=== PATIENT | female | born 1950 | race Caucasian/White ===

== ENCOUNTER → 2017-10-17 07:08 | Outpatient (CLI) | payer MEDICARE, BC, SELFPAY ==
[2017-10-17 07:27] LABS: Abs Immature Grans 0.03 k/cumm (0.0-0.09); HCT 41.2 % (36.0-46.0); HGB 13.4 g/dL (12.0-15.5); Mean Corp. HGB Concentration 32.5 g/dL (32.0-36.0); Mean Corpuscular Hemoglobin 29.5 pg (27.0-33.0); Mean Corpuscular Volume 90.5 fL (80-95); Mean Platelet Volume 9.9 fL (8.0-11.0); Platelet Count 195 x1000/uL (130-400); RBC 4.55 m/cumm (4.00-5.20)
[2017-10-17 07:38] LABS: ALT 24 U/L (12-78); AST 19 U/L (15-37); Albumin 3.5 g/dL (3.4-5.0); Alkaline Phosphatase 86 U/L (46-116); Anion Gap 9.2 mmol/L (3-11); BUN 14 mg/dL (7-18); Bilirubin, Total 0.4 mg/dL (0.2-1.0); CO2 28.8 mmol/L (21.0-32.0); CREATININE 0.83 mg/dL (0.55-1.02); Calcium 8.6 mg/dL (8.5-10.1); Chloride 101 mmol/L (98-107); Glucose 91 mg/dL (70-100); Potassium 4.1 mmol/L (3.5-5.1); Sodium 139 mmol/L (136-145); Total Protein 7.8 g/dL (6.4-8.2)
[2017-10-17 07:58] LABS: White Blood Cell Count 1.92 k/cumm (4.4-10.8)
[2017-10-17 07:59] LABS: Absolute Basophil Count 0.02 k/cumm (0.0-0.2); Absolute Lymphocyte Count 1.27 k/cumm (1.2-3.4); Absolute Monocyte Count 0.33 k/cumm (0.11-0.7); Absolute Neutrophil Count 0.25 k/cumm (1.2-6.7); Atypical Lymphocytes % 18
[2017-10-17 08:00] LABS: Diff Comment Manual Differential; RBC Morphology Normal
== END ==
PROVIDERS: PCP Family Medicine; Visit Provider Internal Medicine Hematology & Oncology
DX: D72.819 Decreased white blood cell count, unspecified (principal); D70.9 Neutropenia, unspecified; C91.Z0 Other lymphoid leukemia not having achieved remission
CPT/HCPCS: 36415; 80053; 85025

== ENCOUNTER 2018-08-07 08:15 | Outpatient (CLI) | payer MEDICARE, BC, SELFPAY ==
[2018-08-07 09:05] LABS: Absolute Eosinophil Count 0.01 k/cumm (0.0-0.7); Absolute Lymphocyte Count 1.14 k/cumm (1.2-3.4); Absolute Monocyte Count 0.49 k/cumm (0.11-0.7); Eosinophils % 0.5; HCT 42.3 % (36.0-46.0); HGB 13.5 g/dL (12.0-15.5); Lymphocytes % 59.7; Mean Corp. HGB Concentration 31.9 g/dL (32.0-36.0); Mean Corpuscular Hemoglobin 29.2 pg (27.0-33.0); Mean Corpuscular Volume 91.4 fL (80-95); Monocytes % 25.7; Neutrophils % 14.1; Platelet Count 196 x1000/uL (130-400); RBC 4.63 m/cumm (4.00-5.20); RBC Distribution Width 13.2 % (11.7-14.6)
[2018-08-07 09:21] LABS: Absolute Neutrophil Count 0.27 k/cumm (1.2-6.7); White Blood Cell Count 1.91 k/cumm (4.4-10.8)
[2018-08-07 09:22] LABS: Diff Comment Agrees w/ Instrument; RBC Morphology Normal
== END 2018-08-07 08:35 ==
PROVIDERS: PCP Family Medicine; Visit Provider Internal Medicine Hematology & Oncology
DX: D70.9 Neutropenia, unspecified (principal); C91.Z0 Other lymphoid leukemia not having achieved remission
CPT/HCPCS: 85025

== ENCOUNTER 2019-08-11 11:11 | Emergency (ER) | payer MEDICARE, BC, SELFPAY ==
[2019-08-11 11:23] VITALS: BP 145/72; PULSE 88; RESP 24; TEMP 36.7; O2SAT 96
--- NOTE | 2019-08-11 11:45 | DI.RAD_ITS ---
EXAM: XR PORTABLE CHEST AP CLINICAL HISTORY: fever. TECHNIQUE: 2D digital imaging was performed. COMPARISON: CR CHEST 2 VIEWS PA,LAT from 09/14/2013 FINDINGS: LUNGS: Clear. No pleural abnormality seen. HEART: Normal. MEDIASTINUM: Normal. OTHER FINDINGS: None. IMPRESSION: No acute pulmonary findings. DATA REPOSITORY: RADIATION DOSE DELIVERED:
--- NOTE | 2019-08-11 11:51 | W.ED.GENAD ---
Discharge Plan Disposition Patient Disposition: HOME Condition: Stable Discharge Details Chief Complaint: Abd Prob Clinical Impression: Colitis Primary Care Provider: Julia Chatterjee ED Provider: Caridad Ayoub Home Meds and New Rx's Prescriptions: No Action acetaminophen 500 mg Capsule 500 mg PO Q6H PRNRF: 0 Discharge Instructions Additional Instructions: Drink salty broths, pedialyte, gatorade or electrolyte containing fluids. advance diet as tolerated. Stay well-hydrated. Return for any concerns of dehydration. Avoid gluten. Your CT scan reveals colitis. You will need a colonoscopy for further evaluation of your bowel. Please follow-up with surgery to arrange for colonoscopy as discussed. Have recheck with your primary care doctor in the next 3 to 5 days for any persistence of your symptoms. Return to the emergency room for any worsening, alarming symptoms or increase in pain, persistent fevers or for worsening if needed sooner as discussed Referrals: Jocelynn Greene MD [ [facility] STAFF PHYSICIAN] - Discharge Data Discharge Date/Time-TO BE ENTERED AT DEPARTURE: 08/11/19 15:41 Medical Decision Making <ELBA Rodríguez - Last Filed: 08/15/19 21:25> This is a 68-year-old patient presenting to the emergency room for 2 days of malaise, fatigue, nausea and vomiting. Patient has described 4 episodes of vomiting. She did report some abdominal pain yesterday which has since resolved today. Patient does report several episodes of watery diarrhea. Patient reports feeling quite dehydrated and significantly fatigued. Does report abdominal pain which was diffuse yesterday which has since resolved. Patient does report blood tinged with diarrhea. Reports she felt she likely had a hemorrhoid. Denies any rectal pain. Of note patient is reporting significant fatigue. Patient does report concern of dehydration. Fevers reported for the last 2 days. Patient does report some sweats and tremulous sensation. Denies any obvious pain at this time. Patient's previous medical chart noted neutropenia. Patient reports she does [place] [facility] and is due for labs questioning a underlying leukemia. Denies history of treatment for leukemia. Denies daily meds. Patient denies any obvious covert exposures. Denies any rash. Denies dysuria, urgency or frequency of urination. Denies hematuria. No other concerns or complaints at this time. On initial evaluation of the patient patient is uncomfortable, patient does have notable abdominal pain with palpation. We will plan to obtain labs as well as CT imaging of patient's abdomen. Vital signs reviewed. Patient provided IV fluid. Patient's labs revealed leukopenia which patient is aware of, she has plan to follow [place] [facility] known leukopenia. Patient's electrolytes reveal no significant abnormality. Renal function normal. consistent with dehydration. Patient feeling significantly improved after IV fluid. Patient originally complaining of significant fatigue. Patient reports she is feeling much closer to her baseline. CT results revealed colitis of the rectum to sigmoid colon. Nothing to indicate complication based on CT results. Discussed CT results as well as labs with patient. Made patient aware of recommendation for colonoscopy to rule out possible ulcerative colitis or Crohn's on an outpatient basis. Will provide referral to surgeon and place patient on follow-up list. Patient prefers discharge home at this time as she does feel significantly improved. We will plan to promptly follow-up with PCP. We will continue rehydration orally and plan for bowel rest. Patient agrees with this plan of care. Patient stable and feels appropriate for discharge home. The patient was stable and requested discharge. Prior to discharge, my usual and customary return precautions were reviewed with the patient - this included follow-up instructions and reasons to return to the Emergency Department if conditions worsens, does not improve as expected, or other new concerns arise. <Jhon Bennett MD - Last Filed: 08/11/19 17:47> Patient seen, examined, discussed with Ms Ayoub. Agree with her assessment and plan of care. Reviewed CT with Dr. Man. There is evidence of colitis at the rectosigmoid. Note of small hepatic cyst that will require repeat CT scan in follow-up. Please see formal report. HPI <ELBA Rodríguez - Last Filed: 08/15/19 21:25> General Date/Time Provider Initiated Documentation: 08/11/19 11:14. HPI Narrative: This is a 68-year-old patient presenting to the emergency room for 2 days of malaise, fatigue, nausea and vomiting. Patient has described 4 episodes of vomiting. She did report some abdominal pain yesterday which has since resolved today. Patient does report several episodes of watery diarrhea. Patient reports feeling quite dehydrated and significantly fatigued. Denies obvious headache does report some dizziness when ambulating. Patient denies obvious vision change, blurred vision. Denies sore throat, chest pain with difficulty breathing shortness of breath or wheezing. No increase in respiratory effort. Denies any cough. Denies back pain. Does report abdominal pain which was diffuse yesterday which has since resolved. Patient does report blood with diarrhea. Reports she felt she likely had a hemorrhoid. Denies any rectal pain. Patient denies any lower extremity swelling. Of note patient is reporting significant fatigue. Fevers reported for the last 2 days. Patient does report some sweats and tremulous sensation. Denies any obvious pain at this time. Patient's previous medical chart noted neutropenia. Patient reports she does [place] [facility] and is due for labs questioning a underlying leukemia. Denies history of treatment for leukemia. Denies daily meds. Patient denies any obvious covert exposures. Denies any rash. Denies dysuria, urgency or frequency of urination. Denies hematuria. No other concerns or complaints at this time. Related Data Home Medications Medication Instructions Recorded Confirmed acetaminophen 500 mg PO Q6H PRN 08/12/19 08/12/19 Allergies Allergy/AdvReac Type Severity Reaction Status Date / Time gluten Allergy Unverified 08/12/19 13:36 methialate Allergy Severe blood Uncoded 08/12/19 13:36 poisoning General Stated Complaint: Abd Prob SNEHAL: 3 Review of Systems <ELBA Rodríguez - Last Filed: 08/15/19 21:25> All systems reviewed & are unremarkable except as noted in HPI and below PFSH <ELBA Rodríguez - Last Filed: 08/15/19 21:25> Medical History (Updated 08/15/19 @ 14:04 by Devora Esteban MD) Chronic leukopenia (Acute) Diarrhea (Acute) Fever and chills (Acute) Hx of chronic ulcerative colitis (Acute) Not on medications Large granular lymphocyte disorder (Acute) Surgical History (Updated 08/12/19 @ 20:04 by Alicia Hayes DO) History of bone marrow biopsy (Acute) 2016 [facility] [place] Hx of colonoscopy (Chronic) 2011 @ [facility] [place] Social History Smoking/Tobacco Use Status: Never Alcohol Intake: current Alcohol Intake frequency: a few times a week Alcohol type: hard liquor Drug use: Never Do you feel safe at home: Yes Do you feel safe in your relationship?: Yes Exam <ELBA Rodríguez - Last Filed: 08/15/19 21:25> Narrative Exam Narrative: CONST: Somnolent, in no acute distress. Alert and oriented x3. HENMT: Head nomocephalic, normal to inspection. Atraumatic. Hearing grossly normal. External ear canal no erythema or swelling. TM normal bilaterally. Nose normal to inspection. No rhinnorhea. Normal facial exam. Oral mucosa and tongue somewhat dry appearing mucous membranes. Dentition normal. Normal posterior oropharynx. Uvula midline. EYES: General normal appearance. Alignment normal. Eyelids normal. Conjunctiva normal. Sclera normal. PERRL. NECK: Normal visual inspection. FROM. No lymphadenopathy. Trachea midline. No Midline tenderness. CHEST: Normal insepection of the chest. RESP: Normal respiratory effort. Speaking full sentences. No cough. No wheezing. No retractions. Clear to auscaltation. Breath sound equal and present bilaterally. CARDIO: No JVD. Normal PMI. Regular Rate. Regular Rhythm. Normal peripheral pulses. GI: Normal inspection of abdomen. No distension. Soft. Nontender. Bowel sounds present in all 4 quadrants. No rebound. No gaurding. Guaiac positive MUSCULOSKELETAL: Normal Gait. FROM of all extremities. Distal neurovascularly intact. Sensation intact distally. SKIN: Normal. Dry. No rashes. NEURO: Alert and awake. Speech clear. Alert and oriented x 3. Speech is clear. Cranial nerves intact as tested III - XI. No visual field cuts. Normal heel-almeida test. No Nystagmus. Strength intact in all extremities. Sensation intact in all extremities. PSYCH: Normal affect. Cooperative. Course <ELBA Rodríguez - Last Filed: 08/15/19 21:25> Vital Signs Vital signs: Vital Signs Temperature 36.7 C 08/11/19 11:23 Pulse 88 08/11/19 11:23 Respiratory Rate 24 08/11/19 11:23 Blood Pressure 145/72 H 08/11/19 11:23 Pulse Oximetry 96 08/11/19 11:23 Temperature 36.7 C 08/11/19 11:23 Temperature Source Skin 08/11/19 11:23 Pulse 88 08/11/19 11:23 Respiratory Rate 24 08/11/19 11:23 Respiratory Effort Non-Labored 08/11/19 11:30 Blood Pressure 145/72 H 08/11/19 11:23 Blood Pressure Position Sitting 08/11/19 11:23 Pulse Oximetry 96 08/11/19 11:23 Oxygen Delivery Method Room Air 08/11/19 11:23 Oxygen Flow Rate 0 08/11/19 11:23 Pain Level 0 08/11/19 11:23
[2019-08-11] MEDS: Normal Saline 1,000 ML 1000 ML IV ×2 (11:57→13:57)
[2019-08-11 12:01] LABS: Lactate 0.9 mmol/L (0.6-1.4)
[2019-08-11 12:09] LABS: Bilirubin Negative (Negative); Blood Small (Negative); Clarity Clear (Clear); Glucose Negative (Negative); Ketones 40 mg/dL (Negative); Leukocyte Esterase Negative (Negative); Nitrite Negative (Negative); Specific Gravity 1.025 (1.005-1.025); Urobilinogen 0.2 EU/dL (Up TO 0.2); pH 5.5 (5-8)
[2019-08-11 12:20] LABS: ALT 23 U/L (14-59); AST 21 U/L (15-37); Albumin 3.6 g/dL (3.4-5.0); Alkaline Phosphatase 85 U/L (46-116); Anion Gap 8.2 mmol/L (3-11); BUN 10 mg/dL (7-18); Bilirubin, Total 0.7 mg/dL (0.2-1.0); CO2 27.8 mmol/L (21.0-32.0); CREATININE 0.92 mg/dL (0.55-1.02); Chloride 96 mmol/L (98-107); Glucose 129 mg/dL (74-106); Lipase 86 U/L (73-393); Potassium 3.7 mmol/L (3.5-5.1); Sodium 132 mmol/L (136-145); Total Protein 8.3 g/dL (6.4-8.2)
[2019-08-11 12:25] LABS: Epithelial Cells Rare HPF (Negative); Other Cells Few Transitional (Negative); WBC 0-2 HPF (0-5)
[2019-08-11 12:27] LABS: C & S Indicated? C&S Done As Ordered; Casts Negative LPF (Negative); Mucus Negative (Negative)
[2019-08-11 13:35] LABS: Abs Immature Grans 0.19 k/cumm (0.0-0.09); HCT 38.9 % (36.0-46.0); HGB 12.8 g/dL (12.0-15.5); Mean Corp. HGB Concentration 32.9 g/dL (32.0-36.0); Mean Corpuscular Hemoglobin 28.6 pg (27.0-33.0); Mean Corpuscular Volume 86.8 fL (80-95); Mean Platelet Volume 10.5 fL (8.0-11.0); RBC 4.48 m/cumm (4.00-5.20); RBC Distribution Width 12.9 % (11.7-14.6); White Blood Cell Count 2.82 k/cumm (4.4-10.8)
[2019-08-11 13:40] LABS: Absolute Lymphocyte Count 0.48 k/cumm (1.2-3.4); Absolute Monocyte Count 1.33 k/cumm (0.11-0.7); Absolute Neutrophil Count 0.93 k/cumm (1.2-6.7); Atypical Lymphocytes % 6
[2019-08-11 13:41] LABS: Diff Comment Manual Differential; Polychromasia Present
[2019-08-11] MEDS: Acetaminophen 500 MG TAB PO (13:57)
--- NOTE | 2019-08-11 14:10 | DI.CT_ITS ---
EXAM: CT ABDOMEN AND PELVIS W CLINICAL HISTORY: FEVER, DIARRHEA, ABD PAIN TECHNIQUE: CT examination of the abdomen and pelvis was performed with bolus infusion of 87 cc of Om nipaque 350. COMPARISON: No exams were available for comparison FINDINGS: Images obtained through the lung bases are unremarkable. There is a 16 millimeter in diameter low-attenuation right hepatic lobe lesion, this is indeterminate , possible hemangioma; follow-up multiphasic hepatic CT suggested to exclude neoplastic disease. Gallbladder and bile ducts are CT normal. Pancreas appears normal. Spleen appears normal. Adrenals and kidneys are unremarkable, no renal mass, hydronephrosis, nephrolithiasis, or ureterolithiasis. Urinary bladder appears normal. No abdominal or pelvic adenopathy seen. No abdominal wall hernia seen. Appendix is normal. There is marked wall edema of the rectosigmoid with some question of straightened featureless appeara nce of the colonic wall of the rectosigmoid region; this appearance could be seen in ulcerative colit is. The remainder of the colon has an unremarkable mucosal appearance. Note is made of apparent mil d edema of the wall of the terminal ileum; Crohn's disease would also have to be considered No evidence of obstruction. Remaining small and large bowel is unremarkable. FLIGHT ATTENDANT/INFLIGHT SUPERVISOR structures unremar kable for age. IMPRESSION: Colonic wall edema involving the rectosigmoid, somewhat featureless appearance of the distal colon is noted; this appearance may be seen in ulcerative colitis. Note is also made of mild edema of the wall of the terminal ileum; this could be seen in Crohn's ente ritis. Colonoscopy suggested for further evaluation.
[2019-08-11] MEDS: Omnipaque 350 MG/ML 100 ML BTL IJ (14:16)
[2019-08-11] MEDS: Normal Saline Flush 10 ML SYR IVP (14:18)
[2019-08-11 15:38] VITALS: TEMP 36.1
--- NOTE | 2019-08-11 15:46 | NUR.NOTE ---
Nursing Note: Referral sent to surgery
[2019-08-11 22:10] LABS: COVID-19 RT-PCR UVMMC Result Negative (Negative)
--- NOTE | 2019-08-12 13:07 | NUR.NOTE ---
Nursing Note: Patient's just called stating that after resting she woke up with uncontrolled shivering and a fever. Told to call if any problems or questions. Spoke with Neo Dowd RN and told him that the patient needed to be seen again due to the new symptoms. He stated he would bring her right up. Rhiannon Phillips.
== END 2019-08-11 15:41 | disposition home or self-care (01) ==
PROVIDERS: Emergency Provider Physician Assistant; PCP Family Medicine
DX: K52.89 Other specified noninfective gastroenteritis and colitis (principal); D70.9 Neutropenia, unspecified; R19.5 Other fecal abnormalities; R50.9 Fever, unspecified
CPT/HCPCS: 36415; 80053; 83690; 86850; 86900; 86901; 87040; 96360; 96361; 99285; U0003; 71045; 74177; 81003; 81015; 83605; 85025; 87086; 99284; J3490

== ENCOUNTER 2019-08-12 13:24 | Inpatient (IN) | payer MEDICARE, BC, SELFPAY ==
[2019-08-12] VITALS (31 sets, daily range): BP systolic 79–115; BP diastolic 40–70; PULSE 58–98; RESP 14–20; TEMP 36.4–39; O2SAT 93–98
--- NOTE | 2019-08-12 13:48 | W.ED.GENAD ---
Discharge Plan Disposition Patient Disposition: [facility] INPATIENT Condition: Stable Discharge Details Chief Complaint: Fever Clinical Impression: Ulcerative colitis Primary Care Provider: Julia Chatterjee ED Provider: John Bennett Home Meds and New Rx's Prescriptions: No Action acetaminophen 500 mg Capsule 500 mg PO Q6H PRNRF: 0 Medical Decision Making 68-year-old female who was seen in the emergency department yesterday with a history of 2 days of nausea, vomiting, malaise and watery diarrhea. She had laboratories and CT imaging, was diagnosed with colitis, felt improved and was discharged home. Through the night she developed a shaking chill and rigor with temperature to 102.2 degrees this morning. She is dehydrated in appearance, febrile, but vital signs are stable. She does not have subjective nor objective evidence of abdominal discomfort. IV placed, fluids initiated, patient given antipyretic. Laboratories including blood cultures and lactate obtained. 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 Records also note diagnosis of ulcerative colitis around 2011. Patient has a mildly elevated lactic acidosis. The remainder of her laboratories reveal a white count is risen to 3.2, hematocrit 35.9, platelets 141. Sodium 131, potassium 3.5, chloride 97, bicarb 24. Renal function is unremarkable. Note of CRP greater than 25. Finally, note is made of negative COVID screen performed yesterday. Given the concern for bacteremia in the setting of an exacerbation of ulcerative colitis, antibiotics were initiated with ciprofloxacin and Flagyl. The patient will benefit from medical admission and may need flexible sigmoidoscopy with possible biopsy. I did discuss the case with Dr. Multani as well as Dr. Hayes who is in agreement with admission and management. Lab Data Lab results reviewed: Yes I reviewed the patient's lab results. HPI General Mode of arrival: ambulatory. Date/Time Provider Initiated Documentation: 08/12/19 13:32. Limitations to Documentation: no limitations. Information obtained by: patient and family. History of Present Illness 68 year old F presents to the emergency department with the chief complaint of Diagnosed with colitis yesterday, shaking chills and fever today., described as moderate, Patient started experiencing this hour(s) and it has been intermittent. No relieving factors improve symptom(s), No exacerbating factors reported . Patient notes fever/chills and weakness; denies cough and syncope. Patient did receive the following treatments prior to arrival, other (Tylenol at 3 in the morning) Related Data Home Medications Medication Instructions Recorded Confirmed acetaminophen 500 mg PO Q6H PRN 08/12/19 08/12/19 Allergies Allergy/AdvReac Type Severity Reaction Status Date / Time gluten Allergy Unverified 08/12/19 13:36 methialate Allergy Severe blood Uncoded 08/12/19 13:36 poisoning General Stated Complaint: Fever SNEHAL: 2 Review of Systems Narrative: 7 systems reviewed and otherwise negative. COVID-19 PCR negative yesterday [facility] Social History Smoking/Tobacco Use Status: Never Alcohol Intake: current Alcohol Intake frequency: a few times a week Alcohol type: hard liquor Drug use: Never Do you feel safe at home: Yes Do you feel safe in your relationship?: Yes Exam Narrative Exam Narrative: GEN: awake, alert, oriented 3. Pleasant, well groomed, interactive. HEAD: Normocephalic, atraumatic ENT: oropharynx with dry mucous membranes, External ear exam unremarkable EYES: PERRL, EOMI NECK: Full ROM, no ELIZA, no menigismus CHEST/RESP: Nontender, clear to auscultation bilateral, no wheeze/rhonchi/rales CARDIOVASCULAR: Borderline tachycardia RRR, no murmur, rub marietta. 2+ Rad pulse bilateral ABDOMEN: Soft, nontender, no mass. +Bowel sounds EXT: Full ROM, no edema, no rash Neuro: Grossly normal neurologic exam, conversant, interactive. Psych: Speech fluent, thoughts congruent, affect normal Course Vital Signs Vital signs: Vital Signs Temperature 39.0 C H 08/12/19 13:31 Pulse 98 H 08/12/19 13:31 Respiratory Rate 08/12/19 13:31 Blood Pressure 115/60 08/12/19 13:31 Pulse Oximetry 94 L 08/12/19 13:31 Temperature 39.0 C H 08/12/19 13:31 Temperature Source Oral 08/12/19 13:31 Pulse 98 H 08/12/19 13:31 Respiratory Rate 20 08/12/19 13:31 Respiratory Effort Non-Labored 08/12/19 13:34 Blood Pressure 115/60 08/12/19 13:31 Blood Pressure Position Supine 08/12/19 13:31 Pulse Oximetry 94 L 08/12/19 13:31 Oxygen Delivery Method Room Air 08/12/19 13:31 Oxygen Flow Rate 0 08/12/19 13:31 Pain Level 0 08/12/19 13:31
[2019-08-12 14:16] LABS: HCT 35.9 % (36.0-46.0); HGB 11.7 g/dL (12.0-15.5); Mean Corp. HGB Concentration 32.6 g/dL (32.0-36.0); Mean Corpuscular Hemoglobin 28.5 pg (27.0-33.0); Mean Corpuscular Volume 87.6 fL (80-95); Platelet Count 141 x1000/uL (130-400); RBC Distribution Width 13.1 % (11.7-14.6); White Blood Cell Count 3.29 k/cumm (4.4-10.8)
[2019-08-12 14:20] LABS: Lactate 2.7 mmol/L (0.6-1.4)
[2019-08-12] MEDS: Normal Saline 1,000 ML 1000 ML IV (14:25)
[2019-08-12] MEDS: Acetaminophen 500 MG TAB 1000 MG PO (14:30)
[2019-08-12] MEDS: Normal Saline Flush 10 ML SYR IVP (14:32)
[2019-08-12] MEDS: CIPROFLOXACIN 400 MG/200 ML BAG 200 MG IVPB (14:32)
[2019-08-12 14:36] LABS: ALT 32 U/L (14-59); AST 33 U/L (15-37); Alkaline Phosphatase 78 U/L (46-116); Anion Gap 9.3 mmol/L (3-11); BUN 10 mg/dL (7-18); Bilirubin, Total 1.1 mg/dL (0.2-1.0); CO2 24.7 mmol/L (21.0-32.0); CREATININE 0.93 mg/dL (0.55-1.02); Calcium 8.7 mg/dL (8.5-10.1); Chloride 97 mmol/L (98-107); Glucose 112 mg/dL (74-106); Magnesium 1.5 mg/dL (1.8-2.4); Potassium 3.5 mmol/L (3.5-5.1); Sodium 131 mmol/L (136-145); Total Protein 7.2 g/dL (6.4-8.2)
[2019-08-12 14:44] LABS: Absolute Lymphocyte Count 0.16 k/cumm (1.2-3.4); Absolute Neutrophil Count 3.13 k/cumm (1.2-6.7); Diff Comment Manual Differential; RBC Morphology Normal
[2019-08-12 14:52] LABS: C-Reactive Protein > 25.00 mg/dL (0.0-0.3)
[2019-08-12] MEDS: metroNIDAZOLE 500 MG/100 ML BAG 100 MG IVPB ×2 (15:45→21:46)
[2019-08-12] MEDS: Normal Saline 1,000 ML 150 ML IV (15:50)
--- NOTE | 2019-08-12 15:57 | NUR.NOTE ---
pt given dry toast - gluten free Nursing Note:
[2019-08-12] MEDS: methylPREDNISolone SUCC 40 MG VIAL 20 MG IVP ×2 (16:11→23:59)
--- NOTE | 2019-08-12 16:13 | W.SURGCON ---
Date of service: 08/12/19 Time of Service: 16:13 Assessment and Plan Assessment and plan (1) Large granular lymphocyte disorder: Status: Acute Assessment and plan: need to d/w w/H-O and see if need to give Neulasta prior to procedure. (2) Colitis: Status: Acute Assessment and plan: seen on CT CRP>25 pt hx pt s/s are diff than last time- no bleeding. (3) Ulcerative colitis: Status: Chronic Assessment and plan: pt has not had any s/s since 2011 abx steriods plan was to do flex and bx in am. Will need to contact H-O to see if need to give Neulasta prior to procedure. Unclear if this truly represents colitis, or infection from leukopenia simply to due the fact she has low leuk #. steriods will help bone marrow produce cells as well. (4) Chronic leukopenia: Status: Acute (5) Fever and chills: Status: Acute (6) Diarrhea: Status: Acute History of Present Illness Narrative: This is pt second visit to ED in 2 days. history of 2 days of nausea, vomiting, malaise and watery diarrhea. She was seen adn evaluated in the ED and sent back home. Through the night she developed a shaking chill and rigor with temperature to 102.2 degrees this morning. She has no n/v. She is tolerating toast in the ED. She has no rectal bleeding. She has no abdominal pain. She has not done any traveling lately. No one else at home is ill. She has not been on recent abx. No wt loss. She does have a Hx of UC. Her s/s when she had UC was abdominal pain, and bloody diarrhea. She treated this w/ Markel enemas. SHe does have a hx of LGL- [facility] [place] is calling it leukemia. She has remained asymp.- no infections or fevers. Now she has been having a fever and possible infection on CT. Hem-Onc recommended that you she have a dose of neulasta 24 hrs prior to the CE, to boost her leukocyte count, to boost her count & avoid sepsis. It is unsure if she was unable to mount a wbc/leukocyte count and isn't more sick than she is. CRP is >25. We do have her on abx and steroids. We will contact in hem-onc to see if she requires the neulasta prior to flex sig/Bx. Consults Consult date: 08/12/19 Requesting physician: Donnie Multani Review of Systems All systems reviewed & are unremarkable except as noted in HPI and below [facility] Medical History (Updated 08/12/19 @ 20:12 by Alicia Hayes DO) Chronic leukopenia (Acute) Diarrhea (Acute) Fever and chills (Acute) Hx of chronic ulcerative colitis (Acute) Not on medications Large granular lymphocyte disorder (Acute) Surgical History (Updated 08/12/19 @ 20:04 by Alicia Hayes DO) History of bone marrow biopsy (Acute) 2017 [facility] [place] Hx of colonoscopy (Chronic) 2011 @ [facility] [place] Social History Smoking/Tobacco Use Status: Never Alcohol Intake: current Alcohol Intake frequency: a few times a week Alcohol type: hard liquor Drug use: Never Do you feel safe at home: Yes Do you feel safe in your relationship?: Yes Exam Const General: cooperative, healthy appearing, comfortable, no acute distress, well developed and well groomed Nutritional Appearance: average body habitus and well nourished Orientation: alert, awake and oriented x3 HENMT Head: normal to inspection, normocephalic and atraumatic Ears: hearing grossly normal bilaterally and external ears normal General nose exam: external nose normal Face and sinus: normal facial exam and sinuses nontender Mouth: oral mucosae normal, lip normal, tongue normal and moist mucous membranes Teeth and gingiva: dentition normal Eyes General: appearance normal, both eyes and all related structures Conjunctivae: conjunctivae normal Sclera: sclerae normal Pupils: PERRL Neck Neck: normal visual inspection and full ROM Chest Chest: normal inspection of the chest Resp Effort & Inspection: normal respiratory effort, able to speak in complete sentences, no cough, no nasal flaring, not tachypneic and no use of accessory muscles Auscultation: clear to auscultation bilaterally, no rales, no rhonchi and no wheezes Cardio Jugular venous pressure: no JVD Rate: regular rate Rhythm: regular rhythm GI Inspection: normal to inspection, no edema and non-distended Palpation: soft, no masses, nontender and No ascites Auscultation: normal bowel sounds Other: no peritonis. Skin General skin exam: no rashes or lesions noted Trauma: no lacerations or abrasions Neuro General: patient alert, patient oriented x3, oriented, gait normal, moves all extremities, no focal motor deficits and CN's II-XI intact bilaterally Cognition: normal cognition Speech: speech normal Gait: normal gait Motor: muscle tone normal throughout Extrem General: normal to inspection, full ROM and no clubbing, cyanosis or edema Psych Appearance: grossly normal and well kempt Mental Status: mental status grossly normal Speech and Movement: speech and movement normal Affect: normal affect Results Last Vital Signs Temp 36.9 C 08/12/19 16:01 Pulse 86 08/12/19 16:01 Resp 14 08/12/19 16:01 BP 93/55 L 08/12/19 16:01 Pulse Ox 97 08/12/19 16:10 Labs Result diagrams: 08/12/19 13:50 08/12/19 13:50 Labs: Laboratory Results - last 24 hr 08/12/19 08/12/19 08/12/19 13:50 13:50 13:50 WBC 3.29 L RBC 4.10 Hgb 11.7 L Hct 35.9 L MCV 87.6 MCH 28.5 MCHC 32.6 RDW 13.1 Plt Count 141 MPV 10.0 Immature Gran % 0.0 Neutrophils % 86.0 Band Neutrophils % 9.0 Lymphocytes % 5.0 Monocytes % 0.0 Eosinophils % 0.0 Basophils % 0.0 Absolute Neutrophils 3.13 Absolute Lymphocytes 0.16 L Absolute Monocytes 0.00 L Absolute Eosinophils 0.00 Absolute Basophils 0.00 Differential Comment Manual differential RBC Morphology Normal Sodium 131 L Potassium 3.5 Chloride 97 L Carbon Dioxide 24.7 Anion Gap 9.3 BUN 10 Creatinine 0.93 Estimated GFR/1.73 m2 >= 60.00 Glucose 112 H Lactate 2.7 H* Calcium 8.7 Magnesium 1.5 L Total Bilirubin 1.1 H AST 33 ALT 32 Alkaline Phosphatase 78 C-Reactive Protein Total Protein 7.2 Albumin 3.0 L 08/12/19 13:50 WBC RBC Hgb Hct MCV MCH MCHC RDW Plt Count MPV Immature Gran % Neutrophils % Band Neutrophils % Lymphocytes % Monocytes % Eosinophils % Basophils % Absolute Neutrophils Absolute Lymphocytes Absolute Monocytes Absolute Eosinophils Absolute Basophils Differential Comment RBC Morphology Sodium Potassium Chloride Carbon Dioxide Anion Gap BUN Creatinine Estimated GFR/1.73 m2 Glucose Lactate Calcium Magnesium Total Bilirubin AST ALT Alkaline Phosphatase C-Reactive Protein > 25.00 H Total Protein Albumin
--- NOTE | 2019-08-12 16:16 | HPE_ITS ---
Date of service: 08/12/19 Time of Service: 16:16 Assessment and Plan Assessment and plan (1) Colitis: Status: Acute Assessment and plan: With past history of ulcerative colitis this is probably most likely related to inflammatory bowel disease. Unclear if this is all related to autoimmune or if there is an infectious component as well. No exposure history to suggest a purely infectious colitis. Worry about possible mucosal disruption from chronic inflammation from ulcerative colitis leading to bacteremia. From a diagnostic standpoint await outcome of blood culture. To have sigmoidoscopy tomorrow for gross and histologic evaluation. Therapeutically continue with parenteral antibiotics and I am starting parenteral steroids. For future reference, if ulcerative colitis confirmed, she reports that when first diagnosed with ulcerative colitis she did not do well with enema based therapy. (2) Chronic leukopenia: Status: Acute Assessment and plan: Not neutropenic but does have lymphopenia. I do not think this alters management decisions for the above problem. (3) Hyponatremia: Status: Acute Assessment and plan: Mild hyponatremia. I am not initiating work-up at this point, monitor sodium level with IV hydration. (4) Hypomagnesemia: Status: Acute Assessment and plan: Probably from GI loss. Supplement intravenously and recheck magnesium tomorrow. History of Present Illness History of Present Illness Chief Complaint: Chills and fever, nausea, vomiting and loose stools Narrative: 68-year-old woman with a remote history of ulc erative colitis, apparently in remission for over a decade, presented to the emergency room yesterday complaining of 2 days of subjective fever, nausea, loose stools malaise and vomiting. Had not been able to eat much for 2 days. Not much in the way of abdominal pain nor any major change in her bowel pattern?occasional blood that she attributes to hemorrhoid, occasional loose stool. Evaluation yesterday notable for CT scan of the abdomen showing changes of distal colitis and possible inflammatory changes in the distal ileum. She received IV hydration and was discharged home with instructions to return for worsening symptoms and to arrange for outpatient colonoscopy. At home she continued to have poor appetite nausea somewhat loose stools and then developed temperature of 102.2 with chills and rigors. In the ER again did not have an acute abdomen. Her chronically low white blood cell count was a little higher. She was indeed febrile, had an elevated lactate, low magnesium and mildly depressed sodium. She did not have repeat imagings. Blood cultures were drawn. She is being admitted with concerns for exacerbation of ulcerative colitis with possible bacteremia. She was COVID-19 negative on testing done yesterday. No recent travel. Nothing unusual in her diet although did eat out for the first time in months a week before onset of symptoms. Her with whom she lives has had no GI symptoms. She has had no abdominal surgeries. Her last colonoscopy was at [facility] June 2011 at which time diagnosis was made. Treated with Rowasa enemas which she did not find helpful and has been more or less asymptomatic since. Has been on and off a gluten-free diet although per [facility] records celiac testing negative. Recently evaluated by bone char operator with stool and saliva test. She has not yet had the appointment to go over the results. Review of Systems Narrative: Rarely has fever. No problems with dry eyes but does have frequent dry mouth but no recurrent mouth sores. No recurrent rashes. Occasional arthralgias depending upon recent activities but no swollen red or painful joints. No cough or wheeze. No pleuritic chest pain. No hematemesis. No dysuria or hematuria. No vaginal discharge or bleeding. No ankle swelling. No large bruises or bleeding. No night sweats. Weight has been stable. [facility] Medical History (Updated 08/12/19 @ 16:19 by Donnie Multani MD) Chronic leukopenia (Acute) Social History Smoking/Tobacco Use Status: Never Alcohol Intake: current Alcohol Intake frequency: a few times a week Alcohol type: hard liquor Drug use: Never Do you feel safe at home: Yes Do you feel safe in your relationship?: Yes Meds Home Medications and Allergies Home Medications Medication Instructions Recorded Confirmed Type acetaminophen 500 mg PO Q6H PRN 08/12/19 08/12/19 History Allergies Allergy/AdvReac Type Severity Reaction Status Date / Time gluten Allergy Unverified 08/12/19 13:36 methialate Allergy Severe blood Uncoded 08/12/19 13:36 poisoning Exam Narrative Exam Narrative: Woman appearing younger than her chronologic age in no acute di stress. Skin without bruising or petechiae. Sclera clear. No oral lesions visible. No cervical adenopathy or thyromegaly. Lungs clear. No heart murmur S3 or S4. Bowel sounds present but somewhat diminished. No tenderness to palpation in any quadrant. Pelvic and rectal exams were not performed. Extremities warm with good pulses distally. Symmetric movement of all extremities. Normal DTRs. Sits up unassisted with no ataxia. Oriented x4. Results CT scan abdomen and pelvis performed 08/11/2019: IMPRESSION: Colonic wall edema involving the rectosigmoid, somewhat featureless appearance of the distal colon is noted; this appearance may be seen in ulcerative colitis. Note is also made of mild edema of the wall of the terminal ileum; this could be seen in Crohn's enteritis. Colonoscopy suggested for further evaluation. Labs Result diagrams: 08/12/19 13:50 08/12/19 13:50 Labs: Laboratory Results - last 24 hr 08/12/19 08/12/19 08/12/19 13:50 13:50 13:50 WBC 3.29 L RBC 4.10 Hgb 11.7 L Hct 35.9 L MCV 87.6 MCH 28.5 MCHC 32.6 RDW 13.1 Plt Count 141 MPV 10.0 Immature Gran % 0.0 Neutrophils % 86.0 Band Neutrophils % 9.0 Lymphocytes % 5.0 Monocytes % 0.0 Eosinophils % 0.0 Basophils % 0.0 Absolute Neutrophils 3.13 Absolute Lymphocytes 0.16 L Absolute Monocytes 0.00 L Absolute Eosinophils 0.00 Absolute Basophils 0.00 Differential Comment Manual differential RBC Morphology Normal Sodium 131 L Potassium 3.5 Chloride 97 L Carbon Dioxide 24.7 Anion Gap 9.3 BUN 10 Creatinine 0.93 Estimated GFR/1.73 m2 >= 60.00 Glucose 112 H Lactate 2.7 H* Calcium 8.7 Magnesium 1.5 L Total Bilirubin 1.1 H AST 33 ALT 32 Alkaline Phosphatase 78 C-Reactive Protein Total Protein 7.2 Albumin 3.0 L 08/12/19 13:50 WBC RBC Hgb Hct MCV MCH MCHC RDW Plt Count MPV Immature Gran % Neutrophils % Band Neutrophils % Lymphocytes % Monocytes % Eosinophils % Basophils % Absolute Neutrophils Absolute Lymphocytes Absolute Monocytes Absolute Eosinophils Absolute Basophils Differential Comment RBC Morphology Sodium Potassium Chloride Carbon Dioxide Anion Gap BUN Creatinine Estimated GFR/1.73 m2 Glucose Lactate Calcium Magnesium Total Bilirubin AST ALT Alkaline Phosphatase C-Reactive Protein > 25.00 H Total Protein Albumin Last Vital Signs Temp 36.9 C 08/12/19 16:01 Pulse 86 08/12/19 16:01 Resp 14 08/12/19 16:01 BP 93/55 L 08/12/19 16:01 Pulse Ox 97 08/12/19 16:10 COVID-19 Screening In the past 14 days, have you traveled outside of [place] or [place]?: NO Had IN PERSON contact w/suspected or confirmed C-19 person: No
[2019-08-12] MEDS: POTASSIUM CHLORIDE/0.9% NACL 1,000 ML 150 MEQ IV (17:18)
[2019-08-12] MEDS: MAGNESIUM SULFATE 2 GM/50 ML BAG IVPB (17:22)
[2019-08-12] MEDS: Enoxaparin 40 MG/0.4 ML SYR SC (17:22)
[2019-08-13] VITALS (8 sets, daily range): BP systolic 97–119; BP diastolic 55–75; PULSE 49–64; RESP 16–20; TEMP 36–37.4; O2SAT 96–98
[2019-08-13] MEDS: POTASSIUM CHLORIDE/0.9% NACL 1,000 ML 150 MEQ IV ×3 (00:55→21:04)
[2019-08-13] MEDS: CIPROFLOXACIN 400 MG/200 ML BAG 200 MG IVPB ×2 (02:13→14:17)
[2019-08-13] MEDS: metroNIDAZOLE 500 MG/100 ML BAG 100 MG IVPB ×4 (03:46→21:04)
[2019-08-13 06:53] LABS: HCT 34.5 % (36.0-46.0); HGB 11.1 g/dL (12.0-15.5); Mean Corp. HGB Concentration 32.2 g/dL (32.0-36.0); Mean Corpuscular Hemoglobin 28.2 pg (27.0-33.0); Mean Corpuscular Volume 87.8 fL (80-95); Mean Platelet Volume 10.1 fL (8.0-11.0); Platelet Count 124 x1000/uL (130-400); RBC 3.93 m/cumm (4.00-5.20); RBC Distribution Width 13.3 % (11.7-14.6); White Blood Cell Count 12.21 k/cumm (4.4-10.8)
[2019-08-13 06:59] LABS: Magnesium 2.3 mg/dL (1.8-2.4)
[2019-08-13 07:05] LABS: Anion Gap 8.6 mmol/L (3-11); BUN 9 mg/dL (7-18); CO2 23.4 mmol/L (21.0-32.0); CREATININE 0.76 mg/dL (0.55-1.02); Calcium 8.4 mg/dL (8.5-10.1); Chloride 104 mmol/L (98-107); Glucose 121 mg/dL (74-106); Potassium 4.2 mmol/L (3.5-5.1); Sodium 136 mmol/L (136-145)
[2019-08-13 07:15] LABS: C-Reactive Protein > 25.00 mg/dL (0.0-0.3)
[2019-08-13] MEDS: methylPREDNISolone SUCC 40 MG VIAL 20 MG IVP ×3 (08:04→23:25)
[2019-08-13] MEDS: Normal Saline Flush 10 ML SYR IVP ×2 (08:04→16:59)
--- NOTE | 2019-08-13 09:45 | PHA.REVIEW ---
Pharmacy Admission Review - Admission Clinical Review (Last Updated 08/12/19 @ 20:12 by Alicia Hayes DO) Diarrhea (Acute) Fever and chills (Acute) Large granular lymphocyte disorder (Acute) Hypomagnesemia (Acute) Hyponatremia (Acute) Chronic leukopenia (Acute) Colitis (Acute) gluten Allergy (Unverified 08/12/19 13:36) methialate Allergy (Severe, Uncoded 08/12/19 13:36) blood poisoning Height 5 ft 3 in Weight 62.142 kg - Comments Comments/Follow Ups: Gram Negative bacteremia -- Cipro 400mg IV q12 plus flagyl q6h - Renal Dosing Renal Dosing: BUN 9 mg/dL (7-18) 08/13/19 06:30 Creatinine 0.76 mg/dL (0.55-1.02) 08/13/19 06:30 Medications needing adjustments: Reviewed - Anticoagulation Anticoagulation: Hgb 11.1 g/dL (12.0-15.5) L 08/13/19 06:30 Hct 34.5 % (36.0-46.0) L 08/13/19 06:30 Plt Count 124 x1000/uL (130-400) L 08/13/19 06:30 Creatinine 0.76 mg/dL (0.55-1.02) 08/13/19 06:30 DVT Prohphylaxis: Reviewed Medications: Enoxaparin Therapeutic Anticoagulation: N/A - Opiate Usage Evaluate Pain Scale/Pains Meds: N/A Scheduled Bowel Reg ordered if on Opiates?: No - Relevant Labs Sodium 136 mmol/L (136-145) 08/13/19 06:30 Potassium 4.2 mmol/L (3.5-5.1) 08/13/19 06:30 Chloride 104 mmol/L (98-107) 08/13/19 06:30 Magnesium 2.3 mg/dL (1.8-2.4) 08/13/19 06:30 C-Reactive Protein > 25.00 mg/dL (0.0-0.3) H 08/13/19 06:30 Electrolytes, C-Reactive P, ESR: Reviewed (CRP level consistent with chronic inflammation due to UC) - DM Control DM Control: Glucose 121 mg/dL (74-106) H 08/13/19 06:30 Insulin Dosing: N/A - Heart Failure/HI EF%, ANGY's, B-Blockers, Diuretics: N/A - BP Control BP Control: Blood Pressure 107/69 Blood Pressure 111/72 Blood Pressure 107/68 Blood Pressure 109/70 If elevated: Reviewed - Qtc Review If Elevated: N/A - IV to PO Switch IV Medications: Reviewed (currently NPO awaiting colonoscopy) - Home Meds Home Med List reviewed: Reviewed - Current meds Current Medication Order Review: Reviewed
[2019-08-13 10:36] LABS: Abs Immature Grans 0.27 k/cumm (0.0-0.09)
[2019-08-13 11:12] LABS: Absolute Lymphocyte Count 0.73 k/cumm (1.2-3.4); Absolute Neutrophil Count 10.38 k/cumm (1.2-6.7)
[2019-08-13 11:13] LABS: Absolute Monocyte Count 0.85 k/cumm (0.11-0.7); Diff Comment Manual Differential; Polychromasia Present
--- NOTE | 2019-08-13 11:16 | PDOC.CMIN ---
- If Service Date Differs Date of service: 08/13/19 Time of Service: 11:16 Care Management Initial Assess REASON FOR HOSPITALIZATION:: Fever, Colitis PAST MEDICAL HISTORY/PAST SURGICAL HISTORY:: Medical History (Updated 08/12/19 @ 16:19 by Donnie Multani MD). Chronic leukopenia (Acute) PREVIOUS FUNCTIONAL STATUS/SOCIAL/FAMILY SUPPORTS:: Leti lives in [facility] with her , Montez. 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 She is indpendent at baseline. CURRENT FUNCTIONAL STATUS:: Leti was sitting up in the chair when CM met with her. She reported that she was feeling much better than when she arrived. She stated that her diet is being advanced today at dinner time, which she is happy about, as she has not been eating much for the past few days. She stated that, per MD, she may be ready for discharge tomorrow. CM will continue to follow. ADVANCE DIRECTIVES:: None on file. Has patient been provided with information about the portal?: No Did the patient sign up for the portal?: No CODE STATUS:: Full Code INSURANCE COVERAGE / FINANCIAL ISSUES:: FIELD [facility]/ [employer] CURRENT HOME/COMMUNITY SERVICES/EQUIPMENT:: No current services or equipment. PRIMARY CARE PHYSICIAN:: Julia Chatterjee POTENTIAL DISCHARGE NEEDS:: Evaluations for further needs, follow up appointments PATIENT/FAMILY EDUCATION NEEDS:: Review discharge instructions regarding activity levels and medications, discussion of self care needs including ask me three ANTICIPATED BARRIERS TO DISCHARGE:: None identified at this time. TRANSPORTATION:: Via private vehicle by family. PLAN:: Anticipate Leti will return home with no additional services once she is medically cleared. She will follow up with her PCP, as recommended. Her will drive her home when ready via private vehicle. CM will continue to follow.
--- NOTE | 2019-08-13 11:56 | BOWEL_PTH ---
PATIENT: Leti Parry LOC: U#:[id number] AGE/SX: 68/F ROOM: 205 RE08/12/[address]: Devora Esteban : 1950 BED: A DIS: 08/17/2019 SPEC #: [id number] RECD: 08/13/19 13:10 STATUS: KARISHMA REQ #: [id number] YAMILE: 08/13/19 11:[address]: Donnie Multani DEPT: Surgical Specimen RECD BY: Radha Vickers ENTERED: 08/13/19 13:11 SP TYPE: Bowel OTHR DR: Julia Chatterjee Tissues: 1 - BIOPSY BOWEL Procedures: GROSS AND MICRO LEVEL 4 Comments: [id number]
--- NOTE | 2019-08-13 12:07 | W.COLOREPORT ---
Date of service: 08/13/19 Time of Service: 12:07 Colonoscopy Report Date of procedure: 08/13/19 Pre-op diagnosis general: hx of UC. rectal pain and diarrhea. abnl CT Post-op diagnosis procedure note: other (uc proctitis ) Procedure: flex sig and bx of rectum and small rectal polyp Surgeon: Alicia Hayes Anesthesia proc note operative: MAC Estimated blood loss (mL): 2 Pathology: other Complications: None Disposition: floor Prep: Other Procedure Description: After informed consent was obtained the patient was taken to the procedure room and placed in a left decubitous position. Monitors were applied and a time out was done. The patients name, date of , procedure, allergies to medications and metal in their body was reviewed. The patient was then sedated. Once sedated and comfortable a rectal exam was done. External exam shows mild excoriation. Internal exam revealed a normal sphincter tone and no palpable masses. The scope was then introduced and retrofelexed. no internal hemorrhoids were identified. Mucosa is erythematous and edematous. There are multiple linear erosions/ulcerations. The scope was then advanced to 30cm. The mucosa is still red/swollen. The ulcerations are less, but still present. The prep was good. Bx were taken in the rectum. The tissue is very friable and bleeds readily. There was a small polyp that was removed as well w/ cold forceps. The scope was removed and the patient was woken up and taken back to Same day surgery in stable condition. The patient tolerated the procedure well and there were no immediate complications. Follow up: The patient will need to have a full repeat CE once this acute episode is resolved.
--- NOTE | 2019-08-13 12:19 | W.PM.PROGNOT ---
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 baker about doing pre_op Neulast- she is on steriods and WBC and neut count are elevated today. She is on abx as well- cipro/flagyl. He did not think that she required Neulasta pre-procedure. We are only doing a flx-sig and limted exam and bx today, so the risk of translocation is not as high as w/ a full CE. pt stable for procedure. (3) Chronic leukopenia: Status: Acute Subjective Subjective Interval history since last seen: pt looks more comfortable than last pm. Objective Objective Clinical Data: Abnormal lab results 08/12/19 08/12/19 08/12/19 Range/Units 13:50 13:50 13:50 WBC 3.29 L (4.4-10.8) k/cumm RBC (4.00-5.20) m/cumm Hgb 11.7 L (12.0-15.5) g/dL Hct 35.9 L (36.0-46.0) % Plt Count (130-400) x1000/uL Absolute Neutrophils (1.2-6.7) k/cumm Absolute Lymphocytes 0.16 L (1.2-3.4) k/cumm Absolute Monocytes 0.00 L (0.11-0.7) k/cumm Sodium 131 L (136-145) mmol/L Chloride 97 L (98-107) mmol/L Glucose 112 H (74-106) mg/dL Lactate 2.7 H* (0.6-1.4) mmol/L Calcium (8.5-10.1) mg/dL Magnesium 1.5 L (1.8-2.4) mg/dL Total Bilirubin 1.1 H (0.2-1.0) mg/dL C-Reactive Protein (0.0-0.3) mg/dL Albumin 3.0 L (3.4-5.0) g/dL 08/12/19 08/13/19 08/13/19 Range/Units 13:50 06:30 06:30 WBC (4.4-10.8) k/cumm RBC (4.00-5.20) m/cumm Hgb (12.0-15.5) g/dL Hct (36.0-46.0) % Plt Count (130-400) x1000/uL Absolute Neutrophils (1.2-6.7) k/cumm Absolute Lymphocytes (1.2-3.4) k/cumm Absolute Monocytes (0.11-0.7) k/cumm Sodium (136-145) mmol/L Chloride (98-107) mmol/L Glucose 121 H (74-106) mg/dL Lactate (0.6-1.4) mmol/L Calcium 8.4 L (8.5-10.1) mg/dL Magnesium (1.8-2.4) mg/dL Total Bilirubin (0.2-1.0) mg/dL C-Reactive Protein > 25.00 H > 25.00 H (0.0-0.3) mg/dL Albumin (3.4-5.0) g/dL 08/13/19 Range/Units 06:30 WBC 12.21 H D (4.4-10.8) k/cumm RBC 3.93 L (4.00-5.20) m/cumm Hgb 11.1 L (12.0-15.5) g/dL Hct 34.5 L (36.0-46.0) % Plt Count 124 L (130-400) x1000/uL Absolute Neutrophils 10.38 H (1.2-6.7) k/cumm Absolute Lymphocytes 0.73 L (1.2-3.4) k/cumm Absolute Monocytes 0.85 H (0.11-0.7) k/cumm Sodium (136-145) mmol/L Chloride (98-107) mmol/L Glucose (74-106) mg/dL Lactate (0.6-1.4) mmol/L Calcium (8.5-10.1) mg/dL Magnesium (1.8-2.4) mg/dL Total Bilirubin (0.2-1.0) mg/dL C-Reactive Protein (0.0-0.3) mg/dL Albumin (3.4-5.0) g/dL Vital Signs Temperature 37.2 C 08/13/19 11:10 Temperature Source Tympanic 08/13/19 11:10 Pulse 64 08/13/19 11:10 Pulse Rhythm Regular 08/13/19 07:45 Respiratory Rate 20 08/13/19 11:10 Respiratory Effort 08/13/19 07:45 Respiratory Depth Normal 08/13/19 07:45 Respiratory Pattern Normal 08/13/19 07:45 Blood Pressure 116/70 08/13/19 11:10 Blood Pressure Mean 64 08/12/19 16:00 Blood Pressure Position Supine 08/12/19 13:31 Pulse Oximetry 96 08/13/19 11:10 Oxygen Delivery Method Room Air 08/13/19 11:10 Oxygen Flow Rate 0 08/13/19 11:10 Pain Level 7 08/13/19 11:10 Comment 08/12/19 17:05 Intake & Output 08/12/19 08/13/19 08/13/19 23:59 11:59 23:59 Intake Total 3290 / 3890 1160 / 1160 Output Total 1800 / 2050 250 / 250 Balance 1490 / 1840 910 / 910 Weight 62.142 kg Intake: IV 2620 / 2620 560 / 560 Oral 670 / 1270 600 / 600 Output: Urine 1800 / 2050 250 / 250 Other: Urine Color Straw Yellow Light Maeve Urine Appearance Cloudy Clear Sediment Urine Odor Strong Normal Voiding Methods Toilet Laboratory Results WBC 12.21 k/cumm (4.4-10.8) H D 08/13/19 06:30 RBC 3.93 m/cumm (4.00-5.20) L 08/13/19 06:30 Hgb 11.1 g/dL (12.0-15.5) L 08/13/19 06:30 Hct 34.5 % (36.0-46.0) L 08/13/19 06:30 MCV 87.8 fL (80-95) 08/13/19 06:30 MCH 28.2 pg (27.0-33.0) 08/13/19 06:30 MCHC 32.2 g/dL (32.0-36.0) 08/13/19 06:30 RDW 13.3 % (11.7-14.6) 08/13/19 06:30 Plt Count 124 x1000/uL (130-400) L 08/13/19 06:30 MPV 10.1 fL (8.0-11.0) 08/13/19 06:30 Immature Gran % See Differential 08/13/19 06:30 Neutrophils % 69.0 08/13/19 06:30 Band Neutrophils % 16.0 % 08/13/19 06:30 Lymphocytes % 6.0 08/13/19 06:30 Monocytes % 7.0 08/13/19 06:30 Eosinophils % 0.0 08/13/19 06:30 Basophils % 0.0 08/13/19 06:30 Metamyelocytes % 2.0 % 08/13/19 06:30 Absolute Neutrophils 10.38 k/cumm (1.2-6.7) H 08/13/19 06:30 Absolute Lymphocytes 0.73 k/cumm (1.2-3.4) L 08/13/19 06:30 Absolute Monocytes 0.85 k/cumm (0.11-0.7) H 08/13/19 06:30 Absolute Eosinophils 0.00 k/cumm (0.0-0.7) 08/13/19 06:30 Absolute Basophils 0.00 k/cumm (0.0-0.2) 08/13/19 06:30 Differential Comment Manual differential 08/13/19 06:30 RBC Morphology See below 08/13/19 06:30 Polychromasia Present 08/13/19 06:30 Sodium 136 mmol/L (136-145) 08/13/19 06:30 Potassium 4.2 mmol/L (3.5-5.1) 08/13/19 06:30 Chloride 104 mmol/L (98-107) 08/13/19 06:30 Carbon Dioxide 23.4 mmol/L (21.0-32.0) 08/13/19 06:30 Anion Gap 8.6 mmol/L (3-11) 08/13/19 06:30 BUN 9 mg/dL (7-18) 08/13/19 06:30 Creatinine 0.76 mg/dL (0.55-1.02) 08/13/19 06:30 Estimated GFR/1.73 m2 >= 60.00 (mL/min/1.73m2) 08/13/19 06:30 Glucose 121 mg/dL (74-106) H 08/13/19 06:30 Lactate 2.7 mmol/L (0.6-1.4) H* 08/12/19 13:50 Calcium 8.4 mg/dL (8.5-10.1) L 08/13/19 06:30 Magnesium 2.3 mg/dL (1.8-2.4) 08/13/19 06:30 Total Bilirubin 1.1 mg/dL (0.2-1.0) H 08/12/19 13:50 AST 33 U/L (15-37) 08/12/19 13:50 ALT 32 U/L (14-59) 08/12/19 13:50 Alkaline Phosphatase 78 U/L (46-116) 08/12/19 13:50 C-Reactive Protein > 25.00 mg/dL (0.0-0.3) H 08/13/19 06:30 Total Protein 7.2 g/dL (6.4-8.2) 08/12/19 13:50 Albumin 3.0 g/dL (3.4-5.0) L 08/12/19 13:50
--- NOTE | 2019-08-13 12:36 | W.PM.PROGNOT ---
Date of Service Date of service: 08/13/19 Time of Service: 08:00 Assessment and Plan Assessment and plan (1) Ulcerative colitis: Status: Chronic Assessment and plan: This seems to be most probable diagnosis based on presenting history, past history and visual inspection of the colon on sigmoidoscopy as reported by Dr. Hayes. Continue parenteral steroids. Continue parenteral antibiotics. Advance diet. Given her hematologic problems, biological treatment for inducing or maintaining remission may be problematic. Did not tolerate Rowasa enemas with her initial diagnosis, 8 years ago. Call placed to [facility] to discuss case. (2) Gram-negative bacteremia: Status: Acute Assessment and plan: Suspect this is due to mucosal barrier breakdown with inflammation of the colon. Presumably we are getting source under control with systemic steroids. Awaiting final ID and sensitivities, continue Cipro and Flagyl. (3) Chronic leukopenia: Status: Acute Assessment and plan: Steroids of probably induced a bump in her white count. Dr. Santos left message that she should receive Neupogen 480 mcg subcutaneously daily as needed for ANC less than 1000. Will monitor her ANC daily. (4) Hyponatremia: Status: Resolved Assessment and plan: Normalized. Monitor episodically. (5) Hypomagnesemia: Status: Resolved Assessment and plan: Normalized with supplementation. Subjective Subjective Interval history since last seen: Feels substantially better. No nausea or vomiting. Has developed loose stools, mucousy but not bloody. No abdominal pain or cramping. No recurrence of fever. Blood culture from this admission, but not from her initial ER presentation, anaerobic bottle positive for gram-negative mitesh at less than 24 hours growth. C. difficile toxin negative. Sigmoidoscopy reported as classic for ulcerative colitis. Biopsies were sent. White blood cell count quite a bit higher this morning, likely in response to steroids. Message received from hematology that if her ANC is less than 1000 she should receive subcu Neupogen 480 mcg daily. Sodium and magnesium levels have normalized with supplements. Exam Narrative Exam Narrative: She is in good spirits and in no acute distress. Temperature 36.4 blood pressure in the 100 teens over 70 range pulse in the 60s SaO2 96% on room air. Sclera clear. No JVD. Clear lungs. No heart murmur S3 or S4. Bowel sounds present with soft abdomen and no tenderness, no guarding or rebound. Good pulses distally. Transfers in bed unassisted. Objective Objective Clinical Data: Abnormal lab results 08/12/19 08/12/19 08/12/19 Range/Units 13:50 13:50 13:50 WBC 3.29 L (4.4-10.8) k/cumm RBC (4.00-5.20) m/cumm Hgb 11.7 L (12.0-15.5) g/dL Hct 35.9 L (36.0-46.0) % Plt Count (130-400) x1000/uL Absolute Neutrophils (1.2-6.7) k/cumm Absolute Lymphocytes 0.16 L (1.2-3.4) k/cumm Absolute Monocytes 0.00 L (0.11-0.7) k/cumm Sodium 131 L (136-145) mmol/L Chloride 97 L (98-107) mmol/L Glucose 112 H (74-106) mg/dL Lactate 2.7 H* (0.6-1.4) mmol/L Calcium (8.5-10.1) mg/dL Magnesium 1.5 L (1.8-2.4) mg/dL Total Bilirubin 1.1 H (0.2-1.0) mg/dL C-Reactive Protein (0.0-0.3) mg/dL Albumin 3.0 L (3.4-5.0) g/dL 08/12/19 08/13/19 08/13/19 Range/Units 13:50 06:30 06:30 WBC (4.4-10.8) k/cumm RBC (4.00-5.20) m/cumm Hgb (12.0-15.5) g/dL Hct (36.0-46.0) % Plt Count (130-400) x1000/uL Absolute Neutrophils (1.2-6.7) k/cumm Absolute Lymphocytes (1.2-3.4) k/cumm Absolute Monocytes (0.11-0.7) k/cumm Sodium (136-145) mmol/L Chloride (98-107) mmol/L Glucose 121 H (74-106) mg/dL Lactate (0.6-1.4) mmol/L Calcium 8.4 L (8.5-10.1) mg/dL Magnesium (1.8-2.4) mg/dL Total Bilirubin (0.2-1.0) mg/dL C-Reactive Protein > 25.00 H > 25.00 H (0.0-0.3) mg/dL Albumin (3.4-5.0) g/dL 08/13/19 Range/Units 06:30 WBC 12.21 H D (4.4-10.8) k/cumm RBC 3.93 L (4.00-5.20) m/cumm Hgb 11.1 L (12.0-15.5) g/dL Hct 34.5 L (36.0-46.0) % Plt Count 124 L (130-400) x1000/uL Absolute Neutrophils 10.38 H (1.2-6.7) k/cumm Absolute Lymphocytes 0.73 L (1.2-3.4) k/cumm Absolute Monocytes 0.85 H (0.11-0.7) k/cumm Sodium (136-145) mmol/L Chloride (98-107) mmol/L Glucose (74-106) mg/dL Lactate (0.6-1.4) mmol/L Calcium (8.5-10.1) mg/dL Magnesium (1.8-2.4) mg/dL Total Bilirubin (0.2-1.0) mg/dL C-Reactive Protein (0.0-0.3) mg/dL Albumin (3.4-5.0) g/dL Vital Signs Temperature 37.2 C 08/13/19 11:10 Temperature Source Tympanic 08/13/19 11:10 Pulse 64 08/13/19 11:10 Pulse Rhythm Regular 08/13/19 07:45 Respiratory Rate 08/13/19 11:10 Respiratory Effort 08/13/19 07:45 Respiratory Depth Normal 08/13/19 07:45 Respiratory Pattern Normal 08/13/19 07:45 Blood Pressure 116/70 08/13/19 11:10 Blood Pressure Mean 64 08/12/19 16:00 Blood Pressure Position Supine 08/12/19 13:31 Pulse Oximetry 96 08/13/19 11:10 Oxygen Delivery Method Room Air 08/13/19 11:10 Oxygen Flow Rate 0 08/13/19 11:10 Pain Level 7 08/13/19 11:10 Comment 08/12/19 17:05 Intake & Output 08/12/19 08/13/19 08/13/19 23:59 11:59 23:59 Intake Total 3290 / 3890 1160 / 1160 0 / 1160 Output Total 1799 250 / 250 Balance 1490 / 1840 910 / 910 0 / 910 Weight 62.142 kg Intake: IV 2620 / 2620 560 / 560 0 / 560 Oral 670 / 1270 600 / 600 Output: Urine 1799 250 / 250 Other: Urine Color Straw Yellow Light Maeve Urine Appearance Cloudy Clear Sediment Urine Odor Strong Normal Voiding Methods Toilet Laboratory Results WBC 12.21 k/cumm (4.4-10.8) H D 08/13/19 06:30 RBC 3.93 m/cumm (4.00-5.20) L 08/13/19 06:30 Hgb 11.1 g/dL (12.0-15.5) L 08/13/19 06:30 Hct 34.5 % (36.0-46.0) L 08/13/19 06:30 MCV 87.8 fL (80-95) 08/13/19 06:30 MCH 28.2 pg (27.0-33.0) 08/13/19 06:30 MCHC 32.2 g/dL (32.0-36.0) 08/13/19 06:30 RDW 13.3 % (11.7-14.6) 08/13/19 06:30 Plt Count 124 x1000/uL (130-400) L 08/13/19 06:30 MPV 10.1 fL (8.0-11.0) 08/13/19 06:30 Immature Gran % See Differential 08/13/19 06:30 Neutrophils % 69.0 08/13/19 06:30 Band Neutrophils % 16.0 % 08/13/19 06:30 Lymphocytes % 6.0 08/13/19 06:30 Monocytes % 7.0 08/13/19 06:30 Eosinophils % 0.0 08/13/19 06:30 Basophils % 0.0 08/13/19 06:30 Metamyelocytes % 2.0 % 08/13/19 06:30 Absolute Neutrophils 10.38 k/cumm (1.2-6.7) H 08/13/19 06:30 Absolute Lymphocytes 0.73 k/cumm (1.2-3.4) L 08/13/19 06:30 Absolute Monocytes 0.85 k/cumm (0.11-0.7) H 08/13/19 06:30 Absolute Eosinophils 0.00 k/cumm (0.0-0.7) 08/13/19 06:30 Absolute Basophils 0.00 k/cumm (0.0-0.2) 08/13/19 06:30 Differential Comment Manual differential 08/13/19 06:30 RBC Morphology See below 08/13/19 06:30 Polychromasia Present 08/13/19 06:30 Sodium 136 mmol/L (136-145) 08/13/19 06:30 Potassium 4.2 mmol/L (3.5-5.1) 08/13/19 06:30 Chloride 104 mmol/L (98-107) 08/13/19 06:30 Carbon Dioxide 23.4 mmol/L (21.0-32.0) 08/13/19 06:30 Anion Gap 8.6 mmol/L (3-11) 08/13/19 06:30 BUN 9 mg/dL (7-18) 08/13/19 06:30 Creatinine 0.76 mg/dL (0.55-1.02) 08/13/19 06:30 Estimated GFR/1.73 m2 >= 60.00 (mL/min/1.73m2) 08/13/19 06:30 Glucose 121 mg/dL (74-106) H 08/13/19 06:30 Lactate 2.7 mmol/L (0.6-1.4) H* 08/12/19 13:50 Calcium 8.4 mg/dL (8.5-10.1) L 08/13/19 06:30 Magnesium 2.3 mg/dL (1.8-2.4) 08/13/19 06:30 Total Bilirubin 1.1 mg/dL (0.2-1.0) H 08/12/19 13:50 AST 33 U/L (15-37) 08/12/19 13:50 ALT 32 U/L (14-59) 08/12/19 13:50 Alkaline Phosphatase 78 U/L (46-116) 08/12/19 13:50 C-Reactive Protein > 25.00 mg/dL (0.0-0.3) H 08/13/19 06:30 Total Protein 7.2 g/dL (6.4-8.2) 08/12/19 13:50 Albumin 3.0 g/dL (3.4-5.0) L 08/12/19 13:50 Stool study for bacterial pathogen PCR pending
--- NOTE | 2019-08-13 14:58 | CHAPLAIN ---
Leti was pleasant. I introduced myself and explained my role. She wasn't interested in further conversation.
[2019-08-14] VITALS (7 sets, daily range): BP systolic 108–120; BP diastolic 65–79; PULSE 50–64; RESP 16–18; TEMP 35.8–37.7; O2SAT 96–98
[2019-08-14] MEDS: VANCOMYCIN 1,000 MG in Normal Saline 250 ML 166.667 MG IVPB (01:18)
[2019-08-14] MEDS: CIPROFLOXACIN 400 MG/200 ML BAG 200 MG IVPB ×2 (03:05→14:35)
[2019-08-14] MEDS: metroNIDAZOLE 500 MG/100 ML BAG 100 MG IVPB ×3 (04:43→17:53)
[2019-08-14 06:25] LABS: Abs Immature Grans 0.09 k/cumm (0.0-0.09); Absolute Lymphocyte Count 0.65 k/cumm (1.2-3.4); Absolute Monocyte Count 0.56 k/cumm (0.11-0.7); Absolute Neutrophil Count 3.81 k/cumm (1.2-6.7); HCT 33.2 % (36.0-46.0); HGB 10.7 g/dL (12.0-15.5); Immature Grans % 1.8 %; Lymphocytes % 12.7; Mean Corp. HGB Concentration 32.2 g/dL (32.0-36.0); Mean Corpuscular Hemoglobin 28.1 pg (27.0-33.0); Mean Corpuscular Volume 87.1 fL (80-95); Mean Platelet Volume 10.4 fL (8.0-11.0); Neutrophils % 74.5; Platelet Count 137 x1000/uL (130-400); RBC 3.81 m/cumm (4.00-5.20); RBC Distribution Width 13.7 % (11.7-14.6); White Blood Cell Count 5.11 k/cumm (4.4-10.8)
[2019-08-14 06:40] LABS: C-Reactive Protein 17.17 mg/dL (0.0-0.3)
[2019-08-14] MEDS: methylPREDNISolone SUCC 40 MG VIAL 20 MG IVP ×2 (08:35→16:00)
[2019-08-14] MEDS: VANCOMYCIN 750 MG in Normal Saline 250 ML 166.6666 MG IVPB ×3 (08:35→18:50)
--- NOTE | 2019-08-14 11:35 | W.PM.PROGNOT ---
Date of Service Date of service: 08/14/19 Time of Service: 07:30 Assessment and Plan Assessment and plan (1) Ulcerative colitis: Status: Chronic Assessment and plan: This remains top on the working diagnosis list. I spoke with GI fellow yesterday who agrees with biotic coverage but has some apprehension about the use of systemic steroids. I do not agree with his opinion and plan on continuing systemic steroids. Once we have ruled out bacterial colitis (PCR for bacterial pathogen still pending) I think it would be appropriate to trial hydrocortisone enema and switch parenteral steroid to oral. Slow taper of oral prednisone can then be initiated as an outpatient. Awaiting results of cultures to determine if antibiotics can be tailored. Continue IV route for now. [facility] will be contacting her to schedule outpatient follow-up appointment after hospital discharge. (2) Gram-negative bacteremia: Status: Acute Assessment and plan: Hope to have speciation and sensitivities by this afternoon. Continue IV Cipro and metronidazole pending results. (3) Gram-positive bacteremia: Status: Acute Assessment and plan: Later growth of gram-positive cocci in chains, potential skin contaminant but also might to be enteric pathogen such as enterococcus. On vancomycin pending speciation and sensitivities. (4) Chronic leukopenia: Status: Acute Assessment and plan: White count is down somewhat today but absolute neutrophil count remains above the 1000 threshold for initiating Neupogen. Continue to monitor WBC count daily. Subjective Subjective Interval history since last seen: Happy that she can eat. Having loose bowel movement but does not think it is bloody. No abdominal cramping. Has not been febrile. Blood culture from August 11 turn positive late evening yesterday for gram-positive cocci in chains. Gram-negative mitesh hopefully will have ID and sensitivities later today. Unlikely to have ID and sensitivity of the gram-positive cocci until at the earliest tomorrow afternoon, might be Saturday. I spoke with Dr. Dobson, [facility], yesterday who feels antibiotics are appropriate, questions the use of systemic steroids without a definitive diagnosis of ulcerative colitis. He felt that case more compatible with acute infectious colitis. I do not agree with his opinion, and think that this is most likely a recurrence of ulcerative colitis with secondary bacteremia due to mucosal disruption. Biopsies from her sigmoidoscopy done yesterday will be back next week. Her potassium and magnesium have normalized. Her white blood cell count is down from yesterday which was atypically high and likely represents the effects of her initial doses of steroids. Her absolute neutrophil count remains above the 1000, the threshold recommended by her inspector filters for initiating Neupogen (480 mcg subcutaneous daily). She is usually very active and fit and her main complaint today is the need to walk more. She is asking to resume a digestive supplement she uses at home which contains low levels of multiple enzymes. She is COVID negative. Exam Narrative Exam Narrative: Just returned from the shower, in good spirits and in no distress. Afebrile, blood pressure 118/79 pulse in the 60s SaO2 on room air 96%. Lungs are clear throughout. Regular heart rhythm with no murmur S3 or S4. Nontender abdomen with active bowel sounds. Good pulses distally, no rash. Objective Objective Clinical Data: Abnormal lab results 08/14/19 08/14/19 Range/Units 06:05 06:05 RBC 3.81 L (4.00-5.20) m/cumm Hgb 10.7 L (12.0-15.5) g/dL Hct 33.2 L (36.0-46.0) % Absolute Lymphocytes 0.65 L (1.2-3.4) k/cumm C-Reactive Protein 17.17 H (0.0-0.3) mg/dL Vital Signs Temperature 36.2 C L 08/14/19 11:20 Temperature Source Tympanic 08/14/19 11:20 Pulse 64 08/14/19 11:20 Pulse Rhythm Regular 08/14/19 08:30 Respiratory Rate 18 08/14/19 11:20 Respiratory Effort 08/14/19 08:30 Respiratory Depth Normal 08/14/19 08:30 Respiratory Pattern Normal 08/14/19 08:30 Blood Pressure 118/79 08/14/19 11:20 Blood Pressure Mean 64 08/12/19 16:00 Blood Pressure Position Supine 08/12/19 13:31 Pulse Oximetry 96 08/14/19 11:20 Oxygen Delivery Method Room Air 08/14/19 11:20 Oxygen Flow Rate 0 08/14/19 11:20 Pain Level 0 08/14/19 11:20 Comment 08/12/19 17:05 Intake & Output 08/13/19 08/13/19 08/14/19 11:59 23:59 11:59 Intake Total 1260 / 4160 2900 / 4160 913 / 913 Output Total 250 / 1250 1000 / 1250 1999 Balance 1010 / 2910 1900 / 2910 -1087 / -1087 Intake: IV 660 / 2210 1550 / 2210 913 / 913 Oral 600 / 1950 1350 / 1950 Output: Urine 250 / 1250 1000 / 1250 1999 Other: Urine Color Yellow Yellow Yellow Urine Appearance Clear Clear Clear Urine Odor None Normal Normal Stool Size Small Moderate Moderate Stool Characteristics Soft Soft Liquid Brown Voiding Methods Toilet Toilet Toilet Laboratory Results WBC 5.11 k/cumm (4.4-10.8) D 08/14/19 06:05 RBC 3.81 m/cumm (4.00-5.20) L 08/14/19 06:05 Hgb 10.7 g/dL (12.0-15.5) L 08/14/19 06:05 Hct 33.2 % (36.0-46.0) L 08/14/19 06:05 MCV 87.1 fL (80-95) 08/14/19 06:05 MCH 28.1 pg (27.0-33.0) 08/14/19 06:05 MCHC 32.2 g/dL (32.0-36.0) 08/14/19 06:05 RDW 13.7 % (11.7-14.6) 08/14/19 06:05 Plt Count 137 x1000/uL (130-400) 08/14/19 06:05 MPV 10.4 fL (8.0-11.0) 08/14/19 06:05 Immature Gran % 1.8 % 08/14/19 06:05 Neutrophils % 74.5 08/14/19 06:05 Band Neutrophils % 16.0 % 08/13/19 06:30 Lymphocytes % 12.7 08/14/19 06:05 Monocytes % 11.0 08/14/19 06:05 Eosinophils % 0.0 08/14/19 06:05 Basophils % 0.0 08/14/19 06:05 Metamyelocytes % 2.0 % 08/13/19 06:30 Absolute Neutrophils 3.81 k/cumm (1.2-6.7) 08/14/19 06:05 Absolute Lymphocytes 0.65 k/cumm (1.2-3.4) L 08/14/19 06:05 Absolute Monocytes 0.56 k/cumm (0.11-0.7) 08/14/19 06:05 Absolute Eosinophils 0.00 k/cumm (0.0-0.7) 08/14/19 06:05 Absolute Basophils 0.00 k/cumm (0.0-0.2) 08/14/19 06:05 Differential Comment Manual differential 08/13/19 06:30 RBC Morphology See below 08/13/19 06:30 Polychromasia Present 08/13/19 06:30 Sodium 136 mmol/L (136-145) 08/13/19 06:30 Potassium 4.2 mmol/L (3.5-5.1) 08/13/19 06:30 Chloride 104 mmol/L (98-107) 08/13/19 06:30 Carbon Dioxide 23.4 mmol/L (21.0-32.0) 08/13/19 06:30 Anion Gap 8.6 mmol/L (3-11) 08/13/19 06:30 BUN 9 mg/dL (7-18) 08/13/19 06:30 Creatinine 0.76 mg/dL (0.55-1.02) 08/13/19 06:30 Estimated GFR/1.73 m2 >= 60.00 (mL/min/1.73m2) 08/13/19 06:30 Glucose 121 mg/dL (74-106) H 08/13/19 06:30 Lactate 2.7 mmol/L (0.6-1.4) H* 08/12/19 13:50 Calcium 8.4 mg/dL (8.5-10.1) L 08/13/19 06:30 Magnesium 2.3 mg/dL (1.8-2.4) 08/13/19 06:30 Total Bilirubin 1.1 mg/dL (0.2-1.0) H 08/12/19 13:50 AST 33 U/L (15-37) 08/12/19 13:50 ALT 32 U/L (14-59) 08/12/19 13:50 Alkaline Phosphatase 78 U/L (46-116) 08/12/19 13:50 C-Reactive Protein 17.17 mg/dL (0.0-0.3) H 08/14/19 06:05 Total Protein 7.2 g/dL (6.4-8.2) 08/12/19 13:50 Albumin 3.0 g/dL (3.4-5.0) L 08/12/19 13:50 Path Cons Comment 08/13/19 06:30 P and C ANCA pending. Stool PCR for bacterial pathogens pending. Identification and sensitivity of the gram-negative mitesh in her blood and gram-positive cocci in blood pending.
--- NOTE | 2019-08-14 13:58 | CMPROGNOTE_ITS ---
- If Service Date Differs Date of service: 08/14/19 Time of Service: 13:58 Care Management Progress Note S/O: Leti was sitting up on the side of her bed when CM met with her. She was pleasant and engaged in conversation. She reported that she was not going to be discharged today. Per MD, Leti had positive blood cultures, awaiting sensitivities. Leti is agreeable to remaining at [facility]. She was given permission to walk in the halls today, as long as she wears a mask. CM will continue to follow. A: Leti is a 68 year old female admitted to [facility] on 08/12/19 for colitis. P: Anticipate Leti will return home with no additional services once medically cleared. Her will drive her home via private vehicle. She will follow up with her PCP and discharge plan of care. CM will continue to follow.
[2019-08-14] MEDS: Normal Saline Flush 10 ML SYR IVP (21:00)
--- NOTE | 2019-08-14 22:52 | W.PM.PROGNOT ---
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 Subjective Subjective Interval history since last seen: Pt is doing better. no headaches. No CP or SOB. no productive cough. no dysuria. no leg pain or swelling. Pt had some diarrhea and bleeding this am. No Pain. Her appetite is back and she is able to tolerate food. No fevers and feels good. Exam HENMT Other: no eye pain. no thrush no mouth pain. Resp Effort & Inspection: normal respiratory effort and able to speak in complete sentences Auscultation: clear to auscultation bilaterally Cardio Rate: regular rate Rhythm: regular rhythm GI Palpation: soft and nontender Objective Objective Clinical Data: Abnormal lab results 08/14/19 08/14/19 Range/Units 06:05 06:05 RBC 3.81 L (4.00-5.20) m/cumm Hgb 10.7 L (12.0-15.5) g/dL Hct 33.2 L (36.0-46.0) % Absolute Lymphocytes 0.65 L (1.2-3.4) k/cumm C-Reactive Protein 17.17 H (0.0-0.3) mg/dL Vital Signs Temperature 37.7 C H 08/14/19 19:20 Temperature Source Tympanic 08/14/19 19:20 Pulse 54 L 08/14/19 19:20 Pulse Rhythm Regular 08/14/19 21:00 Respiratory Rate 17 08/14/19 19:20 Respiratory Effort 08/14/19 21:00 Respiratory Depth Normal 08/14/19 21:00 Respiratory Pattern Normal 08/14/19 21:00 Blood Pressure 120/75 08/14/19 19:20 Blood Pressure Mean 64 08/12/19 16:00 Blood Pressure Position Supine 08/12/19 13:31 Pulse Oximetry 96 08/14/19 19:20 Oxygen Delivery Method Room Air 08/14/19 19:20 Oxygen Flow Rate 0 08/14/19 19:20 Pain Level 0 08/14/19 19:20 Comment 08/12/19 17:05 Intake & Output 08/13/19 08/14/19 08/14/19 23:59 11:59 23:59 Intake Total 2900 / 4160 913 / 2333 1420 / 2333 Output Total 1000 / 1250 2000 / 4600 2600 / 4600 Balance 1900 / 2910 -1087 / -2267 -1180 / -2267 Intake: IV 1550 / 2210 913 / 1613 700 / 1613 Oral 1350 / 1950 720 / 720 Output: Urine 1000 / 1250 2000 / 4600 2600 / 4600 Other: Urine Color Yellow Yellow Yellow Urine Appearance Clear Clear Clear Urine Odor Normal Normal None Stool Size Moderate Moderate Stool Characteristics Soft Liquid Brown Voiding Methods Toilet Toilet Toilet Laboratory Results WBC 5.11 k/cumm (4.4-10.8) D 08/14/19 06:05 RBC 3.81 m/cumm (4.00-5.20) L 08/14/19 06:05 Hgb 10.7 g/dL (12.0-15.5) L 08/14/19 06:05 Hct 33.2 % (36.0-46.0) L 08/14/19 06:05 MCV 87.1 fL (80-95) 08/14/19 06:05 MCH 28.1 pg (27.0-33.0) 08/14/19 06:05 MCHC 32.2 g/dL (32.0-36.0) 08/14/19 06:05 RDW 13.7 % (11.7-14.6) 08/14/19 06:05 Plt Count 137 x1000/uL (130-400) 08/14/19 06:05 MPV 10.4 fL (8.0-11.0) 08/14/19 06:05 Immature Gran % 1.8 % 08/14/19 06:05 Neutrophils % 74.5 08/14/19 06:05 Band Neutrophils % 16.0 % 08/13/19 06:30 Lymphocytes % 12.7 08/14/19 06:05 Monocytes % 11.0 08/14/19 06:05 Eosinophils % 0.0 08/14/19 06:05 Basophils % 0.0 08/14/19 06:05 Metamyelocytes % 2.0 % 08/13/19 06:30 Absolute Neutrophils 3.81 k/cumm (1.2-6.7) 08/14/19 06:05 Absolute Lymphocytes 0.65 k/cumm (1.2-3.4) L 08/14/19 06:05 Absolute Monocytes 0.56 k/cumm (0.11-0.7) 08/14/19 06:05 Absolute Eosinophils 0.00 k/cumm (0.0-0.7) 08/14/19 06:05 Absolute Basophils 0.00 k/cumm (0.0-0.2) 08/14/19 06:05 Differential Comment Manual differential 08/13/19 06:30 RBC Morphology See below 08/13/19 06:30 Polychromasia Present 08/13/19 06:30 Sodium 136 mmol/L (136-145) 08/13/19 06:30 Potassium 4.2 mmol/L (3.5-5.1) 08/13/19 06:30 Chloride 104 mmol/L (98-107) 08/13/19 06:30 Carbon Dioxide 23.4 mmol/L (21.0-32.0) 08/13/19 06:30 Anion Gap 8.6 mmol/L (3-11) 08/13/19 06:30 BUN 9 mg/dL (7-18) 08/13/19 06:30 Creatinine 0.76 mg/dL (0.55-1.02) 08/13/19 06:30 Estimated GFR/1.73 m2 >= 60.00 (mL/min/1.73m2) 08/13/19 06:30 Glucose 121 mg/dL (74-106) H 08/13/19 06:30 Lactate 2.7 mmol/L (0.6-1.4) H* 08/12/19 13:50 Calcium 8.4 mg/dL (8.5-10.1) L 08/13/19 06:30 Magnesium 2.3 mg/dL (1.8-2.4) 08/13/19 06:30 Total Bilirubin 1.1 mg/dL (0.2-1.0) H 08/12/19 13:50 AST 33 U/L (15-37) 08/12/19 13:50 ALT 32 U/L (14-59) 08/12/19 13:50 Alkaline Phosphatase 78 U/L (46-116) 08/12/19 13:50 C-Reactive Protein 17.17 mg/dL (0.0-0.3) H 08/14/19 06:05 Total Protein 7.2 g/dL (6.4-8.2) 08/12/19 13:50 Albumin 3.0 g/dL (3.4-5.0) L 08/12/19 13:50 Path Cons Comment 08/13/19 06:30
[2019-08-15] MEDS: methylPREDNISolone SUCC 40 MG VIAL 20 MG IVP ×4 (00:22→23:48)
[2019-08-15] MEDS: Normal Saline Flush 10 ML SYR IVP ×4 (00:22→17:45)
[2019-08-15] MEDS: metroNIDAZOLE 500 MG/100 ML BAG 100 MG IVPB ×5 (00:22→23:48)
[2019-08-15] MEDS: CIPROFLOXACIN 400 MG/200 ML BAG 200 MG IVPB ×2 (02:01→14:24)
[2019-08-15 03:05] VITALS: BP 110/68; PULSE 48; RESP 16; TEMP 36.4; O2SAT 96
[2019-08-15] MEDS: VANCOMYCIN 750 MG in Normal Saline 250 ML 166.66 MG IVPB (03:15)
[2019-08-15 07:20] VITALS: BP 114/66; PULSE 46; RESP 17; TEMP 36.6; O2SAT 96
[2019-08-15 07:27] LABS: Anion Gap 8.5 mmol/L (3-11); BUN 12 mg/dL (7-18); CO2 24.5 mmol/L (21.0-32.0); CREATININE 0.67 mg/dL (0.55-1.02); Calcium 7.9 mg/dL (8.5-10.1); Chloride 107 mmol/L (98-107); Glucose 146 mg/dL (74-106); Sodium 140 mmol/L (136-145)
[2019-08-15 07:51] LABS: HCT 32.7 % (36.0-46.0); HGB 10.3 g/dL (12.0-15.5); Mean Corp. HGB Concentration 31.5 g/dL (32.0-36.0); Mean Corpuscular Hemoglobin 27.5 pg (27.0-33.0); Mean Corpuscular Volume 87.4 fL (80-95); Platelet Count 156 x1000/uL (130-400); RBC 3.74 m/cumm (4.00-5.20); White Blood Cell Count 1.84 k/cumm (4.4-10.8)
[2019-08-15 07:52] LABS: Absolute Lymphocyte Count 0.61 k/cumm (1.2-3.4); Absolute Monocyte Count 0.09 k/cumm (0.11-0.7); Absolute Neutrophil Count 1.05 k/cumm (1.2-6.7); Diff Comment Manual Differential
[2019-08-15 07:53] LABS: RBC Morphology Normal
--- NOTE | 2019-08-15 09:31 | PDOC.CMPRO ---
- If Service Date Differs Date of service: 08/15/19 Time of Service: 09:31 Care Management Progress Note S/O: Leti was sitting up in a chair when CM met with her. She was pleasant and readily engaged in conversation. She reported that she was not going to be discharged today. Leti had 2 blood cultures positive for E. Coli. One of the bottles is also growing gram positive cocci in chains, yet to be speciated. Provider has ordered additional testing to rule out E. Coli 0157 as a cause for the colitis. Additionally, an Echocardiogram may be necessary to rule out endocarditis if the gram positive cocci are found to be pathogenic. Leti shared that she has been walking in the halls, has showered and had a lot of energy yesterday. She admitted to being a bit tired today, although remains in good spirits. A: Leti is a 68 year old female admitted to [facility] on 08/12/19 for colitis. P: Anticipate Leti will return home with no additional services once medically cleared. Her will drive her home via private vehicle. She will follow up with her PCP and discharge plan of care. CM will continue to follow.
[2019-08-15 09:50] LABS: Vancomycin, Trough 11.6 ug/mL (10.0-20.0)
[2019-08-15] MEDS: VANCOMYCIN 1,000 MG in Normal Saline 250 ML 166.6666 MG IV ×2 (10:35→18:56)
[2019-08-15 11:30] VITALS: BP 119/69; PULSE 54; RESP 17; TEMP 36.7; O2SAT 97
[2019-08-15 12:22] LABS: Campylobacter PCR Negative (Negative); Salmonella PCR Negative (Negative); Shiga Toxin PCR Negative (Negative); Shigella/Enteroinvasive Ecoli Negative (Negative)
--- NOTE | 2019-08-15 12:58 | PGE_ITS ---
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 Parry is doing well. The rectal pain she was having has resolved. She had an explosive BM yesterday, no blood that she can remember. No BM today. no fevers and no abdominal pain. She is tolerating a low fiber diet. Long discussion with patient regarding whether her colitis is bacterial only or a UC flair with bacteremia due to the UC. [place] [facility] [place] She was diagnosed a long time with UC but has not been on any treatment. She has managed her UC with nutrition and supplements. When she was first diagnosed with UC involving the rectum and sigmoid she was prescribed Rowasa which she didn't tolerate due to pain and burning. She doesn't really want to use enemas on discharge. Exam Const General: cooperative, comfortable and no acute distress Orientation: alert and oriented x3 HENMT Head: normocephalic and atraumatic Resp Effort & Inspection: normal respiratory effort Auscultation: clear to auscultation bilaterally Cardio Rate: regular rate Rhythm: regular rhythm Heart Sounds: gallop and murmur GI Palpation: soft, no hepatosplenomegaly and nontender Auscultation: normal bowel sounds Objective Objective Clinical Data: Abnormal lab results 08/15/19 08/15/19 Range/Units 06:35 06:35 WBC 1.84 L* D (4.4-10.8) k/cumm RBC 3.74 L (4.00-5.20) m/cumm Hgb 10.3 L (12.0-15.5) g/dL Hct 32.7 L (36.0-46.0) % MCHC 31.5 L (32.0-36.0) g/dL Absolute Neutrophils 1.05 L (1.2-6.7) k/cumm Absolute Lymphocytes 0.61 L (1.2-3.4) k/cumm Absolute Monocytes 0.09 L (0.11-0.7) k/cumm Glucose 146 H (74-106) mg/dL Calcium 7.9 L (8.5-10.1) mg/dL Vital Signs Temperature 98.1 F 08/15/19 11:30 Temperature Source Tympanic 08/15/19 11:30 Pulse 54 L 08/15/19 11:30 Pulse Rhythm Regular 08/15/19 04:14 Respiratory Rate 17 08/15/19 11:30 Respiratory Effort 08/15/19 04:14 Respiratory Depth Normal 08/15/19 04:14 Respiratory Pattern Normal 08/15/19 04:14 Blood Pressure 119/69 08/15/19 11:30 Blood Pressure Mean 64 08/12/19 16:00 Blood Pressure Position Supine 08/12/19 13:31 Pulse Oximetry 97 08/15/19 11:30 Oxygen Delivery Method Room Air 08/15/19 11:30 Oxygen Flow Rate 0 08/15/19 11:30 Pain Level 0 08/15/19 11:30 Comment 08/12/19 17:05 Intake & Output 08/14/19 08/15/19 08/15/19 23:59 11:59 23:59 Intake Total 2120 / 3033 1410 / 1410 Output Total 3200 / 5200 1850 / 1850 Balance -1080 / -2167 -440 / -440 Intake: IV 900 / 1813 850 / 850 Oral 1220 / 1220 560 / 560 Output: Urine 3200 / 5200 1850 / 1850 Other: Urine Color Yellow Yellow Urine Appearance Clear Clear Urine Odor None Comment total from multiple voids Voiding Methods Toilet Toilet Laboratory Results WBC 1.84 k/cumm (4.4-10.8) L* D 08/15/19 06:35 RBC 3.74 m/cumm (4.00-5.20) L 08/15/19 06:35 Hgb 10.3 g/dL (12.0-15.5) L 08/15/19 06:35 Hct 32.7 % (36.0-46.0) L 08/15/19 06:35 MCV 87.4 fL (80-95) 08/15/19 06:35 MCH 27.5 pg (27.0-33.0) 08/15/19 06:35 MCHC 31.5 g/dL (32.0-36.0) L 08/15/19 06:35 RDW 14.0 % (11.7-14.6) 08/15/19 06:35 Plt Count 156 x1000/uL (130-400) 08/15/19 06:35 MPV 11.0 fL (8.0-11.0) 08/15/19 06:35 Immature Gran % See Differential 08/15/19 06:35 Neutrophils % 57.0 08/15/19 06:35 Band Neutrophils % 16.0 % 08/13/19 06:30 Lymphocytes % 33.0 08/15/19 06:35 Monocytes % 5.0 08/15/19 06:35 Eosinophils % 0.0 08/15/19 06:35 Basophils % 0.0 08/15/19 06:35 Metamyelocytes % 3.0 % 08/15/19 06:35 Myelocytes % 2.0 % 08/15/19 06:35 Absolute Neutrophils 1.05 k/cumm (1.2-6.7) L 08/15/19 06:35 Absolute Lymphocytes 0.61 k/cumm (1.2-3.4) L 08/15/19 06:35 Absolute Monocytes 0.09 k/cumm (0.11-0.7) L 08/15/19 06:35 Absolute Eosinophils 0.00 k/cumm (0.0-0.7) 08/15/19 06:35 Absolute Basophils 0.00 k/cumm (0.0-0.2) 08/15/19 06:35 Differential Comment Manual differential 08/15/19 06:35 RBC Morphology Normal 08/15/19 06:35 Polychromasia Present 08/13/19 06:30 Sodium 140 mmol/L (136-145) 08/15/19 06:35 Potassium 4.0 mmol/L (3.5-5.1) 08/15/19 06:35 Chloride 107 mmol/L (98-107) 08/15/19 06:35 Carbon Dioxide 24.5 mmol/L (21.0-32.0) 08/15/19 06:35 Anion Gap 8.5 mmol/L (3-11) 08/15/19 06:35 BUN 12 mg/dL (7-18) 08/15/19 06:35 Creatinine 0.67 mg/dL (0.55-1.02) 08/15/19 06:35 Estimated GFR/1.73 m2 >= 60.00 (mL/min/1.73m2) 08/15/19 06:35 Glucose 146 mg/dL (74-106) H 08/15/19 06:35 Lactate 2.7 mmol/L (0.6-1.4) H* 08/12/19 13:50 Calcium 7.9 mg/dL (8.5-10.1) L 08/15/19 06:35 Magnesium 2.3 mg/dL (1.8-2.4) 08/13/19 06:30 Total Bilirubin 1.1 mg/dL (0.2-1.0) H 08/12/19 13:50 AST 33 U/L (15-37) 08/12/19 13:50 ALT 32 U/L (14-59) 08/12/19 13:50 Alkaline Phosphatase 78 U/L (46-116) 08/12/19 13:50 C-Reactive Protein 17.17 mg/dL (0.0-0.3) H 08/14/19 06:05 Total Protein 7.2 g/dL (6.4-8.2) 08/12/19 13:50 Albumin 3.0 g/dL (3.4-5.0) L 08/12/19 13:50 Vancomycin Trough 11.6 ug/mL (10.0-20.0) 08/15/19 09:15 Path Cons Comment 08/13/19 06:30
--- NOTE | 2019-08-15 13:58 | W.PM.PROGNOT ---
Date of Service Date of service: 08/15/19 Time of Service: 13:59 Assessment and Plan Assessment and plan (1) Ulcerative colitis: Status: Chronic Assessment and plan: Question of flare vs alternative etiology for acute colitis at this time. Seems to be improving on methylprednisolone IV. Bx pending. Continue to trend CRP. Await ANCA/ASCA. Discussed with Dr Woody - plan is to transition the patient to PO prednisone tomorrow. 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 Coli bacteremia. Question of primary enteroinvasive E. Coli causing colitis and bacteremia vs colitis causing transmigration of normal enteric chantale and E. Coli bacteremia. I added on O157:H7 PCR. Will also discuss with lab if this testing can be done on E. Coli from blood. Continue ciprofloxacin. (3) Gram-positive bacteremia: Status: Acute Assessment and plan: Still not speciated. Repeat blood cultures negative. Await speciation/sensitivities - may require an echo. Continue empiric cipro/IV vanco. (4) Chronic leukopenia: Status: Acute Assessment and plan: If ANC<1,000, will give neupogen. (5) Discharge planning issues: Status: Acute Assessment and plan: Full code. Continues to require hospitalization (6) DVT prophylaxis: Status: Acute Assessment and plan: Lovenox SC, add TEDs/SCDs Subjective Subjective Interval history since last seen: Ms Parry states she is feeling better today. No diarrhea. No BM of any kind, in fact. Denies dizziness, chest pain, shortness of breath, nausea. Tolerating PO. States she has been ambulating and elevating her legs when seating down. States there was no blood in her BM yesterday. Exam Narrative Exam Narrative: General: Very pleasant middle-aged female, A&Ox3, sitting comfortably in a chair HEENT: EOMI, MMM Heart: RRR, no m/r/g Lungs: CTAB Abdomen: soft, nontender, nondistended Extremities: +1 BLE edema, pitting, no c/c. Objective Objective Clinical Data: Abnormal lab results 08/15/19 08/15/19 Range/Units 06:35 06:35 WBC 1.84 L* D (4.4-10.8) k/cumm RBC 3.74 L (4.00-5.20) m/cumm Hgb 10.3 L (12.0-15.5) g/dL Hct 32.7 L (36.0-46.0) % MCHC 31.5 L (32.0-36.0) g/dL Absolute Neutrophils 1.05 L (1.2-6.7) k/cumm Absolute Lymphocytes 0.61 L (1.2-3.4) k/cumm Absolute Monocytes 0.09 L (0.11-0.7) k/cumm Glucose 146 H (74-106) mg/dL Calcium 7.9 L (8.5-10.1) mg/dL Vital Signs Temperature 36.7 C 08/15/19 11:30 Temperature Source Tympanic 08/15/19 11:30 Pulse 54 L 08/15/19 11:30 Pulse Rhythm Regular 08/15/19 04:14 Respiratory Rate 17 08/15/19 11:30 Respiratory Effort 08/15/19 04:14 Respiratory Depth Normal 08/15/19 04:14 Respiratory Pattern Normal 08/15/19 04:14 Blood Pressure 119/69 08/15/19 11:30 Blood Pressure Mean 64 08/12/19 16:00 Blood Pressure Position Supine 08/12/19 13:31 Pulse Oximetry 97 08/15/19 11:30 Oxygen Delivery Method Room Air 08/15/19 11:30 Oxygen Flow Rate 0 08/15/19 11:30 Pain Level 0 08/15/19 11:30 Comment 08/12/19 17:05 Intake & Output 08/14/19 08/15/19 08/15/19 23:59 11:59 23:59 Intake Total 2120 / 3033 1410 / 1410 Output Total 3200 / 5200 1850 / 1850 Balance -1080 / -2167 -440 / -440 Intake: IV 900 / 1813 850 / 850 Oral 1220 / 1220 560 / 560 Output: Urine 3200 / 5200 1850 / 1850 Other: Urine Color Yellow Yellow Urine Appearance Clear Clear Urine Odor None Comment total from multiple voids Voiding Methods Toilet Toilet Laboratory Results WBC 1.84 k/cumm (4.4-10.8) L* D 08/15/19 06:35 RBC 3.74 m/cumm (4.00-5.20) L 08/15/19 06:35 Hgb 10.3 g/dL (12.0-15.5) L 08/15/19 06:35 Hct 32.7 % (36.0-46.0) L 08/15/19 06:35 MCV 87.4 fL (80-95) 08/15/19 06:35 MCH 27.5 pg (27.0-33.0) 08/15/19 06:35 MCHC 31.5 g/dL (32.0-36.0) L 08/15/19 06:35 RDW 14.0 % (11.7-14.6) 08/15/19 06:35 Plt Count 156 x1000/uL (130-400) 08/15/19 06:35 MPV 11.0 fL (8.0-11.0) 08/15/19 06:35 Immature Gran % See Differential 08/15/19 06:35 Neutrophils % 57.0 08/15/19 06:35 Band Neutrophils % 16.0 % 08/13/19 06:30 Lymphocytes % 33.0 08/15/19 06:35 Monocytes % 5.0 08/15/19 06:35 Eosinophils % 0.0 08/15/19 06:35 Basophils % 0.0 08/15/19 06:35 Metamyelocytes % 3.0 % 08/15/19 06:35 Myelocytes % 2.0 % 08/15/19 06:35 Absolute Neutrophils 1.05 k/cumm (1.2-6.7) L 08/15/19 06:35 Absolute Lymphocytes 0.61 k/cumm (1.2-3.4) L 08/15/19 06:35 Absolute Monocytes 0.09 k/cumm (0.11-0.7) L 08/15/19 06:35 Absolute Eosinophils 0.00 k/cumm (0.0-0.7) 08/15/19 06:35 Absolute Basophils 0.00 k/cumm (0.0-0.2) 08/15/19 06:35 Differential Comment Manual differential 08/15/19 06:35 RBC Morphology Normal 08/15/19 06:35 Polychromasia Present 08/13/19 06:30 Sodium 140 mmol/L (136-145) 08/15/19 06:35 Potassium 4.0 mmol/L (3.5-5.1) 08/15/19 06:35 Chloride 107 mmol/L (98-107) 08/15/19 06:35 Carbon Dioxide 24.5 mmol/L (21.0-32.0) 08/15/19 06:35 Anion Gap 8.5 mmol/L (3-11) 08/15/19 06:35 BUN 12 mg/dL (7-18) 08/15/19 06:35 Creatinine 0.67 mg/dL (0.55-1.02) 08/15/19 06:35 Estimated GFR/1.73 m2 >= 60.00 (mL/min/1.73m2) 08/15/19 06:35 Glucose 146 mg/dL (74-106) H 08/15/19 06:35 Lactate 2.7 mmol/L (0.6-1.4) H* 08/12/19 13:50 Calcium 7.9 mg/dL (8.5-10.1) L 08/15/19 06:35 Magnesium 2.3 mg/dL (1.8-2.4) 08/13/19 06:30 Total Bilirubin 1.1 mg/dL (0.2-1.0) H 08/12/19 13:50 AST 33 U/L (15-37) 08/12/19 13:50 ALT 32 U/L (14-59) 08/12/19 13:50 Alkaline Phosphatase 78 U/L (46-116) 08/12/19 13:50 C-Reactive Protein 17.17 mg/dL (0.0-0.3) H 08/14/19 06:05 Total Protein 7.2 g/dL (6.4-8.2) 08/12/19 13:50 Albumin 3.0 g/dL (3.4-5.0) L 08/12/19 13:50 Vancomycin Trough 11.6 ug/mL (10.0-20.0) 08/15/19 09:15 Path Cons Comment 08/13/19 06:30
[2019-08-15 15:25] VITALS: BP 128/78; PULSE 56; RESP 18; TEMP 36.6; O2SAT 99
[2019-08-15 18:45] VITALS: BP 124/74; PULSE 57; RESP 18; TEMP 36.3; O2SAT 96
[2019-08-15 23:00] VITALS: BP 124/73; PULSE 44; RESP 17; TEMP 36.6; O2SAT 97
[2019-08-16 00:11] VITALS: PULSE 49
[2019-08-16] MEDS: CIPROFLOXACIN 400 MG/200 ML BAG 200 MG IVPB (01:43)
[2019-08-16] MEDS: Normal Saline Flush 10 ML SYR IVP (01:44)
[2019-08-16] MEDS: VANCOMYCIN 1,000 MG in Normal Saline 250 ML 166.6666 MG IV (03:03)
[2019-08-16 03:23] VITALS: BP 120/70; PULSE 41; RESP 16; TEMP 36.9; O2SAT 94
[2019-08-16] MEDS: metroNIDAZOLE 500 MG/100 ML BAG 100 MG IVPB ×2 (05:00→11:53)
[2019-08-16 07:41] LABS: Abs Immature Grans 0.31 k/cumm (0.0-0.09); HCT 33.7 % (36.0-46.0); HGB 10.6 g/dL (12.0-15.5); Mean Corp. HGB Concentration 31.5 g/dL (32.0-36.0); Mean Corpuscular Hemoglobin 27.8 pg (27.0-33.0); Mean Corpuscular Volume 88.5 fL (80-95); Mean Platelet Volume 11.7 fL (8.0-11.0); Platelet Count 174 x1000/uL (130-400); RBC 3.81 m/cumm (4.00-5.20); RBC Distribution Width 14.2 % (11.7-14.6)
[2019-08-16 07:50] LABS: Anion Gap 8.1 mmol/L (3-11); BUN 12 mg/dL (7-18); C-Reactive Protein 6.11 mg/dL (0.0-0.3); CO2 25.9 mmol/L (21.0-32.0); CREATININE 0.85 mg/dL (0.55-1.02); Calcium 8.2 mg/dL (8.5-10.1); Chloride 106 mmol/L (98-107); Glucose 136 mg/dL (74-106); Magnesium 1.8 mg/dL (1.8-2.4); Potassium 4.1 mmol/L (3.5-5.1); Sodium 140 mmol/L (136-145)
[2019-08-16 08:10] VITALS: BP 111/63; PULSE 48; RESP 15; TEMP 37.1; O2SAT 95
[2019-08-16 08:21] LABS: White Blood Cell Count 1.88 k/cumm (4.4-10.8)
[2019-08-16 08:22] LABS: Absolute Neutrophil Count 0.79 k/cumm (1.2-6.7)
[2019-08-16 08:23] LABS: Absolute Lymphocyte Count 0.71 k/cumm (1.2-3.4); Absolute Monocyte Count 0.19 k/cumm (0.11-0.7); Atypical Lymphocytes % 2; Nucleated RBC 2 /100WBC
[2019-08-16 08:24] LABS: Diff Comment Manual Differential; RBC Morphology Normal
[2019-08-16] MEDS: predniSONE 20 MG TAB 60 MG PO (08:40)
--- NOTE | 2019-08-16 09:13 | PDOC.CMPRO ---
- If Service Date Differs Date of service: 08/16/19 Time of Service: 09:13 Care Management Progress Note S/O: HARVINDER met with Leti while walking in the hallways. She showered early this morning and has taken many laps around the unit. She smiles often and appears to be in good spirits. Once again, discharge will be delayed. Leti had 2 blood cultures positive for E. Coli. One of the bottles is also growing gram positive cocci in chains, yet to be speciated, although it is now known to be an anaerobic organism. An Echocardiogram may be necessary to rule out endocarditis if the gram positive cocci are found to be pathogenic. HARVINDER visited with Leti again this afternoon and she shared stories of her adventures with long distance biking over the [place] as well as in many countries in [place]. She and her remain very active and enjoy outdoor activities. A: Leti is a 68 year old female admitted to [facility] on 08/12/19 for colitis. P: Anticipate Leti will return home with no additional services once medically cleared. Her will drive her home via private vehicle. She will follow up with her PCP and discharge plan of care. CM will continue to follow.
[2019-08-16 09:55] LABS: Vancomycin, Trough 15.8 ug/mL (10.0-20.0)
[2019-08-16 11:23] VITALS: BP 114/70; PULSE 51; RESP 15; TEMP 37.3; O2SAT 95
--- NOTE | 2019-08-16 13:11 | W.PM.PROGNOT ---
Date of Service Date of service: 08/16/19 Time of Service: 13:11 Assessment and Plan Assessment and plan (1) Ulcerative colitis: Status: Chronic Assessment and plan: Question of flare vs alternative etiology for acute colitis at this time. Seems to be improving on steroids (switched to prednisone today) but is also on cipro/flagyl. Bx results still pending. Continue to trend CRP (improving). Await ANCA/ASCA. The patient can likely be discharged home tomorrow with a steroid taper. 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 Coli bacteremia with negative repeat blood cultures. Per our microbiology lab, stool pathogens PCR was negative and it includes enterohemorrhagic E. Coli. Continue ciprofloxacin. Plan for a 10 day course. (3) Gram-positive bacteremia: Status: Acute Assessment and plan: Still not speciated - evidently, this was in 1 bottle/4 (anaerobic) and has to be sent out to [facility] to speciate. Repeat blood cultures negative. Will obtain echo just in case this comes back as a true pathogen. Continue empiric cipro, but d/c vancomycin and continue to monitor CRP. (4) Chronic leukopenia: Status: Acute Assessment and plan: S/p neupogen today. Recheck WBC in am (5) Discharge planning issues: Status: Acute Assessment and plan: Full code. Plan to discharge home tomorrow afternoon (6) DVT prophylaxis: Status: Acute Assessment and plan: Lovenox SC, TEDs/SCDs Subjective Subjective Interval history since last seen: Mr Parry states that she is feeling better. She had a BM which was brown and, while it wasn't formed, it was not diarrhea. She stated it was not uncomfortable to have it. Her leg swelling has improved. Denies dizziness, chest pain, shortness of breath, nausea. Received 480 mg of neupogen today. Exam Narrative Exam Narrative: General: Very pleasant middle-aged female, A&Ox3, sitting comfortably in a chair HEENT: EOMI, MMM Heart: RRR, no m/r/g Lungs: CTAB Abdomen: soft, nontender, nondistended Extremities: trace BLE edema in TEDs, no c/c. Objective Objective Clinical Data: Abnormal lab results 08/16/19 08/16/19 Range/Units 06:50 06:50 WBC 1.88 L* (4.4-10.8) k/cumm RBC 3.81 L (4.00-5.20) m/cumm Hgb 10.6 L (12.0-15.5) g/dL Hct 33.7 L (36.0-46.0) % MCHC 31.5 L (32.0-36.0) g/dL MPV 11.7 H (8.0-11.0) fL Absolute Neutrophils 0.79 L (1.2-6.7) k/cumm Absolute Lymphocytes 0.71 L (1.2-3.4) k/cumm Glucose 136 H (74-106) mg/dL Calcium 8.2 L (8.5-10.1) mg/dL C-Reactive Protein 6.11 H (0.0-0.3) mg/dL Vital Signs Temperature 37.3 C 08/16/19 11:23 Temperature Source Tympanic 08/16/19 11:23 Pulse 51 L 08/16/19 11:23 Pulse Rhythm Regular 08/16/19 08:35 Respiratory Rate 15 08/16/19 11:23 Respiratory Effort Non-Labored 08/16/19 08:35 Respiratory Depth Normal 08/16/19 08:35 Respiratory Pattern Normal 08/16/19 08:35 Blood Pressure 114/70 08/16/19 11:23 Blood Pressure Mean 64 08/12/19 16:00 Blood Pressure Position Supine 08/12/19 13:31 Pulse Oximetry 95 08/16/19 11:23 Oxygen Delivery Method Room Air 08/16/19 11:23 Oxygen Flow Rate 0 08/16/19 11:23 Pain Level 0 08/16/19 11:23 Comment 08/12/19 17:05 Intake & Output 08/15/19 08/16/19 08/16/19 23:59 11:59 23:59 Intake Total 1390 / 2800 650 / 650 Output Total 1450 / 3300 1500 / 1500 Balance -60 / -500 -850 / -850 Intake: IV 910 / 1760 650 / 650 Oral 480 / 1040 Output: Urine 1450 / 3300 900 / 900 Stool 600 / 600 Other: Urine Color Yellow Straw Urine Appearance Clear Clear Urine Odor Normal Comment Multiple voids Stool Size Moderate Stool Characteristics Soft Voiding Methods Toilet Toilet Laboratory Results WBC 1.88 k/cumm (4.4-10.8) L* 08/16/19 06:50 RBC 3.81 m/cumm (4.00-5.20) L 08/16/19 06:50 Hgb 10.6 g/dL (12.0-15.5) L 08/16/19 06:50 Hct 33.7 % (36.0-46.0) L 08/16/19 06:50 MCV 88.5 fL (80-95) 08/16/19 06:50 MCH 27.8 pg (27.0-33.0) 08/16/19 06:50 MCHC 31.5 g/dL (32.0-36.0) L 08/16/19 06:50 RDW 14.2 % (11.7-14.6) 08/16/19 06:50 Plt Count 174 x1000/uL (130-400) 08/16/19 06:50 MPV 11.7 fL (8.0-11.0) H 08/16/19 06:50 Immature Gran % See Differential 08/16/19 06:50 Neutrophils % 42.0 08/16/19 06:50 Band Neutrophils % 16.0 % 08/13/19 06:30 Lymphocytes % 36.0 08/16/19 06:50 Atypical Lymphs % 2 08/16/19 06:50 Monocytes % 10.0 08/16/19 06:50 Eosinophils % 0.0 08/16/19 06:50 Basophils % 0.0 08/16/19 06:50 Metamyelocytes % 2.0 % 08/16/19 06:50 Myelocytes % 8.0 % 08/16/19 06:50 Absolute Neutrophils 0.79 k/cumm (1.2-6.7) L 08/16/19 06:50 Absolute Lymphocytes 0.71 k/cumm (1.2-3.4) L 08/16/19 06:50 Absolute Monocytes 0.19 k/cumm (0.11-0.7) 08/16/19 06:50 Absolute Eosinophils 0.00 k/cumm (0.0-0.7) 08/16/19 06:50 Absolute Basophils 0.00 k/cumm (0.0-0.2) 08/16/19 06:50 Nucleated RBCs 2 /100WBC 08/16/19 06:50 Differential Comment Manual differential 08/16/19 06:50 RBC Morphology Normal 08/16/19 06:50 Polychromasia Present 08/13/19 06:30 Sodium 140 mmol/L (136-145) 08/16/19 06:50 Potassium 4.1 mmol/L (3.5-5.1) 08/16/19 06:50 Chloride 106 mmol/L (98-107) 08/16/19 06:50 Carbon Dioxide 25.9 mmol/L (21.0-32.0) 08/16/19 06:50 Anion Gap 8.1 mmol/L (3-11) 08/16/19 06:50 BUN 12 mg/dL (7-18) 08/16/19 06:50 Creatinine 0.85 mg/dL (0.55-1.02) 08/16/19 06:50 Estimated GFR/1.73 m2 >= 60.00 (mL/min/1.73m2) 08/16/19 06:50 Glucose 136 mg/dL (74-106) H 08/16/19 06:50 Lactate 2.7 mmol/L (0.6-1.4) H* 08/12/19 13:50 Calcium 8.2 mg/dL (8.5-10.1) L 08/16/19 06:50 Magnesium 1.8 mg/dL (1.8-2.4) 08/16/19 06:50 Total Bilirubin 1.1 mg/dL (0.2-1.0) H 08/12/19 13:50 AST 33 U/L (15-37) 08/12/19 13:50 ALT 32 U/L (14-59) 08/12/19 13:50 Alkaline Phosphatase 78 U/L (46-116) 08/12/19 13:50 C-Reactive Protein 6.11 mg/dL (0.0-0.3) H 08/16/19 06:50 Total Protein 7.2 g/dL (6.4-8.2) 08/12/19 13:50 Albumin 3.0 g/dL (3.4-5.0) L 08/12/19 13:50 Stool Campylobacter PCR Negative (Negative) 08/13/19 09:00 Stool Salmonella PCR Negative (Negative) 08/13/19 09:00 Stool Shigella PCR Negative (Negative) 08/13/19 09:00 Vancomycin Trough 15.8 ug/mL (10.0-20.0) 08/16/19 09:30 Shiga Toxin (PCR) Negative (Negative) 08/13/19 09:00 Path Cons Comment 08/13/19 06:30
[2019-08-16 15:40] VITALS: BP 122/75; PULSE 51; RESP 18; TEMP 36.4; O2SAT 96
[2019-08-16 20:00] VITALS: BP 133/73; PULSE 44; RESP 18; TEMP 36.7; O2SAT 97
[2019-08-16] MEDS: Ciprofloxacin 500 MG TAB PO (20:08)
[2019-08-16] MEDS: metroNIDAZOLE 500 MG TAB PO (21:44)
[2019-08-17 01:50] VITALS: BP 105/63; PULSE 49; RESP 16; TEMP 36.8; O2SAT 96
[2019-08-17] MEDS: metroNIDAZOLE 500 MG TAB PO (05:54)
[2019-08-17 06:47] LABS: Abs Immature Grans 1.07 k/cumm (0.0-0.09); HGB 10.4 g/dL (12.0-15.5); Mean Corp. HGB Concentration 31.5 g/dL (32.0-36.0); Mean Corpuscular Volume 88.9 fL (80-95); Mean Platelet Volume 11.2 fL (8.0-11.0); Platelet Count 180 x1000/uL (130-400); RBC 3.71 m/cumm (4.00-5.20); RBC Distribution Width 14.3 % (11.7-14.6); White Blood Cell Count 19.65 k/cumm (4.4-10.8)
[2019-08-17 06:51] LABS: Anion Gap 8.8 mmol/L (3-11); BUN 13 mg/dL (7-18); C-Reactive Protein 3.65 mg/dL (0.0-0.3); CO2 26.2 mmol/L (21.0-32.0); CREATININE 0.82 mg/dL (0.55-1.02); Calcium 8.2 mg/dL (8.5-10.1); Chloride 105 mmol/L (98-107); Glucose 82 mg/dL (74-106); Magnesium 1.7 mg/dL (1.8-2.4); Potassium 3.6 mmol/L (3.5-5.1); Sodium 140 mmol/L (136-145)
[2019-08-17 07:00] VITALS: BP 123/79; PULSE 46; RESP 17; TEMP 36.6; O2SAT 96
[2019-08-17 07:27] LABS: Absolute Lymphocyte Count 1.97 k/cumm (1.2-3.4); Absolute Neutrophil Count 14.93 k/cumm (1.2-6.7); Atypical Lymphocytes % 1
[2019-08-17 07:28] LABS: Absolute Monocyte Count 2.36 k/cumm (0.11-0.7); Diff Comment Manual Differential
[2019-08-17 07:29] LABS: RBC Morphology Normal
--- NOTE | 2019-08-17 08:00 | DI.US_ITS ---
APPROVED REPORT EXAM: Comprehensive 2D, Doppler, and color-flow Echocardiogram Patient Location: In-Patient Room/Bed: [facility] Machine Etcher: Antonette Zarco RDCS (AE) Indications: Bacteremia Other Information Study Quality: Good Conclusion Left Ventricle : The left ventricle is normal size. The left ventricular systolic function is normal. The left ventricular ejection fraction is within the normal range. There is normal left ventricular wall thickness. There is normal LV segmental wall motion. The left ventricular diastolic function is normal. LVEF is 58%. Right Ventricle : The right ventricle is normal size. The right ventricular systolic function is norm al. The RVSP is 35.6mmHg. Atria : The left atrium size is normal. The right atrium size is normal. Aortic Valve : The aortic valve is normal in structure. There is no aortic valvular stenosis. Trivial aortic regurgitation. There is no evidence of aortic valve vegetation. Mitral Valve : The mitral valve is normal in structure. No evidence of mitral valve stenosis. Mild to moderate mitral regurgitation. There is no evidence of mitral valve vegetation. Tricuspid Valve : The tricuspid valve is normal in structure. There is no tricuspid valve stenosis. M ild to moderate tricuspid regurgitation. There is no evidence of tricuspid valve vegetation. Great Vessels : IVC is normal in size and collapses >50% with inspiration. There is no prior echocardiogram available for comparison. Wall motion Left Ventricle The left ventricle is normal size. The left ventricular systolic function is normal. The left ventric ular ejection fraction is within the normal range. There is normal left ventricular wall thickness. T here is normal LV segmental wall motion. The left ventricular diastolic function is normal. There is no ventricular septal defect visualized. LVEF is 58%. Right Ventricle The right ventricle is normal size. The right ventricular systolic function is normal. The RVSP is 35 .6mmHg. Atria The left atrium size is normal. The right atrium size is normal. The interatrial septum is intact wit h no evidence for an atrial septal defect. Aortic Valve The aortic valve is normal in structure. There is no aortic valvular stenosis. Trivial aortic regurgi tation. There is no aortic valvular vegetation. Mitral Valve The mitral valve is normal in structure. No evidence of mitral valve stenosis. Mild to moderate angeles l regurgitation. There is no evidence of mitral valve vegetations. Bioprosthetic mitral valve appears normal. Tricuspid Valve The tricuspid valve is normal in structure. There is no tricuspid valve stenosis. Mild to moderate tr icuspid regurgitation. There is no tricuspid valve vegetations. Pulmonic Valve The pulmonary valve is normal in structure. There is no pulmonic valvular stenosis. Trace pulmonic re gurgitation. There is no pulmonic valve vegetation. Great Vessels The aortic root is normal in size. The ascending aorta is normal in size. Aortic arch is normal in ca liber. IVC is normal in size and collapses >50% with inspiration. Pericardium There is no pericardial effusion. There is no pleural effusion. 2D Dimensions IVSD d PLAX 0.80 cm F: 0.6-1.0 LV Vol A2C d MOD 110.9 mL LVPW d PLAX 0.80 cm F: 0.6 - 1.0 LV Vol A4C d MOD 102.5 mL LVID d PLAX 5.04 cm F: 3.8 - 5.2 LA vol/ BSA A2C s A-L 44.9 mL/m2 LVDs 3.40 cm F: 2.2 - 3.5 LA vol/ BSA A4C s A-L 40.1 mL/m2 Ao Root d 2.99 cm F: 2.7 - 3.3 LA Vol/ BSA Biplane s A-L 43.1 mL/m2 RA Area A4C 13.70 cm2 LA Area A4C s MOD 21.16 cm2 RA Vol/ BSA A4C s A-L 19.5 mL/m2 LA Area A2C s MOD 22.08 cm2 Ao Asc Diam d 2.66 cm F: 2.3 - 3.1 LV EF A4C MOD 58.0 % LV EF Teichholz 60.0 % LV EF A2C MOD 58.4 % LVEF (Mc's) 58.94 % F: 54 - 74 LV EF Biplane MOD 58.9 % LV Volume 87.80 mL F: 46 - 106 SV 64.32 mL LV Volume Index 53.53 mL/m2 F: 29 - 61 SV Index 39.19 mL/m2 LV Vol Biplane MOD 109.1 mL FS 32.10 % M-Mode TAPSE 2.32 cm (M/F) >1.7 LV Diastology MV E' medial 0.095 (>0.07 m/s) E/A Ratio 1.6 LV E/e MED 10.35 (<14) MV E Vmax 0.98 (0.4-1.3 m/s) MV E' lateral 0.130 (>0.1 m/s) MV A Vmax 0.60 (0.4-1.3 m/s) LV E/e LAT 7.55 (<14) MV E/A Ratio 1.57 MV E/E' medial 10.38 MV E/E' lateral 7.57 Aortic Valve LVOT Area 2.92 cm2 AoV Area Vmax 2.27 cm2 LVOT Vmax 1.12 m/s AoV Area/ BSA (Vmax) 1.38 cm2/m2 LVOT Mean Jan. 0.74 m/s PAN Mean Jan. 1.93 cm2 LVOT Peak Grad 5.0 mmHg PAN Mean Jan. Index 1.18 cm2/m2 LVOT Mean Grad 2.6 mmHg LVOT VTI 0.261 m LVOT Diam s 1.90 cm AoV Vmax 1.44 m/s Velocity Ratio 0.77 AoV Mean Jan. 1.12 m/s AoV Peak Grad 8.3 mmHg LVOT SV 76.20 mL AoV Mean Grad 5.4 mmHg AoV VTI 0.375 m AoV Area VTI 2.03 cm2 AoV Area/ BSA (VTI) 1.24 cm/m2 Mitral Valve MV DT 250 (160-240 msec) MR PISA Radius 0.54 cm MV PHT 73 msec MR Aliasing Velocity 0.35 m/s MV Area PHT 3.03 cm2 MR PISA 1.86 cm2 MV VTI 1.677 m MV Area VTI 0.45 (4.0-6.0 cm2) Pulmonary Valve PV Vmax 0.88 (0.5-1.5 m/s) RVOT Peak Gr. 1.95 mmHg PV Peak Grad 3.1 mmHg RVOT Mean Gr. 0.90 mmHg PV Mean Grad 1.6 mmHg RVOT VTI 0.151 m PV VTI 0.177 m RVOT Vmax 0.70 m/s Tricuspid Valve TR Peak Grad 32.6 mmHg TR Vmax 2.86 m/s RA Pressure 3.00 mmHg RVSP (TR) 35.6 mmHg
[2019-08-17] MEDS: predniSONE 20 MG TAB 60 MG PO (08:27)
[2019-08-17] MEDS: Ciprofloxacin 500 MG TAB PO (08:27)
[2019-08-17] MEDS: Pantoprazole 20 MG TABCR PO (08:27)
[2019-08-17 11:35] VITALS: BP 120/78; PULSE 58; RESP 18; TEMP 36.6; O2SAT 96
[2019-08-17] MEDS: Magnesium Oxide 400 MG TAB PO (12:08)
--- NOTE | 2019-08-17 12:43 | W.NUTRFU ---
Date of service: 08/17/19 Time of Service: 12:43 Nutritional Follow up NOTE: 68 year old female admitted with colitis, IBD. BMI wnl. Following soft post op diet with excellent intake. Currently meeting nutrient needs by mouth. Not at risk for nutritional decline at this time. Will follow prn. Time Spent in Nutritional Counseling and Treatment: 0
[2019-08-17 13:32] LABS: c-ANCA Negative (Negative); p-ANCA Positive (Negative)
--- NOTE | 2019-08-17 14:08 | DSE_ITS ---
Date of service: 08/17/19 Time of Service: 14:09 DS: Diagnosis Discharge Diagnosis (1) Sepsis: Status: Acute (2) E coli bacteremia: Status: Acute (3) Ulcerative colitis: Status: Chronic (4) Gram-positive bacteremia: Status: Ruled-out Asessment and Plan: GPC in 1 anaerobic bottle only; repeat blood cultures negative; blood culture felt to be a contaminant (5) Chronic leukopenia: Status: Acute Asessment and Plan: s/p neupogen 08/17/2019 (6) COVID-19 ruled out by laboratory testing: Status: Acute (7) Hypomagnesemia: Status: Resolved (8) Hyponatremia: Status: Resolved (9) Pulmonary hypertension: Status: Chronic Asessment and Plan: Asymptomatic, mild-moderate, RVSP 35.6 mm Hg Discharge Plan Disposition Patient Disposition: HOME Condition: Stable Discharge Details Chief Complaint: Fever Clinical Impression: Ulcerative colitis Reason For Visit: FEVER, COLITIS Admit Date/Time: 08/12/19 15:28 Admit Provider: Donnie Multani Attending Provider: Donnie Multani Primary Care Provider: Julia Chatterjee ED Provider: John Bennett Hospital Course Hospital Course: Ms Parry is a 68 year old female with PMHx of UC, which had been quiescent since the original diagnosis, who was admitted to [facility] hospialist service on 08/12/2019 with what is now believed to have been an ulcerative colitis (more specifically, proctitis) flare complicated by sepsis due to E. Coli bacteremia. She was treated with empiric ciprofloxacin/flagyl as well as IVF. Blood cultures came back positive for E. Coli (sensitive to cipro), but 1 anaerobic bottle also grew GPC. While speciation is not available at the time of this discharge summary being written, it is felt to be a contaminant. Repeat blood cultures on 08/14/2019 were negative. While the patient did receive 3 days of IV vancomycin to empirically cover the GPC in the blood, her CRP continues to decline even with vancomycin being discontinued. Out of abundance of caution, we also obtained a transthoracic echocardiogram which revealed no valvular pathology. It is felt that the patient would benefit from completion of a 2 week course of ciprofloxacin, end date being 08/25/2019. Empiric systemic steroids were also initiated at that time of her admission because of strong clinical suspicion for recurrence of UC. She underwent a flexible sigmoidoscopy with biopsies on 08/13/2019 with biopsies. Visually, her mucosa was erythematous and edematous with multiple linear erosions/ulcerations. Pathology report indicates that histological features of the biopsied tissue are consistent with active idiopathic inflammatory bowel disease. Consultation was pursued with GI at [facility] [place], who at the time of the pathology report not being back recommended continuation of antibiotics, but did not recommend steroids. However, the patient did have dramatic clinical improvement on original combined therapy, and we feel comfortable prescribing a steroid taper given the results of her pathology report. Her p-ANCA/c-ANCA are not yet back and will need to be followed up by her [facility] GI team and her PCP. At this point, the patient is medically stable for discharge home today on cipro and lengthy steroid taper. 1 month of the taper is being written by me on discharge, but the remainder should be written by her outpatient provider (Dr Hayes or PCP). Taper as follows: 60 mg PO daily x 1 week, then 50 mg PO daily x 1 week, then 40 mg PO daily x 1 week, then 30 mg PO daily x 1 week, then 20 mg Po daily x 1 week, then 15 mg PO daily x 1 week, then 10 mg PO daily x 1 week, then 5 mg PO daily x 1 week, then stop. PCP to consider starting the patient on PJP prophylaxis and to check/follow vitamin D level. She ruled out for COVID-19 with a negative nasopharyngeal swab. Care for patient as well as completion of her discharge summary on day of discharge took 45 minutes. Home Meds and New Rx's Prescriptions: New ciprofloxacin HCl 500 mg Tablet 500 mg PO BID Qty: 17 RF: 0 pantoprazole [Protonix] 20 mg Tablet,Delayed Release (Dr/Ec) 20 mg PO DAILY@0730 Qty: 30 RF: 0 magnesium oxide 400 mg (241.3 mg magnesium) Tablet 400 mg PO BID@1000,2200 Qty: 30 RF: 0 prednisone 10 mg tablet See Rx Instructions .ROUTE .COMPLEX Qty: 126 RF: 0 Continued acetaminophen 500 mg Capsule 500 mg PO Q6H PRNRF: 0 Discharge Instructions Instructions: Ciprofloxacin (By mouth), Prednisone (By mouth), Pantoprazole (By mouth), Ulcerative Colitis (DC), Bacteremia (DC) Additional Instructions: You should not suddenly stop taking steroids. Taper prednisone as prescribed. Return to the hospital with any fever, bleeding, chest pain, or shortness of breath. Follow up with your PCP in 1-2 weeks, [facility] GI tomorrow as scheduled, and with Dr Hayes locally. Referrals: GASTROENTEROLOGY,[facility] [place] [OTHER] - Julia Chatterjee MD [Primary Care Provider] - Alicia Hayes DO [OSTEOPATHIC DOCTOR] - Activity:: Activity as Tolerated Equipment/Supplies:: No Equipment Needed Diet:: As Tolerated Discharge Orders Discharge Orders: Discharge Order (Routine); Ordered 08/17/19 Ordered By: Devora Esteban DS: Summary Status at Discharge Functional status at discharge: independent ambulation Overall status at discharge: patient is progressing back to baseline Mental Status: mental status grossly normal Speech and Movement: speech and movement normal Mood: congruent mood Affect: normal affect Exam Narrative Exam Narrative: General: Very pleasant middle-aged female, A&Ox3, sitting comfortably in a chair HEENT: EOMI, MMM Heart: RRR, no m/r/g Lungs: CTAB Abdomen: soft, nontender, nondistended Extremities: trace BLE edema in TEDs, no c/c. Psych Mental Status: mental status grossly normal Speech and Movement: speech and movement normal Mood: congruent mood Affect: normal affect DS: Data Vitals/I&O Vitals and I&O: Vital Signs Temperature 36.6 C 08/17/19 11:35 Temperature Source Tympanic 08/17/19 11:35 Pulse 58 L 08/17/19 11:35 Pulse Rhythm Regular 08/17/19 09:30 Respiratory Rate 18 08/17/19 11:35 Respiratory Effort Non-Labored 08/17/19 09:30 Respiratory Depth Normal 08/17/19 09:30 Respiratory Pattern Normal 08/17/19 09:30 Blood Pressure 120/78 08/17/19 11:35 Blood Pressure Mean 64 08/12/19 16:00 Blood Pressure Position Supine 08/12/19 13:31 Pulse Oximetry 96 08/17/19 11:35 Oxygen Delivery Method Room Air 08/17/19 11:35 Oxygen Flow Rate 0 08/17/19 11:35 Pain Level 0 08/17/19 11:35 Comment 08/12/19 17:05 Intake & Output 08/16/19 08/17/19 08/17/19 23:59 11:59 23:59 Intake Total 1380 / 2100 720 / 2100 Output Total 1550 / 3050 950 / 1250 300 / 1250 Balance -1550 / -2400 430 / 850 420 / 850 Intake: Oral 1380 / 2100 720 / 2100 Output: Urine 1550 / 2450 950 / 1250 300 / 1250 Other: Urine Color Straw Yellow Yellow Urine Appearance Clear Clear Clear Urine Odor None Stool Size Moderate Stool Characteristics Soft Brown Voiding Methods Toilet Toilet Toilet Data Completed and Pending Completed studies during hospitalization [Text1]: CT abdomen/pelvis 08/11/2019: Colonic wall edema involving the rectosigmoid, somewhat featureless appearance of the distal colon is noted; this appearance may be seen in ulcerative colitis. Note is also made of mild edema of the wall of the terminal ileum; this could be seen in Crohn's enteritis. Colonoscopy suggested for further evaluation. Echo 08/17/2019: Left Ventricle : The left ventricle is normal size. The left ventricular systolic function is normal. The left ventricular ejection fraction is within the normal range. There is normal left ventricular wall thickness. There is normal LV segmental wall motion. The left ventricular diastolic function is normal. LVEF is 58%. Right Ventricle : The right ventricle is normal size. The right ventricular systolic function is normal. The RVSP is 35.6mmHg. Atria : The left atrium size is normal. The right atrium size is normal. Aortic Valve : The aortic valve is normal in structure. There is no aortic valvular stenosis. Trivial aortic regurgitation. There is no evidence of aortic valve vegetation. Mitral Valve : The mitral valve is normal in structure. No evidence of mitral valve stenosis. Mild to moderate mitral regurgitation. There is no evidence of mitral valve vegetation. Tricuspid Valve : The tricuspid valve is normal in structure. There is no tricuspid valve stenosis. Mild to moderate tricuspid regurgitation. There is no evidence of tricuspid valve vegetation. Great Vessels : IVC is normal in size and collapses >50% with inspiration. There is no prior echocardiogram available for comparison. Pending studies at discharge: p-/C-ANCA Speciation on GPC in 1 anaerobic bottle blood cx 08/12/2019 (sent out to [facility]) Labs on day of discharge: Labs from last 24 hours 08/17/19 08/17/19 06:05 06:05 WBC 19.65 H D RBC 3.71 L Hgb 10.4 L Hct 33.0 L MCV 88.9 MCH 28.0 MCHC 31.5 L RDW 14.3 Plt Count 180 MPV 11.2 H Immature Gran % See Differential Neutrophils % 75.0 Band Neutrophils % 1.0 Lymphocytes % 9.0 Atypical Lymphs % 1 Monocytes % 12.0 Eosinophils % 0.0 Basophils % 0.0 Metamyelocytes % 2.0 Absolute Neutrophils 14.93 H Absolute Lymphocytes 1.97 Absolute Monocytes 2.36 H Absolute Eosinophils 0.00 Absolute Basophils 0.00 Differential Comment Manual differential RBC Morphology Normal Sodium 140 Potassium 3.6 Chloride 105 Carbon Dioxide 26.2 Anion Gap 8.8 BUN 13 Creatinine 0.82 Estimated GFR/1.73 m2 >= 60.00 Glucose 82 D Calcium 8.2 L Magnesium 1.7 L C-Reactive Protein 3.65 H Preliminary micro results at discharge 08/14/19 08:00 Blood Culture - Preliminary Blood NO GROWTH 72 HOURS 08/14/19 07:50 Blood Culture - Preliminary Blood NO GROWTH 72 HOURS 08/12/19 14:20 Blood Culture - Preliminary Blood Escherichia coli Anaerobic Gram Positive Cocci 08/12/19 13:50 Blood Culture - Preliminary Blood Escherichia coli [facility] Medical History (Updated 08/17/19 @ 14:25 by Devora Esteban MD) Chronic leukopenia (Acute) Diarrhea (Acute) Fever and chills (Acute) Hx of chronic ulcerative colitis (Acute) Not on medications Large granular lymphocyte disorder (Acute) Surgical History (Updated 08/12/19 @ 20:04 by Alicia Hayes DO) History of bone marrow biopsy (Acute) 2016 [facility] [place] Hx of colonoscopy (Chronic) 2011 @ [facility] [place] Social History Smoking/Tobacco Use Status: Never Alcohol Intake: current Alcohol Intake frequency: a few times a week Alcohol type: hard liquor Drug use: Never Do you feel safe at home: Yes Do you feel safe in your relationship?: Yes
--- NOTE | 2019-08-17 16:28 | PDOC.CMDIS ---
- If Service Date Differs Date of service: 08/17/19 Time of Service: 16:28 LACE Index Scoring Tool - Questions: Length of Stay (in days): 4 - 6 Acuity (Admit via E.D.?): Yes E.D. Visits: 2 - Answers: Total Score: 9 Risk of Readmission: Low Risk Care Management Discharge Reason for Hospitalization: Fever, Colitis Discharge Plan: Leti will return home with no additional services at this time. Her will drive her home via private vehicle. She will follow up with her PCP and discharge plan of care. She is happy to be returning home. Patient/Family Education Needs: Review discharge instructions regarding activity levels and medications, discussion of self care needs including ask me three.
== END 2019-08-17 16:18 | disposition home or self-care (01) | DRG 385 ==
LOC: ER 15:59 → MS 16:19
PROVIDERS: Surgery; Admitting Provider Internal Medicine; Emergency Provider Emergency Medicine; PCP Family Medicine; Visit Provider Internal Medicine
PROC: 0DJD8ZZ Inspection of Lower Intestinal Tract, Via Natural or Artificial Opening Endoscopic (ICD-10-PCS; CPT 45330; principal; 2019-08-13 10:00)
DX: K51.20 Ulcerative (chronic) proctitis without complications (principal); A41.51 Sepsis due to Escherichia coli [E. coli]; Z16.11 Resistance to penicillins; E87.1 Hypo-osmolality and hyponatremia; C91.Z0 Other lymphoid leukemia not having achieved remission; K52.3 Indeterminate colitis; Z03.818 Encounter for observation for suspected exposure to other biological agents ruled out; E83.42 Hypomagnesemia; I27.20 Pulmonary hypertension, unspecified
CPT/HCPCS: 45331; 36410; 36415; 80048; 80053; 85027; 87040; 87077; 87505; 88305; 93306; 96361; 96365; 96368; 99222; 99231; 99232; 99239; 99253; 99285; J1650; NC; 80202; 83605; 83735; 85007; 85025; 86140; 86255; 87186; 87324; 99284; J0744; J2704; J7512

== ENCOUNTER 2019-08-25 09:33 | Emergency (ER) | payer MEDICARE, BC, SELFPAY ==
[2019-08-25 09:40] VITALS: BP 113/74; PULSE 89; RESP 18; TEMP 37.1; O2SAT 96
[2019-08-25 10:02] LABS: Bilirubin Negative (Negative); Blood Negative (Negative); Clarity Clear (Clear); Glucose Negative (Negative); Ketones Negative (Negative); Leukocyte Esterase Negative (Negative); Nitrite Negative (Negative); Specific Gravity 1.015 (1.005-1.025); Urobilinogen 0.2 EU/dL (Up TO 0.2)
--- NOTE | 2019-08-25 10:32 | W.ED.GENAD ---
Discharge Plan Disposition Patient Disposition: HOME Condition: Stable Discharge Details Chief Complaint: Fever Clinical Impression: Fever, Hyponatremia Primary Care Provider: Julia Chatterjee ED Provider: Roman Freeman Home Meds and New Rx's Prescriptions: New amoxicillin-pot clavulanate 875-125 mg tablet 1 tab PO BID Qty: 14 RF: 0 Continued acetaminophen 500 mg Capsule 500 mg PO Q6H PRNRF: 0 pantoprazole [Protonix] 20 mg Tablet,Delayed Release (Dr/Ec) 20 mg PO DAILY@0730 Qty: 30 RF: 0 prednisone 10 mg tablet See Rx Instructions .ROUTE .COMPLEX Qty: 126 RF: 0 ciprofloxacin HCl 500 mg Tablet 500 mg PO BID Qty: 10 RF: 0 No Action cholecalciferol (vitamin D3) 50 mcg (2,000 unit) capsule 50 mcg PO DAILY RF: 0 Adult Probiotic 3 billion cell capsule 3,000 mmu cells PO DAILY RF: 0 prednisone 5 mg tablet 5 mg PO DAILY Qty: 7 RF: 0 prednisone 1 mg tablet 1 mg PO DAILY Qty: 7 RF: 0 Discharge Instructions Instructions: Hyponatremia (ED) Additional Instructions: Please continue ciprofloxacin. I prescribed an additional 5-day course. Please start taking Augmentin. You received your first dose in the emergency department. Your next dose should be late tonight. Your sodium level was slightly depressed at 131. Be sure to maintain a balanced diet. Please stay well-hydrated. Rest over the next 2 days with no exertional activities. Please follow-up with oncology as scheduled tomorrow. Please follow-up with Dr. Padilla. Call tomorrow. Return to the ER immediately for any worsening or new concerning symptoms. Referrals: Julia Chatterjee MD [Primary Care Provider] - Discharge Data Discharge Date/Time-TO BE ENTERED AT DEPARTURE: 08/25/19 13:30 Medical Decision Making 10:40 -- 68yo f with history of granular lymphocyte disorder, recent gram-negative bacteremia and sepsis secondary to colitis, taking ciprofloxacin as prescribed, here with fever and chills last night. No signs of focal bacterial infection on exam. Patient is nonseptic appearing. Hemodynamically stable. Consider neutropenia. Will check screening labs. Lungs are clear to auscultation but consider pulmonary infectious process. Will obtain chest x-ray. Considered asymptomatic UTI. Urinalysis reviewed and is negative. There is potential for ongoing bacteremia. I will recheck blood cultures today. --Chest x-ray reviewed and interpreted by radiology: No acute pulmonary findings. Labs reviewed: Sodium mildly low at 131. Patient receiving normal saline 500 mL bolus. Absolute lymphocyte count 0.64, I reviewed prior and it has been depressed in the past. On review of discharge summary from prior hospitalization, patient currently did have 1 blood culture that grew gram-positive cocci that was thought to be contaminated specimen-culture reviewed and grew E. coli and strep constellatus. Patient reassessed remained hemodynamically stable. Plan will be to discharge with close outpatient follow-up. She has scheduled follow-up tomorrow with heme-onc. I will continue Cipro for additional 5 days and also add Augmentin. I called and spoke with cover primary Celia Sullivan NP, she agree with continuing cipro, addind g+ coverage and follow-up tomorrow with onc. She will discuss with Dr. Chatterjee tomorrow. Medical Records Medical records reviewed: Yes I reviewed the patient's medical records. Lab Data Lab results reviewed: Yes I reviewed the patient's lab results. Labs: 08/25/19 10:48 Blood Blood Culture - Pending 08/25/19 10:48 Blood Blood Culture - Pending Laboratory Tests Range/Units 08/25/19 08/25/19 08/25/19 09:50 10:48 10:48 WBC (4.4-10.8) k/cumm 4.96 RBC (4.00-5.20) m/cumm 4.39 Hgb (12.0-15.5) g/dL 12.4 Hct (36.0-46.0) % 39.0 MCV (80-95) fL 88.8 MCH (27.0-33.0) pg 28.2 MCHC (32.0-36.0) g/dL 31.8 L RDW (11.7-14.6) % 15.0 H Plt Count (130-400) x1000/uL 238 MPV (8.0-11.0) fL 10.7 Immature Gran % See Differential Neutrophils % 65.0 Band Neutrophils % % 2.0 Lymphocytes % 13.0 Monocytes % 20.0 Eosinophils % 0.0 Basophils % 0.0 Metamyelocytes % % 1.0 Absolute Neutrophils (1.2-6.7) k/cumm 3.32 Absolute Lymphocytes (1.2-3.4) k/cumm 0.64 L Absolute Monocytes (0.11-0.7) k/cumm 0.99 H Absolute Eosinophils (0.0-0.7) k/cumm 0.00 Absolute Basophils (0.0-0.2) k/cumm 0.00 Differential Comment Manual differential RBC Morphology Normal Sodium (136-145) mmol/L 131 L Potassium (3.5-5.1) mmol/L 3.6 Chloride (98-107) mmol/L 94 L Carbon Dioxide (21.0-32.0) mmol/L 28.6 Anion Gap (3-11) mmol/L 8.4 BUN (7-18) mg/dL 14 Creatinine (0.55-1.02) mg/dL 0.87 Estimated GFR/1.73 m2 (mL/min/1.73m2) >= 60.00 Glucose (74-106) mg/dL 95 Calcium (8.5-10.1) mg/dL 8.5 Total Bilirubin (0.2-1.0) mg/dL 1.0 AST (15-37) U/L 27 ALT (14-59) U/L 42 Alkaline Phosphatase (46-116) U/L 92 Total Protein (6.4-8.2) g/dL 7.8 Albumin (3.4-5.0) g/dL 3.1 L Urine Color (Yellow) Yellow Urine Clarity (Clear) Clear Urine pH (5-8) 7.0 Ur Specific [place] (1.005-1.025) 1.015 Urine Protein (Negative) mg/dL Negative Urine Ketones (Negative) mg/dL Negative Urine Blood (Negative) Negative Urine Nitrite (Negative) Negative Urine Bilirubin (Negative) Negative Urine Urobilinogen (Up TO 0.2) EU/dL 0.2 Ur Leukocyte Esterase (Negative) Negative Urine Glucose (Negative) mg/dL Negative HPI General Mode of arrival: ambulatory. Date/Time Provider Initiated Documentation: 08/25/19 10:02. Limitations to Documentation: no limitations. Information obtained by: patient. HPI Narrative: 68-year-old female with history of granular lymphocytic disorder, recently hospitalized for sepsis, E. coli bacteremia, colitis, discharged has been doing well at home on ciprofloxacin until last night. Patient notes yesterday she developed low-grade fever of 99 Fahrenheit. Last night she had some chills and fever worse at 101 Fahrenheit. She states that she has been somewhat fatigued over the past couple days. She denies cough. No urinary symptoms. Patient notes continued loose stool although improved. No abdominal pain. No rash. No headache. Currently she is asymptomatic. No modifiers of symptoms. Related Data Home Medications Medication Instructions Recorded Confirmed acetaminophen 500 mg PO Q6H PRN 08/12/19 08/26/19 pantoprazole [Protonix] 20 mg PO DAILY@0730 #30 tab 08/17/19 08/26/19 prednisone See Rx Instructions .ROUTE 08/17/19 08/26/19 .COMPLEX #126 tab amoxicillin-pot clavulanate 1 tab PO BID #14 tab 08/25/19 08/26/19 ciprofloxacin HCl 500 mg PO BID #10 tab 08/25/19 08/26/19 cholecalciferol (vitamin D3) 50 50 mcg PO DAILY 08/26/19 08/26/19 mcg (2,000 unit) capsule lactobacillus combination no.8 3 3,000 mmu cells PO DAILY 08/26/19 08/26/19 billion cell capsule prednisone 1 mg tablet 1 mg PO DAILY #7 tab 08/26/19 08/26/19 prednisone 5 mg tablet 5 mg PO DAILY #7 tab 08/26/19 08/26/19 Previous Rx's Medication Instructions Recorded pantoprazole [Protonix] 20 mg PO DAILY@0730 #30 tab 08/17/19 prednisone See Rx Instructions .ROUTE 08/17/19 .COMPLEX #126 tab amoxicillin-pot clavulanate 1 tab PO BID #14 tab 08/25/19 ciprofloxacin HCl 500 mg PO BID #10 tab 08/25/19 prednisone 1 mg tablet 1 mg PO DAILY #7 tab 08/26/19 prednisone 5 mg tablet 5 mg PO DAILY #7 tab 08/26/19 Allergies Allergy/AdvReac Type Severity Reaction Status Date / Time gluten Allergy Unverified 08/26/19 11:34 methialate Allergy Severe blood Uncoded 08/26/19 11:34 poisoning General Stated Complaint: Fever SNEHAL: 3 Review of Systems All systems reviewed & are unremarkable except as noted in HPI and below Constitutional Constitutional: Reports chills and Reports fever(s) Respiratory Respiratory: Denies cough Gastrointestinal Gastrointestinal: Reports as per HPI, Denies abdominal pain and Denies vomiting [facility] Medical History (Updated 08/26/19 @ 11:56 by Alicia Hayes DO) Chronic leukopenia (Acute) Diarrhea (Acute) Fever and chills (Acute) Hx of chronic ulcerative colitis (Acute) Not on medications Large granular lymphocyte disorder (Acute) Ulcerative colitis (Chronic) Surgical History History of bone marrow biopsy (Acute) [place] [facility] [place] (Chronic) [place] [facility] [place] Social History Smoking/Tobacco Use Status: Never Alcohol Intake: current Alcohol Intake frequency: a few times a week Alcohol type: hard liquor Drug use: Never Substance use type: does not use Do you feel safe at home: Yes Do you feel safe in your relationship?: Yes Exam Const General: cooperative and no acute distress HENMT Mouth: moist mucous membranes Eyes Conjunctivae: normal conjunctivae Sclera: normal sclerae Neck Neck: trachea midline Resp Auscultation: clear to auscultation bilaterally, no rales, no rhonchi and no wheezes Cardio Jugular venous pressure: no JVD Rate: regular rate and not tachycardic Rhythm: regular rhythm GI Palpation: soft, not firm, no guarding, no masses, not rigid and nontender Skin General skin exam: no rashes or lesions noted Neuro General: patient alert, patient awake, patient oriented x3 and tone normal Extrem General: no edema Psych Appearance: grossly normal Mental Status: mental status grossly normal Speech and Movement: speech and movement normal Course Vital Signs Vital signs: Vital Signs Temperature 37.1 C 08/25/19 09:40 Pulse 89 08/25/19 09:40 Respiratory Rate 18 08/25/19 09:40 Blood Pressure 113/74 08/25/19 09:40 Pulse Oximetry 96 08/25/19 09:40 Temperature 37.1 C 08/25/19 09:40 Temperature Source Oral 08/25/19 09:40 Pulse 89 08/25/19 09:40 Respiratory Rate 18 08/25/19 09:40 Respiratory Effort Non-Labored 08/25/19 09:45 Blood Pressure 113/74 08/25/19 09:40 Blood Pressure Position Sitting 08/25/19 09:40 Pulse Oximetry 96 08/25/19 09:40 Oxygen Delivery Method Room Air 08/25/19 09:40 Oxygen Flow Rate 0 08/25/19 09:40 Lab/Test Results Lab/Test Results: 08/25/19 10:05 Blood Blood Culture - Pending 08/25/19 10:05 Blood Blood Culture - Pending Laboratory Tests Range/Units 08/25/19 09:50 Urine Color (Yellow) Yellow Urine Clarity (Clear) Clear Urine pH (5-8) 7.0 Ur Specific [place] (1.005-1.025) 1.015 Urine Protein (Negative) mg/dL Negative Urine Ketones (Negative) mg/dL Negative Urine Blood (Negative) Negative Urine Nitrite (Negative) Negative Urine Bilirubin (Negative) Negative Urine Urobilinogen (Up TO 0.2) EU/dL 0.2 Ur Leukocyte Esterase (Negative) Negative Urine Glucose (Negative) mg/dL Negative
[2019-08-25 11:03] LABS: HGB 12.4 g/dL (12.0-15.5); Mean Corp. HGB Concentration 31.8 g/dL (32.0-36.0); Mean Corpuscular Hemoglobin 28.2 pg (27.0-33.0); Mean Corpuscular Volume 88.8 fL (80-95); Mean Platelet Volume 10.7 fL (8.0-11.0); RBC 4.39 m/cumm (4.00-5.20); White Blood Cell Count 4.96 k/cumm (4.4-10.8)
--- NOTE | 2019-08-25 11:12 | DI.RAD_ITS ---
EXAM: XR CHEST 2V PA LATERAL CLINICAL HISTORY: fever TECHNIQUE: 2D digital imaging was performed. COMPARISON: CR XR PORTABLE CHEST AP from 08/11/2019 FINDINGS: MEDIASTINUM: Normal. HEART: Normal. PULMONARY VASCULATURE: Normal. LUNGS: Clear. PLEURAL SPACE: No pleural effusion or pneumothorax. BONE:Normal. OTHER FINDINGS:Orthopedic hardware in the left clavicle. IMPRESSION: No acute pulmonary findings. DATA REPOSITORY: RADIATION DOSE DELIVERED:
[2019-08-25 11:19] LABS: ALT 42 U/L (14-59); AST 27 U/L (15-37); Albumin 3.1 g/dL (3.4-5.0); Alkaline Phosphatase 92 U/L (46-116); Anion Gap 8.4 mmol/L (3-11); BUN 14 mg/dL (7-18); CO2 28.6 mmol/L (21.0-32.0); CREATININE 0.87 mg/dL (0.55-1.02); Calcium 8.5 mg/dL (8.5-10.1); Chloride 94 mmol/L (98-107); Glucose 95 mg/dL (74-106); Potassium 3.6 mmol/L (3.5-5.1); Sodium 131 mmol/L (136-145); Total Protein 7.8 g/dL (6.4-8.2)
[2019-08-25 11:56] LABS: Absolute Neutrophil Count 3.32 k/cumm (1.2-6.7)
[2019-08-25 11:57] LABS: Absolute Lymphocyte Count 0.64 k/cumm (1.2-3.4); Absolute Monocyte Count 0.99 k/cumm (0.11-0.7); Diff Comment Manual Differential
[2019-08-25 11:58] LABS: Platelet Count 238 x1000/uL (130-400); RBC Morphology Normal
[2019-08-25 11:59] LABS: Abs Immature Grans 0.05 k/cumm (0.0-0.09)
[2019-08-25] MEDS: Normal Saline 500 ML IV (12:48)
[2019-08-25 13:18] VITALS: BP 99/55; PULSE 68; RESP 17; TEMP 36.3; O2SAT 98
[2019-08-25] MEDS: Amoxicillin 875/Clav. 125 TAB PO (13:19)
== END 2019-08-25 13:30 | disposition home or self-care (01) ==
PROVIDERS: Emergency Provider Student in an Organized Health Care Education/Training Program; PCP Family Medicine
DX: E87.1 Hypo-osmolality and hyponatremia (principal); R50.9 Fever, unspecified
CPT/HCPCS: 36415; 80053; 87040; 99284; 71046; 81003; 85025

== ENCOUNTER → 2019-08-26 11:30 | Outpatient (BNVA) | payer MEDICARE, BC, SELFPAY | PROVIDERS: PCP Family Medicine; Referring Provider Family Medicine; Visit Provider Surgery | DX: K51.90 Ulcerative colitis, unspecified, without complications (principal) | CPT/HCPCS: 99213 ==

== ENCOUNTER 2019-08-31 15:36 | Outpatient (REF) | payer MEDICARE, BC, SELFPAY ==
[2019-08-31 19:02] LABS: Bilirubin Negative (Negative); Blood Trace-intact (Negative); Clarity Clear (Clear); Glucose Negative (Negative); Ketones Negative (Negative); Leukocyte Esterase Negative (Negative); Nitrite Negative (Negative); Specific Gravity 1.015 (1.005-1.025); Urobilinogen 0.2 EU/dL (Up TO 0.2)
[2019-08-31 19:05] LABS: Abs Immature Grans 0.23 k/cumm (0.0-0.09); Absolute Lymphocyte Count 0.54 k/cumm (1.2-3.4); Absolute Monocyte Count 0.75 k/cumm (0.11-0.7); Absolute Neutrophil Count 3.58 k/cumm (1.2-6.7); HCT 37.3 % (36.0-46.0); HGB 11.6 g/dL (12.0-15.5); Immature Grans % 4.5 %; Lymphocytes % 10.6; Mean Corp. HGB Concentration 31.1 g/dL (32.0-36.0); Mean Corpuscular Hemoglobin 27.8 pg (27.0-33.0); Mean Corpuscular Volume 89.4 fL (80-95); Mean Platelet Volume 10.4 fL (8.0-11.0); Monocytes % 14.7; Neutrophils % 70.2; Platelet Count 348 x1000/uL (130-400); RBC 4.17 m/cumm (4.00-5.20); RBC Distribution Width 14.5 % (11.7-14.6)
[2019-08-31 19:09] LABS: Bacteria Negative HPF (Negative); C & S Indicated? No; Casts Negative LPF (Negative); Crystals Negative HPF (Negative); Epithelial Cells Negative HPF (Negative); Mucus Negative (Negative); Other Cells Negative (Negative); RBC 0-2 HPF (0-2); WBC Negative HPF (0-5)
[2019-08-31 19:24] LABS: C-Reactive Protein 14.45 mg/dL (0.0-0.3)
== END 2019-08-31 15:56 ==
LOC: NCHCN 15:36
PROVIDERS: PCP Family Medicine; Visit Provider Family Medicine
DX: D72.819 Decreased white blood cell count, unspecified (principal); K51.90 Ulcerative colitis, unspecified, without complications; R35.0 Frequency of micturition
CPT/HCPCS: 81003; 81015; 85025; 86140

== ENCOUNTER 2019-09-01 12:37 | Outpatient (CLI) | payer MEDICARE, BC, SELFPAY ==
--- NOTE | 2019-09-01 13:00 | DI.CT_ITS ---
EXAM: CT ABDOMEN PELVIS W CLINICAL HISTORY: FEVER R50.9, RECENT E. COLI TREATED, CRP INCREASING TECHNIQUE: CT examination of the abdomen and pelvis was performed with a bolus infusion of 100 cc of Omnipaque 350. COMPARISON: CT CT ABDOMEN PELVIS W from 08/11/2019 FINDINGS: Images obtained through the lung bases are unremarkable. Note is again made of previously described thickening of the colonic wall involving the rectosigmoid, this is grossly unchanged or slightly less extensive than on prior CT of August 11, 2019. Wall thicken ing of the terminal ileum noted on the prior examination is less prominent on the current study. The re is no evidence of obstruction. No free intraperitoneal air or fluid. A small indeterminate low-attenuation lesion was previously noted in posterior segment of right hepat ic lobe on prior CT. On today's examination, there is a fluid attenuation mass at this site measurin g up to about 35 millimeters in diameter, which appears to be contiguous with dilated posterior segme nt right hepatic lobe biliary tree. Multiple new areas of subtle decreased attenuation are seen alig ortega along the biliary radicals; the findings are of a pattern consistent with hepatic bacterial infec tion/hepatic abscess given the rapid onset since the prior examination of August 11, 2019. The remainder of the hepatic parenchyma is normal in appearance. No dilatation of the common bile du ct or left hepatic ducts. Unremarkable appearance of the spleen and pancreas. No pancreatic ductal dilatation. Gallbladder is collapsed. Adrenals and kidneys are unremarkable in appearance. Abdominal aorta is of normal diameter and no ma meredith vascular abnormality is seen. No abdominal or pelvic adenopathy noted. IMPRESSION: Very rapid progression of fluid attenuation mass associated with dilated biliary radicals in the post erior segment of the right hepatic lobe with multiple new areas of associated markedly decreased hepa tic attenuation; the findings are highly suggestive of hepatic abscess and localized infection with n ew biliary obstruction presumably secondary to the infectious process. Findings of rectosigmoid colitis again noted, unchanged from August 11, 2019 CT.
[2019-09-01] MEDS: Omnipaque 350 MG/ML 100 ML BTL IJ (15:07)
[2019-09-01] MEDS: Omnipaque 350 MG/ML 50 ML BTL IJ (15:08)
== END 2019-09-01 12:57 ==
PROVIDERS: PCP Family Medicine; Visit Provider Family Medicine
DX: R50.9 Fever, unspecified (principal); K51.30 Ulcerative (chronic) rectosigmoiditis without complications; K76.89 Other specified diseases of liver
CPT/HCPCS: 74177; J3490; Q9967

== ENCOUNTER 2019-09-14 14:46 | Outpatient (REF) | payer MEDICARE, BC, SELFPAY ==
[2019-09-14 15:41] LABS: Abs Immature Grans 0.31 k/cumm (0.0-0.09); HCT 38.9 % (36.0-46.0); Mean Corp. HGB Concentration 30.8 g/dL (32.0-36.0); Mean Corpuscular Hemoglobin 27.7 pg (27.0-33.0); Mean Corpuscular Volume 89.8 fL (80-95); Mean Platelet Volume 10.7 fL (8.0-11.0); Platelet Count 282 x1000/uL (130-400); RBC 4.33 m/cumm (4.00-5.20); RBC Distribution Width 15.7 % (11.7-14.6); White Blood Cell Count 3.23 k/cumm (4.4-10.8)
[2019-09-14 15:42] LABS: ALT 72 U/L (14-59); AST 36 U/L (15-37); Albumin 3.1 g/dL (3.4-5.0); Alkaline Phosphatase 83 U/L (46-116); Anion Gap 6.3 mmol/L (3-11); BUN 13 mg/dL (7-18); Bilirubin, Total 0.2 mg/dL (0.2-1.0); CO2 29.7 mmol/L (21.0-32.0); CREATININE 0.77 mg/dL (0.55-1.02); Calcium 8.7 mg/dL (8.5-10.1); Chloride 101 mmol/L (98-107); Glucose 106 mg/dL (74-106); Potassium 4.2 mmol/L (3.5-5.1); Sodium 137 mmol/L (136-145); Total Protein 6.8 g/dL (6.4-8.2)
[2019-09-14 17:46] LABS: Absolute Lymphocyte Count 0.74 k/cumm (1.2-3.4); Absolute Monocyte Count 0.19 k/cumm (0.11-0.7); Absolute Neutrophil Count 2.16 k/cumm (1.2-6.7)
[2019-09-14 17:47] LABS: Diff Comment Manual Differential; RBC Morphology Normal
== END 2019-09-14 15:06 ==
LOC: LBN 14:46
PROVIDERS: PCP Family Medicine; Visit Provider Internal Medicine
DX: K51.30 Ulcerative (chronic) rectosigmoiditis without complications (principal); Z51.81 Encounter for therapeutic drug level monitoring
CPT/HCPCS: 80053; 85025

== ENCOUNTER 2019-09-21 14:00 | Outpatient (REF) | payer MEDICARE, BC, SELFPAY ==
[2019-09-21 14:12] LABS: Abs Immature Grans 0.07 k/cumm (0.0-0.09); HCT 37.6 % (36.0-46.0); HGB 11.8 g/dL (12.0-15.5); Mean Corp. HGB Concentration 31.4 g/dL (32.0-36.0); Mean Corpuscular Volume 89.1 fL (80-95); Mean Platelet Volume 10.1 fL (8.0-11.0); Platelet Count 261 x1000/uL (130-400); RBC 4.22 m/cumm (4.00-5.20); RBC Distribution Width 15.1 % (11.7-14.6)
[2019-09-21 14:39] LABS: ALT 38 U/L (14-59); AST 22 U/L (15-37); Albumin 3.1 g/dL (3.4-5.0); Alkaline Phosphatase 73 U/L (46-116); Anion Gap 7.9 mmol/L (3-11); BUN 10 mg/dL (7-18); Bilirubin, Total 0.3 mg/dL (0.2-1.0); CO2 29.1 mmol/L (21.0-32.0); Calcium 8.6 mg/dL (8.5-10.1); Chloride 100 mmol/L (98-107); Glucose 104 mg/dL (74-106); Potassium 4.2 mmol/L (3.5-5.1); Sodium 137 mmol/L (136-145); Total Protein 6.8 g/dL (6.4-8.2)
[2019-09-21 14:52] LABS: White Blood Cell Count 1.78 k/cumm (4.4-10.8)
[2019-09-21 14:53] LABS: Atypical Lymphocytes % 2
[2019-09-21 14:57] LABS: Absolute Neutrophil Count 0.29 k/cumm (1.2-6.7); Diff Comment Manual Differential; RBC Morphology Normal
[2019-09-21 14:58] LABS: Absolute Lymphocyte Count 1.02 k/cumm (1.2-3.4); Absolute Monocyte Count 0.39 k/cumm (0.11-0.7)
== END 2019-09-21 14:20 ==
LOC: LBN 14:00
PROVIDERS: PCP Family Medicine; Visit Provider Internal Medicine
DX: K51.30 Ulcerative (chronic) rectosigmoiditis without complications (principal); Z79.899 Other long term (current) drug therapy
CPT/HCPCS: 80053; 85025

== ENCOUNTER 2019-09-25 10:18 | Outpatient (REF) | payer MEDICARE, BC, SELFPAY ==
[2019-09-25 10:29] LABS: Abs Immature Grans 0.22 k/cumm (0.0-0.09); HCT 39.5 % (36.0-46.0); HGB 12.5 g/dL (12.0-15.5); Mean Corp. HGB Concentration 31.6 g/dL (32.0-36.0); Mean Corpuscular Hemoglobin 28.2 pg (27.0-33.0); Mean Corpuscular Volume 89.2 fL (80-95); Platelet Count 226 x1000/uL (130-400); RBC 4.43 m/cumm (4.00-5.20); RBC Distribution Width 15.1 % (11.7-14.6); White Blood Cell Count 2.63 k/cumm (4.4-10.8)
[2019-09-25 10:41] LABS: ALT 28 U/L (14-59); AST 23 U/L (15-37); Albumin 3.2 g/dL (3.4-5.0); Alkaline Phosphatase 72 U/L (46-116); Anion Gap 8.2 mmol/L (3-11); BUN 10 mg/dL (7-18); Bilirubin, Total 0.2 mg/dL (0.2-1.0); CO2 29.8 mmol/L (21.0-32.0); CREATININE 0.63 mg/dL (0.55-1.02); Calcium 8.7 mg/dL (8.5-10.1); Chloride 100 mmol/L (98-107); Glucose 87 mg/dL (74-106); Potassium 4.4 mmol/L (3.5-5.1); Sodium 138 mmol/L (136-145); Total Protein 6.8 g/dL (6.4-8.2)
[2019-09-25 11:01] LABS: Absolute Lymphocyte Count 1.55 k/cumm (1.2-3.4); Absolute Monocyte Count 0.53 k/cumm (0.11-0.7); Atypical Lymphocytes % 4
[2019-09-25 11:05] LABS: Absolute Neutrophil Count 0.39 k/cumm (1.2-6.7); Diff Comment Manual Differential; RBC Morphology Normal
== END 2019-09-25 10:38 ==
LOC: LBN 10:18
PROVIDERS: PCP Family Medicine; Visit Provider Internal Medicine Hematology & Oncology
DX: B96.89 Other specified bacterial agents as the cause of diseases classified elsewhere (principal); K75.0 Abscess of liver; C91.Z0 Other lymphoid leukemia not having achieved remission
CPT/HCPCS: 80053; 85025

== ENCOUNTER 2019-09-29 01:59 | Outpatient (RCR) | payer MEDICARE, BC, SELFPAY ==
[2019-09-29 12:33] LABS: Abs Immature Grans 1.02 k/cumm (0.0-0.09); HCT 42.6 % (36.0-46.0); HGB 13.3 g/dL (12.0-15.5); Mean Corp. HGB Concentration 31.2 g/dL (32.0-36.0); Mean Corpuscular Hemoglobin 27.5 pg (27.0-33.0); Mean Corpuscular Volume 88.2 fL (80-95); Mean Platelet Volume 10.1 fL (8.0-11.0); Platelet Count 250 x1000/uL (130-400); RBC 4.83 m/cumm (4.00-5.20); RBC Distribution Width 15.4 % (11.7-14.6); White Blood Cell Count 4.45 k/cumm (4.4-10.8)
[2019-09-29 13:22] LABS: Absolute Lymphocyte Count 2.45 k/cumm (1.2-3.4); Absolute Monocyte Count 0.36 k/cumm (0.11-0.7); Atypical Lymphocytes % 11; Promyelocytes % 1 %
[2019-09-29 13:23] LABS: Diff Comment Manual Differential; RBC Morphology Normal
[2019-09-30 15:12] LABS: Ferritin 147 ng/mL (8-252)
[2019-09-30 15:43] LABS: Iron 86 ug/dL (50-170); Total Iron Binding Capacity 232 ug/dL (250-450); Transferrin Sat 37 % (15-50)
[2019-10-01 08:49] LABS: Folate 16.7 ng/mL (See Note)
[2019-10-01 09:23] LABS: Vitamin B12 >2000 pg/mL (211-911)
== END 2019-10-09 23:59 | disposition home or self-care (01) ==
LOC: INF 01:59
PROVIDERS: Internal Medicine Hematology & Oncology; PCP Family Medicine; Visit Provider Internal Medicine Hematology & Oncology
DX: D72.819 Decreased white blood cell count, unspecified (principal)
CPT/HCPCS: 36415; 82607; 82728; 82746; 83540; 83550; 85025

== ENCOUNTER 2019-10-09 01:58 | Outpatient (CLI) | payer MEDICARE, BC, SELFPAY ==
[2019-10-09 09:22] LABS: Abs Immature Grans 0.04 10^3/uL (0.0-0.06); Absolute Eosinophil Count 0.01 10^3/uL (0.0-0.7); Absolute Lymphocyte Count 1.38 10^3/uL (1.2-3.4); Absolute Monocyte Count 0.34 10^3/uL (0.1-0.8); Eosinophils % 0.5; HCT 38.6 % (36.0-46.0); HGB 12.3 g/dL (11.2-15.7); Immature Grans % 1.9; Lymphocytes % 65.7; MCH 27.8 pg (27.0-33.0); MCHC 31.9 % (32.0-36.0); MCV 87.3 fL (80-95); MPV 9.6 fL (8.0-11.0); Monocytes % 16.2; Neutrophils % 15.7; Platelet Count 240 10^3/uL (130-400); RBC 4.42 10^6/uL (3.93-5.22); RDW 14.1 % (11.7-14.6); RDW-SD 45.2 fL
[2019-10-09 10:00] LABS: Absolute Neutrophil Count 0.33 10^3/uL (1.2-6.7); Diff Comment Diff Reviewed; RBC Morphology Normal
[2019-10-09 10:34] LABS: C-Reactive Protein 0.56 mg/dL (0.0-0.3)
== END 2019-10-09 02:18 ==
PROVIDERS: Surgery; PCP Family Medicine; Visit Provider Internal Medicine Hematology & Oncology
DX: D70.9 Neutropenia, unspecified (principal); K51.90 Ulcerative colitis, unspecified, without complications
CPT/HCPCS: 36415; 85025; 86140

== ENCOUNTER 2019-11-06 03:49 | Outpatient (CLI) | payer MEDICARE, BC, SELFPAY ==
[2019-11-06 09:41] LABS: HCT 42.2 % (36.0-46.0); MCH 27.5 pg (27.0-33.0); MCHC 30.8 % (32.0-36.0); MCV 89.4 fL (80-95); MPV 10.3 fL (8.0-11.0); Nucleated RBC 0 %; Platelet Count 222 10^3/uL (130-400); RBC 4.72 10^6/uL (3.93-5.22); RDW 13.6 % (11.7-14.6); RDW-SD 44.7 fL
[2019-11-06 10:15] LABS: ALT 45 U/L (14-59); AST 36 U/L (15-37); Albumin 3.5 g/dL (3.4-5.0); Alkaline Phosphatase 90 U/L (46-116); Bilirubin, Direct 0.09 mg/dL (0.00-0.20); Bilirubin, Total 0.4 mg/dL (0.2-1.0); C-Reactive Protein 1.24 mg/dL (0.0-0.3); Total Protein 7.3 g/dL (6.4-8.2)
[2019-11-06 12:05] LABS: Absolute Lymphocyte Count 0.98 10^3/uL (1.2-3.4); Absolute Monocyte Count 0.27 10^3/uL (0.1-0.8); Absolute Neutrophil Count 0.42 10^3/uL (1.2-6.7); WBC 1.69 10^3/uL (4.4-10.8)
[2019-11-06 12:06] LABS: Absolute Eosinophil Count 0.02 10^3/uL (0.0-0.7); Diff Comment Manual Differential; RBC Morphology Normal
== END 2019-11-06 04:09 ==
PROVIDERS: PCP Family Medicine; Visit Provider Internal Medicine Gastroenterology
DX: K51.819 Other ulcerative colitis with unspecified complications (principal)
CPT/HCPCS: 36415; 80076; 85025; 86140

== ENCOUNTER 2019-11-18 16:14 | Outpatient (REF) | payer MEDICARE, BC, SELFPAY ==
[2019-11-20 18:14] LABS: Calprotectin 109.6 mcg/g
== END 2019-11-18 16:34 ==
LOC: LBN 16:14
PROVIDERS: PCP Family Medicine; Visit Provider Internal Medicine Gastroenterology
DX: K51.819 Other ulcerative colitis with unspecified complications (principal)
CPT/HCPCS: 83993

== ENCOUNTER 2019-12-03 04:47 | Outpatient (CLI) | payer MEDICARE, BC, SELFPAY ==
[2019-12-03 10:10] LABS: Absolute Monocyte Count 0.32 10^3/uL (0.1-0.8); HCT 41.9 % (36.0-46.0); MCH 27.3 pg (27.0-33.0); MCV 87.8 fL (80-95); MPV 9.9 fL (8.0-11.0); Nucleated RBC 0 %; Platelet Count 209 10^3/uL (130-400); RBC 4.77 10^6/uL (3.93-5.22); RDW 12.9 % (11.7-14.6); RDW-SD 41.2 fL
[2019-12-03 10:35] LABS: WBC 1.86 10^3/uL (4.4-10.8)
[2019-12-03 10:36] LABS: Absolute Eosinophil Count 0.02 10^3/uL (0.0-0.7); Absolute Lymphocyte Count 1.32 10^3/uL (1.2-3.4); Atypical Lymphocytes % 4
[2019-12-03 10:37] LABS: Diff Comment Manual Differential; RBC Morphology Normal
[2019-12-04 08:49] LABS: Homocysteine 13.2 umol/L (5.0-13.9)
== END 2019-12-03 05:07 ==
PROVIDERS: PCP Family Medicine; Visit Provider Family Medicine
DX: K51.90 Ulcerative colitis, unspecified, without complications; D72.819 Decreased white blood cell count, unspecified; D70.9 Neutropenia, unspecified
CPT/HCPCS: 36415; 83090; 83735; 85025

== ENCOUNTER 2020-01-18 00:50 | Outpatient (CLI) | payer MEDICARE, BC, SELFPAY ==
--- NOTE | 2020-01-18 15:20 | DI.MAMMO_ITS ---
EXAM: MAMMO SCREENING CLINICAL HISTORY: SCREENING, Z12.31 TECHNIQUE: Mammograms were interpreted according to the usual protocol including computer analysis w [employer] CAD system, tomosynthesis and C-view imaging. COMPARISON: FINDINGS: The breasts are heterogeneously dense. No dominant mass or clumped microcalcification is identified in either breast. The current examination is compared with previous examinations including July 2016 and there has been no gross interval change in appearance in comparison with the prior studies. IMPRESSION: No specific evidence of malignancy at this time. Routine screening examinations are suggested at yea rly intervals in this age group according to the ACS ACR guidelines. BI-RADS Category 1 - Negative Breast Density - Category C - Heterogeneously dense
== END 2020-01-18 01:10 ==
PROVIDERS: PCP Family Medicine; Visit Provider Family Medicine
DX: Z12.31 Encounter for screening mammogram for malignant neoplasm of breast (principal)
CPT/HCPCS: 77063; 77067

== ENCOUNTER 2020-01-21 02:19 | Outpatient (CLI) | payer MEDICARE, BC, SELFPAY ==
[2020-01-21 09:19] LABS: Absolute Lymphocyte Count 1.17 10^3/uL (1.2-3.4); Absolute Monocyte Count 0.32 10^3/uL (0.1-0.8); HCT 40.3 % (36.0-46.0); HGB 13.1 g/dL (11.2-15.7); Lymphocytes % 72.2; MCH 27.8 pg (27.0-33.0); MCHC 32.5 % (32.0-36.0); MCV 85.4 fL (80-95); MPV 10.8 fL (8.0-11.0); Monocytes % 19.8; Nucleated RBC 0 %; RBC 4.72 10^6/uL (3.93-5.22); RDW 12.8 % (11.7-14.6); RDW-SD 39.7 fL
[2020-01-21 10:35] LABS: Absolute Neutrophil Count 0.13 10^3/uL (1.2-6.7); WBC 1.62 10^3/uL (4.4-10.8)
[2020-01-21 10:36] LABS: Diff Comment Diff Reviewed; RBC Morphology Normal
[2020-01-21 10:37] LABS: Platelet Count 150 10^3/uL (130-400)
[2020-01-21 10:51] LABS: Vitamin D 25 Total 50.2 ng/ml (30-100)
== END 2020-01-21 02:39 ==
PROVIDERS: PCP Family Medicine; Visit Provider Internal Medicine Gastroenterology
DX: K51.819 Other ulcerative colitis with unspecified complications (principal); Z79.899 Other long term (current) drug therapy
CPT/HCPCS: 36415; 82306; 85025

== ENCOUNTER 2020-01-25 15:07 | Outpatient (REF) | payer MEDICARE, BC, SELFPAY ==
[2020-01-27 21:16] LABS: Calprotectin <15.6 mcg/g
== END 2020-01-25 15:27 ==
LOC: LBN 15:07
PROVIDERS: PCP Family Medicine; Visit Provider Internal Medicine Gastroenterology
DX: K51.819 Other ulcerative colitis with unspecified complications (principal)
CPT/HCPCS: 83993

== ENCOUNTER 2020-04-21 02:59 | Outpatient (CLI) | payer MEDICARE, BC, SELFPAY ==
[2020-04-21 09:16] LABS: Abs Immature Grans 0.03 10^3/uL (0.0-0.06); Absolute Monocyte Count 0.33 10^3/uL (0.1-0.8); HCT 43.5 % (36.0-46.0); Immature Grans % 1.4; MCH 28.3 pg (27.0-33.0); MCHC 32.2 % (32.0-36.0); MCV 88.1 fL (80-95); MPV 10.3 fL (8.0-11.0); Monocytes % 14.9; Neutrophils % 6.8; Nucleated RBC 0 %; RBC 4.94 10^6/uL (3.93-5.22); RDW 12.9 % (11.7-14.6); RDW-SD 41.7 fL; WBC 2.21 10^3/uL (4.4-10.8)
[2020-04-21 09:40] LABS: ALT 32 U/L (14-59); AST 27 U/L (15-37); Albumin 3.7 g/dL (3.4-5.0); Alkaline Phosphatase 77 U/L (46-116); Anion Gap 8.5 mmol/L (3-11); BUN 18 mg/dL (7-18); Bilirubin, Total 0.5 mg/dL (0.2-1.0); CO2 27.5 mmol/L (21.0-32.0); CREATININE 0.7 mg/dL (0.55-1.02); Calcium 8.9 mg/dL (8.5-10.1); Chloride 100 mmol/L (98-107); Glucose 93 mg/dL (74-106); Potassium 4.3 mmol/L (3.5-5.1); Sodium 136 mmol/L (136-145); Total Protein 7.8 g/dL (6.4-8.2)
[2020-04-21 10:04] LABS: Platelet Count 171 10^3/uL (130-400)
[2020-04-21 10:05] LABS: Diff Comment Agrees w/ Instrument; Lymphocytes % 76.9; RBC Morphology Normal
[2020-04-21 10:18] LABS: Absolute Neutrophil Count 0.15 10^3/uL (1.2-6.7)
== END 2020-04-21 03:00 | disposition home or self-care (01) ==
LOC: LBO 02:59
PROVIDERS: PCP Family Medicine; Visit Provider Internal Medicine Hematology & Oncology
DX: C91.Z0 Other lymphoid leukemia not having achieved remission (principal)
CPT/HCPCS: 36415; 80053; 85025

== ENCOUNTER 2020-05-24 02:46 | Outpatient (CLI) | payer MEDICARE, BC, SELFPAY ==
[2020-05-24 10:37] LABS: Folate 16.8 ng/mL (8.6-20.0); Vitamin B12 724 pg/mL (193-986)
[2020-05-27 11:30] LABS: Methylmalonic Acid 0.11 nmol/mL (<=0.40)
[2020-05-30 15:08] LABS: Misc Referral (MAYO) See Comments
== END 2020-05-24 02:47 | disposition home or self-care (01) ==
PROVIDERS: PCP Family Medicine; Visit Provider Internal Medicine Gastroenterology
DX: D72.819 Decreased white blood cell count, unspecified (principal)
CPT/HCPCS: 36415; 80186; 83090; 82607; 82746

== ENCOUNTER 2020-06-02 12:26 | Outpatient (REF) | payer MEDICARE, BC, SELFPAY ==
[2020-06-03 22:10] LABS: Calprotectin <15.6 mcg/g
== END 2020-06-02 12:27 | disposition home or self-care (01) ==
LOC: LBN 12:26
PROVIDERS: PCP Family Medicine; Visit Provider Internal Medicine Gastroenterology
DX: K51.819 Other ulcerative colitis with unspecified complications (principal)
CPT/HCPCS: 83993

== ENCOUNTER 2020-09-09 11:59 | Outpatient (REF) | payer MEDICARE, BC, SELFPAY ==
[2020-09-13 14:55] LABS: Calprotectin 32.5 mcg/g
== END 2020-09-09 12:00 | disposition home or self-care (01) ==
LOC: LBN 11:59
PROVIDERS: PCP Family Medicine; Visit Provider Internal Medicine Gastroenterology
DX: K51.819 Other ulcerative colitis with unspecified complications (principal)
CPT/HCPCS: 83993

== ENCOUNTER 2020-09-23 03:06 | Outpatient (CLI) | payer MEDICARE, BC, SELFPAY ==
--- NOTE | 2020-09-23 | DI.RAD_ITS ---
Exam(s) XR KNEE LT 4V AP,LAT,TANI,PAT EXAM: XR KNEE LT 4V AP,LAT,TANI,PAT CLINICAL HISTORY: LT KNEE PAIN, M25.562. TECHNIQUE: 2D digital imaging was performed. COMPARISON: No exams were available for comparison FINDINGS: BONES: No acute fracture is present. No bony destructive lesion is seen. Mild periarticular spurrin g, greater at the patellofemoral joint.. JOINTS: The knee is normally aligned. No joint effusion is seen. SOFT TISSUE: Normal. IMPRESSION: Mild degenerative changes.. DATA REPOSITORY: RADIATION DOSE DELIVERED:
== END 2020-09-23 03:26 ==
PROVIDERS: PCP Family Medicine; Visit Provider Family Medicine
DX: M17.12 Unilateral primary osteoarthritis, left knee (principal)
CPT/HCPCS: 73564

== ENCOUNTER 2020-12-05 15:06 | Outpatient (REF) | payer MEDICARE, BC, SELFPAY ==
[2020-12-05 20:27] LABS: Abs Immature Grans 0.07 10^3/uL (0.0-0.06); Absolute Eosinophil Count 0.01 10^3/uL (0.0-0.7); Absolute Lymphocyte Count 1.25 10^3/uL (1.2-3.4); Absolute Monocyte Count 0.32 10^3/uL (0.1-0.8); Eosinophils % 0.6; HCT 42.2 % (36.0-46.0); HGB 13.3 g/dL (11.2-15.7); Immature Grans % 3.9; Lymphocytes % 70.2; MCH 28.7 pg (27.0-33.0); MCHC 31.5 % (32.0-36.0); MCV 90.9 fL (80-95); MPV 10.9 fL (8.0-11.0); Neutrophils % 7.3; Nucleated RBC 0 %; Platelet Count 179 10^3/uL (130-400); RBC 4.64 10^6/uL (3.93-5.22); RDW-SD 43.7 fL
[2020-12-05 20:29] LABS: ALT 28 U/L (14-59); AST 27 U/L (15-37); Alkaline Phosphatase 73 U/L (46-116); Anion Gap 10.2 mmol/L (3-11); BUN 13 mg/dL (7-18); Bilirubin, Total 0.5 mg/dL (0.2-1.0); CO2 26.8 mmol/L (21.0-32.0); CREATININE 0.6 mg/dL (0.55-1.02); Calcium 9.4 mg/dL (8.5-10.1); Chloride 104 mmol/L (98-107); Glucose 95 mg/dL (74-106); Potassium 4.4 mmol/L (3.5-5.1); Sodium 141 mmol/L (136-145); Total Protein 7.8 g/dL (6.4-8.2)
[2020-12-05 21:03] LABS: Absolute Neutrophil Count 0.13 10^3/uL (1.2-6.7); WBC 1.78 10^3/uL (4.4-10.8)
[2020-12-05 21:04] LABS: Diff Comment Agrees w/ Instrument; RBC Morphology Normal
[2020-12-05 21:57] LABS: Vitamin D 25 Total 62.5 ng/mL (30-100)
== END 2020-12-05 15:07 | disposition home or self-care (01) ==
LOC: NCHCN 15:06
PROVIDERS: PCP Family Medicine; Visit Provider Family Medicine
DX: E55.9 Vitamin D deficiency, unspecified (principal); D72.819 Decreased white blood cell count, unspecified; K51.90 Ulcerative colitis, unspecified, without complications; Z00.00 Encounter for general adult medical examination without abnormal findings
CPT/HCPCS: 80053; 82306; 85025

== ENCOUNTER 2021-04-11 02:19 | Outpatient (CLI) | payer MEDICARE, BC, SELFPAY ==
[2021-04-11 12:57] LABS: Abs Immature Grans 0.14 10^3/uL (0.0-0.06); Absolute Lymphocyte Count 1.17 10^3/uL (1.2-3.4); Absolute Monocyte Count 0.31 10^3/uL (0.1-0.8); HCT 41.6 % (36.0-46.0); HGB 13.1 g/dL (11.2-15.7); Immature Grans % 6.9; Lymphocytes % 57.9; MCH 29.2 pg (27.0-33.0); MCHC 31.5 % (32.0-36.0); MCV 92.7 fL (80-95); Monocytes % 15.3; Neutrophils % 19.9; Nucleated RBC 0 %; RBC 4.49 10^6/uL (3.93-5.22); RDW 12.2 % (11.7-14.6); RDW-SD 41.9 fL; WBC 2.02 10^3/uL (4.4-10.8)
[2021-04-11 13:13] LABS: ALT 21 U/L (14-59); AST 26 U/L (15-37); Albumin 3.8 g/dL (3.4-5.0); Alkaline Phosphatase 84 U/L (46-116); BUN 15 mg/dL (7-18); Bilirubin, Total 0.3 mg/dL (0.2-1.0); CREATININE 0.8 mg/dL (0.55-1.02); Calcium 8.9 mg/dL (8.5-10.1); Chloride 98 mmol/L (98-107); Glucose 93 mg/dL (74-106); Sodium 136 mmol/L (136-145)
[2021-04-11 13:22] LABS: Platelet Count 185 10^3/uL (130-400)
[2021-04-11 13:24] LABS: Diff Comment Agrees w/ Instrument; RBC Morphology Normal
== END 2021-04-11 02:20 | disposition home or self-care (01) ==
LOC: LBO 02:20
PROVIDERS: PCP Family Medicine; Visit Provider Internal Medicine Hematology & Oncology
DX: C91.Z0 Other lymphoid leukemia not having achieved remission (principal)
CPT/HCPCS: 36415; 80053; 85025

== ENCOUNTER 2021-07-31 09:31 | Outpatient (REF) | payer MEDICARE, BC, SELFPAY ==
[2021-07-31 16:53] LABS: Abs Immature Grans 0.05 10^3/uL (0.0-0.06); HCT 39.4 % (36.0-46.0); HGB 12.4 g/dL (11.2-15.7); MCH 28.5 pg (27.0-33.0); MCHC 31.5 % (32.0-36.0); MCV 91 fL (80-95); MPV 10.9 fL (8.0-11.0); Platelet Count 187 10^3/uL (130-400); RBC 4.35 10^6/uL (3.93-5.22); RDW 12.2 % (11.7-14.6)
[2021-07-31 16:59] LABS: WBC 1.21 10^3/uL (4.4-10.8)
[2021-07-31 17:48] LABS: Ferritin 242 ng/mL (8-252); TSH 0.49 uIU/mL (0.36-3.74); Vitamin B12 1074 pg/mL (193-986)
[2021-07-31 18:29] LABS: Absolute Lymphocyte Count 0.57 10^3/uL (1.2-3.4); Absolute Monocyte Count 0.47 10^3/uL (0.1-0.8); Atypical Lymphocytes % 6
[2021-07-31 18:31] LABS: Absolute Neutrophil Count 0.16 10^3/uL (1.2-6.7)
[2021-07-31 18:32] LABS: Diff Comment Manual Differential
[2021-07-31 18:33] LABS: RBC Morphology Normal
[2021-08-01 17:52] LABS: T3,Free 2.9 pg/mL (2.8-5.3)
[2021-08-01 18:41] LABS: Thyroglobulin Antibody <15 U/mL (<=60); Thyroperoxidase Antibody <28 U/mL (<=60)
== END 2021-07-31 09:32 | disposition home or self-care (01) ==
LOC: NCHCN 09:31
PROVIDERS: PCP Family Medicine; Visit Provider Nurse Practitioner Family
DX: R63.5 Abnormal weight gain (principal); R53.83 Other fatigue; N64.4 Mastodynia; D72.819 Decreased white blood cell count, unspecified
CPT/HCPCS: 86376; 82607; 82728; 84439; 84443; 84481; 85025

== ENCOUNTER 2021-08-08 15:57 | Outpatient (REF) | payer MEDICARE, BC, SELFPAY ==
[2021-08-08 14:04] LABS: Abs Immature Grans 0.61 10^3/uL (0.0-0.06); HCT 40.8 % (36.0-46.0); HGB 12.9 g/dL (11.2-15.7); MCH 28.4 pg (27.0-33.0); MCHC 31.6 % (32.0-36.0); MCV 90 fL (80-95); MPV 10.6 fL (8.0-11.0); RBC 4.54 10^6/uL (3.93-5.22); RDW 12.7 % (11.7-14.6); RDW-SD 41.9 fL; WBC 2.85 10^3/uL (4.4-10.8)
[2021-08-08 14:36] LABS: Absolute Lymphocyte Count 1.51 10^3/uL (1.2-3.4); Absolute Neutrophil Count 0.86 10^3/uL (1.2-6.7); Atypical Lymphocytes % 8; Platelet Count 244 10^3/uL (130-400)
[2021-08-08 14:37] LABS: Absolute Basophil Count 0.09 10^3/uL (0.0-0.2); Absolute Eosinophil Count 0.03 10^3/uL (0.0-0.7); Absolute Monocyte Count 0.37 10^3/uL (0.1-0.8); Anion Gap 6.5 mmol/L (3-11); BUN 14 mg/dL (7-18); CO2 28.5 mmol/L (21.0-32.0); CREATININE 0.7 mg/dL (0.55-1.02); Calcium 9.1 mg/dL (8.5-10.1); Chloride 103 mmol/L (98-107); Diff Comment Manual Differential; Glucose 102 mg/dL (74-106); Potassium 4.4 mmol/L (3.5-5.1); RBC Morphology Normal; Sodium 138 mmol/L (136-145)
== END 2021-08-08 15:58 | disposition home or self-care (01) ==
LOC: LBN 15:57
PROVIDERS: PCP Family Medicine; Visit Provider Nurse Practitioner Family
DX: D72.819 Decreased white blood cell count, unspecified (principal)
CPT/HCPCS: 80048; 85025

== ENCOUNTER → 2022-01-05 00:45 | Outpatient (CLI) | payer MEDICARE, BC, SELFPAY ==
--- NOTE | 2022-01-05 14:08 | DI.DEXA_ITS ---
Exam(s) XR DEXA BONE DENSITY W/WO MIGUEL EXAM: XR DEXA BONE DENSITY W/WO MIGUEL CLINICAL HISTORY: SCREENING FOR OSTEOPOROSIS IN POSTMENOPAUSAL WOMAN,Z78.0 TECHNIQUE: COMPARISON: No exams were available for comparison FINDINGS: Lateral Spine Image: Unremarkable. No compression deformities identified. Left hip: Total T-Score: -0.2 Total Z-Score: 1.3 T- and Z-scores: Within normal limits. Lumbar Spine: Total T-Score: -0.5 Total Z-Score: 1.6 T- and Z-scores: Within normal limits. IMPRESSION: No evidence of osteoporosis.
== END ==
PROVIDERS: PCP Family Medicine; Visit Provider Family Medicine
DX: Z78.0 Asymptomatic menopausal state (principal); Z13.820 Encounter for screening for osteoporosis
CPT/HCPCS: 77080

== ENCOUNTER → 2022-01-08 02:04 | Outpatient (CLI) | payer MEDICARE, BC, SELFPAY ==
--- NOTE | 2022-01-08 11:45 | DI.MAMMO_ITS ---
Exam(s) MAMMO SCREENING EXAM: MAMMO SCREENING CLINICAL HISTORY: SCREENING, Z12.31 TECHNIQUE: Mammograms were interpreted according to the usual protocol including computer analysis w [employer] CAD system, tomosynthesis and C-view imaging. COMPARISON: 2016 and 2019 FINDINGS: The breasts are composed of heterogeneously dense fibroglandular densities, Breast Density category C . No suspicious masses or suspicious microcalcifications are seen. No skin thickening or abnormal axillary lymph nodes are seen. There has been no significant change from prior exams. IMPRESSION: BI-RADS Category 1, Negative mammogram. Yearly screening mammography is recommended. Breast Density Category C, heterogeneously Dense. The mammogram demonstrates the patient's breast tissue is dense. Dense breast tissue is very common a nd is not abnormal but dense breast tissue can make it harder to find cancer on a mammogram. Also, de nse breast tissue may increase breast cancer risk. This information about the result of the mammogram report was provided to the patient to raise their awareness. Use this report when you speak with the patient about their risks for breast cancer, which includes their family history. At that time, you may recommend additional screening tests (Ultrasound or MRI) as they might be useful based on their r isk. A negative radiographic report should not delay biopsy if a dominant or clinically suspicious mass is present. Up to ten percent of cancers are not identified on mammography. A negative report may reinforce clinical impression. Adenosis and dense breasts may obscure an underlying neoplasm. False positive reports average 6 to 10%.
== END ==
PROVIDERS: PCP Family Medicine; Visit Provider Family Medicine
DX: Z12.31 Encounter for screening mammogram for malignant neoplasm of breast (principal)
CPT/HCPCS: 77063; 77067

== ENCOUNTER 2022-01-08 23:57 | Outpatient (REF) | payer MEDICARE, BC, SELFPAY ==
[2022-01-09 02:18] LABS: HCT 43.3 % (36.0-46.0); HGB 13.5 g/dL (11.2-15.7); MCH 28.5 pg (27.0-33.0); MCHC 31.2 % (32.0-36.0); MCV 91 fL (80-95); MPV 11.8 fL (8.0-11.0); Platelet Count 195 10^3/uL (130-400); RBC 4.74 10^6/uL (3.93-5.22); RDW 12.9 % (11.7-14.6); RDW-SD 43.6 fL; WBC 2.05 10^3/uL (4.4-10.8)
[2022-01-09 02:34] LABS: ALT 19 U/L (14-59); AST 26 U/L (15-37); Alkaline Phosphatase 102 U/L (46-116); Anion Gap 8.2 mmol/L (3-11); BUN 16 mg/dL (7-18); Bilirubin, Total 0.5 mg/dL (0.2-1.0); CO2 30.8 mmol/L (21.0-32.0); CREATININE 0.7 mg/dL (0.55-1.02); Calcium 9.5 mg/dL (8.5-10.1); Calculated LDL 200 mg/dL (<100); Chloride 101 mmol/L (98-107); Cholesterol 280 mg/dL (<200); Estimated GFR 92.98 (mL/min/1.73m2); Glucose 93 mg/dL (74-106); HDL Cholesterol 67 mg/dL (40-60); Potassium 4.5 mmol/L (3.5-5.1); Sodium 140 mmol/L (136-145); Total Protein 8.2 g/dL (6.4-8.2); Triglyceride 69 mg/dL (<150)
[2022-01-09 02:45] LABS: Vitamin D 25 Total 44.6 ng/mL (30-100)
[2022-01-09 20:46] LABS: Hepatitis C Ab w Rflx HCV PCR Negative (Negative)
== END 2022-01-08 23:58 | disposition home or self-care (01) ==
LOC: NCHCN 23:57
PROVIDERS: PCP Family Medicine; Visit Provider Family Medicine
DX: E55.9 Vitamin D deficiency, unspecified (principal); K51.90 Ulcerative colitis, unspecified, without complications; Z11.59 Encounter for screening for other viral diseases; Z00.00 Encounter for general adult medical examination without abnormal findings
CPT/HCPCS: 80053; 80061; 82306; 85027; 86803

== ENCOUNTER 2022-01-09 18:47 | Outpatient (REF) | payer MEDICARE, BC, SELFPAY ==
[2022-01-09 20:37] LABS: Abs Immature Grans 0.09 10^3/uL (0.0-0.06); Absolute Monocyte Count 0.37 10^3/uL (0.1-0.8); HCT 40.8 % (36.0-46.0); Immature Grans % 5.2; Lymphocytes % 52.3; MCH 28.7 pg (27.0-33.0); MCHC 31.9 % (32.0-36.0); MCV 90 fL (80-95); MPV 11.2 fL (8.0-11.0); Monocytes % 21.5; RBC 4.53 10^6/uL (3.93-5.22); RDW 12.4 % (11.7-14.6); RDW-SD 41.3 fL
[2022-01-09 21:47] LABS: Diff Comment Agrees w/ Instrument; RBC Morphology Normal
[2022-01-09 21:48] LABS: Platelet Count 203 10^3/uL (130-400)
[2022-01-09 21:55] LABS: Absolute Neutrophil Count 0.36 10^3/uL (1.2-6.7); WBC 1.72 10^3/uL (4.4-10.8)
== END 2022-01-09 18:48 | disposition home or self-care (01) ==
LOC: NCHCN 18:47
PROVIDERS: PCP Family Medicine; Visit Provider Family Medicine
DX: D72.819 Decreased white blood cell count, unspecified (principal)
CPT/HCPCS: 85025

== ENCOUNTER 2022-04-05 02:24 | Outpatient (CLI) | payer MEDICARE, BC, SELFPAY ==
[2022-04-05 08:57] LABS: Abs Immature Grans 0.04 10^3/uL (0.0-0.06); Absolute Lymphocyte Count 1.34 10^3/uL (1.2-3.4); Absolute Monocyte Count 0.47 10^3/uL (0.1-0.8); HCT 40.9 % (36.0-46.0); Immature Grans % 1.9; Lymphocytes % 64.4; MCH 28.8 pg (27.0-33.0); MCHC 31.8 % (32.0-36.0); MCV 91 fL (80-95); MPV 10.1 fL (8.0-11.0); Monocytes % 22.6; Neutrophils % 11.1; Platelet Count 181 10^3/uL (130-400); RBC 4.51 10^6/uL (3.93-5.22); RDW 12.6 % (11.7-14.6); RDW-SD 42.1 fL; WBC 2.08 10^3/uL (4.4-10.8)
[2022-04-05 09:12] LABS: ALT 23 U/L (14-59); AST 24 U/L (15-37); Albumin 3.7 g/dL (3.4-5.0); Alkaline Phosphatase 94 U/L (46-116); BUN 12 mg/dL (7-18); Bilirubin, Total 0.4 mg/dL (0.2-1.0); CREATININE 0.8 mg/dL (0.55-1.02); Calcium 8.8 mg/dL (8.5-10.1); Chloride 100 mmol/L (98-107); Estimated GFR 79.22 (mL/min/1.73m2); Glucose 114 mg/dL (74-106); LDH 205 U/L (81-234); Sodium 135 mmol/L (136-145)
[2022-04-05 09:24] LABS: Diff Comment Diff Reviewed; RBC Morphology Normal
[2022-04-05 09:30] LABS: Absolute Neutrophil Count 0.23 10^3/uL (1.2-6.7)
== END 2022-04-05 02:25 | disposition home or self-care (01) ==
LOC: LBO 02:24
PROVIDERS: PCP Family Medicine; Visit Provider Internal Medicine Hematology & Oncology
DX: C91.Z0 Other lymphoid leukemia not having achieved remission (principal)
CPT/HCPCS: 36415; 80053; 83615; 85025

== ENCOUNTER 2023-04-09 02:14 | Outpatient (CLI) | payer MEDICARE, BC, SELFPAY ==
[2023-04-09 08:24] LABS: Abs Immature Grans 0.06 10^3/uL (0.0-0.06); HCT 41.7 % (36.0-46.0); HGB 13.4 g/dL (11.2-15.7); MCH 28.6 pg (27.0-33.0); MCHC 32.1 % (32.0-36.0); MCV 89 fL (80-95); MPV 9.9 fL (8.0-11.0); Platelet Count 205 10^3/uL (130-400); RBC 4.69 10^6/uL (3.93-5.22); RDW 12.5 % (11.7-14.6); RDW-SD 40.8 fL
[2023-04-09 08:44] LABS: Absolute Lymphocyte Count 1.27 10^3/uL (1.2-3.4); Atypical Lymphocytes % 8
[2023-04-09 08:45] LABS: Absolute Basophil Count 0.06 10^3/uL (0.0-0.2); Absolute Eosinophil Count 0.06 10^3/uL (0.0-0.7); Absolute Monocyte Count 0.43 10^3/uL (0.1-0.8); Metamyelocytes % 1
[2023-04-09 08:46] LABS: Diff Comment Manual Differential; RBC Morphology Normal
[2023-04-09 08:47] LABS: Hemoglobin A1C 5.4 % (<5.7)
[2023-04-09 08:50] LABS: ALT 21 U/L (14-59); AST 21 U/L (15-37); Albumin 3.6 g/dL (3.4-5.0); Alkaline Phosphatase 78 U/L (46-116); Anion Gap 8.9 mmol/L (3-11); BUN 12 mg/dL (7-18); Bilirubin, Total 0.6 mg/dL (0.2-1.0); CO2 29.1 mmol/L (21.0-32.0); CREATININE 0.8 mg/dL (0.55-1.02); Calcium 9.1 mg/dL (8.5-10.1); Chloride 100 mmol/L (98-107); Estimated GFR 78.72 (mL/min/1.73m2); Glucose 101 mg/dL (74-106); Potassium 4.2 mmol/L (3.5-5.1); Sodium 138 mmol/L (136-145); Total Protein 8.2 g/dL (6.4-8.2)
[2023-04-09 08:52] LABS: Absolute Neutrophil Count 0.12 10^3/uL (1.2-6.7); WBC 1.95 10^3/uL (4.4-10.8)
[2023-04-09 10:06] LABS: Vitamin D 25 Total 52.2 ng/mL (30-100)
== END 2023-04-09 02:15 | disposition home or self-care (01) ==
LOC: LBO 02:14
PROVIDERS: PCP Family Medicine; Visit Provider Internal Medicine Hematology & Oncology
DX: Z00.00 Encounter for general adult medical examination without abnormal findings (principal); C91.Z0 Other lymphoid leukemia not having achieved remission
CPT/HCPCS: 36415; 80053; 82306; 83036; 83735; 85025

== ENCOUNTER 2023-10-22 02:44 | Outpatient (CLI) | payer MEDICARE, BC, SELFPAY ==
--- OUTSIDE RECORDS SUMMARY | 2023-10-22 02:48 | XMS_ITS | Encounter Summary ---
Author Organization [facility] [place] [address] Care Team Providers Care Retail Sales Professional Name Role Phone Julia Chatterjee MD Primary Care Provider [phone] Reason for Visit * Reason Onset Date Comments Abnormal Lab 04/11/2021 critical ANC Encounter Details Date Type Department Care Team (Late Contact Info) Description 04/11/2021 Telephone Hematology/Oncology at [address] [phone] Vicky Madrigal RN Abnormal Lab (critical ANC) Social History Tobacco Use Types Packs/Day Years Used Date Smoking Tobacco: Never Smokeless Tobacco: Never Comments:never vape Alcohol Use Standard Drinks/Week Comments Yes 0 (1 standard drink = 0.6 oz pur e alcohol) rare alcohol Sex and Gender Information Value Date Recorded Sex Assigned at Not on file Gender Identity Not on file Sexual Orientation Not on file documented as of this encounter Miscellaneous Notes * Telephone Encounter - iVcky Madrigal RN - 04/11/2021 1:27 PM EST [facility] lab called reporting critical ANC of 0.4 on Leti Parry today. 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 Providers made aware. documented in this encounter Plan of Treatment Upcoming Encounters Date Type Department Care Team (Late Contact Info) Description 04/15/2024 1:00 PM EST Office Visit Hematology/Oncology at [address] [phone] Lee Ann Jay MD [facility] [address] HEMATOLOGY [place] [address] Leti Anderson APRN [facility] HEMATOLOGY [place] [address] documented as of this encounter Visit Diagnoses Not on filedocumented in this encounter Care Teams Retail Sales Professional Relationship Specialty Start Date End Date Julia Chatterjee MD [facility] [address] [place] [address] PCP - General 01/31/10 documented as of this encounter
--- OUTSIDE RECORDS SUMMARY | 2023-10-22 02:48 | XMS_ITS | Encounter Summary ---
Author Organization [facility] Address [facility] [place] [address] Care Team Providers Care Rip Tailer Name Role Phone Julia Chatterjee MD Primary Care Provider [phone] Encounter Details Date Type Department Care Team (Latest Contact Info) Description 02/02/2020 10:30 AM EST TH Visit (TeleHealth) [place] [address] Yola Oliveros MD [facility] [place] [address] Other ulcerative colitis with complication Social History Tobacco Use Types Packs/Day Years Used Date Smoking Tobacco: Never Smokeless Tobacco: Never Comments:never vape Alcohol Use Standard Drinks/Week Comments Yes 0 (1 standard drink = 0.6 oz pur e alcohol) rare alcohol Sex and Gender Information Value Date Recorded Sex Assigned at Not on file Gender Identity Not on file Sexual Orientation Not on file documented as of this encounter Progress Notes * Yola Oliveros MD - 02/02/2020 10:30 AM EST GASTROENTEROLOGY TELEMEDICINE PROGRAM - ESTABLISHED PATIENT VISIT Chief Complaint: Leti Parry is a 69 y.o. F with history of indeterminate L sided chronic colitis Detailed IBD history: - L sided colitis diagnosed in 2011 on screening colonoscopy - Took Rowasa for a brief period, did not help much - Followed with a local go go dancer and used dietary supplements to maintain remission - Did well until August 2019 when she developed abdominal pain, fevers, loose stool. [facility] andhad CT showing inflamed colon. Flex sig showed inflammation that showed erythema and ulcerations upto 30 cm. Had E.Coli bacteremia which was complicated by liver abscess, requiring drainage and prolo nged IV antibiotics, completed in September 2019. - Colonoscopy 10/22/19: normal TI, granularity at 45 cm in sigmoid, granular/erythematous/ulcerated rectal mucosa, normal intervening mucosa between rectum and involved area of sigmoid. Path: normal Rcolon and descending colon, sigmoid with mildly active chronic colitis, rectum with severely activechronic colitis, no dysplasia. - Start Canasa 1g qhs after colonoscopy in October 2019 - [place] worse on Canasa - fecal calpro 109 - Went on low inflammatorydiet - symptoms better. Fecal calpro <15 01/2020 Interval history: Ms. Parry is doing very well. Since our last visit, she tried the Canasa suppositories for about 1week. She felt that they were giving her more cramps, mucus, and low energy. She stopped and saw her local dietitian. Between the 2 of them, they came up with a low inflammatory diet that she has been on ever since. She also has avoided triggers for her including beans and sugar. She has been on a gluten-free diet for many years. Since then, she has felt quite well. Stools have been completely formed. She is moving her bowels every 1 to 2 days. There is not been any more mucus discharge, tenesmus, urgency. There is been no bleeding. She has no abdominal pain. Review of systems: 14-point review of systems reviewed and negative except as above. Medications: Outpatient Medications Prior to Visit Medication Sig Dispense Refill ??? Mesalamine (Canasa) 1,[address] 1 suppository rectally nightly. 30 suppository 3 ??? hydrocortisone (Anusol-HC) [address] suppository rectally 2 times daily. 14 suppository 1 ??? L.acidophil/L.plantar/Bifido 7 ([employer] ADULT ORAL) Take by mouth 3 times daily. No facility-administered medications prior to visit. Allergies: is allergic to benzalkonium chloride and gluten. Past Medical History: has no past medical history on file. Past Surgical History: has a past surgical history that includes Colonoscopy, Biopsy ([id number]) (07/05/2011); Colonoscopy, Remv Lesn, Snare ([id number]) (07/05/2011); Bone Marrow Aspiration W/Bx Through Same Incision/Site ([id number]) (Right, 01/08/2017); Bone Marrow Bx, Needle/Trocar ([id number]) (Right, 01/08/2017);CT Guided Aspiration Liver (09/02/2019); Sigmoidoscopy, Diagnostic ([id number]) (N/A, 09/02/2019); IR Drain Check/Change/Remove (09/28/2019); and Colonoscopy, Biopsy ([id number]) (N/A, 10/22/2019). Family History: family history is not on file. Social History: reports that she has never smoked. She has never used smokeless tobacco. She reports current alcohol use. She reports that she does not use drugs. No Physical Examination performed during this telemedicine visit Laboratory studies, imaging, and procedures (my review of prior records): Reviewed recent labs in scanned documents including CBC drawn on January 20. Her white blood cell count was 1.62 with an ANC of 130. The rest of her blood work was unremarkable. She tells me that the fecal calprotectin drawn within the last week at [facility] was less than 15.6. Assessment/Plan: Ms. Parry is a 69 y.o. patient with a history indeterminate L sided chronic colitis since 2011, E.coli bacteremia with liver abscess in August-September 2019. She has done really well despite going off of all mesalamine therapy. She has been on diet alone and recent inflammatory stool markers have been completely normal. This is not what I would have expected. However, we agreed to continue to carefully follow her, especially given this summer's hepatic abscess thought related to active colitis. Therefore, we will plan on a repeat calprotectin in 3 to 4 months and a follow-up at that time. If she continues to feel well, we will plan on repeat colonoscopy 1 year from the last (October 2020). Otherwise, would revisit potentially using Rowasa enemas and/or doing a repeat colonoscopy sooner. Her white blood cell count is markedly low, but it has been this low in the past. Will notify Dr. Jay's office. Given that she was only on suppositories for short amount of time and never took oral mesalamine, this is clearly not playing a role. Recommendations: #Continue current diet #Plan on repeat calprotectin in 3 to 4 months with follow-up in the office soon thereafter #She will call for worsening symptoms in the meantime #Repeat colonoscopy no later than October 2020 25 min of this 30 min televisit was spent counseling the patient in the issues outlined above. Marija Oliveros MD Manager [employer]iation[employer] program manager Co-Director, [facility] Section of Gastroenterology [place] [address] documented in this encounter Plan of Treatment Upcoming Encounters Date Type Department Care Team (Late st Contact Info) Description 04/15/2024 1:00 PM EST Office Visit Hematology/Oncology at [address] [id number] Lee Ann Jay MD [facility] [place] [address] Leti Anderson APRN [facility] [place] [address] documented as of this encounter Visit Diagnoses Diagnosis Other ulcerative colitis with complication documented in this encounter Care Teams Rip Tailer Relationship Specialty Start Date End Date Julia Chatterjee MD [facility] [address] [place] [address] PCP - General 01/31/10 documented as of this encounter
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
--- OUTSIDE RECORDS SUMMARY | 2023-10-22 02:48 | XMS_ITS | Encounter Summary ---
Author Organization [facility] [place] [address] Care Team Providers Care Pockets And Pieces Necktie Operator Name Role Phone Julia Chatterjee MD Primary Care Provider [phone] Encounter Details Date Type Department Care Team (Late Contact Info) Description 01/19/2020 [place] [address] Jihan Girard PRESS ASSISTANT AND FEEDER [facility] [place] [address] Other ulcerative colitis with complication Social History [...] on file documented as of this encounter Plan of Treatment Upcoming Encounters Date Type Department Care Team (Late Contact Info) Description 04/15/2024 1:00 PM EST Office Visit Hematology/Oncology at [address] [phone] Lee Ann Jay MD [facility] [address] [place] [address] Leti Anderson, JAYLEN [facility] [place] [address] documented as of this encounter Visit Diagnoses Diagnosis Other ulcerative colitis with complication documented in this encounter Care Teams Pockets And Pieces Necktie Operator Relationship Specialty Start Date End Date Julia Chatterjee MD [facility] [address] [facility] [address] [place] [address] PCP - General 01/31/10 documented as of this encounter
--- OUTSIDE RECORDS SUMMARY | 2023-10-22 02:48 | XMS_ITS | Encounter Summary ---
[place] [address] Care Team Providers Care Hand Pattern Marker Name Role Phone Julia Chatterjee MD Primary Care Provider [phone] Reason for Visit * Reason Comments Reminder Appointment Encounter Details Date Type Department Care Team (Late Contact Info) Description 11/02/2019 Telephone [place] [phone] Adia Angel CMA GASTROENTEROLOGY DEPT Reminder Appointment Social History Tobacco Use Types Packs/Day Years [...] encounter Miscellaneous Notes * Telephone Encounter - Adia Angel CMA - 11/02/2019 8:44 AM EDT Called patient to review medications and allergies for their upcoming gastroenterology Type of Appointment: Telehealth appointment. Reach Patient during MA Check: Yes Notes for the provider: Notes for the nurse: documented in this encounter Plan of Treatment Upcoming Encounters Date Type Department Care Team (Late Contact Info) Description 04/15/2024 1:00 PM EST Office Visit Hematology/Oncology at [address] [phone] Lee Ann Jay MD [facility] DR HEMATOLOGY [place] [address] Leti Anderson APRN [facility] [place] [address] documented as of this encounter Visit Diagnoses Not on filedocumented in this encounter Care Teams Hand Pattern Marker Relationship Specialty Start Date End Date Julia Chatterjee MD [facility] [address] [place] [address] PCP - General 01/31/10 documented as of this encounter
--- OUTSIDE RECORDS SUMMARY | 2023-10-22 02:48 | XMS_ITS | Encounter Summary ---
Author Organization [facility] [place] [address] Care Team Providers Care Metal Moulder'S Assistant Name Role Phone Julia Chatterjee MD Primary Care Provider [phone] Encounter Details Date Type Department Care Team (Late Contact Info) Description 10/12/2020 Tele[place] [phone] Tahmina Chacko Social History Tobacco Use Types Packs/Day Years [...] encounter Miscellaneous Notes * Telephone Encounter - Tahmina Chacko - 10/12/2020 5:51 PM EDT Patient away. Ask to be called middle of October to schedule follow-up with Dr. Oliveros in Jun or July documented in this encounter Plan of Treatment Upcoming Encounters Date Type Department Care Team (Late Contact Info) Description 04/15/2024 1:00 PM EST Office Visit Hematology/Oncology at [address] [phone] Lee Ann Jay MD [facility] [place] [address] Leti Anderson APRN [facility] [place] [address] documented as of this encounter Visit Diagnoses Not on filedocumented in this encounter Care Teams Metal Moulder'S Assistant Relationship Specialty Start Date End Date Julia Chatterjee MD [facility] [address] [facility] [address] [place] [address] PCP - General 01/31/10 documented as of this encounter
--- OUTSIDE RECORDS SUMMARY | 2023-10-22 02:48 | XMS_ITS | Encounter Summary ---
Author Organization [facility] Address [facility] [place] [address] Care Team Providers Care Buzzle Buffer Name Role Phone Julia Chatterjee MD Primary Care Provider [phone] Reason for Visit * Reason Comments Other neupogen Encounter Details Date Type Department Care Team (Late st Contact Info) Description 08/01/2021 4:00 PM EDT Infusion Hematology Oncology at [address] [phone] Large granular lymphocytic leukemia Social History Tobacco [...] Sign Reading Time Taken Comments Blood Pressure - - Pulse - - Temperature 36.6 ??C (97.8 ??F) 08/01/2021 3:56 PM ED T Respiratory Rate - - Oxygen Saturation - - Inhaled Oxygen Concentration - - Weight - - Height - - Body Mass Index - - documented in this encounter Progress Notes * Mera Cintron RN - 08/01/2021 4:00 PM EDT INFUSION THERAPY ADMINISTRATION NOTES TIME TREATMENT STARTED: 1555 TIME TREATMENT ENDED: 1610 DIAGNOSIS: leukopenia PROTOCOL:na CYCLE #: na REASON FOR VISIT: neupogen SUBJECTIVE Leti Parry offers no complaints. OBJECTIVE neupogen 480 mcg in left upper arm REACTIONS (DESCRIPTION, TIME, INTERVENTION AND EFFECTIVENESS) none ASSESSMENT Leti Parry was awake, alert and he tolerated treatment well. PLAN Return to clinic per routine. 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, without mention of having achieved remission documented in this encounter Administered Medications Inactive Administered Medications - up to 3 most recent administrations Medication Order MAR Action Action Date Dose Rate Site filgrastim-sndz (Zarxio) (480 mcg/0.8 mL) injection 480 mcg 480 mcg, Subcutaneous, ONCE, 1 dose, On Sat08/01/21 at 1615, Bring to room temperature 30 minutes before administration, Routine Given 08/01/2021 4:03 PM EDT 480 mcg Left Arm documented in this encounter Care Teams Buzzle Buffer Relationship Specialty Start Date End Date Julia Chatterjee MD [address] [place] [address] PCP - General 01/31/10 documented as of this encounter
--- OUTSIDE RECORDS SUMMARY | 2023-10-22 02:48 | XMS_ITS | Encounter Summary ---
Author Organization [facility] [address] Care Team Providers Care Erosion Control Specialist Name Role Phone Julia Chatterjee MD Primary Care Provider Encounter Details Date Type Department Care Team (Late Contact Info) Description 01/11/2020 Orders [place] [address] Yola Oliveros MD [facility] [place] [address] Other ulcerative colitis with complication; Abscess, hepatic Social History Tobacco Use Types Packs/Day Years [...] 1:00 PM EST Office Visit Hematology/Oncology at [address] [phone] Lee Ann Jay MD [facility] [address] [place] [address] Leti Anderson, PSYCHOLOGIST PRIVATE [employer]ICE [facility] [place] [address] documented as of this encounter Visit Diagnoses Diagnosis Other ulcerative colitis with complication Abscess, hepatic Abscess of liver documented in this encounter Care Teams Erosion Control Specialist Relationship Specialty Start Date End Date Julia Chatterjee MD [facility] [address] [place] [address] PCP - General 01/31/10 documented as of this encounter
--- OUTSIDE RECORDS SUMMARY | 2023-10-22 02:48 | XMS_ITS | Encounter Summary ---
Author Organization [facility] [place] [address] Care Team Providers Care Bessemer Converter Blower Name Role Phone Julia Chatterjee MD Primary Care Provider [phone] Reason for Visit * Reason Onset Date Comments Labs Only 06/26/2021 Encounter Details Date Type Department Care Team (Late st Contact Info) Description 06/26/2021 Telephone Hematology Oncology at [address] [phone] Billie Diaz RN Labs Only Social History Tobacco Use Types Packs/Day Years [...] encounter Miscellaneous Notes * Telephone Encounter - Billie Diaz RN - 06/26/2021 2:38 PM EDT I called Leti with the results below. ----- Message from Vicky Madrigal RN sent at 06/26/2021 2:35 PM EDT ----- Regarding: FW: lab work ----- Message ----- From: Lee Ann Jay MD Sent: 06/26/2021 2:06 PM EDT To: Mera Cintron RN, Franchesca Jang, # Subject: RE: lab work Looks like she has ab against the infection but not to vaccination - if I recall, she was never vaccinated. Mera or Radha kaura can you let her know - or forward to triage person ----- Message ----- From: Franchesca Jang Sent: 06/23/2021 2:59 PM EDT To: Lee Ann Jay MD, # Subject: lab work Leti called this afternoon to let us know she got her lab work done today at [facility]. Thank you, [email or web address] documented in this encounter Plan of Treatment Upcoming Encounters Date Type Department Care Team (Late st Contact Info) Description 04/15/2024 1:00 PM EST Office Visit Hematology/Oncology at [address] [phone] Lee Ann Jay MD [facility] [address] HEMATOLOGY [place] [address] Leti Anderson, TURF FARMER [facility] HEMATOLOGY [place] [address] documented as of this encounter Visit Diagnoses Not on filedocumented in this encounter Care Teams Bessemer Converter Blower Relationship Specialty Start Date End Date Julia Chatterjee MD [facility] KINA DORADO [address] [place] [id number] PCP - General 01/31/10 documented as of this encounter
--- OUTSIDE RECORDS SUMMARY | 2023-10-22 02:48 | XMS_ITS | Encounter Summary ---
[place] [address] Care Team Providers Care Loop Cutter Name Role Phone Julia Chatterjee MD Primary Care Provider [phone] Reason for Visit * Reason Onset Date Comments Reminder Appointment 06/07/2020 Encounter Details Date Type Department Care Team (Late Contact Info) Description 06/07/2020 Telephone [place] [phone] Christy Lopez CCMA Reminder Appointment Social History Tobacco Use Types [...] encounter Miscellaneous Notes * Telephone Encounter - Christy Lopez CCMA - 06/07/2020 8:25 AM EDT Called patient to review medications and allergies for their upcoming gastroenterology Type of Appointment: Telehealth appointment. Reach Patient during MA Check: Yes Notes for the provider: Notes for the nurse: documented in this encounter Plan of Treatment Upcoming Encounters Date Type Department Care Team (Late Contact Info) Description 04/15/2024 1:00 PM EST Office Visit Hematology/Oncology at [address] [phone] Lee Ann Jay MD [facility] DR [place] [address] Leti Anderson APRN [facility] [place] [address] documented as of this encounter Visit Diagnoses Not on filedocumented in this encounter Care Teams Loop Cutter Relationship Specialty Start Date End Date Julia Chatterjee MD [facility] KINA FELIZ [facility] [address] [place] [address] PCP - General 01/31/10 documented as of this encounter
--- OUTSIDE RECORDS SUMMARY | 2023-10-22 02:48 | XMS_ITS | Encounter Summary ---
Author Organization [facility] [place] [address] Care Team Providers Care Daycare Teacher Name Role Phone Julia Chatterjee MD Primary Care Provider [phone] Encounter Details Date Type Department Care Team (Late Contact Info) Description 01/21/2020 Telephone [place] [phone] Ailyn Momin RN Social History Tobacco Use Types Packs/Day Years [...] encounter Miscellaneous Notes * Telephone Encounter - Ailyn Momin RN - 01/21/2020 10:35 AM EST Call from [facility] lab with critical lab values for Leti. WBC: 1.62 ANC: 0.[address] Oliveros and Dr. Jay aware documented in this encounter Plan of Treatment Upcoming Encounters Date Type Department Care Team (Late Contact Info) Description 04/15/2024 1:00 PM EST Office Visit Hematology/Oncology at [address] [phone] Lee Ann Jay MD [facility] [address] [place] [address] Leti Anderson APRN [facility] [address] [place] [address] documented as of this encounter Visit Diagnoses Not on filedocumented in this encounter Care Teams Daycare Teacher Relationship Specialty Start Date End Date Julia Chatterjee MD [facility] KINA FELIZ [address] [address] PCP - General 01/31/10 documented as of this encounter
--- OUTSIDE RECORDS SUMMARY | 2023-10-22 02:48 | XMS_ITS | Encounter Summary ---
Author Organization [facility] Address [facility] [place] [address] Care Team Providers Care Station Engineer Main Line Name Role Phone Julia Chatterjee MD Primary Care Provider [phone] Encounter Details Date Type Department Care Team (Latest Contact Info) Description 04/11/2022 Travel Social History Tobacco Use Types Packs/Day Years [...] 1:00 PM EST Office Visit Hematology/Oncology at [address] [phone] Lee Ann Jay MD [facility] [address] [place] [address] Leti Anderson, COPRA PROCESSOR [facility] [place] [address] documented as of this encounter Visit Diagnoses Not on filedocumented in this encounter Care Teams Station Engineer Main Line Relationship Specialty Start Date End Date Julia Chatterjee MD [address] [place] [address] [id number] PCP - General 01/31/10 documented as of this encounter
--- OUTSIDE RECORDS SUMMARY | 2023-10-22 02:48 | XMS_ITS | Encounter Summary ---
Author Organization [facility] [place] [address] Care Team Providers Care Equipment Scheduler Name Role Phone Julia Chatterjee MD Primary Care Provider [phone] Encounter Details Date Type Department Care Team (Late Contact Info) Description 05/09/2020 Orders [place] [address] Yola Oliveros MD [facility] [place] [place] [address] Other ulcerative colitis with complication; Leukopenia, unspecified type Social History Tobacco Use Types Packs/Day Years [...] 1:00 PM EST Office Visit Hematology/Oncology at [address] [phone] Lee Ann Jay MD [facility] [address] [place] [address] Leti Anderson, SHAKE MAKER [facility] [address] [place] [address] documented as of this encounter Visit Diagnoses Diagnosis Other ulcerative colitis with complication Leukopenia, unspecified type documented in this encounter Care Teams Equipment Scheduler Relationship Specialty Start Date End Date Julia Chatterjee MD [address] [place] [address] PCP - General 01/31/10 documented as of this encounter
--- OUTSIDE RECORDS SUMMARY | 2023-10-22 02:48 | XMS_ITS | Encounter Summary ---
Author Organization [facility] [place] [address] Care Team Providers Care Travertine Installer Name Role Phone Julia Chatterjee MD Primary Care Provider [phone] Encounter Details Date Type Department Care Team (Late Contact Info) Description 08/01/2021 Orders Only [place]ology [place] [address] Lee Ann Jay MD [facility] [place] [address] Social History Tobacco Use Types Packs/Day Years [...] 1:00 PM EST Office Visit Hematology/Oncology at [address] [phone] Lee Ann Jay MD [facility] [place] [address] Leti Anderson, PROJECT/PRODUCTION MANAGER IMAGING [facility] [place] [address] documented as of this encounter Visit Diagnoses Not on filedocumented in this encounter Care Teams Travertine Installer Relationship Specialty Start Date End Date Julia Chatterjee MD [address] [facility] [address] [place] [address] PCP - General 01/31/10 documented as of this encounter
--- OUTSIDE RECORDS SUMMARY | 2023-10-22 02:48 | XMS_ITS | Clinical Summary ---
Author Organization [facility] Address [facility] [place] [address] Care Team Providers Care Skin Carver Name Role Phone Julia Chatterjee MD Primary Care Provider [phone] Allergies Active Allergy Reactions Criticality Noted Date Comments Benzalkonium Chloride Gluten 08/12/2019 Medications Medication Sig Dispensed Refills Start Date End Date Status cholecalciferol, vitamin D3, (VITAMIN D3 ORAL) Take 4,000 Units by mouth daily. Active ascorbic acid, Vitamin C, (Vitamin C) 500 mg Tablet Take 500 mg by mouth 2 times daily. Active magnesium 250 mg Tablet Take by mouth. Active selenium 50 mcg Tablet Take 50 mcg by mouth. Active zinc sulfate (ZINC-220 ORAL) Take by mouth. 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 T cell rearrangement detected. STAT3 negative. Watchful waiting to date. Hepatic abcess w/ IV ATB August 2019. Good response to GCSF. Hepatic abscess 09/02/2019 Ulcerative colitis 11/07/2016 Overview (02/02/2020): - L sided colitis diagnosed in 2011 on screening colonoscopy - Took Rowasa for a brief period, did not help much - Followed with a local automotive quality manager and used dietary supplements to maintain remission - Did well until August 2019 when she developed abdominal pain, fevers, loose stool. Went to [facility] and had CT showing inflamed colon. Flex sig showed inflammation that showed erythema and ulcerations up to 30 cm. Had E.Coli bacteremia which was complicated by liver abscess, requiring drainage and prolonged IV antibiotics, completed in September 2019. - Colonoscopy 10/22/19: normal TI, granularity at 45 cm in sigmoid, granular/erythematous/ulcerated rectal mucosa, normal intervening mucosa between rectum and involved area of sigmoid. Path: normal R colon and descending colon, sigmoid with mildly active chronic colitis, rectum with severely active chronic colitis, no dysplasia. - Start Canasa 1g qhs after colonoscopy in October 2019 - [place] worse on Canasa - fecal calpro 109 - Went on low inflammatorydiet - symptoms better. Fecal calpro <15 01/2020 Leukopenia 07/09/2016 Overview (10/23/2017): WBC in 2-3 range with ANC in 500-1000 range No infections asymptomatic LGL suspected but not confirmed to date Flow cytometry DIAGNOSIS PERIPHERAL BLOOD, FLOW CYTOMETRY: ?1. ??The T-cells show a reversed CD4:CD8 ratio, but no specific abnormal ? immunophenotypic findings are seen (see comment) ?2. ??No monotypic B-cell population is identified DINO + H/o UC but presently asymptomatic. Anti-granulocyte ab cancelled by lab, not re-drawn Nov 2016 - US Splenic imaging 8cm 01/08/17 BMBx: DIAGNOSIS 1. Normocellular marrow with normal trilineage hematopoesis, with minor CD8+ T- cell ??interstitial infiltrate (5% of marrow) 2. Neutropenia, increased large granular lymphocytes, peripheral blood 3. NK clonality studies pending. DISCUSSION The findings are suspicious ??but not diagnostic for ?Large Granular lymphocytic ??Leukemia . The T lymphocytes are CD8 dominant, but do not show aberrancy by flow ??analysis. NK cells are not interrogated for clonality by our studies and clonality ??studies ( KIR assessment by flow ) are being pursued at the [place]. Should ??cytopenias persist , it may be prudent to send out peripheral blood for ??STAT3 ??mutation analysis (please contact the lab for further information) ??TCR gene ??rearrangement studies are ongoing. Separate report to follow. RESULTS: ??The appropriate signals were obtained with positive and negative (reactive) ??control DNAs. ?? Clonal T-cell receptor gene rearrangement was detected by PCR ??analysis ( TBC, TGA, TGB primer sets) . INTERPRETATION: ?? Clonal T-cell receptor gene rearrangement detected. Normal [...] LGL but we cannot say with certainty Social History Tobacco Use Types Packs/Day Years Used Date Smoking Tobacco: Never Smokeless Tobacco: Never Tobacco Cessation:Counseling Given: Not Answered Comments:never vape Alcohol Use Standard Drinks/Week Comments Yes 4 (1 standard drink = 0.6 oz pur e alcohol) Sex and Gender Information Value Date Recorded Sex Assigned at Not on file Gender Identity Not on file Sexual Orientation Not on file Last Filed Vital Signs Vital Sign Reading [...] Mass Index 27.04 04/17/2023 10:35 AM EST Plan of Treatment Upcoming Encounters Date Type Department Care Team (Late st Contact Info) Description 04/15/2024 1:00 PM EST Office Visit Hematology/Oncology at [address] [address] Lee Ann Jay MD [facility] [place] [address] Leti Anderson APRN [facility] [place] [address] Health Maintenance Due Date Last Done Comments CT Colonography 1950 FIT DNA 1950 FIT 1950 Pneumoccocal Vaccine: 65+ (1 of 2 - PCV) 11/28/1957 Tdap adult 11/28/1970 Tetanus vaccine 11/28/1970 Zoster vaccine (1 of 2) 11/28/1970 Breast Cancer Share Decision Needed 1991 Breast Cancer screening 1991 Advance Directive 11/28/2006 Bone Density Scan 11/28/2016 Covid-19 Vaccine (1 - 2022-2 4 season) 2022 Influenza (Flu) vaccine (1 o f 1 - Influenza standard series) 11/10/2023 Colonoscopy 04/12/2024 04/12/2022, 020 04/2022, 04/12/2022, Additional history exists Colorectal Cancer Screening 04/12/2024 Sigmoidoscopy 09/01/2024 09/02/2019 Sigmoidoscopy (10 year) with FIT yearly 04/12/2032 04/12/2022, 04/12/2022, 04/12/2022, Additional history exists Hepatitis C Screening Completed 07/09/2016 Diabetes Screening (HgbA1C o r Glucose) Discontinued 04/09/2023, 04/09/2023, 09/04/2019, Additional history exists Procedures Procedure Name Priority Date/Time Associated Diagnosis Comments COMPREHENSIVE METABOLIC PANEL Routine 04/09/2023 COLONOSCOPY Routine 04/12/2022 7:40 AM EST HEPATITIS C ANTIBODY Routine 07/09/2016 12:00 PM EDT Leukopenia, unspecified type from Last 3 Months or Most Recently Relevant to Health Maintenance Results * Comprehensive metabolic panel (non-fasting) (04/09/2023) Glucose 101 Blood Urea Nitrogen 12 Creatinine 0.8 Sodium 138 Potassium 4.2 Calcium 9.1 Protein, Total 8.2 Albumin 3.6 Bilirubin, Total 0.6 Alkaline Phosphatase 78 Aspartate Aminotransferase 21 Alanine Aminotransferase 21 Blood 04/09/2023 Historical Provider CHEMISTRY ORDERAB LES * COLONOSCOPY (04/12/2022 7:40 AM EST) COLONOSCOPY [facility] Endoscopy ___ Procedure Date: 04/12/2022 7:40 AM ? Patient Name: Leti Parry ? Date of : 1950 ? Age: 71 ? Order #: [id number] ? Instrument Name: [id number] ? ___ Procedure: ? Colonoscopy Indications: ? Disease activity assessment of ? left-sided chronic ulcerative ? colitis Patient Profile: ? This is a 71 year old female. This ? patient has left-sided ulcerative ? colitis, is taking no medication ? therapy for this disease and is ? asymptomatic. Providers: ? Yola. Inder Oliveros MD, Sherin Lawrence, ? Roman Spence, Network And Threat Support Specialist Referring MD: ?Julia Chatterjee MD Medicines: ? Midazolam 4 mg IV, Fentanyl 125 ? micrograms IV Complications: ? No immediate complications. ___ Procedure: ? Pre-Anesthesia Assessment: ? - Prior to the procedure, a History ? and Physical was performed, and ? patient medications and allergies ? were reviewed. The patient is ? competent. The risks and benefits ? of the procedure and the sedation ? options and risks were discussed ? with the patient. All questions ? were answered and informed consent ? was obtained. Patient ? identification and proposed ? procedure were verified by the ? physician in the pre-procedure area ? in the endoscopy suite. Mental ? Status Examination: alert and ? oriented. Airway Examination: ? normal oropharyngeal airway and ? neck mobility. Respiratory ? Examination: clear to auscultation. ? CV Examination: normal. ASA Grade ? Assessment: II - A patient with ? mild systemic disease. After ? reviewing the risks and benefits, ? the patient was deemed in ? satisfactory condition to undergo ? the procedure. The anesthesia plan ? was to use moderate sedation / ? analgesia (conscious sedation). ? Immediately prior to administration ? of medications, the patient was ? re-assessed for adequacy to receive ? sedatives. The heart rate, ? respiratory rate, oxygen ? saturations, blood pressure, ? adequacy of pulmonary ventilation, ? and response to care were monitored ? throughout the procedure. The ? physical status of the patient was ? re-assessed after the procedure. ? The procedure, indications, ? benefits, risks and alternatives ? were explained to the patient. ? Specifically discussed were ? potential complications including, ? but not limited to, bleeding, ? perforation, infection, missing a ? cancer, and adverse medication ? reactions. The patient was placed ? in the left lateral decubitus ? position, and a digital rectal exam ? was performed. The Colonoscope was ? inserted in the anus and under ? direct visualization, advanced to ? the terminal ileum, with ? identification of the appendiceal ? orifice and IC valve. Careful ? inspection was made as the ? colonoscope was withdrawn. The ? colonoscopy was performed without ? difficulty. The patient tolerated ? the procedure well. The quality of ? the bowel preparation was evaluated ? using the BBPS ([place] Bowel ? Preparation Scale) with scores of: ? Right Colon = 3 (entire mucosa seen ? well with no residual staining, ? small fragments of stool or opaque ? liquid), Transverse Colon = 3 ? (entire mucosa seen well with no ? residual staining, small fragments ? of stool or opaque liquid) and Left ? Colon = 3 (entire mucosa seen well ? with no residual staining, small ? fragments of stool or opaque ? liquid). The total BBPS score ? equals 9. The quality of the bowel ? preparation was excellent. Scope ? withdrawal time was 21 minutes. ? Findings: ? The perianal and digital rectal examinations were ? normal. ? In the most distal ~15 cm within the rectum there was ? continuous and circumferential inflammation ? characterized by granularity and altered vascularity ? with scattered discrete shallow round erosions. There ? was also a focal 5 mm nodule with surface superficial ? erosion that seemed most consistent with an ? inflammatory polyp. Several biopsies were obtained ? with cold forceps for histology in a non-targeted ? manner from the rectum (including the nodule). ? Additionally, non-targeted biopsies were taken from ? the right colon and left colon with a cold biopsy ? forceps. ? A 3 mm polyp was found in the cecum. The polyp was ? sessile. The polyp was removed with a cold biopsy ? forceps. Resection and retrieval were complete. ? Scattered small-mouthed diverticula were found in the ? sigmoid colon. ? The terminal ileum appeared normal' IC valve was ? mildly patulous. ? Moderate Sedation: ? I was present during the intraservice time as ? documented by the sedation RN. Impression: ?- Ulcerative colitis. Moderate ? inflammation limited to the rectum. ? Biopsied. Biopsies taken from R and ? L colon for was found in the ? rectum. This was moderate in ? severity. ? - One 3 mm polyp in the cecum, ? removed with a cold biopsy forceps. ? Resected and retrieved. ? - The examined portion of the ileum ? was normal. ? - Biopsies performed in the right ? colon and in the left colon. ? - Mild sigmoid diverticulosis. Recommendation: ?- Follow-up in IBD Clinic. Consider ? addition of mesalamine ? suppositories. ? - Await pathology results. ? Attending Participation: ? I personally performed the entire procedure. ? _ L. Inder Oliveros MD 04/12/2022 9:09:26 AM Number of Addenda: 0 Note Initiated On: 04/12/2022 7:40 AM PROVATION 04/12/2022 7:40 AM EST Julia Chatterjee MD GENERAL SURGICAL ORD ERABLES Performing Organization Address [facility] Co de Phone Number PROVATION * Hepatitis C Antibody (07/09/2016 12:00 PM EDT) Hepatitis C Antibody Negative Negative [facility] Comment: An updated Hepatitis C Ab assay reagent was implemented on 05/23/16. Please contact Dr. Alfaro at [phone] with any questions or concerns. Blood specimen (specimen) 07/09/2016 12:00 PM EDT 07/09/2016 12:09 PM EDT Narrative Resulting Agency Comment Spec In Lab Lee Ann Jay MD CHEMISTRY LILA ROBERTS Performing Organization Address [facility] Co de Phone Number [facility] [place] [address] from Last 3 Months or Most Recently Relevant to Health Maintenance Advance Directives * Full Code (Latest Code Status on File) Date Activated Date Inactivated Comments 09/28/2019 9:16 AM 09/29/2019 4:37 AM Question Answer Comments Does patient have capacity to make decision: Yes * Full Code Date Activated Date Inactivated Comments 09/02/2019 1:04 AM 09/07/2019 7:28 PM Question Answer Comments Does patient have capacity to make decision: Yes Care Teams Skin Carver Relationship Specialty Start Date End Date Julia Chatterjee MD [address] [place] [address] [address] [place] [address] PCP - General 01/31/10
--- OUTSIDE RECORDS SUMMARY | 2023-10-22 02:48 | XMS_ITS | Encounter Summary ---
Author Organization [facility] [place] [address] Care Team Providers Care Policy Officer Name Role Phone Julia Chatterjee MD Primary Care Provider Reason for Visit * Reason Onset Date Comments Labs Only 04/21/2020 critical ANC Encounter Details Date Type Department Care Team (Late st Contact Info) Description 04/21/2020 Telephone Hematology/Oncology at [address] [phone] Mera Cintron RN Labs Only (critical ANC) Social History Tobacco Use Types [...] encounter Miscellaneous Notes * Telephone Encounter - Mera Cintron RN - 04/21/2020 10:56 AM EST Critical ANC reviewed with , pt being seen next wed. In clinic, nothing to do at this time. Results for AN PARRY ( ) as of 04/21/2020 10:27 Ref. Range 12/03/2019 00:00 04/21/2020 00:00 WBC Unknown 1.86 2.21 Hemoglobin Unknown 13.0 14.0 Hematocrit Unknown 41.9 43.5 Platelets Unknown 209 171 Neutr Abs (ANC) Unknown 0.2 0.15 documented in this encounter Plan of Treatment Upcoming Encounters Date Type Department Care Team (Late st Contact Info) Description 04/15/2024 1:00 PM EST Office Visit Hematology/Oncology at [address] [address] Lee Ann Jay MD [facility] DR HEMATOLOGY [place] [address] An Anderson APRN [facility] HEMATOLOGY [place] [address] documented as of this encounter Procedures Procedure Name Priority Date/Time Associated Diagnosis Comments CBC (WITH DIFF) Routine 04/21/2020 documented in this encounter Results * CBC (with Diff) (04/21/2020) White Blood Cell 2.21 Hemoglobin 14.0 Hematocrit 43.5 Platelet 171 ANC 0.15 Blood 04/21/2020 Historical Provider HEMATOLOGY ORDERA BLES documented in this encounter Visit Diagnoses Not on filedocumented in this encounter Care Teams Policy Officer Relationship Specialty Start Date End Date Julia Chatterjee MD [facility] [address] [place] [address] PCP - General 01/31/10 documented as of this encounter
--- OUTSIDE RECORDS SUMMARY | 2023-10-22 02:48 | XMS_ITS | Encounter Summary ---
Author Organization [facility] [place] [address] Care Team Providers Care Senior Financial Accountant Name Role Phone Julia Chatterjee MD Primary Care Provider [phone] Encounter Details Date Type Department Care Team (Late st Contact Info) Description 08/03/2021 Telephone Hematology/Oncology at [address] [phone] Blaire Alarcon RN Social History Tobacco Use Types Packs/Day [...] encounter Miscellaneous Notes * Telephone Encounter - Blaire Kyle RN - 08/03/2021 12:42 PM EDT Called patient. She is feeling better. Dr Jay aware patient will not be coming in today. ----- Message from Caridad Addison sent at 08/03/2021 11:50 AM EDT ----- Regarding: Does Not want Neupogen shot today. Can we call Leti back she is not feeling like she wants the shot today is what she said and didn't want to go into detail with me. I asked if nursing could call her and she said yes and then she will discuss why. Can we call her back at [phone]. Thanks Valentina~ documented in this encounter Plan of Treatment Upcoming Encounters Date Type Department Care Team (Late st Contact Info) Description 04/15/2024 1:00 PM EST Office Visit Hematology/Oncology at [address] [address] Lee Ann Jay MD [facility] DR HEMATOLOGY AND [place] [address] Leti Anderson APRN [facility] HEMATOLOGY AND [place] [address] documented as of this encounter Visit Diagnoses Not on filedocumented in this encounter Care Teams Senior Financial Accountant Relationship Specialty Start Date End Date Julia Chatterjee MD [facility] [address] [place] [address] PCP - General 01/31/10 documented as of this encounter
--- OUTSIDE RECORDS SUMMARY | 2023-10-22 02:48 | XMS_ITS | Encounter Summary ---
Author Organization [facility] [place] [address] Care Team Providers Care Jailor Name Role Phone Julia Chatterjee MD Primary Care Provider [phone] Reason for Visit * Reason Onset Date Comments Other 12/03/2022 Letting us know about shingles Encounter Details Date Type Department Care Team (Late st Contact Info) Description 12/03/2022 Telephone Hematology/Oncology at [address] [phone] Michelle Layne, RN Other (Letting us know about shingles ) Social History Tobacco Use Types Packs/Day Years [...] encounter Miscellaneous Notes * Telephone Encounter - Michelle Layne RN - 12/03/2022 1:09 PM EDT Leti Keenan Sohan [id number] Leti called to let us know that she has shingles and to see if 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 She noticed the a spot under her R arm last 11/28and then it started to have pain. She went to the walk in clinic and was started on valacyclovir 3xa day for 7 days. She now has two spots one about a quarter size. They are in the same dermatone region. They are weepy and not crusted over yet. I let her know that the valacyclovir is the standard treatment and to call if it does not get better or spreads further than that dermatone. documented in this encounter Plan of Treatment Upcoming Encounters Date Type Department Care Team (Late st Contact Info) Description 04/15/2024 1:00 PM EST Office Visit Hematology/Oncology at [address] [phone] Lee Ann Jay MD [facility] DR HEMATOLOGY [place] [address] Leti Anderson APRN [facility] DR [place]EMATOLOGY [place] [address] documented as of this encounter Visit Diagnoses Not on filedocumented in this encounter Care Teams Jailor Relationship Specialty Start Date End Date Julia Chatterjee MD [facility] [address] [place] [address] PCP - General 01/31/10 documented as of this encounter
--- OUTSIDE RECORDS SUMMARY | 2023-10-22 02:48 | XMS_ITS | Encounter Summary ---
Author Organization [facility] [place] [address] Care Team Providers Care Garment Sewer Hand Name Role Phone Julia Chatterjee MD Primary Care Provider [phone] Encounter Details Date Type Department Care Team (Latest Contact Info) Description 03/19/2023 8:12 AM EST - 03/19/2023 11:59 PM EST Hospital [place] [phone] Discharge Disposition: Home Social History Tobacco Use Types Packs/Day Years Used Date Smoking Tobacco: Never Smokeless Tobacco: Never Comments:never vape Alcohol Use Standard Drinks/Week Comments Yes 4 (1 standard drink = 0.6 oz pur e alcohol) Sex and Gender Information Value Date Recorded Sex Assigned at Not on file Gender Identity Not on file Sexual Orientation Not on file documented as of this encounter Medications at Time of Discharge Medication Sig Dispensed Refills Start Date End Date magnesium 250 mg Tablet Take by mouth. selenium 50 mcg Tablet Take 50 mcg by mouth. zinc sulfate (ZINC-220 ORAL) Take by mouth. cholecalciferol, vitamin D3, (VITAMIN D3 ORAL) Take 4,000 Units by mouth daily. ascorbic acid, Vitamin C, (Vitamin C) 500 mg Tablet Take 500 mg by mouth 2 times daily. filgrastim-sndz (Zarxio) 480 mcg/0.8 mL SyringeIndications:La rge granular lymphocytic leukemia Inject 0.8 mLs subcutaneously once for 1 dose. 0.8 mL 04/11/2022 04/17/2023 documented as of this encounter Plan of Treatment Upcoming Encounters Date Type Department Care Team (Late Contact Info) Description 04/15/2024 1:00 PM EST Office Visit Hematology/Oncology at [address] [phone] Lee Ann Jay MD [facility] DR HEMATOLOGY [place] [address] Leti Anderson, CLERICAL TRANSCRIBER [facility] HEMATOLOGY [place] [address] documented as of this encounter Procedures Procedure Name Priority Date/Time Associated Diagnosis Comments SURGICAL PATHOLOGY REPORT Routine 03/19/2023 12:43 PM EST documented in this encounter Results * (ABNORMAL) Surgical Pathology Report (03/19/2023 12:43 PM EST) Final Diagnosis [id number] ? Location: [facility] The signing pathologist has (i) examined the relevant preparation(s) for the specimen(s) and (ii) rendered or confirmed the diagnosis(es). . ?Surgical Pathology DIAGNOSIS Right buddhism, skin shave biopsy: - ??Invasive squamous cell carcinoma, well differentiated, transected Electronically signed by: ?Berna PONCE, PhD, Nolan Keenan Verified: ??03/28/2023 11:42 ??Dermatopathol ogist, Bone & Soft Tissue Pathologist Performed at: ??-[facility] Dept. [place]ology, [place] [address] Cultural Anthropology Professor: Dyllan Vazquez MD, AP, ??CLIA Certificate: [id number] DISCUSSION THIS RESULT REQUIRES PHYSICIAN/A.P.P . FOLLOW UP SPECIMEN(S) SUBMITTED A - RIGHT TENRIISM, SHAVE (1) Referring Identifier: ?(not provided) CLINICAL INFORMATION 4 mm keratotic nodule; SCC SPECIMEN PROCESSING A - Labeled/Fixativ e: Right buddhism, formalin. Quantity/Size: ??Single, 0.7 x 0.6 x 0.2 cm. Tissue Description: Shave of a ford-pink skin papule. Sections/Proces sing: Inked, trisected and entirely submitted in 1 cassette labeled A1. ??sns(A) 03/28/2023 11:42 AM EST [facility] SPECIMEN FROM SKIN / Unknown 03/19/2023 12:43 PM EST 03/19/2023 12:43 PM EST Stefania Gill MD PATHOLOGY/CYTOLOGY O RDERABLES [facility] [address] [place] [address] documented in this encounter Visit Diagnoses Not on filedocumented in this encounter Care Teams Garment Sewer Hand Relationship Specialty Start Date End Date Julia Chatterjee MD [address] [place] [address] PCP - General 01/31/10 documented as of this encounter
--- OUTSIDE RECORDS SUMMARY | 2023-10-22 02:48 | XMS_ITS | Encounter Summary ---
Author Organization Formerly [facility] Address [facility] [place] [address] Care Team Providers Care Community Development Planner Name Role Phone Julia Chatterjee MD Primary Care Provider [phone] Encounter Details Date Type Department Care Team (Late st Contact Info) Description 04/12/2022 8:00 AM EST - 04/12/2022 9:00 AM EST [place] [address] Yola Oliveros MD [facility] [place] [address] COLONOSCOPY FLEXIBLE, WITH BX (WRVU 3.56) Social History Tobacco Use Types Packs/Day Years [...] Sign Reading Time Taken Comments Blood Pressure 120/77 04/12/2022 8:45 AM EST Pulse 70 04/12/2022 8:45 AM EST Temperature 36.8 ??C (98.3 ??F) 04/12/2022 7:24 AM ES T Respiratory Rate 18 04/12/2022 9:00 AM EST Oxygen Saturation 99% 04/12/2022 8:45 AM EST Inhaled Oxygen Concentration - - Weight 68 kg (150 lb) 04/12/2022 7:26 AM EST Height 160 cm (5' 3) 04/12/2022 7:26 AM EST Body Mass Index 26.57 04/12/2022 7:26 AM EST documented in this encounter Discharge Instructions * Discharge Instructions* Carey Magallanes RN - 04/12/2022 8:56 AM EST Colonoscopy: What to Expect at Home Your Recovery Your doctor will talk to you about when you will need your next colonoscopy. Your doctor can help you decide how often you need to be checked. This will depend on the results of your test and your risk for colorectal cancer. After the test, you may be bloated or have gas pains. You may need to pass gas. If a biopsy was done or a polyp was removed, you may have streaks of blood in your stool (feces) for a few days. Problems such as heavy rectal bleeding may not occur until several weeks after the test. This isn't common. But it can happen after polyps are removed. This care sheet gives you a general idea about how long it will take for you to recover. But each person recovers at a different pace. Follow the steps below to get better as quickly as possible. How can you care for yourself at home? Activity Rest when you feel tired. You can do your normal activities when it feels okay to do so. Diet Follow your doctor's directions for eating. Unless your doctor has told you not to, drink plenty of fluids. This helps to replace the fluids that were lost during the colon prep. Do not drink alcohol. Medicines Your doctor will tell you if and when you can restart your medicines. He or she will also give you instructions about taking any new medicines. If you take blood thinners, such as warfarin (Coumadin), clopidogrel (Plavix), or aspirin, be sure to talk to your doctor. He or she will tell you if and when to start taking those medicines again. Make sure that you understand exactly what your doctor wants you to do. If polyps were removed or a biopsy was done during the test, your doctor may tell you not to take aspirin or other anti-inflammatory medicines for a few days. These include ibuprofen (Advil, Motrin) and naproxen (Aleve). Other instructions For your safety, do not drive or operate machinery until the medicine wears off and you can think clearly. Your doctor may tell you not to drive or operate machinery until the day after your test. Do not sign legal documents or make major decisions until the medicine wears off and you can think clearly. The anesthesia can make it hard for you to fully understand what you are agreeing to. Additional Information for Sedation Patients For patients who received sedation: You may have received medications before and/or during your procedure which effects your judgement and reaction time. Do not drive, operate machinery, drink alcoholic beverages or make important decisions for 24 hours. Be careful on stairs as you may be unsteady on your feet. You may eat a regular diet as tolerated. Do not smoke if you are alone. IV site: Slight redness or tenderness is normal, you can use a warm compress if you would like. If tenderness and/or redness increase or if foul drainage occurs, please contact your Doctor. Please call [phone] before 8pm Mon-Fri with problems, questions or concerns. If you call after 8pm or on weekends, call the Hospital at [phone] and ask to speak to the Plumbing Service Technician origination specialist and the noodle press operator will contact that person for you. When should you call for help? Call 101 anytime you think you may need emergency care. For example, call if: You passed out (lost consciousness). You pass maroon or bloody stools. You have trouble breathing. Call your doctor now or seek immediate medical care if: You have pain that does not get better after you take pain medicine. You are sick to your stomach or cannot drink fluids. You have new or worse belly pain. You have blood in your stools. You have a fever. You cannot pass stools or gas. Watch closely for changes in your health, and be sure to contact your doctor if you have any problems. Where can you learn more? [facility] View your After Visit Summary and more online at [email or web address] If you would like to provide feedback about your hospital experience, please call the Office of Patient and Family Relations at . If you have received this After Visit Summary in error, please immediately return it in person to the department, or notify the [facility] Privacy Office by calling toll free at between the hours of 8AM and 5PM to arrange for our retrieval of the documents at no cost to you. Content Version: 12.2 ?? [id number] [employer]. Care instructions adapted under license by [facility]. If you have questions about a medical condition or this instruction, always ask your healthcare professional. [employer] disclaims any warranty or liability for your use of this information. documented in this encounter Medications at Time of Discharge [...] 500 mg by mouth 2 times daily. levoFLOXacin (Levaquin) 750 mg Tablet Take 1 tablet by mouth daily for 5 days. 5 tablet 04/11/2022 04/16/2022 filgrastim-sndz (Zarxio) 480 mcg/0.8 mL SyringeIndications:La rge granular lymphocytic leukemia Inject 0.8 mLs subcutaneously once for 1 dose. 0.8 mL 04/11/2022 04/17/2023 documented as of this encounter Progress Notes * Yola Oliveros MD - 04/12/2022 9:41 AM EST Dear Ms Parry: As you may recall from our discussion after your recent colonoscopy, there was significant inflammation persisting in the distal colon and rectum. Thankfully, there were no signs of cancer or precancer. I have taken the liberty of asking my office to make a follow-up to be seen in our IBD clinic by meor my nurse practitioner, Ansley Girard APRN. We can discuss potentially trying a steroid foam, steroid enema, or potentially retrying mesalamineenemas. As I recall, Canasa suppositories made your symptoms worse. In the meantime, please call with any concerns or questions. Sincerely, Marija Oliveros MD Fire Safety Managerfirst officer and flight instructor Co-Director, [facility] Section of Gastroenterology [place] [address] CC: Julia Chatterjee MD [facility] Kina [address] [place] [address] documented in this encounter H&P Notes * Yola Oliveros MD - 04/12/2022 8:01 AM EST Gastroenterology and Hepatology Pre-Procedure History and Physical Exam Procedure: Colonoscopy: Indication:Colitis restaging Patient Active Problem List Diagnosis Code ??? Leukopenia D72.819 ??? Ulcerative colitis K51.90 ??? 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 Large granular lymphocytic leukemia C91.Z0 EXAM: HEENT: Airway examined, oropharynx clear Mallampati Score: II (soft palate, uvula, fauces visible) LUNGS: Clear to auscultation HEART: Regular rate and rhythm, normal S1, S2 ABDOMEN: Normal bowel sounds, soft, non tender, non distended, A/P Proceed with the planned endoscopic procedure. ASA 2 - Patient with mild systemic disease with no functional limitations Sedation Plan: moderate (conscious sedation) Risks and benefits of the procedure explained to the patient. Consent signed. documented in this encounter Plan of Treatment Upcoming Encounters Date Type Department Care Team (Late st Contact Info) Description 04/15/2024 1:00 PM EST Office Visit Hematology/Oncology at [address] [phone] Lee Ann Jay MD [facility] DR HEMATOLOGY [place] [address] Leti Anderson APRN [facility] DR HEMATOLOGY [place] [address] documented as of this encounter Procedures Procedure Name Priority Date/Time Associated Diagnosis Comments SURGICAL PATHOLOGY REPORT Routine 04/12/2022 8:50 AM EST SPECIMEN TO PATHOLOGY Routine 04/12/2022 8:50 AM EST SPECIMEN TO PATHOLOGY Routine 04/12/2022 8:50 AM EST SPECIMEN TO PATHOLOGY Routine 04/12/2022 8:50 AM EST SPECIMEN TO PATHOLOGY Routine 04/12/2022 8:50 AM EST Colonoscopy, Remv Lesn, Snare ([id number]) 04/12/2022 7:55 AM EST screening Colonoscopy, Biopsy ([id number]) 04/12/2022 7:55 AM EST screening COLONOSCOPY Routine 04/12/2022 7:40 AM EST documented in this encounter Results * Surgical Pathology Report (04/12/2022 8:50 AM EST) Final Diagnosis [id number] ? Location: 4T; EA07; A The signing pathologist has (i) examined the relevant preparation(s) for the specimen(s) and (ii) rendered or confirmed the diagnosis(es). . ?Surgical Pathology DIAGNOSIS A - Cecal polyp, re-excision: Polypoid colonic mucosa within normal limits. Additional levels examined. B - Right colon biopsies, biopsy: Colonic mucosa within normal limits. C - Left colon biopsies, biopsy: Focal, mildly active chronic colitis. No dysplasia is seen. D - Targeted rectal biopsies, biopsy (Multiple): Severely active chronic proctitis. No dysplasia is seen. Electronically signed by: ?Luis Alberto PONCE, Tuyet Verified: ??04/20/2022 22:35 ??Pathologist Performed at: ??-[facility] [place] Dept[place]ology, [place] [address] Heavy Equipment Operator Apprentice: Dyllan Vazquez MD, FCAP, ??CLIA Certificate: [id number] SPECIMEN(S) SUBMITTED A - Cecal polyp, re-excision (1) B - Right colon biopsies, biopsy (4) C - Left colon biopsies, biopsy (4) D - Targeted rectal biopsies, biopsy (Multiple) CLINICAL INFORMATION History of ulcerative colitis SPECIMEN PROCESSING A - Labeled/Fixativ e: Cecal polyp, formalin. Quantity/Size: Single, 0.4 cm. Tissue Description: Soft, pink tissue. Sections/Proces sing: Submitted en toto ??in 1 cassette labeled A1. B - Labeled/Fixativ e: Right colon biopsies, formalin. Quantity/Size: Six, averaging 0.3 cm. Tissue Description: Soft, pink-red tissues. Sections/Proces sing: Submitted en toto ??in 2 cassettes labeled B1-B2. C - Labeled/Fixativ e: Left colon biopsies, formalin. Quantity/Size: Four, ranging from 0.2-0.4 cm. Tissue Description: Soft, ford-pink tissues. Sections/Proces sing: Submitted en toto ??in 1 cassette labeled C1. D - Labeled/Fixativ e: Targeted rectal biopsies, formalin. Quantity/Size: Five, ranging from 0.1-0.4 cm. . SPECIMEN PROCESSING Tissue Description: Soft, pink tissues. Sections/Proces sing: Submitted en toto ??in 1 cassette labeled D1. ??sns 04/20/2022 10:35 PM EST [facility] GI Biopsy 04/12/2022 8:50 AM EST 04/12/2022 8:50 AM EST GI Biopsy 04/12/2022 8:50 AM EST 04/12/2022 8:50 AM EST GI Biopsy 04/12/2022 8:50 AM EST 04/12/2022 8:50 AM EST GI Biopsy 04/12/2022 8:50 AM EST 04/12/2022 8:50 AM EST L Inder Oliveros MD PATHOLOGY/CYTOLOGY O RDERAARMANDO [facility] [place] [address] [facility] [place] [address] * Specimen to Pathology (04/12/2022 8:50 AM EST) AP Specimen 04/12/2022 8:50 AM EST 04/12/2022 8:50 AM EST Narrative [facility] - 04/12/2022 8:50 AM EST Specimen requisition ordered. ??Separate Pathology report to follow L Inder Oliveros MD PATHOLOGY/CYTOLOGY O OMI Performing Organization Address [facility] [place] [address] * Specimen to Pathology (04/12/2022 8:50 AM EST) AP Specimen 04/12/2022 8:50 AM EST 04/12/2022 8:50 AM EST Narrative [facility] - 04/12/2022 8:50 AM EST Specimen requisition ordered. ??Separate Pathology report to follow L Inder Oliveros MD PATHOLOGY/CYTOLOGY O OMI Performing Organization Address [facility] [place] [place] [address] * Specimen to Pathology (04/12/2022 8:50 AM EST) AP Specimen 04/12/2022 8:50 AM EST 04/12/2022 8:50 AM EST Narrative [facility] - 04/12/2022 8:50 AM EST Specimen requisition ordered. ??Separate Pathology report to follow L Inder Oliveros MD PATHOLOGY/CYTOLOGY O OMI Performing Organization Address [facility] Co de Phone Number [facility] [address] * Specimen to Pathology (04/12/2022 8:50 AM EST) AP Specimen 04/12/2022 8:50 AM EST 04/12/2022 8:50 AM EST Narrative [facility] - 04/12/2022 8:50 AM EST Specimen requisition ordered. ??Separate Pathology report to follow L Inder Oliveros MD PATHOLOGY/CYTOLOGY O OMI Performing Organization Address [facility] [place] [place] [address] * COLONOSCOPY (04/12/2022 7:40 AM EST) COLONOSCOPY [facility] Endoscopy ___ Procedure Date: 04/12/2022 7:40 AM ? Patient Name: Leti Parry ? Date of : 1950 ? Age: 71 ? Order #: [id number] ? Instrument Name: [id number]- [id number] ? ___ Procedure: ? Colonoscopy Indications: ? Disease activity assessment of ? left-sided chronic ulcerative ? colitis Patient Profile: ? This is a 71 year old female. This ? patient has left-sided ulcerative ? colitis, is taking no medication ? therapy for this disease and is ? asymptomatic. Providers: ? L. Inder Oliveros MD, Sherin Lawrence, ? Roman Spence, Straw Hat Brim Cutter Operator Referring MD: ?Julia Chatterjee MD Medicines: ? [...] preparation was evaluated ? using the BBPS ([place] Bowel ? Preparation Scale) with scores of: [...] Julia Chatterjee MD GENERAL SURGICAL ORD ERABLES PROVATION documented in this encounter Visit Diagnoses Not on filedocumented in this encounter Administered Medications Inactive Administered Medications - up to 3 most recent administrations Medication Order MAR Action Action Date Dose Rate Site fentaNYL (pf) (50 mcg/mL) multi-dose injection ONCE PRN, Starting on Lulu 04/12/22 at 0758, Until Lulu 04/12/22 at 1141, Intra-Operative (Intra-Procedure), Routine Given 04/12/2022 8:10 AM EST 25 mcg Given 04/12/2022 8:05 AM EST 25 mcg Given 04/12/2022 8:02 AM EST 25 mcg lactated ringers infusion 100 mL/hr, Intravenous, CONTINUOUS, Starting on Lulu 04/12/22 at 0745, Until Lulu 04/12/22 at 0909, Endoscopy (Day of Procedure) New Bag 04/12/2022 7:38 AM EST 100 mL/hr 100 mL/hr midazolam (pf) (Versed) (1 mg/mL) multi-dose injection ONCE PRN, Starting on Lulu 04/12/22 at 0758, Until Lulu 04/12/22 at 1141, Intra-Operative (Intra-Procedure), Routine Given 04/12/2022 8:10 AM EST 1 mg Given 04/12/2022 8:05 AM EST 1 mg Given 04/12/2022 8:02 AM EST 1 mg documented in this encounter Active and Recently Administered Medications Times are shown in EST. Continuous Medication Order 04/10/2022 04/11/2022 04/12/2022 lactated ringers infusion (CANCELED) 100 mL/hr, Intravenous, CONTINUOUS, Starting on Lulu 04/12/22 at 0745, Until Lulu 04/12/22 at 0909, Endoscopy (Day of Procedure) 0738 (New Bag - Prov ider: Lesly Jones, DAYANA) PRN Medication Order 04/10/2022 04/11/2022 04/12/2022 fentaNYL (pf) (50 mcg/mL) multi-dose injection (CANCELED) ONCE PRN, Starting on Lulu 04/12/22 at 0758, Until Lulu 04/12/22 at 1141, Intra-Operative (Intra-Procedure), Routine 0758 (Given - Provid er: Sherin Lawrence RN)0802 (Given - Provider: Sherin Lawrence RN)0805 (Given - Provider: Sherin Lawrence RN)0810 (Given - Provider: Sherin Lawrence RN) midazolam (pf) (Versed) (1 mg/mL) multi-dose injection (CANCELED) ONCE PRN, Starting on Lulu 04/12/22 at 0758, Until Lulu 04/12/22 at 1141, Intra-Operative (Intra-Procedure), Routine 0758 (Given - Provid er: Sherin Lawrence RN)0802 (Given - Provider: Sherin Lawrence RN)0805 (Given - Provider: Sherin Lawrence RN)0810 (Given - Provider: Sherin Lawrence RN) documented in this encounter Care Teams Community Development Planner Relationship Specialty Start Date End Date Julia Chatterjee MD [facility] [address] [place] [address] PCP - General 01/31/10 documented as of this encounter
--- OUTSIDE RECORDS SUMMARY | 2023-10-22 02:48 | XMS_ITS | Encounter Summary ---
Author Organization [facility] [place] [address] Care Team Providers Care Senior Quality Analyst Name Role Phone Julia Chatterjee MD Primary Care Provider [phone] Reason for Visit * Reason Onset Date Comments Letter Request From Patient 01/30/2023 Encounter Details Date Type Department Care Team (Late st Contact Info) Description 01/30/2023 Telephone Hematology/Oncology at [address] [phone] Vicky Madrigal RN Letter Request From Patient Social History Tobacco Use Types Packs/Day Years [...] encounter Miscellaneous Notes * Telephone Encounter - Vicky Madrigal RN - 01/30/2023 9:52 AM EST Letter signed and mailed today per pt request. Called and made pt aware. She was thankful for the follow up. ----- Message ----- From: Leti Anderson, JAYLEN Sent: 01/26/2023 10:40 PM EST To: Billie Diaz RN Subject: RE: Jury duty We could write a letter to get her excused based on decreased blood counts due to chronic leukemia ----- Message ----- From: Sue Lloyd Sent: 01/24/2023 12:50 PM EST To: Mera Cintron, RN; [facility] Hem Onc Nurse Leti called in to say that she has jury duty on 02/13/2023, she is not comfortable being in group of people that large and wondered if Dr. Jay would write her a note to get her out of it? Best call back number [phone] documented in this encounter Plan of Treatment Upcoming Encounters Date Type Department Care Team (Late st Contact Info) Description 04/15/2024 1:00 PM EST Office Visit Hematology/Oncology at [address] [phone] Lee Ann Jay MD [facility] DR [place] [address] Leti Anderson APRN [facility] DR [place] [address] documented as of this encounter Visit Diagnoses Not on filedocumented in this encounter Care Teams Senior Quality Analyst Relationship Specialty Start Date End Date Julia Chatterjee MD Sushant DORADO [address] [place] [address] PCP - General 01/31/10 documented as of this encounter
--- OUTSIDE RECORDS SUMMARY | 2023-10-22 02:48 | XMS_ITS | Encounter Summary ---
Author Organization [facility]ly [facility] [place] [address] Care Team Providers Care Hoister Name Role Phone Julia Chatterjee MD Primary Care Provider [phone] Encounter Details Date Type Department Care Team (Late Contact Info) Description 03/12/2023 Orders Only Hematology [place] [address] Lee Ann Jay MD [facility] [place]AT[place] [address] Social History Tobacco Use Types Packs/Day Years [...] 1:00 PM EST Office Visit Hematology/Oncology at [address] [phone] Lee Ann Jay MD [facility] H[place]ATOLOGY [place] [address] Leti Anderson, BEADER TENDER [facility] [place] [address] documented as of this encounter Visit Diagnoses Not on filedocumented in this encounter Care Teams Hoister Relationship Specialty Start Date End Date Julia Chatterjee MD [facility] KINA FELIZ [facility] [address] [place] [address] PCP - General 01/31/10 documented as of this encounter
--- OUTSIDE RECORDS SUMMARY | 2023-10-22 02:48 | XMS_ITS ---
Author Organization [facility] Address [facility] [place] [address] Care Team Providers Care Risk And Compliance Analytics Director Name Role Phone Julia Chatterjee MD Primary Care Provider [phone] Active Problems Problem Noted Date Diagnosed Date [...] help much - Followed with a local intervention nurse and used dietary supplements to maintain remission - Did well until August 2019 when she developed abdominal pain, fevers, loose stool. Went to [facility] and had CT showing inflamed colon. Flex [...] qhs after colonoscopy in October 2019 - [place] worse on Canasa - fecal calpro 109 [...] flow ) are being pursued at the [facility]. Should ??cytopenias persist , it may [...] LGL but we cannot say with certainty Current Oncology Plans GCSF 480 mcg THERAPY PLAN* Plan Start Date:04/11/2022 Plan Provider:Lee Ann Jay MD Linked Problems Large granular lymphocytic l eukemia Treatment Medications No medications scheduled. Past Plans Therapy Plan 2 Plan Name Start Date Discontinue Date Treatment Medications Discontinue Reason Plan Provider [facility] THERAPY PLAN 04/11/2022 04/17/2023 No medications scheduled. Therapy Complete Lee Ann Jay MD Radiation Treatments * No radiation treatments are documented for this patient in [facility]. Treatments may have been administered in another system.
--- OUTSIDE RECORDS SUMMARY | 2023-10-22 02:48 | XMS_ITS | Encounter Summary ---
Author Organization [facility] Address [facility] [place] [address] Care Team Providers Care Hematologist Name Role Phone Julia Chatterjee MD Primary Care Provider [phone] Encounter Details Date Type Department Care Team (Late st Contact Info) Description 04/12/2021 11:30 AM EST Office Visit Hematology/Oncology at [address] [phone] Lee Ann Jay MD [facility] [place] [address] Radha Cooper, JAYLEN [facility] [place] [address] Large granular lymphocytic leukemia Social History Tobacco [...] Sign Reading Time Taken Comments Blood Pressure 114/75 04/12/2021 11:33 AM EST Pulse 66 04/12/2021 11:33 AM EST Temperature 36.4 ??C (97.5 ??F) 04/12/2021 11:[address] Respiratory Rate 16 04/12/2021 11:33 AM EST Oxygen Saturation 98% 04/12/2021 11:33 AM EST Inhaled Oxygen Concentration - - Weight 65.8 kg (145 lb) 04/12/2021 11:33 AM EST Height 158.8 cm (5' 2.52) 04/12/2021 11:[address] Body Mass Index 26.08 04/12/2021 11:33 AM EST documented in this encounter Progress Notes * Lee Ann Jay MD - 04/12/2021 11:30 AM EST Hematology/Oncology New Patient Note Patient ID: Leti Parry Requesting Provider: No att. providers found Primary Care Provider: Julia Chatterjee MD Patient Active Problem List Diagnosis ??? 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 Watchful waiting to date. Hepatic abcess w/ IV ATB August 2019. Good response to GCSF. ??? Hepatic abscess ??? Ulcerative colitis - L sided colitis diagnosed in 2011 on screening colonoscopy - Took Rowasa for a brief period, did not help much - Followed with a local washer cutter and used dietary supplements to maintain remission - Did well until August 2019 when she developed abdominal pain, fevers, loose stool. Went to [facility] andd CT showing inflamed colon. Flex sig [...] qhs after colonoscopy in October 2019 - [place] worse on Canasa - fecal calpro 109 - Went on low inflammatorydiet - symptoms better. Fecal calpro <15 01/2020 ??? Leukopenia WBC in 2-3 range with ANC [...] by lab, not re-drawn Nov 2016 - Splenic imaging 8cm 01/08/17 BMBx: DIAGNOSIS 1. Normocellular marrow with normal trilineage hematopoesis, with minor CD8+ T-cell ??interstitial infiltrate (5% of marrow) 2. Neutropenia, [...] flow ) are being pursued at the [facility]. Should ??cytopenias persist , it may [...] of Present Illness: Ms. Parry is a 70 y.o. with pmhx of ? Ulcerative colitis- [...] better now with the help of her washer cutter. Her sx are GREAT on the naturopathic meds with minimal GI symptoms Feels well, good energy . No infections. She got a Peloton bike a few months ago. Loves the exercise and classes. Also does pilates and private classes. She is caring for her parents (92 and 88yo) Patrick Lazo Plans [place] cam[place]. VW [address] [facility]. Her DINO was positive in Oct 2016. At some point, t she talked to her sisters and their counts are on the low end of normal as well. She returns for regularly scheduled follow-up Review of Systems:a Constitutional: No fevers/chills. Denies fatigue, wt loss or gain Endocrine: No heat/cold intolerance Heme: No easy bruising/Bleeding Skin: No rashes or other lesions HEENT: Denies sore throat,difficulty swallowing. Cardiovascular: No chest pain, palpitations, or orthopnea Respiratory: Denies SOB, cough, wheezing Gastrointestinal: Denies n/v, abd pain, diarrhea/melena Genitourinary: Denies dysuria, hematuria Musculoskeletal: No muscle or joint aches/pain Neuro: Denies numbness, tingling or new weakness. No headaches Past Surgical History: Procedure Laterality Date ??? CT ASPIRATION LIVER 09/02/2019 CT Guided Aspiration Liver 09/02/2019 [facility] RAD CAT SCAN ??? IR DRAIN CHECK/CHANGE/REMOVE 09/28/2019 IR Drain Check/Change/Remove 09/28/2019 Cliff Langston MD [facility] INTERVENTIONL RAD ??? PRO BONE MARROW ASPIRATION W/BX THROUGH SAME INCISION/SITE Right 01/08/2017 ([facility]) BONE MARROW ASP PERFORMED W/BX THRU BX INCISION (WRVU 0.16) performed by Lee Ann Jay MD at [facility] OSC ??? PRO BONE MARROW BX, NEEDLE/TROCAR Right 01/08/2017 ([facility]) BONE MARROW,BIOPSY (WRVU 1.37) performed by Lee Ann Jay MD at [facility] OSC ??? PRO COLONOSCOPY, BIOPSY 07/05/2011 COLONOSCOPY FLEXIBLE, WITH BX performed by AYAZ NELSON at [facility] ENDOSCOPY ??? PRO COLONOSCOPY, BIOPSY N/A 10/22/2019 COLONOSCOPY FLEXIBLE, WITH BX (WRVU 3.66) performed by Yola Oliveros MD at [facility] ENDOSCOPY ??? PRO COLONOSCOPY, REMV LESN, SNARE 07/05/2011 COLONOSCOPY, POLYPECTOMY, REMOVAL LESION BY SNARE performed by AYAZ NELSON at [facility] ENDOSCOPY ??? PRO SIGMOIDOSCOPY, DIAGNOSTIC N/A 09/02/2019 FLEXIBLE SIGMOIDOSCOPY performed by Ayaz Nelson MD at [facility] ENDOSCOPY Medications; Current Outpatient Medications on File Prior to Visit Medication Sig Dispense Refill ??? glucosamine sulfate 500 mg Tablet Take by mouth. ??? cholecalciferol, vitamin D3, (VITAMIN D3 ORAL) Take 4,000 Units by mouth daily. ??? ascorbic acid, Vitamin C, (vitamin C) 500 mg Tablet Take 500 mg by mouth 2 times daily. ??? glutamine (GLUTAMENT ORAL) Take by mouth. ??? chlorel/chloroph/D3/B2/FA/iron (CHLORELLA CAPS ORAL) Take by mouth daily. No current facility-administered medications on file prior to visit. Allergies: Allergies Allergen Reactions ??? Benzalkonium Chloride ??? Gluten Family History: Father- 87, healthy Mother- 83, healthy 4 brothers and 2 sisters all healthy; she is told that her sisters also have low white counts. Social History: Lives in [facility]. . 1 son 38 years old- healthy. 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 Likes to bike in [place] w/ her . 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 Social History Substance Use Topics ??? Smoking status: Never Smoker ??? Smokeless tobacco: None ??? Alcohol use 1 shot of tequila few times a week PHYSICAL EXAM BP 114/75 (Patient Position: Sitting) Pulse 66 Temp 36.4 ??C (97.5 ??F) (Temporal) Resp 16 Ht 158.8 cm (5' 2.52) Wt 65.8 kg (145 lb) SpO2 98% BMI 26.08 kg/m?? Body surface area is 1.7 meters squared. GENERAL: Leti Parry appears well and is in no acute distress. ENT: Oral pharynx clear. EYES: DAYAN NECK: Supple without adenopathy. AXILLARY: no adenopathy OTHER LYMPH: no adenopathy CARDIAC: Regular rate and rhythm without S3,S4 or murmurs. LUNGS: Clear to auscultation./percussion ABDOMEN: Soft and non-tender without hepatosplenomegaly or masses. EXTREMITIES: No cyanosis, clubbing, edema or calf tenderness. SKIN: No bruises or petechiae. NEUROLOGICAL: Alert and oriented to person, place and time. MUSCULOSKELETAL: No spinal or chest wall tenderness. Labs: Recent Results (from the past 72 hour(s)) CBC (with Diff) Result Value Ref Range WBC 2.02 Hemoglobin 13.1 Hematocrit 41.6 Platelets 185 Neutr Abs (ANC) 0.4 Creatinine 0.8 date wbc anc hgb plt 07/09/16 2.1 0.64 13.8 211 08/03/16 2.65 0.71 13.7 199 10/25/16 2.53 0.510 13.6 181 DINO positive 01/08/17 2..0 0.21 13.3 183 BMBx done 03/19/17 2.2 0.29 13.7 209 STAT3 negative 10/17/17 1.92 0.25 13.4 195 Off all meds & supplements HEMEPATH: DIAGNOSIS 1. Normocellular marrow with normal trilineage hematopoesis, with minor CD8+ T-cell ??interstitial infiltrate (5% of marrow) 2. Neutropenia, [...] flow ) are being pursued at the [facility]. Should ??cytopenias persist , it may [...] ?? Clonal T-cell receptor gene rearrangement detected. Radiology: US at [facility] 11/2016. Liver 14.5 cm. Spleen 8cm. Assessment and Recommendations: 70 y.o. Healthy female who has been referred to us for leukopenia. She has had leukopenia since 2006 with normal hemoglobin and platelet. She has no symptoms- no increased frequency of infections. 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 She has been working with a washer cutter who started her on selenium and zinc and about a dozen other supplements. Counts are a bit higher so we will see. Brain Picker has been helping her with bowel issues. These are better w/ diet adjustments. Diet changes have helped her UC and GI symptoms. Of note, she is on multiple naturopathic medications through her beading machine operator - mostly to help w/ herGI tract. I doubt that these could be implicated in the onset of her LGL but she does understand that these are not regulated by the FDA, therefore the ingredients can be quite variable and unreliable, unfortunately. She understands this, and understands that the supplements are not regulated, she states that she does not intend to stay on them for long-term. Antigranulocyte ab -I do not see that this test was ever sent out. Given recent diagnosis of probable LGL, no longer necessary. 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 Stat-3 testing was subsequentlynegative. 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 LGL is often associated with autoimmune disorders. She does not have any known autoimmune disorder although she is DNIO positive. At one time, she was also [...] plan. We will support her with G-CSF as needed October [address] Han Castillo at [facility], an LGL specialist, he did a lot of testing and recommended MTX given that her ANC is less than 500. His note is in Care Everywhere. He otherwise had agreedwith our recommendations in general. He also recommended COVID vaccination. Leti remains well informed and involved in LGL symposiums on line. She responds beautifully to GCSF. Needs GCSF before procedures or surgeries. Today we discussed dental cleanings. In the past Leti has not gotten G-CSF before routine dental cleanings. But she also reports that she has a titanium mitesh as her left clavicle. Based on that alonehunter should take amoxicillin 2 g 1 hour [...] - she has declined vaccination. She prefers a holistic approach and does not want more things in my body. Plan: ?? GCSF 480mcg prn procedures/surgeries ?? Pt declined treatment for LGL at this time. ?? Pt declines COVID vaccination ?? Amoxicillin 2 gm one hour before dental cleanings. Script today. ?? RTC in 1 year with cbc, cmp I discussed all of the above with the patient and all of her questions were answered. Support and counseling given as appropriate. This note was written or modified using [employer] voice recognition software. The final note was screened for mistakes. Please excuse any remaining errors. documented in this encounter Plan of Treatment Upcoming Encounters Date Type Department Care Team (Late st Contact Info) Description 04/15/2024 1:00 PM EST Office Visit Hematology/Oncology at [address] [phone] Lee Ann Jay MD [facility] [place] [address] Leti Anderson APRN [facility] [place] [address] documented as of this encounter Procedures Procedure Name Priority Date/Time Associated Diagnosis Comments CBC (WITH DIFF) Routine 04/11/2021 documented in this encounter Results * CBC (with Diff) (04/11/2021) White Blood Cell 2.02 Hemoglobin 13.1 Hematocrit 41.6 Platelet 185 ANC 0.4 Creatinine 0.8 Blood 04/11/2021 Historical Provider HEMATOLOGY ORDERA BLES documented in this encounter Visit Diagnoses Diagnosis 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, without mention of having achieved remission documented in this encounter Care Teams Hematologist Relationship Specialty Start Date End Date Julia Chatterjee MD [address] [place] [address] PCP - General 01/31/10 documented as of this encounter
--- OUTSIDE RECORDS SUMMARY | 2023-10-22 02:48 | XMS_ITS | Encounter Summary ---
Author Organization [facility] Address [facility] [place] [address] Care Team Providers Care Cathode Builder Name Role Phone Julia Chatterjee MD Primary Care Provider [phone] Reason for Visit * Reason Onset Date Comments Other 12/10/2019 Encounter Details Date Type Department Care Team (Late st Contact Info) Description 12/10/2019 Telephone Hematology/Oncology at [address] [phone] Mera Cintron RN Other Social History Tobacco Use Types Packs/Day Years [...] Telephone Encounter - Mera Cintron RN - 12/10/2019 9:21 AM EDT Leti calls and stats she had blood work with her PCP last week and her ANC was 0.2. She is going to [place] for a week with children and grandchildren staying at [facility] and then to [place] for a week at son's home. She is planning to isolate at those places. She is wondering if she should get a neupogen shot with low counts. Reviewed with Dr. Jay, she states she is to monitor temp twice a day and call with a fever. If pt does call with fever she will be instructed to go to local ER for evaluation. She was reminded to wash hands frequently, wear a mask and physically distant. She agrees with plan. documented in this encounter Plan of Treatment Upcoming Encounters Date Type Department Care Team (Late st Contact Info) Description 04/15/2024 1:00 PM EST Office Visit Hematology/Oncology at [address] [phone] Lee Ann Jay MD [facility] [address] [place] [address] Leti Anderson APRN [facility] [place] [address] documented as of this encounter Visit Diagnoses Not on filedocumented in this encounter Care Teams Cathode Builder Relationship Specialty Start Date End Date Julia Chatterjee MD [facility] [address] [place] [address] PCP - General 01/31/10 documented as of this encounter
--- OUTSIDE RECORDS SUMMARY | 2023-10-22 02:48 | XMS_ITS | Encounter Summary ---
Author Organization [facility] Address [facility] [place] [address] Care Team Providers Care Fence Post Driver Name Role Phone Julia Chatterjee MD Primary Care Provider [phone] Encounter Details Date Type Department Care Team (Latest Contact Info) Description 06/07/2020 9:30 AM EDT TH Visit (TeleHealth) [place] [address] Yola Jenkins MD [facility] [place] [address] Other ulcerative colitis with complication Social History [...] on file documented as of this encounter Patient Instructions * Patient Instructions* Yola Jenkins MD - 06/07/2020 9:30 AM EDT #Continue current diet #Plan on repeat calprotectin in ~5 mos prior to our next follow-up visit #She will call for worsening symptoms in the meantime #Will discuss repeat colonoscopy at next visit for restaging and also for surveillance. #Follow-up in 6 mos via telehealth documented in this encounter Progress Notes * Yola Jenkins MD - 06/07/2020 9:30 AM EDT GASTROENTEROLOGY TELEMEDICINE PROGRAM - ESTABLISHED PATIENT VISIT Chief Complaint: Leti Parry is a 69 y.o. F with history of indeterminate L sided chronic colitis Detailed IBD history: - L sided colitis diagnosed in 2011 on screening colonoscopy - Took Rowasa for a brief period, did not help much - Followed with a local sand blaster and used dietary supplements to maintain remission - Did well until August 2019 when she developed abdominal pain, fevers, loose stool. [facility] to [facility] andd CT showing inflamed colon. Flex sig [...] qhs after colonoscopy in October 2019 - [place] worse on Canasa - fecal calpro 109 - Went on low inflammatorydiet - symptoms better. Fecal calpro <15 01/2020 Interval history: Ms. Parry is doing very well. She continues on a low inflammatory diet with her local dietitian.She is not taking any oral or topical mesalamine and months. Prior to our last visit she had tried Canasa suppositories for about 1 week, but they caused more cramps, mucus, and low energy. Symptoms remain virtually nonexistent. She reports stools have been completely formed. She is moving her bowels every 1 to 2 days. There is not been any more mucus discharge, tenesmus, urgency. Thereis been no bleeding. She has no abdominal pain. Her local provider had requested that we check methylmalonic acid, vitamin B12, folate, and homocystine. I reviewed those labs. All are within normal. Ms. Parry received a message from her local provider recommending that we check an intrinsic factor antibody to rule out pernicious anemia. Review of systems: 14-point review of systems [...] CAPS ORAL) Take by mouth daily. No facility-administered medications prior to visit. Allergies: is allergic to benzalkonium chloride and gluten. Past Medical History: has no past medical history on file. Past Surgical History: has a past surgical history that includes Colonoscopy, Biopsy (04071) (07/05/2011); Colonoscopy, Remv Leroy, Snare ([id number]) (07/05/2011); Bone Marrow Aspiration W/Bx Through Same Incision/Site (G0364) (Right, 01/08/2017); Bone Marrow Bx, Needle/Trocar ([id number]) (Right, 01/08/2017);CT Guided Aspiration Liver (09/02/2019); Sigmoidoscopy, Diagnostic ([id number]) (N/A, 09/02/2019); IR Drain Check/Change/Remove (09/28/2019); and Colonoscopy, Biopsy (80252) (N/A, 10/22/2019). Family History: family history is not on file. Social History: reports that she has never smoked. She has never used smokeless tobacco. She reports current alcohol use. She reports that she does not use drugs. No Physical Examination performed during this telemedicine visit Laboratory studies, imaging, and procedures (my review of prior records): Fecal calprotectin was done on June 02. She read the report to me. It was less than 15.6. I reviewed her complete blood count from April 21. Hemoglobin 14. Last MCV was normal at 89.8 onSeptember 07, 2019. Vitamin B12 was 724, folate 16.8, methylmalonic acid 0.11, and homocystine 14.2 on May 24. Assessment/Plan: Ms. Parry is a 69 y.o. patient with a history indeterminate L sided chronic colitis since 2011, E.coli bacteremia with liver abscess in August-September 2019. She has done really well despite going off of all mesalamine therapy. She has had no recurrent symptoms of colitis, and serial fecal calprotectin has been completely normal. As we discussed at last visit, this is not the typical course that I expect for left-sided chronic colitis. We discussed thatthe vast majority of patients flare within 1 to 3 years without maintenance therapy. Given that shehas no symptoms and inflammatory markers in the stool come to need to be normal, we discussed continuing monitoring. We will plan on repeat fecal calprotectin prior to our next visit in 6 months. In the meantime, she will call me if she has any worsening in her bowel frequency, consistency, mucus, a bdominal pain. As for her blood work, I found it very reassuring. She has no signs or symptoms of pernicious anemia, and I am not sure how I would treat a positive intrinsic factor antibody test at this point. It sounds to me from messages read from Ms. Parry that the concern was about her leukopenia. I would defer to Dr. Jay, but I suspect that she will say the leukopenia is expected with LGL and that int rinsic factor would have no bearing in this case. Recommendations: #Continue current diet #Plan on repeat calprotectin in ~5 mos prior to our next follow-up visit #She will call for worsening symptoms in the meantime #Will discuss repeat colonoscopy at next visit for restaging and also for surveillance. #Follow-up in 6 mos via telehealth I spent 30 min today reviewing the chart preparing for this visit, counseling the patient [id number] on the issues outlined above, and documenting an implementing the plan. Ms. Parry was located in [place] at the time of this visit. Marija Jenkins MD Landscape Photographerseat joiner chainstitch Co-Director, [facility] Section of Gastroenterology [place] [address] documented in this encounter Miscellaneous Notes * Addendum Note - Yola Jenkins MD - 06/07/2020 9:30 AM EDTAddended by: Yola JENKINS on: 06/07/2020 10:25 AM Modules accepted: Orders documented in this encounter Plan of Treatment Upcoming Encounters Date Type Department Care Team (Late st Contact Info) Description 04/15/2024 1:00 PM EST Office Visit Hematology/Oncology at [address] [phone] Lee Ann Jay MD [facility] DR HEMATOLOGY [place] [address] Leti Anderson APRN [facility] HEMATOLOGY [place] [address] documented as of this encounter Visit Diagnoses Diagnosis Other ulcerative colitis with complication documented in this encounter Care Teams Fence Post Driver Relationship Specialty Start Date End Date Julia Chatterjee MD [facility] [address] [place] [address] PCP - General 01/31/10 documented as of this encounter
--- OUTSIDE RECORDS SUMMARY | 2023-10-22 02:48 | XMS_ITS | Encounter Summary ---
Author Organization [facility] Address [facility] [place] [address] Care Team Providers Care Male Model Name Role Phone Julia Chatterjee MD Primary Care Provider [phone] Encounter Details Date Type Department Care Team (Latest Contact Info) Description 04/12/2022 7:08 AM EST - 04/12/2022 9:41 AM EST Hospital En[place] [address] Yola Oilveros MD [facility] [place] [address] Discharge Disposition: Home Social History Tobacco Use [...] AM ES T Respiratory Rate 18 04/12/2022 9:10 AM EST Oxygen Saturation 99% 04/12/2022 8:45 [...] occurs, please contact your Doctor. Please call [phone] before 8pm Mon-Fri with problems, questions or concerns. If you call after 8pm or on weekends, call the Hospital at [phone] and ask to speak to the Sports Marketer special education assistant and the dieing out machine operator will contact that person for you. When should you call for help? Call 911 anytime you think you may need emergency [...] any problems. Where can you learn more? [facility] View your After Visit Summary and more online at [email or web address] If you would like to provide feedback about your hospital experience, please call the Office of Patient and Family Relations at . If you have received this After Visit Summary in error, please immediately return it in person to the department, or notify the [facility] Privacy Office by calling toll free at between the hours of 8AM and 5PM to arrange for our retrieval of the documents at no cost to you. Content Version: 12.2 ?? [id number] [employer]. Care instructions adapted under license by [facility]. If you have questions about a medical condition or this instruction, always ask your healthcare professional. [employer] disclaims any warranty or liability for your [...] concerns or questions. Sincerely, Marija Oliveros MD Cyber Forensic Specialistpatient services manager Co-Director, [facility] Section of Gastroenterology [place] [address] CC: Julia Chatterjee MD [facility] Kina Perez [facility] [address] [place] [address] documented in this encounter H&P Notes * [...] Office Visit Hematology/Oncology at [address] [phone] Lee Ann Jay MD [facility] HEMATOLOGY [place] [address] Leti Anderson APRN [facility] DR HEMATOLOGY [place] [address] documented as of this encounter Procedures Procedure Name Priority Date/Time Associated Diagnosis Comments SURGICAL PATHOLOGY REPORT Routine 04/12/2022 8:50 AM EST SPECIMEN TO PATHOLOGY Routine 04/12/2022 8:50 AM EST SPECIMEN TO PATHOLOGY Routine 04/12/2022 8:50 AM EST SPECIMEN TO PATHOLOGY Routine 04/12/2022 8:50 AM EST SPECIMEN TO PATHOLOGY Routine 04/12/2022 8:50 AM EST Colonoscopy, Remv Lesn, Snare ([id number]) 04/12/2022 7:55 AM EST screening Colonoscopy, Biopsy ([id number]) 04/12/2022 7:55 AM EST screening COLONOSCOPY Routine 04/12/2022 7:40 AM EST documented in this encounter Results * Surgical Pathology Report (04/12/2022 8:50 AM EST) Final Diagnosis [id number] ? Location: 4T; EA07; A The signing [...] No dysplasia is seen. Electronically signed by: ?Tuyet Sahu MD Verified: ??04/20/2022 22:35 ??Pathologist Performed at: ??-[facility] Dept. of [place]ology, [place] [address] Compensation Business Partner: Dyllan Vazquez MD, FCAP, ??CLIA Certificate: [id number] SPECIMEN(S) SUBMITTED A - Cecal polyp, re-excision [...] labeled D1. ??sns 04/20/2022 10:35 PM EST [facility] GI Biopsy 04/12/2022 8:50 AM EST 04/12/2022 8:50 AM EST GI Biopsy 04/12/2022 8:50 AM EST 04/12/2022 8:50 AM EST GI Biopsy 04/12/2022 8:50 AM EST 04/12/2022 8:50 AM EST GI Biopsy 04/12/2022 8:50 AM EST 04/12/2022 8:50 AM EST L Inder Oliveros MD PATHOLOGY/CYTOLOGY O RDERAARMANDO [facility] [place] [address] [facility] [place] [address] * Specimen to Pathology (04/12/2022 8:50 AM EST) AP Specimen 04/12/2022 8:50 AM EST 04/12/2022 8:50 AM EST Narrative [facility] - 04/12/2022 8:50 AM EST Specimen requisition ordered. ??Separate Pathology report to follow L Inder Oliveros MD PATHOLOGY/CYTOLOGY O RDKEITH Performing Organization Address [facility] [place] [address] * Specimen to Pathology (04/12/2022 8:50 AM EST) AP Specimen 04/12/2022 8:50 AM EST 04/12/2022 8:50 AM EST Narrative [facility] - 04/12/2022 8:50 AM EST Specimen requisition ordered. ??Separate Pathology report to follow L Inder Oliveros MD PATHOLOGY/CYTOLOGY O RDKEITH Performing Organization Address [facility] [place] [address] * Specimen to Pathology (04/12/2022 8:50 AM EST) AP Specimen 04/12/2022 8:50 AM EST 04/12/2022 8:50 AM EST Narrative [facility] - 04/12/2022 8:50 AM EST Specimen requisition ordered. ??Separate Pathology report to follow L Inder Oliveros MD PATHOLOGY/CYTOLOGY O OMI Performing Organization Address [facility] [place] [address] * Specimen to Pathology (04/12/2022 8:50 AM EST) AP Specimen 04/12/2022 8:50 AM EST 04/12/2022 8:50 AM EST Narrative [facility] - 04/12/2022 8:50 AM EST Specimen requisition ordered. ??Separate Pathology report to follow L Inder Oliveros MD PATHOLOGY/CYTOLOGY O RDKEITH Performing Organization Address [facility] [place] [address] * COLONOSCOPY (04/12/2022 7:40 AM EST) COLONOSCOPY [facility] Endoscopy ___ Procedure Date: 04/12/2022 7:40 AM ? Patient Name: Leti Parry ? Date of : 1950 ? Age: 71 ? Order #: [id number] ? Instrument Name: [id number] ? ___ Procedure: ? Colonoscopy Indications: ? Disease activity assessment of ? left-sided chronic ulcerative ? colitis Patient Profile: ? This is a 71 year old female. This ? patient has left-sided ulcerative ? colitis, is taking no medication ? therapy for this disease and is ? asymptomatic. Providers: ? L. Inder Oliveros MD, Sherin Lawrence, ? Roman Spence, Biochemistry Specialist Referring MD: ?Julia Chatterjee MD Medicines: [...] preparation was evaluated ? using the BBPS ([place] Bowel ? Preparation Scale) with scores of: [...] MAR Action Action Date Dose Rate Site lactated ringers infusion 100 mL/hr, Intravenous, CONTINUOUS, Starting on Lulu 04/12/22 at 0745, Until Lulu 04/12/22 at 0909, Endoscopy (Day of Procedure) New Bag 04/12/2022 7:38 AM EST 100 mL/hr 100 mL/hr documented in this encounter Active and Recently Administered Medications Times are shown in EST. Continuous Medication Order 04/10/2022 04/11/2022 04/12/2022 lactated ringers infusion (CANCELED) 100 mL/hr, Intravenous, CONTINUOUS, Starting on Lulu 04/12/22 at 0745, Until Lulu 23 at 0909, Endoscopy (Day of Procedure) 0738 (New Bag - Prov ider: Lesly Jones RN) PRN Medication Order 04/10/2022 04/11/2022 04/12/2022 [id number] [...] RN) documented in this encounter Care Teams Male Model Relationship Specialty Start Date End Date Juila Chatterjee MD [facility] [address] [place] [address] PCP - General 01/31/10 documented as of this encounter
--- OUTSIDE RECORDS SUMMARY | 2023-10-22 02:48 | XMS_ITS | Encounter Summary ---
Author Organization [facility] [place] [address] Care Team Providers Care Shopping Centre Manager Name Role Phone Julia Chatterjee MD Primary Care Provider [phone] Reason for Visit * Reason Onset Date Comments Other 06/19/2021 Antibody testing Encounter Details Date Type Department Care Team (Late st Contact Info) Description 06/19/2021 Telephone Hematology/Oncology at [address] [phone] Mera Cintron RN Other (Antibody testing) Social History Tobacco Use Types Packs/Day Years [...] Telephone Encounter - Mera Cintron RN - 06/20/2021 9:09 AM EDT Pt calls and states she was sick a few weeks ago and it lasted awhile. She took home covid test that was negative. Her had same thing. He is vaccinated for covid, pt is not. Pt is wondering if they had covid and wants to be tested to see if she has any antibodies against covid. She spoke with PCP who said they do not order that. She is wondering if Dr. Jay will order this. Message sen t to Dr. Jay, awaiting response. Dr. north agrees and ordered the labs, pt will call us after these are done so we can look for results. documented in this encounter Plan of Treatment Upcoming Encounters Date Type Department Care Team (Late st Contact Info) Description 04/15/2024 1:00 PM EST Office Visit Hematology/Oncology at [address] [address] Lee Ann Jay MD [facility] [address] [place] [address] Leti Anderson APRN [facility] [place] [address] documented as of this encounter Visit Diagnoses Not on filedocumented in this encounter Care Teams Shopping Centre Manager Relationship Specialty Start Date End Date Julia Chatterjee MD [facility] [address] [place] [address] PCP - General 01/31/10 documented as of this encounter
--- OUTSIDE RECORDS SUMMARY | 2023-10-22 02:48 | XMS_ITS | Encounter Summary ---
[place] [address] Care Team Providers Care Founder Ceo & President Name Role Phone Julia Chatterjee MD Primary Care Provider [phone] Reason for Visit * Reason Onset Date Comments Reminder Appointment 09/19/2020 Encounter Details Date Type Department Care Team (Late Contact Info) Description 09/19/2020 Telephone [place] [phone] Christy Lopez CCMA Reminder Appointment Social History [...] Telephone Encounter - Christy Lopez CCMA - 09/19/2020 10:22 AM EDT Called patient to review medications and allergies for their upcoming gastroenterology Type of Appointment: Telehealth appointment. Reach Patient during MA Check: Yes Notes for the provider: Notes for the nurse: documented in this encounter Plan of Treatment Upcoming Encounters Date Type Department Care Team (Late Contact Info) Description 04/15/2024 1:00 PM EST Office Visit Hematology/Oncology at [address] [phone] Lee Ann Jay MD [facility] DR HEMATOLOGY [place] [address] Leti Anderson APRN [facility] HEMATOLOGY [place] [address] documented as of this encounter Visit Diagnoses Not on filedocumented in this encounter Care Teams Founder Ceo & President Relationship Specialty Start Date End Date Julia Chatterjee MD [facility] [address] [facility] [address] [place] [address] PCP - General 01/31/10 documented as of this encounter
--- OUTSIDE RECORDS SUMMARY | 2023-10-22 02:48 | XMS_ITS | Encounter Summary ---
[place] [address] Care Team Providers Care Waterproofing Supervisor Name Role Phone Julia Chatterjee MD Primary Care Provider [phone] Reason for Visit * Reason Onset Date Comments Prior Authorization 11/11/2019 Encounter Details Date Type Department Care Team (Late st Contact Info) Description 11/11/2019 Telephone [place] [phone] Adia Angel CMA GASTROENTEROLOGY DEPT Prior Authorization Social History Tobacco Use Types Packs/Day Years [...] Telephone Encounter - Adia Angel CMA - 11/11/2019 3:42 PM EDT Medication Prior Authorization 4L Gastroenterology / [place] [address] Subscriber Insurance: [employer] Phone: Fax: Physician: Hesham Dobson Return Pharmacy: Phone: Fax: Medication Requested: Mesalamine suppository Strength: Frequency: Disp.: Refills: Currently taking: no Diagnosis for this medication: Ulcerative colitis w/ complications ICD-10 code: Prior medications trialed in this patient: emir Medication: Outcome/Adverse Reactions: treatment failure Decision: prior authorization is not required. Tracking number/Case number/Reference number: Effective date: Start: End: documented in this encounter Plan of Treatment Upcoming Encounters Date Type Department Care Team (Late st Contact Info) Description 04/15/2024 1:00 PM EST Office Visit Hematology/Oncology at [address] [phone] Lee Ann Jay MD [facility] DR [place] [address] Leti Anderson APRN [facility] DR [place] [address] documented as of this encounter Visit Diagnoses Not on filedocumented in this encounter Care Teams Waterproofing Supervisor Relationship Specialty Start Date End Date Julia Chatterjee MD [facility] [address] [place] [address] PCP - General 01/31/10 documented as of this encounter
--- OUTSIDE RECORDS SUMMARY | 2023-10-22 02:48 | XMS_ITS | Encounter Summary ---
Author Organization [facility] Address [facility] [place] [address] Care Team Providers Care Wound/Ostomy Clinical Nurse Specialist Name Role Phone Julia Chatterjee MD Primary Care Provider [phone] Encounter Details Date Type Department Care Team (Late st Contact Info) Description 02/27/2022 Telephone [place] [phone] Jenise Bridges Social History Tobacco Use Types Packs/Day Years [...] encounter Miscellaneous Notes * Telephone Encounter - Jenise Bridges - 02/27/2022 11:31 AM EST Leti Parry [id number] Diagnosis/Indication: screening Please review patient chart to confirm if previous Endoscopy procedure was performed within system. If yes, take note of Anesthesia type used. If previous procedure found, and with MAC/propofol Anesthesia support was used, schedule this procedure with Anesthesia and skip the Anesthesia portion of questions. If not performed within system, not performed at all, or performed with IVCS, ask Anesthesia questions. SCHEDULING QUESTIONS (ask all patient these questions) 1. Have you ever had a/an Colonoscopy before? Yes: Date 10/22/2019 If yes, did you have any problems with the procedure (such as waking up during the procedure, pain or difficulties afterwards, etc.)? No What type of sedation was used: IV Conscious Sedation 2. Do you take any blood thinners or have you been diagnosed with a bleeding disorder that increases your risk of bleeding with procedures? No 3. Do you have a Pacemaker or Defibrillator device? If yes, send pool message to Cardiology with patient information and date or procedure. No 4. Are you a diabetic? If yes, call PCP/managing provider to discuss use of prep and any questions or concerns related to. No 5. Do you take any iron supplements or vitamins that contain iron? No 6. Do you have a preference regarding the gender of your provider? Yes-requested Dr Oliveros ANESTHESIA QUESTIONS (YES to any question, please book with Anesthesia support) 7. Have you ever been diagnosed with Pulmonary Hypertension and/or Congential Heart Disease? No 8. Have you been diagnosed with A-Fib (atrial fibrillation) that is NOT being well controled with medications? No 9. Have you ever had an allergic or adverse reaction to Fentanyl or Versed? No 10. Have you had a problem with sedation or anesthesia? (Waking up during procedure, extreme confusion after, etc.) No 11. Do you have a diagnosis of Obstructive Sleep Apnea that requires the use of a c-pap machine? No 12. Do you use an oxygen tank at home? No 13. Do you use a rescue inhaler more than twice per day? (COPD, severe asthma) No 14. Do you experience breathing problems when you lay flat for a period of time? No 15. Do you take prescription narcotic pain medications, including suboxone or methodone? No SCHEDULING CONFIRMATIONS: Please note any and all parts of your conversation with the patient here. 16. We offer all new patients an opportunity to have an appointment with one of our associate care providers to learn more about your upcoming procedure, ask questions and get answers. These appointments are offered via telehealth. Would you be interested in scheduling this appointment? (Only ask if NEW referral patient; skip this question if [facility] provider ordered the procedure.) No-return procedure 17. Is there any other information or concerns you would like to us to share with your care team inrelation to your upcoming scheduled procedure? Yes: Patient has LGL-will need neupogen prior to procedure-pt to contact Dr aRy 18. You must have a responsible libertarian who will drive you to your procedure, stay on campus for the entire duration of your procedure, and drive you home from your procedure. Who will likely be your special education bus driver for the procedure? *Please Verify the height and weight, and adjust if height and/or weight have changed* Estimated body mass index is 26.08 kg/m?? as calculated from the following: Height as of 04/12/21: 158.8 cm (5' 2.52). Weight as of 04/12/21: 65.8 kg (145 lb). *Delete if not needed* Height: 5'3 Weight: 145 BMI: 25.7 Age:71 y.o. documented in this encounter Plan of Treatment Upcoming Encounters Date Type Department Care Team (Late st Contact Info) Description 04/15/2024 1:00 PM EST Office Visit Hematology/Oncology at [address] [phone] Lee Ann Jay MD [facility] DR [place] [address] Leti Anderson APRN [facility] [address] [place] [address] documented as of this encounter Visit Diagnoses Not on filedocumented in this encounter Care Teams Wound/Ostomy Clinical Nurse Specialist Relationship Specialty Start Date End Date Julia Chatterjee MD [address] [place] [address] PCP - General 01/31/10 documented as of this encounter
--- OUTSIDE RECORDS SUMMARY | 2023-10-22 02:48 | XMS_ITS | Encounter Summary ---
Author Organization [facility] [place] [address] Care Team Providers Care Lithostripper Name Role Phone Julia Chatterjee MD Primary Care Provider [phone] Encounter Details Date Type Department Care Team (Late Contact Info) Description 10/22/2019 Orders Only [place] [address] Hesham Dobson MD [facility] DR [place] [address] Social History Tobacco Use Types Packs/Day Years [...] 1:00 PM EST Office Visit Hematology/Oncology at [address] [phone] Lee Ann Jay MD [facility] DR HEMATOLOGY [place] [address] Leti Anderson, ACCESS COORDINATOR [facility] HEMATOLOGY [place] [address] documented as of this encounter Visit Diagnoses Not on filedocumented in this encounter Care Teams Lithostripper Relationship Specialty Start Date End Date Julia Chatterjee MD [address] [place] [address] PCP - General 01/31/10 documented as of this encounter
--- OUTSIDE RECORDS SUMMARY | 2023-10-22 02:48 | XMS_ITS | Encounter Summary ---
Author Organization [facility] [place] [address] Care Team Providers Care Manager Acute Name Role Phone Julia Chatterjee MD Primary Care Provider [phone] Encounter Details Date Type Department Care Team (Late Contact Info) Description 06/20/2021 Orders Only [place] [address] Lee Ann Jay MD [facility] [place] [address] H/O upper respiratory infection; Leukopenia, unspecified type Social History Tobacco Use [...] 1:00 PM EST Office Visit Hematology/Oncology at [address] [phone] Lee Ann Jay MD [facility] [place] [address] Leti Anderson, HELICOPTER MECHANIC [facility] [place] [address] documented as of this encounter Results * (ABNORMAL) COVID-19 Nucleocapsid Antibody (06/23/2021 10:42 AM EDT) Pathologist [facility] SARS-CoV-2 Nucleocap Ab Detected (A) Not Detected [facility] Comment: This test only detects antibodies to the nucleocapsid protein made from natural infection, and will not detect antibodies made against the spike protein due to vaccination. This is a qualitative total antibody assay. It does not distinguish between IgG and IgM antibodies to SARS-CoV-2. Results cannot be used to diagnose acute SARS-CoV-2 (Severe acute respiratory syndrome coronavirus 2, also known as 2019 novel coronavirus or 2019-nCoV) infection. A ? Not Detected? result does not rule out SARS-CoV-2 infection, particularly in those who have been in contact with the virus. Follow-up testing with a molecular diagnostic test to SARS-CoV-2 should be considered for individuals with symptoms of active SARS-CoV-2 infection. A ? Detected? result cannot be interpreted as conclusive evidence of protective immunity to the SARS-CoV-2 virus. Detection may be due to past or present infection with hey-IDSV-JjV-2 coronavirus strains, such as coronavirus HKU1, NL63, OC43, or 229E. This test was performed using the ElecMantis Digital Artss Axut-EFCW-BzV-2 total antibody test on the [employer]án e801 analyzer. This serology test is available following FDA Emergency Use Authorization, however it has not been reviewed by the FDA, nor is it FDA cleared or approved. The performance characteristics of this test were determined by the Department of Pathology and Laboratory Medicine at [facility]. The laboratory is certified under the Clinical Laboratory Improvement Amendments of 1988 (CLIA), 42 U.S.C. section 263a, to perform high complexity tests. Results should not be used as the sole basis to diagnose or exclude SARS-CoV-2 infection, to inform infection status, or to screen donated blood. CDC COVID-19 criteria for testing on human specimens and clinical management guidance information are available at the CDC Coronavirus Disease 2019 (COVID-19) webpage under Information for Healthcare Professionals (https://www.cdc.gov/coronavirus/2019-ncov/hcp/index.html) Additional information about this and other EUA tests can be found in provider and patient fact sheets at the following FDA website: https://www.fda.gov/medical-devices/pddhtnobmci-vznyasa-9751-vvdyv-84-kfmphxdoa- use-a nndjnbjumkbiz-dxokkrj-attqsct/pgoeo-twkqxlmlofw-ipbq Blood 06/23/2021 10:4 2 AM EDT 06/23/2021 10:49 AM EDT Lee Ann Jay MD CHEMISTRY ORDER[address] BLES [facility] [place] [address] * COVID-19 Sigifredo Antibody (06/23/2021 10:42 AM EDT) SARS-CoV-2 Sigifredo Ab Not Detected [facility] Comment: This is a total antibody assay to the spike protein of SARS-CoV-2. It does not distinguish between IgG and IgM antibodies to SARS-CoV-2. This test will detect antibodies made against the spike protein due to vaccination or from a previous infection. Results cannot be used to diagnose acute SARS-CoV-2 (Severe acute respiratory syndrome coronavirus 2, also known as 2019 novel coronavirus or 2019-nCoV) infection. A 'Not Detected' result does not rule out SARS-CoV-2 infection, particularly in those who have been in contact with the virus. Follow-up testing with a molecular diagnostic test to SARS-CoV-2 should be considered for individuals with symptoms of active SARS-CoV-2 infection. A 'Detected' result cannot be interpreted as conclusive evidence of protective immunity to the SARS-CoV-2 virus. Detection may be due to a past infection with ehn-KWDW-HjR-2 coronavirus strains, such as coronavirus HKU1, NL63, OC43, or 229E. This test was performed using the Elecsys Pvur-FPAT-IhX-2 S total antibody assay on the Che[employer]án e801 analyzer. This serology test is available following FDA Emergency Use Authorization, however it has not been reviewed by the FDA, nor is it FDA cleared or approved. The performance characteristics of this test were determined by the Department of Pathology and Laboratory Medicine at [facility]. The laboratory is certified under the Clinical Laboratory Improvement Amendments of 1988 (CLIA), 42 U.S.C. section 263a, to perform high complexity tests. Results should not be used as the sole basis to diagnose or exclude SARS-CoV-2 infection, to inform infection status, or to screen donated blood. CDC COVID-19 criteria for testing on human specimens and clinical management guidance information are available at the CDC Coronavirus Disease 2019 (COVID-19) webpage under Information for Healthcare Professionals (https://www.cdc.gov/coronavirus/2019-ncov/hcp/index.html) Additional information about this and other EUA tests can be found in provider and patient fact sheets at the following FDA website: https://www.fda.gov/medical-devices/zfjriitekzq-nyrbiaa-0397-qirar-95-drxlzxymi- use-a fudmlcubepkic-gyqqhrg-fxspufd/aazls-otqpmotzghr-ngcr Blood 06/23/2021 10:4 2 AM EDT 06/23/2021 10:49 AM EDT Lee Ann Jay [place] [address] documented in this encounter Visit Diagnoses Diagnosis H/O upper respiratory infection Personal history of unspecified disease of respiratory system Leukopenia, unspecified type documented in this encounter Care Teams Manager Acute Relationship Specialty Start Date End Date Julia Chatterjee MD [address] [place] [address] PCP - General 01/31/10 documented as of this encounter
--- OUTSIDE RECORDS SUMMARY | 2023-10-22 02:48 | XMS_ITS | Encounter Summary ---
Author Organization [facility] [place] [address] Care Team Providers Care Continuous Drier Operator Name Role Phone Julia Chatterjee MD Primary Care Provider [phone] Reason for Visit * Reason Onset Date Comments Abnormal Labs 04/05/2022 Critical ANC- 0. 23 Encounter Details Date Type Department Care Team (Late Contact Info) Description 04/05/2022 Telephone Hematology/Oncology at [address] [phone] Michelle Layne RN Abnormal Labs (Critical ANC- 0.23) Social History Tobacco Use Types Packs/Day Years [...] Telephone Encounter - Michelle Layne RN - 04/05/2022 9:40 AM EST Critical ANC of 0.23 called by [facility] lab. CBC entered into eDH. Has a FUV 04/11. Sent to providers forreview. documented in this encounter Plan of Treatment Upcoming Encounters Date Type Department Care Team (Late Contact Info) Description 04/15/2024 1:00 PM EST Office Visit Hematology/Oncology at [address] [phone] Lee Ann Jay MD [facility] [place] [address] Leti Anderson APRN [facility] [place] [address] documented as of this encounter Procedures Procedure Name Priority Date/Time Associated Diagnosis Comments CBC (WITH DIFF) Routine 04/05/2022 8:30 AM EST documented in this encounter Results * (ABNORMAL) CBC (with Diff) (04/05/2022 8:30 AM EST) White Blood Cell 2.08 [facility] Hemoglobin 13.0 [facility] Hematocrit 40.9 [facility] Platelet 181 [facility] ANC 0.23(A) 1.2 - 6.7 [facility] Blood 04/05/2022 8:30 AM EST Lee Ann Jay MD HEMATOLOGY ORDER ASHLEY [facility] [address] [facility] [place], [place] [address] [phone] documented in this encounter Visit Diagnoses Not on filedocumented in this encounter Care Teams Continuous Drier Operator Relationship Specialty Start Date End Date Julia Chatterjee MD [address] [place] [address] PCP - General 01/31/10 documented as of this encounter
--- OUTSIDE RECORDS SUMMARY | 2023-10-22 02:48 | XMS_ITS | Encounter Summary ---
Author Organization [facility] Address [facility] [place] [address] Care Team Providers Care Armored Car Driver Name Role Phone Julia Chatterjee MD Primary Care Provider [phone] Encounter Details Date Type Department Care Team (Late Contact Info) Description 11/06/2019 [place] [phone] Ailyn Momin RN Social History Tobacco Use [...] Telephone Encounter - Ailyn Momin RN - 11/06/2019 12:04 PM EDT Call received from lab at [facility] with critical lab value on pt. WBC: 1.69 ANC 0.42 They will fax paper copy to us Will send to Dr. Oliveros/Olya and Dr. Jay documented in this encounter Plan of Treatment Upcoming Encounters Date Type Department Care Team (Late Contact Info) Description 04/15/2024 1:00 PM EST Office Visit Hematology/Oncology at [address] [phone] Lee Ann Jay MD [facility] [place] [address] Leti Anderson APRN [facility] [place] [address] documented as of this encounter Visit Diagnoses Not on filedocumented in this encounter Care Teams Armored Car Driver Relationship Specialty Start Date End Date Julia Chatterjee MD [facility] [address] [place] [address] PCP - General 01/31/10 documented as of this encounter
--- OUTSIDE RECORDS SUMMARY | 2023-10-22 02:48 | XMS_ITS | Encounter Summary ---
Author Organization [facility] [place] [address] Care Team Providers Care Job Estimator Name Role Phone Julia Chatterjee MD Primary Care Provider [phone] Reason for Visit * Reason Onset Date Comments Abnormal Lab 04/09/2023 Encounter Details Date Type Department Care Team (Late Contact Info) Description 04/09/2023 Telephone Hematology/Oncology at [address] [phone] Vicky Madrigal RN Abnormal Lab Social History Tobacco Use Types Packs/Day Years [...] Telephone Encounter - Vicky Madrigal RN - 04/09/2023 9:00 AM EST [facility] lab called to report critical WBC 1.95 and ANC 0.12, pt has hx of leukopenia and has FUV scheduled with us 04/17/23. Providers made aware. documented in this encounter Plan of Treatment Upcoming Encounters Date Type Department Care Team (Late Contact Info) Description 04/15/2024 1:00 PM EST Office Visit Hematology/Oncology at [address] [phone] Lee Ann Jay MD [facility] [address] [place] [address] Leti Anderson APRN [facility] [place] [address] documented as of this encounter Visit Diagnoses Not on filedocumented in this encounter Care Teams Job Estimator Relationship Specialty Start Date End Date Julia Chatterjee MD [facility] [address] [facility] [address] [place] [address] PCP - General 01/31/10 documented as of this encounter
--- OUTSIDE RECORDS SUMMARY | 2023-10-22 02:48 | XMS_ITS | Encounter Summary ---
Author Organization [facility] Address [facility] [place] [address] Care Team Providers Care Energy Control Officer Name Role Phone Julia Chatterjee MD Primary Care Provider [phone] Encounter Details Date Type Department Care Team (Latest Contact Info) Description 11/02/2019 9:00 AM EDT TH Visit (TeleHealth) [place] [address] Yola Oliveros MD [facility] [place] [address] Other ulcerative colitis with complication Social History [...] this encounter Patient Instructions * Patient Instructions* Hesham Dobson MD - 11/02/2019 9:00 AM EDT - Continue canasa 1g every 2-3 nights - Check labs including CBC, LFTs, and CRP - Check fecal calprotectin this week. Will plan to check again in 3 months as well to monitor inflammatory activity and response to rectal 5-ASA therapy - Return to IBD clinic in 3 months documented in this encounter Progress Notes * Yola Oliveros MD - 11/02/2019 9:00 AM EDT GASTROENTEROLOGY TELEMEDICINE PROGRAM - ESTABLISHED PATIENT VISIT Chief Complaint: Leti Parry is a 68 y.o. F with history of indeterminate L sided chronic colitis, currently on Canasa 1 qhs Detailed IBD history: - L sided colitis diagnosed in 2011 on screening colonoscopy - Took Rowasa for a brief period, did not help much - Followed with a local couples therapist and used dietary supplements to maintain remission - Did well until August 2019 when she developed abdominal pain, fevers, loose stool. Went to [facility] andd CT showing inflamed colon. Flex [...] 1g qhs after colonoscopy in October 2019 Interval history: - Leti is feeling generally well - Rectal pain went away after her colonoscopy - Went for a 15-mile bike ride yesterday - Formed BM's, no blood - Has been using canasa 1g qhs for the last week - No fevers, chills, abdominal pain, n/v Review of systems: 14-point review of systems [...] past surgical history that includes Colonoscopy, Biopsy (73495) (07/05/2011); Colonoscopy, Remv Lesn, Snare ([id number]) (07/05/2011); Bone Marrow Aspiration W/Bx Through Same Incision/Site ([id number]) (Right, 01/08/2017); Bone Marrow Bx, Needle/Trocar ([id number]) (Right, 01/08/2017);CT Guided Aspiration Liver (09/02/2019); Sigmoidoscopy, Diagnostic ([id number]) (N/A, 09/02/2019); IR Drain Check/Change/Remove (09/28/2019); and Colonoscopy, Biopsy ([id number]) (N/A, 10/22/2019). Family History: family history is not on file. Social History: reports that she has never smoked. She has never used smokeless tobacco. She reports current alcohol use. She reports that she does not use drugs. No Physical Examination performed during this telemedicine visit Laboratory studies, imaging, and procedures (my review of prior records): Lab Results Component Value Date WBC 2.10 10/09/2019 RBC 4.23 09/07/2019 HGB 12.3 10/09/2019 HCT 38.6 10/09/2019 MCV 89.8 09/07/2019 MCH 27.7 09/07/2019 MCHC 30.8 (L) 09/07/2019 PLATELET 240 10/09/2019 RDWCV 14.3 (H) 09/07/2019 Assessment/Plan: Ms. Parry is a 68 y.o. patient with a history indeterminate L sided chronic colitis since 2011, E.coli bacteremia with liver abscess in August-September 2019, currently on Canasa 1 qhs. Overall she is is symptomatically doing quite well. Her recent colonoscopy in October 2019 did show active mild sigmoid colitis and severe proctitis with ulceration, with an intervening area of normalappearing mucosa between rectal and sigmoid inflammation. While she had been previously labeled as having ulcerative colitis, some features of her colitis could be more consistent with Crohn's, whichwe discussed during our encounter today. Nevertheless, we advised a trial of topical mesalamine therapy. I discussed with Leti the need forlong-term medical therapy to help induce/maintain remission of her IBD, to which she had some concerns about being on long-term medications and their side effects. We talked about the good safety profile of mesalamine and that studies have shown that oral + rectal therapy has been ferry terminal agent outcomes than either alone. We discussed that the goal of therapy is to prevent alf complications of uncontrolled inflammation such as colon cancer, and her in her case recurrent infection, since we think the colitis was the inciting event that led to her E.Coli bacteremia and liver abscess. For now Leti wishes to continue with the Canasa alone rather than start combination oral therapy as well. We discussed tracking her inflammation using stool calprotectin as a surrogate and seeing how she does. If non-invasive inflammatory markers remain elevated or become more elevated over time, we can readdress the medication regimen she is on. Recommendations: - Continue canasa 1g every 2-3 nights - Check labs including CBC, LFTs, and CRP - Check fecal calprotectin this week. Will plan to check again in 3 months as well to monitor inflammatory activity and response to rectal 5-ASA therapy - Return to IBD clinic in 3 months Patient seen and discussed with Dr. Domo Dobson MD [facility] [place] [phone] ATTENDING ADDENDUM I interviewed Leti Parry with Dr. Dobson during our telephone visit today. I have discussed thecase with him and confirm the history outlined in this note. The assessment and plan were formulated in discussion with me at the time of this encounter, and I agree with them as documented. In short, we explained that she has IBD, probably best described as IBDU, and that it requires chronic treatment to decrease chance of flares and to minimize complications. Specifically, we are concerned that the best explanation for hepatic abscess is translocation from an inflamed colorectal mucosa. After long discussion, agreed to monitor while on suppositories, though we had recommended adding oral mesalamine as well. If fecal calprotectin does not decreased and stay low, would revisit adding oral meslalamine. 20 min of this 25 min televisit was spent counseling the patient in the issues outlined above. Marija Oliveros MD [facility] [employer] of data Co-Director, [facility] Section of Gastroenterology and Hepatology [place] [place] [address] documented in this encounter Plan of Treatment Upcoming Encounters Date Type Department Care Team (Late st Contact Info) Description 04/15/2024 1:00 PM EST Office Visit Hematology/Oncology at [address] [phone] Lee Ann Jay MD [facility] DR [place] [address] Leti Anderson APRN [facility] DR [place] [address] documented as of this encounter Visit Diagnoses Diagnosis Other ulcerative colitis with complication documented in this encounter Care Teams Energy Control Officer Relationship Specialty Start Date End Date Julia Chatterjee MD [facility] [address] [place] [address] PCP - General 01/31/10 documented as of this encounter
--- OUTSIDE RECORDS SUMMARY | 2023-10-22 02:48 | XMS_ITS | Encounter Summary ---
Author Organization Formerly [facility] Address [facility] [place] [address] Care Team Providers Care Meter Tester Primary Name Role Phone Julia Chatterjee MD Primary Care Provider [phone] Encounter Details Date Type Department Care Team (Late st Contact Info) Description 04/11/2022 12:00 PM EST TH Visit (TeleHealth) Hematology/Oncology at [address] [phone] Lee Ann Rodriguez MD [facility] DR HEMATOLOGY [place] [address] Large granular lymphocytic leukemia Social History Tobacco [...] Sign Reading Time Taken Comments Blood Pressure 131/81 04/11/2022 12:03 PM EST Pulse 72 04/11/2022 12:03 PM EST Temperature 36.3 ??C (97.3 ??F) 04/11/2022 12:[address] Respiratory Rate - - Oxygen Saturation 100% 04/11/2022 12:03 PM EST Inhaled Oxygen Concentration - - Weight 68.5 kg (151 lb) 04/11/2022 12:03 PM EST Height - - Body Mass Index 27.16 04/12/2021 11:33 AM EST documented in this encounter Progress Notes * Lee Ann Rodriguez MD - 04/11/2022 12:00 PM EST Images from the original note were not included. Hematology/Oncology New Patient Note Patient ID: Leti [...] help much - Followed with a local car retarder operator and used dietary supplements to maintain remission - Did well until August 2019 when she developed abdominal pain, fevers, loose stool. Went to [facility] andd CT showing inflamed colon. Flex sig [...] qhs after colonoscopy in October 2019 - [place] worse on Canasa - fecal calpro 109 [...] flow ) are being pursued at the [facility]. Should ??cytopenias persist , it may be [...] LGL but we cannot say with certainty I confirmed with the patient that this was a video or telephone encounter in lieu of an office visit. Charges may be incurred. Patient agreed and gave me permission to proceed. History of Present Illness: Ms. Parry is a 71 y.o. with pmhx of ? Ulcerative colitis- [...] better now with the help of her car retarder operator. Her sx are GREAT on the naturopathic meds with minimal GI symptoms Feels well, good energy . No infections. She enjoys her Peloton bike a few months ago. Loves the exercise and classes. Also does pilates and private classes. She is caring for her parents (92 and 88yo) in [facility]. Plans to travel with her camper to [facility] in Apr - . VW [address] [facility]. No infections. Has been followed by a car retarder operator. They are following her for inflammation markers- calprotectin test was good. COLO tomorrow. COVID infection X 2. Did well with it both times. Continues to decline COVID vaccination. Her DINO was positive in Oct 2016. At some point, she talked to her sisters and their counts are on the low end of normal as well. She returns for annual follow-up Review of Systems:a Constitutional: No fevers/chills. [...] LIVER 09/02/2019 CT Guided Aspiration Liver 09/02/2019 [facility] RAD CAT SCAN ??? IR DRAIN CHECK/CHANGE/REMOVE 09/28/2019 IR Drain Check/Change/Remove 09/28/2019 Cliff Langston MD [facility] INTERVENTIONL RAD ??? PRO BONE MARROW ASPIRATION W/BX THROUGH SAME INCISION/SITE Right 01/08/2017 ([facility] MSURG) BONE MARROW ASP PERFORMED W/BX THRU BX INCISION (WRVU 0.16) performed by Lee Ann Rodriguez MD at [facility] OSC ??? PRO COLONOSCOPY, BIOPSY 07/05/2011 COLONOSCOPY FLEXIBLE, WITH BX performed by AYAZ NELSON at [facility] ENDOSCOPY ??? PRO COLONOSCOPY, BIOPSY N/A 10/22/2019 COLONOSCOPY FLEXIBLE, WITH BX (WRVU 3.66) performed by Yola Oliveros MD at [facility] ENDOSCOPY ??? PRO COLONOSCOPY, REMV LESN, SNARE 07/05/2011 COLONOSCOPY, POLYPECTOMY, REMOVAL LESION BY SNARE performed by AYAZ NELSON at [facility] ENDOSCOPY ??? PRO DIAGNOSTIC BONE MARROW BIOPSIES Right 01/08/2017 ([facility] MSURG) BONE MARROW,BIOPSY (WRVU 1.37) performed by Lee Ann Rodriguez MD at [facility] OSC ??? PRO SIGMOIDOSCOPY, DIAGNOSTIC N/A 09/02/2019 FLEXIBLE SIGMOIDOSCOPY performed by Ayaz Nelson MD at [facility] ENDOSCOPY Medications; Current Outpatient Medications on File Prior to Visit Medication Sig Dispense Refill ??? magnesium 250 mg Tablet Take by mouth. ??? zinc sulfate (ZINC-220 ORAL) Take by mouth. ??? cholecalciferol, vitamin D3, (VITAMIN D3 ORAL) Take 4,000 Units by mouth daily. ??? ascorbic acid, Vitamin C, (Vitamin C) 500 mg Tablet Take 500 mg by mouth 2 times daily. ??? selenium 50 mcg Tablet Take 50 mcg by mouth. ??? [DISCONTINUED] glucosamine sulfate 500 mg Tablet Take by mouth. ??? [DISCONTINUED] glutamine (GLUTAMENT ORAL) Take by mouth. ??? [DISCONTINUED] chlorel/chloroph/D3/B2/FA/iron (CHLORELLA CAPS ORAL) Take by mouth daily. No current facility-administered medications on file prior to visit. Allergies: Allergies Allergen Reactions ??? Benzalkonium Chloride ??? Gluten Family History: Father- 87, healthy Mother- 83, healthy 4 brothers and 2 sisters all healthy; she is told that her sisters also have low white counts. Social History: Lives in [facility]. . 1 son 38 years old- healthy. 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 Likes to bike in [place] w/ her . 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 Social History Substance Use Topics ??? Smoking status: Never Smoker ??? Smokeless tobacco: None ??? Alcohol use 1 shot of tequila few times a week PHYSICAL EXAM BP 131/81 (BP Location (NBP): Right arm) Pulse 72 Temp 36.3 ??C (97.3 ??F) (Temporal) Wt 68.5kg (151 lb) SpO2 100% BMI 27.16 kg/m?? Body surface area is 1.74 meters squared. GENERAL: Leti Parry appears well and is in no acute distress. Video appointment Labs: No results found for this or any previous visit (from the past 72 hour(s)). Latest Reference Range & Units 04/05/22 08:30 WBC 2.08 (E) Hemoglobin 13.0 (E) Hematocrit 40.9 (E) Platelets 181 (E) Neutr Abs (ANC) 1.2 - 6.7 0.23 ! (E) HEMEPATH: DIAGNOSIS 1. Normocellular marrow with normal [...] flow ) are being pursued at the [place] [facility]. Should ??cytopenias persist , it may [...] receptor gene rearrangement detected. Radiology: US at [facility] 11/2016. Liver 14.5 cm. Spleen 8cm. Assessment and Recommendations: 71 y.o. Healthy female who has been referred to us for leukopenia. She has had leukopenia since 2006 with normal hemoglobin and platelet. She has no symptoms- no increased frequency of infections. 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 She has been working with a car retarder operator who started her on selenium and zinc and about a dozen other supplements. Counts are a bit higher so we will see. Jewel Hole Rough Opener has been helping her with bowel issues. These are better w/ diet adjustments. Diet changes have helped her UC and GI symptoms. Of note, she is on multiple naturopathic medications through her signal constructor - mostly to help w/ herGI tract. [...] [address] Han Castillo at [facility], an LGL specialist, he did a lot of testing and recommended MTX given that her ANC is less than 500. His note is in Care Everywhere. He otherwise had agreedwith our recommendations in general. He also recommended COVID vaccination. Leti remains well informed and involved in LGL symposiums on line. She responds beautifully to GCSF. Needs GCSF before procedures or surgeries. Dental cleanings - In the past Leti [...] body. Plan: ?? GCSF 480mcg prn procedures/surgeries and infections. Reminded to Call with any infections as we will give GCSF and possible ATB's. ?? Pt declined treatment for LGL at this time. ?? Amoxicillin 2 gm one hour before dental cleanings. ?? RTC in 1 year with cbc, cmp ?? Levofloxin 750 mg daily X 5 days - she will take w her when she travels out of country. I explained that she would also need to seek medical attention but she can start this to help avoid severe inffection. She will also take my office note for medical reference. I discussed all of the above with the patient and all of her questions were answered. Support and counseling given as appropriate. This note was written or modified using [employer] voice recognition software. The final note was screened for mistakes. Please excuse any remaining errors. I spent 30 min on this video/ telehealth encounter including chart review, time with the patient and documentation. documented in this encounter Miscellaneous Notes * Addendum Note - Lee Ann Rodriguez MD - 04/11/2022 12:00 PM ESTAddended by: LEE ANN RODRIGUEZ on: 04/11/2022 01:17 PM Modules accepted: Orders documented in this encounter Plan of Treatment Upcoming Encounters Date Type Department Care Team (Late st Contact Info) Description 04/15/2024 1:00 PM EST Office Visit Hematology/Oncology at [address] [phone] Lee Ann Rodriguez MD [facility] HEMATOLOGY [place] [address] Leti Anderson APRN [facility] HEMATOLOGY [place] [address] documented as of this encounter Procedures Procedure Name Priority Date/Time Associated Diagnosis Comments COMPREHENSIVE METABOLIC PANEL Routine 04/05/2022 documented in this encounter Results * Comprehensive metabolic panel (non-fasting) (04/05/2022) Creatinine 0.8 Potassium 4.0 Bilirubin, Total 0.4 Aspartate Aminotransferase 24 Alanine Aminotransferase 23 Lactate Dehydrogenase 205 Blood 04/05/2022 Historical Provider CHEMISTRY ORDERAB LES documented in this encounter Visit Diagnoses Diagnosis 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
--- OUTSIDE RECORDS SUMMARY | 2023-10-22 02:48 | XMS_ITS | Encounter Summary ---
Author Organization [facility] [place] [address] Care Team Providers Care Parts Finisher Name Role Phone Julia Chatterjee MD Primary Care Provider [phone] Encounter Details Date Type Department Care Team (Latest Contact Info) Description 06/23/2021 10:35 AM EDT Laboratory Appointment Lab [address] [place] [phone] H/O upper respiratory infection; Leukopenia, unspecified type [...] 1:00 PM EST Office Visit Hematology/Oncology at [address] [phone] Lee Ann Jay MD [facility] [address] [place] [address] Leti Anderson, HOMEOWNER [employer]ATION MANAGER [facility] [place] [address] documented as of this encounter Procedures Procedure Name Priority Date/Time Associated Diagnosis Comments HC SARS-COV-2 SPIKE ANTIBODY Routine 06/23/2021 10:42 AM EDT H/O upper respiratory infection Leukopenia, unspecified type HC VENIPUNCTURE Routine 06/23/2021 10:42 AM EDT H/O upper respiratory infection Leukopenia, unspecified type documented in this encounter Results * COVID-19 Sigifredo Antibody (06/23/2021 10:42 AM EDT) SARS-CoV-2 Sigifredo Ab Not Detected [facility] Comment: This is a total [...] be due to a past infection with ykr-QYMC-VnO-2 coronavirus strains, such as coronavirus HKU1, NL63, OC43, or 229E. This test was performed using the Elecsys Rgne-XCFN-ZdN-2 S total antibody assay on the Cheo Román e801 analyzer. This serology test is available following FDA Emergency Use Authorization, however it has not been reviewed by the FDA, nor is it FDA cleared or approved. The performance characteristics of this test were determined by the Department of Pathology and Laboratory Medicine at [facility]. The laboratory is certified under the Clinical [...] fact sheets at the following FDA website: https://www.fda.gov/medical-devices/nfsvmmsoznu-sarffqp-1514-utakp-14-ynofhdekz- use-a kxfezkldpzvwj-lmjojam-oclxary/bvzez-boulfczmoei-bvus Blood 06/23/2021 10:4 2 AM EDT 06/23/2021 10:49 AM EDT Lee Ann Jay MD CHEMISTRY ORDERA BLES [facility] [place] [address] * (ABNORMAL) COVID-19 Nucleocapsid Antibody (06/23/2021 10:42 AM EDT) SARS-CoV-2 Nucleocap Ab Detected (A) Not Detected [facility] Comment: This test only detects [...] due to past or present infection with tmw-CFBR-VvG-2 coronavirus strains, such as coronavirus HKU1, NL63, OC43, or 229E. This test was performed using the Elecsys Fpku-ILXC-ZpJ-2 total antibody test on the Cheo Román e801 analyzer. This serology test is available following FDA Emergency Use Authorization, however it has not been reviewed by the FDA, nor is it FDA cleared or approved. The performance characteristics of this test were determined by the Department of Pathology and Laboratory Medicine at [facility]. The laboratory is certified under the Clinical [...] fact sheets at the following FDA website: https://www.fda.gov/medical-devices/rrydruxaral-eprwqio-5836-ldvsg-98-vvjsqeqlg- use-a izrhplhckfael-uzlvmnb-ovcxvjl/qincx-qnutreregsn-ssnn Blood 06/23/2021 10:4 2 AM EDT 06/23/2021 10:49 AM EDT Lee Ann Jay MD [place] [address] documented in this encounter Visit Diagnoses Diagnosis H/O upper respiratory infection Personal history of unspecified disease of respiratory system Leukopenia, unspecified type documented in this encounter Care Teams Parts Finisher Relationship Specialty Start Date End Date Julia Chatterjee MD [address] [place] [address] PCP - General 01/31/10 documented as of this encounter
--- OUTSIDE RECORDS SUMMARY | 2023-10-22 02:48 | XMS_ITS | Encounter Summary ---
Author Organization Formerly [facility] [place] [address] Care Team Providers Care Lead Informatica Developer Name Role Phone Julia Chatterjee MD Primary Care Provider [phone] Encounter Details Date Type Department Care Team (Late Contact Info) Description 06/04/2022 [place] [phone] Jasmin Hills Social History Tobacco Use Types Packs/Day Years [...] encounter Miscellaneous Notes * Telephone Encounter - Jasmin Hills - 06/04/2022 1:18 PM EDT Call made to patient per in basket request from: Dr. Oliveros Patient needs: follow up scheduled with Ansley RETANA for patient to call GI clinic to schedule documented in this encounter Plan of Treatment Upcoming Encounters Date Type Department Care Team (Late Contact Info) Description 04/15/2024 1:00 PM EST Office Visit Hematology/Oncology at [address] [phone] Lee Ann Jay MD [facility] DR [place] [address] Leti Anderson APRN [facility] [place] [address] documented as of this encounter Visit Diagnoses Not on filedocumented in this encounter Care Teams Lead Informatica Developer Relationship Specialty Start Date End Date Julia Chatterjee MD [facility] KINA FELIZ [address] [address] PCP - General 01/31/10 documented as of this encounter
--- OUTSIDE RECORDS SUMMARY | 2023-10-22 02:48 | XMS_ITS | Encounter Summary ---
Author Organization [facility] Address [facility] [place] [address] Care Team Providers Care Caseworker Protective Services Name Role Phone Julia Chatterjee MD Primary Care Provider [phone] Encounter Details Date Type Department Care Team (Latest Contact Info) Description 09/19/2020 4:30 PM EDT TH Visit (TeleHealth) [place] [address] Yola Oliveros MD [facility] [place] [address] Other ulcerative colitis with complication Social History [...] encounter Patient Instructions * Patient Instructions* Yola Oliveros MD - 09/19/2020 4:30 PM EDT #Continue current diet #Colonoscopy for restaging and also for surveillance late this fall 2020 #Follow-up at the time of colonoscopy and via telehealth in approximately 9 to 10 months. documented in this encounter Progress Notes * Yola Oliveros MD - 09/19/2020 4:30 PM EDT GASTROENTEROLOGY TELEMEDICINE PROGRAM - ESTABLISHED PATIENT VISIT Chief Complaint: Leti Parry is a 69 y.o. F with history of indeterminate L sided chronic colitis Detailed IBD history: - L sided colitis diagnosed in 2011 on screening colonoscopy - Took Rowasa for a brief period, did not help much - Followed with a local offal roller and used dietary supplements to maintain remission - Did well until August 2019 when she developed abdominal pain, fevers, loose stool. Went to [facility] andd CT showing inflamed colon. [...] qhs after colonoscopy in October 2019 - [place] worse on Canasa - fecal calpro 109 - more cramps, mucus, and low energy. - Went on low inflammatorydiet - symptoms better. Fecal calpro <15 01/2020 Interval history: Ms. Parry is doing very well. We had planned on a 6-month follow-up, but for reasons not entirely clear she was scheduled sooner than that. In any case, she continues to feel very well. Stools are completely formed. She is moving her bowels every 1 to 2 days and usually daily. There is no more mucus discharge, tenesmus, urgency. There has been no bleeding. She has been no abdominal pain. She is very active, riding her bike. She is scheduled on October 13 to go to [place] for a second opinion regarding her LGL. Review of systems: 14-point review of systems [...] past surgical history that includes Colonoscopy, Biopsy (19244) (07/05/2011); Colonoscopy, Remv Noeln, Snare (21035) (07/05/2011); Bone Marrow Aspiration W/Bx Through Same Incision/Site (G0364) (Right, 01/08/2017); Bone Marrow Bx, Needle/Trocar (17748) (Right, 01/08/2017);CT Guided Aspiration Liver (09/02/2019); Sigmoidoscopy, Diagnostic (05451) (N/A, 09/02/2019); IR Drain Check/Change/Remove (09/28/2019); and Colonoscopy, Biopsy (31390) (N/A, 10/22/2019). Family History: family history is [...] 0.11, and homocystine 14.2 on May 24. Calprotectin 32.5 - September 09 Assessment/Plan: Ms. Parry is a 69 y.o. patient with a history indeterminate L sided chronic colitis since 2011, E.coli bacteremia with liver abscess August-September 2019. She has done really well despite going off of all mesalamine therapy. She has had no recurrent symptoms of colitis, and serial fecal calprotectin has been normal. We discussed continuing monitoring. However, as mentioned at last visit, we should proceed with colonoscopy to reevaluate for mucosal healing. She understands that fecal calprotectin is a surrogate marker. Given the serious complicationof a liver abscess last year, reevaluating endoscopically poor healing is prudent. Recommendations: #Continue current diet #Colonoscopy for restaging and also for surveillance late this fall 2020 #Follow-up at the time of colonoscopy and via telehealth in approximately 9 to 10 months. I spent 20 min today reviewing the chart preparing for this visit, counseling the patient [id number]-gapa on the issues outlined above, and documenting an implementing the plan. Ms. Parry was located in [place] at the time of this visit. Marija Oliveros MD Scrap Pilergaming table operator Co-Director, [facility] Section of G[place]enter[place] [address] documented in this encounter Plan of Treatment Upcoming Encounters Date Type Department Care Team (Late st Contact Info) Description 04/15/2024 1:00 PM EST Office Visit Hematology/Oncology at [address] [phone] Lee Ann Jay MD [facility] DR HEMATOLOGY [place] [address] Leti Anderson APRN [facility] DR HEMATOLOGY [place] [address] documented as of this encounter Visit Diagnoses Diagnosis Other ulcerative colitis with complication documented in this encounter Care Teams Caseworker Protective Services Relationship Specialty Start Date End Date Julia Chatterjee MD Sush[address] [place] [address] PCP - General 01/31/10 documented as of this encounter
--- OUTSIDE RECORDS SUMMARY | 2023-10-22 02:48 | XMS_ITS | Encounter Summary ---
Author Organization [facility] Address [facility] [place] [address] Care Team Providers Care Family Resource Management Specialist Name Role Phone Julia Chatterjee MD Primary Care Provider [phone] Reason for Visit * Reason Onset Date Comments Labs Only 12/10/2019 Encounter Details Date Type Department Care Team (Late Contact Info) Description 12/10/2019 Telephone Hematology/Oncology at [address] [phone] Mera Cintron RN Labs Only Social History Tobacco Use [...] Encounter - Mera Cintron RN - 12/10/2019 4:03 PM EDT Opened by mistake documented in this encounter Plan of Treatment Upcoming Encounters Date Type Department Care Team (Late Contact Info) Description 04/15/2024 1:00 PM EST Office Visit Hematology/Oncology at [address] [phone] Lee Ann Jay MD [facility] DR HEMATOLOGY AND ONCOLOG[place] [address] Leti Anderson APRN [facility] DR HEMATOLOGY [place] [address] documented as of this encounter Procedures Procedure Name Priority Date/Time Associated Diagnosis Comments CBC (WITH DIFF) Routine 12/03/2019 documented in this encounter Results * CBC (with Diff) (12/03/2019) White Blood Cell 1.86 Hemoglobin 13.0 Hematocrit 41.9 Platelet 209 ANC 0.2 Blood specimen (specimen) 12/03/2019 Historical Provider HEMATOLOGY ORDERA BLES documented in this encounter Visit Diagnoses Not on filedocumented in this encounter Care Teams Family Resource Management Specialist Relationship Specialty Start Date End Date Julia Chatterjee MD [facility] KINA [address] [place] [address] PCP - General 01/31/10 documented as of this encounter
--- OUTSIDE RECORDS SUMMARY | 2023-10-22 02:48 | XMS_ITS | Encounter Summary ---
Author Organization [facility] [place] [address] Care Team Providers Care Supervisor Tunnel Heading Name Role Phone Julia Chatterjee MD Primary Care Provider [phone] Reason for Referral * Consultation (Routine) - Closed Specialty Diagnoses / Procedures Referred By Kimani t Referred To Contact Gastroenterology Diagnoses Encounter for screening colonoscopy Julia Chatterjee MD [address] [place] [address] [facility] Endoscopy [address] [place] [address] Referral ID Status Reason Start Date Expiration Date V isits Requested Visits Authorized [id number] Closed Consult, Test & Treat PCP Updated and/or Approved 01/12/2022 01/12/2023 1 1 Encounter Details Date Type Department Care Team (Latest Contact Info) Description 01/12/2022 Transcribe Orders eDH Incoming Referrals [phone] Julia Chatterjee MD [address] [place] [address] Encounter for screening colonoscopy Social History Tobacco Use Types Packs/Day Years [...] PM EST Office Visit Hematology/Oncology at [address] [phone] Lee Ann Jay MD [facility] DR [place] [address] Leti Anderson APRN [facility] [place] [address] Scheduled Referrals Name Type Priority Associated Diagnoses Order Schedule Referral to Gastroenterology Outpatient Referral Routine Encounter for screening colonoscopy Ordered: 01/12/2022 documented as of this encounter Visit Diagnoses Diagnosis Encounter for screening colonoscopy Special screening for malignant neoplasms, colon documented in this encounter Care Teams Supervisor Tunnel Heading Relationship Specialty Start Date End Date Julia Chatterjee MD [facility] K[address] [place] [address] PCP - General 01/31/10 documented as of this encounter
--- OUTSIDE RECORDS SUMMARY | 2023-10-22 02:48 | XMS_ITS | Encounter Summary ---
Author Organization Formerly [facility] [place] [address] Care Team Providers Care Cloth Bleaching Range Tender Name Role Phone Julia Chatterjee MD Primary Care Provider [phone] Reason for Visit * Reason Comments Injections zarxio Encounter Details Date Type Department Care Team (Late st Contact Info) Description 04/11/2022 12:30 PM EST Infusion Hematology Oncology at [address] [phone] Large granular lymphocytic leukemia Social [...] as of this encounter Progress Notes * Melany Alvarado RN - 04/11/2022 12:30 PM EST INFUSION THERAPY ADMINISTRATION NOTES DIAGNOSIS: leukopenia PROTOCOL:na CYCLE #: na REASON FOR VISIT: zarxio SUBJECTIVE Leti Parry offers no complaints, she had a telehealth visit with Dr. Jay prior to infusionvisit. OBJECTIVE Zarxio 480 mcg in left lower quadrant of abdomen per patient's request REACTIONS (DESCRIPTION, TIME, INTERVENTION AND EFFECTIVENESS) none ASSESSMENT Leti Parry was awake, alert and he tolerated treatment well. PLAN Return to clinic per routine. 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, without mention of having achieved remission documented in this encounter Administered Medications Inactive Administered Medications - up to 3 most recent administrations Medication Order MAR Action Action Date Dose Rate Site filgrastim-sndz (Zarxio) (480 mcg/0.8 mL) injection 480 mcg 480 mcg, Subcutaneous, ONCE, 1 dose, On Sat04/11/22 at 1315, Bring to room temperature 30 minutes before administration, Routine Given 04/11/2022 1:26 PM EST 480 mcg Left Lower Quadrant documented in this encounter Care Teams Cloth Bleaching Range Tender Relationship Specialty Start Date End Date Julia Chatterjee MD [address] [place] [address] PCP - General 01/31/10 documented as of this encounter
--- OUTSIDE RECORDS SUMMARY | 2023-10-22 02:48 | XMS_ITS | Encounter Summary ---
Author Organization [facility] Address [facility] [place] [address] Care Team Providers Care Compugraph Operator Name Role Phone Julia Chatterjee MD Primary Care Provider [phone] Encounter Details Date Type Department Care Team (Latest Contact Info) Description 04/17/2023 Travel Social History Tobacco Use Types Packs/Day [...] PM EST Office Visit Hematology/Oncology at [address] [phone] Lee Ann Jay MD [facility] DR HEMATOLOGY [place] [address] Leti Anderson, PRODUCTION SUPPORT ENGINEER [facility] [place] [address] documented as of this encounter Visit Diagnoses Not on filedocumented in this encounter Care Teams Compugraph Operator Relationship Specialty Start Date End Date Julia Chatterjee MD [address] [place] [address] [id number] PCP - General 01/31/10 documented as of this encounter
--- OUTSIDE RECORDS SUMMARY | 2023-10-22 02:48 | XMS_ITS | Encounter Summary ---
Author Organization [facility] Address [facility] [place] [address] Care Team Providers Care Bag Checker Name Role Phone Julia Chatterjee MD Primary Care Provider [phone] Encounter Details Date Type Department Care Team (Late st Contact Info) Description 04/27/2020 1:00 PM EST Office Visit Hematology/Oncology at [address] [phone] Lee Ann Jay MD [facility] DR HEMATOLOGY [place] [address] Large granular lymphocytic leukemia Social History Tobacco [...] Sign Reading Time Taken Comments Blood Pressure 120/74 04/27/2020 1:01 PM EST Pulse 61 04/27/2020 1:01 PM EST Temperature 36.2 ??C (97.2 ??F) 04/27/2020 1:01 PM ES T Respiratory Rate 16 04/27/2020 1:01 PM EST Oxygen Saturation 99% 04/27/2020 1:01 PM EST Inhaled Oxygen Concentration - - Weight 61.2 kg (135 lb) 04/27/2020 1:01 PM EST Height 158.8 cm (5' 2.5) 04/27/2020 1:01 PM EST Body Mass Index 24.3 04/27/2020 1:01 PM EST documented in this encounter Progress Notes * Lee Ann Jay MD - 04/27/2020 1:00 PM EST Images from the original note [...] help much - Followed with a local neurology hospitalist and used dietary supplements to maintain remission - Did well until August 2019 when she developed abdominal pain, fevers, loose stool. Went to [facility] andd CT showing inflamed colon. Flex sig [...] qhs after colonoscopy in October 2019 - Logan worse on Canasa - fecal calpro 109 [...] flow ) are being pursued at the [facility]. Should ??cytopenias persist , it may [...] of Present Illness: Ms. Parry is a 69 y.o. with pmhx of ? Ulcerative colitis- [...] better now with the help of her neurology hospitalist. Feels well, good energy . No infections. Her DINO was positive in Oct 2016. She states that she has talked to her sisters and their counts are on the low end of normal as well. She returns for regularly scheduled follow-up Review of Systems: Constitutional: No fevers/chills. Denies fatigue, wt loss [...] LIVER 09/02/2019 CT Guided Aspiration Liver 09/02/2019 [facility] RAD CAT SCAN ??? IR DRAIN CHECK/CHANGE/REMOVE 09/28/2019 IR Drain Check/Change/Remove 09/28/2019 Cliff Langston MD [facility] INTERVENTIONL RAD ??? PRO BONE MARROW ASPIRATION W/BX THROUGH SAME INCISION/SITE Right 01/08/2017 [facility] BONE MARROW ASP PERFORMED W/BX THRU BX INCISION (WRVU 0.16) performed by Lee Ann Jay MD at [facility] OSC ??? PRO BONE MARROW BX, NEEDLE/TROCAR Right 01/08/2017 ([facility]) BONE MARROW,BIOPSY (WRVU 1.37) performed by Lee Ann Jay MD at [facility] OSC ??? PRO COLONOSCOPY, BIOPSY 07/05/2011 COLONOSCOPY FLEXIBLE, WITH BX performed by AYAZ NELSON at [facility] ENDOSCOPY ??? PRO COLONOSCOPY, BIOPSY N/A 10/22/2019 COLONOSCOPY FLEXIBLE, WITH BX (WRVU 3.66) performed by Yola Oliveros MD at [facility] ENDOSCOPY ??? PRO COLONOSCOPY, REMV LESN, SNARE 07/05/2011 COLONOSCOPY, POLYPECTOMY, REMOVAL LESION BY SNARE performed by AYAZ NELSON at [facility] ENDOSCOPY ??? PRO SIGMOIDOSCOPY, DIAGNOSTIC N/A 09/02/2019 FLEXIBLE SIGMOIDOSCOPY performed by Ayaz Nelson MD at [facility] ENDOSCOPY Medications; Current Outpatient Medications [...] (CHLORELLA CAPS ORAL) Take by mouth daily. ??? [DISCONTINUED] Mesalamine (Canasa) 1,[address] 1 suppository rectally nightly. 30 suppository 3 ??? [DISCONTINUED] hydrocortisone (Anusol-HC) [address] 1 suppository rectally 2 times daily. 14 suppository 1 ??? [DISCONTINUED] L.acidophil/L.plantar/Bifido 7 (UP4 PROBIOTICS ADULT ORAL) Take by mouth 3 timesdaily. No current facility-administered medications on file prior to visit. Allergies: Allergies Allergen Reactions ??? Benzalkonium Chloride ??? Gluten Family History: Father- 87, healthy Mother- 83, healthy 4 brothers and 2 sisters all healthy; she is told that her sisters also have low white counts. Social History: [facility]. . 1 son 38 years old- healthy. 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 Likes to bike in [place] w/ her . Social History Substance Use Topics ??? Smoking status: Never Smoker ??? Smokeless tobacco: None ??? Alcohol use 1 shot of tequila few times a week PHYSICAL EXAM BP 120/74 (Patient Position: Sitting) Pulse 61 Temp 36.2 ??C (97.2 ??F) (Temporal) Resp 16 Ht 158.8 cm (5' 2.5) Wt 61.2 kg (135 lb) SpO2 99% BMI 24.30 kg/m?? Body surface area is 1.64 meters squared. GENERAL: Leti Parry appears well [...] No spinal or chest wall tenderness. Labs: No results found for this or any previous visit (from the past 72 hour(s)). date wbc anc hgb plt 07/09/16 2.1 [...] flow ) are being pursued at the [place] [facility]. Should ??cytopenias persist , it may [...] receptor gene rearrangement detected. Radiology: US at [facility] 11/2016. Liver 14.5 cm. Spleen 8cm. Assessment and Recommendations: 69 y.o. Healthy female who has been referred to us for leukopenia. She has had leukopenia since 2006 with normal hemoglobin and platelet. She has no symptoms- no increased frequency of infections. 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 She has been working with a neurology hospitalist who started her on selenium and zinc and about a dozen other supplements. Counts are a bit higher so we will see. Waiter/Waitress Cabin Class has been helping her with bowel issues. These are better w/ diet adjustments. Diet changes have helped her UC and GI symptoms. Of note, she is on multiple naturopathic medications through her cnc technician - mostly to help w/ herGI tract. [...] ever sent out. Given recent diagnosis of LGL, no longer necessary. She recently had [...] will support her with G-CSF as needed She responds beautifully to GCSF. Needs GCSF [...] G-CSF the day before the dental work. Plan: ?? GCSF 480mcg prn procedures/surgeries ?? Amoxicillin 2 gm one hour before dental cleanings. Script today. ?? rtc in 1 year with cbc, cmp Addendum: Leti asked about the safety of the Covid vaccination with LGL. This is very rare blood disorder. Icould not think of a reason why it would not be safe for her, although it is possible that she willnot be able to mount as robust an immune response as patients without underlying lymphoproliferative disorders. Following her appointment I did a literature search and could find no contraindicationsto the Covid vaccination in patients with LGL. However, I understand her concern given how rare herdisease is. She prefers to wait until there might be more data available. This will mean that she will need to continue to quarantine and be extremely careful for a longer Period of time. She is comfortable with that and I understand her concerns. I told her I would call her if I find any more information to share with her. I discussed all of the above with the patient and all of her questions were answered. Support and counseling given as appropriate. This note was written or modified using [employer] voice recognition software. The final note was screened for mistakes. Please excuse any remaining errors. documented in this encounter Plan of Treatment Upcoming Encounters Date Type Department Care Team (Late st Contact Info) Description 04/15/2024 1:00 PM EST Office Visit Hematology/Oncology at [address] [phone] Lee Ann Jay MD [facility] HEMATOLOGY [place] [address] Leti Anderson APRN [facility] HEMATOLOG[place] [address] documented as of this encounter Procedures Procedure Name Priority Date/Time Associated Diagnosis Comments CREATININE Routine 04/21/2020 CBC (WITH DIFF) Routine 01/21/2020 documented in this encounter Results * Creatinine (04/21/2020) Creatinine 0.7 Blood 04/21/2020 Historical Provider CHEMISTRY ORDERAB LES * CBC (with Diff) (01/21/2020) White Blood Cell 1.62 Hemoglobin 13.1 Hematocrit 40.3 Platelet 150 ANC 0.13 Blood 01/21/2020 Historical Provider HEMATOLOGY ORDERA BLES documented in this encounter Visit Diagnoses Diagnosis 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, without mention of having achieved remission documented in this encounter Care Teams Bag Checker Relationship Specialty Start Date End Date Julia Chatterjee MD [facility] [address] [place] [address] PCP - General 01/31/10 documented as of this encounter
--- OUTSIDE RECORDS SUMMARY | 2023-10-22 02:48 | XMS_ITS | Encounter Summary ---
Author Organization [facility] [place] [address] Care Team Providers Care Director Embalmer Name Role Phone Julia Chatterjee MD Primary Care Provider [phone] Encounter Details Date Type Department Care Team (Late Contact Info) Description 02/14/2022 Telephone [place] [phone] Joann Barajas Social History Tobacco Use Types Packs/Day Years [...] 1:00 PM EST Office Visit Hematology/Oncology at [address] [phone] Lee Ann Jay MD [facility] DR HEMATOLOGY [place] [address] Leti Anderson, POLICE LIEUTENANT [facility] HEMATOLOGY [place] [address] documented as of this encounter Visit Diagnoses Not on filedocumented in this encounter Care Teams Director Embalmer Relationship Specialty Start Date End Date Julia Chatterjee MD [address] [place] [address] PCP - General 01/31/10 documented as of this encounter
--- OUTSIDE RECORDS SUMMARY | 2023-10-22 02:48 | XMS_ITS | Encounter Summary ---
Author Organization Formerly [facility] [place] [address] Care Team Providers Care Quality Control Lead Name Role Phone Julia Chatterjee MD Primary Care Provider [phone] Encounter Details Date Type Department Care Team (Late Contact Info) Description 04/05/2021 Telephone Hematology/Oncology at [address] [phone] Leonardo Fatima Social History Tobacco Use Types Packs/Day Years [...] 1:00 PM EST Office Visit Hematology/Oncology at [address] [phone] Lee Ann Jay MD [facility] [place] [address] eLti Anderson, NURSERY HELPER [facility] [place] [address] documented as of this encounter Visit Diagnoses Not on filedocumented in this encounter Care Teams Quality Control Lead Relationship Specialty Start Date End Date Julia Chatterjee MD [address] [place] [address] PCP - General 01/31/10 documented as of this encounter
--- OUTSIDE RECORDS SUMMARY | 2023-10-22 02:48 | XMS_ITS | Encounter Summary ---
[place] [address] Care Team Providers Care Rum Processing Operator Name Role Phone Julia Chatterjee MD Primary Care Provider [phone] Reason for Visit * Reason Onset Date Comments Reminder Appointment 02/02/2020 Encounter Details Date Type Department Care Team (Late Contact Info) Description 02/02/2020 [place] [phone] Christy Lopez CCMA Reminder Appointment Social History [...] Telephone Encounter - Christy Lopez CCMA - 02/02/2020 9:13 AM EST Called patient to review medications and allergies for their upcoming gastroenterology Type of Appointment: Telehealth appointment. Reach Patient during MA Check: No, Left Message Was unable to reach patient before appointment time Notes for the provider: Notes for the nurse: documented in this encounter Plan of Treatment Upcoming Encounters Date Type Department Care Team (Late Contact Info) Description 04/15/2024 1:00 PM EST Office Visit Hematology/Oncology at [address] [phone] Lee Ann Jay MD [facility] DR HEMATOLOGY [place] [address] Leti Anderson APRN [facility] HEMATOLOGY [place] [address] documented as of this encounter Visit Diagnoses Not on filedocumented in this encounter Care Teams Rum Processing Operator Relationship Specialty Start Date End Date Julia Chatterjee MD [facility] [address] [place] [address] PCP - General 01/31/10 documented as of this encounter
--- OUTSIDE RECORDS SUMMARY | 2023-10-22 02:49 | XMS_ITS | Encounter Summary ---
Author Organization [facility] [place] [address] Care Team Providers Care Assistant Infant Teacher Name Role Phone Julia Chatterjee MD Primary Care Provider [phone] Encounter Details Date Type Department Care Team (Late st Contact Info) Description 09/15/2019 Telephone [place] [phone] Rosanne Recinos RN Social History Tobacco Use Types Packs/Day Years Used Date Smoking Tobacco: Never Smokeless Tobacco: Never Alcohol Use Standard Drinks/Week Comments Yes 1 (1 standard drink = 0.6 oz pur e alcohol) Sex and Gender Information Value Date Recorded Sex Assigned at Not on file Gender Identity Not on file Sexual Orientation Not on file documented as of this encounter Miscellaneous Notes * Telephone Encounter - Rosanne Recinos RN - 09/15/2019 4:32 PM EDT Infectious Disease/OPAT Program Progress Note OPAT: Order / Recommendation for Post Discharge IV Antibiotic Management ID Diagnosis: Liver Abscess s/p drain placement 09/02/19 Microorganisms being treated: Suspected E. coli, Strep constellatus. Confirmed Clostridium sp., Bacteroides fragilis, Peptostreptococcus sp., Actinomyces sp. Antibiotic Allergies: No known antibiotic allergies Antibiotic: Ceftriaxone 2 g IV q 24 hr Antibiotic: Metronidazole 500 mg PO q 8 hr Start date: 09/02/2019 Anticipated stop date: 09/30/2019 Labs: Q Saturday: CBC/Diff, CMP Last documented weight (kg): 62.6 kg Last documented height (cm): 154.9 cm Infectious Disease Attending: Briana King DO Received telephone call from patient who reports that there is less drainage, she is feeling goodand denies any fevers at this time. States that she finished her prednisone yesterday and is quite happy about that. Patient reports that she is doing well on the IV ABX; everything is going fine with the VNA nurseand the infusion vendor. F/u: Labs 09/27: Dr. Brandon STERLING, RN, ACM-RN documented in this encounter Plan of Treatment Upcoming Encounters Date Type Department Care Team (Late st Contact Info) Description 04/15/2024 1:00 PM EST Office Visit Hematology/Oncology at [address] [phone] Lee Ann Jay MD [facility] DR [place] [address] Leti Anderson APRN [facility] [place] [address] documented as of this encounter Visit Diagnoses Not on filedocumented in this encounter Care Teams Assistant Infant Teacher Relationship Specialty Start Date End Date Julia Chatterjee MD [facility] [address] [place] [address] PCP - General 01/31/10 documented as of this encounter
--- OUTSIDE RECORDS SUMMARY | 2023-10-22 02:49 | XMS_ITS | Encounter Summary ---
Author Organization [facility] Address [facility] [place] [address] Care Team Providers Care Jig Grinder Set Up Operator Name Role Phone Julia Chatterjee MD Primary Care Provider [phone] Reason for Visit * Reason Onset Date Comments Labs Only 09/25/2019 lab results and zarxio inj Encounter Details Date Type Department Care Team (Late st Contact Info) Description 09/25/2019 Telephone Hematology Oncology at [address] [phone] Billie Diaz, RN Labs Only (lab results and zarxio inj) Social History Tobacco Use Types Packs/Day Years [...] Telephone Encounter - Billie Diaz RN - 09/25/2019 11:12 AM EDT An had labs drawn this am and her ANC is 390. She will need her zarxio injection today. We have her scheduled for 1300 and An agrees. I will speak to her when she is here about an inj for earlynext week. Results for AN PARRY ( ) as of 09/25/2019 11:47 09/25/2019 00:00 WBC 2.63 Hemoglobin 12.5 Hematocrit 39.5 Platelets 226 Neutr Abs (ANC) 0.39 BUN 10 Creatinine 0.63 documented in this encounter Plan of Treatment Upcoming Encounters Date Type Department Care Team (Late st Contact Info) Description 04/15/2024 1:00 PM EST Office Visit Hematology/Oncology at [address] [phone] Lee Ann Jay MD [facility] [place] [address] An Anderson APRN [facility] [place] [address] documented as of this encounter Procedures Procedure Name Priority Date/Time Associated Diagnosis Comments CBC (WITH DIFF) Routine 09/25/2019 COMPREHENSIVE METABOLIC PANEL Routine 09/25/2019 documented in this encounter Results * Comprehensive metabolic panel (non-fasting) (09/25/2019) Blood Urea Nitrogen 10 Creatinine 0.63 Blood specimen (specimen) 09/25/2019 Lee Ann Jay MD CHEMISTRY ORDERA BLES * CBC (with Diff) (09/25/2019) White Blood Cell 2.63 Hemoglobin 12.5 Hematocrit 39.5 Platelet 226 ANC 0.39 Blood specimen (specimen) 09/25/2019 Lee Ann Jay MD HEMATOLOGY ORDER ASHLEY documented in this encounter Visit Diagnoses Not on filedocumented in this encounter Care Teams Jig Grinder Set Up Operator Relationship Specialty Start Date End Date Julia Chatterjee MD [address] [place] [address] PCP - General 01/31/10 documented as of this encounter
--- OUTSIDE RECORDS SUMMARY | 2023-10-22 02:49 | XMS_ITS | Encounter Summary ---
Author Organization [facility] Address [facility] [place] [address] Care Team Providers Care Physician General Internal Medicine Name Role Phone Julia Chatterjee MD Primary Care Provider [phone] Encounter Details Date Type Department Care Team (Late st Contact Info) Description 10/22/2019 11:15 AM EDT - 10/22/2019 12:15 PM EDT [place] [address] Yola Oliveros MD [facility] [place] [address] COLONOSCOPY FLEXIBLE, WITH BX (WRVU 3.56) Social [...] Sign Reading Time Taken Comments Blood Pressure 110/63 10/22/2019 12:10 PM EDT Pulse 72 10/22/2019 11:50 AM EDT Temperature 36.5 ??C (97.7 ??F) 10/22/2019 10:41 AM E DT Respiratory Rate 15 10/22/2019 12:10 PM EDT Oxygen Saturation 99% 10/22/2019 12:10 PM EDT Inhaled Oxygen Concentration - - Weight 62.6 kg (138 lb) 10/22/2019 10:41 AM EDT Height 160 cm (5' 3) 10/22/2019 10:41 AM EDT Body Mass Index 24.45 10/22/2019 10:41 AM EDT documented in this encounter Discharge Instructions * Attachments The following attachments cannot be sent through Care Everywhere. * Colonoscopy: Post-op (Yi) documented in this encounter Medications at Time of Discharge Medication Sig Dispensed Refills Start Date End Date Mesalamine (Canasa) 1,[address] 1 suppository rectally nightly. 30 suppository 3 10/22/2019 04/27/2020 hydrocortisone (Anusol-HC) [address] 1 suppository rectally 2 times daily. 14 suppository 1 10/20/2019 04/27/2020 L.acidophil/L.plant ar/Bifido 7 (UP4 PROBIOTICS ADULT ORAL) Take by mouth 3 times daily. 04/27/2020 documented as of this encounter H&P Notes * Yola Oliveros MD - 10/22/2019 10:59 AM EDT Gastroenterology and Hepatology Pre-Procedure History and Physical Exam Procedure: Colonoscopy: Indication: UC Patient Active Problem List Diagnosis Code ??? Leukopenia D72.819 ??? Ulcerative colitis K51.90 ??? 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 Large granular lymphocytic leukemia C91.Z0 EXAM: HEENT: Airway examined, oropharynx clear Mallampati Score: I (soft palate, uvula, fauces, tonsillar pillars visible) LUNGS: Clear to auscultation HEART: Regular [...] 1:00 PM EST Office Visit Hematology/Oncology at [address] [address] Lee Ann Jay MD [facility] [address] [place] [address] Leti Anderson APRN [facility] [address] [place] [address] documented as of this encounter Procedures Procedure Name Priority Date/Time Associated Diagnosis Comments SPECIMEN TO PATHOLOGY Routine 10/22/2019 11:52 AM EDT SPECIMEN TO PATHOLOGY Routine 10/22/2019 11:52 AM EDT SPECIMEN TO PATHOLOGY Routine 10/22/2019 11:52 AM EDT SPECIMEN TO PATHOLOGY Routine 10/22/2019 11:52 AM EDT SPECIMEN TO PATHOLOGY Routine 10/22/2019 11:52 AM EDT SURGICAL PATHOLOGY REPORT Routine 10/22/2019 11:15 AM EDT Colonoscopy, Biopsy ([id number]) 10/22/2019 11:01 AM EDT Ulcerative rectosigmoiditis with abscess Colonoscopy, IVCS, in 1-2 weeks for L sided colitis c/b hepatic abscess. Evaluate response to antibiotics and extent of colonic involvement COLONOSCOPY Routine 10/22/2019 9:49 AM EDT documented in this encounter Results * Specimen to Pathology (10/22/2019 11:52 AM EDT) AP Specimen 10/22/2019 11:5 2 AM EDT 10/22/2019 11:52 AM EDT Narrative [facility] - 10/22/2019 11:52 AM EDT Specimen requisition ordered. ??Separate Pathology report to follow L Inder Oliveros MD PATHOLOGY/CYTOLOGY O RDERABLES [facility] [place] [address] * Specimen to Pathology (10/22/2019 11:52 AM EDT) AP Specimen 10/22/2019 11:5 2 AM EDT 10/22/2019 11:52 AM EDT Narrative [facility] - 10/22/2019 11:52 AM EDT Specimen requisition ordered. ??Separate Pathology report to follow L Inder lOiveros MD PATHOLOGY/CYTOLOGY O OMI Performing Organization Address [facility] [place] [address] * Specimen to Pathology (10/22/2019 11:52 AM EDT) AP Specimen 10/22/2019 11:5 2 AM EDT 10/22/2019 11:52 AM EDT Narrative [facility] - 10/22/2019 11:52 AM EDT Specimen requisition ordered. ??Separate Pathology report to follow L Inder Oliveros MD PATHOLOGY/CYTOLOGY O OMI Performing Organization Address [facility] Co de Phone Number [facility] [place] [address] * Specimen to Pathology (10/22/2019 11:52 AM EDT) AP Specimen 10/22/2019 11:5 2 AM EDT 10/22/2019 11:52 AM EDT Narrative [facility] - 10/22/2019 11:52 AM EDT Specimen requisition ordered. ??Separate Pathology report to follow L Inder Oliveros MD PATHOLOGY/CYTOLOGY O OMI Performing Organization Address [facility] Co de Phone Number [facility] [place] [address] * Specimen to Pathology (10/22/2019 11:52 AM EDT) AP Specimen 10/22/2019 11:5 2 AM EDT 10/22/2019 11:52 AM EDT Narrative [facility] - 10/22/2019 11:52 AM EDT Specimen requisition ordered. ??Separate Pathology report to follow L Inder Oliveros MD PATHOLOGY/CYTOLOGY O OMI [facility] [place] [address] * Surgical Pathology Report (10/22/2019 11:15 AM EDT) Final Diagnosis [id number] ? Location: 4T; EA10; A The signing pathologist has (i) examined the relevant preparation(s) for the specimen(s) and (ii) rendered or confirmed the diagnosis(es). . ?Surgical Pathology DIAGNOSIS A - Right colon, biopsy: Colonic mucosa within normal limits. There is no evidence of dysplasia. B - Descending colon, biopsy: Colonic mucosa within normal limits. There is no evidence of dysplasia. C - Sigmoid colon, biopsy: Focal mildly active colitis with single crypt rupture reaction. There is no evidence of dysplasia. D - Sigmoid colon at 45cm, biopsy: Moderately active chronic colitis. There is no evidence of dysplasia. E - Rectum, biopsy: Severely active chronic colitis with ulceration. There is no evidence of dysplasia. Multiple levels examined. CR-PX Electronically signed by: ??Roney PONCE PhD, Christal Verified: ??10/30/2019 ?Pathologist Performed at: ??-[facility] Dept. of Pathology, [place], [place] ADDITIONAL STUDIES E - ??multiple levels examined. SPECIMEN(S) SUBMITTED A - non-targeted right colon bx, biopsy (1) B - descending colon non-targeted bx, biopsy (1) C - sigmoid colon non-targeted bx, biopsy (1) D - sigmoid @ 45cm directed bx, biopsy (1) E - directed rectal bx, biopsy (1) CLINICAL INFORMATION History of UC SPECIMEN PROCESSING A - Labeled/Fixativ e: Non-targeted right colon biopsy, formalin. Quantity/Size: Multiple, averaging 0.3 cm. Tissue Description: Soft, ford-pink tissues. Sections/Proces sing: Submitted en toto ??in 2 cassettes labeled A1-A2. B - Labeled/Fixativ e: Descending colon nontargeted, formalin. Quantity/Size: Four, averaging 0.4 cm. Tissue Description: Soft, ford-pink tissues. Sections/Proces sing: Submitted en toto ??in 1 cassette labeled B1. . SPECIMEN PROCESSING C - Labeled/Fixativ e: Sigmoid colon nontargeted biopsies, formalin. Quantity/Size: Six, averaging 0.3 cm. Tissue Description: Soft, ford-pink tissues. Sections/Proces sing: Submitted en toto ??in 1 cassette labeled C1. D - Labeled/Fixativ e: Sigmoid at 45 cm directed biopsy, formalin. Quantity/Size: Two, 0.3 and 0.5 cm. Tissue Description: Soft, ford-pink tissues. Sections/Proces sing: Submitted en toto ??in 1 cassette labeled D1. E - Labeled/Fixativ e: Directed rectal biopsy, formalin. Quantity/Size: Six, averaging 0.3 cm. Tissue Description: Soft, ford-pink tissues. Sections/Proces sing: Submitted en toto ??in 1 cassette labeled E1. ??ajw 10/30/2019 1:35 PM EDT [facility] GI Biopsy 10/22/2019 11:1 5 AM EDT 10/22/2019 11:15 AM EDT GI Biopsy 10/22/2019 11:1 5 AM EDT 10/22/2019 11:15 AM EDT GI Biopsy 10/22/2019 11:1 5 AM EDT 10/22/2019 11:15 AM EDT GI Biopsy 10/22/2019 11:1 5 AM EDT 10/22/2019 11:15 AM EDT GI Biopsy 10/22/2019 11:1 5 AM EDT 10/22/2019 11:15 AM EDT L Inder Oliveros MD PATHOLOGY/CYTOLOGY O RDERABLES [facility] [place] [address] * COLONOSCOPY (10/22/2019 9:49 AM EDT) COLONOSCOPY [facility] Endoscopy Procedure Date: 10/22/2019 9:49 AM ? Patient Name: Leti Parry ? Date of : 1950 ? Age: 68 ? Order #: [id number] ? Instrument Name: [id number] ? Procedure: ? Colonoscopy Indications: ? Follow-up of left-sided chronic ? ulcerative colitis Providers: ? Marija Oliveros MD, Hesham Larson ? Skyla Dobson, DAYANA, ? Power Vega Referring : ?Julia Chatterjee MD Medicines: ? Fentanyl 250 micrograms IV, Midazolam ? 4 mg IV Complications: ? No immediate complications. Procedure: ? Pre-Anesthesia Assessment: ? - See the other procedure note for ? documentation of the pre-procedure ? assessment. ? The procedure, indications, benefits, ? risks and alternatives were explained ? to the patient. Specifically ? discussed were potential ? complications including, but not ? limited to, bleeding, perforation, ? infection, missing a cancer, and ? adverse medication reactions. The ? patient was placed in the left ? lateral decubitus position, and a ? digital rectal exam was performed. ? The Colonoscope was inserted in the ? anus and under direct visualization, ? advanced to the terminal ileum. ? Careful inspection was made as the ? colonoscope was withdrawn. The ? colonoscopy was performed without ? difficulty. The patient tolerated the ? procedure well. The quality of the ? bowel preparation was evaluated using ? the BBPS ([place] Bowel Preparation ? Scale) with scores of: Right Colon = ? 3, Transverse Colon = 3 and Left ? Colon = 3 (entire mucosa seen well ? with no residual staining, small ? fragments of stool or opaque liquid). ? The total BBPS score equals 9. Scope ? withdrawal time was 30 minutes. ? Findings: ? The terminal ileum appeared normal, patulous ? appearing ileocecal valve. ? A localized area of circumferentially granular mucosa ? was found in the sigmoid colon at 45 cm from the ? anus. Sigmoid colon from 45 - 20 cm appeared normal. ? This was biopsied with a cold forceps for histology. ? A continuous circumferential area of granular, ? erythematous mucosa with superficial discrete ? ulcerations, some as large as 1.5 cm was present in ? the rectum. Extent of inflammation was from 20 cm to ? the anal verge and ulcerations were from 15 cm to the ? anal verge. Ulceration noted at the dentate line ? extending to the anal canal. There was a 3 mm nodule ? in the rectum that appeared inflammatory. Biopsies ? were taken with a cold forceps for histology. ? The exam was otherwise normal throughout the examined ? colon. Non targeted biopsies were taken from the ? right colon, decending colon, and normal appearing ? mucosa in the sigmoid colon. ? The perianal exam was normal on visual inspection, ? however JOSUE caused a significant degree of discomfort. ? Moderate Sedation: ? I was present during the intraservice time as ? documented by the sedation RN. Impression: ?- The examined portion of the ileum ? was normal. ? - Granularity in the sigmoid colon at ? 45 cm. Biopsied. ? - Nontargeted biopsies obtain from ? normal appeared right colon, ? descending colon, and area of sigmoid ? colon. ? - Granular, erythematous, ulcerated ? rectal mucosa. Biopsied. Recommendation: ?- Await pathology results. ? - Use Canasa 1000 mg suppository 1 ? per rectum QHS. ? - Return to GI clinic as previously ? scheduled. ? - Discharge patient to home. ? Procedure Code(s): ?? --- Professional --- ? 82706, Colonoscopy, flexible; with ? biopsy, single or multiple CPT copyright 2019 [employer]. All rights reserved. The codes documented in this report are preliminary and upon prescription eyeglass maker review may be revised to meet current compliance requirements. Attending Participation: ? I was present and participated during the entire ? procedure, including non-chaparro portions. ? L. Inder Oliveros MD 10/22/2019 12:16:16 PM Number of Addenda: 0 Note Initiated On: 10/22/2019 9:49 AM PROVATION 10/22/2019 9:49 AM EDT Julia Chatterjee MD GENERAL SURGICAL ORD ERABLES PROVATION documented in this encounter Visit Diagnoses Not on filedocumented in this encounter Administered Medications Inactive Administered Medications - up to 3 most recent administrations Medication Order MAR Action Action Date Dose Rate Site fentaNYL 50 mcg/mL multi-dose injection ONCE PRN, Starting on Lulu 10/22/19 at 1105, Until Lulu 10/22/19 at 1524, Intra-Operative (Intra-Procedure), Routine Given 10/22/2019 11:22 AM EDT 50 mcg Given 10/22/2019 11:17 AM EDT 50 mcg Given 10/22/2019 11:11 AM EDT 50 mcg lactated ringers infusion 100 mL/hr, Intravenous, CONTINUOUS, Starting on Lulu 10/22/19 at 1100, Until Lulu 10/22/19 at 1247, Endoscopy (Day of Procedure) New Bag 10/22/2019 10:56 AM EDT 100 mL/hr 100 mL/hr lidocaine (XYLOCAINE) 2 % jelly ONCE PRN, Starting on Lulu 10/22/19 at 1123, Until Lulu 10/22/19 at 1524, Intra-Operative (Intra-Procedure) Given 10/22/2019 11:23 AM EDT 1 Bottle midazolam (PF) (VERSED) multi-dose injection ONCE PRN, Starting on Lulu 10/22/19 at 1104, Until Lulu 10/22/19 at 1524, Intra-Operative (Intra-Procedure), Routine Given 10/22/2019 11:16 AM EDT 1 mg Given 10/22/2019 11:11 AM EDT 1 mg Given 10/22/2019 11:08 AM EDT 1 mg documented in this encounter Active and Recently Administered Medications Times are shown in EDT. Continuous Medication Order 10/20/2019 10/21/2019 10/22/2019 lactated ringers infusion (CANCELED) 100 mL/hr, Intravenous, CONTINUOUS, Starting on Lulu 10/22/19 at 1100, Until Lulu 10/22/19 at 1247, Endoscopy (Day of Procedure) 1056 (New Bag - Prov ider: Renetta Ventura RN) PRN Medication Order 10/20/2019 10/21/2019 10/22/2019 fentaNYL 50 mcg/mL multi-dose injection (CANCELED) ONCE PRN, Starting on Lulu 10/22/19 at 1105, Until Lulu 10/22/19 at 1524, Intra-Operative (Intra-Procedure), Routine 1105 (Given - Provid er: Skyla Lutz RN)1108 (Given - Provider: Skyla Lutz RN)1111 (Given - Provider: Skyla Lutz RN)1117 (Given - Provider: Skyla Lutz RN)1122 (Given - Provider: Skyla Lutz RN) lidocaine (XYLOCAINE) 2 % jelly (CANCELED) ONCE PRN, Starting on Lulu 10/22/19 at 1123, Until Lulu 10/22/19 at 1524, Intra-Operative (Intra-Procedure) 1123 (Given - Provid er: oYla Oliveros MD) midazolam (PF) (VERSED) multi-dose injection (CANCELED) ONCE PRN, Starting on Lulu 10/22/19 at 1104, Until Lulu 10/22/19 at 1524, Intra-Operative (Intra-Procedure), Routine 1104 (Given - Provid er: Skyla Lutz RN)1108 (Given - Provider: Skyla Lutz RN)1111 (Given - Provider: Skyla A [place], RN)1116 (Given - Provider: Skyla Lutz RN) documented in this encounter Care Teams Physician General Internal Medicine Relationship Specialty Start Date End Date Julia Chatterjee MD [facility] KINA FELIZ [facility] [address] [place] [address] PCP - General 01/31/10 documented as of this encounter
--- OUTSIDE RECORDS SUMMARY | 2023-10-22 02:49 | XMS_ITS | Encounter Summary ---
Author Organization [facility] Address [facility] [place] [address] Care Team Providers Care Asw/Asuw Tactical Air Controller Name Role Phone Julia Chatterjee MD Primary Care Provider [phone] Reason for Visit * Reason Comments Injections GCSF Encounter Details Date Type Department Care Team (Late st Contact Info) Description 10/21/2019 10:00 AM EDT Infusion Hematology Oncology at [address] [phone] Large granular lymphocytic leukemia Social [...] Sign Reading Time Taken Comments Blood Pressure 105/66 10/21/2019 10:05 AM EDT Pulse 63 10/21/2019 10:05 AM EDT Temperature 36.7 ??C (98.1 ??F) 10/21/2019 10:05 AM E DT Respiratory Rate 18 10/21/2019 10:05 AM EDT Oxygen Saturation 98% 10/21/2019 10:05 AM EDT Inhaled Oxygen Concentration - - Weight 63 kg (138 lb 14.4 oz) 10/21/2019 10:05 A M EDT Height 160 cm (5' 3) 10/21/2019 10:05 AM EDT Body Mass Index 24.61 10/21/2019 10:05 AM EDT documented in this encounter Progress Notes * Kadie Kaye RN - 10/21/2019 10:00 AM EDT Infusion Note Diagnosis: Leukopenia Treatment: Zarxio Injection Zarxio 480 mcg injected in abdominal tissue SQ. Patient aware to call clinic with any questions or concerns. Plan: Return to clinic as scheduled. 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, without mention of having achieved remission documented in this encounter Administered Medications Inactive Administered Medications - up to 3 most recent administrations Medication Order MAR Action Action Date Dose Rate Site filgrastim-sndz (ZARXIO) injection 480 mcg 480 mcg, Subcutaneous, ONCE, 1 dose, On Sat10/21/19 at 1045, Bring to room temperature 30 minutes before administration, Routine Given 10/21/2019 10:24 AM EDT 480 mcg Left Lower Quadrant documented in this encounter Care Teams Asw/Asuw Tactical Air Controller Relationship Specialty Start Date End Date Julia Chatterjee MD [facility] [address] [place] [address] PCP - General 01/31/10 documented as of this encounter
--- OUTSIDE RECORDS SUMMARY | 2023-10-22 02:49 | XMS_ITS | Encounter Summary ---
Author Organization [facility] Address [facility] [place] [address] Care Team Providers Care Tobacco Packing Machine Operator Name Role Phone Julia Chatterjee MD Primary Care Provider [phone] Encounter Details Date Type Department Care Team (Late Contact Info) Description 09/21/2019 Telephone Hematology [place] [phone] Lee Ann Jay MD [facility] DR HEMATOLOGY [place] [address] Social History Tobacco Use Types Packs/Day Years [...] encounter Miscellaneous Notes * Telephone Encounter - Lee Ann Jay MD - 09/21/2019 4:15 PM EDT Called by ID and they request neupogen to help w/ neutropenia during treatment of hepatic absess. I will give her GCSF 480 mcg SQ on 09/21, 09/24 and Wednesday 09/27. MYCHAL Gusman fellow will let pt know that we will arrange in [facility] documented in this encounter Plan of Treatment Upcoming Encounters Date Type Department Care Team (Late st Contact Info) Description 04/15/2024 1:00 PM EST Office Visit Hematology/Oncology at [address] [phone] Lee Ann Jay MD [facility] DR HEMATOLOGY [place] [address] Leti Anderson APRN [facility] HEMATOLOGY [place] [address] documented as of this encounter Visit Diagnoses Not on filedocumented in this encounter Care Teams Tobacco Packing Machine Operator Relationship Specialty Start Date End Date Julia Chatterjee MD [facility] [address] [place] [address] PCP - General 01/31/10 documented as of this encounter
--- OUTSIDE RECORDS SUMMARY | 2023-10-22 02:49 | XMS_ITS | Encounter Summary ---
Author Organization [facility] Address [facility] [place] [address] Care Team Providers Care Marketing Services Vice President Name Role Phone Julia Chatterjee MD Primary Care Provider [phone] Encounter Details Date Type Department Care Team (Late st Contact Info) Description 10/14/2019 9:30 AM EDT Office Visit Hematology/Oncology at [address] [phone] Lee Ann Jay MD [facility] DR HEMATOLOGY [place] [address] Large granular lymphocytic leukemia Social History Tobacco [...] Sign Reading Time Taken Comments Blood Pressure 106/64 10/14/2019 9:42 AM EDT Pulse 63 10/14/2019 9:42 AM EDT Temperature 36.7 ??C (98.1 ??F) 10/14/2019 9:42 AM ED T Respiratory Rate 16 10/14/2019 9:42 AM EDT Oxygen Saturation 100% 10/14/2019 9:42 AM EDT Inhaled Oxygen Concentration - - Weight 64.4 kg (142 lb) 10/14/2019 9:42 AM EDT Height 160 cm (5' 2.99) 10/14/2019 9:42 AM EDT Body Mass Index 25.16 10/14/2019 9:42 AM EDT documented in this encounter Progress Notes * Lee Ann Jay MD - 10/14/2019 9:30 AM EDT Images from the original note were not [...] GCSF. ??? Hepatic abscess ??? Ulcerative colitis Diagnosed around 2011. Worked with special needs librarian with resolution of symptoms food based supplements ??? Leukopenia WBC in 2-3 range with [...] flow ) are being pursued at the [facility]. Should ??cytopenias persist , it may [...] of Present Illness: Ms. Parry is a 68 y.o. with pmhx of ? Ulcerative colitis- diet controlled. She states she was given this diagnosis during a colonoscopy 5 years ago. She states she is to get repeat colonoscopy this year. She states she has no UC symptoms. She states she has high gut bacteria burden- proteus mirabilis and diet changes have helped this. Feels well, good energy Her DINO was positive in Oct 2016. Seen in f/u to intestinal infection with presumed associated hepatic abcess with drain and for which she took IV ATB per ID at [facility]. We supported her with GCSF as well. She states that she has talked to her sisters and their counts are on the low end of normal as well. Review of Systems: Constitutional: No fevers/chills. Denies [...] to Visit Medication Sig Dispense Refill ??? L.acidophil/L.plantar/Bifido 7 (UP4 PROBIOTICS ADULT ORAL) Take by mouth 3 times daily. ??? [DISCONTINUED] pantoprazole EC (Protonix) 20 mg Tablet, Delayed Release (E.C.) Take 20 mg by mouth daily. ??? [DISCONTINUED] predniSONE (Deltasone) 10 mg Tablet Take 30 mg by mouth daily. Prednisone taper every week decreased 10 mg ??? [DISCONTINUED] ERGOCALCIFEROL, VITAMIN D2, (VITAMIN D ORAL) (Patient not taking: No sig reported) No current facility-administered medications on file prior to visit. Allergies: Allergies Allergen Reactions ??? Benzalkonium Chloride Family History: Father- 87, healthy Mother- 83, healthy 4 brothers and 2 sisters all healthy; she is told that her sisters also have low white counts. Social History: Lives in [facility]. . 1 son 38 years old- healthy. 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 Likes to bike in [place] w/ her . Social History Substance Use Topics ??? Smoking status: Never Smoker ??? Smokeless tobacco: None ??? Alcohol use 1 shot of tequila few times a week PHYSICAL EXAM BP 106/64 (Patient Position: Sitting) Pulse 63 Temp 36.7 ??C (98.1 ??F) (Temporal) Resp 16 Ht 160 cm (5' 2.99) Wt 64.4 kg (142 lb) SpO2 100% BMI 25.16 kg/m?? Body surface area is 1.69 meters squared. GENERAL: Leti Parry appears well [...] flow ) are being pursued at the [facility]. Should ??cytopenias persist , it may [...] receptor gene rearrangement detected. Radiology: US at [facility] 11/2016. Liver 14.5 cm. Spleen 8cm. Assessment and Recommendations: 68 y.o. Healthy female who has been referred to us for leukopenia. She has had leukopenia since 2006 with normal hemoglobin and platelet. She has no symptoms- no increased frequency of infections. 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 She has been working with a special needs librarian who started her on selenium and zinc and about a dozen other supplements. Counts are a bit higher so we will see. Customer Contact Representative has been helping her with bowel issues. These are better w/ diet adjustments. Diet changes have helped her UC and GI symptoms. Of note, she is on multiple naturopathic medications through her doctor of pharmacy - mostly to help w/ herGI tract. [...] variant of LGL. Stat 3 testing was subsequentlynegative. 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 LGL is often associated with autoimmune disorders. She does not have any known autoimmune disorder although she is DINO positive. In her case she is asymptomatic and has not required any antibiotics for infections, so despite the low ANC, treatment is not iindicated at this time. If she were to develop serious infections or require several courses of antibiotics then we would start weekly oral methotrexate which controls the disease nicely. In August 2019, Leti was admitted with abdominal infection. It was thought to initially be some typeof colitis, but ultimately she developed a hepatic abscess requiring drain and prolonged IV antibiotics. She has now recovered. G-CSF was used during that time intermittently for support of her whitecount, very effectively. This is been her first major infection. If she continues to have frequent infections we would need to consider treating LGL with weekly methotrexate. However in general she has lived for what we believe is years, with a low white count without major infections. At this timeI do not plan on changing her treatment plan. We will support her with G-CSF as needed She responds beautifully to GCSF. Needs GCSF before procedures or surgeries. Plan: ?? GCSF 480mcg the day before 11/05/19 colonoscopy at [facility] ?? rtc in 6 mos with cbc, cmp I discussed all of the above with the patient and all of her questions were answered. Support and counseling given as appropriate. This note was written or modified using [employer] voice recognition software. The final note was screened for mistakes. Please excuse any remaining errors. 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
--- OUTSIDE RECORDS SUMMARY | 2023-10-22 02:49 | XMS_ITS | Encounter Summary ---
Author Organization [facility] Address [facility] [place] [address] Care Team Providers Care Telegraphic Typewriter Repairer Name Role Phone Julia Chatterjee MD Primary Care Provider [phone] Reason for Visit * Reason Onset Date Comments Questions 09/23/2019 Encounter Details Date Type Department Care Team (Late st Contact Info) Description 09/23/2019 Telephone Hematology/Oncology at [address] [phone] Vicky Madrigal, RN Questions Social History Tobacco Use Types Packs/Day Years [...] Telephone Encounter - Vicky Madrigal RN - 09/23/2019 10:53 AM EDT Called and spoke with Leti Parry regarding her Neupogen injections. She requests we check CBC first rather than getting Neupogen if she does not require it. She can have CBC checked and if ANC >1000 will hold off on Neupogen per Dr Jay. She reports she can have Home Health draw CBC 09/24 morning (which goes to [facility]) and will review results and schedule Neupogen appt if needed. documented in this encounter Plan of Treatment Upcoming Encounters Date Type Department Care Team (Late st Contact Info) Description 04/15/2024 1:00 PM EST Office Visit Hematology/Oncology at [address] [phone] Lee Ann Jay MD [facility] DR [place] [address] Leti Anderson APRN [facility] [place] [address] documented as of this encounter Visit Diagnoses Not on filedocumented in this encounter Care Teams Telegraphic Typewriter Repairer Relationship Specialty Start Date End Date Julia Chatterjee MD [address] [place] [address] PCP - General 01/31/10 documented as of this encounter
--- OUTSIDE RECORDS SUMMARY | 2023-10-22 02:49 | XMS_ITS | Encounter Summary ---
Author Organization [facility] Address [facility] [place] [address] Care Team Providers Care Apple Solutions Consultant Name Role Phone Julia Chatterjee MD Primary Care Provider [phone] Encounter Details Date Type Department Care Team (Late st Contact Info) Description 09/09/2019 Telephone [place] [address] Jessica Johnson Social History Tobacco Use Types Packs/Day Years [...] encounter Miscellaneous Notes * Telephone Encounter - Jessica Johnson - 09/09/2019 8:02 AM EDT Leti Parry [id number] Diagnosis/Indication: [place] 1. Have you ever had a/an Colonoscopy before? Yes: Date 08/13/19 If yes, did you have any problems with the procedure? No What type of sedation was used: Other: Unknown 2. Do you take any Blood Thinners? No 3. Do you have a Pacemaker or Defibrillator device? No 4. Are you a diabetic? No 5. Do you have any Allergies to Eggs, Latex or Medications? Yes- See EDH 6. Do you take any Oral Iron Supplements (Including multi-vitamins)? No 7. Do you have a history of three or more abdominal surgeries? No 8. Have you had a problem with sedation or anesthesia? No 9. Do you have a c-pap machine or oxygen tank? Neither 10. Do you take prescription narcotic pain medications, including suboxone or methodone? No 11. Do you have a preference regarding the gender of your provider? No Preference 12. Is there any other information you would like to give us to aid in scheduling? No 13. Say to patient: You must have a responsible constitution party who will drive you to your procedure, stay [place] for the entire duration of your procedure, and drive you home from your procedure? *Please Verify the height and weight, and adjust if height and/or weight have changed* Estimated body mass index is 26.07 kg/m?? as calculated from the following: Height as of 10/23/17: 154.9 cm (5' 1). Weight as of 09/01/19: 62.6 kg (138 lb). Age:68 y.o. documented in this encounter Plan of Treatment Upcoming Encounters Date Type Department Care Team (Late st Contact Info) Description 04/15/2024 1:00 PM EST Office Visit Hematology/Oncology at [address] [phone] Lee Ann Jay MD [facility] DR HEMATOLOGY [place] [address] Leti Anderson APRN [facility] HEMATOLOGY [place] [address] documented as of this encounter Visit Diagnoses Not on filedocumented in this encounter Care Teams Apple Solutions Consultant Relationship Specialty Start Date End Date Julia Chatterjee MD [address] [place], [place] [address] PCP - General 01/31/10 documented as of this encounter
--- OUTSIDE RECORDS SUMMARY | 2023-10-22 02:49 | XMS_ITS | Encounter Summary ---
Author Organization [facility] Address [facility] [place] [address] Care Team Providers Care Data Quality Consultant Name Role Phone Julia Chatterjee MD Primary Care Provider [phone] Encounter Details Date Type Department Care Team (Late Contact Info) Description 10/19/2019 Telephone [place] [phone] Juancarlos Marin Social History Tobacco Use Types Packs/Day Years [...] 1:00 PM EST Office Visit Hematology/Oncology at [address] [phone] Lee Ann Jay MD [facility] HEMATOLOGY [place] [address] Leti Anderson, SOFTWARE SOLUTIONS ARCHITECT [facility] HEMATOLOGY [place] [address] documented as of this encounter Visit Diagnoses Not on filedocumented in this encounter Care Teams Data Quality Consultant Relationship Specialty Start Date End Date Julia Chatterjee MD [address] [place] [address] PCP - General 01/31/10 documented as of this encounter
--- OUTSIDE RECORDS SUMMARY | 2023-10-22 02:49 | XMS_ITS | Encounter Summary ---
Author Organization [facility] [place] [address] Care Team Providers Care Clinical Marketing Manager Name Role Phone Julia Chatterjee MD Primary Care Provider [phone] Reason for Visit * Reason Comments Injections Zarxio Encounter Details Date Type Department Care Team (Late Contact Info) Description 09/25/2019 1:00 PM EDT Infusion Hematology Oncology at [address] [phone] Neutropenia, unspecified type Social History Tobacco Use Types [...] as of this encounter Progress Notes * Radha German RN - 09/25/2019 1:00 PM EDT Infusion Note Diagnosis: Leukopenia Treatment: Zarxio Injection Zarxio 480 mcg injected in abdominal tissue SQ. Patient aware to call clinic with any questions or concerns. Plan: Return to clinic as scheduled. documented in this encounter Plan of Treatment Upcoming Encounters Date Type Department Care Team (Late Contact Info) Description 04/15/2024 1:00 PM EST Office Visit Hematology/Oncology at [address] [phone] Lee Ann Jay MD [facility] [address] [place] [address] Leti Anderson APRN [facility] [place] [address] documented as of this encounter Visit Diagnoses Diagnosis Neutropenia, unspecified type documented in this encounter Administered Medications Inactive Administered Medications - up to 3 most recent administrations Medication Order MAR Action Action Date Dose Rate Site filgrastim-sndz (ZARXIO) injection 480 mcg 480 mcg, Subcutaneous, ONCE, 1 dose, On Sat09/25/19 at 1230, Bring to room temperature 30 minutes before administration, Routine Given 09/25/2019 1:13 PM EDT 480 mcg Abdominal Tissue documented in this encounter Care Teams Clinical Marketing Manager Relationship Specialty Start Date End Date Julia Chatterjee MD [facility] [address] [place] [address] PCP - General 01/31/10 documented as of this encounter
--- OUTSIDE RECORDS SUMMARY | 2023-10-22 02:49 | XMS_ITS | Encounter Summary ---
Author Organization [facility] [place] [address] Care Team Providers Care Bilingual [employer] Teacher Name Role Phone Julia Chatterjee MD Primary Care Provider [phone] Encounter Details Date Type Department Care Team (Late Contact Info) Description 09/21/2019 Orders Only [place]ology [place] [phone] Lee Ann Jay MD [facility] [place] [address] Social History Tobacco Use Types Packs/Day Years [...] 1:00 PM EST Office Visit Hematology/Oncology at [address] [phone] Lee Ann Jay MD [facility] [place] [address] Leti Anderson, JOURNEYMAN WELDER [facility] [place] [address] documented as of this encounter Visit Diagnoses Not on filedocumented in this encounter Care Teams [employer]ilingual [employer] Teacher Relationship Specialty Start Date End Date Julia Chatterjee MD [facility] [address] [facility] [address] [place] [address] PCP - General 01/31/10 documented as of this encounter
--- OUTSIDE RECORDS SUMMARY | 2023-10-22 02:49 | XMS_ITS | Encounter Summary ---
Author Organization [facility] Address [facility] [place] [address] Care Team Providers Care Smt Operator Name Role Phone Julia Chatterjee MD Primary Care Provider [phone] Encounter Details Date Type Department Care Team (Late st Contact Info) Description 10/16/2019 Tele[place] [phone] Bertha Nuñez RN Social History Tobacco Use Types Packs/Day [...] encounter Miscellaneous Notes * Telephone Encounter - Bryant Walker RN - 10/20/2019 9:29 AM EDT Spoke to Leti. Per Dr. Oliveros: warm sitz baths till then. ??If she could tolerate it, could try hydrocortisone suppository, but maybe won't tolerate based on your msg She will try both of these suggestions. Also note colonoscopy has been moved up to . * Telephone Encounter - Bryant Walker RN - 10/19/2019 11:[address] Oliveros: Okay to follow symptoms for now. ??Call back for continued diarrhea, blood, fevers. ??Otherwise, colo 11/04 fine. Leti is still having a lot of rectal pain. Pain is so bad all she can do is lie down. Tylenol was not helpful. Denies diarrhea. Some rectal bleeding, but scant and only on the paper when she wipes. Afebrile Scared to eat because bowel movements are so painful. Wonder is procedure can be moved up. * Telephone Encounter - Bertha Nuñez RN - 10/16/2019 3:25 PM EDT TC from pt. Spoke with pt. Pt's temp has resolved since this morning. Pt had 4-5 bowel movements yesterday that were formed and soft, brown in color. Pt said that she feels better this afternoon now. Pt has had 2 bowel movements today. Soft and formed with a little bit of blood on the outside of the stool. Pt is unsure if she has hemorrhoids, 1/4 tsp very little amount of blood, one time. Pt started Pilates this week and believes this is more rejuvenating her rather than exhausting her. Pt said she also had an excessive amount of coffee yesterday; 1 1/2 cups in the morning and 2 cups mid-afternoon. Pt usually has 1 1/2 cups coffee only in the morning. Pt currently DENIES: fever, black, bloody, tarry stool, severe abdominal pain, n/v, cough, SOB. Pt has Colonoscopy the end of October but is wondering if she could have her Colonoscopy scheduled sooner. I told pt that I would forward our conversation to Dr. Oliveros to review and advise. If pt's symptoms worsen, she needs to call the GI on doctor image consultant to discuss. If any symptoms which pt denied, begin, pt is to go to the ER. Pt agrees with plan and verbalizes understanding. * Telephone Encounter - Bertha Nuñez RN - 10/16/2019 2:28 PM EDT TC from pt who leaves on IBD Nurse Triage phone line. Pt explains that since yesterday she has had an increase in bowel movements and fatigue. Pt also experienced an elevated temperature of 99.3. Called pt and left message requesting that pt return call to office. Msg left on pt identified voice mail. documented in this encounter Plan of Treatment Upcoming Encounters Date Type Department Care Team (Late st Contact Info) Description 04/15/2024 1:00 PM EST Office Visit Hematology/Oncology at [address] [phone] Lee Ann Jay MD [facility] DR HEMATOLOGY [place] [address] Leti Anderson APRN [facility] DR HEMATOLOGY [place] [address] documented as of this encounter Visit Diagnoses Not on filedocumented in this encounter Care Teams Smt Operator Relationship Specialty Start Date End Date Julia Chatterjee MD [facility] [address] [place] [address] PCP - General 01/31/10 documented as of this encounter
--- OUTSIDE RECORDS SUMMARY | 2023-10-22 02:49 | XMS_ITS | Encounter Summary ---
Author Organization [facility] Xavi joanayah [place] [id number] Care Team Providers Care Industrial Analyst Name Role Phone Julia Chatterjee MD Primary Care Provider [phone] Reason for Visit * Consultation (Routine) - Closed Specialty Diagnoses / Procedures Referred By Contact Referred To Contact Infectious Diseases Diagnoses Hepatic abscess Bacteroides fragilis Infection due to Peptostreptococcus species Actinomyces infection Briana King [facility] [place] [address] HeyburnBriana wilburn [facility] [place] [address] Referral ID Status Reason Start Date Expiration Date V isits Requested Visits Authorized [id number] Closed Assume Subset of Care 09/08/2019 09/07/2020 1 1 Encounter Details Date Type Department Care Team (Late st Contact Info) Description 09/28/2019 11:00 AM EDT Office [place] [address] Brandon Eddy MD [facility] INFECTIOUS DISEASE [place] [id number] long term care phlebotomist current use of antibiotics; Medication management; Liver abscess; Bacteremia; Polymicrobial bacterial infection Social History Tobacco Use Types Packs/Day Years [...] Sign Reading Time Taken Comments Blood Pressure 109/67 09/28/2019 10:55 AM EDT Pulse 62 09/28/2019 10:55 AM EDT Temperature 36.6 ??C (97.8 ??F) 09/28/2019 10:55 AM E DT Respiratory Rate - - Oxygen Saturation 99% 09/28/2019 10:55 AM EDT Inhaled Oxygen Concentration - - Weight 62.6 kg (138 lb) 09/28/2019 10:55 AM EDT Height 160 cm (5' 3) 09/28/2019 10:55 AM EDT Body Mass Index 24.45 09/28/2019 10:55 AM EDT documented in this encounter Progress Notes * Brandon Eddy MD - 09/28/2019 11:00 AM EDT Infectious Diseases Follow-Up Note HPI: Ms. Parry is a 68y/o F with a history of large granular lymphocytic leukemia, chronic neutropenia, and ulcerative colitis who was admitted to [facility] from 08/12/19-08/17/19 with E. coli and Streptococcus constellatus bacteremia in the setting of colitis (rectosigmoid thickening on CT). A TTE was negative, the E. coli was FQ susceptible, and the Streptococcus constellatus was thought to be a contaminant. She was transitioned to ciprofloxacin monotherapy (with no anaerobic spectrum). She was also treated with a steroid taper for her ulcerative colitis flare. She was then readmitted to [facility] from 09/01/19 to 09/07/19 with a 3.5cm liver abscess in the right hepatic lobe that was drained by IR on 09/02/19 with purulence encountered. The cultures grew Clostridium species, Bacteroides fragilis group, Peptostreptococcus, and Actinomyces species. She was started on ceftriaxone 2gm IV Daily plus metronidazole 500mg PO TID with a plan for a 4 week course (08/31/19-09/30/19). No CRP was obtained at the start of therapy. She had an IR drain check today, and the drainage catheter was removed after the drain injection showed minimal residual hepatic abscess cavity. When she was asked about drain output, she reported that it was next to nothing for weeks. In clinic today, she denies any fever, chills, or drenching sweats. She reports that she has never had any abdominal pain. Her appetite is okay, except for a metallic taste (likely from the metronidazole). She has had intermittent fatigue as well, but she attributes this to her Neupogen shots. She got a Neupogen shot a few days ago for neutropenia. She is scheduled for a follow-up CBC tomorrow. She otherwise denies any nausea, vomiting, abdominal pain, or diarrhea on the ceftriaxone. She reports some pruritis on her abdomen but no rash. ROS: Otherwise negative, except as noted in the HPI. I have reviewed the PMHx, Medications, Allergies, and SHx/FHx in the EMR. Her steroid taper has ended with resolved colitis. She is scheduled for a colonoscopy at the end of October 2019. Physical Exam: Most Recent Vitals: 09/28/19 1055 BP: 109/67 Pulse: 62 Temp: 36.6 ??C (97.8 ??F) SpO2: 99% Gen - A&Ox3, NAD, non-septic appearing. Abd - No RUQ TTP or HSM. Back - Drain site without erythema, TTP, or warmth. Labs (09/25/19): WBC 2.63 (ANC 390), Hgb 12.5, Plts 226 No CRP Na 138, K 4.4, Cl 100, CO2 29.8, BUN 10, Cr 0.63, Glu 87 Albumin 3.2 AST 23, ALT 28, Alk Phos 72, TBili 0.2 Assessment: 68y/o F with a history of large granular lymphocytic leukemia, chronic neutropenia, andulcerative colitis who developed E. coli and Streptococcus constellatus bacteremia in the setting of colitis that was then further complicated by a 3.5cm liver abscess in the right hepatic lobe that was drained by IR on 09/02/19 with purulence encountered. The cultures grew Clostridium species, Bacteroides fragilis group, Peptostreptococcus, and Actinomyces species. She is now near completion of a4 week course of ceftriaxone 2gm IV Daily plus metronidazole 500mg PO TID, with no evidence of persistent infection on history or exam. In addition, her drainage catheter was removed after the drain injection showed minimal residual hepatic abscess cavity. Plan: 1. I have instructed her to STOP ceftriaxone and metronidazole today, and her PICC line was pulled in clinic. 2. Ms. Parry does not need to schedule follow-up in ID clinic at this time, but I am always happy to see her back with any concerns about a recurrent infection. Brandon Eddy MD documented in this encounter Plan of Treatment Upcoming Encounters Date Type Department Care Team (Late st Contact Info) Description 04/15/2024 1:00 PM EST Office Visit Hematology/Oncology at [address] [phone] Lee Ann Jay MD [facility] DR HEMATOLOGY [place] [address] Leti Anderson APRN [facility] HEMATOLOGY [place] [address] documented as of this encounter Visit Diagnoses Diagnosis senior care current use of antibiotics Encounter for long-term (current) use of antibiotics Medication management Encounter for long-term (current) use of other medications Liver abscess Abscess of liver Bacteremia Polymicrobial bacterial infection Infection due to other specified bacteria in conditions classified elsewhere and of unspecified site documented in this encounter Care Teams Industrial Analyst Relationship Specialty Start Date End Date Julia Chatterjee MD [facility] [address] [place] [address] PCP - General 01/31/10 documented as of this encounter
--- OUTSIDE RECORDS SUMMARY | 2023-10-22 02:49 | XMS_ITS | Encounter Summary ---
Author Organization [facility] [place] [address] Care Team Providers Care Metal Template Maker Name Role Phone Julia Chatterjee MD Primary Care Provider [phone] Encounter Details Date Type Department Care Team (Late st Contact Info) Description 09/08/2019 Notes Only Infectious Disease at [facility] [place] [phone] Rosanne Recinos RN Social History Tobacco Use [...] as of this encounter Progress Notes * Rosanne Recinos RN - 09/08/2019 3:04 PM EDT Infectious Disease OPAT Program Faxed to [facility] ([facility] on 09/08/19 at 1354 Fax confirmation on 09/08/19 at 1409 Spoke with Mavis at [facility]. Documents faxed: Information on care & maintenance and removal of Secur A Cath securement device including company contact and on-line tutorial information. ASHER Abad, RN, ACM-RN OPAT Program documented in this encounter Plan of Treatment Upcoming Encounters Date Type Department Care Team (Late st Contact Info) Description 04/15/2024 1:00 PM EST Office Visit Hematology/Oncology at [address] [phone] Lee Ann Jay MD [facility] DR HEMATOLOGY [place] [address] Leti Anderson APRN [facility] HEMATOLOGY [place] [address] documented as of this encounter Visit Diagnoses Not on filedocumented in this encounter Care Teams Metal Template Maker Relationship Specialty Start Date End Date Julia Chatterjee MD [facility] [address] [place] [address] PCP - General 01/31/10 documented as of this encounter
--- OUTSIDE RECORDS SUMMARY | 2023-10-22 02:49 | XMS_ITS | Encounter Summary ---
Author Organization [facility] Address [facility] [place] [address] Care Team Providers Care Senior Assistant Manager Name Role Phone Julia Chatterjee MD Primary Care Provider [phone] Encounter Details Date Type Department Care Team (Late Contact Info) Description 10/05/2019 Orders Only Hematology/Oncology at [address] [phone] Lee Ann Jay MD [facility] [place] [address] Neutropenia, unspecified type Social History Tobacco Use [...] 1:00 PM EST Office Visit Hematology/Oncology at [address] [phone] Lee Ann [place] MD [facility] HEMATOLOGY [place] [address] Leti Anderson, CLINICAL GENETICIST [facility] [place] [address] documented as of this encounter Visit Diagnoses Diagnosis Neutropenia, unspecified type documented in this encounter Care Teams Senior Assistant Manager Relationship Specialty Start Date End Date Julia Chatterjee MD [address] [facility] 1 [place] [address] PCP - General 01/31/10 documented as of this encounter
--- OUTSIDE RECORDS SUMMARY | 2023-10-22 02:49 | XMS_ITS | Encounter Summary ---
Author Organization [facility] [place] [address] Care Team Providers Care Party Planner Name Role Phone Julia Chatterjee MD Primary Care Provider Encounter Details Date Type Department Care Team (Late Contact Info) Description 09/21/2019 Orders Only Hematology [place] [address] Lee Ann [place] MD [facility] [place] [address] Social History Tobacco Use Types Packs/Day Years [...] PM EST Office Visit Hematology/Oncology at [address] [phone] Lee Ann [place] MD [facility] [place] [address] Leti Anderson, EDUCATION PROGRAM COORDINATOR [facility] [place] [address] documented as of this encounter Visit Diagnoses Not on filedocumented in this encounter Care Teams Party Planner Relationship Specialty Start Date End Date Julia Chatterjee MD [facility] [address] [facility] 1 [place] [address] PCP - General 01/31/10 documented as of this encounter
--- OUTSIDE RECORDS SUMMARY | 2023-10-22 02:49 | XMS_ITS | Encounter Summary ---
Author Organization [facility] Address [facility] [place] [address] Care Team Providers Care Rags Laborer Name Role Phone Julia Chatterjee MD Primary Care Provider [phone] Reason for Visit * Reason Onset Date Comments Medication Refill 10/20/2019 Encounter Details Date Type Department Care Team ([facility] Contact Info) Description 10/20/2019 Refill [place] [address] Yola Oliveros MD [facility] [place] [place] [address] Social History Tobacco Use Types Packs/Day Years [...] 1:00 PM EST Office Visit Hematology/Oncology at [address] [phone] Lee Ann [place] MD [facility] [address] [place] [address] Leti Anderson, MOLD SHOP SUPERVISOR [facility] [place] [address] documented as of this encounter Visit Diagnoses Not on filedocumented in this encounter Care Teams Rags Laborer Relationship Specialty Start Date End Date Julia Chatterjee MD [address] [facility] 1 [place] [address] PCP - General 01/31/10 documented as of this encounter
--- OUTSIDE RECORDS SUMMARY | 2023-10-22 02:49 | XMS_ITS | Encounter Summary ---
Author Organization [facility] Address [facility] [place] [address] Care Team Providers Care Herb Doctor Name Role Phone Julia Chatterjee MD Primary Care Provider [phone] Encounter Details Date Type Department Care Team (Latest Contact Info) Description 10/22/2019 10:27 AM EDT - 10/22/2019 1:24 PM EDT Hospital Encounter [place] [address] Yola Oliveros MD [facility] [place] [address] Discharge Disposition: Home Social History Tobacco Use [...] Sign Reading Time Taken Comments Blood Pressure 100/60 10/22/2019 12:20 PM EDT Pulse 72 10/22/2019 11:50 AM EDT Temperature 36.5 ??C (97.7 ??F) 10/22/2019 10:41 AM E DT Respiratory Rate 17 10/22/2019 12:20 PM EDT Oxygen Saturation 96% 10/22/2019 12:20 PM EDT Inhaled Oxygen Concentration - - Weight 62.6 kg (138 lb) 10/22/2019 10:41 AM EDT Height 160 cm (5' 3) 10/22/2019 10:41 AM EDT Body Mass Index 24.45 10/22/2019 10:41 AM EDT documented in this encounter Discharge Instructions * Attachments The following attachments cannot be sent through Care Everywhere. * Colonoscopy: Post-op (Vietnamese) documented in this encounter Medications at Time [...] 1:00 PM EST Office Visit Hematology/Oncology at [address] [phone] Lee Ann [place] MD [facility] HEMATOLOGY [place] [address] Leti Anderson APRN [facility] HEMATOLOGY [place] [address] documented as of this encounter Procedures Procedure Name Priority Date/Time Associated Diagnosis Comments SPECIMEN TO PATHOLOGY Routine 10/22/2019 11:52 AM EDT SPECIMEN TO PATHOLOGY Routine 10/22/2019 11:52 AM EDT SPECIMEN TO PATHOLOGY Routine 10/22/2019 11:52 AM EDT SPECIMEN TO PATHOLOGY Routine 10/22/2019 11:52 AM EDT SPECIMEN TO PATHOLOGY Routine 10/22/2019 11:52 AM EDT SURGICAL PATHOLOGY REPORT Routine 10/22/2019 11:15 AM EDT Colonoscopy, Biopsy ([id number]) 10/22/2019 11:01 AM EDT Ulcerative rectosigmoiditis with abscess Colonoscopy, IVCS, in 1-2 weeks for L sided colitis c/b hepatic abscess. Evaluate response to antibiotics and extent of colonic involvement COLONOSCOPY Routine 10/22/2019 9:49 AM EDT documented in this encounter Results * Specimen to Pathology (10/22/2019 11:52 AM EDT) AP Specimen 10/22/2019 11:5 2 AM EDT 10/22/2019 11:52 AM EDT Narrative [facility] - 10/22/2019 11:52 AM EDT Specimen requisition ordered. ??Separate Pathology report to follow L Inder Oliveros MD PATHOLOGY/CYTOLOGY O RDERABLES [facility] [place] [address] * Specimen to Pathology (10/22/2019 11:52 AM EDT) AP Specimen 10/22/2019 11:5 2 AM EDT 10/22/2019 11:52 AM EDT Narrative [facility] - 10/22/2019 11:52 AM EDT Specimen requisition ordered. ??Separate Pathology report to follow L Inder Oliveros MD PATHOLOGY/CYTOLOGY O OMI Performing Organization Address [facility]/[place] [address] * Specimen to Pathology (10/22/2019 11:52 AM EDT) AP Specimen 10/22/2019 11:5 2 AM EDT 10/22/2019 11:52 AM EDT Narrative [facility] - 10/22/2019 11:52 AM EDT Specimen requisition ordered. ??Separate Pathology report to follow L Inder Oliveros MD PATHOLOGY/CYTOLOGY O OMI Performing Organization Address [facility] [place] [address] * Specimen to Pathology (10/22/2019 11:52 AM EDT) AP Specimen 10/22/2019 11:5 2 AM EDT 10/22/2019 11:52 AM EDT Narrative [facility] - 10/22/2019 11:52 AM EDT Specimen requisition ordered. ??Separate Pathology report to follow L Inder Oliveros MD PATHOLOGY/CYTOLOGY O OMI Performing Organization Address [facility] [address] * Specimen to Pathology (10/22/2019 11:52 AM EDT) AP Specimen 10/22/2019 11:5 2 AM EDT 10/22/2019 11:52 AM EDT Narrative [facility] - 10/22/2019 11:52 AM EDT Specimen requisition ordered. ??Separate Pathology report to follow L Inder Oliveros MD PATHOLOGY/CYTOLOGY O RDERAARMANDO [facility] [place] [address] * Surgical Pathology Report (10/22/2019 11:15 AM EDT) Final Diagnosis [id number] ? Location: 4T; EA10; A The signing [...] PhD, Christal Verified: ??10/30/2019 ?Pathologist Performed at: ??-[facility] Dept. of Pathology, [place], [place] ADDITIONAL STUDIES E - ??multiple levels [...] labeled E1. ??ajw 10/30/2019 1:35 PM EDT [facility] GI Biopsy 10/22/2019 11:1 5 AM EDT 10/22/2019 11:15 AM EDT GI Biopsy 10/22/2019 11:1 5 AM EDT 10/22/2019 11:15 AM EDT GI Biopsy 10/22/2019 11:1 5 AM EDT 10/22/2019 11:15 AM EDT GI Biopsy 10/22/2019 11:1 5 AM EDT 10/22/2019 11:15 AM EDT GI Biopsy 10/22/2019 11:1 5 AM EDT 10/22/2019 11:15 AM EDT L Inder Oliveros MD PATHOLOGY/CYTOLOGY Eneida BRAGA [facility] [place] [address] * COLONOSCOPY (10/22/2019 9:49 AM EDT) COLONOSCOPY [facility] Endoscopy Procedure Date: 10/22/2019 9:49 AM ? Patient Name: Leti Parry ? Date of : 1950 ? Age: 68 ? Order #: [id number] ? Instrument Name: [id number] ? Procedure: ? Colonoscopy Indications: ? Follow-up of left-sided chronic ? ulcerative colitis Providers: ? Marija Oliveros MD, Hesham Larson ? Skyla Dobson RN, ? Power Vega Referring : ?Julia Chatterjee [...] preparation was evaluated using ? the BBPS ([place] Bowel Preparation ? Scale) with scores of: [...] Procedure Code(s): ?? --- Professional --- ? 99413, Colonoscopy, flexible; with ? biopsy, single or multiple CPT copyright 2019 [employer]. All rights reserved. The codes documented in this report are preliminary and upon camera control operator review may be revised to meet current [...] 10:56 AM EDT 100 mL/hr 100 mL/hr documented in this [...] Intra-Operative (Intra-Procedure) 1123 (Given - Provid er: Yola Oliveros MD) midazolam (PF) (VERSED) multi-dose injection (CANCELED) ONCE PRN, Starting on Lulu 10/22/19 at 1104, Until Lulu 10/22/19 at 1524, Intra-Operative (Intra-Procedure), Routine 1104 (Given - Provid er: Skyla Lutz RN)1108 (Given - Provider: Skyla Lutz RN)1111 (Given - Provider: Skyla Lutz RN)1116 (Given - Provider: Skyla Lutz RN) documented in this encounter Care Teams Herb Doctor Relationship Specialty Start Date End Date Julia Chatterjee MD [facility] [address] [place] [address] PCP - General 01/31/10 documented as of this encounter
--- OUTSIDE RECORDS SUMMARY | 2023-10-22 02:49 | XMS_ITS | Encounter Summary ---
Author Organization [facility] [place] [address] Care Team Providers Care Technician Automatic Name Role Phone Julia Chatterjee MD Primary Care Provider [phone] Reason for Visit * Reason Onset Date Comments Labs Only 09/29/2019 Encounter Details Date Type Department Care Team (Late st Contact Info) Description 09/29/2019 Telephone Hematology/Oncology at [address] [phone] Vicky Madrigal, RN Labs Only Social History Tobacco Use [...] Telephone Encounter - Vicky Madrigal RN - 09/29/2019 1:46 PM EDT Leti Parry had CBC today to see if she needed 3rd dose of zarxio 480 mcg. Her ANC was 1200 so she declined injection. She has FUV set up 10/20. She does not want labs again until appointment unless the provider advises otherwise. Will review with Dr Jay and call Pt with plan. Recent Results (from the past 72 hour(s)) CBC (with Diff) Result Value Ref Range WBC 4.45 Hemoglobin 13.3 Hematocrit 42.6 Platelets 250 Neutr Abs (ANC) 1.20 documented in this encounter Plan of Treatment Upcoming Encounters Date Type Department Care Team (Late st Contact Info) Description 04/15/2024 1:00 PM EST Office Visit Hematology/Oncology at [address] [phone] Lee Ann Jay MD [facility] [place] [address] Leti Anderson APRN [facility] [place] [address] documented as of this encounter Procedures Procedure Name Priority Date/Time Associated Diagnosis Comments CBC (WITH DIFF) Routine 09/29/2019 documented in this encounter Results * CBC (with Diff) (09/29/2019) White Blood Cell 4.45 Hemoglobin 13.3 Hematocrit 42.6 Platelet 250 ANC 1.20 Blood specimen (specimen) 09/29/2019 Lee Ann Jay MD HEMATOLOGY ORDER ASHLEY documented in this encounter Visit Diagnoses Not on filedocumented in this encounter Care Teams Technician Automatic Relationship Specialty Start Date End Date Julia Chatterjee MD [facility] [address] [place] [address] PCP - General 01/31/10 documented as of this encounter
--- OUTSIDE RECORDS SUMMARY | 2023-10-22 02:49 | XMS_ITS | Encounter Summary ---
Author Organization [facility] [place] [address] Care Team Providers Care Information Systems Supervisor Name Role Phone Julia Chatterjee MD Primary Care Provider [phone] Encounter Details Date Type Department Care Team (Late st Contact Info) Description 09/07/2019 [place] [address] Jessica Johnson Social History Tobacco Use Types [...] * Telephone Encounter - Jessica Johnson - 09/07/2019 9:22 AM EDT Called pt to schedule a colo from her ref. No answer so left a vm documented in this encounter Plan of Treatment Upcoming Encounters Date Type Department Care Team (Late st Contact Info) Description 04/15/2024 1:00 PM EST Office Visit Hematology/Oncology at [address] [phone] Lee Ann [place] MD [facility] DR [place] [address] Leti Anderson APRN [facility] [address] [place] [address] documented as of this encounter Visit Diagnoses Not on filedocumented in this encounter Care Teams Information Systems Supervisor Relationship Specialty Start Date End Date Julia Chatterjee MD [facility] [address] [facility] 1 [place] [address] PCP - General 01/31/10 documented as of this encounter
--- OUTSIDE RECORDS SUMMARY | 2023-10-22 02:49 | XMS_ITS | Encounter Summary ---
Author Organization [facility] [place] [address] Care Team Providers Care Maintenance Planner Name Role Phone Julia Chatterjee MD Primary Care Provider [phone] Encounter Details Date Type Department Care Team (Late st Contact Info) Description 09/21/2019 Notes Only [place] [address] Mylene Bailey, RN Social History Tobacco Use Types Packs/Day Years Used Date Smoking Tobacco: Never Smokeless Tobacco: Never Alcohol Use Standard Drinks/Week Comments Yes 1 (1 standard drink = 0.6 oz pur e alcohol) Sex and Gender Information Value Date Recorded Sex Assigned at Not on file Gender Identity Not on file Sexual Orientation Not on file documented as of this encounter Progress Notes * Mylene Bailey, RN - 09/21/2019 2:59 PM EDT OPAT: Order / Recommendation for Post Discharge IV Antibiotic Management To: Briana King [phone] Specialty: ID Diagnosis: Liver Abscess s/p drain placement [...] cm Infectious Disease Attending: Briana King DO 14:50: Business Proposal Rep received a call from Magalis riddle at [facility] with critical lab results from today: WBC: 1.78, ANC: 0.29. In Basket message with high priority sent to Dr. Briana King (away), Dr. Lee Ann Jay. B Attending Dr. Ioana Yung also notified via page. Mylene Bailey, RN, OPAT Program Pager: [phone] documented in this encounter Plan of Treatment Upcoming Encounters Date Type Department Care Team (Late st Contact Info) Description 04/15/2024 1:00 PM EST Office Visit Hematology/Oncology at [address] [phone] Lee Ann Jay MD [facility] DR HEMATOLOGY [place] [address] Leti Anderson APRN [facility] HEMATOLOGY [place] [address] documented as of this encounter Visit Diagnoses Not on filedocumented in this encounter Care Teams Maintenance Planner Relationship Specialty Start Date End Date Julia Chatterjee MD [facility] [address] [place] [address] PCP - General 01/31/10 documented as of this encounter
--- OUTSIDE RECORDS SUMMARY | 2023-10-22 02:49 | XMS_ITS | Encounter Summary ---
Author Organization [facility] [place] [address] Care Team Providers Care Android Framework Developer Name Role Phone Julia Chatterjee MD Primary Care Provider [phone] Reason for Referral * Consultation (Routine) - Closed Specialty Diagnoses / Procedures Referred By Contact Referred To Contact Infectious Diseases Diagnoses Hepatic abscess Bacteroides fragilis Infection due to Peptostreptococcus species Actinomyces infection Briana King [facility] [place] [address] Briana King [facility] [place] [address] Referral ID Status Reason Start Date Expiration Date V isits Requested Visits Authorized [id number] Closed Assume Subset of Care 09/08/2019 09/07/2020 1 1 Encounter Details Date Type Department Care Team (Latest Contact Info) Description 09/08/2019 Orders Only [place] [address] Briana King [facility] [place] [address] Hepatic abscess; Bacteroides fragilis; Infection due to Peptostreptococcus species; Actinomyces infection Social History Tobacco Use Types Packs/Day [...] 1:00 PM EST Office Visit Hematology/Oncology at [address] [phone] Lee Ann Jay MD [facility] DR HEMATOLOGY [place] [address] Leti Anderson APRN [facility] HEMATOLOG[place] [address] Scheduled Referrals Name Type Priority Associated Diagnoses Orde r Schedule OPAT: Order / Recommendation for Post Discharge IV Antibiotic Management Outpatient Referral Routine Hepatic abscess Bacteroides fragilis Infection due to Peptostreptococcus species Actinomyces infection Ordered: 09/08/2019 documented as of this encounter Visit Diagnoses Diagnosis Hepatic abscess Abscess of liver Bacteroides fragilis Bacteroides fragilis infection in conditions classified elsewhere and of unspecified site Infection due to Peptostreptococcus species Actinomyces infection Actinomycotic infection of unspecified site documented in this encounter Care Teams Android Framework Developer Relationship Specialty Start Date End Date Julia Chatterjee MD [address] [place] [address] PCP - General 01/31/10 documented as of this encounter
--- OUTSIDE RECORDS SUMMARY | 2023-10-22 02:49 | XMS_ITS | Encounter Summary ---
Author Organization [facility] [place] [address] Care Team Providers Care Enterer Name Role Phone Julia Chatterjee MD Primary Care Provider [phone] Encounter Details Date Type Department Care Team (Late Contact Info) Description 09/14/2019 Orders [place] [address] Power Manriquez MD [facility] [place] [address] Social History Tobacco Use Types Packs/Day Years [...] 1:00 PM EST Office Visit Hematology/Oncology at [address] [phone] Lee Ann Jay MD [facility] DR HEMATOLOGY [place] [address] Leti Anderson, ADJUNCT WRITING INSTRUCTOR [facility] DR HEMATOLOGY [place] [address] documented as of this encounter Visit Diagnoses Not on filedocumented in this encounter Care Teams Enterer Relationship Specialty Start Date End Date Julia Chatterjee MD [address] [place] [address] PCP - General 01/31/10 documented as of this encounter
--- OUTSIDE RECORDS SUMMARY | 2023-10-22 02:49 | XMS_ITS | Encounter Summary ---
Author Organization [facility] [place] [address] Care Team Providers Care Supervisor Coating Name Role Phone Julia Chatterjee MD Primary Care Provider [phone] Reason for Visit * Reason Comments Injections Zarxio Encounter Details Date Type Department Care Team (Late Contact Info) Description 09/22/2019 12:00 PM EDT Infusion Hematology Oncology at [address] [phone] Neutropenia, unspecified type Social History [...] Progress Notes * Radha German RN - 09/22/2019 12:00 PM EDT Infusion Note Diagnosis: Leukopenia Treatment: Zarxio Injection Zarxio 480 mcg injected in abdominal tissue SQ. Patient aware to call clinic with any questions or concerns. Plan: Return to clinic as scheduled. documented in this encounter Plan of Treatment Upcoming Encounters Date Type Department Care Team (Late Contact Info) Description 04/15/2024 1:00 PM EST Office Visit Hematology/Oncology at [address] [phone] Lee Ann Jay MD [facility] DR HEMATOLOGY [place] [address] Leti Anderson APRN [facility] HEMATOLOGY [place] [address] documented as of this encounter Visit Diagnoses Diagnosis Neutropenia, unspecified type documented in this encounter Administered Medications Inactive Administered Medications - up to 3 most recent administrations Medication Order MAR Action Action Date Dose Rate Site filgrastim-sndz (ZARXIO) injection 480 mcg 480 mcg, Subcutaneous, ONCE, 1 dose, On Sat09/22/19 at 1315, Bring to room temperature 30 minutes before administration, Routine Given 09/22/2019 1:00 PM EDT 480 mcg Abdominal Tissue documented in this encounter Care Teams Supervisor Coating Relationship Specialty Start Date End Date Julia Chatterjee MD [facility] [address] [place] [address] PCP - General 01/31/10 documented as of this encounter
--- OUTSIDE RECORDS SUMMARY | 2023-10-22 02:49 | XMS_ITS | Encounter Summary ---
Author Organization [facility] [place] [address] Care Team Providers Care Survey Superintendent Name Role Phone Julia Chatterjee MD Primary Care Provider [phone] Reason for Visit * Reason Onset Date Comments Abnormal Lab 10/09/2019 ANC Encounter Details Date Type Department Care Team (Late st Contact Info) Description 10/09/2019 Telephone Hematology Oncology at [address] [phone] Billie Diaz RN Abnormal Lab (ANC) Social History Tobacco Use Types Packs/Day Years [...] Telephone Encounter - Billie Diaz RN - 10/09/2019 1:05 PM EDT An called back and agrees with the plan below. She will make an appt to have labs at [facility] the day before her appt with dr jay on 10/20. * Telephone Encounter - Billie Diaz RN - 10/09/2019 11:08 AM EDT I called and LM for an to call me back re labs today. Per Dr. Jay: her ANC is low again butthat is OK as long as she is not symptomatic. An needs to call us if she develops signs of a infection such as fever. She will FU with Dr. Jay on 10/20 with labs. Awaiting her call back at this time. * Telephone Encounter - Billie Diza RN - 10/09/2019 10:06 AM EDT CBC today after refusal of zarxio on 09/28 for ANC of 1.20. ANC critical today. Will send to Dr. Cannon for advise via email. Results for AN PARRY ( ) as of 10/09/2019 10:08 09/25/2019 00:00 09/29/2019 00:00 10/09/2019 00:00 WBC 2.63 4.45 2.10 Hemoglobin 12.5 13.3 12.3 Hematocrit 39.5 42.6 38.6 Platelets 226 250 240 Neutr Abs (ANC) 0.39 1.20 0.33 BUN 10 Creatinine 0.63 IR DRAIN CHECK/CHANGE/REMOVE documented in this encounter Plan of Treatment Upcoming Encounters Date Type Department Care Team (Late st Contact Info) Description 04/15/2024 1:00 PM EST Office Visit Hematology/Oncology at [address] [phone] Lee Ann Jay MD [facility] DR HEMATOLOGY [place] [address] An Anderson, JAYLEN [facility] HEMATOLOGY [place] [address] documented as of this encounter Procedures Procedure Name Priority Date/Time Associated Diagnosis Comments CBC (WITH DIFF) Routine 10/09/2019 documented in this encounter Results * CBC (with Diff) (10/09/2019) White Blood Cell 2.10 Hemoglobin 12.3 Hematocrit 38.6 Platelet 240 ANC 0.33 Blood specimen (specimen) 10/09/2019 Lee Ann Jay MD HEMATOLOGY ORDER ASHLEY documented in this encounter Visit Diagnoses Not on filedocumented in this encounter Care Teams Survey Superintendent Relationship Specialty Start Date End Date Julia Chatterjee MD [facility] [address] [place] [address] PCP - General 01/31/10 documented as of this encounter
--- OUTSIDE RECORDS SUMMARY | 2023-10-22 02:49 | XMS_ITS | Encounter Summary ---
[place] [address] Care Team Providers Care Christmas Tree Contractor Name Role Phone Julia Chatterjee MD Primary Care Provider [phone] Reason for Referral * Diagnostic Test (Routine) - Closed Specialty Diagnoses / Procedures Referred By Contac t Referred To Contact Radiology Diagnoses Hepatic abscess Procedures IR Drain Check/Change/Remove Barrett Malagon [facility] [place] [address] [facility] [place] [address] Referral ID Status Reason Start Date Expiration Date V isits Requested Visits Authorized [id number] Closed Specialty Service Requested 09/03/2019 03/04/2021 1 1 Reason for Visit * Diagnostic Test (Routine) - Closed Specialty Diagnoses / Procedures Referred By Contac t Referred To Contact Radiology Diagnoses Hepatic abscess Procedures IR Drain Check/Change/Remove Barrett Malagon [facility] [place] [address] [place] [address] Referral ID Status Reason Start Date Expiration Date V isits Requested Visits Authorized [id number] Closed Specialty Service Requested 09/03/2019 03/04/2021 1 1 Encounter Details Date Type Department Care Team (Latest Contact Info) Description 09/28/2019 8:00 AM EDT - 09/28/2019 11:59 PM EDT Hospital [place] [address] [place] [address] Hepatic abscess Discharge Disposition: Home Social History Tobacco Use [...] Sign Reading Time Taken Comments Blood Pressure 122/78 09/28/2019 9:48 AM EDT Pulse 60 09/28/2019 8:33 AM EDT Temperature 36.4 ??C (97.5 ??F) 09/28/2019 9:48 AM ED T Respiratory Rate 16 09/28/2019 9:48 AM EDT Oxygen Saturation 96% 09/28/2019 9:48 AM EDT Inhaled Oxygen Concentration - - Weight - - Height - - Body Mass Index - - documented in this encounter Discharge Instructions * Discharge Instructions* Jenae Bennett RN - 09/28/2019 9:46 AM EDT [facility] Vascular and Interventional Radiology Discharge Instructions For Your Puncture Site Activity and Diet: ??? Go Home and rest quietly for the remainder of the day. You may resume your normal activities tomorrow. ??? Resume your usual diet after the procedure. Bandage: There is a sterile dressing over the puncture site consisting of small gauze with a clear dressing (Tegaderm). This dressing should be left in place for 24 hours. If the clear dressing becomes loose you should place tape over the edges to secure it in place. Bathing: Do not take a shower until 24 hours after your procedure; after this time you may shower with the dressing in place, then remove it and pat your skin dry. You may use a bandaid to cover the site if there is any drainage. When to call your healthcare provider: ??? If you notice bleeding or a bulge from the puncture site, you should apply firm pressure over the site for 10-15 minutes, keeping the site covered and call your doctor. If you are still bleeding after 10-15 minutes, reapply pressure, and have someone drive you to the nearest Emergency Department, or call 911. ??? If you develop pain, redness, drainage or swelling at or around the puncture site. ??? If you develop fever equal to or greater than 101F and/or shaking chills. When to call the Interventional Radiology Department: Please call with any questions or concerns. If it is during regular office hours, please call [phone]. If it is after regular office hours, or on weekends or holidays, please call [phone] and ask to speak to the Wire Transfer Clerk motion study engineer for Interventional Radiology. You have received medication during your procedure to help lessen anxiety and keep you comfortable.These medications affect judgement and reaction time. We recommend that you do not drive, operate equipment, sign any important documents, or smoke unattended for 24 hours following your procedure. Because of the sedation, be careful on stairs, as you may be unsteady on your feet. You may resume your regular diet as tolerated. IV site -- slight redness, or tenderness is normal, you can use a warm compress. If tenderness and redness increases or foul drainage occurs, please contact your M. D. Revised 03/25/15 documented in this encounter Medications at Time of Discharge Medication Sig Dispensed Refills Start Date End Date pantoprazole EC (Protonix) 20 mg Tablet, Delayed Release (E.C.) Take 20 mg by mouth daily. 10/14/2019 predniSONE (Deltasone) 10 mg Tablet Take 30 mg by mouth daily. Prednisone taper every week decreased 10 mg 10/14/2019 L.acidophil/L.plantar/B ifido 7 (UP4 PROBIOTICS ADULT ORAL) Take by mouth 3 times daily. 04/27/2020 ERGOCALCIFEROL, VITAMIN D2, (VITAMIN D ORAL) 06/28/2008 08/05/2 020 documented as of this encounter Progress Notes * Jenae Bennett RN - 09/28/2019 9:27 AM EDT To procedure room 1 via stretcher. Onto table Prone. All monitors, O2, safety strap in place. Med'sper protocol. * Jenae Bennett RN - 09/23/2019 11:34 AM EDT [facility] Name: AN PARRY Date of : 1950 AGE: 68 y.o. Address: [address] [address] (home) Mobile: Telephone Information: Referring Provider: Barrett Malagon REASON FOR VISIT: Order Questions Answers Where will study be performed? [facility] Radiology [120] Reason for exam and clinical history: CT-guided drain placed in liver abscess on 09/01 Is the patient on anticoagulant / anitplatelet therapy ? No Allergies Allergen Reactions ??? Benzalkonium Chloride Pertinent PSH: Past Surgical History: Procedure Laterality Date ??? CT ASPIRATION LIVER 09/02/2019 CT Guided Aspiration Liver 09/02/2019 [facility] RAD CAT SCAN ??? PRO BONE MARROW ASPIRATION W/BX THROUGH SAME INCISION/SITE Right 01/08/2017 ([facility]) BONE MARROW ASP PERFORMED W/BX THRU BX INCISION (WRVU 0.16) performed by Lee Ann Jay MD at [facility] OSC ??? PRO BONE MARROW BX, NEEDLE/TROCAR Right 01/08/2017 ([facility]) BONE MARROW,BIOPSY (WRVU 1.37) performed by Lee Ann Jay MD at [facility] OSC ??? PRO COLONOSCOPY, BIOPSY 07/05/2011 COLONOSCOPY FLEXIBLE, WITH BX performed by MARY CASTRO at [facility] ENDOSCOPY ??? PRO COLONOSCOPY, REMV LESN, SNARE 07/05/2011 COLONOSCOPY, POLYPECTOMY, REMOVAL LESION BY SNARE performed by MARY CASTRO at [facility] ENDOSCOPY ??? PRO SIGMOIDOSCOPY, DIAGNOSTIC N/A 09/02/2019 FLEXIBLE SIGMOIDOSCOPY performed by Mary Castro MD at [facility] ENDOSCOPY Date/Procedure Meds given/comments 09/02/19 CT Liver Drain Fentanyl 200 mcg IV, Versed 4 mg IV 09/28/19 Drain check Local Only ? Laboratory Results: Lab Results Component Value Date INR 1.2 09/01/2019 Lab Results Component Value Date CREATININE 0.49 (L) 09/04/2019 Lab Results Component Value Date K 4.1 09/04/2019 Lab Results Component Value Date PLATELET 306 09/07/2019 documented in this encounter H&P Notes * Power Manriquez MD - 09/28/2019 9:15 AM EDT INTERVENTIONAL RADIOLOGY FOCUSED H&P: Procedure: Planned procedure: Liver abcess drain check The patient's history and physical exam have been reviewed and completed. There has been no interval change from that of the pre-operative history and physical exam done within the last 30 days. Physical Exam: Cardiovascular: Regular, Normal Pulmonary: Breath sounds clear to auscultation Abdomen: Soft NTND The planned procedure (and sedation plan if appropriate) , its benefits and risks, and alternativeswere discussed with the patient. The patient consented to the procedure. PRE-SEDATION ASSESSMENT: Sedation Plan: no sedation ASA: 3: Patient with severe systemic disease Current medications reviewed: Yes Allergies reviewed: Yes Source Note - Nolan Keene MD - 09/24/2019 3:09 PM EDT Images from the original note were not included. INTERVENTIONAL RADIOLOGY FOCUSED H&P and PRE-PROCEDURE NOTE: PCP: Julia Chatterjee MD Referring Provider: Barrett Malagon Planned Procedure: Planned procedure: Liver abcess drain check Procedure Indication: Liver abscess drain placed 09/01 Order Questions Answers Where will study be performed? [facility] Radiology [120] Reason for exam and clinical history: CT-guided drain placed in liver abscess on 09/01 Is the patient on anticoagulant / anitplatelet therapy ? No Presenting Diagnosis/ Complaint: An Parry is a 68 y.o. 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 CT-guided drain placed on 624. IR consulted for drain check. Past Medical/Surgical History: Patient Active Problem List Diagnosis Code ??? Leukopenia D72.819 ??? Ulcerative colitis K51.90 ??? Hepatic abscess K75.0 No past medical history on file. Past Surgical History: Procedure Laterality Date ??? CT ASPIRATION LIVER 09/02/2019 CT Guided Aspiration Liver 09/02/2019 [facility] RAD CAT SCAN ??? PRO BONE MARROW ASPIRATION W/BX THROUGH SAME INCISION/SITE Right 01/08/2017 ([facility]) BONE MARROW ASP PERFORMED W/BX THRU BX INCISION (WRVU 0.16) performed by Lee Ann Jay MD at [facility] OSC ??? PRO BONE MARROW BX, NEEDLE/TROCAR Right 01/08/2017 ([facility]) BONE MARROW,BIOPSY (WRVU 1.37) performed by Lee Ann Jay MD at [facility] OSC ??? PRO COLONOSCOPY, BIOPSY 07/05/2011 COLONOSCOPY FLEXIBLE, WITH BX performed by MARY CASTRO at [facility] ENDOSCOPY ??? PRO COLONOSCOPY, REMV LESN, SNARE 07/05/2011 COLONOSCOPY, POLYPECTOMY, REMOVAL LESION BY SNARE performed by MARY CASTRO at [facility] ENDOSCOPY ??? PRO SIGMOIDOSCOPY, DIAGNOSTIC N/A 09/02/2019 FLEXIBLE SIGMOIDOSCOPY performed by Mary Castro MD at [facility] ENDOSCOPY Medications: Current Outpatient Medications on File Prior to Encounter Medication Sig Dispense Refill ??? cefTRIAXone (ROCEPHIN) 2 gram Recon Soln Inject 20 mLs into the vein daily. ??? metroNIDAZOLE (Flagyl) 500 mg Tablet Take 1 tablet by mouth 3 times daily for 22 days. 66 tablet 0 ??? pantoprazole EC (Protonix) 20 mg Tablet, Delayed Release (E.C.) Take 20 mg by mouth daily. ??? predniSONE (Deltasone) 10 mg Tablet Take 30 mg by mouth daily. Prednisone taper every week decreased 10 mg ??? L.acidophil/L.plantar/Bifido 7 (UP4 PROBIOTICS ADULT ORAL) Take by mouth 3 times daily. ??? ERGOCALCIFEROL, VITAMIN D2, (VITAMIN D ORAL) No current facility-administered medications on file prior to encounter. Allergies: Benzalkonium chloride Social History and Habits: Social History Socioeconomic History ??? Marital status: Spouse name: Not on file ??? Number of children: Not on file ??? Years of education: Not on file ??? Highest education level: Not on file Occupational History ??? Not on file Social Needs ??? Financial resource strain: Not on file ??? Food insecurity Worry: Not on file Inability: Not on file ??? Transportation needs Medical: Not on file Non-medical: Not on file Tobacco Use ??? Smoking status: Never Smoker ??? Smokeless tobacco: Never Used Substance and Sexual Activity ??? Alcohol use: Yes Alcohol/week: 1.0 standard drinks Types: 1 Glasses of wine per week ??? Drug use: No ??? Sexual activity: Not on file Lifestyle ??? Physical activity Days per week: Not on file Minutes per session: Not on file ??? Stress: Not on file Relationships ??? Social connections Talks on phone: Not on file Gets together: Not on file Attends sikh service: Not on file Active member of club or organization: Not on file Attends meetings of clubs or organizations: Not on file Relationship status: Not on file ??? Intimate partner violence Fear of current or ex partner: Not on file Emotionally abused: Not on file Physically abused: Not on file Forced sexual activity: Not on file Other Topics Concern ??? Not on file Social History Narrative ??? Not on file Significant Family History: No family history on file. Pertinent ROS: as per HPI Labs: Lab Results Component Value Date WBC 7.4 09/07/2019 ANC 3.32 08/25/2019 HCT 38.0 09/07/2019 PLATELET 306 09/07/2019 INR 1.2 09/01/2019 BUN 9 09/04/2019 CREATININE 0.49 (L) 09/04/2019 ALKPHOS 105 09/03/2019 AST 15 09/03/2019 ALBUMIN 3.2 09/03/2019 BILIDIR 0.1 09/03/2019 BILITOT 0.4 09/03/2019 ALT 32 (H) 09/03/2019 PROT 7.3 09/03/2019 K 4.1 09/04/2019 Imaging: Physical Exam: Pending (to be performed in angio the day of procedure) ASA: Pending (to be assessed in angio the day of procedure) Mallampati Class: Pending (to be assessed in angio the day of procedure) Assessment: 68 y.o. 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 CT-guided drain placed on 624. IR consulted for draincheck. Plan: Plan Planned procedure: Liver abcess drain check Labs to be performed day of procedure: No labs Sedation: No Sedation Prophylactic antibiotic : None Contrast: Omnipaque Additional medications for procedure: Lidocaine Medications to discontinue (and days held): None Planned access site: right sided drain Position: Prone Cytopathology presence needed: No 09/24/2019 Royer Keene PGY-5 * Nolan Keene MD - 09/24/2019 3:09 PM EDT Images from the original note were not included. INTERVENTIONAL RADIOLOGY FOCUSED H&P and PRE-PROCEDURE NOTE: PCP: Julia Chatterjee MD Referring Provider: Barrett Malagon Planned Procedure: Planned procedure: Liver abcess drain check Procedure Indication: Liver abscess drain placed 09/01 Order Questions Answers Where will study be performed? [facility] Radiology [120] Reason for exam and clinical history: CT-guided drain placed in liver abscess on 09/01 Is the patient on anticoagulant / anitplatelet therapy ? No Presenting Diagnosis/ Complaint: An Parry is a 68 y.o. 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 CT-guided drain placed on 624. IR consulted for drain check. Past Medical/Surgical History: Patient Active Problem List Diagnosis Code ??? Leukopenia D72.819 ??? Ulcerative colitis K51.90 ??? Hepatic abscess K75.0 No past medical history on file. Past Surgical History: Procedure Laterality Date ??? CT ASPIRATION LIVER 09/02/2019 CT Guided Aspiration Liver 09/02/2019 [facility] RAD CAT SCAN ??? PRO BONE MARROW ASPIRATION W/BX THROUGH SAME INCISION/SITE Right 01/08/2017 ([facility]) BONE MARROW ASP PERFORMED W/BX THRU BX INCISION (WRVU 0.16) performed by Lee Ann Jay MD at [facility] OSC ??? PRO BONE MARROW BX, NEEDLE/TROCAR Right 01/08/2017 ([facility]) BONE MARROW,BIOPSY (WRVU 1.37) performed by Lee Ann Jay MD at [facility] OSC ??? PRO COLONOSCOPY, BIOPSY 07/05/2011 COLONOSCOPY FLEXIBLE, WITH BX performed by MARY CASTRO at [facility] ENDOSCOPY ??? PRO COLONOSCOPY, REMV LESN, SNARE 07/05/2011 COLONOSCOPY, POLYPECTOMY, REMOVAL LESION BY SNARE performed by MARY CASTRO at [facility] ENDOSCOPY ??? PRO SIGMOIDOSCOPY, DIAGNOSTIC N/A 09/02/2019 FLEXIBLE SIGMOIDOSCOPY performed by Mary Castro MD at [facility] ENDOSCOPY Medications: Current Outpatient Medications on File Prior to Encounter Medication Sig Dispense Refill ??? cefTRIAXone (ROCEPHIN) 2 gram Recon Soln Inject 20 mLs into the vein daily. ??? metroNIDAZOLE (Flagyl) 500 mg Tablet Take 1 tablet by mouth 3 times daily for 22 days. 66 tablet 0 ??? pantoprazole EC (Protonix) 20 mg Tablet, Delayed Release (E.C.) Take 20 mg by mouth daily. ??? predniSONE (Deltasone) 10 mg Tablet Take 30 mg by mouth daily. Prednisone taper every week decreased 10 mg ??? L.acidophil/L.plantar/Bifido 7 (UP4 PROBIOTICS ADULT ORAL) Take by mouth 3 times daily. ??? ERGOCALCIFEROL, VITAMIN D2, (VITAMIN D ORAL) No current facility-administered medications on file prior to encounter. Allergies: Benzalkonium chloride Social History and Habits: Social History Socioeconomic History ??? Marital status: Spouse name: Not on file ??? Number of children: Not on file ??? Years of education: Not on file ??? Highest education level: Not on file Occupational History ??? Not on file Social Needs ??? Financial resource strain: Not on file ??? Food insecurity Worry: Not on file Inability: Not on file ??? Transportation needs Medical: Not on file Non-medical: Not on file Tobacco Use ??? Smoking status: Never Smoker ??? Smokeless tobacco: Never Used Substance and Sexual Activity ??? Alcohol use: Yes Alcohol/week: 1.0 standard drinks Types: 1 Glasses of wine per week ??? Drug use: No ??? Sexual activity: Not on file Lifestyle ??? Physical activity Days per week: Not on file Minutes per session: Not on file ??? Stress: Not on file Relationships ??? Social connections Talks on phone: Not on file Gets together: Not on file Attends sikh service: Not on file Active member of club or organization: Not on file Attends meetings of clubs or organizations: Not on file Relationship status: Not on file ??? Intimate partner violence Fear of current or ex partner: Not on file Emotionally abused: Not on file Physically abused: Not on file Forced sexual activity: Not on file Other Topics Concern ??? Not on file Social History Narrative ??? Not on file Significant Family History: No family history on file. Pertinent ROS: as per HPI Labs: Lab Results Component Value Date WBC 7.4 09/07/2019 ANC 3.32 08/25/2019 HCT 38.0 09/07/2019 PLATELET 306 09/07/2019 INR 1.2 09/01/2019 BUN 9 09/04/2019 CREATININE 0.49 (L) 09/04/2019 ALKPHOS 105 09/03/2019 AST 15 09/03/2019 ALBUMIN 3.2 09/03/2019 BILIDIR 0.1 09/03/2019 BILITOT 0.4 09/03/2019 ALT 32 (H) 09/03/2019 PROT 7.3 09/03/2019 K 4.1 09/04/2019 Imaging: Physical Exam: Pending (to be performed in angio the day of procedure) ASA: Pending (to be assessed in angio the day of procedure) Mallampati Class: Pending (to be assessed in angio the day of procedure) Assessment: 68 y.o. 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 CT-guided drain placed on . IR consulted for draincheck. Plan: Plan Planned procedure: Liver abcess drain check Labs to be performed day of procedure: No labs Sedation: No Sedation Prophylactic antibiotic : None Contrast: Omnipaque Additional medications for procedure: Lidocaine Medications to discontinue (and days held): None Planned access site: right sided drain Position: Prone Cytopathology presence needed: No 09/24/2019 Royer Keene PGY-5 documented in this encounter Plan of Treatment Upcoming Encounters Date Type Department Care Team (Late st Contact Info) Description 04/15/2024 1:00 PM EST Office Visit Hematology/Oncology at [address] [address] Lee Ann Jay MD [facility] [place] [address] An Anderson APRN [facility] [place] [address] documented as of this encounter Procedures Procedure Name Priority Date/Time Associated Diagnosis Comments IR DRAIN CHECK/CHANGE/REMOVE Routine 09/28/2019 9:46 AM EDT Hepatic abscess documented in this encounter Results * IR Drain Check/Change/Remove (09/28/2019 9:46 AM EDT) Anatomical Region Laterality Modality Head X-Ray Angiograph y Narrative 09/28/2019 12:32 PM EDT IR PROCEDURE NOTE Procedure: Liver abscess drain injection and removal Indication for Procedure: Per the eDH note by Dr. Keene dated 09/24/19: An Keenan Sohan is a 68 y.o. 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 CT-guided drain placed on 09/01. IR consulted for drain check. Procedure events and findings: After obtaining verbal consent, in addition to confirming the active written serial consent, the patient was positioned prone on the procedure table. Sterile prep and drape performed. Maximum sterile barrier technique was used throughout. Contrast injection via the hepatic drainage catheter showed minimal residual abscess cavity. There was flow of contrast back along the catheter and out at the skin entry site. The catheter was cut and removed over a guide wire. The access site was dressed. Medications: 2% lidocaine gel topical. ??Antibiotic Prophylaxis: None ? Contrast: 4 mL Omnipaque 350 per drainage catheter Fluoro: 1.6 minutes Est Blood Loss: <5ccs. Complications: None immediate Impression: 1. ??Minimal residual hepatic abscess cavity. 2. ??Drainage catheter removed without incident. Resident: Power Manriquez MD Attending: Cliff Langston MD. ??I, Dr. Langston was present throughout this procedure. ?? Alexis Caro MD IMG IR ORDERABLES documented in this encounter Visit Diagnoses Diagnosis Hepatic abscess Abscess of liver documented in this encounter Administered Medications Inactive Administered Medications - up to 3 most recent administrations Medication Order MAR Action Action Date Dose Rate Site iohexoL (OMNIPAQUE) 350 mg/mL solution 50 mL 50 mL, Other, ONCE, 1 dose, On 09/28/19 at 1000, Warning Vesicant/Irritant Medication , Angio/IR (Intra-Procedure), Routine Given 09/28/2019 10:00 AM EDT 10 mLs documented in this encounter Care Teams Christmas Tree Contractor Relationship Specialty Start Date End Date Julia Chatterjee MD [address] [place] [address] PCP - General 01/31/10 documented as of this encounter
--- OUTSIDE RECORDS SUMMARY | 2023-10-22 02:49 | XMS_ITS | Encounter Summary ---
Author Organization [facility] Address [facility] [place] [address] Care Team Providers Care Skin Grader Name Role Phone Julia Chatterjee MD Primary Care Provider [phone] Reason for Visit * Reason Onset Date Comments Abnormal Lab 09/21/2019 Encounter Details Date Type Department Care Team (Late st Contact Info) Description 09/21/2019 Telephone [place] [id number] [facility] [place] [address] Abnormal Lab Social History Tobacco Use Types [...] encounter Miscellaneous Notes * Telephone Encounter - Kelby Kaye MD - 09/21/2019 3:57 PM EDT TELEPHONE ENCOUNTER Notified by bottle label inspector at [facility] that patient's lab draw significant for WBC 1.78 and ANC 0.29. Called patient at home - denied any fever, chills, or other systemic symptoms. Was visited by IV nurse today and PICC site c/d/i. 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 Santos, to discuss possible neupogen shot - patient will receive Saturday, Saturday of this week, then Saturday of next week. Called patient, who agrees and has no further questions. This case was dicussed with my attending, Dr. Yung. Kelby Kaye MD 09/21/2019 4:10 PM documented in this encounter Plan of Treatment Upcoming Encounters Date Type Department Care Team (Late st Contact Info) Description 04/15/2024 1:00 PM EST Office Visit Hematology/Oncology at [address] [phone] [address] [facility] [address] [place] [address] [facility] [address] [place] [address] documented as of this encounter Visit Diagnoses Not on filedocumented in this encounter Care Teams Skin Grader Relationship Specialty Start Date End Date Julia Chatterjee MD [address] [place] [address] PCP - General 01/31/10 documented as of this encounter
--- OUTSIDE RECORDS SUMMARY | 2023-10-22 02:49 | XMS_ITS | Encounter Summary ---
Author Organization [facility] [place] [address] Care Team Providers Care Back Grinder Name Role Phone Julia Chatterjee MD Primary Care Provider [phone] Encounter Details Date Type Department Care Team (Late Contact Info) Description 10/09/2019 Telephone Hematology Oncology at [address] [phone] Billie Diaz RN Social History Tobacco Use Types Packs/Day [...] PM EST Office Visit Hematology/Oncology at [address] [phone] Lee Ann Jay MD [facility] [place] [address] Leti Anderson, [employer]F [facility] [place] [address] documented as of this encounter Visit Diagnoses Not on filedocumented in this encounter Care Teams Back Grinder Relationship Specialty Start Date End Date Julia Chatterjee MD [address] [place] [address] PCP - General 01/31/10 documented as of this encounter
--- OUTSIDE RECORDS SUMMARY | 2023-10-22 02:49 | XMS_ITS | Encounter Summary ---
Author Organization Formerly [facility] [place] [address] Care Team Providers Care Pmo Consultant Name Role Phone Julia Chatterjee MD Primary Care Provider [phone] Reason for Referral * Consultation (Routine) - Duplicate Referral Specialty Diagnoses / Procedures Referred By Contact Referred To Contact Infectious Diseases Diagnoses Hepatic abscess Bacteroides fragilis Infection due to Peptostreptococcus species Actinomyces infection Briana King [facility] [place] [address] Briana King [facility] [place] [address] Referral ID Status Reason Start Date Expiration Date Visits Requested Visits Authorized [id number] Duplicate Referral Assume Subset of Care 09/07/2019 09/06/2020 1 1 * Diagnostic Test (Routine) - Closed Specialty Diagnoses / Procedures Referred By Contac t Referred To Contact Radiology Diagnoses Hepatic abscess Procedures IR Drain Check/Change/Remove Barrett Malagon [facility] [place] [address] [facility] [place] [address] Referral ID Status Reason Start Date Expiration Date V isits Requested Visits Authorized [id number] Closed Specialty Service Requested 09/03/2019 03/04/2021 1 1 Reason for Visit * Reason Comments Fever hepatic abscess * Auth/Cert Specialty Diagnoses / Procedures Referred By Contac t Referred To Contact Diagnoses Hepatic abscess Referral ID Status Reason Start Date Expiration Date Visits Re quested Visits Authorized [id number] 1 1 Encounter Details Date Type Department Care Team (Latest Contact Info) Description 09/01/2019 9:42 PM EDT - 09/07/2019 5:18 PM EDT Hospital Encounter [facility] [address] [place] [address] Amrik Zapata MD [facility] [place] [address] [place] [address] [place] [address] [place] [address] Hepatic abscess (Primary Dx); Bacteroides fragilis; Infection due to Peptostreptococcus species; Actinomyces infection Discharge Disposition: Home with VNA Social History Tobacco Use Types Packs/Day Years [...] Sign Reading Time Taken Comments Blood Pressure 106/68 09/07/2019 3:40 PM EDT Pulse 60 09/07/2019 3:40 PM EDT Temperature 36.7 ??C (98.1 ??F) 09/07/2019 3:40 PM ED T Respiratory Rate 16 09/07/2019 3:40 PM EDT Oxygen Saturation 95% 09/07/2019 3:40 PM EDT Inhaled Oxygen Concentration - - Weight 62.6 kg (138 lb) 09/01/2019 7:53 PM EDT Height - - Body Mass Index 26.07 10/23/2017 1:03 PM EDT documented in this encounter Discharge Summaries * Terrance Santana MD - 09/07/2019 4:31 PM EDT Images from the original note were not included. Discharge Summary Patient Name: Leti Parry Patient Age: 68 y.o. Language: Tanzanian Race: White Ethnicity: Not nor Admit date: 09/01/2019 Discharge date and time: 09/07/2019 at 2PM Attending Physician: Terrance Santana MD Discharge Physician: Terrance Santana MD Follow-up Recommendations for Providers: Patient has hepatic abscess drain with suction-bulb in place. She is scheduled for drain-check F/U with [facility] radiology on October 02. Please monitor for signs of drain compromise, infection, or worsening pain. Patient discharged with orders for 4 weeks outpatient IV antibiotics in addition to oral metronidazole. She will need to follow-up with infectious diseases in the next 2 to 4 weeks and will require weekly CBC and CMP monitoring which has been ordered Patient has follow-up appointment with Hematology service on October 21, 2019. Weekly CBC and BMP to monitor infection and leukocytes following neupogen injection (09/05/19) in the interim is advised. Patient will need to follow-up with GI for consideration of repeat colonoscopy to reassess status of her ulcerative colitis. In the meantime she will continue her steroid taper Inpatient Provider Contact Information: For questions regarding this document or issues relating to this hospitalization on the Medical Service, please contact your inpatient physician through the [facility] Eligibility Specialist . Issues afterhours and on weekends will be handled by the Hospitalist staff on-call. Discharge Diagnoses (Hospital Problems) and Secondary Diagnoses (Chronic Problems): Active Hospital Problems Diagnosis ??? Hepatic abscess Resolved Hospital Problems No resolved problems to display. Active Non-Hospital Problems Diagnosis ??? Ulcerative colitis ??? Leukopenia Operations/Major Procedures: CT-guided liver aspiration (09/02/19): removed 5cc of purulent fluid Flexible Sigmoidoscopy (09/02/19) canceled. History of Presentation: Ms. Parry was initially doing well after her discharge from the hospital. However, over the past week, has been developing intermittent fevers, measured Tm 102.2 today, and typically occurring in the morning. Fevers tend to resolve with spontaneously or with a dose of tylenol. She denies abd pain.No nausea or vomiting. She notes her BMs are formed, non-bloody but slightly burning, and has been having about 3-4 BMs a day (improved from her hospitalization but more than typical). Her appetite has been robust and has tolerated oral intake well. ?? She has been tapering her prednisone. Recently decreased to 20mg daily and will decrease to 10mg on09/07 ?? She denies cough, dyspnea, chest pain. No rash, myalgias, or arthralgias. No sick exposures. ?? She saw her PCP 08/23 for this. Then hem on 08/25. Returned to ED 08/27 - Her course of ciprofloxacin was extended and Augmentin was added. Hospital Course: #Hepatic abscess On admission, Ms. Parry was made NPO and received LR fluids. CT-guided percutaneous hepatic abscess aspiration on 09/01 drained 5ccs of purulent fluid. Patient's pain was well-managed on IV hydromorphone and acetaminophen initially, then acetaminophen and heating pads alone. Patient had fever to T-max 39.0 on day of admission which improved after drainage and she remained otherwise afebrile throughout her course and hemodynamically stable. Initial abscess fluid cultures showed many GPCs and fewGNRs. Patient was started on empiric IV piperacillin-tazobactam. Further culture results showed polymicrobial infection (results below) and patient was placed on IV ceftriaxone and PO metronidazole. Following a discussion with ID service, patient opted to continue oral metronidazole and parenteral ceftriaxone on an outpatient basis and received a PICC line on day of discharge. Blood cultures remained without growth during her stay. #Chronic neutropenia #Large granular lymphocytic leukemia Patient's white count downtrended over her stay until she became severely neutropenic on 09/04 with an (ANC 420). She received 480mcg GCSF with good response. WBC on day of discharge of 7.4 (ANC 4,830). #Ulcerative colitis GI followed the patient during the admission. Initially they were considering flexible sigmoidoscopy to reevaluate her ulcerative colitis. However due to hepatic abscess and infection, they deferred this procedure. She was continued on her steroid taper while in house. She will decrease to 10 mg ofprednisone starting tomorrow, 09/07. She should follow-up with GI as an outpatient for considerationof repeat colonoscopy. Vital Signs at Discharge: BP: 106/68, Heart Rate: 60, Temp: 36.7 ??C (98.1 ??F), Resp: 16, Weight: 62.6 kg (138 lb) (09/01/191952) Functional and Cognitive Status: Unchanged from baseline, mentally lucid, independent Important Studies and Lab Data: Labs: Recent Labs 09/07/19 0623 09/06/19 0950 09/05/19 0452 WBC 7.4 11.2* 1.5* HGB 11.7 12.3 11.0* PLATELET 306 300 266 Recent Labs 09/04/19 0443 09/03/19 0636 09/01/19 2208 NA 138 133* 134* K 4.1 3.8 4.0 CL 101 97* 94* CO2 27 26 27 BUN 9 10 10 CREATININE 0.49* 0.54* 0.67* Recent Labs 09/04/19 0443 09/03/19 0636 09/01/19 2208 CALCIUM 9.4 9.2 8.8 Recent Labs 09/03/19 0636 09/01/19 2208 AST 15 25 ALT 32* 44* ALKPHOS 105 112* BILITOT 0.4 0.3 BILIDIR 0.1 0.1 Micro: - Aerobic fluid cx: Few actinomyces species - Aerobic gram stain: Many Neutrophils seen Many Gram Positive Cocci seen Few Gram Negative Rods seen Rare Gram Positive Rods seen - Anaerobic fluid cx: Moderate Clostridium species, not C perfringens Moderate Bacteroides fragilis Group Moderate Peptostreptococcus species Blood Culture No growth at 5 days. Studies: Results for orders placed or performed during the hospital encounter of 09/01/19 CT Guided Aspiration Liver (Exam End: 09/02/2019 1:33 PM) Impression Impression: Successful CT-guided drain placement in a hepatic fluid collection. Plan/disposition: 1) To Angio recovery room, may discharge to floor when meets criteria. 2) Forward flush every 12 hours with 3-5 mL of normal saline. Record outputs daily. 3) Patient to return in 4 weeks for fluoroscopic drain check. Eligibility Specialist(s): Resident/Fellow: Johan Hernandez M.D. Attending: Terrance Gunter M.D. Procedure/Teaching Attestation: I was present for the procedure. Moderate Sedation Attestation: I was present during the intra-service time as documented by IR nurse. Preliminary report signed by: Johan Hernandez at 09/02/2019 2:11 PM I have personally reviewed the image(s) and the resident's interpretation and agree with the findings, Terrance Gunter at 09/02/2019 4:02 PM Thank you for letting us participate in the care of this patient. For questions regarding this report, please contact the number below. Electronically signed by: Terrance Gunter [facility] ([phone]), at 09/02/2019 4:02 PM XR PICC Placement Over 5 Years with Imaging Guidance (IV Team) (Exam End: 09/07/2019 9:43 AM) Impression Appropriate RIGHT PICC placement Thank you for letting us participate in the care of this patient. For questions regarding this report, please contact the number below. Electronically signed by: Jodee Ortega [facility] ([phone]), at 09/07/2019 9:45 AM Pending Studies and Lab Data: no studies pending Discharge Conditions Hepatic abscess Ulcerative Colitis Large granular lymphocytic leukemia Neutropenia Prognosis: good Discharge to: home Updated Allergies/ADRs: Allergies Allergen Reactions ??? Benzalkonium Chloride Immunizations Given this Hospitalization: There is no immunization history on file for this patient. Discharge Medications: Your Medications New Medications Dose Details cefTRIAXone 2 gram Solr Commonly known as: ROCEPHIN Inject 20 mLs into the vein daily. 2 g Refills: 0 metroNIDAZOLE 500 mg Tab Commonly known as: Flagyl Take 1 tablet by mouth 3 times daily for 22 days. 500 mg Quantity: 66 tablet Refills: 0 Continued medications, unchanged Dose Details pantoprazole EC 20 mg Tbec Commonly known as: Protonix Take 20 mg by mouth daily. 20 mg Refills: 0 predniSONE 10 mg Tab Commonly known as: Deltasone Take 30 mg by mouth daily. Prednisone taper every week decreased 10 mg 30 mg Refills: 0 UP4 PROBIOTICS ADULT ORAL Take by mouth 3 times daily. Refills: 0 VITAMIN D ORAL Refills: 0 STOPPED Medications amoxicillin-clavulanate 875-125 mg Tab Commonly known as: Augmentin ciprofloxacin 500 mg Tab Commonly known as: Cipro Smoking Status at Discharge: Social History Tobacco Use Smoking Status Never Smoker Smokeless Tobacco Never Used Instructions Given to Patient at Discharge: Patient Instructions You were hospitalized for treatment of a hepatic abscess. You had a procedure called a CT-guided drainage performed. Cultures from this fluid grew a variety of bacteria. You are treated with antibiotics to kill this bacteria. We have arranged for continuation of outpatient antibiotics, including intravenous antibiotics to continue to treat this infection. Currently, we are anticipating 4 weeks ofantibiotic therapy from the time of drain placement which was on 09/01. You will need to follow-up with the infectious disease clinic within 2 to [address] scan of your liver done to reassess the abscess. The infectious disease clinic should reach out to you for scheduling. Please see walter daly for additional follow-up instructions - Please decrease your prednisone taper to 10mg on SaturdaySeptember 07. You have a follow-up appointment scheduled for the following day, September 08, with your PCP, Dr. Chatterjee. - You have a follow-up appointment with [facility] radiology for a drain check on October 02. Please make sure to do flushes as outlined on discharge instructions and keep the area around the suction bulb clean. If you develop fevers, discharge around the drain site, or worsening pain please see your PCP. - You have a follow-up appointment on October 20 with your [facility] hematology team. - Please follow-up with [facility] GI service scheduling to schedule your next colonoscopy. - ID service scheduling will call you to set up a follow-up appointment. Please reach out if you are not contacted over the next two weeks. General Instructions INTERVENTIONAL RADIOLOGY DRAIN CARE INSTRUCTIONS Drains help to keep fluid from collecting by removing the extra blood and fluid from under the skinor from an abscess within the body. A drain is temporary. It stays in place until the drainage has slowed down or stopped. Your Provider will decide when each drain should be removed. This is usuallyafter each drain has 30cc or less in 24 hours for 2-3 days in a row. You will then be scheduled for what is called a Sinogram to check and see if the fluid collection has gotten smaller. How do I care for the drains at home? Pin your drain/s to your clothing by using a safety pin through the plastic loop on the top of the bulb. If the drain is not attached to your clothing, it may pull out from under your skin. Also, a drain usually feels more comfortable when it???s attached. To care for the drain at home, you will have to empty the drain, ???strip?? the drain tubing, and change the dressing if applicable. * See the following information on instructions on how to do this. You will go home with a dressing over the insertion site. Usually, Visiting Nurses are set up to show you how to change the dressing and care for the drain. They may teach a family member if they arewilling. The dressing needs to only be change once a week provided there is no leakage around the tube. What problems may I have with my drain? The bulb is not compressed- The bulb may not be squeezed tightly enough, the plug may not be closed securely, or the tube has slipped out a bit and is leaking. Follow the instructions on how to empty the drain. If the bulb remains expanded, then notify your doctor or nurse during business hours. ??? No drainage or sudden decrease in amount of drainage- This may be due to a plug in the drain. Please notify your doctor or nurse during business hours. ??? The tube accidentally falls out- If this happens, place a dry gauze dressing over the drain site and notify your doctor or nurse during business hours. ??? Increased redness, swelling, or heat around the tube insertion site- This may be a sign of infection. Take your temperature: if it is higher than 101F or 38.8C, call your doctor or nurse immediately. Otherwise, notify your doctor or nurse during business hours and keep the dressing clean and dry. How to Empty Your Drain and flush drain Note: Wash your hands thoroughly before emptying your drain(s). Unpin the drain from your clothing. 1. Turn the white stopcock so it is not parallel (in line) with the tubing. 2. Unscrew the tubing with the bulb attached from stopcock. Make sure you keep everything clean. 3. Attach the syringe with sterile saline to the stopcock. 4. Inject saline per MD order, 3-5 cc's. Forward flush only, do not aspirate back. 5. Re-attach the tubing with the bulb to the stopcock. 6. Invert the bulb and pull open the plug. 7. Have the plastic measuring cup from the hospital ready to collect and measure the drainage. Please measure the output at the same time every 24 hours and record the amount. 8. Turn the drain upside down and squeeze the contents of the bulb into the measuring cup. Be sure to empty the bulb as completely as possible. Flush the contents in the toilet. 9. Use the drain output log chart to record the amount of drainage twice a day or any time the bulbis full. Record the total for 24 hours for each drain you have. 10. If you have more than one drain, remember to record the drainage from each drain separately. 11. To prevent infection, do not let the stopper or top of the bottle touch the measuring cup or any other surface. 1. 2. Use one hand to squeeze all of the air from the drain. With the drain still squeezed, use your other hand to replace the top. This creates the suction necessary to remove the fluids from your body. 3. Pin the drain back on your clothing to avoid pulling it out accidently. 4. Wash your hands again. Remember to wash your hands before and after the procedure to reduce the risk of infection. Flushing the Drain: Your doctor may want the drain to be flushed once or twice daily to keep the fluid from plugging the drain. Flush the drain with 3-5 cc daily with the syringes supplied to you. FORWARD FLUSH ONLY, DO NOT ASPIRATE BACK. When to call the Interventional Radiology Department: Please call with any questions or concerns. If it is during regular office hours, please call [phone]. If it is after regular office hours, or on weekends or holidays, please call [phone] and ask to speak to the Lead Android Developer insulation worker apprentice for Interventional Radiology. XX You have received medication during your procedure to help lessen anxiety and keep you comfortable. These medications affect judgement and reaction time. We [...] occurs, please contact your M. D. Revised 12/25/18 Drainage Record NAME: Date of Surgery: Date: Time: If more than one drain, which one: Drainage Amount (per drain) Total Amount (per drain; in 24 hours) APPOINTMENTS: YOU HAVE A HOSPITAL FOLLOW UP WITH YOUR PRIMARY CARE PROVIDER, DR. CHATTERJEE, 09/09/19 11:00 Future Appointments and Orders Future Appointments and Orders Future Appointments Provider Department Dept Phone 10/21/2019 10:00 AM Radha Cooper, STAFF OCCUPATIONAL THERAPIST; Lee Ann Jay MD Hematology/Oncology at [facility] Arrive at: [facility] [[email or web address]] door at end of hallway [phone] Future Orders Complete By Expires IR Drain Check/Change/Remove [[id number] Custom] 10/03/2019 (Approximate) 04/03/2020 Process Instructions: Scheduling Instructions: Questions: Where will study be performed?: [facility] Radiology Reason for exam and clinical history: CT-guided drain placed in liver abscess on 09/01 Clinical information / chaparro questions: Exam/Procedure requested: What labs need to be collected during imaging study?: Does patient require sedation?: GA rationale: Requested Time: Date of injury if applicable: Is the patient on anticoagulant / anitplatelet therapy ?: No OPAT: Order / Recommendation for Post Discharge IV Antibiotic Management [[id number] CPT(R)] As directed Process Instructions: If no progress note charted, please enter Clinical details in comments. Scheduling Instructions: Comments: Please Fax all results to: OPAT Program Infectious Disease Section [facility], [place] [address] FAX: After hours, please contact the Infectious Disease Physician insulation worker apprentice at . If this order was signed greater than 72 hours prior to [facility] discharge, please call to confirm the accuracy of this order. Line care instructions Adult & Pedi CVC/PICC (Pedi>10kg) Flush protocol with medication infusion (SASH): Before Med: 10ml Normal Saline After Med: 10ml Normal Saline then 3 ml Heparin (10 units/ml) Additional Lumens: Flush 2x's daily & PRN 10ml Normal Saline then 3ml Heparin (10 units/ml) Flush protocol after blood withdrawal: Before: 10 ml Normal Saline Draw blood After: 20 ml Normal Saline then 3 ml Heparin (10 units/ml) Flush without med (each lumen): Flush 2x's daily & prn: 10 ml Normal Saline then 3 ml heparin (10 units/ml) Labs may be drawn off PICC line weekly and prn PICC Dressing Change weekly and PRN Please use CHG or Bio Patch Catheter Occlusion Management Instill reconstituted Cathflo 2mg per instillation (based on the volume of the catheter lumen). Mayrepeat x1 per occlusion incident. Questions: ID Diagnosis: Liver abscess s/p drain placement 09/02/19 Microorganisms being treated: Clostridium sp., B. fragilis, Peptostreptococcus sp., actinomyces sp. Antibiotic Allergies: No known antibiotic allergies Antibiotic: Ceftriaxone 2 g IV q 24 hr Metronidazole 500 mg PO q 8 hr Special Instructions: Start date: 09/02/2019 Anticipated stop date: 09/30/2019 Labs: Q Saturday: CBC/Diff, CMP Last documented weight (kg): 62.6 kg (138 lb) Last documented height (cm): 154.9 cm Infectious Disease Attending: Briana King DO Referral for Outpatient Antibiotics [[id number] CPT(R)] As directed Process Instructions: Scheduling Instructions: Comments: Flush per OPAT Protocol Questions: Vendor / contact information: [facility] Patient location post discharge: Home Service requested: IV ABX Therapy Start date: Responsible MD post discharge contact info: PCP Referral to Home Health - at DISCHARGE [[id number] CPT(R)] As directed Process Instructions: Scheduling Instructions: Comments: DOCUMENTATION FOR VNA SERVICES (INCLUDING THOSE PATIENTS WITH MEDICARE COVERAGE REQUIRING HOME VNA SERVICES AND/OR HOSPICE SERVICES) PATIENT'S LOCATION: Leti Parry [address] [place] [phone] (home) Cell: Telephone Information: Direct Customer Service Representative's Name: Patient In discussion with the attending physician, it is certified that this patient is under their care and that they, or a Nurse Practitioner,Clinical Nurse specialist or Physician Fire Information Officer who is working directly with them, had a face to face encounter that meets the physician face to face encounter requirements with this patient on 09/07/2019 The encounter with the patient was in whole, or in part, for the following medical condition, whichis the primary reason for home health care services: VNA In discussion with the provider, it is certified that, based on their findings, the following services are medically necessary for home health services. To provide the following care/treatments with the clinical findings supporting the need for services as follows: HOME CARE ORDERS: RN ORDERS:Assess wound or incision, vital signs, cardiopulmonary status, nutrition, hydration, elimination, meds effectiveness and management; reinforce education re health issues IV ABX therapy ceftriaxone, provide teaching and education, PICC Line dressing care and assessment. PT ORDERS: Continue rehab for endurance, gait stability and strength with mobility and transfers. Home safety evaluation. Home exercise program if appropriate. OT: assess and continue rehab for managing ADL's. DOWELER: Assist with ADLS HOME HEALTH CARE AGENCY: [facility]. PHONE: [phone] FAX: [phone] Start of care: Day of Discharge FOR MEDICARE ONLY: (please delete this section if not Medicare) In discussion with the attending physician, it is certified that the clinical findings support thatthis patient is homebound because absences from home require considerable and taxing effort due to:surgical drain, on-going infection requiring IV abx Please note that any additional orders needs or changes will need to be obtained from this patient's PCP: MD Sushant Garg [address] / [facility] [id number] All A agencies which cover the area of patient's residence have been reviewed, either verbally nadine writing, and patient/family have chosen the home health care agency noted Questions: Agency name and contact information: [facility] Patient location post discharge: Home What services are requested: Registered Nurse Start date: Responsible MD post discharge contact info: PCP Discharge References/Attachments Surgical Drain Care (Tanzanian) PICC (Peripherally Inserted Central Catheter) (Tanzanian) * Rizwan Lama - 09/07/2019 11:50 AM EDT Images from the original note were not included. Discharge Summary Patient Name: Leti Parry Patient Age: 68 y.o. Language: Tanzanian Race: White Ethnicity: Not nor Admit date: 09/01/2019 Discharge date and time: 09/07/2019 at 2PM Attending Physician: Terrance Santana MD Discharge Physician: Terrance Santana MD Follow-up Recommendations for Providers: Patient has hepatic abscess drain with suction-bulb in place. She is scheduled for drain-check F/U with [facility] radiology on October 02. Please monitor for signs of drain compromise, infection, or worsening pain. Patient has follow-up appointment with Hematology service on October 21, 2019. Weekly CBC and BMP to monitor infection and leukocytes following neupogen injection (09/05/19) in the interim is advised. Inpatient Provider Contact Information: For questions regarding this document or issues relating to this hospitalization on the Medical Service, please contact your inpatient physician through the [facility] Eligibility Specialist . Issues afterhours and on weekends will be handled by the Hospitalist staff on-call. Discharge Diagnoses (Hospital Problems) and Secondary Diagnoses (Chronic Problems): Active Hospital Problems Diagnosis ??? Hepatic abscess Resolved Hospital Problems No resolved problems to display. Active Non-Hospital Problems Diagnosis ??? Ulcerative colitis ??? Leukopenia Operations/Major Procedures: CT-guided liver aspiration (09/02/19): removed 5cc of purulent fluid Flexible Sigmoidoscopy (09/02/19) canceled. History of Presentation: Ms. Parry was initially doing well after her discharge from the hospital. However, over the past week, has been developing intermittent fevers, measured Tm 102.2 today, and typically occurring in the morning. Fevers tend to resolve with spontaneously or with a dose of tylenol. She denies abd pain.No nausea or vomiting. She notes her BMs are formed, non-bloody but slightly burning, and has been having about 3-4 BMs a day (improved from her hospitalization but more than typical). Her appetite has been robust and has tolerated oral intake well. ?? She has been tapering her prednisone. Recently decreased to 20mg daily and will decrease to 10mg on09/07 ?? She denies cough, dyspnea, chest pain. No rash, myalgias, or arthralgias. No sick exposures. ?? She saw her PCP 08/23 for this. Then hem on 08/25. Returned to ED 08/27 - Her course of ciprofloxacin was extended and Augmentin was added. Hospital Course: #Hepatic abscess On admission, Ms. Parry was made NPO and received LR fluids. CT-guided percutaneous hepatic abscess aspiration on 09/01 drained 5ccs of purulent fluid. Patient's pain was well-managed on IV hydromorphone and acetaminophen initially, then acetaminophen and heating pads alone. Initial abscess fluid cultures showed many GPCs and few GNRs. Patient was started on empiric IV piperacillin-tazobactam. Further culture results showed polymicrobial infection (results below) and patient was placed on IV ceftriaxone and PO metronidazole. Following a discussion with ID service, patient opted to continue oral metronidazole and parenteral ceftriaxone on an outpatient basis and received a PICC line on day of discharge. #Chronic neutropenia #Large granular lymphocytic leukemia Patient's white count downtrended over her stay until she became severely neutropenic on 09/04 with an (ANC 420). She received 480mcg GCSF with good response. WBC on day of discharge of 7.4 (ANC 4,830). Micro: - Aerobic fluid cx: Few actinomyces species - Aerobic gram stain: Many Neutrophils seen Many Gram Positive Cocci seen Few Gram Negative Rods seen Rare Gram Positive Rods seen - Anaerobic fluid cx: Moderate Clostridium species, not C perfringens Moderate Bacteroides fragilis Group Moderate Peptostreptococcus species Vital Signs at Discharge: BP: 139/81, Heart Rate: 61, Temp: 36.8 ??C (98.2 ??F), Resp: 16, Weight: 62.6 kg (138 lb) (09/01/191952) Functional and Cognitive Status: Unchanged from baseline, mentally lucid Important Studies and Lab Data: Labs: Recent Results (from the past 72 hour(s)) Hemogram Result Value Ref Range WBC 1.5 (CRIT) 4.0 - 9.5 x10(3)/mcL RBC 3.95 (L) 4.00 - 5.21 x10(6)/mcL Hemoglobin 11.0 (L) 11.7 - 15.5 gm/dL Hematocrit 35.8 35.7 - 45.8 % MCV 90.6 82.6 - 94.4 fL MCH 27.8 27.1 - 32.0 pg MCHC 30.7 (L) 31.7 - 35.0 gm/dL Platelets 266 145 - 357 x10(3)/mcL RDWSD 45.3 37.0 - 46.0 fL RDWCV 13.7 11.5 - 14.1 % MPV 9.7 7.6 - 12.9 fL nRBC % Auto 0.0 % nRBC Abs Auto 0.000 0.000 - 0.000 x10(3)/mcL Differential, Automated Result Value Ref Range Neutrophils % 27.5 % Neutr Abs (ANC) 0.42 (CRIT) 1.70 - 6.10 x10(3)/mcL Lymphocytes % 46.4 % Lymphocytes Abs 0.7 (L) 0.9 - 3.2 x10(3)/mcL Monocytes % 17.6 % Monocyte Abs 0.3 0.3 - 0.9 x10(3)/mcL Eosinophils % 0.0 % Eosinophils Abs 0.0 0.0 - 0.4 x10(3)/mcL Basophils % 0.0 % Basophils Abs 0.0 0.0 - 0.1 x10(3)/mcL Immature Gran % 8.50 % Elizabeth Gran Abs 0.13 (H) 0.00 - 0.04 x10(3)/mcL Scan, Peripheral Blood Result Value Ref Range Plat Estimate Normal RBC Morphology Abnormal Ovalocytes 1-5 /HPF Hemogram Result Value Ref Range WBC 11.2 (H) 4.0 - 9.5 x10(3)/mcL RBC 4.38 4.00 - 5.21 x10(6)/mcL Hemoglobin 12.3 11.7 - 15.5 gm/dL Hematocrit 39.6 35.7 - 45.8 % MCV 90.4 82.6 - 94.4 fL MCH 28.1 27.1 - 32.0 pg MCHC 31.1 (L) 31.7 - 35.0 gm/dL Platelets 300 145 - 357 x10(3)/mcL RDWSD 46.3 (H) 37.0 - 46.0 fL RDWCV 14.0 11.5 - 14.1 % MPV 10.0 7.6 - 12.9 fL nRBC % Auto 0.0 % nRBC Abs Auto 0.000 0.000 - 0.000 x10(3)/mcL Differential, Automated Result Value Ref Range Neutrophils % 75.8 % Neutr Abs (ANC) 8.52 (H) 1.70 - 6.10 x10(3)/mcL Lymphocytes % 10.1 % Lymphocytes Abs 1.1 0.9 - 3.2 x10(3)/mcL Monocytes % 7.5 % Monocyte Abs 0.8 0.3 - 0.9 x10(3)/mcL Eosinophils % 0.1 % Eosinophils Abs 0.0 0.0 - 0.4 x10(3)/mcL Basophils % 0.4 % Basophils Abs 0.0 0.0 - 0.1 x10(3)/mcL Immature Gran % 6.10 % Elizabeth Gran Abs 0.69 (H) 0.00 - 0.04 x10(3)/mcL Hemogram Result Value Ref Range WBC 7.4 4.0 - 9.5 x10(3)/mcL RBC 4.23 4.00 - 5.21 x10(6)/mcL Hemoglobin 11.7 11.7 - 15.5 gm/dL Hematocrit 38.0 35.7 - 45.8 % MCV 89.8 82.6 - 94.4 fL MCH 27.7 27.1 - 32.0 pg MCHC 30.8 (L) 31.7 - 35.0 gm/dL Platelets 306 145 - 357 x10(3)/mcL RDWSD 46.4 (H) 37.0 - 46.0 fL RDWCV 14.3 (H) 11.5 - 14.1 % MPV 9.9 7.6 - 12.9 fL nRBC % Auto 0.0 % nRBC Abs Auto 0.000 0.000 - 0.000 x10(3)/mcL Differential, Automated Result Value Ref Range Neutrophils % 65.2 % Neutr Abs (ANC) 4.83 1.70 - 6.10 x10(3)/mcL Lymphocytes % 20.6 % Lymphocytes Abs 1.5 0.9 - 3.2 x10(3)/mcL Monocytes % 6.7 % Monocyte Abs 0.5 0.3 - 0.9 x10(3)/mcL Eosinophils % 0.1 % Eosinophils Abs 0.0 0.0 - 0.4 x10(3)/mcL Basophils % 0.1 % Basophils Abs 0.0 0.0 - 0.1 x10(3)/mcL Immature Gran % 7.30 % Elizabeth Gran Abs 0.54 (H) 0.00 - 0.04 x10(3)/mcL Studies: Results for orders placed or performed during the hospital encounter of 09/01/19 CT Guided Aspiration Liver (Exam End: 09/02/2019 1:33 PM) Impression Impression: Successful CT-guided drain placement in a hepatic fluid collection. Plan/disposition: 1) To Angio recovery room, may discharge to floor when meets criteria. 2) Forward flush every 12 hours with 3-5 mL of normal saline. Record outputs daily. 3) Patient to return in 4 weeks for fluoroscopic drain check. Eligibility Specialist(s): Resident/Fellow: Johan Hernandez M.D. Attending: Terrance Gunter M.D. Procedure/Teaching Attestation: I was present for the procedure. Moderate Sedation Attestation: I was present during the intra-service time as documented by IR nurse. Preliminary report signed by: Johan Hernandez at 09/02/2019 2:11 PM I have personally reviewed the image(s) and the resident's interpretation and agree with the findings, Terrance Gunter at 09/02/2019 4:02 PM Thank you for letting us participate in the care of this patient. For questions regarding this report, please contact the number below. Electronically signed by: Terrance Gunter, [facility] ([phone]), at 09/02/2019 4:02 PM XR PICC Placement Over 5 Years with Imaging Guidance (IV Team) (Exam End: 09/07/2019 9:43 AM) Impression Appropriate RIGHT PICC placement Thank you for letting us participate in the care of this patient. For questions regarding this report, please contact the number below. Electronically signed by: Jodee Ortega [facility] ([phone]), at 09/07/2019 9:45 AM Pending Studies and Lab Data: no studies pending Discharge Conditions/Prognosis: Resolving hepatic abscess (collitis-associated) discharged on OPAT/PO antibiotics Discharge to: home Updated Allergies/ADRs: Allergies Allergen Reactions ??? Benzalkonium Chloride Immunizations Given this Hospitalization: There is no immunization history on file for this patient. Discharge Medications: Your Medications UNREVIEWED medications - Discuss With Your Provider Dose Details amoxicillin-clavulanate 875-125 mg Tab Commonly known as: Augmentin Take 1 tablet by mouth 2 times daily. 1 tablet Refills: 0 ciprofloxacin 500 mg Tab Commonly known as: Cipro Take 500 mg by mouth 2 times daily. 500 mg Refills: 0 pantoprazole EC 20 mg Tbec Commonly known as: Protonix Take 20 mg by mouth daily. 20 mg Refills: 0 predniSONE 10 mg Tab Commonly known as: Deltasone Take 30 mg by mouth daily. Prednisone taper every week decreased 10 mg 30 mg Refills: 0 UP4 PROBIOTICS ADULT ORAL Take by mouth 3 times daily. Refills: 0 VITAMIN D ORAL Refills: 0 Smoking Status at Discharge: Social History Tobacco Use Smoking Status Never Smoker Smokeless Tobacco Never Used Instructions Given to Patient at Discharge: Patient Instructions Please make sure to keep area around suction bulb clean. You will follow up General Instructions INTERVENTIONAL RADIOLOGY DRAIN CARE INSTRUCTIONS Drains help to keep fluid from collecting by removing the extra blood and fluid from under the skinor from an abscess within the body. A drain is temporary. It stays in place until the drainage has slowed down or stopped. Your Provider will decide when each drain should be removed. This is usuallyafter each drain has 30cc or less in 24 hours for 2-3 days in a row. You will then be scheduled for what is called a Sinogram to check and see if the fluid collection has gotten smaller. How do I care for the drains at home? Pin your drain/s to your clothing by using a safety pin through the plastic loop on the top of the bulb. If the drain is not attached to your clothing, it may pull out from under your skin. Also, a drain usually feels more comfortable when it???s attached. To care for the drain at home, you will have to empty the drain, ???strip?? the drain tubing, and change the dressing if applicable. * See the following information on instructions on how to do this. You will go home with a dressing over the insertion site. Usually, Visiting Nurses are set up to show you how to change the dressing and care for the drain. They may teach a family member if they arewilling. The dressing needs to only be change once a week provided there is no leakage around the tube. What problems may I have with my drain? The bulb is not compressed- The bulb may not be squeezed tightly enough, the plug may not be closed securely, or the tube has slipped out a bit and is leaking. Follow the instructions on how to empty the drain. If the bulb remains expanded, then notify your doctor or nurse during business hours. ??? No drainage or sudden decrease in amount of drainage- This may be due to a plug in the drain. Please notify your doctor or nurse during business hours. ??? The tube accidentally falls out- If this happens, place a dry gauze dressing over the drain site and notify your doctor or nurse during business hours. ??? Increased redness, swelling, or heat around the tube insertion site- This may be a sign of infection. Take your temperature: if it is higher than 101F or 38.8C, call your doctor or nurse immediately. Otherwise, notify your doctor or nurse during business hours and keep the dressing clean and dry. How to Empty Your Drain and flush drain Note: Wash your hands thoroughly before emptying your drain(s). Unpin the drain from your clothing. 1. Turn the white stopcock so it is not parallel (in line) with the tubing. 2. Unscrew the tubing with the bulb attached from stopcock. Make sure you keep everything clean. 3. Attach the syringe with sterile saline to the stopcock. 4. Inject saline per MD order, 3-5 cc's. Forward flush only, do not aspirate back. 5. Re-attach the tubing with the bulb to the stopcock. 6. Invert the bulb and pull open the plug. 7. Have the plastic measuring cup from the hospital ready to collect and measure the drainage. Please measure the output at the same time every 24 hours and record the amount. 8. Turn the drain upside down and squeeze the contents of the bulb into the measuring cup. Be sure to empty the bulb as completely as possible. Flush the contents in the toilet. 9. Use the drain output log chart to record the amount of drainage twice a day or any time the bulbis full. Record the total for 24 hours for each drain you have. 10. If you have more than one drain, remember to record the drainage from each drain separately. 11. To prevent infection, do not let the stopper or top of the bottle touch the measuring cup or any other surface. 1. 2. Use one hand to squeeze all of the air from the drain. With the drain still squeezed, use your other hand to replace the top. This creates the suction necessary to remove the fluids from your body. 3. Pin the drain back on your clothing to avoid pulling it out accidently. 4. Wash your hands again. Remember to wash your hands before and after the procedure to reduce the risk of infection. Flushing the Drain: Your doctor may want the drain to be flushed once or twice daily to keep the fluid from plugging the drain. Flush the drain with 3-5 cc daily with the syringes supplied to you. FORWARD FLUSH ONLY, DO NOT ASPIRATE BACK. When to call the Interventional Radiology Department: Please call with any questions or concerns. If it is during regular office hours, please call [phone]. If it is after regular office hours, or on weekends or holidays, please call [phone] and ask to speak to the Lead Android Developer insulation worker apprentice for Interventional Radiology. XX You have received medication during your procedure to help lessen anxiety and keep you comfortable. These medications affect judgement and reaction time. We [...] occurs, please contact your M. D. Revised 12/25/18 Drainage Record NAME: Date of Surgery: Date: Time: If more than one drain, which one: Drainage Amount (per drain) Total Amount (per drain; in 24 hours) APPOINTMENTS: YOU HAVE A HOSPITAL FOLLOW UP WITH YOUR PRIMARY CARE PROVIDER, DR. CHATTERJEE, 09/09/19 11:00 Future Appointments and Orders Future Appointments and Orders Future Appointments Provider Department Dept Phone 10/21/2019 10:00 AM Radha oCoper, JAYLEN; Lee Ann Jay MD Hematology/Oncology at [facility] Arrive at: [facility] [[email or web address]] door at end of hallway [phone] Future Orders Complete By Expires IR Drain Check/Change/Remove [[id number] Custom] 10/03/2019 (Approximate) 04/03/2020 Process Instructions: Scheduling Instructions: Questions: Where will study be performed?: [facility] Radiology Reason for exam and clinical history: CT-guided drain placed in liver abscess on 09/01 Clinical information / chaparro questions: Exam/Procedure requested: What labs need to be collected during imaging study?: Does patient require sedation?: GA rationale: Requested Time: Date of injury if applicable: Is the patient on anticoagulant / anitplatelet therapy ?: No OPAT: Order / Recommendation for Post Discharge IV Antibiotic Management [OAL975 CPT(R)] As directed Process Instructions: If no progress note charted, please enter Clinical details in comments. Scheduling Instructions: Comments: Please Fax all results to: OPAT Program Infectious Disease Section [facility], [place] [address] FAX: After hours, please contact the Infectious Disease Physician insulation worker apprentice at . If this order was signed greater than 72 hours prior to [facility] discharge, please call to confirm the accuracy of this order. Line care instructions Adult & Pedi CVC/PICC (Pedi>10kg) Flush protocol with medication infusion (SASH): Before Med: 10ml Normal Saline After Med: 10ml Normal Saline then 3 ml Heparin (10 units/ml) Additional Lumens: Flush 2x's daily & PRN 10ml Normal Saline then 3ml Heparin (10 units/ml) Flush protocol after blood withdrawal: Before: 10 ml Normal Saline Draw blood After: 20 ml Normal Saline then 3 ml Heparin (10 units/ml) Flush without med (each lumen): Flush 2x's daily & prn: 10 ml Normal Saline then 3 ml heparin (10 units/ml) Labs may be drawn off PICC line weekly and prn PICC Dressing Change weekly and PRN Please use CHG or Bio Patch Catheter Occlusion Management Instill reconstituted Cathflo 2mg per instillation (based on the volume of the catheter lumen). Mayrepeat x1 per occlusion incident. Questions: ID Diagnosis: Liver abscess s/p drain placement 09/02/19 Microorganisms being treated: Clostridium sp., B. fragilis, Peptostreptococcus sp., actinomyces sp. Antibiotic Allergies: No known antibiotic allergies Antibiotic: Ceftriaxone 2 g IV q 24 hr Metronidazole 500 mg PO q 8 hr Special Instructions: Start date: 09/02/2019 Anticipated stop date: 09/30/2019 Labs: Q Saturday: CBC/Diff, CMP Last documented weight (kg): 62.6 kg (138 lb) Last documented height (cm): 154.9 cm Infectious Disease Attending: Briana King DO Discharge References/Attachments Surgical Drain Care (Tanzanian) PICC (Peripherally Inserted Central Catheter) (Tanzanian) Associated attestation - Terrance Santana MD - 09/08/2019 4:54 PM EDT I agree with the dc summary written by Rizwan Lama, MS4. Please see my separate dc summary for any additions or amendments. Terrance Santana MD documented in this encounter Discharge Instructions * Discharge Instructions* [place] MA - 09/03/2019 11:43 AM EDT Images from the original note were not included. INTERVENTIONAL RADIOLOGY DRAIN CARE INSTRUCTIONS Drains help to keep fluid from collecting by removing the extra blood and fluid from under the skinor from an abscess within the body. A drain is temporary. It stays in place until the drainage has slowed down or stopped. Your Provider will decide when each drain should be removed. This is usuallyafter each drain has 30cc or less in 24 hours for 2-3 days in a row. You will then be scheduled for what is called a Sinogram to check and see if the fluid collection has gotten smaller. How do I care for the drains at home? Pin your drain/s to your clothing by using a safety pin through the plastic loop on the top of the bulb. If the drain is not attached to your clothing, it may pull out from under your skin. Also, a drain usually feels more comfortable when it???s attached. To care for the drain at home, you will have to empty the drain, ???strip?? the drain tubing, and change the dressing if applicable. * See the following information on instructions on how to do this. You will go home with a dressing over the insertion site. Usually, Visiting Nurses are set up to show you how to change the dressing and care for the drain. They may teach a family member if they arewilling. The dressing needs to only be change once a week provided there is no leakage around the tube. What problems may I have with my drain? The bulb is not compressed- The bulb may not be squeezed tightly enough, the plug may not be closed securely, or the tube has slipped out a bit and is leaking. Follow the instructions on how to empty the drain. If the bulb remains expanded, then notify your doctor or nurse during business hours. ??? No drainage or sudden decrease in amount of drainage- This may be due to a plug in the drain. Please notify your doctor or nurse during business hours. ??? The tube accidentally falls out- If this happens, place a dry gauze dressing over the drain site and notify your doctor or nurse during business hours. ??? Increased redness, swelling, or heat around the tube insertion site- This may be a sign of infection. Take your temperature: if it is higher than 101F or 38.8C, call your doctor or nurse immediately. Otherwise, notify your doctor or nurse during business hours and keep the dressing clean and dry. How to Empty Your Drain and flush drain Note: Wash your hands thoroughly before emptying your drain(s). Unpin the drain from your clothing. 1. Turn the white stopcock so it is not parallel (in line) with the tubing. 2. Unscrew the tubing with the bulb attached from stopcock. Make sure you keep everything clean. 3. Attach the syringe with sterile saline to the stopcock. 4. Inject saline per MD order, 3-5 cc's. Forward flush only, do not aspirate back. 5. Re-attach the tubing with the bulb to the stopcock. 6. Invert the bulb and pull open the plug. 7. Have the plastic measuring cup from the hospital ready to collect and measure the drainage. Please measure the output at the same time every 24 hours and record the amount. 8. Turn the drain upside down and squeeze the contents of the bulb into the measuring cup. Be sure to empty the bulb as completely as possible. Flush the contents in the toilet. 9. Use the drain output log chart to record the amount of drainage twice a day or any time the bulbis full. Record the total for 24 hours for each drain you have. 10. If you have more than one drain, remember to record the drainage from each drain separately. 11. To prevent infection, do not let the stopper or top of the bottle touch the measuring cup or any other surface. 1. 2. Use one hand to squeeze all of the air from the drain. With the drain still squeezed, use your other hand to replace the top. This creates the suction necessary to remove the fluids from your body. 3. Pin the drain back on your clothing to avoid pulling it out accidently. 4. Wash your hands again. Remember to wash your hands before and after the procedure to reduce the risk of infection. Flushing the Drain: Your doctor may want the drain to be flushed once or twice daily to keep the fluid from plugging the drain. Flush the drain with 3-5 cc daily with the syringes supplied to you. FORWARD FLUSH ONLY, DO NOT ASPIRATE BACK. When to call the Interventional Radiology Department: Please call with any questions or concerns. If it is during regular office hours, please call [phone]. If it is after regular office hours, or on weekends or holidays, please call [phone] and ask to speak to the Lead Android Developer insulation worker apprentice for Interventional Radiology. XX You have received medication during your procedure to help lessen anxiety and keep you comfortable. These medications affect judgement and reaction time. We [...] occurs, please contact your M. D. Revised 12/25/18 Drainage Record NAME: Date of Surgery: Date: Time: If more than one drain, which one: Drainage Amount (per drain) Total Amount (per drain; in 24 hours) APPOINTMENTS: YOU HAVE A HOSPITAL FOLLOW UP WITH YOUR PRIMARY CARE PROVIDER, DR. CHATTERJEE, 09/09/19 11:00 * Patient Instructions* Terrance Santana MD - 09/03/2019 10:32 AM EDT You were hospitalized for treatment of a hepatic abscess. You had a procedure called a CT-guided drainage performed. Cultures from this fluid grew a variety of bacteria. You are treated with antibiotics to kill this bacteria. We have arranged for continuation of outpatient antibiotics, including intravenous antibiotics to continue to treat this infection. Currently, we are anticipating 4 weeks ofantibiotic therapy from the time of drain placement which was on 09/01. You will need to follow-up with the infectious disease clinic within 2 to [address] scan of your liver done to reassess the abscess. The infectious disease clinic should reach out to you for scheduling. Please see walter daly for additional follow-up instructions - Please decrease your prednisone taper to 10mg on SaturdaySeptember 07. You have a follow-up appointment scheduled for the following day, September 08, with your PCP, Dr. Chatterjee. - You have a follow-up appointment with [facility] radiology for a drain check on October 02. Please make sure to do flushes as outlined on discharge instructions and keep the area around the suction bulb clean. If you develop fevers, discharge around the drain site, or worsening pain please see your PCP. - You have a follow-up appointment on October 20 with your [facility] hematology team. - Please follow-up with [facility] GI service scheduling to schedule your next colonoscopy. - ID service scheduling will call you to set up a follow-up appointment. Please reach out if you are not contacted over the next two weeks. * Attachments The following attachments cannot be sent through Care Everywhere. * Surgical Drain Care (Tanzanian) * PICC (Peripherally Inserted Central Catheter) (Tanzanian) documented in this encounter Medications at Time of Discharge Medication Sig Dispensed Refills Start Date End Date cefTRIAXone (ROCEPHIN) 2 gram Recon Soln Inject 20 mLs into the vein daily. 09/07/2019 09/28/2019 metroNIDAZOLE (Flagyl) 500 mg Tablet Take 1 tablet by mouth 3 times daily for 22 days. 66 tablet 09/07/2019 09/28/2019 pantoprazole EC (Protonix) 20 mg Tablet, Delayed Release (E.C.) Take 20 mg by mouth daily. 10/14/2019 predniSONE (Deltasone) 10 mg Tablet Take 30 mg by mouth daily. Prednisone taper every week decreased 10 mg 10/14/2019 L.acidophil/L.plantar/ Bifido 7 (UP4 PROBIOTICS ADULT ORAL) Take by mouth 3 times daily. 04/27/2020 ERGOCALCIFEROL, VITAMIN D2, (VITAMIN D ORAL) 06/28/2008 10/14/2019 documented as of this encounter Progress Notes * Germaine Rivera RN - 09/07/2019 4:25 PM EDT Pt d/c this afternoon to home. Education on drain care. PICC care, done. Pt and verbalized understanding od discharge instructions. Medication reviewed. Belongings sent home with pt. Pt and left by foot outside the main entrance. * Maritza Jalloh RN - 09/07/2019 3:27 PM EDT Infusion Resource [facility] Follow up Note: DONNA Confirmed with Ye From [facility] that patient will be seen 09/08/2019. Hospital teaching was completed with donna cadd drafter of IV supplies will occur to meet patient's need for SOC on Saturday09/08/2019 Infusion [facility] [phone] * Liyah Rodriguez RN - 09/07/2019 11:06 AM EDT Chart reviewed, care reviewed with primary team and at interdisciplinary rounds. Patient may be medically ready for discharge to home today pending IV ABX teaching. Both patient and will be taught. Patient made aware there may be an out of pocket cost for the IV ABX therapy. Will be transported via family. An Important Message From Medicare about Your Rights letter verbally reviewed with patient and acknowledged understanding. Patient declined copy. RNCM received communication from Brandon in OPAT, she reports she has done the teach and per ID patient is ready to go. RNCM made Alejandra at [facility] aware. This plan was formulated with input from patient, family and team. All are in agreement with plan. * Liyah Rodriguez RN - 09/07/2019 9:08 AM EDT Office of Care Management/Glass Finisher(CM) Home IV Antibiotic Therapy Referral Note. Report received from Dr. Santana that patient will require continued home IV antibiotic therapy afterdischarge from the hospital. Met with patient/family to discuss vendor and home health RN agency choices for home IV antibiotic therapy. Reviewed Home Infusion Vendors and Home Health Agencies that serve patient???s address and accept patient???s insurance. Home Health Agency: Patient requested referral to [facility] PHONE: [phone] FAX: [phone] Referrals sent via [employer]. Home Infusion Vendor: Patient requested referral to: [place], [place] or Referrals sent via [employer]. Diabetic Status: Patient is not a diabetic IV access: Single Lumen cephalic vein (lateral side of arm) left 22 gauge Date placed: 09/06/2019 * Briana King DO - 09/06/2019 4:40 PM EDT Follow-up Inpatient ID Consult Note ID: [id number] with UC presenting with liver abscess and bacteremia Antibiotics: - Zosyn 24hr events: afebrile, got neupogen Subjective: feeling well, denies fever/chills, nausea/vomiting/diarrhea or abdominal pain Physical Exam: Last value Range last 48 hrs Temperature Temp: 36.8 ??C (98.2 ??F) Temp: [36.5 ??C (97.7 ??F)-37 ??C (98.6 ??F)] Heart Rate Heart Rate: 61 Heart Rate: [58-61] Blood Pressure BP: 91/48 BP: (91-113)/(48-72) Respiratory Rate Resp: 16 Resp: [14-16] SpO2 SpO2: 96 % SpO2: [95 %-97 %] General Well appearing Neuro A&O x 3. Abdomen Soft, nontender, nondistended, + bowel sounds. Liver drain with yellow serous fluid Labs: Recent Labs 09/06/19 0950 WBC 11.2* RBC 4.38 HGB 12.3 HCT 39.6 MCV 90.4 MCH 28.1 MCHC 31.1* PLATELET 300 RDWCV 14.0 Micro: Culture Date Results Blood cx 08/11 Ecoli (R amp, amp/sulb) and Strep constellatus Blood cx 08/13 No growth Blood cx 07/31 No growth Liver abscess 09/01 Actinomyces, Clostridium, Bacteroides, Peptostrep Impressions: 68F with UC not previously on any therapy, Recommendations: 68F with UC who has not been on any therapy who presented to [facility] at the beginning of August with evidence of colitis and polymicrobial bacteremia (Ecoli and Strep constellatus). She was discharged on Ciprofloxacin and presents now with liver abscess. Also on high dose steroid for UC flare. IR drain was placed on 09/01 and cultures growing predominate anaerobes likely because she was suppressing allother gram negative organisms. Augmentin would have been a good oral option, however given Ecoli sensitivities would like to treat her with Ceftriaxone and Flagyl. Alternatively, could consider Augmentin plus Cipro but after discussion with patient she would rather go with IV given how long she has been dealing with this. Please place single lumen PICC. Will arrange for OPAT tomorrow. Will need follow up imaging to assess liver abscess in 2-4 weeks. - Stop Zosyn - Start Ceftriaxone 2g IV q24 - Start Flagyl 500mg PO TID - Duration of therapy 4 weeks from time of drain placement on 09/01 - Weekly CBC, CMP - Follow up in 2-4 weeks to reassess Discussed with team. Consult service will continue to follow patient. x Recommendations are above, please page if further consultation required. Briana King DO, MPH Infectious Disease * Terrance Santana MD - 09/06/2019 9:50 AM EDT Hospital Medicine Attending Daily Progress Note Admit Date: 09/01/2019 ( Hospital Day 4 days ) Active Hospital Problems Diagnosis ??? Hepatic abscess Resolved Hospital Problems No resolved problems to display. ID/CC: 68 y.o. 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 Pain under good control. No fevers or chills. Tolerating diet well, no nausea or vomiting. No chest pain, no dyspnea, no dysuria Physical Exam Vitals Range last 24 hrs Temperature Temp: [36.5 ??C (97.7 ??F)-36.8 ??C (98.2 ??F)] Heart Rate Heart Rate: -- Blood Pressure BP: (95-107)/(49-65) Respiratory Rate Resp: [14-16] SpO2 SpO2: [95 %-97 %] Intake/Output Summary (Last 24 hours) at 09/06/2019 0950 Last data filed at 09/05/2019 2141 Gross per 24 hour Intake 410 ml Output 13 ml Net 397 ml Patient Vitals for the past 168 hrs: Weight 09/01/191952 62.6 kg (138 lb) Weight: Last Weight: 62.6 kg (138 lb) Admit Weight: 62.6 kg Body mass index is 26.07 kg/m??. Gen: well-appearing, no acute distress, interactive HEENT: normocephalic, anicteric, EOMI, nares patent, OP clear without exudates or ulcers Neck: supple CV: JVP at the clavicle, regular rate and rhythm with normal s1/2, no murmurs, rubs, or gallops; radial and dorsalis pedis pulses are 2+ bilaterally Pulm: normal work of breathing, lungs are clear to auscultation bilaterally without focal wheezes, rales, or rhonchi Abd: soft, non-distended, non-tender to palpation with normoactive bowel sounds. Drain noted to right flank, site is clean/dry/intact and nontender to palpation Ext: no cyanosis or clubbing, no lower extremity edema bilaterally Skin: warm, well-perfused without rashes Neuro: alert and oriented to person, place, time; moving all extremities grossly with symmetric facies, fluent language Psych: euthymic, logical thinking Studies reviewed in eDH. Remarkable for the following: Labs: Pending Micro: No results found for: URINECULTURE Lab Results Component Value Date/Time GRAMSTAIN (A) 09/02/2019 1300 Many Neutrophils seen Many Gram Positive Cocci seen Few Gram Negative Rods seen Rare Gram Positive Rods seen BFCX Few Actinomyces species (A) 09/02/2019 1300 Lab Results Component Value Date/Time BLOODCX No growth at 4 days. 09/01/2019 2208 BLOODCX No growth at 4 days. 09/01/2019 2208 Inpatient Medications: Scheduled ??? sodium chloride 0.9 % (flush) 3-5 mL Intercatheter 2 times per day ??? piperacillin-tazobactam 3.375 g Intravenous Q8H ??? pantoprazole EC 20 mg Oral Daily ??? predniSONE 20 mg Oral Daily ??? sodium chloride 0.9 % (flush) 5 mL Intravenous BID ??? enoxaparin 40 mg Subcutaneous Nightly Continuous infusions: PRN: polyethylene glycoL (MIRALAX) oral powder, sodium chloride 0.9 % (flush), lidocaine, acetaminophen, ondansetron OR [DISCONTINUED] ondansetron, melatonin Assessment: 68 y.o. 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 Awaiting CBC results to guide Neupogen dosing today. If ANC remains below 1000, will re-dose Neupogen. Some initial results from fluid cultures with polymicrobial growth. All species should be covered by Zosyn. Awaiting final results and sensitivities for antibiotic planning. Still hopeful for oral antibiotic option Plan: #Hepatic abscess -s/p CT guided drainage -gram stain and cultures are polymicrobial -Cultures now growing Clostridium, Bacteroides, Peptostreptococcus, and actinomyces -Continue piperacillin tazobactam -narrow abx pending micro data, final antibiotic plan to be determined ?? #Ulcerative colitis -continue steroid taper pred (decrease to 10mg 09/07) -PPI for steroid taper -GI aware of admission, no further interventions this admission for her UC ?? #Large granular lymphocytic leukemia #Severe neutropenia -followed by Dr. Jay -s/p neupogen 08/15/19 -ANC 420 yesterday and received Neupogen x1 -awaiting CBC results today and will repeat Neupogen if ANC less than 1000 #Routine: -DVT Prophylaxis: Enoxaparin -Diet: Regular -Bowel meds as needed -Lines/Drain/Dumont: PIV -Code Status: Full IPI Certification I certify that I am a D-H credentialed attending provider with admitting privileges and that the patient meets or has met medical necessity to require an inpatient IPI level of care meeting a minimumof two midnights or is on the [facility] inpatient only procedure list (status C) due to: Ongoing need forIV antibiotics for hepatic abscess Terrance Santana MD Attending, Hospital Medicine Service Pager #[phone] 09/06/2019 * Terrance Enciso RN - 09/05/2019 11:14 PM EDT Patient Name: Leti Parry Patient Age: 68 y.o. Birthdate: 1950 Admit date: 09/01/2019 Attending Physician: Terrance Santana MD Patient refusing to receive enoxaparin, wear masimo. The reason pt gave for this refusal was I do not need the shot--I don't want to wear it. Nursing actions taken during this shift to address patient???s refusal included Education about importance of care Plan to address patient???s refusal include Nursing leadership notified * Terrance Santana MD - 09/05/2019 6:08 PM EDT [facility] Medicine Attending Daily Progress Note Admit Date: 09/01/2019 ( Hospital Day 3 days ) Active Hospital Problems Diagnosis ??? Hepatic abscess Resolved Hospital Problems No resolved problems to display. ID/CC: 68 y.o. 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 Pain under good control. No fevers or chills. Tolerating diet well, no nausea or vomiting. No chest pain, no dyspnea, no dysuria Physical Exam Vitals Range last 24 hrs Temperature Temp: [37 ??C (98.6 ??F)] Heart Rate Heart Rate: [58] Blood Pressure BP: (94)/(53) Respiratory Rate Resp: [16] SpO2 SpO2: [95 %-96 %] Intake/Output Summary (Last 24 hours) at 09/05/2019 1808 Last data filed at 09/05/2019 1100 Gross per 24 hour Intake 410 ml Output 15 ml Net 395 ml Patient Vitals for the past 168 hrs: Weight 09/01/191952 62.6 kg (138 lb) Weight: Last Weight: 62.6 kg (138 lb) Admit Weight: 62.6 kg Body mass index is 26.07 kg/m??. Gen: well-appearing, no acute distress, interactive HEENT: normocephalic, anicteric, EOMI, nares patent, OP clear without exudates or ulcers Neck: supple CV: JVP at the clavicle, regular rate and rhythm with normal s1/2, no murmurs, rubs, or gallops; radial and dorsalis pedis pulses are 2+ bilaterally Pulm: normal work of breathing, lungs are clear to auscultation bilaterally without focal wheezes, rales, or rhonchi Abd: soft, non-distended, non-tender to palpation with normoactive bowel sounds Ext: no cyanosis or clubbing, no lower extremity edema bilaterally Skin: warm, well-perfused without rashes Neuro: alert and oriented to person, place, time; moving all extremities grossly with symmetric facies, fluent language Psych: euthymic, logical thinking Studies reviewed in eDH. Remarkable for the following: Labs: White count 1.5 with ANC 420 Hemoglobin 11 from 12 Platelets normal Micro: No results found for: URINECULTURE Lab Results Component Value Date/Time GRAMSTAIN (A) 09/02/2019 1300 Many Neutrophils seen Many Gram Positive Cocci seen Few Gram Negative Rods seen Rare Gram Positive Rods seen BFCX Few Actinomyces species (A) 09/02/2019 1300 Lab Results Component Value Date/Time BLOODCX No growth at 3 days. 09/01/2019 2208 BLOODCX No growth at 3 days. 09/01/2019 2208 ECG: No results found for: DIAGLINE, QTCCALC Imaging: Results for orders placed or performed during the hospital encounter of 09/01/19 CT Guided Aspiration Liver (Exam End: 09/02/2019 1:33 PM) Impression Impression: Successful CT-guided drain placement in a hepatic fluid collection. Plan/disposition: 1) To Angio recovery room, may discharge to floor when meets criteria. 2) Forward flush every 12 hours with 3-5 mL of normal saline. Record outputs daily. 3) Patient to return in 4 weeks for fluoroscopic drain check. Eligibility Specialist(s): Resident/Fellow: Johan Hernandez M.D. Attending: Terrance Gunter M.D. Procedure/Teaching Attestation: I was present for the procedure. Moderate Sedation Attestation: I was present during the intra-service time as documented by IR nurse. Preliminary report signed by: Johan Hernandez at 09/02/2019 2:11 PM I have personally reviewed the image(s) and the resident's interpretation and agree with the findings, Terrance Gunter at 09/02/2019 4:02 PM Thank you for letting us participate in the care of this patient. For questions regarding this report, please contact the number below. Electronically signed by: Terrance Gunter [facility] ([phone]), at 09/02/2019 4:02 PM Inpatient Medications: Scheduled ??? [id number]-sndz 480 mcg Subcutaneous Daily ??? sodium chloride 0.9 % (flush) 3-5 mL Intercatheter 2 times per day ??? piperacillin-tazobactam 3.375 g Intravenous Q8H ??? pantoprazole EC 20 mg Oral Daily ??? predniSONE 20 mg Oral Daily ??? sodium chloride 0.9 % (flush) 5 mL Intravenous BID ??? enoxaparin 40 mg Subcutaneous Nightly Continuous infusions: PRN: sodium chloride 0.9 % (flush), lidocaine, acetaminophen, ondansetron OR [DISCONTINUED] ondansetron, melatonin Assessment: 68 y.o. 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 White count and ANC have fallen and now with severe neutropenia. Reviewed with hematology/oncology and recommending dose of Neupogen today which was administered. At this point, main barrier to discharge is antibiotic planning. Awaiting culture results to determine this. It is possible that she could be discharged on oral antibiotics. Plan: #Hepatic abscess -s/p CT guided drainage -gram stain is polymicrobial -Cultures now growing Clostridium, Bacteroides, Peptostreptococcus -Continue piperacillin tazobactam -narrow abx pending micro data, final antibiotic plan to be determined ?? #Ulcerative colitis -continue steroid taper pred (decrease to 10mg 09/07) -PPI for steroid taper -GI aware of admission, no further interventions this admission for her UC ?? #Large granular lymphocytic leukemia #Severe neutropenia -followed by Dr. Jay -s/p neupogen 08/15/19 -ANC 420 today and will administer Neupogen #Routine: -DVT Prophylaxis: Enoxaparin -Diet: Regular -Bowel meds as needed -Lines/Drain/Dumont: PIV -Code Status: Full IPI Certification I certify that I am a D-H credentialed attending provider with admitting privileges and that the patient meets or has met medical necessity to require an inpatient IPI level of care meeting a minimumof two midnights or is on the [facility] inpatient only procedure list (status C) due to: Ongoing need forIV antibiotics for hepatic abscess Terrance Santana MD Attending, Hospital Medicine Service Pager #[phone] 09/05/2019 * Alexis Caro MD - 09/04/2019 6:14 PM EDT Hospital Medicine Attending Daily Progress Note Admit Date: 09/01/2019 Hospital Day 2 days Active Hospital Problems Diagnosis ??? Hepatic abscess Resolved Hospital Problems No resolved problems to display. PMH Active Non-Hospital Problems Diagnosis ??? Ulcerative colitis ??? Leukopenia Inpatient Medications: Scheduled ??? sodium chloride 0.9 % (flush) 3-5 mL Intercatheter 2 times per day ??? piperacillin-tazobactam 3.375 g Intravenous Q8H ??? pantoprazole EC 20 mg Oral Daily ??? predniSONE 20 mg Oral Daily ??? sodium chloride 0.9 % (flush) 5 mL Intravenous BID ??? enoxaparin 40 mg Subcutaneous Nightly Continuous infusions: PRN: sodium chloride 0.9 % (flush), lidocaine, acetaminophen, ondansetron OR [DISCONTINUED] ondansetron, melatonin Interval History: Cultures cooking. Patient feeling well. Small output through drains, confirmed she needs them for 4 weeks. ID says patient may be OK with just PO abx. ROS: improving pain Physical Exam Vitals Range last 24 hrs Temperature Temp: [36 ??C (96.8 ??F)-36.9 ??C (98.4 ??F)] Heart Rate Heart Rate: -- Blood Pressure BP: (104-136)/(63-83) Respiratory Rate Resp: [16-18] SpO2 SpO2: [94 %-96 %] Intake/Output Summary (Last 24 hours) at 09/04/2019 8802 Last data filed at 09/04/2019 0612 Gross per 24 hour Intake 705 ml Output 20 ml Net 685 ml Patient Vitals for the past 168 hrs: Weight 09/01/19 1953 62.6 kg (138 lb) Body mass index is 26.07 kg/m??. Studies reviewed in eDH. Remarkable for the following: LABS: Last 3 wbc, hgb, hct plt Recent Labs 09/04/19 0443 09/03/1936 09/01/192207 WBC 1.9* 4.1 5.5 HGB 12.0 12.0 11.2* HCT 38.4 39.6 35.4* PLATELET 296 315 308 Last 3 Lytes Recent Labs 09/04/193 09/03/1936 09/01/192207 NA 138 133* 134* K 4.1 3.8 4.0 CL 101 97* 94* CO2 27 26 27 BUN 9 10 10 CREATININE 0.49* 0.54* 0.67* FSBG Trend No results for input(s): POCGLU in the last 72 hours. MICRO: No results for input(s): URINECULTURE in the last 720 hours. Recent Labs 09/02/19 1300 GRAMSTAIN Many Neutrophils seen Many Gram Positive Cocci seen Few Gram Negative Rods seen Rare Gram Positive Rods seen * BFCX No growth to date.* Recent Labs 09/01/192207 BLOODCX No growth at 2 days. No growth at 2 days. ECG: No results for input(s): DIAGLINE, QTCCALC in the last 720 hours. VASCULAR: No results for input(s): VBTEXTRPT in the last 720 hours. ?? Gen: well-appearing, no acute distress, interactive HEENT: normocephalic, anicteric, EOMI, nares patent, OP clear without exudates or ulcers Neck: supple CV: JVP at the clavicle, regular rate and rhythm with normal s1/2, no murmurs, rubs, or gallops; radial and dorsalis pedis pulses are 2+ bilaterally Pulm: normal work of breathing, lungs are clear to auscultation bilaterally without focal wheezes, rales, or rhonchi Abd: soft, non-distended, non-tender to palpation with normoactive bowel sounds Ext: no cyanosis or clubbing, no lower extremity edema bilaterally Skin: warm, well-perfused without rashes Neuro: alert and oriented to person, place, time; moving all extremities grossly with symmetric facies, fluent language Psych: euthymic, logical thinking ? Laboratory: reviewed as above ?? Microbiology: Blood Cultures: pending ? Assessment: 68 y.o. 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 Currently clinically stable and afebrile. ? Plan: ?? #Hepatic abscess -s/p CT guided drainage -cultures pending, but gram stain is polymicrobial -high risk that this was another incidence of gut translocation during IBD flair while immunocompromised with chronic neutropenia, leukemia, and chronic steroids. - pip-tazo until cultures -narrow abx pending micro data - ID says may be a candidate for PO -may need to cover strep species found in one blood culture from last hospital. Not sure if still need to cover the cipro-sensitive e coli she has taken a few weeks of antibiotics for. #Ulcerative colitis -continue steroid taper pred (decrease to 10mg 09/07). - not sure if she really needs PPI for UC flair -GI aware of admission ?? #Large granular lymphocytic leukemia -followed by Dr. Jay -s/p neupogen 08/15/19 -consider reaching to heme consult team in case she would benefit from adjustment of neupeogen schedule given active infections -outpt consideration of treatment options ?? #Routine: -DVT Prophylaxis: LMWH to begin after procedure -Diet: NPO -Bowel meds held -If currently a smoker - advised about smoking cessation and will provide smoking cessation material and support. -Pneumovax and Influenza Immunizations given as needed. -Code Status: Discussed Advanced Directives and Code Status. The patient wishes to be Full Code. ?? Anticipated Disposition: weekend if can leave with PO abx Team Pager( Coverage 01/10): #[phone] PCP: Julia Chatterjee MD [phone] Attestation: IPI Certification I certify that I am a D-H credentialed attending provider with admitting privileges and that the patient meets or has met medical necessity to require an inpatient IPI level of care meeting a minimumof two midnights or is on the [facility] inpatient only procedure list (status C) due to: acute kidney injury necessitating close monitoring of fluid balance such as intravenous fluids and/or titration of medication to achieve optimal effect and minimize the chance of immediate or severe side effects. She is awaiting hepatic abscess drainage, culture speciation. Alexis Caro MD 09/04/2019 * Liyah Rodriguez RN - 09/04/2019 4:43 PM EDT OFFICE OF CARE MANAGEMENT Glass Finisher Follow-up Note Discussed plan of care with Primary team and Nursing to assess continuing care and discharge needs. LOS: 2d Primary Insurance: MEDICARE Secondary Insurance: [employer] [facility] [place] Pt continues to require hospitalization for hepatic abscess Ongoing Issues: ID Following - awaiting recommendation IVABX 09/03 PICC placement held -possible transition to oral ABX Awaiting cultures/sensitivities Functional Status Prior to Admission: Independent Discharge plan: home when medically ready Transportation: [employer] to follow with team and family to assist with discharge needs when patient ready for discharge. Liyah Rodriguez VOCATIONAL TRAINING DIRECTOR, [employer] Pgr. [phone] * Johan Hernandez MD - 09/04/2019 9:41 AM EDT Images from the original note were not included. INTERVENTIONAL RADIOLOGY Inpatient Progress Note Admitted 09/01/2019 Procedure(s): CT guided hepatic abscess drain placement Post-procedure day: #2 Time of patient encounter: 0900 24 Hour Events: Patient continues to have some brown/creamy output from drain. Pain is improving, now minimal at the drain site. No other complaints. Last Value 24 Hour Range Temperature 36 ??C (96.8 ??F) Temp: [36 ??C (96.8 ??F)-37 ??C (98.6 ??F)] Heart Rate 55 Heart Rate: -- Blood Pressure 136/83 BP: (102-136)/(62-83) Respiratory Rate 18 Resp: [16-18] SpO2 95 % SpO2: [94 %-95 %] Physical Exam GEN No distress, A&O CARDS RRR LUNGS CTA B/L ABD/Back Minimally tender at the drain site in the left mid back Drains/Tubes: Hepatic abscess drain - dressing c/d/i; output 25cc in last 24hr Labs: Reviewed Micro: Aspirated hepatic abscess fluid: Gram stain - Many neutrophils, many gram(+) cocci, few gram(-), rare gram(+) rods Culture- NGTD Imaging: Assessment: 68 y.o. 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 Continues to drain, no issues. Plan: -Continue to forward flush with 3-5ml normal saline every 12 hours -Plan to have IR drain check in 4 weeks (already ordered) -Will sign off, please contact with any questions Johan Hernandez MD Lead Android Developer * Jeimy Nicholas RN - 09/03/2019 11:30 PM EDT Phlebitis Location of Phlebitis: Phlebitis Scale: [ ] +0 No symptoms [ ] +1 Erythema at access site with or without pain. [ X ] +2 Pain at access site with [ X ] erythema and/or [ ] edema. [ ] +3 Pain at access site with [ ] erythema and/or [ ] edema [ ] Streak formation [ ] Palpable venous cord. [ ] +4 Pain at access site with [ ] erythema and/or [ ] edema [ ] Streak formation [ ] Palpable venous cord > 1 inch in length [ ] Purulent drainage. Site measurement: Length [ 7 ] cm X Width [ 5 ] cm Circumference of affected extremity [ ] cm [ X ] N/A Circumference of unaffected extremity [ ] cm [ X ] N/A Treatment initiated or recommended [ X ] Heat [ X ] Rest [ X ] Elevation [ ] Other Reassessment: [ ] Q4 hrs [ ] Q8 hrs [ X ] Daily * Alexis Caro MD - 09/03/2019 5:04 PM EDT Hospital Medicine Attending Daily Progress Note Admit Date: 09/01/2019 Hospital Day 1 day Active Hospital Problems Diagnosis ??? Hepatic abscess Resolved Hospital Problems No resolved problems to display. PMH Active Non-Hospital Problems Diagnosis ??? Ulcerative colitis ??? Leukopenia Inpatient Medications: Scheduled ??? sodium chloride 0.9 % (flush) 3-5 mL Intercatheter 2 times per day ??? piperacillin-tazobactam 3.375 g Intravenous Q8H ??? pantoprazole EC 20 mg Oral Daily ??? predniSONE 20 mg Oral Daily ??? sodium chloride 0.9 % (flush) 5 mL Intravenous BID ??? enoxaparin 40 mg Subcutaneous Nightly Continuous infusions: PRN: oxyCODONE, sodium chloride 0.9 % (flush), lidocaine, acetaminophen, ondansetron OR [DISCONTINUED] ondansetron, melatonin Interval History: Cultures cooking. Patient feeling well. Small output through drains. Confirmed need for prolonged IV abx, ID consult placed, awaiting PICC and OPAT, and sensitivities of E Coli grown from outside ROS: positive pain post procedure, requiring dilaudid Physical Exam Vitals Range last 24 hrs Temperature Temp: [36.5 ??C (97.7 ??F)-37.1 ??C (98.8 ??F)] Heart Rate Heart Rate: [55] Blood Pressure BP: (92-105)/(52-74) Respiratory Rate Resp: [16-22] SpO2 SpO2: [91 %-97 %] Intake/Output Summary (Last 24 hours) at 09/03/2019 1704 Last data filed at 09/03/2019 1516 Gross per 24 hour Intake 844 ml Output 2920 ml Net -2076 ml Patient Vitals for the past 168 hrs: Weight 09/01/191952 62.6 kg (138 lb) Body mass index is 26.07 kg/m??. Studies reviewed in eDH. Remarkable for the following: LABS: Last 3 wbc, hgb, hct plt Recent Labs 09/03/19 0636 09/01/19 2208 08/25/19 WBC 4.1 5.5 4.96 HGB 12.0 11.2* 12.4 HCT 39.6 35.4* 39.0 PLATELET 315 308 238 Last 3 Lytes Recent Labs 09/03/19 0636 09/01/19220708/25/19 NA 133* 134* 131 K 3.8 4.0 3.6 CL 97* 94* -- CO2 26 27 -- BUN 10 10 14 CREATININE 0.54* 0.67* 0.87 FSBG Trend No results for input(s): POCGLU in the last 72 hours. MICRO: No results for input(s): URINECULTURE in the last 720 hours. Recent Labs 09/02/19 1300 GRAMSTAIN Many Neutrophils seen Many Gram Positive Cocci seen Few Gram Negative Rods seen Rare Gram Positive Rods seen * BFCX No growth to date.* Recent Labs 09/01/192207 BLOODCX No growth at 1 day. No growth at 1 day. ECG: No results for input(s): DIAGLINE, QTCCALC in the last 720 hours. VASCULAR: No results for input(s): VBTEXTRPT in the last 720 hours. ?? Gen: well-appearing, no acute distress, interactive HEENT: normocephalic, anicteric, EOMI, nares patent, OP clear without exudates or ulcers Neck: supple CV: JVP at the clavicle, regular rate and rhythm with normal s1/2, no murmurs, rubs, or gallops; radial and dorsalis pedis pulses are 2+ bilaterally Pulm: normal work of breathing, lungs are clear to auscultation bilaterally without focal wheezes, rales, or rhonchi Abd: soft, non-distended, non-tender to palpation with normoactive bowel sounds Ext: no cyanosis or clubbing, no lower extremity edema bilaterally Skin: warm, well-perfused without rashes Neuro: alert and oriented to person, place, time; moving all extremities grossly with symmetric facies, fluent language Psych: euthymic, logical thinking ? Laboratory: reviewed as above ?? Microbiology: Blood Cultures: pending ? Assessment: 68 y.o. 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 Currently clinically stable and afebrile. Discussed with GI who recommend CT- guided drainage. In the meantime, will start Zosyn. Details of plan as below. ? Plan: ?? #Hepatic abscess -CT guided drainage (order in, did not discuss with IR) -start pip-tazo -NPO -mIVF -narrow abx pending micro data 09/02: Cultures cooking. Patient feeling well. Small output through drains. May need for prolonged IV abx as patient is immunocompromised with leukemia, and steroids for UC. However, E Coli Bactermia may have been treated completely since 08/16, as it was reportedly susceptible to cipro out [facility]. Justneed to confirm how long she took this and make sure its not related to current presentation. ID consult placed, awaiting PICC and OPAT, and sensitivities of E Coli grown from outside ?? #Ulcerative colitis -continue steroid taper pred 20 (decrease to 10mg 09/07) + PPI -GI aware of admission ?? #Large granular lymphocytic leukemia -followed by Dr. Jay -s/p thor 08/15/19 -outpt consideration of treatment options ?? #Routine: -Admit to: hospital medicine -DVT Prophylaxis: LMWH to begin after procedure -Diet: NPO -Bowel meds held -If currently a smoker - advised about smoking cessation and will provide smoking cessation material and support. -Pneumovax and Influenza Immunizations given as needed. -Code Status: Discussed Advanced Directives and Code Status. The patient wishes to be Full Code. ? Anticipated Disposition: 09/03/2019 Team Pager( Coverage 01/10): #[phone] PCP: Julia Chatterjee MD [phone] Attestation: IPI Certification I certify that I am a D-H credentialed attending provider with admitting privileges and that the patient meets or has met medical necessity to require an inpatient IPI level of care meeting a minimumof two midnights or is on the [facility] inpatient only procedure list (status C) due to: acute kidney injury necessitating close monitoring of fluid balance such as intravenous fluids and/or titration of medication to achieve optimal effect and minimize the chance of immediate or severe side effects. She is awaiting hepatic abscess drainage, culture speciation. Alexis Caro MD 09/03/2019 * Mary Castro MD - 09/03/2019 6:32 AM EDT GASTROENTEROLOGY & HEPATOLOGY INPATIENT PROGRESS NOTE ID: 68 y.o. F with hx of L sided UC that was diagnosed in 2011 - not currently on any therapy for UC - says it had been mostly controlled by dietary measures, large granular lymphocytic leukemia, who washospitalized in the beginning of August at [facility] with worsening diarrhea/painful defecation/fevers, found to have E.coli bacteremia and L sided colitis on CT - discharged on PO antibiotics and Prednisone, now with worsening fevers again with imaging showing an new R hepatic abscess with ongoing evidence of colitis. Interval History: - IR placed drain into hepatic abscess, cultures so far growing many GPCs, few GNRs, rare GPRs - Afebrile - Soreness at site of drain in her back - Ate breakfast Active Hospital Problem List Patient Active Problem List Diagnosis Code ??? Leukopenia D72.819 ??? Ulcerative colitis K51.90 ??? Hepatic abscess K75.0 Scheduled Meds: ??? piperacillin-tazobactam 3.375 g Intravenous Q8H ??? pantoprazole EC 20 mg Oral Daily ??? predniSONE 20 mg Oral Daily ??? sodium chloride 0.9 % (flush) 5 mL Intravenous BID ??? enoxaparin 40 mg Subcutaneous Nightly Continuous Infusions: ??? lactated Ringers 75 mL/hr (09/02/192024) PRN Meds:.sodium chloride 0.9 % (flush), lidocaine, acetaminophen, ondansetron OR ondansetron, melatonin, oxyCODONE Physical Examination Vitals: 09/02/19 1954 09/03/19 0001 09/03/19 0318 09/03/19 0554 BP: 92/55 93/58 94/58 105/74 BP Location (NBP): Right arm Right arm Right arm Right arm Patient Position: Lying Lying Sitting Pulse: Resp: 16 16 Temp: 36.6 ??C (97.9 ??F) 36.6 ??C (97.9 ??F) TempSrc: Oral Oral SpO2: 93% 91% 97% 94% Weight: PHYSICAL EXAM GENERAL: No acute distress, alert and oriented HEENT: AT/NC, sclerae anicteric, moist mucous membranes ABDOMEN: Soft, normoactive bowel sounds, non-tender, non-distended Back: Drain in R lower back with some purulent material coming out EXT: Warm, no edema SKIN: No jaundice Pertinent Recent labs CBC No results found for: WBC, HGB, HCT, PLATELET No results found for: NA, K, CL, CO2, BUN, CREATININE, GLUCOSE LFT's No results found for: ALKPHOS, AST, ALBUMIN, BILIDIR, BILITOT, ALT, PROT Pertinent Endoscopic Procedures/Reports: Reviewed in eDH Pertinent Recent Imaging: CT-Guided Aspiration of Liver 09/02/19: Technique: Prior to beginning the procedure, a standard time out Moment of Truth was performed. The patient was positioned prone on the CT table. An initial non-contrast localizing CT scan was obtained. A site for drain placement was identified on the skin with the assistance of the CT laser lights. The skin was marked, prepped, and local anesthesia provided with 1% lidocaine. Maximum sterile barrier technique was used throughout the procedure. An 18ga needle was directed into the collection with intermittent CT fluoroscopy. Purulent fluid was aspirated. A 0.035 inch guidewire was placed through the needle and position within the collection was confirmed with CT. The needle was removed over the wire, the access tract was dilated and a 10 Bangladeshi locking pigtail drainage catheter was placed. Post placement CT showed the catheter tip located within the collection. ?? 5 mL of purulent fluid was aspirated and the catheter connected to bulb suction drainage. A sample sent for microbiology. The drainage catheter was secured to the skin with 2-0 Prolene suture and StatLock. A sterile dressing was applied. Impression: 68 y.o. F with hx of L sided UC that was diagnosed in 2011 - not currently on any therapy for UC - says it had been mostly controlled by dietary measures, large granular lymphocytic leukemia, who washospitalized in the beginning of August at [facility] with worsening diarrhea/painful defecation/fevers to 102.5 found to have E.coli bacteremia and L sided colitis on CT - discharged on PO antibiotics and Prednisone, had been recovering well but developed worsening fevers again with imaging showing an newR hepatic abscess with ongoing evidence of colitis. ?? Now s/p IR drainage of hepatic abscess, culture with polymicrobial growth, continued on IV zosyn. The etiology of her colitis is still a bit of a mystery, sounded like infectious colitis but cannot be sure that this is not her underlying UC flaring. Currently not having diarrhea, blood in stool, or abdominal pain. Would be worthwhile to treat the abscess with IV antibiotics for now and when she is feeling better to do a full bowel prep for a full colonoscopy, which she has not had since 2011. Plan: - Appreciate IR assistance with hepatic abscess drainage, record drain output daily - Please order 5 cc saline flushes every 12 hours for drain, per IR recommendations - Follow up culture data - Consult ID for antibiotic duration for hepatic abscess. Will need prolonged course of IV antibiotics, on Zosyn for now - Would try to obtain culture sensitivity data on E. Coli from [facility] - Continue prednisone at 20 mg daily for now - Once she is feeling better we will plan for a bowel prep with a full colonoscopy to re-evaluate response of colitis to antibiotics and extent of involvement. She is not interested in having it donethis admission. We will arrange for her to have this done in short order as an outpatient. This case was discussed with Dr. Castro. Hesham Dobson MD Gastroenterology Fellow #[id number] I have seen and evaluated the patient with Dr Dobson . I have reviewed the resident/fellow's history during the encounter and I agree with the details as written above. My physical examination confirms the above findings. The assessment and plan were formulated in discussion with me at the time of the encounter and I agree with them as documented. * Alexis Caro MD - 09/02/2019 5:10 PM EDT Hospital Medicine Attending Daily Progress Note Admit Date: 09/01/2019 Hospital Day 0 days Active Hospital Problems Diagnosis ??? Hepatic abscess Resolved Hospital Problems No resolved problems to display. PMH Active Non-Hospital Problems Diagnosis ??? Ulcerative colitis ??? Leukopenia Inpatient Medications: Scheduled ??? piperacillin-tazobactam 3.375 g Intravenous Q8H ??? pantoprazole EC 20 mg Oral Daily ??? predniSONE 20 mg Oral Daily ??? sodium chloride 0.9 % (flush) 5 mL Intravenous BID ??? enoxaparin 40 mg Subcutaneous Nightly Continuous infusions: ??? lactated Ringers 75 mL/hr (09/02/19 0155) PRN: sodium chloride 0.9 % (flush), lidocaine, acetaminophen, ondansetron OR ondansetron, melatonin, oxyCODONE, HYDROmorphone Interval History: underwent hepatic abscess drainage ROS: positive pain post procedure, requiring dilaudid Physical Exam Vitals Range last 24 hrs Temperature Temp: [36.8 ??C (98.2 ??F)-39 ??C (102.2 ??F)] Heart Rate Heart Rate: [59-93] Blood Pressure BP: (100-135)/(51-81) Respiratory Rate Resp: [13-26] SpO2 SpO2: [91 %-98 %] Intake/Output Summary (Last 24 hours) at 09/02/2019 1710 Last data filed at 09/02/2019 1300 Gross per 24 hour Intake 5 ml Output 955 ml Net -950 ml Patient Vitals for the past 168 hrs: Weight 09/01/191952 62.6 kg (138 lb) Body mass index is 26.07 kg/m??. Studies reviewed in eDH. Remarkable for the following: LABS: Last 3 wbc, hgb, hct plt Recent Labs 09/01/19220708/25/19 WBC 5.5 4.96 HGB 11.2* 12.4 HCT 35.4* 39.0 PLATELET 308 238 Last 3 Lytes Recent Labs 09/01/19220708/25/19 NA 134* 131 K 4.0 3.6 CL 94* -- CO2 27 -- BUN 10 14 CREATININE 0.67* 0.87 FSBG Trend No results for input(s): POCGLU in the last 72 hours. MICRO: No results for input(s): URINECULTURE in the last 720 hours. Recent Labs 09/02/19 1300 GRAMSTAIN Many Neutrophils seen Many Gram Positive Cocci seen Few Gram Negative Rods seen Rare Gram Positive Rods seen * No results for input(s): BLOODCX in the last 720 hours. ECG: No results for input(s): DIAGLINE, QTCCALC in the last 720 hours. VASCULAR: No results for input(s): VBTEXTRPT in the last 720 hours. ?? Gen: well-appearing, no acute distress, interactive HEENT: normocephalic, anicteric, EOMI, nares patent, OP clear without exudates or ulcers Neck: supple CV: JVP at the clavicle, regular rate and rhythm with normal s1/2, no murmurs, rubs, or gallops; radial and dorsalis pedis pulses are 2+ bilaterally Pulm: normal work of breathing, lungs are clear to auscultation bilaterally without focal wheezes, rales, or rhonchi Abd: soft, non-distended, non-tender to palpation with normoactive bowel sounds Ext: no cyanosis or clubbing, no lower extremity edema bilaterally Skin: warm, well-perfused without rashes Neuro: alert and oriented to person, place, time; moving all extremities grossly with symmetric facies, fluent language Psych: euthymic, logical thinking ? Laboratory: reviewed as above ?? Microbiology: Blood Cultures: pending ? Assessment: 68 y.o. 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 Currently clinically stable and afebrile. Discussed with GI who recommend CT- guided drainage. In the meantime, will start Zosyn. Details of plan as below. ? Plan: ?? #Hepatic abscess -CT guided drainage (order in, did not discuss with IR) -start pip-tazo -NPO -mIVF -narrow abx pending micro data ?? #Ulcerative colitis -continue steroid taper pred 20 (decrease to 10mg 09/07) + PPI -GI aware of admission ?? #Recent E coli bacteremia -abx as above -bcx pending ?? #Large granular lymphocytic leukemia -followed by Dr. Jay -s/p thor 08/15/19 -outpt consideration of treatment options ? #Routine: -Admit to: hospital medicine -DVT Prophylaxis: LMWH to begin after procedure -Diet: NPO -Bowel meds held -If currently a smoker - advised about smoking cessation and will provide smoking cessation material and support. -Pneumovax and Influenza Immunizations given as needed. -Code Status: Discussed Advanced Directives and Code Status. The patient wishes to be Full Code. ? Anticipated Disposition: 09/03/2019 Team Pager( Coverage 01/10): #[phone] PCP: Julia Chatterjee MD [phone] Attestation: IPI Certification I certify that I am a D-H credentialed attending provider with admitting privileges and that the patient meets or has met medical necessity to require an inpatient IPI level of care meeting a minimumof two midnights or is on the [facility] inpatient only procedure list (status C) due to: acute kidney injury necessitating close monitoring of fluid balance such as intravenous fluids and/or titration of medication to achieve optimal effect and minimize the chance of immediate or severe side effects. She is awaiting hepatic abscess drainage, culture speciation. Alexis Caro MD 09/02/2019 * Liyah Rodriguez RN - 09/02/2019 4:43 PM EDT Chart reviewed, care reviewed with primary team and at interdisciplinary rounds. Patient continues to require acute hospital care for Hepatic Abscess. No RNCM needs identified at this time. Plan for discharge is home when medically ready. CM will continue to follow and assist with discharge planning and coordination of care as indicated. * Froilan Guillen RN - 09/02/2019 12:30 PM EDT [facility] NUR[facility] DATABASE Name: LETI PARRY Date of : 1950 AGE: 68 y.o. Address: [address] [address] (home) Mobile: Telephone Information: Referring Provider: Self REASON FOR VISIT: CT guided drain placement Order Questions Answers Laterality Right Is the patient on anticoagulant / anitplatelet therapy ? No Reason for exam and clinical history: h/o UC, recent E coli bacteremia - persistent fevers and found to have hepatic abscess Allergies Allergen Reactions ??? Benzalkonium Chloride Pertinent PSH: Past Surgical History: Procedure Laterality Date ??? PRO BONE MARROW ASPIRATION W/BX THROUGH SAME INCISION/SITE Right 01/08/2017 ([facility]) BONE MARROW ASP PERFORMED W/BX THRU BX INCISION (WRVU 0.16) performed by Lee Ann Jay MD at [facility] ??? PRO BONE MARROW BX, NEEDLE/TROCAR Right 01/08/2017 ([facility]) BONE MARROW,BIOPSY (WRVU 1.37) performed by Lee Ann Jay MD at [facility] ??? PRO COLONOSCOPY, BIOPSY 07/05/2011 COLONOSCOPY FLEXIBLE, WITH BX performed by MARY CASTRO at [facility] ??? PRO COLONOSCOPY, REMV LESN, SNARE 07/05/2011 COLONOSCOPY, POLYPECTOMY, REMOVAL LESION BY SNARE performed by MARY CASTRO at [facility] Date/Procedure Meds given/comments 09/02/19 CT Liver Drain Fentanyl 200 mcg IV, Versed 4 mg IV Laboratory Results: Lab Results Component Value Date INR 1.2 09/01/2019 Lab Results Component Value Date CREATININE 0.67 (L) 09/01/2019 Lab Results Component Value Date K 4.0 09/01/2019 Lab Results Component Value Date PLATELET 308 09/01/2019 * Froilan Guillen RN - 09/02/2019 12:24 PM EDT To procedure room CT1 via stretcher. Onto table prone All monitors, O2, safety strap in place. Med's per protocol. documented in this encounter H&P Notes * Johan Hernandez MD - 09/02/2019 11:16 AM EDT INTERVENTIONAL RADIOLOGY FOCUSED H&P: Procedure: CT guided hepatic drain The patient's history and physical exam have been reviewed and completed. There has been no interval change from that of the pre-operative history and physical exam done within the last 30 days. Physical Exam: Cardiovascular: Regular, Normal Pulmonary: Breath sounds clear to auscultation The planned procedure (and sedation plan if appropriate) , its benefits and risks, and alternativeswere discussed with the patient. The patient consented to the procedure. PRE-SEDATION ASSESSMENT: Sedation Plan: moderate (conscious sedation) ASA: 2: Patient with mild systemic disease Mallampati: III: only the base of the uvula can be seen Confirm NPO status: Yes History of anesthetic complications: No Current medications reviewed: Yes Allergies reviewed: Yes Source Note - Izzy Fabian MD - 09/02/2019 7:59 AM EDT Images from the original note were not included. RADIOLOGY FOCUSED H&P and PRE-PROCEDURE NOTE: Referring Physician:GI consult service PCP: Julia Chatterjee MD Procedure Indication: Hepatic drain Presenting Diagnosis/ Complaint: Leti Parry is a 68 y.o. female with ulcerative colitis and large granular lymphocytic leukemia who was admitted from the Emergency Department with complaints of fever and hepatic abscess. The patient presented to the emergency department hemodynamically stable, afebrile and in no signs of any acute distress. The patient's history of a month-long course of fevers that have been unsuccessfully treated for antibiotics. She is an inpatient. Past Medical/Surgical History Patient Active Problem List Diagnosis Code ??? Leukopenia D72.819 ??? Ulcerative colitis K51.90 ??? Hepatic abscess K75.0 No past medical history on file. Past Surgical History: Procedure Laterality Date ??? PRO BONE MARROW ASPIRATION W/BX THROUGH SAME INCISION/SITE Right 01/08/2017 ([facility]) BONE MARROW ASP PERFORMED W/BX THRU BX INCISION (WRVU 0.16) performed by Lee Ann Jay MD at [facility] ??? PRO BONE MARROW BX, NEEDLE/TROCAR Right 01/08/2017 ([facility]) BONE MARROW,BIOPSY (WRVU 1.37) performed by Lee Ann Jay MD at [facility] ??? PRO COLONOSCOPY, BIOPSY 07/05/2011 COLONOSCOPY FLEXIBLE, WITH BX performed by MARY CASTRO at [facility] ??? PRO COLONOSCOPY, REMV LESN, SNARE 07/05/2011 COLONOSCOPY, POLYPECTOMY, REMOVAL LESION BY SNARE performed by MARY CASTRO at [facility] Medications: No current facility-administered medications for this visit. No current outpatient medications on file. Facility-Administered Medications Ordered in Other Visits: ??? piperacillin-tazobactam (ZOSYN) 3.375 g vial attach to sodium chloride 0.9% 50 mL Mini-Bag Plus, 3.375 g, Intravenous, Q8H, Terrance Santana MD, Stopped at 09/02/19 0455 ??? lactated ringers infusion, 75 mL/hr, Intravenous, Continuous, Terrance Santana MD, Last Rate: 75 mL/hr at 09/02/19 0155, 75 mL/hr at 09/02/19 0155 ??? pantoprazole EC (Protonix) tablet 20 mg, 20 mg, Oral, Daily, Terrance Santana MD ??? predniSONE (Deltasone) tablet 20 mg, 20 mg, Oral, Daily, Terrance Santana MD ??? sodium chloride 0.9 % (flush) flush 5 mL, 5 mL, Intravenous, BID, Terrance Santana MD ??? sodium chloride 0.9 % (flush) flush 5-20 mL, 5-20 mL, Intravenous, Q1 Min PRN, Terrance Santana MD ??? lidocaine (XYLOCAINE) 10 mg/mL (1 %) injection 3 mg, 0.3 mL, Subcutaneous, Once PRN, Terrance Santana MD ??? enoxaparin (LOVENOX) injection 40 mg, 40 mg, Subcutaneous, Nightly, Terrance Santana MD ??? acetaminophen (Tylenol) tablet 650 mg, 650 mg, Oral, Q6H PRN, Terrance Santana MD, 650 mg at 09/02/19 0259 ??? ondansetron (Zofran) tablet 4-8 mg, 4-8 mg, Oral, Q8H PRN OR ondansetron (ZOFRAN) injection4-8 mg, 4-8 mg, Intravenous, Q8H PRN, Terrance Santana MD ??? melatonin tablet 3 mg, 3 mg, Oral, Nightly PRN, Terrance Santana MD Allergies: Benzalkonium chloride Social History and Habits: Social History Tobacco Use ??? Smoking status: Never Smoker ??? Smokeless tobacco: Never Used Substance Use Topics ??? Alcohol use: Yes Alcohol/week: 1.0 standard drinks Types: 1 Glasses of wine per week ??? Drug use: No Significant Family History: No family history on file. Physical Exam: Pending Labs: Lab Results Component Value Date WBC 5.5 09/01/2019 ANC 3.32 08/25/2019 HCT 35.4 (L) 09/01/2019 PLATELET 308 09/01/2019 INR 1.2 09/01/2019 BUN 10 09/01/2019 CREATININE 0.67 (L) 09/01/2019 ALKPHOS 112 (H) 09/01/2019 AST 25 09/01/2019 ALBUMIN 3.5 09/01/2019 BILIDIR 0.1 09/01/2019 BILITOT 0.3 09/01/2019 ALT 44 (H) 09/01/2019 PROT 7.3 09/01/2019 Prior relevant imaging: Assessment: Complex multilocular liver abscess and thrombosed posterior segmental right portal vein. Drainage required. Discussed case with GI team during conference this morning and they feel strongly that it should be performed today. Will require Room1, 3D. Plan Planned procedure: Hepatic Abscess drain Labs to be performed day of procedure: No labs Sedation: Moderate (Conscious sedation) Prophylactic antibiotic : None Contrast: No contrast Additional medications for procedure: Lidocaine Medications to discontinue (and days held): None Planned access site: Needs 3D Position: Prone Cytopathology presence needed: No Consent: Pending 09/02/2019 * Terrance Santana MD - 09/01/2019 11:30 PM EDT [facility] Medicine Serivce Inpatient Admission Note Problem List: There are no hospital problems to display for this patient. Active Non-Hospital Problems Diagnosis ??? Ulcerative colitis ??? Leukopenia ID: 68 y.o. 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 Parry was initially doing well after her discharge from the hospital. However, over the past week, has been developing intermittent fevers, measured Tm 102.2 today, and typically occurring in the morning. Fevers tend to resolve with spontaneously or with a dose of tylenol. She denies abd pain.No nausea or vomiting. She notes her BMs are formed, non-bloody but slightly burning, and has been having about 3-4 BMs a day (improved from her hospitalization but more than typical). Her appetite has been robust and has tolerated oral intake well. She has been tapering her prednisone. Recently decreased to 20mg daily and will decrease to 10mg on09/07 She denies cough, dyspnea, chest pain. No rash, myalgias, or arthralgias. No sick exposures. She saw her PCP 08/23 for this. Then hem on 08/25. Returned to ED 08/27 - Her course of ciprofloxacin was extended and Augmentin was added. Review of records. Discharge summary from [facility]. Patient admitted 08/14 to 08/[address] on [address]. Course complicated by E. coli bacteremia. Treated with ciprofloxacin plus Flagyl. Narrowed to Cipro only on discharge. E. coli reportedly sensitive to Cipro. Did have 1 blood culture positivewith GPC's which was considered a contaminant. Repeat blood cultures were negative. She had an echocardiogram with normal EF and systolic function and no vegetations. She was discharged on ciprofloxacin and a steroid taper. Review of Systems: as above Review of Systems Emergency Department Course: Vitals: afebrile, P60-70's BP 104-118/60-70's S95% RA Labs: White count 5.5, baseline is around 2.0 ANC 3200 Hemoglobin 11.2 from baseline 12-13 Platelets 300 Sodium 134 Creatinine 0.67 which is consistent with baseline LFTs with mildly elevated alk phos and ALT, otherwise normal INR 1.2 Blood cultures pending Imaging: CT from outside hospital 08/31 reviewed with notable abscess Interventions: none Past Medical and Surgical History: History reviewed. No pertinent past medical history. Past Surgical History: Procedure Laterality Date ??? PRO BONE MARROW ASPIRATION W/BX THROUGH SAME INCISION/SITE Right 01/08/2017 ([facility]) BONE MARROW ASP PERFORMED W/BX THRU BX INCISION (WRVU 0.16) performed by Lee Ann Jay MD at [facility] ??? PRO BONE MARROW BX, NEEDLE/TROCAR Right 01/08/2017 ([facility]) BONE MARROW,BIOPSY (WRVU 1.37) performed by Lee Ann Jay MD at [facility] ??? PRO COLONOSCOPY, BIOPSY 07/05/2011 COLONOSCOPY FLEXIBLE, WITH BX performed by MARY CASTRO at [facility] ??? PRO COLONOSCOPY, REMV LESN, SNARE 07/05/2011 COLONOSCOPY, POLYPECTOMY, REMOVAL LESION BY SNARE performed by MARY CASTRO at [facility] Prior To Admission Medications: (Not in a hospital admission) Allergies: Allergies Allergen Reactions ??? Benzalkonium Chloride Family History: No family history on file. Social History and Habits: Social History Socioeconomic [...] file Gets together: Not on file Attends confucianist service: Not on file Active member of [...] Social History Narrative ??? Not on file Immunizations: There is no immunization history on file for this patient. Physical Exam: Last Set of Vitals and range of vitals over past 24 hours: Last value Range last 24 hrs Temperature Temp: 36.8 ??C (98.2 ??F) Temp: [36.8 ??C (98.2 ??F)] Heart Rate Heart Rate: 61 Heart Rate: [59-77] Blood Pressure BP: 112/70 BP: (104-118)/(63-74) Respiratory Rate Resp: 16 Resp: [16-18] SpO2 SpO2: 96 % SpO2: [95 %-97 %] Gen: well-appearing, no acute distress, interactive HEENT: normocephalic, anicteric, EOMI, nares patent, OP clear without exudates or ulcers Neck: supple CV: JVP at the clavicle, regular rate and rhythm with normal s1/2, no murmurs, rubs, or gallops; radial and dorsalis pedis pulses are 2+ bilaterally Pulm: normal work of breathing, lungs are clear to auscultation bilaterally without focal wheezes, rales, or rhonchi Abd: soft, non-distended, non-tender to palpation with normoactive bowel sounds Ext: no cyanosis or clubbing, no lower extremity edema bilaterally Skin: warm, well-perfused without rashes Neuro: alert and oriented to person, place, time; moving all extremities grossly with symmetric facies, fluent language Psych: euthymic, logical thinking Laboratory: reviewed as above Microbiology: Blood Cultures: pending Assessment: 68 y.o. 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 Discussed with GI who recommend CT- guided drainage. In the meantime, will start Zosyn. Details of plan as below. Plan: #Hepatic abscess -CT guided drainage (order in, did not discuss with IR) -start pip-tazo -NPO -mIVF -narrow abx pending micro data #Ulcerative colitis -continue steroid taper pred 20 (decrease to 10mg 09/07) + PPI -GI aware of admission #Recent E coli bacteremia -abx as above -bcx pending #Large granular lymphocytic leukemia -followed by Dr. Jay -s/p thor 08/15/19 -outpt consideration of treatment options #Routine: -Admit to: hospital medicine -DVT Prophylaxis: LMWH to begin after procedure -Diet: NPO -Bowel meds held -If currently a smoker - advised about smoking cessation and will provide smoking cessation material and support. -Pneumovax and Influenza Immunizations given as needed. -Code Status: Discussed Advanced Directives and Code Status. The patient wishes to be Full Code. A copy of this document will be sent to the patient's Primary Care Physician and/or Referring Physician. Terrance Santana MD Attending, Hospital Medicine Service Pager #[phone] until 0800 09/0109/01/2019 IPI Certification I certify that I am a [facility] credentialed attending provider with admitting privileges and that the patient meets or has met medical necessity to require an inpatient IPI level of care meeting a minimumof two midnights or is on the [facility] inpatient only procedure list (status C) due to: need for IV antibiotic therapy after failed outpatient oral antibiotics and need for additional procedures to control infection source documented in this encounter Procedure Notes * Taniya Nevarez RN - 09/07/2019 9:53 AM EDTAssociated Order(s): PLACE PICC LINE: CONTACT VASCULAR ACCESS PICC/Midline Insertion Procedure Note Indications: Anti-infective This insertion was not to replace a malfunctioning catheter. This insertion was not due to a suspected line-associated infection. Location of Procedure: X-Ray Room 11 Risks and Benefits: The risks and benefits of this procedure were reviewed and informed consent was obtained obtained. Time Out: Prior to the start of the procedure, the patient's identity, intended procedure, site/side, correctpatient positioning and presence of the site dimitrios was confirmed as applicable. The medical history and chart were reviewed to rule out potential contraindications to the planned procedure. Hand Hygiene: The case mgr did perform hand hygiene prior to line insertion. Catheter type: PICC Lot number: [id number] Procedure Technique: Skin was prepped with chlorhexidine. Skin preparation agent was completely dry at the time of first skin puncture. The following barrier precaution methods were used:large sterile drape, maske/eye shield, large sterile gown, sterile gloves and cap. 3 ml of 1% Lidocaine was used for skin wheal. Ultrasound was used for guidance. Radiographic contrast agent was not injected for vein identification. Procedure Details: Order received for catheter placement. A 4 Fr. single lumen Bard Power catheter was placed into theright basilic vein over a 0.018 inch guidewire using modified seldinger technique and fluoroscopy. Arm circumference was 28 cm at 2 cm above the insertion site. Final catheter length (with trimming): 38 cm Internal: 36 cm External: 2 cm Tip in SVC per Jordan The line was not placed over a guidewire. Post Procedure: Diagnosis: Liver Abscess Blood return noted on aspiration of line after placement confirmed. 5 mls of normal saline infused free flowing to gravity via PICC after insertion. Sterile dressing applied: CHG Impregnated Tegaderm. Findings: The patient did tolerate the procedure well. No Complications. Procedure Comments: TANIYA NEVAREZ RN 09/07/2019 * Taniya Nevarez RN - 09/04/2019 11:06 AM EDT Hold PICC for Derrick per MD Lama.Floor RN Ailyn nava. documented in this encounter ED Notes * Zen Lopez MD - 09/01/2019 10:01 PM EDT Leti Parry is an 68 y.o. female who presents to the ED with: Chief Complaint Patient presents with ??? Fever hepatic abscess I saw this patient 09/01/2019 at ~ 11:32 PM HPI Leti Parry is a 68 y.o. female with a PMH significant for ulcerative colitis and large granularlymphocytic leukemia who presents to the Emergency Department with complaints of fever and hepatic abscess. According to the patient she was admitted outside hospital roughly a month ago for fevers subsequently diagnosis of E. coli bacteremia. She spent roughly less than a week in the hospital and w as extremely discharged. According patient since that time she has been taking antibiotics for persistent fevers. She states that she has taken multiple courses of several of jerome and she is unclear which antibiotic she was taking. She states that she is also had some issues with neutropenia in thepast. She states that recently she seems to have fevers in the morning which then resolved later inthe day. The patient is still taking antibiotics including ciprofloxacin and antibiotic which she is unsure. Patient states that she additionally takes prednisone daily which she has been tapering down. Patient states that she obtained a CT scan today which showed evidence of a hepatic abscess. Patient states that she was told by her physician to present to [place] to be admitted to the GI service. Social History Socioeconomic History ??? Marital status: Spouse name: None ??? Number of children: None ??? Years of education: None ??? Highest education level: None Occupational History ??? None Social Needs ??? Financial resource strain: None ??? Food insecurity Worry: None Inability: None ??? Transportation needs Medical: None Non-medical: None Tobacco Use ??? Smoking status: Never Smoker ??? Smokeless tobacco: Never Used Substance and Sexual Activity ??? Alcohol use: Yes Alcohol/week: 1.0 standard drinks Types: 1 Glasses of wine per week ??? Drug use: No ??? Sexual activity: None Lifestyle ??? Physical activity Days per week: None Minutes per session: None ??? Stress: None Relationships ??? Social connections Talks on phone: None Gets together: None Attends confucianist service: None Active member of club or organization: None Attends meetings of clubs or organizations: None Relationship status: None ??? Intimate partner violence Fear of current or ex partner: None Emotionally abused: None Physically abused: None Forced sexual activity: None Other Topics Concern ??? None Social History Narrative ??? None Review of Systems: Review of Systems Constitutional: Positive for fever. Negative for chills and fatigue. HENT: Negative for trouble swallowing and voice change. Eyes: Negative for photophobia and visual disturbance. Respiratory: Negative for cough, chest tightness and shortness of breath. Cardiovascular: Negative for chest pain and palpitations. Gastrointestinal: Negative for abdominal pain, diarrhea, nausea and vomiting. Genitourinary: Negative for dysuria and flank pain. Musculoskeletal: Negative for neck pain and neck stiffness. Skin: Negative for rash and wound. Neurological: Negative for dizziness, seizures, syncope, facial asymmetry, numbness and headaches. Psychiatric/Behavioral: Negative for confusion and decreased concentration. Vital Signs: Patient Vitals for the past 24 hrs: BP Temp Temp src Pulse Resp SpO2 Weight 09/01/19 2300 112/70 -- -- 61 16 96 % -- 09/01/19 2230 108/63 -- -- 59 18 97 % -- 09/01/19 2200 118/74 -- -- 65 16 95 % -- 09/01/19 1953 104/69 36.8 ??C (98.2 ??F) Oral 77 18 97 % 62.6 kg (138 lb) I have reviewed the vital signs, which demonstrates Physical Exam: Physical Exam Constitutional: General: She is not in acute distress. Appearance: Normal appearance. She is not ill-appearing. HENT: Head: Normocephalic and atraumatic. Eyes: Conjunctiva/sclera: Conjunctivae normal. Pupils: Pupils are equal, round, and reactive to light. Neck: Musculoskeletal: Normal range of motion and neck supple. Cardiovascular: Rate and Rhythm: Normal rate and regular rhythm. Pulmonary: Effort: Pulmonary effort is normal. No respiratory distress. Breath sounds: Normal breath sounds. Abdominal: General: Abdomen is flat. Tenderness: There is no abdominal tenderness. Musculoskeletal: General: No swelling or tenderness. Skin: General: Skin is warm and dry. Capillary Refill: Capillary refill takes less than 2 seconds. Neurological: General: No focal deficit present. Mental Status: She is alert and oriented to person, place, and time. Psychiatric: Mood and Affect: Mood normal. Behavior: Behavior normal. ED Course: - Patient was evaluated and discussed with Dr. Zapata - Medications, allergies and past medical history reviewed - Nursing notes and vital signs reviewed - Medications and fluid administered: Medications - No data to display - I have reviewed the labs, which are significant for: Recent Results (from the past 24 hour(s)) Basic Metabolic Panel (non-fasting) Result Value Ref Range Glucose Lvl 117 65 - 199 mg/dL BUN 10 8 - 18 mg/dL Creatinine 0.67 (L) 0.70 - 1.20 mg/dL Sodium 134 (L) 135 - 145 mmol/L Potassium 4.0 3.5 - 5.0 mmol/L Chloride 94 (L) 98 - 107 mmol/L CO2 27 22 - 31 mmol/L Anion Gap 13 5 - 15 mmol/L Calcium 8.8 8.5 - 10.5 mg/dL eGFR 91 >=60 mL/min/1.73 m?? eGFR 105 >=60 mL/min/1.73 m?? Hepatic Function Panel Result Value Ref Range Total Protein 7.3 6.1 - 8.0 gm/dL Albumin 3.5 3.2 - 5.2 gm/dL AST 25 0 - 30 unit/L ALT 44 (H) 0 - 30 unit/L Alk Phos 112 (H) 35 - 105 unit/L Total Bilirubin 0.3 0.2 - 1.3 mg/dL Bili, Direct 0.1 0.0 - 0.3 mg/dL Lipase Result Value Ref Range Lipase 30 0 - 60 unit/L Prothrombin Time Result Value Ref Range PT 13.6 (H) 9.4 - 12.5 sec INR 1.2 APTT Result Value Ref Range PTT 31 25 - 37 sec Hemogram Result Value Ref Range WBC 5.5 4.0 - 9.5 x10(3)/mcL RBC 4.02 4.00 - 5.21 x10(6)/mcL Hemoglobin 11.2 (L) 11.7 - 15.5 gm/dL Hematocrit 35.4 (L) 35.7 - 45.8 % MCV 88.1 82.6 - 94.4 fL MCH 27.9 27.1 - 32.0 pg MCHC 31.6 (L) 31.7 - 35.0 gm/dL Platelets 308 145 - 357 x10(3)/mcL RDWSD 45.1 37.0 - 46.0 fL RDWCV 13.9 11.5 - 14.1 % MPV 9.8 7.6 - 12.9 fL nRBC % Auto 0.0 % nRBC Abs Auto 0.000 0.000 - 0.000 x10(3)/mcL Differential, Automated Result Value Ref Range Neutrophils % 59.8 % Neutr Abs (ANC) 3.26 1.70 - 6.10 x10(3)/mcL Lymphocytes % 17.9 % Lymphocytes Abs 1.0 0.9 - 3.2 x10(3)/mcL Monocytes % 14.8 % Monocyte Abs 0.8 0.3 - 0.9 x10(3)/mcL Eosinophils % 0.0 % Eosinophils Abs 0.0 0.0 - 0.4 x10(3)/mcL Basophils % 0.4 % Basophils Abs 0.0 0.0 - 0.1 x10(3)/mcL Immature Gran % 7.10 % Elizabeth Gran Abs 0.39 (H) 0.00 - 0.04 x10(3)/mcL Gold Tube HOLD Result Value Ref Range Gold Hold Sample in lab. Scan, Peripheral Blood Result Value Ref Range Plat Estimate Normal RBC Morphology Normal - I have reviewed the imaging, which is significant for: Film Library- Storage Only CT Abdomen & Pelvis Final Result Assessment and Plan: MDM: Leti Parry is a 68 y.o. female with a PMH significant for ulcerative colitis and large granularlymphocytic leukemia who presents to the Emergency Department with complaints of fever and hepatic abscess. The patient presented to the emergency department hemodynamically stable, afebrile and in no signs of any acute distress. The patient's history of a month-long course of fevers that have beenunsuccessfully treated for antibiotics are concerning for a walled off abscess for which the antibiotics are not appropriately penetrating. Patient's recent CT scan which showed evidence of a hepaticabscess would be in line with this. The patient will need to be admitted to the hospital inpatient in order to obtain the likely IR drainage of this abscess. Hospital medicine was consulted who agreed except the patient to their services. Plan: -Admit to hospital medicine - Likely IR drainage of hepatic abscess with subsequent culture and appropriate antibiotic coveragebased off sensitivities Zen Lopez MD EM Resident, PGY-2 09/01/19 11:32 PM Zen Lopez MD Resident 09/02/19 0727 Associated attestation - Amrik Zapata MD - 09/02/2019 12:40 PM EDT ED ATTENDING ATTESTATION The patient was seen in conjunction with the resident physician. I have independently performed thekey portions of the history and physical exam. I have personally reviewed nursing notes, vital signs, and diagnostic studies including labs, imaging studies and EKGs. I have discussed the details of the case with the resident and agree with the assessment and plan as described in the resident's note, unless stated otherwise in my separate note. Did this case involve critical care? No * Jasmin Lara MD - 09/01/2019 6:16 PM EDT Pt being sent in from home by his GI doctor Dr Oliveros (see notes in chart). Pt driving down from [facility]. 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 Now has hepatic abscess. In [facility] with ecoli bacteremia last week. finished abx and had persistent fevers. Worked with PCP as outpatient and got CT - shows hepatic abscess.Spiking fevers at home to 102 this am. Not currently on abx - finished course of cipro. Will need admission. Jasmin Lara MD 09/01/19 1814 documented in this encounter Miscellaneous Notes * Plan of Care - Taniya Nevarez RN - 09/07/2019 9:56 AM EDT Problem: Health Knowledge, Opportunity to Enhance (Adult,NICU,[place],Obstetrics,Pediatric) Goal: Knowledgeable about Health Subject/Topic Patient will demonstrate the desired outcomes by discharge/transition of care. Outcome: Outcome (s) achieved Date Met: 09/07/19 09/07/19 0998 Health Knowledge, Opportunity to Enhance (Adult,NICU,[place],Obstetrics,Pediatric) Knowledgeable about Health Subject/Topic achieves outcome Peripherally Inserted Central Catheter (PICC) Teaching Sheet Peripherally inserted central catheters ([id number]) (PICC) are used when you need IV (intravenous) medicines and fluids. A catheter is a small flexible plastic tube. The catheter is put in througha vein under your skin. A vein is a tube inside your body that carries blood from the body to the heart. The catheter is usually put into a vein on the inside of your upper arm. Then it is threaded up this vein and ends in the blood vessel near your heart. The PICC catheter may be used for taking blood for laboratory tests. You may also get IV fluids andmedicines quickly and easily. Having the catheter may keep your arm from being stuck many times with a needle. The catheter will have 1-3 small tails (tubes) coming from your arm where the catheter was put in. Why do I need a PICC line or midline catheter? PICC lines are used for assisted treatments. PICC lines may be used for up to a year. They areoften put in to give you IV medicines at home. You may need a PICC catheter because caregivers cannot use smaller veins in your body. Smaller veins may be damaged, or they may have poor blood flow. ??? Catheters are also used in case of emergency when you would need medicines or fluids very quickly. ??? The following are medicines and treatments you may get when you have a PICC line. ? Antibiotics. These are medicines to prevent infection. ? Frequent blood sample collection. ? IV medicines that would make your smaller veins sore or damaged. ? Receiving IV fluids for a long period of time. ? Pain medicine. ? Total Parenteral Nutrition: This is also called TPN. TPN is a special liquid food that goes directly into your veins. ? Blood ? Chemotherapy (Medicine for cancer) What are the benefits of having a PICC line put in? Having a PICC line may keep your arm from being stuck many times with a needle to draw blood orstart an IV (intravenous catheter) . ??? Through a PICC catheter, you may have blood taken for tests. You may also get IV fluids and medicines quickly and easily. ??? Small veins can be damaged or irritated by certain drugs or nutritional solutions. A PICC line helps to decrease vein irritation from antibiotics, IV pain drugs, or IV cancer drugs. ??? A PICC line can be left in place when you go home. If you go home with a PICC line in place, home care can be set up via the nurse [employer] to help you. What are possible complications of having a PICC line put in? Some possible complications are: ??? bruising, swelling, or infection in the arm with the PICC line ??? mal-positioned catheter (catheter tip in wrong place) ??? occlusion (blocked catheter) ??? mechanical phlebitis (vein irritation) and thrombosis (clot) Your doctor is the person you should talk to if you have questions about what would happen if you do not choose to have a PICC line put in. Your doctor can talk to you about other choices you may have. What should I expect when it is put in? A written consent that gives your ok to have it put in needs to be signed after you understand thatyou are going to have a PICC put in, and all your questions about the procedure have been answered to your satisfaction. This is a safety feature that the hospital practices before doing procedures. An experienced nurse who has been through special training and education will be putting this catheter in. The procedure is done in a specially equipped room in Interventional Radiology on the third floor. The PICC nurse will first talk to you about any questions that you may have. The PICC nurse will explain to you what is going to be done before starting. Once you arrive in the procedure room in Interventional Radiology, the PICC nurse will then set up for the procedure. She will unwrap the sterile kit and open the needed supplies. A gown and mask andgloves will be worn while putting it in. An ultrasound machine will be used to help guide the catheter in the right place. This machine uses a handle with sound waves to find the vein. The area on your arm where the catheter will be put in is then numbed with a medicine put under your skin with a tiny needle. The nurse will then put in the catheter using fluoroscopy (a type of x-ray) as a guide. Once the catheter is in your vein, it will be threaded up your arm to the area beforeyour heart. While it is being threaded, you may be asked to turn your head. When the catheter is in, the nurse will place a small dressing on the site along with a little morris which will help keep the catheter in place. After the procedure is done, a radiologist (doctor in x-ray department) will look at your x-ray to make sure that the end of the catheter is in proper position to give your fluids and/or medications. What should I expect in the care of my PICC? A dressing that is specially made to prevent infections will be put on. After this, the dressing will only be changed once a week unless it needs it sooner. If you go home with the catheter in, you may take a shower as long as you keep the site dry. You can do this by wearing a specially fitted PICC protector that will be provided to you before dischargefrom the hospital. The dressing at the site must be kept clean and dry. It is important that you watch for signs of infection at the site. Your healthcare provider should be notified if these occur: ??? Redness ??? Swelling ??? Pus ??? Pain at the site Other reasons to notify your healthcare provider are: ??? Catheter becomes partially or totally removed ??? Unable to infuse medication/fluid ??? Unable to draw back blood from the catheter. This may be an early sign that a clot is forming on the end of the catheter. If this occurs, a medicine called Cathflo may be used to dissolve this clot. Ask the PICC nurse or your doctor, any questions you may have so you feel secure in consenting to having a PICC line. References: Vascular Access Device Selection, Insertion, and Management, [employer] 12/13. A Review of the Efficacy, Safety, Use, and Administration of Cathflo, [employer] 2005 * Plan of Care - Kyrie Camilo RN - 09/06/2019 11:50 PM EDT Problem: Patient Care Overview Goal: Plan of Care Review Outcome: Ongoing (Interventions Implemented as Appropriate) 09/04/19223409/06/192050 Plan of Care Review Progress progress towards functional goals is fair -- Coping/Psychosocial Plan Of Care Reviewed With -- patient;spouse OUTCOME EVALUATION NOTE: OUTCOME SUMMARY: V/S as charted. Oriented X4. Independent in room. BEVERLY drain flushed without issue. Denies pain, SOB,numbness, tingling. No acute events. Will CTM and notify team of any changes. PLAN MOVING FORWARD: I+O ABX PICC placement D/C planning INDIVIDUALIZED FALL PREVENTION INTERVENTIONS: Patient-specific fall risk factors per assessment: [current deficits]: IV sites Assistance [level of assistance required for transfers and ambulation]: Indep Supervision [direct monitoring required during toileting and ADLs]: Indep Surveillance [continuous indirect monitoring]: Purposeful rounding Patient-specific fall prevention interventions for sensory deficits provided, if applicable: N/A CPG GOAL OUTCOME EVALUATION: * Plan of Care - Germaine Rivera RN - 09/06/2019 4:34 PM EDT Problem: Patient Care Overview Goal: Plan of Care Review Outcome: Ongoing (Interventions Implemented as Appropriate) 09/04/19 2235 09/06/19 0900 Plan of Care Review Progress progress towards functional goals is fair -- Coping/Psychosocial Plan Of Care Reviewed With -- patient OUTCOME EVALUATION NOTE: OUTCOME SUMMARY: Pt A&O x4 able to make needs known. Reports 0/10 pain. VSS on RA. BEVERLY drain in place draining a small amount of ford drainage. Dressing dry and intact. Pt received education on how to flush drain for when she is d/c from hospital. Understanding of teaching was verbalized, plan for pt to demonstrate tomorrow. No acute events this shift. Meds administered per MAY. Pt agreed to have PICC placed for outpatient IV abx, likely to be placed tomorrow. Will continue to monitor. Patient refusing to wear masimo. The reason pt gave for this refusal was spot check me. Nursing actions taken during this shift to address patient???s refusal included Education about importance of care Plan to address patient???s refusal include Nursing leadership notified PLAN MOVING FORWARD: PICC placement IV abx outpatient Drain teaching reinforced Monitor labs Neutropenic precautions INDIVIDUALIZED FALL PREVENTION INTERVENTIONS: Patient-specific fall risk factors per assessment: [current deficits]: Tubing, unfamiliar environment Assistance [level of assistance required for transfers and ambulation]: Ind. Supervision [direct monitoring required during toileting and ADLs]: n/a Surveillance [continuous indirect monitoring]: Room near unit station Patient-specific fall prevention interventions for sensory deficits provided, if applicable: [X] N/A CPG GOAL OUTCOME EVALUATION: * Plan of Care - Terrance Enciso RN - 09/06/2019 2:02 AM EDT Problem: Patient Care Overview Goal: Plan of Care Review Outcome: Ongoing (Interventions Implemented as Appropriate) 09/04/19223409/05/192140 Plan of Care Review Progress progress towards functional goals is fair -- Coping/Psychosocial Plan Of Care Reviewed With -- patient OUTCOME EVALUATION NOTE: OUTCOME SUMMARY: Leti Parry's vital signs stable. Patient is Alert. Oriented to person, place, time and situation. Pleasant. Independent in room. Zosyn continued. Waiting on microbio results. PLAN MOVING FORWARD: Continue assessment of patient primary problem, monitor for vital sign changes, update care team (MD) of changes/as needed. Possible transition to PO ABX pending microbio result-- may need PICC/IV abx before d/c. INDIVIDUALIZED FALL PREVENTION INTERVENTIONS: Patient-specific fall risk factors per assessment: [current deficits]: See Estes fall risk below. Assistance [level of assistance required for transfers and ambulation]: no assistance Supervision [direct monitoring required during toileting and ADLs]: Independent Surveillance [continuous indirect monitoring]: Room near nurses [facility] Patient-specific fall prevention interventions for sensory deficits provided, if applicable: [X] N/A CPG GOAL OUTCOME EVALUATION: Goals of care plan--ongoing Goal: Fall Prevention-Safe Patient Handling Outcome: Ongoing (Interventions Implemented as Appropriate) 09/05/19 0832 09/05/19 1020 09/05/192140 Daily Care Interventions Self-Care Promotion -- -- -- Estes Fall Risk History of Falling -- -- 0 Secondary Diagnosis -- -- 15 Ambulatory Aids -- -- 0 Intravenous Therapy/Heparin/Saline Lock -- -- 20 Gait/Transferring -- -- 0 Mental Status -- -- 0 Score -- -- 35 OTHER Estes Fall Risk -- -- Med Restraint Interventions Safety Promotion/Fall Prevention -- -- -- Positioning Body Position -- -- -- Activity Activity Type up ad estella -- -- Activity Assistance Provided -- independent -- Assistive Device Utilized -- none -- 09/05/19214109/06/19 0140 Daily Care Interventions Self-Care Promotion BADL personal objects within reach -- Estes Fall Risk History of Falling -- -- Secondary Diagnosis -- -- Ambulatory Aids -- -- Intravenous Therapy/Heparin/Saline Lock -- -- Gait/Transferring -- -- Mental Status -- -- Score -- -- OTHER Estes Fall Risk -- -- Restraint Interventions Safety Promotion/Fall Prevention -- fall prevention program maintained;nonskid shoes/slippers when out of bed;safety round/check completed Positioning Body Position -- independent Activity Activity Type -- -- Activity Assistance Provided -- -- Assistive Device Utilized -- -- * Plan of Care - Germaine Rivera RN - 09/05/2019 5:05 PM EDT Problem: Patient Care Overview Goal: Plan of Care Review Outcome: Ongoing (Interventions Implemented as Appropriate) 09/04/19 7587 Plan of Care Review Progress progress towards functional goals is fair Coping/Psychosocial Plan Of Care Reviewed With patient OUTCOME EVALUATION NOTE: OUTCOME SUMMARY: Pt arrived to 263 this afternoon. A&O x4 able to make needs known. Reports 0/10 pain. VSS on RA. Pt ambulates independently in room. at the bedside, attentive to pt. Pt ambulated around the unit this afternoon, no s/s of distress. BEVERLY drain draining mod amdount serosanguinous fluid. Willcontinue to monitor. Patient refusing to wear masimo. The reason pt gave for this refusal was just spot check me. Nursing actions taken during this shift to address patient???s refusal included Education about importance of care Plan to address patient???s refusal include Nursing leadership notified PLAN MOVING FORWARD: INDIVIDUALIZED FALL PREVENTION INTERVENTIONS: Patient-specific fall risk factors per assessment: [current deficits]: Tubing, hospital environment Assistance [level of assistance required for transfers and ambulation]: Independent Supervision [direct monitoring required during toileting and ADLs]: n/a Surveillance [continuous indirect monitoring]: Room near unit station Patient-specific fall prevention interventions for sensory deficits provided, if applicable: [X] N/A CPG GOAL OUTCOME EVALUATION: * Med Student Progress Note - Rizwan Lama - 09/05/2019 8:15 AM EDT Images from the original note were not included. Inpatient Medicine Progress Note ID: Leti Parry is a 68 y.o. 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 She was admitted to [facility] earlier this month for colitis c/b E.coli bacteremia. Patient was treated with flagyl and cipro originally and discharged on cipro. Initially stable, she then developed 1-week-hx of intermittent spiking fevers and was found to have a R lobe hepatic abscess on CT A/P. 24 hr events: - NAEO - Complaint of lower back stiffness - Large BM overnight Meds: Scheduled Meds: ??? filgrastim-sndz 480 mcg Subcutaneous Daily ??? sodium chloride 0.9 % (flush) 3-5 mL Intercatheter 2 times per day ??? piperacillin-tazobactam 3.375 g Intravenous Q8H ??? pantoprazole EC 20 mg Oral Daily ??? predniSONE 20 mg Oral Daily ??? sodium chloride 0.9 % (flush) 5 mL Intravenous BID ??? enoxaparin 40 mg Subcutaneous Nightly PRN Meds:.polyethylene glycoL (MIRALAX) oral powder, sodium chloride 0.9 % (flush), lidocaine, acetaminophen, ondansetron OR [DISCONTINUED] ondansetron, melatonin Vital Signs: Last value Range last 24 hrs Temperature Temp: 36.7 ??C (98.1 ??F) Temp: [36.7 ??C (98.1 ??F)-37 ??C (98.6 ??F)] Heart Rate Heart Rate: 58 Heart Rate: [58] Blood Pressure BP: 106/63 BP: (94-106)/(53-63) Respiratory Rate Resp: 16 Resp: [16] SpO2 SpO2: 97 % SpO2: [95 %-97 %] Patient Vitals for the past 168 hrs: Weight 09/01/191952 62.6 kg (138 lb) I/O: Intake/Output Summary (Last 24 hours) at 09/05/2019 1842 Last data filed at 09/05/2019 1100 Gross per 24 hour Intake 410 ml Output 15 ml Net 395 ml Physical Exam: Gen: alert and oriented, walking around comfortably HEENT: anicteric Cardio: bradycardic, regular rhythm, S1 and S2 noted, no m/r/g Resp: non-labored, CLAB GI: soft abdomen, normoactive BS, ND, RUQ tenderness to palpation along R costal margin (less so than yesterday) Labs Recent Labs 09/05/19 0452 09/04/1944209/03/19635 WBC 1.5* 1.9* 4.1 HGB 11.0* 12.0 12.0 HCT 35.8 38.4 39.6 PLATELET 266 296 315 Recent Labs 09/04/1944209/03/1963509/01/192207 NA 138 133* 134* K 4.1 3.8 4.0 CL 101 97* 94* CO2 27 26 27 BUN 9 10 10 CREATININE 0.49* 0.54* 0.67* Recent Labs 09/03/1936 09/01/192207 AST 15 25 ALT 32* 44* ALKPHOS 105 112* BILITOT 0.4 0.3 BILIDIR 0.1 0.1 Recent Labs 09/04/1944209/03/1936 09/01/192207 CALCIUM 9.4 9.2 8.8 Recent Labs 09/01/192207 INR 1.2 PT 13.6* PTT 31 No results for input(s): CK, TROPONINT in the last 168 hours. No results for input(s): POCGLU in the last 168 hours. No results for input(s): PROBNP in the last 168 hours. Micro Microbiology Results (Last 30 days) Procedure Component Value Units Date/Time Body Fluid Culture, Aerobic & Anaerobic Abdominal Fluid [[id number]] Collected: 09/02/19 1300 Lab Status: Preliminary result Specimen: Abdominal Fluid Updated: 09/05/19 141 Body Fluid Culture, Aerobic [[id number]] (Abnormal) Collected: 09/02/19 1300 Lab Status: Preliminary result Specimen: Abdominal Fluid Updated: 09/05/19 141 Body Fluid Culture Few Actinomyces species Gram Stain -- Many Neutrophils seen Many Gram Positive Cocci seen Few Gram Negative Rods seen Rare Gram Positive Rods seen Anaerobic Culture [[id number]] (Abnormal) Collected: 09/02/19 1300 Lab Status: Preliminary result Specimen: Abdominal Fluid Updated: 09/05/19 1251 Anaerobic Culture -- Moderate Clostridium species, not C perfringens Moderate Bacteroides fragilis Group Moderate Peptostreptococcus species COVID-19 PCR [[id number]] Collected: 09/02/19 0141 Lab Status: Final result Specimen: Nasopharyngeal Swab Updated: 09/02/19 0417 Rapid SARS-CoV-2 RNA Not Detected Comment: This result should be interpreted in combination with the clinical observations, patient history and epidemiological information. For testing of asymptomatic individuals, assay performance characteristics and clinical utility have not been evaluated. Testing for SARS-CoV-2 (Severe acute respiratory syndrome coronavirus 2, formerly known as 2019 novel coronavirus or 2019-nCoV) to aid in the diagnosis of COVID-19 is performed using the Simplexa COVID-19 Direct Assay by [employer] as authorized by the FDA issued Emergency Use Authorization (EUA). This assay is intended for In-vitro Diagnostic (IVD) use with nasopharyngeal swabs collected from individuals meeting the CDC criteria for testing. The assay is performed based on the instructions for use and additional guidance provided by the FDA. Testing is performed in the Microbiology Laboratory within the Department of Pathology and Laboratory Medicine at [facility], certified under the Clinical Laboratory Improvement Amendments of 1988 (CLIA), 42 U.S.C. section 263a, to perform high complexity tests. Assay performance has been verified according to clinical laboratory regulatory requirements. Test results are provided above. A result of Not Detected indicates that the viral RNA target is not present but does not preclude SARS-CoV-2 infection. False negative results may occur if a specimen is improperly collected, transported or handled; if amplification inhibitors are present; or if inadequate numbers of viral particles are present in the specimen. A result of Detected suggests a current or recent infection and the patient is presumed to be infected. Positive and negative predictive values for this test are highly dependent on disease prevalence. A result of Invalid indicates the inability to conclusively determine the presence or absence of SARS-CoV-2 RNA in the sample which can be due to a variety of factors. Recollection is recommended in the case of an invalid result. CDC COVID-19 criteria for testing on human specimens and clinical management guidance information are available at the CDC Coronavirus Disease 2019 (COVID-19) webpage under Information for Healthcare Professionals (https://www.cdc.gov/coronavirus/2019-ncov/hcp/index.html). SARS-CoV-2 Source SEAM [employer]ER Swab Blood culture [[id number]] Collected: 09/01/192207 Lab Status: Preliminary result Specimen: Blood Updated: 09/04/192300 Blood Culture No growth at 3 days. Blood culture [[id number]] Collected: 09/01/192207 Lab Status: Preliminary result Specimen: Blood Updated: 09/04/192300 Blood Culture No growth at 3 days. Imaging/Studies: CT A/P (08/31): showed R lobe abscess CT guided liver aspiration (09/01): abscess successfully drained, removed 5ml purulent fluid Body fluid culture aerobic (09/01): prelim results above, sensitivities pending Body fluid culture anaerobic (09/01): prelim results above, sensitivities pending Blood culture (09/01): no growth Assessment: 68 y.o. female with PMH of large granular lymphocytic leukemia, chronic neutropenia (neupogen on 08/15/19), and UC (on steroid taper) recently admitted to an OSH for 1-month-hx of colitis c/b E.coli bacteremia (treated with 20 days of ciprofloxacin). Patient was discharged and found to have a hepatic abscess following a 1-week history of intermittent spiking fevers. Today, Ms. Parry is feeling more energtic. The pain around her drain-site is well-managed on acetaminophen (rated 4/10 when moving this afternoon). Suction bulb at drain site outputting minimal serosanguinous fluid, followed by radiology team. Awaiting body fluid aerobic cx and sensitivity resultsfor what is likely a polymicrobial infection. WBC continues downtrending from 1.9 yesterday to 1.5 today (reported baseline of 2.0). ANC level also decreased from 0.60 yesterday to 0.42 today, reflecting severe neutropenia for which patient received GCSF in the AM per hematology service's recommendation. Patient was placed on neutropenic precautions. Plan: #Hepatic Abscess - F/U on body fluid culture sensitivities (09/01) - Continue piperacillin-tazobactam Q8H, narrow accordingly - Pain management: PRN acetaminophen 600mg - Forward flush every 12 hours with 3-5 mL of normal saline, per radiology note - F/U with radiology in 4 weeks for fluoroscopic drain check # Bacteremia (likely E. Coli) - Blood culture shows no growth, likely resolved but continue monitoring - Continue piperacillin-tazobactam Q8H, narrow accordingly # UC - Continue prednisone 20mg taper - Monitor clinical picture and WBC, consider CRP, ESR if signs of flare emerge - GI team following closely - Colonoscopy will be scheduled as outpatient, per GI service # Large granula lymphocytic leukemia - Patient of Dr. Jay, last seen by hematology on 08/25 - Received filgrastim-sndz 480mcg injection in AM - Follow morning CBC for WBC response #Other - Diet: Regular - DVT ppx: Enoxaparin SQ in evening - GI ppx: Pantoprazole 20mg - Consults: GI service, Radiology - code status: Full Code - Dispo: floor, likely dc to home in 1 day [facility] Medicine Team pager #[phone] Personal pager #[phone] Associated attestation - Terrance Santana MD - 09/06/2019 1:06 PM EDT I agree with the above note written by BOB Cao. Please see my additional, separate notefor any changes or amendments. Terrance Santana MD * Plan of Care - Mavis Ahuja RN - 09/04/2019 10:45 PM EDT Problem: Patient Care Overview Goal: Plan of Care Review Outcome: Ongoing (Interventions Implemented as Appropriate) 09/04/19 9327 Plan of Care Review Progress progress towards functional goals is fair Coping/Psychosocial Plan Of Care Reviewed With patient OUTCOME EVALUATION NOTE: OUTCOME SUMMARY: Patient is alert & oriented x 4, cooperative with care. Intermittently bradycardic (50's), other VSS on RA. Patient c/o lower back pain, gave prn tylenol & heating pad. Please see MAR for medication administration. Continue IV antibiotics. BEVERLY drain remains patent, dressing is CDI - flushed with 5mL NS without resistance, see doc flowsheet for output. Patient is independent in room, able to voice needs and concerns. Will continue to monitor and will notify MD of changes. Patient refusing to wear masimo. The reason pt gave for this refusal was I don't want to be attached to it overnight - spot check me. Nursing actions taken during this shift to address patient???s refusal included Education about importance of care Plan to address patient???s refusal include Nursing leadership notified Patient had a critical WBC of 1.53 & a critical ANC of 0.42 - MD notified. BMT diet & neutropenic precautions added. PLAN MOVING FORWARD: IV antibiotics BEVERLY drain maintenance Encourage ambulation Encourage PO intake Discharge planning INDIVIDUALIZED FALL PREVENTION INTERVENTIONS: Patient-specific fall risk factors per assessment: [current deficits]: Hospital environment, IV sites/tubing, pain control Assistance [level of assistance required for transfers and ambulation]: Independent Supervision [direct monitoring required during toileting and ADLs]: Independent Surveillance [continuous indirect monitoring]: Room near nurses station, call new within reach, masimo Patient-specific fall prevention interventions for sensory deficits provided, if applicable: [X] Yes CPG GOAL OUTCOME EVALUATION: Ongoing Goal: Fall Prevention-Safe Patient Handling Outcome: Ongoing (Interventions Implemented as Appropriate) 09/03/19 0909/04/19193009/04/192199 Daily Care Interventions Self-Care Promotion -- BADL personal objects within reach -- Estes Fall Risk History of Falling -- 0 -- Secondary Diagnosis -- 15 -- Ambulatory Aids -- 0 -- Intravenous Therapy/Heparin/Saline Lock -- 20 -- Gait/Transferring -- 0 -- Mental Status -- 0 -- Score -- 35 -- OTHER Estes Fall Risk -- Med -- Restraint Interventions Safety Promotion/Fall Prevention -- -- safety round/check completed Positioning Body Position -- -- independent Activity Activity Type -- activity adjusted per tolerance -- Activity Assistance Provided -- independent -- Assistive Device Utilized none -- -- Goal: Infection Control Outcome: Ongoing (Interventions Implemented as Appropriate) 09/04/19193009/04/192199 Safety Interventions Isolation Precautions -- standard precautions maintained Infection Prevention -- single patient room provided Coping Strategies Supportive Measures relaxation techniques promoted -- * Plan of Care - Franchesca Reis RN - 09/04/2019 5:21 PM EDT Problem: Patient Care Overview Goal: Plan of Care Review 09/03/192 09/03/192107 Plan of Care Review Progress improving -- Coping/Psychosocial Plan Of Care Reviewed With -- patient;spouse * Consult Note - Briana King DO - 09/04/2019 9:43 AM EDT Images from the original note were not included. INFECTIOUS DISEASE CONSULTATION NOTE Reason for Consult: Hepatic abscess Consulting Service: Hospital medicine Consulting Attending: Alexis Caro MD Admission Date: 09/01/2019 History of Present Illness: 68 y.o. female with a history of large granular lymphocytic leukemia, chronic neutropenia, ulcerative colitis on steroid taper, recent E. Coli And strep constellatus bacteremia s/p cipro who was admitted on 08/31 in the setting of fevers and hepatic abscess. Notably, patient was admitted to [facility] earlier this month in the setting of rectosigmoid thickening on CT scan (presenting symptoms of fevers and fatigue). Additional findings per radiology read included a 16 mm low attenuation lesion at the right hepatic lobe. On 08/11, blood cultures were growing E. Coli on one set of cultures, and E. Coli and strep constellatus on the other set. TTE was unremarkable without vegetations. Stool cultures and Cdiff were negative. She was narrowed to cipro (E.colicultures susceptible), on which she was discharged. The strep constellatus was thought to be a contaminant. In the setting of her imaging findings and history of ulcerative colitis, she was discharged on prednisone 60 mg qd; she had a sigmoidoscopy there that showed evidence of active colitis. Following discharge, plan per GI telehealth visit (Dr. Oliveros) was to taper her steroids down quickly and for colonoscopy in 8-12 wks to assess response. Following discharge, she had been experiencing intermittent fevers. Her course of cipro was extended and she was also placed on Augmentin after presenting to her local ED. Repeat CT abdomen on 08/31 showed evidence of right hepatic lobe abscess (35 mm). Given her fevers and repeat CT abdomen findings, she presented to the ED on 08/31 and was admitted to hospital medicine and she was started on zosyn. IR was engaged, and placed CT guided hepatic drain on 09/01. Cultures show many GPCs, few GNRs, rare GPRs thus far. Presently, at bedside, she feels fatigue but denies any localizing symptoms including nausea, abdominal pain, or diarrhea. Review of Systems: Pertinent positives and negatives noted in HPI. 14 point ROS otherwise negative Past Medical History: History reviewed. No pertinent past medical history. Past Surgical History: Past Surgical History: Procedure Laterality Date ??? CT ASPIRATION LIVER 09/02/2019 CT Guided Aspiration Liver 09/02/2019 [facility] RAD CAT SCAN ??? PRO BONE MARROW ASPIRATION W/BX THROUGH SAME INCISION/SITE Right 01/08/2017 ([facility]) BONE MARROW ASP PERFORMED W/BX THRU BX INCISION (WRVU 0.16) performed by Lee Ann Jay MD at [facility] OSC ??? PRO BONE MARROW BX, NEEDLE/TROCAR Right 01/08/2017 ([facility]) BONE MARROW,BIOPSY (WRVU 1.37) performed by Lee Ann Jay MD at [facility] ??? PRO COLONOSCOPY, BIOPSY 07/05/2011 COLONOSCOPY FLEXIBLE, WITH BX performed by MARY CASTRO at [facility] ENDOSCOPY ??? PRO COLONOSCOPY, REMV LESN, SNARE 07/05/2011 COLONOSCOPY, POLYPECTOMY, REMOVAL LESION BY SNARE performed by MARY CASTRO at [facility] ENDOSCOPY ??? PRO SIGMOIDOSCOPY, DIAGNOSTIC N/A 09/02/2019 FLEXIBLE SIGMOIDOSCOPY performed by Mary Castro MD at [facility] ENDOSCOPY Medications: ??? oxyCODONE (Roxicodone) tablet 5 mg ??? sodium chloride 0.9 % (flush) flush 3-5 mL ??? piperacillin-tazobactam (ZOSYN) 3.375 g vial attach to sodium chloride 0.9% 50 mL Mini-Bag Plus ??? pantoprazole EC (Protonix) tablet 20 mg ??? predniSONE (Deltasone) tablet 20 mg ??? sodium chloride 0.9 % (flush) flush 5 mL ??? sodium chloride 0.9 % (flush) flush 5-20 mL ??? lidocaine (XYLOCAINE) 10 mg/mL (1 %) injection 3 mg ??? enoxaparin (LOVENOX) injection 40 mg ??? acetaminophen (Tylenol) tablet 650 mg ??? ondansetron (Zofran) tablet 4-8 mg OR [DISCONTINUED] ondansetron (ZOFRAN) injection 4-8 mg ??? melatonin tablet 3 mg Prior Antimicrobial History: Medications that may interact with Antimicrobials: Allergies: Allergies Allergen Reactions ??? Benzalkonium Chloride Family History: Noncontributory Social History: Lives in [facility] with her 6 drinks per week Nonsmoker No illicits No pets Travel - to [place] in Apr, to [place] in May No camping, no suspicious food or water intake Physical Exam: Last value Range last 24 hrs Temperature Temp: 36.5 ??C (97.7 ??F) Temp: [36 ??C (96.8 ??F)-36.6 ??C (97.9 ??F)] Heart Rate Heart Rate: 55 Heart Rate: -- Blood Pressure BP: 113/72 BP: (102-136)/(63-83) Respiratory Rate Resp: 16 Resp: [16-18] SpO2 SpO2: 95 % SpO2: [94 %-95 %] General: Alert, oriented, in no acute distress Head: NC/AT EENT: [place]cler[place] anicteric Cardiovascular: RRR, no m/r/g Pulmonary: CTAB Abdomen: soft, nontender throughout, normal bowel sounds. Hepatic drain in place, draining light serosanguinous fluid Ext: Warm, well perfused, no edema Skin: No rashes or lesions Neuro: without focal deficits Laboratory: Recent Labs 09/04/19 0443 09/03/19 0636 09/01/19 2208 WBC 1.9* 4.1 5.5 HGB 12.0 12.0 11.2* HCT 38.4 39.6 35.4* PLATELET 296 315 308 Recent Labs 09/04/19 0443 09/03/19 0636 09/01/19 2208 NA 138 133* 134* K 4.1 3.8 4.0 CL 101 97* 94* CO2 27 26 27 BUN 9 10 10 CREATININE 0.49* 0.54* 0.67* Recent Labs 09/03/19 0636 09/01/19 2208 AST 15 25 ALT 32* 44* ALKPHOS 105 112* BILITOT 0.4 0.3 BILIDIR 0.1 0.1 No results found for: CRP No results found for: SEDRATE Component Value Date/Time SPGRAVITYUA >=1.030 (A) 09/01/2019 2333 PHUADIP 5.0 09/01/2019 2333 PROTEINUADIP 30 (A) 09/01/2019 2333 GLUCOSEU Negative 09/01/2019 2333 KETONESUA Trace (A) 09/01/2019 2333 UROBILIUADIP Normal 09/01/2019 233 BLOODUADIP Trace (A) 09/01/2019 2333 NITRATEUA Negative 09/01/20193 LEUKOESTERUA Negative 09/01/20192332 WBCUA 1 09/01/2019 2333 BILIRUBINUA Negative 09/01/20192332 Micro: Microbiology Results (Last 30 days) Procedure Component Value Units Date/Time Body Fluid Culture, Aerobic & Anaerobic Abdominal Fluid [[id number]] Collected: 09/02/19 1300 Lab Status: Preliminary result Specimen: Abdominal Fluid Updated: 09/03/19 1409 Body Fluid Culture, Aerobic [[id number]] (Abnormal) Collected: 09/02/19 1300 Lab Status: Preliminary result Specimen: Abdominal Fluid Updated: 09/03/19 0807 Body Fluid Culture No growth to date. Gram Stain -- Many Neutrophils seen Many Gram Positive Cocci seen Few Gram Negative Rods seen Rare Gram Positive Rods seen Anaerobic Culture [[id number]] Collected: 09/02/19 1300 Lab Status: Preliminary result Specimen: Abdominal Fluid Updated: 09/03/19 1409 Anaerobic Culture No anaerobic organisms isolated to date COVID-19 PCR [[id number]] Collected: 09/02/19 0141 Lab Status: Final result Specimen: Nasopharyngeal Swab Updated: 09/02/19 0417 Rapid SARS-CoV-2 RNA Not Detected Comment: This result should be interpreted in combination with the clinical observations, patient history and epidemiological information. For testing of asymptomatic individuals, assay performance characteristics and clinical utility have not been evaluated. Testing for SARS-CoV-2 (Severe acute respiratory syndrome coronavirus 2, formerly known as 2019 novel coronavirus or 2019-nCoV) to aid in the diagnosis of COVID-19 is performed using the Simplexa COVID-19 Direct Assay by [employer] as authorized by the FDA issued Emergency Use Authorization (EUA). This assay is intended for In-vitro Diagnostic (IVD) use with nasopharyngeal swabs collected from individuals meeting the CDC criteria for testing. The assay is performed based on the instructions for use and additional guidance provided by the FDA. Testing is performed in the Microbiology Laboratory within the Department of Pathology and Laboratory Medicine at [facility], certified under the Clinical Laboratory Improvement Amendments of 1988 (CLIA), 42 U.S.C. section 263a, to perform high complexity tests. Assay performance has been verified according to clinical laboratory regulatory requirements. Test results are provided above. A result of Not Detected indicates that the viral RNA target is not present but does not preclude SARS-CoV-2 infection. False negative results may occur if a specimen is improperly collected, transported or handled; if amplification inhibitors are present; or if inadequate numbers of viral particles are present in the specimen. A result of Detected suggests a current or recent infection and the patient is presumed to be infected. Positive and negative predictive values for this test are highly dependent on disease prevalence. A result of Invalid indicates the inability to conclusively determine the presence or absence of SARS-CoV-2 RNA in the sample which can be due to a variety of factors. Recollection is recommended in the case of an invalid result. CDC COVID-19 criteria for testing on human specimens and clinical management guidance information are available at the CDC Coronavirus Disease 2019 (COVID-19) webpage under Information for Healthcare Professionals (https://www.cdc.gov/coronavirus/2019-ncov/hcp/index.html). SARS-CoV-2 Source [employer] Swab Blood culture [[id number]] Collected: 09/01/192207 Lab Status: Preliminary result Specimen: Blood Updated: 09/03/192300 Blood Culture No growth at 2 days. Blood culture [[id number]] Collected: 09/01/192207 Lab Status: Preliminary result Specimen: Blood Updated: 09/03/192300 Blood Culture No growth at 2 days. Therapeutic agent Dose and interval Start date End date Scheduled Meds: ??? sodium chloride 0.9 % (flush) 3-5 mL Intercatheter 2 times per day ??? piperacillin-tazobactam 3.375 g Intravenous Q8H ??? pantoprazole EC 20 mg Oral Daily ??? predniSONE 20 mg Oral Daily ??? sodium chloride 0.9 % (flush) 5 mL Intravenous BID ??? enoxaparin 40 mg Subcutaneous Nightly Continuous Infusions: PRN Meds:.oxyCODONE, sodium chloride 0.9 % (flush), lidocaine, acetaminophen, ondansetron OR [DISCONTINUED] ondansetron, melatonin Radiology/Studies/Procedures: CT Guided Aspiration Liver IMPRESSION Impression: Successful CT-guided drain placement in a hepatic fluid collection. ?? Plan/disposition: 1) To Angio recovery room, may discharge to floor when meets criteria. 2) Forward flush every 12 hours with 3-5 mL of normal saline. Record outputs daily. 3) Patient to return in 4 weeks for fluoroscopic drain check. Impression: 68 y.o. female with a history of large granular lymphocytic leukemia, chronic neutropenia, ulcerative colitis on steroid taper, recent E. Coli And strep constellatus bacteremia s/p cipro who was admitted on 08/31 in the setting of fevers and hepatic abscess. Infectious disease was consulted to weighin on therapy for her abscess. During admission to [facility], there was CT evidence of a low attenuationlesion of the right hepatic lobe, which appears to have progressed to what is consistent with an abscess as of repeat CT scan on 08/31, in the setting of being narrowed to cipro monotherapy as an outpatient. Most probable source of her abscess is spread from the colitis seen on the initial CT imaging. Her blood cultures at [facility] had grown E. Coli and strep constellatus; her initial gram stain fromnewly placed abscess drain shows that her infection is likely polymicrobial. For now, while awaiting culture results and sensitivities, recommend continuing coverage with zosyn, which will provide earnestine quate aerobic and anaerobic coverage. Full recommendations as below. Recommendations: - continue zosyn while awaiting drain cultures/sensitivties. We have also requested full data from blood cultures during previous admission to [facility] - hold PICC placement, as it is possible that transition to oral antibiotics may be possible - per IR, hepatic drain to remain in place for 4 weeks. Anticipate concurrent ID follow up as an outpatient to discuss ongoing antibiotic therapy This patient was discussed with ID attending Dr. King. Recommendations to be discussed with primary treating team. Thank you very much for this interesting consult and allowing me to participate in this patient's care. The Infectious Disease consult service will continue to follow patient. Do not hesitate to page with any further questions or concerns. Nolan Rodrigues MD PGY-3, Internal medicine Infectious disease consult service 09/04/2019 1:55 PM I have seen the patient and reviewed the above history and physical and I agree with the details aswritten. The assessment and plan were formulated in discussion with me and I agree with them as documented. 68F diagnosed with UC in 2011 who has not been on any therapy and presented to [facility] at the beginning of August with evidence of colitis and polymicrobial bacteremia (Ecoli and Strep constellatus). At that time she had a CT on 08/10 which showed a 15 mm liver lesion. She was discharged on high dose Prednisone in addition to Ciprofloxacin which she has been on since and was recently started on Augmentin in addition to the Ciprofloxacin after repeat ED visit for continued fevers. She was ultimately re-admitted and CT now demonstates 35 mm liver abscess in the same location as prior lesion and colitis is a bit better. IR drain was placed on 09/01 and gram stain shows multiple different bacteria. Shehas been on Zosyn and is feeling better. She denies any GI complaints and fevers have resolved. Herexam is benign. Advised that liver infection likely related to IBD flare and will need good controlof IBD in order to prevent future disseminated infection. Will need to continue broad spectrum antibiotics for at least 4 weeks with repeat imaging to reassess size of liver abscess. Final antibioticregimen to be determined but will need to cover gram positive, gram negative and anaerobes. Briana King DO, MPH Infectious Disease * Plan of Care - Claudine Huertas RN - 09/04/2019 8:31 AM EDT Problem: Patient Care Overview Goal: Plan of Care Review Outcome: Ongoing (Interventions Implemented as Appropriate) 09/03/19 1832 09/03/192107 Plan of Care Review Progress improving -- Coping/Psychosocial Plan Of Care Reviewed With -- patient;spouse OUTCOME EVALUATION NOTE: OUTCOME SUMMARY: Pt A+O x4. VSS on RA. Bradycardic throughout the night average 45 bpm; team aware. Zosyn running atstart of shift given in 2 different IVs which had to both be removed afterward. A new IV placed on right arm which tolerated the midnight dose of Zosyn but was also looking slightly irritated from the dose. PICC consult in place for today. Independent in room and moderate pain reported in drain site. Tylenol given for pain and heat packs and repositioning utilized. Drain flushed x 1 and emptied x2 for 20 mL total output this shift. 1 BM at start of shift; voiding independently in the night; urine output not accurately measured/not visualized. Critical WBC count 1.9 this am; team pager notified. Will continue to monitor, assess for and address comfort needs, ensure safety, and notify MD of any changes. PLAN MOVING FORWARD: Pain management Encourage repositioning and mobility as tolerated Monitor respiratory status Monitor I/O's Encourage ADL's Skin care and monitoring Encourage/support family involvement Discharge planning INDIVIDUALIZED FALL PREVENTION INTERVENTIONS: Patient-specific fall risk factors per assessment: [current deficits]: weakness, pain, IV tubing, hospital environment Assistance [level of assistance required for transfers and ambulation]:Independent in room Supervision [direct monitoring required during toileting and ADLs]: Able to reliably summons for assistance Surveillance [continuous indirect monitoring]: Purposeful rounding, room near nsg station, call light within reach, masimo on Patient-specific fall prevention interventions for sensory deficits provided, if applicable: As above CPG GOAL OUTCOME EVALUATION: Continue goals of care Goal: Fall Prevention-Safe Patient Handling Outcome: Ongoing (Interventions Implemented as Appropriate) 09/03/19 0909 09/03/19 1147 09/03/19 1052 Daily Care Interventions Self-Care Promotion -- -- BADL personal routines maintained Estes Fall Risk History of Falling -- -- -- Secondary Diagnosis -- -- -- Ambulatory Aids -- -- -- Intravenous Therapy/Heparin/Saline Lock -- -- -- Gait/Transferring -- -- -- Mental Status -- -- -- Score -- -- -- OTHER Estes Fall Risk -- -- -- Restraint Interventions Safety Promotion/Fall Prevention -- -- -- Positioning Body Position -- -- -- Activity Activity Type -- up in chair -- Activity Assistance Provided independent -- -- Assistive Device Utilized none -- -- 09/03/19211109/04/19 02009/04/19 0356 Daily Care Interventions Self-Care Promotion -- -- -- Estes Fall Risk History of Falling 0 -- -- Secondary Diagnosis 15 -- -- Ambulatory Aids 0 -- -- Intravenous Therapy/Heparin/Saline Lock 20 -- -- Gait/Transferring 0 -- -- Mental Status 0 -- -- Score 35 -- -- OTHER Estes Fall Risk Med -- -- Restraint Interventions Safety Promotion/Fall Prevention -- -- safety round/check completed Positioning Body Position -- independent -- Activity Activity Type -- -- -- Activity Assistance Provided -- -- -- Assistive Device Utilized -- -- -- Goal: Infection Control Outcome: Ongoing (Interventions Implemented as Appropriate) 09/03/19 0909 09/04/19 0356 Safety Interventions Isolation Precautions -- standard precautions maintained Infection Prevention -- single patient room provided Coping Strategies Supportive Measures positive reinforcement provided;goal setting facilitated;verbalization of feelings encouraged -- Goal: Discharge Needs Assessment Outcome: Ongoing (Interventions Implemented as Appropriate) 09/02/19 0825 Discharge Needs Assessment Discharge Disposition still a patient * Med Student Progress Note - Rizwan Lama - 09/04/2019 6:07 AM EDT Images from the original note were not included. Inpatient Medicine Progress Note ID: Leti Parry is a 68 y.o. 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 She was admitted to [facility] earlier this month for colitis c/b E.coli bacteremia. Patient was treated with flagyl and cipro originally and discharged on cipro. Initially stable, she then developed 1-week-hx of intermittent spiking fevers and was found to have a R lobe hepatic abscess on CT A/P. 24 hr events: - NAEO - Pain 1-2/ overnight - Small regular BM - Suction bulb output 5cc serosanguinous fluid, 5cc flush Meds: Scheduled Meds: ??? sodium chloride 0.9 % (flush) 3-5 mL Intercatheter 2 times per day ??? piperacillin-tazobactam 3.375 g Intravenous Q8H ??? pantoprazole EC 20 mg Oral Daily ??? predniSONE 20 mg Oral Daily ??? sodium chloride 0.9 % (flush) 5 mL Intravenous BID ??? enoxaparin 40 mg Subcutaneous Nightly PRN Meds:.oxyCODONE, sodium chloride 0.9 % (flush), lidocaine, acetaminophen, ondansetron OR [DISCONTINUED] ondansetron, melatonin Vital Signs: Last value Range last 24 hrs Temperature Temp: 36.5 ??C (97.7 ??F) Temp: [36 ??C (96.8 ??F)-36.6 ??C (97.9 ??F)] Heart Rate Heart Rate: 55 Heart Rate: -- Blood Pressure BP: 113/72 BP: (102-136)/(63-83) Respiratory Rate Resp: 16 Resp: [16-18] SpO2 SpO2: 95 % SpO2: [94 %-95 %] Patient Vitals for the past 168 hrs: Weight 09/01/191952 62.6 kg (138 lb) I/O: Intake/Output Summary (Last 24 hours) at 09/04/2019 1404 Last data filed at 09/04/2019 0638 Gross per 24 hour Intake 710 ml Output 820 ml Net -110 ml Physical Exam: Gen: alert and oriented, sitting up comfortably HEENT: anicteric Cardio: bradycardic, regular rhythm, S1 and S2 noted, no m/r/g Resp:non-labored, CLAB GI: soft abdomen, normoactive BS, ND, RUQ tenderness to palpation along R costal margin Labs Recent Labs 09/04/19 0443 09/03/19 0636 09/01/19 2208 WBC 1.9* 4.1 5.5 HGB 12.0 12.0 11.2* HCT 38.4 39.6 35.4* PLATELET 296 315 308 Recent Labs 09/04/19 0443 09/03/19 0636 09/01/198 NA 138 133* 134* K 4.1 3.8 4.0 CL 101 97* 94* CO2 27 26 27 BUN 9 10 10 CREATININE 0.49* 0.54* 0.67* Recent Labs 09/03/19 0636 09/01/19 2208 AST 15 25 ALT 32* 44* ALKPHOS 105 112* BILITOT 0.4 0.3 BILIDIR 0.1 0.1 Recent Labs 09/04/19 0443 09/03/19 0636 09/01/19 2208 CALCIUM 9.4 9.2 8.8 Recent Labs 09/01/19 220 INR 1.2 PT 13.6* PTT 31 No results for input(s): CK, TROPONINT in the last 168 hours. No results for input(s): POCGLU in the last 168 hours. No results for input(s): PROBNP in the last 168 hours. Micro Microbiology Results (Last 30 days) Procedure Component Value Units Date/Time Body Fluid Culture, Aerobic & Anaerobic Abdominal Fluid [[id number]] Collected: 09/02/19 1300 Lab Status: Preliminary result Specimen: Abdominal Fluid Updated: 09/03/19 1409 Body Fluid Culture, Aerobic [[id number]] (Abnormal) Collected: 09/02/19 1300 Lab Status: Preliminary result Specimen: Abdominal Fluid Updated: 09/03/19 0807 Body Fluid Culture No growth to date. Gram Stain -- Many Neutrophils seen Many Gram Positive Cocci seen Few Gram Negative Rods seen Rare Gram Positive Rods seen Anaerobic Culture [[id number]] Collected: 09/02/19 1300 Lab Status: Preliminary result Specimen: Abdominal Fluid Updated: 09/03/19 1409 Anaerobic Culture No anaerobic organisms isolated to date COVID-19 PCR [[id number]] Collected: 09/02/19 0141 Lab Status: Final result Specimen: Nasopharyngeal Swab Updated: 09/02/19 0417 Rapid SARS-CoV-2 RNA Not Detected Comment: This result should be interpreted in combination with the clinical observations, patient history and epidemiological information. For testing of asymptomatic individuals, assay performance characteristics and clinical utility have not been evaluated. Testing for SARS-CoV-2 (Severe acute respiratory syndrome coronavirus 2, formerly known as 2019 novel coronavirus or 2019-nCoV) to aid in the diagnosis of COVID-19 is performed using the Simplexa COVID-19 Direct Assay by [employer] as authorized by the FDA issued Emergency Use Authorization (EUA). This assay is intended for In-vitro Diagnostic (IVD) use with nasopharyngeal swabs collected from individuals meeting the CDC criteria for testing. The assay is performed based on the instructions for use and additional guidance provided by the FDA. Testing is performed in the Microbiology Laboratory within the Department of Pathology and Laboratory Medicine at [facility], certified under the Clinical Laboratory Improvement Amendments of 1988 (CLIA), 42 U.S.C. section 263a, to perform high complexity tests. Assay performance has been verified according to clinical laboratory regulatory requirements. Test results are provided above. A result of Not Detected indicates that the viral RNA target is not present but does not preclude SARS-CoV-2 infection. False negative results may occur if a specimen is improperly collected, transported or handled; if amplification inhibitors are present; or if inadequate numbers of viral particles are present in the specimen. A result of Detected suggests a current or recent infection and the patient is presumed to be infected. Positive and negative predictive values for this test are highly dependent on disease prevalence. A result of Invalid indicates the inability to conclusively determine the presence or absence of SARS-CoV-2 RNA in the sample which can be due to a variety of factors. Recollection is recommended in the case of an invalid result. CDC COVID-19 criteria for testing on human specimens and clinical management guidance information are available at the CDC Coronavirus Disease 2019 (COVID-19) webpage under Information for Healthcare Professionals (https://www.cdc.gov/coronavirus/2019-ncov/hcp/index.html). SARS-CoV-2 Source [employer] Swab Blood culture [[id number]] Collected: 09/01/192207 Lab Status: Preliminary result Specimen: Blood Updated: 09/03/192300 Blood Culture No growth at 2 days. Blood culture [[id number]] Collected: 09/01/192207 Lab Status: Preliminary result Specimen: Blood Updated: 09/03/192300 Blood Culture No growth at 2 days. Imaging/Studies: CT A/P (08/31): showed R lobe abscess CT guided liver aspiration (09/01): abscess successfully drained, removed 5ml purulent fluid Body fluid culture aerobic (09/01): prelim results above, sensitivities Body fluid culture anaerobic (09/01): no growth Blood culture (09/01): no growth Assessment: 68 y.o. female with PMH of large granular lymphocytic leukemia, chronic neutropenia (neupogen on 08/15/19), and UC (on steroid taper) recently admitted to an OSH for 1-month-hx of colitis c/b E.coli bacteremia (treated with 20 days of ciprofloxacin). Patient was discharged and found to have a hepatic abscess following a 1-week history of intermittent spiking fevers. Today, Ms. Parry is feeling more energtic. The pain around her drain-site is well-managed on acetaminophen (rated 4/10 when moving this afternoon). Suction bulb at drain site outputting minimal serosanguinous fluid, followed by radiology team. Awaiting body fluid aerobic cx and sensitivity resultsfor what is likely a polymicrobial infection. WBC continues downtrending from 4.1 yesterday to 1.9 today (reported baseline of 2.0). ANC level also decreased from 2.33 yesterday to 0.60 today, reflecting moderate neutropenia. State of immunosuppression should be considered when determining route of abx administration on discharge. Plan: #Hepatic Abscess - F/U on body fluid culture sensitivities (09/01) - Continue piperacillin-tazobactam Q8H, narrow accordingly - Pain management: PRN acetaminophen 600mg - Forward flush every 12 hours with 3-5 mL of normal saline, per radiology note - F/U with radiology in 4 weeks for fluoroscopic drain check # Bacteremia (likely E. Coli) - Blood culture shows no growth, likely resolved but continue monitoring - Continue piperacillin-tazobactam Q8H, narrow accordingly # UC - Continue prednisone 20mg taper - Monitor clinical picture and WBC, consider CRP, ESR if signs of flare emerge - GI team following closely - Flexible sigmoidoscopy to be rescheduled # Large granula lymphocytic leukemia - Patient of Dr. Jay, last seen by hematology on 08/25 - S/p BM stimulant on 08/14 #Other - Diet: Regular - DVT ppx: Enoxaparin SQ in evening - GI ppx: Pantoprazole 20mg - Consults: GI service, Radiology - code status: Full Code - Dispo: floor, likely dc to home in 1 day Rizwan Lama, MS4 Hospital Medicine Team pager #[phone] Personal pager [phone] * Plan of Care - Marylu Shah RN - 09/03/2019 6:45 PM EDT Problem: Patient Care Overview Goal: Plan of Care Review Outcome: Ongoing (Interventions Implemented as Appropriate) 09/03/19 1832 Plan of Care Review Progress improving Coping/Psychosocial Plan Of Care Reviewed With patient;spouse OUTCOME EVALUATION NOTE: OUTCOME SUMMARY: Patient was given one dose of PRN Tylenol for right back/flank pain at liver biopsy/drain site. Patient is ambulating within her room and sitting up in the chair independently. She states that her pain level is 0/10 when she is not moving and that she is able to move about the room with minimal discomfort. Appetite is good. No fevers this shift. PLAN MOVING FORWARD: Continue to administer IV antibiotics as ordered. Encourage activity as tolerated. Flush BEVERLY drain as ordered and monitor its output. Notify MD of any change in status. INDIVIDUALIZED FALL PREVENTION INTERVENTIONS: Patient-specific fall risk factors per assessment: [current deficits]: Weakness/pain Assistance [level of assistance required for transfers and ambulation]: independent Supervision [direct monitoring required during toileting and ADLs]: Eyes on/hands on Surveillance [continuous indirect monitoring]: Purposeful rounding Patient-specific fall prevention interventions for sensory deficits provided, if applicable: Yes CPG GOAL OUTCOME EVALUATION: * Med Student Progress Note - Rizwan Lama - 09/03/2019 8:16 AM EDT Images from the original note were not included. Inpatient Medicine Progress Note ID: Leti Parry is a 68 y.o. 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 She was admitted to [facility] earlier this month for colitis c/b E.coli bacteremia. Patient was treated with flagyl and cipro originally and discharged on cipro. Initially stable, she then developed 1-week-hx of intermittent spiking fevers and was found to have a R lobe hepatic abscess on CT A/P. 24 hr events: - NAEO - Pain well-managed - Pt refused pantoprazole - IV hydromorphone 0.2mg d/c after 3am - No BM since abscess drain Meds: Continuous Infusions: ??? lactated Ringers 75 mL/hr (09/02/192024) Scheduled Meds: ??? piperacillin-tazobactam 3.375 g Intravenous Q8H ??? pantoprazole EC 20 mg Oral Daily ??? predniSONE 20 mg Oral Daily ??? sodium chloride 0.9 % (flush) 5 mL Intravenous BID ??? enoxaparin 40 mg Subcutaneous Nightly PRN Meds:.sodium chloride 0.9 % (flush), lidocaine, acetaminophen, ondansetron OR ondansetron, melatonin, oxyCODONE Vital Signs: Last value Range last 24 hrs Temperature Temp: 36.5 ??C (97.7 ??F) Temp: [36.5 ??C (97.7 ??F)-37.6 ??C (99.7 ??F)] Heart Rate Heart Rate: 55 Heart Rate: [55-93] Blood Pressure BP: 95/52 BP: (92-118)/(51-81) Respiratory Rate Resp: 16 Resp: [13-22] SpO2 SpO2: 96 % SpO2: [91 %-97 %] Patient Vitals for the past 168 hrs: Weight 09/01/191952 62.6 kg (138 lb) I/O: Intake/Output Summary (Last 24 hours) at 09/03/2019 0816 Last data filed at 09/03/2019 0600 Gross per 24 hour Intake 245 ml Output 2120 ml Net -1875 ml Physical Exam: Gen: alert and oriented, sitting up comfortably but wincing ocassionally with movement HEENT: anicteric Cardio: bradycardic, regular rhythm, S1 and S2 noted, no m/r/g Resp: taking small controlled breaths, not labored GI: soft abdomen, normoactive BS, ND, some RUQ tenderness to palpation along costal margin Labs Recent Labs 09/03/1963509/01/192207 WBC 4.1 5.5 HGB 12.0 11.2* HCT 39.6 35.4* PLATELET 315 308 Recent Labs 09/03/1963509/01/192207 NA 133* 134* K 3.8 4.0 CL 97* 94* CO2 26 27 BUN 10 10 CREATININE 0.54* 0.67* Recent Labs 09/03/19 0636 09/01/192207 AST 15 25 ALT 32* 44* ALKPHOS 105 112* BILITOT 0.4 0.3 BILIDIR 0.1 0.1 Recent Labs 09/03/19 0636 09/01/192207 CALCIUM 9.2 8.8 Recent Labs 09/01/192207 INR 1.2 PT 13.6* PTT 31 No results for input(s): CK, TROPONINT in the last 168 hours. No results for input(s): POCGLU in the last 168 hours. No results for input(s): PROBNP in the last 168 hours. Micro Microbiology Results (Last 30 days) Procedure Component Value Units Date/Time Body Fluid Culture, Aerobic & Anaerobic Abdominal Fluid [[id number]] Collected: 09/02/19 1300 Lab Status: In process Specimen: Abdominal Fluid Updated: 09/03/19 0807 Body Fluid Culture, Aerobic [[id number]] (Abnormal) Collected: 09/02/19 1300 Lab Status: Preliminary result Specimen: Abdominal Fluid Updated: 09/03/19 0807 Body Fluid Culture No growth to date. Gram Stain -- Many Neutrophils seen Many Gram Positive Cocci seen Few Gram Negative Rods seen Rare Gram Positive Rods seen COVID-19 PCR [[id number]] Collected: 09/02/19 0141 Lab Status: Final result Specimen: Nasopharyngeal Swab Updated: 09/02/19 0417 Rapid SARS-CoV-2 RNA Not Detected Comment: This result should be interpreted in combination with the clinical observations, patient history and epidemiological information. For testing of asymptomatic individuals, assay performance characteristics and clinical utility have not been evaluated. Testing for SARS-CoV-2 (Severe acute respiratory syndrome coronavirus 2, formerly known as 2019 novel coronavirus or 2019-nCoV) to aid in the diagnosis of COVID-19 is performed using the Simplexa COVID-19 Direct Assay by [employer] as authorized by the FDA issued Emergency Use Authorization (EUA). This assay is intended for In-vitro Diagnostic (IVD) use with nasopharyngeal swabs collected from individuals meeting the CDC criteria for testing. The assay is performed based on the instructions for use and additional guidance provided by the FDA. Testing is performed in the Microbiology Laboratory within the Department of Pathology and Laboratory Medicine at [facility], certified under the Clinical Laboratory Improvement Amendments of 1988 (CLIA), 42 U.S.C. section 263a, to perform high complexity tests. Assay performance has been verified according to clinical laboratory regulatory requirements. Test results are provided above. A result of Not Detected indicates that the viral RNA target is not present but does not preclude SARS-CoV-2 infection. False negative results may occur if a specimen is improperly collected, transported or handled; if amplification inhibitors are present; or if inadequate numbers of viral particles are present in the specimen. A result of Detected suggests a current or recent infection and the patient is presumed to be infected. Positive and negative predictive values for this test are highly dependent on disease prevalence. A result of Invalid indicates the inability to conclusively determine the presence or absence of SARS-CoV-2 RNA in the sample which can be due to a variety of factors. Recollection is recommended in the case of an invalid result. CDC COVID-19 criteria for testing on human specimens and clinical management guidance information are available at the CDC Coronavirus Disease 2019 (COVID-19) webpage under Information for Healthcare Professionals (https://www.cdc.gov/coronavirus/2019-ncov/hcp/index.html). SARS-CoV-2 Source SE[employer] Swab Blood culture [[id number]] Collected: 09/01/192207 Lab Status: Preliminary result Specimen: Blood Updated: 09/02/192300 Blood Culture No growth at 1 day. Blood culture [[id number]] Collected: 09/01/192207 Lab Status: Preliminary result Specimen: Blood Updated: 09/02/192300 Blood Culture No growth at 1 day. Imaging/Studies: CT A/P (08/31): showed R lobe abscess CT guided liver aspiration (09/01): abscess successfully drained, 5ml purulent fluid removed Body fluid culture aerobic (09/01): prelim results above Body fluid culture anaerobic (09/01): results pending Blood culture (09/01): no growth Assessment: 68 y.o. female with PMH of large granular lymphocytic leukemia, chronic neutropenia (neupogen on 08/15/19), and UC (on steroid taper) admitted to an OSH for colitis, c/b E.coli bacteremia treated with ciprofloxacin. Found to have a hepatic abscess following a 1-week history of intermittent fevers. Ms. Parry's pain this afternoon has been well-managed with acetaminophen (06/18 by 2pm). Remaining pain is localized to draining site. Suction bulb at drain site outputting almost minimal serosanguinous fluid (5ccs overnight), followed by radiology team. Awaiting body fluid sensitivity results. WBC downtrending from 5.5 yesterday to 4.1 today (baseline of 2.0, s/p BM stimulant on 08/14). Plan: #Hepatic Abscess - F/U on body fluid culture (09/01) - Continue piperacillin-tazobactam Q8H, narrow accordingly - Pain management: PRN acetaminophen 600mg - Stop PRN PO oxycodone 5mg, PRN IV hydromorphone 0.2mg - Forward flush every 12 hours with 3-5 mL of normal saline, per radiology note - F/U with radiology in 4 weeks for fluoroscopic drain check - Stop IV fluids # Bacteremia (likely E. Coli) - F/U blood culture (09/01/2019) - Continue piperacillin-tazobactam Q8H, narrow accordingly # UC - Continue prednisone 20mg taper - Monitor clinical picture and WBC, consider adding CRP, ESR - GI team following, will reschedule flexible sigmoidoscopy # Large granula lymphocytic leukemia - Patient followed by Dr. Jay - S/p BM stimulant on 08/15/19 #Other - Diet: Regular - DVT ppx: Enoxaparin SQ in evening - GI ppx: Pantoprazole 20mg - Consults: GI service - code status: Full Code - Dispo: floor, likely dc to home in 2 days Rizwan Lama MS4 [facility] Medicine Team pager #[phone] Personal pager [phone] * Plan of Care - Sabrina Castro RN - 09/03/2019 12:26 AM EDT Problem: Patient Care Overview Goal: Plan of Care Review Outcome: Ongoing (Interventions Implemented as Appropriate) 09/02/19 0809/02/19 8558 Plan of Care Review Progress progress toward functional goals as expected -- Coping/Psychosocial Plan Of Care Reviewed With -- patient OUTCOME EVALUATION NOTE: OUTCOME SUMMARY: Pt alert and oriented x4. VS as charted, on RA. HR demar to the low 50s overnight, pt states that is normal for her when she sleeps, notified. Pt c/o 10/18 back/abdominal pain, PRN dilaudid and tylenol given. Denies SOB. Pt able to make needs known. Calm and cooperative throughout shift. Ambulating SBA without issue. Pt able to sleep in between care. Repositioning herself without issue.. Meds given per MAY order. LR infusing @ 75 mL/hr. IV antibiotics given per order. Wound dressings c/d/I. Purewick in place per pt d/t pain. BEVERLY drain intact with minimal output. Will continue to monitor PLAN MOVING FORWARD: - Pain management - IV antibiotics - IV fluids -D/C planning INDIVIDUALIZED FALL PREVENTION INTERVENTIONS: Patient-specific fall risk factors per assessment: [current deficits]: Unfamiliar environment, generalized weakness, lines/tubes/drains, pain Assistance [level of assistance required for transfers and ambulation]: SBA/Ind Supervision [direct monitoring required during toileting and ADLs]: Eyes on Surveillance [continuous indirect monitoring]: Purposeful rounding, call light in reach, room near nurses station, bed alarm, masimo Patient-specific fall prevention interventions for sensory deficits provided, if applicable: CPG GOAL OUTCOME EVALUATION: Goal: Fall Prevention-Safe Patient Handling Outcome: Ongoing (Interventions Implemented as Appropriate) 09/02/19 1019 09/02/19214409/03/19 0000 Estes Fall Risk History of Falling -- 0 -- Secondary Diagnosis -- 15 -- Ambulatory Aids -- 0 -- Intravenous Therapy/Heparin/Saline Lock -- 20 -- Gait/Transferring -- 0 -- Mental Status -- 0 -- Score -- 35 -- OTHER Estes Fall Risk -- Med -- Restraint Interventions Safety Promotion/Fall Prevention -- -- safety round/check completed;fall prevention program maintained;activity supervised Positioning Body Position -- -- independent Activity Activity Type ROM, active encouraged;activity adjusted per tolerance -- -- Activity Assistance Provided independent -- -- Assistive Device Utilized none -- -- Goal: Infection Control Outcome: Ongoing (Interventions Implemented as Appropriate) 09/02/19214409/03/19 0000 Safety Interventions Isolation Precautions -- standard precautions maintained Infection Prevention -- rest/sleep promoted;single patient room provided Coping Strategies Supportive Measures self-care encouraged -- * Med Student Progress Note - Daina Rizwan Xavi - 09/02/2019 1:41 PM EDT Images from the original note were not included. Inpatient Medicine Progress Note ID: Leti Parry is a 68 y.o. 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 She was admitted to [facility] earlier this month for colitis c/b E.coli bacteremia. Patient was treated with flagyl and cipro originally and discharged on cipro. Initially stable, she then developed 1-week-hx of intermittent spiking fevers and was found to have a R lobe hepatic abscess on CT A/P. 24 hr events: - NPO this morning - Receiving IV LR 75ml/hr - Image-guided hepatic abscess aspiration scheduled for this afternoon - Case reviewed during 09/01 GI conference Meds: Continuous Infusions: ??? lactated Ringers 75 mL/hr (09/02/19 0155) Scheduled Meds: ??? piperacillin-tazobactam 3.375 g Intravenous Q8H ??? pantoprazole EC 20 mg Oral Daily ??? predniSONE 20 mg Oral Daily ??? sodium chloride 0.9 % (flush) 5 mL Intravenous BID ??? enoxaparin 40 mg Subcutaneous Nightly PRN Meds:.sodium chloride 0.9 % (flush), lidocaine, acetaminophen, ondansetron OR ondansetron, melatonin, oxyCODONE, HYDROmorphone Vital Signs: Last value Range last 24 hrs Temperature Temp: 37.1 ??C (98.8 ??F) Temp: [36.8 ??C (98.2 ??F)-39 ??C (102.2 ??F)] Heart Rate Heart Rate: 84 Heart Rate: [59-93] Blood Pressure BP: 103/61 BP: (100-135)/(51-81) Respiratory Rate Resp: 18 Resp: [13-26] SpO2 SpO2: 91 % SpO2: [91 %-98 %] Patient Vitals for the past 168 hrs: Weight 09/01/191952 62.6 kg (138 lb) I/O: Intake/Output Summary (Last 24 hours) at 09/02/20191725 Last data filed at 09/02/2019 1300 Gross per 24 hour Intake 5 ml Output 955 ml Net -950 ml Physical Exam: (parts of PE deferred following abscess aspiration) Gen: laying in bed; alert and oriented but visibly uncomfortable. Pt had her , Montez, at her side. HEENT: anicteric Resp: taking small controlled breaths, not labored Mood: calm Labs Recent Labs 09/01/192207 WBC 5.5 HGB 11.2* HCT 35.4* PLATELET 308 Recent Labs 09/01/192207 NA 134* K 4.0 CL 94* CO2 27 BUN 10 CREATININE 0.67* Recent Labs 09/01/192207 AST 25 ALT 44* ALKPHOS 112* BILITOT 0.3 BILIDIR 0.1 Recent Labs 09/01/192207 CALCIUM 8.8 Recent Labs 09/01/192207 INR 1.2 PT 13.6* PTT 31 No results for input(s): CK, TROPONINT in the last 168 hours. No results for input(s): POCGLU in the last 168 hours. No results for input(s): PROBNP in the last 168 hours. Micro Microbiology Results (Last 30 days) Procedure Component Value Units Date/Time Body Fluid Culture, Aerobic & Anaerobic Abdominal Fluid [[id number]] Collected: 09/02/19 1300 Lab Status: In process Specimen: Abdominal Fluid Updated: 09/02/19 152 Body Fluid Culture, Aerobic [[id number]] (Abnormal) Collected: 09/02/19 1300 Lab Status: Preliminary result Specimen: Abdominal Fluid Updated: 09/02/19 152 Gram Stain -- Many Neutrophils seen Many Gram Positive Cocci seen Few Gram Negative Rods seen Rare Gram Positive Rods seen COVID-19 PCR [[id number]] Collected: 09/02/19 0141 Lab Status: Final result Specimen: Nasopharyngeal Swab Updated: 09/02/19 0417 Rapid SARS-CoV-2 RNA Not Detected Comment: This result should be interpreted in combination with the clinical observations, patient history and epidemiological information. For testing of asymptomatic individuals, assay performance characteristics and clinical utility have not been evaluated. Testing for SARS-CoV-2 (Severe acute respiratory syndrome coronavirus 2, formerly known as 2019 novel coronavirus or 2019-nCoV) to aid in the diagnosis of COVID-19 is performed using the Simplexa COVID-19 Direct Assay by [employer] as authorized by the FDA issued Emergency Use Authorization (EUA). This assay is intended for In-vitro Diagnostic (IVD) use with nasopharyngeal swabs collected from individuals meeting the CDC criteria for testing. The assay is performed based on the instructions for use and additional guidance provided by the FDA. Testing is performed in the Microbiology Laboratory within the Department of Pathology and Laboratory Medicine at [facility], certified under the Clinical Laboratory Improvement Amendments of 1988 (CLIA), 42 U.S.C. section 263a, to perform high complexity tests. Assay performance has been verified according to clinical laboratory regulatory requirements. Test results are provided above. A result of Not Detected indicates that the viral RNA target is not present but does not preclude SARS-CoV-2 infection. False negative results may occur if a specimen is improperly collected, transported or handled; if amplification inhibitors are present; or if inadequate numbers of viral particles are present in the specimen. A result of Detected suggests a current or recent infection and the patient is presumed to be infected. Positive and negative predictive values for this test are highly dependent on disease prevalence. A result of Invalid indicates the inability to conclusively determine the presence or absence of SARS-CoV-2 RNA in the sample which can be due to a variety of factors. Recollection is recommended in the case of an invalid result. CDC COVID-19 criteria for testing on human specimens and clinical management guidance information are available at the CDC Coronavirus Disease 2019 (COVID-19) webpage under Information for Healthcare Professionals (https://www.cdc.gov/coronavirus/2019-ncov/hcp/index.html). SARS-CoV-2 Source [employer] Swab Imaging/Studies: CT A/P (08/31): showed R lobe abscess CT guided liver aspiration (09/01): abscess successfully drained, 5ml purulent fluid removed Assessment: 68 y.o. female with PMH of large granular lymphocytic leukemia, chronic neutropenia (neupogen on 08/15/19), and UC (on steroid taper) admitted to an OSH for colitis, c/b E.coli bacteremia treated with ciprofloxacin. Found to have a hepatic abscess following a 1-week history of intermittent fevers. Ms. Parry's image-guided aspiration this afternoon was successful and. Following the procedure vitals were stable. Patient's current white count at 5.5 (reported baseline of 2.0), will continue to monitor. Plan: #Hepatic Abscess - F/U on body fluid culture - Order LFTs - Continue piperacillin-tazobactam Q8H, narrow accordingly - Pain management: PRN acetaminophen 600mg, PRN PO oxycodone 5mg, PRN IV hydromorphone 0.2mg - Forward flush every 12 hours with 3-5 mL of normal saline, per radiology note - F/U with radiology in 4 weeks for fluoroscopic drain check # Bacteremia (likely E. Coli) - F/U blood culture (09/01/2019), narrow accordingly - Continue piperacillin-tazobactam Q8H # UC - Continue prednisone 20mg taper - Monitor clinical picture and WBC, consider adding CRP, ESR - GI team following - Reschedule flexible sigmoidoscopy # Large granula lymphocytic leukemia - Patient followed by Dr. Jay - S/p BM stimulant on 08/15/19 #Other - Diet: Regular - DVT ppx: Enoxaparin SQ in evening - GI ppx: Pantoprazole 20mg - Consults: GI service - code status: Full Code - Dispo: floor, likely dc to home in 2 days Rizwan Lama MS4 Hospital Medicine Team pager #[phone] Personal pager [phone] * Consult Note - Mary Castro MD - 09/02/2019 10:30 AM EDT Images from the original note were not included. GASTROENTEROLOGY & HEPATOLOGY CONSULTATION Initial Consult Note Requesting Provider: Alexis Caro MD REASON FOR CONSULTATION Hepatic abscess, Colitis HISTORY OF PRESENT ILLNESS Leti Parry is a 68 y.o. F with hx of L sided UC that was diagnosed in 2011 - not currently on any therapy for UC - says it had been mostly controlled by dietary measures, large granular lymphocytic leukemia, who was hospitalized in the beginning of August at [facility] with worsening diarrhea/painful defecation/fevers to 102.5 found to have E.coli bacteremia and L sided colitis on CT - discharged on PO antibiotics and Prednisone, had been recovering well but now developed worsening fevers again with imaging showing an new R hepatic abscess. She had seen Dr. Oliveros in GI telehealth on 08/17 after her hospitalization at [facility], plan was to quick taper Prednisone which she is down to 20 mg daily on, finish a course of ciprofloxacin for colitis/bacteremia, and rescope in 8-12 weeks to assess response/extent of colitis. Currently she is feeling well, still having fevers with Tmax to 102.2 here. No abdominal pain, nausea, vomiting, diarrhea, cp, sob, or chills. Denies seeing any blood in her stools. ROS: 10 systems reviewed and positive for those in HPI, otherwise negative PAST MEDICAL/SURGICAL HISTORY: History reviewed. No pertinent past medical history. MEDICATIONS ??? piperacillin-tazobactam 3.375 g Intravenous Q8H ??? pantoprazole EC 20 mg Oral Daily ??? predniSONE 20 mg Oral Daily ??? sodium chloride 0.9 % (flush) 5 mL Intravenous BID ??? enoxaparin 40 mg Subcutaneous Nightly ??? lactated Ringers 75 mL/hr (09/02/19 0155) sodium chloride 0.9 % (flush), lidocaine, acetaminophen, ondansetron OR ondansetron, melatonin ALLERGIES Allergies Allergen Reactions ??? Benzalkonium Chloride SOCIAL HISTORY Social History Socioeconomic History ??? Marital status: [...] file Gets together: Not on file Attends confucianist service: Not on file Active member of [...] Social History Narrative ??? Not on file FAMILY HISTORY No family history on file. Vitals: 09/02/19 0248 09/02/19 0526 09/02/19 0529 09/02/19 0635 BP: 135/77 111/61 BP Location (NBP): Right arm Right arm Patient Position: Sitting Lying Pulse: Resp: 16 Temp: (!) 38.1 ??C (100.5 ??F) (!) 39 ??C (102.2 ??F) (!) 38.7 ??C (101.6 ??F) TempSrc: Oral Oral Oral SpO2: 95% 93% 93% 93% Weight: PHYSICAL EXAM GENERAL: No acute distress, alert and oriented HEENT: AT/NC, sclerae anicteric, moist mucous membranes CHEST: CTA CARDIAC: RRR, normal S1/S2, no appreciable murmurs ABDOMEN: Soft, normoactive bowel sounds, non-tender, non-distended EXT: Warm, no edema NEURO: Grossly intact, moves all extremities SKIN: No jaundice LABS: Lab Results Component Value Date Sodium 134 (L) 09/01/2019 Potassium 4.0 09/01/2019 Chloride 94 (L) 09/01/2019 CO2 27 09/01/2019 BUN 10 09/01/2019 Creatinine 0.67 (L) 09/01/2019 Glucose Lvl 117 09/01/2019 CBC Lab Results Component Value Date WBC 5.5 09/01/2019 Hemoglobin 11.2 (L) 09/01/2019 Hematocrit 35.4 (L) 09/01/2019 Platelets 308 09/01/2019 LFT's Lab Results Component Value Date Alk Phos 112 (H) 09/01/2019 AST 25 09/01/2019 Albumin 3.5 09/01/2019 Bili, Direct 0.1 09/01/2019 Total Bilirubin 0.3 09/01/2019 ALT 44 (H) 09/01/2019 Total Protein 7.3 09/01/2019 IMAGING: Reviewed in [facility] CT AP 09/01/19: CT AP 08/11/19: ENDOSCOPY: Reviewed in [facility] Colonoscopy 08/12/19: Path: A. 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 See comment. - Negative for dysplasia. The histological features would be compatible with active idiopathic inflammatory bowel disease in the proper clinical setting. Colonoscopy 07/05/19: Findings: ? Diffuse mild inflammation characterized by congestion ? (edema), erosions, erythema, friability and ? granularity was found in the recto-sigmoid colon. ? There was partial loss of vascularity. Biopsies were ? taken with a cold forceps for histology. The ? inflammation was continuous and extended from the ? rectum to 28 cm then abruptly stopped. The descending ? colon, transverse colon, hepatic flexure, ascending ? colon, cecum and ileum appeared normal. Biopsies were ? taken with a cold forceps for histology. The terminal ? ileum appeared normal. A sessile polyp was found in ? the cecum. The polyp was 3 mm in size. The polyp was ? removed with a cold biopsy forceps. Resection and ? retrieval were complete. Path: ? Endoscopic biopsies - ? A. Inflammatory polyp. ? B. Colonic mucosa within normal limits. ? C. 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 IMPRESSION: 68 y.o. F with hx of L sided UC that was diagnosed in 2011 - not currently on any therapy for UC - says it had been mostly controlled by dietary measures, large granular lymphocytic leukemia, who [facility]ospitalized in the beginning of August at [facility] with worsening diarrhea/painful defecation/fevers to 102.5 found to have E.coli bacteremia and L sided colitis on CT - discharged on PO antibiotics and Prednisone, had been recovering well but now developed worsening fevers again with imaging showing annew R hepatic abscess with ongoing evidence of colitis. Foremost, she will need drainage of her hepatic abscess with IR and a prolonged course of IV antibiotics for this. Most likely etiology of the abscess is from bacterial gut translocation in the setting of colitis with bacterial seeding of the liver. The etiology of her colitis is still a bit of a mystery, sounded like infectious colitis but cannot be sure that this is not her underlying UC flaring. She does not have obvious symptoms of ongoing colitis at this time, no diarrhea, blood in stool, or abdominal pain. Would be worthwhile to treat the abscess now and when she is feeling better to doa full bowel prep for a full colonoscopy, which she has not had since 2011. RECOMMENDATIONS: - Appreciate IR assistance with hepatic abscess drainage - Will need prolonged course of IV antibiotics to treat abscess, on Zosyn for now - Would try to obtain culture sensitivity data on E. Coli from [facility] - Continue prednisone taper as previously planned - Once she is feeling better we will plan for a bowel prep with a full colonoscopy to re-evaluate response of colitis to antibiotics and extent of involvement The plan as outlined above was discussed with Dr. Castro. Hesham Dobson MD Gastroenterology Fellow #[id number] I have seen and evaluated the patient with Olya . I have reviewed the resident/fellow's history during the encounter and I agree with the details as written above. My physical examination confirms the above findings. The assessment and plan were formulated in discussion with me at the time of the encounter and I agree with them as documented. * Initial Assessments - Becca Baxter MSW - 09/02/2019 9:35 AM EDT Office of Care Management Initial Assessment JAMES Enrique reviewed record and discussed patient with Care Team. Source of Information: Leti, bedside nurse, and chart review. Introduced self/reviewed role; services accepted. Reason for Hospitalization: Fevers and abscess 68 y.o. 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 Ms. Parry was initially doing well after her discharge from the hospital. However, over the past week, has been developingintermittent fevers, measured Tm 102.2 today, and typically occurring in the morning. Fevers tend to resolve with spontaneously or with a dose of tylenol. She denies abd pain. No nausea or vomiting. She notes her BMs are formed, non-bloody but slightly burning, and has been having about 3-4 BMs a day (improved from her hospitalization but more than typical). Her appetite has been robust and has tolerated oral intake well. She has been tapering her prednisone. Recently decreased to 20mg daily and will decrease to 10mg on 09/07. She denies cough, dyspnea, chest pain. No rash, myalgias, or arthralgias. No sick exposures. She saw her PCP 08/23 for this. Then hem on 08/25. Returned to ED 08/27 - Hercourse of ciprofloxacin was extended and Augmentin was added. ~ Per H&P by Dr. Terrance Santana. Hospitalizations Within the Past 30 Days: Yes patient admitted to [facility] 08/14-08/16. Patient returned toED on 08/27. Patient was directly admitted from on 08/31. Anticipated Length Of Stay (If known): 24-48 hours Current Decision-Making Capacity: A+Ox4 and able to make own decisions. Advance Care Planning: Patient is full code. No AD on file. Patient well aware of Advance Directives, but declines at this time reporting not able to think about that right now. If AD's have not been completed, patient's Montez would be surrogate decision maker per [place] surrogate decision making law. Any patient receiving care at [facility] must abide by [place] law. The hierarchy for surrogate decision making is: (a) Patient???s spouse, or civil union partner or common law spouse unless there is a divorce proceeding, separation agreement, or restraining order limiting that person???s relationship with the patient. (b) Any adult son or daughter of the patient. (c) Either parent of the patient. (d) Any adult brother or sister of the patient. (e) Any adult grandchild of the patient. (f) Any grandparent of the patient. (g) Any adult aunt, uncle, niece, or nephew of the patient. (h) A close friend of the patient. (i) The agent with financial power of trial attorney or a conservator appointed in accordance with RSA 464-A. (j) The guardian of the patient???s estate. Current Coping/Education/Information Needs: Patient feels she thinks she is coping as best she can.Patient is following and going with what is recommended. Patient feels she has been able to ask questions and understands her care plan. Patient waiting for her 2 procedures. Current Functional Ability: SBA per 24 hour admission protocol then will be independent. Functional Status Prior to Admission: Independent. Home Environment: Patient lives in a 3 story home (f1st two floors are office spaces and pt and herhubby live on the third floor). Patient has to go up ~50 stairs and denies difficulty. Social & Family Supports/Community Resources: Patient reports she has a supportive and he will help her post discharge. Denies utilizing community resources. Behavioral Health History: None noted in chart. Patient's reports she feels a little down in the AM. Substance Use/Abuse: Patient reports she is a tequilla drinker but has not had a drink in the last month d/t not feeling well. Patient denies smoking or use of illicit drugs. Other Pertinent/Service Specific Information: N/A Health/Prescription Coverage: Primary Insurance: MEDICARE Secondary Insurance: [place] [facility] Prescription Coverage: Yes through [facility] Preferred Pharmacy: [email or web address] Other: N/A Primary Care Provider: Julia Chtaterjee MD [phone] Patient/Caregiver Goals of Treatment: To be 100% perfect when I get out. Potential Needs for Transition of Care: Rehab/SNF: N/A Home Health: N/A and does not feel needs DME: N/A Dialysis: N/A Community Resources: N/A Transportation: Other: PCP, GI, and Hematology follow up Anticipated Barriers to Discharge/Special Considerations: None identified. Assessment: 68 y.o. 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 Patient is independent with ADLs/IADLs and lives with a supportive . Patient is closely followed by GI and Hematology. Patient feels she is safe to go home without services. Patient's will provide transportation viaprivate car at discharge. Patient has insurance coverage through [employer] and request medications be sent to [facility] in [facility]. Patient declines Advance Directive paperwork at this time. Plan: A member of the Care Management team will continue to monitor progress, follow for continuityof care and assist with transition of care planning. JAMES Enrique Pager: [phone] * Plan of Care - Claudine Huertas RN - 09/02/2019 8:35 AM EDT Problem: Patient Care Overview Goal: Plan of Care Review Outcome: Ongoing (Interventions Implemented as Appropriate) 09/02/19 0825 Plan of Care Review Progress progress toward functional goals as expected Coping/Psychosocial Plan Of Care Reviewed With patient OUTCOME EVALUATION NOTE: OUTCOME SUMMARY: Pt A+O x4. VSS ex; febrile and unresponsive to tylenol. MD made aware and patient has informed us that this is her morning baseline; also stating that the fever normally breaks on it's own. NPO sincemidnight for CT guided liver biopsy/aspiration. Zosyn given and LR running. No c/o pain. Commode atbedside. 550 mL of urine overnight and no BM. is coming to visit today. Will continue to monitor, assess for and address comfort needs, ensure safety, and notify MD of any changes. PLAN MOVING FORWARD: Pain management Encourage repositioning and mobility as tolerated Monitor respiratory status Monitor for infection Monitor I/O's Encourage ADL's Skin care and monitoring Encourage/support family involvement Discharge planning INDIVIDUALIZED FALL PREVENTION INTERVENTIONS: Patient-specific fall risk factors per assessment: [current deficits]: weakness, IV tubing, hospital environment Assistance [level of assistance required for transfers and ambulation]: SBA-IND Supervision [direct monitoring required during toileting and ADLs]: Able to reliably summons for assistance Surveillance [continuous indirect monitoring]: Purposeful rounding, [place] [facility] [place], call light within reach, francesco on Patient-specific fall prevention interventions for sensory deficits provided, if applicable: As above CPG GOAL OUTCOME EVALUATION: Continue goals of care Goal: Fall Prevention-Safe Patient Handling Outcome: Ongoing (Interventions Implemented as Appropriate) 09/02/19 0259 09/02/19 0733 09/02/19 0821 Estes Fall Risk History of Falling 0 -- -- Secondary Diagnosis 15 -- -- Ambulatory Aids 0 -- -- Intravenous Therapy/Heparin/Saline Lock 20 -- -- Gait/Transferring 10 -- -- Mental Status 0 -- -- Score 45 -- -- OTHER Estes Fall Risk Med -- -- Restraint Interventions Safety Promotion/Fall Prevention -- safety round/check completed -- Positioning Body Position -- independent -- Activity Activity Type -- -- activity adjusted per tolerance Activity Assistance Provided -- -- assistance, stand-by Assistive Device Utilized -- -- none Goal: Infection Control Outcome: Ongoing (Interventions Implemented as Appropriate) 09/02/19 0733 Safety Interventions Isolation Precautions standard precautions maintained Infection Prevention single patient room provided Goal: Discharge Needs Assessment Outcome: Ongoing (Interventions Implemented as Appropriate) 09/02/19 0825 Discharge Needs Assessment Discharge Disposition still a patient * ED Triage - Power Arroyo RN - 09/01/2019 7:52 PM EDT C/o fever this AM. Known hepatic abscess, sent here by PCP for workup. Denies pain, NAD. A+O. documented in this encounter Plan of Treatment Upcoming Encounters Date Type Department Care Team (Late st Contact Info) Description 04/15/2024 1:00 PM EST Office Visit Hematology/Oncology at [address] [phone] Lee Ann Jay MD [facility] [place] [address] Leti Anderson, STAFF OCCUPATIONAL THERAPIST [facility] [address] HEMATOLOGY [place] [address] Scheduled Referrals Name Type Priority Associated Diagnoses Orde r Schedule OPAT: Order / Recommendation for Post Discharge IV Antibiotic Management Outpatient Referral Routine Hepatic abscess Bacteroides fragilis Infection due to Peptostreptococcus species Actinomyces infection Ordered: 09/07/2019 documented as of this encounter Procedures Procedure Name Priority Date/Time Associated Diagnosis Comments PLACE PICC LINE: CONTACT VASCULAR ACCESS Routine 09/07/2019 9:53 AM EDT XR PICC PLACEMENT OVER 5 YEARS (IV TEAM) Routine 09/07/2019 9:43 AM EDT HEMOGRAM Routine 09/07/2019 6:23 AM EDT DIFFERENTIAL, AUTOMATED Routine 09/07/19 20 6:23 AM EDT HC CBC,PLT & AUTO DIFF Routine 0 6:23 AM EDT HEMOGRAM Routine 09/06/2019 9:50 AM EDT DIFFERENTIAL, AUTOMATED Routine 09/06/19 20 9:50 AM EDT HC VENIPUNCTURE Routine 09/06/2019 9:50 AM EDT SCAN, PERIPHERAL BLOOD Routine 0 4:52 AM EDT HEMOGRAM Routine 09/05/2019 4:52 AM EDT DIFFERENTIAL, AUTOMATED Routine 09/05/19 20 4:52 AM EDT HC CBC,PLT & AUTO DIFF Routine 0 4:52 AM EDT SCAN, PERIPHERAL BLOOD Routine 0 4:43 AM EDT HEMOGRAM Routine 09/04/2019 4:43 AM EDT DIFFERENTIAL, AUTOMATED Routine 09/04/19 20 4:43 AM EDT HC VENIPUNCTURE Routine 09/04/2019 4:43 AM EDT BASIC METABOLIC PANEL Routine 09/04/2019 4:43 AM EDT BMP W/FASTING GLUCOSE Routine 09/03/2019 6:36 AM EDT HEMOGRAM Routine 09/03/2019 6:36 AM EDT DIFFERENTIAL, AUTOMATED Routine 09/03/19 20 6:36 AM EDT HC VENIPUNCTURE Routine 09/03/2019 6:36 AM EDT HEPATIC FUNCTION PANEL Routine 0 6:[address] ASPIRATION LIVER Routine 09/02/2019 1 :33 PM EDT ANAEROBIC CULTURE Routine 09/02/2019 1:0 0 PM EDT HC BODY FLUID CULTURE Routine 09/02/2019 1:00 PM EDT BODY FLUID CULTURE, AEROBIC Routine 09/02/2019 1:00 PM EDT RAPID COVID-19 PCR ([facility]) STAT 09/02/2019 1:41 AM EDT URINALYSIS MICROSCOPIC EXAM STAT 09/01/2019 11:33 PM EDT URINALYSIS WITH REFLEX CULTURE STAT 09/01/2019 11:33 PM EDT BLOOD GAS VENOUS POC Routine 09/01/2019 10:18 PM EDT SCAN, PERIPHERAL BLOOD STAT 0 10:08 PM EDT HEMOGRAM STAT 09/01/2019 10:08 PM EDT DIFFERENTIAL, AUTOMATED STAT 09/01/19 20 10:08 PM EDT GOLD TUBE HOLD STAT 09/01/2019 10:08 PM EDT HC BLOOD CULTURE- STAT 09/01/2019 10: 08 PM EDT HC BLOOD CULTURE- STAT 09/01/2019 10: 08 PM EDT HC PARTIAL THROMBOPLASTIN TIME STAT 09/01/2019 10:08 PM EDT HC PROTHROMBIN TIME STAT 09/01/2019 1 0:08 PM EDT HC CBC,PLT & AUTO DIFF STAT 0 10:08 PM EDT HC LIPASE STAT 09/01/2019 10:08 PM EDT HEPATIC FUNCTION PANEL STAT 0 10:08 PM EDT BASIC METABOLIC PANEL STAT 09/01/2019 10:08 PM EDT FILM LIBRARY STORAGE ONLY CT ABDOMEN AND PELVIS STAT 09/01/2019 7:57 PM EDT Sigmoidoscopy, Diagnostic (34053) colitis documented in this encounter Results * IR Drain Check/Change/Remove (09/28/2019 9:46 AM EDT) Anatomical Region Laterality Modality Head X-Ray Angiograph y Narrative 09/28/2019 12:32 PM EDT IR PROCEDURE NOTE Procedure: Liver abscess drain injection and removal Indication for Procedure: Per the eDH note by Dr. Keene dated 09/24/19: Leti Parry is a 68 y.o. female with history [...] throughout this procedure. ?? Alexis Caro MD IM IR ORDERABLES * Place PICC Line: Contact Vascular Access Page [phone] Extremity to exclude: No restrictions; Is PICC procedure required PRIOR to patients discharge? Yes (09/07/2019 9:53 AM EDT) Narrative Taniya Nevarez RN - 09/07/2019 9:53 AM EDT Taniya Nevarez RN ? 09/07/2019 ??9:55 AM PICC/Midline Insertion Procedure Note Indications: Anti-infective This insertion was not to replace a malfunctioning catheter. This insertion was not due to a suspected line-associated infection. Location of Procedure: X-Ray Room 11 Risks and Benefits: The risks and benefits of this procedure were reviewed and informed consent was obtained obtained. Time Out: Prior to the start of the procedure, the patient's identity, intended procedure, site/side, correct patient positioning and presence of the site dimitrios was confirmed as applicable. The medical history and chart were reviewed to rule out potential contraindications to the planned procedure. Hand Hygiene: The case mgr did perform hand hygiene prior to line insertion. Catheter type: PICC Lot number: [id number] Procedure Technique: Skin was prepped with chlorhexidine. Skin preparation agent was completely dry at the time of first skin puncture. The following barrier precaution methods were used:large sterile drape, maske/eye shield, large sterile gown, sterile gloves and cap. 3 ml of 1% Lidocaine was used for skin wheal. Ultrasound was used for guidance. ??Radiographic contrast agent was not injected for vein identification. Procedure Details: Order received for catheter placement. A 4 Fr. single lumen Bard Power catheter was placed into the right basilic vein over a 0.018 inch guidewire using modified seldinger technique and fluoroscopy. Arm circumference was 28 cm at 2 cm above the insertion site. Final catheter length (with trimming): 38 cm Internal: 36 cm External: 2 cm Tip in SVC per Jordan The line was not placed over a guidewire. Post Procedure: Diagnosis: Liver Abscess Blood return noted on aspiration of line after placement confirmed. 5 mls of normal saline infused free flowing to gravity via PICC after insertion. Sterile dressing applied: CHG Impregnated Tegaderm. Findings: The patient did tolerate the procedure well. No Complications. Procedure Comments: TANIYA NEVAREZ RN 09/07/2019 Terrance Santana MD PROCEDURE/MINOR SURG ICAL ORDERABLES * XR PICC Placement Over 5 Years with Imaging Guidance (IV Team) (09/07/2019 9:43 AM EDT) Anatomical Region Laterality Modality N/A Radio Fluoroscop y Impressions 09/07/2019 9:45 AM EDT Appropriate RIGHT PICC placement Thank you for letting us participate in the care of this patient. For questions regarding this report, please contact the number below. ? Electronically signed by: Jodee Ortega [facility] ([phone]), at 09/07/2019 9:45 AM Narrative 09/07/2019 9:45 AM EDT EXAMINATION: XR PICC PLACEMENT OVER 5 YEARS WITH IMAGING GUIDANCE (IV TEAM) CLINICAL HISTORY: Confirmation of PICC line placement TECHNIQUE: C-arm placement of PICC line. Limited view of the line tip only. COMPARISON: FINDINGS: Intraprocedural frontal radiograph of the mediastinum demonstrates a RIGHT PICC line, with the catheter tip projected at the RIGHT hilum . Procedure Note Jodee Ortega MD - 09/07/2019 EXAMINATION: XR PICC PLACEMENT OVER 5 YEARS WITH IMAGING GUIDANCE (IVTEAM) CLINICAL HISTORY: Confirmation of PICC line placement TECHNIQUE: C-arm placement of PICC line. Limited view of the line tiponly. COMPARISON: FINDINGS: Intraprocedural frontal radiograph of the mediastinumdemonstrates a RIGHT PICC line, with the catheter tip projected at the RIGHT hilum . IMPRESSION Appropriate RIGHT PICC placement Thank you for letting us participate in the care of this patient. Forquestions regarding this report, please contact the number below. Electronically signed by: Jodee Ortega [facility]([phone]), at 09/07/2019 9:45 AM Terrance Santana MD IMG FLUORO ORDERABLE S * (ABNORMAL) Differential, Automated (09/07/2019 6:23 AM EDT) Neutrophil % 65.2 % [facility] Neutrophil Absolute 4.83 1.70 - 6.10 x10(3)/mc L [facility] Lymph % 20.6 % [facility] Lymphocytes Abs 1.5 0.9 - 3.2 x10(3)/mc L [facility] Monocyte % 6.7 % [facility] Monocyte Abs 0.5 0.3 - 0.9 x10(3)/mc L [facility] Eos % 0.1 % [facility] Eosinophils Abs 0.0 0.0 - 0.4 x10(3)/mc L [facility] Basophil % 0.1 % [facility] Baso Absolute 0.0 0.0 - 0.1 x10(3)/mc L [facility] Immature Gran % 7.30 % [facility] Comment: Immature granulocytes(IG's)percentage and absolute count will include metamyelocytes, myelocytes, and promyelocytes. Blood smears from CBCs yielding IG's will be scanned manually for concordance. If this scan disagrees with the automated IG or if promyelocytes are noted, a manual differential will be performed. Immature Gran Absolute 0.54(H) 0.00 - 0.04 x10(3)/mc L [facility] Blood specimen (specimen) 09/07/2019 6:23 AM EDT 09/07/2019 6:48 AM EDT Narrative Resulting Agency Comment Spec In Lab Terrance Santana MD HEMATOLOGY ORDERABLE S [facility] [place] [address] * (ABNORMAL) Hemogram (09/07/2019 6:23 AM EDT) White Blood Cell 7.4 4.0 - 9.5 x10(3)/[facility] Red Blood Cell 4.23 4.00 - 5.21 x10(6)/[facility] Hemoglobin 11.7 11.7 - 15.5 gm/dL [facility] Hematocrit 38.0 35.7 - 45.8 % [facility] Mean Cell Volume 89.8 82.6 - 94.[address] [facility] Mean Cell Hemoglobin 27.7 27.1 - 32.[address] [facility] Mean Cell Hemoglobin Concentration 30.8(L) 31.7 - 35.0 gm/dL [facility] Platelet 306 145 - 357 x10(3)/[facility] RDW Standard Deviation 46.4(H) 37.0 - 46.0 [facility] RDW coefficient of variation 14.3(H) 11.5 - 14.1 % [facility] Mean Platelet Volume 9.9 7.6 - 12.9 [facility] NRBC% auto 0.0 % [facility] NRBC Absolute 0.000 0.000 - 0.000 x10(3)/[facility] Blood specimen (specimen) 09/07/2019 6:23 AM EDT 09/07/2019 6:48 AM EDT Narrative Resulting Agency Comment Spec In Lab Terrance Santana MD HEMATOLOGY ORDERABLE S Performing Organization Address City/[facility]/ZIP Co de Phone Number [facility] [place] [address] * (ABNORMAL) Differential, Automated (09/06/2019 9:50 AM EDT) Neutrophil % 75.8 % [facility] Neutrophil Absolute 8.52(H) 1.70 - 6.10 x10(3)/mc L [facility] Lymph % 10.1 % [facility] Lymphocytes Abs 1.1 0.9 - 3.2 x10(3)/ L [facility] Monocyte % 7.5 % [facility] Monocyte Abs 0.8 0.3 - 0.9 x10(3)/ L [facility] Eos % 0.1 % [facility] Eosinophils Abs 0.0 0.0 - 0.4 x10(3)/[facility] Basophil % 0.4 % [facility] Baso Absolute 0.0 0.0 - 0.1 x10(3)/ L [facility] Immature Gran % 6.10 % [facility] Comment: Immature granulocytes(IG's)percentage and absolute count will include metamyelocytes, myelocytes, and promyelocytes. Blood smears from CBCs yielding IG's will be scanned manually for concordance. If this scan disagrees with the automated IG or if promyelocytes are noted, a manual differential will be performed. Immature Gran Absolute 0.69(H) 0.00 - 0.04 x10(3)/mc L [facility] Blood specimen (specimen) 09/06/2019 9:50 AM EDT 09/06/2019 10:44 AM EDT Narrative Resulting Agency Comment Spec In Lab Terrance Santana MD HEMATOLOGY ORDERABLE S Performing Organization Address City/[facility]/ZIP Co de Phone Number [facility] [place] [address] * (ABNORMAL) Hemogram (09/06/2019 9:50 AM EDT) White Blood Cell 11.2(H) 4.0 - 9.5 x10(3)/mc L [facility] Red Blood Cell 4.38 4.00 - 5.21 x10(6)/mc L [facility] Hemoglobin 12.3 11.7 - 15.5 gm/dL [facility] Hematocrit 39.6 35.7 - 45.8 % [facility] Mean Cell Volume 90.4 82.6 - 94.[address] [facility] Mean Cell Hemoglobin 28.1 27.1 - 32.[address] [facility] Mean Cell Hemoglobin Concentration 31.1(L) 31.7 - 35.0 gm/dL [facility] Platelet 300 145 - 357 x10(3)/[facility] RDW Standard Deviation 46.3(H) 37.0 - 46.0 [facility] RDW coefficient of variation 14.0 11.5 - 14.1 % [facility] Mean Platelet Volume 10.0 7.6 - 12.9 [facility] NRBC% auto 0.0 % [facility] NRBC Absolute 0.000 0.000 - 0.000 x10(3)/ L [facility] Blood specimen (specimen) 09/06/2019 9:50 AM EDT 09/06/2019 10:44 AM EDT Narrative Resulting Agency Comment Spec In Lab Terrance Santana MD HEMATOLOGY ORDERABLE S [facility] [place] [address] * Scan, Peripheral Blood (09/05/2019 4:52 AM EDT) Plat estimate Normal [facility] RBC Morphology Abnormal [facility] Ovalocytes 1-5 /HPF [facility] Blood specimen (specimen) 09/05/2019 4:52 AM EDT 09/05/2019 5:06 AM EDT Narrative Resulting Agency Comment Spec In Lab Terrance Santana MD HEMATOLOGY ORDERABLE S [facility] [place] [place] [address] * (ABNORMAL) Differential, Automated (09/05/2019 4:52 AM EDT) Neutrophil % 27.5 % [facility] Neutrophil Absolute 0.42(Crit ical) 1.70 - 6.10 x10(3)/mc L [facility] Comment: This result has been called to TOM AHUJA by RADHA JOHN on 09 05 2019 at 0551, and has been read back. Lymph % 46.4 % [facility] Lymphocytes Abs 0.7(L) 0.9 - 3.2 x10(3)/mc L [facility] Monocyte % 17.6 % [facility] Monocyte Abs 0.3 0.3 - 0.9 x10(3)/mc L [facility] Eos % 0.0 % [facility] Eosinophils Abs 0.0 0.0 - 0.4 x10(3)/mc L [facility] Basophil % 0.0 % [facility] Baso Absolute 0.0 0.0 - 0.1 x10(3)/mc L [facility] Immature Gran % 8.50 % [facility] Comment: Immature granulocytes(IG's)percentage and absolute count will include metamyelocytes, myelocytes, and promyelocytes. Blood smears from CBCs yielding IG's will be scanned manually for concordance. If this scan disagrees with the automated IG or if promyelocytes are noted, a manual differential will be performed. Immature Gran Absolute 0.13(H) 0.00 - 0.04 x10(3)/mc L [facility] Blood specimen (specimen) 09/05/2019 4:52 AM EDT 09/05/2019 5:06 AM EDT Narrative Resulting Agency Comment Spec In Lab Terrance Santana MD HEMATOLOGY ORDERABLE S [facility] [place] [place] [address] * (ABNORMAL) Hemogram (09/05/2019 4:52 AM EDT) White Blood Cell 1.5(Criti tosha) 4.0 - 9.5 x10(3)/mc L [facility] Comment: This result has been called to TOM AHUJA by RADHA JOHN on 09 05 2019 at 0551, and has been read back. Red Blood Cell 3.95(L) 4.00 - 5.21 x10(6)/mc L [facility] Hemoglobin 11.0(L) 11.7 - 15.5 gm/dL [facility] Hematocrit 35.8 35.7 - 45.8 % [facility] Mean Cell Volume 90.6 82.6 - 94.[address] [facility] Mean Cell Hemoglobin 27.8 27.1 - 32.[address] [facility] Mean Cell Hemoglobin Concentration 30.7(L) 31.7 - 35.0 gm/dL [facility] Platelet 266 145 - 357 x10(3)/mc L [facility] RDW Standard Deviation 45.3 37.0 - 46.[address] [facility] RDW coefficient of variation 13.7 11.5 - 14.1 % [facility] Mean Platelet Volume 9.7 7.6 - 12.[address] [facility] NRBC% auto 0.0 % [facility] NRBC Absolute 0.000 0.000 - 0.000 x10(3)/mc L [facility] Blood specimen (specimen) 09/05/2019 4:52 AM EDT 09/05/2019 5:06 AM EDT Narrative Resulting Agency Comment Spec In Lab Terrance Santana MD HEMATOLOGY ORDERABLE S Performing Organization Address City/[facility]/ZIP Co de Phone Number [facility] [place] [address] * Scan, Peripheral Blood (09/04/2019 4:43 AM EDT) Plat estimate Normal [facility] RBC Morphology Normal [facility] Blood specimen (specimen) 09/04/2019 4:43 AM EDT 09/04/2019 5:23 AM EDT Narrative Resulting Agency Comment Spec In Lab Terrance Santana MD HEMATOLOGY ORDERABLE S Performing Organization Address [facility]/ZIP Co de Phone Number [facility] [place] [place] [address] * (ABNORMAL) Basic Metabolic Panel (non-fasting) (09/04/2019 4:43 AM EDT) [facility] Glucose 88 65 - 199 mg/dL [facility] Comment:Diabetes: >=200 mg/d L plus symptoms Blood Urea Nitrogen 9 8 - 18 mg/dL [facility] Creatinine 0.49(L) 0.70 - 1.20 mg/dL [facility] Sodium 138 135 - 145 mmol/L [facility] Potassium 4.1 3.5 - 5.0 mmol/L [facility] Comment: Please note: ??Patients with WBC >100,000 may have falsely elevated Potassium levels. ??For accurate Potassium quantification in these patients send serum separator tube (gold top) for subsequent determinations. ??Contact the Clinical Chemistry Laboratory if there are any questions. Chloride 101 98 - 107 mmol/L [facility] Carbon Dioxide 27 22 - 31 mmol/L [facility] Anion Gap 10 5 - 15 mmol/L [facility] Calcium 9.4 8.5 - 10.5 mg/dL [facility] Est Glomerular Filtration Rate 101 >=60 mL/min/1. 73 m?? [facility] Comment: The eGFR was calculated using the CKD-EPI equation. As with all creatinine based estimates of kidney function, eGFR values calculated with the CKD-EPI equation are not accurate in patients with acute kidney failure, extremes of body mass or the acutely ill. [email or web address] eGFR 117 >=60 mL/min/1. 73 m?? [facility] Comment: The eGFR was calculated using the CKD-EPI equation. As with all creatinine based estimates of kidney function, eGFR values calculated with the CKD-EPI equation are not accurate in patients with acute kidney failure, extremes of body mass or the acutely ill. [email or web address] Blood specimen (specimen) 09/04/2019 4:43 AM EDT 09/04/2019 5:00 AM EDT Narrative Resulting Agency Comment Spec In Lab Alexis Caro MD CHEMISTRY ORDERABLES [facility] [place] [address] * (ABNORMAL) Differential, Automated (09/04/2019 4:43 AM EDT) Neutrophil % 32.3 % [facility] Neutrophil Absolute 0.60(L) 1.70 - 6.10 x10(3)/mc L [facility] Lymph % 47.3 % [facility] Lymphocytes Abs 0.9 0.9 - 3.2 x10(3)/mc L [facility] Monocyte % 14.0 % [facility] Monocyte Abs 0.3 0.3 - 0.9 x10(3)/mc L [facility] Eos % 0.0 % [facility] Eosinophils Abs 0.0 0.0 - 0.4 x10(3)/mc L [facility] Basophil % 0.5 % [facility] Baso Absolute 0.0 0.0 - 0.1 x10(3)/mc L [facility] Immature Gran % 5.90 % [facility] Comment: Immature granulocytes(IG's)percentage and absolute count will include metamyelocytes, myelocytes, and promyelocytes. Blood smears from CBCs yielding IG's will be scanned manually for concordance. If this scan disagrees with the automated IG or if promyelocytes are noted, a manual differential will be performed. Immature Gran Absolute 0.11(H) 0.00 - 0.04 x10(3)/mc L [facility] Blood specimen (specimen) 09/04/2019 4:43 AM EDT 09/04/2019 5:23 AM EDT Narrative Resulting Agency Comment Spec In Lab Terrance Santana MD HEMATOLOGY ORDERABLE S [facility] [place] [address] * (ABNORMAL) Hemogram (09/04/2019 4:43 AM EDT) White Blood Cell 1.9(Criti tosha) 4.0 - 9.5 x10(3)/ L [facility] Comment: This result has been called to FLO DEE by MIMA ELISE on 09 04 2019 at 0608, and has been read back. Red Blood Cell 4.32 4.00 - 5.21 x10(6)/mc L [facility] Hemoglobin 12.0 11.7 - 15.5 gm/dL [facility] Hematocrit 38.4 35.7 - 45.8 % [facility] Mean Cell Volume 88.9 82.6 - 94.[address] [facility] Mean Cell Hemoglobin 27.8 27.1 - 32.[address] [facility] Mean Cell Hemoglobin Concentration 31.3(L) 31.7 - 35.0 gm/dL [facility] Platelet 296 145 - 357 x10(3)/mc L [facility] RDW Standard Deviation 44.5 37.0 - 46.0 [facility] RDW coefficient of variation 13.8 11.5 - 14.1 % [facility] Mean Platelet Volume 9.8 7.6 - 12.9 [facility] NRBC% auto 0.0 % [facility] NRBC Absolute 0.000 0.000 - 0.000 x10(3)/mc L [facility] Blood specimen (specimen) 09/04/2019 4:43 AM EDT 09/04/2019 5:23 AM EDT Narrative Resulting Agency Comment Spec In Lab Terrance Santana MD HEMATOLOGY ORDERABLE S Performing Organization Address City/State/[facility] Co de Phone Number [facility] [place] [address] * (ABNORMAL) Differential, Automated (09/03/2019 6:36 AM EDT) Neutrophil % 57.4 % [facility] Neutrophil Absolute 2.33 1.70 - 6.10 x10(3)/mc L [facility] Lymph % 20.0 % [facility] Lymphocytes Abs 0.8(L) 0.9 - 3.2 x10(3)/mc L [facility] Monocyte % 17.5 % [facility] Monocyte Abs 0.7 0.3 - 0.9 x10(3)/mc L [facility] Eos % 0.0 % [facility] Eosinophils Abs 0.0 0.0 - 0.4 x10(3)/mc L [facility] Basophil % 0.2 % [facility] Baso Absolute 0.0 0.0 - 0.1 x10(3)/mc L [facility] Immature Gran % 4.90 % [facility] Comment: Immature granulocytes(IG's)percentage and absolute count will include metamyelocytes, myelocytes, and promyelocytes. Blood smears from CBCs yielding IG's will be scanned manually for concordance. If this scan disagrees with the automated IG or if promyelocytes are noted, a manual differential will be performed. Immature Gran Absolute 0.20(H) 0.00 - 0.04 x10(3)/ L [facility] Blood specimen (specimen) 09/03/2019 6:36 AM EDT 09/03/2019 6:59 AM EDT Narrative Resulting Agency Comment Spec In Lab Terrance Santana MD HEMATOLOGY ORDERABLE S [facility] [place] [place] [address] * (ABNORMAL) Hemogram (09/03/2019 6:36 AM EDT) White Blood Cell 4.1 4.0 - 9.5 x10(3)/[facility] Red Blood Cell 4.42 4.00 - 5.21 x10(6)/[facility] Hemoglobin 12.0 11.7 - 15.5 gm/dL [facility] Hematocrit 39.6 35.7 - 45.8 % [facility] Mean Cell Volume 89.6 82.6 - 94.4 [facility] Mean Cell Hemoglobin 27.1 27.1 - 32.[address] [facility] Mean Cell Hemoglobin Concentration 30.3(L) 31.7 - 35.0 gm/dL [facility] Platelet 315 145 - 357 x10(3)/[facility] RDW Standard Deviation 44.9 37.0 - 46.0 [facility] RDW coefficient of variation 13.7 11.5 - 14.1 % [facility] Mean Platelet Volume 10.2 7.6 - 12.9 [facility] NRBC% auto 0.0 % [facility] NRBC Absolute 0.000 0.000 - 0.000 x10(3)/ L [facility] Blood specimen (specimen) 09/03/2019 6:36 AM EDT 09/03/2019 6:59 AM EDT Narrative Resulting Agency Comment Spec In Lab Terrance Santana MD HEMATOLOGY ORDERABLE S Performing Organization Address [facility] de Phone Number [facility] [place] [address] * (ABNORMAL) Hepatic Function Panel (09/03/2019 6:36 AM EDT) Pathologist [facility] Protein, Total 7.3 6.1 - 8.0 gm/dL [facility] Albumin 3.2 3.2 - 5.2 gm/dL [facility] Aspartate Aminotransferase 15 0 - 30 unit/L [facility] Alanine Aminotransferase 32(H) 0 - 30 unit/L [facility] Alkaline Phosphatase 105 35 - 105 unit/L [facility] Bilirubin, Total 0.4 0.2 - 1.3 mg/dL [facility] Bilirubin, Direct 0.1 0.0 - 0.3 mg/dL [facility] Blood specimen (specimen) 09/03/2019 6:36 AM EDT 09/03/2019 6:58 AM EDT Narrative Resulting Agency Comment Spec In Lab Alexis Caro MD CHEMISTRY ORDERABLES Performing Organization Address [facility] de Phone Number [facility] [place] [address] * (ABNORMAL) BMP w/fasting Glucose (09/03/2019 6:36 AM EDT) Glucose Fasting 102(H) 65 - 99 mg/dL [facility] Comment: ?Fasting* Glucose Interpretive Criteria Normal ?65-99 mg/dL Impaired Fasting glucose ?100-125 mg/dL Consistent with Diabetes Mellitus ? >or= 126 mg/dL *Fasting is defined as no caloric intake for at least 8 hours In the absence of unequivocal hyperglycemia a plasma glucose value of >or= 126 mg/dL should be repeated on a subsequent day. Diagnosis and Classification of Diabetes Mellitus, Position Statement from the [place] [employer]. ??Diabetes Care, Volume 33, Supplement 1, Mar 2009 Blood Urea Nitrogen 10 8 - 18 mg/dL [facility] Creatinine 0.54(L) 0.70 - 1.20 mg/dL [facility] Sodium 133(L) 135 - 145 mmol/L [facility] Potassium 3.8 3.5 - 5.0 mmol/L [facility] Comment: Please note: ??Patients with WBC >100,000 may have falsely elevated Potassium levels. ??For accurate Potassium quantification in these patients send serum separator tube (gold top) for subsequent determinations. ??Contact the Clinical Chemistry Laboratory if there are any questions. Chloride 97(L) 98 - 107 mmol/L [facility] Carbon Dioxide 26 22 - 31 mmol/L [facility] Anion Gap 10 5 - 15 mmol/L [facility] Calcium 9.2 8.5 - 10.5 mg/dL [facility] Est Glomerular Filtration Rate 98 >=60 mL/min/1. 73 m?? [facility] Comment: The eGFR was calculated using the CKD-EPI equation. As with all creatinine based estimates of kidney function, eGFR values calculated with the CKD-EPI equation are not accurate in patients with acute kidney failure, extremes of body mass or the acutely ill. [email or web address] eGFR 113 >=60 mL/min/1. 73 m?? [facility] Comment: The eGFR was calculated using the CKD-EPI equation. As with all creatinine based estimates of kidney function, eGFR values calculated with the CKD-EPI equation are not accurate in patients with acute kidney failure, extremes of body mass or the acutely ill. [email or web address] Blood specimen (specimen) 09/03/2019 6:36 AM EDT 09/03/2019 6:58 AM EDT Narrative Resulting Agency Comment Spec In Lab Alexis Caro MD CHEMISTRY ORDERABLES [facility] [place] [place] [address] * CT Guided Aspiration Liver (09/02/2019 1:33 PM EDT) Anatomical Region Laterality Modality Computed Tomogra phy Impressions 09/02/2019 4:02 PM EDT Impression: Successful CT-guided drain placement in a hepatic fluid collection. Plan/disposition: 1) To Angio recovery room, may discharge to floor when meets criteria. 2) Forward flush every 12 hours with 3-5 mL of normal saline. Record outputs daily. 3) Patient to return in 4 weeks for fluoroscopic drain check. Eligibility Specialist(s): Resident/Fellow: Johan Hernandez M.D. Attending: Terrance Gunter M.D. Procedure/Teaching Attestation: I was present for the procedure. Moderate Sedation Attestation: I was present during the intra-service time as documented by IR nurse. Preliminary report signed by: Johan Hernandez at 09/02/2019 2:11 PM I have personally reviewed the image(s) and the resident's interpretation and agree with the findings, Terrance Gunter at 09/02/2019 4:02 PM Thank you for letting us participate in the care of this patient. For questions regarding this report, please contact the number below. ? Electronically signed by: Terrance Gunter [facility] ([phone]), at 09/02/2019 4:02 PM Narrative 09/02/2019 4:02 PM EDT RADIOLOGY PROCEDURE NOTE Procedure: CT-guided hepatic fluid collection drain placement Indication for Procedure: h/o UC, recent E coli bacteremia - persistent fevers and found to have hepatic abscess. Consent: After discussing the risks (including infection, hemorrhage, damage to surrounding structures, respiratory depression) and benefits, the patient consented to the procedure. Method of Sedation: ??Due to the painful nature of the procedure, patient received split doses of intravenous fentanyl and versed from the IR nurse while pulse, pressure, and oxygen saturation were continuously monitored. 1% lidocaine was used for local analgesia. Technique: Prior to beginning the procedure, a standard time out Moment of Truth was performed. The patient was positioned prone on the CT table. ??An initial non-contrast localizing CT scan was obtained. ??A site for drain placement was identified on the skin with the assistance of the CT laser lights. The skin was marked, prepped, and local anesthesia provided with 1% lidocaine. Maximum sterile barrier technique was used throughout the procedure. ??An 18ga needle was directed into the collection with intermittent CT fluoroscopy. Purulent fluid was aspirated. A 0.035 inch guidewire was placed through the needle and position within the collection was confirmed with CT. The needle was removed over the wire, the access tract was dilated and a 10 Bangladeshi locking pigtail drainage catheter was placed. Post placement CT showed the catheter tip located within the collection. 5 mL of purulent fluid was aspirated and the catheter connected to bulb suction drainage. A sample sent for microbiology. The drainage catheter was secured to the skin with 2-0 Prolene suture and StatLock. A sterile dressing was applied. Medications: Please see EMR Contrast: None EBL: <5 cc Complications: No immediate Specimens: Aspirated purulent fluid sent for laboratory analysis. Findings: Pre-procedure CT showed a hepatic fluid collection and additional linear hypoattenuation within the right lower lobe liver consistent with known portal vein thrombus.. Final CT showed a 10 Bangladeshi drain positioned in the hepatic fluid collection. ??5 mL of purulent fluid was removed. Procedure Note Terrance Gunter MD - 09/02/2019 RADIOLOGY PROCEDURE NOTE Procedure: CT-guided hepatic fluid collection drain placement Indication for Procedure: h/o UC, recent E coli bacteremia - persistentfevers and found to have hepatic abscess. Consent: After discussing the risks (including infection, hemorrhage,damage to surrounding structures, respiratory depression) and benefits, thepatient consented to the procedure. Method of Sedation: Due to the painful nature of the procedure, patient received split doses of intravenous fentanyl and versed from the IR nursewhile pulse, pressure, and oxygen saturation were continuously monitored. 1%lidocaine was used for local analgesia. Technique: Prior to beginning the procedure, a standard time out Momentof Truth was performed. The patient was positioned prone on the CT table.An initial non-contrast localizing CT scan was obtained. A site for drain placement was identified on the skin with the assistance of the CT laserlights. The skin was marked, prepped, and local anesthesia provided with 1%lidocaine. Maximum sterile barrier technique was used throughout the procedure. An18ga needle was directed into the collection with intermittent CT fluoroscopy. Purulent fluid was aspirated. A 0.035 inch guidewire was placed throughthe needle and position within the collection was confirmed with CT. Theneedle was removed over the wire, the access tract was dilated and a 10 Frenchlocking pigtail drainage catheter was placed. Post placement CT showed thecatheter tip located within the collection. 5 mL of purulent fluid was aspirated and the catheter connected to bulbsuction drainage. A sample sent for microbiology. The drainage catheter wassecured to the skin with 2-0 Prolene suture and StatLock. A sterile dressing wasapplied. Medications: Please see EMR Contrast: None EBL: <5 cc Complications: No immediate Specimens: Aspirated purulent fluid sent for laboratory analysis. Findings: Pre-procedure CT showed a hepatic fluid collection andadditional linear hypoattenuation within the right lower lobe liver consistent withknown portal vein thrombus.. Final CT showed a 10 Bangladeshi drain positioned inthe hepatic fluid collection. 5 mL of purulent fluid was removed. IMPRESSION Impression: Successful CT-guided drain placement in a hepatic fluidcollection. Plan/disposition: 1) To Angio recovery room, may discharge to floor when meets criteria. 2) Forward flush every 12 hours with 3-5 mL of normal saline. Recordoutputs daily. 3) Patient to return in 4 weeks for fluoroscopic drain check. Eligibility Specialist(s): Resident/Fellow: Johan Hernandez M.D. Attending: Terrance Gunter M.D. Procedure/Teaching Attestation: I was present for the procedure. Moderate Sedation Attestation: I was present during the intra-service timeas documented by IR nurse. Preliminary report signed by: Johan Hernandez at 09/02/2019 2:11 PM I have personally reviewed the image(s) and the resident's interpretationand agree with the findings, Terrance Gunter at 09/02/2019 4:02 PM Thank you for letting us participate in the care of this patient. Forquestions regarding this report, please contact the number below. Electronically signed by: Terrance Gunter [facility]([phone]), at 09/02/2019 4:02 PM Terrance Santana MD IMG CT ORDERABLES * (ABNORMAL) Anaerobic Culture (09/02/2019 1:00 PM EDT) Anaerobic Culture Moderate Clostridium species, not C perfringens Moderate Bacteroides fragilis Group Moderate Peptostreptococcus species (A) [facility] Organism Clostridium species, not C perfringens(A) [facility] Organism Bacteroides fragilis Group(A) [facility] Organism Peptostreptococcus species(A) [facility] Specimen from abdominal cavity (specimen) 09/02/2019 1:00 PM EDT 09/02/2019 1:33 PM EDT Comment:CT GUIDED LIVER ABSC ESS DRAIN Narrative Resulting Agency Comment Spec In Lab Terrance Santana MD MICROBIOLOGY - [facility] AL ORDERABLES [facility] [place] [address] * (ABNORMAL) Body Fluid Culture, Aerobic (09/02/2019 1:00 PM EDT) Body Fluid Culture Few Actinomyces species(A) [facility] Gram Stain Many Neutrophils seen Many Gram Positive Cocci seen Few Gram Negative Rods seen Rare Gram Positive Rods seen (A) [facility] Organism Actinomyces species(A) [facility] Organism Gram Positive Cocci(A) [facility] Organism Gram Negative Rods(A) [facility] Organism Gram Positive Rods(A) [facility] Specimen from abdominal cavity (specimen) 09/02/2019 1:00 PM EDT 09/02/2019 1:33 PM EDT Comment:CT GUIDED LIVER ABSC ESS DRAIN Narrative Resulting Agency Comment Spec In Lab Terrance Santana MD MICROBIOLOGY - GENER AL ORDERABLES [facility] [place] [address] * COVID-19 PCR (09/02/2019 1:41 AM EDT) SARS-CoV-2 RNA (Rapid) Not Detected Not Detected [facility] Comment: This result should be interpreted in combination with the clinical observations, patient history and epidemiological information. For testing of asymptomatic individuals, assay performance characteristics and clinical utility have not been evaluated. Testing for SARS-CoV-2 (Severe acute respiratory syndrome coronavirus 2, formerly known as 2019 novel coronavirus or 2019-nCoV) to aid in the diagnosis of COVID-19 is performed using the [employer] COVID-19 Direct Assay by [employer] as authorized by the FDA issued Emergency Use Authorization (EUA). This assay is intended for In-vitro Diagnostic (IVD) use with nasopharyngeal swabs collected from individuals meeting the CDC criteria for testing. The assay is performed based on the instructions for use and additional guidance provided by the FDA. Testing is performed in the Microbiology Laboratory within the Department of Pathology and Laboratory Medicine at [facility], certified under the Clinical Laboratory Improvement Amendments of 1988 (CLIA), 42 U.S.C. section 263a, to perform high complexity tests. Assay performance has been verified according to clinical laboratory regulatory requirements. Test results are provided above. A result of Not Detected indicates that the viral RNA target is not present but does not preclude SARS-CoV-2 infection. False negative results may occur if a specimen is improperly collected, transported or handled; if amplification inhibitors are present; or if inadequate numbers of viral particles are present in the specimen. A result of Detected suggests a current or recent infection and the patient is presumed to be infected. Positive and negative predictive values for this test are highly dependent on disease prevalence. A result of Invalid indicates the inability to conclusively determine the presence or absence of SARS-CoV-2 RNA in the sample which can be due to a variety of factors. Recollection is recommended in the case of an invalid result. CDC COVID-19 criteria for testing on human specimens and clinical management guidance information are available at the CDC Coronavirus Disease 2019 (COVID-19) webpage under Information for Healthcare Professionals (https://www.cdc.gov/coronavirus/2019-ncov/hcp/index.html). SARS-CoV-2 Source [employer] MA RY [facility] Nasopharyngeal swab (specimen) 09/02/2019 1:41 AM EDT 09/02/2019 2:13 AM EDT Comment:Symptoms->Surveillan ce Narrative Resulting Agency Comment Spec In Lab Terrance Meade MD MICROBIOLOGY - GEN ERAL ORDERABLES Performing Organization Address City/[facility]/ZIP Co de Phone Number [facility] [place] [address] * (ABNORMAL) Urinalysis Microscopic Exam (09/01/2019 11:33 PM EDT) RBC, Urine 5(H) 0 - 4 /HPF [facility] WBC, Urine 1 0 - 5 /HPF [facility] Squamous Epithelial Cells Raw Data, Urine 1 <=4 /HPF [facility] Hyaline Casts, Urine 3(H) 0 - 2 /LPF [facility] Urine specimen obtained by clean catch procedure (specimen) 09/01/2019 11:33 PM EDT 09/01/2019 11:43 PM EDT Narrative Resulting Agency Comment Spec In Lab Ministerio Kline MD URINE ORDERABLES Performing Organization Address City/[facility]/ZIP Co de Phone Number [facility] [place] [address] * (ABNORMAL) Urinalysis with reflex Culture (09/01/2019 11:33 PM EDT) Glucose, Urine Dipstick Negative Negative mg/dL [facility] Protein, Urine Dipstick 30(A) Negative mg/dL [facility] Bilirubin, Urine Dipstick Negative Negative mg/dL [facility] Comment: Clinical correlation required for positive Urine Bilirubin results as false positive may occur with some drugs and drug related products. If a false positive is suspected a serum total bilirubin should be considered if clinically indicated. Urobilinogen, Urine Dipstick Normal Normal mg/dL [facility] pH, Urn (dipstick) 5.0 5.0 - 8.0 [facility] Blood, Urine Dipstick Trace(A) Negative mg/dL [facility] Ketone, Urine Dipstick Trace(A) Negative mg/dL [facility] Nitrite, Urine Dipstick Negative Negative [facility] Leukocytes, Urine Dipstick Negative Negative mcL [facility] Appearance, Urine Dipstick Clear Clear [facility] Specific Wright Urine Automated >=1.030(A) 1.006 - 1.030 [facility] Color, Urine Dipstick Yellow Yellow [facility] Reflex to Culture No [facility] Urine specimen obtained by clean catch procedure (specimen) 09/01/2019 11:33 PM EDT 09/01/2019 11:43 PM EDT Narrative Resulting Agency Comment Spec In Lab Sebastian Chappell MD URINE ORDERABLES [facility] [place] [address] * (ABNORMAL) BLOOD GAS 2 VENOUS (09/01/2019 10:18 PM EDT) pH, Venous 7.45(H) 7.32 - 7.42 [facility] PCO2, Venous 42 41 - [address] [facility] PO2, Venous 51(H) 25 - [address] [facility] Bicarbonate, Venous 28.1 mmol/L [facility] Base Excess, Venous 4.0 mmol/L [facility] Hgb Blood Gas 13.3 11.7 - 15.5 gm/dL [facility] Oxyhemoglobin, Venous 85.5 % [facility] Carboxyhemoglob in, Venous 0.1 % [facility] Comment: Nonsmokers: 0.5-1.5% COHB Smokers: Variable, but usually less than 10% Toxic: 20-30% COHB Lethal: Greater than 60% COHB Methemoglobin, Venous 0.4 <=1.5 % [facility] Na Whole Blood 133(L) 135 - 145 mmol/L [facility] K Whole Blood 4.1 3.5 - 5.0 mmol/L [facility] Comment: Please note: Patients with WBC >100,000 may have falsely elevated Potassium levels. Contact the Clinical Chemistry Laboratory if there are any questions. ICa Whole Blood 1.17 1.15 - 1.33 mmol/L [facility] Comment: Note: ??Total bilirubin higher than 20 mg/dL may lead to falsely low ionized calcium. CL Whole Blood 97(L) 98 - 107 mmol/L [facility] Gluc Whole Bld 108 65 - 199 mg/dL [facility] Comment:Diabetes: >=200 mg/d L plus symptoms Lactate WB 1.4 0.5 - 2.2 mmol/L [facility] Blood Gas Source Venous [facility] Blood specimen (specimen) 09/01/2019 10:18 PM EDT 09/01/2019 10:18 PM EDT Amrik Zapata MD POINT OF CARE LIDIA T ORDERABLES [facility] [place] [address] * Scan, Peripheral Blood (09/01/2019 10:08 PM EDT) Plat estimate Normal [facility] RBC Morphology Normal [facility] Blood specimen (specimen) 09/01/2019 10:08 PM EDT 09/01/2019 10:18 PM EDT Narrative Resulting Agency Comment Spec In Lab Ministerio Kline MD HEMATOLOGY ORDERABLE S Performing Organization Address City/[facility]/ZIP Co de Phone Number [facility] [place] [address] * Gold Tube HOLD (09/01/2019 10:08 PM EDT) Gold Hold Sample in lab. [facility] Blood specimen (specimen) Venous Draw / Unknown 09/01/2019 10:08 PM EDT 09/01/2019 10:19 PM EDT Ministerio Kline MD CHEMISTRY ORDERABLES Performing Organization Address City/[facility] Co de Phone Number [facility] [place] [address] * (ABNORMAL) Differential, Automated (09/01/2019 10:08 PM EDT) Neutrophil % 59.8 % [facility] Neutrophil Absolute 3.26 1.70 - 6.10 x10(3)/mc L [facility] Lymph % 17.9 % [facility] Lymphocytes Abs 1.0 0.9 - 3.2 x10(3)/mc L [facility] Monocyte % 14.8 % [facility] Monocyte Abs 0.8 0.3 - 0.9 x10(3)/mc L [facility] Eos % 0.0 % [facility] Eosinophils Abs 0.0 0.0 - 0.4 x10(3)/mc L [facility] Basophil % 0.4 % [facility] Baso Absolute 0.0 0.0 - 0.1 x10(3)/mc L [facility] Immature Gran % 7.10 % [facility] Comment: Immature granulocytes(IG's)percentage and absolute count will include metamyelocytes, myelocytes, and promyelocytes. Blood smears from CBCs yielding IG's will be scanned manually for concordance. If this scan disagrees with the automated IG or if promyelocytes are noted, a manual differential will be performed. Immature Gran Absolute 0.39(H) 0.00 - 0.04 x10(3)/ L [facility] Blood specimen (specimen) 09/01/2019 10:08 PM EDT 09/01/2019 10:18 PM EDT Narrative Resulting Agency Comment Spec In Lab Ministerio Kline MD HEMATOLOGY ORDERABLE S [facility] [place] [address] * (ABNORMAL) Hemogram (09/01/2019 10:08 PM EDT) White Blood Cell 5.5 4.0 - 9.5 x10(3)/mc L [facility] Red Blood Cell 4.02 4.00 - 5.21 x10(6)/mc L [facility] Hemoglobin 11.2(L) 11.7 - 15.5 gm/dL [facility] Hematocrit 35.4(L) 35.7 - 45.8 % [facility] Mean Cell Volume 88.1 82.6 - 94.[address] [facility] Mean Cell Hemoglobin 27.9 27.1 - 32.[address] [facility] Mean Cell Hemoglobin Concentration 31.6(L) 31.7 - 35.0 gm/dL [facility] Platelet 308 145 - 357 x10(3)/ L [facility] RDW Standard Deviation 45.1 37.0 - 46.0 [facility] RDW coefficient of variation 13.9 11.5 - 14.1 % [facility] Mean Platelet Volume 9.8 7.6 - 12.[address] [facility] NRBC% auto 0.0 % [facility] NRBC Absolute 0.000 0.000 - 0.000 x10(3)/mc L [facility] Blood specimen (specimen) 09/01/2019 10:08 PM EDT 09/01/2019 10:18 PM EDT Narrative Resulting Agency Comment Spec In Lab Ministerio Kline MD HEMATOLOGY ORDERABLE S Performing Organization Address [facility]/ZIP Co de Phone Number [facility] [place] [place] [address] * APTT (09/01/2019 10:08 PM EDT) Partial Thromboplastin Time 31 25 - [address] [facility] Comment: The PTT is NOT appropriate for heparin monitoring. Use the Anti-Xa level for heparin monitoring (HEP UFH) or LMWH monitoring (HEP LMW). A PTT less than 37 seconds generally indicates adequate hemostasis. Blood specimen (specimen) 09/01/2019 10:08 PM EDT 09/01/2019 10:18 PM EDT Narrative Resulting Agency Comment Spec In Lab Sebastian Chappell MD HEMATOLOGY ORDERABLE S Performing Organization Address [facility] Co de Phone Number [facility] [place] [address] * Blood culture (09/01/2019 10:08 PM EDT) Blood Culture No growth at [address] [facility] Blood specimen (specimen) 09/01/2019 10:08 PM EDT 09/01/2019 10:29 PM EDT Comment:LFA Narrative Resulting Agency Comment Spec In Lab Sebastian Chappell MD MICROBIOLOGY - BLOOD ORDERABLES Performing Organization Address [facility] Co de Phone Number [facility] [place] [address] * Blood culture (09/01/2019 10:08 PM EDT) Blood Culture No growth at [address] [facility] Blood specimen (specimen) 09/01/2019 10:08 PM EDT 09/01/2019 10:28 PM EDT Comment:LAC Narrative Resulting Agency Comment Spec In Lab Sebastian Chappell MD MICROBIOLOGY - BLOOD ORDERABLES Performing Organization Address [facility] Co de Phone Number [facility] [place] [address] * (ABNORMAL) Prothrombin Time (09/01/2019 10:08 PM EDT) Prothrombin Time 13.6(H) 9.4 - 12.[address] [facility] International Normalization Ratio 1.2 [facility] Comment: An INR <2.0 indicates adequate procoagulant activity for hemostasis in most patients without underlying bleeding disorders, though the INR may not adequately reflect hemostatic capacity in patients with liver disease and synthetic impairment. The recommended target INR range for therapeutic anticoagulation is 2.0 ? 3.0 for most applications, though lower and higher ranges may be appropriate depending on clinical circumstances. Blood specimen (specimen) 09/01/2019 10:08 PM EDT 09/01/2019 10:18 PM EDT Narrative Resulting Agency Comment Spec In Lab Sebastian Chappell MD HEMATOLOGY ORDERABLE S Performing Organization Address City/[facility] Co de Phone Number [facility] [place] [address] * Lipase (09/01/2019 10:08 PM EDT) Lipase 30 0 - 60 unit/L [facility] Blood specimen (specimen) 09/01/2019 10:08 PM EDT 09/01/2019 10:18 PM EDT Narrative Resulting Agency Comment Spec In Lab Sebastian Chappell MD CHEMISTRY ORDERABLES Performing Organization Address [facility]/ZIP Co de Phone Number [facility] [place] [address] * (ABNORMAL) Hepatic Function Panel (09/01/2019 10:08 PM EDT) [facility] Protein, Total 7.3 6.1 - 8.0 gm/dL [facility] Albumin 3.5 3.2 - 5.2 gm/dL [facility] Aspartate Aminotransferase 25 0 - 30 unit/L [facility] Alanine Aminotransferase 44(H) 0 - 30 unit/L [facility] Alkaline Phosphatase 112(H) 35 - 105 unit/L [facility] Bilirubin, Total 0.3 0.2 - 1.3 mg/dL [facility] Bilirubin, Direct 0.1 0.0 - 0.3 mg/dL [facility] Blood specimen (specimen) 09/01/2019 10:08 PM EDT 09/01/2019 10:18 PM EDT Narrative Resulting Agency Comment Spec In Lab Sebastian Chappell MD CHEMISTRY ORDERABLES Performing Organization Address City/State/[facility] Co de Phone Number [facility] [place] [address] * (ABNORMAL) Basic Metabolic Panel (non-fasting) (09/01/2019 10:08 PM EDT) [facility] Glucose 117 65 - 199 mg/dL [facility] Comment:Diabetes: >=200 mg/d L plus symptoms Blood Urea Nitrogen 10 8 - 18 mg/dL [facility] Creatinine 0.67(L) 0.70 - 1.20 mg/dL [facility] Sodium 134(L) 135 - 145 mmol/L [facility] Potassium 4.0 3.5 - 5.0 mmol/L [facility] Comment: Please note: ??Patients with WBC >100,000 may have falsely elevated Potassium levels. ??For accurate Potassium quantification in these patients send serum separator tube (gold top) for subsequent determinations. ??Contact the Clinical Chemistry Laboratory if there are any questions. Chloride 94(L) 98 - 107 mmol/L [facility] Carbon Dioxide 27 22 - 31 mmol/L [facility] Anion Gap 13 5 - 15 mmol/L [facility] Calcium 8.8 8.5 - 10.5 mg/dL [facility] Est Glomerular Filtration Rate 91 >=60 mL/min/1. 73 m?? [facility] Comment: The eGFR was calculated using the CKD-EPI equation. As with all creatinine based estimates of kidney function, eGFR values calculated with the CKD-EPI equation are not accurate in patients with acute kidney failure, extremes of body mass or the acutely ill. [email or web address]nkf eGFR 105 >=60 mL/min/1. 73 m?? [facility] Comment: The eGFR was calculated using the CKD-EPI equation. As with all creatinine based estimates of kidney function, eGFR values calculated with the CKD-EPI equation are not accurate in patients with acute kidney failure, extremes of body mass or the acutely ill. [email or web address] Blood specimen (specimen) 09/01/2019 10:08 PM EDT 09/01/2019 10:18 PM EDT Narrative Resulting Agency Comment Spec In Lab Sebastian Chappell MD CHEMISTRY ORDERABLES Performing Organization Address [facility] Co de Phone Number [facility] [place] [address] * Film Library- Storage Only CT Abdomen & Pelvis (09/01/2019 7:57 PM EDT) Narrative [facility] - 09/01/2019 7:57 PM EDT This exam is auto-finalizing. It's purpose is for storage only. 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 Maximum daily dose of acetaminophen from all sources not to exceed 4,000 mg., Routine Given 09/05/2019 2:15 PM EDT 650 mg Given 09/04/2019 7:31 PM EDT 650 mg Given 09/04/2019 11:43 AM EDT 650 mg cefTRIAXone (ROCEPHIN) 2 g vial attach to sodium chloride 0.9% 50 mL Mini-Bag Plus 2 g, Intravenous, EVERY 24 HOURS, First dose on Sat09/06/19 at 1430, Until Discontinued, Administer over 30 Minutes, Indication for (Active or Suspected): GI/Intra-abdominal New Bag 09/07/2019 2:09 PM EDT 2 g 100 mL/hr New Bag 09/06/2019 3:49 PM EDT 2 g 100 mL/hr enoxaparin (LOVENOX) injection 40 mg 40 mg, Subcutaneous, NIGHTLY, First dose on Sat09/02/19 at 2100, Until Discontinued, Routine Given 09/02/2019 8:21 PM EDT 40 mg fentaNYL 50 mcg/mL multi-dose injection 25-50 mcg, Intravenous, EVERY 3 MIN PRN, Starting on Sat09/02/19 at 1105, Until Sat09/02/19 at 1301, Pain, per unit protocol, - Start dose 50 mcg (reduce dose to 25 mcg if history of sedation sensitivity). - Titration dose 25-50 mcg IV, (based on patient response) every 3 minutes PRN, to maintain procedural pain less than 2 per pain Scale. Maximum dose: 50 mcg/dose, 250 mcg/hour For use in Interventional Radiology (IR) only for procedural sedation with direct provider supervision and verbal order., Angio/IR (Intra-Procedure), Routine Given 09/02/2019 12:47 PM EDT 50 mcg Given 09/02/2019 12:36 PM EDT 50 mcg Given 09/02/2019 12:33 PM EDT 50 mcg filgrastim-sndz (ZARXIO) injection 480 mcg 480 mcg, Subcutaneous, DAILY, First dose on 09/05/19 at 0945, Until Discontinued, Bring to room temperature 30 minutes before administration, Routine Given 09/05/2019 10:25 AM EDT 480 mcg HYDROmorphone (DILAUDID) injection 0.2 mg 0.2 mg, Intravenous, EVERY 3 HOURS PRN, 3 doses, Starting on Sat09/02/19 at 1446, Until Lulu 09/03/19 at 0258, Pain, Use if pain not adequately managed following oxycodone. Use for severe pain management ., Routine Given 09/03/2019 2:58 AM EDT 0.2 mg Given 09/02/2019 8:21 PM EDT 0.2 mg Given 09/02/2019 4:05 PM EDT 0.2 mg lactated ringers infusion 75 mL/hr, Intravenous, CONTINUOUS, Starting on Sat09/02/19 at 0102, Until Lulu 09/03/19 at 0926 New Bag 09/02/2019 8:25 PM EDT 75 mL/hr 75 mL /hr New Bag 09/02/2019 1:55 AM EDT 75 mL/hr 75 mL/hr lidocaine (XYLOCAINE) 10 mg/mL (1 %) injection 10 mg 10 mg, Subcutaneous, ONCE, 1 dose, On Sat09/02/19 at 1200, For use in Interventional Radiology (IR) only for procedure with direct provider supervision and verbal order., Angio/IR (Intra-Procedure), Routine Given 09/02/2019 12:40 PM EDT 10 mg metroNIDAZOLE (Flagyl) tablet 500 mg 500 mg, Oral, 3 TIMES DAILY, First dose on Sat09/06/19 at 1500, Until Discontinued, Routine, Indication for (Active or Suspected): Anaerobic infection-GI/Intrabdominal Given 09/07/2019 2:09 PM EDT 500 mg Given 09/07/2019 8:38 AM EDT 500 mg Given 09/06/2019 8:46 PM EDT 500 mg midazolam (PF) (VERSED) multi-dose injection 0.5-1 mg 0.5-1 mg, Intravenous, EVERY 3 MIN PRN, Starting on Sat09/02/19 at 1105, Until Sat09/02/19 at 1301, Sleep, - Start dose; 1 mg (Reduce dose to 0.5 mg if history of sedation sensitivity). - Titration dose: 0.5 mg - 1 mg (based on patient response) every 3 minutes PRN to obtain RASS score of -3. Maximum dose: 1 mg per dose, 5 mg/hour. For use in Interventional Radiology (IR) only for procedural sedation with direct provider supervision and verbal order., Angio/IR (Intra-Procedure), Routine Given 09/02/2019 12:46 PM EDT 1 mg Given 09/02/2019 12:36 PM EDT 1 mg Given 09/02/2019 12:33 PM EDT 1 mg pantoprazole EC (Protonix) tablet 20 mg 20 mg, Oral, DAILY, First dose on Sat09/02/19 at 0900, Until Discontinued, DO NOT CRUSH OR OPEN Given 09/07/2019 8:38 AM EDT 20 mg Given 09/06/2019 8:54 AM EDT 20 mg Given 09/05/2019 9:17 AM EDT 20 mg piperacillin-tazobactam (ZOSYN) 3.375 g vial attach to sodium chloride 0.9% 50 mL Mini-Bag Plus 3.375 g, Intravenous, EVERY 8 HOURS, First dose on Sat09/02/19 at 0013, Until Discontinued, Administer over 4 Hours, Warning Vesicant/Irritant Medication Do not administer or Y-site with lactated ringers., Indication for (Active or Suspected): GI/Intra-abdominal New Bag 09/06/2019 8:54 AM EDT 3.375 g 12.5 mL/hr New Bag 09/06/2019 1:07 AM EDT 3.375 g 12.5 mL/hr New Bag 09/05/2019 4:47 PM EDT 3.375 g 12.5 mL/hr polyethylene glycoL (Miralax) packet 17 g 17 g, Oral, DAILY PRN, Starting on 09/05/19 at 1814, Until 09/07/19 at 1923, Constipation, Routine predniSONE (Deltasone) tablet 20 mg 20 mg, Oral, DAILY, First dose on Sat09/02/19 at 0900, Until Discontinued, Routine Given 09/07/2019 9:04 AM EDT 20 mg Given 09/06/2019 10:57 AM EDT 20 mg Given 09/05/2019 9:17 AM EDT 20 mg sodium chloride 0.9 % (flush) flush 3-5 mL 3-5 mL, Intercatheter, EVERY 12 HOURS SCHEDULED (2 times per day), First dose on Lulu 09/03/19 at 1315, Until Discontinued, Forward flush every 12 hours with 3-5 mL of normal saline, Routine Given 09/07/2019 9:00 AM EDT 5 mLs Given 09/06/2019 8:47 PM EDT 5 mLs Given 09/06/2019 8:55 AM EDT 5 mLs sodium chloride 0.9 % (flush) flush 5 mL 5 mL, Intravenous, 2 TIMES DAILY, First dose on Sat09/02/19 at 0900, Until Discontinued, Routine Given 09/07/2019 9:00 AM EDT 5 mLs Given 09/06/2019 8:47 PM EDT 5 mLs Given 09/06/2019 8:55 AM EDT 5 mLs documented in this encounter Active and Recently Administered Medications Times are shown in EDT. Scheduled Medication Order 09/05/2019 09/06/2019 09/07/2019 cefTRIAXone (ROCEPHIN) 2 g vial attach to sodium chloride 0.9% 50 mL Mini-Bag Plus 2 g, Intravenous, EVERY 24 HOURS, First dose on Sat09/06/19 at 1430, Until Discontinued, Administer over 30 Minutes, Indication for (Active or Suspected): GI/Intra-abdominal 1549 (New Bag - Provider: Germaine Rivera RN)1619 (Stopped - Provider: Germaine Rivera RN) 1409 (New Bag - Provider: Germaine Rivera RN)1439 (Stopped - Provider: Germaine Rivera RN) enoxaparin (LOVENOX) injection 40 mg 40 mg, Subcutaneous, NIGHTLY, First dose on Sat09/02/19 at 2100, Until Discontinued, Routine 2100 (Not Given - Provider: Terrance Enciso RN - Reason: Patient/family refused) 2046 (Not Given - Provider: Kyrie Camilo RN - Reason: Patient/family refused) filgrastim-sndz (ZARXIO) injection 480 mcg (CANCELED) 480 mcg, Subcutaneous, DAILY, First dose on Sat09/05/19 at 0945, Until Discontinued, Bring to room temperature 30 minutes before administration, Routine 1025 (Given - Provider: Maria Antonia Hitchcock RN) metroNIDAZOLE (Flagyl) tablet 500 mg 500 mg, Oral, 3 TIMES DAILY, First dose on Sat09/06/19 at 1500, Until Discontinued, Routine, Indication for (Active or Suspected): Anaerobic infection-GI/Intrabdom inal 1450 (Given - Provider: Germaine Rivera RN)2046 (Given - Provider: Kyrie Camilo RN) 0838 (Given - Provider: Germaine Rivera RN)1409 (Given - Provider: Germaine Rivera RN) pantoprazole EC (Protonix) tablet 20 mg 20 mg, Oral, DAILY, First dose on Sat09/02/19 at 0900, Until Discontinued, DO NOT CRUSH OR OPEN 0917 (Given - Provider: Maria Antonia Hitchcock RN) 0854 (Given - Provider: Germaine Rivera RN) 0838 (Given - Provider: Germaine Rivera RN) piperacillin-tazobacta m (ZOSYN) 3.375 g vial attach to sodium chloride 0.9% 50 mL Mini-Bag Plus (CANCELED) 3.375 g, Intravenous, EVERY 8 HOURS, First dose on Sat09/02/19 at 0013, Until Discontinued, Administer over 4 Hours, Warning Vesicant/Irritant Medication Do not administer or Y-site with lactated ringers., Indication for (Active or Suspected): GI/Intra-abdominal 0040 (New Bag - Provider: Mavis Ahuja RN)0440 (Stopped - Provider: Mavis Ahuja RN)0917 (New Bag - Provider: Maria Antonia Hitchcock RN)1317 (Stopped - Provider: Germaine Rivera, DAYANA)1647 (New Bag - Provider: Germaine Rivera RN)2047 (Stopped - Provider: Terrance Enciso RN) 0107 (New Bag - Provider: Terrance Enciso RN)0507 (Stopped - Provider: Terrance Enciso RN)0854 (New Bag - Provider: Germaine Rivera RN)1254 (Stopped - Provider: Germaine Rivera RN) predniSONE (Deltasone) tablet 20 mg 20 mg, Oral, DAILY, First dose on Sat09/02/19 at 0900, Until Discontinued, Routine 09 (Given - Provider: Maria Antonia Hitchcock RN) 1057 (Given - Provider: Germaine Rivera RN) 0904 (Given - Provider: Germaine Rivera RN) sodium chloride 0.9 % (flush) flush 3-5 mL 3-5 mL, Intercatheter, EVERY 12 HOURS SCHEDULED (2 times per day), First dose on Lulu 09/03/19 at 1315, Until Discontinued, Forward flush every 12 hours with 3-5 mL of normal saline, Routine 917 (Given - Provider: Maria Antonia Hitchcock RN)2118 (Given - Provider: Terrance Enciso, DAYANA) 0855 (Given - Provider: Germaine Rivera RN)2046 (Given - Provider: Kyrie Camilo RN) 09 (Given - Provider: Germaine Rivera RN) sodium chloride 0.9 % (flush) flush 5 mL 5 mL, Intravenous, 2 TIMES DAILY, First dose on Sat09/02/19 at 0900, Until Discontinued, Routine 917 (Given - Provider: Maria Antonia Hitchcock RN)2118 (Given - Provider: Terrance Enciso RN) 0855 (Given - Provider: Germaine Rivera, DAYANA)2046 (Given - Provider: Kyrie Camilo RN) 0900 (Given - Provider: Germaine Rivera RN) PRN Medication Order 09/05/2019 09/06/2019 09/07/2019 acetaminophen (Tylenol) tablet 650 mg 650 mg, Oral, EVERY 6 HOURS PRN, Starting on Sat09/02/19 at 0240, Until Sat09/07/19 at 1923, Pain, Fever, Administer for temperature greater than or equal to 38.2 degrees celsius. Maximum daily dose of acetaminophen from all sources not to exceed 4,000 mg., Routine 1415 (Given - Provider: Germaine Rivera RN) lidocaine (XYLOCAINE) 10 mg/mL (1 %) injection 3 mg 3 mg (0.3 mL), Subcutaneous, ONCE PRN, 1 dose, Starting on Sat09/02/19 at 0240, Until Sat09/07/19 at 1923, for discomfort with PIV insertion, Routine melatonin tablet 3 mg 3 mg, Oral, NIGHTLY PRN, Starting on Sat09/02/19 at 0240, Until Sat09/07/19 at 1923, Sleep, Routine ondansetron (Zofran) tablet 4-8 mg(Linked Group 1) 4-8 mg, Oral, EVERY 8 HOURS PRN, Starting on Sat09/02/19 at 0240, Until Sat09/07/19 at 1923, Nausea, Vomiting, If multiple antiemetics are ordered, use ondansetron first. PO Preferred. If patient unable to take PO, may give IV if ordered. Start with 4mg and if ineffective in 45 minutes, give an additional 4mg. If unable to take PO, may give IV., Routine polyethylene glycoL (Miralax) packet 17 g 17 g, Oral, DAILY PRN, Starting on Sat09/05/19 at 1814, Until Sat09/07/19 at 1923, Constipation, Routine sodium chloride 0.9 % (flush) flush 5-20 mL 5-20 mL, Intravenous, EVERY 1 MIN PRN, Starting on Sat09/02/19 at 0240, Until Sat09/07/19 at 1923, flush, Flush pertains to all indwelling lines. Flush per protocol found in the job aid using the link provided on this medication record., Routine Linked Groups Order Group 1: ondansetron (Zofran) tablet 4-8 mgJump to med 4-8 mg, Oral, EVERY 8 HOURS PRN, Starting on Sat09/02/19 at 0240, Until Sat09/07/19 at 1923, Nausea, Vomiting, If multiple antiemetics are ordered, use ondansetron first. PO Preferred. If patient unable to take PO, may give IV if ordered. Start with 4mg and if ineffective in 45 minutes, give an additional 4mg. If unable to take PO, may give IV., Routine Or ondansetron (ZOFRAN) injection 4-8 mg (CANCELED) 4-8 mg, Intravenous, EVERY 8 HOURS PRN, Starting on Sat09/02/19 at 0240, Until Lulu 09/03/19 at 0926, Nausea, Start with 4mg and if ineffective in 30 minutes, give an additional 4mg If multiple antiemetics are ordered, give ondansetron first. documented in this encounter Care Teams Pmo Consultant Relationship Specialty Start Date End Date Julia Chatterjee MD [address] [facility] 1 [place] [address] PCP - General 01/31/10 documented as of this encounter
--- OUTSIDE RECORDS SUMMARY | 2023-10-22 02:49 | XMS_ITS | Encounter Summary ---
Author Organization [facility] Address [facility] [place] [address] Care Team Providers Care Block Layer Name Role Phone Julia Chatterjee MD Primary Care Provider [phone] Encounter Details Date Type Department Care Team (Late st Contact Info) Description 09/07/2019 Notes Only Infectious Disease at [facility] [place] [phone] Rosanne Recinos RN Social History Tobacco Use [...] of this encounter Progress Notes * Rosanne Recinos, RN - 09/07/2019 2:41 PM EDT Infectious Disease/OPAT Program Teaching Visit Met with patient and her at bedside to discuss discharge on IV ABX. Serena couple ready to go home with IV ABX, teach completed by infusion vendor. Patient given and reviewed OPAT package including OPAT order, PICC line care including dressing changes weekly & prn, weekly & prn labs, potential issues, what they might mean and who to contact. Reviewed roles and responsibilities of GUN STOCK MAKER and infusion vendor. Contact information for ID team/clinic, GUN STOCK MAKER and infusion vendor given to pt. Discussed f/u appointments in ID 5C clinic, telephone and tele health. Pt verbalized understanding. All questions answered. GUN STOCK MAKER: [facility] Infusion vendor: [employer] [facility] IV Access: PICC Se cur A Cath 4 Fr. single lumen Bard Power catheter was placed into the right basilic vein 38 cm Placed: 09/07/19 Plan: discharge on OPAT program when medically ready. Rosanne Recinos, BS, RN, ACM-RN OPAT Program documented in this encounter Plan of Treatment Upcoming Encounters Date Type Department Care Team (Late st Contact Info) Description 04/15/2024 1:00 PM EST Office Visit Hematology/Oncology at [address] [phone] Lee Ann Jay MD [facility] [place] [address] Leti Anderson, WORK ORDER DETAILER [facility] [place] [address] documented as of this encounter Visit Diagnoses Not on filedocumented in this encounter Care Teams Block Layer Relationship Specialty Start Date End Date Julia Chatterjee MD [address] [place] [address] PCP - General 01/31/10 documented as of this encounter
--- OUTSIDE RECORDS SUMMARY | 2023-10-22 02:49 | XMS_ITS | Encounter Summary ---
Author Organization [facility] [place] [address] Care Team Providers Care Molded Goods Controls Operator Name Role Phone Julia Chatterjee MD Primary Care Provider [phone] Encounter Details Date Type Department Care Team (Late st Contact Info) Description 09/08/2019 [place] [address] Jessica Johnson Social History Tobacco Use Types [...] * Telephone Encounter - Jessica Johnson - 09/08/2019 8:13 AM EDT Called pt again to schedule a colo from her ref. No answer so left a vm documented in this encounter Plan of Treatment Upcoming Encounters Date Type Department Care Team (Late st Contact Info) Description 04/15/2024 1:00 PM EST Office Visit Hematology/Oncology at [address] [phone] Lee Ann Jay MD [facility] DR HEMATOLOGY [place] [address] Leti Anderson APRN [facility] [address] H[place] [address] documented as of this encounter Visit Diagnoses Not on filedocumented in this encounter Care Teams Molded Goods Controls Operator Relationship Specialty Start Date End Date Julia Chatterjee MD [facility] [address] [facility] 1 [place] [address] PCP - General 01/31/10 documented as of this encounter
--- OUTSIDE RECORDS SUMMARY | 2023-10-22 02:49 | XMS_ITS | Encounter Summary ---
Author Organization [facility] [place] [address] Care Team Providers Care Auto Body Repairer Fiberglass Name Role Phone Julia Chatterjee MD Primary Care Provider [phone] Encounter Details Date Type Department Care Team (Late Contact Info) Description 10/21/2019 Orders Only Hematology [place] [address] Lee Ann Jay MD [facility] [place] [address] Social History Tobacco Use Types Packs/Day Years [...] PM EST Office Visit Hematology/Oncology at [address] [phone] Lee Ann Jay MD [facility] [place] [address] Leti Anderson, SPOOL TENDER [facility] [place] [address] documented as of this encounter Visit Diagnoses Not on filedocumented in this encounter Care Teams Auto Body Repairer Fiberglass Relationship Specialty Start Date End Date Julia Chatterjee MD [facility] [address] [facility] 1 [place] [address] PCP - General 01/31/10 documented as of this encounter
--- OUTSIDE RECORDS SUMMARY | 2023-10-22 02:49 | XMS_ITS | Encounter Summary ---
Author Organization [facility] [place] [address] Care Team Providers Care Felt Cutting Machine Operator Name Role Phone Julia Chatterjee MD Primary Care Provider [phone] Encounter Details Date Type Department Care Team (Late Contact Info) Description 09/08/2019 Notes Only [place] [phone] Rosanne Recinos RN Social History Tobacco Use [...] Notes * Rosanne Recinos RN - 09/08/2019 11:00 AM EDT Infectious Disease OPAT Program Faxed to pharmacy at [facility] on 09/08/19 at 1104 Fax confirmation on 09/08/19 at 1107 Faxed to [facility] ([facility] on 09/08/19 at 1024 Fax confirmation on 09/08/19 at 1032 Documents faxed: New OPAT order 09/08/19 ASHER Abad, RN, ACM-RN OPAT Program documented in this encounter Plan of Treatment Upcoming Encounters Date Type Department Care Team (Late st Contact Info) Description 04/15/2024 1:00 PM EST Office Visit Hematology/Oncology at [address] [phone] Lee Ann Jay MD [facility] DR HEMATOLOGY [place] [address] Leti Anderson APRN [facility] HEMATOLOGY [place] [address] documented as of this encounter Visit Diagnoses Not on filedocumented in this encounter Care Teams Felt Cutting Machine Operator Relationship Specialty Start Date End Date Julia Chatterjee MD [facility] [address] [place] [address] PCP - General 01/31/10 documented as of this encounter
--- OUTSIDE RECORDS SUMMARY | 2023-10-22 02:50 | XMS_ITS | Encounter Summary ---
Author Organization [facility] [place] [address] Care Team Providers Care Airport Clerk Name Role Phone Julia Chatterjee MD Primary Care Provider [phone] Encounter Details Date Type Department Care Team (Late Contact Info) Description 07/31/2019 Orders Only Hematology Oncology at [address] [phone] Estefany Ramon RN Large granular lymphocyte disorder (Primary Dx); Neutropenia, unspecified type Social History Tobacco Use [...] 1:00 PM EST Office Visit Hematology/Oncology at [address] [phone] Lee Ann Jay MD [facility] HEMATOLOGY [place] [address] Leti Anderson, FOUNTAIN WAITRESS/WAITER [facility] HEMATOLOGY [place] [address] documented as of this encounter Visit Diagnoses Diagnosis 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
--- OUTSIDE RECORDS SUMMARY | 2023-10-22 02:50 | XMS_ITS | Encounter Summary ---
Author Organization [facility] [place] [address] Care Team Providers Care Consumer Experience Consultant Name Role Phone Julia Chatterjee MD Primary Care Provider [phone] Reason for Visit * Reason Onset Date Comments Labs Only 08/07/2018 Encounter Details Date Type Department Care Team ([facility] Contact Info) Description 08/07/2018 Telephone Hematology/Oncology at [address] [phone] Blaire Alarcon RN Labs Only Social History Tobacco Use [...] Telephone Encounter - Blaire Kyle RN - 08/07/2018 11:43 AM EDT Reported critical labs Dr. Santos. responds with nothing to do about labs. Called to F/U with patient. Patient asked for lab results. Reported lab results to patient and stated that MD Jay said they were fine for now. Patient inquired about Atypical Lymphocytes. Will follow up with MD Jay. documented in this encounter Plan of Treatment Upcoming Encounters Date Type Department Care Team ([facility] Contact Info) Description 04/15/2024 1:00 PM EST Office Visit Hematology/Oncology at [address] [phone] Lee Ann Jay MD [facility] [place] [address] Leti Anderson APRN [facility] [place] [address] documented as of this encounter Visit Diagnoses Not on filedocumented in this encounter Care Teams Consumer Experience Consultant Relationship Specialty Start Date End Date Julia Chatterjee MD [facility] [address] [facility] 1 [place] [address] PCP - General 01/31/10 documented as of this encounter
--- OUTSIDE RECORDS SUMMARY | 2023-10-22 02:50 | XMS_ITS | Encounter Summary ---
[place] [address] Care Team Providers Care Mixer Operator Helper Hot Metal Name Role Phone Julia Chatterjee MD Primary Care Provider [phone] Reason for Visit * Reason Onset Date Comments Reminder Appointment 08/18/2019 Encounter Details Date Type Department Care Team (Late Contact Info) Description 08/18/2019 Telephone [place] [phone] Christy Lopez CCMA Reminder Appointment Social History [...] Telephone Encounter - Christy Lopez CCMA - 08/18/2019 8:43 AM EDT Called patient to review medications and allergies for their upcoming gastroenterology Type of Appointment: Telehealth appointment. Reach Patient during MA Check: No, Did not leave a message Was unable to reach patient before appointment time Notes for the provider: Notes for the nurse: documented in this encounter Plan of Treatment Upcoming Encounters Date Type Department Care Team (Late Contact Info) Description 04/15/2024 1:00 PM EST Office Visit Hematology/Oncology at [address] [phone] Lee Ann Jay MD [facility] DR [place] [address] Leti Anderson APRN [facility] [place] [address] documented as of this encounter Visit Diagnoses Not on filedocumented in this encounter Care Teams Mixer Operator Helper Hot Metal Relationship Specialty Start Date End Date Julia Chatterjee MD [facility] [address] [facility] 1 [place] [address] PCP - General 01/31/10 documented as of this encounter
--- OUTSIDE RECORDS SUMMARY | 2023-10-22 02:50 | XMS_ITS | Encounter Summary ---
Author Organization [facility] Address [facility] [place] [address] Care Team Providers Care Bingo Floater Name Role Phone Julia Chatterjee MD Primary Care Provider [phone] Encounter Details Date Type Department Care Team (Late st Contact Info) Description 08/13/2019 Telephone [place] [phone] Hesham Dobson MD [facility] [place] [address] Social History Tobacco Use Types Packs/Day Years [...] encounter Miscellaneous Notes * Telephone Encounter - Hesham Dobson MD - 08/13/2019 12:53 PM EDT Transfer Center Call [facility] 68 yo F with hx of L sided UC but not on therapy for many years Yesterday p/w few days of sudden onset N/V, fever, rigors T 102F, some loose stools but no lucille diarrhea Now afebrile, vitals stable WBC 12.2 Renal function ok Na and Mg a bit low at first but now improved CRP 25 GNR bacteremia C.diff negative Stool culture pending CT with rectosigmoid thickening (does not appear PO contrast was given) Sigmoidoscopy done by their surgen looks like UC and biopsies taken Started cipro/flagyl and solumedrol Clinically much improved since yesterday, tolerating PO Assessment: Colitis likely infectious in etiology with bacteremia like 2/2 seeding from GI tract, less likely ischemic I am not convinced that this represents a UC flare and worry about the initiation of steroids in the setting of sepsis Plan: - Agree with cipro/flagyl, would plan for 7-10 day course - Ensure blood culture clearance - I would personally hold on steroids in this setting, discussed with referring provider - Follow up stool cultures - Trend labs including CRP - Advance diet as tolerated - Should follow up in GI clinic here when discharged, I will arrange documented in this encounter Plan of Treatment Upcoming Encounters Date Type Department Care Team (Late st Contact Info) Description 04/15/2024 1:00 PM EST Office Visit Hematology/Oncology at [address] [phone] Lee Ann Jay MD [facility] DR HEMATOLOGY [place] [address] Leti Anderson APRN [facility] DR HEMATOLOGY [place] [address] documented as of this encounter Visit Diagnoses Not on filedocumented in this encounter Care Teams Bingo Floater Relationship Specialty Start Date End Date Julia Chatterjee MD [address] [place] [address] PCP - General 01/31/10 documented as of this encounter
--- OUTSIDE RECORDS SUMMARY | 2023-10-22 02:50 | XMS_ITS | Encounter Summary ---
Author Organization [facility] Address [facility] [place] [address] Care Team Providers Care Cane Loader Name Role Phone Julia Chatterjee MD Primary Care Provider [phone] Encounter Details Date Type Department Care Team (Late st Contact Info) Description 09/02/2019 Notes [place] [address] Izzy Fabian MD [facility] DR DIAGNOST[place] [address] Social History Tobacco Use Types Packs/Day Years Used Date Smoking Tobacco: Never Smokeless Tobacco: Never Alcohol Use Standard Drinks/Week Comments Yes 1 (1 standard drink = 0.6 oz pur e alcohol) Sex and Gender Information Value Date Recorded Sex Assigned at Not on file Gender Identity Not on file Sexual Orientation Not on file documented as of this encounter H&P Notes * Izzy Fabian MD - 09/02/2019 7:59 AM [...] ASPIRATION W/BX THROUGH SAME INCISION/SITE Right 01/08/2017 ([facility]) BONE MARROW ASP PERFORMED W/BX THRU BX INCISION (WRVU 0.16) performed by Lee Ann Jay MD at [facility] ??? PRO BONE MARROW BX, NEEDLE/TROCAR Right 01/08/2017 ([facility]G) BONE MARROW,BIOPSY (WRVU 1.37) performed by Lee Ann Jay MD at [facility] ??? PRO COLONOSCOPY, BIOPSY 07/05/2011 COLONOSCOPY FLEXIBLE, WITH BX performed by MARY CASTRO at [facility] ENDOSCOPY ??? PRO COLONOSCOPY, REMV LESN, SNARE 07/05/2011 COLONOSCOPY, POLYPECTOMY, REMOVAL LESION BY SNARE performed by MARY CASTRO at [facility] ENDOSCOPY Medications: No current facility-administered medications for [...] Cytopathology presence needed: No Consent: Pending 09/02/2019 documented in this encounter Plan of Treatment Upcoming Encounters Date Type Department Care Team (Late st Contact Info) Description 04/15/2024 1:00 PM EST Office Visit Hematology/Oncology at [address] [phone] Lee Ann Jay MD [facility] DR HEMATOLOGY [place] [address] Leti Anderson APRN [facility] [address] HEMATOLOGY [place] [address] documented as of this encounter Visit Diagnoses Not on filedocumented in this encounter Care Teams Cane Loader Relationship Specialty Start Date End Date Julia Chatterjee MD [address] [place] [address] PCP - General 01/31/10 documented as of this encounter
--- OUTSIDE RECORDS SUMMARY | 2023-10-22 02:50 | XMS_ITS | Encounter Summary ---
Author Organization [facility] Address [facility] [place] [address] Care Team Providers Care Center Medical Specialist Name Role Phone Julia Chatterjee MD Primary Care Provider [phone] Reason for Visit * Reason Comments Fever hepatic abscess * Auth/Cert Specialty Diagnoses / Procedures Referred By Contac t Referred To Contact Diagnoses Hepatic abscess Referral ID Status Reason Start Date Expiration Date Visits Re quested Visits Authorized [id number] 1 1 Encounter Details Date Type Department Care Team (Late st Contact Info) Description 09/02/2019 Surgery [place] [address] Mary Castro MD [facility] DR [place] [address] FLEXIBLE SIGMOIDOSCOPY (WRVU 0.84) Social History Tobacco Use Types Packs/Day Years [...] Sign Reading Time Taken Comments Blood Pressure 92/55 09/02/2019 7:54 PM EDT Pulse 84 09/02/2019 1:15 PM EDT Temperature 36.6 ??C (97.9 ??F) 09/02/2019 7:54 PM ED T Respiratory Rate 16 09/02/2019 7:54 PM EDT Oxygen Saturation 93% 09/02/2019 7:54 PM EDT Inhaled Oxygen Concentration - - Weight 62.6 kg (138 lb) 09/01/2019 7:53 PM EDT Height - - Body Mass Index 26.07 10/23/2017 1:03 PM EDT documented in this encounter Discharge Summaries * Terrance Santana MD - 09/07/2019 4:31 PM EDT Images from the original note were not included. Discharge Summary Patient Name: Leti Parry Patient Age: 68 y.o. Language: Ivorian Race: White Ethnicity: Not nor Admit date: 09/01/2019 Discharge date and time: 09/07/2019 at 2PM Attending Physician: Terrance Santana MD Discharge Physician: Terrance Santana MD Follow-up Recommendations for Providers: Patient has hepatic abscess drain with suction-bulb in place. She is scheduled for drain-check F/U with [facility] radiology on October 02. Please monitor for [...] please contact your inpatient physician through the [facility] Sap Data Architect . Issues afterhours and on weekends will [...] in 4 weeks for fluoroscopic drain check. Sap Data Architect(s): Resident/Fellow: Johan Hernandez M.D. Attending: Terrance Gunter [...] number below. Electronically signed by: Terrance Gunter [facility] ([phone]), at 09/02/2019 4:02 PM XR PICC Placement Over 5 Years with Imaging Guidance (IV Team) (Exam End: 09/07/2019 9:43 AM) Impression Appropriate RIGHT PICC placement Thank you for letting us participate in the care of this patient. For questions regarding this report, please contact the number below. Electronically signed by: Jodee Ortega [facility] ([phone]), at 09/07/2019 9:45 AM Pending Studies and [...] - You have a follow-up appointment with [facility] radiology for a drain check on October 02. Please make sure to do flushes as outlined on discharge instructions and keep the area around the suction bulb clean. If you develop fevers, discharge around the drain site, or worsening pain please see your PCP. - You have a follow-up appointment on October 20 with your [facility] hematology team. - Please follow-up with [facility] GI service scheduling to schedule your next [...] is during regular office hours, please call [phone]. If it is after regular office hours, or on weekends or holidays, please call [phone] and ask to speak to the Respiratory Director ammunition officer for Interventional Radiology. XX You have received [...] Dept Phone 10/21/2019 10:00 AM Radha Cooper, MANAGEMENT ENGINEER; Lee Ann Jay MD Hematology/Oncology at [facility] Arrive at: RUST door at end of hallway [phone] Future Orders Complete By Expires IR Drain Check/Change/Remove [[id number] Custom] 10/03/2019 (Approximate) 04/03/2020 Process Instructions: Scheduling Instructions: Questions: Where will study be performed?: [facility] Radiology Reason for exam and clinical [...] Recommendation for Post Discharge IV Antibiotic Management [RTQ387 CPT(R)] As directed Process Instructions: If no progress note charted, please enter Clinical details in comments. Scheduling Instructions: Comments: Please Fax all results to: OPAT Program Infectious Disease Section [facility], [place] [address] FAX: After hours, please contact the Infectious Disease Physician ammunition officer at . If this order was signed greater than 72 hours prior to [facility] discharge, please call to confirm the accuracy [...] Briana King DO Referral for Outpatient Antibiotics [RKT6896 CPT(R)] As directed Process Instructions: Scheduling Instructions: Comments: Flush per OPAT Protocol Questions: Vendor / contact information: [place] Patient location post discharge: Home Service requested: IV ABX Therapy Start date: Responsible MD post discharge contact info: PCP Referral to Home Health - at DISCHARGE [AUR7086 CPT(R)] As directed Process Instructions: Scheduling Instructions: Comments: DOCUMENTATION FOR VNA SERVICES (INCLUDING THOSE PATIENTS WITH MEDICARE COVERAGE REQUIRING HOME VNA SERVICES AND/OR HOSPICE SERVICES) PATIENT'S LOCATION: Leti Parry [address] [place] [phone] (home) Cell: Telephone Information: Avionics Repair Technician's Name: Patient In discussion with the attending physician, it is certified that this patient is under their care and that they, or a Nurse Practitioner,Clinical Nurse specialist or Physician Senior Cytotechnologist who is working directly with them, had [...] assess and continue rehab for managing ADL's. RELAY OPERATOR: Assist with ADLS HOME HEALTH CARE AGENCY: [facility] 14 PHONE: [phone] FAX: [phone] Start of care: Day of Discharge FOR [...] PCP: MD Sushant Garg DR [address] / [facility] [address] All A agencies which cover the area of patient's residence have been reviewed, either verbally nadine writing, and patient/family have chosen the home health care agency noted Questions: Agency name and contact information: [facility] Patient location post discharge: Home What services are requested: Registered Nurse Start date: Responsible MD post discharge contact info: PCP Discharge References/Attachments Surgical Drain Care (Ivorian) PICC (Peripherally Inserted Central Catheter) (Ivorian) * Rizwan Lama Xavi - 09/07/2019 11:50 AM EDT Images from the original note were not included. Discharge Summary Patient Name: Leti Parry Patient Age: 68 y.o. Language: Ivorian Race: White Ethnicity: Not nor Admit date: 09/01/2019 Discharge date and time: 09/07/2019 at 2PM Attending Physician: Terrance Santana MD Discharge Physician: Terrance Santana MD Follow-up Recommendations for Providers: Patient has hepatic abscess drain with suction-bulb in place. She is scheduled for drain-check F/U with [facility] radiology on October 02. Please monitor for [...] please contact your inpatient physician through the [facility] Sap Data Architect . Issues afterhours and on weekends will [...] in 4 weeks for fluoroscopic drain check. Sap Data Architect(s): Resident/Fellow: Johan Hernandez M.D. Attending: Terrance Gunter [...] number below. Electronically signed by: Terrance Gunter [facility] ([phone]), at 09/02/2019 4:02 PM XR PICC Placement Over 5 Years with Imaging Guidance (IV Team) (Exam End: 09/07/2019 9:43 AM) Impression Appropriate RIGHT PICC placement Thank you for letting us participate in the care of this patient. For questions regarding this report, please contact the number below. Electronically signed by: Jodee Ortega [facility] ([phone]), at 09/07/2019 9:45 AM Pending Studies and [...] is during regular office hours, please call [phone]. If it is after regular office hours, or on weekends or holidays, please call [phone] and ask to speak to the Respiratory Director ammunition officer for Interventional Radiology. XX You have received [...] Department Dept Phone 10/21/2019 10:00 AM Radha Cooper APRN; Lee Ann Jay MD Hematology/Oncology at [facility] Arrive at: RUST door at end of hallway [phone] Future Orders Complete By Expires IR Drain Check/Change/Remove [[id number] Custom] 10/03/2019 (Approximate) 04/03/2020 Process Instructions: Scheduling Instructions: Questions: Where will study be performed?: [facility] Radiology Reason for exam and clinical [...] Recommendation for Post Discharge IV Antibiotic Management [PTC895 CPT(R)] As directed Process Instructions: If no progress note charted, please enter Clinical details in comments. Scheduling Instructions: Comments: Please Fax all results to: OPAT Program Infectious Disease Section [facility], [place] [address] FAX: After hours, please contact the Infectious Disease Physician ammunition officer at . If this order was signed greater than 72 hours prior to [facility] discharge, please call to confirm the accuracy [...] King DO Discharge References/Attachments Surgical Drain Care (Ivorian) PICC (Peripherally Inserted Central Catheter) (Ivorian) Associated attestation - Terrance Santana MD - 09/08/2019 4:54 PM EDT I agree with the dc summary written by Rizwan Lama MS4. Please see my separate dc summary [...] is during regular office hours, please call [phone]. If it is after regular office hours, or on weekends or holidays, please call [phone] and ask to speak to the Respiratory Director ammunition officer for Interventional Radiology. XX You have received [...] - You have a follow-up appointment with [facility] radiology for a drain check on October 02. Please make sure to do flushes as outlined on discharge instructions and keep the area around the suction bulb clean. If you develop fevers, discharge around the drain site, or worsening pain please see your PCP. - You have a follow-up appointment on October 20 with your [facility] hematology team. - Please follow-up with [facility] GI service scheduling to schedule your next colonoscopy. - ID service scheduling will call you to set up a follow-up appointment. Please reach out if you are not contacted over the next two weeks. * Attachments The following attachments cannot be sent through Care Everywhere. * Surgical Drain Care (Ivorian) * PICC (Peripherally Inserted Central Catheter) (Ivorian) documented in this encounter Medications at Time [...] EDT Infusion Resource Center Follow up Note: SAMUEL Confirmed with Ye From [facility] that patient will be seen 09/08/2019. Hospital teaching was completed with [employer] security services manager of IV supplies will occur to meet patient's need for SOC on Saturday09/08/2019 Infusion Resource Center [phone] * Liyah Rodriguez RN - 09/07/2019 11:06 [...] ready to go. RNCM made Alejandra at [facility] aware. This plan was formulated with input from patient, family and team. All are in agreement with plan. * Liyah Rodriguez RN - 09/07/2019 9:08 AM EDT Office of Care Management/Cardiac Nurse Specialist(CM) Home IV Antibiotic Therapy Referral Note. Report [...] Home Health Agency: Patient requested referral to [facility] PHONE: [phone] FAX: [phone] Referrals sent via [employer]. Home Infusion Vendor: Patient requested referral to: [place], [place] or Referrals sent via [employer]. Diabetic Status: Patient is not a diabetic [...] been on any therapy who presented to [facility] at the beginning of August with evidence [...] colitis on steroid taper, recent admission to [facility] for colitis c/b E coli bacteremia tx'd [...] Date/Time BLOODCX No growth at 4 days. 09/01/20198 BLOODCX No growth at 4 days. 09/01/2019 [...] colitis on steroid taper, recent admission to [facility] for colitis c/b E coli bacteremia tx'd [...] minimumof two midnights or is on the [facility] inpatient only procedure list (status C) due to: Ongoing need forIV antibiotics for hepatic abscess Terrance Santana MD Attending, Hospital Medicine Service Pager #[phone] 09/06/2019 * Terrance Enciso RN - 09/05/2019 [...] Santana MD - 09/05/2019 6:08 PM EDT Hospital Medicine Attending Daily Progress Note Admit Date: 09/01/2019 ( Hospital Day 3 days ) Active Hospital Problems Diagnosis ??? Hepatic abscess Resolved Hospital Problems No resolved problems to display. ID/CC: 68 y.o. 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 Sap Data Architect(s): Resident/Fellow: Johan Hernandez M.D. Attending: Terrance Gunter [...] number below. Electronically signed by: Terrance Gunter, [facility] ([phone]), at 09/02/2019 4:02 PM Inpatient Medications: Scheduled [...] colitis on steroid taper, recent admission to [facility] for colitis c/b E coli bacteremia tx'd [...] minimumof two midnights or is on the [facility] inpatient only procedure list (status C) due to: Ongoing need forIV antibiotics for hepatic abscess Terrance Santana MD Attending, Hospital Medicine Service Pager #[phone] 09/05/2019 * Alexis Caro MD - 09/04/2019 [...] Intake/Output Summary (Last 24 hours) at 09/04/2019 1819 Last data filed at 09/04/2019 0638 Gross per 24 hour Intake 705 ml Output 20 ml Net 685 ml Patient Vitals for the past 168 hrs: Weight 09/01/191952 62.6 kg (138 lb) Body mass index is 26.07 kg/m??. Studies reviewed in eDH. Remarkable for the following: LABS: Last 3 wbc, hgb, hct plt Recent Labs 09/04/19 0443 09/03/19 0636 09/01/192207 WBC 1.9* 4.1 5.5 HGB 12.0 12.0 11.2* HCT 38.4 39.6 35.4* PLATELET 296 315 308 Last 3 Lytes Recent Labs 09/04/19 0443 09/03/1936 09/01/192207 NA 138 133* 134* K [...] colitis on steroid taper, recent admission to [facility] for colitis c/b E coli bacteremia tx'd [...] with PO abx Team Pager( Coverage 01/10): #[phone] PCP: Julia Chatterjee MD [phone] Attestation: IPI Certification I certify that I am a D-H credentialed attending provider with admitting privileges and that the patient meets or has met medical necessity to require an inpatient IPI level of care meeting a minimumof two midnights or is on the [facility] inpatient only procedure list (status C) due [...] 4:43 PM EDT OFFICE OF CARE MANAGEMENT Cardiac Nurse Specialist Follow-up Note Discussed plan of care with Primary team and Nursing to assess continuing care and discharge needs. LOS: 2d Primary Insurance: MEDICARE Secondary Insurance: [employer] [place] Pt continues to require hospitalization for hepatic abscess Ongoing Issues: ID Following - awaiting recommendation IVABX 09/03 PICC placement held -possible transition to oral ABX Awaiting cultures/sensitivities Functional Status Prior to Admission: Independent Discharge plan: home when medically ready Transportation: Cardiac Nurse Specialist to follow with team and family to assist with discharge needs when patient ready for discharge. Liyah Rodriguez FIELD RESEARCH ASSISTANT, Cardiac Nurse Specialist Pgr. [phone] * Johan Hernandez MD - [...] contact with any questions Johan Hernandez MD Respiratory Director * Jeimy Nicholas RN - 09/03/2019 11:30 [...] Caro MD - 09/03/2019 5:[address] [facility] Medicine Attending Daily Progress Note Admit [...] Last 3 Lytes Recent Labs 09/03/19 0636 09/01/198 08/25/19 NA 133* 134* 131 K 3.8 4.0 [...] colitis on steroid taper, recent admission to [facility] for colitis c/b E coli bacteremia tx'd [...] steroid taper pred (decrease to 10mg 09/07) + PPI -GI [...] Anticipated Disposition: 09/03/2019 Team Pager( Coverage 01/10): #[phone] PCP: Julia Chatterjee MD [phone] Attestation: IPI Certification I certify that I am a D-H credentialed attending provider with admitting privileges and that the patient meets or has met medical necessity to require an inpatient IPI level of care meeting a minimumof two midnights or is on the CMS inpatient only procedure list (status C) due [...] washospitalized in the beginning of August at [facility] with worsening diarrhea/painful defecation/fevers, found to have [...] access tract was dilated and a 10 American locking pigtail drainage catheter was placed. Post [...] washospitalized in the beginning of August at [facility] with worsening diarrhea/painful defecation/fevers to 102.5 found [...] E. Coli from [facility] - Continue prednisone at 20 mg daily [...] Dr. Castro. Hesham Dobson MD Gastroenterology Fellow #[phone] I have seen and evaluated the patient [...] colitis on steroid taper, recent admission to [facility] for colitis c/b E coli bacteremia tx'd [...] Anticipated Disposition: 09/03/2019 Team Pager( Coverage 01/10): #[phone] PCP: Julia Chatterjee MD [phone] Attestation: IPI Certification I certify that I am a D-H credentialed attending provider with admitting privileges and that the patient meets or has met medical necessity to require an inpatient IPI level of care meeting a minimumof two midnights or is on the CMS inpatient only procedure list (status C) due [...] of : 1950 AGE: 68 y.o. Address: [address] [address] (home) Mobile: Telephone Information: Referring Provider: Self [...] by Lee Ann Jay MD at [facility] OSC ??? PRO BONE MARROW BX, NEEDLE/TROCAR Right 01/08/2017 (OSC MSURG) BONE MARROW,BIOPSY (WRVU 1.37) performed by Lee Ann Jay MD at [facility] OSC ??? PRO COLONOSCOPY, BIOPSY 07/05/2011 COLONOSCOPY FLEXIBLE, WITH BX performed by MARY CASTRO at [facility] ENDOSCOPY ??? PRO COLONOSCOPY, REMV LESN, SNARE 07/05/2011 COLONOSCOPY, POLYPECTOMY, REMOVAL LESION BY SNARE performed by MARY CASTRO at [facility] ENDOSCOPY Date/Procedure Meds given/comments 09/02/19 CT [...] by Lee Ann Jay MD at [facility] OSC ??? PRO BONE MARROW BX, NEEDLE/TROCAR Right 01/08/2017 (OSC MSURG) BONE MARROW,BIOPSY (WRVU 1.37) performed by Lee Ann Jay MD at [facility] OSC ??? PRO COLONOSCOPY, BIOPSY 07/05/2011 COLONOSCOPY FLEXIBLE, WITH BX performed by MARY CASTRO at [facility] ENDOSCOPY ??? PRO COLONOSCOPY, TAN [place], SNARE 07/05/2011 COLONOSCOPY, POLYPECTOMY, REMOVAL LESION BY SNARE performed by MARY CASTRO at [facility] ENDOSCOPY Medications: No current facility-administered medications [...] Santana MD - 09/01/2019 11:[address] [facility] Medicine Serivce Inpatient Admission Note Problem List: There are no hospital problems to display for this patient. Active Non-Hospital Problems Diagnosis ??? Ulcerative colitis ??? Leukopenia ID: 68 y.o. 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 Review of records. Discharge summary from [facility]. Patient admitted 08/14 to 08/16 for colitis [...] by Lee Ann Jay MD at [facility] OSC ??? PRO BONE MARROW BX, NEEDLE/TROCAR Right 01/08/2017 (OSC MSURG) BONE MARROW,BIOPSY (WRVU 1.37) performed by Lee Ann Jay MD at [facility] OSC ??? PRO COLONOSCOPY, BIOPSY 07/05/2011 COLONOSCOPY FLEXIBLE, WITH BX performed by MARY CASTRO at [facility] ENDOSCOPY ??? PRO COLONOSCOPY, REMV LESN, SNARE 07/05/2011 COLONOSCOPY, POLYPECTOMY, REMOVAL LESION BY SNARE performed by MARY CASTRO at [facility] ENDOSCOPY Prior To Admission Medications: (Not [...] file Gets together: Not on file Attends methodist service: Not on file Active member of [...] colitis on steroid taper, recent admission to [facility] for colitis c/b E coli bacteremia tx'd [...] Santana MD Attending, Hospital Medicine Service Pager #[phone] until [phone] 09/0109/01/2019 IPI Certification I certify that I am a D-H credentialed attending provider with admitting privileges and that the patient meets or has met medical necessity to require an inpatient IPI level of care meeting a minimumof two midnights or is on the [facility] inpatient only procedure list (status C) due [...] to the planned procedure. Hand Hygiene: The wood cut engraver did perform hand hygiene prior to line insertion. Catheter type: PICC Lot number: [id number] Procedure Technique: Skin was prepped with chlorhexidine. [...] Procedure Comments: TANIYA NEVAREZ RN 09/07/2019 * Taniay Nevarez RN - 09/04/2019 11:06 AM EDT [...] told by her physician to present to [facility] to be admitted to the GI service. [...] on phone: None Gets together: None Attends methodist service: None Active member of club or [...] notes in chart). Pt driving down from [facility]. 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 Now has hepatic abscess. In [facility] with ecoli bacteremia last week. finished abx and had persistent fevers. Worked with PCP as outpatient and got CT - shows hepatic abscess.Spiking fevers at home to 102 this am. Not currently on abx - finished course of cipro. Will need admission. Jasmin Lara MD 09/01/19 1819 documented in this encounter Miscellaneous Notes * Plan of Care - Taniya Nevarez RN - 09/07/2019 9:56 AM EDT Problem: Health Knowledge, Opportunity to Enhance (Adult,NICU,[place],Obstetrics,Pediatric) Goal: Knowledgeable about Health Subject/Topic Patient will demonstrate the desired outcomes by discharge/transition of care. Outcome: Outcome (s) achieved Date Met: 09/07/19 09/07/19 0955 Health Knowledge, Opportunity to Enhance (Adult,NICU,,Obstetrics,Pediatric) Knowledgeable about Health Subject/Topic achieves outcome Peripherally Inserted Central Catheter (PICC) Teaching Sheet Peripherally inserted central catheters (ucnj-ya-moze) (PICC) are used when you need IV [...] midline catheter? PICC lines are used for jail treatments. PICC lines may be used for [...] can be set up via the nurse Cardiac Nurse Specialist to help you. What are possible complications [...] Vascular Access Device Selection, Insertion, and Management, [employer] Access Systems 12/13. A Review of the Efficacy, Safety, Use, and Administration of [employer] 2005 * Plan of Care - [...] Surveillance [continuous indirect monitoring]: Room near nurses [facility] Patient-specific fall prevention interventions for sensory [...] Review Outcome: Ongoing (Interventions Implemented as Appropriate) 09/04/192234 Plan of Care Review Progress progress towards [...] (on steroid taper). She was admitted to [facility] earlier this month for colitis c/b E.coli [...] than yesterday) Labs Recent Labs 09/05/19 0452 09/04/19 0443 09/03/19 0636 WBC 1.5* 1.9* 4.1 HGB 11.0* 12.0 12.0 HCT 35.8 38.4 39.6 PLATELET 266 296 315 Recent Labs 09/04/19 0443 09/03/19 0636 09/01/19 [...] Fluid Culture, Aerobic & Anaerobic Abdominal Fluid [[id number]] Collected: 09/02/19 1300 Lab Status: Preliminary result Specimen: Abdominal Fluid Updated: 09/05/19 141 Body Fluid Culture, Aerobic [[id number]] (Abnormal) Collected: 09/02/19 1300 Lab Status: Preliminary result Specimen: Abdominal Fluid Updated: 09/05/19 141 Body Fluid Culture Few Actinomyces species Gram Stain -- Many Neutrophils seen Many Gram Positive Cocci seen Few Gram Negative Rods seen Rare Gram Positive Rods seen Anaerobic Culture [[id number]] (Abnormal) Collected: 09/02/19 1300 Lab Status: Preliminary result Specimen: Abdominal Fluid Updated: 09/05/19 1251 Anaerobic Culture -- Moderate Clostridium species, not C perfringens Moderate Bacteroides fragilis Group Moderate Peptostreptococcus species COVID-19 PCR [[id number]] Collected: 09/02/19 0141 Lab Status: Final result [...] using the Simplexa COVID-19 Direct Assay by BreathalEyes as authorized by the FDA issued Emergency [...] Department of Pathology and Laboratory Medicine at [facility], certified under the Clinical Laboratory Improvement Amendments [...] Information for Healthcare Professionals (https://www.cdc.gov/coronavirus/2019-ncov/hcp/index.html). SARS-CoV-2 Source PIPE CONNECTOR Swab Blood culture [[id number]] Collected: 09/01/192207 Lab Status: Preliminary result Specimen: Blood Updated: 09/04/192300 Blood Culture No growth at 3 days. Blood culture [[id number]] Collected: 09/01/192207 Lab Status: Preliminary result Specimen: [...] day [facility] Team pager #[phone] Personal pager #[phone] Associated attestation - Terrance Santana MD - 09/06/2019 1:06 PM EDT I agree with the above note written by BOB Cao. Please see my additional, separate notefor any changes or amendments. Terrance Santana MD * Plan of Care - Mavis Ahuja RN - 09/04/2019 10:45 PM EDT Problem: Patient Care Overview Goal: Plan of Care Review Outcome: Ongoing (Interventions Implemented as Appropriate) 09/04/19 1690 Plan of Care Review Progress progress towards [...] Handling Outcome: Ongoing (Interventions Implemented as Appropriate) 09/03/1990809/04/19193009/04/192199 Daily Care Interventions Self-Care Promotion -- BADL [...] Care Overview Goal: Plan of Care Review 09/03/19 1832 09/03/192107 Plan of Care Review [...] hepatic abscess. Notably, patient was admitted to [facility] earlier this month in the setting of [...] LIVER 09/02/2019 CT Guided Aspiration Liver 09/02/2019 [facility] RAD CAT SCAN ??? PRO BONE MARROW ASPIRATION W/BX THROUGH SAME INCISION/SITE Right 01/08/2017 ([facility]) BONE MARROW ASP PERFORMED W/BX THRU BX INCISION (WRVU 0.16) performed by Lee Ann Jay MD at [facility] OSC ??? PRO BONE MARROW BX, NEEDLE/TROCAR Right 01/08/2017 [facility] BONE MARROW,BIOPSY (WRVU 1.37) performed by Lee Ann Jay MD at [facility] OSC ??? PRO COLONOSCOPY, BIOPSY 07/05/2011 COLONOSCOPY FLEXIBLE, WITH BX performed by MARY CASTRO at [facility] ENDOSCOPY ??? PRO COLONOSCOPY, REMV LESN, SNARE 07/05/2011 COLONOSCOPY, POLYPECTOMY, REMOVAL LESION BY SNARE performed by MARY CASTRO at [facility] ENDOSCOPY ??? PRO SIGMOIDOSCOPY, DIAGNOSTIC N/A 09/02/2019 FLEXIBLE SIGMOIDOSCOPY performed by Mary Castro MD at [facility] ENDOSCOPY Medications: ??? oxyCODONE (Roxicodone) tablet [...] Family History: Noncontributory Social History: Lives in [place] with her 6 drinks per week Nonsmoker No illicits No pets Travel - to [place] in Apr, to [place] in May No camping, no suspicious food [...] Neuro: without focal deficits Laboratory: Recent Labs 09/04/193 09/03/1963509/01/192207 WBC 1.9* 4.1 5.5 HGB 12.0 12.0 11.2* HCT 38.4 39.6 35.4* PLATELET 296 315 308 Recent Labs 09/04/193 09/03/1963509/01/192207 NA 138 133* 134* K 4.1 3.8 4.0 CL 101 97* 94* CO2 27 26 27 BUN 9 10 10 CREATININE 0.49* 0.54* 0.67* Recent Labs 06/25/20 0636 06/23/20 2208 AST 15 25 ALT 32* 44* ALKPHOS 105 112* BILITOT 0.4 0.3 BILIDIR 0.1 0.1 No results found for: CRP No results found for: SEDRATE Component Value Date/Time SPGRAVITYUA >=1.030 (A) 09/01/2019 2333 PHUADIP 5.0 09/01/2019 2333 PROTEINUADIP 30 (A) 09/01/2019 2333 GLUCOSEU Negative 09/01/2019 2333 KETONESUA Trace (A) 09/01/2019 2333 UROBILIUADIP Normal 09/01/2019 2333 BLOODUADIP Trace (A) 09/01/2019 2333 NITRATEUA Negative 09/01/20193 LEUKOESTERUA Negative 09/01/20192332 WBCUA 1 09/01/20193 BILIRUBINUA Negative 09/01/20192332 Micro: Microbiology Results (Last 30 days) Procedure Component Value Units Date/Time Body Fluid Culture, Aerobic & Anaerobic Abdominal Fluid [[id number]] Collected: 09/02/19 1300 Lab Status: Preliminary result Specimen: Abdominal Fluid Updated: 09/03/19 1409 Body Fluid Culture, Aerobic [[id number]] (Abnormal) Collected: 09/02/19 1300 Lab Status: Preliminary result Specimen: Abdominal Fluid Updated: 09/03/19 0807 Body Fluid Culture No growth to date. Gram Stain -- Many Neutrophils seen Many Gram Positive Cocci seen Few Gram Negative Rods seen Rare Gram Positive Rods seen Anaerobic Culture [[id number]] Collected: 09/02/19 1300 Lab Status: Preliminary result Specimen: Abdominal Fluid Updated: 09/03/19 1409 Anaerobic Culture No anaerobic organisms isolated to date COVID-19 PCR [[id number]] Collected: 09/02/19 0141 Lab Status: Final result [...] using the Simplexa COVID-19 Direct Assay by BreathalEyes as authorized by the FDA issued Emergency [...] Department of Pathology and Laboratory Medicine at [facility], certified under the Clinical Laboratory Improvement Amendments [...] Information for Healthcare Professionals (https://www.cdc.gov/coronavirus/2019-ncov/hcp/index.html). SARS-CoV-2 Source PIPE CONNECTOR Swab Blood culture [[id number]] Collected: 09/01/192207 Lab Status: Preliminary result Specimen: Blood Updated: 09/03/192300 Blood Culture No growth at 2 days. Blood culture [[id number]] Collected: 09/01/192207 Lab Status: Preliminary result Specimen: [...] therapy for her abscess. During admission to [facility], there was CT evidence of a low [...] initial CT imaging. Her blood cultures at [facility] had grown E. Coli and strep constellatus; [...] from blood cultures during previous admission to [facility] - hold PICC placement, as it is [...] been on any therapy and presented to [facility] at the beginning of August with evidence [...] as Appropriate) 09/03/19 0909 09/03/19 1147 09/03/19 1832 Daily Care Interventions Self-Care Promotion -- -- [...] Outcome: Ongoing (Interventions Implemented as Appropriate) 09/03/19 0909/04/19 035 Safety Interventions Isolation Precautions -- standard precautions [...] (on steroid taper). She was admitted to [facility] earlier this month for colitis c/b E.coli bacteremia. Patient was treated with flagyl and cipro originally and discharged on cipro. Initially stable, she then developed 1-week-hx of intermittent spiking fevers and was found to have a R lobe hepatic abscess on CT A/P. 24 hr events: - NAEO - Pain 1-2/10 overnight - Small regular BM - Suction [...] Labs Recent Labs 09/04/19 0443 09/03/19 0636 09/01/192207 WBC 1.9* 4.1 5.5 HGB 12.0 12.0 11.2* HCT 38.4 39.6 35.4* PLATELET 296 315 308 Recent Labs 09/04/19 0443 09/03/19 0636 09/01/192207 NA 138 133* 134* K 4.1 3.8 4.0 CL 101 97* 94* CO2 27 26 27 BUN 9 10 10 CREATININE 0.49* 0.54* 0.67* Recent Labs 09/03/19 0636 09/01/19 2208 AST 15 25 ALT 32* 44* ALKPHOS 105 112* BILITOT 0.4 0.3 BILIDIR 0.1 0.1 Recent Labs 09/04/19 0443 09/03/19 0636 09/01/19 2208 CALCIUM 9.4 9.2 8.8 Recent Labs 09/01/19 2208 INR 1.2 PT 13.6* PTT 31 No results for input(s): CK, TROPONINT in the last 168 hours. No results for input(s): POCGLU in the last 168 hours. No results for input(s): PROBNP in the last 168 hours. Micro Microbiology Results (Last 30 days) Procedure Component Value Units Date/Time Body Fluid Culture, Aerobic & Anaerobic Abdominal Fluid [[id number]] Collected: 09/02/19 1300 Lab Status: Preliminary result Specimen: Abdominal Fluid Updated: 09/03/19 1409 Body Fluid Culture, Aerobic [[id number]] (Abnormal) Collected: 09/02/19 1300 Lab Status: Preliminary result Specimen: Abdominal Fluid Updated: 09/03/19 0807 Body Fluid Culture No growth to date. Gram Stain -- Many Neutrophils seen Many Gram Positive Cocci seen Few Gram Negative Rods seen Rare Gram Positive Rods seen Anaerobic Culture [[id number]] Collected: 09/02/19 1300 Lab Status: Preliminary result Specimen: Abdominal Fluid Updated: 09/03/19 1409 Anaerobic Culture No anaerobic organisms isolated to date COVID-19 PCR [[id number]] Collected: 09/02/19 0141 Lab Status: Final result [...] using the Simplexa COVID-19 Direct Assay by BreathalEyes as authorized by the FDA issued Emergency [...] Department of Pathology and Laboratory Medicine at [facility], certified under the Clinical Laboratory Improvement Amendments [...] Information for Healthcare Professionals (https://www.cdc.gov/coronavirus/2019-ncov/hcp/index.html). SARS-CoV-2 Source PIPE CONNECTOR Swab Blood culture [[id number]] Collected: 09/01/192207 Lab Status: Preliminary result Specimen: Blood Updated: 09/03/192300 Blood Culture No growth at 2 days. Blood culture [[id number]] Collected: 09/01/192207 Lab Status: Preliminary result Specimen: [...] dc to home in 1 day Rizwan Lama MS4 Hospital Medicine Team pager #[phone] Personal pager #[phone] * Plan of Care - Marylu Shah [...] EVALUATION: * Med Student Progress Note - Rizwna Lama - 09/03/2019 8:16 AM EDT Images from the original note were not included. Inpatient Medicine Progress Note ID: Leti Parry is a 68 y.o. 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 She was admitted to [facility] earlier this month for colitis c/b E.coli [...] CREATININE 0.54* 0.67* Recent Labs 09/03/19 0636 09/01/19 2208 AST 15 25 ALT 32* 44* ALKPHOS 105 112* BILITOT 0.4 0.3 BILIDIR 0.1 0.1 Recent Labs 09/03/19 0636 09/01/19 2208 CALCIUM 9.2 8.8 Recent Labs 09/01/19 2208 INR 1.2 PT 13.6* PTT 31 No results for input(s): CK, TROPONINT in the last 168 hours. No results for input(s): POCGLU in the last 168 hours. No results for input(s): PROBNP in the last 168 hours. Micro Microbiology Results (Last 30 days) Procedure Component Value Units Date/Time Body Fluid Culture, Aerobic & Anaerobic Abdominal Fluid [[id number]] Collected: 09/02/19 1300 Lab Status: In process Specimen: Abdominal Fluid Updated: 09/03/19 0807 Body Fluid Culture, Aerobic [[id number]] (Abnormal) Collected: 09/02/19 1300 Lab Status: Preliminary result Specimen: Abdominal Fluid Updated: 09/03/19 0807 Body Fluid Culture No growth to date. Gram Stain -- Many Neutrophils seen Many Gram Positive Cocci seen Few Gram Negative Rods seen Rare Gram Positive Rods seen COVID-19 PCR [[id number]] Collected: 09/02/19 0141 Lab Status: Final result [...] using the Simplexa COVID-19 Direct Assay by BreathalEyes as authorized by the FDA issued Emergency [...] Department of Pathology and Laboratory Medicine at [facility], certified under the Clinical Laboratory Improvement Amendments [...] Information for Healthcare Professionals (https://www.cdc.gov/coronavirus/2019-ncov/hcp/index.html). SARS-CoV-2 Source PIPE CONNECTOR Swab Blood culture [[id number]] Collected: 09/01/192207 Lab Status: Preliminary result Specimen: Blood Updated: 09/02/192300 Blood Culture No growth at 1 day. Blood culture [[id number]] Collected: 09/01/192207 Lab Status: Preliminary result Specimen: [...] dc to home in 2 days Rizwan Lama, MS4 [facility] Medicine Team pager #[phone] Personal pager #[phone] * Plan of Care - Sabrina Castro RN - 09/03/2019 12:26 AM EDT Problem: Patient Care Overview Goal: Plan of Care Review Outcome: Ongoing (Interventions Implemented as Appropriate) 09/02/19 0825 09/02/19 9735 Plan of Care Review Progress progress toward functional goals as expected -- Coping/Psychosocial Plan Of Care Reviewed With -- patient OUTCOME EVALUATION NOTE: OUTCOME SUMMARY: Pt alert and oriented x4. VS as charted, on RA. HR demar to the low 50s overnight, pt states that is normal for her when she sleeps, notified. Pt c/o 8/10 back/abdominal pain, PRN dilaudid and tylenol given. Denies SOB. Pt able to make needs known. Calm and cooperative throughout shift. Ambulating SBA without issue. Pt able to sleep in between care. Repositioning herself without issue.. Meds given per MAR order. LR infusing @ 75 mL/hr. IV [...] -- * Med Student Progress Note - Rizwan Lama - 09/02/2019 1:41 PM EDT Images from the original note were not included. Inpatient Medicine Progress Note ID: Leti Parry is a 68 y.o. 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 She was admitted to [facility] earlier this month for colitis c/b E.coli [...] I/O: Intake/Output Summary (Last 24 hours) at 09/02/2019 172 Last data filed at 09/02/2019 1300 Gross [...] Fluid Culture, Aerobic & Anaerobic Abdominal Fluid [[id number]] Collected: 09/02/19 1300 Lab Status: In process Specimen: Abdominal Fluid Updated: 09/02/19 1527 Body Fluid Culture, Aerobic [[id number]] (Abnormal) Collected: 09/02/19 1300 Lab Status: Preliminary result Specimen: Abdominal Fluid Updated: 09/02/19 1527 Gram Stain -- Many Neutrophils seen Many Gram Positive Cocci seen Few Gram Negative Rods seen Rare Gram Positive Rods seen COVID-19 PCR [[id number]] Collected: 09/02/19 0141 Lab Status: Final result Specimen: Nasopharyngeal Swab Updated: 09/02/197 Rapid SARS-CoV-2 RNA Not Detected Comment: This [...] using the Simplexa COVID-19 Direct Assay by BreathalEyes as authorized by the FDA issued Emergency [...] Department of Pathology and Laboratory Medicine at [facility], certified under the Clinical Laboratory Improvement Amendments [...] Information for Healthcare Professionals (https://www.cdc.gov/coronavirus/2019-ncov/hcp/index.html). SARS-CoV-2 Source PIPE CONNECTOR Swab Imaging/Studies: CT A/P (08/31): showed R [...] dc to home in 2 days Rizwan Lama, AL4 Hospital Medicine Team pager #[phone] Personal pager #[phone] * Consult Note - Mary Castro MD [...] hospitalized in the beginning of August at [facility] with worsening diarrhea/painful defecation/fevers to 102.5 found to have E.coli bacteremia and L sided colitis on CT - discharged on PO antibiotics and Prednisone, had been recovering well but now developed worsening fevers again with imaging showing an new R hepatic abscess. She had seen Dr. Oliveros in GI telehealth on 08/17 after her hospitalization at [facility], plan was to quick taper Prednisone which [...] file Gets together: Not on file Attends methodist service: Not on file Active member of [...] washospitalized in the beginning of August at [facility] with worsening diarrhea/painful defecation/fevers to 102.5 found [...] culture sensitivity data on E. Coli from [facility] - Continue prednisone taper as previously planned - Once she is feeling better we will plan for a bowel prep with a full colonoscopy to re-evaluate response of colitis to antibiotics and extent of involvement The plan as outlined above was discussed with Dr. Castro. Hesham Dobson MD Gastroenterology Fellow #[phone] I have seen and evaluated the patient [...] colitis on steroid taper, recent admission to [facility] for colitis c/b E coli bacteremia tx'd [...] Past 30 Days: Yes patient admitted to [facility] 08/14-08/16. Patient returned toED on 08/27. Patient [...] Montez would be surrogate decision maker per [place] surrogate decision making law. Any patient receiving care at [facility] must abide by [place] law. The hierarchy for surrogate decision making [...] (i) The agent with financial power of litigation attorney associate or a conservator appointed in accordance with [...] Health/Prescription Coverage: Primary Insurance: MEDICARE Secondary Insurance: [employer] [facility] Prescription Coverage: Yes through [employer] Preferred Pharmacy: [email or web address] Other: N/A Primary Care Provider: Julia Chatterjee MD [phone] Patient/Caregiver Goals of Treatment: To be 100% [...] colitis on steroid taper, recent admission to [facility] for colitis c/b E coli bacteremia tx'd with cipro who has had ongoing fevers and found to have hepatic abscess. Patient is independent with ADLs/IADLs and lives with a supportive . Patient is closely followed by GI and Hematology. Patient feels she is safe to go home without services. Patient's will provide transportation viaprivate car at discharge. Patient has insurance coverage through [employer] ([employer]) and request medications be sent to [facility] in [facility]. Patient declines Advance Directive paperwork at this time. Plan: A member of the Care Management team will continue to monitor progress, follow for continuityof care and assist with transition of care planning. JAMES Enrique Pager: [phone] * Plan of Care - Claudine Huertas [...] [continuous indirect monitoring]: Purposeful rounding, room near ns station, call light within reach, masimo on [...] a patient * ED Triage - Power Arroyo, RN - 09/01/2019 7:52 PM EDT C/o fever this AM. Known hepatic abscess, sent here by PCP for workup. Denies pain, NAD. A+O. documented in this encounter Plan of Treatment Upcoming Encounters Date Type Department Care Team (Late st Contact Info) Description 04/15/2024 1:00 PM EST Office Visit Hematology/Oncology at [address] [phone] Lee Ann Jay MD [facility] HEMATOLOGY [place] [address] Leti Anderson, MANAGEMENT ENGINEER [facility] HEMATOLOGY [place] [address] Scheduled Referrals Name Type Priority Associated Diagnoses [...] STAT 09/01/2019 7:57 PM EDT Sigmoidoscopy, Diagnostic (50465) colitis documented in this encounter Results * [...] Place PICC Line: Contact Vascular Access Page [phone] Extremity to exclude: No restrictions; Is PICC [...] to the planned procedure. Hand Hygiene: The wood cut engraver did perform hand hygiene prior to line insertion. Catheter type: PICC Lot number: [id number] Procedure Technique: Skin was prepped with chlorhexidine. [...] below. ? Electronically signed by: Jodee Ortega [facility] ([phone]), at 09/07/2019 9:45 AM Narrative 09/07/2019 9:45 [...] number below. Electronically signed by: Jodee Ortega [facility]([phone]), at 09/07/2019 9:45 AM Terrance Santana MD IMG FLUORO ORDERABLE S * (ABNORMAL) Differential, Automated (09/07/2019 6:23 AM EDT) Neutrophil % 65.2 % [facility] Neutrophil Absolute 4.83 1.70 - 6.10 x10(3)/mc L [facility] Lymph % 20.6 % [facility] Lymphocytes Abs 1.5 0.9 - 3.2 x10(3)/mc L [facility] Monocyte % 6.7 % [facility] Monocyte Abs 0.5 0.3 - 0.9 x10(3)/mc L [facility] Eos % 0.1 % [facility] Eosinophils Abs 0.0 0.0 - 0.4 x10(3)/mc L [facility] Basophil % 0.1 % [facility] Baso Absolute 0.0 0.0 - 0.1 x10(3)/mc L [facility] Immature Gran % 7.30 % [facility] Comment: Immature granulocytes(IG's)percentage and absolute count will include metamyelocytes, myelocytes, and promyelocytes. Blood smears from CBCs yielding IG's will be scanned manually for concordance. If this scan disagrees with the automated IG or if promyelocytes are noted, a manual differential will be performed. Immature Gran Absolute 0.54(H) 0.00 - 0.04 x10(3)/mc L [facility] Blood specimen (specimen) 09/07/2019 6:23 AM EDT 09/07/2019 6:48 AM EDT Narrative Resulting Agency Comment Spec In Lab Terrance Santana MD HEMATOLOGY ORDERABLE S [facility] [place] [address] * (ABNORMAL) Hemogram (09/07/2019 6:23 AM EDT) White Blood Cell 7.4 4.0 - 9.5 x10(3)/ L [facility] Red Blood Cell 4.23 4.00 - 5.21 x10(6)/ L [facility] Hemoglobin 11.7 11.7 - 15.5 gm/dL [facility] Hematocrit 38.0 35.7 - 45.8 % [facility] Mean Cell Volume 89.8 82.6 - 94.4 fL [facility] Mean Cell Hemoglobin 27.7 27.1 - 32.0 pg [facility] Mean Cell Hemoglobin Concentration 30.8(L) 31.7 - 35.0 gm/dL [facility] Platelet 306 145 - 357 x10(3)/mc L [facility] RDW Standard Deviation 46.4(H) 37.0 - 46.0 fL [facility] RDW coefficient of variation 14.3(H) 11.5 - 14.1 % [facility] Mean Platelet Volume 9.9 7.6 - 12.9 fL [facility] NRBC% auto 0.0 % [facility] NRBC Absolute 0.000 0.000 - 0.000 x10(3)/ L [facility] Blood specimen (specimen) 09/07/2019 6:23 AM EDT 09/07/2019 6:48 AM EDT Narrative Resulting Agency Comment Spec In Lab Terrance Santana MD HEMATOLOGY ORDERABLE S Performing Organization Address City/[facility]/ZIP Co de Phone Number [facility] [place] [address] * (ABNORMAL) Differential, Automated (09/06/2019 9:50 AM EDT) Neutrophil % 75.8 % [facility] Neutrophil Absolute 8.52(H) 1.70 - 6.10 x10(3)/mc L [facility] Lymph % 10.1 % [facility] Lymphocytes Abs 1.1 0.9 - 3.2 x10(3)/mc L [facility] Monocyte % 7.5 % [facility] Monocyte Abs 0.8 0.3 - 0.9 x10(3)/mc L [facility] Eos % 0.1 % [facility] Eosinophils Abs 0.0 0.0 - 0.4 x10(3)/mc L [facility] Basophil % 0.4 % [facility] Baso Absolute 0.0 0.0 - 0.1 x10(3)/mc L [facility] Immature Gran % 6.10 % [facility] Comment: Immature granulocytes(IG's)percentage and absolute count will include metamyelocytes, myelocytes, and promyelocytes. Blood smears from CBCs yielding IG's will be scanned manually for concordance. If this scan disagrees with the automated IG or if promyelocytes are noted, a manual differential will be performed. Immature Gran Absolute 0.69(H) 0.00 - 0.04 x10(3)/mc L [facility] Blood specimen (specimen) 09/06/2019 9:50 AM EDT 09/06/2019 10:44 AM EDT Narrative Resulting Agency Comment Spec In Lab Terrance Santana MD HEMATOLOGY ORDERABLE S Performing Organization Address City/[facility]/ZIP Co de Phone Number [facility] [place] [address] * (ABNORMAL) Hemogram (09/06/2019 9:50 AM EDT) White Blood Cell 11.2(H) 4.0 - 9.5 x10(3)/mc L [facility] Red Blood Cell 4.38 4.00 - 5.21 x10(6)/mc L [facility] Hemoglobin 12.3 11.7 - 15.5 gm/dL [facility] Hematocrit 39.6 35.7 - 45.8 % [facility] Mean Cell Volume 90.4 82.6 - 94.4 fL [facility] Mean Cell Hemoglobin 28.1 27.1 - 32.0 pg [facility] Mean Cell Hemoglobin Concentration 31.1(L) 31.7 - 35.0 gm/dL [facility] Platelet 300 145 - 357 x10(3)/ L [facility] RDW Standard Deviation 46.3(H) 37.0 - 46.0 fL [facility] RDW coefficient of variation 14.0 11.5 - 14.1 % [facility] Mean Platelet Volume 10.0 7.6 - 12.9 fL [facility] NRBC% auto 0.0 % [facility] NRBC Absolute 0.000 0.000 - 0.000 x10(3)/ L [facility] Blood specimen (specimen) 09/06/2019 9:50 AM EDT 09/06/2019 10:44 AM EDT Narrative Resulting Agency Comment Spec In Lab Terrance Santana MD HEMATOLOGY ORDERABLE S [facility] [place] [address] * Scan, Peripheral Blood (09/05/2019 4:52 AM EDT) Pathologist [facility] Plat estimate Normal [facility] RBC Morphology Abnormal [facility] Ovalocytes 1-5 /HPF [facility] Blood specimen (specimen) 09/05/2019 4:52 AM EDT 09/05/2019 5:06 AM EDT Narrative Resulting Agency Comment Spec In Lab Terrance Santana MD HEMATOLOGY ORDERABLE S [facility] [place] [address] * (ABNORMAL) Differential, Automated (09/05/2019 4:52 AM EDT) Neutrophil % 27.5 % [facility] Neutrophil Absolute 0.42(Crit ical) 1.70 - 6.10 x10(3)/mc L [facility] Comment: This result has been called to TOM AHUJA by RADHA JOHN on 09 05 2019 at 0551, and has been read back. Lymph % 46.4 % [facility] Lymphocytes Abs 0.7(L) 0.9 - 3.2 x10(3)/mc L [facility] Monocyte % 17.6 % [facility] Monocyte Abs 0.3 0.3 - 0.9 x10(3)/mc L [facility] Eos % 0.0 % [facility] Eosinophils Abs 0.0 0.0 - 0.4 x10(3)/mc L [facility] Basophil % 0.0 % [facility] Baso Absolute 0.0 0.0 - 0.1 x10(3)/mc L [facility] Immature Gran % 8.50 % [facility] Comment: Immature granulocytes(IG's)percentage and absolute count will include metamyelocytes, myelocytes, and promyelocytes. Blood smears from CBCs yielding IG's will be scanned manually for concordance. If this scan disagrees with the automated IG or if promyelocytes are noted, a manual differential will be performed. Immature Gran Absolute 0.13(H) 0.00 - 0.04 x10(3)/mc L [facility] Blood specimen (specimen) 09/05/2019 4:52 AM EDT 09/05/2019 5:06 AM EDT Narrative Resulting Agency Comment Spec In Lab Terrance Santana MD HEMATOLOGY ORDERABLE S [facility] [place] [address] * (ABNORMAL) Hemogram (09/05/2019 4:52 AM EDT) White Blood Cell 1.5(Criti tosha) 4.0 - 9.5 x10(3)/mc L [facility] Comment: This result has been called to TOM AHUJA by RADHA JOHN on 09 05 2019 at 0551, and has been read back. Red Blood Cell 3.95(L) 4.00 - 5.21 x10(6)/mc L [facility] Hemoglobin 11.0(L) 11.7 - 15.5 gm/dL [facility] Hematocrit 35.8 35.7 - 45.8 % [facility] Mean Cell Volume 90.6 82.6 - 94.4 fL [facility] Mean Cell Hemoglobin 27.8 27.1 - 32.0 pg [facility] Mean Cell Hemoglobin Concentration 30.7(L) 31.7 - 35.0 gm/dL [facility] Platelet 266 145 - 357 x10(3)/mc L [facility] RDW Standard Deviation 45.3 37.0 - 46.0 [facility] RDW coefficient of variation 13.7 11.5 - 14.1 % [facility] Mean Platelet Volume 9.7 7.6 - 12.9 fL [facility] NRBC% auto 0.0 % [facility] NRBC Absolute 0.000 0.000 - 0.000 x10(3)/mc L [facility] Blood specimen (specimen) 09/05/2019 4:52 AM EDT 09/05/2019 5:06 AM EDT Narrative Resulting Agency Comment Spec In Lab Terrance Santana MD HEMATOLOGY ORDERABLE S [facility] [place] [address] * Scan, Peripheral Blood (09/04/2019 4:43 AM EDT) Plat estimate Normal [facility] RBC Morphology Normal [facility] Blood specimen (specimen) 09/04/2019 4:43 AM EDT 09/04/2019 5:23 AM EDT Narrative Resulting Agency Comment Spec In Lab Terrance Santana MD HEMATOLOGY ORDERABLE S Performing Organization Address City/[facility]/ZIP Co de Phone Number [facility] [place] [address] * (ABNORMAL) Basic Metabolic Panel (non-fasting) (09/04/2019 4:43 AM EDT) [facility] Glucose 88 65 - 199 mg/dL [facility] Comment:Diabetes: >=200 mg/d L plus symptoms Blood Urea Nitrogen 9 8 - 18 mg/dL [facility] Creatinine 0.49(L) 0.70 - 1.20 mg/dL [facility] Sodium 138 135 - 145 mmol/L [facility] Potassium 4.1 3.5 - 5.0 mmol/L [facility] Comment: Please note: ??Patients with WBC >100,000 may have falsely elevated Potassium levels. ??For accurate Potassium quantification in these patients send serum separator tube (gold top) for subsequent determinations. ??Contact the Clinical Chemistry Laboratory if there are any questions. Chloride 101 98 - 107 mmol/L [facility] Carbon Dioxide 27 22 - 31 mmol/L [facility] Anion Gap 10 5 - 15 mmol/L [facility] Calcium 9.4 8.5 - 10.5 mg/dL [facility] Est Glomerular Filtration Rate 101 >=60 mL/min/1. 73 m?? [facility] Comment: The eGFR was calculated using the CKD-EPI equation. As with all creatinine based estimates of kidney function, eGFR values calculated with the CKD-EPI equation are not accurate in patients with acute kidney failure, extremes of body mass or the acutely ill. [email or web address] eGFR 117 >=60 mL/min/1. 73 m?? [facility] Comment: The eGFR was calculated using the CKD-EPI equation. As with all creatinine based estimates of kidney function, eGFR values calculated with the CKD-EPI equation are not accurate in patients with acute kidney failure, extremes of body mass or the acutely ill. [email or web address] Blood specimen (specimen) 09/04/2019 4:43 AM EDT 09/04/2019 5:00 AM EDT Narrative Resulting Agency Comment Spec In Lab Alexis Caro MD CHEMISTRY ORDERABLES [facility] [place] [id number] * (ABNORMAL) Differential, Automated (09/04/2019 4:43 AM EDT) Neutrophil % 32.3 % [facility] Neutrophil Absolute 0.60(L) 1.70 - 6.10 x10(3)/mc L [facility] Lymph % 47.3 % [facility] Lymphocytes Abs 0.9 0.9 - 3.2 x10(3)/mc L [facility] Monocyte % 14.0 % [facility] Monocyte Abs 0.3 0.3 - 0.9 x10(3)/mc L [facility] Eos % 0.0 % [facility] Eosinophils Abs 0.0 0.0 - 0.4 x10(3)/mc L [facility] Basophil % 0.5 % [facility] Baso Absolute 0.0 0.0 - 0.1 x10(3)/mc L [facility] Immature Gran % 5.90 % [facility] Comment: Immature granulocytes(IG's)percentage and absolute count will include metamyelocytes, myelocytes, and promyelocytes. Blood smears from CBCs yielding IG's will be scanned manually for concordance. If this scan disagrees with the automated IG or if promyelocytes are noted, a manual differential will be performed. Immature Gran Absolute 0.11(H) 0.00 - 0.04 x10(3)/ L [facility] Blood specimen (specimen) 09/04/2019 4:43 AM EDT 09/04/2019 5:23 AM EDT Narrative Resulting Agency Comment Spec In Lab Terrance Santana MD HEMATOLOGY ORDERABLE S [facility] [place] [address] * (ABNORMAL) Hemogram (09/04/2019 4:43 AM EDT) White Blood Cell 1.9(Criti tosha) 4.0 - 9.5 x10(3)/ L [facility] Comment: This result has been called to FLO DEE by MIMA ELISE on 09 04 2019 at 0608, and has been read back. Red Blood Cell 4.32 4.00 - 5.21 x10(6)/mc L [facility] Hemoglobin 12.0 11.7 - 15.5 gm/dL [facility] Hematocrit 38.4 35.7 - 45.8 % [facility] Mean Cell Volume 88.9 82.6 - 94.4 fL [facility] Mean Cell Hemoglobin 27.8 27.1 - 32.0 pg [facility] Mean Cell Hemoglobin Concentration 31.3(L) 31.7 - 35.0 gm/dL [facility] Platelet 296 145 - 357 x10(3)/mc L [facility] RDW Standard Deviation 44.5 37.0 - 46.0 fL [facility] RDW coefficient of variation 13.8 11.5 - 14.1 % [facility] Mean Platelet Volume 9.8 7.6 - 12.9 fL [facility] NRBC% auto 0.0 % [facility] NRBC Absolute 0.000 0.000 - 0.000 x10(3)/mc L [facility] Blood specimen (specimen) 09/04/2019 4:43 AM EDT 09/04/2019 5:23 AM EDT Narrative Resulting Agency Comment Spec In Lab Terrance Santana MD HEMATOLOGY ORDERABLE S [facility] [place] [address] * (ABNORMAL) Differential, Automated (09/03/2019 6:36 AM EDT) Neutrophil % 57.4 % [facility] Neutrophil Absolute 2.33 1.70 - 6.10 x10(3)/mc L [facility] Lymph % 20.0 % [facility] Lymphocytes Abs 0.8(L) 0.9 - 3.2 x10(3)/mc L [facility] Monocyte % 17.5 % [facility] Monocyte Abs 0.7 0.3 - 0.9 x10(3)/mc L [facility] Eos % 0.0 % [facility] Eosinophils Abs 0.0 0.0 - 0.4 x10(3)/mc L [facility] Basophil % 0.2 % [facility] Baso Absolute 0.0 0.0 - 0.1 x10(3)/mc L [facility] Immature Gran % 4.90 % [facility] Comment: Immature granulocytes(IG's)percentage and absolute count will include metamyelocytes, myelocytes, and promyelocytes. Blood smears from CBCs yielding IG's will be scanned manually for concordance. If this scan disagrees with the automated IG or if promyelocytes are noted, a manual differential will be performed. Immature Gran Absolute 0.20(H) 0.00 - 0.04 x10(3)/ L [facility] Blood specimen (specimen) 09/03/2019 6:36 AM EDT 09/03/2019 6:59 AM EDT Narrative Resulting Agency Comment Spec In Lab Terrance Santana MD HEMATOLOGY ORDERABLE S [facility] [place] [address] * (ABNORMAL) Hemogram (09/03/2019 6:36 AM EDT) White Blood Cell 4.1 4.0 - 9.5 x10(3)/[facility] Red Blood Cell 4.42 4.00 - 5.21 x10(6)/[facility] Hemoglobin 12.0 11.7 - 15.5 gm/dL [facility] Hematocrit 39.6 35.7 - 45.8 % [facility] Mean Cell Volume 89.6 82.6 - 94.4 fL [facility] Mean Cell Hemoglobin 27.1 27.1 - 32.0 pg [facility] Mean Cell Hemoglobin Concentration 30.3(L) 31.7 - 35.0 gm/dL [facility] Platelet 315 145 - 357 x10(3)/ L [facility] RDW Standard Deviation 44.9 37.0 - 46.0 [facility] RDW coefficient of variation 13.7 11.5 - 14.1 % [facility] Mean Platelet Volume 10.2 7.6 - 12.9 [facility] NRBC% auto 0.0 % [facility] NRBC Absolute 0.000 0.000 - 0.000 x10(3)/ L [facility] Blood specimen (specimen) 09/03/2019 6:36 AM EDT 09/03/2019 6:59 AM EDT Narrative Resulting Agency Comment Spec In Lab Terrance Santana MD HEMATOLOGY ORDERABLE S Performing Organization Address [facility] de Phone Number [facility] [place] [address] * (ABNORMAL) Hepatic Function Panel (09/03/2019 6:36 AM EDT) Protein, Total 7.3 6.1 - 8.0 gm/dL [facility] Albumin 3.2 3.2 - 5.2 gm/dL [facility] Aspartate Aminotransferase 15 0 - 30 unit/L [facility] Alanine Aminotransferase 32(H) 0 - 30 unit/L [facility] Alkaline Phosphatase 105 35 - 105 unit/L [facility] Bilirubin, Total 0.4 0.2 - 1.3 mg/dL [facility] Bilirubin, Direct 0.1 0.0 - 0.3 mg/dL [facility] Blood specimen (specimen) 09/03/2019 6:36 AM EDT 09/03/2019 6:58 AM EDT Narrative Resulting Agency Comment Spec In Lab Alexis Caro MD CHEMISTRY ORDERABLES Performing Organization Address [facility] Co de Phone Number [facility] [place] [address] * (ABNORMAL) BMP w/fasting Glucose (09/03/2019 6:36 AM EDT) Glucose Fasting 102(H) 65 - 99 mg/dL [facility] Comment: ?Fasting* Glucose Interpretive Criteria Normal [...] of Diabetes Mellitus, Position Statement from the [place] Diabetes Association. ??Diabetes Care, Volume 33, Supplement 1, Mar 2009 Blood Urea Nitrogen 10 8 - 18 mg/dL [facility] Creatinine 0.54(L) 0.70 - 1.20 mg/dL [facility] Sodium 133(L) 135 - 145 mmol/L [facility] Potassium 3.8 3.5 - 5.0 mmol/L [facility] Comment: Please note: ??Patients with WBC >100,000 may have falsely elevated Potassium levels. ??For accurate Potassium quantification in these patients send serum separator tube (gold top) for subsequent determinations. ??Contact the Clinical Chemistry Laboratory if there are any questions. Chloride 97(L) 98 - 107 mmol/L [facility] Carbon Dioxide 26 22 - 31 mmol/L [facility] Anion Gap 10 5 - 15 mmol/L [facility] Calcium 9.2 8.5 - 10.5 mg/dL [facility] Est Glomerular Filtration Rate 98 >=60 mL/min/1. 73 m?? [facility] Comment: The eGFR was calculated using the CKD-EPI equation. As with all creatinine based estimates of kidney function, eGFR values calculated with the CKD-EPI equation are not accurate in patients with acute kidney failure, extremes of body mass or the acutely ill. [email or web address] eGFR 113 >=60 mL/min/1. 73 m?? [facility] Comment: The eGFR was calculated using the CKD-EPI equation. As with all creatinine based estimates of kidney function, eGFR values calculated with the CKD-EPI equation are not accurate in patients with acute kidney failure, extremes of body mass or the acutely ill. [email or web address] Blood specimen (specimen) 09/03/2019 6:36 AM EDT 09/03/2019 6:58 AM EDT Narrative Resulting Agency Comment Spec In Lab Alexis Caro MD CHEMISTRY ORDERABLES [facility] [place] [address] * CT Guided Aspiration Liver (09/02/2019 1:33 [...] in 4 weeks for fluoroscopic drain check. Sap Data Architect(s): Resident/Fellow: Johan Hernandez M.D. Attending: Terrance Gunter [...] report, please contact the number below. ? Narrative 09/02/2019 4:02 PM EDT RADIOLOGY PROCEDURE [...] access tract was dilated and a 10 American locking pigtail drainage catheter was placed. Post [...] vein thrombus.. Final CT showed a 10 American drain positioned in the hepatic fluid collection. [...] vein thrombus.. Final CT showed a 10 American drain positioned inthe hepatic fluid collection. 5 mL of purulent fluid was removed. IMPRESSION Impression: Successful CT-guided drain placement in a hepatic fluidcollection. Plan/disposition: 1) To Angio recovery room, may discharge to floor when meets criteria. 2) Forward flush every 12 hours with 3-5 mL of normal saline. Recordoutputs daily. 3) Patient to return in 4 weeks for fluoroscopic drain check. Sap Data Architect(s): Resident/Fellow: Johan Hernandez M.D. Attending: Terrance Gunter [...] number below. Electronically signed by: Terrance Gunter, [facility]([phone]), at 09/02/2019 4:02 PM Terrance Santana MD IMG CT ORDERABLES * (ABNORMAL) Anaerobic Culture (09/02/2019 1:00 PM EDT) Anaerobic Culture Moderate Clostridium species, not C perfringens Moderate Bacteroides fragilis Group Moderate Peptostreptococcus species (A) [facility] Organism Clostridium species, not C perfringens(A) [facility] Organism Bacteroides fragilis Group(A) [facility] Organism Peptostreptococcus species(A) [facility] Specimen from abdominal cavity (specimen) 09/02/2019 1:00 PM EDT 09/02/2019 1:33 PM EDT Comment:CT GUIDED LIVER ABSC ESS DRAIN Narrative Resulting Agency Comment Spec In Lab Terrance Santana MD MICROBIOLOGY - GENER AL ORDERABLES Performing Organization Address City/State/[facility] Co de Phone Number [facility] [place] [address] * (ABNORMAL) Body Fluid Culture, Aerobic (09/02/2019 1:00 PM EDT) Body Fluid Culture Few Actinomyces species(A) [facility] Gram Stain Many Neutrophils seen Many Gram Positive Cocci seen Few Gram Negative Rods seen Rare Gram Positive Rods seen (A) [facility] Organism Actinomyces species(A) [facility] Organism Gram Positive Cocci(A) [facility] Organism Gram Negative Rods(A) [facility] Organism Gram Positive Rods(A) [facility] Specimen from abdominal cavity (specimen) 09/02/2019 1:00 PM EDT 09/02/2019 1:33 PM EDT Comment:CT GUIDED LIVER ABSC ESS DRAIN Narrative Resulting Agency Comment Spec In Lab Terrance Santana MD MICROBIOLOGY - GENER AL ORDERABLES [facility] [place] [address] * COVID-19 PCR (09/02/2019 1:41 AM EDT) SARS-CoV-2 RNA (Rapid) Not Detected Not Detected [facility] Comment: This result should be interpreted [...] using the Simplexa COVID-19 Direct Assay by [employer] as authorized by the FDA issued Emergency [...] Department of Pathology and Laboratory Medicine at [facility], certified under the Clinical Laboratory Improvement Amendments [...] Information for Healthcare Professionals (https://www.cdc.gov/coronavirus/2019-ncov/hcp/index.html). SARS-CoV-2 Source [employer] [facility] Nasopharyngeal swab (specimen) 09/02/2019 1:41 AM EDT 09/02/2019 2:13 AM EDT Comment:Symptoms->Surveillan ce Narrative Resulting Agency Comment Spec In Lab Terrance Meade MD MICROBIOLOGY - GEN ERAL ORDERABLES Performing Organization Address [facility]/ZIP Co de Phone Number [facility] [place] [address] * (ABNORMAL) Urinalysis Microscopic Exam (09/01/2019 11:33 PM EDT) RBC, Urine 5(H) 0 - 4 /HPF [facility] WBC, Urine 1 0 - 5 /HPF [facility] Squamous Epithelial Cells Raw Data, Urine 1 <=4 /HPF [facility] Hyaline Casts, Urine 3(H) 0 - 2 /LPF [facility] Urine specimen obtained by clean catch procedure (specimen) 09/01/2019 11:33 PM EDT 09/01/2019 11:43 PM EDT Narrative Resulting Agency Comment Spec In Lab Ministerio Kline MD URINE ORDERABLES Performing Organization Address [facility]/ZIP Co de Phone Number [facility] [place] [address] * (ABNORMAL) Urinalysis with reflex Culture (09/01/2019 11:33 PM EDT) Glucose, Urine Dipstick Negative Negative mg/dL [facility] Protein, Urine Dipstick 30(A) Negative mg/dL [facility] Bilirubin, Urine Dipstick Negative Negative mg/dL [facility] Comment: Clinical correlation required for positive Urine Bilirubin results as false positive may occur with some drugs and drug related products. If a false positive is suspected a serum total bilirubin should be considered if clinically indicated. Urobilinogen, Urine Dipstick Normal Normal mg/dL [facility] pH, Urn (dipstick) 5.0 5.0 - 8.0 [facility] Blood, Urine Dipstick Trace(A) Negative mg/dL [facility] Ketone, Urine Dipstick Trace(A) Negative mg/dL [facility] Nitrite, Urine Dipstick Negative Negative [facility] Leukocytes, Urine Dipstick Negative Negative [facility] Appearance, Urine Dipstick Clear Clear [facility] Specific [place] Urine Automated >=1.030(A) 1.006 - 1.030 [facility] Color, Urine Dipstick Yellow Yellow [facility] Reflex to Culture No [facility] Urine specimen obtained by clean catch procedure (specimen) 09/01/2019 11:33 PM EDT 09/01/2019 11:43 PM EDT Narrative Resulting Agency Comment Spec In Lab Sebastian Chappell MD URINE ORDERABLES [facility] [place] [address] * (ABNORMAL) BLOOD GAS 2 VENOUS (09/01/2019 10:18 PM EDT) pH, Venous 7.45(H) 7.32 - 7.42 [facility] PCO2, Venous 42 41 - 51 mmHg [facility] PO2, Venous 51(H) 25 - 40 mmHg [facility] Bicarbonate, Venous 28.1 mmol/L [facility] Base Excess, Venous 4.0 mmol/L [facility] Hgb Blood Gas 13.3 11.7 - 15.5 gm/dL [facility] Oxyhemoglobin, Venous 85.5 % [facility] Carboxyhemoglob in, Venous 0.1 % [facility] Comment: Nonsmokers: 0.5-1.5% COHB Smokers: Variable, but usually less than 10% Toxic: 20-30% COHB Lethal: Greater than 60% COHB Methemoglobin, Venous 0.4 <=1.5 % [facility] Na Whole Blood 133(L) 135 - 145 mmol/L [facility] K Whole Blood 4.1 3.5 - 5.0 mmol/L [facility] Comment: Please note: Patients with WBC >100,000 may have falsely elevated Potassium levels. Contact the Clinical Chemistry Laboratory if there are any questions. ICa Whole Blood 1.17 1.15 - 1.33 mmol/L [facility] Comment: Note: ??Total bilirubin higher than 20 mg/dL may lead to falsely low ionized calcium. CL Whole Blood 97(L) 98 - 107 mmol/L [facility] Gluc Whole Bld 108 65 - 199 mg/dL [facility] Comment:Diabetes: >=200 mg/d L plus symptoms Lactate WB 1.4 0.5 - 2.2 mmol/L [facility] Blood Gas Source Venous [facility] Blood specimen (specimen) 09/01/2019 10:18 PM EDT 09/01/2019 10:18 PM EDT Amrik Zapata MD POINT OF CARE LIDIA T ORDERABLES [facility] [place] [address] * Scan, Peripheral Blood (09/01/2019 10:08 PM EDT) Plat estimate Normal [facility] RBC Morphology Normal [facility] Blood specimen (specimen) 09/01/2019 10:08 PM EDT 09/01/2019 10:18 PM EDT Narrative Resulting Agency Comment Spec In Lab Ministerio Kline MD HEMATOLOGY ORDERABLE S [facility] [place] [address] * Gold Tube HOLD (09/01/2019 10:08 PM EDT) Gold Hold Sample in lab. [facility] Blood specimen (specimen) Venous Draw / Unknown 09/01/2019 10:08 PM EDT 09/01/2019 10:19 PM EDT Ministerio Kline MD CHEMISTRY ORDERABLES Performing Organization Address City/[facility] [facility] Co de Phone Number [facility] [place] [address] * (ABNORMAL) Differential, Automated (09/01/2019 10:08 PM EDT) Neutrophil % 59.8 % [facility] Neutrophil Absolute 3.26 1.70 - 6.10 x10(3)/mc L [facility] Lymph % 17.9 % [facility] Lymphocytes Abs 1.0 0.9 - 3.2 x10(3)/mc L [facility] Monocyte % 14.8 % [facility] Monocyte Abs 0.8 0.3 - 0.9 x10(3)/mc L [facility] Eos % 0.0 % [facility] Eosinophils Abs 0.0 0.0 - 0.4 x10(3)/mc L [facility] Basophil % 0.4 % [facility] Baso Absolute 0.0 0.0 - 0.1 x10(3)/mc L [facility] Immature Gran % 7.10 % [facility] Comment: Immature granulocytes(IG's)percentage and absolute count will include metamyelocytes, myelocytes, and promyelocytes. Blood smears from CBCs yielding IG's will be scanned manually for concordance. If this scan disagrees with the automated IG or if promyelocytes are noted, a manual differential will be performed. Immature Gran Absolute 0.39(H) 0.00 - 0.04 x10(3)/mc L [facility] Blood specimen (specimen) 09/01/2019 10:08 PM EDT 09/01/2019 10:18 PM EDT Narrative Resulting Agency Comment Spec In Lab Ministerio Kline MD HEMATOLOGY ORDERABLE S [facility] [place] [address] * (ABNORMAL) Hemogram (09/01/2019 10:08 PM EDT) White Blood Cell 5.5 4.0 - 9.5 x10(3)/mc L [facility] Red Blood Cell 4.02 4.00 - 5.21 x10(6)/mc L [facility] Hemoglobin 11.2(L) 11.7 - 15.5 gm/dL [facility] Hematocrit 35.4(L) 35.7 - 45.8 % [facility] Mean Cell Volume 88.1 82.6 - 94.4 fL [facility] Mean Cell Hemoglobin 27.9 27.1 - 32.0 pg [facility] Mean Cell Hemoglobin Concentration 31.6(L) 31.7 - 35.0 gm/dL [facility] Platelet 308 145 - 357 x10(3)/mc L [facility] RDW Standard Deviation 45.1 37.0 - 46.0 fL [facility] RDW coefficient of variation 13.9 11.5 - 14.1 % [facility] Mean Platelet Volume 9.8 7.6 - 12.9 fL [facility] NRBC% auto 0.0 % [facility] NRBC Absolute 0.000 0.000 - 0.000 x10(3)/mc L [facility] Blood specimen (specimen) 09/01/2019 10:08 PM EDT 09/01/2019 10:18 PM EDT Narrative Resulting Agency Comment Spec In Lab Ministerio Kline MD HEMATOLOGY ORDERABLE S Performing Organization Address City/[facility]/ZIP Co de Phone Number [facility] [place] [address] * APTT (09/01/2019 10:08 PM EDT) Partial Thromboplastin Time 31 25 - 37 sec [facility] Comment: The PTT is NOT appropriate for heparin monitoring. Use the Anti-Xa level for heparin monitoring (HEP UFH) or LMWH monitoring (HEP LMW). A PTT less than 37 seconds generally indicates adequate hemostasis. Blood specimen (specimen) 09/01/2019 10:08 PM EDT 09/01/2019 10:18 PM EDT Narrative Resulting Agency Comment Spec In Lab Sebastian Chappell MD HEMATOLOGY ORDERABLE S Performing Organization Address [facility] Co de Phone Number [facility] [place] [address] * Blood culture (09/01/2019 10:08 PM EDT) Blood Culture No growth at 5 days. [facility] Blood specimen (specimen) 09/01/2019 10:08 PM EDT 09/01/2019 10:29 PM EDT Comment:LFA Narrative Resulting Agency Comment Spec In Lab Sebastian Chappell MD MICROBIOLOGY - BLOOD ORDERABLES Performing Organization Address [facility] Co de Phone Number [facility] [place] [address] * Blood culture (09/01/2019 10:08 PM EDT) Blood Culture No growth at 5 days. [facility] Blood specimen (specimen) 09/01/2019 10:08 PM EDT 09/01/2019 10:28 PM EDT Comment:LAC Narrative Resulting Agency Comment Spec In Lab Sebastian Chappell MD MICROBIOLOGY - BLOOD ORDERABLES Performing Organization Address [facility]/ZIP Co de Phone Number [facility] [place] [address] * (ABNORMAL) Prothrombin Time (09/01/2019 10:08 PM EDT) Prothrombin Time 13.6(H) 9.4 - 12.5 sec [facility] International Normalization Ratio 1.2 [facility] Comment: An INR <2.0 indicates adequate [...] MD HEMATOLOGY ORDERABLE S Performing Organization Address [facility] Co de Phone Number [facility] [place] [address] * Lipase (09/01/2019 10:08 PM EDT) Lipase 30 0 - 60 unit/L [facility] Blood specimen (specimen) 09/01/2019 10:08 PM EDT 09/01/2019 10:18 PM EDT Narrative Resulting Agency Comment Spec In Lab Sebastian Chappell MD CHEMISTRY ORDERABLES Performing Organization Address [facility]/ZIP Co de Phone Number [facility] [place] [address] * (ABNORMAL) Hepatic Function Panel (09/01/2019 10:08 PM EDT) [facility] Protein, Total 7.3 6.1 - 8.0 gm/dL [facility] Albumin 3.5 3.2 - 5.2 gm/dL [facility] Aspartate Aminotransferase 25 0 - 30 unit/L [facility] Alanine Aminotransferase 44(H) 0 - 30 unit/L [facility] Alkaline Phosphatase 112(H) 35 - 105 unit/L [facility] Bilirubin, Total 0.3 0.2 - 1.3 mg/dL [facility] Bilirubin, Direct 0.1 0.0 - 0.3 mg/dL [facility] Blood specimen (specimen) 09/01/2019 10:08 PM EDT 09/01/2019 10:18 PM EDT Narrative Resulting Agency Comment Spec In Lab Sebastian Chappell MD CHEMISTRY ORDERABLES Performing Organization Address City/State/[facility] Co de Phone Number [facility] [place] [phone] * (ABNORMAL) Basic Metabolic Panel (non-fasting) (09/01/2019 10:08 PM EDT) [facility] Glucose 117 65 - 199 mg/dL [facility] Comment:Diabetes: >=200 mg/d L plus symptoms Blood Urea Nitrogen 10 8 - 18 mg/dL [facility] Creatinine 0.67(L) 0.70 - 1.20 mg/dL [facility] Sodium 134(L) 135 - 145 mmol/L [facility] Potassium 4.0 3.5 - 5.0 mmol/L [facility] Comment: Please note: ??Patients with WBC >100,000 may have falsely elevated Potassium levels. ??For accurate Potassium quantification in these patients send serum separator tube (gold top) for subsequent determinations. ??Contact the Clinical Chemistry Laboratory if there are any questions. Chloride 94(L) 98 - 107 mmol/L [facility] Carbon Dioxide 27 22 - 31 mmol/L [facility] Anion Gap 13 5 - 15 mmol/L [facility] Calcium 8.8 8.5 - 10.5 mg/dL [facility] Est Glomerular Filtration Rate 91 >=60 mL/min/1. 73 m?? [facility] Comment: The eGFR was calculated using the CKD-EPI equation. As with all creatinine based estimates of kidney function, eGFR values calculated with the CKD-EPI equation are not accurate in patients with acute kidney failure, extremes of body mass or the acutely ill. [email or web address] eGFR 105 >=60 mL/min/1. 73 m?? [facility] Comment: The eGFR was calculated using the CKD-EPI equation. As with all creatinine based estimates of kidney function, eGFR values calculated with the CKD-EPI equation are not accurate in patients with acute kidney failure, extremes of body mass or the acutely ill. [email or web address] Blood specimen (specimen) 09/01/2019 10:08 PM EDT 09/01/2019 10:18 PM EDT Narrative Resulting Agency Comment Spec In Lab Sebastian Chappell MD CHEMISTRY ORDERABLES Performing Organization Address [facility] Co de Phone Number [facility] [place] [address] * Film Library- Storage Only CT Abdomen & Pelvis (09/01/2019 7:57 PM EDT) Narrative [facility] - 09/01/2019 7:57 PM EDT This exam is auto-finalizing. It's purpose is for storage only. 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 Given 09/07/2019 2:09 PM EDT 500 mg Given 09/07/2019 8:38 AM EDT 500 mg Given 09/06/2019 8:46 PM EDT 500 mg pantoprazole EC (Protonix) tablet 20 mg 20 mg, Oral, DAILY, First dose on Sat09/02/19 at 0900, Until Discontinued, DO NOT CRUSH OR OPEN Given 09/07/2019 8:38 AM EDT 20 mg Given 09/06/2019 8:54 AM EDT 20 mg Given 09/05/2019 9:17 AM EDT 20 mg polyethylene glycoL (Miralax) packet 17 g 17 g, Oral, DAILY PRN, Starting on 09/05/19 at 1814, Until 09/07/19 at 1923, Constipation, Routine predniSONE (Deltasone) tablet 20 mg 20 mg, Oral, DAILY, First dose on 6/24/20 at 0900, Until Discontinued, Routine Given 09/07/2019 9:04 AM EDT 20 mg Given 09/06/2019 10:57 AM EDT 20 mg Given 09/05/2019 9:17 AM EDT 20 mg sodium chloride 0.9 % (flush) flush 3-5 mL 3-5 mL, Intercatheter, EVERY 12 HOURS SCHEDULED (2 times per day), First dose on Sat09/03/19 at 1315, Until Discontinued, Forward flush every [...] Antonia Hitchcock RN)1317 (Stopped - Provider: Germaine Rivera RN)1647 (New Bag - Provider: Germaine Rivera RN)2047 (Stopped - Provider: Terrance Enciso RN) 0107 (New Bag - Provider: Terrance P Argiro, RN)0507 (Stopped - Provider: Terrance Enciso RN)0854 (New Bag - Provider: Germaine Rivera RN)1254 (Stopped - Provider: Germaine Rivera RN) predniSONE (Deltasone) tablet 20 mg 20 mg, Oral, DAILY, First dose on Sat09/02/19 at 0900, Until Discontinued, Routine 0917 (Given - Provider: Maria Antonia Hitchcock RN) 1057 (Given - Provider: Germaine Rivera RN) 0904 (Given - Provider: Germaine Rivera RN) sodium chloride 0.9 % (flush) flush 3-5 mL 3-5 mL, Intercatheter, EVERY 12 HOURS SCHEDULED (2 times per day), First dose on Sat09/03/19 at 1315, Until Discontinued, Forward flush every 12 hours with 3-5 mL of normal saline, Routine 0918 (Given - Provider: Maria Antonia Hitchcock RN)2118 (Given - Provider: Terrance Enciso RN) 0855 (Given - Provider: Germaine Rivera RN)204 (Given - Provider: Kyrie Camilo RN) 0900 (Given - Provider: Germaine Rivera RN) sodium chloride 0.9 % (flush) flush 5 mL 5 mL, Intravenous, 2 TIMES DAILY, First dose on Sat09/02/19 at 0900, Until Discontinued, Routine 0918 (Given - Provider: Maria Antonia Hitchcock RN)2118 (Given - Provider: Terrance Enciso RN) 0855 (Given - Provider: Germaine Rivera RN)2046 (Given - Provider: Kyrie Camilo RN) 0900 [...] mg., Routine 1415 (Given - Provider: Germaine Rivera, DAYANA) lidocaine (XYLOCAINE) 10 mg/mL (1 %) injection [...] PRN, Starting on 09/05/19 at 1814, Until Sat09/07/19 at 1923, Constipation, [...] Intravenous, EVERY 8 HOURS PRN, Starting on 09/02/19 at 0240, Until Lulu 09/03/19 at 0926, Nausea, Start with 4mg and if ineffective in 30 minutes, give an additional 4mg If multiple antiemetics are ordered, give ondansetron first. documented in this encounter Care Teams Center Medical Specialist Relationship Specialty Start Date End Date Julia Chatterjee MD [facility] [address] [place] [address] PCP - General 01/31/10 documented as of this encounter
--- OUTSIDE RECORDS SUMMARY | 2023-10-22 02:50 | XMS_ITS | Encounter Summary ---
Author Organization [facility] Address [facility] [place] [address] Care Team Providers Care Copying Machine Repairer Name Role Phone Julia Chatterjee MD Primary Care Provider [phone] Encounter Details Date Type Department Care Team (Late st Contact Info) Description 08/26/2019 8:00 AM EDT Office Visit Hematology/Oncology at [address] [phone] Radha Cooper, JAYLEN [facility] [address] [place] [address] Large granular lymphocyte disorder Social History Tobacco Use Types Packs/Day Years [...] Sign Reading Time Taken Comments Blood Pressure 113/62 08/26/2019 8:09 AM EDT Pulse 78 08/26/2019 8:09 AM EDT Temperature 37.1 ??C (98.7 ??F) 08/26/2019 8:09 AM ED T Respiratory Rate 16 08/26/2019 8:09 AM EDT Oxygen Saturation 98% 08/26/2019 8:09 AM EDT Inhaled Oxygen Concentration - - Weight 63 kg (139 lb) 08/26/2019 8:09 AM EDT Height - - Body Mass Index 26.26 10/23/2017 1:03 PM EDT documented in this encounter Progress Notes * Radha Cooper, RECLAMATION FURNACE OPERATOR - 08/26/2019 8:00 AM EDT Subjective: Patient ID: Leti Parry is a 68 y.o. female here for f/u of LGL/chronic neutropenia Patient Active Problem List Diagnosis ??? Ulcerative colitis Diagnosed around 2011. Worked with marine architect with resolution of symptoms food based supplements [...] flow ) are being pursued at the [facility]. Should ??cytopenias persist , it may [...] LGL but we cannot say with certainty HPI Leti had been doing very well up until a few weeks ago when she had an exacerbation of her colitis. She ended up hospitalized for 5 days. She originally had an acceptable neutrophil count - however this did drop during her hospitalization and she was given a single dose of neupogen. She responded well to this. Given on 08/14. Today she is feeling better - she is still having rectal pain - she was on magnesium and had diarrhea associated with this. She has since discontinued this and her diarrhea has resolved, but rectum remains inflamed. She is using witch lauren pads and desitan. She otherwise has had no other infections. She was living in [facility] working on her son's home. 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 She has noticed no lumps or bumps, her energy has returned - but still up and down a bit. She remains on antibiotics for another 5 days. She is also still on prednisone taper - current dose 30mg . Review of Systems Constitutional: Negative. HENT: Negative. Eyes: Negative. Respiratory: Negative. Negative for cough and shortness of breath. Cardiovascular: Negative. Negative for chest pain, palpitations and leg swelling. Gastrointestinal: Negative. Negative for constipation, diarrhea, nausea and vomiting. Genitourinary: Negative. Musculoskeletal: Negative. Skin: Negative. Neurological: Negative. Negative for weakness and numbness. Psychiatric/Behavioral: Negative. Objective: Physical Exam Recent Results (from the past 72 hour(s)) CBC (with Diff) Result Value Ref Range WBC 4.96 Hemoglobin 12.4 Hematocrit 39.0 Platelets 238 Neutr Abs (ANC) 3.32 Comprehensive metabolic panel (non-fasting) Result Value Ref Range BUN 14 Creatinine 0.87 Sodium 131 Potassium 3.6 BP 113/62 (Patient Position: Sitting) Pulse 78 Temp 37.1 ??C (98.7 ??F) (Oral) Resp 16 Wt 63 kg (139 lb) SpO2 98% BMI 26.26 kg/m?? Assessment and Plan: 1. Leukopenia most c/w LGL - Leti had been doing very well until a few weeks ago when she had an episode of fever, nausea and vomitting with subsequent diagnosis of colitis and e-coli bacteremia. With this infection she originally bumped her ANC on her own, which is often a phenomenon we see inpatients with chronic neutropenia. She then did drop her ANC below 1000 and was given a single doseof neupogen last week. She did require a 5 day hospital admission. She remains on antibiotics and is recovering well. Prednisone taper per GI. At this point it is difficult to know if this infection is an isolated incident or the beginning ofa trend of infections. If she has recurrent infections it would be prudent to either symptomatically treat her neutropenia with neupogen or treat her underlying LGL - likely with oral weekly MTX. At this time we will monitor more norm. She would like. to avoid therapy if she is not having infections. She does have GI follow up and will likely be having a colo in the next few months. We would recommend a dose of neupogen 1-2 days prior to procedure. Rectal pain s/p diarrhea - Htcz cream to rectum ?? We also reviewed importance of being seen immediately for any furhter active s/sx of infections including fevers. She has been very diligent about this with this recent infection. ?? Leti Parry will return to clinic in 8 weeks. she will call before then if any concerns or changes in status. documented in this encounter Plan of Treatment Upcoming Encounters Date Type Department Care Team (Late st Contact Info) Description 04/15/2024 1:00 PM EST Office Visit Hematology/Oncology at [address] [phone] Lee Ann Jay MD [facility] [place] [address] Leti Anderson APRN [facility] [place] [address] documented as of this encounter Procedures Procedure Name Priority Date/Time Associated Diagnosis Comments CBC (WITH DIFF) Routine 08/25/2019 COMPREHENSIVE METABOLIC PANEL Routine 08/25/2019 documented in this encounter Results * Comprehensive metabolic panel (non-fasting) (08/25/2019) Blood Urea Nitrogen 14 Creatinine 0.87 Sodium 131 Potassium 3.6 Blood specimen (specimen) 08/25/2019 Radha Cooper APRN CHEMISTRY ORDERABLES * CBC (with Diff) (08/25/2019) White Blood Cell 4.96 Hemoglobin 12.4 Hematocrit 39.0 Platelet 238 ANC 3.32 Blood specimen (specimen) 08/25/2019 Radha Cooper APRN HEMATOLOGY ORDERABLE S documented in this encounter Visit Diagnoses Diagnosis 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
--- OUTSIDE RECORDS SUMMARY | 2023-10-22 02:50 | XMS_ITS | Encounter Summary ---
Author Organization [facility] Address [facility] [place] [address] Care Team Providers Care Admittance Attendant Name Role Phone Julia Chatterjee MD Primary Care Provider [phone] Encounter Details Date Type Department Care Team (Late st Contact Info) Description 08/27/2018 9:00 AM EDT Office Visit Hematology/Oncology at [address] [phone] Lee Ann Jay MD [facility] DR HEM[place] [address] Radha Cooper, JAYLEN [facility] [address] [place] [address] Neutropenia, unspecified type Social History Tobacco Use [...] Sign Reading Time Taken Comments Blood Pressure 136/72 08/27/2018 9:05 AM EDT Pulse 63 08/27/2018 9:05 AM EDT Temperature 37.4 ??C (99.3 ??F) 08/27/2018 9:05 AM ED T Respiratory Rate 18 08/27/2018 9:05 AM EDT Oxygen Saturation 99% 08/27/2018 9:05 AM EDT Inhaled Oxygen Concentration - - Weight 65.6 kg (144 lb 9.6 oz) 08/27/2018 9:05 A M EDT Height - - Body Mass Index 27.32 10/23/2017 1:03 PM EDT documented in this encounter Progress Notes * Radha Cooper Xavi, STAFF PHYSICAL THERAPY ASSISTANT - 08/27/2018 9:00 AM EDT Subjective: Patient ID: Leti Parry is a 67 y.o. 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 Ulcerative colitis Diagnosed around 2011. Worked with business development engineer with resolution of symptoms food based supplements [...] flow ) are being pursued at the [place] [facility]. Should ??cytopenias persist , it may [...] we cannot say with certainty HPI Leti is doing well - she had a nice trip to [facility] to visit her son and grandchildren - they are working on a construction project together. She is looking forward to a bike trip with her girlfriendsthis week. She has been active and healthy. No infections. No fevers or chills. She did get her tetnus booster last year and did feel systemic effects from this. She did not get the rest of her immuizations. She does have PCP follow up coming up. She also has not yet had her repeat colo which she is due for. She has no GI symptoms. Review of Systems Constitutional: Negative. HENT: Negative. Eyes: Negative. Respiratory: Negative. Negative for cough and shortness of breath. Cardiovascular: Negative. Negative for chest pain, palpitations and leg swelling. Gastrointestinal: Negative. Negative for constipation, diarrhea, nausea and vomiting. Genitourinary: Negative. Musculoskeletal: Negative. Skin: Negative. Neurological: Negative. Negative for weakness and numbness. Psychiatric/Behavioral: Negative. Objective: Physical Exam Constitutional: She is oriented to person, place, and time. She appears well- developed and well-nourished. No distress. HENT: Mouth/Throat: Oropharynx is clear and moist. No oropharyngeal exudate. Eyes: Pupils are equal, round, and reactive to light. Conjunctivae are normal. Neck: Normal range of motion. Neck supple. Cardiovascular: Normal rate, regular rhythm and normal heart sounds. No murmur heard. Pulmonary/Chest: Effort normal and breath sounds normal. She has no wheezes. She has no rales. Abdominal: Soft. Bowel sounds are normal. She exhibits no mass. There is no rebound and no guarding. Musculoskeletal: Normal range of motion. She exhibits no edema. Lymphadenopathy: She has no cervical adenopathy. She has no axillary adenopathy. Right: No inguinal and no supraclavicular adenopathy present. Left: No inguinal and no supraclavicular adenopathy present. Neurological: She is alert and oriented to person, place, and time. Skin: Skin is warm and dry. Psychiatric: She has a normal mood and affect. Lab Results Component Value Date WBC 1.91 08/07/2018 HGB 13.5 08/07/2018 HCT 42.3 08/07/2018 MCV 89.9 01/08/2017 PLATELET 196 08/07/2018 BP 136/72 (Patient Position: Sitting) Pulse 63 Temp 37.4 ??C (99.3 ??F) (Oral) Resp 18 Wt 65.6 kg (144 lb 9.6 oz) SpO2 99% BMI 27.32 kg/m?? Assessment and Plan: 1. Leukopenia most c/w LGL - Leti continues to do very well with no infections or antibiotic use. We did again review neulasta if she has any invasive procedures like a colonoscopy. We would ideallylike to do a tet dose first to ensure response and then repeat dose 1-2 days prior to procedure. We also reviewed importance of being seen immediately for any active s/sx of infections including fevers. We discuss immunizations - pneumococcal and infuenza would be especially important for her to ensure she is UTD on. She will discuss with PCP at upcoming visit. Leti Parry will return to clinic in 1 year - she is aware to call before then if any infectionsor procedures. documented in this encounter Plan of Treatment Upcoming Encounters Date Type Department Care Team (Late st Contact Info) Description 04/15/2024 1:00 PM EST Office Visit Hematology/Oncology at [address] [phone] Lee Ann Jay MD [facility] HEMATOLOGY [place] [address] Leti Anderson APRN [facility] [place] [address] documented as of this encounter Procedures Procedure Name Priority Date/Time Associated Diagnosis Comments CBC (WITH DIFF) Routine 08/07/2018 documented in this encounter Results * CBC (with Diff) (08/07/2018) White Blood Cell 1.91 Hemoglobin 13.5 Hematocrit 42.3 Platelet 196 ANC 0.27 Blood specimen (specimen) 08/07/2018 Radha Cooper STAFF PHYSICAL THERAPY ASSISTANT HEMATOLOGY ORDERABLE S documented in this encounter Visit Diagnoses Diagnosis Neutropenia, unspecified type documented in this encounter Care Teams Admittance Attendant Relationship Specialty Start Date End Date Julia Chatterjee MD [address] [place] [address] PCP - General 01/31/10 documented as of this encounter
--- OUTSIDE RECORDS SUMMARY | 2023-10-22 02:50 | XMS_ITS | Encounter Summary ---
Author Organization [facility] [place] [address] Care Team Providers Care Quality Inspector Name Role Phone Julia Chatterjee MD Primary Care Provider [phone] Reason for Visit * Reason Onset Date Comments Follow-up 08/12/2019 Pt in hospital Encounter Details Date Type Department Care Team (Late st Contact Info) Description 08/12/2019 Telephone Hematology/Oncology at [address] [phone] Vicky Madrigal, RN Follow-up (Pt in hospital) Social History Tobacco Use Types Packs/Day Years [...] Miscellaneous Notes * Telephone Encounter - Vicky Madrigal, RN - 08/12/2019 5:56 PM EDT Called and spoke with Tamir regarding Leti Parry. She went to [facility] with fevers, they are treating her for colitis and she is getting ABT. She will have a sigmoidoscopy tomorrow. Will update provider via this note. ----- Message from Ye Mckenzie sent at 08/12/2019 2:47 PM EDT ----- Regarding: Pt wanted to give update Tamir, Leti's called and said that she wanted to give an update. She is currently up at [facility]. Her WBC is 2.8 and they think she has colitis and are giving her antibiotics. He said that you can call him with any questions: [phone]. Thanks, Ye documented in this encounter Plan of Treatment Upcoming Encounters Date Type Department Care Team (Late st Contact Info) Description 04/15/2024 1:00 PM EST Office Visit Hematology/Oncology at [address] [phone] Lee Ann Jay MD [facility] [address] [place] [address] Leti Anderson, COUNTERINTELLIGENCE SPECIALIST [facility] [address] [place] [address] documented as of this encounter Visit Diagnoses Not on filedocumented in this encounter Care Teams Quality Inspector Relationship Specialty Start Date End Date Julia Chatterjee MD [facility] [address] [place] [address] PCP - General 01/31/10 documented as of this encounter
--- OUTSIDE RECORDS SUMMARY | 2023-10-22 02:50 | XMS_ITS | Encounter Summary ---
Author Organization [facility] [place] [address] Care Team Providers Care Data Officer Name Role Phone Julia Chatterjee MD Primary Care Provider [phone] Encounter Details Date Type Department Care Team (Latest Contact Info) Description 02/28/2017 9:55 AM EST Laboratory Appointment Lab [address] [id number] Large granular lymphocyte disorder; Neutropenia, unspecified type Social History Tobacco Use [...] PM EST Office Visit Hematology/Oncology at [address] [phone] Lee Ann Jay MD [facility] DR HEMATOLOGY [place] [address] Leti Anderson, MANAGER CRITICAL CARE UNIT [facility] DR HEMATOLOGY [place] [address] documented as of this encounter Procedures Procedure Name Priority Date/Time Associated Diagnosis Comments MISCELLANEOUS LAB REQUEST Routine 02/28/2017 10:01 AM EST Large granular lymphocyte disorder Neutropenia, unspecified type MISCELLANEOUS LAB REQUEST Routine 02/28/2017 10:01 AM EST Large granular lymphocyte disorder Neutropenia, unspecified type MISC SENDOUT Routine 02/28/2017 10:01 AM EST documented in this encounter Results * Misc Sendout (02/28/2017 10:01 AM EST) [facility] [place] See Note [facility] Comment: The ordered test is: STAT3 [employer], [address] [place] [address] [place] [address] See Scanned Report. Specimen of unknown material (specimen) Other / Unknown 02/28/2017 10:01 AM EST 03/01/2017 10:50 AM EST Lee Ann Jay MD LAB SEND OUT ORD ERABLES [facility] [place] [address] * Miscellaneous Lab request (02/28/2017 10:01 AM EST) Label Request received in lab. [facility] Blood specimen (specimen) 02/28/2017 10:01 AM EST 02/28/2017 10:13 AM EST Narrative Resulting Agency Comment Spec In Lab Lee Ann Jay MD LAB SEND OUT ORD ERABLES [facility] [place] [address] * Miscellaneous Lab request (02/28/2017 10:01 AM EST) Label Request received in lab. 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
--- OUTSIDE RECORDS SUMMARY | 2023-10-22 02:50 | XMS_ITS | Encounter Summary ---
Author Organization [facility] Address [facility] [place] [address] Care Team Providers Care Rubber Compounder Mixer Name Role Phone Julia Chatterjee MD Primary Care Provider [phone] Encounter Details Date Type Department Care Team (Late st Contact Info) Description 09/01/2019 [place] [phone] Yola Oliveros MD [facility] [place] [address] Social History Tobacco Use Types Packs/Day Years [...] encounter Miscellaneous Notes * Telephone Encounter - Yola Oliveros MD - 09/01/2019 6:19 PM EDT Received a message back today from Dr. Chatterjee and talked with her covering partner Dr. Cliff Collins. Pt with temps this AM back up over 102F. She has stopped antibiotics. I recommended that they obtain CT Abd/pelvis, which was done this afternoon at [facility] as an outpt. Per Dr. Collins, it showed a large obstructing abscess in the R lobe. In retrospect, I think there is perhaps start of R lobe abscess on 08/[address] CT[address]ked that the CT be pushed down to [facility] - though that has yet to occur. Talked with Ms. Parry by phone. She is very tired and weak, and her fever of 102.4F this AM did come down with does of Tylenol. No abd pain, N/V. 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 She agreed and will drive her down. Once we have the CT, can decide on possibility of drainage. She will need to restart abx. Discussed the case with our ED colleagues who will be expecting her this evening. documented in this encounter Plan of Treatment Upcoming Encounters Date Type Department Care Team (Late st Contact Info) Description 04/15/2024 1:00 PM EST Office Visit Hematology/Oncology at [address] [phone] Lee Ann Jay MD [facility] DR [place] [address] Leti Anderson APRN [facility] [address] [place] [address] documented as of this encounter Visit Diagnoses Not on filedocumented in this encounter Care Teams Rubber Compounder Mixer Relationship Specialty Start Date End Date Julia Chatterjee MD [address] [place] [address] PCP - General 01/31/10 documented as of this encounter
--- OUTSIDE RECORDS SUMMARY | 2023-10-22 02:50 | XMS_ITS | Encounter Summary ---
Author Organization [facility] Address [facility] [place] [address] Care Team Providers Care Office Coordinator Receptionist Name Role Phone Julia Chatterjee MD Primary Care Provider [phone] Reason for Visit * Reason Onset Date Comments Abnormal Lab 10/17/2017 Critical WBC Encounter Details Date Type Department Care Team (Late Contact Info) Description 10/17/2017 Telephone Hematology/Oncology at [address] [phone] Heidi Fraser RN Abnormal Lab (Critical WBC) Social History Tobacco Use Types Packs/Day Years [...] encounter Miscellaneous Notes * Telephone Encounter - Heidi Fraser RN - 10/17/2017 8:20 AM EDT Critical WBC 1.92 called from Izzy at [facility] lab. documented in this encounter Plan of Treatment Upcoming Encounters Date Type Department Care Team (Late Contact Info) Description 04/15/2024 1:00 PM EST Office Visit Hematology/Oncology at [address] [phone] Lee Ann Jay MD [facility] HEMATOLOGY [place] [address] Leti Anderson APRN [facility] DR HEMATOLOGY [place] [address] documented as of this encounter Visit Diagnoses Not on filedocumented in this encounter Care Teams Office Coordinator Receptionist Relationship Specialty Start Date End Date Julia Chatterjee MD [facility] [address] [address] PCP - General 01/31/10 documented as of this encounter
--- OUTSIDE RECORDS SUMMARY | 2023-10-22 02:50 | XMS_ITS | Encounter Summary ---
Author Organization [facility] Address [facility] [place] [address] Care Team Providers Care Automobile Repair Service Estimator Name Role Phone Julia Chatterjee MD Primary Care Provider [phone] Encounter Details Date Type Department Care Team (Late st Contact Info) Description 01/23/2017 12:30 PM EST Office Visit Hematology/Oncology at [address] [phone] Lee Ann Rodriguez MD [facility] [address] [place] [address] Large granular lymphocyte disorder; Neutropenia, unspecified type [...] Sign Reading Time Taken Comments Blood Pressure 134/77 01/23/2017 12:28 PM EST Pulse 64 01/23/2017 12:28 PM EST Temperature 36.9 ??C (98.4 ??F) 01/23/2017 12:[address] Respiratory Rate 16 01/23/2017 12:28 PM EST Oxygen Saturation 97% 01/23/2017 12:28 PM EST Inhaled Oxygen Concentration - - Weight 65.8 kg (145 lb) 01/23/2017 12:28 PM EST Height 160 cm (5' 2.99) 01/23/2017 12:28 PM EST Body Mass Index 25.69 01/23/2017 12:28 PM EST documented in this encounter Progress Notes * Lee Ann Rodriguez MD - 01/23/2017 12:30 PM EST Images from the original note were not included. Hematology/Oncology New Patient Note Patient ID: Leti Parry Requesting Provider: No att. providers found Primary Care Provider: Julia Chatterjee MD Patient Active Problem List Diagnosis ??? Ulcerative colitis Diagnosed around 2011. Worked with security supervisor with resolution of symptoms food based supplements [...] re-drawn Nov 2016 - Splenic imaging 8cm BMBx: DIAGNOSIS 1. Normocellular marrow with normal [...] flow ) are being pursued at the [facility]. Should ??cytopenias persist , it may [...] receptor gene rearrangements Myeloid sequencing for STAT3 pending. History of Present Illness: Ms. Parry is a 66 y.o. with pmhx of ? Ulcerative colitis- diet controlled. She states she was given this diagnosis during a colonoscopy 5 years ago. She states she is to get repeat colonoscopy this year. She states she has no UC symptoms. She states she has high gut bacteria burden- proteus mirabilis and diet changes have helped this. She otherwise has no frequent infections or infections that persist, no weight loss, no lymphadenopathy, good appetite. No infections since I last saw her. Feels well, good energy Her DINO was positive in Oct 2016. Leti returns today with her to discuss results of the bone marrow biopsy 01/2007 wbc 3.7 04/2007 WBC 3.9, hgb 14.4, plt 246 07/2011 wbc 4.4, hgb 13.4, plt 222 05/29/2016 wbc 1.81, hgb 13.4, plt 162 Neutrophils 12.9 Lymphocytes 66.5 [place] 19.3 Eosinophils 0.4 Basophils 0.0 Immature grans 0.9 Peripheral smear: many of he lymphocytes are large granular lymphocytes. b12 640 Folate 14 Review of Systems: Constitutional: No fevers/chills. Denies [...] ASPIRATION W/BX THROUGH SAME INCISION/SITE Right 01/08/2017 ([facility]) BONE MARROW ASP PERFORMED W/BX THRU BX INCISION (WRVU 0.16) performed by Lee Ann Rodriguez MD at [facility] ??? PRO BONE MARROW BX, NEEDLE/TROCAR Right 01/08/2017 ([facility]) BONE MARROW,BIOPSY (WRVU 1.37) performed by Lee Ann Rodriguez MD at [facility] ??? PRO COLONOSCOPY, BIOPSY 07/05/2011 COLONOSCOPY FLEXIBLE, WITH BX performed by MARY CASTRO at [facility] END[facility] ??? PRO COLONOSCOPY, REMV LESN, SNARE 07/05/2011 COLONOSCOPY, POLYPECTOMY, REMOVAL LESION BY SNARE performed by MARY CASTRO at [facility] Medications; Current Outpatient Prescriptions on File Prior to Visit Medication Sig Dispense Refill ??? ascorbic acid, vitamin C, (VITAMIN C) 500 mg Tablet Take 500 mg by mouth daily. ??? UNKNOWN TO PATIENT Take 1 tablet by mouth daily. Reported on 07/09/2016 Indications: Drenatrophinfor adrenal support ??? GLUCOSAMINE HCL/CHONDRO TRIVEDI A (GLUCOSAMINE-CHONDROITIN ORAL) ??? ERGOCALCIFEROL, VITAMIN D2, (VITAMIN D ORAL) Current Facility-Administered Medications on File Prior to Visit Medication Dose Route Frequency Provider Last Rate Last Dose ??? sodium chloride 0.9% with potassium chloride 20 mEq infusion 1,000 mL Intravenous Continuous Radha Cooper, MEDICAL COLLECTIONS SPECIALIST Allergies: Allergies Allergen Reactions ??? Benzalkonium Chloride Family History: Father- 87, healthy Mother- 83, healthy 4 brothers and 2 sisters all healthy Social History: Lives in [facility]. . 1 son 38 years old- healthy. 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 Likes to bike in [place] w/ her . Social History Substance Use Topics ??? Smoking status: Never Smoker ??? Smokeless tobacco: None ??? Alcohol use 1 shot of tequila few times a week Physical Examination Vitals: Temp: [36.9 ??C (98.4 ??F)] Heart Rate: [64] BP: (134)/(77) Resp: [16] SpO2: [97 %] General: Well appearing, in NAD Labs: date wbc anc hgb plt 07/09/16 2.1 0.64 13.8 211 08/03/16 2.65 0.71 13.7 199 10/25/16 2.53 0.510 13.6 181 DINO positive 01/08/17 2..0 0.21 13.3 183 BMBx done HEMEPATH: DIAGNOSIS 1. Normocellular marrow with normal [...] flow ) are being pursued at the [facility]. Should ??cytopenias persist , it may be [...] receptor gene rearrangement detected. Radiology: US at [facility] 11/2016. Liver 14.5 cm. Spleen 8cm. Assessment and Recommendations: 66 y.o. Healthy female who has been referred to us for leukopenia. She has had leukopenia since 2007 with normal hemoglobin and platelet. She has no symptoms- no increased frequency of infections. 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 We discussed with patient that the differential for this finding includes:Large granular lymphocytic (LGL) leukemia vs metabolic vs infectious vs cyclic neutropenia. Her recent vitamin labs are within normal limits. We discussed if she has LGL, we would likely not recommend any treatment and justmonitor her counts. If treatment was indicated then would start treatment with low dose methotrexate. She has been working with a security supervisor who started her on selenium and zinc. Counts are a bit higher so we will see. Surveillance Analyst has been helping her with bowel issues. These are better w/ diet adjustments. Diet changes have helped her UC and GI symptoms. She is due for a colonoscopy. This is in f/u to a work up for irrritable bowel syndrome. After her BMBX, We can try GCSF to see if it raises the ANC and would make it safe for colo. She would prefer not to do the colo now and we can post pone it a bit. It was a pleasure to see Leti and her in clinic today. She recently had a bone marrow biopsy which she states was comfortable. She comes in today to discuss results. 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 Stat 3 was recommended and as I can tell from the orders in the chart it looks like pathology has sent the bone marrow biopsy for myeloid sequencing and the stat 3 results should bedone on the bone marrow. If not we can draw it on peripheral blood. Explained the diagnosis of LGL and how it is often associated with autoimmune disorders. She [...] oral methotrexate which controls the disease nicely. She is due for colonoscopy. Therefore I would like to do a Neupogen challenge to be sure that we can temporarily increase the white count and ANC to keep her safe. She will have a CBC, an appointmentwith me, and a Neupogen shot. She will then have a CBC drawn second day to be sure she has had a response. Plan: ?? Plan challenge of GCSF at time of next appt to use prior to procedures, prn ?? Antigranulocyte ab -I do not see that this test was ever sent out. Given recent diagnosis of LGL, no longer necessary. ?? US at [facility] - listed above ?? BMBx - listed above ?? RTC Bakari with neupogen challenge ?? Will f/u on myeloid sequencing from BMBx - I have emailed Dr Roland to be sure the STAT3 mutation testing is in process. He confirmed that it was in process. If not we will send peripheral blood. Addendum 01/24/17: I heard back from our lab and STAT3 is not part of myeloid sequencing on the BMBX. I placed order at [facility] for blood draw and called pt to come to [facility] in the next 2-3 weeks to [facility] lab from 7-3pm to have the STAT3 drawn. I also alerted our lab re the request. The lab is checking with Tamir Mueller as to where the blood should be sent. I discussed all of the above with the patient and all of her questions were answered. Support and counseling given as appropriate. This note was written or modified using Collections voice recognition software. The final note was screened for mistakes. Please excuse any remaining errors. ?? documented in this encounter Miscellaneous Notes * Addendum Note - Lee Ann Rodriguez MD - 01/24/2017 5:40 PM ESTAddended by: LEE ANN RODRIGUEZ on: 01/24/2017 05:40 PM Modules accepted: Orders documented in this encounter Plan of Treatment Upcoming Encounters Date Type Department Care Team (Late st Contact Info) Description 04/15/2024 1:00 PM EST Office Visit Hematology/Oncology at [address] [phone] Lee Ann Rodriguez MD [facility] [address] [place] [address] Leti Anderson APRN [facility] [address] [place] [address] documented as of this encounter Results * Miscellaneous Lab request (02/28/2017 10:01 AM EST) Label Request received in lab. [facility] Blood specimen (specimen) 02/28/2017 10:01 AM EST 02/28/2017 10:13 AM EST Narrative Resulting Agency Comment Spec In Lab Lee Ann Rodriguez MD LAB SEND OUT ORD ERABLES [facility] [place] [address] * Miscellaneous Lab request (02/28/2017 10:01 AM EST) Label Request received in lab. 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
--- OUTSIDE RECORDS SUMMARY | 2023-10-22 02:50 | XMS_ITS | Encounter Summary ---
Author Organization [facility] [place] [address] Care Team Providers Care Padding Gluer Name Role Phone Julia Chatterjee MD Primary Care Provider [phone] Reason for Visit * Consultation (Urgent) - Specialty Diagnoses / Procedures Referred By Kimani t Referred To Contact Gastroenterology Diagnoses UC Procedures consult Hesham Dobson MD [facility] [place] [address] [facility] [address] [place] [address] Referral ID Status Reason Start Date Expiration Date V isits Requested Visits Authorized [id number] 08/13/2019 08/12/2020 1 1 Encounter Details Date Type Department Care Team (Latest Contact Info) Description 08/18/2019 11:00 AM EDT TH Visit (TeleHealth) [place] [phone] Yola Jenkins MD [facility] [place] [address] Other ulcerative colitis with complication Social History [...] of this encounter Progress Notes * Yola Jenkins MD - 08/18/2019 11:00 AM EDT GASTROENTEROLOGY TELEHEALTH PROGRAM - NEW PATIENT VISIT Chief Complaint: Leti Parry is a 68 y.o. patient referred for consultation by Dr. Chatterjee for theevaluation and management of recent colitis, E. coli bacteremia, in the setting of ulcerative colitis. History of Present Illness: 68 y.o. 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 History was obtained today from Ms. Parry and her as well as from a transfer center called dated August 12. I do not have the records from a recent hospitalization at [facility]. Ms. Parry was diagnosed with mild left-sided ulcerative colitis at the time of the screening colonoscopy in [address] Stu Nelson. He followed up with her in the office at the time. A short trial of Rowasa enemas did not make a difference, and she followed up with a local medical center representative using dietary supplements to maintain remission. She reports that her typical bowel habit tends somewhat towards constipation. She usually moves her bowels every day or 2 and occasionally will seesmall amounts of blood on toilet tissue. She has been taking magnesium for constipation for years. She works with a medical center representative who occasionally did a gut check that requires some supplements. However, symptoms change dramatically 8 days ago. On the day prior, she was feeling quite well busyaround the house, painting, and organizing. She awakened the following day, which was a Saturday, with an urge to move her bowels. She had 3 recurrent loose stools within a fairly short period of time that morning. Each was accompanied by pain at the rectum with defecation. That evening, she had somelow-grade fevers just under 100 ??F and felt generally fatigued with no energy. The following day, she spiked a temperature to 102.5 ??F and started to have bilious vomiting. [facility] had a CT scan that described inflammation within the colon, felt better with a cetaminophen and was discharged. By Saturday, she developed rigors and had persistent fever, so returned to the hospital and was admitted. She was discharged from the hospital just yesterday. She reports that she felt much better after admission when antibiotics were started. Solu-Medrol was also started. She does not recall having diarrhea or persistent vomiting after admission. The transfer center note describes some loose stools but no lucille diarrhea. She had a mild leukocytosis of 12,200, and after consultation with Dr. Jay's office, she received an injection of Neupogen in the hospital. Blood cultures grew E. coli, and, apparently based on the paperwork Ms. Parry read to me today, there is a question of gram-positive cocci in 1 bottle thought likely to be a contaminant. A sigmoidoscopy showed active colitis that looked like UC, but no further descriptors or biopsy results are available to me today. She was discharged yesterday on medications listed below. She is currently feeling woozy. When she awakens she feels well but then feels that her head is spinning and slightly lightheaded. She does not feel presyncopal. She is tolerating toast okay. Therehave been no fevers. No nausea and no vomiting. She is moving her bowels once per day for soft and barely formed stool without bleeding. There is no abdominal pain. Medications at discharge: Pantoprazole 20 mg qAM Ciprofloxacin 500 mg PO twice per day Prednisone 60 mg per day Magnesium oxide 400 mg twie per day Prior to hospitalization, she was taking Digestive enzymes, selenium, Zinc. Review of systems: 14-point review of systems reviewed and negative except as above. Medications: See above Allergies: is allergic to benzalkonium chloride. Past Medical History: # Left sided ulcerative colitis --dx 06/20 at time of screening colonoscopy, relatively Asx -- colonoscopy 06/20Diffuse mild inflammation was found in the recto-sigmoid colon secondary to inflammatory bowel disease. This was biopsied These findings are c/w mild UC --Path: Mildly to severely active chronic proctocolitis with focal erosion. The histologic featuresare suggestive of idiopathic inflammatorybowel disease. No dysplasia is seen. 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 Nov 2016 - US Splenic imaging 8cm ?? 01/08/17 BMBx: ?? DIAGNOSIS 1. Normocellular marrow with normal trilineage hematopoesis, with minor CD8+ T-cell ??interstitial infiltrate (5% of marrow) 2. Neutropenia, increased large granular lymphocytes, peripheral blood 3. NK clonality studies pending. ?? DISCUSSION The findings are suspicious ??but not diagnostic for ?Large Granular lymphocytic ??Leukemia . The T lymphocytes are CD8 dominant, but do not show aberrancy by flow ??analysis. NK cells are not interrogated for clonality by our studies and clonality ??studies ( KIR assessment by flow ) are being pursued at the [facility]. Should ??cytopenias persist , it may be prudent to send out peripheral blood for ??STAT3 ??mutation analysis (please contact the lab for further information) ??TCR gene ??rearrangement studies are ongoing. Separate report to follow. ? RESULTS: ??The appropriate signals were obtained with positive and negative (reactive) ??control DNAs. ?? Clonal T-cell receptor gene rearrangement was detected by PCR ??analysis ( TBC, TGA, TGB primer sets) . INTERPRETATION: ?? Clonal T-cell receptor gene rearrangement detected. ?? Normal CG. Negative flow: T cell receptor gene rearrangements Myeloid sequencing for STAT3 negative 02/28/17. ?? As of January 2017: bone marrow biopsy and the results are not diagnostic, but she does have a T-cell receptor gene rearrangement which is most likely a variant of LGL. Stat 3 testing was subsequently negative. Her diagnosis is most consistent with LGL but we cannot say with certainty Past Surgical History: has a past surgical history that includes Colonoscopy, Biopsy (71727) (07/05/2011); Colonoscopy, Remv Lesn, Snare ([id number]) (07/05/2011); Bone Marrow Aspiration W/Bx Through Same Incision/Site ([id number]) (Right, 01/08/2017); and Bone Marrow Bx, Needle/Trocar ([id number]) (Right, 01/08/2017). Family History: No family history of colon cancer, inflammatory bowel disease, celiac diease, nor liver disease. Social History: reports that she has never smoked. She has never used smokeless tobacco. She reports current alcohol use of about six standard drinks of alcohol per week. She reports that she does not use drugs. She lives with her in [facility]. 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 No Physical Examination performed during this telemedicine visit Laboratory studies, imaging, and procedures (my review of prior records): Assessment/Plan: Ms. Parry is a 68 y.o. 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 coli bacteremia. I will obtain the records from [facility] to help complete the picture, but Ms. Parry gives a very detailed history which was supported by the transfer center note and discharge paperwork that she read tome today. The sudden onset of her symptoms argue strongly for infectious trigger that then led to E. coli bacteremia. She had no urinary symptoms, and paperwork did not allude to urosepsis or abnormal urinalysis. Therefore, a urinary source seems unlikely. I think the most likely explanation is that she either had a de wandy infectious E. coli enterocolitis unrelated to her ulcerative colitis, or mild ulcerative colitis allowed for bacterial translocation and bacteremia. While this is not common with ulcerative colitis, her chronic leukemia may have made her susceptible. Of note, while LGL leukemia typically increases susceptibility to infections, she has no history of chronic or recurrent infections in the past. At this point, I recommended that she taper her prednisone relatively quickly. We discussed going from 60 mg to 40 mg today and then tapering by 10 mg each week. She should finish her course of ciprofloxacin as prescribed for her bacteremia. As long as she stays relatively asymptomatic, I would prefer to postpone colonoscopy to reevaluate the degree of chronic colitis for approximately 8 to 12 weeks. That will be enough time hopefully for any acute colitis to resolve and give us a better restaging of the degree of her underlying disease. We discussed that, as a role with rare exceptions, ulcer ative colitis requires maintenance therapy, and we likely will need to consider some type of maintenance in the near future to keep her from typical complications of ulcerative colitis and also potentially to prevent similar translocation events in the future. Recommendations: # Obtain discharge summary from [facility] # Change prednisone from 60 mg/day to 40 mg/day and then taper by 10 mg every 7 days. # Continue course of ciprofloxacin for E. coli bacteremia # Schedule colonoscopy with moderate conscious sedation in 8 to 12 weeks # Recommend vitamin D supplementation 1000 to 2000 IUs daily while taking more than 20 mg/day of prednisone # Avoid non-steroidal anti-inflammatory medications (NSAIDs) including but not limited to Advil, ibuprofen, Motrin, Aleve, Excedrin, naproxen, Mobic, indomethacin, and aspirin. Acetaminophen (Tylenol) is okay for aches and pains. # I will follow-up the time of colonoscopy and in the office approximately 2 to 3 weeks thereafter.She will call in the meantime, if symptoms worsen. I spent 45 minutes face to face with the patient. 35 minutes were spent on counseling and discussion as of the above during this telemedicine visit. The patient was located in [place] at the time of their visit. Yola JENKINS MD [facility] [place] [id number] documented in this encounter Plan of Treatment Upcoming Encounters Date Type Department Care Team (Late st Contact Info) Description 04/15/2024 1:00 PM EST Office Visit Hematology/Oncology at [address] [phone] Lee Ann Jay MD [facility] HEMATOLOGY [place] [address] Leti Anderson APRN [facility] HEMATOLOGY [place] [address] documented as of this encounter Visit Diagnoses Diagnosis Other ulcerative colitis with complication documented in this encounter Care Teams Padding Gluer Relationship Specialty Start Date End Date Julia Chatterjee MD [facility] [address] [place] [address] PCP - General 01/31/10 documented as of this encounter
--- OUTSIDE RECORDS SUMMARY | 2023-10-22 02:50 | XMS_ITS | Encounter Summary ---
Author Organization [facility] [place] [address] Care Team Providers Care Phlebotomy Director Name Role Phone Julia Chatterjee MD Primary Care Provider [phone] Reason for Referral * Consultation (Urgent) - Closed Specialty Diagnoses / Procedures Referred By Kimani t Referred To Contact Gastroenterology Diagnoses Ulcerative rectosigmoiditis with abscess Hesham Dobson MD [facility] DR [place] [address] [facility] Endoscopy [address] [place] [address] Referral ID Status Reason Start Date Expiration Date V isits Requested Visits Authorized [id number] Closed Consult, Test & Treat 09/03/2019 09/02/2020 1 1 Encounter Details Date Type Department Care Team (Late st Contact Info) Description 09/03/2019 Orders [place] [address] Hesham Dobson MD [facility] [place] [address] Ulcerative rectosigmoiditis with abscess Social History Tobacco Use Types Packs/Day Years [...] PM EST Office Visit Hematology/Oncology at [address] [phone] Lee Ann Jay MD [facility] DR HEMATOLOGY [place] [address] Leti Anderson APRN [facility] HEMATOLOGY [place] [address] Scheduled Referrals Name Type Priority Associated Diagnoses Orde r Schedule Referral to Gastroenterology Outpatient Referral Routine Ulcerative rectosigmoiditis with abscess Ordered: 09/03/2019 documented as of this encounter Visit Diagnoses Diagnosis Ulcerative rectosigmoiditis with abscess documented in this encounter Care Teams Phlebotomy Director Relationship Specialty Start Date End Date Julia Chatterjee MD [facility] [address] [place] [address] PCP - General 01/31/10 documented as of this encounter
--- OUTSIDE RECORDS SUMMARY | 2023-10-22 02:50 | XMS_ITS | Encounter Summary ---
Author Organization [facility] [place] [address] Care Team Providers Care Hair Stylist Name Role Phone Julia Chatterjee MD Primary Care Provider [phone] Encounter Details Date Type Department Care Team (Late Contact Info) Description 08/07/2018 Orders Only Hematology/Oncology at [address] [phone] Michelle Layne RN Neutropenia, unspecified type; Large granular lymphocyte disorder Social History Tobacco [...] 1:00 PM EST Office Visit Hematology/Oncology at [address] [phone] Lee Ann Jay MD [facility] [address] [place] [address] Leti Anderson, [employer] [facility] [place] [address] documented as of this encounter Visit Diagnoses Diagnosis Neutropenia, unspecified type 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
--- OUTSIDE RECORDS SUMMARY | 2023-10-22 02:50 | XMS_ITS | Encounter Summary ---
Author Organization [facility] Address [facility] [place] [address] Care Team Providers Care Senior Contract Specialist Name Role Phone Julia Chatterjee MD Primary Care Provider [phone] Encounter Details Date Type Department Care Team (Late st Contact Info) Description 08/31/2019 Telephone [place] [address] Yola Oliveros MD [facility] [place] [address] Social History Tobacco Use Types Packs/Day Years [...] Telephone Encounter - Yola Oliveros MD - 08/31/2019 5:42 PM EDT I received a call today from Dr. Chatterjee regarding Ms. Parry. Since her telehealth visit with me, she had low-grade fevers to 100F and so was seen again in the [facility] emergency department. Per Dr. Chatterjee, a fever was not documented in the ER notes. Blood cultures were drawn and apparently were negative. The physician there added Augmentin to her regimen. Dr. Chatterjee had recommended adding 5 more days of ciprofloxacin. She currently is taking 20 mg/day of prednisone with a plan to taper to 10 mg/day and then off. She is not having diarrhea, no urinary symptoms. Still unclear to me if the underlying colitis in conjunction with LGL made her susceptible to bacterial translocation with a resultant bacteremia, or if this was a primary infectious acute enterocolitis with secondary bacteremia (again potentially more susceptible due to LGL?). Without new cultures to prove persistent bacteremia or clear documentation of fevers, recommended against the Augmentin and extended ciprofloxacin at this point because unclear to me what we are treating. Would continue taper of prednisone. Clearly, need to be vigilant for recurrent fevers over 100F, no abdominal pain, recurrent diarrhea. If the symptoms recur, would evaluate with cultures and potentially consider moving her colonoscopy up. Currently, he is tentatively planned for 8 or so weeks. documented in this encounter Plan of Treatment Upcoming Encounters Date Type Department Care Team (Late st Contact Info) Description 04/15/2024 1:00 PM EST Office Visit Hematology/Oncology at [address] [phone] Lee Ann Jay MD [facility] [place] [address] Leti Anderson APRN [facility] [place] [address] documented as of this encounter Visit Diagnoses Not on filedocumented in this encounter Care Teams Senior Contract Specialist Relationship Specialty Start Date End Date Julia Chatterjee MD [address] [place] [address] PCP - General 01/31/10 documented as of this encounter
--- OUTSIDE RECORDS SUMMARY | 2023-10-22 02:50 | XMS_ITS | Encounter Summary ---
Author Organization [facility] Address [facility] [place] [address] Care Team Providers Care Automobile Parts Assembler Name Role Phone Julia Chatterjee MD Primary Care Provider [phone] Encounter Details Date Type Department Care Team (Late st Contact Info) Description 01/08/2017 9:30 AM EDT - 01/08/2017 10:00 AM EDT Surgery [place] [address] Lee Ann Jay MD [facility] [place] [address] ([facility] MSURG) BONE MARROW ASP PERFORMED W/BX THRU BX INCISION (WRVU 0.16) Social History Tobacco Use Types Packs/Day Years [...] Sign Reading Time Taken Comments Blood Pressure 103/68 01/08/2017 9:35 AM EDT Pulse 65 01/08/2017 9:35 AM EDT Temperature 36 ??C (96.8 ??F) 01/08/2017 8:45 AM EDT Respiratory Rate 16 01/08/2017 9:35 AM EDT Oxygen Saturation 95% 01/08/2017 9:35 AM EDT Inhaled Oxygen Concentration - - Weight 67.1 kg (148 lb) 01/08/2017 8:45 AM EDT Height 160 cm (5' 3) 01/08/2017 8:45 AM EDT Body Mass Index 26.22 01/08/2017 8:45 AM EDT documented in this encounter Discharge Instructions * Discharge Instructions* Carmelo Gracy I, RN - 01/08/2017 8:41 AM EDT OUTPATIENT SURGERY POST-OPERATIVE INSTRUCTIONS BONE MARROW BIOPSY SITE 1. You have had a bone marrow aspiration and or/biopsy, which is like having an operation with a tiny, deep incision. 2. Do Not do any strenuous work today, like housework, yard work, sports of any kind or lifting more than 5 pounds as it may cause your bone marrow site to bleed. 3. To avoid infection, leave the clear plastic dressing on the site for three days. You may shower,bathe, or swim as you wish, provided the clear dressing remains intact, and all sides of the dressing are firmly adhered to the skin. In the unlikely event that a portion or the entire dressing should come off, you may replace it with a conventional cloth band aid. However, you will no longer be able to get the site wet until three days have passed, as a conventional band aid is not waterproof and the site is no longer a sterile area. 4. It is not unusual for the site to leak a scant amount of blood, so do not be alarmed to see a small collection, or ???puddle?? of blood under the dressing. Wound healing will still occur. 5. If you are uncertain if there is an increase in any leaking from your bone marrow site, roll up a towel, lie down on a firm surface, place the towel directly under the puncture site to apply pressure, and rest there for one half hour. Direct, FIRM thumb pressure applied to the site for 10 minutes works well as an alternative method. Leave the dressing on. 6. Most people do not experience much discomfort after this procedure, but if you do, you should ask your physician what to take. AVOID ASPIRIN PRODUCTS as these interfere with clotting. 7. After three days, remove your dressing and leave it off, so the air can get to the site to finish the healing process. 8. NOTIFY YOUR DOCTOR FOR: a. Redness b. Heat c. Fever d. Swelling e. Drainage f. Increased pain g. Foul odor (which may not be apparent through the dressing) If you are having problems or have any additional concerns or questions: Between 8am and 5pm - Call the Hematology Clinic at . After 5pm or on a weekend: Call the [facility] boring machine operator double end at and ask for the physician assistant golf professional covering for your doctor. Instructions following sedation You may have received medication before and/or during your procedure, which affects judgement and reaction time. Use caution with stairs. Do not drive, operate machinery, drink alcoholic beverages, or make any legal decisions for 24 hours. You may eat a regular diet as tolerated. Do not smoke if you are alone. IV site -- slight redness, or tenderness is normal, you can use a warm compress. If tenderness and redness increases or foul drainage occurs, please contact your [facility] [address] ??? [place] [address] ??? [phone] ??? [email or web address] [email or web address] [employer] ??? [facility] ??? [facility] ??? [facility] documented in this encounter Medications at Time of Discharge Medication Sig Dispensed Refills Start Date End Date ascorbic acid, vitamin C, (VITAMIN C) 500 mg TabletIndications:Neut ropenia, unspecified type Take 500 mg by mouth daily. 08/26/2019 UNKNOWN TO PATIENTIndications:Saran natrophin for adrenal support Take 1 tablet by mouth daily. Reported on 07/09/2016 Indications: Drenatrophin for adrenal support 08/26/2019 GLUCOSAMINE HCL/CHONDRO TRIVEDI A (GLUCOSAMINE-CHONDROIT IN ORAL) 06/28/2008 08/26/2019 CALCIUM/MAGNESIUM (CALCIUM AND MAGNESIUM ORAL) 06/28/2008 01/23/2017 ERGOCALCIFEROL, VITAMIN D2, (VITAMIN D ORAL) 06/28/2008 10/14/2019 documented as of this encounter H&P Notes * Radha Cooper, J2EE ENGINEER - 01/08/2017 9:12 AM EDT Images from the original note were not included. 01/08/17 Pre-Sedation Assessment: Planned procedure: Unilateral Bone Marrow Aspirate with Biopsy Indications: daignostic Diagnosis: chronic neutropenia Assessment Cardiovascular: Rhythm: Regular Rate: Normal Pulmonary: Breath sounds clear to auscultation ASA: 2. Mild systemic disease. Mallampati: Class 2: Upper half of tonsil fossa visible H&P reviewed: Yes Relevant diagnostic studies: None Confirm NPO status: Yes, Date and Time of last intake: 01/07@ 2100 History of anesthetic complications: No Current medications reviewed: Yes Allergies reviewed: Yes Alcohol use: approx 4 drinks/week Date and Time of last drink: 2 days ago Drug use: None Sedation Plan: moderate (conscious sedation) The sedation plan, its benefits and risks, and alternatives were discussed with the patient. The planned procedure, its benefits and risks, and alternatives were discussed with the patient. The patient consented to the procedure. Discharge to: Home Radha Cooper, MSN, J2EE ENGINEER Nurse Practitioner Section of Hematology/Oncology [facility] Office phone: documented in this encounter Procedure Notes * Radha Cooper APRN - 01/08/2017 9:44 AM EDTAssociated Order(s): ([facility]) UNILAT BONE MARROW BIOSPY; ([facility] MS[facility])BONE MARROW ASP PERFORMED W/BX THRU BX INCISION BONE MARROW BIOPSY AND ASPIRATION PROCEDURE NOTE Bone Marrow Biopsy & Aspiration with Conscious Sedation - Unilateral Date/Time of Procedure: 01/08/2017 Proceduralist: Radha Cooper, RN, MS, PLANT ELECTRICIAN DIAGNOSIS: neutropenia Pre-Procedure: (x) Consent signed and on chart. (x) CBC drawn within 3 days. (x) Medications/Allergies/Problem List reviewed. (x) H & P complete Prior to start of procedure the following is verified in a TIME OUT: (x) Patient identity (x) Planned procedure (x) Safety concerns IV ACCESS: Per sedation RN PAIN INTERVENTION: Per sedation RN Sterile Condition: Chlorohexidine/betadine was used to sterilize the area. Sterile drapes were usedto create a sterile field. Local Anesthesia: 1% Lidocaine 20cc's. PROCEDURE: A bone marrow biopsy and aspiration was performed on the right posterior iliac crest. Pressure applied to site(s) for at least 20 minutes following the procedure and Tegaderm placed. Estimated Blood Loss: minimal Complications: none POST INTERVENTION CARE & PAIN ASSESSMENT: Per [facility] nurses. Follow-up: Written/Verbal instructions for site care given to patient per [facility] nurses. Follow-up with Physician as instructed. documented in this encounter Plan of Treatment Upcoming Encounters Date Type Department Care Team (Late st Contact Info) Description 04/15/2024 1:00 PM EST Office Visit Hematology/Oncology at [address] [phone] Lee Ann Jay MD [facility] [address] [place] [address] Leti Anderson APRN [facility] [place] [address] documented as of this encounter Procedures Procedure Name Priority Date/Time Associated Diagnosis Comments CHROMO REPORT ACQUIRED Routine 7 11:45 AM EDT ([facility]G)BONE MARROW ASP PERFORMED W/BX THRU BX INCISION Routine 01/08/2017 9:45 AM EDT ([facility]) BONE MARROW BIOPSY; DIAGNOSTIC Routine 01/08/2017 9:45 AM EDT IMMUNOPHENOTYPING FLOW CYTOMETRY (BLOOD) Routine 01/08/2017 9:31 AM EDT MYELOID SEQ PANEL Routine 01/08/2017 9:3 1 AM EDT BONE MARROW FINAL REPORT Routine 017 9:31 AM EDT MISC MCAE TEST-MACE Routine 01/08/2017 9 :31 AM EDT IRON STAIN, BONE MARROW Routine 01/09/20 9:31 AM EDT BONE MARROW PANEL ([facility]P/APD) Routine 01/08/2017 9:31 AM EDT ([facility]) BONE MARROW BIOPSY; DIAGNOSTIC (WRVU 1.28) 01/08/2017 9:24 AM EDT chronic neutropenia ([facility] MS[facility]G) BONE MARROW ASP PERFORMED W/BX THRU BX INCISION (WRVU 0.16) 01/08/2017 9:24 AM EDT chronic neutropenia SCAN, PERIPHERAL BLOOD Routine 7 8:56 AM EDT HEMOGRAM Routine 01/08/2017 8:56 AM EDT DIFFERENTIAL, AUTOMATED Routine 01/09/20 8:56 AM EDT CBC (WITH DIFF) Routine 01/08/2017 8:56 AM EDT documented in this encounter Results * chromo report acquired (01/08/2017 11:45 AM EDT) Pathologist [facility] Cytogenetics Acquired Report Final Report ?[id number] Specimen Type: Bone Marrow Specimen Condition: ~ 3 MLS, FAT AND SPICULES Collection Date/Time: 01/08/2017 09:31 Received Date/Time: 01/08/2017 12:54 Indication: Neutropenia ---Results--- Normal karyotype. ---Karyotype--- 46,XX[20] ---Preparation-- - Culture Type: 24 and 48 hour short term cultures Days in Culture: 1-2 Banding Method: G-banding Banding Level: 400 bands FISH Method: N/A ---Analysis--- Cultures Analyzed: 2 Metaphase Cells Counted: ??30 Metaphase Cells Analyzed: ??20 Metaphase Cells Karyotyped: ??2 ---Interpretatio n--- Cytogenetic analysis of the bone marrow preparations revealed a normal female karyotype of 46,XX. No clonal abnormalities were observed. ---Comments--- Correlation with clinical presentation and other laboratory testing results is suggested. 11.09.17 (Electronic Signature) Verified By: Christiano PONCE, Ph.D., Cent[place]ing Director, Cytogenetics [facility] 01/08/2017 11:4 5 AM EDT Radha Cooper J2EE ENGINEER HEMATOLOGY ORDERABLE S [facility] [place] [address] * ([facility] MS[facility]G)BONE MARROW ASP PERFORMED W/BX THRU BX INCISION (01/08/2017 9:45 AM EDT) Narrative Radha Cooper, J2EE ENGINEER - 01/08/2017 9:45 AM EDT Radha Cooper, JAYLEN ? 01/08/2017 ??9:45 AM BONE MARROW BIOPSY AND ASPIRATION PROCEDURE NOTE Bone Marrow Biopsy & Aspiration with Conscious Sedation - Unilateral Date/Time of Procedure: 01/08/2017 Proceduralist: Radha Cooper, RN, MS, PLANT ELECTRICIAN DIAGNOSIS: neutropenia Pre-Procedure: (x) Consent signed and on chart. (x) CBC drawn within 3 days. (x) Medications/Allergies/Problem List reviewed. (x) H & P complete Prior to start of procedure the following is verified in a TIME OUT: (x) Patient identity (x) Planned procedure (x) Safety concerns IV ACCESS: Per sedation RN PAIN INTERVENTION: ?Per sedation RN Sterile Condition: ??Chlorohexidine/betadine was used to sterilize the area. Sterile drapes were used to create a sterile field. Local Anesthesia: 1% ??Lidocaine 20cc's. PROCEDURE: A bone marrow biopsy and aspiration was performed on the right posterior iliac crest. Pressure applied to site(s) for at least 20 minutes following the procedure and Tegaderm placed. Estimated Blood Loss: minimal Complications: none POST INTERVENTION CARE & PAIN ASSESSMENT: ?Per [facility] nurses. Follow-up: ??Written/Verbal instructions for site care given to patient per [facility] nurses. Follow-up with Physician as instructed. Lee Ann Jay MD GENERAL SURGICAL ORDERABLES * ([facility]) UNILAT BONE MARROW BIOSPY (01/08/2017 9:45 AM EDT) Narrative Radha Cooper, J2EE ENGINEER - 01/08/2017 9:45 AM EDT Radha Cooper, J2EE ENGINEER ? 01/08/2017 ??9:45 AM BONE MARROW BIOPSY AND ASPIRATION PROCEDURE NOTE Bone Marrow Biopsy & Aspiration with Conscious Sedation - Unilateral Date/Time of Procedure: 01/08/2017 Proceduralist: Radha Cooper, RN, MS, PLANT ELECTRICIAN DIAGNOSIS: neutropenia Pre-Procedure: (x) Consent signed and on chart. (x) CBC drawn within 3 days. (x) Medications/Allergies/Problem List reviewed. (x) H & P complete Prior to start of procedure the following is verified in a TIME OUT: (x) Patient identity (x) Planned procedure (x) Safety concerns IV ACCESS: Per sedation RN PAIN INTERVENTION: ?Per sedation RN Sterile Condition: ??Chlorohexidine/betadine was used to sterilize the area. Sterile drapes were used to create a sterile field. Local Anesthesia: 1% ??Lidocaine 20cc's. PROCEDURE: A bone marrow biopsy and aspiration was performed on the right posterior iliac crest. Pressure applied to site(s) for at least 20 minutes following the procedure and Tegaderm placed. Estimated Blood Loss: minimal Complications: none POST INTERVENTION CARE & PAIN ASSESSMENT: ?Per [facility] nurses. Follow-up: ??Written/Verbal instructions for site care given to patient per [facility] nurses. Follow-up with Physician as instructed. Lee Ann Jay MD GENERAL SURGICAL ORDERABLES * Bone Marrow Final Report (01/08/2017 9:31 AM EDT) Final Diagnosis [id number] ? Location: [facility] The signing pathologist has (i) examined the relevant preparation(s) for the specimen(s) and (ii) rendered or confirmed the diagnosis(es). . ? Final Integrated Report INTEGRATED DIAGNOSIS Patient: ??[id number] ?? LETI PARRY Bone Marrow Integrated Results For 89 == SPECIMEN RESULTS == 1. Normocellular marrow with normal trilineage hematopoesis, with minor CD8+ T-cell interstitial infiltrate (5% of marrow) 2. Neutropenia, increased large granular lymphocytes, peripheral blood DISCUSSION: The findings are suspicious ??but not diagnostic for Large Granular lymphocytic Leukemia. The T lymphocytes are CD8 dominant, but do not show aberrancy by flow analysis. Should cytopenias persist , it may be prudent to send out peripheral blood for ??STAT3 mutation analysis (please contact the lab for further information) ??TCR gene rearrangement studies do show T cell clonlity . SYNOPSIS OF ANCILLARY STUDY RESULT(S) Immunophenotyping: T lymphocytes with slightly increased cytotoxic T lymphocytes with no diagnostic aberrances. No monotypic B cell population or increase in blasts detected. [place]ADA FLOW REPORT for NK/LGL analysis : NORMAL . No monotypic B-cell population, phenotypically aberrant T-cell population or increase in blasts identified. T-cells/ NK-cells: ?Normal phenotype by CD2, CD3, CD4, CD45, ? CD5, CD7, CD8, CD16, CD56, CD57, CD94, NKG2a, and TCR-gamma/delta. KIR panel: ?No monotypic, normal pattern of YZ948i, EX507d, and ZX700o (p70). Molecular genetic analysis: ? T CELL RECEPTOR GENE REARRANGEMENT BY PCR detected Myeloid Seq Panel: Variant(s) detected: IDH1, DNMT3A ( STAT3 NOT part of the sequencing panel) Refer to the ??'Myeloid Somatic Mutation Panel ??' report (dated 02/28/17) for complete report text and interpretive information. NOTE : These variants are suspicious but not diagnostic for a myeloid disorder. Cytogenetic analysis: ---Results--- Normal karyotype. ---Karyotype--- 46,XX[20] . INTEGRATED DIAGNOSIS This is a summary report; collating results from all diagnostic studies performed at [facility] on this particular biopsy specimen. ??Please refer to the primary report(s) of each individual study for complete text and additional study details. Electronically signed by: ??Shad Rubio MD Verified: ??03/18/2017 ?Hematopathologist Performed at: ??-[facility] Dept. of Pathology, [place], [place] ?Molecular Genetics RESULTS ? T CELL RECEPTOR GENE REARRANGEMENT BY PCR INDICATION FOR STUDY: ?? Neutropenia ?LGL; Assess clonality. ANALYSIS: ?? Examination of isolated DNA for rearrangement of the T cell receptor genes by polymerase chain reaction (PCR). SAMPLE: ?? 01/08/2017 - bone marrow ?? [17-153] [MGDL 5293] METHODS: ??DNA was isolated, after cell lysis, from formalin-fixed paraffin embedded tissue. ??PCR was performed using [employer] ??'s TCR Beta gene clonality assay (primer mixes TBA, TBB, TBC), and TCR Gamma gene clonality assay (primer mixes TGA and TGB). ??Fluorescently labeled PCR products were using the [employer] Admeld 3500 capillary electrophoresis system. RESULTS: ??The appropriate signals were obtained with positive and negative (reactive) control DNAs. ?? Clonal T-cell receptor gene rearrangement was detected by PCR analysis ( TBC, TGA, TGB primer sets) . INTERPRETATION: ?? Clonal T-cell receptor gene rearrangement detected. COMMENT: ??STAT5 mutation studies are recommended and can be performed on peripheral blood. Please contact the lab for arrangements of pursuing the same. Repeat T cell clonality studies are also recomended to confirm pesistance of clone. In the BIOMED2 study (francesca Means. al. Leukemia. ??2002; 17 (12):3527-7973), the Wigixribe B cell IgH gene rearrangement assay was able to detect greater than 95% of all clonal B cell populations. ??A combination of the TCR Beta and TCR Gamma gene clonality assays was able to detect 100% (18/18) of clonal TCR (by Southern blot) samples. This assay was performed using analyte specific reagents which are regulated by the U.S. Food and Drug Administration. This test was developed and its performance characteristics determined by the Molecular Pathology Laboratory at [facility]. It has not been cleared or approved by the U.S. Food and Drug Administration. However, as a C.L.I.A. licensed ??laboratory, our facility is approved for such high complexity clinical testing. _ Electronically signed by: ??Shad Rubio MD Verified: ??01/21/2017 ?Hematopathologist Performed at: ??-[facility] Dept. of Pathology, [place], [place] ? Bone Marrow Final DIAGNOSIS 1. Normocellular marrow with normal trilineage hematopoesis, with minor CD8+ T-cell interstitial infiltrate (5% of marrow) 2. Neutropenia, increased large granular lymphocytes, peripheral blood . DIAGNOSIS 3. NK clonality studies pending. Electronically signed by: ??Shad Rubio MD Verified: ??01/11/2017 ?Hematopathologist Performed at: ??-[facility] Dept. of Pathology, [place], [place] DISCUSSION The findings are suspicious ??but not diagnostic for ?Large Granular lymphocytic Leukemia . The T lymphocytes are CD8 dominant, but do not show aberrancy by flow analysis. NK cells are not interrogated for clonality by our studies and clonality studies ( KIR assessment by flow ) are being pursued at the [facility]. Should cytopenias persist , it may be prudent to send out peripheral blood for ??STAT3 mutation analysis (please contact the lab for further information) ??TCR gene rearrangement studies are ongoing. Separate report to follow. PERIPHERAL SMEAR WBC 2.01K/ul; RBC 4.55x10 ??6/ul; Hgb 13.3; MCV 89.9; RDW 12.2; PLT 183K/ul There is no anemia. The red blood cells show no significant anisopoikilocytosis . There is no hypochromasia or increased polychromasia. There is absolute neutropenia (0.21K/uL) with normal neutrophil morphology. Lymphocytes are normal in number (1.31K/uL), however most have the a large granular lymphocyte morphology. Platelets show normal morphology. BONE MARROW ASPIRATE The bone marrow aspirate is adequate. ??It is cellular with granulocyte:erythro id ratio of 2:1. ??Erythroid precursors show normoblastic maturation. ??Granulocytic precursors show normal maturation. ??Megakaryocytes are normal in number and morphology. ??Lymphocytes and plasma cells are normal. ??Iron stain performed and shows that iron stores are present and distributed in macrophages. ??No ringed sideroblasts are seen. DIFFERENTIAL Neutrophils/bands 37%, Lymphocytes 6%, Monocytes 3%, Eosinophils 2%, Basophils 0%, Metamyelocytes 2%, Myelocytes 6%, Promyelocytes 8%, Blasts 4%, Erythroid precursors 28%, Plasma cells 4%. BONE MARROW BIOPSY and/or CLOT The adequate decalcified bone marrow biopsy is normocellular (40%). ??The erythroid precursors are numerically normal. The granulocytic precursors are numerically normal with normal maturation. Megakaryocytes are adequate in number. Lymphoid aggregates are not seen. Plasma cells are not increased. Granulomas are not identified. Bony spicules appear normal for age. IMMUNOHISTOCHEMISTR Y STUDIES Block: ?A1 (Core biopsy) Fixative: ?? Formalin ANTIBODY: ?? RESULT/COMMENT CD3 ??Small scattered interstitial T-cells stain CD8 ??Stains nearly all scattered T-cells TIA1 ??Rrae positive in T-cells CD20 ??Few rare positive B-cells Note: The immunoperoxidase stains reported above were developed and their performance characteristics determined by [facility] Clinical Laboratories. ??They have not been cleared or approved by the U.S. Food and Drug Administration, although such approval is not required for analyte-specific reagents of this type. ??Appropriate positive and negative controls are included for each case. . CLINICAL INFORMATION Specimen: ? Bone marrow aspirate and biopsy, right Clinical Diagnosis: ? Neutropenia Indication for Study: ?? ? LGL ?Flow Cytometry DIAGNOSIS T lymphocytes with slightly increased cytotoxic T lymphocytes with no diagnostic aberrances. No monotypic B cell population or increase in blasts detected. Electronically signed by: ??Shad Rubio MD Verified: ??01/09/2017 ?Hematopathologist Performed at: ??-[facility] Dept. of Pathology, [place], [place] DISCUSSION Blasts based on CD45 expression and orthogonal light scatter, are not increased. The T-lymphocytes, CD56+ NK cells and B- lymphocytes comprise approx 69%, 30%, 2% of the gated population, respectively. The CD19 positive B-cells have a polytypic expression of surface immunoglobulin light chain (Garrison:Lambda ratio at 1.6). The T-cells are an admixture of CD4+ and CD8+ T lymphocytes (ratio of 0.6). No loss or atypical intensity distributions are seen for any shankar T antigen (CD2, 3, 4+8, 5, 7). There is no increase in YO18-ztctfned/CD3-n eg NK cells or CD3+CD16+ aberrant T cells. Flow analysis is an ancillary study. A definite diagnosis requires correlation with the morphologic features of this process and if necessary, correlation with other ancillary studies like immunohistochemistr y, enzyme cytochemistry and/or cyto/ molecular genetics. This test was developed and its performance characteristics determined by the Clinical Flow Cytometry Laboratory at [facility]. It has not been cleared or approved by the U.S. Food and Drug Administration. ??The FDA has determined that such clearance or approval is not necessary. ??This test is used for clinical purposes. ??It should not be regarded as investigational or for research. This laboratory is certified under the Clinical Laboratory Improvement Act of 1988 (CLIA) as qualified to perform high complexity clinical laboratory testing. SPECIMEN PROCESSING [id number] Cells for immunophenotypic analysis were derived from bone marrow aspirate. ??CD45 vs side scatter gating was utilized to identify a lymphoid analysis region that comprises approximately 13-15% of all cells. The following markers were assessed: CD2, CD3, CD4, CD5, CD7, CD8, CD10, CD16, CD19, CD45, CD56, CD57, kappa light chain, and lambda light chain. CLINICAL INFORMATION neutropenia 03/18/2017 5:14 PM EST [facility] BONE MARROW STRUCTURE / Unknown 01/08/2017 9:31 AM EDT 01/08/2017 9:31 AM EDT Radha Cooper APRN PATHOLOGY/CYTOLOGY O RDERABLES [facility] [place] [address] * [facility] (01/08/2017 9:31 AM EDT) [facility] ?Result ? Flag ??Unit ??RefValue Leukemia/Lymphoma, Phenotype ??LCMS Result ? Performed ??Final Diagnosis: ?SEE COMMENTS ?Bone marrow, flow cytometric immunophenotyping: ?Normal immunophenotyping results. ??No monotypic B-cell ?population, phenotypically aberrant T-cell population or ?increase in blasts identified. ?Comment: ?Correlation of the flow cytometry results with the bone ?marrow aspirate and biopsy findings, clinical history and ?other laboratory features is required for a definitive ?diagnosis. ??If desired, we can provide diagnostic services ?as part of a hematopathology consultation. ??Please contact ?the signing pathologist at if you have ?further questions regarding these analyses. ?Reviewed by: Stephane Soriano M.D., Ph.D. ? -ADDITIONAL INFORMATION--------- ?This test was developed using an analyte specific reagent. ?Its performance characteristics were determined by [facility] in a manner consistent with CLIA requirements. This ?test has not been cleared or approved by the U.S. Food and ?Drug Administration. ??Special Studies: ?SEE COMMENTS ?%Lymphs: ??12% ?Results: ?Blasts: ??Not increased by CD45/side scatter and CD34. ?B-cells: ??No monotypic; normal expression pattern of CD19, ?CD10, surface kappa and lambda. ?T-cells/NK-cells: ??Normal phenotype by CD2, CD3, CD4, CD45, ?CD5, CD7, CD8, CD16, CD56, CD57, CD94, NKG2a, and ?TCR-gamma/delta. KIR panel: ??No monotypic, normal pattern ?of YI130c, LI478v, and II876z (p70). ?Quality assessment: ??Specimen received within validated ?guidelines. ??Microscopic Description ? SEE COMMENTS ?A Kpwrcb-Cscbvj-bwgetz d slide prepared from the flow ?cytometry specimen is examined. ??The specimen contains ?maturing hematopoietic precursors. ??No morphologic features ?of acute leukemia, lymphoma or a plasma cell proliferative ?disorder are identified. ?Test Performed by: ?[facility] ?[address] [place], [place] [id number] [place] [address] LABORATORY Blood specimen (specimen) Venous Draw / Unknown 01/08/2017 9:31 AM EDT 01/09/2017 3:59 PM EDT Narrative Resulting Agency Comment Spec In Lab Radha Cooper APRN LAB SEND OUT ORDERAB LES Performing Organization Address [facility] Co de Phone Number [facility] [place] [address] * Myeloid Seq Panel (01/08/2017 9:31 AM EDT) Bone marrow specimen (specimen) 01/08/2017 9:31 AM EDT 01/10/2017 6:43 AM EDT Narrative Resulting Agency Comment Spec In Lab Radha Cooper APRN CHEMISTRY ORDERABLES Performing Organization Address [facility] de Phone Number [facility] [place] [place] [address] * Immunophenotyping Flow Cytometry (01/08/2017 9:31 AM EDT) Immunophenotyping Flow See Comment [facility] Comment: When completed by the Pathologist, the Flow Cytometry Report ([id number]) will display under the Pathology Results section within [facility]. Bone marrow specimen (specimen) 01/08/2017 9:31 AM EDT 01/08/2017 10:11 AM EDT Narrative Resulting Agency Comment Spec In Lab Radha Cooper APRN HEMATOLOGY ORDERABLE S Performing Organization Address [facility] Co de Phone Number [facility] [place] [place] [address] * Iron Stain, Bone Marrow (01/08/2017 9:31 AM EDT) Bone Marrow Iron Stain See Comment [facility] Comment:See Bone Marrow Repo rt [id number] under Hematopathology Reports. Bone marrow specimen (specimen) 01/08/2017 9:31 AM EDT 01/08/2017 10:11 AM EDT Narrative Resulting Agency Comment Spec In Lab Radha D Schaal J2EE ENGINEER HEMATOLOGY ORDERABLE S [facility] [place] [address] * Scan, Peripheral Blood (01/08/2017 8:56 AM EDT) Plat estimate Normal [facility] RBC Morphology Normal [facility] Blood specimen (specimen) 01/08/2017 8:56 AM EDT 01/08/2017 10:11 AM EDT Narrative Resulting Agency Comment Spec In Lab Radha Cooper J2EE ENGINEER HEMATOLOGY ORDERABLE S Performing Organization Address City/[facility]/ZIP Co de Phone Number [facility] [place] [address] * (ABNORMAL) Differential, Automated (01/08/2017 8:56 AM EDT) Pathologist [facility] Neutrophil % 10.4 % [facility] Neutrophil Absolute 0.21(Crit ical) 1.70 - 6.10 x10(3)/mc L [facility] Comment: This result has been called to ELIZABETH SALGADO by Mckay Rodriguez on 01 08 2017 at 1049, and has been read back. Lymph % 65.2 % [facility] Lymphocytes Abs 1.3 0.9 - 3.2 x10(3)/mc L [facility] Monocyte % 18.4 % [facility] Monocyte Abs 0.4 0.3 - 0.9 x10(3)/mc L [facility] Eos % 0.5 % [facility] Eosinophils Abs 0.0 0.0 - 0.4 x10(3)/mc L [facility] Basophil % 0.5 % [facility] Baso Absolute 0.0 0.0 - 0.1 x10(3)/mc L [facility] Immature Gran % 5.00 % [facility] Comment: Immature granulocytes(IG's)percentage and absolute count will include metamyelocytes, myelocytes, and promyelocytes. Blood smears from CBCs yielding IG's will be scanned manually for concordance. If this scan disagrees with the automated IG or if promyelocytes are noted, a manual differential will be performed. Immature Gran Absolute 0.10(H) 0.00 - 0.04 x10(3)/mc L [facility] Blood specimen (specimen) 01/08/2017 8:56 AM EDT 01/08/2017 10:11 AM EDT Narrative Resulting Agency Comment Spec In Lab Radha Cooper J2EE ENGINEER HEMATOLOGY ORDERABLE S [facility] [place] [address] * (ABNORMAL) Hemogram (01/08/2017 8:56 AM EDT) White Blood Cell 2.0(L) 4.0 - 9.5 x10(3)/mc L [facility] Red Blood Cell 4.55 4.00 - 5.21 x10(6)/mc L [facility] Hemoglobin 13.3 11.7 - 15.5 gm/dL [facility] Hematocrit 40.9 35.7 - 45.8 % [facility] Mean Cell Volume 89.9 82.6 - 94.4 fL [facility] Mean Cell Hemoglobin 29.2 27.1 - 32.0 pg [facility] Mean Cell Hemoglobin Concentration 32.5 31.7 - 35.0 gm/dL [facility] Platelet 183 145 - 357 x10(3)/mc L [facility] RDW Standard Deviation 40.4 37.0 - 46.0 fL [facility] RDW coefficient of variation 12.2 11.5 - 14.1 % [facility] Mean Platelet Volume 10.2 7.6 - 12.9 fL [facility] NRBC% auto 0.0 % [facility] NRBC Absolute 0.000 0.000 - 0.000 x10(3)/mc L [facility] Blood specimen (specimen) 01/08/2017 8:56 AM EDT 01/08/2017 10:11 AM EDT Narrative Resulting Agency Comment Spec In Lab Radha Hurley Blairmoon J2EE ENGINEER HEMATOLOGY ORDERABLE S [facility] [place] [address] documented in this encounter Visit Diagnoses Not on filedocumented in this encounter Administered Medications Inactive Administered Medications - up to 3 most recent administrations Medication Order MAR Action Action Date Dose Rate Site fentaNYL 50 mcg/mL multi-dose injection 25-50 mcg, Intravenous, EVERY 5 MIN PRN, Starting on Sat01/08/17 at 0837, Until Sat01/08/17 at 1206, Pain, Hold for respiratory rate less than 8 breaths per minute. (maximum dose 200 mcg), Intra-Operative (Intra-Procedure), Routine Given 01/08/2017 9:31 AM EDT 25 mcg Given 01/08/2017 9:29 AM EDT 25 mcg heparin, porcine (PF) 1,000 unit/mL injection 1 dose, Starting on Sat01/08/17 at 0909, Until Sat01/08/17 at 1206, GRACY RHODES I.: cabinet override lidocaine (PF) (XYLOCAINE) 10 mg/mL (1 %) injection 1 dose, Starting on Sat01/08/17 at 0909, Until Sat01/08/17 at 1206, RGACY RHODES I.: cabinet override lidocaine (XYLOCAINE) 10 mg/mL (1 %) injection 3 mg 3 mg (0.3 mL), Subcutaneous, ONCE PRN, 1 dose, Starting on Sat01/08/17 at 0837, Until Sat01/08/17 at 1206, for discomfort with PIV insertion, Day of Surgery (Day of Procedure), Routine midazolam (PF) (VERSED) 1 mg/mL multi-dose injection 0.5-2 mg 0.5-2 mg, Intravenous, EVERY 5 MIN PRN, Starting on Sat01/08/17 at 0837, Until Sat01/08/17 at 1206, Sleep, Anxiety, Hold for delirium/agitation. (Maximum dose 5 mg)., Intra-Operative (Intra-Procedure), Routine Given 01/08/2017 9:26 AM EDT 2 mg Given 01/08/2017 9:21 AM EDT 2 mg naloxone (NARCAN) injection 0.1 mg 0.1 mg, Intravenous, EVERY 2 MIN PRN, Starting on Sat01/08/17 at 0837, Until Sat01/08/17 at 1206, Opioid Reversal, Opiate induced oversedation or respiratory depression. (maximum dose of 0.8 mg), Intra-Operative (Intra-Procedure), Routine sodium chloride 0.9 % flush 5 mL 5 mL, Intravenous, EVERY 12 HOURS, First dose on Sat01/08/17 at 0900, Until Discontinued, Day of Surgery (Day of Procedure), Routine sodium chloride 0.9 % flush 5-20 mL 5-20 mL, Intravenous, EVERY 1 MIN PRN, Starting on Sat01/08/17 at 0837, Until Sat01/08/17 at 1206, flush, Flush pertains to all indwelling lines. Flush per protocol found in the job aid using the link provided on this medication record., Day of Surgery (Day of Procedure), Routine documented in this encounter Active and Recently Administered Medications Times are shown in EDT. Scheduled Medication Order 01/06/2017 01/07/2017 01/08/2017 sodium chloride 0.9 % flush 5 mL 5 mL, Intravenous, EVERY 12 HOURS, First dose on Sat01/08/17 at 0900, Until Discontinued, Day of Surgery (Day of Procedure), Routine 0900 (Due) PRN Medication Order 01/06/2017 01/07/2017 01/08/2017 fentaNYL 50 mcg/mL multi-dose injection 25-50 mcg, Intravenous, EVERY 5 MIN PRN, Starting on Sat01/08/17 at 0837, Until Sat01/08/17 at 1206, Pain, Hold for respiratory rate less than 8 breaths per minute. (maximum dose 200 mcg), Intra-Operative (Intra-Procedure), Routine 09 (Given - Provid er: Gracy Garcias RN)0931 (Given - Provider: Gracy Garcias RN) lidocaine (XYLOCAINE) 10 mg/mL (1 %) injection 3 mg 3 mg (0.3 mL), Subcutaneous, ONCE PRN, 1 dose, Starting on Sat01/08/17 at 0837, Until Sat01/08/17 at 1206, for discomfort with PIV insertion, Day of Surgery (Day of Procedure), Routine midazolam (PF) (VERSED) 1 mg/mL multi-dose injection 0.5-2 mg 0.5-2 mg, Intravenous, EVERY 5 MIN PRN, Starting on Sat01/08/17 at 0837, Until Sat01/08/17 at 1206, Sleep, Anxiety, Hold for delirium/agitation. (Maximum dose 5 mg)., Intra-Operative (Intra-Procedure), Routine 09 (Given - Provid er: Gracy Garcias RN)09 (Given - Provider: Gracy Garcias RN) naloxone (NARCAN) injection 0.1 mg 0.1 mg, Intravenous, EVERY 2 MIN PRN, Starting on Sat01/08/17 at 0837, Until Sat01/08/17 at 1206, Opioid Reversal, Opiate induced oversedation or respiratory depression. (maximum dose of 0.8 mg), Intra-Operative (Intra-Procedure), Routine sodium chloride 0.9 % flush 5-20 mL 5-20 mL, Intravenous, EVERY 1 MIN PRN, Starting on Sat01/08/17 at 0837, Until Sat01/08/17 at 1206, flush, Flush pertains to all indwelling lines. Flush per protocol found in the job aid using the link provided on this medication record., Day of Surgery (Day of Procedure), Routine No Frequency Medication Order 01/06/2017 01/07/2017 01/08/2017 heparin, porcine (PF) 1,000 unit/mL injection 1 dose, Starting on Sat01/08/17 at 0909, Until Sat01/08/17 at 1206, GRACY RHODES I.: cabinet override 0915 (Due) lidocaine (PF) (XYLOCAINE) 10 mg/mL (1 %) injection 1 dose, Starting on Sat01/08/17 at 0909, Until Sat01/08/17 at 1206, GRACY RHODES I.: cabinet override 0915 (Due) documented in this encounter Care Teams Automobile Parts Assembler Relationship Specialty Start Date End Date Julia Chatterjee MD Sushant [address] DR [facility] [address] [place] [address] PCP - General 01/31/10 documented as of this encounter
--- OUTSIDE RECORDS SUMMARY | 2023-10-22 02:50 | XMS_ITS | Encounter Summary ---
Author Organization [facility] [place] [address] Care Team Providers Care Supervisor Poultry Hatchery Name Role Phone Julia Chatterjee MD Primary Care Provider [phone] Encounter Details Date Type Department Care Team (Late Contact Info) Description 08/11/2019 Ancillary Procedure [place] [address] Dakotah Juárez MD [facility] [place] [address] Social History Tobacco Use Types Packs/Day Years [...] 1:00 PM EST Office Visit Hematology/Oncology at [address] [phone] Lee Ann Jay MD [facility] [address] [place] [address] Leit Anderson, HOME THEATER INSTALLER [facility] [place] [address] documented as of this encounter Procedures Procedure Name Priority Date/Time Associated Diagnosis Comments FILM LIBRARY STORAGE ONLY CT ABDOMEN AND PELVIS Routine 08/11/2019 12:00 AM EDT documented in this encounter Results * Film Library- Storage Only CT Abdomen & Pelvis (08/11/2019 12:00 AM EDT) Narrative AMA - 08/13/2019 12:51 PM EDT This exam is auto-finalizing. It's purpose is for storage only. Dakotah Juárez MD IMG FILM LIBRARY ORD ERABLES Performing Organization Address City/State/[facility] Co de Phone Number [place], [place] documented in this encounter Visit Diagnoses Not on filedocumented in this encounter Care Teams Supervisor Poultry Hatchery Relationship Specialty Start Date End Date Julia Chatterjee MD S[address] [place] [address] PCP - General 01/31/10 documented as of this encounter
--- OUTSIDE RECORDS SUMMARY | 2023-10-22 02:50 | XMS_ITS | Encounter Summary ---
Author Organization [facility] [place] [address] Care Team Providers Care Pot Runner Name Role Phone Julia Chatterjee MD Primary Care Provider [phone] Reason for Visit * Reason Onset Date Comments Fever 08/25/2019 Encounter Details Date Type Department Care Team (Late st Contact Info) Description 08/25/2019 Telephone Hematology/Oncology at [address] [phone] Vicky Madrigal RN Fever Social History Tobacco Use Types Packs/Day Years [...] Telephone Encounter - Vicky Madrigal RN - 08/25/2019 8:58 AM EDT Leti Parry called to report she woke up with chills this morning and checked her temp which unl562.3F. She reports she was discharged from [facility] last Wednesday 08/16 where she was treated for bacteremia/sepsis and colitis. She is currently on oral ABT Cipro and last day was today. She also reports she feels dehydrated. She was advised to go to [facility] ED for evaluation. Report called to [facility] ED rosana cagle onocolgy team updated via this note. documented in this encounter Plan of Treatment Upcoming Encounters Date Type Department Care Team (Late st Contact Info) Description 04/15/2024 1:00 PM EST Office Visit Hematology/Oncology at [address] [phone] Lee Ann Jay MD [facility] [address] [place] [address] Leti Anderson APRN [facility] [place] [address] documented as of this encounter Visit Diagnoses Not on filedocumented in this encounter Care Teams Pot Runner Relationship Specialty Start Date End Date Julia Chatterjee MD [facility] [address] [place] [address] PCP - General 01/31/10 documented as of this encounter
--- OUTSIDE RECORDS SUMMARY | 2023-10-22 02:50 | XMS_ITS | Encounter Summary ---
Author Organization [facility] Address [facility] [place] [address] Care Team Providers Care Post Tensioning Ironworker Name Role Phone Julia Chatterjee MD Primary Care Provider [phone] Encounter Details Date Type Department Care Team (Late st Contact Info) Description 03/20/2017 2:30 PM EST Office Visit Hematology/Oncology at [address] [phone] Lee Ann Jay MD [facility] [address] H[place]ATOLOG[place] [address] Neutropenia, unspecified type Social History Tobacco Use [...] Sign Reading Time Taken Comments Blood Pressure 132/76 03/20/2017 2:34 PM EST Pulse 72 03/20/2017 2:34 PM EST Temperature 36.8 ??C (98.2 ??F) 03/20/2017 2:34 PM ES T Respiratory Rate 16 03/20/2017 2:34 PM EST Oxygen Saturation 99% 03/20/2017 2:34 PM EST Inhaled Oxygen Concentration - - Weight 67.6 kg (149 lb) 03/20/2017 2:34 PM EST Height 160 cm (5' 2.99) 03/20/2017 2:34 PM EST Body Mass Index 26.4 03/20/2017 2:34 PM EST documented in this encounter Progress Notes * Lee Ann Jay MD - 03/20/2017 2:30 PM EST Images from the original note were not included. Hematology/Oncology New Patient Note Patient ID: Leti Parry Requesting Provider: No att. providers found Primary Care Provider: Julia Chatterjee MD Patient Active Problem List Diagnosis ??? Ulcerative colitis Diagnosed around 2011. Worked with hand i blocker with resolution of symptoms food based supplements [...] flow ) are being pursued at the [facility]. Should ??cytopenias persist , it may [...] positive in Oct 2016. Leti returns today for follow up . She states that she has talked to her sisters and their counts are on the low end of normal as well. Peripheral smear: many of he lymphocytes are large granular lymphocytes. Date wbc anc hgb plt b12 folate 07/2011 4.4 2.2 13.4 222 640 14 05/2106 1.81 13.4 162 12/2016 2.0 0.21 13.3 183 03/19/17 2.2 0.29 13.7 209 Review of Systems: Constitutional: No fevers/chills. Denies [...] ASPIRATION W/BX THROUGH SAME INCISION/SITE Right 01/08/2017 ([facility]) BONE MARROW ASP PERFORMED W/BX THRU BX INCISION (WRVU 0.16) performed by Lee Ann Jay MD at [facility] ??? PRO BONE MARROW BX, NEEDLE/TROCAR Right 01/08/2017 ([facility]) BONE MARROW,BIOPSY (WRVU 1.37) performed by Lee Ann Jay MD at [facility] ??? PRO COLONOSCOPY, BIOPSY 07/05/2011 COLONOSCOPY FLEXIBLE, WITH BX performed by MARY CASTRO at [facility] ??? PRO COLONOSCOPY, REMV LESN, SNARE 07/05/2011 COLONOSCOPY, POLYPECTOMY, REMOVAL LESION BY SNARE performed by MARY CASTRO at [facility] Medications; Current Outpatient Prescriptions on File [...] infusion 1,000 mL Intravenous Continuous Radha Cooper, JAYLEN Allergies: Allergies Allergen Reactions ??? Benzalkonium Chloride Family History: Father- 87, healthy Mother- 83, healthy 4 brothers and 2 sisters all healthy; she is told that her sisters also have low white counts. Social History: Lives in [facility]. . 1 son 38 years old- healthy. 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 Likes to bike in [place] w/ her . Social History Substance Use Topics ??? Smoking status: Never Smoker ??? Smokeless tobacco: None ??? Alcohol use 1 shot of tequila few times a week Physical Examination Vitals: Temp: [36.8 ??C (98.2 ??F)] Heart Rate: [72] BP: (132)/(76) Resp: [16] SpO2: [99 %] General: Well appearing, in NAD Labs: date wbc anc hgb plt 07/09/16 2.1 0.64 13.8 211 08/03/16 2.65 0.71 13.7 199 10/25/16 2.53 0.510 13.6 181 DINO positive 01/08/17 2..0 0.21 13.3 183 BMBx done 03/19/17 2.2 0.29 13.7 209 STAT3 negative HEMEPATH: DIAGNOSIS 1. Normocellular marrow with normal [...] are being pursued at the [facility]. Should ??cytopenias persist , it may [...] receptor gene rearrangement detected. Radiology: US at [facility] 11/2016. Liver 14.5 cm. Spleen 8cm. Assessment and Recommendations: 66 y.o. Healthy female who has been referred to us for leukopenia. She has had leukopenia since 2007 with normal hemoglobin and platelet. She has no symptoms- no increased frequency of infections. 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 She has been working with a hand i blocker who started her on selenium and zinc and about a dozen other supplements. Counts are a bit higher so we will see. Plans Examiner has been helping her with bowel issues. These are better w/ diet adjustments. Diet changes have helped her UC and GI symptoms. Of note, she is on multiple naturopathic medications through her emergency vehicle technician - mostly to help w/ herGI [...] intend to stay on them for long-term. She is due for a colonoscopy. This is in f/u to a work up for irrritable bowel syndrome. We had discussed a trial of GCSF to see if it raises the ANC and would make it safe for colo. She would prefernot to do the colo now and has postponed it. 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 Stat 3 testing was subsequentlynegative. 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 Explained the diagnosis of LGL and how [...] She is due for colonoscopy. Therefore I wanted to do a Neupogen challenge to be sure that we can temporarily increase the white count and ANC to keep her safe. Today we discussed my recommendation for G-CSF challenge. I explained the G-CSF is a natural growth stimulant for her white cells. We have reproduced the same molecule in the lab, and can administer it subcutaneously. Last 24 hours in the body. It affects only the granulocytes or neutrophils, does not affect the lymphocytes (not her LGL). I recommend the challenge so that we can demonstrate that she can mount a good myeloid response should she need it. I have used Neupogen/G-CSF for patients who are getting elective procedures such as colonoscopy or elective surgery. It is also reassuring to know if her ANC response to Neupogen so that if she were ever to get in a serious accident or need urgent surgery we know we can rely on it for a good response. She understood, but declined the test today. She feels that she does not want to do anything else to her body at this time. Plan: ?? We will continue to follow her every 6 months with a CBC only ?? Antigranulocyte ab -I do not see that this test was ever sent out. Given recent diagnosis of LGL, no longer necessary. ?? US at [facility] - listed above ?? BMBx - listed above I discussed all of the above with the patient and all of her questions were answered. Support and counseling given as appropriate. This note was written or modified using [employer] voice recognition software. The final note was screened for mistakes. Please excuse any remaining errors. ?? documented in this encounter Plan of Treatment Upcoming Encounters Date Type Department Care Team (Late st Contact Info) Description 04/15/2024 1:00 PM EST Office Visit Hematology/Oncology at [address] [phone] Lee Ann Jay MD [facility] [address] [place]OLOG[place] [address] Leti Anderson APRN [facility] [place] [address] documented as of this encounter Visit Diagnoses Diagnosis Neutropenia, unspecified type documented in this encounter Care Teams Post Tensioning Ironworker Relationship Specialty Start Date End Date Julia Chatterjee MD [facility] [address] [place] [address] PCP - General 01/31/10 documented as of this encounter
--- OUTSIDE RECORDS SUMMARY | 2023-10-22 02:50 | XMS_ITS | Encounter Summary ---
Author Organization [facility] [place] [address] Care Team Providers Care Fixed Income Portfolio Manager Name Role Phone Julia Chatterjee MD Primary Care Provider Encounter Details Date Type Department Care Team (Late Contact Info) Description 09/01/2019 8:00 PM EDT Ancillary Procedure [place] [phone] Social History Tobacco Use Types Packs/Day Years [...] PM EST Office Visit Hematology/Oncology at [address] [phone] Lee [address] [facility] [address] HEMATOLOGY [place] [address] Leti Anderson, COMPOUNDING PHARMACY TECHNICIAN [facility] HEMATOLOGY [place] [address] documented as of this encounter Procedures Procedure Name Priority Date/Time Associated Diagnosis Comments FILM LIBRARY STORAGE ONLY CT ABDOMEN AND PELVIS STAT 09/01/2019 7:57 PM EDT documented in this encounter Results * Film Library- Storage Only CT Abdomen & Pelvis (09/01/2019 7:57 PM EDT) Narrative CARIDAD SERRATO - 09/01/2019 7:57 PM EDT This exam is auto-finalizing. It's purpose is for storage only. L Inder Oliveros MD IMG FILM LIBRARY ORD ERABLES Performing Organization Address City/State/[facility] Co de Phone Number [place], [place] documented in this encounter Visit Diagnoses Not on filedocumented in this encounter Care Teams Fixed Income Portfolio Manager Relationship Specialty Start Date End Date Julia Chatterjee MD [address] [place] [address] PCP - General 01/31/10 documented as of this encounter
--- OUTSIDE RECORDS SUMMARY | 2023-10-22 02:50 | XMS_ITS | Encounter Summary ---
Author Organization [facility] [place] [address] Care Team Providers Care Systems Requirements Planner Name Role Phone Julia Chatterjee MD Primary Care Provider [phone] Encounter Details Date Type Department Care Team (Late Contact Info) Description 08/23/2017 Orders Only Hematology/Oncology at [address] [phone] Mera Cintron RN Neutropenia, unspecified type; Large granular lymphocyte [...] 1:00 PM EST Office Visit Hematology/Oncology at [address] [phone] [address] [facility] DR HEMATOLOGY [place] [address] Leti Anderson, CAMPUS PRESIDENT 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
--- OUTSIDE RECORDS SUMMARY | 2023-10-22 02:50 | XMS_ITS | Encounter Summary ---
Author Organization [facility] [place] [address] Care Team Providers Care Wheelage Clerk Name Role Phone Julia Chatterjee MD Primary Care Provider [phone] Reason for Visit * Reason Onset Date Comments Labs Only 10/17/2017 lab criticals Encounter Details Date Type Department Care Team (Late Contact Info) Description 10/17/2017 Telephone Hematology Oncology at [address] [phone] Crystal Dumas RN Labs Only (lab criticals) Social History Tobacco Use Types Packs/Day Years [...] encounter Miscellaneous Notes * Telephone Encounter - Crystal Dumas RN - 10/17/2017 9:53 AM EDT Criticals called from [facility] laboratory, results communicated to Dr. Jay and entered in externalresults documented in this encounter Plan of Treatment Upcoming Encounters Date Type Department Care Team (Late Contact Info) Description 04/15/2024 1:00 PM EST Office Visit Hematology/Oncology at [address] [phone] [address] [facility] HEMATOLOGY [place] [address] [facility] HEMATOLOGY [place] [address] documented as of this encounter Procedures Procedure Name Priority Date/Time Associated Diagnosis Comments CBC (WITH DIFF) Routine 10/17/2017 documented in this encounter Results * CBC (with Diff) (10/17/2017) White Blood Cell 1.92 Hemoglobin 13.4 Hematocrit 41.2 Platelet 195 ANC 0.25 Blood specimen (specimen) 10/17/2017 Historical Provider HEMATOLOGY ORDERA BLES documented in this encounter Visit Diagnoses Not on filedocumented in this encounter Care Teams Wheelage Clerk Relationship Specialty Start Date End Date Julia Chatterjee MD [address] [place] [address] PCP - General 01/31/10 documented as of this encounter
--- OUTSIDE RECORDS SUMMARY | 2023-10-22 02:50 | XMS_ITS | Encounter Summary ---
Author Organization [facility] Address [facility] [place] [address] Care Team Providers Care Sleever Name Role Phone Julia Chatterjee MD Primary Care Provider [phone] Encounter Details Date Type Department Care Team (Late st Contact Info) Description 10/23/2017 1:00 PM EDT Office Visit Hematology/Oncology at [address] [phone] Lee Ann Jay MD [facility] DR [place] [address] Neutropenia, unspecified type Social History Tobacco Use [...] Sign Reading Time Taken Comments Blood Pressure 115/66 10/23/2017 1:03 PM EDT Pulse 64 10/23/2017 1:03 PM EDT Temperature 36.6 ??C (97.9 ??F) 10/23/2017 1:03 PM ED T Respiratory Rate 18 10/23/2017 1:03 PM EDT Oxygen Saturation 97% 10/23/2017 1:03 PM EDT Inhaled Oxygen Concentration - - Weight 64.5 kg (142 lb 4.8 oz) 10/23/2017 1:03 P M EDT Height 154.9 cm (5' 1) 10/23/2017 1:03 PM EDT Body Mass Index 26.89 10/23/2017 1:03 PM EDT documented in this encounter Progress Notes * Lee Ann Jay MD - 10/23/2017 1:00 PM EDT Images from the original note were not included. Hematology/Oncology New Patient Note Patient ID: Leti Parry Requesting Provider: No att. providers found Primary Care Provider: Julia Chatterjee MD Patient Active Problem List Diagnosis ??? Ulcerative colitis Diagnosed around 2011. 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 Should ??cytopenias persist , it may [...] Her DINO was positive in Oct 2016. Busy swimming and cycling. Back from [place] with family - nice vacation. Retired! She states that she has talked to [...] performed by Lee Ann Jay MD at [facility] ??? PRO BONE MARROW BX, NEEDLE/TROCAR Right 01/08/2017 ([facility] MSURG) BONE MARROW,BIOPSY (WRVU 1.37) performed by Lee Ann Jay MD at [facility] ??? PRO COLONOSCOPY, BIOPSY 07/05/2011 COLONOSCOPY FLEXIBLE, WITH BX performed by MARY CASTRO at [facility] ??? PRO COLONOSCOPY, REMV TEJASN, SNARE 07/05/2011 COLONOSCOPY, POLYPECTOMY, REMOVAL LESION BY SNARE performed by MARY CASTRO at [facility] Medications; Current Outpatient Prescriptions on File Prior to Visit Medication Sig Dispense Refill ??? ascorbic acid, vitamin C, (VITAMIN C) 500 mg Tablet Take 500 mg by mouth daily. ??? UNKNOWN TO PATIENT Take 1 tablet by mouth daily. Reported on 07/09/2016 Indications: Drenatrophinfor adrenal support ??? GLUCOSAMINE HCL/CHONDRO TRIVEDI A (GLUCOSAMINE-CHONDROITIN ORAL) (Patient not taking: No sig reported) ??? ERGOCALCIFEROL, VITAMIN D2, (VITAMIN D ORAL) (Patient not taking: No sig reported) Current Facility-Administered Medications on File Prior to [...] low white counts. Social History: Lives in [facility]. . 1 son 38 years old- healthy. 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 Likes to bike in [place] w/ her . Social History Substance Use Topics ??? Smoking status: Never Smoker ??? Smokeless tobacco: None ??? Alcohol use 1 shot of tequila few times a week Physical Examination Vitals: Temp: [36.6 ??C (97.9 ??F)] Heart Rate: [64] BP: (115)/(66) Resp: [18] SpO2: [97 %] General: Well appearing, in [...] flow ) are being pursued at the [facility]. Should ??cytopenias persist , it may be [...] receptor gene rearrangement detected. Radiology: US at [facility] 11/2016. Liver 14.5 cm. Spleen 8cm. Assessment and Recommendations: 66 y.o. Healthy female who has been referred to us for leukopenia. She has had leukopenia since 2007 with normal hemoglobin and platelet. She has no symptoms- no increased frequency of infections. 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 She has been working with a mobile heavy equipment operator who started her on selenium and zinc and about a dozen other supplements. Counts are a bit higher so we will see. Shell[employer] has been helping her with bowel issues. These are better w/ diet adjustments. Diet changes have helped her UC and GI symptoms. Of note, she is on multiple naturopathic medications through her director print - mostly to help w/ herGI tract. [...] oral methotrexate which controls the disease nicely. Mar 2017 discussion: She was due for colonoscopy. Therefore I wanted to do a Neupogen challenge to be sure that we can temporarily increase the white count and ANC to keep her safe. Today we discussed my recommendation for G-CSF challenge. I explained the G-CSF is a natural growth stimulant for herwhite cells. We have reproduced the same molecule in the lab, and can administer it subcutaneously.Last 24 hours in the body. It affects [...] good response. She understood, but declined the test. She feels that shedoes not want to do anything else to her body at this time. Plan: ?? I will see Leti again in about 9 mos given her stability and lack of symptoms. I discussed all of the above with the patient and all of her questions were answered. Support and counseling given as appropriate. This note was written or modified using [employer] voice recognition software. The final note was screened for mistakes. Please excuse any remaining errors. documented in this encounter Plan of Treatment Upcoming Encounters Date Type Department Care Team (Late st Contact Info) Description 04/15/2024 1:00 PM EST Office Visit Hematology/Oncology at [address] [phone] Lee Ann Jay MD [facility] HEMATOLOGY [place] [address] Leti Anderson APRN [facility] HEMATOLOGY [place] [address] documented as of this encounter Procedures Procedure Name Priority Date/Time Associated Diagnosis Comments LAB SCAN 10/17/2017 12:00 AM EDT documented in this encounter Results * SCAN DOC: LAB (10/17/2017 12:00 AM EDT) Narrative 10/17/2017 12:00 AM EDT Ordered by an unspecified provider. Scanning Provider MEDIA MGR SCAN EXT O RDR/RSLT documented in this encounter Visit Diagnoses Diagnosis Neutropenia, unspecified type documented in this encounter Care Teams Sleever Relationship Specialty Start Date End Date Julia Chatterjee MD [facility] [address] [place] [address] PCP - General 01/31/10 documented as of this encounter
--- OUTSIDE RECORDS SUMMARY | 2023-10-22 02:50 | XMS_ITS | Encounter Summary ---
Author Organization [facility] [place] [address] Care Team Providers Care Stage Builder Name Role Phone Julia Chatterjee MD Primary Care Provider [phone] Reason for Visit * Reason Onset Date Comments Follow-up 08/13/2019 Encounter Details Date Type Department Care Team (Late Contact Info) Description 08/13/2019 Telephone Hematology/Oncology at [address] [phone] Mera Cintron RN Follow-up Social History Tobacco Use Types Packs/Day Years [...] Telephone Encounter - Mera Cintron RN - 08/13/2019 9:59 AM EDT Spoke with kushal henry nurse at [facility] where pt is at present. Let her know per Dr. Jay they should give neupogen 480 mcg SQ daily prn ??for ANC less than 1000 if she is having a colitis flair. Kushal agrees with plan and will let hospitalist know. ?? documented in this encounter Plan of Treatment Upcoming Encounters Date Type Department Care Team (Late Contact Info) Description 04/15/2024 1:00 PM EST Office Visit Hematology/Oncology at [address] [phone] Lee Ann Jay MD [facility] [address] [place] [address] Leti Anderson APRN [facility] [place] [address] documented as of this encounter Visit Diagnoses Not on filedocumented in this encounter Care Teams Stage Builder Relationship Specialty Start Date End Date Julia Chatterjee MD [facility] [address] [facility] 1 [place] [address] PCP - General 01/31/10 documented as of this encounter
--- OUTSIDE RECORDS SUMMARY | 2023-10-22 02:51 | XMS_ITS | Encounter Summary ---
Author Organization [facility] Address [address] [place] [address] Care Team Providers Care Box Bender Name Role Phone Julia Chatterjee MD Primary Care Provider [phone] Encounter Details Date Type Department Care Team (Late st Contact Info) Description 08/13/2019 Lab Requisition [facility] Pathology & Laboratory Medicine - [address] [address] Alicia Hayes, DO [address] [place], [place] [id number] Encounter for other general examination Social History Tobacco Use Types Packs/Day Years Used Date Smoking Tobacco: Never Assessed Sex and Gender Information Value Date Recorded Sex Assigned at Not on file Gender Identity Not on file Sexual Orientation Not on file documented as of this encounter Plan of Treatment Not on file documented as of this encounter Procedures Procedure Name Priority Date/Time Associated Diagnosis Comments SURGICAL PATHOLOGY Today 08/13/2019 11 :56 EDT Encounter for other general examination documented in this encounter Results * SURGICAL PATHOLOGY (08/13/2019 11:56 EDT) Final Diagnosis A. 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 See comment. - Negative for dysplasia. 08/17/2019 8:19 EDT [facility] at 0819 Attestation By the signature below, the attending physician certifies that they have 1) personally conducted a gross and/or microscopic examination of the described specimen(s), and/or personally interpreted the results of laboratory testing of the described specimen(s), and 2) personally rendered or confirmed the above diagnosis. 08/17/2019 8:19 [facility] at 0819 Diagnosis Comment The histological features would be compatible with active idiopathic inflammatory bowel disease in the proper clinical setting. 08/17/2019 8:19 EDT [facility] Clinical History Colitis, fever, abnormal CT 08/17/2019 8:19 T [facility] Gross Description A. Received in formalin labelled with proper patient identification (initials L, D) and rectal Bxs are three ford-red irregular tissues ranging from 0.3 x 0.1 x 0.1 cm to 0.4 x 0.2 x 0.2 cm. Entirely submitted in A1. Jihan Duckworth 08/13/2019 16:23 08/17/2019 8:19 EDT [facility] Scanned Images 08/17/2019 8:19 T [facility] Tissue SPECIMEN FROM RECTUM / Unknown 08/13/2019 11:56 EDT 08/13/2019 16:09 EDT Alicia Hayes DO PATHOLOGY ORDERABLES Performing Organization Address City/State/[place] Co de Phone Number [facility] [address] [place] [address] documented in this encounter Visit Diagnoses Diagnosis Encounter for other general examination documented in this encounter Care Teams Box Bender Relationship Specialty Start Date End Date Julia Chatterjee MD [address] [place] [phone] PCP - General 08/13/19 documented as of this encounter
--- OUTSIDE RECORDS SUMMARY | 2023-10-22 02:51 | XMS_ITS | Encounter Summary ---
Author Organization [facility] Address [facility] [place] [address] Care Team Providers Care Assurance Senior Manager Insurance Name Role Phone Julia Chatterjee MD Primary Care Provider [phone] Encounter Details Date Type Department Care Team (Late Contact Info) Description 11/07/2016 Orders Only Hematology/Oncology at [address] [phone] Radha Cooper, [facility] [place] [address] Social History Tobacco Use Types Packs/Day Years [...] PM EST Office Visit Hematology/Oncology at [address] [phone] Lee Ann Jay MD [facility] [place] [address] Leti Anderson, COORDINATOR SKILL TRAINING PROGRAM [facility] [place] [address] Scheduled Orders Name Type Priority Associated Diagnoses Orde r Schedule ([facility] MSURG)BONE MARROW ASP PERFORMED W/BX THRU BX INCISION Procedures Routine One Time f or 1 Occurrences starting 11/07/2016 until 11/07/2016 ([facility] MSURG) UNILAT BONE MARROW BIOSPY Procedures Routine One Time for 1 Occurrences starting 11/07/2016 until 11/07/2016 documented as of this encounter Visit Diagnoses Not on filedocumented in this encounter Care Teams Assurance Senior Manager Insurance Relationship Specialty Start Date End Date Julia Chatterjee MD [facility] [address] [place] [address] PCP - General 01/31/10 documented as of this encounter
--- OUTSIDE RECORDS SUMMARY | 2023-10-22 02:51 | XMS_ITS | Encounter Summary ---
Author Organization [facility] Address [facility] [place] [address] Care Team Providers Care Baggage Agent Supervisor Name Role Phone Julia Chatterjee MD Primary Care Provider [phone] Encounter Details Date Type Department Care Team (Late st Contact Info) Description 07/18/2011 [place] [phone] Ana Felton, RN Social History Tobacco Use Types Packs/Day Years Used Date Smoking Tobacco: Never Alcohol Use Standard Drinks/Week Comments Yes 1 (1 standard drink = 0.6 oz pur e alcohol) Sex and Gender Information Value Date Recorded Sex Assigned at Not on file Gender Identity Not on file Sexual Orientation Not on file documented as of this encounter Miscellaneous Notes * Telephone Encounter - Ayaz Nelson MD - 07/18/2011 12:31 PM EDT Agree with what you told her * Telephone Encounter - Ana Rocha RN - 07/18/2011 9:57 AM EDT Leti called reporting that she has a temperature of 101.8F and that her shoulders ache. Took one Aleve last night with some relief. Taking Rowasa enemas per Dr Nelson. Moving bowels about every 2 days now, some blood noted, but normal for her. Encouraged pt to take Tylenol instead of Aleve. Drink plenty of fluids. She will call with an update tomorrow. Will review with Dr Nelson documented in this encounter Plan of Treatment Upcoming Encounters Date Type Department Care Team (Late st Contact Info) Description 04/15/2024 1:00 PM EST Office Visit Hematology/Oncology at [address] [phone] Lee Ann Jay MD [facility] DR HEMATOLOGY [place] [address] Leti Anderson APRN [facility] HEMATOLOGY [place] [address] documented as of this encounter Visit Diagnoses Not on filedocumented in this encounter Care Teams Baggage Agent Supervisor Relationship Specialty Start Date End Date Julia Chatterjee MD [facility] [address] [place] [address] PCP - General 01/31/10 documented as of this encounter
--- OUTSIDE RECORDS SUMMARY | 2023-10-22 02:51 | XMS_ITS | Encounter Summary ---
Author Organization [facility] Address [address] [place] [address] Care Team Providers Care Account Services Coordinator Name Role Phone Unknown, Provider Primary Care Provider [phone] Julia Chatterjee MD Primary Care Provider [phone] Encounter Details Date Type Department Care Team (Late st Contact Info) Description 08/11/2019 Lab Requisition [facility] Pathology & Laboratory Medicine - [facility] [address] [place] [address] Outr Resulting Lab, Provider Social History Tobacco Use Types Packs/Day Years Used Date Smoking Tobacco: Never Assessed Sex and Gender Information Value Date Recorded Sex Assigned at Not on file Gender Identity Not on file Sexual Orientation Not on file documented as of this encounter Plan of Treatment Not on file documented as of this encounter Procedures Procedure Name Priority Date/Time Associated Diagnosis Comments ZZCOVID-19 TEST [facility] PCR Today 08/11/2019 12:10 EDT COVID-19 TESTING Routine 08/11/2019 12:1 0 EDT documented in this encounter Results * COVID-19 TEST [facility] PCR (08/11/2019 12:10 EDT) Swab ENTIRE NASOPHARYNX / Unknown 08/11/2019 12:10 EDT 08/11/2019 16:00 EDT Provider Outr Resulting Lab MICROBIOLOGY - GENERAL ORDERABLES [facility] [address] [place] [address] * COVID-19 TESTING (08/11/2019 12:10 EDT) COVID-19 rt-PCR Result Negative Negative 08/11/2019 20:53 EDT [facility] Comment: This test has not been FDA cleared or approved. This test has been authorized by FDA under an EUA for use by authorized laboratories. This test has been authorized only for detection of nucleic acid from 2019-nCoV, not for any other viruses or pathogens. This test is only authorized for the duration of the declaration that circumstances exist justifying the authorization of emergency use of in vitro diagnostic tests for detection and/or diagnosis of 2019-nCoV under section 564(b)(1) of Act, 21 U.S.C ?? 360bbb-3(b) (1), unless the authorization is terminated or revoked sooner. Negative results do not preclude 2019-nCoV infection and should not be used as the sole basis for treatment or other patient management decisions. Negative results must be combined with clinical observations, patient history, and epidemiological information. Performed on the AeroFSher Fusion instrument Performing Lab [place] [facility] 08/11/2019 20:53 EDT [facility] Swab ENTIRE NASOPHARYNX / Unknown 08/11/2019 12:10 EDT 08/11/2019 16:00 EDT Provider Outr Resulting Lab MICROBIOLOGY - GENERAL ORDERABLES [facility] [address] [place] [address] documented in this encounter Visit Diagnoses Not on filedocumented in this encounter Care Teams Account Services Coordinator Relationship Specialty Start Date End Date Unknown, Provider, PCP - General 01/14/15 08/12/19 Julia Chatterjee MD [address] [place] [phone] PCP - General 08/13/19 documented as of this encounter
--- OUTSIDE RECORDS SUMMARY | 2023-10-22 02:51 | XMS_ITS | Referral Summary ---
Author Organization [facility] Address [address] [place] [address] Care Team Providers Care Test Baker Name Role Phone Julia Chatterjee MD Primary Care Provider [phone] Social History Tobacco Use Types Packs/Day Years Used Date Smoking Tobacco: Never Assessed Interpersonal Safety Answer Date Record ed Physically Hurt Never 10/11/2019 Verbally Threaten Not on file 10/11/2019 Sex and Gender Information Value Date Recorded Sex Assigned at Not on file Gender Identity Not on file Sexual Orientation Not on file Plan of Treatment Not on file Procedures Procedure Name Priority Date/Time Associated Diagnosis Comments HEPATITIS C AB W REFLEX TO HCV RNA BY PCR Routine 01/08/2022 7:39 EDT from Last 3 Months or Most Recently Relevant to Health Maintenance Results * HEPATITIS C AB W REFLEX TO HCV RNA BY PCR (01/08/2022 7:39 EDT) Hep C Antibody Negative Negative 01/09/2022 20:42 EDT [facility] Blood VENOUS BLOOD / Unknown 01/08/2022 7:39 EDT 01/09/2022 17:25 EDT Provider Outr Resulting Lab CHEMISTRY & BLOOD GAS ORDERABLES [facility] [address] [place] [address] from Last 3 Months or Most Recently Relevant to Health Maintenance Care Teams Test Baker Relationship Specialty Start Date End Date Julia Chatterjee MD [address] [facility] [place] [phone] PCP - General 08/13/19
--- OUTSIDE RECORDS SUMMARY | 2023-10-22 02:51 | XMS_ITS | Encounter Summary ---
Author Organization [facility] Address [address] [place] [address] Care Team Providers Care Set Up Mold Technician Name Role Phone Julia Chatterjee MD Primary Care Provider [phone] Encounter Details Date Type Department Care Team (Late st Contact Info) Description 08/16/2019 Lab Requisition [facility] Pathology & Laboratory Medicine - [address] [address] Donnie Multani MD [address] [place] [id number] Social History Tobacco Use Types Packs/Day Years Used Date Smoking Tobacco: Never Assessed Sex and Gender Information Value Date Recorded Sex Assigned at Not on file Gender Identity Not on file Sexual Orientation Not on file documented as of this encounter Plan of Treatment Not on file documented as of this encounter Procedures Procedure Name Priority Date/Time Associated Diagnosis Comments IDENTIFY ANAEROBE Today 08/12/2019 14: 20 EDT documented in this encounter Results * (ABNORMAL) IDENTIFY ANAEROBE (08/12/2019 14:20 EDT) Organism ID Streptococcus constellatus (S. anginosus group)(A) 08/18/2019 11:21 EDT [facility] Organism (organism) WHOLE BLOOD / Unknown 08/12/2019 14:20 EDT 08/16/2019 17:00 EDT Donnie Multani MD MICROBIOLOGY - GENER AL ORDERABLES [facility] [address] [place] [address] documented in this encounter Visit Diagnoses Not on filedocumented in this encounter Care Teams Set Up Mold Technician Relationship Specialty Start Date End Date Julia Chatterjee MD [address] [place] [phone] PCP - General 08/13/19 documented as of this encounter
--- OUTSIDE RECORDS SUMMARY | 2023-10-22 02:51 | XMS_ITS | Encounter Summary ---
Author Organization [facility] Address [address] [place] [address] Care Team Providers Care Payroll Specialist Name Role Phone Julia Chatterjee MD Primary Care Provider [phone] Encounter Details Date Type Department Care Team (Late st Contact Info) Description 01/09/2022 Lab Requisition [facility] Pathology & Laboratory Medicine - [address] [phone] Outr Resulting Lab, Provider Social History Tobacco [...] RNA BY PCR Routine 01/08/2022 7:39 EDT documented in this encounter Results * HEPATITIS C AB W REFLEX TO HCV RNA BY PCR (01/08/2022 7:39 EDT) Hep C Antibody Negative Negative 01/09/2022 20:42 EDT [facility] Blood VENOUS BLOOD / Unknown 01/08/2022 7:39 EDT 01/09/2022 17:25 EDT Provider Outr Resulting Lab CHEMISTRY & BLOOD GAS ORDERABLES [facility] [address] [place] [address] documented in this encounter Visit Diagnoses Not on filedocumented in this encounter Care Teams Payroll Specialist Relationship Specialty Start Date End Date Julia Chatterjee MD [address] [place] [phone] PCP - General 08/13/19 documented as of this encounter
--- OUTSIDE RECORDS SUMMARY | 2023-10-22 02:51 | XMS_ITS | Clinical Summary ---
Author Organization [facility] Address [address] [place] [address] Care Team Providers Care Deck Specialist Name Role Phone Julia Chatterjee MD Primary Care Provider [phone] Social History Tobacco Use Types Packs/Day Years Used Date Smoking Tobacco: Never Assessed Interpersonal Safety Answer Date Record ed Physically Hurt Never 10/11/2019 Verbally Threaten Not on file 10/11/2019 Sex and Gender Information Value Date Recorded Sex Assigned at Not on file Gender Identity Not on file Sexual Orientation Not on file Plan of Treatment Health Maintenance Due Date Last Done Comments RSV Immunization ( o r 60+ Years) (1 - 1-dose 60+ series) 2011 Fall Risk Screening 11/28/2016 COVID-19 Vaccine ( season) 2022 Hepatitis C Screen Completed 01/08/2022 Procedures Procedure Name Priority Date/Time Associated Diagnosis Comments HEPATITIS C AB W REFLEX TO HCV RNA BY PCR Routine 01/08/2022 7:39 EDT from Last 3 Months or Most Recently Relevant to Health Maintenance Results * HEPATITIS C AB W REFLEX TO HCV RNA BY PCR (01/08/2022 7:39 EDT) Hep C Antibody Negative Negative 01/09/2022 20:42 EDT [facility] Blood VENOUS BLOOD / Unknown 01/08/2022 7:39 EDT 01/09/2022 17:25 EDT Provider Outr Resulting Lab CHEMISTRY & BLOOD GAS ORDERABLES [facility] [address] [place] [address] from Last 3 Months or Most Recently Relevant to Health Maintenance Care Teams Deck Specialist Relationship Specialty Start Date End Date Julia Chatterjee MD [address] [facility] [address] [place] [phone] PCP - General 08/13/19
--- OUTSIDE RECORDS SUMMARY | 2023-10-22 02:51 | XMS_ITS | Encounter Summary ---
Author Organization [facility] Address [facility] [place] [address] Care Team Providers Care Green Plumber Name Role Phone Julia Chatterjee MD Primary Care Provider [phone] Encounter Details Date Type Department Care Team (Late st Contact Info) Description 12/19/2016 10:00 AM EDT Office Visit Hematology/Oncology at [address] [phone] Lee Ann Jay MD [facility] [address] [place] [address] Radha Cooper, JAYLEN [facility] [address] [place] [address] Neutropenia, unspecified type Social History Tobacco Use [...] Sign Reading Time Taken Comments Blood Pressure 136/75 12/19/2016 10:07 AM EDT Pulse 55 12/19/2016 10:07 AM EDT Temperature 36.8 ??C (98.2 ??F) 12/19/2016 10:07 AM E DT Respiratory Rate 18 12/19/2016 10:07 AM EDT Oxygen Saturation 99% 12/19/2016 10:07 AM EDT Inhaled Oxygen Concentration - - Weight 67.3 kg (148 lb 6.4 oz) 12/19/2016 10:07 AM EDT Height 160 cm (5' 2.99) 12/19/2016 10:07 AM EDT copied Body Mass Index 26.29 12/19/2016 10:07 AM EDT documented in this encounter Progress Notes * Radha Cooper, WHEEL POLISHER - 12/19/2016 10:00 AM EDT Subjective: Patient ID: Leti Parry is a 66 y.o. female here for H and P prior to sedated bone marrow biopsy Patient Active Problem List Diagnosis ??? Ulcerative colitis Diagnosed around 2011. Worked with cad administrator with resolution of symptoms food based supplements [...] H/o UC but presently asymptomatic. Anti-granulocyte ab pending. Splenic imaging planned and BMBX planned. HPI Leti is doing well - she had a wonderful trip to [place] - lots of walking - up to 12 miles a day, as well as biking. She really feels very well and is without complaints. Review of Systems Constitutional: Negative. HENT: Negative. [...] clear and moist. No oropharyngeal exudate. Eyes: Conjunctivae are normal. Pupils are equal, round, and reactive to light. Neck: Normal range of motion. Neck supple. [...] She has a normal mood and affect. Normal liver and spleen U/S. Assessment and Plan: 1. Chronic leukopenia - asymptomatic. Plan for bone berkowitz biopsy for etiology. Once again reviewedbone marrow biopsy procedure with sedation. Consent is scanned. Leti Parry will return to clinic one week after biopsy to discuss results. she will call beforethen if any concerns or changes in status. documented in this encounter Plan of Treatment Upcoming Encounters Date Type Department Care Team (Late st Contact Info) Description 04/15/2024 1:00 PM EST Office Visit Hematology/Oncology at [address] [phone] Lee Ann Jay MD [facility] [address] [place] [address] Leti Anderson APRN [facility] [address] [place] [address] documented as of this encounter Visit Diagnoses Diagnosis Neutropenia, unspecified type documented in this encounter Care Teams Green Plumber Relationship Specialty Start Date End Date Julia Chatterjee MD [address] [place] [address] PCP - General 01/31/10 documented as of this encounter
--- OUTSIDE RECORDS SUMMARY | 2023-10-22 02:51 | XMS_ITS | Encounter Summary ---
Author Organization [facility] Address [facility] [place] [address] Care Team Providers Care Utility Aircrewman Name Role Phone Julia Chatterjee MD Primary Care Provider [phone] Reason for Visit * Reason Comments Follow-up Encounter Details Date Type Department Care Team (Late st Contact Info) Description 07/16/2011 10:00 AM EDT Follow-[place] [address] Ayaz Nelson MD [facility] [place] [address] Colitis (Primary Dx) Discharge Disposition: Home Social History Tobacco Use [...] Sign Reading Time Taken Comments Blood Pressure 111/66 07/16/2011 9:55 AM EDT Pulse 56 07/16/2011 9:55 AM EDT Temperature - - Respiratory Rate 20 07/16/2011 9:55 AM EDT Oxygen Saturation - - Inhaled Oxygen Concentration - - Weight 57.7 kg (127 lb 4.8 oz) 07/16/2011 9:55 A M EDT Height 160 cm (5' 3) 07/16/2011 9:55 AM EDT Body Mass Index 22.55 07/16/2011 9:55 AM EDT documented in this encounter Progress Notes * Ayaz Nelson MD - 07/16/2011 10:46 AM EDT Left sided ulcerative colitis --dx 06/20 at time of screening colonoscopy, relatively Asx -- colonoscopy 06/20Diffuse mild inflammation was found in the recto-sigmoid colon secondary to inflammatory bowel disease. This was biopsied These findings are c/w mild UC --Path: Mildly to severely active chronic proctocolitis with focal erosion. The histologic featuresare suggestive of idiopathic inflammatorybowel disease. No dysplasia is seen. Subjective: I am seeing Ms. Parry for the first time in the clinic. She was referred for a screening colonoscopy, and I found left-sided colitis last month. Prior to the colonoscopy, she began to notice the sensation of some mucus per stool and backing up and only moving her bowels every third day. I performed the colonoscopy, which showed diffuse inflammation of the rectosigmoid, but normal rest of the colon. Pathology was suggestive of inflammatory bowel disease. She had similar symptoms 20 years ago. Currently, she says she can go three days without moving her bowels. She begins to feel backed up and then has a day where she is having explosive bowel movements and is left with burning discomfort in the perianal area. Occasional blood in the stool. The stool starts out as formed, but then gets loose. She also sees a lumber cutter and is off gluten and milk. She has been told that she is lactose intolerant and is intolerant of gluten, but does not have clear-cut celiac disease. I prescribed her Rowasa enemas after the procedure, and she is not sure if these are helping at all or not. Definitely, she is moving her bowels less frequently than when I did the colonoscopy, and this is a problem. She offers no other complaints. No known history of IBD in the past. No family history of IBD. Past Medical History: Really negative. She is G1, P1. Social History: She is . 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 She has one son who has a history of Destiny's lymphoma. No significant alcohol. Physical Examination: A healthy, very fit woman in no acute distress. Lungs are clear to auscultation. Heart: Regular rate and rhythm. Abdomen: Soft, nondistended and nontender. Extremities: No edema, cyanosis or clubbing. Impression: A 60-year-old woman with new diagnosis of left-sided colitis. It was relatively asymptomatic, but now is having trouble with backing up of stool, moving her bowels every three days and then having explosive episodes. Although not typical, this is consistent with left-sided colitis and I think the enemas are helping to some degrees. She clearly needs to have better bowel evacuation, so we discussed the use of MiraLAX. We could also consider adding oral ASA drugs as we get her bowel pattern more regular. Plan: Continue her Rowasa enemas every night. 2. Add MiraLAX one glass a day; can increase it to two glasses a day, morning and evening, if she does not respond by moving her bowels more regularly. 3. Check labs today. Baseline CBC, chem. profile, TTG. 4. If her symptoms persist despite the MiraLAX, can consider adding an oral topical agent such as Lialda or balsalazide. 5. Follow up with me in six weeks and call with a phone update in two weeks. A 30-minute office new patient workup. documented in this encounter Plan of Treatment Upcoming Encounters Date Type Department Care Team (Late st Contact Info) Description 04/15/2024 1:00 PM EST Office Visit Hematology/Oncology at [address] [phone] Lee Ann Jay MD [facility] [address] H[place]AT[place] [address] Leti Anderson APRN [facility] [place] [address] documented as of this encounter Procedures Procedure Name Priority Date/Time Associated Diagnosis Comments DIFFERENTIAL, AUTOMATED Routine 07/16/2011 11:13 AM EDT TISSUE TRANSGLUTAMINASE, IGA Routine 07/16/2011 11:13 AM EDT Colitis CBC (WITH DIFF) Routine 07/16/2011 11:13 AM EDT Colitis COMPREHENSIVE METABOLIC PANEL Routine 07/16/2011 11:13 AM EDT Colitis documented in this encounter Results * DIFFERENTIAL, AUTOMATED (07/16/2011 11:13 AM EDT) Neutrophil % 50.0 34.0 - 71.0 % CERNER MILLENNIUM Neutrophil Absolute 2.20 1.50 - 6.30 x10(3)/mcL CERNER MILLENNIUM Lymph % 36.6 19.0 - 53.0 % CERNER MILLENNIUM Lymphocytes Abs 1.6 1.0 - 3.6 x10(3)/mcL CERNER MILLENNIUM Monocyte % 12.7 4.0 - 13.0 % CERNER MILLENNIUM Monocyte Abs 0.6 0.2 - 1.0 x10(3)/mcL CERNER MILLENNIUM Eos % 0.5 0.0 - 7.0 % CERNER MILLENNIUM Eosinophils Abs 0.0 0.0 - 0.5 x10(3)/mcL CERNER MILLENNIUM Basophil % 0.2 0.0 - 2.0 % CERNER MILLENNIUM Baso Absolute 0.0 0.0 - 0.2 x10(3)/mcL CERNER MILLENNIUM Immature Gran % 0.00 0.00 - 0.66 % CERNER MILLENNIUM Comment: Immature granulocytes(IG's)percentage and absolute count will include metamyelocytes, myelocytes, and promyelocytes. Blood smears from CBCs yielding IG's will be scanned manually for concordance. If this scan disagrees with the automated IG or if promyelocytes are noted, a manual differential will be performed. Immature Gran Absolute 0.00 0.00 - 0.05 x10(3)/mcL CERNER MILLENNIUM Blood specimen (specimen) 07/16/2011 11:13 AM EDT 07/16/2011 11:16 AM EDT Ayaz Nelson MD HEMATOLOGY ORDERABLE S CERNER MILLENNIUM * Tissue transglutaminase, IgA (07/16/2011 11:13 AM EDT) TTG IgA Ab <4.0 <=3.9 u/ml CERNER MILLENNIUM Comment: Result Interpretation: Negative: ?<4 U/mL Weak Positive: ??4-10 U/mL Positive: ?>10 U/mL Blood specimen (specimen) 07/16/2011 11:13 AM EDT 07/16/2011 2:23 PM EDT Narrative Resulting Agency Comment Spec In Lab Ayaz Nelson MD IMMUNOLOGY ORDERABLE S CERNER MILLENNIUM * (ABNORMAL) Comprehensive metabolic panel (non-fasting) (07/16/2011 11:13 AM EDT) Glucose 93 60 - 199 mg/dL CERNER MILLENNIUM Comment:Diabetes: >=200 mg/d L plus symptoms Blood Urea Nitrogen 14 8 - 18 mg/dL CERNER MILLENNIUM Creatinine 0.68(L) 0.70 - 1.20 mg/dL CERNER MILLENNIUM Sodium 138 135 - 145 mmol/L CERNER MILLENNIUM Potassium 4.1 3.5 - 5.0 mmol/L CERNER MILLENNIUM Comment: Please note: ??Patients with WBC >100,000 may have falsely elevated Potassium levels. ??For accurate Potassium quantification in these patients send serum separator tube (gold top) for subsequent determinations. ??Contact the Clinical Chemistry Laboratory if there are any questions. Chloride 102 98 - 107 mmol/L CERNER MILLENNIUM Carbon Dioxide 25 22 - 31 mmol/L CERNER MILLENNIUM Anion Gap 11 5 - 15 mmol/L CERNER MILLENNIUM Calcium 9.4 8.5 - 10.5 mg/dL CERNER MILLENNIUM Protein, Total 7.8 6.4 - 8.3 gm/dL CERNER MILLENNIUM Albumin 4.3 3.2 - 5.2 gm/dL CERNER MILLENNIUM Aspartate Aminotransferase 17 0 - 30 unit/L CERNER MILLENNIUM Alanine Aminotransferase 13 0 - 30 unit/L CERNER MILLENNIUM Alkaline Phosphatase 72 40 - 104 unit/L CERNER MILLENNIUM Bilirubin, Total 0.3 0.2 - 1.3 mg/dL CERNER MILLENNIUM Bilirubin, Direct 0.1 0.0 - 0.3 mg/dL CERNER MILLENNIUM Est Glomerular Filtration Rate >60 >=60 CERNER MILLENNIUM Comment: The National Kidney Disease Education Program (NKDEP) has recommended all laboratories report estimated GFR (eGFR) along with plasma creatinine measurements to assist you with recognition of early kidney disease. Caveats: ??Plasma creatinine should be at steady-state (unchanged within the past week). For patients multiply eGFR by 1.2. The MDRD equation was developed using patients between the ages of 18 and 70 years. ?? The MDRD equation has not been validated for patients < 18 years of age and should not be used to assess renal function in the pediatric population. ??The MDRD eGFR equation will also overestimate the true GFR of patients above the age of 70. ??This overestimation is variable but increases with age. At present, NKDEP does NOT recommend using the MDRD equation for drug dosing purposes and pharmacists should continue to use their current dosing methods. In addition, numerical eGFR values greater than 60 ml/min/1.73 square meters should be treated as > 60, and not an exact number due to greater inaccuracies at these higher values. Per NKDEP, they classify normal renal function as any GFR >60ml/min/1.73 square meters; chronic kidney disease when GFR <60, and renal failure when GFR <15. ??This calculation may not be valid for patients with atypical muscle mass (very lean or obese), acute renal failure, and in patients with diabetic kidney disease. References: http://nkdep.nih.gov/resources/NKDEP_Suggestn4Labs_0606_508.pdf http://www.kidney.org/professionals/kls/pdf/faq_gfr.pdf Sunday K, Albina NA, Arnulfo AK, Tripp TS, Lyndsay AD, Anthony DIMPLE. Relative performance of the MDRD and CKD-EPI equations for estimating glomerular filtration rate among patients with varied clinical presentations. Clin J Am Soc Nephrol;6:1963-72. Blood specimen (specimen) 07/16/2011 11:13 AM EDT 07/16/2011 11:16 AM EDT Narrative Resulting Agency Comment Spec In Lab Ayaz Nelson MD CHEMISTRY ORDERABLES Performing Organization Address City/[facility] Co de Phone Number CERYRN SCHULTZIUM * CBC (with Diff) (07/16/2011 11:13 AM EDT) White Blood Cell 4.4 4.0 - 10.0 x10(3)/mcL CERNER MILLENNIUM Red Blood Cell 4.65 3.93 - 5.22 x10(6)/mcL CERNER MILLENNIUM Hemoglobin 13.4 11.2 - 15.7 gm/dL CERNER MILLENNIUM Hematocrit 41.6 34.0 - 45.0 % CERNER MILLENNIUM Mean Cell Volume 89.5 79.0 - 94.0 fL CERNER MILLENNIUM Mean Cell Hemoglobin 28.8 26.6 - 32.2 pg CERNER MILLENNIUM Mean Cell Hemoglobin Concentration 32.2 32.0 - 36.5 gm/dL CERNER MILLENNIUM Platelet 222 145 - 370 x10(3)/mcL CERNER MILLENNIUM RDW Standard Deviation 43.7 35.0 - 46.0 fL CERNER MILLENNIUM RDW coefficient of variation 13.3 10.9 - 14.4 % CERNER MILLENNIUM Mean Platelet Volume 10.0 9.0 - 12.0 fL CERNER MILLENNIUM Blood specimen (specimen) 07/16/2011 11:13 AM EDT 07/16/2011 11:16 AM EDT Narrative Resulting Agency Comment Spec In Lab Ayaz Nelson MD HEMATOLOGY ORDERABLE S Performing Organization Address City/[facility] Co de Phone Number RUEL SERNA documented in this encounter Visit Diagnoses Diagnosis Colitis- Primary Other and unspecified noninfectious gastroenteritis and colitis documented in this encounter Care Teams Utility Aircrewman Relationship Specialty Start Date End Date Julia Chatterjee MD [address] [place] [address] PCP - General 01/31/10 documented as of this encounter
--- OUTSIDE RECORDS SUMMARY | 2023-10-22 02:51 | XMS_ITS | Encounter Summary ---
Author Organization Count Includes [facility] Address [facility] [place] [address] Care Team Providers Care Assistant Athletic Trainer Name Role Phone Julia Chatterjee MD Primary Care Provider [phone] Encounter Details Date Type Department Care Team (Late st Contact Info) Description 11/01/2016 Notes Only H[place] [address] Lee Ann Jay MD [facility] DR HEMATOLOGY [place] [address] Social History Tobacco Use Types Packs/Day Years Used Date Smoking Tobacco: Never Smokeless Tobacco: Never Alcohol Use Standard Drinks/Week Comments Yes 1 (1 standard drink = 0.6 oz pur e alcohol) Sex and Gender Information Value Date Recorded Sex Assigned at Not on file Gender Identity Not on file Sexual Orientation Not on file documented as of this encounter Progress Notes * Lee Ann Jay MD - 11/01/2016 10:22 AM EDT Most recent ANC of 430 noted. Nothing to do. However in reviewing chart pt had DINO drawn instead of an anti-granulocyte ab. Will ask RN to call pt and have her get the correct lab drawn prior to our next appt. Order placed. documented in this encounter Plan of Treatment Upcoming Encounters Date Type Department Care Team (Late Contact Info) Description 04/15/2024 1:00 PM EST Office Visit Hematology/Oncology at [address] [phone] Lee Ann Jay MD [facility] DR HEMATOLOGY [place] [address] Leti Anderson APRN [facility] HEMATOLOGY [place] [address] documented as of this encounter Visit Diagnoses Diagnosis Neutropenia, unspecified type documented in this encounter Care Teams Assistant Athletic Trainer Relationship Specialty Start Date End Date Julia Chatterjee MD [facility] KINA FELIZ [facility] [address] [place] [address] PCP - General 01/31/10 documented as of this encounter
--- OUTSIDE RECORDS SUMMARY | 2023-10-22 02:51 | XMS_ITS | Encounter Summary ---
Author Organization [facility] Address [address] [place] [address] Care Team Providers Care Mica Washer Gluer Name Role Phone Julia Chatterjee MD Primary Care Provider [phone] Encounter Details Date Type Department Care Team (Late st Contact Info) Description 08/14/2019 Lab Requisition [facility] Pathology & Laboratory Medicine - [address] [id number] Outr Resulting Lab, Provider Social History Tobacco [...] Procedure Name Priority Date/Time Associated Diagnosis Comments FECAL BACTERIAL PATHOGENS BY PCR Routine 08/13/2019 9:00 EDT documented in this encounter Results * FECAL BACTERIAL PATHOGENS BY PCR (08/13/2019 9:00 EDT) Salmonella PCR Negative Negative 08/15/2019 12:17 EDT [facility] Shigella/Enteroin vasive E. coli Negative Negative 08/15/2019 12:17 EDT [facility] HN LAB CAMPYLOBACTER PCR Negative Negative 08/15/2019 12:17 EDT [facility] Shiga Toxin PCR Negative Negative 0 12:17 EDT [facility] Feces SPECIMEN FROM RECTUM / Unknown 08/13/2019 9:00 EDT 08/14/2019 17:25 EDT Provider Outr Resulting Lab MICROBIOLOGY - GENERAL ORDERABLES [facility] [address] [place] [address] documented in this encounter Visit Diagnoses Not on filedocumented in this encounter Care Teams Mica Washer Gluer Relationship Specialty Start Date End Date Julia Chatterjee MD [address] [place] [phone] PCP - General 08/13/19 documented as of this encounter
--- OUTSIDE RECORDS SUMMARY | 2023-10-22 02:51 | XMS_ITS | Encounter Summary ---
Author Organization [facility] Address [address] [place] [address] Care Team Providers Care Dater Assembler Name Role Phone Unknown, Provider Primary Care Provider Encounter Details Date Type Department Care Team (Late st Contact Info) Description 01/28/2015 Results Only [facility] [phone] Julia Morales MD [address] [place] [phone] Social History Tobacco Use Types Packs/Day Years Used Date Smoking Tobacco: Never Assessed Sex and Gender Information Value Date Recorded Sex Assigned at Not on file Gender Identity Not on file Sexual Orientation Not on file documented as of this encounter Plan of Treatment Not on file documented as of this encounter Procedures Procedure Name Priority Date/Time Associated Diagnosis Comments PAP TEST- RESULT ONLY Routine 01/28/2015 0:00 EST documented in this encounter Results * PAP TEST- RESULT ONLY (01/28/2015 0:00 EST) Pathology Report: CYTOPATHOLOGY REPORT Reports generated via electronic interface contain original data; however they are lacking the format of the original report. Caution should be taken when reading/interpreti ng unformatted reports. Name: ? AN PARRY ? Accession #: ? [id number] ? : ? 1950 (Age: 64) ??F ?Collect Date: ? 01/28/2015 ? Location: ? [facility] ? Receive Date: ? 01/31/2015 ? Provider: JULIA MORALES MD Copy to: ? Final Report SPECIMEN ADEQUACY ? Satisfactory for Evaluation - assessment of transformation zone component not applicable ( e.g. atrophy, vaginal sample, hysterectomy) - scant squamous epithelial component secondary to excessive inflammation GENERAL CATEGORIZATION ? Negative for Intraepithelial Lesion or Malignancy ?? Last Menstrual Period: yrs Hormonal/Contracep tive status: None Specimen/Source: ??Pap Test, Cervix, ThinPrep Imaging System with manual evaluation Document reviewed and electronically signed by: ? SURAJ Nino(ASCP) ? Report ??Date: 02/01/2015 14:08 HPV with Pap Test ? Date Ordered: ? 02/01/2015 ? Status: ?? Signed Out ?Date Complete: ? 02/04/2015 ? By: ??System Interface ? Date Reported: ? 02/04/2015 ? Interpretation RESULT: Negative for HPV. No E6 or E7 mRNA is detected from HPV types 16,18,31,33,35, 39,45,51,52,56,58, 59,66, and 68 by tv production assistant mediated amplification. Comments Document reviewed and electronically signed by: ? System Interface ? Report date: 02/04/2015 By the signature above, the attending physician certifies that he/she has personally conducted a gross and/or microscopic examination of the described specimens and rendered or confirmed the above diagnosis. End of Report [facility] 01/28/2015 01/31/2015 Julia Morales MD PATHOLOGY ORDERABLES [facility] [address] [place] [address] documented in this encounter Visit Diagnoses Not on filedocumented in this encounter Care Teams Dater Assembler Relationship Specialty Start Date End Date Unknown, Provider, PCP - General 01/14/15 08/12/19 documented as of this encounter
--- OUTSIDE RECORDS SUMMARY | 2023-10-22 02:51 | XMS_ITS | Encounter Summary ---
Author Organization [facility] [place] [address] Care Team Providers Care Uke Driver Name Role Phone Julia Chatterjee MD Primary Care Provider [phone] Reason for Visit * Reason Onset Date Comments Medication Refill 07/05/2011 Encounter Details Date Type Department Care Team (Late Contact Info) Description 07/05/2011 Refill [place] [address] Ayaz Nelson MD [facility] [place] [address] Social History Tobacco Use Types Packs/Day Years Used Date Smoking Tobacco: Never Assessed Alcohol Use Standard Drinks/Week Comments Yes 1 [...] 1:00 PM EST Office Visit Hematology/Oncology at [address] [phone] Lee Ann Jay MD [facility] DR HEMATOLOGY [place] [address] Leti Anderson, RIPSAW OPERATOR [facility] HEMATOLOGY [place] [address] documented as of this encounter Visit Diagnoses Not on filedocumented in this encounter Care Teams Uke Driver Relationship Specialty Start Date End Date Julia Chatterjee MD [address] [facility] [address] [place] [address] PCP - General 01/31/10 documented as of this encounter
--- OUTSIDE RECORDS SUMMARY | 2023-10-22 02:51 | XMS_ITS | Encounter Summary ---
Author Organization [facility] Address [address] [place] [address] Care Team Providers Care Blanket Maker Name Role Phone Julia Chatterjee MD Primary Care Provider [phone] Encounter Details Date Type Department Care Team (Late st Contact Info) Description 09/30/2019 Lab Requisition [facility] Pathology & Laboratory Medicine - [address] [address] Outr Resulting Lab, Provider Social History Tobacco [...] Procedure Name Priority Date/Time Associated Diagnosis Comments FOLATE Routine 09/29/2019 12:13 EDT VITAMIN B12 Routine 09/29/2019 12:13 EDT documented in this encounter Results * FOLATE (09/29/2019 12:13 EDT) Folate 16.7 See Note ng/mL 10/01/2019 8:43 EDT [facility] Comment: Reference Ranges for Folate: Deficient: ?< 3.4 ng/mL Indeterminate: ??3.4 - 5.4 ng/mL Normal: ? > 5.4 ng/mL The results of this assay can be falsely elevated due to the consumption of Biotin. Blood VENOUS BLOOD / Unknown 09/29/2019 12:13 EDT 09/30/2019 21:16 EDT Provider Outr Resulting Lab CHEMISTRY & BLOOD GAS ORDERABLES Performing Organization Address City/[facility]/ZIP Co de Phone Number [facility] [address] [place] [address] * (ABNORMAL) VITAMIN B12 (09/29/2019 12:13 EDT) Vitamin B12 >2,000(H) 211 - 911 pg/mL 10/01/2019 9:19 EDT [facility] Blood VENOUS BLOOD / Unknown 09/29/2019 12:13 EDT 09/30/2019 21:16 EDT Provider Outr Resulting Lab CHEMISTRY & BLOOD GAS ORDERABLES Performing Organization Address City/[facility] Co de Phone Number [facility] [address] [place] [address] documented in this encounter Visit Diagnoses Not on filedocumented in this encounter Care Teams Blanket Maker Relationship Specialty Start Date End Date Julia Chatterjee MD [address] [place] [phone] PCP - General 08/13/19 documented as of this encounter
--- OUTSIDE RECORDS SUMMARY | 2023-10-22 02:51 | XMS_ITS | Encounter Summary ---
Author Organization [facility] Address [facility] [place] [address] Care Team Providers Care Spinner Concrete Pipe Name Role Phone Julia Chatterjee MD Primary Care Provider [phone] Encounter Details Date Type Department Care Team (Latest Contact Info) Description 07/05/2011 9:17 AM EDT - 07/05/2011 10:45 AM EDT Hospital Encounter [place] [address] Ayaz Nelson MD [facility] [place] [address] Discharge Disposition: Home Social History Tobacco Use [...] Sign Reading Time Taken Comments Blood Pressure 94/70 07/05/2011 10:45 AM EDT Pulse 59 07/05/2011 10:45 AM EDT Temperature 36.6 ??C (97.9 ??F) 07/05/2011 9:53 AM ED T Respiratory Rate 22 07/05/2011 10:45 AM EDT Oxygen Saturation 99% 07/05/2011 10:45 AM EDT Inhaled Oxygen Concentration - - Weight - - Height - - Body Mass Index - - documented in this encounter Discharge Instructions * Discharge Instructions* Clive Coronel RN - 07/05/2011 10:58 AM EDT You may have received medication before and/or during your procedure which effects judgement and reaction time. Do not drive, operate machinery, drink alcoholic beverages, or make important decisions for 24 hours. Be careful on stairs, as you may be unsteady on your feet. You may eat a regular diet as tolerated. Do not smoke if you are alone. IV site -- slight redness or tenderness is normal. You may use a warm compress. If tenderness and redness increases or foul drainage occurs please contact your M.D. Please call [phone] before 5 pm with problems, questions or concerns. After 5pm call [phone] and ask to speak with the isolation washer resolution manager. Discharge instructions reviewed with patient who expresses understanding. * Patient Instructions* Ayaz Nelson MD - 07/05/2011 10:24 AM EDT Please see Recommendations in the Provation procedure report which is documented in the procedural note in [facility]. * Attachments The following attachments cannot be sent through Care Everywhere. * COLONOSCOPY: WHAT TO EXPECT AT HOME (ZIMBABWEAN) documented in this encounter Medications at Time of Discharge Medication Sig Dispensed Refills Start Date End Date UNKNOWN TO PATIENTIndications:Saran natrophin for adrenal support Take 1 tablet by mouth daily. Reported on 07/09/2016 Indications: Drenatrophin for adrenal support 08/26/2019 MULTIVITAMIN ORAL 06/28/2008 08/08/2016 COD LIVER OIL ORAL 06/28/2008 7 GLUCOSAMINE HCL/CHONDRO TRIVEDI A (GLUCOSAMINE-CHONDROIT IN ORAL) 06/28/2008 08/26/2019 CALCIUM/MAGNESIUM (CALCIUM AND MAGNESIUM ORAL) 06/28/2008 01/23/2017 ERGOCALCIFEROL, VITAMIN D2, (VITAMIN D ORAL) 06/28/2008 10/14/2019 documented as of this encounter H&P Notes * Ayaz Nelson MD - 07/05/2011 10:23 AM EDT Gastroenterology and Hepatology Pre-Procedure History and Physical Exam Procedure: colo Indication: screen There is no problem list on file for this patient. EXAM: HEENT: Airway examined, oropharynx clear LUNGS: Clear to auscultation HEART: Regular rate and rhythm, normal S1, S2 ABDOMEN: Normal bowel sounds, soft, non tender, non distended, A/P Proceed with colo. Risks and benefits of the procedure explained to the patient. Consent signed. documented in this encounter Miscellaneous Notes * Miscellaneous - Provider, Scanning - 07/06/2011 6:51 AM EDT * Miscellaneous - Provider, Scanning - 07/05/2011 11:02 AM EDT documented in this encounter Plan of Treatment Upcoming Encounters Date Type Department Care Team (Late st Contact Info) Description 04/15/2024 1:00 PM EST Office Visit Hematology/Oncology at [address] [phone] Lee Ann Jay MD [facility] DR HEMATOLOGY [place] [address] Leti Anderson APRN [facility] [place] [address] documented as of this encounter Procedures Procedure Name Priority Date/Time Associated Diagnosis Comments SURGICAL PATHOLOGY REPORT Routine 07/05/2011 12:21 PM EDT SPECIMEN TO PATHOLOGY Routine 07/05/2011 10:53 AM EDT SPECIMEN TO PATHOLOGY Routine 07/05/2011 10:53 AM EDT SPECIMEN TO PATHOLOGY Routine 07/05/2011 10:53 AM EDT COLONOSCOPY, POLYPECTOMY, REMOVAL LESION BY SNARE (WRVU 4.57) 07/05/2011 10:16 AM EDT SCREENING COLONOSCOPY FLEXIBLE, WITH BX (WRVU 3.56) 07/05/2011 10:16 AM EDT SCREENING COLONOSCOPY Routine 07/05/2011 9:57 AM EDT documented in this encounter Results * SURGICAL PATHOLOGY REPORT (07/05/2011 12:21 PM EDT) Surgical Pathology Report ? [facility] ? Provider: ?? AYAZ NELSON ?Pt. Name: ?? DAISY LETI M ? Acc #: ?[id number] ?Pt. ? Col Date: ?? 07/05/2011 ? /Sex: ?1950,(60 years),Female ? Rec Date: ?? 07/05/2011 ? LOC: ?4T ? SURGICAL PATHOLOGY ? ---Pathologic Diagnosis--- ? Endoscopic biopsies - ? A. Inflammatory polyp. ? B. Colonic mucosa within normal limits. ? C. 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 ? Note: The histologic features are suggestive of idiopathic inflammatory ? bowel disease. No dysplasia is seen. ? CR-PX ? 07/06/11 ? AAS ? 07/06/11 Verified by: ? Dyllan Vazquez MD ? Pathologist ? (Electronic Signature) ? The attending pathologist whose signature appears on this report has ? reviewed all diagnostic slides and has edited the gross and/or ? microscopic portion of the report in rendering the final pathologic ? diagnosis. ? ---Microscopic Description--- ? Slides reviewed, microscopic description not recorded. ? ---Gross Description--- ? A - Labeled/Fixative: 2-mm polyp cecum, formalin. ? Qty/Size/Weight: ?Two, averaging 0.2 cm. ? Tissue Description: ?? Soft, ford tissues. ? Sections/Processi ng: ??(T1) ? B - Labeled/Fixative: Normal right colon, formalin. ? Qty/Size/Weight: ?Six, ranging from 0.2 cm to 0.4 cm. ? Tissue Description: ?? Soft, ford tissues. ? Sections/Processi ng: ??(T2) ? C - Labeled/Fixative: Mildly inflamed rectosigmoid, formalin. ? Qty/Size/Weight: ?Multiple, averaging 0.3 cm. ? Tissue Description: ?? Soft, ford tissues. ? Sections/Processi ng: ??(T2) ??vms/SNS ? [facility] ? Provider: ?? AYAZ NELSON ?Pt. Name: ?? LETI PARRY ? Acc #: ?[id number] ?Pt. ? Col Date: ?? 07/05/2011 ? /Sex: ?1950,(60 years),Female ? Rec Date: ?? 07/05/2011 ? LOC: ?4T ? SURGICAL PATHOLOGY ? ---Clinical Information--- ? Specimen Submitted: ? A - 2 mm polyp cecum ? B - Normal right colon ? C - Mildly inflamed rectosigmoid ? Clinical History/Diagnosis : ? Patient with incidental findings of proctitis CERNER MILLENNIUM 07/05/2011 12:2 1 PM EDT Ayaz Nelson MD PATHOLOGY/CYTOLOGY O RDKEITH Performing Organization Address [facility] Co de Phone Number RUEL SCHULTZIUM * Specimen to Pathology (surgical or derm) (07/05/2011 10:53 AM EDT) AP Specimen 07/05/2011 10:5 3 AM EDT 07/05/2011 10:53 AM EDT Narrative CERYRN BLANDONENNIUM - 07/05/2011 10:53 AM EDT Specimen requisition ordered. ??Separate Pathology report to follow Ayaz Nelson MD PATHOLOGY/CYTOLOGY O OMI Performing Organization Address [facility] Co de Phone Number RUEL SCHULTZIUM * Specimen to Pathology (surgical or derm) (07/05/2011 10:53 AM EDT) AP Specimen 07/05/2011 10:5 3 AM EDT 07/05/2011 10:53 AM EDT Narrative RUEL BLANDONENNIUM - 07/05/2011 10:53 AM EDT Specimen requisition ordered. ??Separate Pathology report to follow Ayaz Nelson MD PATHOLOGY/CYTOLOGY O RDKEITH Performing Organization Address [facility] Co de Phone Number RUEL SCHULTZIUM * Specimen to Pathology (surgical or derm) (07/05/2011 10:53 AM EDT) AP Specimen 07/05/2011 10:5 3 AM EDT 07/05/2011 10:53 AM EDT Narrative RUEL MILLENNIUM - 07/05/2011 10:53 AM EDT Specimen requisition ordered. ??Separate Pathology report to follow Ayaz Nelson MD PATHOLOGY/CYTOLOGY O OMI Performing Organization Address [facility] Co de Phone Number RUEL BLANDONENNIUM * COLONOSCOPY (07/05/2011 9:57 AM EDT) COLONOSCOPY [facility] Endoscopy Patient Name: Leti Parry ? Procedure Date: 07/05/2011 9:57 AM ? Date of : 1950 ? Age: 60 ? Order #: [id number] ? Procedure: ? Colonoscopy Indications: ? Screening for colorectal malignant ? neoplasm, Asymptomatic Providers: ? Ayaz Nelson MD, Venkatesh Knight, ? RN, Manisha Palmer, Dental Assisting Instructor Referring MD: ?Julia Chatterjee MD Medicines: ? Midazolam 3.5 mg IV, Fentanyl 175 ? micrograms IV Complications: ? No immediate complications. Procedure: ? Pre-Anesthesia Assessment: ? - ASA Grade Assessment: I - A normal, ? healthy patient. ? - After reviewing the risks and ? benefits, the patient was deemed in ? satisfactory condition to undergo the ? procedure. ? The procedure, indications, benefits, ? risks [...] quality of the ? bowel preparation was excellent. ? Findings: ? Diffuse mild inflammation characterized by congestion ? (edema), erosions, erythema, friability and ? granularity was found in the recto-sigmoid colon. ? There was partial loss of vascularity. Biopsies were ? taken with a cold forceps for histology. The ? inflammation was continuous and extended from the ? rectum to 28 cm then abruptly stoppedThe descending ? colon, transverse colon, hepatic flexure, ascending ? colon, cecum and ileum appeared normal. Biopsies were ? taken with a cold forceps for histology. The terminal ? ileum appeared normal. A sessile polyp was found in ? the cecum. The polyp was 3 mm in size. The polyp was ? removed with a cold biopsy forceps. Resection and ? retrieval were complete. ? Impression: ?- Diffuse mild inflammation was found ? in the recto-sigmoid colon secondary ? to inflammatory bowel disease. This ? was biopsied. ? These findings are c/w mild UC ? - The descending colon, transverse ? colon, hepatic flexure, ascending ? colon, cecum and terminal ileum are ? normal. This was biopsied. ? - The examined portion of the ileum ? was normal. ? - One 3 mm polyp in the cecum. ? Resected and retrieved. Recommendation: ?Suggest Rowasa enemas or Canasa supp ? __ Ayaz Nelsno MD 07/05/2011 11:01 AM ? Number of Addenda: 0 Note Initiated On: 07/05/2011 9:57 AM PROVATION 07/05/2011 9:57 AM EDT Julia Chatterjee MD GENERAL SURGICAL ORD ERABLES Performing Organization Address City/State/[facility] Co de Phone Number PROVATION documented in this encounter Visit Diagnoses Not on filedocumented in this encounter Active and Recently Administered Medications Times are shown in EDT. PRN Medication Order 07/03/2011 07/04/2011 07/05/2011 fentaNYL 50mcg/mL injection (CANCELED) ONCE PRN, Starting on Lulu 07/05/11 at 1018, Until Lulu 07/05/11 at 1728, Pain, Intra-Operative (Intra-Procedure), Routine 1018 (Given - Provid er: Venkatesh Knight RN)1025 (Given - Provider: Venkatesh Knight RN)1030 (Given - Provider: Venkatesh Knight RN)1036 (Given - Provider: Venkatesh Knight RN) midazolam (VERSED) injection (CANCELED) ONCE PRN, Starting on Lulu 07/05/11 at 1018, Until Lulu 07/05/11 at 1728, Sleep, Intra-Operative (Intra-Procedure), Routine 1018 (Given - Provid er: Venkatesh Knight RN)1025 (Given - Provider: Venkatesh Knight RN)1030 (Given - Provider: Venkatesh Knight RN)1036 (Given - Provider: Venkatesh Knight RN) documented in this encounter Care Teams Spinner Concrete Pipe Relationship Specialty Start Date End Date Julia Chatterjee MD [facility] [address] [place] [address] PCP - General 01/31/10 documented as of this encounter
--- OUTSIDE RECORDS SUMMARY | 2023-10-22 02:51 | XMS_ITS | Encounter Summary ---
Author Organization Replaced By [facility] Address [facility] [place] [address] Care Team Providers Care Air Traffic Control Specialist Name Role Phone Julia Chatterjee MD Primary Care Provider [phone] Encounter Details Date Type Department Care Team (Late st Contact Info) Description 07/19/2011 Tele[place] [address] Ana Felton, RN Social History [...] Telephone Encounter - Ayaz Nelson MD - 07/19/2011 2:47 PM EDT i have no idea It is not related to rowasa She should see pcp if it worsens * Telephone Encounter - Ana Rocha RN - 07/19/2011 11:28 AM EDT Leti called reporting that she does feel better today and her fever is gone. However, she now has a reddened areas on her outer thigh. One area is the size of a quarter while the other three areas are dime sized. Not sore to the touch. No drainage Will review with Dr Bensen documented in this encounter Plan of Treatment Upcoming Encounters Date Type Department Care Team (Late st Contact Info) Description 04/15/2024 1:00 PM EST Office Visit Hematology/Oncology at [address] [phone] Lee Ann Jay MD [facility] [address] [place] [address] Leti Anderson APRN [facility] [place] [address] documented as of this encounter Visit Diagnoses Not on filedocumented in this encounter Care Teams Air Traffic Control Specialist Relationship Specialty Start Date End Date Julia Chatterjee MD [facility] [address] [place] [address] PCP - General 01/31/10 documented as of this encounter
--- OUTSIDE RECORDS SUMMARY | 2023-10-22 02:51 | XMS_ITS | Encounter Summary ---
Author Organization [facility] Address [address] [place] [address] Care Team Providers Care Care Team Coordinator Scheduler Name Role Phone Julia Chatterjee MD Primary Care Provider [phone] Encounter Details Date Type Department Care Team (Late st Contact Info) Description 08/01/2021 Lab Requisition [facility] Pathology & Laboratory Medicine - [address] [address] Outr Resulting Lab, Provider Social History Tobacco [...] Procedure Name Priority Date/Time Associated Diagnosis Comments T3 FREE Routine 07/31/2021 8:50 EDT THYROID ANTIBODIES Routine 07/31/2021 8:50 EDT documented in this encounter Results * T3 FREE (07/31/2021 8:50 EDT) T3, Free 2.9 2.8 - 5.3 pg/mL 08/01/2021 17:47 EDT [facility] Blood VENOUS BLOOD / Unknown 07/31/2021 8:50 EDT 08/01/2021 17:09 EDT Provider Outr Resulting Lab CHEMISTRY & BLOOD GAS ORDERABLES Performing Organization Address City/[facility]/ZIP Co de Phone Number [facility] [address] [place] [address] * THYROID ANTIBODIES (07/31/2021 8:50 EDT) Anti-Thyroglobulin <15 <=60 U/mL 2021 18:36 EDT [facility] Thyroperoxidase Ab <28 <=60 U/mL 2021 18:36 EDT [facility] Blood VENOUS BLOOD / Unknown 07/31/2021 8:50 EDT 08/01/2021 17:09 EDT Provider Outr Resulting Lab CHEMISTRY & BLOOD GAS ORDERABLES Performing Organization Address [facility] de Phone Number [facility] [address] [place] [address] documented in this encounter Visit Diagnoses Not on filedocumented in this encounter Care Teams Care Team Coordinator Scheduler Relationship Specialty Start Date End Date Julia Chatterjee MD [address] [place] [phone] PCP - General 08/13/19 documented as of this encounter
--- OUTSIDE RECORDS SUMMARY | 2023-10-22 02:51 | XMS_ITS | Encounter Summary ---
Author Organization [facility] Address [facility] [place] [address] Care Team Providers Care Wire Stretcher Name Role Phone Julia Chatterjee MD Primary Care Provider [phone] Encounter Details Date Type Department Care Team (Late st Contact Info) Description 07/05/2011 10:00 AM EDT - 07/05/2011 11:00 AM EDT Surgery [place] [address] Ayaz Nelson MD [facility] [place] [address] COLONOSCOPY FLEXIBLE, WITH BX (WRVU 3.56) Social [...] Sign Reading Time Taken Comments Blood Pressure 96/61 07/05/2011 10:57 AM EDT Pulse 50 07/05/2011 10:57 AM EDT Temperature 36.6 ??C (97.9 ??F) 07/05/2011 9:53 AM ED T Respiratory Rate 16 07/05/2011 10:57 AM EDT Oxygen Saturation 95% 07/05/2011 10:57 AM EDT Inhaled Oxygen Concentration - - Weight - - Height - - Body Mass Index - - documented in this encounter Discharge Instructions * Discharge Instructions* Clive Coronel, DAYANA - 07/05/2011 10:58 AM EDT You may [...] occurs please contact your M.D. Please call [phone] before 5 pm with problems, questions or concerns. After 5pm call [phone] and ask to speak with the core machine operator radiology receptionist. Discharge instructions reviewed with patient who expresses understanding. * Patient Instructions* Ayaz Nelson MD - 07/05/2011 10:24 AM EDT Please see Recommendations in the Provation procedure report which is documented in the procedural note in E-DH. * Attachments The following attachments cannot be sent through Care Everywhere. * COLONOSCOPY: WHAT TO EXPECT AT HOME (CYMRAES) documented in this encounter Medications at Time [...] PM EST Office Visit Hematology/Oncology at [address] [address] Lee Ann Jay MD [facility] [place] [address] Leti Anderson APRN [facility] [place] [address] documented as of this encounter Procedures Procedure [...] 12:21 PM EDT) Surgical Pathology Report ? [facility] ? Provider: ?? AYAZ NELSON ?Pt. Name: ?? LETI PARRY ? Acc #: ?[id number] ?Pt. ? Col Date: ?? 07/05/2011 ? [...] tissues. ? Sections/Processi ng: ??(T2) ??vms/SNS ? [facility] ? Provider: ?? AYAZ NELSON ?Pt. Name: ?? LETI PARRY ? Acc #: ?[id number] ?Pt. ? Col Date: ?? 07/05/2011 ? /Sex: ?1950,(60 years),Female ? Rec Date: ?? 07/05/2011 ? LOC: ?4T ? SURGICAL PATHOLOGY ? ---Clinical Information--- ? Specimen Submitted: ? A - 2 mm polyp cecum ? B - Normal right colon ? C - Mildly inflamed rectosigmoid ? Clinical History/Diagnosis : ? Patient with incidental findings of proctitis RUEL SCHULTZIUM 07/05/2011 12:2 1 PM EDT Ayaz Nelson MD PATHOLOGY/CYTOLOGY O OMI Performing Organization Address [facility] Co de Phone Number RUEL SERNA * Specimen to Pathology (surgical or derm) (07/05/2011 10:53 AM EDT) AP Specimen 07/05/2011 10:5 3 AM EDT 07/05/2011 10:53 AM EDT Narrative RUEL SCHULTZIUM - 07/05/2011 10:53 AM EDT Specimen requisition ordered. ??Separate Pathology report to follow Ayaz Nelson MD PATHOLOGY/CYTOLOGY O OMI Performing Organization Address [facility] de Phone Number RUEL SCHULTZIUM * Specimen to Pathology (surgical or derm) (07/05/2011 10:53 AM EDT) AP Specimen 07/05/2011 10:5 3 AM EDT 07/05/2011 10:53 AM EDT Narrative RUEL SCHULZTIUM - 07/05/2011 10:53 AM EDT Specimen requisition ordered. ??Separate Pathology report to follow Ayaz Nelson MD PATHOLOGY/CYTOLOGY O OMI Performing Organization Address [facility] Co de Phone Number RUEL SERNA * Specimen to Pathology (surgical or derm) (07/05/2011 10:53 AM EDT) AP Specimen 07/05/2011 10:5 3 AM EDT 07/05/2011 10:53 AM EDT Narrative RUEL SCHULTZIUM - 07/05/2011 10:53 AM EDT Specimen requisition ordered. ??Separate Pathology report to follow Ayaz Nelson MD PATHOLOGY/CYTOLOGY O OMI Performing Organization Address [facility] Co de Phone Number RUEL SCHULTZIUM * COLONOSCOPY (07/05/2011 9:57 AM EDT) COLONOSCOPY [facility] Endoscopy Patient Name: Leti Parry ? Procedure Date: 07/05/2011 9:57 AM ? Date of : 1950 ? Age: 60 ? Order #: [id number] ? Procedure: ? Colonoscopy Indications: ? Screening for colorectal malignant ? neoplasm, Asymptomatic Providers: ? Ayaz Nelson MD, Venkatesh Knight, ? RN, Manisha Palmer, Nurse'S Assistant Referring MD: ?Julia Chatterjee MD Medicines: ? [...] enemas or Canasa supp ? __ Ayaz Nelson MD 07/05/2011 11:01 AM ? Number of Addenda: 0 Note Initiated On: 07/05/2011 9:57 AM PROVATION 07/05/2011 9:57 AM EDT Julia Chatterjee MD GENERAL SURGICAL ORD ERABLES Performing Organization Address City/State/[facility] Co de Phone Number PROVATION documented in this encounter Visit Diagnoses Not on filedocumented in this encounter Administered Medications Inactive Administered Medications - up to 3 most recent administrations Medication Order MAR Action Action Date Dose Rate Site fentaNYL 50mcg/mL injection ONCE PRN, Starting on Lulu 07/05/11 at 1018, Until Lulu 07/05/11 at 1728, Pain, Intra-Operative (Intra-Procedure), Routine Given 07/05/2011 10:36 AM EDT 25 mcg Given 07/05/2011 10:30 AM EDT 50 mcg Given 07/05/2011 10:25 AM EDT 50 mcg midazolam (VERSED) injection ONCE PRN, Starting on Lulu 07/05/11 at 1018, Until Lulu 07/05/11 at 1728, Sleep, Intra-Operative (Intra-Procedure), Routine Given 07/05/2011 10:36 AM E DT 0.5 mg Given 07/05/2011 10:30 AM EDT 1 mg Given 07/05/2011 10:25 AM EDT 1 mg documented in this [...] RN) documented in this encounter Care Teams Wire Stretcher Relationship Specialty Start Date End Date Julia Chatterjee MD [facility] [address] [facility] [address] [place] [address] PCP - General 01/31/10 documented as of this encounter
--- OUTSIDE RECORDS SUMMARY | 2023-10-22 02:51 | XMS_ITS | Encounter Summary ---
Author Organization [facility] [place] [address] Care Team Providers Care C Software Engineer Name Role Phone Julia Chatterjee MD Primary Care Provider [phone] Reason for Visit * Reason Onset Date Comments Other 11/01/2016 lab work Encounter Details Date Type Department Care Team (Late Contact Info) Description 11/01/2016 Telephone Hematology/Oncology at [address] [phone] Mera Cintron RN Other (lab work) Social History Tobacco Use Types Packs/Day Years [...] Telephone Encounter - Mera Cintron RN - 11/01/2016 5:02 PM EDT Spoke with Leti, she is out of town right now. Dr. Jay would like her to have another lab drawn befoe she sees her Pt can go early as she is out of town right now.Dr. Jay updated. documented in this encounter Plan of Treatment Upcoming Encounters Date Type Department Care Team (Late Contact Info) Description 04/15/2024 1:00 PM EST Office Visit Hematology/Oncology at [address] [address] Lee Ann Jay MD [facility] [address] [place] [address] Leti Anderson APRN [facility] [place] [address] documented as of this encounter Visit Diagnoses Not on filedocumented in this encounter Care Teams C Software Engineer Relationship Specialty Start Date End Date Julia Chatterjee MD [facility] [address] [facility] [address] [place] [address] PCP - General 01/31/10 documented as of this encounter
--- OUTSIDE RECORDS SUMMARY | 2023-10-22 02:51 | XMS_ITS | Encounter Summary ---
Author Organization [facility] Address [address] [place] [address] Care Team Providers Care Cuprous Chloride Operator Name Role Phone Julia Chatterjee MD Primary Care Provider [phone] Encounter Details Date Type Department Care Team (Late st Contact Info) Description 12/03/2019 Lab Requisition [facility] Pathology & Laboratory Medicine - [address] [id number] Outr Resulting Lab, Provider Social History Tobacco [...] Procedure Name Priority Date/Time Associated Diagnosis Comments HOMOCYSTEINE Routine 12/03/2019 9:56 EDT documented in this encounter Results * HOMOCYSTEINE (12/03/2019 9:56 EDT) Homocysteine 13.2 5.0 - 13.9 umol/L 12/04/2019 8:44 EDT [facility] Blood VENOUS BLOOD / Unknown 12/03/2019 9:56 EDT 12/03/2019 16:04 EDT Narrative [facility] - 12/04/2019 8:44 EDT Reference range may not apply to non-fasting samples. ??It is not recommended that EDTA plasma and serum from the same patient be used interchangeably. ??Serum concentrations have been observed to be up to 10% higher than EDTA plasma. Reference range may not apply to serum results. Provider Outr Resulting Lab CHEMISTRY & BLOOD GAS ORDERABLES [facility] [address] [place] [address] documented in this encounter Visit Diagnoses Not on filedocumented in this encounter Care Teams Cuprous Chloride Operator Relationship Specialty Start Date End Date Julia Chatterjee MD [address] [place] [phone] PCP - General 08/13/19 documented as of this encounter
--- OUTSIDE RECORDS SUMMARY | 2023-10-22 02:51 | XMS_ITS | Encounter Summary ---
Author Organization [facility] Address [facility] [place] [address] Care Team Providers Care Medicare Nurse Name Role Phone Julia Chatterjee MD Primary Care Provider [phone] Encounter Details Date Type Department Care Team (Late st Contact Info) Description 12/07/2016 - 12/07/2016 11:59 PM EDT Hospital Encounter [place]iology [place] [address] Lee Ann Jay MD [facility] [place] [address] Pain Discharge Disposition: Home Social History Tobacco Use [...] Take 500 mg by mouth daily. 08/26/2019 MULTIVITAMIN/ZINC SULFATE/SULTANA ([id number] ENIUM ORAL)Indications:Neutr openia, unspecified type Take 1 tablet by mouth daily. 12/19/2016 UNKNOWN TO PATIENTIndications:Saran natrophin for adrenal support Take 1 tablet by mouth daily. Reported on 07/09/2016 Indications: Drenatrophin for adrenal support 08/26/2019 GLUCOSAMINE HCL/CHONDRO TRIVEDI A (GLUCOSAMINE-CHONDROIT IN ORAL) 06/28/2008 08/26/2019 CALCIUM/MAGNESIUM (CALCIUM AND MAGNESIUM ORAL) 06/28/2008 01/23/2017 ERGOCALCIFEROL, VITAMIN D2, (VITAMIN D ORAL) 06/28/2008 10/14/2019 documented as of this encounter Plan of Treatment Upcoming Encounters Date Type Department Care Team (Late st Contact Info) Description 04/15/2024 1:00 PM EST Office Visit Hematology/Oncology at [address] [phone] Lee Ann Jay MD [facility] [place] [address] Leti Anderson APRN [facility] [place] [address] documented as of this encounter Procedures Procedure Name Priority Date/Time Associated Diagnosis Comments ULTRASOUND SCAN (SCAN) 12/07/2016 12:00 AM EDT FILM LIBRARY STORAGE ONLY ULTRASOUND STUDY Routine 12/07/2016 12:00 AM EDT Pain documented in this encounter Results * Film Library- Storage Only Ultrasound Study (12/07/2016 12:00 AM EDT) Narrative [facility] - 12/08/2016 8:57 AM EDT This exam is for storage only and is auto-finalizing. Lee Ann Jay MD IMG FILM LIBRARY ORDERABLES [place], [place] * SCAN DOC: ULTRASOUND (12/07/2016 12:00 AM EDT) Anatomical Region Laterality Modality SO Narrative 12/07/2016 12:00 AM EDT Ordered by an unspecified provider. Scanning Provider MEDIA MGR SCAN EXT O RDR/RSLT documented in this encounter Visit Diagnoses Diagnosis Pain Generalized pain documented in this encounter Care Teams Medicare Nurse Relationship Specialty Start Date End Date Julia Chatterjee MD [address] [place] [address] PCP - General 01/31/10 documented as of this encounter
--- OUTSIDE RECORDS SUMMARY | 2023-10-22 02:51 | XMS_ITS | Encounter Summary ---
Author Organization [facility] Address [facility] [place] [address] Care Team Providers Care Ip Counsel Name Role Phone Julia Chatterjee MD Primary Care Provider [phone] Encounter Details Date Type Department Care Team (Late Contact Info) Description 10/08/2016 Telephone Hematology/Oncology at [address] [phone] Mera Cintron RN Social History Tobacco Use Types Packs/Day [...] Telephone Encounter - Mera Cintron RN - 10/11/2016 1:41 PM EDT Lab work from August [address] Jay to review. documented in this encounter Plan of Treatment Upcoming Encounters Date Type Department Care Team (Late Contact Info) Description 04/15/2024 1:00 PM EST Office Visit Hematology/Oncology at [address] [phone] Lee Ann Jay MD [facility] HEMATOLOGY [place] [address] Leti Anderson APRN [facility] DR HEMATOLOGY [place] [address] documented as of this encounter Visit Diagnoses Not on filedocumented in this encounter Care Teams Ip Counsel Relationship Specialty Start Date End Date Julia Chatterjee MD [facility] [address] [place] [address] PCP - General 01/31/10 documented as of this encounter
--- OUTSIDE RECORDS SUMMARY | 2023-10-22 02:51 | XMS_ITS | Encounter Summary ---
Author Organization [facility] Address [facility] [place] [address] Care Team Providers Care Angiography Technologist Name Role Phone Julia Chatterjee MD Primary Care Provider [phone] Reason for Visit * Reason Comments Follow-up Encounter Details Date Type Department Care Team (Late st Contact Info) Description 01/24/2012 2:30 PM EST [place] [phone] Ayaz Nelson MD [facility] [place] [address] Colitis (Primary Dx) Discharge Disposition: Home Social [...] Sign Reading Time Taken Comments Blood Pressure 121/70 01/24/2012 2:41 PM EST Pulse 54 01/24/2012 2:41 PM EST Temperature - - Respiratory Rate - - Oxygen Saturation - - Inhaled Oxygen Concentration - - Weight 59 kg (130 lb) 01/24/2012 2:41 PM EST Height 160 cm (5' 3) 01/24/2012 2:41 PM EST Body Mass Index 23.03 01/24/2012 2:41 PM EST documented in this encounter Progress Notes * Ayaz Nelson MD - 01/24/2012 3:02 PM EST Left sided ulcerative colitis --dx 4/ at time of screening colonoscopy, relatively Asx -- colonoscopy 06/20Diffuse mild inflammation was found in the recto-sigmoid colon secondary to inflammatory bowel disease. This was biopsied These findings are c/w mild UC --Path: Mildly to severely active chronic proctocolitis with focal erosion. The histologic featuresare suggestive of idiopathic inflammatorybowel disease. No dysplasia is seen. Gluten Sensitive Subjective: I am seeing Ms. Parry in followup. I did a colonoscopy on her in June at which time she was having some frequent bowel movements. She was found to have mild inflammation of the rectosigmoid consistent with inflammatory bowel disease. I placed her on Rowasa enemas, which she did not feel were too helpful. She relates having had similar symptoms 20 years ago that resolved. When I saw her last she was doing well. She had seen a ferry pilot who had suggested that she was gluten intolerant and lactose intolerant but did not have clear celiac disease. When I saw her last I checked her for tTG and it was negative. Since I saw her last, she has done well. She went off her gluten-free diet when she was in [facility] and then began to experience symptoms again so is back on it and is not having any symptoms in terms of diarrhea, rectal bleeding, frequent bowel movements, or abdominal pain. She feels well. She feels that she is gluten intolerant. Review of systems is otherwise negative. On physical exam, healthy-appearing athletic woman in no acute distress. Her lungs are clear to auscultation. Her heart is regular rate and rhythm. Her abdomen is soft, nondistended, nontender. Extremities without edema, cyanosis, or clubbing. Impression: [id number]-old woman with left-sided colitis on colonoscopy in June, now asymptomatic off of any IBD therapy. Plan: 1. Continue to observe. If she develops symptoms of active colitis including bleeding, urgency, diarrhea, she will let me know and we will reinitiate 5-ASA therapy. 2. Gluten intolerance. It does sound like she may indeed be gluten intolerant. However, she does not have celiac disease. Plan: Continue gluten-free diet as per patient's wishes. Plan to follow up with me p.r.n. documented in this encounter Plan of Treatment Upcoming Encounters Date Type Department Care Team (Late st Contact Info) Description 04/15/2024 1:00 PM EST Office Visit Hematology/Oncology at [address] [phone] Lee Ann Jay MD [facility] DR [place] [address] Leti Anderson APRN [facility] [place] [address] documented as of this encounter Visit Diagnoses Diagnosis Colitis- Primary Other and unspecified noninfectious gastroenteritis and colitis documented in this encounter Care Teams Angiography Technologist Relationship Specialty Start Date End Date Julia Chatterjee MD [facility] [address] [place] [address] PCP - General 01/31/10 documented as of this encounter
--- OUTSIDE RECORDS SUMMARY | 2023-10-22 02:51 | XMS_ITS | Encounter Summary ---
Author Organization [facility] Address [facility] [place] [address] Care Team Providers Care Tower Equipment Repairer Name Role Phone Julia Chatterjee MD Primary Care Provider [phone] Encounter Details Date Type Department Care Team (Late st Contact Info) Description 08/08/2016 2:00 PM EDT Office Visit Hematology/Oncology at [address] [phone] Lee Ann Jay MD [facility] [address] [place] [address] Neutropenia, unspecified type Social History Tobacco Use [...] Sign Reading Time Taken Comments Blood Pressure 118/76 08/08/2016 2:03 PM EDT Pulse 57 08/08/2016 2:03 PM EDT Temperature 36.6 ??C (97.9 ??F) 08/08/2016 2:03 PM ED T Respiratory Rate 16 08/08/2016 2:03 PM EDT Oxygen Saturation 100% 08/08/2016 2:03 PM EDT Inhaled Oxygen Concentration - - Weight 66.2 kg (146 lb) 08/08/2016 2:03 PM EDT Height 160 cm (5' 2.99) 08/08/2016 2:03 PM EDT Body Mass Index 25.87 08/08/2016 2:03 PM EDT documented in this encounter Progress Notes * Lee Ann Jay MD - 08/08/2016 2:00 PM EDT Images from the original note were not included. Hematology/Oncology New Patient Note Patient ID: An Parry Requesting Provider: No att. providers found Primary Care Provider: Julia Chatterjee MD Reason for Consult: leukopenia History of Present Illness: Ms. Parry is a 65 y.o. with pmhx of ? Ulcerative colitis- [...] persist, no weight loss, no lymphadenopathy, good appetite Feels well, good energy 01/2007 wbc 3.7 04/2007 WBC 3.9, hgb 14.4, plt 246 07/2011 wbc 4.4, hgb 13.4, plt 222 05/29/2016 wbc 1.81, hgb 13.4, plt 162 Neutrophils 12.9 Lymphocytes 66.5 [place] 19.3 Eosinophils 0.4 Basophils 0.0 Immature grans [...] tingling or new weakness. No headaches Past Medical/Surgical History: Patient Active Problem List Diagnosis ??? Leukopenia Past Surgical History: Procedure Laterality Date ??? PRO COLONOSCOPY, BIOPSY 07/05/2011 COLONOSCOPY FLEXIBLE, WITH BX performed by MARY CASTRO at [facility] ??? PRO COLONOSCOPY, REMV SABINA, SNARE 07/05/2011 COLONOSCOPY, POLYPECTOMY, REMOVAL LESION BY SNARE performed by MARY CASTRO at [facility] Medications; Current Outpatient Prescriptions on File Prior to Visit Medication Sig Dispense Refill ??? UNKNOWN TO PATIENT Reported on 07/09/2016 Indications: adrenal support ??? GLUCOSAMINE HCL/CHONDRO TRIVEDI A (GLUCOSAMINE-CHONDROITIN ORAL) ??? CALCIUM/MAGNESIUM (CALCIUM AND MAGNESIUM ORAL) ??? ERGOCALCIFEROL, VITAMIN D2, (VITAMIN D ORAL) No current facility-administered medications on file prior to visit. Allergies: Allergies Allergen Reactions ??? Benzalkonium Chloride Family History: Father- 87, healthy Mother- 83, healthy 4 brothers and 2 sisters all healthy Social History: Lives in [place] [facility] [facility]. . 1 son 38 years old- healthy. 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 Likes to bike in [place] w/ her . Social History Substance Use Topics ??? Smoking status: Never Smoker ??? Smokeless tobacco: None ??? Alcohol use 1 shot of tequila few times a week Physical Examination Vitals: Temp: [36.6 ??C (97.9 ??F)] Heart Rate: [57] BP: (118)/(76) Resp: [16] SpO2: [100 %] General: Well appearing, in NAD Labs: Results for AN PARRY ( ) as of 08/08/2016 14:27 Ref. Range 07/09/2016 12:00 WBC Latest Ref Range: 4.0 - 9.5 x10(3)/mcL 2.1 (L) RBC Latest Ref Range: 4.00 - 5.21 x10(6)/mcL 4.85 Hemoglobin Latest Ref Range: 11.7 - 15.5 gm/dL 13.8 Hematocrit Latest Ref Range: 35.7 - 45.8 % 42.7 MCV Latest Ref Range: 82.6 - 94.4 fL 88.0 MCH Latest Ref Range: 27.1 - 32.0 pg 28.5 MCHC Latest Ref Range: 31.7 - 35.0 gm/dL 32.3 RDWSD Latest Ref Range: 37.0 - 46.0 fL 40.5 RDWCV Latest Ref Range: 11.5 - 14.1 % 12.5 Platelets Latest Ref Range: 145 - 357 x10(3)/mcL 211 MPV Latest Ref Range: 7.6 - 12.9 fL 10.1 nRBC % Auto Latest Units: % 0.0 nRBC Abs Auto Latest Ref Range: 0.000 - 0.000 x10(3)/mcL 0.000 Neutr Abs (ANC) Latest Ref Range: 1.70 - 6.10 x10(3)/mcL 0.64 (L) Neutrophils % Latest Units: % 30.9 Immature Gran % Latest Units: % 0.00 Lymphocytes % Latest Units: % 58.9 Monocytes % Latest Units: % 9.7 Eosinophils % Latest Units: % 0.5 Basophils % Latest Units: % 0.0 Elizabeth Gran Abs Latest Ref Range: 0.00 - 0.04 x10(3)/mcL 0.00 Lymphocytes Abs Latest Ref Range: 0.9 - 3.2 x10(3)/mcL 1.2 Monocyte Abs Latest Ref Range: 0.3 - 0.9 x10(3)/mcL 0.2 (L) Eosinophils Abs Latest Ref Range: 0.0 - 0.4 x10(3)/mcL 0.0 Basophils Abs Latest Ref Range: 0.0 - 0.1 x10(3)/mcL 0.0 Immunophenotyping Flow Unknown See Comment Sodium Latest Ref Range: 135 - 145 mmol/L 140 Potassium Latest Ref Range: 3.5 - 5.0 mmol/L 4.2 Chloride Latest Ref Range: 98 - 107 mmol/L 100 CO2 Latest Ref Range: 22 - 31 mmol/L 28 Anion Gap Latest Ref Range: 5 - 15 mmol/L 12 BUN Latest Ref Range: 8 - 18 mg/dL 17 Creatinine Latest Ref Range: 0.70 - 1.20 mg/dL 0.96 Estimated GFR Latest Ref Range: >=60 59 (L) Glucose Lvl Latest Ref Range: 65 - 199 mg/dL 95 Calcium Latest Ref Range: 8.5 - 10.5 mg/dL 9.7 Total Protein Latest Ref Range: 6.1 - 8.0 gm/dL 7.9 Albumin Latest Ref Range: 3.2 - 5.2 gm/dL 4.6 Total Bilirubin Latest Ref Range: 0.2 - 1.3 mg/dL 0.3 Bili, Direct Latest Ref Range: 0.0 - 0.3 mg/dL 0.1 Alk Phos Latest Ref Range: 40 - 104 unit/L 62 AST Latest Ref Range: 0 - 30 unit/L 17 ALT Latest Ref Range: 0 - 30 unit/L 14 Total Prot Elec Latest Ref Range: 6.1 - 8.0 gm/dL 7.9 Albumin Elect Latest Ref Range: 3.60 - 6.00 gm/dL 4.97 Alpha1-Globulin Latest Ref Range: 0.10 - 0.30 gm/dL 0.17 Alpha2-Globulin Latest Ref Range: 0.40 - 0.90 gm/dL 0.78 Beta Globulin Latest Ref Range: 0.50 - 1.00 gm/dL 0.77 Gamma Globulin Latest Ref Range: 0.50 - 1.30 gm/dL 1.21 M1 Band Unknown None Detected [place] Free Light Chains Latest Ref Range: 0.33 - 1.94 mg/dL 1.66 Lambda Free Light Chains Latest Ref Range: 0.57 - 2.63 mg/dL 1.54 [place]/Lambda Free Light Chain Ratio Latest Ref Range: 0.2600 - 1.6500 1.0779 IgG Latest Ref Range: 700 - 1600 mg/dL 1468 IgA Latest Ref Range: 70 - 400 mg/dL 238 IgM Latest Ref Range: 40 - 230 mg/dL 114 HIV Viral Load Unknown * 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 HepB Surface Ag Latest Ref Range: Negative Negative Hep B Core Ab Latest Ref Range: Negative Negative Hepatitis C Ab Latest Ref Range: Negative Negative date wbc anc hgb plt 07/09/16 2.1 0.64 13.8 211 08/03/16 2.65 0.71 13.7 199 Assessment and Recommendations: 65 y.o. Healthy female who has been referred [...] would start treatment with low dose methotrexate. At our last appt we karis: Peripheral smear, cbc, CMP, flow cytometry, SPEP, FLC, immunoglobulin,hepatits and HIV. Flow cytometry returned and there were no signs of LGL. This is good, for her, but it gives is no answer or the chronic leukopenia and neutropenia. Continues to have no infections in only thing we didn't check was antineutrophil antibody. We can see check that. Unfortunately there is no treatment but at least we know the cause. To send out and usually takes one to 2 weeks to return. She has been working with a belly packer who started her on selenium and zinc. Counts are a bit higher so we will see. [employer] has been helping her with bowel issues. These are better w/ diet adjustments. She is due for a colonoscopy. This is in f/u to a work up for irrritable bowel syndrome. We can tryGCSF to see if it raises the ANC and would make it safe for colo. She would prefer not to do the colo now and we can post pone it a bit. Etiology of the leucopenia/neutropenia remains unclear. Asymptomatic so will not start any therapy now. She reports only very rare infections. Plan: ?? Consider challenge of GCSF ?? Will check antineutrophil antibodies - she will have it drawn approx August 17 ?? RN to follow up on result in 2 weeks. ?? RTC in 3 mos with cbc only I discussed all of the above with the patient and all of her questions were answered. Support and counseling given as appropriate. This note was written or modified using [employer] voice recognition software. The final note was screened for mistakes. Please excuse any remaining errors. ? documented in this encounter Plan of Treatment Upcoming Encounters Date Type Department Care Team (Late st Contact Info) Description 04/15/2024 1:00 PM EST Office Visit Hematology/Oncology at [address] [phone] Lee Ann Jay MD [facility] [address] [place] [address] An Anderson APRN [facility] [address] [place] [address] documented as of this encounter Procedures Procedure Name Priority Date/Time Associated Diagnosis Comments LAB SCAN 10/25/2016 12:00 AM EDT LAB SCAN 10/25/2016 12:00 AM EDT LAB SCAN 08/23/2016 12:00 AM EDT LAB SCAN 05/31/2016 12:00 AM EDT documented in this encounter Results * SCAN DOC: LAB (10/25/2016 12:00 AM EDT) Narrative 10/25/2016 12:00 AM EDT Ordered by an unspecified provider. Scanning Provider MEDIA MGR SCAN EXT O RDR/RSLT * SCAN DOC: LAB (10/25/2016 12:00 AM EDT) Narrative 10/25/2016 12:00 AM EDT Ordered by an unspecified provider. Scanning Provider MEDIA MGR SCAN EXT O RDR/RSLT * SCAN DOC: LAB (08/23/2016 12:00 AM EDT) Narrative 08/23/2016 12:00 AM EDT Ordered by an unspecified provider. Scanning Provider MEDIA MGR SCAN EXT O RDR/RSLT * SCAN DOC: LAB (05/31/2016 12:00 AM EDT) Narrative 05/31/2016 12:00 AM EDT Ordered by an unspecified provider. Scanning Provider MEDIA MGR SCAN EXT O RDR/RSLT documented in this encounter Visit Diagnoses Diagnosis Neutropenia, unspecified type documented in this encounter Care Teams Tower Equipment Repairer Relationship Specialty Start Date End Date Julia Chatterjee MD [address] [place] [address] PCP - General 01/31/10 documented as of this encounter
--- OUTSIDE RECORDS SUMMARY | 2023-10-22 02:51 | XMS_ITS | Encounter Summary ---
Author Organization [facility] Address [address] [place] [address] Care Team Providers Care Personnel Analyst Name Role Phone Unavailable Primary Care Provider Unavailabl e Encounter Details Date Type Department Care Team (Late st Contact Info) Description 05/01/2007 Results Only [facility] [address] [place] [address] Julia Morales MD [address] [place] [phone] Social History Tobacco Use Types Packs/Day Years Used Date Smoking Tobacco: Never Assessed Sex and Gender Information Value Date Recorded Sex Assigned at Not on file Gender Identity Not on file Sexual Orientation Not on file documented as of this encounter Plan of Treatment Not on file documented as of this encounter Procedures Procedure Name Priority Date/Time Associated Diagnosis Comments CYTOPATHOLOGY Routine 05/01/2007 0:00 EST documented in this encounter Results * CYTOPATHOLOGY (05/01/2007 0:00 EST) Pathology Report: CYTOPATHOLOGY REPORT Reports generated via electronic interface contain original data; however they are lacking the format of the original report. Caution should be taken when reading/interpreti ng unformatted reports. Name: ? AN PARRY ? Accession #: ? [id number] : ? 1950 (Age: 56) ??F ?Collect Date: ? 05/01/2007 Location: ? [facility] ? Receive Date: ? 05/01/2007 Provider: ?JULIA MORALES MD Copy to: ? Specimen/Source: ?ThinPrep Pap Test, Cervix/Endocervix, processed on [employer] ThinPrep Imaging System, with manual evaluation Last Menstrual Period: ? 02/09/05 Previous Gynecologic Pathology: ? Yes: 1988 Treatment History: ? Cryotherapy: 1988 Other: ? Additional clinical information: BCP in past HPVA - HPV testing requested if ASC-US on the current ThinPrep Pap test. ? SPECIMEN ADEQUACY ? Satisfactory for Evaluation - transformation zone component present GENERAL CATEGORIZATION ? Negative for Intraepithelial Lesion or Malignancy ? Document reviewed and electronically signed by: ? SURAJ Colon(ASCP) ? Report Date: ??05/06/2007 10:49 End of Report ANTONINA WALKER 05/01/2007 05/01/2007 Juila Morales MD PATHOLOGY ORDERABLES ANTONINA WALKER [address] [place] [address] documented in this encounter Visit Diagnoses Not on filedocumented in this encounter
--- OUTSIDE RECORDS SUMMARY | 2023-10-22 02:51 | XMS_ITS | Encounter Summary ---
Author Organization [facility] Address [address] [place] [address] Care Team Providers Care [employer] Consultant Name Role Phone Unavailable Primary Care Provider Unavailabl e Encounter Details Date Type Department Care Team (Late st Contact Info) Description 08/04/2009 Results Only [facility] Laboratory Services - [facility] ([facility] [address] [place] [address] Julia Morales MD [address] [place] [phone] Social History Tobacco Use Types Packs/Day Years Used Date Smoking Tobacco: Never Assessed Sex and Gender Information Value Date Recorded Sex Assigned at Not on file Gender Identity Not on file Sexual Orientation Not on file documented as of this encounter Plan of Treatment Not on file documented as of this encounter Procedures Procedure Name Priority Date/Time Associated Diagnosis Comments CYTOPATHOLOGY Routine 08/04/2009 0:00 EDT documented in this encounter Results * CYTOPATHOLOGY (08/04/2009 0:00 EDT) Pathology Report: CYTOPATHOLOGY REPORT ? Reports generated via electronic interface contain original data; ? however they are lacking the format of the original report. ? Caution should be taken when reading/interpreti ng unformatted reports. ? Name: ? DAISY, AN M ? Accession #: ? [id number] ? : ? 1950 (Age: 58) ??F ?Collect Date: ? 08/04/2009 ? Location: ? [facility] ? Receive Date: ? 08/05/2009 ? Provider: ?JULIA MORALES MD ? Copy to: ? Specimen/Source: ?Pap Test, Cervix/Endocervix, ThinPrep Imaging System ? with manual evaluation ? Last Menstrual Period: ? 12/2/05 ? Treatment History: ? Cryotherapy: 1988 ? Other: ? HPVA - HPV testing requested if ASC-US on the current ThinPrep Pap test. ? SPECIMEN ADEQUACY ? Satisfactory for Evaluation ? - transformation zone component present ? GENERAL CATEGORIZATION ? Negative for Intraepithelial Lesion or Malignancy ? INTERPRETATION ? Shift in chantale present suggestive of bacterial vaginosis. ? Document reviewed and electronically signed by: ? Kassandra Stearns, CT(ASCP)(IAC) ? Report Date: ??08/10/2009 11:43 ? End of Report ? [facility] 08/04/2009 08/05/2009 Julia Morales MD PATHOLOGY ORDERABLES [facility] [address] [place] [address] documented in this encounter Visit Diagnoses Not on filedocumented in this encounter
--- OUTSIDE RECORDS SUMMARY | 2023-10-22 02:51 | XMS_ITS | Encounter Summary ---
Author Organization [facility] Address [address] [place] [address] Care Team Providers Care Donor Services Team Leader Name Role Phone Unavailable Primary Care Provider Unavailabl e Encounter Details Date Type Department Care Team (Late st Contact Info) Description 12/12/2011 Results Only [facility] Laboratory Services - [facility] ([facility]) [address] [place], [place] [address] Julia Morales MD [address] [place] [phone] Social History Tobacco Use Types Packs/Day Years [...] Diagnosis Comments PAP TEST- RESULT ONLY Routine 12/12/2011 0:00 EDT documented in this encounter Results * PAP TEST- RESULT ONLY (12/12/2011 0:00 EDT) Pathology Report: CYTOPATHOLOGY REPORT Reports generated via electronic interface contain original data; however they are lacking the format of the original report. Caution should be taken when reading/interpreti ng unformatted reports. Name: ? AN PARRY ? Accession #: ? [id number] : ? 1950 (Age: 61) ??F ?Collect Date: ? 12/12/2011 Location: ? [facility] ? Receive Date: ? 12/13/2011 Provider: ?JULIA MORALES MD Copy to: ? Specimen/Source: ?Pap Test, Cervix, ThinPrep Imaging System with manual evaluation Last Menstrual Period: ? SPECIMEN ADEQUACY ? Satisfactory for Evaluation - transformation zone component present GENERAL CATEGORIZATION ? Negative for Intraepithelial Lesion or Malignancy ? Document reviewed and electronically signed by: ? SURAJ Godwin(ASCP) ? Report Date: ??12/19/2011 15:46 End of Report ANTONINA WALKER 12/12/2011 12/13/2011 Julia Morales MD PATHOLOGY ORDERABLES ANTONINA WALKER [address] [place] [address] documented in this encounter Visit Diagnoses Not on filedocumented in this encounter
--- OUTSIDE RECORDS SUMMARY | 2023-10-22 02:51 | XMS_ITS | Encounter Summary ---
Author Organization [facility] ALICIA Castaneda [address] Care Team Providers Care Editor City Name Role Phone Julia Chatterjee MD Primary Care Provider [phone] Reason for Visit * Reason Onset Date Comments Labs Only 10/25/2016 Encounter Details Date Type Department Care Team (Late Contact Info) Description 10/25/2016 Telephone Hematology/Oncology at [address] [phone] Mera Cintron RN Labs Only [...] Telephone Encounter - Mera Cintron RN - 10/25/2016 9:30 AM EDT WBC 2.53 and ANC 0.[address] Jay she will review and let us know plan. documented in this encounter Plan of Treatment Upcoming Encounters Date Type Department Care Team (Late Contact Info) Description 04/15/2024 1:00 PM EST Office Visit Hematology/Oncology at [address] [phone] Lee Ann Jay MD [facility] [place] [address] Leti Anderson APRN [facility] [address] [place] [address] documented as of this encounter Visit Diagnoses Not on filedocumented in this encounter Care Teams Editor City Relationship Specialty Start Date End Date Julia Chatterjee MD [facility] KINA FELIZ [address] [address] PCP - General 01/31/10 documented as of this encounter
--- OUTSIDE RECORDS SUMMARY | 2023-10-22 02:51 | XMS_ITS | Encounter Summary ---
Author Organization [facility] Address [facility] [place] [address] Care Team Providers Care Record Librarian Name Role Phone Julia Chatterjee MD Primary Care Provider [phone] Reason for Visit * Consultation (Routine) - Closed Specialty Diagnoses / Procedures Referred By Contac t Referred To Contact Hematology and Oncology Diagnoses leukopenia Julia Chatterjee MD [address] [place] [address] [facility] [address] [place] [address] [facility] Hem Onc [address] [place] [address] Referral ID Status Reason Start Date Expiration Date V isits Requested Visits Authorized [id number] Closed Consult, Test & Treat Connection Center 06/05/2016 06/05/2017 1 1 Encounter Details Date Type Department Care Team (Late st Contact Info) Description 07/09/2016 11:00 AM EDT Office Visit [place]ology [place] [phone] Lee Ann Rodriguez MD [facility] [address] [place] [address] Leukopenia, unspecified type (Primary Dx) Social History Tobacco Use Types Packs/Day Years [...] Sign Reading Time Taken Comments Blood Pressure 122/70 07/09/2016 11:00 AM EDT Pulse 57 07/09/2016 11:00 AM EDT Temperature 36.3 ??C (97.3 ??F) 07/09/2016 11:00 AM E DT Respiratory Rate 16 07/09/2016 11:00 AM EDT Oxygen Saturation 98% 07/09/2016 11:00 AM EDT Inhaled Oxygen Concentration - - Weight 65.8 kg (145 lb) 07/09/2016 11:00 AM EDT Height 160 cm (5' 2.99) 07/09/2016 11:00 AM EDT Body Mass Index 25.69 07/09/2016 11:00 AM EDT documented in this encounter Progress Notes * Mk Feliciano - 07/09/2016 11:00 AM EDT Images from the original note [...] 13.4, plt 162 Neutrophils 12.9 Lymphocytes 66.5 Roosevelt 19.3 Eosinophils 0.4 Basophils 0.0 Immature grans [...] WITH BX performed by MARY CASTRO at [facility] ENDOSCOPY ??? PRO COLONOSCOPY, REMV LESN, SNARE 07/05/2011 COLONOSCOPY, POLYPECTOMY, REMOVAL LESION BY SNARE performed by MARY CASTRO at [facility] ENDOSCOPY Medications; Current Outpatient Prescriptions on File Prior to Visit Medication Sig Dispense Refill ??? GLUCOSAMINE HCL/CHONDRO TRIVEDI A (GLUCOSAMINE-CHONDROITIN ORAL) ??? CALCIUM/MAGNESIUM (CALCIUM AND MAGNESIUM ORAL) ??? ERGOCALCIFEROL, VITAMIN D2, (VITAMIN D ORAL) ??? UNKNOWN TO PATIENT Reported on 07/09/2016 Indications: adrenal support ??? MULTIVITAMIN ORAL (Patient not taking: No sig reported) ??? COD LIVER OIL ORAL (Patient not taking: No sig reported) No current facility-administered medications on file prior to visit. Allergies: Allergies Allergen Reactions ??? Benzalkonium Chloride Family History: Father- 87, healthy Mother- 83, healthy 4 brothers and 2 sisters all healthy Social History: Lives in [facility]. . 1 son 38 years old- healthy. 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 Smoking status: Never Smoker ??? Smokeless tobacco: None ??? Alcohol use 1 shot of tequila few times a week Physical Examination Vitals: Temp: [36.3 ??C (97.3 ??F)] Heart Rate: [57] BP: (122)/(70) Resp: [16] SpO2: [98 %] General: Well appearing, in NAD Head: NCAT Eyes: anicteric, PERRLA, No conjunctival injection, EOMI ENT: no OP lesions/exudates Neck: Supple, full ROM CV: RRR, no murmur/gallops/rubs, No JVD Pulm: Non-labored, CTAB GI: ND, NABS, soft, NT, no rebound/guarding, no masses or hepatosplenomegaly Peripheral: No edema Skin: No rashes or other lesions on limited skin exam Neurological: alert and oriented to person, place, and time. No focal deficits Labs: In HPI Assessment and Recommendations: 65 y.o. Healthy female [...] would start treatment with low dose methotrexate. However, we recommend further testing testing with Peripheral smear, cbc, CMP, flow cytometry, SPEP, FLC, immunoglobulin,hepatits and HIV. We will call patient with restuls ?? -plan to obtain labs:Peripheral smear, cbc, CMP, flow cytometry, spep, immunoglobulin, FLC, Hep b, hep c, hiv - RTC in 2 months at [facility] ?? Plan discussed with attending. All of patient's questions were answered. Mk Feliciano MD Hematology Oncology Fellow Pager [phone] * Lee Ann Rodriguez MD - 07/09/2016 11:00 AM EDT ++++++++++++++++++++++++++++++++++++++++++++++++++++++++++++++++ Attending Addendum: I personally saw, examined and interviewed the patient. I agree with the history, physical, assessment and plan in the note by Dr Feliciano of the same date. I have reviewed all pertinent laboratory and radiographic findings. We discussed the patient in detail and formulated the assessment and plan together. It was my pleasure to meet this delightful previously healthy woman who is referred in consultationfor long history of leukopenia/neutropenia. Please see details in 's note, as well as her previous CBCs. Most recently she had a peripheral smear reviewed, which revealed large granulocytic lymphocytes, raising the question of LGL. Dr. Carlton note reviews other potential etiologies of leukopenia/neutropenia and we will assess for those as well today. The patient has no palpable splenomegaly exam today. Other cell lines are intact. She's had no increase in infections. No signs or history of autoimmune disorders. If the flow cytometry confirms LGL, and at this point she would not require treatment given that she does not have significant neutropenia and/or increased number of infections. She could be followedby watchful waiting. Given that her cytopenias have already been followed respectively for so long,assuming she is diagnosed with LGL, I plan to see her back in [facility] in about 3 months. If all is stable and she is well, then she could probably be followed every 6 months. Appreciate consultation. We will call patient's with results of the labs that were done today. documented in this encounter Miscellaneous Notes * Addendum Note - Lee Ann Rodriguez MD - 07/09/2016 4:30 PM EDTAddended by: LEE ANN RODRIGUEZ on: 07/09/2016 04:30 PM Modules accepted: Orders documented in this encounter Plan of Treatment Upcoming Encounters Date Type Department Care Team (Late st Contact Info) Description 04/15/2024 1:00 PM EST Office Visit Hematology/Oncology at [address] [phone] Lee Ann Rodriguez MD [facility] HEMATOLOGY [place] [address] Leti Anderson APRN [facility] DR HEMATOLOGY [place] [address] documented as of this encounter Results * Hepatitis B Surface Antigen (07/09/2016 12:00 PM EDT) Hepatitis B Surface Antigen Negative Negative [facility] Blood specimen (specimen) 07/09/2016 12:00 PM EDT 07/09/2016 12:09 PM EDT Narrative Resulting Agency Comment Spec In Lab Lee Ann Rodriguez MD CHEMISTRY ORDERA BLES [facility] [place] [address] * Hepatitis B Core Antibody, Total (07/09/2016 12:00 PM EDT) Hepatitis B Core Antibody Negative Negative [facility] Blood specimen (specimen) 07/09/2016 12:00 PM EDT 07/09/2016 12:09 PM EDT Narrative Resulting Agency Comment Spec In Lab Lee Ann Rodriguez MD CHEMISTRY ORDERA BLES [facility] [place] [address] * Hepatitis C Antibody (07/09/2016 12:00 PM EDT) Hepatitis C Antibody Negative Negative [facility] Comment: An updated Hepatitis C Ab assay reagent was implemented on 05/23/16. Please contact Dr. Alfaro at [phone] with any questions or concerns. Blood specimen (specimen) 07/09/2016 12:00 PM EDT 07/09/2016 12:09 PM EDT Narrative Resulting Agency Comment Spec In Lab Lee Ann Rodriguez MD CHEMISTRY ORDERA BLES Performing Organization Address City/[facility]/ZIP Co de Phone Number [facility] [place] [address] * HIV-1 RNA, quantitative, PCR (07/09/2016 12:00 PM EDT) [facility] HIV Viral Load Result (Qualitative) * RESULT: <20 copies/mL (Target Not Detected)* INDICATION FOR STUDY: HIV-1 Infection ANALYSIS: A real time PCR amplification assay was performed on extracted viral RNA for the purpose of quantification. SAMPLE: serum/plasma (1.0 mL minimum) METHOD: LIZZIE?? AmpliPrep / LIZZIE?? TaqMan?? HIV-1 Test v.2.0 LINEAR RANGE: 20 copies/mL ? 10,000,000 copies/mL plasma NOTE: The LIZZIE?? AmpliPrep / LIZZIE?? TaqMan?? HIV-1 Test v.2.0 has been approved by the U.S. Food and Drug Administration. Arash Roland, Ph.D. Director, Molecular Pathology [facility] Comment: [VERIFIED DATE]07.13.16 Verified By:Meeta Patrick (Electronic Signature) Blood specimen (specimen) 07/09/2016 12:00 PM EDT 07/12/2016 2:01 PM EDT Narrative Resulting Agency Comment Spec In Lab Lee Ann Rodriguez MD MOLECULAR LILA ROBERTS Performing Organization Address [facility]/ZIP Co de Phone Number [facility] [place] [address] * Immunoglobulins, Quantitative (07/09/2016 12:00 PM EDT) [facility] Immunoglobulin G 1,468 700 - 1,600 mg/dL [facility] IgA 238 70 - 400 mg/dL [facility] IgM 114 40 - 230 mg/dL [facility] Blood specimen (specimen) 07/09/2016 12:00 PM EDT 07/09/2016 12:09 PM EDT Narrative Resulting Agency Comment Spec In Lab Lee Ann Rodriguez MD CHEMISTRY ORDERA BLES Performing Organization Address [facility] Co de Phone Number [facility] [place] [address] * Free Light Chains, Serum (07/09/2016 12:00 PM EDT) [place] Free Light Chains 1.66 0.33 - 1.94 mg/dL [facility] Lambda Free Light Chains 1.54 0.57 - 2.63 mg/dL [facility] Garretson/Lambda Free Light Chain Ratio 1.0779 0.2600 - 1.6500 [facility] Blood specimen (specimen) 07/09/2016 12:00 PM EDT 07/09/2016 12:09 PM EDT Narrative Resulting Agency Comment Spec In Lab Lee Ann Rodriguez MD CHEMISTRY ORDERA BLES Performing Organization Address [facility] Co de Phone Number [facility] [place] [address] * Protein Electrophoresis, serum (07/09/2016 12:00 PM EDT) Total Prot Electrophoresis 7.9 6.1 - 8.0 gm/dL [facility] Albumin Electrophoresis 4.97 3.60 - 6.00 gm/dL [facility] Alpha 1 Globulin 0.17 0.10 - 0.30 gm/dL [facility] Alpha 2 Globulin 0.78 0.40 - 0.90 gm/dL [facility] Beta Globulin 0.77 0.50 - 1.00 gm/dL [facility] Gamma Globulin 1.21 0.50 - 1.30 gm/dL [facility] M1 Band None Detected [facility] Blood specimen (specimen) 07/09/2016 12:00 PM EDT 07/09/2016 12:09 PM EDT Narrative Resulting Agency Comment Spec In Lab Lee Ann Rodriguez MD CHEMISTRY ORDERA BLES Performing Organization Address City/[facility]/ZIP Co de Phone Number [facility] [place] [address] * Immunophenotyping Flow Cytometry (07/09/2016 12:00 PM EDT) Immunophenotyping Flow See Comment [facility] Comment: When completed by the Pathologist, the Flow Cytometry Report ([id number]) will display under the Pathology Results section within eDH. Specimen of unknown material (specimen) 07/09/2016 12:00 PM EDT 07/09/2016 12:09 PM EDT Narrative Resulting Agency Comment Spec In Lab Lee Ann Rodriguez MD HEMATOLOGY ORDER ASHLEY Performing Organization Address [facility] Co de Phone Number [facility] [place] [address] * (ABNORMAL) Comprehensive metabolic panel (non-fasting) (07/09/2016 12:00 PM EDT) Glucose 95 65 - 199 mg/dL [facility] Comment:Diabetes: >=200 mg/d L plus symptoms Blood Urea Nitrogen 17 8 - 18 mg/dL [facility] Creatinine 0.96 0.70 - 1.20 mg/dL [facility] Comment: Please note that the pediatric reference intervals supplied above were not validated at [facility]. Results from pediatric patients should be interpreted in conjunction to the patient's age, height and muscle mass. Sodium 140 135 - 145 mmol/L [facility] Potassium 4.2 3.5 - 5.0 mmol/L [facility] Comment: Please note: ??Patients with WBC >100,000 may have falsely elevated Potassium levels. ??For accurate Potassium quantification in these patients send serum separator tube (gold top) for subsequent determinations. ??Contact the Clinical Chemistry Laboratory if there are any questions. Chloride 100 98 - 107 mmol/L [facility] Carbon Dioxide 28 22 - 31 mmol/L [facility] Anion Gap 12 5 - 15 mmol/L [facility] Calcium 9.7 8.5 - 10.5 mg/dL [facility] Protein, Total 7.9 6.1 - 8.0 gm/dL [facility] Albumin 4.6 3.2 - 5.2 gm/dL [facility] Aspartate Aminotransferase 17 0 - 30 unit/L [facility] Alanine Aminotransferase 14 0 - 30 unit/L [facility] Alkaline Phosphatase 62 40 - 104 unit/L [facility] Bilirubin, Total 0.3 0.2 - 1.3 mg/dL [facility] Bilirubin, Direct 0.1 0.0 - 0.3 mg/dL [facility] Est Glomerular Filtration Rate 59(L) >=60 [facility] Comment: This estimated GFR (eGFR) value was calculated using the MDRD equation which has been validated on patients between the ages of 18 and 70. The MDRD should not be used to assess kidney function in patients < 18 years of age or in patients with extremes of body mass, or in patients with acute kidney failure. This value should be multiplied by 1.2 for patients. For further information please copy and paste the following links into your internet browser. http://[employer]/DHnkdep http://[employer]/DHMCnkf Blood specimen (specimen) 07/09/2016 12:00 PM EDT 07/09/2016 12:09 PM EDT Narrative Resulting Agency Comment Spec In Lab Lee Ann Rodriguez MD CHEMISTRY ORDERA BLES [facility] [place] [address] documented in this encounter Visit Diagnoses Diagnosis Leukopenia, unspecified type- Primary documented in this encounter Care Teams Record Librarian Relationship Specialty Start Date End Date Julia Chatterjee MD [facility] [address] [place] [address] PCP - General 01/31/10 documented as of this encounter
--- OUTSIDE RECORDS SUMMARY | 2023-10-22 02:51 | XMS_ITS | Encounter Summary ---
Author Organization [facility] [place] [address] Care Team Providers Care Metal Roofing Mechanic Name Role Phone Julia Chatterjee MD Primary Care Provider [phone] Encounter Details Date Type Department Care Team (Late st Contact Info) Description 07/12/2016 Telephone Hematology [place] [phone] Mk Feliciano MD [facility] DR HEMATOLOGY/[place] [address] Social History Tobacco Use Types Packs/Day Years Used Date Smoking Tobacco: Never Alcohol Use Standard Drinks/Week Comments Yes 1 (1 standard drink = 0.6 oz pur e alcohol) Sex and Gender Information Value Date Recorded Sex Assigned at Not on file Gender Identity Not on file Sexual Orientation Not on file documented as of this encounter Miscellaneous Notes * Telephone Encounter - Mk Feliciano - 07/12/2016 4:45 PM EDT I called the patient with the results of her lab. Her labs reveal ANC 640 and AMC 200. Her flow cytometry does not show LGL. Results for AN PARRY ( ) as of 07/12/2016 16:39 Ref. Range 07/09/2016 12:00 WBC Latest Ref [...] gm/dL 1.21 M1 Band Unknown None Detected [place] Free Light Chains Latest Ref Range: 0.33 - 1.94 mg/dL 1.66 Lambda Free Light Chains Latest Ref Range: 0.57 - 2.63 mg/dL 1.54 [place]/Lambda Free Light Chain Ratio Latest Ref Range: 0.2600 - 1.6500 1.0779 IgG Latest Ref Range: 700 - 1600 mg/dL 1468 IgA Latest Ref Range: 70 - 400 mg/dL 238 IgM Latest Ref Range: 40 - 230 mg/dL 114 HepB Surface Ag Latest Ref Range: Negative Negative Hep B Core Ab Latest Ref Range: Negative Negative Hepatitis C Ab Latest Ref Range: Negative Negative Flow cytometry 1. ??The T-cells show a reversed CD4:CD8 ratio, but no specific abnormal ? immunophenotypic findings are seen ?2. ??No monotypic B-cell population is identified Given the leukopenia, we recommend a bone marrow biopsy for complete evaluation to rule out any hematologic process. I discussed the bmbx procedure with the patient. Patient at this time would like to think about it and discuss with Dr. Jay during her clinic visit. documented in this encounter Plan of Treatment Upcoming Encounters Date Type Department Care Team (Late st Contact Info) Description 04/15/2024 1:00 PM EST Office Visit Hematology/Oncology at [address] [phone] Lee Ann Jay MD [facility] [place] [address] An Anderson APRN [facility] [place] [address] documented as of this encounter Visit Diagnoses Not on filedocumented in this encounter Care Teams Metal Roofing Mechanic Relationship Specialty Start Date End Date Julia Chatterjee MD [facility] [address] [place] [address] PCP - General 01/31/10 documented as of this encounter
--- OUTSIDE RECORDS SUMMARY | 2023-10-22 02:51 | XMS_ITS | Encounter Summary ---
Author Organization [facility] Address [facility] [place] [address] Care Team Providers Care It Systems Administrator Name Role Phone Julia Chatterjee MD Primary Care Provider [phone] Encounter Details Date Type Department Care Team (Late st Contact Info) Description 11/07/2016 2:00 PM EDT Office Visit Hematology/Oncology at [address] [address] Lee Ann Jay MD [facility] [address] [place] [address] Neutropenia, unspecified type; Ulcerative pancolitis without complication Social History Tobacco Use Types Packs/Day [...] Sign Reading Time Taken Comments Blood Pressure 112/69 11/07/2016 2:04 PM EDT Pulse 61 11/07/2016 2:04 PM EDT Temperature 36.8 ??C (98.2 ??F) 11/07/2016 2:04 PM ED T Respiratory Rate 16 11/07/2016 2:04 PM EDT Oxygen Saturation 100% 11/07/2016 2:04 PM EDT Inhaled Oxygen Concentration - - Weight 66.2 kg (146 lb) 11/07/2016 2:04 PM EDT Height 160 cm (5' 2.99) 11/07/2016 2:04 PM EDT copied Body Mass Index 25.87 11/07/2016 2:04 PM EDT documented in this encounter Progress Notes * Lee Ann Jay MD - 11/07/2016 2:00 PM EDT Images from the original [...] Her DINO was positive in Oct 2016. 01/2007 wbc 3.7 04/2007 WBC 3.9, hgb 14.4, plt 246 07/2011 wbc 4.4, hgb 13.4, plt 222 05/29/2016 wbc 1.81, hgb 13.4, plt 162 Neutrophils 12.9 Lymphocytes 66.5 [place] 19.3 Eosinophils 0.4 Basophils 0.0 Immature grans [...] History: Patient Active Problem List Diagnosis ??? Ulcerative colitis Diagnosed around 2011. Worked with optomechanical technician with resolution of symptoms food based supplements ??? Leukopenia WBC in 2-3 range with ANC in 500-1000 range No infections asymptomatic Flow cytometry DIAGNOSIS PERIPHERAL BLOOD, FLOW CYTOMETRY: ?1. ??The T-cells show a reversed CD4:CD8 ratio, but no specific abnormal ? immunophenotypic findings are seen (see comment) ?2. ??No monotypic B-cell population is identified DINO + H/o UC but presently asymptomatic. Anti-granulocyte ab pending. Past Surgical History: Procedure Laterality Date ??? PRO COLONOSCOPY, BIOPSY 07/05/2011 COLONOSCOPY FLEXIBLE, WITH BX performed by MARY CASTRO at [facility] ENDOSCOPY ??? PRO COLONOSCOPY, REMV LESN, SNARE 07/05/2011 COLONOSCOPY, POLYPECTOMY, REMOVAL LESION BY SNARE performed by MARY CASTRO at [facility] ENDOSCOPY Medications; Current Outpatient Prescriptions on File Prior to Visit Medication Sig Dispense Refill ??? ascorbic acid, vitamin C, (VITAMIN C) 500 mg Tablet Take 500 mg by mouth daily. ??? MULTIVITAMIN/ZINC SULFATE/SULTANA (IVYZGEROAIZD-GELP-BYAEIDPT ORAL) Take 1 tablet by mouth daily. ??? UNKNOWN TO PATIENT [...] sisters all healthy Social History: Lives in [facility]. . 1 son 38 years old- healthy. 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 Likes to bike in [place] w/ her . Social History Substance Use Topics ??? Smoking status: Never Smoker ??? Smokeless tobacco: None ??? Alcohol use 1 shot of tequila few times a week Physical Examination Vitals: Temp: [36.8 ??C (98.2 ??F)] Heart Rate: [61] BP: (112)/(69) Resp: [16] SpO2: [100 %] General: Well [...] gm/dL 1.21 M1 Band Unknown None Detected [place] Free Light Chains Latest Ref Range: 0.33 - 1.94 mg/dL 1.66 Lambda Free Light Chains Latest Ref Range: 0.57 - 2.63 mg/dL 1.54 [place]/Lambda Free Light Chain Ratio Latest Ref Range: 0.2600 - 1.6500 1.0779 IgG Latest Ref Range: 700 - 1600 mg/dL 1468 IgA Latest Ref Range: 70 - 400 mg/dL 238 IgM Latest Ref Range: 40 - 230 mg/dL 114 HIV Viral Load Unknown * RESULT: <20 rn endoscopy... HepB Surface Ag Latest Ref Range: Negative Negative Hep B Core Ab Latest Ref Range: Negative Negative Hepatitis C Ab Latest Ref Range: Negative Negative date wbc anc hgb plt 07/09/16 2.1 0.64 13.8 211 08/03/16 2.65 0.71 13.7 199 10/25/16 2.53 0.510 13.6 181 DINO positive Assessment and Recommendations: 65 y.o. Healthy female [...] flow cytometry, SPEP, FLC, immunoglobulin,hepatits and HIV. DINO was positive, not surprising in setting of h/o UC. Flow cytometry returned and there were no signs of LGL. This is good, for her, but it gives no answer to the chronic leukopenia and neutropenia. Continues to have no infections in only thing we didn't check was anti-granulocyte antibody. We can see check that. Unfortunately there is no treatment but at least we know the cause. To send out and usually takes one to 2 weeks to return. She has been working with a optomechanical technician who started her on selenium and zinc. Counts are a bit higher so we will see. [employer] has been helping her with bowel issues. [...] infections. Plan: ?? Consider challenge of GCSF in future to use prior to procedures, prn ?? Will check antigranulocyte ab - results pending. ?? Will image spleen - US at [facility] ?? BMBx with sedation ?? RTC 2 weeks after both of These are complete I explained the need for a BMBx. I reviewed the procedure and risks of pain, bleeding and infectionalthough the latter 2 are unusual. All questions were answered. she consent to treatment. She was very nervous so Radha Cooper graciously agreed to discuss w/ her which was very helpful to her. She consents. I discussed all of the above with the patient and all of her questions were answered. Support and counseling given as appropriate. This note was written or modified using Storyvine voice recognition software. The final note was screened for mistakes. Please excuse any remaining errors. ?? documented in this encounter Plan of Treatment Upcoming Encounters Date Type Department Care Team (Late st Contact Info) Description 04/15/2024 1:00 PM EST Office Visit Hematology/Oncology at [address] [phone] Lee Ann Jay MD [facility] [address] [place] [address] An Anderson APRN [facility] [address] [place] [address] documented as of this encounter Visit Diagnoses Diagnosis Neutropenia, unspecified type Ulcerative pancolitis without complication documented in this encounter Care Teams It Systems Administrator Relationship Specialty Start Date End Date Julia Chatterjee MD Sushant DORADO [address] [place] [id number] PCP - General 01/31/10 documented as of this encounter
--- OUTSIDE RECORDS SUMMARY | 2023-10-22 02:51 | XMS_ITS | Encounter Summary ---
Author Organization [facility] Address [facility] [place] [address] Care Team Providers Care Delivery Assistant Name Role Phone Julia Chatterjee MD Primary Care Provider [phone] Encounter Details Date Type Department Care Team (Latest Contact Info) Description 07/09/2016 11:52 AM EDT - 07/09/2016 11:59 PM EDT Hospital Encounter Hematology [place] [address] Leukopenia, unspecified type Discharge Disposition: Home Social History Tobacco Use [...] Upcoming Encounters Date Type Department Care Team ( Contact Info) Description 04/15/2024 1:00 PM EST Office Visit Hematology/Oncology at [address] [phone] Lee Ann Jay MD [facility] HEMATOLOGY [place] [address] Leti Anderson APRN [facility] [place] [address] documented as of this encounter Procedures Procedure Name Priority Date/Time Associated Diagnosis Comments IMMUNOGLOBULIN FREE LIGHT CHAINS, SERUM Routine 07/09/2016 12:00 PM EDT Leukopenia, unspecified type IMMUNOPHENOTYPING FLOW CYTOMETRY (BLOOD) Routine 07/09/2016 12:00 PM EDT Leukopenia, unspecified type IMMUNOGLOBULINS, QUANTITATIVE Routine 07/09/2016 12:00 PM EDT Leukopenia, unspecified type HEMOGRAM Routine 07/09/2016 12:00 PM EDT Leukopenia, unspecified type DIFFERENTIAL, AUTOMATED Routine 07/10/19 17 12:00 PM EDT Leukopenia, unspecified type HEPATITIS C ANTIBODY Routine 07/09/2016 12:00 PM EDT Leukopenia, unspecified type HEPATITIS B CORE ANTIBODY, TOTAL Routine 07/09/2016 12:00 PM EDT Leukopenia, unspecified type HIV-1 RNA, QUANTITATIVE, PCR Routine 07/09/2016 12:00 PM EDT Leukopenia, unspecified type HEPATITIS B SURFACE ANTIGEN Routine 07/09/2016 12:00 PM EDT Leukopenia, unspecified type CBC (WITH DIFF) Routine 07/09/2016 12:00 PM EDT Leukopenia, unspecified type PROTEIN ELECTROPHORESIS, SERUM Routine 07/09/2016 12:00 PM EDT Leukopenia, unspecified type COMPREHENSIVE METABOLIC PANEL Routine 07/09/2016 12:00 PM EDT Leukopenia, unspecified type FLOW CYTOMETRY REPORT Routine 07/09/2016 12:00 PM EDT documented in this encounter Results * (ABNORMAL) Differential, Automated (07/09/2016 12:00 PM EDT) Neutrophil % 30.9 % [facility] Neutrophil Absolute 0.64(L) 1.70 - 6.10 x10(3)/ L [facility] Lymph % 58.9 % [facility] Lymphocytes Abs 1.2 0.9 - 3.2 x10(3)/ L [facility] Monocyte % 9.7 % [facility] Monocyte Abs 0.2(L) 0.3 - 0.9 x10(3)/[facility] Eos % 0.5 % [facility] Eosinophils Abs 0.0 0.0 - 0.4 x10(3)/[facility] Basophil % 0.0 % [facility] Baso Absolute 0.0 0.0 - 0.1 x10(3)/[facility] Immature Gran % 0.00 % [facility] Comment: Immature granulocytes(IG's)percentage and absolute count will include metamyelocytes, myelocytes, and promyelocytes. Blood smears from CBCs yielding IG's will be scanned manually for concordance. If this scan disagrees with the automated IG or if promyelocytes are noted, a manual differential will be performed. Immature Gran Absolute 0.00 0.00 - 0.04 x10(3)/ L [facility] Blood specimen (specimen) 07/09/2016 12:00 PM EDT 07/09/2016 12:09 PM EDT Narrative Resulting Agency Comment Spec In Lab Lee Ann Jay MD HEMATOLOGY ORDER ASHLEY [facility] [place] [address] * (ABNORMAL) Hemogram (07/09/2016 12:00 PM EDT) [facility] White Blood Cell 2.1(L) 4.0 - 9.5 x10(3)/ L [facility] Red Blood Cell 4.85 4.00 - 5.21 x10(6)/mc L [facility] Hemoglobin 13.8 11.7 - 15.5 gm/dL [facility] Hematocrit 42.7 35.7 - 45.8 % [facility] Mean Cell Volume 88.0 82.6 - 94.4 fL [facility] Mean Cell Hemoglobin 28.5 27.1 - 32.0 pg [facility] Mean Cell Hemoglobin Concentration 32.3 31.7 - 35.0 gm/dL [facility] Platelet 211 145 - 357 x10(3)/mc L [facility] RDW Standard Deviation 40.5 37.0 - 46.0 fL [facility] RDW coefficient of variation 12.5 11.5 - 14.1 % [facility] Mean Platelet Volume 10.1 7.6 - 12.9 fL [facility] NRBC% auto 0.0 % [facility] NRBC Absolute 0.000 0.000 - 0.000 x10(3)/ L [facility] Blood specimen (specimen) 07/09/2016 12:00 PM EDT 07/09/2016 12:09 PM EDT Narrative Resulting Agency Comment Spec In Lab Lee Ann Jay MD HEMATOLOGY ORDER ASHLEY [facility] [place] [address] * Hepatitis B Surface Antigen (07/09/2016 12:00 PM EDT) Hepatitis B Surface Antigen Negative Negative [facility] Blood specimen (specimen) 07/09/2016 12:00 PM EDT 07/09/2016 12:09 PM EDT Narrative Resulting Agency Comment Spec In Lab Lee Ann Jay MD CHEMISTRY ORDERA BLES Performing Organization Address City/[facility]/ZIP Co de Phone Number [facility] [place] [address] * Hepatitis B Core Antibody, Total (07/09/2016 12:00 PM EDT) [facility] Hepatitis B Core Antibody Negative Negative [facility] Blood specimen (specimen) 07/09/2016 12:00 PM EDT 07/09/2016 12:09 PM EDT Narrative Resulting Agency Comment Spec In Lab Lee Ann Jay MD CHEMISTRY ORDERA BLES Performing Organization Address [facility] Co de Phone Number [facility] [place] [address] * Hepatitis C Antibody (07/09/2016 12:00 PM EDT) [facility] Hepatitis C Antibody Negative Negative [facility] Comment: An updated Hepatitis C Ab assay reagent was implemented on 05/23/16. Please contact Dr. Alfaro at [phone] with any questions or concerns. Blood specimen (specimen) 07/09/2016 12:00 PM EDT 07/09/2016 12:09 PM EDT Narrative Resulting Agency Comment Spec In Lab Lee Ann Jay MD CHEMISTRY ORDERA BLES Performing Organization Address City/[facility] Co de Phone Number [facility] [place] [address] * HIV-1 RNA, quantitative, PCR (07/09/2016 12:00 PM EDT) [facility] HIV Viral Load Result (Qualitative) * RESULT: [...] Administration. Arash Roland, Ph.D. Director, Molecular Pathology [facility] Comment: [VERIFIED DATE]07.13.16 Verified By:Meeta Patrick (Electronic Signature) Blood specimen (specimen) 07/09/2016 12:00 PM EDT 07/12/2016 2:01 PM EDT Narrative Resulting Agency Comment Spec In Lab Lee Ann Jay MD MOLECULAR LILA ROBERTS Performing Organization Address [facility] Co de Phone Number [facility] [place] [address] * Immunoglobulins, Quantitative (07/09/2016 12:00 PM EDT) Pathologist [facility] Immunoglobulin G 1,468 700 - 1,600 mg/dL [facility] IgA 238 70 - 400 mg/dL [facility] IgM 114 40 - 230 mg/dL [facility] Blood specimen (specimen) 07/09/2016 12:00 PM EDT 07/09/2016 12:09 PM EDT Narrative Resulting Agency Comment Spec In Lab Lee Ann Jay MD CHEMISTRY ORDERA BLES Performing Organization Address City/[facility] Co de Phone Number [facility] [place] [address] * Free Light Chains, Serum (07/09/2016 12:00 PM EDT) Pathologist [facility] [place]ende Free Light Chains 1.66 0.33 - 1.94 mg/dL [facility] Lambda Free Light Chains 1.54 0.57 - 2.63 mg/dL [facility] [place]/Lambda Free Light Chain Ratio 1.0779 0.2600 - 1.6500 [facility] Blood specimen (specimen) 07/09/2016 12:00 PM EDT 07/09/2016 12:09 PM EDT Narrative Resulting Agency Comment Spec In Lab Lee Ann Jay MD CHEMISTRY ORDERA BLES Performing Organization Address [facility]/ZIP Co de Phone Number [facility] [place] [address] * Protein Electrophoresis, serum (07/09/2016 12:00 PM EDT) Pathologist [facility] Total Prot Electrophoresis 7.9 6.1 - 8.0 gm/dL [facility] Albumin Electrophoresis 4.97 3.60 - 6.00 gm/dL [facility] Alpha 1 Globulin 0.17 0.10 - 0.30 gm/dL [facility] Alpha 2 Globulin 0.78 0.40 - 0.90 gm/dL [facility] Beta Globulin 0.77 0.50 - 1.00 gm/dL [facility] Gamma Globulin 1.21 0.50 - 1.30 gm/dL [facility] M1 Band None Detected [facility] Blood specimen (specimen) 07/09/2016 12:00 PM EDT 07/09/2016 12:09 PM EDT Narrative Resulting Agency Comment Spec In Lab Lee Ann Jay MD CHEMISTRY ORDERA BLES Performing Organization Address [facility]/ZIP Co de Phone Number [facility] [place] [address] * Immunophenotyping Flow Cytometry (07/09/2016 12:00 PM EDT) Immunophenotyping Flow See Comment [facility] Comment: When completed by the Pathologist, the Flow Cytometry Report ([id number]) will display under the Pathology Results section within [facility]. Specimen of unknown material (specimen) 07/09/2016 12:00 PM EDT 07/09/2016 12:09 PM EDT Narrative Resulting Agency Comment Spec In Lab Lee Ann Jay MD HEMATOLOGY ORDER ASHLEY [facility] [place] [address] * (ABNORMAL) Comprehensive metabolic panel (non-fasting) (07/09/2016 12:00 PM EDT) Glucose 95 65 - 199 mg/dL [facility] Comment:Diabetes: >=200 mg/d L plus symptoms Blood Urea Nitrogen 17 8 - 18 mg/dL [facility] Creatinine 0.96 0.70 - 1.20 mg/dL [facility] Comment: Please note that the pediatric reference intervals supplied above were not validated at [facility]. Results from pediatric patients should be interpreted in conjunction to the patient's age, height and muscle mass. Sodium 140 135 - 145 mmol/L [facility] Potassium 4.2 3.5 - 5.0 mmol/L [facility] Comment: Please note: ??Patients with WBC >100,000 may have falsely elevated Potassium levels. ??For accurate Potassium quantification in these patients send serum separator tube (gold top) for subsequent determinations. ??Contact the Clinical Chemistry Laboratory if there are any questions. Chloride 100 98 - 107 mmol/L [facility] Carbon Dioxide 28 22 - 31 mmol/L [facility] Anion Gap 12 5 - 15 mmol/L [facility] Calcium 9.7 8.5 - 10.5 mg/dL [facility] Protein, Total 7.9 6.1 - 8.0 gm/dL [facility] Albumin 4.6 3.2 - 5.2 gm/dL [facility] Aspartate Aminotransferase 17 0 - 30 unit/L [facility] Alanine Aminotransferase 14 0 - 30 unit/L [facility] Alkaline Phosphatase 62 40 - 104 unit/L [facility] Bilirubin, Total 0.3 0.2 - 1.3 mg/dL [facility] Bilirubin, Direct 0.1 0.0 - 0.3 mg/dL [facility] Est Glomerular Filtration Rate 59(L) >=60 [facility] Comment: This estimated GFR (eGFR) [...] the following links into your internet browser. [email or web address] Blood specimen (specimen) 07/09/2016 12:00 PM EDT 07/09/2016 12:09 PM EDT Narrative Resulting Agency Comment Spec In Lab Lee Ann Jay MD CHEMISTRY ORDERA [facility] [place] [address] * Flow Cytometry Report (07/09/2016 12:00 PM EDT) Flow Cytometry Report [id number] ?Location: 3K The signing pathologist has (i) examined the relevant preparation(s) for the specimen(s) and (ii) rendered or confirmed the diagnosis(es). . ?Flow Cytometry DIAGNOSIS PERIPHERAL BLOOD, FLOW CYTOMETRY: ?? 1. ??The T-cells show a reversed CD4:CD8 ratio, but no specific abnormal ?immunophenotypic findings are seen (see comment) ?? 2. ??No monotypic B-cell population is identified COMMENT: The CBC from 07/09/2016 is reviewed and the patient ?? 's history of neutropenia is noted. No absolute lymphocytosis is seen at this time. Although a relative increase in the proportion of CD8+ T-lymphocytes may be seen in cases of T-LGL leukemia, overall the immunophenotypic findings are nonspecific for this diagnosis. If there is ongoing clinical concern, evaluation of a bone marrow biopsy with T-cell clonality studies is recommended. Electronically signed by: ??Kieran Bonner MD Verified: ??07/09/2016 ?Hematopathologist DISCUSSION The lymphocyte enriched gate represents about 55% of the total events, and this gated population consists mostly of T-cells (69%), B-cells (1%), and NK-cells (29%). The T-cells show a reversed CD4:CD8 ratio of about 1:1.4. No shankar-T-cell marker aberrancies or specifically abnormal marker expression is identified. There is no abnormal co-expression of CD16 and CD57.No abnormal NK-cell population is appreciated. The B-cells are polytypic with a kappa:lambda ratio of about 1.5:1. Flow analysis is an ancillary study. A definite diagnosis requires correlation with the morphologic features of this process and if necessary, correlation with other ancillary studies like immunohistochemistr y, enzyme cytochemistry and/or cyto/ molecular genetics. This test was developed and its performance characteristics determined by the Clinical Flow Cytometry Laboratory at [facility]. It has not been cleared or approved [...] high complexity clinical laboratory testing. SPECIMEN PROCESSING [id number] Cells for immunophenotypic analysis were derived from blood. ??CD45 vs side scatter gating was utilized to identify a lymphoid analysis region that comprises approximately 53-55% of all cells. The following markers were assessed: CD2, CD3, CD4, CD5, CD7, CD8, CD10, CD16, CD19, CD45, CD56, CD57, kappa light chain, and lambda light chain CLINICAL INFORMATION Per EMR, the patient is a 65 year old lady with a history of leukopenia and UC. Peripheral blood flow cytometry was requested to evaluate for abnormal lymphocyte populations. [facility] 07/09/2016 12:0 0 PM EDT Mk Feliciano MD PATHOLOGY/CYTOLOGY O OMI [facility] [place] [address] documented in this encounter Visit Diagnoses Diagnosis Leukopenia, unspecified type documented in this encounter Care Teams Delivery Assistant Relationship Specialty Start Date End Date Julia Chatterjee MD [facility] KINA DORADO [address] [place] [address] PCP - General 01/31/10 documented as of this encounter
--- OUTSIDE RECORDS SUMMARY | 2023-10-22 02:51 | XMS_ITS | Encounter Summary ---
Author Organization [facility] Address [facility] [place] [address] Care Team Providers Care Extrusion Die Coordinator Name Role Phone Julia Chatterjee MD Primary Care Provider [phone] Encounter Details Date Type Department Care Team (Late st Contact Info) Description 01/08/2017 8:33 AM EDT - 01/08/2017 10:06 AM EDT Hospital Encounter [place] [address] Lee Ann Jay MD [facility] HEMATOLOGY [place] [address] Discharge Disposition: Home Social History Tobacco Use [...] this encounter Discharge Instructions * Discharge Instructions* Gracy Rhodes I, RN - 01/08/2017 8:41 AM EDT [...] 5pm or on a weekend: Call the [facility] boxer operator at and ask for the physician concrete batching plant operator covering for your doctor. Instructions following sedation [...] occurs, please contact your M. D. [address] ??? [place] [address] ??? [phone] ??? [email or web address] [email or web address] ??? [facility] ??? [facility] ??? [facility] documented in this encounter Medications at Time [...] this encounter H&P Notes * Radha Cooper, JAYLEN - 01/08/2017 9:12 AM EDT Images from [...] to the procedure. Discharge to: Home Radha Cooper MSN, MOLD SHAKER Nurse Practitioner Section of Hematology/Oncology [facility] Office phone: documented in this encounter Procedure Notes * Radha Cooper APRN - 01/08/2017 9:44 AM EDTAssociated Order(s): ([facility]) UNILAT BONE MARROW BIOSPY; ([facility] MS[facility])BONE MARROW ASP PERFORMED W/BX THRU BX INCISION BONE MARROW BIOPSY AND ASPIRATION PROCEDURE NOTE Bone Marrow Biopsy & Aspiration with Conscious Sedation - Unilateral Date/Time of Procedure: 01/08/2017 Proceduralist: Radha Cooper, RN, MS, MEDIA SPECIALIST DIAGNOSIS: neutropenia Pre-Procedure: (x) Consent signed and [...] 1:00 PM EST Office Visit Hematology/Oncology at [address] [phone] Lee Ann Jay MD [facility] HEMATOLOGY [place] [address] Leti Anderson APRN [facility] HEMATOLOGY [place] [address] documented as of this encounter Procedures Procedure [...] FINAL REPORT Routine 017 9:31 AM EDT [facility] [place]-[facility]ACE Routine 01/08/2017 9 :31 AM EDT IRON STAIN, BONE MARROW Routine 01/09/20 17 9:31 AM EDT BONE MARROW PANEL ([facility]/CGP/APD) Routine 01/08/2017 9:31 AM EDT ([facility] MS[facility]G) [...] chromo report acquired (01/08/2017 11:45 AM EDT) [facility] Cytogenetics Acquired Report Final Report ?[id number] Specimen Type: Bone Marrow Specimen Condition: ~ [...] and other laboratory testing results is suggested. 01.17.17 (Electronic Signature) Verified By: Christiano PONCE, Ph.D., Liming Director, Cytogenetics [facility] 01/08/2017 11:4 5 AM EDT Radha Cooper APRN HEMATOLOGY ORDERABLE S [facility] [place] [address] * ([facility])BONE MARROW ASP PERFORMED W/BX THRU BX INCISION (01/08/2017 9:45 AM EDT) Narrative Radha Cooper, MOLD SHAKER - 01/08/2017 9:45 AM EDT Radha Cooper APRN ? 01/08/2017 ??9:45 AM BONE MARROW BIOPSY AND ASPIRATION PROCEDURE NOTE Bone Marrow Biopsy & Aspiration with Conscious Sedation - Unilateral Date/Time of Procedure: 01/08/2017 Proceduralist: Radha Cooper, RN, MS, MEDIA SPECIALIST DIAGNOSIS: neutropenia Pre-Procedure: (x) Consent signed and [...] (01/08/2017 9:45 AM EDT) Narrative Radha Cooper, MOLD SHAKER - 01/08/2017 9:45 AM EDT Radha Cooper, MOLD SHAKER ? 01/08/2017 ??9:45 AM BONE MARROW BIOPSY AND ASPIRATION PROCEDURE NOTE Bone Marrow Biopsy & Aspiration with Conscious Sedation - Unilateral Date/Time of Procedure: 01/08/2017 Proceduralist: Radha Cooper, RN, MS, MEDIA SPECIALIST DIAGNOSIS: neutropenia Pre-Procedure: (x) Consent signed and [...] Report (01/08/2017 9:31 AM EDT) Final Diagnosis [id number] ? Location: [facility] The signing pathologist has (i) examined the relevant preparation(s) for the specimen(s) and (ii) rendered or confirmed the diagnosis(es). . ? Final Integrated Report INTEGRATED DIAGNOSIS Patient: ??[id number] ?? LETI PARRY Bone Marrow Integrated Results For [id number] == SPECIMEN RESULTS == 1. Normocellular marrow [...] cell population or increase in blasts detected. [place] FLOW REPORT for NK/LGL analysis : NORMAL . No monotypic B-cell population, phenotypically aberrant T-cell population or increase in blasts identified. T-cells/ NK-cells: ?Normal phenotype by CD2, CD3, CD4, CD45, ? CD5, CD7, CD8, CD16, CD56, CD57, CD94, NKG2a, and TCR-gamma/delta. KIR panel: ?No monotypic, normal pattern of HO978l, CV703m, and GI059s (p70). Molecular genetic analysis: ? T CELL [...] results from all diagnostic studies performed at [facility] on this particular biopsy specimen. ??Please refer to the primary report(s) of each individual study for complete text and additional study details. Electronically signed by: ??Shad Rubio MD Verified: ??03/18/2017 ?Hematopathologist Performed at: ??-[facility] Dept. of Pathology, [place], [place] ?Molecular Genetics RESULTS ? T CELL RECEPTOR GENE REARRANGEMENT BY PCR INDICATION FOR STUDY: ?? Neutropenia ?LGL; Assess clonality. ANALYSIS: ?? Examination of isolated DNA for rearrangement of the T cell receptor genes by polymerase chain reaction (PCR). SAMPLE: ?? 01/08/2017 - bone marrow ?? [[id number]] [MGDL 5293] METHODS: ??DNA was isolated, after cell lysis, from formalin-fixed paraffin embedded tissue. ??PCR was performed using [employer] ??'s TCR Beta gene clonality assay (primer mixes TBA, TBB, TBC), and TCR Gamma gene clonality assay (primer mixes TGA and TGB). ??Fluorescently labeled PCR products were using the Applied Coreworks 3500 capillary electrophoresis system. RESULTS: ??The appropriate [...] pesistance of clone. In the BIOMED2 study (Miguelangel et. al. Leukemia. ??2002; 17 (12):3747-1205), the Invivoscribe B cell IgH gene rearrangement assay was [...] determined by the Molecular Pathology Laboratory at [facility]. It has not been cleared or approved by the U.S. Food and Drug Administration. However, as a C.L.I.A. licensed ??laboratory, our facility is approved for such high complexity clinical testing. _ Electronically signed by: ??Shad Rubio MD Verified: ??01/21/2017 ?Hematopathologist Performed at: ??-[facility] Dept. of Pathology, [place], [place] ? Bone Marrow Final DIAGNOSIS 1. Normocellular marrow with normal trilineage hematopoesis, with minor CD8+ T-cell interstitial infiltrate (5% of marrow) 2. Neutropenia, increased large granular lymphocytes, peripheral blood . DIAGNOSIS 3. NK clonality studies pending. Electronically signed by: ??Shad Rubio MD Verified: ??01/11/2017 ?Hematopathologist Performed at: ??-[facility] Dept. of Pathology, [place], [place] DISCUSSION The findings are suspicious ??but not diagnostic for ?Large Granular lymphocytic Leukemia . The T lymphocytes are CD8 dominant, but do not show aberrancy by flow analysis. NK cells are not interrogated for clonality by our studies and clonality studies ( KIR assessment by flow ) are being pursued at the [facility]. Should cytopenias persist , it may [...] developed and their performance characteristics determined by [facility] Clinical Laboratories. ??They have not been cleared [...] Rubio MD Verified: ??01/09/2017 ?Hematopathologist Performed at: ??-[facility] Dept. of Pathology, [place], [place] DISCUSSION Blasts based on CD45 expression and orthogonal light scatter, are not increased. The T-lymphocytes, CD56+ NK cells and B- lymphocytes comprise approx 69%, 30%, 2% of the gated population, respectively. The CD19 positive B-cells have a polytypic expression of surface immunoglobulin light chain ([place]:Lambda ratio at 1.6). The T-cells are an admixture of CD4+ and CD8+ T lymphocytes (ratio of 0.6). No loss or atypical intensity distributions are seen for any shankar T antigen (CD2, 3, 4+8, 5, 7). There is no increase in PF13-cspieamn/CD3-n eg NK cells or CD3+CD16+ aberrant T cells. Flow analysis is an ancillary study. A definite diagnosis requires correlation with the morphologic features of this process and if necessary, correlation with other ancillary studies like immunohistochemistr y, enzyme cytochemistry and/or cyto/ molecular genetics. This test was developed and its performance characteristics determined by the Clinical Flow Cytometry Laboratory at [facility]. It has not been cleared or [...] high complexity clinical laboratory testing. SPECIMEN PROCESSING [id number] Cells for immunophenotypic analysis were derived from bone marrow aspirate. ??CD45 vs side scatter gating was utilized to identify a lymphoid analysis region that comprises approximately 13-15% of all cells. The following markers were assessed: CD2, CD3, CD4, CD5, CD7, CD8, CD10, CD16, CD19, CD45, CD56, CD57, kappa light chain, and lambda light chain. CLINICAL INFORMATION neutropenia 03/18/2017 5:14 PM [facility] BONE MARROW STRUCTURE / Unknown 01/08/2017 9:31 AM EDT 01/08/2017 9:31 AM EDT Radha Cooper APRN PATHOLOGY/CYTOLOGY O RDERABLES [facility] [place] [address] * [facility] Mace Test-Mace (01/08/2017 9:31 AM EDT) [facility] Mace Test ?Result ? Flag ??Unit ??RefValue [...] reagent. ?Its performance characteristics were determined by [facility] in a manner consistent with CLIA [...] KIR panel: ??No monotypic, normal pattern ?of TB448u, IJ145n, and IV550g (p70). ?Quality assessment: ??Specimen received within validated ?guidelines. ??Microscopic Description ? SEE COMMENTS ?A Pshmod-Htdcno-evrrpt d slide prepared from the flow ?cytometry specimen is examined. ??The specimen contains ?maturing hematopoietic precursors. ??No morphologic features ?of acute leukemia, lymphoma or a plasma cell proliferative ?disorder are identified. ?Test Performed by: ?[facility] ?[address] [place], [place] [address] [place] [address] LABORATORY Blood specimen (specimen) Venous Draw / Unknown 01/08/2017 9:31 AM EDT 01/09/2017 3:59 PM EDT Narrative Resulting Agency Comment Spec In Lab Radha Cooper APRN LAB SEND OUT ORDERAB LES Performing Organization Address [facility]/ZIP Co de Phone Number [facility] [place] [address] * Myeloid Seq Panel (01/08/2017 9:31 AM EDT) Bone marrow specimen (specimen) 01/08/2017 9:31 AM EDT 01/10/2017 6:43 AM EDT Narrative Resulting Agency Comment Spec In Lab Radha Cooper MOLD SHAKER CHEMISTRY ORDERABLES Performing Organization Address [facility] [place] [address] * Immunophenotyping Flow Cytometry (01/08/2017 9:31 AM EDT) Immunophenotyping Flow See Comment [facility] Comment: When completed by the Pathologist, the Flow Cytometry Report ([id number]) will display under the Pathology Results section within [facility]. Bone marrow specimen (specimen) 01/08/2017 9:31 AM EDT 01/08/2017 10:11 AM EDT Narrative Resulting Agency Comment Spec In Lab Radha Cooper MOLD SHAKER HEMATOLOGY ORDERABLE S Performing Organization Address [facility] Co de Phone Number [facility] [place] [address] * Iron Stain, Bone Marrow (01/08/2017 9:31 AM EDT) Bone Marrow Iron Stain See Comment [facility] Comment:See Bone Marrow Repo rt [id number] under Hematopathology Reports. Bone marrow specimen (specimen) 01/08/2017 9:31 AM EDT 01/08/2017 10:11 AM EDT Narrative Resulting Agency Comment Spec In Lab Radha Cooper MOLD SHAKER HEMATOLOGY ORDERABLE S Performing Organization Address City/[facility]/ZIP Co de Phone Number [facility] [place] [address] * Scan, Peripheral Blood (01/08/2017 8:56 AM EDT) Plat estimate Normal [facility] RBC Morphology Normal [facility] Blood specimen (specimen) 01/08/2017 8:56 AM EDT 01/08/2017 10:11 AM EDT Narrative Resulting Agency Comment Spec In Lab Radha Cooper MOLD SHAKER HEMATOLOGY ORDERABLE S [facility] [place] [address] * (ABNORMAL) Differential, Automated (01/08/2017 8:56 AM EDT) Pathologist [facility] Neutrophil % 10.4 % [facility] Neutrophil Absolute 0.21(Crit ical) 1.70 - 6.10 x10(3)/mc L [facility] Comment: This result has been called to ELIZABETH SALGADO by Mckay Rodriguez on 01 08 2017 at 1049, and has been read back. Lymph % 65.2 % [facility] Lymphocytes Abs 1.3 0.9 - 3.2 x10(3)/mc L [facility] Monocyte % 18.4 % [facility] Monocyte Abs 0.4 0.3 - 0.9 x10(3)/mc L [facility] Eos % 0.5 % [facility] Eosinophils Abs 0.0 0.0 - 0.4 x10(3)/mc L [facility] Basophil % 0.5 % [facility] Baso Absolute 0.0 0.0 - 0.1 x10(3)/mc L [facility] Immature Gran % 5.00 % [facility] Comment: Immature granulocytes(IG's)percentage and absolute count will include metamyelocytes, myelocytes, and promyelocytes. Blood smears from CBCs yielding IG's will be scanned manually for concordance. If this scan disagrees with the automated IG or if promyelocytes are noted, a manual differential will be performed. Immature Gran Absolute 0.10(H) 0.00 - 0.04 x10(3)/ L [facility] Blood specimen (specimen) 01/08/2017 8:56 AM EDT 01/08/2017 10:11 AM EDT Narrative Resulting Agency Comment Spec In Lab Radha Cooper MOLD SHAKER HEMATOLOGY ORDERABLE S [facility] [place] [address] * (ABNORMAL) Hemogram (01/08/2017 8:56 AM EDT) White Blood Cell 2.0(L) 4.0 - 9.5 x10(3)/ L [facility] Red Blood Cell 4.55 4.00 - 5.21 x10(6)/ L [facility] Hemoglobin 13.3 11.7 - 15.5 gm/dL [facility] Hematocrit 40.9 35.7 - 45.8 % [facility] Mean Cell Volume 89.9 82.6 - 94.4 [facility] Mean Cell Hemoglobin 29.2 27.1 - 32.[address] [facility] Mean Cell Hemoglobin Concentration 32.5 31.7 - 35.0 gm/dL [facility] Platelet 183 145 - 357 x10(3)/ L [facility] RDW Standard Deviation 40.4 37.0 - 46.0 [facility] RDW coefficient of variation 12.2 11.5 - 14.1 % [facility] Mean Platelet Volume 10.2 7.6 - 12.9 [facility] NRBC% auto 0.0 % [facility] NRBC Absolute 0.000 0.000 - 0.000 x10(3)/ L [facility] Blood specimen (specimen) 01/08/2017 8:56 AM EDT 01/08/2017 10:11 AM EDT Narrative Resulting Agency Comment Spec In Lab Radha Cooper MOLD SHAKER HEMATOLOGY ORDERABLE S [facility] [place] [address] documented in this encounter Visit Diagnoses Not [...] 1206, GRACY RHODES I.: cabinet override lidocaine (XYLOCAINE) 10 [...] (Due) documented in this encounter Care Teams Extrusion Die Coordinator Relationship Specialty Start Date End Date Julia Chatterjee MD [address] [place] [address] PCP - General 01/31/10 documented as of this encounter
[2023-10-22 09:04] LABS: Abs Immature Grans 0.08 10^3/uL (0.0-0.06); Absolute Eosinophil Count 0.01 10^3/uL (0.0-0.7); Absolute Lymphocyte Count 1.09 10^3/uL (1.2-3.4); Absolute Monocyte Count 0.44 10^3/uL (0.1-0.8); Eosinophils % 0.5 %; HCT 41.8 % (36.0-46.0); HGB 13.6 g/dL (11.2-15.7); Immature Grans % 4.3 %; Lymphocytes % 59.2 %; MCH 28.8 pg (27.0-33.0); MCHC 32.5 % (32.0-36.0); MCV 88 fL (80-95); MPV 9.5 fL (8.0-11.0); Monocytes % 23.9 %; Neutrophils % 12.1 %; Platelet Count 194 10^3/uL (130-400); RBC 4.73 10^6/uL (3.93-5.22); RDW 12.7 % (11.7-14.6); RDW-SD 41.5 fL
[2023-10-22 10:03] LABS: ALT 23 U/L (14-59); AST 22 U/L (15-37); Albumin 3.7 g/dL (3.4-5.0); Alkaline Phosphatase 97 U/L (46-116); Anion Gap 8.5 mmol/L (3-11); BUN 12 mg/dL (7-18); Bilirubin, Total 0.58 mg/dL (0.2-1.0); CO2 28.5 mmol/L (21.0-32.0); CREATININE 0.8 mg/dL (0.55-1.02); Calcium 9.5 mg/dL (8.5-10.1); Chloride 101 mmol/L (98-107); Estimated GFR 78.72 (mL/min/1.73m2); Glucose 103 mg/dL (74-106); Magnesium 2.2 mg/dL (1.8-2.4); Potassium 4.2 mmol/L (3.5-5.1); Sodium 138 mmol/L (136-145); Total Protein 8.4 g/dL (6.4-8.2); Vitamin D 25 Total 42.2 ng/mL (30-100)
[2023-10-22 10:05] LABS: WBC 1.84 10^3/uL (4.4-10.8)
[2023-10-22 10:06] LABS: Absolute Neutrophil Count 0.22 10^3/uL (1.2-6.7); Diff Comment Agrees w/ Instrument
[2023-10-22 10:07] LABS: RBC Morphology Normal
[2023-10-22 15:55] LABS: Hemoglobin A1C 5.6 % (<5.7)
== END 2023-10-22 02:45 | disposition home or self-care (01) ==
LOC: LBO 02:45
PROVIDERS: PCP Family Medicine; Visit Provider Family Medicine
DX: Z00.00 Encounter for general adult medical examination without abnormal findings (principal); D72.819 Decreased white blood cell count, unspecified
CPT/HCPCS: 36415; 80053; 82306; 83036; 83735; 85025

== ENCOUNTER 2023-10-24 02:31 | Outpatient (CLI) | payer MEDICARE, BC, SELFPAY ==
--- OUTSIDE RECORDS SUMMARY | 2023-10-24 02:33 | XMS_ITS | Encounter Summary ---
Author Organization [facility] Address [facility] [place] [address] Care Team Providers Care Solar Installation Supervisor Name Role Phone Julia Chatterjee MD Primary Care Provider [phone] Encounter Details Date Type Department Care Team [...] PM EST Office Visit Hematology/Oncology at [address] [phone] Lee Ann Jay MD [facility] [address] [place] [address] Leti Anderson, UPPER MARKER [facility] [place] [address] documented as of this encounter Visit Diagnoses Not on filedocumented in this encounter Care Teams Solar Installation Supervisor Relationship Specialty Start Date End Date Julia Chatterjee MD [address] [place] [address] [id number] PCP - General 01/31/10 documented as of this encounter
--- OUTSIDE RECORDS SUMMARY | 2023-10-24 02:33 | XMS_ITS | Encounter Summary ---
Author Organization [facility] Address [facility] [place] [address] Care Team Providers Care Fondant Puff Maker Name Role Phone Julia Chatterjee MD Primary Care Provider [phone] Encounter Details Date Type Department Care Team (Latest Contact Info) Description 02/02/2020 10:30 AM EST TH Visit (TeleHealth) [place] [address] Yola Oliveros MD [facility] [place] [address] Other ulcerative colitis with complication Social History [...] help much - Followed with a local audio visual tech and used dietary supplements to maintain remission - Did well until August 2019 when she developed abdominal pain, fevers, loose stool. [facility] to [facility] andhad CT showing inflamed colon. Flex [...] qhs after colonoscopy in October 2019 - [place] worse on Canasa - fecal calpro 109 [...] past surgical history that includes Colonoscopy, Biopsy (15460) (07/05/2011); Colonoscopy, Remv Lesn, Snare (27101) (07/05/2011); Bone Marrow Aspiration W/Bx Through Same Incision/Site (G0364) (Right, 01/08/2017); Bone Marrow Bx, Needle/Trocar (12294) (Right, 01/08/2017);CT Guided Aspiration Liver (09/02/2019); Sigmoidoscopy, Diagnostic (66345) (N/A, 09/02/2019); IR Drain Check/Change/Remove (09/28/2019); and Colonoscopy, Biopsy (99871) (N/A, 10/22/2019). Family History: family history is [...] calprotectin drawn within the last week at [facility] was less than 15.6. Assessment/Plan: Ms. [...] the issues outlined above. Marija Oliveros MD Utilization Specialisttechnical manager Co-Director, [facility] Section of Gastroenterology [place] [address] documented in this encounter Plan of Treatment Upcoming Encounters Date Type Department Care Team (Late st Contact Info) Description 04/15/2024 1:00 PM EST Office Visit Hematology/Oncology at [address] [phone] Lee Ann Jay MD [facility] [place] [address] Leti Anderson APRN [facility] [place] [address] documented as of this encounter Visit Diagnoses Diagnosis Other ulcerative colitis with complication documented in this encounter Care Teams Fondant Puff Maker Relationship Specialty Start Date End Date Julia Chatterjee MD [facility] [address] [place] [address] PCP - General 01/31/10 documented as of this encounter
--- OUTSIDE RECORDS SUMMARY | 2023-10-24 02:33 | XMS_ITS | Encounter Summary ---
Author Organization [facility] [place] [address] Care Team Providers Care Silver Steward Name Role Phone Julia Chatterjee MD Primary Care Provider [phone] Reason for Visit * Reason Onset Date Comments Other 12/03/2022 Letting us know about shingles Encounter Details Date Type Department Care Team (Late st Contact Info) Description 12/03/2022 Telephone Hematology/Oncology at [address] [phone] Michelle Layne, RN Other (Letting [...] 12/03/2022 1:09 PM EDT Leti Keenan Sohan [id number] Leti called to let us know that [...] PM EST Office Visit Hematology/Oncology at [address] [phone] Lee Ann Jay MD [facility] [address] [place] [address] Leti Anderson APRN [facility] [address] [place] [address] documented as of this encounter Visit Diagnoses Not on filedocumented in this encounter Care Teams Silver Steward Relationship Specialty Start Date End Date Julia Chatterjee MD [facility] [address] [place] [address] PCP - General 01/31/10 documented as of this encounter
--- OUTSIDE RECORDS SUMMARY | 2023-10-24 02:33 | XMS_ITS | Encounter Summary ---
Author Organization [facility] Address [facility] [place] [address] Care Team Providers Care Sample Coordinator Name Role Phone Julia Chatterjee MD Primary Care Provider [phone] Encounter Details Date Type Department Care Team (Late st Contact Info) Description 04/17/2023 10:30 AM EST Office Visit Hematology/Oncology at [address] [phone] Lee Ann Jay MD [facility] DR [place] [address] Leti Anderson, BUNCHER HAND [facility] DR [place] [address] Large granular lymphocytic leukemia Social History Tobacco [...] this encounter Progress Notes * Leti Anderson, BUNCHER HAND - 04/17/2023 10:30 AM EST Images from [...] help much - Followed with a local waste water operator and used dietary supplements to maintain remission - Did well until August 2019 when she developed abdominal pain, fevers, loose stool. Went to [facility] andd CT showing inflamed colon. [...] qhs after colonoscopy in October 2019 - [place] worse on [place] - fecal calpro 109 [...] flow ) are being pursued at the [place] labs. Should cytopenias persist , it may [...] better now with the help of her waste water operator. Her symptoms are minimal on the naturopathic [...] LIVER 09/02/2019 CT Guided Aspiration Liver 09/02/2019 [facility] RAD CAT SCAN IR DRAIN CHECK/CHANGE/REMOVE 09/28/2019 IR Drain Check/Change/Remove 09/28/2019 Cliff Langston MD [facility] INTERVENTIONL RAD PRO BONE MARROW ASPIRATION W/BX THROUGH SAME INCISION/SITE Right 01/08/2017 ([facility] MSURG) BONE MARROW ASP PERFORMED W/BX THRU BX INCISION (WRVU 0.16) performed by Lee Ann Jay MD at [facility] OSC PRO COLONOSCOPY, BIOPSY 07/05/2011 COLONOSCOPY FLEXIBLE, WITH BX performed by AYAZ NELSON at [facility] ENDOSCOPY PRO COLONOSCOPY, BIOPSY N/A 10/22/2019 COLONOSCOPY FLEXIBLE, WITH BX (WRVU 3.66) performed by Yola Oliveros MD at [facility] ENDOSCOPY PRO COLONOSCOPY, BIOPSY N/A 04/12/2022 COLONOSCOPY FLEXIBLE, WITH BX (WRVU 3.66) performed by Yola Oliveros MD at [facility] ENDOSCOPY PRO COLONOSCOPY, REMV LESN, SNARE 07/05/2011 COLONOSCOPY, POLYPECTOMY, REMOVAL LESION BY SNARE performed by AYAZ NELSON at [facility] ENDOSCOPY PRO COLONOSCOPY, REMV LESN, SNARE N/A 04/12/2022 COLONOSCOPY, POLYPECTOMY, REMOVAL LESION BY SNARE (WRVU 4.67) performed by Yola Oliveros MD at [facility] ENDOSCOPY PRO DIAGNOSTIC BONE MARROW BIOPSIES Right 01/08/2017 ([facility] MSURG) BONE MARROW,BIOPSY (WRVU 1.37) performed by Lee Ann Jay MD at [facility] OSC PRO SIGMOIDOSCOPY, DIAGNOSTIC N/A 09/02/2019 FLEXIBLE SIGMOIDOSCOPY performed by Ayaz Nelson MD at [facility] ENDOSCOPY Medications; Current Outpatient Medications Medication [...] low white counts. Social History: Lives in [facility]. . 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 No hyperemia, exudative [...] flow ) are being pursued at the [place] labs. Should cytopenias persist , it may [...] No new images reviewed today US at [facility] 11/2016. Liver 14.5 cm. Spleen 8cm. [...] lymphocytes. She has been working with a waste water operator who started her on selenium and zinc and about a dozen other supplements. Counts are a bit higher so we will see. Cyber Incident Handler has been helping her with bowel issues. [...] [address] Han Castillo at [facility], an LGL specialist, he did a [...] counseling given as appropriate. Leti Anderson, MSN, BUNCHER HAND Nurse Practitioner Section of Hematology [facility] Cc: Julia Chatterjee MD documented in this encounter Plan of Treatment Upcoming Encounters Date Type Department Care Team (Late st Contact Info) Description 04/15/2024 1:00 PM EST Office Visit Hematology/Oncology at [address] [phone] Lee Ann Jay MD [facility] DR [place]ATOLOG[place] [address] Leti Anderson APRN [facility] [place] [address] Scheduled Orders Name Type Priority Associated Diagnoses [...] remission documented in this encounter Care Teams Sample Coordinator Relationship Specialty Start Date End Date Julia Chatterjee MD [address] [place] [address] PCP - General 01/31/10 documented as of this encounter
--- OUTSIDE RECORDS SUMMARY | 2023-10-24 02:33 | XMS_ITS | Encounter Summary ---
Author [facility] [place] [address] Care Team Providers Care Yeast Fermentation Attendant Name Role Phone Julia Chatterjee MD Primary Care Provider [phone] Reason for Visit * Reason Onset Date Comments Abnormal Labs 04/05/2022 Critical ANC- 0. 23 Encounter Details Date Type Department Care Team (Late Contact Info) Description 04/05/2022 Telephone Hematology/Oncology at [address] [phone] Michelle Layne RN Abnormal Labs [...] EST Critical ANC of 0.23 called by [facility] lab. CBC entered into eDH. Has a FUV 04/11. Sent to providers forreview. documented in this encounter Plan of Treatment Upcoming Encounters Date Type Department Care Team (Late Contact Info) Description 04/15/2024 1:00 PM EST Office Visit Hematology/Oncology at [address] [phone] Lee Ann Jay MD [facility] HEMATOLOGY [place] [address] Leti Anderson APRN [facility] HEMATOLOGY [place] [address] documented as of this encounter Procedures Procedure Name Priority Date/Time Associated Diagnosis Comments CBC (WITH DIFF) Routine 04/05/2022 8:30 AM EST documented in this encounter Results * (ABNORMAL) CBC (with Diff) (04/05/2022 8:30 AM EST) White Blood Cell 2.08 [facility] Hemoglobin [address] [facility] Hematocrit [address] [facility] Platelet 181 [facility] ANC 0.23(A) 1.2 - 6.7 [facility] Blood 04/05/2022 8:30 AM EST Lee Ann Jay MD HEMATOLOGY ORDER [facility] [address] [facility] [place], [place] [address] [phone] documented in this encounter Visit Diagnoses Not on filedocumented in this encounter Care Teams Yeast Fermentation Attendant Relationship Specialty Start Date End Date Julia Chatterjee MD [address] [place] [address] PCP - General 01/31/10 documented as of this encounter
--- OUTSIDE RECORDS SUMMARY | 2023-10-24 02:33 | XMS_ITS | Encounter Summary ---
Author Organization [facility] Address [facility] [place] [address] Care Team Providers Care Welder/Installer Name Role Phone Julia Chatterjee MD Primary Care Provider [phone] Encounter Details Date Type Department Care Team (Latest Contact Info) Description 04/12/2022 7:08 AM EST - 04/12/2022 9:41 AM EST Hospital En[place] [address] Yola Oliveros MD [facility] [place] [place] [address] Discharge Disposition: Home Social History Tobacco Use [...] occurs, please contact your Doctor. Please call [phone] before 8pm Mon-Fri with problems, questions or concerns. If you call after 8pm or on weekends, call the Hospital at [phone] and ask to speak to the Mgmt Specialist residential concierge and the steam hoist operator will contact that person for you. [...] any problems. Where can you learn more? [facility] View your After Visit Summary and more online at [email or web address] If you would like to provide feedback about your hospital experience, please call the Office of Patient and Family Relations at . If you have received this After Visit Summary in error, please immediately return it in person to the department, or notify the [facility] Privacy Office by calling toll free at between the hours of 8AM and 5PM to arrange for our retrieval of the documents at no cost to you. Content Version: 12.2 ?? [phone] [facility]. Care instructions adapted under license by [facility]. If you have questions about a medical condition or this instruction, always ask your healthcare professional. [facility] disclaims any warranty or liability for [...] concerns or questions. Sincerely, Marija Oliveros MD Moth Exterminatorinspector returned materials Co-Director, [facility] Section of Gastroenterology [place] [address] CC: Julia Chatterjee MD [facility] [address] [facility] [address] [place] [address] documented in this encounter H&P Notes * [...] PM EST Office Visit Hematology/Oncology at [address] [phone] Lee Ann Jay MD [facility] [place] [address] Leti Anderson APRN [facility] [place] [address] documented as of this encounter Procedures Procedure Name Priority Date/Time Associated Diagnosis Comments SURGICAL PATHOLOGY REPORT Routine 04/12/2022 8:50 AM EST SPECIMEN TO PATHOLOGY Routine 04/12/2022 8:50 AM EST SPECIMEN TO PATHOLOGY Routine 04/12/2022 8:50 AM EST SPECIMEN TO PATHOLOGY Routine 04/12/2022 8:50 AM EST SPECIMEN TO PATHOLOGY Routine 04/12/2022 8:50 AM EST Colonoscopy, Remv Lesn, Snare ([id number]) 04/12/2022 7:55 AM EST screening Colonoscopy, Biopsy ([id number]) 04/12/2022 7:55 AM EST screening COLONOSCOPY Routine 04/12/2022 7:40 AM EST documented in this encounter Results * Surgical Pathology Report (04/12/2022 8:50 AM EST) Final Diagnosis [id number] ? Location: 4T; EA07; A The signing [...] MD Verified: ??04/20/2022 22:35 ??Pathologist Performed at: ??-[facility] [place]ology, [place] [address] Social Research Assistant: Dyllan Vazquez MD, FCAP, ??CLIA Certificate: [id number] SPECIMEN(S) SUBMITTED A - Cecal polyp, re-excision [...] labeled D1. ??sns 04/20/2022 10:35 PM EST [facility] GI Biopsy 04/12/2022 8:50 AM EST 04/12/2022 8:50 AM EST GI Biopsy 04/12/2022 8:50 AM EST 04/12/2022 8:50 AM EST GI Biopsy 04/12/2022 8:50 AM EST 04/12/2022 8:50 AM EST GI Biopsy 04/12/2022 8:50 AM EST 04/12/2022 8:50 AM EST L Inder Oliveros MD PATHOLOGY/[facility]OLOGY [facility] [place] [address] [facility] [place] [address] * Specimen to Pathology (04/12/2022 8:50 AM EST) AP Specimen 04/12/2022 8:50 AM EST 04/12/2022 8:50 AM EST Narrative [facility] - 04/12/2022 8:50 AM EST Specimen requisition ordered. ??Separate Pathology report to follow L Inder Oliveros MD PATHOLOGY/CYTOLOGY O RDKEITH Performing Organization Address [facility] [place] [address] * Specimen to Pathology (04/12/2022 8:50 AM EST) AP Specimen 04/12/2022 8:50 AM EST 04/12/2022 8:50 AM EST Narrative [facility] - 04/12/2022 8:50 AM EST Specimen requisition ordered. ??Separate Pathology report to follow L Inder Oliveros MD PATHOLOGY/CYTOLOGY O RDKEITH Performing Organization Address [facility] [place] [address] * Specimen to Pathology (04/12/2022 8:50 AM EST) AP Specimen 04/12/2022 8:50 AM EST 04/12/2022 8:50 AM EST Narrative [facility] - 04/12/2022 8:50 AM EST Specimen requisition ordered. ??Separate Pathology report to follow L Inder Oliveros MD PATHOLOGY/CYTOLOGY O OMI Performing Organization Address [facility] [place] [place] [address] * Specimen to Pathology (04/12/2022 8:50 AM EST) AP Specimen 04/12/2022 8:50 AM EST 04/12/2022 8:50 AM EST Narrative [facility] - 04/12/2022 8:50 AM EST Specimen requisition ordered. ??Separate Pathology report to follow L Inder Oliveros MD PATHOLOGY/CYTOLOGY O RDKEITH Performing Organization Address [facility] [place] [place] [address] * COLONOSCOPY (04/12/2022 7:40 AM EST) COLONOSCOPY [facility] ___ Procedure Date: 04/12/2022 7:40 AM ? Patient Name: Leti Parry ? Date of : 1950 ? Age: 71 ? Order #: [id number] ? Instrument Name: [id number] ? ___ Procedure: ? Colonoscopy Indications: ? Disease activity assessment of ? left-sided chronic ulcerative ? colitis Patient Profile: ? This is a 71 year old female. This ? patient has left-sided ulcerative ? colitis, is taking no medication ? therapy for this disease and is ? asymptomatic. Providers: ? L. Inder Oliveros MD, Sherin Lawrence, ? Roman Spence, Boom Stick Worker Referring MD: ?Julia Chatterjee MD Medicines: ? [...] preparation was evaluated ? using the BBPS ([place] Bowel ? Preparation Scale) with scores of: [...] RN) documented in this encounter Care Teams Welder/Installer Relationship Specialty Start Date End Date Julia Chatterjee MD [facility] [address] [place] [address] PCP - General 01/31/10 documented as of this encounter
--- OUTSIDE RECORDS SUMMARY | 2023-10-24 02:33 | XMS_ITS | Encounter Summary ---
Author Organization [facility] Address [facility] [place] [address] Care Team Providers Care Assistant Corporation Counsel Name Role Phone Julia Chatterjee MD Primary Care Provider [phone] Reason for Visit * Reason Onset Date Comments Labs Only 12/10/2019 Encounter Details Date Type Department Care Team (Late Contact Info) Description 12/10/2019 Telephone Hematology/Oncology at [address] [phone] Mera Cintron RN Labs Only [...] PM EST Office Visit Hematology/Oncology at [address] [phone] Lee Ann Jay MD [facility] DR HEMATOLOGY [place] [address] Leti Anderson APRN [facility] DR [place] [address] documented as of this encounter Procedures Procedure [...] filedocumented in this encounter Care Teams Assistant Corporation Counsel Relationship Specialty Start Date End Date Julia Chatterjee MD [facility] [address] [place] [address] PCP - General 01/31/10 documented as of this encounter
--- OUTSIDE RECORDS SUMMARY | 2023-10-24 02:33 | XMS_ITS | Encounter Summary ---
Author Organization [facility] [place] [address] Care Team Providers Care Stock Parts Fabricator Name Role Phone Julia Chatterjee MD Primary Care Provider [phone] Encounter Details Date Type Department Care Team (Late Contact Info) Description 06/04/2022 Telephone [place] [phone] J[place]min [place] Social History Tobacco Use Types [...] PM EST Office Visit Hematology/Oncology at [address] [phone] Lee Ann Jay MD [facility] DR [place] [address] Leti Anderson APRN [facility] [place] [address] documented as of this encounter Visit Diagnoses Not on filedocumented in this encounter Care Teams Stock Parts Fabricator Relationship Specialty Start Date End Date Julia Chatterjee MD [facility] [address] [address] PCP - General 01/31/10 documented as of this encounter
--- OUTSIDE RECORDS SUMMARY | 2023-10-24 02:33 | XMS_ITS | Encounter Summary ---
Author Organization [facility] [place] [address] Care Team Providers Care Oncology Technician Name Role Phone Julia Chatterjee MD Primary Care Provider [phone] Reason for Visit * Reason Onset Date Comments Labs Only 04/21/2020 critical ANC Encounter Details Date Type Department Care Team (Late st Contact Info) Description 04/21/2020 Telephone Hematology/Oncology at [address] [phone] Mera Cintron RN Labs Only [...] PM EST Office Visit Hematology/Oncology at [address] [phone] Lee Ann Jay MD [facility] DR HEMATOLOGY [place] [address] An Anderson APRN [facility] HEMATOLOGY [place] [address] documented as of this encounter Procedures Procedure Name Priority Date/Time Associated Diagnosis Comments CBC (WITH DIFF) Routine 04/21/2020 documented in this encounter Results * CBC (with Diff) (04/21/2020) White Blood Cell 2.21 Hemoglobin 14.0 Hematocrit 43.5 Platelet 171 ANC 0.15 Blood 04/21/2020 Historical Provider HEMATOLOGY ORDERA BLES documented in this encounter Visit Diagnoses Not on filedocumented in this encounter Care Teams Oncology Technician Relationship Specialty Start Date End Date Julia Chatterjee MD [facility] [address] [place] [address] PCP - General 01/31/10 documented as of this encounter
--- OUTSIDE RECORDS SUMMARY | 2023-10-24 02:33 | XMS_ITS | Encounter Summary ---
Author Organization [facility] [place] [address] Care Team Providers Care Ground Service Equipment Mechanic Name Role Phone Julia Chatterjee MD Primary Care Provider [phone] Encounter Details Date Type Department Care Team (Late Contact Info) Description 01/11/2020 Orders [place] [address] Yola Oliveros MD [facility] [place] [address] Other ulcerative colitis with complication; Abscess, hepatic [...] PM EST Office Visit Hematology/Oncology at [address] [phone] Lee Ann Jay MD [facility] DR [place] [address] Leti Anderson, MECHANICAL ASSEMBLY TECHNICIAN [facility] [place] [address] documented as of this encounter Visit Diagnoses Diagnosis Other ulcerative colitis with complication Abscess, hepatic Abscess of liver documented in this encounter Care Teams Ground Service Equipment Mechanic Relationship Specialty Start Date End Date Julia Chatterjee MD [facility] [address] [place] [address] PCP - General 01/31/10 documented as of this encounter
--- OUTSIDE RECORDS SUMMARY | 2023-10-24 02:33 | XMS_ITS | Encounter Summary ---
Author Organization [facility] [place] [address] Care Team Providers Care Superintendent Electric Power Name Role Phone Julia Chatterjee MD Primary Care Provider [phone] Encounter Details Date Type Department Care Team (Late Contact Info) Description 08/01/2021 Orders Only [place]ematology [place] [address] Lee Ann Jay MD [facility] [place] [address] Social History Tobacco Use Types Packs/Day Years [...] PM EST Office Visit Hematology/Oncology at [address] [phone] Lee Ann Jay MD [facility] [place] [address] Leti Anderson, UPKEEP MECHANIC [facility] [place] [address] documented as of this encounter Visit Diagnoses Not on filedocumented in this encounter Care Teams Superintendent Electric Power Relationship Specialty Start Date End Date Julia Chatterjee MD [address] [facility] [address] [place] [address] PCP - General 01/31/10 documented as of this encounter
--- OUTSIDE RECORDS SUMMARY | 2023-10-24 02:33 | XMS_ITS | Encounter Summary ---
Author Organization Formerly [facility] Address [facility] [place] [address] Care Team Providers Care Reduction Plant Supervisor Name Role Phone Julia Chatterjee MD Primary Care Provider [phone] Encounter Details Date Type Department Care Team (Late st Contact Info) Description 10/22/2019 11:15 AM EDT - 10/22/2019 12:15 PM EDT [place] [address] Yola Oliveros MD [facility] [place] [address] COLONOSCOPY FLEXIBLE, WITH BX (WRVU 3.56) Social [...] sent through Care Everywhere. * Colonoscopy: Post-op (Georgian) documented in this encounter Medications at Time [...] PM EST Office Visit Hematology/Oncology at [address] [phone] Lee Ann Jay MD [facility] DR [place] [address] Leti Anderson APRN [facility] DR [place] [address] documented as of this encounter Procedures Procedure Name Priority Date/Time Associated Diagnosis Comments SPECIMEN TO PATHOLOGY Routine 10/22/2019 11:52 AM EDT SPECIMEN TO PATHOLOGY Routine 10/22/2019 11:52 AM EDT SPECIMEN TO PATHOLOGY Routine 10/22/2019 11:52 AM EDT SPECIMEN TO PATHOLOGY Routine 10/22/2019 11:52 AM EDT SPECIMEN TO PATHOLOGY Routine 10/22/2019 11:52 AM EDT SURGICAL PATHOLOGY REPORT Routine 10/22/2019 11:15 AM EDT Colonoscopy, Biopsy ([id number]) 10/22/2019 11:01 AM EDT Ulcerative rectosigmoiditis with abscess Colonoscopy, IVCS, in 1-2 weeks for L sided colitis c/b hepatic abscess. Evaluate response to antibiotics and extent of colonic involvement COLONOSCOPY Routine 10/22/2019 9:49 AM EDT documented in this encounter Results * Specimen to Pathology (10/22/2019 11:52 AM EDT) AP Specimen 10/22/2019 11:5 2 AM EDT 10/22/2019 11:52 AM EDT Narrative [facility] - 10/22/2019 11:52 AM EDT Specimen requisition ordered. ??Separate Pathology report to follow L Inder Oliveros MD PATHOLOGY/CYTOLOGY O RDERABLES [facility] [place] [address] * Specimen to Pathology (10/22/2019 11:52 AM EDT) AP Specimen 10/22/2019 11:5 2 AM EDT 10/22/2019 11:52 AM EDT Narrative [facility] - 10/22/2019 11:52 AM EDT Specimen requisition ordered. ??Separate Pathology report to follow L Inder Oliveros MD PATHOLOGY/CYTOLOGY O OMI Performing Organization Address [facility] [place] [address] * Specimen to Pathology (10/22/2019 11:52 AM EDT) AP Specimen 10/22/2019 11:5 2 AM EDT 10/22/2019 11:52 AM EDT Narrative [facility] - 10/22/2019 11:52 AM EDT Specimen requisition ordered. ??Separate Pathology report to follow L Inder Oliveros MD PATHOLOGY/CYTOLOGY O OMI Performing Organization Address [facility] Co de Phone Number [facility] [place] [address] * Specimen to Pathology (10/22/2019 11:52 AM EDT) AP Specimen 10/22/2019 11:5 2 AM EDT 10/22/2019 11:52 AM EDT Narrative [facility] - 10/22/2019 11:52 AM EDT Specimen requisition ordered. ??Separate Pathology report to follow L Inder Oliveros MD PATHOLOGY/CYTOLOGY O OMI Performing Organization Address [facility] Co de Phone Number [facility] [place] [address] * Specimen to Pathology (10/22/2019 11:52 AM EDT) AP Specimen 10/22/2019 11:5 2 AM EDT 10/22/2019 11:52 AM EDT Narrative [facility] - 10/22/2019 11:52 AM EDT Specimen requisition ordered. ??Separate Pathology report to follow L Inder Oliveros MD PATHOLOGY/CYTOLOGY O OMI [facility] [place] [address] * Surgical Pathology Report (10/22/2019 11:15 AM EDT) Final Diagnosis [id number] ? Location: 4T; EA10; A The signing [...] PhD, Christal Verified: ??10/30/2019 ?Pathologist Performed at: ??-[facility] Dept. of Pathology, [place], [place] ADDITIONAL STUDIES E - ??multiple levels [...] labeled E1. ??ajw 10/30/2019 1:35 PM EDT [facility] GI Biopsy 10/22/2019 11:1 5 [...] L Inder Oliveros MD PATHOLOGY/CYTOLOGY O RDERABLES [facility] [place] [address] * COLONOSCOPY (10/22/2019 9:49 AM EDT) COLONOSCOPY [facility] Endoscopy Procedure Date: 10/22/2019 9:49 AM ? Patient Name: Leti Parry ? Date of : 1950 ? Age: 68 ? Order #: [id number] ? Instrument Name: [id number] ? Procedure: ? Colonoscopy Indications: ? Follow-up of left-sided chronic ? ulcerative colitis Providers: ? Marija Oliveros MD, Hesham Larson ? Skyla Dobson, DAYANA, ? Power Vega Referring : ?Jluia Chatterjee MD Medicines: ? Fentanyl 250 micrograms [...] preparation was evaluated using ? the BBPS ([place] Bowel Preparation ? Scale) with scores of: [...] Procedure Code(s): ?? --- Professional --- ? 49562, Colonoscopy, flexible; with ? biopsy, single or multiple CPT copyright 2019 [employer]. All rights reserved. The codes documented in this report are preliminary and upon hospital clinic assistant review may be revised to meet current [...] Lutz RN)1111 (Given - Provider: Skyla A [place], RN)1116 (Given - Provider: Skyla Lutz RN) documented in this encounter Care Teams Reduction Plant Supervisor Relationship Specialty Start Date End Date Julia Chatterjee MD [facility] [address] [facility] [address] [place] [address] PCP - General 01/31/10 documented as of this encounter
--- OUTSIDE RECORDS SUMMARY | 2023-10-24 02:33 | XMS_ITS | Encounter Summary ---
Author Organization [facility] Address [facility] [place] [address] Care Team Providers Care Director Of Online Education Name Role Phone Julia Chatterjee MD Primary Care Provider [phone] Reason for Visit * Reason Onset Date Comments Other 12/10/2019 Encounter Details Date Type Department Care Team (Late st Contact Info) Description 12/10/2019 Telephone Hematology/Oncology at [address] [phone] Mera Cintron RN Other Social [...] ANC was 0.2. She is going to [place] for a week with children and grandchildren staying at [facility] and then to [place] for a week at son's home. She [...] PM EST Office Visit Hematology/Oncology at [address] [phone] Lee Ann Jay MD [facility] [address] [place] [address] Leti Anderson APRN [facility] [place] [address] documented as of this encounter Visit Diagnoses Not on filedocumented in this encounter Care Teams Director Of Online Education Relationship Specialty Start Date End Date Julia Chatterjee MD [facility] [address] [place] [address] PCP - General 01/31/10 documented as of this encounter
--- OUTSIDE RECORDS SUMMARY | 2023-10-24 02:33 | XMS_ITS | Encounter Summary ---
[place] [address] Care Team Providers Care Radiologic Technology Teacher Name Role Phone Julia Chatterjee MD Primary Care Provider [phone] Reason for Visit * Reason Comments Reminder Appointment Encounter Details Date Type Department Care Team (Late Contact Info) Description 11/02/2019 Telephone [place] [phone] Adia Angel CMA GASTROENTEROLOGY DEPT Reminder Appointment [...] PM EST Office Visit Hematology/Oncology at [address] [phone] Lee Ann Jay MD [facility] DR [place] [address] Leti Anderson APRN [facility] [place] [address] documented as of this encounter Visit Diagnoses Not on filedocumented in this encounter Care Teams Radiologic Technology Teacher Relationship Specialty Start Date End Date Julia Chatterjee MD [facility] [address] [place] [address] PCP - General 01/31/10 documented as of this encounter
--- OUTSIDE RECORDS SUMMARY | 2023-10-24 02:33 | XMS_ITS | Encounter Summary ---
Author Organization [facility] Address [facility] [place] [address] Care Team Providers Care Diamond Setter Name Role Phone Julia Chatterjee MD Primary Care Provider [phone] Encounter Details Date Type Department Care Team (Late st Contact Info) Description 02/27/2022 Telephone [place] [phone] Jenise Bridgse Social History Tobacco Use Types Packs/Day Years [...] - 02/27/2022 11:31 AM EST Leti Parry [id number] Diagnosis/Indication: screening Please review patient chart to [...] neupogen prior to procedure-pt to contact Dr Ray 18. You must have a responsible republican who will drive you to your procedure, stay on campus for the entire duration of your procedure, and drive you home from your procedure. Who will likely be your service parts driver for the procedure? *Please Verify the [...] 1:00 PM EST Office Visit Hematology/Oncology at [address] [phone] Lee Ann Jay MD [facility] DR HEMATOLOGY [place] [address] Leti Anderson APRN [facility] DR HEMATOLOGY [place] [address] documented as of this encounter Visit Diagnoses Not on filedocumented in this encounter Care Teams Diamond Setter Relationship Specialty Start Date End Date Julia Chatterjee MD [address] [place] [address] PCP - General 01/31/10 documented as of this encounter
--- OUTSIDE RECORDS SUMMARY | 2023-10-24 02:33 | XMS_ITS | Encounter Summary ---
Author Organization [facility] [place] [address] Care Team Providers Care Vinegar Maker Name Role Phone Julia Chatterjee MD Primary Care Provider [phone] Encounter Details Date Type Department Care Team (Late Contact Info) Description 06/20/2021 Orders Only Hematology [place] [address] Lee Ann Jay MD [facility] [place] [address] H/O upper respiratory infection; Leukopenia, unspecified type [...] PM EST Office Visit Hematology/Oncology at [address] [phone] Lee Ann Jay MD [facility] [place] [address] Leti Anderson, MAGNETIC DOCTOR [facility] [place] [address] documented as of this encounter Results * (ABNORMAL) COVID-19 Nucleocapsid Antibody (06/23/2021 10:42 AM EDT) Pathologist [facility] SARS-CoV-2 Nucleocap Ab Detected (A) Not Detected [facility] Comment: This test only detects [...] due to past or present infection with nfj-PGEX-AvH-2 coronavirus strains, such as coronavirus HKU1, NL63, OC43, or 229E. This test was performed using the [employer] Xivr-GOKO-FbR-2 total antibody test on the Cheo Román e801 analyzer. This serology test is available following FDA Emergency Use Authorization, however it has not been reviewed by the FDA, nor is it FDA cleared or approved. The performance characteristics of this test were determined by the Department of Pathology and Laboratory Medicine at [facility]. The laboratory is certified under the Clinical [...] fact sheets at the following FDA website: https://www.fda.gov/medical-devices/njhnnzclgel-omfkwdz-5012-fkukb-95-dplupvvid- use-a oiiuxuyjsekho-jbqplsp-fdsqwhz/clytw-nvnjuuolllj-jurq Blood 06/23/2021 10:4 2 AM EDT 06/23/2021 10:49 AM EDT Lee Ann Jay MD CHEMISTRY ORDERA BLES [facility] [place] [address] * COVID-19 Sigifredo Antibody (06/23/2021 10:42 AM EDT) SARS-CoV-2 Sigifredo Ab Not Detected [facility] Comment: This is a total [...] be due to a past infection with ley-WYCU-WbK-2 coronavirus strains, such as coronavirus HKU1, NL63, OC43, or 229E. This test was performed using the Elecsys Jtru-MJTE-ZpU-2 S total antibody assay on the Cheo Román e801 analyzer. This serology test is available following FDA Emergency Use Authorization, however it has not been reviewed by the FDA, nor is it FDA cleared or approved. The performance characteristics of this test were determined by the Department of Pathology and Laboratory Medicine at [facility]. The laboratory is certified under the Clinical [...] fact sheets at the following FDA website: https://www.fda.gov/medical-devices/nkhkavsfkdh-wpgxoxa-3519-xuoxi-36-vxgbtrwmm- use-a ntfznnziarrai-fkivdtf-ynmvhcv/jszvp-wlpwdpxdues-yqyx Blood 06/23/2021 10:4 2 AM EDT 06/23/2021 10:49 AM EDT Lee Ann Jay MD [place] [address] documented in this encounter Visit Diagnoses Diagnosis H/O upper respiratory infection Personal history of unspecified disease of respiratory system Leukopenia, unspecified type documented in this encounter Care Teams Vinegar Maker Relationship Specialty Start Date End Date Julia Chatterjee MD [address] [place] [address] PCP - General 01/31/10 documented as of this encounter
--- OUTSIDE RECORDS SUMMARY | 2023-10-24 02:33 | XMS_ITS | Encounter Summary ---
Author Organization Formerly [facility] Address [facility] [place] [address] Care Team Providers Care Miller Distillery Name Role Phone Julia Chatterjee MD Primary Care Provider [phone] Encounter Details Date Type Department Care Team (Latest Contact Info) Description 09/19/2020 4:30 PM EDT TH Visit (TeleHealth) [place] [address] Yola Oliveros MD [facility] [place] [address] Other ulcerative colitis with complication Social History [...] help much - Followed with a local account service representative and used dietary supplements to maintain remission - Did well until August 2019 when she developed abdominal pain, fevers, loose stool. Went to [facility] andd CT showing inflamed colon. [...] qhs after colonoscopy in October 2019 - [place] worse on [place] - fecal calpro 109 [...] scheduled on October 13 to go to [place] for a second opinion regarding her LGL. [...] past surgical history that includes Colonoscopy, Biopsy (64042) (07/05/2011); Colonoscopy, Remv Noeln, Snare (54193) (07/05/2011); Bone Marrow Aspiration W/Bx Through Same Incision/Site (G0364) (Right, 01/08/2017); Bone Marrow Bx, Needle/Trocar (74118) (Right, 01/08/2017);CT Guided Aspiration Liver (09/02/2019); Sigmoidoscopy, Diagnostic (24438) (N/A, 09/02/2019); IR Drain Check/Change/Remove (09/28/2019); and Colonoscopy, Biopsy (40707) (N/A, 10/22/2019). Family History: family history is [...] preparing for this visit, counseling the patient zxjf-xe-inbe on the issues outlined above, and documenting an implementing the plan. Ms. Parry was located in [place] at the time of this visit. Marija Oliveros MD Vehicle Controls Engineerdress fitter Co-Director, [facility] Section of Gastroenter[place] [address] documented in this encounter Plan of Treatment Upcoming Encounters Date Type Department Care Team (Late st Contact Info) Description 04/15/2024 1:00 PM EST Office Visit Hematology/Oncology at [address] [phone] Lee Ann Jay MD [facility] DR HEMATOLOGY [place] [address] Leti Anderson APRN [facility] DR HEMATOLOGY [place] [address] documented as of this encounter Visit Diagnoses Diagnosis Other ulcerative colitis with complication documented in this encounter Care Teams Miller Distillery Relationship Specialty Start Date End Date Julia Chatterjee MD [address] [place] [address] PCP - General 01/31/10 documented as of this encounter
--- OUTSIDE RECORDS SUMMARY | 2023-10-24 02:33 | XMS_ITS | Encounter Summary ---
Author Organization [facility]ly [facility] [place] [address] Care Team Providers Care Cvir Tech Name Role Phone Julia Chatterjee MD Primary Care Provider [phone] Encounter Details Date Type Department Care Team (Late Contact Info) Description 03/12/2023 Orders Only [place]ology [place] [address] Lee Ann Jay MD [facility] HEMATOLOGY [place] [address] Social History Tobacco Use Types Packs/Day Years [...] PM EST Office Visit Hematology/Oncology at [address] [phone] Lee Ann Jay MD [facility] HEMATOLOGY [place] [address] Leti Anderson, PRIVACY SPECIALIST [facility] HEMATOLOGY [place] [address] documented as of this encounter Visit Diagnoses Not on filedocumented in this encounter Care Teams Cvir Tech Relationship Specialty Start Date End Date Julia Chatterjee MD [facility] [address] [facility] 1 [place] [address] PCP - General 01/31/10 documented as of this encounter
--- OUTSIDE RECORDS SUMMARY | 2023-10-24 02:33 | XMS_ITS | Encounter Summary ---
Author Organization [facility] [place] [address] Care Team Providers Care Steel Analyst Name Role Phone Julia Chatterjee MD Primary Care Provider [phone] Reason for Visit * Reason Onset Date Comments Labs Only 06/26/2021 Encounter Details Date Type Department Care Team (Late st Contact Info) Description 06/26/2021 Telephone Hematology Oncology at [address] [phone] Billie Diaz RN Labs Only [...] got her lab work done today at [facility]. Thank you, Franchesca documented in this encounter Plan of Treatment Upcoming Encounters Date Type Department Care Team (Late st Contact Info) Description 04/15/2024 1:00 PM EST Office Visit Hematology/Oncology at [address] [phone] Lee Ann Jay MD [facility] DR HEMATOLOGY [place] [address] Leti Anderson, TELEPHONE COIN BOX COLLECTOR [facility] [place]ATOLOGY [place] [address] documented as of this encounter Visit Diagnoses Not on filedocumented in this encounter Care Teams Steel Analyst Relationship Specialty Start Date End Date Julia Chatterjee MD [facility] [address] [place] [address] PCP - General 01/31/10 documented as of this encounter
--- OUTSIDE RECORDS SUMMARY | 2023-10-24 02:33 | XMS_ITS | Encounter Summary ---
Author Organization [facility] [place] [address] Care Team Providers Care Nurse Staff Industrial Name Role Phone Julia Chatterjee MD Primary Care Provider [phone] Reason for Visit * Reason Onset Date Comments Abnormal Lab 04/09/2023 Encounter Details Date Type Department Care Team (Late Contact Info) Description 04/09/2023 Telephone Hematology/Oncology at [address] [phone] Vicky Madrigal RN Abnormal Lab [...] Madrigal RN - 04/09/2023 9:00 AM EST [facility] lab called to report critical WBC 1.95 and ANC 0.12, pt has hx of leukopenia and has FUV scheduled with us 04/17/23. Providers made aware. documented in this encounter Plan of Treatment Upcoming Encounters Date Type Department Care Team (Late Contact Info) Description 04/15/2024 1:00 PM EST Office Visit Hematology/Oncology at [address] [phone] Lee Ann Jay MD [facility] DR HEMATOLOGY [place] [address] Leti Anderson APRN [facility] HEMATOLOGY [place] [address] documented as of this encounter Visit Diagnoses Not on filedocumented in this encounter Care Teams Nurse Staff Industrial Relationship Specialty Start Date End Date Julia Chatterjee MD [facility] [address] F[address] [facility] 1 [place] [address] PCP - General 01/31/10 documented as of this encounter
--- OUTSIDE RECORDS SUMMARY | 2023-10-24 02:33 | XMS_ITS | Clinical Summary ---
Author Organization [facility] Address [facility] [place] [address] Care Team Providers Care Roof Assembler Name Role Phone Julia Chatterjee MD Primary Care Provider [phone] Allergies Active Allergy Reactions Criticality Noted Date [...] help much - Followed with a local miller rod mill and used dietary supplements to maintain remission - Did well until August 2019 when she developed abdominal pain, fevers, loose stool. Went to [facility] and had CT showing inflamed colon. [...] qhs after colonoscopy in October 2019 - [place] worse on Canasa - fecal calpro 109 [...] flow ) are being pursued at the [place] labs. Should ??cytopenias persist , it may [...] PM EST Office Visit Hematology/Oncology at [address] [phone] Lee Ann Jay MD [facility] [place] [address] Leti Anderson APRN [facility] [place] [address] Health Maintenance Due Date Last Done Comments [...] Influenza standard series) 11/10/2023 Colonoscopy 04/12/2024 04/12/2022, 02/0 04/2022, 04/12/2022, Additional history exists Colorectal Cancer Screening 04/12/2024 Sigmoidoscopy 09/01/2024 09/02/2019 Sigmoidoscopy (10 year) with FIT yearly 04/12/2032 04/12/2022, 04/12/2022, 04/12/2022, Additional history exists Hepatitis C Screening Completed 07/09/2016 Diabetes Screening (HgbA1C o r Glucose) Discontinued 04/09/2023, 04/09/2023, 09/04/2019, Additional history exists Procedures Procedure Name Priority Date/Time Associated Diagnosis Comments LAB SCAN 10/23/2023 12:00 AM EDT LAB SCAN 10/22/2023 12:00 AM EDT COMPREHENSIVE METABOLIC PANEL Routine 04/09/2023 COLONOSCOPY Routine 04/12/2022 7:40 AM EST HEPATITIS C ANTIBODY Routine 07/09/2016 12:00 PM EDT Leukopenia, unspecified type from Last 3 Months or Most Recently Relevant to Health Maintenance Results * Scan Doc: Lab (10/23/2023 12:00 AM EDT) Only the most recent of2 resultswithin the time period is included. Narrative 10/23/2023 12:00 AM EDT Ordered by an unspecified provider. Scanning Provider MEDIA MGR SCAN EXT O RDR/RSLT * Comprehensive metabolic panel (non-fasting) (04/09/2023) Glucose 101 Blood Urea Nitrogen 12 Creatinine 0.8 Sodium 138 Potassium 4.2 Calcium 9.1 Protein, Total 8.2 Albumin 3.6 Bilirubin, Total 0.6 Alkaline Phosphatase 78 Aspartate Aminotransferase 21 Alanine Aminotransferase 21 Blood 04/09/2023 Historical Provider CHEMISTRY ORDERAB LES * COLONOSCOPY (04/12/2022 7:40 AM EST) Pathologist [facility] COLONOSCOPY [facility] Endoscopy ___ Procedure Date: 04/12/2022 7:40 AM ? Patient Name: Leti Parry ? Date of : 1950 ? Age: 71 ? Order #: [id number] ? Instrument Name: [id number] ? ___ Procedure: ? Colonoscopy Indications: ? Disease activity assessment of ? left-sided chronic ulcerative ? colitis Patient Profile: ? This is a 71 year old female. This ? patient has left-sided ulcerative ? colitis, is taking no medication ? therapy for this disease and is ? asymptomatic. Providers: ? LKris Oliveros MD, Sherin Lawrence, ? Roman Spence, Mortgage Branch Manager Referring MD: ?Julia Chatterjee MD Medicines: ? [...] preparation was evaluated ? using the BBPS (Hedrick Bowel ? Preparation Scale) with scores of: [...] GENERAL SURGICAL ORD ERABLES Performing Organization Address [facility] Co de Phone Number PROVATION * Hepatitis C Antibody (07/09/2016 12:00 PM EDT) Hepatitis C Antibody Negative Negative [facility] Comment: An updated Hepatitis C Ab assay reagent was implemented on 05/23/16. Please contact Dr. Alfaro at [phone] with any questions or concerns. Blood specimen (specimen) 07/09/2016 12:00 PM EDT 07/09/2016 12:09 PM EDT Narrative Resulting Agency Comment Spec In Lab Lee Ann Jay MD CHEMISTRY LILA ROBERTS Performing Organization Address [facility] Co de Phone Number [facility] [place] [address] from Last 3 Months or Most Recently [...] capacity to make decision: Yes Care Teams Roof Assembler Relationship Specialty Start Date End Date Julia Chatterjee MD [address] [place] [address] PCP - General 01/31/10
--- OUTSIDE RECORDS SUMMARY | 2023-10-24 02:33 | XMS_ITS | Encounter Summary ---
[place] [address] Care Team Providers Care Production Line Worker Name Role Phone Julia Chatterjee MD Primary Care Provider [phone] Reason for Visit * Reason Onset Date Comments Reminder Appointment 02/02/2020 Encounter Details Date Type Department Care Team (Late Contact Info) Description 02/02/2020 [place] [phone] Christy Lopez CCMA Reminder Appointment Social History [...] PM EST Office Visit Hematology/Oncology at [address] [phone] Lee Ann Jay MD [facility] [address] [place] [address] Leti Anderson APRN [facility] [place] [address] documented as of this encounter Visit Diagnoses Not on filedocumented in this encounter Care Teams Production Line Worker Relationship Specialty Start Date End Date Julia Chatterjee MD [facility] [address] [place] [address] PCP - General 01/31/10 documented as of this encounter
--- OUTSIDE RECORDS SUMMARY | 2023-10-24 02:33 | XMS_ITS | Encounter Summary ---
Author Organization [facility] Address [facility] [place] [address] Care Team Providers Care Animal Control Officer Name Role Phone Julia Chatterjee MD Primary Care Provider [phone] Encounter Details Date Type Department Care Team (Late Contact Info) Description 11/06/2019 Telephone [place] [phone] Ailyn Momin RN Social History Tobacco Use [...] PM EDT Call received from lab at [facility] with critical lab value on pt. WBC: 1.69 ANC 0.42 They will fax paper copy to us Will send to Dr. Oliveros/Olya and Dr. Jay documented in this encounter Plan of Treatment Upcoming Encounters Date Type Department Care Team (Late Contact Info) Description 04/15/2024 1:00 PM EST Office Visit Hematology/Oncology at [address] [phone] Lee Ann Jay MD [facility] [place] [address] Leti Anderson APRN [facility] [place] [address] documented as of this encounter Visit Diagnoses Not on filedocumented in this encounter Care Teams Animal Control Officer Relationship Specialty Start Date End Date Julia Chatterjee MD [facility] [address] [place] [address] PCP - General 01/31/10 documented as of this encounter
--- OUTSIDE RECORDS SUMMARY | 2023-10-24 02:33 | XMS_ITS | Encounter Summary ---
Author Organization [facility] Address [facility] [place] [address] Care Team Providers Care Marketing Ambassador Name Role Phone Julia Chatterjee MD Primary Care Provider [phone] Encounter Details Date Type Department Care Team (Late st Contact Info) Description 04/27/2020 1:00 PM EST Office Visit Hematology/Oncology at [address] [phone] Lee Ann Jay MD [facility] DR HEMATOLOGY [place] [address] Large granular lymphocytic leukemia Social History Tobacco [...] help much - Followed with a local cane flume watchman and used dietary supplements to maintain remission - Did well until August 2019 when she developed abdominal pain, fevers, loose stool. Went to [facility] andd CT showing inflamed colon. Flex sig [...] qhs after colonoscopy in October 2019 - [place] worse on Canasa - fecal calpro 109 [...] flow ) are being pursued at the [facility]. Should ??cytopenias persist , it may be [...] better now with the help of her cane flume watchman. Feels well, good energy . No infections. [...] LIVER 09/02/2019 CT Guided Aspiration Liver 09/02/2019 [facility] RAD CAT SCAN ??? IR DRAIN CHECK/CHANGE/REMOVE 09/28/2019 IR Drain Check/Change/Remove 09/28/2019 Cliff Langston MD [facility] INTERVENTIONL RAD ??? PRO BONE MARROW ASPIRATION W/BX THROUGH SAME INCISION/SITE Right 01/08/2017 [facility] BONE MARROW ASP PERFORMED W/BX THRU BX INCISION (WRVU 0.16) performed by Lee Ann Jay MD at [facility] OSC ??? PRO BONE MARROW BX, NEEDLE/TROCAR Right 01/08/2017 ([facility]) BONE MARROW,BIOPSY (WRVU 1.37) performed by Lee Ann Jay MD at [facility] OSC ??? PRO COLONOSCOPY, BIOPSY 07/05/2011 COLONOSCOPY FLEXIBLE, WITH BX performed by AYAZ NELSON at [facility] ENDOSCOPY ??? PRO COLONOSCOPY, BIOPSY N/A 10/22/2019 COLONOSCOPY FLEXIBLE, WITH BX (WRVU 3.66) performed by Yola Oliveros MD at [facility] ENDOSCOPY ??? PRO COLONOSCOPY, REMV LESN, SNARE 07/05/2011 COLONOSCOPY, POLYPECTOMY, REMOVAL LESION BY SNARE performed by AYAZ NELSON at [facility] ENDOSCOPY ??? PRO SIGMOIDOSCOPY, DIAGNOSTIC N/A 09/02/2019 FLEXIBLE SIGMOIDOSCOPY performed by Ayaz Nelson MD at [facility] ENDOSCOPY Medications; Current Outpatient Medications on File [...] low white counts. Social History: Lives in [facility]. . 1 son 38 years old- healthy. 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 Should ??cytopenias persist , it may [...] receptor gene rearrangement detected. Radiology: US at [facility] 11/2016. Liver 14.5 cm. Spleen 8cm. Assessment and Recommendations: 69 y.o. Healthy female who has been referred to us for leukopenia. She has had leukopenia since 2006 with normal hemoglobin and platelet. She has no symptoms- no increased frequency of infections. 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 She has been working with a cane flume watchman who started her on selenium and zinc and about a dozen other supplements. Counts are a bit higher so we will see. Railroad Hand has been helping her with bowel issues. These are better w/ diet adjustments. Diet changes have helped her UC and GI symptoms. Of note, she is on multiple naturopathic medications through her ladle pourer - mostly to help w/ herGI tract. [...] This note was written or modified using [employer] voice recognition software. The final note was screened for mistakes. Please excuse any remaining errors. documented in this encounter Plan of Treatment Upcoming Encounters Date Type Department Care Team (Late st Contact Info) Description 04/15/2024 1:00 PM EST Office Visit Hematology/Oncology at [address] [phone] Lee Ann Jay MD [facility] HEMATOLOGY [place] [address] Leti Anderson APRN [facility] HEMATOLOGY [place] [address] documented as of this encounter Procedures Procedure [...] documented in this encounter Care Teams Marketing Ambassador Relationship Specialty Start Date End Date Julia Chatterjee MD [facility] [address] [place] [address] PCP - General 01/31/10 documented as of this encounter
--- OUTSIDE RECORDS SUMMARY | 2023-10-24 02:33 | XMS_ITS | Encounter Summary ---
Author Organization [facility] [place] [address] Care Team Providers Care Cylinder Die Machine Helper Name Role Phone Julia Chatterjee MD Primary Care Provider [phone] Encounter Details Date Type Department Care Team (Late Contact Info) Description 04/05/2021 Telephone Hematology/Oncology at [address] [phone] Leonardo Fatima Social History Tobacco [...] PM EST Office Visit Hematology/Oncology at [address] [phone] Lee Ann Jay MD [facility] HEMATOLOGY [place] [address] Leti Anderson, NETWORK PRICING CONSULTANT [facility] [place] [address] documented as of this encounter Visit Diagnoses Not on filedocumented in this encounter Care Teams Cylinder Die Machine Helper Relationship Specialty Start Date End Date Julia Chatterjee MD [address] [place] [address] PCP - General 01/31/10 documented as of this encounter
--- OUTSIDE RECORDS SUMMARY | 2023-10-24 02:33 | XMS_ITS | Encounter Summary ---
Author Organization [facility] [place] [address] Care Team Providers Care Nursing Home Physician Name Role Phone Julia Chatterjee MD Primary Care Provider [phone] Reason for Visit * Reason Onset Date Comments Other 06/19/2021 Antibody testing Encounter Details Date Type Department Care Team (Late st Contact Info) Description 06/19/2021 Telephone Hematology/Oncology at [address] [phone] Mera Cintron RN Other (Antibody [...] PM EST Office Visit Hematology/Oncology at [address] [phone] Lee Ann Jay MD [facility] DR HEMATOLOGY [place] [address] Leti Anderson APRN [facility] HEMATOLOGY [place] [address] documented as of this encounter Visit Diagnoses Not on filedocumented in this encounter Care Teams Nursing Home Physician Relationship Specialty Start Date End Date Julia Chatterjee MD [facility] [address] [place] [address] PCP - General 01/31/10 documented as of this encounter
--- OUTSIDE RECORDS SUMMARY | 2023-10-24 02:33 | XMS_ITS | Encounter Summary ---
Author Organization [facility] [place] [address] Care Team Providers Care Electrical Instrument Maker Name Role Phone Julia Chatterjee MD Primary Care Provider [phone] Encounter Details Date Type Department Care Team (Late Contact Info) Description 01/21/2020 Telephone [place] [phone] Ailyn Momin RN Social History Tobacco Use [...] - 01/21/2020 10:35 AM EST Call from [facility] lab with critical lab values for Leti. WBC: 1.62 ANC: 0.[address] Oliveros and Dr. Jay aware documented in this encounter Plan of Treatment Upcoming Encounters Date Type Department Care Team (Late Contact Info) Description 04/15/2024 1:00 PM EST Office Visit Hematology/Oncology at [address] [phone] Lee Ann Jay MD [facility] DR HEMATOLOGY [place] [address] Leti Anderson APRN [facility] DR HEMATOLOGY [place] [address] documented as of this encounter Visit Diagnoses Not on filedocumented in this encounter Care Teams Electrical Instrument Maker Relationship Specialty Start Date End Date Julia Chatterjee MD [facility] [address] [address] PCP - General 01/31/10 documented as of this encounter
--- OUTSIDE RECORDS SUMMARY | 2023-10-24 02:33 | XMS_ITS | Encounter Summary ---
Author Organization [facility] [place] [address] Care Team Providers Care Children'S Nursery Assistant Name Role Phone Julia Chatterjee MD Primary Care Provider [phone] Encounter Details Date Type Department Care Team (Late Contact Info) Description 10/12/2020 Telephone [place] [phone] Tahmina Chacko Social History Tobacco Use Types [...] encounter Miscellaneous Notes * Telephone Encounter - aThmina Chacko - 10/12/2020 5:51 PM EDT Patient away. Ask to be called middle of October to schedule follow-up with Dr. Oliveros in Jun or July documented in this encounter Plan of Treatment Upcoming Encounters Date Type Department Care Team (Late Contact Info) Description 04/15/2024 1:00 PM EST Office Visit Hematology/Oncology at [address] [phone] Lee Ann Jay MD [facility] DR HEMATOLOGY [place] [address] Leti Anderson APRN [facility] DR HEMATOLOGY [place] [address] documented as of this encounter Visit Diagnoses Not on filedocumented in this encounter Care Teams Children'S Nursery Assistant Relationship Specialty Start Date End Date Julia Chatterjee MD [facility] [address] [facility] [address] [place] [address] PCP - General 01/31/10 documented as of this encounter
--- OUTSIDE RECORDS SUMMARY | 2023-10-24 02:33 | XMS_ITS | Encounter Summary ---
Author Organization [facility] [place] [address] Care Team Providers Care Drywall Application Supervisor Name Role Phone Julia Chatterjee MD Primary Care Provider [phone] Encounter Details Date Type Department Care Team (Late st Contact Info) Description 08/03/2021 Telephone Hematology/Oncology at [address] [phone] Blaire Alarcon RN Social History [...] why. Can we call her back at [phone]. Thanks Valentina~ documented in this encounter Plan of Treatment Upcoming Encounters Date Type Department Care Team (Late st Contact Info) Description 04/15/2024 1:00 PM EST Office Visit Hematology/Oncology at [address] [phone] Lee Ann Jay MD [facility] DR HEMATOLOGY [place] [address] Leti Anderson APRN [facility] HEMATOLOG[place] [address] documented as of this encounter Visit Diagnoses Not on filedocumented in this encounter Care Teams Drywall Application Supervisor Relationship Specialty Start Date End Date Julia Chatterjee MD [facility] [address] [place] [address] PCP - General 01/31/10 documented as of this encounter
--- OUTSIDE RECORDS SUMMARY | 2023-10-24 02:33 | XMS_ITS | Encounter Summary ---
Author Organization [facility] [place] [address] Care Team Providers Care Head Grinder Name Role Phone Julia Chatterjee MD Primary Care Provider [phone] Encounter Details Date Type Department Care Team (Late Contact Info) Description 10/22/2019 Orders [place] [address] Hesham Dobson MD [facility] [place] [address] Social History Tobacco Use Types Packs/Day Years [...] PM EST Office Visit Hematology/Oncology at [address] [phone] Lee Ann Jay MD [facility] DR [place] [address] Leti Anderson, DRYLAND FARMER [facility] [place] [address] documented as of this encounter Visit Diagnoses Not on filedocumented in this encounter Care Teams Head Grinder Relationship Specialty Start Date End Date Julia Chatterjee MD [address] [facility] [place] [address] PCP - General 01/31/10 documented as of this encounter
--- OUTSIDE RECORDS SUMMARY | 2023-10-24 02:33 | XMS_ITS | Encounter Summary ---
Author Organization [facility] Address [facility] [place] [address] Care Team Providers Care Postpartum Rn Name Role Phone Julia Chatterjee MD Primary Care Provider [phone] Encounter Details Date Type Department Care Team (Latest Contact Info) Description 06/07/2020 9:30 AM EDT TH Visit (TeleHealth) [place] [address] Yola Jenkins MD [facility] [place] [address] Other ulcerative colitis with complication Social History [...] help much - Followed with a local composition stone applicator and used dietary supplements to maintain remission - Did well until August 2019 when she developed abdominal pain, fevers, loose stool. Went to [facility] andd CT showing inflamed colon. Flex sig [...] qhs after colonoscopy in October 2019 - [place] worse on Canasa - fecal calpro 109 [...] past surgical history that includes Colonoscopy, Biopsy (39277) (07/05/2011); Colonoscopy, Remv Leroy, Snare (86883) (07/05/2011); Bone Marrow Aspiration W/Bx Through Same Incision/Site ([id number]) (Right, 01/08/2017); Bone Marrow Bx, Needle/Trocar ([id number]) (Right, 01/08/2017);CT Guided Aspiration Liver (09/02/2019); Sigmoidoscopy, Diagnostic ([id number]) (N/A, 09/02/2019); IR Drain Check/Change/Remove (09/28/2019); and Colonoscopy, Biopsy ([id number]) (N/A, 10/22/2019). Family History: family history is [...] preparing for this visit, counseling the patient [id number] on the issues outlined above, and documenting an implementing the plan. Ms. Parry was located in [place] at the time of this visit. Marija Jenkins MD Bead Pickerpc analyst Co-Director, [facility] Section of Gastroenter[place] [address] documented in this encounter Miscellaneous Notes * Addendum Note - Yola Jenkins MD - 06/07/2020 9:30 AM EDTAddended by: Yola JENKINS on: 06/07/2020 10:25 AM Modules accepted: Orders documented in this encounter Plan of Treatment Upcoming Encounters Date Type Department Care Team (Late st Contact Info) Description 04/15/2024 1:00 PM EST Office Visit Hematology/Oncology at [address] [phone] Lee Ann Jay MD [facility] DR HEMATOLOGY [place] [address] Leti Anderson APRN [facility] HEMATOLOGY [place] [address] documented as of this encounter Visit Diagnoses Diagnosis Other ulcerative colitis with complication documented in this encounter Care Teams Postpartum Rn Relationship Specialty Start Date End Date Julia Chatterjee MD [facility] [address] [place] [address] PCP - General 01/31/10 documented as of this encounter
--- OUTSIDE RECORDS SUMMARY | 2023-10-24 02:33 | XMS_ITS | Encounter Summary ---
Author Organization [facility] [place] [address] Care Team Providers Care Career And Guidance Counselor Name Role Phone Julia Chatterjee MD Primary Care Provider [phone] Encounter Details Date Type Department Care Team (Late Contact Info) Description 05/09/2020 Orders [place] [address] Yola Oliveros MD [facility] [place] [address] Other ulcerative colitis with complication; Leukopenia, unspecified [...] 1:00 PM EST Office Visit Hematology/Oncology at [address] [phone] Lee Ann Jay MD [facility] DR [place] [address] Leti Anderson, PROPERTY MAINTENANCE SUPERVISOR [facility] DR [place] [address] documented as of this encounter Visit Diagnoses Diagnosis Other ulcerative colitis with complication Leukopenia, unspecified type documented in this encounter Care Teams Career And Guidance Counselor Relationship Specialty Start Date End Date Julia Chatterjee MD [address] [place] [address] PCP - General 01/31/10 documented as of this encounter
--- OUTSIDE RECORDS SUMMARY | 2023-10-24 02:33 | XMS_ITS | Encounter Summary ---
Author Organization [facility] [place] [address] Care Team Providers Care E Commerce Solution Architect Name Role Phone Julia Chatterjee MD Primary Care Provider [phone] Reason for Visit * Reason Onset Date Comments Abnormal Lab 04/11/2021 critical ANC Encounter Details Date Type Department Care Team (Late Contact Info) Description 04/11/2021 Telephone Hematology/Oncology at [address] [phone] Vicky Madrigal RN Abnormal [...] Telephone Encounter - Vicky Madrigal RN - 04/11/2021 1:27 PM EST [facility] lab called reporting critical ANC of 0.4 on Leti Parry today. 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 Providers made aware. documented in this encounter Plan of Treatment Upcoming Encounters Date Type Department Care Team (Late Contact Info) Description 04/15/2024 1:00 PM EST Office Visit Hematology/Oncology at [address] [phone] Lee Ann Jay MD [facility] DR HEMATOLOGY [place] [address] Leti Anderson APRN [facility] HEMATOLOGY [place] [address] documented as of this encounter Visit Diagnoses Not on filedocumented in this encounter Care Teams E Commerce Solution Architect Relationship Specialty Start Date End Date Julia Chatterjee MD [facility] KINA FELIZ [facility] [address] [place] [address] PCP - General 01/31/10 documented as of this encounter
--- OUTSIDE RECORDS SUMMARY | 2023-10-24 02:33 | XMS_ITS | Encounter Summary ---
Author Organization [facility] [place] [address] Care Team Providers Care Oral And Maxillofacial Surgeon Name Role Phone Julia Chatterjee MD Primary Care Provider [phone] Encounter Details Date Type Department Care Team (Late Contact Info) Description 01/19/2020 Orders [place] [address] Jihan Girard WEATHERIZATION SPECIALIST [facility] [place] [address] Other ulcerative colitis with complication Social History [...] PM EST Office Visit Hematology/Oncology at [address] [phone] Lee Ann Jay MD [facility] DR HEMATOLOGY [place] [address] Leti Anderson, JAYLEN [facility] HEMATOLOGY [place] [address] documented as of this encounter Visit Diagnoses Diagnosis Other ulcerative colitis with complication documented in this encounter Care Teams Oral And Maxillofacial Surgeon Relationship Specialty Start Date End Date Julia Chatterjee MD [facility] KINA FELIZ [facility] [address] [place] [address] PCP - General 01/31/10 documented as of this encounter
--- OUTSIDE RECORDS SUMMARY | 2023-10-24 02:33 | XMS_ITS | Encounter Summary ---
Author Organization [facility] Address [facility] [place] [address] Care Team Providers Care Soap Tender Name Role Phone Julia Chatterjee MD Primary Care Provider [phone] Encounter Details Date Type Department Care Team (Latest Contact Info) Description 11/02/2019 9:00 AM EDT TH Visit (TeleHealth) [place] [address] Yola Oliveros MD [facility] [place] [address] Other ulcerative colitis with complication Social History [...] help much - Followed with a local shipfitter helper and used dietary supplements to maintain remission - Did well until August 2019 when she developed abdominal pain, fevers, loose stool. Went to [facility] andd CT showing inflamed colon. Flex [...] past surgical history that includes Colonoscopy, Biopsy (13738) (07/05/2011); Colonoscopy, Remv Lesn, Snare (30375) (07/05/2011); Bone Marrow Aspiration W/Bx Through Same Incision/Site (G0364) (Right, 01/08/2017); Bone Marrow Bx, Needle/Trocar (34849) (Right, 01/08/2017);CT Guided Aspiration Liver (09/02/2019); Sigmoidoscopy, Diagnostic (60254) (N/A, 09/02/2019); IR Drain Check/Change/Remove (09/28/2019); and Colonoscopy, Biopsy (95524) (N/A, 10/22/2019). Family History: family history is [...] that oral + rectal therapy has been terminal worker outcomes than either alone. We discussed that the goal of therapy is to prevent assisted complications of uncontrolled inflammation such as colon [...] with Dr. Domo Dobson MD [facility] [place] [address] ATTENDING ADDENDUM I interviewed Leti Parry with [...] the issues outlined above. Marija Oliveros MD Licensed Loan Officertelephone messenger Co-Director, [facility] Section of Gastroenterology and Hepatology [facility] [place] [address] documented in this encounter Plan of Treatment Upcoming Encounters Date Type Department Care Team (Late st Contact Info) Description 04/15/2024 1:00 PM EST Office Visit Hematology/Oncology at [address] [phone] Lee Ann Jay MD [facility] DR [place] [address] Leti Anderson APRN [facility] DR [place] [address] documented as of this encounter Visit Diagnoses Diagnosis Other ulcerative colitis with complication documented in this encounter Care Teams Soap Tender Relationship Specialty Start Date End Date Julia Chatterjee MD [facility] KINA [address] [place] [address] PCP - General 01/31/10 documented as of this encounter
--- OUTSIDE RECORDS SUMMARY | 2023-10-24 02:33 | XMS_ITS | Encounter Summary ---
Author Organization [facility] Address [facility] [place] [address] Care Team Providers Care Network Engineer Name Role Phone Julia Chatterjee MD Primary Care Provider [phone] Reason for Visit * Reason Comments Other neupogen Encounter Details Date Type Department Care Team (Late st Contact Info) Description 08/01/2021 4:00 PM EDT Infusion Hematology Oncology at [address] [phone] Large granular lymphocytic leukemia Social [...] na REASON FOR VISIT: neupogen SUBJECTIVE Leti Keenan Sohan offers no complaints. OBJECTIVE neupogen 480 mcg in left upper arm REACTIONS (DESCRIPTION, TIME, INTERVENTION AND EFFECTIVENESS) none ASSESSMENT Leti Parry was awake, alert and he tolerated treatment well. PLAN Return to clinic per routine. documented in this encounter Plan of Treatment Upcoming Encounters Date Type Department Care Team (Late st Contact Info) Description 04/15/2024 1:00 PM EST Office Visit Hematology/Oncology at [address] [phone] Lee Ann Jay MD [facility] DR HEMATOLOGY [place] [address] Leti Anderson, JAYLEN [facility] [place]EMATOLOGY [place] [address] documented as of this encounter Visit Diagnoses [...] Arm documented in this encounter Care Teams Network Engineer Relationship Specialty Start Date End Date Julia Chatterjee MD [facility] [address] [place] [address] PCP - General 01/31/10 documented as of this encounter
--- OUTSIDE RECORDS SUMMARY | 2023-10-24 02:33 | XMS_ITS | Encounter Summary ---
[place] [address] Care Team Providers Care Photographic Equipment Mechanic Name Role Phone Julia Chatterjee MD Primary Care Provider [phone] Reason for Visit * Reason Onset Date Comments Prior Authorization 11/11/2019 Encounter Details Date Type Department Care Team (Late st Contact Info) Description 11/11/2019 Telephone [place] [phone] Adia Angel CMA GASTROENTEROLOGY DEPT Prior Authorization [...] Prior Authorization 4L Gastroenterology / [place] [address] Subscriber Insurance: [employer] Phone: Fax: Physician: [...] 1:00 PM EST Office Visit Hematology/Oncology at [address] [phone] Lee Ann Jay MD [facility] DR HEMATOLOGY [place] [address] Leti Anderson APRN [facility] DR HEMATOLOGY [place] [address] documented as of this encounter Visit Diagnoses Not on filedocumented in this encounter Care Teams Photographic Equipment Mechanic Relationship Specialty Start Date End Date Julia Chatterjee MD [facility] KINA [address] [place] [address] PCP - General 01/31/10 documented as of this encounter
--- OUTSIDE RECORDS SUMMARY | 2023-10-24 02:33 | XMS_ITS ---
Author Organization [facility] Address [facility] [place] [address] Care Team Providers Care Venetian Blind Washer Name Role Phone Julia Chatterjee MD Primary Care Provider [phone] Active Problems Problem Noted Date Diagnosed Date [...] help much - Followed with a local visiting nurse and used dietary supplements to maintain remission - Did well until August 2019 when she developed abdominal pain, fevers, loose stool. Went to [facility] and had CT showing inflamed colon. Flex [...] qhs after colonoscopy in October 2019 - [place] worse on Canasa - fecal calpro 109 [...] flow ) are being pursued at the [place] labs. Should ??cytopenias persist , it may [...] Date Treatment Medications Discontinue Reason Plan Provider [facility] THERAPY PLAN 04/11/2022 04/17/2023 No medications scheduled. Therapy Complete Lee Ann Jay MD Radiation Treatments * No radiation treatments are documented for this patient in [facility]. Treatments may have been administered in another system.
--- OUTSIDE RECORDS SUMMARY | 2023-10-24 02:33 | XMS_ITS | Encounter Summary ---
Author Organization [facility] [place] [address] Care Team Providers Care Investment Counselor Name Role Phone Julia Chatterjee MD Primary Care Provider [phone] Encounter Details Date Type Department Care Team (Latest Contact Info) Description 03/19/2023 8:12 AM EST - 03/19/2023 11:59 PM EST [place] [phone] Discharge Disposition: Home Social History Tobacco Use [...] PM EST Office Visit Hematology/Oncology at [address] [phone] Lee Ann Jay MD [facility] DR HEMATOLOGY [place] [address] Leti Anderson, HEEL WASHER STRINGING MACHINE OPERATOR [facility] HEMATOLOGY [place] [address] documented as of this encounter Procedures Procedure Name Priority Date/Time Associated Diagnosis Comments SURGICAL PATHOLOGY REPORT Routine 03/19/2023 12:43 PM EST documented in this encounter Results * (ABNORMAL) Surgical Pathology Report (03/19/2023 12:43 PM EST) Final Diagnosis [id number] ? Location: OPW The signing pathologist has (i) examined the relevant preparation(s) for the specimen(s) and (ii) rendered or confirmed the diagnosis(es). . ?Surgical Pathology DIAGNOSIS Right confucianism, skin shave biopsy: - ??Invasive squamous cell carcinoma, well differentiated, transected Electronically signed by: ?Berna PONCE, PhD, Nolan Keenan Verified: ??03/28/2023 11:42 ??Dermatopathol ogist, Bone & Soft Tissue Pathologist Performed at: ??-[facility] Dept. of Pathology, [place] [address] Cnc Service Engineer: Dyllan Vazquez MD, AP, ??CLIA Certificate: [id number] DISCUSSION THIS RESULT REQUIRES PHYSICIAN/A.P.P . FOLLOW UP SPECIMEN(S) SUBMITTED A - RIGHT RASTAFARI, SHAVE (1) Referring Identifier: ?(not provided) CLINICAL INFORMATION 4 mm keratotic nodule; SCC SPECIMEN PROCESSING A - Labeled/Fixativ e: Right confucianism, formalin. Quantity/Size: ??Single, 0.7 x 0.6 x 0.2 cm. Tissue Description: Shave of a ford-pink skin papule. Sections/Proces sing: Inked, trisected and entirely submitted in 1 cassette labeled A1. ??sns(A) 03/28/2023 11:[address] [facility] SPECIMEN FROM SKIN / Unknown 03/19/2023 12:43 PM EST 03/19/2023 12:43 PM EST Stefania Gill MD PATHOLOGY/CYTOLOGY O R[facility]ABLES [facility] [address] [place] [address] documented in this encounter Visit Diagnoses Not on filedocumented in this encounter Care Teams Investment Counselor Relationship Specialty Start Date End Date Julia Chatterjee MD [facility] [address] [place] [address] PCP - General 01/31/10 documented as of this encounter
--- OUTSIDE RECORDS SUMMARY | 2023-10-24 02:33 | XMS_ITS | Encounter Summary ---
Author Organization [facility] Address [facility] [place] [address] Care Team Providers Care Overlay Operator Name Role Phone Julia Chatterjee MD Primary Care Provider Encounter Details Date Type Department Care Team (Late st Contact Info) Description 04/11/2022 12:00 PM EST TH Visit (TeleHealth) Hematology/Oncology at [address] [phone] Lee Ann Rodriguez MD [facility] DR HEMATOLOG[place] [address] Large granular lymphocytic leukemia Social History Tobacco [...] help much - Followed with a local solution design and analysis manager and used dietary supplements to maintain remission - Did well until August 2019 when she developed abdominal pain, fevers, loose stool. Went to [facility] andd CT showing inflamed colon. [...] qhs after colonoscopy in October 2019 - [place] worse on Canasa - fecal calpro 109 [...] better now with the help of her solution design and analysis manager. Her sx are GREAT on the naturopathic meds with minimal GI symptoms Feels well, good energy . No infections. She enjoys her Peloton bike a few months ago. Loves the exercise and classes. Also does pilates and private classes. She is caring for her parents (92 and 88yo) in [facility]. Plans to travel with her camper to [facility] [facility] in Apr - . VW [facility]. No infections. Has been followed by a solution design and analysis manager. They are following her for inflammation markers- [...] LIVER 09/02/2019 CT Guided Aspiration Liver 09/02/2019 [facility] RAD CAT SCAN ??? IR DRAIN CHECK/CHANGE/REMOVE 09/28/2019 IR Drain Check/Change/Remove 09/28/2019 Cliff Langston MD [facility] INTERVENTIONL RAD ??? PRO BONE MARROW ASPIRATION W/BX THROUGH SAME INCISION/SITE Right 01/08/2017 ([facility] MSURG) BONE MARROW ASP PERFORMED W/BX THRU BX INCISION (WRVU 0.16) performed by Lee Ann Rodriguez MD at [facility] OSC ??? PRO COLONOSCOPY, BIOPSY 07/05/2011 COLONOSCOPY FLEXIBLE, WITH BX performed by AYAZ NELSON at [facility] ENDOSCOPY ??? PRO COLONOSCOPY, BIOPSY N/A 10/22/2019 COLONOSCOPY FLEXIBLE, WITH BX (WRVU 3.66) performed by Yola Oliveros MD at [facility] ENDOSCOPY ??? PRO COLONOSCOPY, REMV LESN, SNARE 07/05/2011 COLONOSCOPY, POLYPECTOMY, REMOVAL LESION BY SNARE performed by AYAZ NELSON at [facility] ENDOSCOPY ??? PRO DIAGNOSTIC BONE MARROW BIOPSIES Right 01/08/2017 ([facility] MSURG) BONE MARROW,BIOPSY (WRVU 1.37) performed by Lee Ann Rodriguez MD at [facility] OSC ??? PRO SIGMOIDOSCOPY, DIAGNOSTIC N/A 09/02/2019 FLEXIBLE SIGMOIDOSCOPY performed by Ayaz Nelson MD at [facility] ENDOSCOPY Medications; Current Outpatient Medications on File [...] low white counts. Social History: Lives in [facility]. . 1 son 38 years old- healthy. 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 Should ??cytopenias persist , it may [...] gene rearrangement detected. Radiology: US at [facility] 11/2016. Liver 14.5 cm. Spleen 8cm. Assessment and Recommendations: 71 y.o. Healthy female who has been referred to us for leukopenia. She has had leukopenia since 2006 with normal hemoglobin and platelet. She has no symptoms- no increased frequency of infections. 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 She has been working with a solution design and analysis manager who started her on selenium and zinc and about a dozen other supplements. Counts are a bit higher so we will see. Farm Equipment Mechanic has been helping her with bowel issues. These are better w/ diet adjustments. Diet changes have helped her UC and GI symptoms. Of note, she is on multiple naturopathic medications through her airdox fitter - mostly to help w/ herGI tract. [...] [address] Han Castillo at [facility], an LGL specialist, he did a [...] This note was written or modified using CSID voice recognition software. The final note was [...] PM EST Office Visit Hematology/Oncology at [address] [phone] Lee Ann Rodriguez MD [facility] HEMATOLOGY [place] [address] Leti Anderson APRN [facility] HEMATOLOGY [place] [address] documented as of this encounter Procedures Procedure [...] remission documented in this encounter Care Teams Overlay Operator Relationship Specialty Start Date End Date Julia Chatterjee MD [facility] [address] [place] [address] PCP - General 01/31/10 documented as of this encounter
--- OUTSIDE RECORDS SUMMARY | 2023-10-24 02:33 | XMS_ITS | Encounter Summary ---
Author Organization [facility] Address [facility] [place] [address] Care Team Providers Care Customs House Broker Name Role Phone Julia Chatterjee MD Primary Care Provider [phone] Encounter Details Date Type Department Care Team [...] PM EST Office Visit Hematology/Oncology at [address] [phone] Lee Ann Jay MD [facility] DR [place] [address] Leti Anderson, CASE MANAGERS [facility] [place] [address] documented as of this encounter Visit Diagnoses Not on filedocumented in this encounter Care Teams Customs House Broker Relationship Specialty Start Date End Date Julia Chatterjee MD [address] [place] [address] [id number] PCP - General 01/31/10 documented as of this encounter
--- OUTSIDE RECORDS SUMMARY | 2023-10-24 02:33 | XMS_ITS | Encounter Summary ---
Author Organization [facility] [place] [address] Care Team Providers Care Spanish Professor Name Role Phone Julia Chattrejee MD Primary Care Provider [phone] Reason for Visit * Reason Onset Date Comments Letter Request From Patient 01/30/2023 Encounter Details Date Type Department Care Team (Late st Contact Info) Description 01/30/2023 Telephone Hematology/Oncology at [address] [phone] Vicky Madrigal RN Letter Request [...] 12:50 PM EST To: Mera Cintron, RN; [facility] Hem Onc Nurse Leti called in to say that she has jury duty on 02/13/2023, she is not comfortable being in group of people that large and wondered if Dr. Jay would write her a note to get her out of it? Best call back number [phone] documented in this encounter Plan of Treatment Upcoming Encounters Date Type Department Care Team (Late st Contact Info) Description 04/15/2024 1:00 PM EST Office Visit Hematology/Oncology at [address] [phone] Lee Ann Jay MD [facility] DR HEMATOLOGY [place] [address] Leti Anderson APRN [facility] DR HEMATOLOGY [place] [address] documented as of this encounter Visit Diagnoses Not on filedocumented in this encounter Care Teams Spanish Professor Relationship Specialty Start Date End Date Julia Chatterjee MD [facility] DORADO [address] [place] [address] PCP - General 01/31/10 documented as of this encounter
--- OUTSIDE RECORDS SUMMARY | 2023-10-24 02:33 | XMS_ITS | Encounter Summary ---
Author Organization [facility] Address [facility] [place] [address] Care Team Providers Care Dressing Machine Operator Name Role Phone Julia Chatterjee MD Primary Care Provider Encounter Details Date Type Department Care Team (Late st Contact Info) Description 04/12/2022 8:00 AM EST - 04/12/2022 9:00 AM EST [place] [address] Yola Oliveros MD [facility] [place] [address] COLONOSCOPY FLEXIBLE, WITH BX (WRVU 3.56) Social [...] occurs, please contact your Doctor. Please call [phone] before 8pm Mon-Fri with problems, questions or concerns. If you call after 8pm or on weekends, call the Hospital at [phone] and ask to speak to the Drain Tiler telecommunications field engineer and the border machine operator will contact that person for you. When should you call for help? Call 361 anytime you think you may need emergency [...] any problems. Where can you learn more? [facility] View your After Visit Summary and more online at [email or web address] If you would like to provide feedback about your hospital experience, please call the Office of Patient and Family Relations at . If you have received this After Visit Summary in error, please immediately return it in person to the department, or notify the [facility] Privacy Office by calling toll free at between the hours of 8AM and 5PM to arrange for our retrieval of the documents at no cost to you. Content Version: 12.2 ?? [id number] [employer]. Care instructions adapted under license by [facility]. If you have questions about a medical condition or this instruction, always ask your healthcare professional. [employer] disclaims any warranty or liability for your [...] concerns or questions. Sincerely, Marija Oliveros MD Hadoop Administratoroil lease operator Co-Director, [facility] Section of Gastroenterology [place] [address] CC: Julia Chatterjee MD [facility] [address] [place] [address] documented in this encounter H&P Notes * [...] PM EST Office Visit Hematology/Oncology at [address] [phone] Lee Ann Jay MD [facility] [place] [address] Leti Anderson APRN [facility] [place] [address] documented as of this encounter Procedures Procedure Name Priority Date/Time Associated Diagnosis Comments SURGICAL PATHOLOGY REPORT Routine 04/12/2022 8:50 AM EST SPECIMEN TO PATHOLOGY Routine 04/12/2022 8:50 AM EST SPECIMEN TO PATHOLOGY Routine 04/12/2022 8:50 AM EST SPECIMEN TO PATHOLOGY Routine 04/12/2022 8:50 AM EST SPECIMEN TO PATHOLOGY Routine 04/12/2022 8:50 AM EST Colonoscopy, Remv Lesn, Snare ([id number]) 04/12/2022 7:55 AM EST screening Colonoscopy, Biopsy ([id number]) 04/12/2022 7:55 AM EST screening COLONOSCOPY Routine 04/12/2022 7:40 AM EST documented in this encounter Results * Surgical Pathology Report (04/12/2022 8:50 AM EST) Final Diagnosis [id number] ? Location: 4T; EA07; A The signing [...] Tuyet Verified: ??04/20/2022 22:35 ??Pathologist Performed at: ??-[facility] Dept. of Pathology, [place] [address] [employer]ductor Packages Platemaker: Dyllan Vazquez MD, FCAP, ??CLIA Certificate: [id number] SPECIMEN(S) SUBMITTED A - Cecal polyp, re-excision [...] labeled D1. ??sns 04/20/2022 10:35 PM EST [facility] GI Biopsy 04/12/2022 8:50 AM EST 04/12/2022 8:50 AM EST GI Biopsy 04/12/2022 8:50 AM EST 04/12/2022 8:50 AM EST GI Biopsy 04/12/2022 8:50 AM EST 04/12/2022 8:50 AM EST GI Biopsy 04/12/2022 8:50 AM EST 04/12/2022 8:50 AM EST L Inder Oliverso MD PATHOLOGY/CYTOLOGY O RDERAARMANDO [facility] [address] [facility] [place] [address] * Specimen to Pathology (04/12/2022 8:50 AM EST) AP Specimen 04/12/2022 8:50 AM EST 04/12/2022 8:50 AM EST Narrative [facility] - 04/12/2022 8:50 AM EST Specimen requisition ordered. ??Separate Pathology report to follow L Inder Oliveros MD PATHOLOGY/CYTOLOGY O OMI Performing Organization Address [facility] [place] [address] * Specimen to Pathology (04/12/2022 8:50 AM EST) AP Specimen 04/12/2022 8:50 AM EST 04/12/2022 8:50 AM EST Narrative [facility] - 04/12/2022 8:50 AM EST Specimen requisition ordered. ??Separate Pathology report to follow L Inder Oliveros MD PATHOLOGY/CYTOLOGY O OMI Performing Organization Address [facility] [place] [address] * Specimen to Pathology (04/12/2022 8:50 AM EST) AP Specimen 04/12/2022 8:50 AM EST 04/12/2022 8:50 AM EST Narrative [facility] - 04/12/2022 8:50 AM EST Specimen requisition ordered. ??Separate Pathology report to follow L Inder Oliveros MD PATHOLOGY/CYTOLOGY O OMI Performing Organization Address [facility] Co de Phone Number [facility] [place] [address] * Specimen to Pathology (04/12/2022 8:50 AM EST) AP Specimen 04/12/2022 8:50 AM EST 04/12/2022 8:50 AM EST Narrative [facility] - 04/12/2022 8:50 AM EST Specimen requisition ordered. ??Separate Pathology report to follow L Inder Oliveros MD PATHOLOGY/CYTOLOGY O OMI Performing Organization Address [facility] [place] [address] * COLONOSCOPY (04/12/2022 7:40 AM EST) COLONOSCOPY [facility] Endoscopy ___ Procedure Date: 04/12/2022 7:40 AM ? Patient Name: Leti Parry ? Date of : 1950 ? Age: 71 ? Order #: [id number] ? Instrument Name: [id number] ? ___ Procedure: ? Colonoscopy Indications: ? Disease activity assessment of ? left-sided chronic ulcerative ? colitis Patient Profile: ? This is a 71 year old female. This ? patient has left-sided ulcerative ? colitis, is taking no medication ? therapy for this disease and is ? asymptomatic. Providers: ? L. Inder Oliveros MD, Sherin Lawrence, ? Roman Spence, Environmental Programs Manager Referring MD: ?Julia Chatterjee MD Medicines: [...] preparation was evaluated ? using the BBPS ([place] Bowel ? Preparation Scale) with scores of: [...] RN) documented in this encounter Care Teams Dressing Machine Operator Relationship Specialty Start Date End Date Julia Chatterjee MD [facility] [address] [place] [address] PCP - General 01/31/10 documented as of this encounter
--- OUTSIDE RECORDS SUMMARY | 2023-10-24 02:33 | XMS_ITS | Encounter Summary ---
Author Organization [facility] [place] [address] Care Team Providers Care Felting Machine Operator Name Role Phone Julia Chatterjee MD Primary Care Provider [phone] Reason for Referral * Consultation (Routine) - Closed Specialty Diagnoses / Procedures Referred By Kimani t Referred To Contact Gastroenterology Diagnoses Encounter for screening colonoscopy Julia Chatterjee MD [address] [place] [address] [facility] Endoscopy [address] [place] [address] Referral ID Status Reason Start Date Expiration Date V isits Requested Visits Authorized [id number] Closed Consult, Test & Treat PCP Updated and/or Approved 01/12/2022 01/12/2023 1 1 Encounter Details Date Type Department Care Team (Latest Contact Info) Description 01/12/2022 Transcribe Orders eDH Incoming Referrals [phone] Julia Chatterjee MD [address] [place] [address] Encounter for screening colonoscopy Social [...] PM EST Office Visit Hematology/Oncology at [address] [address] Lee Ann Jay MD [facility] DR [place] [address] Leti Anderson APRN [facility] [place] [address] Scheduled Referrals Name Type Priority Associated Diagnoses Order Schedule Referral to Gastroenterology Outpatient Referral Routine Encounter for screening colonoscopy Ordered: 01/12/2022 documented as of this encounter Visit Diagnoses Diagnosis Encounter for screening colonoscopy Special screening for malignant neoplasms, colon documented in this encounter Care Teams Felting Machine Operator Relationship Specialty Start Date End Date Julia Chatterjee MD [facility] [address] [place] [address] PCP - General 01/31/10 documented as of this encounter
--- OUTSIDE RECORDS SUMMARY | 2023-10-24 02:33 | XMS_ITS | Encounter Summary ---
[place] [address] Care Team Providers Care Assistant Sales Manager Name Role Phone Julia Chatterjee MD Primary Care Provider [phone] Reason for Visit * Reason Onset Date Comments Reminder Appointment 06/07/2020 Encounter Details Date Type Department Care Team (Late Contact Info) Description 06/07/2020 Telephone [place] [phone] Christy Lopez CCMA Reminder Appointment Social History [...] 1:00 PM EST Office Visit Hematology/Oncology at [address] [phone] Lee Ann Jay MD [facility] DR HEMATOLOGY [place] [address] Leti Anderson APRN [facility] HEMATOLOGY [place] [address] documented as of this encounter Visit Diagnoses Not on filedocumented in this encounter Care Teams Assistant Sales Manager Relationship Specialty Start Date End Date Julia Chatterjee MD [facility] KINA FELIZ [facility] [address] [place] [address] PCP - General 01/31/10 documented as of this encounter
--- OUTSIDE RECORDS SUMMARY | 2023-10-24 02:33 | XMS_ITS | Encounter Summary ---
[place] [address] Care Team Providers Care Rate Reviewer Name Role Phone Julia Chatterjee MD Primary Care Provider [phone] Reason for Visit * Reason Onset Date Comments Reminder Appointment 09/19/2020 Encounter Details Date Type Department Care Team (Late Contact Info) Description 09/19/2020 [place] [phone] Christy Loepz CCMA Reminder Appointment Social History Tobacco Use [...] PM EST Office Visit Hematology/Oncology at [address] [address] Lee Ann Jay MD [facility] DR [place] [address] Leti Anderson APRN [facility] [place] [address] documented as of this encounter Visit Diagnoses Not on filedocumented in this encounter Care Teams Rate Reviewer Relationship Specialty Start Date End Date Julia Chatterjee MD [facility] KINA FELIZ [facility] 1 [place] [address] PCP - General 01/31/10 documented as of this encounter
--- OUTSIDE RECORDS SUMMARY | 2023-10-24 02:33 | XMS_ITS | Encounter Summary ---
Author Organization [facility] [place] [address] Care Team Providers Care Sales Representative Publications Name Role Phone Julia Chatterjee MD Primary Care Provider [phone] Reason for Visit * Reason Comments Injections zarxio Encounter Details Date Type Department Care Team (Late st Contact Info) Description 04/11/2022 12:30 PM EST Infusion Hematology Oncology at [address] [address] Large granular lymphocytic leukemia Social [...] PM EST Office Visit Hematology/Oncology at [address] [phone] Lee Ann Jay MD [facility] DR HEMATOLOGY [place] [address] Leti Anderson APRN [facility] HEMATOLOGY [place] [address] documented as of this encounter Visit Diagnoses [...] Quadrant documented in this encounter Care Teams Sales Representative Publications Relationship Specialty Start Date End Date Julia Chatterjee MD [address] [place] [address] PCP - General 01/31/10 documented as of this encounter
--- OUTSIDE RECORDS SUMMARY | 2023-10-24 02:33 | XMS_ITS | Encounter Summary ---
Author Organization [facility] [place] [address] Care Team Providers Care Plsql Developer Name Role Phone Julia Chatterjee MD Primary Care Provider [phone] Encounter Details Date Type Department Care Team (Latest Contact Info) Description 06/23/2021 10:35 AM EDT Laboratory Appointment Lab [address] [place] [phone] H/O upper respiratory infection; Leukopenia, unspecified type [...] PM EST Office Visit Hematology/Oncology at [address] [phone] Lee Ann Jay MD [facility] DR HEMATOLOGY [place] [address] Leti Anderson, OFFSET PRINTER [facility] HEMATOLOGY [place] [address] documented as of this encounter Procedures Procedure Name Priority Date/Time Associated Diagnosis Comments HC SARS-COV-2 SPIKE ANTIBODY Routine 06/23/2021 10:42 AM EDT H/O upper respiratory infection Leukopenia, unspecified type HC VENIPUNCTURE Routine 06/23/2021 10:42 AM EDT H/O upper respiratory infection Leukopenia, unspecified type documented in this encounter Results * COVID-19 Sigifredo Antibody (06/23/2021 10:42 AM EDT) SARS-CoV-2 Sigifredo Ab Not Detected [facility] Comment: This is a total antibody [...] be due to a past infection with mpd-WMYC-KgA-2 coronavirus strains, such as coronavirus HKU1, NL63, OC43, or 229E. This test was performed using the Elecsys Djep-JTTD-KvX-2 S total antibody assay on the Cheo Román e801 analyzer. This serology test is available following FDA Emergency Use Authorization, however it has not been reviewed by the FDA, nor is it FDA cleared or approved. The performance characteristics of this test were determined by the Department of Pathology and Laboratory Medicine at [facility]. The laboratory is certified under the [...] fact sheets at the following FDA website: https://www.fda.gov/medical-devices/hpgojompoxt-wnhbkfd-2436-bbxjh-76-wcptcrfku- use-a drmnorizkulvr-rcfvzcz-waoztbr/sfuxl-rtrjzlrerlq-bfee Blood 06/23/2021 10:4 2 AM EDT 06/23/2021 10:49 AM EDT Lee Ann Jay MD CHEMISTRY ORDERA BLES [facility] [place] [address] * (ABNORMAL) COVID-19 Nucleocapsid Antibody (06/23/2021 10:42 AM EDT) SARS-CoV-2 Nucleocap Ab Detected (A) Not Detected [facility] Comment: This test only detects antibodies [...] due to past or present infection with tqs-FDLZ-YiU-2 coronavirus strains, such as coronavirus HKU1, NL63, OC43, or 229E. This test was performed using the Elecsys Yxje-LBEB-UpC-2 total antibody test on the Cheo Román e801 analyzer. This serology test is available following FDA Emergency Use Authorization, however it has not been reviewed by the FDA, nor is it FDA cleared or approved. The performance characteristics of this test were determined by the Department of Pathology and Laboratory Medicine at [facility]. The laboratory is certified under the [...] fact sheets at the following FDA website: https://www.fda.gov/medical-devices/jlmuwexjiif-rjlurls-2425-wcnrd-96-pzpiqwxzf- use-a gkozkczuawwex-dilbiig-bxsutjn/ywhzm-swxuzaeovtw-nlgy Blood 06/23/2021 10:4 2 AM EDT 06/23/2021 10:49 AM EDT Lee Ann Jay MD [place] [address] documented in this encounter Visit Diagnoses Diagnosis H/O upper respiratory infection Personal history of unspecified disease of respiratory system Leukopenia, unspecified type documented in this encounter Care Teams Plsql Developer Relationship Specialty Start Date End Date Julia Chatterjee MD [address] [place] [address] PCP - General 01/31/10 documented as of this encounter
--- OUTSIDE RECORDS SUMMARY | 2023-10-24 02:33 | XMS_ITS | Encounter Summary ---
Author Organization [facility] Address [facility] [place] [address] Care Team Providers Care Entertainment Reporter Name Role Phone Julia Chatterjee MD Primary Care Provider [phone] Encounter Details Date Type Department Care Team (Late st Contact Info) Description 04/12/2021 11:30 AM EST Office Visit Hematology/Oncology at [address] [phone] Lee Ann Jay MD [facility] DR [place]ATOLOGY [place] [address] Radha Cooper, JAYLEN [facility] [address] [place] [address] Large granular lymphocytic leukemia Social History Tobacco [...] help much - Followed with a local plant production worker and used dietary supplements to maintain remission - Did well until August 2019 when she developed abdominal pain, fevers, loose stool. Went to [facility] andd CT showing inflamed [...] qhs after colonoscopy in October 2019 - [place] worse on [place] - fecal calpro 109 [...] flow ) are being pursued at the [place] [facility]. Should ??cytopenias persist , it may [...] better now with the help of her plant production worker. Her sx are GREAT on the naturopathic meds with minimal GI symptoms Feels well, good energy . No infections. She got a Peloton bike a few months ago. Loves the exercise and classes. Also does pilates and private classes. She is caring for her parents (92 and 88yo) Patrick Lazo [place]. [facility]. Her DINO was positive in [...] 09/02/2019 CT Guided Aspiration Liver 09/02/2019 [facility] RAD CAT SCAN ??? IR DRAIN CHECK/CHANGE/REMOVE 09/28/2019 IR Drain Check/Change/Remove 09/28/[address] [facility] INTERVENTIONL RAD ??? PRO BONE MARROW ASPIRATION W/BX THROUGH SAME INCISION/SITE Right 01/08/2017 ([facility]C MSURG) BONE MARROW ASP PERFORMED W/BX THRU BX INCISION (WRVU 0.16) performed by Lee Ann Jay MD at [facility] OSC ??? PRO BONE MARROW BX, NEEDLE/TROCAR Right 01/08/2017 ([facility] MSURG) BONE MARROW,BIOPSY (WRVU 1.37) performed by Lee Ann Jay MD at [facility] OSC ??? PRO COLONOSCOPY, BIOPSY 07/05/2011 COLONOSCOPY FLEXIBLE, WITH BX performed by AYAZ NELSON at [facility] ENDOSCOPY ??? PRO COLONOSCOPY, BIOPSY N/A 10/22/2019 COLONOSCOPY FLEXIBLE, WITH BX (WRVU 3.66) performed by Yola Oliveros MD at [facility] ENDOSCOPY ??? PRO COLONOSCOPY, REMV LESN, SNARE 07/05/2011 COLONOSCOPY, POLYPECTOMY, REMOVAL LESION BY SNARE performed by AYAZ NELSON at [facility] ENDOSCOPY ??? PRO SIGMOIDOSCOPY, DIAGNOSTIC N/A 09/02/2019 FLEXIBLE SIGMOIDOSCOPY performed by Ayaz Nelson MD at [facility] ENDOSCOPY Medications; Current Outpatient Medications on [...] low white counts. Social History: Lives in [facility]. . 1 son 38 years old- healthy. 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 Should ??cytopenias persist , it may [...] lymphocytes. She has been working with a plant production worker who started her on selenium and zinc and about a dozen other supplements. Counts are a bit higher so we will see. Camera Engineer has been helping her with bowel issues. These are better w/ diet adjustments. Diet changes have helped her UC and GI symptoms. Of note, she is on multiple naturopathic medications through her sales mgr - mostly to help w/ herGI tract. [...] [address] Han Castillo at [facility], an LGL specialist, he did [...] This note was written or modified using GeoEye voice recognition software. The final note was screened for mistakes. Please excuse any remaining errors. documented in this encounter Plan of Treatment Upcoming Encounters Date Type Department Care Team (Late st Contact Info) Description 04/15/2024 1:00 PM EST Office Visit Hematology/Oncology at [address] [phone] Lee Ann Jay MD [facility] [place] [address] Leti Anderson APRN [facility] [place] [address] documented as of this encounter Procedures Procedure [...] remission documented in this encounter Care Teams Entertainment Reporter Relationship Specialty Start Date End Date Julia Chatterjee MD [address] [place] [address] PCP - General 01/31/10 documented as of this encounter
--- OUTSIDE RECORDS SUMMARY | 2023-10-24 02:33 | XMS_ITS | Encounter Summary ---
Author Organization [facility] [place] [address] Care Team Providers Care Outside Plant Technician Name Role Phone Julia Chatterjee MD Primary Care Provider [phone] Encounter Details Date Type Department Care Team (Late Contact Info) Description 02/14/2022 [place] [phone] Joann Barajas Social History Tobacco Use Types [...] PM EST Office Visit Hematology/Oncology at [address] [phone] Lee Ann Jay MD [facility] DR HEMATOLOGY [place] [address] Leti Anderson, ROTARY BAR OPERATOR [facility] [place]AT[place] [address] documented as of this encounter Visit Diagnoses Not on filedocumented in this encounter Care Teams Outside Plant Technician Relationship Specialty Start Date End Date Julia Chatterjee MD [address] [place] [address] PCP - General 01/31/10 documented as of this encounter
--- OUTSIDE RECORDS SUMMARY | 2023-10-24 02:34 | XMS_ITS | Encounter Summary ---
Author Organization [facility] Address [facility] [place] [address] Care Team Providers Care Analytics Associate Name Role Phone Julia Chatterjee MD Primary Care Provider [phone] Encounter Details Date Type Department Care Team (Late Contact Info) Description 10/19/2019 [place] [phone] Juancarlos Marin Social History Tobacco Use Types [...] PM EST Office Visit Hematology/Oncology at [address] [phone] Lee Ann Jay MD [facility] HEMATOLOGY [place] [address] Leti Anderson, AIR EXPORT OPERATIONS AGENT [facility] HEMATOLOGY [place] [address] documented as of this encounter Visit Diagnoses Not on filedocumented in this encounter Care Teams Analytics Associate Relationship Specialty Start Date End Date Julia Chatterjee MD [address] [place] [address] PCP - General 01/31/10 documented as of this encounter
--- OUTSIDE RECORDS SUMMARY | 2023-10-24 02:34 | XMS_ITS | Encounter Summary ---
Author Organization [facility] Address [facility] [address] Care Team Providers Care Vision Specialist Name Role Phone Julia Chatterjee MD Primary Care Provider [phone] Reason for Visit * Reason Onset Date Comments Questions 09/23/2019 Encounter Details Date Type Department Care Team (Late st Contact Info) Description 09/23/2019 Telephone Hematology/Oncology at [address] [phone] Vicky Madrigal, RN Questions Social [...] draw CBC 09/24 morning (which goes to [facility]) and will review results and schedule Neupogen appt if needed. documented in this encounter Plan of Treatment Upcoming Encounters Date Type Department Care Team (Late st Contact Info) Description 04/15/2024 1:00 PM EST Office Visit Hematology/Oncology at [address] [phone] Lee Ann Jay MD [facility] [address] [place] [address] Leti Anderson APRN [facility] [place] [address] documented as of this encounter Visit Diagnoses Not on filedocumented in this encounter Care Teams Vision Specialist Relationship Specialty Start Date End Date Julia Chatterjee MD [address] [place] [address] PCP - General 01/31/10 documented as of this encounter
--- OUTSIDE RECORDS SUMMARY | 2023-10-24 02:34 | XMS_ITS | Encounter Summary ---
Author Organization [facility] Address [facility] [place] [address] Care Team Providers Care Belt Puncher Name Role Phone Julia Chatterjee MD Primary Care Provider [phone] Reason for Visit * Reason Onset Date Comments Abnormal Lab 09/21/2019 Encounter Details Date Type Department Care Team (Late st Contact Info) Description 09/21/2019 Telephone [place] [phone] Kelby Kaye MD [facility] [place] [address] Abnormal Lab Social History Tobacco Use Types [...] 3:57 PM EDT TELEPHONE ENCOUNTER Notified by label stitcher at [facility] that patient's lab draw significant for WBC 1.78 and ANC 0.29. Called patient at home - denied any fever, chills, or other systemic symptoms. Was visited by IV nurse today and PICC site c/d/i. Called patient's court of appeals judge, Dr. Santos, to discuss possible neupogen shot [...] 1:00 PM EST Office Visit Hematology/Oncology at [address] [phone] Lee Ann Jay MD [facility] DR HEMATOLOGY [place] [address] Leti Anderson APRN [facility] DR HEMATOLOGY [place] [address] documented as of this encounter Visit Diagnoses Not on filedocumented in this encounter Care Teams Belt Puncher Relationship Specialty Start Date End Date Julia Chatterjee MD [address] [place] [address] PCP - General 01/31/10 documented as of this encounter
--- OUTSIDE RECORDS SUMMARY | 2023-10-24 02:34 | XMS_ITS | Encounter Summary ---
Author Organization [facility] [place] [address] Care Team Providers Care Steam Conditioner Filling Name Role Phone Julia Chatterjee MD Primary Care Provider [phone] Encounter Details Date Type Department Care Team (Late st Contact Info) Description 09/15/2019 Telephone [place] [phone] Rosanne Recinos RN Social History Tobacco Use [...] PM EST Office Visit Hematology/Oncology at [address] [address] Lee Ann Jay MD [facility] [place] [address] Leti Anderson APRN [facility] [place] [address] documented as of this encounter Visit Diagnoses Not on filedocumented in this encounter Care Teams Steam Conditioner Filling Relationship Specialty Start Date End Date Julia Chatterjee MD [facility] [address] [place] [address] PCP - General 01/31/10 documented as of this encounter
--- OUTSIDE RECORDS SUMMARY | 2023-10-24 02:34 | XMS_ITS | Encounter Summary ---
Author Organization [facility] [place] [address] Care Team Providers Care Payroll Administrative Assistant Name Role Phone Julia Chatterjee MD Primary Care Provider [phone] Encounter Details Date Type Department Care Team (Late Contact Info) Description 09/21/2019 Orders Only [place] [address] Lee Ann Jay MD [facility] [place] [address] Social History Tobacco Use Types Packs/Day Years [...] PM EST Office Visit Hematology/Oncology at [address] [phone] Lee Ann Jay MD [facility] [place] [address] Leti Anderson, FURNACE LINER [facility] [place] [address] documented as of this encounter Visit Diagnoses Not on filedocumented in this encounter Care Teams Payroll Administrative Assistant Relationship Specialty Start Date End Date Julia Chatterjee MD [facility] [address] [facility] 1 [place] [address] PCP - General 01/31/10 documented as of this encounter
--- OUTSIDE RECORDS SUMMARY | 2023-10-24 02:34 | XMS_ITS | Encounter Summary ---
Author Organization [facility] Address [facility] [place] [address] Care Team Providers Care Platform Attendant Name Role Phone Julia Chatterjee MD Primary Care Provider [phone] Encounter Details Date Type Department Care Team (Late st Contact Info) Description 09/07/2019 Notes Only Infectious Disease at [facility] [place] [phone] Rosanne Recinos RN Social History Tobacco Use [...] to contact. Reviewed roles and responsibilities of MEDICAL SONOGRAPHER and infusion vendor. Contact information for ID team/clinic, MEDICAL SONOGRAPHER and infusion vendor given to pt. Discussed f/u appointments in ID 5C clinic, telephone and tele health. Pt verbalized understanding. All questions answered. MEDICAL SONOGRAPHER: [facility] Infusion vendor: [employer] IV [...] PM EST Office Visit Hematology/Oncology at [address] [phone] Lee Ann Jay MD [facility] [address] [place] [address] Leti Anderson, PHLEBOTOMIST LAB ASSISTANT [facility] DR [place] [address] documented as of this encounter Visit Diagnoses Not on filedocumented in this encounter Care Teams Platform Attendant Relationship Specialty Start Date End Date Julia Chatterjee MD [address] [place] [address] PCP - General 01/31/10 documented as of this encounter
--- OUTSIDE RECORDS SUMMARY | 2023-10-24 02:34 | XMS_ITS | Encounter Summary ---
Author Organization [facility] [place] [address] Care Team Providers Care Assurance Specialist Name Role Phone Julia Chatterjee MD Primary Care Provider [phone] Reason for Visit * Reason Comments Injections Zarxio Encounter Details Date Type Department Care Team (Late Contact Info) Description 09/22/2019 12:00 PM EDT Infusion Hematology Oncology at [address] [phone] Neutropenia, unspecified type Social History [...] PM EST Office Visit Hematology/Oncology at [address] [phone] Lee Ann Jay MD [facility] DR HEMATOLOGY [place] [address] Leti Anderson APRN [facility] HEMATOLOGY [place] [address] documented as of this encounter Visit Diagnoses [...] Tissue documented in this encounter Care Teams Assurance Specialist Relationship Specialty Start Date End Date Julia Chatterjee MD [facility] [address] [place] [address] PCP - General 01/31/10 documented as of this encounter
--- OUTSIDE RECORDS SUMMARY | 2023-10-24 02:34 | XMS_ITS | Encounter Summary ---
Author Organization [facility] [place] [address] Care Team Providers Care Metal Flooring Installer Name Role Phone Julia Chatterjee MD Primary Care Provider [phone] Reason for Visit * Reason Onset Date Comments Labs Only 09/29/2019 Encounter Details Date Type Department Care Team (Late st Contact Info) Description 09/29/2019 Telephone Hematology/Oncology at [address] [phone] Vicky Madrigal, RN Labs Only [...] PM EST Office Visit Hematology/Oncology at [address] [phone] Lee Ann Jay MD [facility] HEMATOLOGY [place] [address] Leti Anderson APRN [facility] HEMATOLOGY [place] [address] documented as of this encounter Procedures Procedure [...] filedocumented in this encounter Care Teams Metal Flooring Installer Relationship Specialty Start Date End Date Julia Chatterjee MD [facility] [address] [place] [address] PCP - General 01/31/10 documented as of this encounter
--- OUTSIDE RECORDS SUMMARY | 2023-10-24 02:34 | XMS_ITS | Encounter Summary ---
[place] [address] Care Team Providers Care Transition Social Worker Name Role Phone Julia Chatterjee MD Primary Care Provider [phone] Reason for Referral * Diagnostic Test (Routine) - Closed Specialty Diagnoses / Procedures Referred By Contac t Referred To Contact Radiology Diagnoses Hepatic abscess Procedures IR Drain Check/Change/Remove Barrett Malagon [facility] [place] [address] [facility] [place] [address] Referral ID Status Reason Start Date Expiration Date V isits Requested Visits Authorized [id number] Closed Specialty Service Requested 09/03/2019 03/04/2021 1 1 Reason for Visit * Diagnostic Test (Routine) - Closed Specialty Diagnoses / Procedures Referred By Contac t Referred To Contact Radiology Diagnoses Hepatic abscess Procedures IR Drain Check/Change/Remove Barrett Malagon [facility] [place] [address] [place] [address] Referral ID Status Reason Start Date Expiration Date V isits Requested Visits Authorized [id number] Closed Specialty Service Requested 09/03/2019 03/04/2021 1 1 Encounter Details Date Type Department Care Team (Latest Contact Info) Description 09/28/2019 8:00 AM EDT - 09/28/2019 11:59 PM EDT Hospital [place] [address] [place] [address] Hepatic abscess Discharge Disposition: Home Social History [...] Bennett RN - 09/28/2019 9:46 AM EDT [facility] Vascular and Interventional Radiology Discharge Instructions [...] is during regular office hours, please call [phone]. If it is after regular office hours, or on weekends or holidays, please call [phone] and ask to speak to the Shift Superintendent Caustic Cresylate catering operations manager for Interventional Radiology. You have received medication [...] : 1950 AGE: 68 y.o. Address: [address] [address] (home) Mobile: Telephone Information: Referring Provider: Barrett Malagon REASON FOR VISIT: Order Questions Answers Where will study be performed? [facility] Radiology [120] Reason for exam and clinical history: CT-guided drain placed in liver abscess on 09/01 Is the patient on anticoagulant / anitplatelet therapy ? No Allergies Allergen Reactions ??? Benzalkonium Chloride Pertinent PSH: Past Surgical History: Procedure Laterality Date ??? CT ASPIRATION LIVER 09/02/2019 CT Guided Aspiration Liver 09/02/2019 [facility] RAD CAT SCAN ??? PRO BONE MARROW ASPIRATION W/BX THROUGH SAME INCISION/SITE Right 01/08/2017 ([facility]) BONE MARROW ASP PERFORMED W/BX THRU BX INCISION (WRVU 0.16) performed by Lee Ann Jay MD at [facility] OSC ??? PRO BONE MARROW BX, NEEDLE/TROCAR Right 01/08/2017 ([facility]) BONE MARROW,BIOPSY (WRVU 1.37) performed by Lee Ann Jay MD at [facility] OSC ??? PRO COLONOSCOPY, BIOPSY 07/05/2011 COLONOSCOPY FLEXIBLE, WITH BX performed by MARY CASTRO at [facility] ENDOSCOPY ??? PRO COLONOSCOPY, REMV LESN, SNARE 07/05/2011 COLONOSCOPY, POLYPECTOMY, REMOVAL LESION BY SNARE performed by MARY CASTRO at [facility] ENDOSCOPY ??? PRO SIGMOIDOSCOPY, DIAGNOSTIC N/A 09/02/2019 FLEXIBLE SIGMOIDOSCOPY performed by Mary Castro MD at [facility] ENDOSCOPY Date/Procedure Meds given/comments 09/02/19 CT Liver [...] Questions Answers Where will study be performed? [facility] Radiology [120] Reason for exam and clinical [...] LIVER 09/02/2019 CT Guided Aspiration Liver 09/02/2019 [facility] RAD CAT SCAN ??? PRO BONE MARROW ASPIRATION W/BX THROUGH SAME INCISION/SITE Right 01/08/2017 ([facility]) BONE MARROW ASP PERFORMED W/BX THRU BX INCISION (WRVU 0.16) performed by Lee Ann Jay MD at [facility] OSC ??? PRO BONE MARROW BX, NEEDLE/TROCAR Right 01/08/2017 ([facility]) BONE MARROW,BIOPSY (WRVU 1.37) performed by Lee Ann Jay MD at [facility] OSC ??? PRO COLONOSCOPY, BIOPSY 07/05/2011 COLONOSCOPY FLEXIBLE, WITH BX performed by MARY CASTRO at [facility] ENDOSCOPY ??? PRO COLONOSCOPY, REMV LESN, SNARE 07/05/2011 COLONOSCOPY, POLYPECTOMY, REMOVAL LESION BY SNARE performed by MARY CASTRO at [facility] ENDOSCOPY ??? PRO SIGMOIDOSCOPY, DIAGNOSTIC N/A 09/02/2019 FLEXIBLE SIGMOIDOSCOPY performed by Mary Castro MD at [facility] ENDOSCOPY Medications: Current Outpatient Medications on File [...] file Gets together: Not on file Attends adventism service: Not on file Active member of [...] Questions Answers Where will study be performed? [facility] Radiology [120] Reason for exam and clinical [...] LIVER 09/02/2019 CT Guided Aspiration Liver 09/02/2019 [facility] RAD CAT SCAN ??? PRO BONE MARROW ASPIRATION W/BX THROUGH SAME INCISION/SITE Right 01/08/2017 ([facility] MSURG) BONE MARROW ASP PERFORMED W/BX THRU BX INCISION (WRVU 0.16) performed by Lee Ann Jay MD at [facility] OSC ??? PRO BONE MARROW BX, NEEDLE/TROCAR Right 01/08/2017 ([facility]) BONE MARROW,BIOPSY (WRVU 1.37) performed by Lee Ann Jay MD at [facility] OSC ??? PRO COLONOSCOPY, BIOPSY 07/05/2011 COLONOSCOPY FLEXIBLE, WITH BX performed by MARY CASTRO at [facility] ENDOSCOPY ??? PRO COLONOSCOPY, REMV LESN, SNARE 07/05/2011 COLONOSCOPY, POLYPECTOMY, REMOVAL LESION BY SNARE performed by MARY CASTRO at [facility] ENDOSCOPY ??? PRO SIGMOIDOSCOPY, DIAGNOSTIC N/A 09/02/2019 FLEXIBLE SIGMOIDOSCOPY performed by Mary Castro MD at [facility] ENDOSCOPY Medications: Current Outpatient Medications on File [...] file Gets together: Not on file Attends adventism service: Not on file Active member of [...] 1:00 PM EST Office Visit Hematology/Oncology at [address] [phone] Lee Ann Jay MD [facility] [place] [address] An Anderson APRN [facility] [place] [address] documented as of this encounter Procedures Procedure [...] mLs documented in this encounter Care Teams Transition Social Worker Relationship Specialty Start Date End Date Julia Chatterjee MD [address] [place] [address] PCP - General 01/31/10 documented as of this encounter
--- OUTSIDE RECORDS SUMMARY | 2023-10-24 02:34 | XMS_ITS | Encounter Summary ---
Author Organization [facility] [place] [address] Care Team Providers Care Supervisor Stripping Name Role Phone Julia Chatterjee MD Primary Care Provider [phone] Reason for Visit * Reason Comments Injections Zarxio Encounter Details Date Type Department Care Team (Late Contact Info) Description 09/25/2019 1:00 PM EDT Infusion Hematology Oncology at [address] [phone] Neutropenia, unspecified type Social History [...] Office Visit Hematology/Oncology at [address] [phone] Lee Ann Jay MD [facility] DR [place] [address] Leti Anderson APRN [facility] [place] [address] documented as of this encounter Visit Diagnoses [...] documented in this encounter Care Teams Supervisor Stripping Relationship Specialty Start Date End Date Julia Chatterjee MD [facility] [address] [place] [address] PCP - General 01/31/10 documented as of this encounter
--- OUTSIDE RECORDS SUMMARY | 2023-10-24 02:34 | XMS_ITS | Encounter Summary ---
Author Organization [facility] Address [facility] [place] [address] Care Team Providers Care Youth Manager Name Role Phone Julia Chatterjee MD Primary Care Provider [phone] Encounter Details Date Type Department Care Team (Late st Contact Info) Description 10/16/2019 [place] [address] Bertha Nuñez RN Social History [...] needs to call the GI on doctor investigations director to discuss. If any symptoms which pt [...] PM EST Office Visit Hematology/Oncology at [address] [phone] Lee Ann Jay MD [facility] [place] [address] Leti Anderson APRN [facility] [place] [address] documented as of this encounter Visit Diagnoses Not on filedocumented in this encounter Care Teams Youth Manager Relationship Specialty Start Date End Date Julia Chatterjee MD [facility] [address] [place] [address] PCP - General 01/31/10 documented as of this encounter
--- OUTSIDE RECORDS SUMMARY | 2023-10-24 02:34 | XMS_ITS | Encounter Summary ---
Author Organization [facility] [place] [address] Care Team Providers Care Transportation Agent Name Role Phone Julia Chatterjee MD Primary Care Provider [phone] Encounter Details Date Type Department Care Team (Late st Contact Info) Description 09/08/2019 Notes Only Infectious Disease at [facility] [place] [phone] Rosanne Recinos RN Social History Tobacco Use [...] EDT Infectious Disease OPAT Program Faxed to [facility] ([facility]) on 09/08/19 at 1354 Fax confirmation on 09/08/19 at 1409 Spoke with Mavis at [facility]. Documents faxed: Information on care & maintenance and removal of Secur A Cath securement device including company contact and on-line tutorial information. ASHER Abad, RN, ACM-RN OPAT Program documented in this encounter Plan of Treatment Upcoming Encounters Date Type Department Care Team (Late st Contact Info) Description 04/15/2024 1:00 PM EST Office Visit Hematology/Oncology at [address] [phone] Lee Ann Jay MD [facility] DR [place] [address] Leti Anderson APRN [facility] [place] [address] documented as of this encounter Visit Diagnoses Not on filedocumented in this encounter Care Teams Transportation Agent Relationship Specialty Start Date End Date Julia Chatterjee MD [facility] [address] [place] [address] PCP - General 01/31/10 documented as of this encounter
--- OUTSIDE RECORDS SUMMARY | 2023-10-24 02:34 | XMS_ITS | Encounter Summary ---
Author Organization [facility] Address [facility] [place] [address] Care Team Providers Care Inspector Floor Name Role Phone Julia Chatterjee MD Primary Care Provider [phone] Encounter Details Date Type Department Care Team (Late Contact Info) Description 10/05/2019 Orders Only Hematology/Oncology at [address] [phone] Lee Ann Jay MD [facility] HEMATOLOGY [place] [address] Neutropenia, unspecified type Social History Tobacco Use [...] PM EST Office Visit Hematology/Oncology at [address] [phone] Lee Ann Jay MD [facility] HEMATOLOGY [place] [address] Leti Anderson, ADMINISTRATION CLERK [facility] HEMATOLOGY [place] [address] documented as of this encounter Visit Diagnoses Diagnosis Neutropenia, unspecified type documented in this encounter Care Teams Inspector Floor Relationship Specialty Start Date End Date Julia Chatterjee MD [address] [facility] [[email or web address] 1 [place] [address] PCP - General 01/31/10 documented as of this encounter
--- OUTSIDE RECORDS SUMMARY | 2023-10-24 02:34 | XMS_ITS | Encounter Summary ---
Author Organization [facility] [place] [address] Care Team Providers Care Group Rooms Coordinator Name Role Phone Julia Chatterjee MD Primary Care Provider [phone] Encounter Details Date Type Department Care Team (Late st Contact Info) Description 09/21/2019 Notes [place] [address] Mylene Bailey, RN Social History Tobacco Use [...] Discharge IV Antibiotic Management To: Briana King [phone] Specialty: ID Diagnosis: Liver Abscess s/p drain [...] Infectious Disease Attending: Briana King DO 14:50: Swimming Pool Maintenance received a call from Mgaalis riddle at [facility] with critical lab results from today: WBC: 1.78, ANC: 0.29. In Basket message with high priority sent to Dr. Briana King (away), Dr. Lee Ann Jay. B Attending Dr. Ioana Yung also notified via page. Mylene Bailey, RN, OPAT Program Pager: [phone] documented in this encounter Plan of Treatment Upcoming Encounters Date Type Department Care Team (Late st Contact Info) Description 04/15/2024 1:00 PM EST Office Visit Hematology/Oncology at [address] [address] Lee Ann Jay MD [facility] DR HEMATOLOGY [place] [address] Leti Anderson APRN [facility] HEMATOLOGY [place] [address] documented as of this encounter Visit Diagnoses Not on filedocumented in this encounter Care Teams Group Rooms Coordinator Relationship Specialty Start Date End Date Julia Chatterjee MD [facility] [address] [place] [address] PCP - General 01/31/10 documented as of this encounter
--- OUTSIDE RECORDS SUMMARY | 2023-10-24 02:34 | XMS_ITS | Encounter Summary ---
Author Organization [facility] [place] [address] Care Team Providers Care Chemist Enzymes Name Role Phone Julia Chatterjee MD Primary Care Provider [phone] Encounter Details Date Type Department Care Team (Late st Contact Info) Description 09/07/2019 Telephone [place] [address] Jessica Johnson Social History Tobacco Use Types [...] 1:00 PM EST Office Visit Hematology/Oncology at [address] [phone] Lee Ann Jay MD [facility] [place] [address] Leti Anderson APRN [facility] [place] [address] documented as of this encounter Visit Diagnoses Not on filedocumented in this encounter Care Teams Chemist Enzymes Relationship Specialty Start Date End Date Julia Chatterjee MD [facility] [address] [facility] 1 [place] [address] PCP - General 01/31/10 documented as of this encounter
--- OUTSIDE RECORDS SUMMARY | 2023-10-24 02:34 | XMS_ITS | Encounter Summary ---
Author Organization [facility] Address [facility] [place] [address] Care Team Providers Care Jewel Gauger Name Role Phone Julia Chatterjee MD Primary Care Provider [phone] Reason for Visit * Reason Onset Date Comments Medication Refill 10/20/2019 Encounter Details Date Type Department Care Team ([facility] Contact Info) Description 10/20/2019 Refill [place] [address] Yola Oliveros MD [facility] [place] [address] Social History Tobacco Use Types Packs/Day Years [...] PM EST Office Visit Hematology/Oncology at [address] [phone] Lee Ann Jay MD [facility] DR HEMATOLOGY [place] [address] Leti Anderson, ASSEMBLER [employer] [facility] [place] [address] documented as of this encounter Visit Diagnoses Not on filedocumented in this encounter Care Teams Jewel Gauger Relationship Specialty Start Date End Date Julia Chatterjee MD [address] [facility] 1 [place] [address] PCP - General 01/31/10 documented as of this encounter
--- OUTSIDE RECORDS SUMMARY | 2023-10-24 02:34 | XMS_ITS | Encounter Summary ---
Author Organization [facility]ly [facility] Address [facility] [place] [address] Care Team Providers Care Manager Room Name Role Phone Julia Chatterjee MD Primary Care Provider [phone] Encounter Details Date Type Department Care Team (Late st Contact Info) Description 09/09/2019 [place] [address] Jessica Johnson Social History Tobacco Use Types [...] - 09/09/2019 8:02 AM EDT Leti Parry [id number] Diagnosis/Indication: [place] 1. Have you ever had a/an Colonoscopy [...] to patient: You must have a responsible libertarian who [...] PM EST Office Visit Hematology/Oncology at [address] [phone] Lee Ann Jay MD [facility] [address] [place] [address] Leti Anderson APRN [facility] [place] [address] documented as of this encounter Visit Diagnoses Not on filedocumented in this encounter Care Teams Manager Room Relationship Specialty Start Date End Date Julia Chatterjee MD [address] [place], [place] [address] PCP - General 01/31/10 documented as of this encounter
--- OUTSIDE RECORDS SUMMARY | 2023-10-24 02:34 | XMS_ITS | Encounter Summary ---
Author Organization [facility] Address [facility] [place] [address] Care Team Providers Care Tax Audit Manager Name Role Phone Julia Chatterjee MD Primary Care Provider [phone] Encounter Details Date Type Department Care Team (Late st Contact Info) Description 10/14/2019 9:30 AM EDT Office Visit Hematology/Oncology at [address] [phone] Lee Ann Jay MD [facility] [address] [place] [address] Large granular lymphocytic leukemia Social History Tobacco [...] Ulcerative colitis Diagnosed around 2011. Worked with robot programmer with resolution of symptoms food based supplements [...] flow ) are being pursued at the [place] [facility]. Should ??cytopenias persist , it may [...] she took IV ATB per ID at [facility]. We supported her with GCSF as well. [...] LIVER 09/02/2019 CT Guided Aspiration Liver 09/02/2019 [facility] RAD CAT SCAN ??? IR DRAIN CHECK/CHANGE/REMOVE 09/28/2019 IR Drain Check/Change/Remove 09/28/2019 Cliff Langston MD [facility] INTERVENTIONL RAD ??? PRO BONE MARROW ASPIRATION W/BX THROUGH SAME INCISION/SITE Right 01/08/2017 ([facility]G) BONE MARROW ASP PERFORMED W/BX THRU BX INCISION (WRVU 0.16) performed by Lee Ann Jay MD at [facility] OSC ??? PRO BONE MARROW BX, NEEDLE/TROCAR Right 01/08/2017 ([facility]) BONE MARROW,BIOPSY (WRVU 1.37) performed by Lee Ann Jay MD at [facility] OSC ??? PRO COLONOSCOPY, BIOPSY 07/05/2011 COLONOSCOPY FLEXIBLE, WITH BX performed by AYAZ NELSON at [facility] ENDOSCOPY ??? PRO COLONOSCOPY, REMV LESN, SNARE 07/05/2011 COLONOSCOPY, POLYPECTOMY, REMOVAL LESION BY SNARE performed by AYAZ NELSON at [facility] ENDOSCOPY ??? 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 Should ??cytopenias persist , it [...] gene rearrangement detected. Radiology: US at [facility] 11/2016. Liver 14.5 cm. Spleen 8cm. Assessment and Recommendations: 68 y.o. Healthy female who has been referred to us for leukopenia. She has had leukopenia since 2006 with normal hemoglobin and platelet. She has no symptoms- no increased frequency of infections. 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 She has been working with a robot programmer who started her on selenium and zinc and about a dozen other supplements. Counts are a bit higher so we will see. Tiedown Operator has been helping her with bowel issues. These are better w/ diet adjustments. Diet changes have helped her UC and GI symptoms. Of note, she is on multiple naturopathic medications through her tip length checker - mostly to help w/ herGI tract. [...] 480mcg the day before 11/05/19 colonoscopy at [facility] ?? rtc in 6 mos with cbc, cmp I discussed all of the above with the patient and all of her questions were answered. Support and counseling given as appropriate. This note was written or modified using [employer] voice recognition software. The final note was screened for mistakes. Please excuse any remaining errors. 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
--- OUTSIDE RECORDS SUMMARY | 2023-10-24 02:34 | XMS_ITS | Encounter Summary ---
Author Organization [facility] Address [facility] [place] [address] Care Team Providers Care Supervisor Phosphoric Acid Name Role Phone Julia Chatterjee MD Primary Care Provider [phone] Encounter Details Date Type Department Care Team (Latest Contact Info) Description 10/22/2019 10:27 AM EDT - 10/22/2019 1:24 PM EDT Hospital En[place] [address] Yola Oliveros MD [facility] [place] [address] Discharge Disposition: Home Social History Tobacco Use [...] sent through Care Everywhere. * Colonoscopy: Post-op (Macedonian) documented in this encounter Medications at Time [...] PM EST Office Visit Hematology/Oncology at [address] [phone] Lee Ann Jay MD [facility] DR HEMATOLOGY [place] [address] Leti Anderson APRN [facility] HEMATOLOGY [place] [address] documented as of this encounter Procedures Procedure Name Priority Date/Time Associated Diagnosis Comments SPECIMEN TO PATHOLOGY Routine 10/22/2019 11:52 AM EDT SPECIMEN TO PATHOLOGY Routine 10/22/2019 11:52 AM EDT SPECIMEN TO PATHOLOGY Routine 10/22/2019 11:52 AM EDT SPECIMEN TO PATHOLOGY Routine 10/22/2019 11:52 AM EDT SPECIMEN TO PATHOLOGY Routine 10/22/2019 11:52 AM EDT SURGICAL PATHOLOGY REPORT Routine 10/22/2019 11:15 AM EDT Colonoscopy, Biopsy ([id number]) 10/22/2019 11:01 AM EDT Ulcerative rectosigmoiditis with abscess Colonoscopy, IVCS, in 1-2 weeks for L sided colitis c/b hepatic abscess. Evaluate response to antibiotics and extent of colonic involvement COLONOSCOPY Routine 10/22/2019 9:49 AM EDT documented in this encounter Results * Specimen to Pathology (10/22/2019 11:52 AM EDT) AP Specimen 10/22/2019 11:5 2 AM EDT 10/22/2019 11:[address] [facility] - 10/22/2019 11:52 AM EDT Specimen requisition ordered. ??Separate Pathology report to follow L Inder Oliveros MD PATHOLOGY/CYTOLOGY O RDERABLES [facility] [place] [address] * Specimen to Pathology (10/22/2019 11:52 AM EDT) AP Specimen 10/22/2019 11:5 2 AM EDT 10/22/2019 11:[address] [facility] - 10/22/2019 11:52 AM EDT Specimen requisition ordered. ??Separate Pathology report to follow L Inder Oliveros MD PATHOLOGY/CYTOLOGY O OMI Performing Organization Address [facility] [place] [address] * Specimen to Pathology (10/22/2019 11:52 AM EDT) AP Specimen 10/22/2019 11:5 2 AM EDT 10/22/2019 11:[address] [facility] - 10/22/2019 11:52 AM EDT Specimen requisition ordered. ??Separate Pathology report to follow L Inder Oliveros MD PATHOLOGY/CYTOLOGY O OMI Performing Organization Address [facility] [place] [address] * Specimen to Pathology (10/22/2019 11:52 AM EDT) AP Specimen 10/22/2019 11:5 2 AM EDT 10/22/2019 11:[address] [facility] - 10/22/2019 11:52 AM EDT Specimen requisition ordered. ??Separate Pathology report to follow L Inder Oliveros MD PATHOLOGY/CYTOLOGY O OMI Performing Organization Address [facility] [place] [address] * Specimen to Pathology (10/22/2019 11:52 AM EDT) AP Specimen 10/22/2019 11:5 2 AM EDT 10/22/2019 11:[address] [facility] - 10/22/2019 11:52 AM EDT Specimen requisition ordered. ??Separate Pathology report to follow L Inder Oliveros MD PATHOLOGY/CYTOLOGY O RDERAARMANDO [facility] [place] [address] * Surgical Pathology Report (10/22/2019 11:15 AM EDT) Final Diagnosis [id number] ? Location: 4T; EA10; A The signing [...] PhD, Christal Verified: ??10/30/2019 ?Pathologist Performed at: ??-[facility] Dept. of Pathology, [place], [place] ADDITIONAL STUDIES E - ??multiple levels [...] Six, averaging 0.3 cm. Tissue Description: Soft, ofrd-pink tissues. Sections/Proces sing: Submitted en toto ??in [...] labeled E1. ??ajw 10/30/2019 1:[address] [facility] GI Biopsy 10/22/2019 11:1 5 [...] L Inder Oliveros MD PATHOLOGY/CYTOLOGY Eneida BRAGA [facility] [place] [address] * COLONOSCOPY (10/22/2019 9:49 AM EDT) COLONOSCOPY [facility] Endoscopy Procedure Date: 10/22/2019 9:49 AM ? Patient Name: Leti Parry ? Date of : 1950 ? Age: 68 ? Order #: [id number] ? Instrument Name: [id number] ? Procedure: ? Colonoscopy Indications: ? Follow-up [...] preparation was evaluated using ? the BBPS (Rochelle Bowel Preparation ? Scale) with scores of: [...] Procedure Code(s): ?? --- Professional --- ? 99289, Colonoscopy, flexible; with ? biopsy, single or multiple CPT copyright 2019 [employer]. All rights reserved. The codes documented in this report are preliminary and upon medical biller/coder review may be revised to meet current [...] RN) documented in this encounter Care Teams Supervisor Phosphoric Acid Relationship Specialty Start Date End Date Julia Chatterjee MD [facility] KINA [address] [place] [address] PCP - General 01/31/10 documented as of this encounter
--- OUTSIDE RECORDS SUMMARY | 2023-10-24 02:34 | XMS_ITS | Encounter Summary ---
Author Organization [facility] Address [facility] [place] [address] Care Team Providers Care Warehouse Receiving Supervisor Name Role Phone Julia Chatterjee MD Primary Care Provider [phone] Reason for Visit * Reason Comments Injections GCSF Encounter Details Date Type Department Care Team (Late st Contact Info) Description 10/21/2019 10:00 AM EDT Infusion Hematology Oncology at [address] [phone] Large granular lymphocytic leukemia Social [...] PM EST Office Visit Hematology/Oncology at [address] [phone] Lee Ann Jay MD [facility] DR [place] [address] Leti Anderson APRN [facility] DR [place] [address] documented as of this encounter Visit Diagnoses [...] Quadrant documented in this encounter Care Teams Warehouse Receiving Supervisor Relationship Specialty Start Date End Date Julia Chatterjee MD [address] [place] [address] PCP - General 01/31/10 documented as of this encounter
--- OUTSIDE RECORDS SUMMARY | 2023-10-24 02:34 | XMS_ITS | Encounter Summary ---
Author Organization [facility] [place] [address] Care Team Providers Care Ski Patrol Officer Name Role Phone Julia Chatterjee MD Primary Care Provider [phone] Encounter Details Date Type Department Care Team (Late Contact Info) Description 09/21/2019 Orders Only Hematology [place] [address] Lee Ann Jay MD [facility] [place] [address] Social History Tobacco Use Types Packs/Day Years [...] 1:00 PM EST Office Visit Hematology/Oncology at [address] [phone] Lee Ann Jay MD [facility] [place] [address] Leti Anderson, INDUSTRIAL SERVICES WORKER [facility] [place] [address] documented as of this encounter Visit Diagnoses Not on filedocumented in this encounter Care Teams Ski Patrol Officer Relationship Specialty Start Date End Date Julia Chatterjee MD [facility] [address] [facility] [place] [address] PCP - General 01/31/10 documented as of this encounter
--- OUTSIDE RECORDS SUMMARY | 2023-10-24 02:34 | XMS_ITS | Encounter Summary ---
Author Organization [facility] Xavi joanayah [place] [id number] Care Team Providers Care Homebound Teacher Name Role Phone Julia Chatterjee MD Primary Care Provider [phone] Reason for Visit * Consultation (Routine) - Closed Specialty Diagnoses / Procedures Referred By Contact Referred To Contact Infectious Diseases Diagnoses Hepatic abscess Bacteroides fragilis Infection due to Peptostreptococcus species Actinomyces infection Briana King [facility] [place] [address] [place] [facility] [place] [address] Referral ID Status Reason Start Date Expiration Date V isits Requested Visits Authorized [id number] Closed Assume Subset of Care 09/08/2019 09/07/2020 1 1 Encounter Details Date Type Department Care Team (Late st Contact Info) Description 09/28/2019 11:00 AM EDT Office Visit [place] [address] Brandon Eddy MD [facility] INFECTIOUS DISEASE [place] 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 coli and Streptococcus [...] colitis flare. She was then readmitted to [facility] from 09/01/19 to 09/07/19 with a 3.5cm [...] PM EST Office Visit Hematology/Oncology at [address] [phone] Lee Ann Jay MD [facility] [address] [place] [address] Leti Anderson APRN [facility] [place] [address] documented as of this encounter Visit Diagnoses Diagnosis jail current use of antibiotics Encounter for long-term (current) use of antibiotics Medication management Encounter for long-term (current) use of other medications Liver abscess Abscess of liver Bacteremia Polymicrobial bacterial infection Infection due to other specified bacteria in conditions classified elsewhere and of unspecified site documented in this encounter Care Teams Homebound Teacher Relationship Specialty Start Date End Date Julia Chatterjee MD [facility] [address] [place] [address] PCP - General 01/31/10 documented as of this encounter
--- OUTSIDE RECORDS SUMMARY | 2023-10-24 02:34 | XMS_ITS | Encounter Summary ---
Author Organization [facility] [place] [address] Care Team Providers Care Phd Internship Name Role Phone Julia Chatterjee MD Primary Care Provider [phone] Encounter Details Date Type Department Care Team (Late Contact Info) Description 10/09/2019 Telephone Hematology Oncology at [address] [phone] Billie Diaz RN Social History [...] PM EST Office Visit Hematology/Oncology at [address] [phone] Lee Ann Jay MD [facility] HEMATOLOGY [place] [address] Leti Anderson, LABORER POWERHOUSE [facility] HEMATOLOGY [place] [address] documented as of this encounter Visit Diagnoses Not on filedocumented in this encounter Care Teams Phd Internship Relationship Specialty Start Date End Date Juila Chatterjee MD [address] [place] [address] PCP - General 01/31/10 documented as of this encounter
--- OUTSIDE RECORDS SUMMARY | 2023-10-24 02:34 | XMS_ITS | Encounter Summary ---
Author Organization [facility] [place] [address] Care Team Providers Care Barrel Burner Name Role Phone Julia Chatterjee MD Primary Care Provider [phone] Reason for Referral * Consultation (Routine) - Closed Specialty Diagnoses / Procedures Referred By Contact Referred To Contact Infectious Diseases Diagnoses Hepatic abscess Bacteroides fragilis Infection due to Peptostreptococcus species Actinomyces infection Briana King [facility] [place] [address] Briana King [facility] [place] [address] Referral ID Status Reason Start Date Expiration Date V isits Requested Visits Authorized [id number] Closed Assume Subset of Care 09/08/2019 09/07/2020 1 1 Encounter Details Date Type Department Care Team (Latest Contact Info) Description 09/08/2019 Orders Only Infectious [place] [address] Briana King [facility] [place] [address] Hepatic abscess; Bacteroides fragilis; Infection due to [...] PM EST Office Visit Hematology/Oncology at [address] [phone] Lee Ann Jay MD [facility] [address] [place] [address] Leti Anderson APRN [facility] [place] [address] Scheduled Referrals Name Type Priority Associated Diagnoses [...] site documented in this encounter Care Teams Barrel Burner Relationship Specialty Start Date End Date Julia Chatterjee MD [address] [place] [address] PCP - General 01/31/10 documented as of this encounter
--- OUTSIDE RECORDS SUMMARY | 2023-10-24 02:34 | XMS_ITS | Encounter Summary ---
Author Organization [facility] Address [facility] [place] [address] Care Team Providers Care Administrative Office Specialist Name Role Phone Julia Chatterjee MD Primary Care Provider [phone] Encounter Details Date Type Department Care Team (Late Contact Info) Description 09/21/2019 Telephone Hematology [place] [phone] Lee Ann Jay MD [facility] [address] [place] [address] Social History Tobacco Use Types Packs/Day Years [...] PM EST Office Visit Hematology/Oncology at [address] [phone] Lee Ann Jay MD [facility] [place] [address] Leti Anderson APRN [facility] [place] [address] documented as of this encounter Visit Diagnoses Not on filedocumented in this encounter Care Teams Administrative Office Specialist Relationship Specialty Start Date End Date Julia Chatterjee MD [facility] [address] [place] [address] PCP - General 01/31/10 documented as of this encounter
--- OUTSIDE RECORDS SUMMARY | 2023-10-24 02:34 | XMS_ITS | Encounter Summary ---
Author Organization [facility] Address [facility] [place] [address] Care Team Providers Care Coating Machine Helper Name Role Phone Julia Chatterjee MD Primary Care Provider [phone] Reason for Visit * Reason Onset Date Comments Labs Only 09/25/2019 lab results and zarxio inj Encounter Details Date Type Department Care Team (Late st Contact Info) Description 09/25/2019 Telephone Hematology Oncology at [address] [phone] Billie Diaz, RN Labs Only [...] PM EST Office Visit Hematology/Oncology at [address] [phone] Lee Ann Jay MD [facility] [place] [address] An Anderson APRN [facility] [place] [address] documented as of this encounter Procedures Procedure [...] on filedocumented in this encounter Care Teams Coating Machine Helper Relationship Specialty Start Date End Date Julia Chatterjee MD [address] [place] [address] PCP - General 01/31/10 documented as of this encounter
--- OUTSIDE RECORDS SUMMARY | 2023-10-24 02:34 | XMS_ITS | Encounter Summary ---
Author Organization [facility] [place] [address] Care Team Providers Care Capacitor Inspector Name Role Phone Julia Chatterjee MD Primary Care Provider [phone] Reason for Visit * Reason Onset Date Comments Abnormal Lab 10/09/2019 ANC Encounter Details Date Type Department Care Team (Late st Contact Info) Description 10/09/2019 Telephone Hematology Oncology at [address] [phone] Billie Diaz RN Abnormal Lab [...] make an appt to have labs at [facility] the day before her appt with dr [...] this time. * Telephone Encounter - Billie Diaz RN - 10/09/2019 10:06 AM EDT CBC [...] PM EST Office Visit Hematology/Oncology at [address] [phone] Lee Ann Jay MD [facility] DR HEMATOLOGY [place] [address] An Anderson, JAYLEN [facility] [place] [address] documented as of this encounter Procedures Procedure [...] on filedocumented in this encounter Care Teams Capacitor Inspector Relationship Specialty Start Date End Date Julia Chatterjee MD [facility] [address] [place] [address] PCP - General 01/31/10 documented as of this encounter
--- OUTSIDE RECORDS SUMMARY | 2023-10-24 02:34 | XMS_ITS | Encounter Summary ---
Author Organization [facility] [address] Care Team Providers Care Electrotyper Apprentice Name Role Phone Julia Chatterjee MD Primary Care Provider [phone] Encounter Details Date Type Department Care Team (Late Contact Info) Description 09/14/2019 [place] [address] Power Manriquez MD [facility] [place] [address] Social History Tobacco Use Types Packs/Day Years [...] PM EST Office Visit Hematology/Oncology at [address] [phone] Lee Ann Jay MD [facility] DR HEMATOLOG[place] [address] Leti Anderson, ANATOMY PROFESSOR [facility] DR [place]EMATOLOGY [place] [address] documented as of this encounter Visit Diagnoses Not on filedocumented in this encounter Care Teams Electrotyper Apprentice Relationship Specialty Start Date End Date Julia Chatterjee MD [address] [place] [address] PCP - General 01/31/10 documented as of this encounter
--- OUTSIDE RECORDS SUMMARY | 2023-10-24 02:34 | XMS_ITS | Encounter Summary ---
Author Organization [facility] [place] [address] Care Team Providers Care Mine Safety Engineer Name Role Phone Julia Chatterjee MD Primary Care Provider [phone] Encounter Details Date Type Department Care Team (Late st Contact Info) Description 09/08/2019 [place] [address] Jessica Johnson Social History Tobacco Use Types [...] PM EST Office Visit Hematology/Oncology at [address] [phone] Lee Ann Jay MD [facility] [address] [place] [address] Leti Anderson APRN [facility] [address] [place] [address] documented as of this encounter Visit Diagnoses Not on filedocumented in this encounter Care Teams Mine Safety Engineer Relationship Specialty Start Date End Date Julia Chatterjee MD [facility] [address] [facility] [address] [place] [address] PCP - General 01/31/10 documented as of this encounter
--- OUTSIDE RECORDS SUMMARY | 2023-10-24 02:34 | XMS_ITS | Encounter Summary ---
Author Organization [facility] [place] [address] Care Team Providers Care Loan Coordinator Name Role Phone Julia Chatterjee MD Primary Care Provider [phone] Encounter Details Date Type Department Care Team (Late Contact Info) Description 09/08/2019 Notes [place] [phone] Rosanne Recinos RN Social History Tobacco Use [...] Disease OPAT Program Faxed to pharmacy at [facility] on 09/08/19 at 1104 Fax confirmation on 09/08/19 at 1107 Faxed to [facility] ([facility]) on 09/08/19 at 1024 Fax confirmation on 09/08/19 at 1032 Documents faxed: New OPAT order 09/08/19 ASHER Abad, RN, ACM-RN OPAT Program documented in this encounter Plan of Treatment Upcoming Encounters Date Type Department Care Team (Late st Contact Info) Description 04/15/2024 1:00 PM EST Office Visit Hematology/Oncology at [address] [phone] [facility] [address] [place] [address] [facility] [place] [address] documented as of this encounter Visit Diagnoses Not on filedocumented in this encounter Care Teams Loan Coordinator Relationship Specialty Start Date End Date Julia Chatterjee MD [facility] [address] [place] [address] PCP - General 01/31/10 documented as of this encounter
--- OUTSIDE RECORDS SUMMARY | 2023-10-24 02:34 | XMS_ITS | Encounter Summary ---
Author Organization [facility] [place] [address] Care Team Providers Care Heading Repairer Name Role Phone Julia Chatterjee MD Primary Care Provider [phone] Encounter Details Date Type Department Care Team (Late Contact Info) Description 10/21/2019 Orders Only Hematology [place] [phone] Lee Ann Jay MD [facility] [place]Y [place] [address] Social History Tobacco Use Types Packs/Day Years [...] 1:00 PM EST Office Visit Hematology/Oncology at [address] [phone] Lee Ann Jay MD [facility] [place]OLOGY [place] [address] Leti Anderson, TOOL ROOM GEAR MACHINE OPERATOR [facility] [place]Y [place] [address] documented as of this encounter Visit Diagnoses Not on filedocumented in this encounter Care Teams Heading Repairer Relationship Specialty Start Date End Date Julia Chatterjee MD [employer] K[address] FEL[address] [facility] [address] [place] [address] PCP - General 01/31/10 documented as of this encounter
--- OUTSIDE RECORDS SUMMARY | 2023-10-24 02:35 | XMS_ITS | Encounter Summary ---
Author Organization [facility] [place] [address] Care Team Providers Care Cardiology Clinical Consultant Name Role Phone Julai Chatterjee MD Primary Care Provider [phone] Reason for Referral * Consultation (Urgent) - Closed Specialty Diagnoses / Procedures Referred By Kimani t Referred To Contact Gastroenterology Diagnoses Ulcerative rectosigmoiditis with abscess Hesham Dobson MD [facility] [place] [address] [facility] [address] [place] [address] Referral ID Status Reason Start Date Expiration Date V isits Requested Visits Authorized [id number] Closed Consult, Test & Treat 09/03/2019 09/02/2020 1 1 Encounter Details Date Type Department Care Team (Late st Contact Info) Description 09/03/2019 Orders [place] [address] Hesham Dobson MD [facility] [place] [address] Ulcerative rectosigmoiditis with abscess Social [...] PM EST Office Visit Hematology/Oncology at [address] [phone] Lee Ann Jay MD [facility] DR [place] [address] Leti Anderson APRN [facility] [place] [address] Scheduled Referrals Name Type Priority Associated Diagnoses Orde r Schedule Referral to Gastroenterology Outpatient Referral Routine Ulcerative rectosigmoiditis with abscess Ordered: 09/03/2019 documented as of this encounter Visit Diagnoses Diagnosis Ulcerative rectosigmoiditis with abscess documented in this encounter Care Teams Cardiology Clinical Consultant Relationship Specialty Start Date End Date Julia Chatterjee MD [facility] [address] [place] [address] PCP - General 01/31/10 documented as of this encounter
--- OUTSIDE RECORDS SUMMARY | 2023-10-24 02:35 | XMS_ITS | Encounter Summary ---
Author Organization [facility] Address [place] [address] Care Team Providers Care Specialty Manufacturing Supervisor Name Role Phone Julia Chatterjee MD Primary Care Provider [phone] Reason for Visit * Reason Comments Fever hepatic abscess * Auth/Cert Specialty Diagnoses / Procedures Referred By Contac t Referred To Contact Diagnoses Hepatic abscess Referral ID Status Reason Start Date Expiration Date Visits Re quested Visits Authorized [id number] 1 1 Encounter Details Date Type Department Care Team (Late st Contact Info) Description 09/02/2019 Surgery [place] [address] Mary Castro MD [facility] [place] [address] FLEXIBLE SIGMOIDOSCOPY (WRVU 0.84) Social History Tobacco [...] Leti Parry Patient Age: 68 y.o. Language: Kittitian Race: White Ethnicity: Not nor Admit date: 09/01/2019 Discharge date and time: 09/07/2019 at 2PM Attending Physician: Terrance Santana MD Discharge Physician: Terrance Santana MD Follow-up Recommendations for Providers: Patient has hepatic abscess drain with suction-bulb in place. She is scheduled for drain-check F/U with [facility] radiology on October 02. Please monitor for [...] please contact your inpatient physician through the [facility] Core Piler . Issues afterhours and on weekends will [...] in 4 weeks for fluoroscopic drain check. Core Piler(s): Resident/Fellow: Johan Hernandez M.D. Attending: Terrance Gunter [...] this report, please contact the number below. PICC Placement Over 5 Years with Imaging Guidance (IV Team) (Exam End: 09/07/2019 9:43 AM) Impression Appropriate RIGHT PICC placement Thank you for letting us participate in the care of this patient. For questions regarding this report, please contact the number below. Pending Studies and Lab Data: no studies [...] - You have a follow-up appointment with [facility] radiology for a drain check on October 02. Please make sure to do flushes as outlined on discharge instructions and keep the area around the suction bulb clean. If you develop fevers, discharge around the drain site, or worsening pain please see your PCP. - You have a follow-up appointment on October 20 with your [facility] hematology team. - Please follow-up with [facility] GI service scheduling to schedule your next [...] is during regular office hours, please call [phone]. If it is after regular office hours, or on weekends or holidays, please call [phone] and ask to speak to the Aerial Survey Technician communications instructor for Interventional Radiology. XX You have received [...] Dept Phone 10/21/2019 10:00 AM Radha Cooper, GLOVE CLEANER; Lee Ann Jay MD Hematology/Oncology at [facility] Arrive at: [facility] door at end of hallway [phone] Future Orders Complete By Expires IR Drain Check/Change/Remove [[id number] Custom] 10/03/2019 (Approximate) 04/03/2020 Process Instructions: Scheduling Instructions: Questions: Where will study be performed?: [facility] Radiology Reason for exam and clinical [...] Recommendation for Post Discharge IV Antibiotic Management [RRY151 CPT(R)] As directed Process Instructions: If no progress note charted, please enter Clinical details in comments. Scheduling Instructions: Comments: Please Fax all results to: OPAT Program Infectious Disease Section [facility], [place] [address] FAX: After hours, please contact the Infectious Disease Physician communications instructor at . If this order was signed greater than 72 hours prior to [facility] discharge, please call to confirm the accuracy [...] Briana King DO Referral for Outpatient Antibiotics [XAO7828 CPT(R)] As directed Process Instructions: Scheduling Instructions: Comments: Flush per OPAT Protocol Questions: Vendor / contact information: [place] Patient location post discharge: Home Service requested: IV ABX Therapy Start date: Responsible MD post discharge contact info: PCP Referral to Home Health - at DISCHARGE [[id number] CPT(R)] As directed Process Instructions: Scheduling Instructions: Comments: DOCUMENTATION FOR VNA SERVICES (INCLUDING THOSE PATIENTS WITH MEDICARE COVERAGE REQUIRING HOME VNA SERVICES AND/OR HOSPICE SERVICES) PATIENT'S LOCATION: Leti Parry [address] [place] [id number] (home) Cell: Telephone Information: Solder Making Supervisor's Name: Patient In discussion with the attending physician, it is certified that this patient is under their care and that they, or a Nurse Practitioner,Clinical Nurse specialist or Physician Switching Operator who is working directly with them, had [...] assess and continue rehab for managing ADL's. INDUSTRIAL TECHNOLOGY TEACHER: Assist with ADLS HOME HEALTH CARE AGENCY: [facility] PHONE: [phone] FAX: [phone] Start of care: Day of Discharge FOR [...] PCP: MD Sushant Garg DR [address] / [facility] [address] All A agencies which cover the area of patient's residence have been reviewed, either verbally nadine writing, and patient/family have chosen the home health care agency noted Questions: Agency name and contact information: [facility] Patient location post discharge: Home What services are requested: Registered Nurse Start date: Responsible MD post discharge contact info: PCP Discharge References/Attachments Surgical Drain Care (Kittitian) PICC (Peripherally Inserted Central Catheter) (Kittitian) * Rizwan Lama Xavi - 09/07/2019 11:50 AM EDT Images from the original note were not included. Discharge Summary Patient Name: Leti Parry Patient Age: 68 y.o. Language: Kittitian Race: White Ethnicity: Not nor Admit date: 09/01/2019 Discharge date and time: 09/07/2019 at 2PM Attending Physician: Terrance Santana MD Discharge Physician: Terrance Santana MD Follow-up Recommendations for Providers: Patient has hepatic abscess drain with suction-bulb in place. She is scheduled for drain-check F/U with [facility] radiology on October 02. Please monitor for [...] please contact your inpatient physician through the [facility] Core Piler . Issues afterhours and on weekends will [...] in 4 weeks for fluoroscopic drain check. Core Piler(s): Resident/Fellow: Johan Hernandez M.D. Attending: Terrance Gunter [...] this report, please contact the number below. PICC Placement Over 5 Years with Imaging Guidance (IV Team) (Exam End: 09/07/2019 9:43 AM) Impression Appropriate RIGHT PICC placement Thank you for letting us participate in the care of this patient. For questions regarding this report, please contact the number below. Pending Studies and Lab Data: no studies [...] is during regular office hours, please call [phone]. If it is after regular office hours, or on weekends or holidays, please call [phone] and ask to speak to the Aerial Survey Technician communications instructor for Interventional Radiology. XX You have received [...] APRN; Lee Ann Jay MD Hematology/Oncology at [facility] Arrive at: [facility] door at end of hallway [phone] Future Orders Complete By Expires IR Drain Check/Change/Remove [[id number] Custom] 10/03/2019 (Approximate) 04/03/2020 Process Instructions: Scheduling Instructions: Questions: Where will study be performed?: [facility] Radiology Reason for exam and clinical [...] Recommendation for Post Discharge IV Antibiotic Management [TRW075 CPT(R)] As directed Process Instructions: If no progress note charted, please enter Clinical details in comments. Scheduling Instructions: Comments: Please Fax all results to: OPAT Program Infectious Disease Section [facility], [place] [address] FAX: After hours, please contact the Infectious Disease Physician communications instructor at . If this order was signed greater than 72 hours prior to [facility] discharge, please call to confirm the accuracy [...] King DO Discharge References/Attachments Surgical Drain Care (Kittitian) PICC (Peripherally Inserted Central Catheter) (Kittitian) Associated attestation - Terrance Santana MD - [...] is during regular office hours, please call [phone]. If it is after regular office hours, or on weekends or holidays, please call [phone] and ask to speak to the Aerial Survey Technician communications instructor for Interventional Radiology. XX You have received [...] - You have a follow-up appointment with [facility] radiology for a drain check on October 02. Please make sure to do flushes as outlined on discharge instructions and keep the area around the suction bulb clean. If you develop fevers, discharge around the drain site, or worsening pain please see your PCP. - You have a follow-up appointment on October 20 with your [facility] hematology team. - Please follow-up with [facility] GI service scheduling to schedule your next colonoscopy. - ID service scheduling will call you to set up a follow-up appointment. Please reach out if you are not contacted over the next two weeks. * Attachments The following attachments cannot be sent through Care Everywhere. * Surgical Drain Care (Kittitian) * PICC (Peripherally Inserted Central Catheter) (Kittitian) documented in this encounter Medications at Time [...] up Note: SAMUEL Confirmed with Ye From [facility] that patient will be seen 09/08/2019. Hospital teaching was completed with [employer] air bag curer of IV supplies will occur to meet patient's need for SOC on Saturday09/08/2019 Infusion Resource Center [phone] * Liyah Rodriguez RN - 09/07/2019 11:06 [...] go. RNCM made Alejandra at [facility] aware. This plan was formulated with input from patient, family and team. All are in agreement with plan. * Liyah Rodriguez RN - 09/07/2019 9:08 AM EDT Office of Care Management/Bottle Booth Attendant(CM) Home IV Antibiotic Therapy Referral Note. Report [...] Home Health Agency: Patient requested referral to [facility] PHONE: [phone] FAX: [phone] Referrals sent via [employer]. Home Infusion Vendor: Patient requested referral to: [place], [place] or Referrals sent via [employer]. Diabetic Status: Patient is not a diabetic [...] been on any therapy who presented to [facility] at the beginning of August with [...] colitis on steroid taper, recent admission to [facility] for colitis c/b E coli bacteremia [...] colitis on steroid taper, recent admission to [facility] for colitis c/b E coli bacteremia [...] minimumof two midnights or is on the [facility] inpatient only procedure list (status C) due to: Ongoing need forIV antibiotics for hepatic abscess Terrance Santana MD Attending, Hospital Medicine Service Pager #[phone] 09/06/2019 * Terrance Enciso RN - 09/05/2019 [...] colitis on steroid taper, recent admission to [facility] for colitis c/b E coli bacteremia [...] in 4 weeks for fluoroscopic drain check. Core Piler(s): Resident/Fellow: Johan Hernandez M.D. Attending: Terrance Gunter [...] this report, please contact the number below. Inpatient Medications: Scheduled ??? [id number] 480 mcg [...] colitis on steroid taper, recent admission to [facility] for colitis c/b E coli bacteremia [...] minimumof two midnights or is on the [facility] inpatient only procedure list (status C) due to: Ongoing need forIV antibiotics for hepatic abscess Terrance Santana MD Attending, Hospital Medicine Service Pager #[phone] 09/05/2019 * Alexis Caro MD - 09/04/2019 [...] Intake/Output Summary (Last 24 hours) at 09/04/2019 1812 Last data filed at 09/04/2019 0638 Gross [...] colitis on steroid taper, recent admission to [facility] for colitis c/b E coli bacteremia [...] with PO abx Team Pager( Coverage 01/10): #[phone] PCP: Julia Chatterjee MD [phone] Attestation: IPI Certification I certify that I am a D-H credentialed attending provider with admitting privileges and that the patient meets or has met medical necessity to require an inpatient IPI level of care meeting a minimumof two midnights or is on the [facility] inpatient only procedure list (status C) [...] 4:43 PM EDT OFFICE OF CARE MANAGEMENT Bottle Booth Attendant Follow-up Note Discussed plan of care with Primary team and Nursing to assess continuing care and discharge needs. LOS: 2d Primary Insurance: MEDICARE Secondary Insurance: [employer] [place] Pt continues to require hospitalization for hepatic abscess Ongoing Issues: ID Following - awaiting recommendation IVABX 09/03 PICC placement held -possible transition to oral ABX Awaiting cultures/sensitivities Functional Status Prior to Admission: Independent Discharge plan: home when medically ready Transportation: Bottle Booth Attendant to follow with team and family to assist with discharge needs when patient ready for discharge. Liyah Rodriguez RIB BENDER, Bottle Booth Attendant Pgr. [phone] * Johan Hernandez MD - [...] contact with any questions Johan Hernandez MD Aerial Survey Technician * Jeimy Nicholas RN - 09/03/2019 11:30 [...] Caro MD - 09/03/2019 5:04 PM EDT [facility] Medicine Attending Daily Progress Note [...] colitis on steroid taper, recent admission to [facility] for colitis c/b E coli bacteremia [...] Anticipated Disposition: 09/03/2019 Team Pager( Coverage 01/10): #[phone] PCP: Julia Chatterjee MD [phone] Attestation: IPI Certification I certify that I [...] washospitalized in the beginning of August at [facility] with worsening diarrhea/painful defecation/fevers, found to [...] access tract was dilated and a 10 Cuban locking pigtail drainage catheter was placed. Post [...] washospitalized in the beginning of August at [facility] with worsening diarrhea/painful defecation/fevers to 102.5 [...] Dr. Castro. Hesham Dobson MD Gastroenterology Fellow #[phone] I have seen and evaluated the patient [...] colitis on steroid taper, recent admission to [facility] for colitis c/b E coli bacteremia [...] Anticipated Disposition: 09/03/2019 Team Pager( Coverage 01/10): #[phone] PCP: Julia Chatterjee MD [phone] Attestation: IPI Certification I certify that I [...] of : 1950 AGE: 68 y.o. Address: [address] [address] (home) Mobile: Telephone Information: Referring Provider: Self [...] by Lee Ann Jay MD at [facility] OSC ??? PRO BONE MARROW BX, NEEDLE/TROCAR Right 01/08/2017 ([facility] MSURG) BONE MARROW,BIOPSY (WRVU 1.37) performed by Lee Ann Jay MD at [facility] OSC ??? PRO COLONOSCOPY, BIOPSY 07/05/2011 COLONOSCOPY FLEXIBLE, WITH BX performed by MARY CASTRO at [facility] ENDOSCOPY ??? PRO COLONOSCOPY, REMV LESN, SNARE 07/05/2011 COLONOSCOPY, POLYPECTOMY, REMOVAL LESION BY SNARE performed by MARY CASTRO at [facility] ENDOSCOPY Date/Procedure Meds given/comments 09/02/19 CT [...] by Lee Ann Jay MD at [facility] OSC ??? PRO BONE MARROW BX, NEEDLE/TROCAR Right 01/08/2017 ([facility]) BONE MARROW,BIOPSY (WRVU 1.37) performed by Lee Ann Jay MD at [facility] OSC ??? PRO COLONOSCOPY, BIOPSY 07/05/2011 COLONOSCOPY FLEXIBLE, WITH BX performed by MARY CASTRO at [facility] ENDOSCOPY ??? PRO COLONOSCOPY, [place]AN [place], SNARE 07/05/2011 COLONOSCOPY, POLYPECTOMY, REMOVAL LESION BY SNARE performed by MARY CASTRO at [facility] ENDOSCOPY Medications: No current facility-administered medications [...] Santana MD - 09/01/2019 11:30 PM EDT [facility] Medicine Serivce Inpatient Admission Note Problem List: There are no hospital problems to display for this patient. Active Non-Hospital Problems Diagnosis ??? Ulcerative colitis ??? Leukopenia ID: 68 y.o. 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 Review of records. Discharge summary from [facility]. Patient admitted 08/14 to 08/16 for [...] by Lee Ann Jay MD at [facility] OSC ??? PRO BONE MARROW BX, NEEDLE/TROCAR Right 01/08/2017 ([facility]) BONE MARROW,BIOPSY (WRVU 1.37) performed by Lee Ann Jay MD at [facility] OSC ??? PRO COLONOSCOPY, BIOPSY 07/05/2011 COLONOSCOPY FLEXIBLE, WITH BX performed by MARY CASTRO at [facility] ENDOSCOPY ??? PRO COLONOSCOPY, REMV LESN, SNARE 07/05/2011 COLONOSCOPY, POLYPECTOMY, REMOVAL LESION BY SNARE performed by MARY CASTRO at [facility] ENDOSCOPY Prior To Admission Medications: (Not [...] file Gets together: Not on file Attends islam service: Not on file Active member of [...] colitis on steroid taper, recent admission to [facility] for colitis c/b E coli bacteremia [...] Santana MD Attending, Hospital Medicine Service Pager #[phone] until 0800 09/0109/01/2019 IPI Certification I certify that I am a D-H credentialed attending provider with admitting privileges and that the patient meets or has met medical necessity to require an inpatient IPI level of care meeting a minimumof two midnights or is on the [facility] inpatient only procedure list (status C) [...] to the planned procedure. Hand Hygiene: The student services representative did perform hand hygiene prior to line insertion. Catheter type: PICC Lot number: [id number] Procedure Technique: Skin was prepped with chlorhexidine. [...] Procedure Comments: TANIYA NEVAREZ RN 09/07/2019 * Tnaiya Nevarez RN - 09/04/2019 11:06 AM EDT [...] told by her physician to present to [facility] to be admitted to the GI service. [...] on phone: None Gets together: None Attends islam service: None Active member of club or [...] notes in chart). Pt driving down from [facility]. 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 Now has hepatic abscess. In [facility] with ecoli bacteremia last week. finished [...] EDT Problem: Health Knowledge, Opportunity to Enhance (Adult,NICU,Rhodes,Obstetrics,Pediatric) Goal: Knowledgeable about Health Subject/Topic Patient will demonstrate the desired outcomes by discharge/transition of care. Outcome: Outcome (s) achieved Date Met: 09/07/19 09/07/19 0955 Health Knowledge, Opportunity to Enhance (Adult,NICU,,Obstetrics,Pediatric) Knowledgeable about Health Subject/Topic achieves outcome Peripherally Inserted Central Catheter (PICC) Teaching Sheet Peripherally inserted central catheters (vxeq-aq-chii) (PICC) are used when you need IV [...] midline catheter? PICC lines are used for usp treatments. PICC lines may be used for [...] can be set up via the nurse Bottle Booth Attendant to help you. What are possible complications [...] Vascular Access Device Selection, Insertion, and Management, [employer] Access Systems 12/13. A Review of the Efficacy, Safety, Use, and Administration of [employer]flo, [employer] 2005 * Plan of Care - [...] Surveillance [continuous indirect monitoring]: Room near [facility] Patient-specific fall prevention interventions for sensory [...] (on steroid taper). She was admitted to [facility] earlier this month for colitis c/b [...] Fluid Culture, Aerobic & Anaerobic Abdominal Fluid [[id number]] Collected: 09/02/19 1300 Lab Status: Preliminary result Specimen: Abdominal Fluid Updated: 09/05/19 141 Body Fluid Culture, Aerobic [[id number]] (Abnormal) Collected: 09/02/19 1300 Lab Status: Preliminary result Specimen: Abdominal Fluid Updated: 09/05/19 141 Body Fluid Culture Few Actinomyces species Gram Stain -- Many Neutrophils seen Many Gram Positive Cocci seen Few Gram Negative Rods seen Rare Gram Positive Rods seen Anaerobic Culture [[id number]] (Abnormal) Collected: 09/02/19 1300 Lab Status: Preliminary result Specimen: Abdominal Fluid Updated: 09/05/19 1251 Anaerobic Culture -- Moderate Clostridium species, not C perfringens Moderate Bacteroides fragilis Group Moderate Peptostreptococcus species COVID-19 PCR [[id number]] Collected: 09/02/19 0141 Lab Status: Final result [...] using the Simplexa COVID-19 Direct Assay by [employer] as authorized by the FDA issued Emergency [...] Department of Pathology and Laboratory Medicine at [facility], certified under the Clinical Laboratory Improvement [...] Information for Healthcare Professionals (https://www.cdc.gov/coronavirus/2019-ncov/hcp/index.html). SARS-CoV-2 Source TELEPHONE COIN BOX COLLECTOR Swab Blood culture [[id number]] Collected: 09/01/192207 Lab Status: Preliminary result Specimen: Blood Updated: 09/04/192300 Blood Culture No growth at 3 days. Blood culture [[id number]] Collected: 09/01/192207 Lab Status: Preliminary result Specimen: [...] day BOB Cao Hospital Medicine Team pager #[phone] Personal pager #[phone] Associated attestation - Terrance Santana MD - 09/06/2019 1:06 PM EDT I agree with the above note written by BOB Cao. Please see my additional, separate notefor any changes or amendments. Terrance Santana MD * Plan of Care - Mavis Ahuja RN - 09/04/2019 10:45 PM EDT Problem: Patient Care Overview Goal: Plan of Care Review Outcome: Ongoing (Interventions Implemented as Appropriate) 09/04/19 6355 Plan of Care Review Progress progress towards [...] hepatic abscess. Notably, patient was admitted to [facility] earlier this month in the setting [...] 09/02/2019 CT Guided Aspiration Liver 09/02/2019 [facility] RAD CAT SCAN ??? PRO BONE MARROW ASPIRATION W/BX THROUGH SAME INCISION/SITE Right 01/08/2017 ([facility] MSURG) BONE MARROW ASP PERFORMED W/BX THRU BX INCISION (WRVU 0.16) performed by Lee Ann Jay MD at [facility] OSC ??? PRO BONE MARROW BX, NEEDLE/TROCAR Right 01/08/2017 [facility] BONE MARROW,BIOPSY (WRVU 1.37) performed by Lee Ann Jay MD at [facility] OSC ??? PRO COLONOSCOPY, BIOPSY 07/05/2011 COLONOSCOPY FLEXIBLE, WITH BX performed by MARY CASTRO at [facility] ENDOSCOPY ??? PRO COLONOSCOPY, REMV LESN, SNARE 07/05/2011 COLONOSCOPY, POLYPECTOMY, REMOVAL LESION BY SNARE performed by MARY CASTRO at [facility] ENDOSCOPY ??? PRO SIGMOIDOSCOPY, DIAGNOSTIC N/A 09/02/2019 FLEXIBLE SIGMOIDOSCOPY performed by Mary Castro MD at [facility] ENDOSCOPY Medications: ??? oxyCODONE (Roxicodone) tablet [...] Family History: Noncontributory Social History: Lives in [facility] with her 6 drinks per week Nonsmoker No illicits No pets Travel - to [place] in Apr, to [place] in May No camping, no suspicious food [...] Fluid Culture, Aerobic & Anaerobic Abdominal Fluid [[id number]] Collected: 09/02/19 1300 Lab Status: Preliminary result Specimen: Abdominal Fluid Updated: 09/03/19 1409 Body Fluid Culture, Aerobic [[id number]] (Abnormal) Collected: 09/02/19 1300 Lab Status: Preliminary result Specimen: Abdominal Fluid Updated: 09/03/19 0807 Body Fluid Culture No growth to date. Gram Stain -- Many Neutrophils seen Many Gram Positive Cocci seen Few Gram Negative Rods seen Rare Gram Positive Rods seen Anaerobic Culture [[id number]] Collected: 09/02/19 1300 Lab Status: Preliminary result Specimen: Abdominal Fluid Updated: 09/03/19 1409 Anaerobic Culture No anaerobic organisms isolated to date COVID-19 PCR [[id number]] Collected: 09/02/19 0141 Lab Status: Final result [...] using the Simplexa COVID-19 Direct Assay by [employer] as authorized by the FDA issued Emergency [...] Department of Pathology and Laboratory Medicine at [facility], certified under the Clinical Laboratory Improvement [...] Information for Healthcare Professionals (https://www.cdc.gov/coronavirus/2019-ncov/hcp/index.html). SARS-CoV-2 Source TELEPHONE COIN BOX COLLECTOR Swab Blood culture [[id number]] Collected: 09/01/192207 Lab Status: Preliminary result Specimen: Blood Updated: 09/03/192300 Blood Culture No growth at 2 days. Blood culture [[id number]] Collected: 09/01/192207 Lab Status: Preliminary result Specimen: [...] therapy for her abscess. During admission to [facility], there was CT evidence of a [...] initial CT imaging. Her blood cultures at [facility] had grown E. Coli and strep [...] from blood cultures during previous admission to [facility] - hold PICC placement, as it [...] been on any therapy and presented to [facility] at the beginning of August with [...] (on steroid taper). She was admitted to [facility] earlier this month for colitis c/b [...] Fluid Culture, Aerobic & Anaerobic Abdominal Fluid [[id number]] Collected: 09/02/19 1300 Lab Status: Preliminary result Specimen: Abdominal Fluid Updated: 09/03/19 1409 Body Fluid Culture, Aerobic [[id number]] (Abnormal) Collected: 09/02/19 1300 Lab Status: Preliminary result Specimen: Abdominal Fluid Updated: 09/03/19 0807 Body Fluid Culture No growth to date. Gram Stain -- Many Neutrophils seen Many Gram Positive Cocci seen Few Gram Negative Rods seen Rare Gram Positive Rods seen Anaerobic Culture [[id number]] Collected: 09/02/19 1300 Lab Status: Preliminary result Specimen: Abdominal Fluid Updated: 09/03/19 1409 Anaerobic Culture No anaerobic organisms isolated to date COVID-19 PCR [[id number]] Collected: 09/02/19 0141 Lab Status: Final result [...] using the Simplexa COVID-19 Direct Assay by [employer] as authorized by the FDA issued Emergency [...] Department of Pathology and Laboratory Medicine at [facility], certified under the Clinical Laboratory Improvement [...] Information for Healthcare Professionals (https://www.cdc.gov/coronavirus/2019-ncov/hcp/index.html). SARS-CoV-2 Source TELEPHONE COIN BOX COLLECTOR Swab Blood culture [[id number]] Collected: 09/01/192207 Lab Status: Preliminary result Specimen: Blood Updated: 09/03/192300 Blood Culture No growth at 2 days. Blood culture [[id number]] Collected: 09/01/192207 Lab Status: Preliminary result Specimen: [...] Rizwan Lama MS4 Hospital Medicine Team pager #[phone] Personal pager #[phone] * Plan of Care - Marylu Shah [...] (on steroid taper). She was admitted to [facility] earlier this month for colitis c/b [...] Fluid Culture, Aerobic & Anaerobic Abdominal Fluid [[id number]] Collected: 09/02/19 1300 Lab Status: In process Specimen: Abdominal Fluid Updated: 09/03/19 0807 Body Fluid Culture, Aerobic [[id number]] (Abnormal) Collected: 09/02/19 1300 Lab Status: Preliminary result Specimen: Abdominal Fluid Updated: 09/03/19 0807 Body Fluid Culture No growth to date. Gram Stain -- Many Neutrophils seen Many Gram Positive Cocci seen Few Gram Negative Rods seen Rare Gram Positive Rods seen COVID-19 PCR [[id number]] Collected: 09/02/19 0141 Lab Status: Final result [...] using the Simplexa COVID-19 Direct Assay by [employer] as authorized by the FDA issued Emergency [...] Department of Pathology and Laboratory Medicine at [facility], certified under the Clinical Laboratory Improvement [...] Information for Healthcare Professionals (https://www.cdc.gov/coronavirus/2019-ncov/hcp/index.html). SARS-CoV-2 Source TELEPHONE COIN BOX COLLECTOR Swab Blood culture [[id number]] Collected: 09/01/192207 Lab Status: Preliminary result Specimen: Blood Updated: 09/02/192300 Blood Culture No growth at 1 day. Blood culture [[id number]] Collected: 09/01/192207 Lab Status: Preliminary result Specimen: [...] home in 2 days Rizwan Lama, MS4 [facility] Medicine Team pager #[phone] Personal pager #[phone] * Plan of Care - Sabrina Castro RN - 09/03/2019 12:26 AM EDT Problem: Patient Care Overview Goal: Plan of Care Review Outcome: Ongoing (Interventions Implemented as Appropriate) 09/02/19 0825 09/02/19 2793 Plan of Care Review Progress progress toward [...] (on steroid taper). She was admitted to [facility] earlier this month for colitis c/b [...] Fluid Culture, Aerobic & Anaerobic Abdominal Fluid [[id number]] Collected: 09/02/19 1300 Lab Status: In process Specimen: Abdominal Fluid Updated: 09/02/19 1527 Body Fluid Culture, Aerobic [[id number]] (Abnormal) Collected: 09/02/19 1300 Lab Status: Preliminary result Specimen: Abdominal Fluid Updated: 09/02/19 1527 Gram Stain -- Many Neutrophils seen Many Gram Positive Cocci seen Few Gram Negative Rods seen Rare Gram Positive Rods seen COVID-19 PCR [[id number]] Collected: 09/02/19 0141 Lab Status: Final result [...] using the Simplexa COVID-19 Direct Assay by [employer] as authorized by the FDA issued Emergency [...] Department of Pathology and Laboratory Medicine at [facility], certified under the Clinical Laboratory Improvement [...] Information for Healthcare Professionals (https://www.cdc.gov/coronavirus/2019-ncov/hcp/index.html). 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 She had seen Dr. Oliveros in GI telehealth on 08/17 after her hospitalization at [facility], plan was to quick taper Prednisone [...] file Gets together: Not on file Attends islam service: Not on file Active member of [...] washospitalized in the beginning of August at [facility] with worsening diarrhea/painful defecation/fevers to 102.5 [...] culture sensitivity data on E. Coli from [facility] - Continue prednisone taper as previously planned - Once she is feeling better we will plan for a bowel prep with a full colonoscopy to re-evaluate response of colitis to antibiotics and extent of involvement The plan as outlined above was discussed with Dr. Castro. Hesham Dobson MD Gastroenterology Fellow #[id number] I have seen and evaluated the patient [...] colitis on steroid taper, recent admission to [facility] for colitis c/b E coli bacteremia [...] Past 30 Days: Yes patient admitted to [facility] 08/14-08/16. Patient returned toED on 08/27. [...] Montez would be surrogate decision maker per [place] surrogate decision making law. Any patient receiving care at [facility] must abide by [place] law. The hierarchy for surrogate decision making [...] (i) The agent with financial power of claim attorney or a conservator appointed in accordance [...] Health/Prescription Coverage: Primary Insurance: MEDICARE Secondary Insurance: [employer] [facility] Prescription Coverage: Yes through [employer] Preferred Pharmacy: [email or web address] Other: N/A Primary Care Provider: Julia Chatterjee MD [phone] Patient/Caregiver Goals of Treatment: To be 100% [...] colitis on steroid taper, recent admission to [facility] for colitis c/b E coli bacteremia tx'd with cipro who has had ongoing fevers and found to have hepatic abscess. Patient is independent with ADLs/IADLs and lives with a supportive . Patient is closely followed by GI and Hematology. Patient feels she is safe to go home without services. Patient's will provide transportation viaprivate car at discharge. Patient has insurance coverage through [employer] and request medications be sent to [facility] in [facility]. Patient declines Advance Directive paperwork at this time. Plan: A member of the Care Management team will continue to monitor progress, follow for continuityof care and assist with transition of care planning. JAMES Enrique Pager: [phone] * Plan of Care - Claudine Huertas [...] 1:00 PM EST Office Visit Hematology/Oncology at [address] [phone] Lee Ann Jay MD [facility] [place] [address] Leti Anderson, [employer] [facility] [place] [address] Scheduled Referrals Name Type Priority Associated Diagnoses [...] STAT 09/01/2019 7:57 PM EDT Sigmoidoscopy, Diagnostic (17506) colitis documented in this encounter Results * [...] Place PICC Line: Contact Vascular Access Page [phone] Extremity to exclude: No restrictions; Is PICC [...] to the planned procedure. Hand Hygiene: The student services representative did perform hand hygiene prior to line insertion. Catheter type: PICC Lot number: [id number] Procedure Technique: Skin was prepped with chlorhexidine. [...] please contact the number below. ? Narrative 09/07/2019 9:45 AM EDT EXAMINATION: XR [...] this report, please contact the number below. Terrance Santana MD IMG FLUORO ORDERABLE S * (ABNORMAL) Differential, Automated (09/07/2019 6:23 AM EDT) Neutrophil % 65.2 % [facility] Neutrophil Absolute 4.83 1.70 - 6.10 x10(3)/mc L [facility] Lymph % 20.6 % [facility] Lymphocytes Abs 1.5 0.9 - 3.2 x10(3)/mc L [facility] Monocyte % 6.7 % [facility] Monocyte Abs 0.5 0.3 - 0.9 x10(3)/mc L [facility] Eos % 0.1 % [facility] Eosinophils Abs 0.0 0.0 - 0.4 x10(3)/mc L [facility] Basophil % 0.1 % [facility] Baso Absolute 0.0 0.0 - 0.1 x10(3)/mc L [facility] Immature Gran % 7.30 % [facility] Comment: Immature granulocytes(IG's)percentage and absolute count will include metamyelocytes, myelocytes, and promyelocytes. Blood smears from CBCs yielding IG's will be scanned manually for concordance. If this scan disagrees with the automated IG or if promyelocytes are noted, a manual differential will be performed. Immature Gran Absolute 0.54(H) 0.00 - 0.04 x10(3)/mc L [facility] Blood specimen (specimen) 09/07/2019 6:23 AM EDT 09/07/2019 6:48 AM EDT Narrative Resulting Agency Comment Spec In Lab Terrance Santana MD HEMATOLOGY ORDERABLE S [facility] [place] [address] * (ABNORMAL) Hemogram (09/07/2019 6:23 AM EDT) White Blood Cell 7.4 4.0 - 9.5 x10(3)/ L [facility] Red Blood Cell 4.23 4.00 - 5.21 x10(6)/ L [facility] Hemoglobin 11.7 11.7 - 15.5 gm/dL [facility] Hematocrit 38.0 35.7 - 45.8 % [facility] Mean Cell Volume 89.8 82.6 - 94.4 fL [facility] Mean Cell Hemoglobin 27.7 27.1 - 32.0 pg [facility] Mean Cell Hemoglobin Concentration 30.8(L) 31.7 - 35.0 gm/dL [facility] Platelet 306 145 - 357 x10(3)/mc L [facility] RDW Standard Deviation 46.4(H) 37.0 - 46.0 fL [facility] RDW coefficient of variation 14.3(H) 11.5 - 14.1 % [facility] Mean Platelet Volume 9.9 7.6 - 12.9 fL [facility] NRBC% auto 0.0 % [facility] NRBC Absolute 0.000 0.000 - 0.000 x10(3)/ L [facility] Blood specimen (specimen) 09/07/2019 6:23 AM EDT 09/07/2019 6:48 AM EDT Narrative Resulting Agency Comment Spec In Lab Terrance Santana MD HEMATOLOGY ORDERABLE S Performing Organization Address City/[facility]/ZIP Co de Phone Number [facility] [place] [address] * (ABNORMAL) Differential, Automated (09/06/2019 9:50 AM EDT) Neutrophil % 75.8 % [facility] Neutrophil Absolute 8.52(H) 1.70 - 6.10 x10(3)/mc L [facility] Lymph % 10.1 % [facility] Lymphocytes Abs 1.1 0.9 - 3.2 x10(3)/mc L [facility] Monocyte % 7.5 % [facility] Monocyte Abs 0.8 0.3 - 0.9 x10(3)/mc L [facility] Eos % 0.1 % [facility] Eosinophils Abs 0.0 0.0 - 0.4 x10(3)/mc L [facility] Basophil % 0.4 % [facility] Baso Absolute 0.0 0.0 - 0.1 x10(3)/mc L [facility] Immature Gran % 6.10 % [facility] Comment: Immature granulocytes(IG's)percentage and absolute count will include metamyelocytes, myelocytes, and promyelocytes. Blood smears from CBCs yielding IG's will be scanned manually for concordance. If this scan disagrees with the automated IG or if promyelocytes are noted, a manual differential will be performed. Immature Gran Absolute 0.69(H) 0.00 - 0.04 x10(3)/mc L [facility] Blood specimen (specimen) 09/06/2019 9:50 AM EDT 09/06/2019 10:44 AM EDT Narrative Resulting Agency Comment Spec In Lab Terrance Santana MD HEMATOLOGY ORDERABLE S Performing Organization Address City/[facility]/ZIP Co de Phone Number [facility] [place] [address] * (ABNORMAL) Hemogram (09/06/2019 9:50 AM EDT) White Blood Cell 11.2(H) 4.0 - 9.5 x10(3)/mc L [facility] Red Blood Cell 4.38 4.00 - 5.21 x10(6)/mc L [facility] Hemoglobin 12.3 11.7 - 15.5 gm/dL [facility] Hematocrit 39.6 35.7 - 45.8 % [facility] Mean Cell Volume 90.4 82.6 - 94.4 fL [facility] Mean Cell Hemoglobin 28.1 27.1 - 32.0 pg [facility] Mean Cell Hemoglobin Concentration 31.1(L) 31.7 - 35.0 gm/dL [facility] Platelet 300 145 - 357 x10(3)/ L [facility] RDW Standard Deviation 46.3(H) 37.0 - 46.0 fL [facility] RDW coefficient of variation 14.0 11.5 - 14.1 % [facility] Mean Platelet Volume 10.0 7.6 - 12.9 fL [facility] NRBC% auto 0.0 % [facility] NRBC Absolute 0.000 0.000 - 0.000 x10(3)/ L [facility] Blood specimen (specimen) 09/06/2019 9:50 AM EDT 09/06/2019 10:44 AM EDT Narrative Resulting Agency Comment Spec In Lab Terrance Santana MD HEMATOLOGY ORDERABLE S [facility] [place] [address] * Scan, Peripheral Blood (09/05/2019 4:52 AM EDT) Pathologist [facility] Plat estimate Normal [facility] RBC Morphology Abnormal [facility] Ovalocytes 1-5 /HPF [facility] Blood specimen (specimen) 09/05/2019 4:52 AM EDT 09/05/2019 5:06 AM EDT Narrative Resulting Agency Comment Spec In Lab Terrance Santana MD HEMATOLOGY ORDERABLE S [facility] [place] [address] * (ABNORMAL) Differential, Automated (09/05/2019 4:52 AM EDT) Neutrophil % 27.5 % [facility] Neutrophil Absolute 0.42(Crit ical) 1.70 - 6.10 x10(3)/mc L [facility] Comment: This result has been called to TOM AHUJA by RADHA JOHN on 09 05 2019 at 0551, and has been read back. Lymph % 46.4 % [facility] Lymphocytes Abs 0.7(L) 0.9 - 3.2 x10(3)/mc L [facility] Monocyte % 17.6 % [facility] Monocyte Abs 0.3 0.3 - 0.9 x10(3)/mc L [facility] Eos % 0.0 % [facility] Eosinophils Abs 0.0 0.0 - 0.4 x10(3)/mc L [facility] Basophil % 0.0 % [facility] Baso Absolute 0.0 0.0 - 0.1 x10(3)/mc L [facility] Immature Gran % 8.50 % [facility] Comment: Immature granulocytes(IG's)percentage and absolute count will include metamyelocytes, myelocytes, and promyelocytes. Blood smears from CBCs yielding IG's will be scanned manually for concordance. If this scan disagrees with the automated IG or if promyelocytes are noted, a manual differential will be performed. Immature Gran Absolute 0.13(H) 0.00 - 0.04 x10(3)/mc L [facility] Blood specimen (specimen) 09/05/2019 4:52 AM EDT 09/05/2019 5:06 AM EDT Narrative Resulting Agency Comment Spec In Lab Terrance Santana MD HEMATOLOGY ORDERABLE S [facility] [place] [address] * (ABNORMAL) Hemogram (09/05/2019 4:52 AM EDT) White Blood Cell 1.5(Criti tosha) 4.0 - 9.5 x10(3)/mc L [facility] Comment: This result has been called to TOM AHUJA by RADHA JOHN on 09 05 2019 at 0551, and has been read back. Red Blood Cell 3.95(L) 4.00 - 5.21 x10(6)/mc L [facility] Hemoglobin 11.0(L) 11.7 - 15.5 gm/dL [facility] Hematocrit 35.8 35.7 - 45.8 % [facility] Mean Cell Volume 90.6 82.6 - 94.4 fL [facility] Mean Cell Hemoglobin 27.8 27.1 - 32.0 pg [facility] Mean Cell Hemoglobin Concentration 30.7(L) 31.7 - 35.0 gm/dL [facility] Platelet 266 145 - 357 x10(3)/mc L [facility] RDW Standard Deviation 45.3 37.0 - 46.0 [facility] RDW coefficient of variation 13.7 11.5 - 14.1 % [facility] Mean Platelet Volume 9.7 7.6 - 12.9 fL [facility] NRBC% auto 0.0 % [facility] NRBC Absolute 0.000 0.000 - 0.000 x10(3)/mc L [facility] Blood specimen (specimen) 09/05/2019 4:52 AM EDT 09/05/2019 5:06 AM EDT Narrative Resulting Agency Comment Spec In Lab Terrance Santana MD HEMATOLOGY ORDERABLE S [facility] [place] [address] * Scan, Peripheral Blood (09/04/2019 4:43 AM EDT) Plat estimate Normal [facility] RBC Morphology Normal [facility] Blood specimen (specimen) 09/04/2019 4:43 AM EDT 09/04/2019 5:23 AM EDT Narrative Resulting Agency Comment Spec In Lab Terrance Santana MD HEMATOLOGY ORDERABLE S Performing Organization Address City/[facility]/ZIP Co de Phone Number [facility] [place] [address] * (ABNORMAL) Basic Metabolic Panel (non-fasting) (09/04/2019 4:43 AM EDT) [facility] Glucose 88 65 - 199 mg/dL [facility] Comment:Diabetes: >=200 mg/d L plus symptoms Blood Urea Nitrogen 9 8 - 18 mg/dL [facility] Creatinine 0.49(L) 0.70 - 1.20 mg/dL [facility] Sodium 138 135 - 145 mmol/L [facility] Potassium 4.1 3.5 - 5.0 mmol/L [facility] Comment: Please note: ??Patients with WBC >100,000 may have falsely elevated Potassium levels. ??For accurate Potassium quantification in these patients send serum separator tube (gold top) for subsequent determinations. ??Contact the Clinical Chemistry Laboratory if there are any questions. Chloride 101 98 - 107 mmol/L [facility] Carbon Dioxide 27 22 - 31 mmol/L [facility] Anion Gap 10 5 - 15 mmol/L [facility] Calcium 9.4 8.5 - 10.5 mg/dL [facility] Est Glomerular Filtration Rate 101 >=60 mL/min/1. 73 m?? [facility] Comment: The eGFR was calculated using the CKD-EPI equation. As with all creatinine based estimates of kidney function, eGFR values calculated with the CKD-EPI equation are not accurate in patients with acute kidney failure, extremes of body mass or the acutely ill. http://[employer]/[email or web address] eGFR 117 >=60 mL/min/1. 73 m?? [facility] Comment: The eGFR was calculated using the CKD-EPI equation. As with all creatinine based estimates of kidney function, eGFR values calculated with the CKD-EPI equation are not accurate in patients with acute kidney failure, extremes of body mass or the acutely ill. http://[employer]/[email or web address] Blood specimen (specimen) 09/04/2019 4:43 AM EDT 09/04/2019 5:00 AM EDT Narrative Resulting Agency Comment Spec In Lab Alexis Caro MD CHEMISTRY ORDERABLES [facility] [place] [id number] * (ABNORMAL) Differential, Automated (09/04/2019 4:43 AM EDT) Neutrophil % 32.3 % [facility] Neutrophil Absolute 0.60(L) 1.70 - 6.10 x10(3)/mc L [facility] Lymph % 47.3 % [facility] Lymphocytes Abs 0.9 0.9 - 3.2 x10(3)/mc L [facility] Monocyte % 14.0 % [facility] Monocyte Abs 0.3 0.3 - 0.9 x10(3)/mc L [facility] Eos % 0.0 % [facility] Eosinophils Abs 0.0 0.0 - 0.4 x10(3)/mc L [facility] Basophil % 0.5 % [facility] Baso Absolute 0.0 0.0 - 0.1 x10(3)/mc L [facility] Immature Gran % 5.90 % [facility] Comment: Immature granulocytes(IG's)percentage and absolute count will include metamyelocytes, myelocytes, and promyelocytes. Blood smears from CBCs yielding IG's will be scanned manually for concordance. If this scan disagrees with the automated IG or if promyelocytes are noted, a manual differential will be performed. Immature Gran Absolute 0.11(H) 0.00 - 0.04 x10(3)/ L [facility] Blood specimen (specimen) 09/04/2019 4:43 AM EDT 09/04/2019 5:23 AM EDT Narrative Resulting Agency Comment Spec In Lab Terrance Santana MD HEMATOLOGY ORDERABLE S [facility] [place] [address] * (ABNORMAL) Hemogram (09/04/2019 4:43 AM EDT) White Blood Cell 1.9(Criti tosha) 4.0 - 9.5 x10(3)/ L [facility] Comment: This result has been called to FLO DEE by MIMA ELISE on 09 04 2019 at 0608, and has been read back. Red Blood Cell 4.32 4.00 - 5.21 x10(6)/mc L [facility] Hemoglobin 12.0 11.7 - 15.5 gm/dL [facility] [facility] Hematocrit 38.4 35.7 - 45.8 % [facility] Mean Cell Volume 88.9 82.6 - 94.4 fL [facility] Mean Cell Hemoglobin 27.8 27.1 - 32.0 pg [facility] Mean Cell Hemoglobin Concentration 31.3(L) 31.7 - 35.0 gm/dL [facility] Platelet 296 145 - 357 x10(3)/mc L [facility] RDW Standard Deviation 44.5 37.0 - 46.0 fL [facility] RDW coefficient of variation 13.8 11.5 - 14.1 % [facility] Mean Platelet Volume 9.8 7.6 - 12.9 fL [facility] NRBC% auto 0.0 % [facility] NRBC Absolute 0.000 0.000 - 0.000 x10(3)/mc L [facility] Blood specimen (specimen) 09/04/2019 4:43 AM EDT 09/04/2019 5:23 AM EDT Narrative Resulting Agency Comment Spec In Lab Terrance Santana MD HEMATOLOGY ORDERABLE S [facility] [place] [address] * (ABNORMAL) Differential, Automated (09/03/2019 6:36 AM EDT) Neutrophil % 57.4 % [facility] Neutrophil Absolute 2.33 1.70 - 6.10 x10(3)/mc L [facility] Lymph % 20.0 % [facility] Lymphocytes Abs 0.8(L) 0.9 - 3.2 x10(3)/mc L [facility] Monocyte % 17.5 % [facility] Monocyte Abs 0.7 0.3 - 0.9 x10(3)/mc L [facility] Eos % 0.0 % [facility] Eosinophils Abs 0.0 0.0 - 0.4 x10(3)/mc L [facility] Basophil % 0.2 % [facility] Baso Absolute 0.0 0.0 - 0.1 x10(3)/mc L [facility] Immature Gran % 4.90 % [facility] Comment: Immature granulocytes(IG's)percentage and absolute count will include metamyelocytes, myelocytes, and promyelocytes. Blood smears from CBCs yielding IG's will be scanned manually for concordance. If this scan disagrees with the automated IG or if promyelocytes are noted, a manual differential will be performed. Immature Gran Absolute 0.20(H) 0.00 - 0.04 x10(3)/ L [facility] Blood specimen (specimen) 09/03/2019 6:36 AM EDT 09/03/2019 6:59 AM EDT Narrative Resulting Agency Comment Spec In Lab Terrance Santana MD HEMATOLOGY ORDERABLE S [facility] [place] [address] * (ABNORMAL) Hemogram (09/03/2019 6:36 AM EDT) White Blood Cell 4.1 4.0 - 9.5 x10(3)/[facility] Red Blood Cell 4.42 4.00 - 5.21 x10(6)/[facility] Hemoglobin 12.0 11.7 - 15.5 gm/dL [facility] Hematocrit 39.6 35.7 - 45.8 % [facility] Mean Cell Volume 89.6 82.6 - 94.4 fL [facility] Mean Cell Hemoglobin 27.1 27.1 - 32.0 pg [facility] Mean Cell Hemoglobin Concentration 30.3(L) 31.7 - 35.0 gm/dL [facility] Platelet 315 145 - 357 x10(3)/ L [facility] RDW Standard Deviation 44.9 37.0 - 46.0 [facility] RDW coefficient of variation 13.7 11.5 - 14.1 % [facility] Mean Platelet Volume 10.2 7.6 - 12.9 [facility] NRBC% auto 0.0 % [facility] NRBC Absolute 0.000 0.000 - 0.000 x10(3)/ L [facility] Blood specimen (specimen) 09/03/2019 6:36 AM EDT 09/03/2019 6:59 AM EDT Narrative Resulting Agency Comment Spec In Lab Terrance Santana MD HEMATOLOGY ORDERABLE S Performing Organization Address [facility] de Phone Number [facility] [place] [address] * (ABNORMAL) Hepatic Function Panel (09/03/2019 6:36 AM EDT) Protein, Total 7.3 6.1 - 8.0 gm/dL [facility] Albumin 3.2 3.2 - 5.2 gm/dL [facility] Aspartate Aminotransferase 15 0 - 30 unit/L [facility] Alanine Aminotransferase 32(H) 0 - 30 unit/L [facility] Alkaline Phosphatase 105 35 - 105 unit/L [facility] Bilirubin, Total 0.4 0.2 - 1.3 mg/dL [facility] Bilirubin, Direct 0.1 0.0 - 0.3 mg/dL [facility] Blood specimen (specimen) 09/03/2019 6:36 AM EDT 09/03/2019 6:58 AM EDT Narrative Resulting Agency Comment Spec In Lab Alexis Caro MD CHEMISTRY ORDERABLES Performing Organization Address [facility] Co de Phone Number [facility] [place] [address] * (ABNORMAL) BMP w/fasting Glucose (09/03/2019 6:36 AM EDT) Glucose Fasting 102(H) 65 - 99 mg/dL [facility] Comment: ?Fasting* Glucose Interpretive Criteria [...] of Diabetes Mellitus, Position Statement from the [employer]. ??Diabetes Care, Volume 33, Supplement 1, Mar 2009 Blood Urea Nitrogen 10 8 - 18 mg/dL [facility] Creatinine 0.54(L) 0.70 - 1.20 mg/dL [facility] Sodium 133(L) 135 - 145 mmol/L [facility] Potassium 3.8 3.5 - 5.0 mmol/L [facility] Comment: Please note: ??Patients with WBC >100,000 may have falsely elevated Potassium levels. ??For accurate Potassium quantification in these patients send serum separator tube (gold top) for subsequent determinations. ??Contact the Clinical Chemistry Laboratory if there are any questions. Chloride 97(L) 98 - 107 mmol/L [facility] Carbon Dioxide 26 22 - 31 mmol/L [facility] Anion Gap 10 5 - 15 mmol/L [facility] Calcium 9.2 8.5 - 10.5 mg/dL [facility] Est Glomerular Filtration Rate 98 >=60 mL/min/1. 73 m?? [facility] Comment: The eGFR was calculated using the CKD-EPI equation. As with all creatinine based estimates of kidney function, eGFR values calculated with the CKD-EPI equation are not accurate in patients with acute kidney failure, extremes of body mass or the acutely ill. [email or web address] eGFR 113 >=60 mL/min/1. 73 m?? [facility] Comment: The eGFR was calculated using the CKD-EPI equation. As with all creatinine based estimates of kidney function, eGFR values calculated with the CKD-EPI equation are not accurate in patients with acute kidney failure, extremes of body mass or the acutely ill. [email or web address] Blood specimen (specimen) 09/03/2019 6:36 AM EDT 09/03/2019 6:58 AM EDT Narrative Resulting Agency Comment Spec In Lab Alexis Caro MD CHEMISTRY ORDERABLES [facility] [place] [address] * CT Guided Aspiration Liver (09/02/2019 1:33 [...] in 4 weeks for fluoroscopic drain check. Core Piler(s): Resident/Fellow: Johan Hernandez M.D. Attending: Terrance Gunter [...] access tract was dilated and a 10 Cuban locking pigtail drainage catheter was placed. Post [...] vein thrombus.. Final CT showed a 10 Cuban drain positioned in the hepatic fluid collection. [...] vein thrombus.. Final CT showed a 10 Cuban drain positioned inthe hepatic fluid collection. 5 mL of purulent fluid was removed. IMPRESSION Impression: Successful CT-guided drain placement in a hepatic fluidcollection. Plan/disposition: 1) To Angio recovery room, may discharge to floor when meets criteria. 2) Forward flush every 12 hours with 3-5 mL of normal saline. Recordoutputs daily. 3) Patient to return in 4 weeks for fluoroscopic drain check. Core Piler(s): Resident/Fellow: Johan Hernandez M.D. Attending: Terrance Gunter [...] this report, please contact the number below. Terrance Santana MD IMG CT ORDERABLES * (ABNORMAL) Anaerobic Culture (09/02/2019 1:00 PM EDT) Anaerobic Culture Moderate Clostridium species, not C perfringens Moderate Bacteroides fragilis Group Moderate Peptostreptococcus species (A) [facility] Organism Clostridium species, not C perfringens(A) [facility] Organism Bacteroides fragilis Group(A) [facility] Organism Peptostreptococcus species(A) [facility] Specimen from abdominal cavity (specimen) 09/02/2019 1:00 PM EDT 09/02/2019 1:33 PM EDT Comment:CT GUIDED LIVER ABSC ESS DRAIN Narrative Resulting Agency Comment Spec In Lab Terrance Santana MD MICROBIOLOGY - GENER AL ORDERABLES Performing Organization Address City/State/[facility] Co de Phone Number [facility] [place] [address] * (ABNORMAL) Body Fluid Culture, Aerobic (09/02/2019 1:00 PM EDT) Body Fluid Culture Few Actinomyces species(A) [facility] Gram Stain Many Neutrophils seen Many Gram Positive Cocci seen Few Gram Negative Rods seen Rare Gram Positive Rods seen (A) [facility] Organism Actinomyces species(A) [facility] Organism Gram Positive Cocci(A) [facility] Organism Gram Negative Rods(A) [facility] Organism Gram Positive Rods(A) [facility] Specimen from abdominal cavity (specimen) 09/02/2019 1:00 PM EDT 09/02/2019 1:33 PM EDT Comment:CT GUIDED LIVER ABSC ESS DRAIN Narrative Resulting Agency Comment Spec In Lab Terrance Santana MD MICROBIOLOGY - GENER AL ORDERABLES [facility] [place] [address] * COVID-19 PCR (09/02/2019 1:41 AM EDT) SARS-CoV-2 RNA (Rapid) Not Detected Not Detected [facility] Comment: This result should be [...] using the [employer]plex[employer] COVID-19 Direct Assay by [employer] as authorized by the FDA issued Emergency [...] Department of Pathology and Laboratory Medicine at [facility], certified under the Clinical Laboratory Improvement [...] Information for Healthcare Professionals (https://www.cdc.gov/coronavirus/2019-ncov/hcp/index.html). SARS-CoV-2 Source [employer] Swab MA [facility] Nasopharyngeal swab (specimen) 09/02/2019 1:41 AM EDT 09/02/2019 2:13 AM EDT Comment:Symptoms->Surveillan ce Narrative Resulting Agency Comment Spec In Lab Terrance Meade MD MICROBIOLOGY - GEN ERAL ORDERABLES Performing Organization Address [facility]/ZIP Co de Phone Number [facility] [place] [address] * (ABNORMAL) Urinalysis Microscopic Exam (09/01/2019 11:33 PM EDT) RBC, Urine 5(H) 0 - 4 /HPF [facility] WBC, Urine 1 0 - 5 /HPF [facility] Squamous Epithelial Cells Raw Data, Urine 1 <=4 /HPF [facility] Hyaline Casts, Urine 3(H) 0 - 2 /LPF [facility] Urine specimen obtained by clean catch procedure (specimen) 09/01/2019 11:33 PM EDT 09/01/2019 11:43 PM EDT Narrative Resulting Agency Comment Spec In Lab Ministerio Kline MD URINE ORDERABLES Performing Organization Address [facility]/ZIP Co de Phone Number [facility] [place] [address] * (ABNORMAL) Urinalysis with reflex Culture (09/01/2019 11:33 PM EDT) Glucose, Urine Dipstick Negative Negative mg/dL [facility] Protein, Urine Dipstick 30(A) Negative mg/dL [facility] Bilirubin, Urine Dipstick Negative Negative mg/dL [facility] Comment: Clinical correlation required for positive Urine Bilirubin results as false positive may occur with some drugs and drug related products. If a false positive is suspected a serum total bilirubin should be considered if clinically indicated. Urobilinogen, Urine Dipstick Normal Normal mg/dL [facility] pH, Urn (dipstick) 5.0 5.0 - 8.0 [facility] Blood, Urine Dipstick Trace(A) Negative mg/dL [facility] Ketone, Urine Dipstick Trace(A) Negative mg/dL [facility] Nitrite, Urine Dipstick Negative Negative [facility] Leukocytes, Urine Dipstick Negative Negative [facility] Appearance, Urine Dipstick Clear Clear [facility] Specific [place] Urine Automated >=1.030(A) 1.006 - 1.030 [facility] Color, Urine Dipstick Yellow Yellow [facility] Reflex to Culture No [facility] Urine specimen obtained by clean catch procedure (specimen) 09/01/2019 11:33 PM EDT 09/01/2019 11:43 PM EDT Narrative Resulting Agency Comment Spec In Lab Sebastian Chappell MD URINE ORDERABLES [facility] [place] [address] * (ABNORMAL) BLOOD GAS 2 VENOUS (09/01/2019 10:18 PM EDT) pH, Venous 7.45(H) 7.32 - 7.42 [facility] PCO2, Venous 42 41 - 51 mmHg [facility] PO2, Venous 51(H) 25 - 40 mmHg [facility] Bicarbonate, Venous 28.1 mmol/L [facility] Base Excess, Venous 4.0 mmol/L [facility] Hgb Blood Gas 13.3 11.7 - 15.5 gm/dL [facility] Oxyhemoglobin, Venous 85.5 % [facility] Carboxyhemoglob in, Venous 0.1 % [facility] Comment: Nonsmokers: 0.5-1.5% COHB Smokers: Variable, but usually less than 10% Toxic: 20-30% COHB Lethal: Greater than 60% COHB Methemoglobin, Venous 0.4 <=1.5 % [facility] Na Whole Blood 133(L) 135 - 145 mmol/L [facility] K Whole Blood 4.1 3.5 - 5.0 mmol/L [facility] Comment: Please note: Patients with WBC >100,000 may have falsely elevated Potassium levels. Contact the Clinical Chemistry Laboratory if there are any questions. ICa Whole Blood 1.17 1.15 - 1.33 mmol/L [facility] Comment: Note: ??Total bilirubin higher than 20 mg/dL may lead to falsely low ionized calcium. CL Whole Blood 97(L) 98 - 107 mmol/L [facility] Gluc Whole Bld 108 65 - 199 mg/dL [facility] Comment:Diabetes: >=200 mg/d L plus symptoms Lactate WB 1.4 0.5 - 2.2 mmol/L [facility] Blood Gas Source Venous [facility] Blood specimen (specimen) 09/01/2019 10:18 PM EDT 09/01/2019 10:18 PM EDT Amrik Zapata MD POINT OF CARE LIDIA T ORDERABLES [facility] [place] [address] * Scan, Peripheral Blood (09/01/2019 10:08 PM EDT) Plat estimate Normal [facility] RBC Morphology Normal [facility] Blood specimen (specimen) 09/01/2019 10:08 PM EDT 09/01/2019 10:18 PM EDT Narrative Resulting Agency Comment Spec In Lab Ministerio Kline MD HEMATOLOGY ORDERABLE S [facility] [place] [address] * Gold Tube HOLD (09/01/2019 10:08 PM EDT) Gold Hold Sample in lab. [facility] Blood specimen (specimen) Venous Draw / Unknown 09/01/2019 10:08 PM EDT 09/01/2019 10:19 PM EDT Ministerio Kline MD CHEMISTRY ORDERABLES Performing Organization Address City/[facility] Co de Phone Number [facility] [place] [address] * (ABNORMAL) Differential, Automated (09/01/2019 10:08 PM EDT) Neutrophil % 59.8 % [facility] Neutrophil Absolute 3.26 1.70 - 6.10 x10(3)/mc L [facility] Lymph % 17.9 % [facility] Lymphocytes Abs 1.0 0.9 - 3.2 x10(3)/mc L [facility] Monocyte % 14.8 % [facility] Monocyte Abs 0.8 0.3 - 0.9 x10(3)/mc L [facility] Eos % 0.0 % [facility] Eosinophils Abs 0.0 0.0 - 0.4 x10(3)/mc L [facility] Basophil % 0.4 % [facility] Baso Absolute 0.0 0.0 - 0.1 x10(3)/mc L [facility] Immature Gran % 7.10 % [facility] Comment: Immature granulocytes(IG's)percentage and absolute count will include metamyelocytes, myelocytes, and promyelocytes. Blood smears from CBCs yielding IG's will be scanned manually for concordance. If this scan disagrees with the automated IG or if promyelocytes are noted, a manual differential will be performed. Immature Gran Absolute 0.39(H) 0.00 - 0.04 x10(3)/mc L [facility] Blood specimen (specimen) 09/01/2019 10:08 PM EDT 09/01/2019 10:18 PM EDT Narrative Resulting Agency Comment Spec In Lab Ministerio Kline MD HEMATOLOGY ORDERABLE S [facility] [place] [address] * (ABNORMAL) Hemogram (09/01/2019 10:08 PM EDT) White Blood Cell 5.5 4.0 - 9.5 x10(3)/mc L [facility] Red Blood Cell 4.02 4.00 - 5.21 x10(6)/mc L [facility] Hemoglobin 11.2(L) 11.7 - 15.5 gm/dL [facility] Hematocrit 35.4(L) 35.7 - 45.8 % [facility] Mean Cell Volume 88.1 82.6 - 94.4 fL [facility] Mean Cell Hemoglobin 27.9 27.1 - 32.0 pg [facility] Mean Cell Hemoglobin Concentration 31.6(L) 31.7 - 35.0 gm/dL [facility] Platelet 308 145 - 357 x10(3)/mc L [facility] RDW Standard Deviation 45.1 37.0 - 46.0 fL [facility] RDW coefficient of variation 13.9 11.5 - 14.1 % [facility] Mean Platelet Volume 9.8 7.6 - 12.9 fL [facility] NRBC% auto 0.0 % [facility] NRBC Absolute 0.000 0.000 - 0.000 x10(3)/mc L [facility] Blood specimen (specimen) 09/01/2019 10:08 PM EDT 09/01/2019 10:18 PM EDT Narrative Resulting Agency Comment Spec In Lab Ministerio Kline MD HEMATOLOGY ORDERABLE S Performing Organization Address City/[facility]/ZIP Co de Phone Number [facility] [place] [address] * APTT (09/01/2019 10:08 PM EDT) Partial Thromboplastin Time 31 25 - 37 sec [facility] Comment: The PTT is NOT appropriate for heparin monitoring. Use the Anti-Xa level for heparin monitoring (HEP UFH) or LMWH monitoring (HEP LMW). A PTT less than 37 seconds generally indicates adequate hemostasis. Blood specimen (specimen) 09/01/2019 10:08 PM EDT 09/01/2019 10:18 PM EDT Narrative Resulting Agency Comment Spec In Lab Sebastian Chappell MD HEMATOLOGY ORDERABLE S Performing Organization Address [facility] Co de Phone Number [facility] [place] [address] * Blood culture (09/01/2019 10:08 PM EDT) Blood Culture No growth at 5 days. [facility] Blood specimen (specimen) 09/01/2019 10:08 PM EDT 09/01/2019 10:29 PM EDT Comment:LFA Narrative Resulting Agency Comment Spec In Lab Sebastian Chappell MD MICROBIOLOGY - BLOOD ORDERABLES Performing Organization Address [facility] Co de Phone Number [facility] [place] [address] * Blood culture (09/01/2019 10:08 PM EDT) Blood Culture No growth at 5 days. [facility] Blood specimen (specimen) 09/01/2019 10:08 PM EDT 09/01/2019 10:28 PM EDT Comment:LAC Narrative Resulting Agency Comment Spec In Lab Sebastian Chappell MD MICROBIOLOGY - BLOOD ORDERABLES Performing Organization Address [facility]/ZIP Co de Phone Number [facility] [place] [address] * (ABNORMAL) Prothrombin Time (09/01/2019 10:08 PM EDT) Prothrombin Time 13.6(H) 9.4 - 12.5 sec [facility] International Normalization Ratio 1.2 [facility] Comment: An INR <2.0 indicates [...] MD HEMATOLOGY ORDERABLE S Performing Organization Address [facility] Co de Phone Number [facility] [place] [address] * Lipase (09/01/2019 10:08 PM EDT) Lipase 30 0 - 60 unit/L [facility] Blood specimen (specimen) 09/01/2019 10:08 PM EDT 09/01/2019 10:18 PM EDT Narrative Resulting Agency Comment Spec In Lab Sebastian Chappell MD CHEMISTRY ORDERABLES Performing Organization Address [facility]/ZIP Co de Phone Number [facility] [place] [address] * (ABNORMAL) Hepatic Function Panel (09/01/2019 10:08 PM EDT) [facility] Protein, Total 7.3 6.1 - 8.0 gm/dL [facility] Albumin 3.5 3.2 - 5.2 gm/dL [facility] Aspartate Aminotransferase 25 0 - 30 unit/L [facility] Alanine Aminotransferase 44(H) 0 - 30 unit/L [facility] Alkaline Phosphatase 112(H) 35 - 105 unit/L [facility] Bilirubin, Total 0.3 0.2 - 1.3 mg/dL [facility] Bilirubin, Direct 0.1 0.0 - 0.3 mg/dL [facility] Blood specimen (specimen) 09/01/2019 10:08 PM EDT 09/01/2019 10:18 PM EDT Narrative Resulting Agency Comment Spec In Lab Sebastian Chappell MD CHEMISTRY ORDERABLES Performing Organization Address City/State/[facility] Co de Phone Number [facility] [place] [phone] * (ABNORMAL) Basic Metabolic Panel (non-fasting) (09/01/2019 10:08 PM EDT) [facility] Glucose 117 65 - 199 mg/dL [facility] Comment:Diabetes: >=200 mg/d L plus symptoms Blood Urea Nitrogen 10 8 - 18 mg/dL [facility] Creatinine 0.67(L) 0.70 - 1.20 mg/dL [facility] Sodium 134(L) 135 - 145 mmol/L [facility] Potassium 4.0 3.5 - 5.0 mmol/L [facility] Comment: Please note: ??Patients with WBC >100,000 may have falsely elevated Potassium levels. ??For accurate Potassium quantification in these patients send serum separator tube (gold top) for subsequent determinations. ??Contact the Clinical Chemistry Laboratory if there are any questions. Chloride 94(L) 98 - 107 mmol/L [facility] Carbon Dioxide 27 22 - 31 mmol/L [facility] [facility] Anion Gap 13 5 - 15 mmol/L [facility] Calcium 8.8 8.5 - 10.5 mg/dL [facility] Est Glomerular Filtration Rate 91 >=60 mL/min/1. 73 m?? [facility] Comment: The eGFR was calculated using the CKD-EPI equation. As with all creatinine based estimates of kidney function, eGFR values calculated with the CKD-EPI equation are not accurate in patients with acute kidney failure, extremes of body mass or the acutely ill. [email or web address]/[email or web address] eGFR 105 >=60 mL/min/1. 73 m?? [facility] Comment: The eGFR was calculated using the CKD-EPI equation. As with all creatinine based estimates of kidney function, eGFR values calculated with the CKD-EPI equation are not accurate in patients with acute kidney failure, extremes of body mass or the acutely ill. [email or web address]/[email or web address] Blood specimen (specimen) 09/01/2019 10:08 PM EDT 09/01/2019 10:18 PM EDT Narrative Resulting Agency Comment Spec In Lab Sebastian Chappell MD CHEMISTRY ORDERABLES Performing Organization Address [facility] Co de Phone Number [facility] [place] [address] * Film Library- Storage Only CT Abdomen & Pelvis (09/01/2019 7:57 PM EDT) Narrative [facility] - 09/01/2019 7:57 PM EDT This exam is auto-finalizing. It's purpose is for storage only. Yola Oliveros MD IMG FILM LIBRARY ORD ERABLES Performing Organization Address [facility] Co de Phone Number [place], [place] documented in this encounter Visit Diagnoses [...] first. documented in this encounter Care Teams Specialty Manufacturing Supervisor Relationship Specialty Start Date End Date Julia Chatterjee MD [facility] KINA FELIZ [facility] [address] [place] [address] PCP - General 01/31/10 documented as of this encounter
--- OUTSIDE RECORDS SUMMARY | 2023-10-24 02:35 | XMS_ITS | Encounter Summary ---
Author Organization [facility] [place] [address] Care Team Providers Care Spacer Type Bar And Segment Name Role Phone Julia Chatterjee MD Primary Care Provider [phone] Reason for Referral * Consultation (Routine) - Duplicate Referral Specialty Diagnoses / Procedures Referred By Contact Referred To Contact Infectious Diseases Diagnoses Hepatic abscess Bacteroides fragilis Infection due to Peptostreptococcus species Actinomyces infection Briana King [facility] [place] [address] Briana King [facility] [place] [address] Referral ID Status Reason Start Date Expiration Date Visits Requested Visits Authorized [id number] Duplicate Referral Assume Subset of Care 09/07/2019 09/06/2020 1 1 * Diagnostic Test (Routine) - Closed Specialty Diagnoses / Procedures Referred By Contac t Referred To Contact Radiology Diagnoses Hepatic abscess Procedures IR Drain Check/Change/Remove Barrett Malagon [facility] [place] [address] [facility] [place] [place] [address] Referral ID Status Reason Start Date Expiration Date V isits Requested Visits Authorized [id number] Closed Specialty Service Requested 09/03/2019 03/04/2021 1 1 Reason for Visit * Reason Comments Fever hepatic abscess * Auth/Cert Specialty Diagnoses / Procedures Referred By Contac t Referred To Contact Diagnoses Hepatic abscess Referral ID Status Reason Start Date Expiration Date Visits Re quested Visits Authorized [id number] 1 1 Encounter Details Date Type Department Care Team (Latest Contact Info) Description 09/01/2019 9:42 PM EDT - 09/07/2019 5:18 PM EDT Hospital Encounter [facility] [address] [place] [address] Amrik Zapata MD [facility] [place] [address] [place] [address] [place] [address] [place] [address] Hepatic abscess (Primary Dx); Bacteroides fragilis; Infection [...] Leti Parry Patient Age: 68 y.o. Language: Macedonian Race: White Ethnicity: Not nor Admit date: 09/01/2019 Discharge date and time: 09/07/2019 at 2PM Attending Physician: Terrance Santana MD Discharge Physician: Terrance Santana MD Follow-up Recommendations for Providers: Patient has hepatic abscess drain with suction-bulb in place. She is scheduled for drain-check F/U with [facility] radiology on October 02. Please monitor for [...] please contact your inpatient physician through the [facility] Director Of Student Aid . Issues afterhours and on weekends will [...] in 4 weeks for fluoroscopic drain check. Director Of Student Aid(s): Resident/Fellow: Johan Hernandez M.D. Attending: Terrance Gunter [...] - You have a follow-up appointment with [facility] radiology for a drain check on October 02. Please make sure to do flushes as outlined on discharge instructions and keep the area around the suction bulb clean. If you develop fevers, discharge around the drain site, or worsening pain please see your PCP. - You have a follow-up appointment on October 20 with your [facility] hematology team. - Please follow-up with [facility] GI service scheduling to schedule your next [...] is during regular office hours, please call [phone]. If it is after regular office hours, or on weekends or holidays, please call [phone] and ask to speak to the Account Executive Sales Representative insulation worker for Interventional Radiology. XX You have received [...] Dept Phone 10/21/2019 10:00 AM Radha Cooper, PEARL TECHNICIAN; Lee Ann Jay MD Hematology/Oncology at [facility] Arrive at: [facility] door at end of hallway [phone] Future Orders Complete By Expires IR Drain Check/Change/Remove [[id number] Custom] 10/03/2019 (Approximate) 04/03/2020 Process Instructions: Scheduling Instructions: Questions: Where will study be performed?: [facility] Radiology Reason for exam and clinical [...] Recommendation for Post Discharge IV Antibiotic Management [[id number] CPT(R)] As directed Process Instructions: If no progress note charted, please enter Clinical details in comments. Scheduling Instructions: Comments: Please Fax all results to: OPAT Program Infectious Disease Section [facility], [place] [address] FAX: After hours, please contact the Infectious Disease Physician insulation worker at . If this order was signed greater than 72 hours prior to [facility] discharge, please call to confirm the accuracy [...] Briana King DO Referral for Outpatient Antibiotics [[id number] CPT(R)] As directed Process Instructions: Scheduling Instructions: Comments: Flush per OPAT Protocol Questions: Vendor / contact information: [facility] Patient location post discharge: Home Service requested: IV ABX Therapy Start date: Responsible MD post discharge contact info: PCP Referral to Home Health - at DISCHARGE [VVZ1541 CPT(R)] As directed Process Instructions: Scheduling Instructions: Comments: DOCUMENTATION FOR VNA SERVICES (INCLUDING THOSE PATIENTS WITH MEDICARE COVERAGE REQUIRING HOME VNA SERVICES AND/OR HOSPICE SERVICES) PATIENT'S LOCATION: Leti Parry [address] [place] [phone] (home) Cell: Telephone Information: Street Light Lamp Cleaner's Name: Patient In discussion with the attending physician, it is certified that this patient is under their care and that they, or a Nurse Practitioner,Clinical Nurse specialist or Physician Photographic Supervisor who is working directly with them, had [...] assess and continue rehab for managing ADL's. RADIO MESSAGE ROUTER: Assist with ADLS HOME HEALTH CARE AGENCY: [facility] [employer]. PHONE: [phone] FAX: [phone] Start of care: Day of Discharge FOR [...] PCP: MD Sushant Garg [address] / [facility] [address] All A agencies which cover the area of patient's residence have been reviewed, either verbally nadine writing, and patient/family have chosen the home health care agency noted Questions: Agency name and contact information: [facility] [employer] Patient location post discharge: Home What services are requested: Registered Nurse Start date: Responsible MD post discharge contact info: PCP Discharge References/Attachments Surgical Drain Care (Macedonian) PICC (Peripherally Inserted Central Catheter) (Macedonian) * Rizwan Lama - 09/07/2019 11:50 AM EDT Images from the original note were not included. Discharge Summary Patient Name: Leti Parry Patient Age: 68 y.o. Language: Macedonian Race: White Ethnicity: Not nor Admit date: 09/01/2019 Discharge date and time: 09/07/2019 at 2PM Attending Physician: Terrance Santana MD Discharge Physician: Terrance Santana MD Follow-up Recommendations for Providers: Patient has hepatic abscess drain with suction-bulb in place. She is scheduled for drain-check F/U with [facility] radiology on October 02. Please monitor for [...] please contact your inpatient physician through the [facility] Director Of Student Aid . Issues afterhours and on weekends will [...] in 4 weeks for fluoroscopic drain check. Director Of Student Aid(s): Resident/Fellow: Johan Hernandez M.D. Attending: Terrance Gunter [...] is during regular office hours, please call [phone]. If it is after regular office hours, or on weekends or holidays, please call [phone] and ask to speak to the Account Executive Sales Representative insulation worker for Interventional Radiology. XX You have received [...] Dept Phone 10/21/2019 10:00 AM Radha Cooper, JAYLEN; Lee Ann Jay MD Hematology/Oncology at [facility] Arrive at: [facility] door at end of hallway [phone] Future Orders Complete By Expires IR Drain Check/Change/Remove [[id number] Custom] 10/03/2019 (Approximate) 04/03/2020 Process Instructions: Scheduling Instructions: Questions: Where will study be performed?: [facility] Radiology Reason for exam and clinical [...] Recommendation for Post Discharge IV Antibiotic Management [[id number] CPT(R)] As directed Process Instructions: If no progress note charted, please enter Clinical details in comments. Scheduling Instructions: Comments: Please Fax all results to: OPAT Program Infectious Disease Section [facility], [place] [address] FAX: After hours, please contact the Infectious Disease Physician insulation worker at . If this order was signed greater than 72 hours prior to [facility] discharge, please call to confirm the accuracy [...] King DO Discharge References/Attachments Surgical Drain Care (Macedonian) PICC (Peripherally Inserted Central Catheter) (Macedonian) Associated attestation - Terrance Santana MD - [...] is during regular office hours, please call [phone]. If it is after regular office hours, or on weekends or holidays, please call [phone] and ask to speak to the Account Executive Sales Representative insulation worker for Interventional Radiology. XX You have received [...] - You have a follow-up appointment with [facility] radiology for a drain check on October 02. Please make sure to do flushes as outlined on discharge instructions and keep the area around the suction bulb clean. If you develop fevers, discharge around the drain site, or worsening pain please see your PCP. - You have a follow-up appointment on October 20 with your [facility] hematology team. - Please follow-up with [facility] GI service scheduling to schedule your next colonoscopy. - ID service scheduling will call you to set up a follow-up appointment. Please reach out if you are not contacted over the next two weeks. * Attachments The following attachments cannot be sent through Care Everywhere. * Surgical Drain Care (Macedonian) * PICC (Peripherally Inserted Central Catheter) (Macedonian) documented in this encounter Medications at [...] up Note: DONNA Confirmed with Ye From [facility] that patient will be seen 09/08/2019. Hospital teaching was completed with donna pin machine operator of IV supplies will occur to meet patient's need for SOC on Saturday09/08/2019 Infusion Resource Center [phone] * Liyah Rodriguez RN - 09/07/2019 11:06 [...] 09/07/2019 9:08 AM EDT Office of Care Management/Distribution Associate(CM) Home IV Antibiotic Therapy Referral Note. Report [...] Home Health Agency: Patient requested referral to [facility] PHONE: [phone] FAX: [phone] Referrals sent via My e[employer]ee[employer]it App. Home Infusion Vendor: Patient requested referral to: [employer], [place] or Referrals sent via [employer]. Diabetic Status: Patient is not a diabetic [...] been on any therapy who presented to [facility] at the beginning of August with [...] colitis on steroid taper, recent admission to [facility] for colitis c/b E coli bacteremia [...] colitis on steroid taper, recent admission to [facility] for colitis c/b E coli bacteremia [...] midnights or is on the [facility] inpatient only procedure list (status C) due to: Ongoing need forIV antibiotics for hepatic abscess Terrance Santana MD Attending, Hospital Medicine Service Pager #[phone] 09/06/2019 * Terrance Enciso RN - 09/05/2019 [...] Santana MD - 09/05/2019 6:08 PM EDT [facility] Medicine Attending Daily Progress Note Admit Date: 09/01/2019 ( Hospital Day 3 days ) Active Hospital Problems Diagnosis ??? Hepatic abscess Resolved Hospital Problems No resolved problems to display. ID/CC: 68 y.o. 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 Director Of Student Aid(s): Resident/Fellow: Johan Hernandez M.D. Attending: Terrance Gunter [...] colitis on steroid taper, recent admission to [facility] for colitis c/b E coli bacteremia [...] midnights or is on the [facility] inpatient only procedure list (status C) due to: Ongoing need forIV antibiotics for hepatic abscess Terrance Santana MD Attending, Hospital Medicine Service Pager #[phone] 09/05/2019 * Alexis Caro MD - 09/04/2019 [...] Intake/Output Summary (Last 24 hours) at 09/04/2019 5233 Last data filed at 09/04/2019 0649 Gross per 24 hour Intake 705 ml [...] colitis on steroid taper, recent admission to [facility] for colitis c/b E coli bacteremia [...] with PO abx Team Pager( Coverage 01/10): #[phone] PCP: Julia Chatterjee MD [phone] Attestation: IPI Certification I certify that I am a D-H credentialed attending provider with admitting privileges and that the patient meets or has met medical necessity to require an inpatient IPI level of care meeting a minimumof two midnights or is on the [facility] inpatient only procedure list (status C) due [...] 4:43 PM EDT OFFICE OF CARE MANAGEMENT Distribution Associate Follow-up Note Discussed plan of care with Primary team and Nursing to assess continuing care and discharge needs. LOS: 2d Primary Insurance: MEDICARE Secondary Insurance: [facility] [place] Pt continues to require hospitalization for hepatic abscess Ongoing Issues: ID Following - awaiting recommendation IVABX 09/03 PICC placement held -possible transition to oral ABX Awaiting cultures/sensitivities Functional Status Prior to Admission: Independent Discharge plan: home when medically ready Transportation: Distribution Associate to follow with team and family to assist with discharge needs when patient ready for discharge. Liyah Rodriguez SPREAD CUTTER, Distribution Associate Pgr. [phone] * Johan Hernandez MD - [...] contact with any questions Johan Hernandez MD Account Executive Sales Representative * Jeimy Nicholas RN - 09/03/2019 11:30 [...] colitis on steroid taper, recent admission to [facility] for colitis c/b E coli bacteremia [...] Anticipated Disposition: 09/03/2019 Team Pager( Coverage 01/10): #[phone] PCP: Julia Chatterjee MD [phone] Attestation: IPI Certification I certify that I am a D-H credentialed attending provider with admitting privileges and that the patient meets or has met medical necessity to require an inpatient IPI level of care meeting a minimumof two midnights or is on the [facility] inpatient only procedure list (status C) due [...] washospitalized in the beginning of August at [facility] with worsening diarrhea/painful defecation/fevers, found to [...] access tract was dilated and a 10 Syrian locking pigtail drainage catheter was placed. Post [...] washospitalized in the beginning of August at [facility] with worsening diarrhea/painful defecation/fevers to 102.5 [...] culture sensitivity data on E. Coli from [facility] - Continue prednisone at 20 mg [...] Dr. Castro. Hesham Dobson MD Gastroenterology Fellow #[phone] I have seen and evaluated the patient [...] colitis on steroid taper, recent admission to [facility] for colitis c/b E coli bacteremia [...] Anticipated Disposition: 09/03/2019 Team Pager( Coverage 01/10): #[phone] PCP: Julia Chatterjee MD [phone] Attestation: IPI Certification I certify that I am a D-H credentialed attending provider with admitting privileges and that the patient meets or has met medical necessity to require an inpatient IPI level of care meeting a minimumof two midnights or is on the [facility] inpatient only procedure list (status C) due [...] of : 1950 AGE: 68 y.o. Address: [address] [address] (home) Mobile: Telephone Information: Referring Provider: Self [...] ASPIRATION W/BX THROUGH SAME INCISION/SITE Right 01/08/2017 ([facility]) BONE MARROW ASP PERFORMED W/BX THRU BX INCISION (WRVU 0.16) performed by Lee Ann Jay MD at [facility] OSC ??? PRO BONE MARROW BX, NEEDLE/TROCAR Right 01/08/2017 ([facility]) BONE MARROW,BIOPSY (WRVU 1.37) performed by Lee Ann Jay MD at [facility] OSC ??? PRO COLONOSCOPY, BIOPSY 07/05/2011 COLONOSCOPY FLEXIBLE, WITH BX performed by MARY CASTRO at [facility] ENDOSCOPY ??? PRO COLONOSCOPY, REMV LESN, SNARE 07/05/2011 COLONOSCOPY, POLYPECTOMY, REMOVAL LESION BY SNARE performed by MARY CASTRO at [facility] ENDOSCOPY Date/Procedure Meds given/comments 09/02/19 CT [...] in this encounter H&P Notes * Johan eHrnandez MD - 09/02/2019 11:16 AM EDT INTERVENTIONAL [...] performed by Lee Ann Jay MD at [facility] OSC ??? PRO BONE MARROW BX, NEEDLE/TROCAR Right 01/08/2017 ([facility]) BONE MARROW,BIOPSY (WRVU 1.37) performed by Lee Ann Jay MD at [facility] OSC ??? PRO COLONOSCOPY, BIOPSY 07/05/2011 COLONOSCOPY FLEXIBLE, WITH BX performed by MARY CASTRO at [facility] ENDOSCOPY ??? PRO COLONOSCOPY, REMV LESN, SNARE 07/05/2011 COLONOSCOPY, POLYPECTOMY, REMOVAL LESION BY SNARE performed by MARY CASTRO at [facility] ENDOSCOPY Medications: No current facility-administered medications [...] injection4-8 mg, 4-8 mg, Intravenous, Q8H PRN, Terranec Santana MD ??? melatonin tablet 3 mg, [...] Santana MD - 09/01/2019 11:30 PM EDT [facility] Medicine Serivce Inpatient Admission Note Problem List: There are no hospital problems to display for this patient. Active Non-Hospital Problems Diagnosis ??? Ulcerative colitis ??? Leukopenia ID: 68 y.o. 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 Review of records. Discharge summary from [facility]. Patient admitted 08/14 to 08/16 for [...] performed by Lee Ann Jay MD at [facility] O[facility] ??? PRO BONE MARROW BX, NEEDLE/TROCAR Right 01/08/2017 ([facility]) BONE MARROW,BIOPSY (WRVU 1.37) performed by Lee Ann Jay MD at [facility] OSC ??? PRO COLONOSCOPY, BIOPSY 07/05/2011 COLONOSCOPY FLEXIBLE, WITH BX performed by MARY CASTRO at [facility] ENDOSCOPY ??? PRO COLONOSCOPY, REMV LESN, SNARE 07/05/2011 COLONOSCOPY, POLYPECTOMY, REMOVAL LESION BY SNARE performed by MARY CASTRO at [facility] ENDOSCOPY Prior To Admission Medications: (Not [...] file Gets together: Not on file Attends mu-ism service: Not on file Active member of [...] colitis on steroid taper, recent admission to [facility] for colitis c/b E coli bacteremia [...] Santana MD Attending, Hospital Medicine Service Pager #[phone] until 0800 09/0109/01/2019 IPI Certification I certify that I am a D-H credentialed attending provider with admitting privileges and that the patient meets or has met medical necessity to require an inpatient IPI level of care meeting a minimumof two midnights or is on the [facility] inpatient only procedure list (status C) due [...] to the planned procedure. Hand Hygiene: The field account manager did perform hand hygiene prior to line insertion. Catheter type: PICC Lot number: [id number] Procedure Technique: Skin was prepped with chlorhexidine. [...] told by her physician to [facility] to [facility] to be admitted to the [...] on phone: None Gets together: None Attends mu-ism service: None Active member of club or [...] notes in chart). Pt driving down from [facility]. 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 Now has hepatic abscess. In [facility] with ecoli bacteremia last week. finished abx and had persistent fevers. Worked with PCP as outpatient and got CT - shows hepatic abscess.Spiking fevers at home to 102 this am. Not currently on abx - finished course of cipro. Will need admission. Jasmin Lara MD 09/01/19 1811 documented in this encounter Miscellaneous Notes * Plan of Care - Taniya Nevarez RN - 09/07/2019 9:56 AM EDT Problem: Health Knowledge, Opportunity to Enhance (Adult,NICU,Hammond,Obstetrics,Pediatric) Goal: Knowledgeable about Health Subject/Topic Patient will demonstrate the desired outcomes by discharge/transition of care. Outcome: Outcome (s) achieved Date Met: 09/07/19 09/07/19 0927 Health Knowledge, Opportunity to Enhance (Adult,NICU,Hammond,Obstetrics,Pediatric) Knowledgeable about Health Subject/Topic achieves outcome Peripherally Inserted Central Catheter (PICC) Teaching Sheet Peripherally inserted central catheters (ewco-ug-zuyd) (PICC) are used when you need IV [...] midline catheter? PICC lines are used for detention treatments. PICC lines may be used for [...] can be set up via the nurse Distribution Associate to help you. What are possible complications [...] Vascular Access Device Selection, Insertion, and Management, [employer] Systems 12/13. A Review of the Efficacy, Safety, Use, and Administration of [employer], [employer] 2005 * Plan of Care - [...] Surveillance [continuous indirect monitoring]: Room near nurses [facility] Patient-specific fall prevention interventions for sensory deficits [...] Outcome: Ongoing (Interventions Implemented as Appropriate) 09/04/19 4069 Plan of Care Review Progress progress towards [...] (on steroid taper). She was admitted to [facility] earlier this month for colitis c/b [...] Fluid Culture, Aerobic & Anaerobic Abdominal Fluid [[id number]] Collected: 09/02/19 1300 Lab Status: Preliminary result Specimen: Abdominal Fluid Updated: 09/05/19 141 Body Fluid Culture, Aerobic [[id number]] (Abnormal) Collected: 09/02/19 1300 Lab Status: Preliminary result Specimen: Abdominal Fluid Updated: 09/05/19 141 Body Fluid Culture Few Actinomyces species Gram Stain -- Many Neutrophils seen Many Gram Positive Cocci seen Few Gram Negative Rods seen Rare Gram Positive Rods seen Anaerobic Culture [[id number]] (Abnormal) Collected: 09/02/19 1300 Lab Status: Preliminary result Specimen: Abdominal Fluid Updated: 09/05/19 1251 Anaerobic Culture -- Moderate Clostridium species, not C perfringens Moderate Bacteroides fragilis Group Moderate Peptostreptococcus species COVID-19 PCR [[id number]] Collected: 09/02/19 0141 Lab Status: Final result [...] using the Simplexa COVID-19 Direct Assay by [employer] as authorized by the FDA issued Emergency [...] of Pathology and Laboratory Medicine at [facility], certified under the Clinical Laboratory Improvement Amendments [...] Information for Healthcare Professionals (https://www.cdc.gov/coronavirus/2019-ncov/hcp/index.html). SARS-CoV-2 Source SAFE DEPOSIT CLERK Swab Blood culture [[id number]] Collected: 09/01/192207 Lab Status: Preliminary result Specimen: Blood Updated: 09/04/192300 Blood Culture No growth at 3 days. Blood culture [[id number]] Collected: 09/01/192207 Lab Status: Preliminary result Specimen: [...] day [facility] Medicine Team pager #[phone] Personal pager #[phone] Associated attestation - Terrance Santana MD - 09/06/2019 1:06 PM EDT I agree with the above note written by BOB Cao. Please see my additional, separate notefor any changes or amendments. Terrance Santana MD * Plan of Care - Mavis Ahuja RN - 09/04/2019 10:45 PM EDT Problem: Patient Care Overview Goal: Plan of Care Review Outcome: Ongoing (Interventions Implemented as Appropriate) 09/04/19 3446 Plan of Care Review Progress progress towards [...] hepatic abscess. Notably, patient was admitted to [facility] earlier this month in the setting [...] LIVER 09/02/2019 CT Guided Aspiration Liver 09/02/2019 [facility] RAD CAT SCAN ??? PRO BONE MARROW ASPIRATION W/BX THROUGH SAME INCISION/SITE Right 01/08/2017 ([facility]) BONE MARROW ASP PERFORMED W/BX THRU BX INCISION (WRVU 0.16) performed by Lee Ann Jay MD at [facility] OSC ??? PRO BONE MARROW BX, NEEDLE/TROCAR Right 01/08/2017 ([facility]) BONE MARROW,BIOPSY (WRVU 1.37) performed by Lee Ann Jay MD at [facility] ??? PRO COLONOSCOPY, BIOPSY 07/05/2011 COLONOSCOPY FLEXIBLE, WITH BX performed by MARY CASTRO at [facility] ENDOSCOPY ??? PRO COLONOSCOPY, REMV LESN, SNARE 07/05/2011 COLONOSCOPY, POLYPECTOMY, REMOVAL LESION BY SNARE performed by MARY CASTRO at [facility] ENDOSCOPY ??? PRO SIGMOIDOSCOPY, DIAGNOSTIC N/A 09/02/2019 FLEXIBLE SIGMOIDOSCOPY performed by Mary Castro MD at [facility] ENDOSCOPY Medications: ??? oxyCODONE (Roxicodone) tablet [...] Family History: Noncontributory Social History: Lives in [facility] with her 6 drinks per week Nonsmoker No illicits No pets Travel - to [place] in Apr, to [place] in May No camping, no suspicious food [...] Fluid Culture, Aerobic & Anaerobic Abdominal Fluid [[id number]] Collected: 09/02/19 1300 Lab Status: Preliminary result Specimen: Abdominal Fluid Updated: 09/03/19 1409 Body Fluid Culture, Aerobic [[id number]] (Abnormal) Collected: 09/02/19 1300 Lab Status: Preliminary result Specimen: Abdominal Fluid Updated: 09/03/19 0807 Body Fluid Culture No growth to date. Gram Stain -- Many Neutrophils seen Many Gram Positive Cocci seen Few Gram Negative Rods seen Rare Gram Positive Rods seen Anaerobic Culture [[id number]] Collected: 09/02/19 1300 Lab Status: Preliminary result Specimen: Abdominal Fluid Updated: 09/03/19 1409 Anaerobic Culture No anaerobic organisms isolated to date COVID-19 PCR [[id number]] Collected: 09/02/19 0141 Lab Status: Final result [...] using the Simplexa COVID-19 Direct Assay by [employer] as authorized by the FDA issued Emergency [...] of Pathology and Laboratory Medicine at [facility], certified under the Clinical Laboratory Improvement Amendments [...] Information for Healthcare Professionals (https://www.cdc.gov/coronavirus/2019-ncov/hcp/index.html). SARS-CoV-2 Source SAFE DEPOSIT CLERK Swab Blood culture [[id number]] Collected: 09/01/192207 Lab Status: Preliminary result Specimen: Blood Updated: 09/03/192300 Blood Culture No growth at 2 days. Blood culture [[id number]] Collected: 09/01/192207 Lab Status: Preliminary result Specimen: [...] therapy for her abscess. During admission to [facility], there was CT evidence of a [...] initial CT imaging. Her blood cultures at [facility] had grown E. Coli and strep [...] from blood cultures during previous admission to [facility] - hold PICC placement, as it [...] been on any therapy and presented to [facility] at the beginning of August with [...] cover gram positive, gram negative and anaerobes. Brinaa King DO, MPH Infectious Disease * Plan [...] as Appropriate) 09/03/19 0909 09/03/19 1147 09/03/19 1382 Daily Care Interventions Self-Care Promotion -- -- [...] (on steroid taper). She was admitted to [facility] earlier this month for colitis c/b [...] Fluid Culture, Aerobic & Anaerobic Abdominal Fluid [[id number]] Collected: 09/02/19 1300 Lab Status: Preliminary result Specimen: Abdominal Fluid Updated: 09/03/19 1409 Body Fluid Culture, Aerobic [[id number]] (Abnormal) Collected: 09/02/19 1300 Lab Status: Preliminary result Specimen: Abdominal Fluid Updated: 09/03/19 0807 Body Fluid Culture No growth to date. Gram Stain -- Many Neutrophils seen Many Gram Positive Cocci seen Few Gram Negative Rods seen Rare Gram Positive Rods seen Anaerobic Culture [[id number]] Collected: 09/02/19 1300 Lab Status: Preliminary result Specimen: Abdominal Fluid Updated: 09/03/19 1409 Anaerobic Culture No anaerobic organisms isolated to date COVID-19 PCR [[id number]] Collected: 09/02/19 0141 Lab Status: Final result [...] using the Simplexa COVID-19 Direct Assay by [employer] as authorized by the FDA issued Emergency [...] of Pathology and Laboratory Medicine at [facility], certified under the Clinical Laboratory Improvement Amendments [...] Information for Healthcare Professionals (https://www.cdc.gov/coronavirus/2019-ncov/hcp/index.html). SARS-CoV-2 Source SAFE DEPOSIT CLERK Swab Blood culture [[id number]] Collected: 09/01/192207 Lab Status: Preliminary result Specimen: Blood Updated: 09/03/192300 Blood Culture No growth at 2 days. Blood culture [[id number]] Collected: 09/01/192207 Lab Status: Preliminary result Specimen: [...] Rizwan Lama, MS4 Hospital Medicine Team pager #[phone] Personal pager #[phone] * Plan of Care - Marylu Shah [...] (on steroid taper). She was admitted to [facility] earlier this month for colitis c/b [...] Fluid Culture, Aerobic & Anaerobic Abdominal Fluid [[id number]] Collected: 09/02/19 1300 Lab Status: In process Specimen: Abdominal Fluid Updated: 09/03/19 0807 Body Fluid Culture, Aerobic [[id number]] (Abnormal) Collected: 09/02/19 1300 Lab Status: Preliminary result Specimen: Abdominal Fluid Updated: 09/03/19 0807 Body Fluid Culture No growth to date. Gram Stain -- Many Neutrophils seen Many Gram Positive Cocci seen Few Gram Negative Rods seen Rare Gram Positive Rods seen COVID-19 PCR [[id number]] Collected: 09/02/19 0141 Lab Status: Final result [...] using the Simplexa COVID-19 Direct Assay by [employer] as authorized by the FDA issued Emergency [...] of Pathology and Laboratory Medicine at [facility], certified under the Clinical Laboratory Improvement Amendments [...] Information for Healthcare Professionals (https://www.cdc.gov/coronavirus/2019-ncov/hcp/index.html). SARS-CoV-2 Source SAFE DEPOSIT CLERK Swab Blood culture [[id number]] Collected: 09/01/192207 Lab Status: Preliminary result Specimen: Blood Updated: 09/02/192300 Blood Culture No growth at 1 day. Blood culture [[id number]] Collected: 09/01/192207 Lab Status: Preliminary result Specimen: [...] home in 2 days Rizwan Lama MS4 [facility] Medicine Team pager #[phone] Personal pager #[phone] * Plan of Care - Sabrina Castro RN - 09/03/2019 12:26 AM EDT Problem: Patient Care Overview Goal: Plan of Care Review Outcome: Ongoing (Interventions Implemented as Appropriate) 09/02/19 0809/02/19 2481 Plan of Care Review Progress progress toward [...] (on steroid taper). She was admitted to [facility] earlier this month for colitis c/b [...] Fluid Culture, Aerobic & Anaerobic Abdominal Fluid [[id number]] Collected: 09/02/19 1300 Lab Status: In process Specimen: Abdominal Fluid Updated: 09/02/19 152 Body Fluid Culture, Aerobic [[id number]] (Abnormal) Collected: 09/02/19 1300 Lab Status: Preliminary result Specimen: Abdominal Fluid Updated: 09/02/19 152 Gram Stain -- Many Neutrophils seen Many Gram Positive Cocci seen Few Gram Negative Rods seen Rare Gram Positive Rods seen COVID-19 PCR [[id number]] Collected: 09/02/19 0141 Lab Status: Final result [...] using the Simplex[employer] COVID-19 Direct Assay by [employer] as authorized by the FDA issued Emergency [...] of Pathology and Laboratory Medicine at [facility], certified under the Clinical Laboratory Improvement Amendments [...] Information for Healthcare Professionals (https://www.cdc.gov/coronavirus/2019-ncov/hcp/index.html). SARS-CoV-2 Source SAFE DEPOSIT CLERK Swab Imaging/Studies: CT A/P (08/31): showed R [...] Rizwan Lama MS4 Hospital Medicine Team pager #[phone] Personal pager #[phone] * Consult Note - Mary Castro MD [...] hospitalized in the beginning of August at [facility] with worsening diarrhea/painful defecation/fevers to 102.5 found to have E.coli bacteremia and L sided colitis on CT - discharged on PO antibiotics and Prednisone, had been recovering well but now developed worsening fevers again with imaging showing an new R hepatic abscess. She had seen Dr. Oliveros in GI telehealth on 08/17 after her hospitalization at [facility], plan was to quick taper Prednisone [...] file Gets together: Not on file Attends mu-ism service: Not on file Active member of [...] washospitalized in the beginning of August at [facility] with worsening diarrhea/painful defecation/fevers to 102.5 [...] Dr. Castro. Hesham Dobson MD Gastroenterology Fellow #[phone] I have seen and evaluated the patient [...] colitis on steroid taper, recent admission to [facility] for colitis c/b E coli bacteremia [...] Past 30 Days: Yes patient admitted to [facility] 08/14-08/16. Patient returned toED on 08/27. [...] Montez would be surrogate decision maker per [place] surrogate decision making law. Any patient receiving care at [facility] must abide by [place] law. The hierarchy for surrogate decision making [...] (i) The agent with financial power of energy attorney or a conservator appointed in accordance [...] Health/Prescription Coverage: Primary Insurance: MEDICARE Secondary Insurance: [employer] [facility] Prescription Coverage: Yes through [facility] Preferred Pharmacy: [facility] Other: N/A Primary Care Provider: Julia Chatterjee MD [phone] Patient/Caregiver Goals of Treatment: To be 100% [...] colitis on steroid taper, recent admission to [facility] for colitis c/b E coli bacteremia tx'd with cipro who has had ongoing fevers and found to have hepatic abscess. Patient is independent with ADLs/IADLs and lives with a supportive . Patient is closely followed by GI and Hematology. Patient feels she is safe to go home without services. Patient's will provide transportation viaprivate car at discharge. Patient has insurance coverage through [employer] and request medications be sent to [facility] in [facility]. Patient declines Advance Directive paperwork at this time. Plan: A member of the Care Management team will continue to monitor progress, follow for continuityof care and assist with transition of care planning. JAMES Enrique Pager: [phone] * Plan of Care - Claudine Huertas [...] [continuous indirect monitoring]: Purposeful rounding, room near [facility], call light within reach, francesco on [...] PM EST Office Visit Hematology/Oncology at [address] [phone] Lee Ann Jay MD [facility] [place] [address] Leti Anderson, PEARL TECHNICIAN [facility] DR HEMATOLOGY [place] [address] Scheduled Referrals Name Type Priority Associated Diagnoses [...] STAT 09/01/2019 7:57 PM EDT Sigmoidoscopy, Diagnostic (26769) colitis documented in this encounter Results * [...] Place PICC Line: Contact Vascular Access Page [phone] Extremity to exclude: No restrictions; Is PICC [...] to the planned procedure. Hand Hygiene: The field account manager did perform hand hygiene prior to line insertion. Catheter type: PICC Lot number: [id number] Procedure Technique: Skin was prepped with chlorhexidine. [...] 6:23 AM EDT) Neutrophil % 65.2 % [facility] Neutrophil Absolute 4.83 1.70 - 6.10 x10(3)/mc L [facility] Lymph % 20.6 % [facility] Lymphocytes Abs 1.5 0.9 - 3.2 x10(3)/mc L [facility] Monocyte % 6.7 % [facility] Monocyte Abs 0.5 0.3 - 0.9 x10(3)/mc L [facility] Eos % 0.1 % [facility] Eosinophils Abs 0.0 0.0 - 0.4 x10(3)/mc L [facility] Basophil % 0.1 % [facility] Baso Absolute 0.0 0.0 - [...] Absolute 0.54(H) 0.00 - 0.04 x10(3)/mc L [facility] Blood specimen (specimen) 09/07/2019 6:23 AM EDT 09/07/2019 6:48 AM EDT Narrative Resulting Agency Comment Spec In Lab Terrance Santana MD HEMATOLOGY ORDERABLE S [facility] [place] [address] * (ABNORMAL) Hemogram (09/07/2019 6:23 AM EDT) White Blood Cell 7.4 4.0 - 9.5 x10(3)/[facility] Red Blood Cell 4.23 4.00 - 5.21 x10(6)/[facility] Hemoglobin 11.7 11.7 - 15.5 gm/dL [facility] Hematocrit 38.0 35.7 - 45.8 % [facility] Mean Cell Volume 89.8 82.6 - 94.[address] [facility] Mean Cell Hemoglobin 27.7 27.1 - 32.[address] [facility] Mean Cell Hemoglobin Concentration 30.8(L) 31.7 - 35.0 gm/dL [facility] Platelet 306 145 - 357 x10(3)/[facility] RDW Standard Deviation 46.4(H) 37.0 - 46.0 [facility] RDW coefficient of variation 14.3(H) 11.5 - 14.1 % [facility] Mean Platelet Volume 9.9 7.6 - 12.9 [facility] NRBC% auto 0.0 % [facility] NRBC Absolute 0.000 0.000 - 0.000 x10(3)/[facility] Blood specimen (specimen) 09/07/2019 6:23 AM EDT 09/07/2019 6:48 AM EDT Narrative Resulting Agency Comment Spec In Lab Terrance Santana MD HEMATOLOGY ORDERABLE S Performing Organization Address City/[facility]/ZIP Co de Phone Number [facility] [place] [address] * (ABNORMAL) Differential, Automated (09/06/2019 9:50 AM EDT) Neutrophil % 75.8 % [facility] Neutrophil Absolute 8.52(H) 1.70 - 6.10 x10(3)/mc L [facility] Lymph % 10.1 % [facility] Lymphocytes Abs 1.1 0.9 - 3.2 x10(3)/ L [facility] Monocyte % 7.5 % [facility] Monocyte Abs 0.8 0.3 - 0.9 x10(3)/ L [facility] Eos % 0.1 % [facility] Eosinophils Abs 0.0 0.0 - 0.4 x10(3)/[facility] Basophil % 0.4 % [facility] Baso Absolute 0.0 0.0 - [...] MD HEMATOLOGY ORDERABLE S Performing Organization Address City/[facility]/ZIP Co de Phone Number [facility] [place] [address] * (ABNORMAL) Hemogram (09/06/2019 9:50 AM EDT) [...] HOSPITAL LABORATORY Platelet 300 145 - 357 x10(3)/[facility] RDW Standard Deviation 46.3(H) 37.0 - 46.0 [facility] RDW coefficient of variation 14.0 11.5 - 14.1 % [facility] Mean Platelet Volume 10.0 7.6 - 12.9 [facility] NRBC% auto 0.0 % [facility] NRBC Absolute 0.000 0.000 - 0.000 x10(3)/ L [facility] Blood specimen (specimen) 09/06/2019 9:50 AM EDT 09/06/2019 10:44 AM EDT Narrative Resulting Agency Comment Spec In Lab Terrance Santana MD HEMATOLOGY ORDERABLE S [facility] [place] [address] * Scan, Peripheral Blood (09/05/2019 4:52 AM EDT) Plat estimate Normal [facility] RBC Morphology Abnormal [facility] Ovalocytes 1-5 /HPF [facility] Blood specimen (specimen) 09/05/2019 4:52 AM EDT 09/05/2019 5:06 AM EDT Narrative Resulting Agency Comment Spec In Lab Terrance Santana MD HEMATOLOGY ORDERABLE S [facility] [place] [address] * (ABNORMAL) Differential, Automated (09/05/2019 4:52 AM EDT) Neutrophil % 27.5 % [facility] Neutrophil Absolute 0.42(Crit ical) 1.70 - 6.10 x10(3)/mc L [facility] Comment: This result has been called to TOM AHUJA by RADHA JOHN on 09 05 2019 at 0551, and has been read back. Lymph % 46.4 % [facility] Lymphocytes Abs 0.7(L) 0.9 - 3.2 x10(3)/mc L [facility] Monocyte % 17.6 % [facility] Monocyte Abs 0.3 0.3 - 0.9 x10(3)/mc L [facility] Eos % 0.0 % [facility] Eosinophils Abs 0.0 0.0 - 0.4 x10(3)/mc L [facility] Basophil % 0.0 % [facility] Baso Absolute 0.0 0.0 - [...] HEMATOLOGY ORDERABLE S [facility] [place] [address] * (ABNORMAL) Hemogram (09/05/2019 4:52 AM EDT) [...] [facility] NRBC% auto 0.0 % [facility] NRBC Absolute 0.000 0.000 - 0.000 x10(3)/mc L [facility] Blood specimen (specimen) 09/05/2019 4:52 AM EDT 09/05/2019 5:06 AM EDT Narrative Resulting Agency Comment Spec In Lab Terrance Santana MD HEMATOLOGY ORDERABLE S Performing Organization Address City/[facility]/ZIP Co de Phone Number [facility] [place] [address] * Scan, Peripheral Blood (09/04/2019 4:43 AM EDT) Plat estimate Normal [facility] RBC Morphology Normal [facility] Blood specimen (specimen) 09/04/2019 4:43 AM EDT 09/04/2019 5:23 AM EDT Narrative Resulting Agency Comment Spec In Lab Terrance Santana MD HEMATOLOGY ORDERABLE S Performing Organization Address [facility]/ZIP Co de Phone Number [facility] [place] [address] * (ABNORMAL) Basic Metabolic Panel (non-fasting) (09/04/2019 4:43 AM EDT) [facility] Glucose 88 65 - 199 mg/dL ST. [...] of body mass or the acutely ill. http://[employer]/[facility] eGFR 117 >=60 mL/min/1. 73 m?? [facility] Comment: The eGFR was calculated using the CKD-EPI equation. As with all creatinine based estimates of kidney function, eGFR values calculated with the CKD-EPI equation are not accurate in patients with acute kidney failure, extremes of body mass or the acutely ill. http://[employer]/[facility] Blood specimen (specimen) 09/04/2019 4:43 AM EDT 09/04/2019 5:00 AM EDT Narrative Resulting Agency Comment Spec In Lab Alexis Caro MD CHEMISTRY ORDERABLES [facility] [place] [address] * (ABNORMAL) Differential, Automated (09/04/2019 4:43 AM EDT) Neutrophil % 32.3 % [facility] Neutrophil Absolute 0.60(L) 1.70 - 6.10 x10(3)/mc L [facility] Lymph % 47.3 % [facility] Lymphocytes Abs 0.9 0.9 - 3.2 x10(3)/mc L [facility] Monocyte % 14.0 % [facility] Monocyte Abs 0.3 0.3 - 0.9 x10(3)/mc L [facility] Eos % 0.0 % [facility] Eosinophils Abs 0.0 0.0 - 0.4 x10(3)/mc L [facility] Basophil % 0.5 % [facility] Baso Absolute 0.0 0.0 - [...] HEMATOLOGY ORDERABLE S [facility] [place] [address] * (ABNORMAL) Hemogram (09/04/2019 4:43 AM EDT) [...] RDW Standard Deviation 44.5 37.0 - 46.0 [facility] RDW coefficient of variation 13.8 11.5 - 14.1 % [facility] Mean Platelet Volume 9.8 7.6 - 12.9 [facility] NRBC% auto 0.0 % [facility] NRBC Absolute 0.000 0.000 - 0.000 x10(3)/mc L [facility] Blood specimen (specimen) 09/04/2019 4:43 AM EDT 09/04/2019 5:23 AM EDT Narrative Resulting Agency Comment Spec In Lab Terrance Santana MD HEMATOLOGY ORDERABLE S Performing Organization Address City/State/[facility] Co de Phone Number [facility] [place] [address] * (ABNORMAL) Differential, Automated (09/03/2019 6:36 AM EDT) Neutrophil % 57.4 % [facility] Neutrophil Absolute 2.33 1.70 - 6.10 x10(3)/mc L [facility] Lymph % 20.0 % [facility] Lymphocytes Abs 0.8(L) 0.9 - 3.2 x10(3)/mc L [facility] Monocyte % 17.5 % [facility] Monocyte Abs 0.7 0.3 - 0.9 x10(3)/mc L [facility] Eos % 0.0 % [facility] Eosinophils Abs 0.0 0.0 - 0.4 x10(3)/mc L [facility] Basophil % 0.2 % [facility] Baso Absolute 0.0 0.0 - [...] HEMATOLOGY ORDERABLE S [facility] [place] [address] * (ABNORMAL) Hemogram (09/03/2019 6:36 AM EDT) White Blood Cell 4.1 4.0 - 9.5 x10(3)/[facility] Red Blood Cell 4.42 4.00 - 5.21 x10(6)/[facility] Hemoglobin 12.0 11.7 - 15.5 gm/dL [facility] Hematocrit 39.6 35.7 - 45.8 % [facility] Mean Cell Volume 89.6 82.6 - 94.4 [facility] Mean Cell Hemoglobin 27.1 27.1 - 32.[address] [facility] Mean Cell Hemoglobin Concentration 30.3(L) 31.7 - 35.0 gm/dL [facility] Platelet 315 145 - 357 x10(3)/[facility] RDW Standard Deviation 44.9 37.0 - 46.0 [facility] RDW coefficient of variation 13.7 11.5 - 14.1 % [facility] Mean Platelet Volume 10.2 7.6 - 12.9 [facility] NRBC% auto 0.0 % [facility] NRBC Absolute 0.000 0.000 - 0.000 x10(3)/ L [facility] Blood specimen (specimen) 09/03/2019 6:36 AM EDT 09/03/2019 6:59 AM EDT Narrative Resulting Agency Comment Spec In Lab Terrance Santana MD HEMATOLOGY ORDERABLE S Performing Organization Address [facility] de Phone Number [facility] [place] [address] * (ABNORMAL) Hepatic Function Panel (09/03/2019 6:36 AM EDT) Pathologist [facility] Protein, Total 7.3 6.1 - 8.0 gm/dL [...] MD CHEMISTRY ORDERABLES Performing Organization Address [facility] de Phone Number [facility] [place] [address] * (ABNORMAL) BMP w/fasting Glucose (09/03/2019 6:36 [...] of Diabetes Mellitus, Position Statement from the [place] [employer]. ??Diabetes Care, Volume 33, Supplement [...] of body mass or the acutely ill. http://[employer]/[facility]kf eGFR 113 >=60 mL/min/1. 73 m?? [facility] Comment: The eGFR was calculated using the CKD-EPI equation. As with all creatinine based estimates of kidney function, eGFR values calculated with the CKD-EPI equation are not accurate in patients with acute kidney failure, extremes of body mass or the acutely ill. http://[employer]/[facility]kf Blood specimen (specimen) 09/03/2019 6:36 AM EDT 09/03/2019 6:58 AM EDT Narrative Resulting Agency Comment Spec In Lab Alexis Caro MD CHEMISTRY ORDERABLES [facility] [place] [address] * CT Guided Aspiration Liver (09/02/2019 1:33 [...] in 4 weeks for fluoroscopic drain check. Director Of Student Aid(s): Resident/Fellow: Johan Hernandez M.D. Attending: Terrance Gunter [...] access tract was dilated and a 10 Syrian locking pigtail drainage catheter was placed. Post [...] vein thrombus.. Final CT showed a 10 Syrian drain positioned in the hepatic fluid collection. [...] vein thrombus.. Final CT showed a 10 Syrian drain positioned inthe hepatic fluid collection. 5 mL of purulent fluid was removed. IMPRESSION Impression: Successful CT-guided drain placement in a hepatic fluidcollection. Plan/disposition: 1) To Angio recovery room, may discharge to floor when meets criteria. 2) Forward flush every 12 hours with 3-5 mL of normal saline. Recordoutputs daily. 3) Patient to return in 4 weeks for fluoroscopic drain check. Director Of Student Aid(s): Resident/Fellow: Johan Hernandez M.D. Attending: Terrance Gunter [...] In Lab Terrance Santana MD MICROBIOLOGY - [facility] AL ORDERABLES [facility] [place] [address] * (ABNORMAL) Body Fluid Culture, Aerobic (09/02/2019 [...] GENER AL ORDERABLES [facility] [place] [address] * COVID-19 PCR (09/02/2019 1:41 AM EDT) [...] using the Simplexa COVID-19 Direct Assay by [employer] as authorized by the FDA issued Emergency [...] of Pathology and Laboratory Medicine at [facility], certified under the Clinical Laboratory Improvement Amendments [...] Information for Healthcare Professionals (https://www.cdc.gov/coronavirus/2019-ncov/hcp/index.html). SARS-CoV-2 Source SAFE DEPOSIT CLERK Swab MA [facility] Nasopharyngeal swab (specimen) 09/02/2019 1:41 AM EDT 09/02/2019 2:13 AM EDT Comment:Symptoms->Surveillan ce Narrative Resulting Agency Comment Spec In Lab Terrance Meade MD MICROBIOLOGY - GEN ERAL ORDERABLES Performing Organization Address City/[facility]/ZIP Co de Phone Number [facility] [place] [address] * (ABNORMAL) Urinalysis Microscopic Exam (09/01/2019 11:33 PM EDT) RBC, Urine 5(H) 0 - 4 /HPF [facility] WBC, Urine 1 0 - 5 /HPF [facility] Squamous Epithelial Cells Raw Data, Urine 1 <=4 /HPF [facility] Hyaline Casts, Urine 3(H) 0 - 2 /LPF [facility] Urine specimen obtained by clean catch procedure (specimen) 09/01/2019 11:33 PM EDT 09/01/2019 11:43 PM EDT Narrative Resulting Agency Comment Spec In Lab Ministerio Kline MD URINE ORDERABLES Performing Organization Address City/[facility]/ZIP Co de Phone Number [facility] [place] [address] * (ABNORMAL) Urinalysis with reflex Culture (09/01/2019 [...] Clear Clear [facility] Specific [place] Urine Automated >=1.030(A) 1.006 - 1.030 [facility] Color, Urine Dipstick Yellow Yellow [facility] Reflex to Culture No [facility] Urine specimen obtained by clean catch procedure (specimen) 09/01/2019 11:33 PM EDT 09/01/2019 11:43 PM EDT Narrative Resulting Agency Comment Spec In Lab Sebastian Chappell MD URINE ORDERABLES [facility] [place] [address] * (ABNORMAL) BLOOD GAS 2 VENOUS (09/01/2019 [...] LIDIA T ORDERABLES [facility] [place] [address] * Scan, Peripheral Blood (09/01/2019 10:08 PM EDT) Plat estimate Normal [facility] RBC Morphology Normal [facility] Blood specimen (specimen) 09/01/2019 10:08 PM EDT 09/01/2019 10:18 PM EDT Narrative Resulting Agency Comment Spec In Lab Ministerio Kline MD HEMATOLOGY ORDERABLE S Performing Organization Address City/[facility]/ZIP Co de Phone Number [facility] [place] [address] * Gold Tube HOLD (09/01/2019 10:08 PM EDT) Gold Hold Sample in lab. [facility] Blood specimen (specimen) Venous Draw / Unknown 09/01/2019 10:08 PM EDT 09/01/2019 10:19 PM EDT Ministerio Kline MD CHEMISTRY ORDERABLES Performing Organization Address City/[facility] Co de Phone Number [facility] [place] [address] * (ABNORMAL) Differential, Automated (09/01/2019 10:08 PM EDT) Neutrophil % 59.8 % [facility] Neutrophil Absolute 3.26 1.70 - 6.10 x10(3)/mc L [facility] Lymph % 17.9 % [facility] Lymphocytes Abs 1.0 0.9 - 3.2 x10(3)/mc L [facility] Monocyte % 14.8 % [facility] Monocyte Abs 0.8 0.3 - 0.9 x10(3)/mc L [facility] Eos % 0.0 % [facility] Eosinophils Abs 0.0 0.0 - 0.4 x10(3)/mc L [facility] Basophil % 0.4 % [facility] Baso Absolute 0.0 0.0 - [...] HEMATOLOGY ORDERABLE S [facility] [place] [address] * (ABNORMAL) Hemogram (09/01/2019 10:08 PM EDT) [...] RDW Standard Deviation 45.1 37.0 - 46.0 [facility] RDW coefficient of variation 13.9 11.5 - 14.1 % [facility] Mean Platelet Volume 9.8 7.6 - 12.[address] [facility] NRBC% auto 0.0 % [facility] NRBC Absolute 0.000 0.000 - 0.000 x10(3)/mc L [facility] Blood specimen (specimen) 09/01/2019 10:08 PM EDT 09/01/2019 10:18 PM EDT Narrative Resulting Agency Comment Spec In Lab Ministerio Kline MD HEMATOLOGY ORDERABLE S Performing Organization Address [facility]/ZIP Co de Phone Number [facility] [place] [address] * APTT (09/01/2019 10:08 PM EDT) Partial [...] HEMATOLOGY ORDERABLE S Performing Organization Address [facility] Co de Phone Number [facility] [place] [address] * Blood culture (09/01/2019 10:08 PM EDT) Blood Culture No growth at [address] [facility] Blood specimen (specimen) 09/01/2019 10:08 PM EDT 09/01/2019 10:29 PM EDT Comment:LFA Narrative Resulting Agency Comment Spec In Lab Sebastian Chappell MD MICROBIOLOGY - BLOOD ORDERABLES Performing Organization Address [facility] Co de Phone Number [facility] [place] [address] * Blood culture (09/01/2019 10:08 PM EDT) Blood Culture No growth at [address] [facility] Blood specimen (specimen) 09/01/2019 10:08 PM EDT 09/01/2019 10:28 PM EDT Comment:LAC Narrative Resulting Agency Comment Spec In Lab Sebastian Chappell MD MICROBIOLOGY - BLOOD ORDERABLES Performing Organization Address [facility] Co de Phone Number [facility] [place] [address] * (ABNORMAL) Prothrombin Time (09/01/2019 10:08 PM [...] MD HEMATOLOGY ORDERABLE S Performing Organization Address City/[facility] Co de Phone Number [facility] [place] [address] * Lipase (09/01/2019 10:08 PM EDT) Lipase 30 0 - 60 unit/L [facility] Blood specimen (specimen) 09/01/2019 10:08 PM EDT 09/01/2019 10:18 PM EDT Narrative Resulting Agency Comment Spec In Lab Sebastian Chappell MD CHEMISTRY ORDERABLES Performing Organization Address [facility]/ZIP Co de Phone Number [facility] [place] [address] * (ABNORMAL) Hepatic Function Panel (09/01/2019 10:08 PM EDT) [facility] Protein, Total 7.3 6.1 - 8.0 gm/dL [...] Chappell MD CHEMISTRY ORDERABLES Performing Organization Address City/State/[facility] Co de Phone Number [facility] [place] [address] * (ABNORMAL) Basic Metabolic Panel (non-fasting) (09/01/2019 10:08 PM EDT) [facility] Glucose 117 65 - 199 mg/dL ST. [...] of body mass or the acutely ill. http://[employer]/[facility]SAnkf eGFR 105 >=60 mL/min/1. 73 m?? [facility] Comment: The eGFR was calculated using the CKD-EPI equation. As with all creatinine based estimates of kidney function, eGFR values calculated with the CKD-EPI equation are not accurate in patients with acute kidney failure, extremes of body mass or the acutely ill. http://[employer]/[facility]kf Blood specimen (specimen) 09/01/2019 10:08 PM EDT 09/01/2019 10:18 PM EDT Narrative Resulting Agency Comment Spec In Lab Sebastian Chappell MD CHEMISTRY ORDERABLES Performing Organization Address [facility] Co de Phone Number [facility] [place] [address] * Film Library- Storage Only CT Abdomen & Pelvis (09/01/2019 7:57 PM EDT) Narrative [facility] - 09/01/2019 7:57 PM EDT This exam is auto-finalizing. It's purpose is for storage only. Yola Oliveros MD IMG FILM LIBRARY ORD ERABLES Performing Organization Address [facility]/ZIP Co de Phone Number [place], [place] documented in this encounter Visit Diagnoses [...] first. documented in this encounter Care Teams Spacer Type Bar And Segment Relationship Specialty Start Date End Date Julia Chatterjee MD [address] [facility] [address] [place] [address] PCP - General 01/31/10 documented as of this encounter
--- OUTSIDE RECORDS SUMMARY | 2023-10-24 02:35 | XMS_ITS | Encounter Summary ---
Author Organization [facility] [place] [address] Care Team Providers Care Health Systems Analyst Name Role Phone Julia Chatterjee MD Primary Care Provider [phone] Reason for Visit * Reason Onset Date Comments Fever 08/25/2019 Encounter Details Date Type Department Care Team (Late st Contact Info) Description 08/25/2019 Telephone Hematology/Oncology at [address] [phone] Vicky Madrigal RN Fever Social [...] this morning and checked her temp which ccr139.3F. She reports she was discharged from [facility] last Wednesday 08/16 where she was treated for bacteremia/sepsis and colitis. She is currently on oral ABT Cipro and last day was today. She also reports she feels dehydrated. She was advised to go to [facility] ED for evaluation. Report called to [facility] ED rosana cagle onocolgy team updated via this note. documented in this encounter Plan of Treatment Upcoming Encounters Date Type Department Care Team (Late st Contact Info) Description 04/15/2024 1:00 PM EST Office Visit Hematology/Oncology at [address] [phone] Lee Ann Jay MD [facility] DR HEMATOLOGY [place] [address] Leti Anderson APRN [facility] HEMATOLOGY [place] [address] documented as of this encounter Visit Diagnoses Not on filedocumented in this encounter Care Teams Health Systems Analyst Relationship Specialty Start Date End Date Julia Chatterjee MD [facility] [address] [place] [address] PCP - General 01/31/10 documented as of this encounter
--- OUTSIDE RECORDS SUMMARY | 2023-10-24 02:35 | XMS_ITS | Encounter Summary ---
Author Organization [facility] Address [facility] [place] [address] Care Team Providers Care Manufacturing Systems Engineer Name Role Phone Julia Chatterjee MD Primary Care Provider [phone] Encounter Details Date Type Department Care Team (Late st Contact Info) Description 08/31/2019 Telephone [place] [address] Yola Oliveros MD [facility] [place] [address] Social History Tobacco Use Types Packs/Day Years [...] and so was seen again in the [facility] emergency department. Per Dr. Chatterjee, a [...] PM EST Office Visit Hematology/Oncology at [address] [phone] Lee Ann Jay MD [facility] DR [place] [address] Leti Anderson APRN [facility] [address] [place] [address] documented as of this encounter Visit Diagnoses Not on filedocumented in this encounter Care Teams Manufacturing Systems Engineer Relationship Specialty Start Date End Date Julia Chatterjee MD [address] [place] [address] PCP - General 01/31/10 documented as of this encounter
--- OUTSIDE RECORDS SUMMARY | 2023-10-24 02:35 | XMS_ITS | Encounter Summary ---
Author Organization [facility] Address [facility] [place] [address] Care Team Providers Care Bobbin Inspector Name Role Phone Julia Chatterjee MD Primary Care Provider [phone] Encounter Details Date Type Department Care Team (Late st Contact Info) Description 08/26/2019 8:00 AM EDT Office Visit Hematology/Oncology at [address] [phone] Radha Cooper, JAYLEN [facility] [address] [place] [address] Large granular lymphocyte disorder Social History Tobacco [...] this encounter Progress Notes * Radha Cooper, GAS TRUCK DRIVER - 08/26/2019 8:00 AM EDT Subjective: Patient ID: Leti Parry is a 68 y.o. female here for f/u of LGL/chronic neutropenia Patient Active Problem List Diagnosis ??? Ulcerative colitis Diagnosed around 2011. Worked with prime minister with resolution of symptoms food based supplements [...] flow ) are being pursued at the [place] [facility]. Should ??cytopenias persist , it may [...] rectum remains inflamed. She is using witch laurne pads and desitan. She otherwise has had no other infections. She was living in [facility] working on her son's home. She had a personalized living assistant and was working on strength training which [...] PM EST Office Visit Hematology/Oncology at [address] [phone] Lee Ann Jay MD [facility] [place] [address] Leti Anderson APRN [facility] [place] [address] documented as of this encounter Procedures Procedure [...] remission documented in this encounter Care Teams Bobbin Inspector Relationship Specialty Start Date End Date Julia Chatterjee MD [address] [place] [address] PCP - General 01/31/10 documented as of this encounter
--- OUTSIDE RECORDS SUMMARY | 2023-10-24 02:35 | XMS_ITS | Encounter Summary ---
Author Organization [facility] Address [facility] [place] [address] Care Team Providers Care Lace Roller Name Role Phone Julia Chatterjee MD Primary Care Provider [phone] Encounter Details Date Type Department Care Team (Late st Contact Info) Description 09/01/2019 Telephone [place] [phone] Yola Oliveros MD [facility] [place] [address] Social History Tobacco Use Types Packs/Day Years [...] Abd/pelvis, which was done this afternoon at [facility] as an outpt. Per Dr. Collins, it showed a large obstructing abscess in the R lobe. In retrospect, I think there is perhaps start of R lobe abscess on 08/[address] CT[address] Asked that the CT be pushed down to [facility] - though that has yet to occur. [...] PM EST Office Visit Hematology/Oncology at [address] [phone] Lee Ann Jay MD [facility] DR HEMATOLOG[place] [address] Leti Anderson APRN [facility] DR [place] [address] documented as of this encounter Visit Diagnoses Not on filedocumented in this encounter Care Teams Lace Roller Relationship Specialty Start Date End Date Julia Chatterjee MD [address] [place] [address] PCP - General 01/31/10 documented as of this encounter
--- OUTSIDE RECORDS SUMMARY | 2023-10-24 02:35 | XMS_ITS | Encounter Summary ---
Author Organization [facility] Address [facility] [place] [address] Care Team Providers Care Meteorological Technician Name Role Phone Julia Chatterjee MD Primary Care Provider [phone] Encounter Details Date Type Department Care Team (Late st Contact Info) Description 09/02/2019 Notes [place] [address] Izzy Fabian MD [facility] [place] [address] Social History Tobacco Use Types Packs/Day Years [...] ASPIRATION W/BX THROUGH SAME INCISION/SITE Right 01/08/2017 ([facility]) BONE MARROW ASP PERFORMED W/BX THRU BX INCISION (WRVU 0.16) performed by Lee Ann Jay MD at [facility] OSC ??? PRO BONE MARROW BX, NEEDLE/TROCAR Right 01/08/2017 ([facility] MS[facility]G) BONE MARROW,BIOPSY (WRVU 1.37) performed by Lee Ann Jay MD at [facility] OSC ??? PRO COLONOSCOPY, BIOPSY 07/05/2011 COLONOSCOPY FLEXIBLE, WITH BX performed by MARY CASTRO at [facility] ENDOSCOPY ??? PRO COLONOSCOPY, REMV LESN, SNARE 07/05/2011 COLONOSCOPY, POLYPECTOMY, REMOVAL LESION BY SNARE performed by MARY CASTRO at [facility] ENDOSCOPY Medications: No current facility-administered medications for [...] PM EST Office Visit Hematology/Oncology at [address] [phone] Lee Ann Jay MD [facility] DR [place] [address] Leti Anderson APRN [facility] [address] [place] [address] documented as of this encounter Visit Diagnoses Not on filedocumented in this encounter Care Teams Meteorological Technician Relationship Specialty Start Date End Date Julia Chatterjee MD [address] [place] [address] PCP - General 01/31/10 documented as of this encounter
--- OUTSIDE RECORDS SUMMARY | 2023-10-24 02:35 | XMS_ITS | Encounter Summary ---
Author Organization [facility] [place] [address] Care Team Providers Care General Science Teacher Name Role Phone Julia Chatterjee MD Primary Care Provider [phone] Encounter Details Date Type Department Care Team (Late Contact Info) Description 09/01/2019 8:00 PM EDT Ancillary Procedure [place] [phone] Social History Tobacco Use Types Packs/Day Years [...] PM EST Office Visit Hematology/Oncology at [address] [phone] Lee Ann Jay MD [facility] DR HEMATOLOGY [place] [address] Leti Anderson, INVESTIGATOR WELFARE [facility] HEMATOLOGY [place] [address] documented as of this encounter Procedures Procedure [...] FILM LIBRARY ORD ERABLES Performing Organization Address City/State/[facility] Co de Phone Number [place], [place] documented in this encounter Visit Diagnoses Not on filedocumented in this encounter Care Teams General Science Teacher Relationship Specialty Start Date End Date Julia Chatterjee MD [address] [place] [address] PCP - General 01/31/10 documented as of this encounter
--- OUTSIDE RECORDS SUMMARY | 2023-10-24 02:36 | XMS_ITS | Encounter Summary ---
Author Organization [facility] Address [facility] [place] [address] Care Team Providers Care Mill Work Name Role Phone Julia Chatterjee MD Primary Care Provider [phone] Encounter Details Date Type Department Care Team (Late st Contact Info) Description 12/19/2016 10:00 AM EDT Office Visit Hematology/Oncology at [address] [phone] Lee Ann Jay MD [facility] DR [place] [address] Radha Cooper, JAYLEN [facility] DR [place] [address] Neutropenia, unspecified type Social History Tobacco Use [...] this encounter Progress Notes * Radha Cooper, TOUCHER UP - 12/19/2016 10:00 AM EDT Subjective: Patient ID: Leti Parry is a 66 y.o. female here for H and P prior to sedated bone marrow biopsy Patient Active Problem List Diagnosis ??? Ulcerative colitis Diagnosed around 2011. Worked with marshmallow maker with resolution of symptoms food based supplements [...] PM EST Office Visit Hematology/Oncology at [address] [phone] Lee Ann Jay MD [facility] DR [place] [address] Leti Anderson APRN [facility] [address] [place]EM[place] [address] documented as of this encounter Visit Diagnoses Diagnosis Neutropenia, unspecified type documented in this encounter Care Teams Mill Work Relationship Specialty Start Date End Date Julia Chatterjee MD [address] [place] [address] PCP - General 01/31/10 documented as of this encounter
--- OUTSIDE RECORDS SUMMARY | 2023-10-24 02:36 | XMS_ITS | Encounter Summary ---
Author Organization [facility] [place] [address] Care Team Providers Care Car Dealer Name Role Phone Julia Chatterjee MD Primary Care Provider [phone] Reason for Visit * Reason Onset Date Comments Labs Only 10/25/2016 Encounter Details Date Type Department Care Team (Late Contact Info) Description 10/25/2016 Telephone Hematology/Oncology at [address] [phone] Mera Cintron RN Labs Only [...] 1:00 PM EST Office Visit Hematology/Oncology at [address] [phone] Lee Ann Jay MD [facility] [place] [address] Leti Anderson APRN [facility] DR [place] [address] documented as of this encounter Visit Diagnoses Not on filedocumented in this encounter Care Teams Car Dealer Relationship Specialty Start Date End Date Julia Chatterjee MD [facility] [address] [address] PCP - General 01/31/10 documented as of this encounter
--- OUTSIDE RECORDS SUMMARY | 2023-10-24 02:36 | XMS_ITS | Encounter Summary ---
Author Organization [facility] [place] [address] Care Team Providers Care Universal Grinder Operator Name Role Phone Julia Chatterjee MD Primary Care Provider [phone] Reason for Visit * Reason Onset Date Comments Follow-up 08/13/2019 Encounter Details Date Type Department Care Team (Late Contact Info) Description 08/13/2019 Telephone Hematology/Oncology at [address] [phone] Mera Cintron RN Follow-up Social [...] EDT Spoke with kushal henry nurse at [facility] where pt is at present. Let her [...] PM EST Office Visit Hematology/Oncology at [address] [phone] Lee Ann Jay MD [facility] DR [place] [address] Leti Anderson APRN [facility] [place] [address] documented as of this encounter Visit Diagnoses Not on filedocumented in this encounter Care Teams Universal Grinder Operator Relationship Specialty Start Date End Date Julia Chatterjee MD [facility] [address] [facility] [place] [address] PCP - General 01/31/10 documented as of this encounter
--- OUTSIDE RECORDS SUMMARY | 2023-10-24 02:36 | XMS_ITS | Encounter Summary ---
Author Organization [facility] Address [facility] [place] [address] Care Team Providers Care Regional Transfer Liaison Name Role Phone Julia Chatterjee MD Primary Care Provider [phone] Encounter Details Date Type Department Care Team (Late Contact Info) Description 11/07/2016 Orders Only Hematology/Oncology at [address] [phone] Radha Cooper, [facility] [place]ATOLOG[place] [address] Social History Tobacco Use Types Packs/Day Years [...] PM EST Office Visit Hematology/Oncology at [address] [phone] Lee Ann Jay MD [facility] [place]ATOLOG[place] [address] Leti Anderson, WHITEPRINTING MACHINE OPERATOR [facility] [place] [address] Scheduled Orders Name Type Priority Associated Diagnoses Orde r Schedule ([facility] MS[facility])BONE MARROW ASP PERFORMED W/BX THRU BX INCISION Procedures Routine One Time f or 1 Occurrences starting 11/07/2016 until 11/07/2016 ([facility]) UNILAT BONE MARROW BIOSPY Procedures Routine One Time for 1 Occurrences starting 11/07/2016 until 11/07/2016 documented as of this encounter Visit Diagnoses Not on filedocumented in this encounter Care Teams Regional Transfer Liaison Relationship Specialty Start Date End Date Julia Chatterjee MD [facility] [address] [place] [address] PCP - General 01/31/10 documented as of this encounter
--- OUTSIDE RECORDS SUMMARY | 2023-10-24 02:36 | XMS_ITS | Encounter Summary ---
[place] [address] Care Team Providers Care Steno Pool Supervisor Name Role Phone Julia Chatterjee MD Primary Care Provider [phone] Reason for Visit * Reason Onset Date Comments Reminder Appointment 08/18/2019 Encounter Details Date Type Department Care Team (Late Contact Info) Description 08/18/2019 Telephone [place] [phone] Christy Lopez CCMA Reminder Appointment Social History [...] PM EST Office Visit Hematology/Oncology at [address] [phone] Lee Ann Jay MD [facility] DR HEMATOLOGY [place] [address] Leti Anderson APRN [facility] HEMATOLOGY [place] [address] documented as of this encounter Visit Diagnoses Not on filedocumented in this encounter Care Teams Steno Pool Supervisor Relationship Specialty Start Date End Date Julia Chatterjee MD [facility] KINA FELIZ [facility] 1 [place] [address] PCP - General 01/31/10 documented as of this encounter
--- OUTSIDE RECORDS SUMMARY | 2023-10-24 02:36 | XMS_ITS | Encounter Summary ---
Author Organization [facility] [place] [address] Care Team Providers Care Tubing Machine Operator Name Role Phone Julia Chatterjee MD Primary Care Provider [phone] Reason for Visit * Reason Onset Date Comments Labs Only 10/17/2017 lab criticals Encounter Details Date Type Department Care Team (Late Contact Info) Description 10/17/2017 Telephone Hematology Oncology at [address] [phone] Crystal Dumas RN Labs Only [...] 10/17/2017 9:53 AM EDT Criticals called from [facility] laboratory, results communicated to Dr. Jay and entered in externalresults documented in this encounter Plan of Treatment Upcoming Encounters Date Type Department Care Team (Late Contact Info) Description 04/15/2024 1:00 PM EST Office Visit Hematology/Oncology at [address] [phone] Lee Ann Jay MD [facility] [place] [address] Leti Anderson APRN [facility] [place] [address] documented as of this encounter Procedures Procedure Name Priority Date/Time Associated Diagnosis Comments CBC (WITH DIFF) Routine 10/17/2017 documented in this encounter Results * CBC (with Diff) (10/17/2017) White Blood Cell 1.92 Hemoglobin 13.4 Hematocrit 41.2 Platelet 195 ANC 0.25 Blood specimen (specimen) 10/17/2017 Historical Provider HEMATOLOGY ORDERA BLES documented in this encounter Visit Diagnoses Not on filedocumented in this encounter Care Teams Tubing Machine Operator Relationship Specialty Start Date End Date Julia Chatterjee MD [address] [place] [address] PCP - General 01/31/10 documented as of this encounter
--- OUTSIDE RECORDS SUMMARY | 2023-10-24 02:36 | XMS_ITS | Encounter Summary ---
Author Organization [facility] [place] [address] Care Team Providers Care Paper Cup Handle Machine Operator Name Role Phone Julia Chatterjee MD Primary Care Provider [phone] Reason for Visit * Reason Onset Date Comments Labs Only 08/07/2018 Encounter Details Date Type Department Care Team ([facility] Contact Info) Description 08/07/2018 Telephone Hematology/Oncology at [address] [phone] Blaire Alarcon RN Labs Only [...] Upcoming Encounters Date Type Department Care Team ([facility] Contact Info) Description 04/15/2024 1:00 PM EST Office Visit Hematology/Oncology at [address] [phone] [address] [facility] [address] HEMATOLOGY [place] [address] [facility] HEMATOLOGY [place] [address] documented as of this encounter Visit Diagnoses Not on filedocumented in this encounter Care Teams Paper Cup Handle Machine Operator Relationship Specialty Start Date End Date Julia Chatterjee MD [facility] KINA FELIZ [facility] 1 [place] [address] PCP - General 01/31/10 documented as of this encounter
--- OUTSIDE RECORDS SUMMARY | 2023-10-24 02:36 | XMS_ITS | Encounter Summary ---
Author Organization [facility] Address [facility] [place] [address] Care Team Providers Care Dump Truck Driver Name Role Phone Julia Chatterjee MD Primary Care Provider [phone] Encounter Details Date Type Department Care Team (Late st Contact Info) Description 08/08/2016 2:00 PM EDT Office Visit Hematology/Oncology at [address] [phone] Lee Ann Jay MD [facility] DR HEMATOLOGY [place] [address] Neutropenia, unspecified type Social History Tobacco Use [...] 13.4, plt 162 Neutrophils 12.9 Lymphocytes 66.5 [place] 19.3 Eosinophils 0.4 Basophils 0.0 Immature grans [...] BX performed by MARY CASTRO at [facility] ??? PRO COLONOSCOPY, REMV SABINA, SNARE 07/05/2011 COLONOSCOPY, POLYPECTOMY, REMOVAL LESION BY SNARE performed by MARY CASTRO at [facility] Medications; Current Outpatient Prescriptions [...] sisters all healthy Social History: Lives in [facility]. . 1 son 38 years old- healthy. 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 [...] gm/dL 1.21 M1 Band Unknown None Detected [place] Free Light Chains Latest Ref Range: 0.33 - 1.94 mg/dL 1.66 Lambda Free Light Chains Latest Ref Range: 0.57 - 2.63 mg/dL 1.54 [place]/Lambda Free Light Chain Ratio Latest Ref Range: 0.2600 - 1.6500 1.0779 IgG Latest Ref Range: 700 - 1600 mg/dL 1468 IgA Latest Ref Range: 70 - 400 mg/dL 238 IgM Latest Ref Range: 40 - 230 mg/dL 114 HIV Viral Load Unknown * RESULT: <20 helicopter specialist... HepB Surface Ag Latest Ref Range: Negative [...] return. She has been working with a secretary of state who started her on selenium and zinc. Counts are a bit higher so we will see. Distribution Technician has been helping her with bowel issues. [...] This note was written or modified using [employer] voice recognition software. The final note was screened for mistakes. Please excuse any remaining errors. ? documented in this encounter Plan of Treatment Upcoming Encounters Date Type Department Care Team (Late st Contact Info) Description 04/15/2024 1:00 PM EST Office Visit Hematology/Oncology at [address] [phone] Lee Ann Jay MD [facility] DR HEMATOLOGY [place] [address] An Anderson APRN [facility] DR HEMATOLOGY [place] [address] documented as of this encounter Procedures Procedure [...] type documented in this encounter Care Teams Dump Truck Driver Relationship Specialty Start Date End Date Julia Chatterjee MD [address] [place] [address] PCP - General 01/31/10 documented as of this encounter
--- OUTSIDE RECORDS SUMMARY | 2023-10-24 02:36 | XMS_ITS | Encounter Summary ---
Author Organization [facility] Address [facility] [place] [address] Care Team Providers Care Baler Name Role Phone Julia Chatterjee MD Primary Care Provider [phone] Reason for Visit * Reason Comments Follow-up Encounter Details Date Type Department Care Team (Late st Contact Info) Description 07/16/2011 10:00 AM EDT [place] [address] Ayaz Nelson MD [facility] [place] [address] Colitis (Primary Dx) Discharge Disposition: Home Social [...] then gets loose. She also sees a it support engineer and is off gluten and milk. She [...] PM EST Office Visit Hematology/Oncology at [address] [phone] Lee Ann Jay MD [facility] DR HEMATOLOGY [place] [address] Leti Anderson APRN [facility] HEMATOLOGY [place] [address] documented as of this encounter Procedures Procedure [...] Nelson MD CHEMISTRY ORDERABLES Performing Organization Address City/[facility] Co de Phone Number CERYRN SCHULTZIUM * [...] MD HEMATOLOGY ORDERABLE S Performing Organization Address City/[facility] Co de Phone Number RUEL SERNA documented in this encounter Visit Diagnoses Diagnosis Colitis- Primary Other and unspecified noninfectious gastroenteritis and colitis documented in this encounter Care Teams Baler Relationship Specialty Start Date End Date Julia Chatterjee MD [address] [place] [address] PCP - General 01/31/10 documented as of this encounter
--- OUTSIDE RECORDS SUMMARY | 2023-10-24 02:36 | XMS_ITS | Encounter Summary ---
Author Organization [facility] [place] [address] Care Team Providers Care Arc Welding Machine Operator Name Role Phone Julia Chatterjee MD Primary Care Provider [phone] Encounter Details Date Type Department Care Team (Late Contact Info) Description 08/07/2018 Orders Only Hematology/Oncology at [address] [phone] Michelle Layne RN Neutropenia, unspecified type; Large [...] PM EST Office Visit Hematology/Oncology at [address] [phone] Lee Ann Jay MD [facility] DR HEMATOLOGY [place] [address] Leti Anderson, JAVA PERFORMANCE ENGINEER [facility] HEMATOLOGY [place] [address] documented as of this encounter Visit Diagnoses Diagnosis Neutropenia, unspecified type 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
--- OUTSIDE RECORDS SUMMARY | 2023-10-24 02:36 | XMS_ITS | Encounter Summary ---
Author Organization [facility] [place] [address] Care Team Providers Care Physician Scribe Name Role Phone Julia Chatterjee MD Primary Care Provider [phone] Reason for Visit * Reason Onset Date Comments Medication Refill 07/05/2011 Encounter Details Date Type Department Care Team (Late Contact Info) Description 07/05/2011 [place] [address] Ayaz Nelson MD [facility] [place] [address] Social History Tobacco Use Types Packs/Day Years [...] PM EST Office Visit Hematology/Oncology at [address] [phone] Lee Ann Jay MD [facility] [address] [place] [address] Leti Anderson, MENTAL HEALTH SPECIALIST [facility] [place] [address] documented as of this encounter Visit Diagnoses Not on filedocumented in this encounter Care Teams Physician Scribe Relationship Specialty Start Date End Date Julia Chatterjee MD [address] [facility] 1 [place] [address] PCP - General 01/31/10 documented as of this encounter
--- OUTSIDE RECORDS SUMMARY | 2023-10-24 02:36 | XMS_ITS | Encounter Summary ---
Author Organization [facility] [place] [address] Care Team Providers Care [facility] Name Role Phone Julia Chatterjee MD Primary Care Provider [phone] Encounter Details Date Type Department Care Team (Late st Contact Info) Description 07/12/2016 Telephone [place]ology [place] [phone] Mk Feliciano MD [facility] DR HEMATOLOGY/[place] [address] Social History Tobacco Use Types Packs/Day Years [...] gm/dL 1.21 M1 Band Unknown None Detected [place] Free Light Chains Latest Ref Range: 0.33 - 1.94 mg/dL 1.66 Lambda Free Light Chains Latest Ref Range: 0.57 - 2.63 mg/dL 1.54 [place]/Lambda Free Light Chain Ratio Latest Ref Range: [...] 1:00 PM EST Office Visit Hematology/Oncology at [address] [phone] Lee Ann Jay MD [facility] HEMATOLOGY [place] [address] An Anderson APRN [facility] HEMATOLOGY [place] [address] documented as of this encounter Visit Diagnoses Not on filedocumented in this encounter Care Teams [facility] Relationship Specialty Start Date End Date Julia Chatterjee MD [facility] [address] [place] [address] PCP - General 01/31/10 documented as of this encounter
--- OUTSIDE RECORDS SUMMARY | 2023-10-24 02:36 | XMS_ITS | Encounter Summary ---
Author Organization [facility] Address [facility] [place] [address] Care Team Providers Care Ethnic Studies Professor Name Role Phone Julia Chatterjee MD Primary Care Provider [phone] Reason for Visit * Consultation (Routine) - Closed Specialty Diagnoses / Procedures Referred By Contac t Referred To Contact Hematology and Oncology Diagnoses leukopenia Julia Chatterjee MD [address] [place] [address] [facility] 1 [place] [address] [facility] Hem Onc [address] [place] [address] Referral ID Status Reason Start Date Expiration Date V isits Requested Visits Authorized [id number] Closed Consult, Test & Treat [facility] 06/05/2016 06/05/2017 1 1 Encounter Details Date Type Department Care Team (Late st Contact Info) Description 07/09/2016 11:00 AM EDT Office Visit [place]ematology [place] [phone] Lee Ann Rodriguez MD [facility] DR HEMATOLOGY [place] [address] Leukopenia, unspecified type (Primary Dx) Social History [...] 13.4, plt 162 Neutrophils 12.9 Lymphocytes 66.5 [place] 19.3 Eosinophils 0.4 Basophils 0.0 Immature grans [...] WITH BX performed by MARY CASTRO at [facility] ??? PRO COLONOSCOPY, REMV LESN, SNARE 07/05/2011 COLONOSCOPY, POLYPECTOMY, REMOVAL LESION BY SNARE performed by MARY CASTRO at [facility] Medications; Current Outpatient Prescriptions on [...] sisters all healthy Social History: Lives in [facility]. . 1 son 38 years old- healthy. 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 Likes to bike, piliates [...] hiv - RTC in 2 months at [facility] ?? Plan discussed with attending. All of patient's questions were answered. Mk Feliciano MD Hematology Oncology Fellow Pager [phone] * Lee Ann Rodriguez MD - 07/09/2016 [...] I plan to see her back in [facility] in about 3 months. If all [...] PM EST Office Visit Hematology/Oncology at [address] [phone] Lee Ann Rodriguez MD [facility] HEMATOLOGY [place] [address] Leti Anderson APRN [facility] [place] [address] documented as of this encounter Results * Hepatitis B Surface Antigen (07/09/2016 12:00 PM EDT) Hepatitis B Surface Antigen Negative Negative [facility] Blood specimen (specimen) 07/09/2016 12:00 PM EDT 07/09/2016 12:09 PM EDT Narrative Resulting Agency Comment Spec In Lab Lee Ann Rodriguez MD CHEMISTRY ORDERA BLES [facility] [place] [address] * Hepatitis B Core Antibody, Total (07/09/2016 12:00 PM EDT) Hepatitis B Core Antibody Negative Negative [facility] Blood specimen (specimen) 07/09/2016 12:00 PM EDT 07/09/2016 12:09 PM EDT Narrative Resulting Agency Comment Spec In Lab Lee Ann Rodriguez MD CHEMISTRY ORDERA BLES [facility] [place] [address] * Hepatitis C Antibody (07/09/2016 12:00 PM EDT) Hepatitis C Antibody Negative Negative [facility] Comment: An updated Hepatitis C Ab assay reagent was implemented on 05/23/16. Please contact Dr. Alfaro at [phone] with any questions or concerns. Blood specimen (specimen) 07/09/2016 12:00 PM EDT 07/09/2016 12:09 PM EDT Narrative Resulting Agency Comment Spec In Lab Lee Ann Rodriguez MD CHEMISTRY ORDERA BLES Performing Organization Address City/[facility]/ZIP Co de Phone Number [facility] [place] [address] * HIV-1 RNA, quantitative, PCR (07/09/2016 12:00 PM EDT) [facility] HIV Viral Load Result (Qualitative) * [...] Administration. Arash Roland, Ph.D. Director, Molecular Pathology [facility] Comment: [VERIFIED DATE]07.13.16 Verified By:Meeta Patrick (Electronic Signature) Blood specimen (specimen) 07/09/2016 12:00 PM EDT 07/12/2016 2:01 PM EDT Narrative Resulting Agency Comment Spec In Lab Lee Ann Rodriguez MD MOLECULAR LILA ROBERTS Performing Organization Address [facility]/ZIP Co de Phone Number [facility] [place] [address] * Immunoglobulins, Quantitative (07/09/2016 12:00 PM EDT) [facility] Immunoglobulin G 1,468 700 - 1,600 mg/dL [facility] IgA 238 70 - 400 mg/dL [facility] IgM 114 40 - 230 mg/dL [facility] Blood specimen (specimen) 07/09/2016 12:00 PM EDT 07/09/2016 12:09 PM EDT Narrative Resulting Agency Comment Spec In Lab Lee Ann Rodriguez MD CHEMISTRY ORDERA BLES Performing Organization Address [facility] Co de Phone Number [facility] [place] [address] * Free Light Chains, Serum (07/09/2016 12:00 PM EDT) [place] Free Light Chains 1.66 0.33 - 1.94 mg/dL [facility] Lambda Free Light Chains 1.54 0.57 - 2.63 mg/dL [facility] [place]/Lambda Free Light Chain Ratio 1.0779 0.2600 - 1.6500 [facility] Blood specimen (specimen) 07/09/2016 12:00 PM EDT 07/09/2016 12:09 PM EDT Narrative Resulting Agency Comment Spec In Lab Lee Ann Rodriguez MD CHEMISTRY ORDERA BLES Performing Organization Address [facility] Co de Phone Number [facility] [place] [address] * Protein Electrophoresis, serum (07/09/2016 12:00 PM EDT) Total Prot Electrophoresis 7.9 6.1 - 8.0 gm/dL [facility] Albumin Electrophoresis 4.97 3.60 - 6.00 gm/dL [facility] Alpha 1 Globulin 0.17 0.10 - 0.30 gm/dL [facility] Alpha 2 Globulin 0.78 0.40 - 0.90 gm/dL [facility] Beta Globulin 0.77 0.50 - 1.00 gm/dL [facility] Gamma Globulin 1.21 0.50 - 1.30 gm/dL [facility] M1 Band None Detected [facility] Blood specimen (specimen) 07/09/2016 12:00 PM EDT 07/09/2016 12:09 PM EDT Narrative Resulting Agency Comment Spec In Lab Lee Ann Rodriguez MD CHEMISTRY ORDERA BLES Performing Organization Address City/[facility]/ZIP Co de Phone Number [facility] [place] [address] * Immunophenotyping Flow Cytometry (07/09/2016 12:00 PM EDT) Immunophenotyping Flow See Comment [facility] Comment: When completed by the Pathologist, the Flow Cytometry Report ([id number]) will display under the Pathology Results section within eDH. Specimen of unknown material (specimen) 07/09/2016 12:00 PM EDT 07/09/2016 12:09 PM EDT Narrative Resulting Agency Comment Spec In Lab Lee Ann Rodriguez MD HEMATOLOGY ORDER ASHLEY Performing Organization Address [facility] Co de Phone Number [facility] [place] [address] * (ABNORMAL) Comprehensive metabolic panel (non-fasting) (07/09/2016 12:00 PM EDT) Glucose 95 65 - 199 mg/dL [facility] Comment:Diabetes: >=200 mg/d L plus symptoms Blood Urea Nitrogen 17 8 - 18 mg/dL [facility] Creatinine 0.96 0.70 - 1.20 mg/dL [facility] Comment: Please note that the pediatric reference intervals supplied above were not validated at [facility]. Results from pediatric patients should be interpreted in conjunction to the patient's age, height and muscle mass. Sodium 140 135 - 145 mmol/L [facility] Potassium 4.2 3.5 - 5.0 mmol/L [facility] Comment: Please note: ??Patients with WBC >100,000 may have falsely elevated Potassium levels. ??For accurate Potassium quantification in these patients send serum separator tube (gold top) for subsequent determinations. ??Contact the Clinical Chemistry Laboratory if there are any questions. Chloride 100 98 - 107 mmol/L [facility] Carbon Dioxide 28 22 - 31 mmol/L [facility] Anion Gap 12 5 - 15 mmol/L [facility] Calcium 9.7 8.5 - 10.5 mg/dL [facility] Protein, Total 7.9 6.1 - 8.0 gm/dL [facility] Albumin 4.6 3.2 - 5.2 gm/dL [facility] Aspartate Aminotransferase 17 0 - 30 unit/L [facility] Alanine Aminotransferase 14 0 - 30 unit/L [facility] Alkaline Phosphatase 62 40 - 104 unit/L [facility] Bilirubin, Total 0.3 0.2 - 1.3 mg/dL [facility] Bilirubin, Direct 0.1 0.0 - 0.3 mg/dL [facility] Est Glomerular Filtration Rate 59(L) >=60 [facility] Comment: This estimated GFR (eGFR) [...] the following links into your internet browser. [email or web address] Blood specimen (specimen) 07/09/2016 12:00 PM EDT 07/09/2016 12:09 PM EDT Narrative Resulting Agency Comment Spec In Lab Lee Ann Rodriguez MD CHEMISTRY ORDERA BLES [facility] [place] [address] documented in this encounter Visit Diagnoses Diagnosis Leukopenia, unspecified type- Primary documented in this encounter Care Teams Ethnic Studies Professor Relationship Specialty Start Date End Date Julia Chatterjee MD [address] [place] [address] PCP - General 01/31/10 documented as of this encounter
--- OUTSIDE RECORDS SUMMARY | 2023-10-24 02:36 | XMS_ITS | Encounter Summary ---
Author Organization [facility] Address [facility] [place] [address] Care Team Providers Care Electric Meter Repairer Apprentice Name Role Phone Julia Chatterjee MD Primary Care Provider [phone] Reason for Visit * Reason Comments Follow-up Encounter Details Date Type Department Care Team (Late st Contact Info) Description 01/24/2012 2:30 PM EST [place] [phone] Ayaz Nelson MD [facility] [place] [address] Colitis (Primary Dx) Discharge Disposition: Home Social [...] was doing well. She had seen a catalyst supervisor who had suggested that she was gluten intolerant and lactose intolerant but did not have clear celiac disease. When I saw her last I checked her for tTG and it was negative. Since I saw her last, she has done well. She went off her gluten-free diet when she was in [facility] and then began to experience symptoms again [...] Extremities without edema, cyanosis, or clubbing. Impression: Blrgu-[id number]-mavc-old woman with left-sided colitis on colonoscopy in [...] PM EST Office Visit Hematology/Oncology at [address] [phone] Le eAnn Jay MD [facility] [place] [address] Leti Anderson APRN [facility] [place] [address] documented as of this encounter Visit Diagnoses Diagnosis Colitis- Primary Other and unspecified noninfectious gastroenteritis and colitis documented in this encounter Care Teams Electric Meter Repairer Apprentice Relationship Specialty Start Date End Date Julia Chatterjee MD [facility] [address] [place] [address] PCP - General 01/31/10 documented as of this encounter
--- OUTSIDE RECORDS SUMMARY | 2023-10-24 02:36 | XMS_ITS | Encounter Summary ---
Author Organization [facility] [place] [address] Care Team Providers Care Senior Technical Specialist Name Role Phone Julia Chatterjee MD Primary Care Provider [phone] Reason for Visit * Consultation (Urgent) - Specialty Diagnoses / Procedures Referred By Kimani t Referred To Contact Gastroenterology Diagnoses UC Procedures consult Hesham Dobson MD [facility] [place] [address] [facility] [address] [place] [address] Referral ID Status Reason Start Date Expiration Date V isits Requested Visits Authorized [id number] 08/13/2019 08/12/2020 1 1 Encounter Details Date Type Department Care Team (Latest Contact Info) Description 08/18/2019 11:00 AM EDT TH Visit (TeleHealth) [place] [phone] Yola Jenkins MD [facility] [place] [address] Other ulcerative colitis with complication [...] the records from a recent hospitalization at [facility]. Ms. Parry was diagnosed with mild left-sided ulcerative colitis at the time of the screening colonoscopy in [address] Stu Nelson. He followed up with her in the office at the time. A short trial of Rowasa enemas did not make a difference, and she followed up with a local mill house supervisor using dietary supplements to maintain remission. She reports that her typical bowel habit tends somewhat towards constipation. She usually moves her bowels every day or 2 and occasionally will seesmall amounts of blood on toilet tissue. She has been taking magnesium for constipation for years. She works with a mill house supervisor who occasionally did a gut check that [...] bilious vomiting. [facility] had [facility] CT [facility] that [...] ) are being pursued at the [facility]. Should ??cytopenias persist , it may be [...] past surgical history that includes Colonoscopy, Biopsy (02959) (07/05/2011); Colonoscopy, Remv Lesn, Snare ([id number]) (07/05/2011); Bone Marrow Aspiration W/Bx Through Same Incision/Site ([id number]) (Right, 01/08/2017); and Bone Marrow Bx, Needle/Trocar ([id number]) (Right, 01/08/2017). Family History: No family history [...] bacteremia. I will obtain the records from [facility] to help complete the picture, but [...] future. Recommendations: # Obtain discharge summary from [facility] # Change prednisone from 60 mg/day [...] time of their visit. Yola JENKINS [place] [facility] [place] [phone] documented in this encounter Plan of Treatment Upcoming Encounters Date Type Department Care Team (Late st Contact Info) Description 04/15/2024 1:00 PM EST Office Visit Hematology/Oncology at [address] [phone] Lee Ann Jay MD [facility] HEMATOLOGY [place] [address] Leti Anderson APRN [facility] HEMATOLOGY [place] [address] documented as of this encounter Visit Diagnoses Diagnosis Other ulcerative colitis with complication documented in this encounter Care Teams Senior Technical Specialist Relationship Specialty Start Date End Date Julia Chatterjee MD [facility] [address] [place] [address] PCP - General 01/31/10 documented as of this encounter
--- OUTSIDE RECORDS SUMMARY | 2023-10-24 02:36 | XMS_ITS | Encounter Summary ---
Author Organization [facility] Address [facility] [place] [address] Care Team Providers Care Financial Economist Name Role Phone Julia Chatterjee MD Primary Care Provider [phone] Encounter Details Date Type Department Care Team (Late st Contact Info) Description 11/07/2016 2:00 PM EDT Office Visit Hematology/Oncology at [address] [phone] [address] [facility] [address] [place] [address] Neutropenia, unspecified type; Ulcerative pancolitis without complication [...] 13.4, plt 162 Neutrophils 12.9 Lymphocytes 66.5 [place] 19.3 Eosinophils 0.4 Basophils 0.0 Immature grans [...] Ulcerative colitis Diagnosed around 2011. Worked with rib sawyer with resolution of symptoms food based supplements [...] CASTRO at [facility] Medications; Current Outpatient Prescriptions on File Prior to Visit Medication Sig Dispense Refill ??? ascorbic acid, vitamin C, (VITAMIN C) 500 mg Tablet Take 500 mg by mouth daily. ??? MULTIVITAMIN/ZINC SULFATE/SULTANA ([id number] ORAL) Take 1 tablet by mouth daily. [...] sisters all healthy Social History: Lives in [facility]. . 1 son 38 years old- healthy. 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 [...] gm/dL 1.21 M1 Band Unknown None Detected Sesser Free Light Chains Latest Ref Range: 0.33 - 1.94 mg/dL 1.66 Lambda Free Light Chains Latest Ref Range: 0.57 - 2.63 mg/dL 1.54 Sesser/Lambda Free Light Chain Ratio Latest Ref Range: 0.2600 - 1.6500 1.0779 IgG Latest Ref Range: 700 - 1600 mg/dL 1468 IgA Latest Ref Range: 70 - 400 mg/dL 238 IgM Latest Ref Range: 40 - 230 mg/dL 114 HIV Viral Load Unknown * RESULT: <20 music copyist... HepB Surface Ag Latest Ref Range: Negative [...] return. She has been working with a rib sawyer who started her on selenium and zinc. Counts are a bit higher so we will see. Document Processor has been helping her with bowel issues. [...] Will image spleen - US at [facility] ?? BMBx with sedation ?? RTC 2 [...] This note was written or modified using etouches voice recognition software. The final note was screened for mistakes. Please excuse any remaining errors. ?? documented in this encounter Plan of Treatment Upcoming Encounters Date Type Department Care Team (Late st Contact Info) Description 04/15/2024 1:00 PM EST Office Visit Hematology/Oncology at [address] [phone] [address] [facility] [place] [address] [facility] [place] [address] documented as of this encounter Visit Diagnoses Diagnosis Neutropenia, unspecified type Ulcerative pancolitis without complication documented in this encounter Care Teams Financial Economist Relationship Specialty Start Date End Date Julia Chatterjee MD [facility] [address] [place] [address] PCP - General 01/31/10 documented as of this encounter
--- OUTSIDE RECORDS SUMMARY | 2023-10-24 02:36 | XMS_ITS | Encounter Summary ---
Author Organization [facility] [place] [address] Care Team Providers Care Facilities Maintenance Manager Name Role Phone Julia Chatterjee MD Primary Care Provider [phone] Encounter Details Date Type Department Care Team (Latest Contact Info) Description 02/28/2017 9:55 AM EST Laboratory Appointment Lab [address], [place] [phone] Large granular lymphocyte disorder; Neutropenia, unspecified type [...] PM EST Office Visit Hematology/Oncology at [address] [phone] Lee Ann Jay MD [facility] DR HEMATOLOGY [place] [address] Leti Anderson, OFFSET PRINTING PRESSMEN [facility] DR HEMATOLOGY [place] [address] documented as of this encounter Procedures Procedure Name Priority Date/Time Associated Diagnosis Comments MISCELLANEOUS LAB REQUEST Routine 02/28/2017 10:01 AM EST Large granular lymphocyte disorder Neutropenia, unspecified type MISCELLANEOUS LAB REQUEST Routine 02/28/2017 10:01 AM EST Large granular lymphocyte disorder Neutropenia, unspecified type MISC SENDOUT Routine 02/28/2017 10:01 AM EST documented in this encounter Results * Misc Sendout (02/28/2017 10:01 AM EST) [facility] Sendout See Note [facility] Comment: The ordered test is: STAT3 [employer], [address] [place] [address] [place] [address] See Scanned Report. Specimen of unknown material (specimen) Other / Unknown 02/28/2017 10:01 AM EST 03/01/2017 10:50 AM EST Lee Ann Jay MD LAB SEND OUT ORD ERABLES [facility] [place] [address] * Miscellaneous Lab request (02/28/2017 10:01 AM EST) Label Request received in lab. [facility] Blood specimen (specimen) 02/28/2017 10:01 AM EST 02/28/2017 10:13 AM EST Narrative Resulting Agency Comment Spec In Lab Lee Ann Jay MD LAB SEND OUT ORD ERABLES [facility] [place] [address] * Miscellaneous Lab request (02/28/2017 10:01 AM EST) Label Request received in lab. 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
--- OUTSIDE RECORDS SUMMARY | 2023-10-24 02:36 | XMS_ITS | Encounter Summary ---
Author Organization [facility] [place] [address] Care Team Providers Care Buckle Assembler Name Role Phone Julia Chatterjee MD Primary Care Provider [phone] Encounter Details Date Type Department Care Team (Late Contact Info) Description 08/11/2019 Ancillary Procedure [place] [address] Dakotah Juárez MD [facility] [address] Social History Tobacco Use Types Packs/Day Years [...] PM EST Office Visit Hematology/Oncology at [address] [phone] Lee Ann Jay MD [facility] DR [place] [address] Leti Anderson, SPECIALIST EMPLOYEE LABOR RELATIONS [facility] [place] [address] documented as of this encounter Procedures Procedure [...] FILM LIBRARY ORD ERABLES Performing Organization Address City/State/[facility] Co de Phone Number [place], [place] documented in this encounter Visit Diagnoses Not on filedocumented in this encounter Care Teams Buckle Assembler Relationship Specialty Start Date End Date Julia Chatterjee MD [address] [place] [address] PCP - General 01/31/10 documented as of this encounter
--- OUTSIDE RECORDS SUMMARY | 2023-10-24 02:36 | XMS_ITS | Encounter Summary ---
Author Organization [facility] Address [facility] [place] [address] Care Team Providers Care Bit Setter Name Role Phone Julia Chatterjee MD Primary Care Provider [phone] Encounter Details Date Type Department Care Team (Latest Contact Info) Description 07/09/2016 11:52 AM EDT - 07/09/2016 11:59 PM EDT Hospital Encounter [place]ology [place] [address] Leukopenia, unspecified type Discharge Disposition: Home Social [...] PM EST Office Visit Hematology/Oncology at [address] [address] Lee Ann Jay MD [facility] HEMATOLOGY [place] [address] Leti Anderson APRN [facility] [place] [address] documented as of this encounter Procedures Procedure [...] 12:00 PM EDT) Neutrophil % 30.9 % [facility] Neutrophil Absolute 0.64(L) 1.70 - 6.10 x10(3)/ L [facility] Lymph % 58.9 % [facility] Lymphocytes Abs 1.2 0.9 - 3.2 x10(3)/ L [facility] Monocyte % 9.7 % [facility] Monocyte Abs 0.2(L) 0.3 - 0.9 x10(3)/[facility] Eos % 0.5 % [facility] Eosinophils Abs 0.0 0.0 - 0.4 x10(3)/[facility] Basophil % 0.0 % [facility] Baso Absolute 0.0 0.0 - 0.1 x10(3)/[facility] Immature Gran % 0.00 % [facility] Comment: Immature granulocytes(IG's)percentage and absolute count will include metamyelocytes, myelocytes, and promyelocytes. Blood smears from CBCs yielding IG's will be scanned manually for concordance. If this scan disagrees with the automated IG or if promyelocytes are noted, a manual differential will be performed. Immature Gran Absolute 0.00 0.00 - 0.04 x10(3)/ L [facility] Blood specimen (specimen) 07/09/2016 12:00 PM EDT 07/09/2016 12:09 PM EDT Narrative Resulting Agency Comment Spec In Lab Lee Ann Jay MD HEMATOLOGY ORDER ASHLEY [facility] [place] [address] * (ABNORMAL) Hemogram (07/09/2016 12:00 PM EDT) [facility] White Blood Cell 2.1(L) 4.0 - 9.5 x10(3)/ L [facility] Red Blood Cell 4.85 4.00 - 5.21 x10(6)/mc L [facility] Hemoglobin 13.8 11.7 - 15.5 gm/dL [facility] Hematocrit 42.7 35.7 - 45.8 % [facility] Mean Cell Volume 88.0 82.6 - 94.4 fL [facility] Mean Cell Hemoglobin 28.5 27.1 - 32.0 pg [facility] Mean Cell Hemoglobin Concentration 32.3 31.7 - 35.0 gm/dL [facility] Platelet 211 145 - 357 x10(3)/mc L [facility] RDW Standard Deviation 40.5 37.0 - 46.0 fL [facility] RDW coefficient of variation 12.5 11.5 - 14.1 % [facility] Mean Platelet Volume 10.1 7.6 - 12.9 fL [facility] NRBC% auto 0.0 % [facility] NRBC Absolute 0.000 0.000 - 0.000 x10(3)/ L [facility] Blood specimen (specimen) 07/09/2016 12:00 PM EDT 07/09/2016 12:09 PM EDT Narrative Resulting Agency Comment Spec In Lab Lee Ann Jay MD HEMATOLOGY ORDER ASHLEY [facility] [place] [address] * Hepatitis B Surface Antigen (07/09/2016 12:00 PM EDT) Hepatitis B Surface Antigen Negative Negative [facility] Blood specimen (specimen) 07/09/2016 12:00 PM EDT 07/09/2016 12:09 PM EDT Narrative Resulting Agency Comment Spec In Lab Lee Ann Jay MD CHEMISTRY ORDERA BLES Performing Organization Address City/[facility]/ZIP Co de Phone Number [facility] [place] [address] * Hepatitis B Core Antibody, Total (07/09/2016 12:00 PM EDT) [facility] Hepatitis B Core Antibody Negative Negative [facility] Blood specimen (specimen) 07/09/2016 12:00 PM EDT 07/09/2016 12:09 PM EDT Narrative Resulting Agency Comment Spec In Lab Lee Ann Jay MD CHEMISTRY ORDERA BLES Performing Organization Address [facility] Co de Phone Number [facility] [place] [address] * Hepatitis C Antibody (07/09/2016 12:00 PM EDT) [facility] Hepatitis C Antibody Negative Negative [facility] Comment: An updated Hepatitis C Ab assay reagent was implemented on 05/23/16. Please contact Dr. Alfaro at [phone] with any questions or concerns. Blood specimen (specimen) 07/09/2016 12:00 PM EDT 07/09/2016 12:09 PM EDT Narrative Resulting Agency Comment Spec In Lab Lee Ann Jay MD CHEMISTRY ORDERA BLES Performing Organization Address City/[facility] Co de Phone Number [facility] [place] [address] * HIV-1 RNA, quantitative, PCR (07/09/2016 12:00 PM EDT) [facility] HIV Viral Load Result (Qualitative) * RESULT: [...] Administration. Arash Roland, Ph.D. Director, Molecular Pathology [facility] Comment: [VERIFIED DATE]07.13.16 Verified By:Meeta Patrick (Electronic Signature) Blood specimen (specimen) 07/09/2016 12:00 PM EDT 07/12/2016 2:01 PM EDT Narrative Resulting Agency Comment Spec In Lab Lee Ann Jay MD MOLECULAR LILA ROBERTS Performing Organization Address [facility] Co de Phone Number [facility] [place] [address] * Immunoglobulins, Quantitative (07/09/2016 12:00 PM EDT) Pathologist [facility] Immunoglobulin G 1,468 700 - 1,600 mg/dL [facility] IgA 238 70 - 400 mg/dL [facility] IgM 114 40 - 230 mg/dL [facility] Blood specimen (specimen) 07/09/2016 12:00 PM EDT 07/09/2016 12:09 PM EDT Narrative Resulting Agency Comment Spec In Lab Lee Ann aJy MD CHEMISTRY ORDERA BLES Performing Organization Address City/[facility] Co de Phone Number [facility] [place] [address] * Free Light Chains, Serum (07/09/2016 12:00 PM EDT) Pathologist [facility] [place] Free Light Chains 1.66 0.33 - 1.94 mg/dL [facility] Lambda Free Light Chains 1.54 0.57 - 2.63 mg/dL [facility] [place]/Lambda Free Light Chain Ratio 1.0779 0.2600 - 1.6500 [facility] Blood specimen (specimen) 07/09/2016 12:00 PM EDT 07/09/2016 12:09 PM EDT Narrative Resulting Agency Comment Spec In Lab Lee Ann Jay MD CHEMISTRY ORDERA BLES Performing Organization Address [facility]/ZIP Co de Phone Number [facility] [place] [address] * Protein Electrophoresis, serum (07/09/2016 12:00 PM EDT) Pathologist [facility] [place] Total Prot Electrophoresis 7.9 6.1 - 8.0 gm/dL [facility] Albumin Electrophoresis 4.97 3.60 - 6.00 gm/dL [facility] Alpha 1 Globulin 0.17 0.10 - 0.30 gm/dL [facility] Alpha 2 Globulin 0.78 0.40 - 0.90 gm/dL [facility] Beta Globulin 0.77 0.50 - 1.00 gm/dL [facility] Gamma Globulin 1.21 0.50 - 1.30 gm/dL [facility] M1 Band None Detected [facility] Blood specimen (specimen) 07/09/2016 12:00 PM EDT 07/09/2016 12:09 PM EDT Narrative Resulting Agency Comment Spec In Lab Lee Ann Jay MD CHEMISTRY ORDERA BLES Performing Organization Address [facility]/ZIP Co de Phone Number [facility] [place] [address] * Immunophenotyping Flow Cytometry (07/09/2016 12:00 PM EDT) Immunophenotyping Flow See Comment [facility] Comment: When completed by the Pathologist, the Flow Cytometry Report ([id number]) will display under the Pathology Results section within [facility]. Specimen of unknown material (specimen) 07/09/2016 12:00 PM EDT 07/09/2016 12:09 PM EDT Narrative Resulting Agency Comment Spec In Lab Lee Ann Jay MD HEMATOLOGY ORDER ASHLEY [facility] [place] [address] * (ABNORMAL) Comprehensive metabolic panel (non-fasting) (07/09/2016 12:00 PM EDT) Glucose 95 65 - 199 mg/dL [facility] Comment:Diabetes: >=200 mg/d L plus symptoms Blood Urea Nitrogen 17 8 - 18 mg/dL [facility] Creatinine 0.96 0.70 - 1.20 mg/dL [facility] Comment: Please note that the pediatric reference intervals supplied above were not validated at [facility]. Results from pediatric patients should be interpreted in conjunction to the patient's age, height and muscle mass. Sodium 140 135 - 145 mmol/L [facility] Potassium 4.2 3.5 - 5.0 mmol/L [facility] Comment: Please note: ??Patients with WBC >100,000 may have falsely elevated Potassium levels. ??For accurate Potassium quantification in these patients send serum separator tube (gold top) for subsequent determinations. ??Contact the Clinical Chemistry Laboratory if there are any questions. Chloride 100 98 - 107 mmol/L [facility] Carbon Dioxide 28 22 - 31 mmol/L [facility] Anion Gap 12 5 - 15 mmol/L [facility] Calcium 9.7 8.5 - 10.5 mg/dL [facility] Protein, Total 7.9 6.1 - 8.0 gm/dL [facility] Albumin 4.6 3.2 - 5.2 gm/dL [facility] Aspartate Aminotransferase 17 0 - 30 unit/L [facility] Alanine Aminotransferase 14 0 - 30 unit/L [facility] Alkaline Phosphatase 62 40 - 104 unit/L [facility] Bilirubin, Total 0.3 0.2 - 1.3 mg/dL [facility] Bilirubin, Direct 0.1 0.0 - 0.3 mg/dL [facility] Est Glomerular Filtration Rate 59(L) >=60 [facility] Comment: This estimated GFR (eGFR) [...] the following links into your internet browser. [email or web address] Blood specimen (specimen) 07/09/2016 12:00 PM EDT 07/09/2016 12:09 PM EDT Narrative Resulting Agency Comment Spec In Lab Lee Ann Jay MD CHEMISTRY ORDERA [facility] [place] [address] * Flow Cytometry Report (07/09/2016 12:00 PM EDT) Flow Cytometry Report [id number] ?Location: 3K The signing pathologist has (i) [...] by the Clinical Flow Cytometry Laboratory at [facility]. It has not been cleared or [...] high complexity clinical laboratory testing. SPECIMEN PROCESSING [id number] Cells for immunophenotypic analysis were derived from [...] requested to evaluate for abnormal lymphocyte populations. [facility] 07/09/2016 12:0 0 PM EDT Mk Feliciano MD PATHOLOGY/CYTOLOGY O OMI [facility] [place] [address] documented in this encounter Visit Diagnoses Diagnosis Leukopenia, unspecified type documented in this encounter Care Teams Bit Setter Relationship Specialty Start Date End Date Julia Chatterjee MD [facility] [address] [place] [address] PCP - General 01/31/10 documented as of this encounter
--- OUTSIDE RECORDS SUMMARY | 2023-10-24 02:36 | XMS_ITS | Encounter Summary ---
Author Organization [facility] Address [facility] [place] [address] Care Team Providers Care Linotypist Name Role Phone Julia Chatterjee MD Primary Care Provider [phone] Encounter Details Date Type Department Care Team (Late st Contact Info) Description 11/01/2016 Notes Only [place]ology [place] [address] Lee Ann Jay MD [facility] [address] HEMATOLOGY [place] [address] Social History Tobacco Use Types Packs/Day Years [...] PM EST Office Visit Hematology/Oncology at [address] [address] Lee Ann Jay MD [facility] [address] HEMATOLOGY [place] [address] Leti Anderson APRN [facility] HEMATOLOGY [place] [address] documented as of this encounter Visit Diagnoses Diagnosis Neutropenia, unspecified type documented in this encounter Care Teams Linotypist Relationship Specialty Start Date End Date Julia Chatterjee MD [facility] K[address] FEL[address] [facility] [address] [place] [address] PCP - General 01/31/10 documented as of this encounter
--- OUTSIDE RECORDS SUMMARY | 2023-10-24 02:36 | XMS_ITS | Encounter Summary ---
Author Organization [facility] Address [facility] [place] [address] Care Team Providers Care Osteopathic Neurologist Name Role Phone Julia Chatterjee MD Primary Care Provider [phone] Reason for Visit * Reason Onset Date Comments Abnormal Lab 10/17/2017 Critical WBC Encounter Details Date Type Department Care Team (Late Contact Info) Description 10/17/2017 Telephone Hematology/Oncology at [address] [address] Heidi Fraser RN Abnormal Lab [...] Critical WBC 1.92 called from Izzy at [facility] lab. documented in this encounter Plan of Treatment Upcoming Encounters Date Type Department Care Team (Late Contact Info) Description 04/15/2024 1:00 PM EST Office Visit Hematology/Oncology at [address] [phone] Lee Ann Jay MD [facility] HEMATOLOGY [place] [address] Leti Anderson APRN [facility] [address] HEMATOLOGY [place] [address] documented as of this encounter Visit Diagnoses Not on filedocumented in this encounter Care Teams Osteopathic Neurologist Relationship Specialty Start Date End Date Julia Chatterjee MD [facility] K[address] FELIZ [address] [address] PCP - General 01/31/10 documented as of this encounter
--- OUTSIDE RECORDS SUMMARY | 2023-10-24 02:36 | XMS_ITS | Encounter Summary ---
Author Organization [facility] Address [facility] [place] [address] Care Team Providers Care Beating Machine Operator Name Role Phone Julia Chatterjee MD Primary Care Provider [phone] Encounter Details Date Type Department Care Team (Late st Contact Info) Description 08/13/2019 Telephone [place] [phone] Hesham Dobson MD [facility] [place] [address] Social History Tobacco Use Types Packs/Day Years [...] PM EST Office Visit Hematology/Oncology at [address] [phone] LeeA nn Jay MD [facility] [address] [place] [address] Leti Anderson APRN [facility] [address] [place] [address] documented as of this encounter Visit Diagnoses Not on filedocumented in this encounter Care Teams Beating Machine Operator Relationship Specialty Start Date End Date Julia Chatterjee MD [address] [place] [address] PCP - General 01/31/10 documented as of this encounter
--- OUTSIDE RECORDS SUMMARY | 2023-10-24 02:36 | XMS_ITS | Encounter Summary ---
Author Organization [facility] [place] [address] Care Team Providers Care Esthetician/Spa Coordinator Name Role Phone Julia Chatterjee MD Primary Care Provider [phone] Reason for Visit * Reason Onset Date Comments Follow-up 08/12/2019 Pt in hospital Encounter Details Date Type Department Care Team (Late st Contact Info) Description 08/12/2019 Telephone Hematology/Oncology at [address] [phone] Vicky Madrigal, RN Follow-up (Pt [...] Tamir regarding Leti Parry. She went to [facility] with fevers, they are treating her for [...] you can call him with any questions: [phone]. Thanks, Ye documented in this encounter Plan of Treatment Upcoming Encounters Date Type Department Care Team (Late st Contact Info) Description 04/15/2024 1:00 PM EST Office Visit Hematology/Oncology at [address] [address] Lee Ann Jay MD [facility] [address] HEMATOLOGY [place] [address] Leti Anderson, DIRECTOR MEDICAL SURGICAL [facility] [address] HEMATOLOGY [place] [address] documented as of this encounter Visit Diagnoses Not on filedocumented in this encounter Care Teams Esthetician/Spa Coordinator Relationship Specialty Start Date End Date Julia Chatterjee MD [facility] [address] [place] [address] PCP - General 01/31/10 documented as of this encounter
--- OUTSIDE RECORDS SUMMARY | 2023-10-24 02:36 | XMS_ITS | Encounter Summary ---
Author Organization [facility] [place] [address] Care Team Providers Care Lead Cargoman Name Role Phone Julia Chatterjee MD Primary Care Provider [phone] Reason for Visit * Reason Onset Date Comments Other 11/01/2016 lab work Encounter Details Date Type Department Care Team (Late Contact Info) Description 11/01/2016 Telephone Hematology/Oncology at [address] [phone] Mera Cintron RN Other (lab [...] PM EST Office Visit Hematology/Oncology at [address] [phone] Lee Ann Jay MD [facility] [address] [place] [address] Leti Anderson APRN [facility] [place] [address] documented as of this encounter Visit Diagnoses Not on filedocumented in this encounter Care Teams Lead Cargoman Relationship Specialty Start Date End Date Julia Chatterjee MD [facility] K[address] FELIZ [facility] [place] [address] PCP - General 01/31/10 documented as of this encounter
--- OUTSIDE RECORDS SUMMARY | 2023-10-24 02:36 | XMS_ITS | Encounter Summary ---
Author Organization [facility] Address [facility] [place] [address] Care Team Providers Care Market Development Manager Name Role Phone Julia Chatterjee MD Primary Care Provider [phone] Encounter Details Date Type Department Care Team (Late st Contact Info) Description 07/18/2011 Telephone [place] [address] Ana Felton, RN Social History [...] PM EST Office Visit Hematology/Oncology at [address] [phone] Lee Ann Jay MD [facility] DR HEMATOLOGY [place] [address] Leti Anderson APRN [facility] [place] [address] documented as of this encounter Visit Diagnoses Not on filedocumented in this encounter Care Teams Market Development Manager Relationship Specialty Start Date End Date Julia Chatterjee MD [facility] [address] [place] [address] PCP - General 01/31/10 documented as of this encounter
--- OUTSIDE RECORDS SUMMARY | 2023-10-24 02:36 | XMS_ITS | Encounter Summary ---
Author Organization [facility] Address [facility] [place] [address] Care Team Providers Care Checkroom Attendant Name Role Phone Julia Chatterjee MD Primary Care Provider [phone] Encounter Details Date Type Department Care Team (Late st Contact Info) Description 08/27/2018 9:00 AM EDT Office Visit Hematology/Oncology at [address] [phone] Lee Ann Jay MD [facility] [address] [place] [address] Radha Cooper, JAYLEN [facility] [address] [place] [address] Neutropenia, unspecified type Social History Tobacco Use [...] encounter Progress Notes * Radha Cooper Xavi, TRIAL MANAGER - 08/27/2018 9:00 AM EDT Subjective: Patient ID: Leti Parry is a 67 y.o. 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 Ulcerative colitis Diagnosed around 2011. Worked with chef broiler or fry with resolution of symptoms food based supplements [...] flow ) are being pursued at the [facility]. Should ??cytopenias persist , it may [...] - she had a nice trip to [facility] to visit her son and grandchildren [...] PM EST Office Visit Hematology/Oncology at [address] [phone] Lee Ann Jay MD [facility] HEMATOLOGY [place] [address] Leti Anderson APRN [facility] [place] [address] documented as of this encounter Procedures Procedure Name Priority Date/Time Associated Diagnosis Comments CBC (WITH DIFF) Routine 08/07/2018 documented in this encounter Results * CBC (with Diff) (08/07/2018) White Blood Cell 1.91 Hemoglobin 13.5 Hematocrit 42.3 Platelet 196 ANC 0.27 Blood specimen (specimen) 08/07/2018 Radha Cooper TRIAL MANAGER HEMATOLOGY ORDERABLE S documented in this encounter Visit Diagnoses Diagnosis Neutropenia, unspecified type documented in this encounter Care Teams Checkroom Attendant Relationship Specialty Start Date End Date Julia Chatterjee MD [address] [place] [address] PCP - General 01/31/10 documented as of this encounter
--- OUTSIDE RECORDS SUMMARY | 2023-10-24 02:36 | XMS_ITS | Encounter Summary ---
Author Organization [facility] Address [facility] [place] [address] Care Team Providers Care Phone Banker Name Role Phone Julia Chatterjee MD Primary Care Provider [phone] Encounter Details Date Type Department Care Team (Late st Contact Info) Description 12/07/2016 - 12/07/2016 11:59 PM EDT Hospital Encounter [place] [address] Lee Ann Jay MD [facility] DR [place] [address] Pain Discharge Disposition: Home Social History Tobacco [...] mg by mouth daily. 08/26/2019 MULTIVITAMIN/ZINC SULFATE/SULTANA ([id number] ENIUM ORAL)Indications:Neutr openia, unspecified type Take 1 [...] PM EST Office Visit Hematology/Oncology at [address] [phone] Lee Ann Jay MD [facility] [place] [address] Leti Anderson APRN [facility] [place] [address] documented as of this encounter Procedures Procedure Name Priority Date/Time Associated Diagnosis Comments ULTRASOUND SCAN (SCAN) 12/07/2016 12:00 AM EDT FILM LIBRARY STORAGE ONLY ULTRASOUND STUDY Routine 12/07/2016 12:00 AM EDT Pain documented in this encounter Results * Film Library- Storage Only Ultrasound Study (12/07/2016 12:00 AM EDT) Narrative [facility] - 12/08/2016 8:57 AM EDT This exam is for storage only and is auto-finalizing. Lee Ann Jay MD IMG FILM LIBRARY ORDERABLES [place], [place] * SCAN DOC: ULTRASOUND (12/07/2016 12:00 AM EDT) Anatomical Region Laterality Modality SO Narrative 12/07/2016 12:00 AM EDT Ordered by an unspecified provider. Scanning Provider MEDIA MGR SCAN EXT O RDR/RSLT documented in this encounter Visit Diagnoses Diagnosis Pain Generalized pain documented in this encounter Care Teams Phone Banker Relationship Specialty Start Date End Date Julia Chatterjee MD [address] [place] [address] PCP - General 01/31/10 documented as of this encounter
--- OUTSIDE RECORDS SUMMARY | 2023-10-24 02:36 | XMS_ITS | Encounter Summary ---
Author Organization [facility] Address [facility] [place] [address] Care Team Providers Care Smelter Operator Name Role Phone Julia Chatterjee MD Primary Care Provider [phone] Encounter Details Date Type Department Care Team (Late Contact Info) Description 10/08/2016 Telephone Hematology/Oncology at [address] [phone] Mera Cintron RN Social History [...] PM EST Office Visit Hematology/Oncology at [address] [phone] Lee Ann Jay MD [facility] HEMATOLOGY [place] [address] Leti Anderson APRN [facility] DR HEMATOLOGY [place] [address] documented as of this encounter Visit Diagnoses Not on filedocumented in this encounter Care Teams Smelter Operator Relationship Specialty Start Date End Date Julia Chatterjee MD [facility] [address] [facility] [address] [place] [address] PCP - General 01/31/10 documented as of this encounter
--- OUTSIDE RECORDS SUMMARY | 2023-10-24 02:36 | XMS_ITS | Encounter Summary ---
Author Organization [facility] [place] [address] Care Team Providers Care Copra Sampler Name Role Phone Julia Chatterjee MD Primary Care Provider [phone] Encounter Details Date Type Department Care Team (Late Contact Info) Description 07/31/2019 Orders Only Hematology Oncology at [address] [phone] Estefany Ramon RN Large granular [...] PM EST Office Visit Hematology/Oncology at [address] [phone] Lee Ann Jay MD [facility] HEMATOLOGY AND [place] [address] Leti Anderson, SUPPLY CHAIN BUYER [facility] HEMATOLOGY [place] [address] documented as of this encounter Visit Diagnoses Diagnosis 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
--- OUTSIDE RECORDS SUMMARY | 2023-10-24 02:36 | XMS_ITS | Encounter Summary ---
Author Organization [facility] Address [facility] [place] [address] Care Team Providers Care Train Brake Operator Name Role Phone Julia Chatterjee MD Primary Care Provider [phone] Encounter Details Date Type Department Care Team (Late st Contact Info) Description 01/23/2017 12:30 PM EST Office Visit Hematology/Oncology at [address] [phone] Lee Ann Rodriguez MD [facility] DR HEMATOLOGY [place] [address] Large granular lymphocyte disorder; Neutropenia, unspecified type [...] Ulcerative colitis Diagnosed around 2011. Worked with bulk mail clerk with resolution of symptoms food based supplements [...] flow ) are being pursued at the [place] [facility]. Should ??cytopenias persist , it may [...] 13.4, plt 162 Neutrophils 12.9 Lymphocytes 66.5 Murray 19.3 Eosinophils 0.4 Basophils 0.0 Immature grans [...] ASPIRATION W/BX THROUGH SAME INCISION/SITE Right 01/08/2017 ([facility] BONE MARROW ASP PERFORMED W/BX THRU BX INCISION (WRVU 0.16) performed by Lee Ann Rodriguez MD at [facility] ??? PRO BONE MARROW BX, NEEDLE/TROCAR Right 01/08/2017 ([facility]) BONE MARROW,BIOPSY (WRVU 1.37) performed by Lee Ann Rodriguez MD at [facility] ??? PRO COLONOSCOPY, BIOPSY 07/05/2011 COLONOSCOPY FLEXIBLE, WITH BX performed by MARY CASTRO at [facility] ??? PRO COLONOSCOPY, REMV LESN, SNARE 07/05/2011 COLONOSCOPY, POLYPECTOMY, REMOVAL LESION BY SNARE performed by MARY CASTRO at [facility] Medications; Current Outpatient Prescriptions on [...] infusion 1,000 mL Intravenous Continuous Radha Cooper, PRACTICE ADMINISTRATOR Allergies: Allergies Allergen Reactions ??? Benzalkonium Chloride Family History: Father- 87, healthy Mother- 83, healthy 4 brothers and 2 sisters all healthy Social History: Lives in [facility]. . 1 son 38 years old- healthy. 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 [...] are being pursued at the [facility]. Should ??cytopenias persist , it may [...] receptor gene rearrangement detected. Radiology: US at [facility] 11/2016. Liver 14.5 cm. [...] methotrexate. She has been working with a bulk mail clerk who started her on selenium and zinc. Counts are a bit higher so we will see. Assistant Floor Covering Printer has been helping her with bowel issues. [...] LGL, no longer necessary. ?? US at [facility] - listed above ?? [...] on the BMBX. I placed order at [facility] for blood draw and called pt to come to [facility] in the next 2-3 weeks to 3K [...] This note was written or modified using e-SENS voice recognition software. The final note was [...] 1:00 PM EST Office Visit Hematology/Oncology at [address] [phone] Lee Ann Rodriguez MD [facility] DR HEMATOLOGY [place] [address] Leti Anderson APRN [facility] DR HEMATOLOGY [place] [address] documented as of this encounter Results * Miscellaneous Lab request (02/28/2017 10:01 AM EST) Label Request received in lab. [facility] Blood specimen (specimen) 02/28/2017 10:01 AM EST 02/28/2017 10:13 AM EST Narrative Resulting Agency Comment Spec In Lab Lee Ann Rodriguez MD LAB SEND OUT ORD ERABLES [facility] [place] [address] * Miscellaneous Lab request (02/28/2017 10:01 AM EST) Label Request received in lab. 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
--- OUTSIDE RECORDS SUMMARY | 2023-10-24 02:36 | XMS_ITS | Encounter Summary ---
Author Organization [facility] [place] [address] Care Team Providers Care Rock Room Worker Name Role Phone Julia Chatterjee MD Primary Care Provider [phone] Encounter Details Date Type Department Care Team (Late Contact Info) Description 08/23/2017 Orders Only Hematology/Oncology at [address] [phone] Mera Cintron RN Neutropenia, unspecified type; Large [...] PM EST Office Visit Hematology/Oncology at [address] [phone] Lee Ann Jay MD [facility] DR [place] [address] Leti Anderson, FEATHER EDGER [facility] [place] [address] documented as of this encounter Visit Diagnoses Diagnosis Neutropenia, unspecified type 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
--- OUTSIDE RECORDS SUMMARY | 2023-10-24 02:36 | XMS_ITS | Encounter Summary ---
Author Organization [facility] Address [facility] [place] [address] Care Team Providers Care Journalism Teacher Name Role Phone Julia Chatterjee MD Primary Care Provider [phone] Encounter Details Date Type Department Care Team (Late st Contact Info) Description 10/23/2017 1:00 PM EDT Office Visit Hematology/Oncology at [address] [phone] Lee Ann Jay MD [facility] DR [place] [address] Neutropenia, unspecified type Social History Tobacco Use [...] Ulcerative colitis Diagnosed around 2011. Worked with community living specialist with resolution of symptoms food based supplements [...] flow ) are being pursued at the [place] [facility]. Should ??cytopenias persist , it may [...] 2016. Busy swimming and cycling. Back from [place] with family - nice vacation. Retired! She [...] performed by Lee Ann Jay MD at [facility] ??? PRO BONE MARROW BX, NEEDLE/TROCAR Right 01/08/2017 ([facility]) BONE MARROW,BIOPSY (WRVU 1.37) performed by Lee Ann Jay MD at [facility] ??? PRO COLONOSCOPY, BIOPSY 07/05/2011 COLONOSCOPY FLEXIBLE, WITH BX performed by MARY CASTRO at [facility] ??? PRO COLONOSCOPY, REMV TEJASN, SNARE 07/05/2011 COLONOSCOPY, POLYPECTOMY, REMOVAL LESION BY SNARE performed by MARY CASTRO at [facility] Medications; Current Outpatient Prescriptions on File [...] white counts. Social History: Lives in [facility]. . 1 son 38 years old- healthy. 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 Should ??cytopenias persist , it may [...] lymphocytes. She has been working with a community living specialist who started her on selenium and zinc and about a dozen other supplements. Counts are a bit higher so we will see. Burning Machine Operator has been helping her with bowel issues. These are better w/ diet adjustments. Diet changes have helped her UC and GI symptoms. Of note, she is on multiple naturopathic medications through her dumper mold cleaner - mostly to help w/ herGI tract. [...] This note was written or modified using Op[employer] voice recognition software. The final note was screened for mistakes. Please excuse any remaining errors. documented in this encounter Plan of Treatment Upcoming Encounters Date Type Department Care Team (Late st Contact Info) Description 04/15/2024 1:00 PM EST Office Visit Hematology/Oncology at [address] [phone] Lee Ann Jay MD [facility] HEMATOLOGY [place] [address] Leti Anderson APRN [facility] [place] [address] documented as of this encounter Procedures Procedure [...] type documented in this encounter Care Teams Journalism Teacher Relationship Specialty Start Date End Date Julia Chatterjee MD [facility] [address] [place] [address] PCP - General 01/31/10 documented as of this encounter
--- OUTSIDE RECORDS SUMMARY | 2023-10-24 02:36 | XMS_ITS | Encounter Summary ---
Author Organization [facility] Address [facility] [place] [address] Care Team Providers Care Hydroelectric Production Technician Name Role Phone Julia Chatterjee MD Primary Care Provider [phone] Encounter Details Date Type Department Care Team (Late st Contact Info) Description 01/08/2017 8:33 AM EDT - 01/08/2017 10:06 AM EDT Hospital Encounter [facility] [place] [address] Lee Ann Jay MD [facility] [place] [address] Discharge Disposition: Home Social History Tobacco Use [...] 5pm or on a weekend: Call the [facility] hat forming machine operator at and ask for the physician marketing communications assistant covering for your doctor. Instructions following sedation [...] occurs, please contact your M. D. [address] [facility] [address] ??? [place] [address] ??? [phone] ??? [email or web address] [place] [place] ??? [facility] ??? [facility] ??? [facility] documented in this encounter Medications at [...] procedure. Discharge to: Home Radha Cooper MSN, DIRECTOR OF SUSTAINABILITY PROGRAMS Nurse Practitioner Section of Hematology/Oncology [facility] Office phone: documented in this encounter Procedure Notes * Radha Cooper APRN - 01/08/2017 9:44 AM EDTAssociated Order(s): ([facility]) UNILAT BONE MARROW BIOSPY; ([facility] MSURG)BONE MARROW ASP PERFORMED W/BX THRU BX INCISION BONE MARROW BIOPSY AND ASPIRATION PROCEDURE NOTE Bone Marrow Biopsy & Aspiration with Conscious Sedation - Unilateral Date/Time of Procedure: 01/08/2017 Proceduralist: Radha Cooper, RN, MS, ICE SCRAPER DIAGNOSIS: neutropenia Pre-Procedure: (x) Consent signed and [...] PM EST Office Visit Hematology/Oncology at [address] [phone] Lee Ann Jay MD [facility] [address] [place] [address] Leti Anderson APRN [facility] [place] [address] documented as of this encounter Procedures Procedure [...] FINAL REPORT Routine 017 9:31 AM EDT [facility] MACE TEST-MACE Routine 01/08/2017 9 :31 AM EDT IRON STAIN, BONE MARROW Routine 01/09/20 17 9:31 AM EDT BONE MARROW PANEL ([facility]/CGP/APD) Routine 01/08/2017 9:31 AM EDT ([facility] MSURG) [...] chromo report acquired (01/08/2017 11:45 AM EDT) [facility] Cytogenetics Acquired Report Final Report ?[id number] Specimen Type: Bone Marrow Specimen Condition: ~ [...] By: Christiano PONCE, Ph.D., Liming Director, Cytogenetics [facility] 01/08/2017 11:4 5 AM EDT Radha Cooper APRN HEMATOLOGY ORDERABLE S [facility] [place] [address] * ([facility] MS[facility]G)BONE MARROW ASP PERFORMED W/BX THRU BX INCISION (01/08/2017 9:45 AM EDT) Narrative Radha Cooper, DIRECTOR OF SUSTAINABILITY PROGRAMS - 01/08/2017 9:45 AM EDT Radha Cooper APRN ? 01/08/2017 ??9:45 AM BONE MARROW BIOPSY AND ASPIRATION PROCEDURE NOTE Bone Marrow Biopsy & Aspiration with Conscious Sedation - Unilateral Date/Time of Procedure: 01/08/2017 Proceduralist: Radha Cooper, RN, MS, ICE SCRAPER DIAGNOSIS: neutropenia Pre-Procedure: (x) Consent signed and [...] (01/08/2017 9:45 AM EDT) Narrative Radha Cooper, DIRECTOR OF SUSTAINABILITY PROGRAMS - 01/08/2017 9:45 AM EDT Radha Cooper, DIRECTOR OF SUSTAINABILITY PROGRAMS ? 01/08/2017 ??9:45 AM BONE MARROW BIOPSY AND ASPIRATION PROCEDURE NOTE Bone Marrow Biopsy & Aspiration with Conscious Sedation - Unilateral Date/Time of Procedure: 01/08/2017 Proceduralist: Radha Cooper, RN, MS, ICE SCRAPER DIAGNOSIS: neutropenia Pre-Procedure: (x) Consent signed and [...] Report (01/08/2017 9:31 AM EDT) Final Diagnosis [id number] ? Location: [facility] The signing pathologist has (i) examined the relevant preparation(s) for the specimen(s) and (ii) rendered or confirmed the diagnosis(es). . ? Final Integrated Report INTEGRATED DIAGNOSIS Patient: ??[id number] ?? LETI PARRY Bone Marrow Integrated Results For [id number] == SPECIMEN RESULTS == 1. Normocellular marrow [...] cell population or increase in blasts detected. [place] FLOW REPORT for NK/LGL analysis : NORMAL . No monotypic B-cell population, phenotypically aberrant T-cell population or increase in blasts identified. T-cells/ NK-cells: ?Normal phenotype by CD2, CD3, CD4, CD45, ? CD5, CD7, CD8, CD16, CD56, CD57, CD94, NKG2a, and TCR-gamma/delta. KIR panel: ?No monotypic, normal pattern of TW725m, NR455g, and AI267f (p70). Molecular genetic analysis: ? T CELL [...] results from all diagnostic studies performed at [facility] on this particular biopsy specimen. ??Please refer to the primary report(s) of each individual study for complete text and additional study details. Electronically signed by: ??Shad Rubio MD Verified: ??03/18/2017 ?Hematopathologist Performed at: ??-[facility] Dept. of Pathology, [place], [place] ?Molecular Genetics RESULTS ? T CELL [...] paraffin embedded tissue. ??PCR was performed using [employer] ??'s TCR Beta gene clonality assay (primer mixes TBA, TBB, TBC), and TCR Gamma gene clonality assay (primer mixes TGA and TGB). ??Fluorescently labeled PCR products were using the Applied JuicyCanvas 3500 capillary electrophoresis system. RESULTS: ??The appropriate [...] study (Miguelangel et. al. Leukemia. ??2002; 17 (12):2135-7968), the Invivoscribe B cell IgH gene rearrangement [...] determined by the Molecular Pathology Laboratory at [facility]. It has not been cleared or approved by the U.S. Food and Drug Administration. However, as a C.L.I.A. licensed ??laboratory, our facility is approved for such high complexity clinical testing. _ Electronically signed by: ??Shad Rubio MD Verified: ??01/21/2017 ?Hematopathologist Performed at: ??-[facility] Dept. of Pathology, [place], [place] ? Bone Marrow Final DIAGNOSIS 1. Normocellular marrow with normal trilineage hematopoesis, with minor CD8+ T-cell interstitial infiltrate (5% of marrow) 2. Neutropenia, increased large granular lymphocytes, peripheral blood . DIAGNOSIS 3. NK clonality studies pending. Electronically signed by: ??Shad Rubio MD Verified: ??01/11/2017 ?Hematopathologist Performed at: ??-[facility] Dept. of Pathology, [place], [place] DISCUSSION The findings are suspicious ??but not diagnostic for ?Large Granular lymphocytic Leukemia . The T lymphocytes are CD8 dominant, but do not show aberrancy by flow analysis. NK cells are not interrogated for clonality by our studies and clonality studies ( KIR assessment by flow ) are being pursued at the [facility]. Should cytopenias persist , it may [...] developed and their performance characteristics determined by [facility] Clinical Laboratories. ??They have not been cleared [...] Rubio MD Verified: ??01/09/2017 ?Hematopathologist Performed at: ??-[facility] Dept. of Pathology, [place], [place] DISCUSSION Blasts based on CD45 expression and orthogonal light scatter, are not increased. The T-lymphocytes, CD56+ NK cells and B- lymphocytes comprise approx 69%, 30%, 2% of the gated population, respectively. The CD19 positive B-cells have a polytypic expression of surface immunoglobulin light chain (Odum:Lambda ratio at 1.6). The T-cells are an admixture of CD4+ and CD8+ T lymphocytes (ratio of 0.6). No loss or atypical intensity distributions are seen for any shankar T antigen (CD2, 3, 4+8, 5, 7). There is no increase in JS28-pnlaregn/CD3-n eg NK cells or CD3+CD16+ aberrant T cells. Flow analysis is an ancillary study. A definite diagnosis requires correlation with the morphologic features of this process and if necessary, correlation with other ancillary studies like immunohistochemistr y, enzyme cytochemistry and/or cyto/ molecular genetics. This test was developed and its performance characteristics determined by the Clinical Flow Cytometry Laboratory at [facility]. It has not been cleared or [...] high complexity clinical laboratory testing. SPECIMEN PROCESSING [id number] Cells for immunophenotypic analysis were derived from bone marrow aspirate. ??CD45 vs side scatter gating was utilized to identify a lymphoid analysis region that comprises approximately 13-15% of all cells. The following markers were assessed: CD2, CD3, CD4, CD5, CD7, CD8, CD10, CD16, CD19, CD45, CD56, CD57, kappa light chain, and lambda light chain. CLINICAL INFORMATION neutropenia 03/18/2017 5:14 PM [facility] BONE MARROW STRUCTURE / Unknown 01/08/2017 9:31 AM EDT 01/08/2017 9:31 AM EDT Radha Cooper APRN PATHOLOGY/CYTOLOGY O RDERABLES [facility] [address] * [facility] Mace Test-Mace (01/08/2017 9:31 AM EDT) [facility] Mace Test ?Result ? Flag ??Unit ??RefValue [...] reagent. ?Its performance characteristics were determined by [facility] in a manner consistent with CLIA [...] KIR panel: ??No monotypic, normal pattern ?of YR335m, KQ739z, and HC693g (p70). ?Quality assessment: ??Specimen received within validated ?guidelines. ??Microscopic Description ? SEE COMMENTS ?A Ditzzu-Tgsbqk-dbrszt d slide prepared from the flow ?cytometry specimen is examined. ??The specimen contains ?maturing hematopoietic precursors. ??No morphologic features ?of acute leukemia, lymphoma or a plasma cell proliferative ?disorder are identified. ?Test Performed by: ?[facility] ?[address] [place], [place] [address] [place] [address] LABORATORY Blood specimen (specimen) Venous Draw / Unknown 01/08/2017 9:31 AM EDT 01/09/2017 3:59 PM EDT Narrative Resulting Agency Comment Spec In Lab Radha Cooper APRN LAB SEND OUT ORDERAB LES Performing Organization Address [facility]/ZIP Co de Phone Number [facility] [place] [address] * Myeloid Seq Panel (01/08/2017 9:31 AM EDT) Bone marrow specimen (specimen) 01/08/2017 9:31 AM EDT 01/10/2017 6:43 AM EDT Narrative Resulting Agency Comment Spec In Lab Radha Cooper DIRECTOR OF SUSTAINABILITY PROGRAMS CHEMISTRY ORDERABLES Performing Organization Address [facility] [place] [address] * Immunophenotyping Flow Cytometry (01/08/2017 9:31 AM EDT) Immunophenotyping Flow See Comment [facility] Comment: When completed by the Pathologist, the Flow Cytometry Report ([id number]) will display under the Pathology Results section within [facility]. Bone marrow specimen (specimen) 01/08/2017 9:31 AM EDT 01/08/2017 10:11 AM EDT Narrative Resulting Agency Comment Spec In Lab Radha Cooper DIRECTOR OF SUSTAINABILITY PROGRAMS HEMATOLOGY ORDERABLE S Performing Organization Address [facility] Co de Phone Number [facility] [place] [address] * Iron Stain, Bone Marrow (01/08/2017 9:31 AM EDT) Bone Marrow Iron Stain See Comment [facility] Comment:See Bone Marrow Repo rt [id number] under Hematopathology Reports. Bone marrow specimen (specimen) 01/08/2017 9:31 AM EDT 01/08/2017 10:11 AM EDT Narrative Resulting Agency Comment Spec In Lab Radha Cooper DIRECTOR OF SUSTAINABILITY PROGRAMS HEMATOLOGY ORDERABLE S Performing Organization Address City/[facility]/ZIP Co de Phone Number [facility] [place] [address] * Scan, Peripheral Blood (01/08/2017 8:56 AM EDT) Plat estimate Normal [facility] RBC Morphology Normal [facility] Blood specimen (specimen) 01/08/2017 8:56 AM EDT 01/08/2017 10:11 AM EDT Narrative Resulting Agency Comment Spec In Lab Radha Cooper DIRECTOR OF SUSTAINABILITY PROGRAMS HEMATOLOGY ORDERABLE S [facility] [place] [address] * (ABNORMAL) Differential, Automated (01/08/2017 8:56 AM EDT) Pathologist [facility] Neutrophil % 10.4 % [facility] Neutrophil Absolute 0.21(Crit ical) 1.70 - 6.10 x10(3)/mc L [facility] Comment: This result has been called to ELIZABETH SALGADO by Mcaky Rodriguez on 01 08 2017 at 1049, and has been read back. Lymph % 65.2 % [facility] Lymphocytes Abs 1.3 0.9 - 3.2 x10(3)/mc L [facility] Monocyte % 18.4 % [facility] Monocyte Abs 0.4 0.3 - 0.9 x10(3)/mc L [facility] Eos % 0.5 % [facility] Eosinophils Abs 0.0 0.0 - 0.4 x10(3)/mc L [facility] Basophil % 0.5 % [facility] Baso Absolute 0.0 0.0 - 0.1 x10(3)/mc L [facility] Immature Gran % 5.00 % [facility] Comment: Immature granulocytes(IG's)percentage and absolute count will include metamyelocytes, myelocytes, and promyelocytes. Blood smears from CBCs yielding IG's will be scanned manually for concordance. If this scan disagrees with the automated IG or if promyelocytes are noted, a manual differential will be performed. Immature Gran Absolute 0.10(H) 0.00 - 0.04 x10(3)/ L [facility] Blood specimen (specimen) 01/08/2017 8:56 AM EDT 01/08/2017 10:11 AM EDT Narrative Resulting Agency Comment Spec In Lab Radha Cooper DIRECTOR OF SUSTAINABILITY PROGRAMS HEMATOLOGY ORDERABLE S [facility] [place] [address] * (ABNORMAL) Hemogram (01/08/2017 8:56 AM EDT) White Blood Cell 2.0(L) 4.0 - 9.5 x10(3)/ L [facility] Red Blood Cell 4.55 4.00 - 5.21 x10(6)/ L [facility] Hemoglobin 13.3 11.7 - 15.5 gm/dL [facility] Hematocrit 40.9 35.7 - 45.8 % [facility] Mean Cell Volume 89.9 82.6 - 94.4 [facility] Mean Cell Hemoglobin 29.2 27.1 - 32.0 pg [facility] Mean Cell Hemoglobin Concentration 32.5 31.7 - 35.0 gm/dL [facility] Platelet 183 145 - 357 x10(3)/ L [facility] RDW Standard Deviation 40.4 37.0 - 46.0 [facility] RDW coefficient of variation 12.2 11.5 - 14.1 % [facility] Mean Platelet Volume 10.2 7.6 - 12.9 [facility] NRBC% auto 0.0 % [facility] NRBC Absolute 0.000 0.000 - 0.000 x10(3)/ L [facility] Blood specimen (specimen) 01/08/2017 8:56 AM EDT 01/08/2017 10:11 AM EDT Narrative Resulting Agency Comment Spec In Lab Radha Cooper DIRECTOR OF SUSTAINABILITY PROGRAMS HEMATOLOGY ORDERABLE S [facility] [place] [address] documented in this encounter Visit Diagnoses Not [...] (Due) documented in this encounter Care Teams Hydroelectric Production Technician Relationship Specialty Start Date End Date Julia Chatterjee MD [address] [place] [address] PCP - General 01/31/10 documented as of this encounter
--- OUTSIDE RECORDS SUMMARY | 2023-10-24 02:36 | XMS_ITS | Encounter Summary ---
Author Organization [facility] Address [facility] [place] [address] Care Team Providers Care Soil And Plant Scientist Name Role Phone Julia Chatterjee MD Primary Care Provider [phone] Encounter Details Date Type Department Care Team (Late st Contact Info) Description 01/08/2017 9:30 AM EDT - 01/08/2017 10:00 AM EDT Surgery [place] [address] Lee Ann Jay MD [facility] DR HEMATOLOGY [place] [address] ([facility] MSURG) BONE MARROW ASP PERFORMED W/BX [...] 5pm or on a weekend: Call the [facility] cement production plant operator at and ask for the physician cosmetics demonstrator covering for your doctor. Instructions following sedation [...] occurs, please contact your M. D. [address] [facility] [address] ??? [place] [address] ??? [phone] ??? [email or web address] [email or web address] [employer] ??? [facility] ??? [facility] ??? .[facility] documented in this encounter Medications at Time [...] this encounter H&P Notes * Radha Cooper, ADHESIVE BANDAGE MAKING OPERATOR - 01/08/2017 9:12 AM EDT Images from [...] procedure. Discharge to: Home Radha Cooper, MSN, ADHESIVE BANDAGE MAKING OPERATOR Nurse Practitioner Section of Hematology/Oncology [facility] Office phone: documented in this encounter Procedure Notes * Radha Cooper APRN - 01/08/2017 9:44 AM EDTAssociated Order(s): ([facility] MSURG) UNILAT BONE MARROW BIOSPY; ([facility] MSURG)BONE MARROW ASP PERFORMED W/BX THRU BX INCISION BONE MARROW BIOPSY AND ASPIRATION PROCEDURE NOTE Bone Marrow Biopsy & Aspiration with Conscious Sedation - Unilateral Date/Time of Procedure: 01/08/2017 Proceduralist: Radha Cooper, RN, MS, CRAFT COORDINATOR DIAGNOSIS: neutropenia Pre-Procedure: (x) Consent signed and [...] PM EST Office Visit Hematology/Oncology at [address] [address] Lee Ann Jay MD [facility] DR HEMATOLOGY [place] [address] Leti Anderson APRN [facility] HEMATOLOGY [place] [address] documented as of this encounter Procedures Procedure [...] REPORT Routine 017 9:31 AM EDT MISC MACE TEST-MACE Routine 01/08/2017 9 :31 AM [...] report acquired (01/08/2017 11:45 AM EDT) Pathologist [facility] Acquired Report Final Report ?[id number] Specimen Type: Bone Marrow Specimen Condition: ~ [...] (Electronic Signature) Verified By: Christiano PONCE, Ph.D., [facility] Systeming Director, Cytogenetics [facility] 01/08/2017 11:4 5 AM EDT Radha Cooper ADHESIVE BANDAGE MAKING OPERATOR HEMATOLOGY ORDERABLE S [facility] [place] [address] * ([facility] MSURG)BONE MARROW ASP PERFORMED W/BX THRU BX INCISION (01/08/2017 9:45 AM EDT) Narrative Radha Cooper, ADHESIVE BANDAGE MAKING OPERATOR - 01/08/2017 9:45 AM EDT Radha Cooper, JAYLEN ? 01/08/2017 ??9:45 AM BONE MARROW BIOPSY AND ASPIRATION PROCEDURE NOTE Bone Marrow Biopsy & Aspiration with Conscious Sedation - Unilateral Date/Time of Procedure: 01/08/2017 Proceduralist: Radha Cooper, RN, MS, CRAFT COORDINATOR DIAGNOSIS: neutropenia Pre-Procedure: (x) Consent signed and [...] (01/08/2017 9:45 AM EDT) Narrative Radha Cooper, ADHESIVE BANDAGE MAKING OPERATOR - 01/08/2017 9:45 AM EDT Radha Cooper, ADHESIVE BANDAGE MAKING OPERATOR ? 01/08/2017 ??9:45 AM BONE MARROW BIOPSY AND ASPIRATION PROCEDURE NOTE Bone Marrow Biopsy & Aspiration with Conscious Sedation - Unilateral Date/Time of Procedure: 01/08/2017 Proceduralist: Radha Cooper, RN, MS, CRAFT COORDINATOR DIAGNOSIS: neutropenia Pre-Procedure: (x) Consent signed and [...] Report (01/08/2017 9:31 AM EDT) Final Diagnosis [id number] ? Location: [facility] The signing pathologist has (i) examined the relevant preparation(s) for the specimen(s) and (ii) rendered or confirmed the diagnosis(es). . ? Final Integrated Report INTEGRATED DIAGNOSIS Patient: ??[id number] ?? LETI PARRY Bone Marrow Integrated Results [...] cell population or increase in blasts detected. LAUREL FLOW REPORT for NK/LGL analysis : NORMAL . No monotypic B-cell population, phenotypically aberrant T-cell population or increase in blasts identified. T-cells/ NK-cells: ?Normal phenotype by CD2, CD3, CD4, CD45, ? CD5, CD7, CD8, CD16, CD56, CD57, CD94, NKG2a, and TCR-gamma/delta. KIR panel: ?No monotypic, normal pattern of YY135v, CZ389l, and KJ691f (p70). Molecular genetic analysis: ? T CELL [...] [facility] [place] Dept. of [place]ology, [place], [place] ?Molecular Genetics RESULTS ? T CELL [...] paraffin embedded tissue. ??PCR was performed using [employer] ??'s TCR Beta gene clonality assay (primer mixes TBA, TBB, TBC), and TCR Gamma gene clonality assay (primer mixes TGA and TGB). ??Fluorescently labeled PCR products were using the Applied Ushi 3500 capillary electrophoresis system. RESULTS: ??The appropriate [...] study (francesca Means. al. Leukemia. ??2002; 17 (12):1203-6671), the CallidusCloudribe B cell IgH gene rearrangement assay was [...] [facility] [place] Dept. of Pathology, [place], [place] ? Bone Marrow Final DIAGNOSIS 1. Normocellular marrow with normal trilineage hematopoesis, with minor CD8+ T-cell interstitial infiltrate (5% of marrow) 2. Neutropenia, increased large granular lymphocytes, peripheral blood . DIAGNOSIS 3. NK clonality studies pending. Electronically signed by: ??Shad Rubio MD Verified: ??01/11/2017 ?Hematopathologist Performed at: ??-[facility] [place] Dept. of Pathology, [place], [place] DISCUSSION The findings are suspicious ??but not diagnostic for ?Large Granular lymphocytic Leukemia . The T lymphocytes are CD8 dominant, but do not show aberrancy by flow analysis. NK cells are not interrogated for clonality by our studies and clonality studies ( KIR assessment by flow ) are being pursued at the [facility]. Should cytopenias persist , it may be [...] [facility] [place] Dept. of Pathology, [place] DISCUSSION Blasts based on CD45 expression and orthogonal light scatter, are not increased. The T-lymphocytes, CD56+ NK cells and B- lymphocytes comprise approx 69%, 30%, 2% of the gated population, respectively. The CD19 positive B-cells have a polytypic expression of surface immunoglobulin light chain ([place]:Lambda ratio at 1.6). The T-cells are an admixture of CD4+ and CD8+ T lymphocytes (ratio of 0.6). No loss or atypical intensity distributions are seen for any shankar T antigen (CD2, 3, 4+8, 5, 7). There is no increase in GH91-aiilrxor/CD3-n eg NK cells or CD3+CD16+ aberrant T cells. Flow analysis is an ancillary study. A definite diagnosis requires correlation with the morphologic features of this process and if necessary, correlation with other ancillary studies like immunohistochemistr y, enzyme cytochemistry and/or cyto/ molecular genetics. This test was developed and its performance characteristics determined by the Clinical Flow Cytometry Laboratory at [facility]. It has not been cleared or approved [...] high complexity clinical laboratory testing. SPECIMEN PROCESSING [id number] Cells for immunophenotypic analysis were derived from bone marrow aspirate. ??CD45 vs side scatter gating was utilized to identify a lymphoid analysis region that comprises approximately 13-15% of all cells. The following markers were assessed: CD2, CD3, CD4, CD5, CD7, CD8, CD10, CD16, CD19, CD45, CD56, CD57, kappa light chain, and lambda light chain. CLINICAL INFORMATION neutropenia 03/18/2017 5:[address] [facility] BONE MARROW STRUCTURE / Unknown 01/08/2017 9:31 AM EDT 01/08/2017 9:31 AM EDT Radha Cooper APRN PATHOLOGY/CYTOLOGY O RDERABLES [facility] [place] [address] * [facility] Mace Test-Mace (01/08/2017 9:31 AM EDT) [facility] Mace Test ?Result ? Flag ??Unit ??RefValue [...] reagent. ?Its performance characteristics were determined by [facility] in a manner consistent with CLIA [...] KIR panel: ??No monotypic, normal pattern ?of YR699g, LC329t, and AO656a (p70). ?Quality assessment: ??Specimen received within validated ?guidelines. ??Microscopic Description ? SEE COMMENTS ?A Lqtgpo-Iynisk-nbvtgo d slide prepared from the flow ?cytometry specimen is examined. ??The specimen contains ?maturing hematopoietic precursors. ??No morphologic features ?of acute leukemia, lymphoma or a plasma cell proliferative ?disorder are identified. ?Test Performed by: ?[facility] ?[address] [place], [place] [id number] [place] [address] LABORATORY Blood specimen (specimen) Venous Draw / Unknown 01/08/2017 9:31 AM EDT 01/09/2017 3:59 PM EDT Narrative Resulting Agency Comment Spec In Lab Radha Cooper APRN LAB SEND OUT ORDERAB LES Performing Organization Address [facility] Co de Phone Number [facility] [place] [address] * Myeloid Seq Panel (01/08/2017 9:31 AM EDT) Bone marrow specimen (specimen) 01/08/2017 9:31 AM EDT 01/10/2017 6:43 AM EDT Narrative Resulting Agency Comment Spec In Lab Radha Cooper APRN CHEMISTRY ORDERABLES Performing Organization Address [facility] de Phone Number [facility] [place] [address] * Immunophenotyping Flow Cytometry (01/08/2017 9:31 AM EDT) Immunophenotyping Flow See Comment [facility] Comment: When completed by the Pathologist, the Flow Cytometry Report ([id number]) will display under the Pathology Results section within [facility]. Bone marrow specimen (specimen) 01/08/2017 9:31 AM EDT 01/08/2017 10:11 AM EDT Narrative Resulting Agency Comment Spec In Lab Radha Cooper APRN HEMATOLOGY ORDERABLE S Performing Organization Address [facility] Co de Phone Number [facility] [place] [address] * Iron Stain, Bone Marrow (01/08/2017 9:31 AM EDT) Bone Marrow Iron Stain See Comment [facility] Comment:See Bone Marrow Repo rt [id number] under Hematopathology Reports. Bone marrow specimen (specimen) 01/08/2017 9:31 AM EDT 01/08/2017 10:11 AM EDT Narrative Resulting Agency Comment Spec In Lab Radha D Schaal ADHESIVE BANDAGE MAKING OPERATOR HEMATOLOGY ORDERABLE S [facility] [place] [address] * Scan, Peripheral Blood (01/08/2017 8:56 AM EDT) Plat estimate Normal [facility] RBC Morphology Normal [facility] Blood specimen (specimen) 01/08/2017 8:56 AM EDT 01/08/2017 10:11 AM EDT Narrative Resulting Agency Comment Spec In Lab Radha Cooper ADHESIVE BANDAGE MAKING OPERATOR HEMATOLOGY ORDERABLE S Performing Organization Address City/[facility]/ZIP Co de Phone Number [facility] [place] [address] * (ABNORMAL) Differential, Automated (01/08/2017 8:56 AM EDT) Pathologist [facility] Neutrophil % 10.4 % [facility] Neutrophil Absolute 0.21(Crit ical) 1.70 - 6.10 x10(3)/mc L [facility] Comment: This result has been called to ELIZABETH SALGADO by Mckay Rodriguez on 01 08 2017 at 1049, and has been read back. Lymph % 65.2 % [facility] Lymphocytes Abs 1.3 0.9 - 3.2 x10(3)/mc L [facility] Monocyte % 18.4 % [facility] Monocyte Abs 0.4 0.3 - 0.9 x10(3)/mc L [facility] Eos % 0.5 % [facility] Eosinophils Abs 0.0 0.0 - 0.4 x10(3)/mc L [facility] Basophil % 0.5 % [facility] Baso Absolute 0.0 0.0 - 0.1 x10(3)/mc L [facility] Immature Gran % 5.00 % [facility] Comment: Immature granulocytes(IG's)percentage and absolute count will include metamyelocytes, myelocytes, and promyelocytes. Blood smears from CBCs yielding IG's will be scanned manually for concordance. If this scan disagrees with the automated IG or if promyelocytes are noted, a manual differential will be performed. Immature Gran Absolute 0.10(H) 0.00 - 0.04 x10(3)/mc L [facility] Blood specimen (specimen) 01/08/2017 8:56 AM EDT 01/08/2017 10:11 AM EDT Narrative Resulting Agency Comment Spec In Lab Radha Cooper ADHESIVE BANDAGE MAKING OPERATOR HEMATOLOGY ORDERABLE S [facility] [place] [address] * (ABNORMAL) Hemogram (01/08/2017 8:56 AM EDT) White Blood Cell 2.0(L) 4.0 - 9.5 x10(3)/mc L [facility] Red Blood Cell 4.55 4.00 - 5.21 x10(6)/mc L [facility] Hemoglobin 13.3 11.7 - 15.5 gm/dL [facility] Hematocrit 40.9 35.7 - 45.8 % [facility] Mean Cell Volume 89.9 82.6 - 94.[address] [facility] Mean Cell Hemoglobin 29.2 27.1 - 32.[address] [facility] Mean Cell Hemoglobin Concentration 32.5 31.7 - 35.0 gm/dL [facility] Platelet 183 145 - 357 x10(3)/mc L [facility] RDW Standard Deviation 40.4 37.0 - 46.[address] [facility] RDW coefficient of variation 12.2 11.5 - 14.1 % [facility] Mean Platelet Volume 10.2 7.6 - 12.[address] [facility] NRBC% auto 0.0 % [facility] NRBC Absolute 0.000 0.000 - 0.000 x10(3)/mc L [facility] Blood specimen (specimen) 01/08/2017 8:56 AM EDT 01/08/2017 10:11 AM EDT Narrative Resulting Agency Comment Spec In Lab Radha Hurley Blairmoon ADHESIVE BANDAGE MAKING OPERATOR HEMATOLOGY ORDERABLE S [facility] [place] [address] documented in this encounter Visit Diagnoses Not [...] (Due) documented in this encounter Care Teams Soil And Plant Scientist Relationship Specialty Start Date End Date Julia Chatterjee MD [address] [facility] [address] [place] [address] PCP - General 01/31/10 documented as of this encounter
--- OUTSIDE RECORDS SUMMARY | 2023-10-24 02:36 | XMS_ITS | Encounter Summary ---
Author Organization [facility] Address [facility] [place] [address] Care Team Providers Care Phone Counselor Name Role Phone Julia Chatterjee MD Primary Care Provider [phone] Encounter Details Date Type Department Care Team (Late st Contact Info) Description 03/20/2017 2:30 PM EST Office Visit Hematology/Oncology at [address] [address] Lee Ann Jay MD [facility] DR [place] [address] Neutropenia, unspecified type Social History Tobacco Use [...] Ulcerative colitis Diagnosed around 2011. Worked with [employer] senior specialist with resolution of symptoms food based [...] flow ) are being pursued at the [place] [facility]. Should ??cytopenias persist , it may [...] W/BX THROUGH SAME INCISION/SITE Right 01/08/2017 ([facility]) BONE MARROW ASP PERFORMED W/BX THRU BX INCISION (WRVU 0.16) performed by Lee Ann Jay MD at [facility] ??? PRO BONE MARROW BX, NEEDLE/TROCAR Right 01/08/2017 ([facility] MSURG) BONE MARROW,BIOPSY (WRVU 1.37) performed by Lee Ann Jay MD at [facility] ??? PRO COLONOSCOPY, BIOPSY 07/05/2011 COLONOSCOPY FLEXIBLE, WITH BX performed by MARY CASTRO at [facility] ENDOSCOPY ??? PRO COLONOSCOPY, REMV LESN, SNARE 07/05/2011 COLONOSCOPY, POLYPECTOMY, REMOVAL LESION BY SNARE performed by MARY CASTRO at [facility] ENDOSCOPY Medications; Current Outpatient Prescriptions [...] low white counts. Social History: Lives in [place]. . 1 son 38 years old- healthy. 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 [...] flow ) are being pursued at the [facility]. Should ??cytopenias persist , it may be [...] receptor gene rearrangement detected. Radiology: US at [facility] 11/2016. Liver 14.5 cm. Spleen 8cm. Assessment and Recommendations: 66 y.o. Healthy female who has been referred to us for leukopenia. She has had leukopenia since 2007 with normal hemoglobin and platelet. She has no symptoms- no increased frequency of infections. 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 She has been working with a lean [employer] senior specialist who started her on selenium and zinc and about a dozen other supplements. Counts are a bit higher so we will see. Claim Investigator has been helping her with bowel issues. These are better w/ diet adjustments. Diet changes have helped her UC and GI symptoms. Of note, she is on multiple naturopathic medications through her tire specialist - mostly to help w/ herGI tract. [...] LGL, no longer necessary. ?? US at [facility] - listed above ?? BMBx - listed above I discussed all of the above with the patient and all of her questions were answered. Support and counseling given as appropriate. This note was written or modified using [employer] voice recognition software. The final note was screened for mistakes. Please excuse any remaining errors. ?? documented in this encounter Plan of Treatment Upcoming Encounters Date Type Department Care Team (Late st Contact Info) Description 04/15/2024 1:00 PM EST Office Visit Hematology/Oncology at [address] [address] Lee Ann Jay MD [facility] DR [place] [address] Leti Anderson APRN [facility] [place] [address] documented as of this encounter Visit Diagnoses Diagnosis Neutropenia, unspecified type documented in this encounter Care Teams Phone Counselor Relationship Specialty Start Date End Date Julia Chatterjee MD [facility] [address] [place] [address] PCP - General 01/31/10 documented as of this encounter
--- OUTSIDE RECORDS SUMMARY | 2023-10-24 02:36 | XMS_ITS | Encounter Summary ---
Author Organization [facility] Address [facility] [place] [address] Care Team Providers Care Sole Tacker Name Role Phone Julia Chatterjee MD Primary Care Provider [phone] Encounter Details Date Type Department Care Team (Late st Contact Info) Description 07/19/2011 [place] [address] Ana Felton, RN Social History [...] PM EST Office Visit Hematology/Oncology at [address] [address] Lee Ann Jay MD [facility] DR HEMATOLOGY [place] [address] Leti Anderson APRN [facility] [place] [address] documented as of this encounter Visit Diagnoses Not on filedocumented in this encounter Care Teams Sole Tacker Relationship Specialty Start Date End Date Julia Chatterjee MD [facility] [address] [place] [address] PCP - General 01/31/10 documented as of this encounter
--- OUTSIDE RECORDS SUMMARY | 2023-10-24 02:37 | XMS_ITS | Encounter Summary ---
Author Organization [facility] Address [facility] [place] [address] Care Team Providers Care Telegraphic Typewriter Operator Chief Name Role Phone Julia Chatterjee MD Primary Care Provider [phone] Encounter Details Date Type Department Care Team (Late st Contact Info) Description 07/05/2011 10:00 AM EDT - 07/05/2011 11:00 AM EDT Surgery [place] [address] Ayaz eNlson MD [facility] [place] [address] COLONOSCOPY FLEXIBLE, WITH BX (WRVU 3.56) Social [...] occurs please contact your M.D. Please call [phone] before 5 pm with problems, questions or concerns. After 5pm call [phone] and ask to speak with the barrel charrer helper nurse receptionist. Discharge instructions reviewed with patient who expresses understanding. * Patient Instructions* Ayaz Nelson MD - 07/05/2011 10:24 AM EDT Please see Recommendations in the Provation procedure report which is documented in the procedural note in E-[facility]. * Attachments The following attachments cannot be sent through Care Everywhere. * COLONOSCOPY: WHAT TO EXPECT AT HOME ([place]) documented in this encounter Medications at Time [...] PM EST Office Visit Hematology/Oncology at [address] [address] Lee Ann Jay MD [facility] DR [place] [address] Leti Anderson APRN [facility] [place] [address] documented as of this encounter Procedures Procedure [...] 12:21 PM EDT) Surgical Pathology Report ? [facility] ? Provider: ?? AYAZ NELSON ?Pt. Name: ?? LETI PARRY ? Acc #: ?[id number] ?Pt. ? Col Date: ?? 07/05/2011 ? [...] tissues. ? Sections/Processi ng: ??(T2) ??vms/SNS ? [facility] ? Provider: ?? AYAZ NELSON ?Pt. Name: ?? LETI PARRY ? Acc #: ?[id number] ?Pt. ? Col Date: ?? 07/05/2011 ? [...] O OMI Performing Organization Address [facility] Co de Phone Number RUEL SERNA * Specimen to Pathology (surgical or derm) (07/05/2011 10:53 AM EDT) AP Specimen 07/05/2011 10:5 3 AM EDT 07/05/2011 10:53 AM EDT Narrative RUEL SCHULTZIUM - 07/05/2011 10:53 AM EDT Specimen requisition ordered. ??Separate Pathology report to follow Ayaz Nelson MD PATHOLOGY/CYTOLOGY O OMI Performing Organization Address [facility] de Phone Number RUEL SCHULTZIUM * Specimen to Pathology (surgical or derm) (07/05/2011 10:53 AM EDT) AP Specimen 07/05/2011 10:5 3 AM EDT 07/05/2011 10:53 AM EDT Narrative RUEL SCHULTZIUM - 07/05/2011 10:53 AM EDT Specimen requisition ordered. ??Separate Pathology report to follow Ayaz Nelson MD PATHOLOGY/CYTOLOGY O OMI Performing Organization Address [facility] Co de Phone Number RUEL SERNA * Specimen to Pathology (surgical or derm) (07/05/2011 10:53 AM EDT) AP Specimen 07/05/2011 10:5 3 AM EDT 07/05/2011 10:53 AM EDT Narrative RUEL SCHULTZIUM - 07/05/2011 10:53 AM EDT Specimen requisition ordered. ??Separate Pathology report to follow Ayaz Nelson MD PATHOLOGY/CYTOLOGY O OMI Performing Organization Address [facility] Co de Phone Number RUEL SCHULTZIUM * COLONOSCOPY (07/05/2011 9:57 AM EDT) COLONOSCOPY [facility] Endoscopy Patient Name: Leti Parry ? Procedure Date: 07/05/2011 9:57 AM ? Date of : 1950 ? Age: 60 ? Order #: [id number] ? Procedure: ? Colonoscopy Indications: ? Screening for colorectal malignant ? neoplasm, Asymptomatic Providers: ? Ayaz Nelson MD, Venkatesh Knight, ? RN, Manisha Palmer, Retail Selling Floor Leader Referring MD: ?Julia Chatterjee MD Medicines: ? [...] GENERAL SURGICAL ORD ERABLES Performing Organization Address City/State/[facility] Co de Phone Number PROVATION documented [...] RN) documented in this encounter Care Teams Telegraphic Typewriter Operator Chief Relationship Specialty Start Date End Date Julia Chatterjee MD [facility] K[address] FELIZ [facility] [address] [place] [address] PCP - General 01/31/10 documented as of this encounter
--- OUTSIDE RECORDS SUMMARY | 2023-10-24 02:37 | XMS_ITS | Encounter Summary ---
Author Organization [facility] Address [address] [place] [address] Care Team Providers Care Power Switchboard Operator Name Role Phone Unavailable Primary Care Provider Unavailabl e Encounter Details Date Type Department Care Team (Late st Contact Info) Description 12/12/2011 Results Only [facility] Laboratory Services - [facility] ([facility] [address] [place], [place] [address] Julia Morales MD [address] [place] [address] Social History Tobacco Use Types [...] ? AN PARRY ? Accession #: ? [id number] : ? 1950 (Age: 61) ??F ?Collect [...] Morales MD PATHOLOGY ORDERABLES ANTONINA WALKER [address] [place] [address] documented in this encounter Visit Diagnoses Not on filedocumented in this encounter
--- OUTSIDE RECORDS SUMMARY | 2023-10-24 02:37 | XMS_ITS | Encounter Summary ---
Author Organization [facility] Address [facility] [place] [address] Care Team Providers Care Gang Bore Operator Name Role Phone Julia Chatterjee MD Primary Care Provider [phone] Encounter Details Date Type Department Care Team (Latest Contact Info) Description 07/05/2011 9:17 AM EDT - 07/05/2011 10:45 AM EDT Hospital Encounter [place] [address] Ayaz Nelson MD [facility] [place] [address] Discharge Disposition: Home Social History Tobacco Use [...] occurs please contact your M.D. Please call [phone] before 5 pm with problems, questions or concerns. After 5pm call [phone] and ask to speak with the music copyist gleason operator. Discharge instructions reviewed with patient who expresses understanding. * Patient Instructions* Ayaz Nelson MD - 07/05/2011 10:24 AM EDT Please see Recommendations in the Provation procedure report which is documented in the procedural note in E-DH. * Attachments The following attachments cannot be sent through Care Everywhere. * COLONOSCOPY: WHAT TO EXPECT AT HOME (TAIWANESE) documented in this encounter Medications at Time [...] PM EST Office Visit Hematology/Oncology at [address] [address] Lee Ann Jay MD [facility] [address] HEMAT[place] [address] Leti Anderson APRN [facility] [place] [address] documented as of this encounter Procedures Procedure [...] 12:21 PM EDT) Surgical Pathology Report ? [facility] ? Provider: ?? AYAZ NELSON ?Pt. Name: ?? DAISY LETI M ? Acc #: ?[id number] ?Pt. ? Col Date: ?? 07/05/2011 ? [...] tissues. ? Sections/Processi ng: ??(T2) ??vms/SNS ? [facility] ? Provider: ?? AYAZ NELSON ?Pt. Name: ?? LETI PARRY ? Acc #: ?[id number] ?Pt. ? Col Date: ?? 07/05/2011 ? [...] MD PATHOLOGY/CYTOLOGY O RDKEITH Performing Organization Address [facility] Co de Phone Number RUEL SCHULTZIUM * Specimen to Pathology (surgical or derm) (07/05/2011 10:53 AM EDT) AP Specimen 07/05/2011 10:5 3 AM EDT 07/05/2011 10:53 AM EDT Narrative CERYRN BLANDONENNIUM - 07/05/2011 10:53 AM EDT Specimen requisition ordered. ??Separate Pathology report to follow Ayaz Nelson MD PATHOLOGY/CYTOLOGY O OMI Performing Organization Address [facility] Co de Phone Number RUEL SCHULTZIUM * Specimen to Pathology (surgical or derm) (07/05/2011 10:53 AM EDT) AP Specimen 07/05/2011 10:5 3 AM EDT 07/05/2011 10:53 AM EDT Narrative RUEL BLANDONENNIUM - 07/05/2011 10:53 AM EDT Specimen requisition ordered. ??Separate Pathology report to follow Ayaz Nelson MD PATHOLOGY/CYTOLOGY O RDKEITH Performing Organization Address [facility] Co de Phone Number RUEL SCHULTZIUM * Specimen to Pathology (surgical or derm) (07/05/2011 10:53 AM EDT) AP Specimen 07/05/2011 10:5 3 AM EDT 07/05/2011 10:53 AM EDT Narrative RUEL MILLENNIUM - 07/05/2011 10:53 AM EDT Specimen requisition ordered. ??Separate Pathology report to follow Ayaz Nelson MD PATHOLOGY/CYTOLOGY O OMI Performing Organization Address [facility] Co de Phone Number RUEL BLANDONENNIUM * COLONOSCOPY (07/05/2011 9:57 AM EDT) COLONOSCOPY [facility] Endoscopy Patient Name: Leti Parry ? Procedure Date: 07/05/2011 9:57 AM ? Date of : 1950 ? Age: 60 ? Order #: [id number] ? Procedure: ? Colonoscopy Indications: ? Screening for colorectal malignant ? neoplasm, Asymptomatic Providers: ? Ayaz Nelson MD, Venkatesh Knight, ? RN, Manisha Palmer, Bar Roller Referring MD: ?Julia Chatterjee MD Medicines: ? [...] GENERAL SURGICAL ORD ERABLES Performing Organization Address City/State/[facility] Co de Phone Number PROVATION documented in [...] RN) documented in this encounter Care Teams Gang Bore Operator Relationship Specialty Start Date End Date Julia Chatterjee MD [facility] [address] [place] [address] PCP - General 01/31/10 documented as of this encounter
--- OUTSIDE RECORDS SUMMARY | 2023-10-24 02:37 | XMS_ITS | Encounter Summary ---
Author Organization [facility] Address [address] [place] [address] Care Team Providers Care Fixed Capital Clerk Name Role Phone Unavailable Primary Care Provider Unavailabl e Encounter Details Date Type Department Care Team (Late st Contact Info) Description 08/04/2009 Results Only [facility] Laboratory Services - [facility] ([facility]) [address] [place] [address] Julia Morales MD [address] [place] [phone] Social History Tobacco Use Types Packs/Day Years [...] DAISY, AN M ? Accession #: ? [id number] ? : ? 1950 (Age: 58) ??F [...] MD PATHOLOGY ORDERABLES [facility] MORALES [facility] [address] [place] [address] documented in this encounter Visit Diagnoses Not on filedocumented in this encounter
--- OUTSIDE RECORDS SUMMARY | 2023-10-24 02:37 | XMS_ITS | Encounter Summary ---
Author Organization [facility] Address [address] [place] [address] Care Team Providers Care Methods Engineer Name Role Phone Unavailable Primary Care Provider Unavailabl e Encounter Details Date Type Department Care Team (Late st Contact Info) Description 05/01/2007 Results Only [facility] - [facility] [address] [place] [address] Julia Morales MD [address] [place] [phone] Social History Tobacco Use Types Packs/Day Years [...] ? AN PARRY ? Accession #: ? [id number] : ? 1950 (Age: 56) ??F ?Collect Date: ? 05/01/2007 Location: ? [facility] ? Receive Date: ? 05/01/2007 Provider: ?JULIA MORALES MD Copy to: ? Specimen/Source: ?ThinPrep Pap Test, Cervix/Endocervix, processed on [employer] ThinPrep Imaging System, with manual evaluation Last [...] End of Report ANTONINA WALKER 05/01/2007 05/01/2007 Julia Morales MD PATHOLOGY ORDERABLES ANTONINA WALKER [address] [place] [address] documented in this encounter Visit Diagnoses Not on filedocumented in this encounter
--- OUTSIDE RECORDS SUMMARY | 2023-10-24 02:37 | XMS_ITS | Encounter Summary ---
Author Organization [facility] Address [address] [place] [address] Care Team Providers Care Bus Driver Supervisor Name Role Phone Julia Chatterjee MD Primary Care Provider [phone] Encounter Details Date Type Department Care Team (Late st Contact Info) Description 09/30/2019 Lab Requisition [facility] Pathology & Laboratory Medicine - [address] [address] Outr Resulting Lab, Provider Social History Tobacco [...] 16.7 See Note ng/mL 10/01/2019 8:43 EDT [facility] Comment: Reference Ranges for Folate: [...] [facility]/ZIP Co de Phone Number [facility] [address] [place] [address] * (ABNORMAL) VITAMIN B12 (09/29/2019 12:13 EDT) Vitamin B12 >2,000(H) 211 - 911 pg/mL 10/01/2019 9:19 EDT [facility] Blood VENOUS BLOOD / Unknown 09/29/2019 12:13 EDT 09/30/2019 21:16 EDT Provider Outr Resulting Lab CHEMISTRY & BLOOD GAS ORDERABLES Performing Organization Address City/[facility] Co de Phone Number [facility] [address] [place] [address] documented in this encounter Visit Diagnoses Not on filedocumented in this encounter Care Teams Bus Driver Supervisor Relationship Specialty Start Date End Date Julia Chatterjee MD [address] [place] [phone] PCP - General 08/13/19 documented as of this encounter
--- OUTSIDE RECORDS SUMMARY | 2023-10-24 02:37 | XMS_ITS | Encounter Summary ---
Author Organization [facility] Address [address] [place] [address] Care Team Providers Care Enlisted Aircrew/Aerial Observer/Gunner Name Role Phone Julia Chatterjee MD Primary Care Provider [phone] Encounter Details Date Type Department Care Team (Late st Contact Info) Description 08/14/2019 Lab Requisition [facility] Pathology & Laboratory Medicine - [address] [address] Outr Resulting Lab, Provider Social History Tobacco [...] Salmonella PCR Negative Negative 08/15/2019 12:17 EDT [facility] Shigella/Enteroin vasive E. coli Negative Negative 08/15/2019 12:17 EDT [facility] HN LAB CAMPYLOBACTER PCR Negative Negative 08/15/2019 12:17 EDT [facility] Shiga Toxin PCR Negative Negative 0 12:17 EDT [facility] Feces SPECIMEN FROM RECTUM / Unknown 08/13/2019 9:00 EDT 08/14/2019 17:25 EDT Provider Outr Resulting Lab MICROBIOLOGY - GENERAL ORDERABLES [facility] [address] [place] [address] documented in this encounter Visit Diagnoses Not on filedocumented in this encounter Care Teams Enlisted Aircrew/Aerial Observer/Gunner Relationship Specialty Start Date End Date Julia Chatterjee MD [address] [place] [phone] PCP - General 08/13/19 documented as of this encounter
--- OUTSIDE RECORDS SUMMARY | 2023-10-24 02:37 | XMS_ITS | Encounter Summary ---
Author Organization [facility] Address [address] [place] [address] Care Team Providers Care Cotton Grower Name Role Phone Julia Chatterjee MD Primary Care Provider [phone] Encounter Details Date Type Department Care Team (Late st Contact Info) Description 08/01/2021 Lab Requisition [facility] Pathology & Laboratory Medicine - [address] [address] Outr Resulting Lab, Provider Social History Tobacco [...] 2.8 - 5.3 pg/mL 08/01/2021 17:47 EDT [facility] Blood VENOUS BLOOD / Unknown 07/31/2021 8:50 EDT 08/01/2021 17:09 EDT Provider Outr Resulting Lab CHEMISTRY & BLOOD GAS ORDERABLES Performing Organization Address City/[facility]/ZIP Co de Phone Number [facility] [address] [place] [address] * THYROID ANTIBODIES (07/31/2021 8:50 EDT) Anti-Thyroglobulin <15 <=60 U/mL 2021 18:36 EDT [facility] Thyroperoxidase Ab <28 <=60 U/mL 2021 18:36 EDT [facility] Blood VENOUS BLOOD / Unknown 07/31/2021 8:50 EDT 08/01/2021 17:09 EDT Provider Outr Resulting Lab CHEMISTRY & BLOOD GAS ORDERABLES Performing Organization Address [facility] de Phone Number [facility] [address] [place] [address] documented in this encounter Visit Diagnoses Not on filedocumented in this encounter Care Teams Cotton Grower Relationship Specialty Start Date End Date Julia Chatterjee MD [address] [place] [phone] PCP - General 08/13/19 documented as of this encounter
--- OUTSIDE RECORDS SUMMARY | 2023-10-24 02:37 | XMS_ITS | Encounter Summary ---
Author Organization [facility] Address [address] [place] [address] Care Team Providers Care Digital Production Artist Name Role Phone Julia Chatterjee MD Primary Care Provider Encounter Details Date Type Department Care Team (Late st Contact Info) Description 12/03/2019 Lab Requisition [facility] Pathology & Laboratory Medicine - [address] [address] Outr Resulting Lab, Provider Social History Tobacco [...] 5.0 - 13.9 umol/L 12/04/2019 8:44 EDT [facility] Blood VENOUS BLOOD / Unknown 12/03/2019 9:56 EDT 12/03/2019 16:04 EDT Narrative [facility] - 12/04/2019 8:44 EDT Reference range may not apply to non-fasting samples. ??It is not recommended that EDTA plasma and serum from the same patient be used interchangeably. ??Serum concentrations have been observed to be up to 10% higher than EDTA plasma. Reference range may not apply to serum results. Provider Outr Resulting Lab CHEMISTRY & BLOOD GAS ORDERABLES [facility] [address] [place] [address] documented in this encounter Visit Diagnoses Not on filedocumented in this encounter Care Teams Digital Production Artist Relationship Specialty Start Date End Date Julia Chatterjee MD [address] [place] [phone] PCP - General 08/13/19 documented as of this encounter
--- OUTSIDE RECORDS SUMMARY | 2023-10-24 02:37 | XMS_ITS | Clinical Summary ---
Author Organization [facility] Address [address] [place] [address] Care Team Providers Care Rainbow Trout Farm Manager Name Role Phone Julia Chatterjee MD Primary Care Provider [phone] Social History Tobacco Use Types Packs/Day Years [...] C Antibody Negative Negative 01/09/2022 20:42 EDT [facility] Blood VENOUS BLOOD / Unknown 01/08/2022 7:39 EDT 01/09/2022 17:25 EDT Provider Outr Resulting Lab CHEMISTRY & BLOOD GAS ORDERABLES [facility] [address] [place] [address] from Last 3 Months or Most Recently Relevant to Health Maintenance Care Teams Rainbow Trout Farm Manager Relationship Specialty Start Date End Date Julia Chatterjee MD [address] [facility] [address] [place] [phone] PCP - General 08/13/19
--- OUTSIDE RECORDS SUMMARY | 2023-10-24 02:37 | XMS_ITS | Encounter Summary ---
Author Organization [facility] Address [address] [place] [address] Care Team Providers Care Drying Machine Operator Package Yarns Name Role Phone Julia Chatterjee MD Primary Care Provider [phone] Encounter Details Date Type Department Care Team (Late st Contact Info) Description 08/13/2019 Lab Requisition [facility] Pathology & Laboratory Medicine - [address] [address] Alicia Hayes, DO [address] [place], [place] [phone] Encounter for other general examination Social History [...] - Negative for dysplasia. 08/17/2019 8:19 EDT [facility] at 0819 Attestation By the signature below, the attending physician certifies that they have 1) personally conducted a gross and/or microscopic examination of the described specimen(s), and/or personally interpreted the results of laboratory testing of the described specimen(s), and 2) personally rendered or confirmed the above diagnosis. 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 08/17/2019 8:19 EDT [facility] Clinical History Colitis, fever, abnormal CT 08/17/2019 8:19 T [facility] Gross Description A. Received in formalin labelled with proper patient identification (initials L, D) and rectal Bxs are three ford-red irregular tissues ranging from 0.3 x 0.1 x 0.1 cm to 0.4 x 0.2 x 0.2 cm. Entirely submitted in A1. Jihan Duckworth 08/13/2019 16:23 08/17/2019 8:19 EDT [facility] Scanned Images 08/17/2019 8:19 T [facility] Tissue SPECIMEN FROM RECTUM / Unknown 08/13/2019 11:56 EDT 08/13/2019 16:09 EDT Alicia Hayes DO PATHOLOGY ORDERABLES Performing Organization Address City/State/[facility] Co de Phone Number [facility] [address] [place] [address] documented in this encounter Visit Diagnoses Diagnosis Encounter for other general examination documented in this encounter Care Teams Drying Machine Operator Package Yarns Relationship Specialty Start Date End Date Julia Chatterjee MD [address] [place] [phone] PCP - General 08/13/19 documented as of this encounter
--- OUTSIDE RECORDS SUMMARY | 2023-10-24 02:37 | XMS_ITS | Encounter Summary ---
Author Organization [facility] Address [address] [place] [address] Care Team Providers Care Transmission Mechanic Name Role Phone Julia Chatterjee MD Primary Care Provider [phone] Encounter Details Date Type Department Care Team (Late st Contact Info) Description 01/09/2022 Lab Requisition [facility] Pathology & Laboratory Medicine - [address] [phone] Outr Resulting Lab, Provider Social History Tobacco [...] C Antibody Negative Negative 01/09/2022 20:42 EDT [facility] Blood VENOUS BLOOD / Unknown 01/08/2022 7:39 EDT 01/09/2022 17:25 EDT Provider Outr Resulting Lab CHEMISTRY & BLOOD GAS ORDERABLES [facility] [address] [place] [address] documented in this encounter Visit Diagnoses Not on filedocumented in this encounter Care Teams Transmission Mechanic Relationship Specialty Start Date End Date Julia Chatterjee MD [address] [place] [phone] PCP - General 08/13/19 documented as of this encounter
--- OUTSIDE RECORDS SUMMARY | 2023-10-24 02:37 | XMS_ITS | Encounter Summary ---
Author Organization [facility] Address [address] [place] [address] Care Team Providers Care Rotary Engine Assembler Name Role Phone Unknown, Provider Primary Care Provider Encounter Details Date Type Department Care Team (Late st Contact Info) Description 01/28/2015 Results Only [facility] [phone] Julia Morales MD [address] [place] [phone] Social History Tobacco Use Types Packs/Day Years [...] ? AN PARRY ? Accession #: ? [id number] ? : ? 1950 (Age: 64) ??F [...] types 16,18,31,33,35, 39,45,51,52,56,58, 59,66, and 68 by battery builder mediated amplification. Comments Document reviewed and electronically signed by: ? System Interface ? Report date: 02/04/2015 By the signature above, the attending physician certifies that he/she has personally conducted a gross and/or microscopic examination of the described specimens and rendered or confirmed the above diagnosis. End of Report [facility] 01/28/2015 01/31/2015 Julia Morales MD PATHOLOGY ORDERABLES [facility] [address] [place] [address] documented in this encounter Visit Diagnoses Not on filedocumented in this encounter Care Teams Rotary Engine Assembler Relationship Specialty Start Date End Date Unknown, Provider, PCP - General 01/14/15 08/12/19 documented as of this encounter
--- OUTSIDE RECORDS SUMMARY | 2023-10-24 02:37 | XMS_ITS | Encounter Summary ---
Author Organization [facility] Address [address] [place] [address] Care Team Providers Care Bleach Range Operator Name Role Phone Julia Chatterjee MD Primary Care Provider [phone] Encounter Details Date Type Department Care Team (Late st Contact Info) Description 08/16/2019 Lab Requisition [facility] Pathology & Laboratory Medicine - [address] [address] Donnie Multani MD [address] [place] [address] Social History Tobacco Use Types Packs/Day Years [...] constellatus (S. anginosus group)(A) 08/18/2019 11:21 EDT [facility] Organism (organism) WHOLE BLOOD / Unknown 08/12/2019 14:20 EDT 08/16/2019 17:00 EDT Donnie Multani MD MICROBIOLOGY - GENER AL ORDERABLES [facility] [address] [place] [address] documented in this encounter Visit Diagnoses Not on filedocumented in this encounter Care Teams Bleach Range Operator Relationship Specialty Start Date End Date Julia Chatterjee MD [address] [place] [phone] PCP - General 08/13/19 documented as of this encounter
--- OUTSIDE RECORDS SUMMARY | 2023-10-24 02:37 | XMS_ITS | Referral Summary ---
Author Organization [facility] Address [address] [place] [address] Care Team Providers Care Audio Visual Collections Coordinator Name Role Phone Julia Chatterjee MD Primary Care Provider Social History Tobacco Use Types Packs/Day [...] C Antibody Negative Negative 01/09/2022 20:42 EDT [facility] Blood VENOUS BLOOD / Unknown 01/08/2022 7:39 EDT 01/09/2022 17:25 EDT Provider Outr Resulting Lab CHEMISTRY & BLOOD GAS ORDERABLES [facility] [address] [place] [address] from Last 3 Months or Most Recently Relevant to Health Maintenance Care Teams Audio Visual Collections Coordinator Relationship Specialty Start Date End Date Julia Chatterjee MD [address] [facility] 1 [place] [phone] PCP - General 08/13/19
--- OUTSIDE RECORDS SUMMARY | 2023-10-24 02:37 | XMS_ITS | Encounter Summary ---
Author Organization [facility] Address [address] [place] [address] Care Team Providers Care Dextrine Mixer Name Role Phone Unknown, Provider Primary Care Provider Julia Chatterjee MD Primary Care Provider [phone] Encounter Details Date Type Department Care Team (Late st Contact Info) Description 08/11/2019 Lab Requisition [facility] Pathology & Laboratory Medicine - [facility] [address] [place] [address] Outr Resulting Lab, Provider Social History Tobacco [...] Outr Resulting Lab MICROBIOLOGY - GENERAL ORDERABLES [facility] [address] [place] [address] * COVID-19 TESTING (08/11/2019 12:10 EDT) COVID-19 rt-PCR Result Negative Negative 08/11/2019 20:[address] [facility] Comment: This test has not [...] history, and epidemiological information. Performed on the LoyaltyLionher Fusion instrument Performing Lab Peak [facility] 08/11/2019 20:[address] [facility] Swab ENTIRE NASOPHARYNX / Unknown 08/11/2019 12:10 EDT 08/11/2019 16:00 EDT Provider Outr Resulting Lab MICROBIOLOGY - GENERAL ORDERABLES [facility] [address] [place] [address] documented in this encounter Visit Diagnoses Not on filedocumented in this encounter Care Teams Dextrine Mixer Relationship Specialty Start Date End Date Unknown, Provider, PCP - General 01/14/15 08/12/19 Julia Chatterjee MD [address] [place] [phone] PCP - General 08/13/19 documented as of this encounter
--- NOTE | 2023-10-24 07:45 | DI.MAMMO_ITS ---
Exam(s) MAMMO SCREENING EXAM: MAMMO SCREENING CLINICAL HISTORY: screening TECHNIQUE: Bilateral full field digital CC and MLO mammographic images were obtained with 3D tomosyn thesis and utilizing computer aided detection (CAD). COMPARISON: Available for comparison. FINDINGS: Masses/Architectural Distortion: None seen. Microcalcifications: There has been interval development of multiple calcifications limited to the up per outer quadrant of the right breast. Skin Thickening/Nipple Retraction: None. IMPRESSION: 1. Interval development of multiple calcifications limited to the upper outer quadrant of the right b reast. 2. Spot magnification views are requested for further evaluation. Breast MRI may also be considered for further evaluation. BI-RADS Category 0 - Incomplete: Need additional imaging evaluation Breast Density - Category C - Heterogeneously dense Breast density category C or D implies that the patient has dense breast tissue. Dense breast tissue is very common and is not abnormal but dense breast tissue can make it harder to find cancer on a ma mmogram. Also, dense breast tissue may increase their breast cancer risk. This information about the result of the mammogram report was provided to the patient to raise their awareness. Use this report when you speak with the patient about their risks for breast cancer, which includes their family hist ory. At that time, you may recommend for more screening tests (Ultrasound or MRI) as they might be us eful based on their risk. A negative radiographic report should not delay biopsy if a dominant or clinically suspicious mass is present. Up to ten percent of cancers are not identified on mammography. A negative report may reinforce clinical impression. Adenosis and dense breasts may obscure an underlying neoplasm. False positive reports average 6 to 10%. Patient will receive a letter notifying them of these results.
== END 2023-10-24 02:51 ==
LOC: DI 02:31
PROVIDERS: PCP Family Medicine; Visit Provider Obstetrics & Gynecology
DX: Z12.31 Encounter for screening mammogram for malignant neoplasm of breast (principal)
CPT/HCPCS: 77063; 77067

== ENCOUNTER 2023-10-25 09:34 | Outpatient (CLI) | payer MEDICARE, BC, SELFPAY ==
--- NOTE | 2023-10-25 | DI.US_ITS ---
Exam(s) MG MAMMO SCREEN CALL BACK UNI US BREAST RT LIMITED EXAM: MG MAMMO SCREEN CALL BACK UNI and U/S breast RT limited CLINICAL HISTORY: R92.8 ABN mammo, multiple calcifications limited to upper outer quadrant. TECHNIQUE: Craniocaudal and mediolateral oblique Full Field Digital Mammography views of the right b reast with Computer Aided Diagnosis followed by Tomosynthesis and right breast ultrasound. COMPARISON: Comparison is made with prior examinations. FINDINGS: Mammography/Tomosynthesis: Masses/Architectural Distortion: None seen. Microcalcifictions: There is again seen an increase number of microcalcifications focused in the uppe r outer quadrant of the right breast. No associated architectural distortion is seen. Skin Thickening/Nipple Retraction: None. Limited right breast US: Echotexture: Normal appearance of the glandular tissue. Shadowing: No suspicious foci. Cyst: None. Solid lesions: None seen. Ductal dilation: None. IMPRESSION: 1. Increased number of microcalcifications focus in the upper outer quadrant of the right breast. 2. Biopsy is recommended for further evaluation. Additionally, an MRI may be obtained for further ch aracterization. 3. The findings were discussed with the patient and Dr. Mckeon on the date of the examination. BI-RADS Category 4 - Suspicious Abnormality: Biopsy should be considered Breast Density - Category C - Heterogeneously dense Breast density Category C or D implies that the patient has dense breast tissue. Dense breast tissue can make it harder to find cancer on a mammogram. Dense breast tissue is also associated with an incr eased risk of breast cancer. This information about the result of the mammogram report was provided to the patient to raise their awareness. Use this report when you speak with the patient about their risks for breast cancer, which includes their family history. At that time, you may recommend additional screening tests (Ultrasoun d or MRI) as these tests may add significant information. A negative radiographic report should not delay biopsy if a dominant or clinically suspicious mass is present. Up to ten percent of cancers are not identified on mammography. A negative report may reinforce clinical impression. Adenosis and dense breasts may obscure an underlying neoplasm. False positive reports average 6 to 10%. Patient will receive a letter notifying them of these results.
== END 2023-10-25 09:54 ==
LOC: DI 09:37
PROVIDERS: PCP Family Medicine; Visit Provider Obstetrics & Gynecology
DX: Z12.31 Encounter for screening mammogram for malignant neoplasm of breast (principal); R92.8 Other abnormal and inconclusive findings on diagnostic imaging of breast
CPT/HCPCS: 76642; 77063; 77067

== ENCOUNTER 2023-12-03 02:26 | Outpatient (CLI) | payer MEDICARE, BC, SELFPAY ==
[2023-12-03 07:26] LABS: Abs Immature Grans 0.05 10^3/uL (0.0-0.06); Absolute Eosinophil Count 0.01 10^3/uL (0.0-0.7); Absolute Lymphocyte Count 1.07 10^3/uL (1.2-3.4); Absolute Monocyte Count 0.44 10^3/uL (0.1-0.8); Eosinophils % 0.6 %; HCT 41.2 % (36.0-46.0); HGB 13.1 g/dL (11.2-15.7); Immature Grans % 2.9 %; Lymphocytes % 61.1 %; MCH 28.9 pg (27.0-33.0); MCHC 31.8 % (32.0-36.0); MCV 91 fL (80-95); MPV 9.8 fL (8.0-11.0); Monocytes % 25.1 %; Neutrophils % 10.3 %; Platelet Count 189 10^3/uL (130-400); RBC 4.53 10^6/uL (3.93-5.22); RDW 12.7 % (11.7-14.6); RDW-SD 42.6 fL
[2023-12-03 07:30] LABS: ALT 18 U/L (14-59); AST 18 U/L (15-37); Albumin 3.3 g/dL (3.4-5.0); Alkaline Phosphatase 90 U/L (46-116); BUN 13 mg/dL (7-18); Bilirubin, Total 0.49 mg/dL (0.2-1.0); CREATININE 0.8 mg/dL (0.55-1.02); Chloride 100 mmol/L (98-107); Estimated GFR 78.24 (mL/min/1.73m2); Glucose 99 mg/dL (74-106); Potassium 4.2 mmol/L (3.5-5.1); Sodium 137 mmol/L (136-145)
[2023-12-03 08:09] LABS: WBC 1.75 10^3/uL (4.4-10.8)
[2023-12-03 08:10] LABS: Absolute Neutrophil Count 0.18 10^3/uL (1.2-6.7); Diff Comment Diff Reviewed; RBC Morphology Normal
== END 2023-12-03 02:27 | disposition home or self-care (01) ==
PROVIDERS: PCP Family Medicine; Visit Provider Nurse Practitioner Adult Health
DX: C91.Z0 Other lymphoid leukemia not having achieved remission (principal)
CPT/HCPCS: 36415; 80053; 85025

== ENCOUNTER 2024-01-15 03:40 | Outpatient (CLI) | payer MEDICARE, BC, SELFPAY ==
[2024-01-15 14:24] LABS: Abs Immature Grans 0.08 10^3/uL (0.0-0.06); Absolute Eosinophil Count 0.01 10^3/uL (0.0-0.7); Absolute Lymphocyte Count 0.92 10^3/uL (1.2-3.4); Absolute Monocyte Count 0.37 10^3/uL (0.1-0.8); Eosinophils % 0.6 %; HCT 42.5 % (36.0-46.0); HGB 13.5 g/dL (11.2-15.7); Immature Grans % 4.8 %; Lymphocytes % 55.1 %; MCH 28.2 pg (27.0-33.0); MCHC 31.8 % (32.0-36.0); MCV 89 fL (80-95); MPV 9.9 fL (8.0-11.0); Monocytes % 22.2 %; Neutrophils % 17.3 %; Platelet Count 207 10^3/uL (130-400); RBC 4.78 10^6/uL (3.93-5.22); RDW 12.8 % (11.7-14.6); RDW-SD 41.8 fL
[2024-01-15 14:38] LABS: ALT 19 U/L (14-59); AST 23 U/L (15-37); Albumin 3.7 g/dL (3.4-5.0); Alkaline Phosphatase 93 U/L (46-116); Anion Gap 9.9 mmol/L (3-11); BUN 17 mg/dL (7-18); Bilirubin, Total 0.49 mg/dL (0.2-1.0); CO2 26.1 mmol/L (21.0-32.0); CREATININE 0.8 mg/dL (0.55-1.02); Calcium 9.6 mg/dL (8.5-10.1); Chloride 103 mmol/L (98-107); Diff Comment Diff Reviewed; Estimated GFR 78.24 (mL/min/1.73m2); Glucose 114 mg/dL (74-106); Potassium 4.2 mmol/L (3.5-5.1); RBC Morphology Normal; Sodium 139 mmol/L (136-145); Total Protein 8.7 g/dL (6.4-8.2)
[2024-01-15 14:41] LABS: Absolute Neutrophil Count 0.29 10^3/uL (1.2-6.7); WBC 1.67 10^3/uL (4.4-10.8)
== END 2024-01-15 03:41 | disposition home or self-care (01) ==
PROVIDERS: PCP Family Medicine; Visit Provider Nurse Practitioner Adult Health
DX: C91.Z0 Other lymphoid leukemia not having achieved remission (principal)
CPT/HCPCS: 36415; 80053; 85025

== ENCOUNTER 2024-02-20 10:28 | Outpatient (REF) | payer MEDICARE, BC, SELFPAY ==
[2024-02-20 14:57] LABS: HCT 39.2 % (36.0-46.0); HGB 12.1 g/dL (11.2-15.7); MCH 28.9 pg (27.0-33.0); MCHC 30.9 % (32.0-36.0); MCV 94 fL (80-95); MPV 10.9 fL (8.0-11.0); Platelet Count 196 10^3/uL (130-400); RBC 4.19 10^6/uL (3.93-5.22); RDW 14.1 % (11.7-14.6); RDW-SD 47.8 fL
[2024-02-20 15:08] LABS: WBC 42.78 10^3/uL (4.4-10.8)
[2024-02-20 15:18] LABS: TSH 0.45 uIU/mL (0.36-3.74)
[2024-02-20 18:15] LABS: FREE T4 1.12 ng/dL (0.76-1.46)
== END 2024-02-20 10:29 | disposition home or self-care (01) ==
LOC: NCHCN 10:28
PROVIDERS: PCP Family Medicine; Visit Provider Physician Assistant
DX: I48.0 Paroxysmal atrial fibrillation (principal)
CPT/HCPCS: 85027; 84436; 84439; 84443

== ENCOUNTER 2024-03-26 00:18 | Outpatient (CLI) | payer MEDICARE, BC, SELFPAY ==
--- NOTE | 2024-03-26 14:30 | DI.US_ITS ---
APPROVED REPORT EXAM: Comprehensive 2D, Doppler, and color-flow Echocardiogram Patient Location: Out-Patient [facility] Pneumatic: Antonette Zarco RDCS (AE) Indications: Conduction disorder, Paroxysmal atrial fibrillation Other Information Study Quality: Adequate Conclusion Normal left ventricular wall thickness and chamber size. Ejection fraction is 58%. Wall motion is n ormal Normal right ventricular size and function Both atria are normal in size There are no structural valvular abnormalities Mild tricuspid regurgitation. Estimated right ventricular systolic pressure is 32 mmHg Wall motion Left Ventricle The left ventricle is normal size. The left ventricular systolic function is normal. The left ventric ular ejection fraction is within the normal range. There is normal left ventricular wall thickness. T here is normal LV segmental wall motion. There is no ventricular septal defect visualized. LVEF is 58 %. Right Ventricle The right ventricle is normal size. The right ventricular systolic function is normal. Atria The left atrium size is normal. The right atrium size is normal. The interatrial septum is intact wit h no evidence for an atrial septal defect. Aortic Valve The aortic valve is normal in structure. Aortic valve is trileaflet. There is no aortic valvular sten osis. No aortic regurgitation is present. Mitral Valve The mitral valve is normal in structure. No evidence of mitral valve stenosis. Trace mitral regurgita tion. Tricuspid Valve The tricuspid valve is normal in structure. There is no tricuspid valve stenosis. Mild tricuspid regu rgitation. The RVSP is 32.4_ mmHg. Pulmonic Valve The pulmonary valve is normal in structure. There is no pulmonic valvular stenosis. Trace pulmonic re gurgitation. Great Vessels The aortic root is normal in size. Ascending aorta is not well visualized. Aortic arch is normal in c aliber. IVC is normal in size and collapses >50% with inspiration. Pericardium There is no pericardial effusion. 2D Dimensions IVSD d PLAX 0.80 cm F: 0.6-1.0 Ao Root d 2.94 cm F: 2.7 - 3.3 LVPW d PLAX 0.80 cm F: 0.6 - 1.0 LVID d PLAX 4.63 cm F: 3.8 - 5.2 LVDs 3.21 cm F: 2.2 - 3.5 LV EF Teichholz 58.2 % FS 30.67 % LV EDV (Teich) 98.8 mL LV ESV (Teich) 41.3 mL M-Mode TAPSE 2.48 cm (M/F) >1.7 Auto EF LV EDV A4C 96.5 mL LV EDV A2C 91.0 mL LV EDV BP 94.9 mL LV ESV A4C 40.9 mL LV ESV A2C 38.3 mL LV ESV BP 39.9 mL LVEF(%) A4C 57.7 % LVEF(%) A2C 57.9 % LVEF(%) BP 58.0 % LV SV A4C 55.7 ml LV SV A2C 52.7 ml LV SV BP 55.1 ml LV CO A4C 3.4 L/min LV CO A2C 3.1 L/min LV CO BP 3.2 L/min HR A4C 60.71 BPM HR A2C 58.82 BPM LV EDV Index (BP) LA Volume LA Length A4C 5.0 cm LA Length A2C 4.9 cm LA Area A4C s 17.76 cm2 LA Area A2C s 16.95 cm2 LA Vol A4C A-L 53.22 mL LA Vol A2C A-L 49.46 mL LA Vol Biplane A-L 51.8 mL LA Vol/BSA A4C A-L LA Vol/BSA A2C A-L LA Vol/BSA BP A-L 30.7 mL/m2 LA Vol A4C MOD 49.4 mL LA Vol A2C MOD 47.0 mL LA Vol BP MOD 48.1 mL RA Volume RA Area A4C 11.3 cm2 RA ESV A4C (A-L) 24.2mL RA Vol/BSA A4C A-L RA Length A4C 4.5 cm RA ESV A4C (MOD) 22.9mL LV Diastology MV E' medial 0.088 (>0.07 m/s) MV E Vmax 0.92 (0.4-1.3 m/s) MV E/E' MED 10.37 (<14) MV A Vmax 0.75 (0.4-1.3 m/s) MV E' lateral 0.113 (>0.1 m/s) E/A Ratio 1.2 MV E/E' LAT 8.08 (<14) MV E' Average 0.101 m/s MV E/E'(average) 9.09 Aortic Valve AoV Vmax 1.34 m/s LVOT Vmax 0.95 m/s AoV Peak Grad 7.2 mmHg LVOT Peak Grad 3.6 mmHg AoV Area (Vmax) 2.18 cm2 LVOT VTI 0.198 m AoV VTI 0.312 m LVOT Mean Grad 1.8 mmHg AoV Mean Jan. 0.91 m/s LVOT SV 60.71 mL AoV Mean Grad 3.9 mmHg LVOT Diam s 1.95 cm AoV Area (VTI) 1.94 cm2 AV Regurg Peak Gr. 7.17 mmHg Velocity Ratio 0.71 Mitral Valve MV DT 194 (160-240 msec) MV Vmax TIPS 0.83 m/s MV Mean Grad 1.0 (<2mmHg) MV VTI 0.340 m Pulmonary Valve PV Vmax 0.80 (0.5-1.5 m/s) RVOT Vmax 0.56 m/s PV Peak Grad 2.6 mmHg RVOT Peak Gr. 1.3 mmHg PV Mean Jan 0.54 m/s RVOT VTI 0.126 m PV Mean Grad 1.4 mmHg RVOT Mean Gr. 0.8 mmHg Tricuspid Valve RA Pressure 3.00 mmHg TR Vmax 2.71 m/s TV S' 0.14 m/s TR Peak Grad 29.3 mmHg RVSP (TR) 32.4 mmHg
== END 2024-03-26 00:38 ==
LOC: DI 00:18
PROVIDERS: PCP Family Medicine; Visit Provider Internal Medicine Cardiovascular Disease
DX: I36.1 Nonrheumatic tricuspid (valve) insufficiency (principal); I48.0 Paroxysmal atrial fibrillation
CPT/HCPCS: 93306

== ENCOUNTER 2024-04-09 07:33 | Outpatient (CLI) | payer MEDICARE, BC, SELFPAY ==
--- NOTE | 2024-04-09 10:13 | W.CARDEVENT ---
Date of service: 04/09/24 Time of Service: 10:13 Cardiac Event Recorder Referring Provider:: Deo Montanez Indications:: Paroxysmal atrial fibrillation Cardiac Event Note: This is a cardiac event monitor. Patient was monitored for 29 days 9 hours Predominant rhythm was sinus. Average heart rate overall was 71. Minimum was 56, maximum 110 There was a 2% burden of atrial flutter/fibrillation. Average heart rate in atrial fibrillation was 115 Conversion pauses were noted when atrial fibrillation reverted to sinus rhythm. These were generally less than 3.6 seconds There was no high-grade AV block There were rare ventricular ectopic beats, ventricular couplets. There were no apparent patient's symptoms
== END 2024-04-09 07:34 | disposition home or self-care (01) ==
LOC: CARDOPNVT 07:33
PROVIDERS: PCP Family Medicine; Referring Provider Physician Assistant; Visit Provider Internal Medicine Cardiovascular Disease
DX: I48.0 Paroxysmal atrial fibrillation (principal); I48.92 Unspecified atrial flutter
CPT/HCPCS: 93272

== ENCOUNTER 2024-04-17 01:17 | Outpatient (CLI) | payer MEDICARE, BC, SELFPAY ==
--- OUTSIDE RECORDS SUMMARY | 2024-04-17 01:19 | XMS_ITS ---
Author Organization [facility] Address [facility] [place] [address] Care Team Providers Care Cellophaner Name Role Phone Julia Chatterjee MD Primary Care Provider [phone] Active Problems Problem Noted Date Diagnosed Date Tachyarrhythmia 04/14/2024 Neutropenia 01/07/2024 Malignant neoplasm of upper- outer quadrant of right breast in female, estrogen receptor positive 12/09/2023 Overview (12/09/2023): 12/04/23 [facility]: ER+ right breast DCIS, high grade Large granular lymphocytic leukemia 10/14/2019 Overview (10/14/2019): [...] help much - 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 Went to [facility] and had CT showing inflamed colon. Flex [...] qhs after colonoscopy in October 2019 - Uriah worse on [place] - fecal calpro 109 [...] flow ) are being pursued at the [facility]. Should ??cytopenias persist , it may [...] cannot say with certainty Current Oncology Plans granulocyte colony stimulating factor* Plan Start Date:01/15/2024 Plan Provider:Leti Anderson APRN Linked Problems Neutropenia, unspecified typ eLarge granular lymphocytic leukemia Treatment Medications No medications scheduled. Past Plans Therapy Plan 1 Plan Name Start Date Discontinue Date Treatment Medications Discontinue Reason Plan Provider [facility] 480 mcg THERAPY PLAN 12/03/2023 01/07/2024 No medications scheduled. Therapy Complete Lee Ann Jay MD Therapy Plan 2 Plan Name Start Date Discontinue Date Treatment Medications Discontinue Reason Plan Provider [facility] THERAPY PLAN 04/11/2022 04/17/2023 No medications scheduled. Therapy Complete Lee Ann Jay MD Radiation Treatments * No radiation treatments are documented for this patient in [facility]. Treatments may have been administered in another system.
--- OUTSIDE RECORDS SUMMARY | 2024-04-17 01:19 | XMS_ITS | Clinical Summary ---
Author Organization [facility] Address [facility] [place] [address] Care Team Providers Care Fixer Boarding Room Name Role Phone Julia Chatterjee MD Primary Care Provider [phone] Allergies Active Allergy Reactions Criticality Noted Date Comments Benzalkonium Chloride Gluten 08/12/2019 Stevioside (Bulk) Diarrhea High 12/19/2023 Intolerance with Artificial Sugars - Diarrhea. Unclassified Drug High 08/12/2019 Methialate Medications Medication Sig Dispensed Refills Start Date End Date Status cholecalciferol, vitamin D3, (VITAMIN D3 ORAL) Take 4,000 Units by mouth daily. Active ascorbic acid, Vitamin C, (Vitamin C) 500 mg Tablet Take 400 mg by mouth 2 times daily. Active magnesium 250 mg Tablet Take by mouth. 360mg daily Active selenium 50 mcg Tablet Take 200 mcg by mouth. Active zinc sulfate (ZINC-220 ORAL) Take by mouth. 15 mg Active UNABLE TO FIND Digestive enzymes Act karina UNABLE TO FIND 134 mg 3 times daily. Drenatrophin pmg Active UNABLE TO FIND 227 mg. Eleuthroel DGL Active homeopathic drugs (ARNICA 3X ORAL) Take by mouth as needed. Active acetaminophen (Tylenol) 500 mg tablet Take 2 tablets by mouth every 6 hours as needed for Pain. 02/19/2024 Active Additional Information Patient not taking.Reported on 03/16/2024 ibuprofen (Advil) 600 mg tablet Take 1 tablet by mouth every 6 hours as needed for Pain. 02/19/2024 Active Additional Information Patient not taking.Reported on 03/16/2024 sumaya primrose/linoleic/g -lenic (PRIMROSE OIL ORAL) Take by mouth. Active UNABLE TO FIND Jeans Cream. Do not apply within 2 hours prior to radiation treatment Active Active Problems Problem Noted Date Diagnosed Date Tachyarrhythmia 04/14/2024 Neutropenia 01/07/2024 Malignant neoplasm of upper- outer quadrant of right breast in female, estrogen receptor positive 12/09/2023 Overview (12/09/2023): 12/04/23 [place] [facility] [place] DCIS, high grade Large [...] help much - Followed with a local crime prevention police officer and used dietary supplements to maintain remission - Did well until August 2019 when she developed abdominal pain, fevers, loose stool. Went to [facility] and had CT showing inflamed colon. [...] qhs after colonoscopy in October 2019 - [place] worse on [place] - fecal calpro 109 [...] flow ) are being pursued at the [facility]. Should ??cytopenias persist , it may [...] LGL but we cannot say with certainty Encounters Date Type Department Care Team Description 04/16/2024 Travel 04/14/2024 1:45 PM EST Office Visit Radiation Oncology at [address] [phone] Radha Casiano MD Malignant neoplasm of upper-outer quadrant of right breast in female, estrogen receptor positive 04/14/2024 Abstract Cardiology at [address] [phone] Amarilis Casiano RN 04/14/2024 Travel 04/07/2024 4:00 PM EST Office Visit H[place] [address] Magalis Shepherd MD Ductal carcinoma in situ (DCIS) of right breast 04/07/2024 Travel 03/27/2024 10:30 AM EST Ancillary Appointment [place] [address] Radha Casiano MD Malignant neoplasm of upper-outer quadrant of right breast in female, estrogen receptor positive 03/27/2024 Travel 03/19/2024 Telephone [place] [address] Rosa M Osborne 03/16/2024 11:00 AM EST Office Visit Radiation Oncology at [address] [phone] Radha Casiano MD Malignant neoplasm of upper-outer quadrant of right breast in female, estrogen receptor positive 03/16/2024 Travel 03/13/2024 10:30 AM EST Office [place] [address] Martina Pugh MD Malignant neoplasm of right female breast, unspecified estrogen receptor status, unspecified site of breast; Malignant neoplasm of central portion of right breast in female, estrogen receptor positive 03/13/2024 Travel 02/24/2024 Telephone Hematology/Oncolo gy at [address] [phone] Mera Cintron, DAYANA Other (Neulasta side effect) 02/21/2024 Telephone Cardiology at [address] [place] [address] Raquel Asencio, management services technician 02/21/2024 Telephone [place] [address] Martina Pugh MD 02/20/2024 Telephone [place] [address] Martina Pugh MD 02/20/2024 Telephone [facility] [place] [phone] Manisha Huang RN 02/19/2024 12:08 PM EST Anesthesia Event [facility] [place] [phone] Nolberto Dloan MD 02/19/2024 11:56 AM EST - 02/19/2024 3:16 PM EST Surgery [facility] [place] [address] Martina Pugh MD MASTECTOMY PARTIAL (WRVU 10.13) 02/19/2024 9:30 AM EST - 02/19/2024 5:27 PM EST Hospital Encounter [place] [address] Martina Pugh MD Tachyarrhythmia Discharge Disposition: Home 02/19/2024 8:24 AM EST - 02/19/2024 9:29 AM EST Hospital Encounter Mammography at [place] [phone] Martina Pugh MD Malignant neoplasm of right female breast, unspecified estrogen receptor status, unspecified site of breast Discharge Disposition: Home 02/19/2024 8:23 AM EST Hospital [place] [address] Martina Pugh MD Malignant neoplasm of right female breast, unspecified estrogen receptor status, unspecified site of breast; Tachyarrhythmia Discharge Disposition: Home 02/19/2024 Travel 02/17/2024 8:00 AM EST Infusion Hematology Oncology at [address] [phone] 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]; Other neutropenia [D70.8] 02/17/2024 Travel 02/12/2024 Orders Only Hematology and Oncology at [place] [address] Leti Anderson, TANK BUILDER 01/28/2024 Orders Only General Surgery at [place] [address] Martina Pugh MD Malignant neoplasm of right female breast, unspecified estrogen receptor status, unspecified site of breast 01/20/2024 Telephone General Surgery at [place] [address] Martina Pugh MD 01/16/2024 10:50 AM EST - 01/16/2024 11:59 PM EST Hospital Encounter Mammography at [place] [address] Jodee Ortega MD Abnormal finding on breast imaging Discharge Disposition: Home 01/16/2024 8:37 AM EST - 01/16/2024 10:49 AM EST Hospital Encounter MRI at [place] [address] Jodee Ortega MD Discharge Disposition: Home 01/16/2024 8:10 AM EST - 01/16/2024 8:36 AM EST Hospital Encounter MRI at [place] [address] Jodee Ortega MD Abnormal finding on breast imaging Discharge Disposition: Home 01/16/2024 7:58 AM EST - 01/16/2024 8:09 AM EST Hospital Encounter Mammography at [place] [address] Discharge Disposition: Home from Last 3 Months Family History Medical History Relation Comments Breast Cancer Neg Hx Ovarian Cancer Neg Hx Social History Tobacco Use Types Packs/Day Years Used Date Smoking Tobacco: Never Smokeless Tobacco: Never Tobacco Cessation:Counseling Given: Not Answered Comments:never vape Alcohol Use Standard Drinks/Week Comments Yes 4 (1 standard drink = 0.6 oz pur e alcohol) Variable B1300 Health Literacy Answer Date Recor ded How often do you need to hav e someone help you when you read instructions, pamphlets, or other written material from your doctor or pharmacy? Never 03/16/2024 [facility] Utilities Answer Date Recorded In the past 12 months has th e electric, gas, oil, or water company threatened to shut off services in your home? No 03/16/2024 Overall Financial Resource Strain (CARDIA) Answe r Date Recorded How hard is it for you to pa y for the very basics like food, housing, medical care, and heating? Not hard at all 03/16/2024 Hunger Vital Sign Answer Date Recorded Within the past 12 months, y ou worried that your food would run out before you got the money to buy more. Never true 03/16/19 25 Ran Out of Food in the Last Year Not on file 03/16/2024 PRAPARE - Transportation Answer Date Re corded In the past 12 months, has l ack of transportation kept you from medical appointments or from getting medications? No 08/2024 In the past 12 months, has l ack of transportation kept you from meetings, work, or from getting things needed for daily living? No 03/16/2024 Housing Stability Vital Sign Answer Jose Raul e Recorded In the last 12 months, was t here a time when you were not able to pay the mortgage or rent on time? No 03/16/2024 In the past 12 months, how m any times have you moved where you were living? 0 03/16/2024 At any time in the past 12 m [facility], were you homeless or living in a half-way (including now)? No 03/16/2024 IPV Inpatient Questions Answer Date Recorded Does Anyone Try to Keep You From Having Contact with Others or Doing Things Outside Your Home? no 02/19/2024 Feels Threatened by Someone no 02/08 Feels Unsafe at Home or Work/School no 02/19/2024 Physical Signs of Abuse Present no 02/19/2024 Sex and Gender Information Value Date Recorded Sex Assigned at Not on file Gender Identity Not on file Sexual Orientation Not on file Last Filed Vital Signs Vital Sign Reading Time Taken Comments Blood Pressure 120/73 04/07/2024 3:47 PM EST Pulse 66 04/07/2024 3:47 PM EST Temperature 36.6 ??C (97.9 ??F) 04/14/2024 2:22 PM ES T Respiratory Rate 16 04/14/2024 2:22 PM EST Oxygen Saturation 97% 04/07/2024 3:47 PM EST Inhaled Oxygen Concentration - - Weight 69.5 kg (153 lb 3.2 oz) 04/14/2024 2:22 P M EST Height 159.4 cm (5' 2.76) 04/07/2024 3:47 PM ES T Body Mass Index 27.35 04/07/2024 3:47 PM EST Plan of Treatment Upcoming Encounters Date Type Department Care Team (Late st Contact Info) Description 04/17/2024 2:30 PM EST Scheduled View Only Radiation Oncology at [address] [phone] 04/20/2024 12:45 PM EST Scheduled View Only Radiation Oncology at [address] [phone] 04/21/2024 10:45 AM EST Scheduled View Only Radiation Oncology at [address] [phone] 04/21/2024 11:00 AM EST Office Visit Radiation Oncology at [address] [phone] Radha Casiano MD [facility] [place] [address] 04/22/2024 3:00 PM EST Scheduled View Only Radiation Oncology at [address] [phone] 04/23/2024 3:00 PM EST Scheduled View Only Radiation Oncology at [address] [phone] 04/24/2024 3:00 PM EST Scheduled View Only Radiation Oncology at [address] [phone] 04/27/2024 11:15 AM EST Scheduled View Only Radiation Oncology at [address] [phone] 04/28/2024 11:30 AM EST Scheduled View Only Radiation Oncology at [address] [phone] 04/28/2024 12:00 PM EST Office Visit Radiation Oncology at [address] [phone] Radha Casiano MD [facility] [place] [address] 04/28/2024 2:00 PM EST Office Visit Cardiology at [address] [place] [address] Letty Montejo, JAYLEN [facility] [place] [address] 04/29/2024 11:15 AM EST Scheduled View Only Radiation Oncology at [address] [phone] 04/30/2024 11:30 AM EST Scheduled View Only Radiation Oncology at [address] [phone] 05/01/2024 11:15 AM EST Scheduled View Only Radiation Oncology at [address] [phone] 05/04/2024 10:45 AM EST Scheduled View Only Radiation Oncology at [address] [phone] 05/05/2024 1:00 PM EST Scheduled View Only Radiation Oncology at [address] [phone] 05/05/2024 1:15 PM EST Office Visit Radiation Oncology at [address] [phone] Radha Casiano MD [facility] [place] [address] 05/06/2024 1:00 PM EST Scheduled View Only Radiation Oncology at [address] [phone] 05/07/2024 1:00 PM EST Scheduled View Only Radiation Oncology at [address] [phone] 05/08/2024 1:00 PM EST Scheduled View Only Radiation Oncology at [address] [phone] 05/11/2024 11:30 AM EST Scheduled View Only Radiation Oncology at [address] [phone] 01/13/2025 1:00 PM EST Office Visit Hematology/Oncology at [address] [phone] Lee Ann Jay MD [facility] [place] [address] Leti Anderson APRN [facility] [place] [address] Health Maintenance Due Date Last Done Comments CT Colonography 1950 FIT DNA 1950 FIT 1950 Pneumoccocal Vaccine: 50+ (1 of 2 - PCV) 11/28/1970 Tetanus/Diphtheria/Pertussis Vaccines (1 - Tdap) 11/28/1970 Zoster vaccine (1 of 2) 11/28/1970 Breast Cancer Share Decision Needed 1991 Advance Directive 11/28/2006 RSV Vaccine (1 - Risk 60-74 years 1-dose series) 2011 Bone Density Scan 11/28/2016 Covid-19 Vaccine ( - 2023-2 5 season) 2023 Influenza (Flu) vaccine (1 o f 1 - Influenza standard series) 11/10/2023 Colonoscopy 04/12/2024 04/12/2022, 02/0 04/2022, 04/12/2022, Additional history exists Colorectal Cancer Screening 04/12/2024 Sigmoidoscopy 09/01/2024 09/02/2019 Breast Cancer screening 01/15/2026 01/16/2024 Sigmoidoscopy (10 year) with FIT yearly 04/12/2032 04/12/2022, 04/12/2022, 04/12/2022, Additional history exists Hepatitis C Screening Completed 07/09/2016 Diabetes Screening (HgbA1C o r Glucose) Discontinued 04/09/2023, 04/09/2023, 09/04/2019, Additional history exists Medical Devices Implanted Type Area Crystallographer Device Identifier Shelf Expiration Date Model / Serial / Lot Breast Clip-01/16/2024 Implanted:Qty: 1 on 01/16/2024 by Kathia Trimble MD Breast Clip Right: Breast Bard - 0614 [id number] / [id number] / [id number] Description:MRI Biosy marker - Right Breast Clip-01/16/2024 Implanted:Qty: 1 on 01/16/2024 by Tamir Fletcher MD Breast Clip Left: Breast Bard - 0614 [id number] / [id number] / [id number] Description:MRI Biopsy marke r - Left Procedures Procedure Name Priority Date/Time Associated Diagnosis Comments DOUGH MIXER SCAN 04/09/2024 12:[address] RAD ONC CHEST INTERP ONLY Routine 03/27/2024 11:06 AM EST Malignant neoplasm of upper-outer quadrant of right breast in female, estrogen receptor positive DOUGH MIXER SCAN 03/07/2024 12:00 AM EST EKG 12-LEAD STAT 02/19/2024 4:28 PM EST Tachyarrhythmia MAMMO SPECIMEN RIGHT Routine 02/19/2024 1:16 PM EST Malignant neoplasm of right female breast, unspecified estrogen receptor status, unspecified site of breast SURGICAL PATHOLOGY Routine 02/19/2024 1: 08 PM EST MODIFIER WITH NEEDLE LOC., LESION #1 02/19/2024 12:07 PM EST BREAST CANCER Intraop [place] Lymph Id W/Dye Injection (98559) 02/19/2024 12:07 PM EST BREAST CANCER Mastectomy Partial (57028) 02/19/2024 12:07 PM EST BREAST CANCER MAMMO NEEDLE LOCALIZATION RIGHT Routine 02/19/2024 9:20 AM EST Malignant neoplasm of right female breast, unspecified estrogen receptor status, unspecified site of breast MAMMO DIAGNOSTIC WITHOUT CAD BILATERAL Routine 01/16/2024 11:10 AM EST Abnormal finding on breast imaging MRI GUIDED BIOPSY BREATS VACUUM ASSISTED W CLIP PLACEMENT BILATERAL Routine 01/16/2024 10:42 AM EST Abnormal finding on breast imaging SURGICAL PATHOLOGY Routine 01/16/2024 10 :24 AM EST Abnormal finding on breast imaging COMPREHENSIVE METABOLIC PANEL Routine 04/09/2023 COLONOSCOPY Routine 04/12/2022 7:40 AM EST HEPATITIS C ANTIBODY Routine 07/09/2016 12:00 PM EDT Leukopenia, unspecified type from Last 3 Months or Most Recently Relevant to Health Maintenance Results * Scan Doc: Data Entry Processor (04/09/2024 12:00 AM EST) Anatomical Region Laterality Modality Other Narrative 04/09/2024 12:00 AM EST Ordered by an unspecified provider. Scanning Provider MEDIA MGR SCAN EXT O RDR/RSLT * CT Rad Onc Chest Interp Only (03/27/2024 11:06 AM EST) WORKSTATION ID [id number] RAD Anatomical Region Laterality Modality Chest Computed Tomogra phy Impressions 04/03/2024 10:06 AM EST Radiation planning CT. Thank you for letting us participate in the care of this patient. ??If you are a health care provider and have any questions regarding this report, please contact the number below. ??For patients who have questions please contact the health career development associate that requested your imaging first. ? Narrative 04/03/2024 10:06 AM EST EXAMINATION: CT RAD ONC CHEST INTERP ONLY CLINICAL HISTORY: 73 y/o f w/breast ca, R, DCIS, gr 3, ER+, 5 cm, s/p lumpectomy w/1 close margin (1 mm), pTis. C50.411, Malignant neoplasm of upper-outer quadrant of right female breast - Z17.0, Estrogen receptor positive status (ER+) TECHNIQUE: Limited CT without the use of oral or IV contrast performed for the purposes of localization for radiation treatment. COMPARISON: None FINDINGS: Pulmonary parenchyma: Mild bilateral dependent atelectasis. No suspicious pulmonary lesions. Airways: Central and segmental airways are patent. Pleura: No effusion. Lymph nodes: No lymphadenopathy. Heart and vasculature: Normal size of the heart. No pericardial effusion. Normal caliber and contour of the thoracic aorta. Limited upper abdomen: No significant finding. Body wall soft tissues: Postoperative changes in the right breast. Skeleton: Fixation hardware in the left clavicle. Procedure Note Pema Rascon MD - 04/03/2024 EXAMINATION: CT RAD ONC CHEST INTERP ONLY CLINICAL HISTORY: 73 y/o f w/breast ca, R, DCIS, gr 3, ER+, 5 cm, s/plumpectomy w/1 close margin (1 mm), pTis. C50.411, Malignant neoplasm of upper-outer quadrant of right female breast- Z17.0, Estrogen receptor positive status (ER+) TECHNIQUE: Limited CT without the use of oral or IV contrast performed forthe purposes of localization for radiation treatment. COMPARISON: None FINDINGS: Pulmonary parenchyma: Mild bilateral dependent atelectasis. Nosuspicious pulmonary lesions. Airways: Central and segmental airways are patent. Pleura: No effusion. Lymph nodes: No lymphadenopathy. Heart and vasculature: Normal size of the heart. No pericardial effusion.Normal caliber and contour of the thoracic aorta. Limited upper abdomen: No significant finding. Body wall soft tissues: Postoperative changes in the right breast. Skeleton: Fixation hardware in the left clavicle. IMPRESSION Radiation planning CT. Thank you for letting us participate in the care of this patient. If youare a health care provider and have any questions regarding this report,please contact the number below. For patients who have questions please contactthe health career development associate that requested your imaging first. Electronically signed by: Pema Lanier MD, [facility] ([phone]), at 04/03/2024 10:06 AM Radha Casiano MD IMG OUTSIDE INTERPRE TATION ORDERABLES * Scan Doc: Data Entry Processor (03/07/2024 12:00 AM EST) Anatomical Region Laterality Modality Other Narrative 03/07/2024 12:00 AM EST Ordered by an unspecified provider. Scanning Provider MEDIA MGR SCAN EXT O RDR/RSLT * EKG 12 Lead (02/19/2024 4:28 PM EST) Ventricular rate 114 BPM MUSE SYSTEM Atrial Rate 192 BPM MUSE SYSTEM QRS Duration 84 ms MUSE SYSTEM Q-T Interval 346 ms MUSE SYSTEM QTC Calculated (Bezet) 476 ms MUSE SYSTEM Calculated R [place] -28 degrees MUSE SYSTEM Calculated T [place] -66 degrees MUSE SYSTEM INTERPRETATION Atrial fibrillation with rapid ventricular response Low voltage QRS ST & T wave abnormality, consider anterior ischemia or digitalis effect Abnormal ECG When compared with ECG of 29-MAY-2007 10:22, Atrial fibrillation has replaced Sinus rhythm Vent. rate has increased BY ??[address] now depressed in Anterolateral leads T wave inversion more evident in Inferior leads T wave inversion now evident in Anterior leads Confirmed by MD Concha, Flaco ([id number]) on 02/20/2024 3:00:57 PM MUSE SYSTEM 02/19/2024 4:28 PM EST 02/20/2024 3:00 PM EST Martina Pugh MD ECG ORDERABLES MUSE SYSTEM * Mammo Specimen Right (02/19/2024 1:16 PM EST) WORKSTATION ID [id number] 1 RAD Anatomical Region Laterality Modality Breast Right Mammography Narrative 02/19/2024 4:05 PM EST EXAMINATION: MAMMO SPECIMEN RIGHT INDICATION: Intraoperative specimen image for adequacy of lesion and/or clip removal TECHNIQUE: A radiograph was obtained of the excised Right breast specimen. COMPARISONS: Preoperative imaging FINDINGS: Both localization wires, IV Infinity clip, and the M clip are included within the specimen. Soft tissue and calcifications approximates the margins of C3 and T3 as well as the margins of the C5, C5 and C6. This was communicated with the surgeon who plans to take additional tissue in these areas. Margins were felt to be not adequately clear by single plane radiography. MARTINA PUGH was informed in the operating room of the results by Tamir Fletcher M.D. at 1:24 PM. I have personally reviewed the image(s) and the resident's interpretation and agree with the findings, Kathia Trimble at 02/19/2024 4:05 PM Thank you for letting us participate in the care of this patient. ??If you are a health care provider and have any questions regarding this report, please contact the number below. ??For patients who have questions please contact the health career development associate that requested your imaging first. ? [facility] [address] [place], [place] ??[address] Martina Pugh MD [facility] MAMMO ORDERAB LES * Surgical Pathology (02/19/2024 1:08 PM EST) Only the most recent of2 resultswithin the time period is included. Case Report Surgical Pathology Report ? Case: [id number] ? Authorizing Provider: ??Martina Pugh MD ?? Collected: ? 02/19/2024 1308 ? Ordering Location: ? [facility] ??Received: ?02/19/2024 1348 ? [facility] ? Hospital ? Pathologist: ? Ana Damon, DO ? Specimens: ?? A) - Breast, Right, Right partial Mastectomy ? B) - Breast, Right, Margin, Right posterior margin ? C) - Breast, Right, Margin, Right Superior margin ? D) - Breast, Right, Margin, Right Inferior margin ? E) - Breast, Right, Margin, Right Anterior margin ? 02/27/2024 4:13 PM [facility] Final Diagnosis A. Breast, right, partial mastectomy: - Ductal carcinoma in situ (see Synoptic Report). - Biopsy site changes. B. Right breast, posterior margin, excision: - Benign breast tissue. C. Right breast, superior margin, excision: - Ductal carcinoma in situ, 3 mm span, 1 mm from superior margin. D. Right breast, inferior margin, excision: - Benign breast tissue. E. Right breast, anterior margin, excision: - Benign breast tissue. 02/27/2024 4:13 PM [facility] Synoptic Report DCIS OF THE BREAST: Resection DCIS OF THE BREAST: RESECTION - A 8th Edition - Protocol posted: 05/31/2021 SPECIMEN ?? Procedure: ?Excision (less than total mastectomy) ?? Specimen Laterality: ?Right TUMOR ?? Histologic Type: ?Ductal carcinoma in situ ?? Size (Extent) of DCIS: ?Estimated size (extent) of DCIS is at least (Millimeters): 50 mm ?? Architectural Patterns: ?[place] ?? Architectural Patterns: ?Cribriform ?? Architectural Patterns: ?Micropapillary ?? Architectural Patterns: ?Solid ?? Nuclear Grade: ?Grade III (high) ?? Necrosis: ?Present, central (expansive comedo necrosis) ?? Microcalcificatio ns: ?Present in DCIS MARGINS ?? Margin Status: ?DCIS present at margin ? Margin(s) Involved by DCIS: ?Superior: in specimen A. See additional superior margin excision (specimen C). ? Margin(s) Involved by DCIS: ?Inferior: in specimen A. Additional inferior margin excision negative. ? Distance from DCIS to Anterior Margin: ?Less than: 1 mm ? Distance from DCIS to Posterior Margin: ?Greater than: 2 mm ? Distance from DCIS to Medial Margin: ?Greater than: 2 mm ? Distance from DCIS to Lateral Margin: ?2 mm REGIONAL LYMPH NODES ?? Regional Lymph Node Status: ?Not applicable (no regional lymph nodes submitted or found) PATHOLOGIC STAGE CLASSIFICATION (pTNM, AJCC 8th Edition) ?? Reporting of pT, pN, and (when applicable) pM categories is based on information available to the pathologist at the time the report is issued. As per the AJCC (Chapter 1, 8th Ed.) it is the managing physician? s responsibility to establish the final pathologic stage based upon all pertinent information, including but potentially not limited to this pathology report. ?? pT Category: ?pTis (DCIS) ?? pN Category: ?pN not assigned (no nodes submitted or found) 02/27/2024 4:13 PM [facility] Clinical Information A. Breast, Right, Right partial Mastectomy *Other - as specified in Clinical Information Right Breast Cancer 02/27/2024 4:13 PM [facility] Gross Description A. Breast, Right, Right partial Mastectomy. A - Labeled/Fixative: Right partial mastectomy, fresh. Quantity/Size/Seymour ght: Single, 7.9 x 6.0 x 2.1 cm ,46 g. SPECIMEN DESCRIPTION Resection Specimen: Intact, partial mastectomy. Specimen radiograph: Infinity clip was placed and noted to be at the expected location on post-procedure mammogram.. Specimen Description: According to the established protocol the ink designations are red (medial), yellow (lateral), orange (superior), green (inferior), black (posterior) and blue (anterior). Tissue Sections: The specimen is serially sectioned perpendicular to the long axis from medial-red to lateral-yellow into VIII slices, each averaging 1.0 cm in thickness. LESION Description: 5.0 x 3.6 x 2.5 cm, white, rubberycalcificat ion, mass, biopsy cavity, biopsy site, with ill-defined borders. Vaguely ill-defined mass and dense fibrous tissue Location: Slice I to slice IV. Nearest Margin(s): 0.2 cm, anterior-blue. Other Margin(s): 0.5 cm, inferior-green, medial-red. Other Margin(s): 1.0 cm, superior-orange. Other Margin(s): 1.5 cm, posterior-black. Other Margin(s): >2 cm, lateral-yellow. Wire/clip: Slice III Other: Biopsy cavity is identified in slice II Parenchyma: Fibroadipose tissue, fibrous tissue 30%, adipose tissue 70% Sections/Processi ng: Gas Manager sections in 23 cassettes as follows: A1-A3: Slice I, medial margin, entirely submitted A4-A7: Slice II, lesion, dense fibrous tissue and biopsy site to the anterior, posterior, inferior, superior margin, entirely submitted A8-A9: Slice III, the lesion, calcification and the biopsy site to the anterior, posterior, inferior, superior margin; clip is identified in A8 A10-A11: Slice IV, the lesion and fibrous tissue to the anterior, posterior inferior and superior margin, bisected A12-A13: Slice IV,the lesion and fibrous tissue to the anterior, posterior inferior and superior margin, trisected A14-A15: Slice V, fibrous tissue with the superior and inferior margin A16-A19: Slice , fibrous tissue and the calcifications to the anterior, posterior, inferior and superior margin, entirely submitted A20-A21: Slice VII, fibrous tissue and calcification to inferior, anterior, posterior margin A22-A23: Slice VIII, lateral margin, perpendicular section Ischemic time: 1 hour B. Breast, Right, Margin, Right posterior margin. B - Labeled/Fixative: Right posterior margin, fresh. Quantity/Size: Single, 3.0 x 2.0 x 0.6 cm. Tissue Description: Fibroadipose tissue, margin is inked black. Sections/Processi ng: Entirely submitted in 3 cassettes labeled B1-B3. C. Breast, Right, Margin, Right Superior margin. C - Labeled/Fixative: Right superior margin, fresh. Quantity/Size: Single, 9.5 x 2.0 x 0.7 cm. Tissue Description: Fibroadipose tissue, margin is inked orange. Sections/Processi ng: Entirely submitted in 6 cassettes labeled C1-C6. D. Breast, Right, Margin, Right Inferior margin. D - Labeled/Fixative: Right inferior margin, fresh. Quantity/Size: Single, 4.5 x 2.5 x 1.0 cm. Tissue Description: Fibroadipose tissue, margin is inked green. Sections/Processi ng: Entirely submitted in 3 cassettes labeled D1-D3. E. Breast, Right, Margin, Right Anterior margin. E - Labeled/Fixative: Right anterior margin, fresh. Quantity/Size: Single, 2.7 to 0.5 x 0.6 cm. Tissue Description: Fibroadipose tissue, margin is inked blue. Sections/Processi ng: Entirely submitted in 3 cassettes labeled E1-E3. 02/27/2024 4:13 PM [facility] Result Note Routine 02/27/2024 4:13 PM [facility] Tissue RIGHT BREAST STRUCTURE / Unknown 02/19/2024 1:08 PM EST 02/19/2024 1:48 PM EST Comment:Right Breast Cancer Tissue specimen (specimen) SPECIMEN FROM LEFT BREAST / Unknown 02/19/2024 1:17 PM EST 02/19/2024 2:21 PM EST Comment:Right Breast Cancer Tissue specimen (specimen) SPECIMEN FROM LEFT BREAST / Unknown 02/19/2024 1:19 PM EST 02/19/2024 2:21 PM EST Comment:Right Breast Cancer Tissue specimen (specimen) SPECIMEN FROM LEFT BREAST / Unknown 02/19/2024 1:19 PM EST 02/19/2024 2:21 PM EST Comment:Right Breast Cancer Tissue specimen (specimen) SPECIMEN FROM LEFT BREAST / Unknown 02/19/2024 1:29 PM EST 02/19/2024 2:21 PM EST Comment:Right Breast Cancer Martina Pugh MD PATHOLOGY/CYTOLOG Y ORDERABLES [facility] [place] [address] * Mammo Needle Localization Right (02/19/2024 9:20 AM EST) WORKSTATION ID [id number] 1 RAD Anatomical Region Laterality Modality Breast Right Mammography Impressions 02/19/2024 9:38 AM EST Successful preoperative wire bracketing of right breast known malignancy. Procedural attestation: Resident: Dr. Amarjit Harris Attending: I performed the procedure with the resident observing. Thank you for letting us participate in the care of this patient. ??If you are a health care provider and have any questions regarding this report, please contact the number below. ??For patients who have questions please contact the health career development associate that requested your imaging first. ? [facility] [address] [place] ??[id number] Narrative 02/19/2024 9:38 AM EST EXAMINATION: MAMMO NEEDLE LOCALIZATION RIGHT CLINICAL HISTORY: Please needle localize right breast with bracket for cancer lesion. ??73 year-old with recently diagnosed DCIS. Preop localization bracketing the area of known disease. Lesion 1: Postbiopsy clip at the posterior aspect of calcifications in the right at posterior depth Lesion 2: Postbiopsy M shaped clip at the anterior aspect of known malignancy. Lesion 1: Following skin cleansing and injection of approximately 5 cc 1% lidocaine, a needle localization of the calcifications posterior to the biopsy clip in the Right posterior breast was performed from the lateral approach with digital mammographic guidance. A 5 cm Ghiatas Bard needle was used. Lesion 2: Following skin cleansing and injection of approximately 5 cc 1% lidocaine, a needle localization of the M shaped biopsy clip in the Right anterior breast was performed from the lateral approach with digital mammographic guidance. A 5 cm Ghiatas Bard needle was used. CC and lateral images were annotated on PACS for the surgical team to confirm wire placement relative to the lesion. Procedure Note Kathia Trimble MD - 02/19/2024 EXAMINATION: MAMMO NEEDLE LOCALIZATION RIGHT CLINICAL HISTORY: Please needle localize right breast with bracket forcancer lesion. 73 year-old with recently diagnosed DCIS. Preop localizationbracketing the area of known disease. Lesion 1: Postbiopsy clip at the posterior aspect of calcifications in theright at posterior depth Lesion 2: Postbiopsy M shaped clip at the anterior aspect of knownmalignancy. Lesion 1: Following skin cleansing and injection of approximately 5 cc1% lidocaine, a needle localization of the calcifications posterior to thebiopsy clip in the Right posterior breast was performed from the lateral approachwith digital mammographic guidance. A 5 cm Ghiatas Bard needle was used. Lesion 2: Following skin cleansing and injection of approximately 5 cc1% lidocaine, a needle localization of the M shaped biopsy clip in theRight anterior breast was performed from the lateral approach with digital mammographic guidance. A 5 cm Ghiatas Bard needle was used. CC and lateral images were annotated on PACS for the surgical team toconfirm wire placement relative to the lesion. IMPRESSION Successful preoperative wire bracketing of right breast knownmalignancy. Procedural attestation: Resident: Dr. Amarjit Harris Attending: I performed the procedure with the resident observing. Thank you for letting us participate in the care of this patient. If youare a health care provider and have any questions regarding this report,please contact the number below. For patients who have questions please contactthe health career development associate that requested your imaging first. [facility] [place] [id number] Martina Pugh MD IMG MAMMO ORDERAB LES * Mammo Diagnostic Without Cad Bilateral (01/16/2024 11:10 AM EST) WORKSTATION ID [id number] 1 RAD Anatomical Region Laterality Modality Breast Bilateral Mammography Narrative 01/16/2024 12:15 PM EST EXAMINATION: MAMMO DIAGNOSTIC WITHOUT CAD BILATERAL CLINICAL INDICATION: Check marker placement TECHNIQUE: Cranio-caudal and lateral digital mammography of both breasts was performed to determine biopsy marker placement COMPARISON: Pre biopsy imaging. BREAST DENSITY: The breasts are heterogeneously dense, which may obscure small masses. FINDINGS: RIGHT Breast: The M shape marker clip is in the expected location. Upper outer quadrant, middle third. LEFT Breast: The M shape marker clip is in the expected location. ??Upper outer quadrant, middle third. ASSESSMENT: Post procedure mammogram for marker placement I have personally reviewed the image(s) and the resident's interpretation and agree with the findings, Kathia Trimble at 01/16/2024 12:15 PM Thank you for letting us participate in the care of this patient. ??If you are a health care provider and have any questions regarding this report, please contact the number below. ??For patients who have questions please contact the health career development associate that requested your imaging first. ? [facility] [place] ??[id number] Jodee Ortega MD IMG MAMMO ORDERABLES * MRI Guided Biopsy Breast Vacuum Assisted w Clip Placement Bilateral (01/16/2024 10:42 AM EST) WORKSTATION ID [id number] 4 RAD Anatomical Region Laterality Modality Breast Bilateral Magnetic Resonan ce Addenda Addendum by Kathia Trimble MD on 01/21/2024 12:41 PM EST --------ADDENDUM #1-------- PATHOLOGIC DIAGNOSIS: A) LEFT BREAST: Benign breast tissue with apocrine metaplasia and focal fibrotic stroma. Microcalcifications associated with benign ductal epithelium. B) RIGHT BREAST: DCIS with mild apocrine features, intermediate to high grade, solid and cribriform patterns with comedonecrosis IMPRESSION: A) LEFT BREAST: Benign, Concordant result B) RIGHT BREAST: Malignant, Concordant result RECOMMENDATION: Surgical excision on the right as discussed with the patient and conveyed to the Comprehensive Breast Program. REVIEW PATH CONFERENCE?: No These findings were discussed with the patient by Tamir Fletcher M.D., with verbal confirmation of these results by the recipient on 01/20/2024 9:12 AM. ?? Preliminary report signed by: Tamir Fletcher MD at 01/20/2024 9:16 AM I have personally reviewed the image(s) and the resident's interpretation and agree with the findings, Kathia Trimble at 01/21/2024 12:36 PM Thank you for letting us participate in the care of this patient. ??If you are a health care provider and have any questions regarding this report, please contact the number below. ??For patients who have questions please contact the health career development associate that requested your imaging first. ? --------ORIGINAL REPORT -------- EXAMINATION: MRI GUIDED BIOPSY BREATS VACUUM ASSISTED W CLIP PLACEMENT BILATERAL CLINICAL INDICATION: abnormal finding on MRI. Recently diagnosed right breast DCIS. MRI guided biopsy of anterior extent of right breast nonmass enhancement and left breast enhancing mass as described on MRI 12/24/2023. Right breast lesion: 4 cm group of microcalcifications, 10:00 radian, posterior depth. The anterior margin of nonmass enhancement was targeted for biopsy. Left breast lesion: 1 cm Mass left upper outer quadrant, approximately 2:00 radian, middle depth which was targeted for biopsy TECHNIQUE: After obtaining informed consent the patient was placed in the 1.5 Ember magnet using a breast imaging coil with a localizing grid. Multiplanar sequences were obtained pre- and post- intravenous administration of 14 cc's Dotarem. The lesions were identified and localized in each breast. While using sterile technique, less than 5 cc's of 1% Xylocaine for superficial anesthesia, and less than 20 cc's of 1% Xylocaine with epinephrine for deep anesthesia was injected and a 9 gauge Suros Eviva vacuum assisted needle was placed in position. Pre- sampling axial images were obtained and verified satisfactory location of the needles. Multiple samples were obtained using the vacuum-assisted device on each side. A marker was deployed in each breast. Images were obtained after clip deployment to confirm satisfactory positioning of the marker relative to the lesion. Subsequently, a post biopsy mammogram was performed in the CC and true lateral projections to verify clip type and location. FINDINGS: The left and right breast lesion were identified and per protocol each lesion was sampled using the vacuum assisted device. An M clip was placed in the left and right breast at the site of biopsy. There was no post procedure complications. Cranio-caudal and lateral digital mammography performed of each breast to determine biopsy marker placement, which was shown to be at the expected location, bilaterally. COMPLICATIONS: None PROCEDURAL ATTESTATION: Fellow: Tamir Fletcher M.D. Attending: I was present with the resident for the chaparro component(s) of the procedure and otherwise remained immediately available for the duration of the procedure. I attest to having personally viewed the images/test and approve the above interpretation. PATHOLOGIC DIAGNOSIS: Pending IMPRESSION: Pending result, an addendum will be rendered to this report once result is available RECOMMENDATION: Pending REVIEW PATH CONFERENCE?: No I have personally reviewed the image(s) and the resident's interpretation and agree with the findings, Kathia Trimble at 01/16/2024 4:19 PM Thank you for letting us participate in the care of this patient. ??If you are a health care provider and have any questions regarding this report, please contact the number below. ??For patients who have questions please contact the health career development associate that requested your imaging first. ? Impressions 01/16/2024 4:19 PM EST Pending result, an addendum will be rendered to this report once result is available RECOMMENDATION: Pending REVIEW PATH CONFERENCE?: No I have personally reviewed the image(s) and the resident's interpretation and agree with the findings, Kathia Trimble at 01/16/2024 4:19 PM Thank you for letting us participate in the care of this patient. ??If you are a health care provider and have any questions regarding this report, please contact the number below. ??For patients who have questions please contact the health career development associate that requested your imaging first. ? Narrative 01/16/2024 4:19 PM EST EXAMINATION: MRI GUIDED BIOPSY BREATS VACUUM ASSISTED W CLIP PLACEMENT BILATERAL CLINICAL INDICATION: abnormal finding on MRI. Recently diagnosed right breast DCIS. MRI guided biopsy of anterior extent of right breast nonmass enhancement and left breast enhancing mass as described on MRI 12/24/2023. Right breast lesion: 4 cm group of microcalcifications, 10:00 radian, posterior depth. The anterior margin of nonmass enhancement was targeted for biopsy. Left breast lesion: 1 cm Mass left upper outer quadrant, approximately 2:00 radian, middle depth which was targeted for biopsy TECHNIQUE: After obtaining informed consent the patient was placed in the 1.5 Ember magnet using a breast imaging coil with a localizing grid. Multiplanar sequences were obtained pre- and post- intravenous administration of 14 cc's Dotarem. The lesions were identified and localized in each breast. While using sterile technique, less than 5 cc's of 1% Xylocaine for superficial anesthesia, and less than 20 cc's of 1% Xylocaine with epinephrine for deep anesthesia was injected and a 9 gauge [employer] Eviva vacuum assisted needle was placed in position. Pre- sampling axial images were obtained and verified satisfactory location of the needles. Multiple samples were obtained using the vacuum-assisted device on each side. A marker was deployed in each breast. Images were obtained after clip deployment to confirm satisfactory positioning of the marker relative to the lesion. Subsequently, a post biopsy mammogram was performed in the CC and true lateral projections to verify clip type and location. FINDINGS: The left and right breast lesion were identified and per protocol each lesion was sampled using the vacuum assisted device. An M clip was placed in the left and right breast at the site of biopsy. There was no post procedure complications. Cranio-caudal and lateral digital mammography performed of each breast to determine biopsy marker placement, which was shown to be at the expected location, bilaterally. COMPLICATIONS: None PROCEDURAL ATTESTATION: Fellow: Tamir Fletcher M.D. Attending: I was present with the resident for the chaparro component(s) of the procedure and otherwise remained immediately available for the duration of the procedure. I attest to having personally viewed the images/test and approve the above interpretation. PATHOLOGIC DIAGNOSIS: Pending Procedure Note Kathia Trimble MD - 01/16/2024 EXAMINATION: MRI GUIDED BIOPSY BREATS VACUUM ASSISTED W CLIP PLACEMENTBILATERAL CLINICAL INDICATION: abnormal finding on MRI. Recently diagnosed rightbreast DCIS. MRI guided biopsy of anterior extent of right breast nonmassenhancement and left breast enhancing mass as described on MRI 12/24/2023. Right breast lesion: 4 cm group of microcalcifications, 10:00 radian, posterior depth. Theanterior margin of nonmass enhancement was targeted for biopsy. Left breast lesion: 1 cm Mass left upper outer quadrant, approximately 2:00 radian, middledepth which was targeted for biopsy TECHNIQUE: After obtaining informed consent the patient was placed in the 1.5 Teslamagnet using a breast imaging coil with a localizing grid. Multiplanar sequenceswere obtained pre- and post- intravenous administration of 14 cc's Dotarem.The lesions were identified and localized in each breast. While usingsterile technique, less than 5 cc's of 1% Xylocaine for superficial anesthesia,and less than 20 cc's of 1% Xylocaine with epinephrine for deep anesthesia wasinjected and a 9 gauge SuriF[employer]illment Eviva vacuum assisted needle was placed in position.Pre- sampling axial images were obtained and verified satisfactory location ofthe needles. Multiple samples were obtained using the vacuum-assisted deviceon each side. A marker was deployed in each breast. Images were obtained afterclip deployment to confirm satisfactory positioning of the marker relative tothe lesion. Subsequently, a post biopsy mammogram was performed in the CC andtrue lateral projections to verify clip type and location. FINDINGS: The left and right breast lesion were identified and per protocol eachlesion was sampled using the vacuum assisted device. An M clip was placed in theleft and right breast at the site of biopsy. There was no post procedure complications. Cranio-caudal and lateral digital mammography performed of each breastto determine biopsy marker placement, which was shown to be at the expected location, bilaterally. COMPLICATIONS: None PROCEDURAL ATTESTATION: Fellow: Tamir Fletcher M.D. Attending: I was present with the resident for the chaparro component(s) ofthe procedure and otherwise remained immediately available for the duration ofthe procedure. I attest to having personally viewed the images/test andapprove the above interpretation. PATHOLOGIC DIAGNOSIS: Pending IMPRESSION Pending result, an addendum will be rendered to this report once result is available RECOMMENDATION: Pending REVIEW PATH CONFERENCE?: No I have personally reviewed the image(s) and the resident's interpretationand agree with the findings, Kathia Trimble at 01/16/2024 4:19 PM Thank you for letting us participate in the care of this patient. If youare a health care provider and have any questions regarding this report,please contact the number below. For patients who have questions please contactthe health career development associate that requested your imaging first. Jodee Ortega MD IMG MRI ORDERABLES * Comprehensive metabolic panel (non-fasting) (04/09/2023) Glucose 101 Blood Urea Nitrogen 12 Creatinine 0.8 Sodium 138 Potassium 4.2 Calcium 9.1 Protein, Total 8.2 Albumin 3.6 Bilirubin, Total 0.6 Alkaline Phosphatase 78 Aspartate Aminotransferase 21 Alanine Aminotransferase 21 Blood 04/09/2023 Historical Provider CHEMISTRY ORDERAB LES * COLONOSCOPY (04/12/2022 7:40 AM EST) COLONOSCOPY [facility] Endoscopy ___ Procedure Date: 04/12/2022 7:40 AM ? Patient Name: Leti Parry ? Date of : 1950 ? Age: 71 ? Order #: [id number] ? Instrument Name: [id number] ? ___ Procedure: ? Colonoscopy Indications: ? Disease activity assessment of ? left-sided chronic ulcerative ? colitis Patient Profile: ? This is a 71 year old female. This ? patient has left-sided ulcerative ? colitis, is taking no medication ? therapy for this disease and is ? asymptomatic. Providers: ? LKris Oliveros MD, Sherin Lawrence, ? Roman Spence, Patient Financial Specialist Referring MD: ?Julia Chatterjee MD Medicines: [...] preparation was evaluated ? using the BBPS ([place] Bowel ? Preparation Scale) with scores of: [...] Chatterjee MD GENERAL SURGICAL ORD ERABLES PROVATION * Hepatitis C Antibody (07/09/2016 12:00 PM EDT) Hepatitis C Antibody Negative Negative [facility] Comment: An updated Hepatitis C Ab assay reagent was implemented on 05/23/16. Please contact Dr. Alfaro at [phone] with any questions or concerns. Blood specimen (specimen) 07/09/2016 12:00 PM EDT 07/09/2016 12:09 PM EDT Narrative Resulting Agency Comment Spec In Lab Lee Ann Jay MD CHEMISTRY ORDERA ARMANDO [facility] [address] [place] [address] from Last 3 Months or Most Recently Relevant to Health Maintenance Advance Directives * Attempt Cardiopulmonary Resuscitation - Inpatient (Latest Code Status on File) Date Activated Date Inactivated Comments 02/19/2024 6:10 AM 02/19/2024 7:48 PM Question Answer Comments Code Status decision made by: Patient Content of discussion: full code periop * Full Code Date Activated Date Inactivated Comments 09/28/2019 9:16 AM 09/29/2019 4:37 AM Question Answer Comments Does patient have capacity to make decision: Yes * Full Code Date Activated Date Inactivated Comments 09/02/2019 1:04 AM 09/07/2019 7:28 PM Question Answer Comments Does patient have capacity to make decision: Yes Care Teams Fixer Boarding Room Relationship Specialty Start Date End Date Julia Chatterjee MD [facility] [address] [place], [place] [id number] [facility] - General 01/31/10
--- OUTSIDE RECORDS SUMMARY | 2024-04-17 01:19 | XMS_ITS | Encounter Summary ---
Author Organization Replaced By [facility] Address [facility] [place] [address] Care Team Providers Care Director Cardiology Name Role Phone Julia Chatterjee MD Primary Care Provider [phone] Encounter Details Date Type Department Care Team (Latest Contact Info) Description 04/14/2024 Travel Social History Tobacco Use Types Packs/Day [...] from your doctor or pharmacy? Never 03/16/2024 [facility] Utilities Answer Date Recorded In the past 12 months has e electric, gas, oil, or water company [...] any time in the past 12 m ont, were you homeless or living in a long-term (including now)? No 03/16/2024 [facility] IPV Inpatient Questions Answer Date Recorded Does [...] EST Scheduled View Only Radiation Oncology at [address] [phone] 04/20/2024 12:45 PM EST Scheduled View Only Radiation Oncology at [address] [address] 04/21/2024 10:45 AM EST Scheduled View Only Radiation Oncology at [address] [address] 04/21/2024 11:00 AM EST Office Visit Radiation Oncology at [address] [address] Radha Casiano MD [facility] [place] [address] 04/22/2024 3:00 PM EST Scheduled View Only Radiation Oncology at [address] [address] 04/23/2024 3:00 PM EST Scheduled View Only Radiation Oncology at [address] [address] 04/24/2024 3:00 PM EST Scheduled View Only Radiation Oncology at [address] [address] 04/27/2024 11:15 AM EST Scheduled View Only Radiation Oncology at [address] [address] 04/28/2024 11:30 AM EST Scheduled View Only Radiation Oncology at [address] [address] 04/28/2024 12:00 PM EST Office Visit Radiation Oncology at [address] [address] Radha Casiano MD [facility] [place] [address] 04/28/2024 2:00 PM EST Office Visit Cardiology at [address] [place] [address] Letty Montejo APRN [facility] [place] [address] 04/29/2024 11:15 AM EST Scheduled View Only Radiation Oncology at [address] [address] 04/30/2024 11:30 AM EST Scheduled View Only Radiation Oncology at [address] [address] 05/01/2024 11:15 AM EST Scheduled View Only Radiation Oncology at [address] [address] 05/04/2024 10:45 AM EST Scheduled View Only Radiation Oncology at [address] [address] 05/05/2024 1:00 PM EST Scheduled View Only Radiation Oncology at [address] [address] 05/05/2024 1:15 PM EST Office Visit Radiation Oncology at [address] [address] Radha Casinao MD [facility] [place] [address] 05/06/2024 1:00 PM EST Scheduled View Only Radiation Oncology at [address] [address] 05/07/2024 1:00 PM EST Scheduled View Only Radiation Oncology at [address] [address] 05/08/2024 1:00 PM EST Scheduled View Only Radiation Oncology at [address] [address] 05/11/2024 11:30 AM EST Scheduled View Only Radiation Oncology at [address] [address] 01/13/2025 1:00 PM EST Office Visit Hematology/Oncology at [address] [address] Lee Ann Jay MD [facility] DR [place] [address] Leti Anderson APRN [facility] DR [place] [address] documented as of this encounter Visit Diagnoses Not on filedocumented in this encounter Care Teams Director Cardiology Relationship Specialty Start Date End Date Julia hCatterjee MD [facility] KINA DORADO [address] [place] [id number] PCP - General 01/31/10 documented as of this encounter
--- OUTSIDE RECORDS SUMMARY | 2024-04-17 01:19 | XMS_ITS | Encounter Summary ---
Author Organization [facility] Address [facility] [address] Care Team Providers Care Mixer Foam Rubber Name Role Phone Julia Chatterjee MD Primary Care Provider [phone] Encounter Details Date Type Department Care Team (Latest Contact Info) Description 04/16/2024 Travel Social History Tobacco Use Types Packs/Day [...] from your doctor or pharmacy? Never 03/16/2024 [facility] Utilities Answer Date Recorded In the [...] were you homeless or living in a jail (including now)? No 03/16/2024 [facility] IPV Inpatient [...] EST Scheduled View Only Radiation Oncology at [address] [address] 04/20/2024 12:45 PM EST Scheduled View Only Radiation Oncology at [address] [address] 04/21/2024 10:45 AM EST Scheduled View Only Radiation Oncology at [address] [address] 04/21/2024 11:00 AM EST Office Visit Radiation Oncology at [address] [address] Radha Casiano MD [facility] [place] [address] 04/22/2024 3:00 PM EST Scheduled View Only Radiation Oncology at [address] [address] 04/23/2024 3:00 PM EST Scheduled View Only Radiation Oncology at [address] [address] 04/24/2024 3:00 PM EST Scheduled View Only Radiation Oncology at [address] [address] 04/27/2024 11:15 AM EST Scheduled View Only Radiation Oncology at [address] [address] 04/28/2024 11:30 AM EST Scheduled View Only Radiation Oncology at [address] [address] 04/28/2024 12:00 PM EST Office Visit Radiation Oncology at [address] [address] Radha Casiano MD [facility] [place] [address] 04/28/2024 2:00 PM EST Office Visit Cardiology at [address] [place] [address] Letty Montejo APRN [facility] [place] [address] 04/29/2024 11:15 AM EST Scheduled View Only Radiation Oncology at [address] [address] 04/30/2024 11:30 AM EST Scheduled View Only Radiation Oncology at [address] [address] 05/01/2024 11:15 AM EST Scheduled View Only Radiation Oncology at [address] [address] 05/04/2024 10:45 AM EST Scheduled View Only Radiation Oncology at [address] [address] 05/05/2024 1:00 PM EST Scheduled View Only Radiation Oncology at [address] [address] 05/05/2024 1:15 PM EST Office Visit Radiation Oncology at [address] [address] Radha Casiano MD [facility] [place] [address] 05/06/2024 1:00 PM EST Scheduled View Only Radiation Oncology at [address] [address] 05/07/2024 1:00 PM EST Scheduled View Only Radiation Oncology at [address] [address] 05/08/2024 1:00 PM EST Scheduled View Only Radiation Oncology at [address] [address] 05/11/2024 11:30 AM EST Scheduled View Only Radiation Oncology at [address] [address] 01/13/2025 1:00 PM EST Office Visit Hematology/Oncology at [address] [address] Lee Ann Jay MD [facility] [place] [address] Leti Anderson APRN [facility] [place] [address] documented as of this encounter Visit Diagnoses Not on filedocumented in this encounter Care Teams Mixer Foam Rubber Relationship Specialty Start Date End Date Julia Chatterjee MD [facility] KINA DORADO [address] [place] [id number] PCP - General 01/31/10 documented as of this encounter
--- OUTSIDE RECORDS SUMMARY | 2024-04-17 01:19 | XMS_ITS | Encounter Summary ---
Author Organization [facility] Address [facility] [place] [address] Care Team Providers Care Shovel Log Loader Operator Name Role Phone Julia Chatterjee MD Primary Care Provider [phone] Encounter Details Date Type Department Care Team (Late st Contact Info) Description 04/14/2024 Abstract Cardiology at [address] [address] Amarilis Casiano RN Social History Tobacco Use Types Packs/Day [...] from your doctor or pharmacy? Never 03/16/2024 [facility] Utilities Answer Date Recorded In the past 12 months has [facility] [employer], gas, oil, or water [employer] threatened to shut off services in your [...] were you homeless or living in a mcfp (including now)? No 03/16/2024 [facility] IPV Inpatient [...] EST Scheduled View Only Radiation Oncology at [address] [address] 04/20/2024 12:45 PM EST Scheduled View Only Radiation Oncology at [address] [address] 04/21/2024 10:45 AM EST Scheduled View Only Radiation Oncology at [address] [address] 04/21/2024 11:00 AM EST Office Visit Radiation Oncology at [address] [address] Radha Casiano MD [facility] RADI[place] [address] 04/22/2024 3:00 PM EST Scheduled View Only Radiation Oncology at [address] [address] 04/23/2024 3:00 PM EST Scheduled View Only Radiation Oncology at [address] [address] 04/24/2024 3:00 PM EST Scheduled View Only Radiation Oncology at [address] [address] 04/27/2024 11:15 AM EST Scheduled View Only Radiation Oncology at [address] [address] 04/28/2024 11:30 AM EST Scheduled View Only Radiation Oncology at [address] [address] 04/28/2024 12:00 PM EST Office Visit Radiation Oncology at [address] [address] Radha Casiano MD [facility] [place] [address] 04/28/2024 2:00 PM EST Office Visit Cardiology at [address] [phone] Letty Montejo APRN [facility] [place] [address] 04/29/2024 11:15 AM EST Scheduled View Only Radiation Oncology at [address] [address] 04/30/2024 11:30 AM EST Scheduled View Only Radiation Oncology at [address] [address] 05/01/2024 11:15 AM EST Scheduled View Only Radiation Oncology at [address] [address] 05/04/2024 10:45 AM EST Scheduled View Only Radiation Oncology at [address] [address] 05/05/2024 1:00 PM EST Scheduled View Only Radiation Oncology at [address] [address] 05/05/2024 1:15 PM EST Office Visit Radiation Oncology at [address] [address] Radha Casiano MD [facility] [place] [address] 05/06/2024 1:00 PM EST Scheduled View Only Radiation Oncology at [address] [address] 05/07/2024 1:00 PM EST Scheduled View Only Radiation Oncology at [address] [address] 05/08/2024 1:00 PM EST Scheduled View Only Radiation Oncology at [address] [address] 05/11/2024 11:30 AM EST Scheduled View Only Radiation Oncology at [address] [address] 01/13/2025 1:00 PM EST Office Visit Hematology/Oncology at [address] [address] Lee Ann Jay MD [facility] HEMATOLOGY [place] [address] Leti Anderson APRN [facility] HEMATOLOGY [place] [address] documented as of this encounter Visit Diagnoses Not on filedocumented in this encounter Care Teams Shovel Log Loader Operator Relationship Specialty Start Date End Date Julia Chatterjee MD [facility] KINA FELIZ [address] [address] PCP - General 01/31/10 documented as of this encounter
--- OUTSIDE RECORDS SUMMARY | 2024-04-17 01:20 | XMS_ITS | Encounter Summary ---
Author Organization [facility] Address [facility] [place] [address] Care Team Providers Care Senior Java [id number] Developer Name Role Phone Julia Chatterjee MD Primary Care Provider [phone] Reason for Referral * Consultation (Urgent) - Authorized Specialty Diagnoses / Procedures Referred By Kimani t Referred To Contact Cardiology Diagnoses Tachyarrhythmia Paroxysmal atrial fibrillation Conduction disorder, unspecified PT HAD RECENT BREAST BIOPSY PERFORMED AT -POST OP SHE WAS NOTED TO BE ASYMPTOMATIC AFIB W/ A RATE UNDER 120.SHE SUBSEQUENTLY HAD A SHOT BAGGER TO ASSESS FOR BURDEN OF ATRIAL FIBRILLATION. FINAL REPORT IS NOT AVAILABLE, BUT SHE HAS HAD BOTH BOUTS OF ATRIAL FIBRILLATION AND EPISODES OF BRADYCARDIA AND PAUSES, AT LEAST ONE OF WHICH 3 SECONDS IN DURATION. HER HX IS COMPLICATED BY THE RECENT DX OF BREAST CA, WHICH MAY REQUIRE SURGERY, AND LYMPHOCYTIC LEUKEMIA FOLLOWED BY HEMATOLOGY, W/SIGNIFICANT LEUKOPENIA. SHE TYPICALLY REQUIRES GCSF PRIOR TO PROCEDURES. I HAVE ORDERED AN ECHO AND WILL DISCUSS NO AC W/HER, SHE HAS BEEN RELUCTANT TO TAKE MEDS IN THE PAST. Martina Pugh MD [facility] [place] [address] [facility] [address] [place] [address] Referral ID Status Reason Start Date Expiration Date Visits Requested Visits Authorized [id number] Authorized Consult, Test & Treat PCP Updated and/or Approved 03/02/2025 6 6 Encounter Details Date Type Department Care Team (Latest Contact Info) Description 02/19/2024 9:30 AM EST - 02/19/2024 5:27 PM EST Hospital Encounter [facility]patient [place] [address] Martina Pugh MD [facility] [place] [address] Tachyarrhythmia Discharge Disposition: Home Social History Tobacco Use Types Packs/Day Years Used Date Smoking Tobacco: Never Smokeless Tobacco: Never Comments:never vape Alcohol Use Standard Drinks/Week Comments Yes 4 (1 standard drink = 0.6 oz pur e alcohol) Variable Overall Financial Resource Strain (CARDIA) Answe r Date Recorded How hard is it for you to pa y for the very basics like food, housing, medical care, and heating? Not very hard 12/09/2023 PRAPARE - Transportation Answer Date Re corded In the past 12 months, has l ack of transportation kept you from medical appointments or from getting medications? No 11/11 In the past 12 months, has l ack of transportation kept you from meetings, work, or from getting things needed for daily living? No 12/09/2023 DH IPV Inpatient Questions Answer Date Recorded [...] Sign Reading Time Taken Comments Blood Pressure 101/83 02/19/2024 5:01 PM EST Pulse 112 02/19/2024 5:01 PM EST Temperature 36.5 ??C (97.7 ??F) 02/19/2024 2:52 PM ES T Respiratory Rate 18 02/19/2024 5:13 PM EST Oxygen Saturation 95% 02/19/2024 5:13 PM EST Inhaled Oxygen Concentration - - Weight 67.1 kg (148 lb) 02/19/2024 9:57 AM EST Height 160 cm (5' 3) 02/19/2024 9:57 AM EST Body Mass Index 26.22 02/19/2024 9:57 AM EST documented in this encounter Discharge Instructions * Discharge Instructions* Gissell Sommer RN - 02/19/2024 9:53 AM EST You have an appointment 02/20/24 at 9:00 am with Deo Montanez regarding your new diagnosis of Atrial fibrillation. You received Metoprolol 25 mg tablet at 4:50 pm on 02/19/24 to treat your elevated heart rate. Yourheart rate ranged from 100 to 125 bpm while in the atrial fibrillation at rest. The HR was 100 to 120's bpm while ambulating. Dr. Nolberto Dolan is the anesthesiologist who cared for you at [facility] [phone] or [phone] If you experience chest pain, difficulty breathing, palpitations, or any symptom related to your heart that's concerning, please call 911 or go to your nearest emergency department. At 10:10 am you received 975 mg of acetaminophen- Your next dose should not be taken before 6- 8 hours have passed or as advised by your provider. Next dose not before- 4:10- 6:10pm, depending on timing on your bottle. You should not take more than a total of 3000 mg of acetaminophen in a 24 hour period. You received Ibuprofen/or other nsaid medication at 2:00 pm. Your next dose should not be taken before 8:00 pm today. General Anesthesia Discharge Instructions Go home and rest. You may be sleepy for several hours. Take it easy as sudden position changes may cause nausea and/or dizziness. Use caution on stairs. Do not smoke if you are alone. Follow a light to regular diet as tolerated today. If nausea occurs, start with clear liquids, and progress slowly to a regular diet. Do not drive, operate machinery, drink alcoholic beverages or make any legal decisions after havinggeneral anesthesia. The medications given change your reaction time and alter your judgement. IV site -- slight redness is normal, you can use warm compresses. If tenderness and redness increases or foul drainage occurs, please contact your M.D. Patients who have had endotracheal tubes/LMA (tubes used by the anesthesia staff to ensure a safe airway during your operation) may have a sore throat. This is normal and cold liquids or soothing lozenges will help ease this discomfort. Narcotic pain medications can cause constipation, please ask the surgeons office what they recommend for prevention of this. Some non-pharmaceutical means of constipation prevention include increasing intake of fluids, eating more fruits and vegetables as well as fruit juices. If you are uncomfortable and/or unable to urinate within 8 hours of discharge and it is before 5 pm, call your physician. If it is after 5pm go to the closest emergency room or call the hospital cleaning machine operator at [phone] and ask for physician multifocal button generator covering for your physician. Questions or problems after 5pm or on a weekend: Call the [facility] cleaning machine operator at and ask for the physician multifocal button generator covering for your doctor. * Patient Instructions* Martina Pugh MD - 02/19/2024 2:01 PM EST Discharge Instructions: Wound Care: Your incision is covered with a purple/clear skin adhesive called Exofin. Do not scratch, rub, or pick at the adhesive. Do not wash the incision directly, if you do the film may become loose before the wound is fully healed. The Exofin will fall off on its own within approximately 2 weeks. Do not apply any ointments to the area until after the Exofin has fallen off. Place intermittent ice pack to the breast for 3 days. Wear supportive bra continuously for at least 3 days. Activity: You may shower 24 hours after surgery. Let water run over the incision(s). Do not scrub incision(s)and pat dry. No submerging the breast wound in a bath, pool, or hot tub for 1 month. Activity as tolerated - if it hurts, don't do it Walking is encouraged. No driving the day of surgery Pain Medication: Take Tylenol (acetaminophen) 1000mg 3 or 4 times a day (every 6-8 hours) for the first 3 days aftersurgery for you pain relief. You should NOT consume more than 4000mg (4 grams) of Tylenol in 24 hour period due to risk of liver toxicity. You may start taking over the counter Ibuprofen three times daily with food, alternating this with the Tylenol doses the day after surgery. Diet: Resume usual diet You had episodes of high heart rate before and during your surgery which anesthesia thought was atrial fibrillation. This was not caught on the EKG we did for you, but you should be evaluated by cardiology regarding this. I will place a referral and you should follow up with your PCP as well. Follow up care: Come to your post-operative appointment as scheduled, usually 2 weeks after surgery. If not yet scheduled, please call Dr. Pugh's office to schedule a post-operative appointment. Your pathology will take approximately [address] Pugh will call you with those results once they area available and will review them again at your follow up appointment. Call the surgery clinic at or send a [employer] message for any post-operative concerns, including: excessive bleeding, drainage at the operative site, fevers, chills, increased pain thatis not relieved by pain medications, persistent nausea or vomiting, shortness of breath. After hours and on weekends, please call the paging cleaning machine operator at [phone] and ask for the General Surgery resident multifocal button generator. The clinic and [employer] messages are not covered after hours or on weekends. * Attachments The following attachments cannot be sent through Care Everywhere. * Metoprolol/Hydrochlorothiazide Oral Tablet (METOPROLOL/HYDROCHLOROTHIAZIDE - ORAL) (Rwandan) documented in this encounter Medications at Time of Discharge Medication Sig Dispensed Refills Start Date End Date homeopathic drugs (ARNICA 3X ORAL) Take by mouth as needed. acetaminophen (Tylenol) 500 mg tablet Take 2 tablets by mouth every 6 hours as needed for Pain. 02/19/2024 ibuprofen (Advil) 600 mg tablet Take 1 tablet by mouth every 6 hours as needed for Pain. 02/19/2024 UNABLE TO FIND Digestive enzymes UNABLE TO FIND 134 mg 3 times daily. Drenatrophin pmg UNABLE TO FIND 227 mg. Eleuthroel DGL magnesium 250 mg Tablet Take by mouth. 360mg daily selenium 50 mcg Tablet Take 200 mcg by mouth. zinc sulfate (ZINC-220 ORAL) Take by mouth. 15 mg cholecalciferol, vitamin D3, (VITAMIN D3 ORAL) Take 4,000 Units by mouth daily. ascorbic acid, Vitamin C, (Vitamin C) 500 mg Tablet Take 400 mg by mouth 2 times daily. documented as of this encounter Progress Notes * Gissell Sommer RN - 02/19/2024 5:27 PM EST Discharge instructions and medications reviewed with patient and spouse Tamir. All questions answered and written copy sent home with patient. Patient and spouse in agreement to go home this evening and follow up with PCP in am. Primary care provider contacted and an appointment was made on behalf of Leti to be seen by Deo Montanez at 9:00 am on 02/20/24. Pt reports having experienced episodes of a racing heart when lying down for bed at night for the past few weeks. Found to be in atrial fibrillation on EKG after her surgery. See VS flowsheet and MAR for care. Asymptomatic of atrial fibrillation while at [facility], Dr. Dolan was at bedside to evaluate. Phone call by this RN with PCP office nurse and provider, verbal agreement from the PCP's office to give PO metoprolol here with monitoring afterwards by staff, ordered by Dr. Dolan. Patient and spouse educated on medication and commonside effects. Patient ambulated to car for discharge accompanied by [facility] staff member. Denied chest pain, SOB, dizziness, feelings of palpitations while in post-op area at rest and with activity. AVS and EKG faxed to PCP's office at request of PCP. documented in this encounter H&P Notes * Martina Pugh MD - 02/19/2024 11:22 AM EST Breast Surgical Oncology H&P Patient Name: Leti Parry Patient Age: 73 y.o. Birthdate: 1950 Admit date: 02/19/2024 Attending Physician: Martina Pugh MD HISTORY OF PRESENT ILLNESS: Leti is a 73 y.o. female who presents today for a comprehensive breastclinic consultation regarding newly diagnosed right breast cancer. On 07/23 bilateral screening mammogram showed a 4cm area of segmental fine pleomorphic microcalcifications in the upper outer right breast at 10:00 6cm FN without associated mass or architectural distortion. Left breast showed no suspicious findings. Right diagnostic mammogram confirmed the above findings and no abnormality was seen on right breast ultrasound. On 12/03 right breast stereotactic biopsy of the calcifications showed ductal carcinoma in situ, high grade, ER+ (>90%, strong). Infinity clip was placed and noted to be at the expected location on post-procedure mammogram. On 12/23 breast MRI showed the biopsy clip in the right posterolateral breast with irregular clumped NME surrounding the clip anteiror, posterior, medial and superior with additional NME extending further anteriorly, total extent 6 x 3.6 x 2cm, larger than the extent of calcifications. No adenopathy. If breast conservation is considered, biopsy of the anterior extent of the NME is recommended. 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 Per notes, she will need G-CSF with any procedures/surgeries. Also with chronic leukopenia and ulcerative colitis though has limited symptoms and is not on any active treatment. She denies other breast symptoms of masses, skin changes, nipple discharge, or adenopathy. She alsodenies any new constitutional symptoms of fatigue, weight loss, fever, or headache. No blurry vision, abdominal pain or deep bone or joint pain. Past Medical History: Ulcerative Colitis Pulmonary HTN? Large grandular lymphocytic leukemia - currently no treatment Chronic Leukopenia - GCSF with procedures/surgeries H/o hepatic abscess s/p aspiration Past Surgical History Past Surgical History: Procedure Laterality Date CT ASPIRATION LIVER 09/02/2019 CT Guided Aspiration Liver 09/02/2019 [facility] RAD CAT SCAN IR DRAIN CHECK/CHANGE/REMOVE 09/28/2019 IR Drain Check/Change/Remove 09/28/2019 Cliff Langston MD [facility] INTERVENTIONL RAD MAMMO STEREOTACTIC BIOPSY RIGHT N/A 12/04/2023 Mammo Stereotactic Biopsy Right 12/04/2023 Tamir Fletcher MD [facility] RAD MAMMOGRAPHY PRO BONE MARROW ASPIRATION W/BX THROUGH SAME INCISION/SITE Right 01/08/2017 ([facility]) BONE MARROW ASP PERFORMED W/BX THRU BX INCISION (WRVU 0.16) performed by Lee Ann Jay MD at [facility] PRO COLONOSCOPY, BIOPSY 07/05/2011 COLONOSCOPY FLEXIBLE, WITH BX performed by AYAZ CASTRO at [facility] ENDOSCOPY PRO COLONOSCOPY, BIOPSY N/A 10/22/2019 COLONOSCOPY FLEXIBLE, WITH BX (WRVU 3.66) performed by Yola Oliveros MD at [facility] ENDOSCOPY PRO COLONOSCOPY, BIOPSY N/A 04/12/2022 COLONOSCOPY FLEXIBLE, WITH BX (WRVU 3.66) performed by Yola Oliveros MD at [facility] ENDOSCOPY PRO COLONOSCOPY, REMV LESN, SNARE 07/05/2011 COLONOSCOPY, POLYPECTOMY, REMOVAL LESION BY SNARE performed by AYAZ CASTRO at [facility] ENDOSCOPY PRO COLONOSCOPY, REMV LESN, SNARE N/A 04/12/2022 COLONOSCOPY, POLYPECTOMY, REMOVAL LESION BY SNARE (WRVU 4.67) performed by Yola Oliveros MD at [facility] ENDOSCOPY PRO DIAGNOSTIC BONE MARROW BIOPSIES Right 01/08/2017 ([facility]) BONE MARROW,BIOPSY (WRVU 1.37) performed by Lee Ann Jay MD at [facility] PRO SIGMOIDOSCOPY, DIAGNOSTIC N/A 09/02/2019 FLEXIBLE SIGMOIDOSCOPY performed by Ayaz Castro MD at [facility] ENDOSCOPY MEDICATIONS: UNABLE TO FIND, ascorbic acid (Vitamin C), cholecalciferol (vitamin D3), magnesium, selenium, and zinc sulfate Allergies Allergies Allergen Reactions Stevia [Stevioside (Bulk)] Diarrhea Intolerance with Artificial Sugars - Diarrhea. Benzalkonium Chloride Gluten Family History Family History Problem Relation Age of Onset Breast Cancer Neg Hx Ovarian Cancer Neg Hx Social History Social History Tobacco Use Smoking status: Never Smokeless tobacco: Never Tobacco comments: never vape Vaping Use Vaping status: Never Used Substance Use Topics Alcohol use: Yes Alcohol/week: 4.0 standard drinks of alcohol Types: 4 Shots of liquor per week Drug use: No Age of menarche: unknnown Age of menopause: 54 /Para: Age of first live : 27 OCP use: limited time HRT use: no, but has used vaginal estrogen for a month Prior breast biopsies: none prior REVIEW OF SYSTEMS: Relevant positive review of systems as above, remainder of a 14-point review of systems negative. Vitals Patient Vitals for the past 24 hrs: Temp Heart Rate From SP02 Resp BP SpO2 O2 Device 02/19/24 1000 36.2 ??C (97.2 ??F) 71 bpm 18 112/78 95 % RA PHYSICAL EXAM: General: well appearing, alert and oriented x 3. No acute distress. Breast exam: A multi-positional bilateral breast exam was performed. There is no skin dimpling or nipple retraction. Right breast: no palpable dominant masses, no nipple discharge, no skin changes. Right axilla: no palpable adenopathy. Left breast: no palpable dominant masses, no nipple discharge, no skin changes. Left axilla: no palpable adenopathy. IMAGING: I personally reviewed the following radiology image(s) and report(s) in detail as part of today's consultation --DH READ OF OUTSIDE IMAGING -- DATES and TYPE OF EXAM: Bilateral screening mammograms July 24, 2023 with additional magnification views of the RIGHT breastand RIGHT breast ultrasound VIEWS: Bilateral CC, bilateral MLO, RIGHT mag CC, RIGHT mag MLO COMPARISONS: Multiple priors BREAST DENSITY: The breasts are heterogeneously dense, which may obscure small masses FINDINGS: LEFT breast: Normal and unchanged RIGHT breast: There are 4 cm of segmental fine pleomorphic microcalcifications the upper outer quadrant of the RIGHT breast with no associated mass or architectural distortion. Ultrasound of this area showed no significant abnormality. DIAGNOSTIC SUMMARY: RIGHT BREAST LESION #1 4 cm Microcalcifications Upper Outer Quadrant 10 OClock 6 cm from the nipple INTERPRETATION: BI-RADS 4. Suspicious for malignancy MANAGEMENT: Stereotactic RIGHT breast biopsy which will be scheduled ------ Right breast stereotactic biopsy 12/04/23: CLINICAL HISTORY: abnormal finding 4 cm calcifications Right 10 O'Clock, posterior PROCEDURAL DETAILS: Informed consent was obtained and a time out procedure was performed per protocol. The patient gave permission to proceed. Using sterile technique and local anesthetic (less than 20cc's of 1% lidocaine) a biopsy was performed using tomographic guidance. Multiple core biopsy specimens were obtained using a 9g vacuum assist device. 6 core biopsy specimens were obtained using a [employer] 9g device. Biopsy specimens were radiographed. The abnormality was present on the specimen digital radiograph. A Infinity marker clip was placed. Cranio-caudal and lateral digital mammography was performed to determine biopsy marker placement. The marker was shown to be at the expected location. COMPLICATIONS: None. PATHOLOGIC DIAGNOSIS: Pending IMPRESSION: Pending result RECOMMENDATION: Pending --------ADDENDUM #1-------- PATHOLOGIC DIAGNOSIS: - Ductal carcinoma in-situ, high grade IMPRESSION: Concordant results RECOMMENDATION: Refer to the Comprehensive Breast Program as relayed to the patient by Samina Tate RN. Breast MRI 12/24/23 FINDINGS: Background Enhancement Pattern (first post Dotarem image): Minimal Amount of Fibroglandular Tissue:The breast tissue is heterogeneously dense, which may obscure small masses. LEFT Breast: There is an approximately 1.1 x 1.0 x 0.3 cm oblong, enhancing mass in the lateral, slightly upper breast (axial series 13, image 71; sagittal series image 43), with persistent enhancement kinetics and no T2 signal. The appearance is suggestive of failure benign entity such as fibroadenoma. Incidental note is made of multiple nondilated high T1 signal ducts in the retroareolar region likely representing proteinaceous material. RIGHT Breast: susceptibility artifact from the postbiopsy clip in the right posterolateral breast is best seen on axial image 81; sagittal image 161 there is irregular clumped nonmass enhancement surrounding the anterior posterior medial and superior aspect of this susceptibility artifact with wispy and noncontiguous clumps of enhancement extending further anteriorly. Overall, the area of NME extends approximately 6 cm AP by 3.6 cm CC by 2 cm transversely. This area is larger than the extent ofcalcifications seen on mammography, and may represent noncalcified DCIS.. Lymph Node Basins/Other: There is no evidence of internal mammary or axillary adenopathy. No significant abnormalities are seen in the chest wall or skin. IMPRESSION Left breast: Approximately 1 cm enhancing mass in the upper outer quadrant. Recommend MR directed ultrasound to find a correlate for possible biopsy. If ultrasound is negative, MR guided biopsy wouldbe recommended. Right breast: Known right breast malignancy is associated with nonmass enhancement extending 6 x 3.6 x 2 cm. If breast conservation is pursued, an additional biopsy of the most anterior area of NME can be performed with MRI guidance. RECOMMENDATION: Left breast: MR directed ultrasound. Management of a possible mass can be based on sonographic features. If no correlate is found, recommend MR guided biopsy. Right breast: Known area of DCIS appears more extensive. See impression above FINAL ASSESSMENT: LEFT BREAST: BI-RADS Category 4a: Suspicious Finding - Biopsy Should Be Considered. Low suspicion of malignancy (more than 2% but no more than 10%) RIGHT BREAST: BI-RADS Category 6: Known Biopsy-Proven Malignancy PATHOLOGY: I personally reviewed the following pathology report(s) in detail as part of today's consultation Final Diagnosis Right breast, core needle biopsy: - Ductal carcinoma in-situ, high grade, solid and papillary patterns with comedonecrosis and microcalcifications. Estrogen Receptor (ER) immunoreactivity: Positive Cancer cells with immunostaining: >90% Stain intensity: Strong Final Diagnosis A- Left breast, core needle biopsy: - Benign breast tissue with apocrine metaplasia and focal fibrotic stroma. - Microcalcifications associated with benign ductal epithelium. 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 ASSESSMENT/PLAN: Leti is a 73 y.o. woman with right DCIS, HG, ER+ (4cm calcs, 6x4cm NME by MR) clinically node negative here for right partial mastectomy (wire bracketed) and right breast Magtrace injection for possible delayed SLNB should invasive cancer be found on her final pathology given the large area of high grade DCIS and upper outer location. Discussed the fact that with a good portion of the upper outer breast removed, the lymphatic channels would likely be disrupted so subsequent SLNB may be difficult. She did not want them removed today so will inject magtrace for delayed procedure if need based on final pathology. The procedure along with the risks, benefits, and alternatives were reviewed andall questions were answered. Informed consent was obtained. Patient is ready for the OR. Martina Pugh MD 02/19/2024 documented in this encounter Miscellaneous Notes * Op Note - Martina Pugh MD - 02/19/2024 12:34 PM EST [facility] Operative Note Patient Name: Leti Parry : [id number] MR#: [id number] Case Date: 02/19/2024 Surgeon: Surgeons and Role: * Martina Pugh MD - Primary * Jah Yanez MD - Resident - Assisting Preoperative diagnosis: BREAST CANCER Postoperative diagnosis: * No post-op diagnosis entered * Procedure(s) (LRB): MASTECTOMY PARTIAL (WRVU 10.13) (Right) BIOPSY OR EXCISION OF LYMPH NODE(S), OPEN, DEEP AXILLARY NODE(S) (WRVU 6.43) (Right) INTRAOPERATIVE ID (MAPPING) SENTINEL LYMPH NODE,INCLUDES INJECTION (WRVU 2.5) (Right) MODIFIER WITH NEEDLE LOC., LESION #1 (Right) Anesthesia: General Estimated Blood Loss: Specimens removed during surgery: ID Type Source Tests Collected by Time Destination 1 : Right partial Mastectomy Tissue Breast, Right SURGICAL PATHOLOGY Martina Pugh MD 02/19/2024 1308 2 : Right posterior margin Tissue Breast, Right SURGICAL PATHOLOGY Martina Pugh MD 02/19/2024 1317 3 : Right Superior margin Tissue Breast, Right SURGICAL PATHOLOGY Martina Pugh MD 02/19/2024 1319 4 : Right Inferior margin Tissue Breast, Right SURGICAL PATHOLOGY Martina Pugh MD 02/19/2024 1319 5 : Right Anterior margin Tissue Breast, Right SURGICAL PATHOLOGY Martina Pugh MD 02/19/2024 1329 Drains: Drain/Device Site 09/02/19 1257 Right posterior chest (Active) Surgical Closure: Primary Closure - skin incision is completely closed without any wires, ruddy, drains or other devices Disposition: awakened from anesthesia, extubated and taken to the recovery room in a stable condition, having suffered no apparent untoward event. Condition: doing well without problems (Please see the Surgical Encounter Summary for any Implant and Specimen details pertinent to this patient.) HPI/Surgical Indications: Leti Parry is a 73 yo woman who came to the Breast Clinic for evaluation of right high grade DCISin the outer central breast. Decision was made to proceed with partial mastectomy with wire bracketlocalization. Given the large are of upper outer breast being excised we discussed proceeding with SLNB at the initial surgery in case invasive cancer is seen on final pathology vs just injecting themagtrace for possibility of delayed SLNB if needed. Patient elected to proceed with Matrace injection alone. The patient understands that additional surgery may be required pending final pathology. The procedure along with the risks, benefits, and alternatives were reviewed and all questions were answered. Informed consent was obtained and patient agreed to proceed. Description: On the operative day, the patient went to mammography for wire bracket localization of the area of concern in the right outer central breast. She was then brought to the preoperative holding area, where consent and side of surgery were reconfirmed. The patient was then brought to the operating roomand placed supine on the operating room table. General anesthesia was induced and LMA was placed. 2ml of Magtrace was injected into the right subareolar breast for delayed SLNB if needed. Patient's right breast was then prepped and draped in the usual sterile fashion. A time out was performed wherethe correct patient, procedure, site, preoperative antibiotics, and DVT prophylaxis were confirmed a nd all present agreed to proceed. Prior to making an incision, I studied the accompanying wire localization films to plan the surgical incision appropriately. Local anesthetic was used at the planned incision site as a radial incision in the upper outer breast. A #15 blade was then used to make skin incision which was carried down sharply through to the subcutaneous tissue. Bovie electrocautery was then used to dissect a flap circumferentially toward the wires. Once each wire was encountered within the wound it was grasped with a tonsil and the wires were brought into the wound. Bovie electrocautery was then used to divide the tissue surrounding the localized span of calcifications. This formed the partial mastectomy specimen. The specimen was inked for orientation and sent for specimen radiograph. Specimen radiograph confirmed successful excision of area of concern with the clips, span of calcifications and wires within the specimen as reviewed with radiology intraoperatively. An additional posterior (including pectoralis fascia and down to serratus), superior, inferior and anterior margin were taken with sharp electrocautery and was inkedon the new margin side. Each margin was sent as separate specimen. The breast wound inspected and hemostasis was achieved using Bovie electrocautery. Additional localanesthetic was instilled into the skin and subcutaneous layers of the wound. After hemostasis was confirmed, the cavity was marked with hemoclips. Parenchymal flaps were made superiorly and inferiorly to pull together over the partial mastectomy defect which measured approximately 7 x 5cm. The incision was then closed in layers using interrupted 3-0 vicryl suture to reapproximate deeper breast tissue over the defect, reshaping the breast, interrupted 3-0 vicryl suture to reapproximate deep dermis, and running 4-0 monocryl subcuticular suture to reapproximate the skin. Exofin was applied to the incision after closure. Fluffs and surgical bra were placed. The patient tolerated the procedure well and without complication. She was noted to have episodes of tachycardia and hypotension managed by anesthesia. She was awaken from anesthesia, extubated, and taken back to recovery in stable condition having suffered no adverse events throughout the entiretyof the procedure. All counts were correct at the end of the procedure. Pursuant to [facility] regulations, I attest that I was personally present and scrubbed for all the chaparro elements of this procedure. Surgical Infection Prevention Bundle Used? N/A Attestation: Case Date: 02/19/2024 I was present and I participated during the entire procedure (does not need to include opening and closing). Martina Pugh MD 02/19/2024 documented in this encounter Plan of Treatment Upcoming Encounters Date Type Department Care Team (Late st Contact Info) Description 04/17/2024 2:30 PM EST Scheduled View Only Radiation Oncology at [address] [address] 04/20/2024 12:45 PM EST Scheduled View Only Radiation Oncology at [address] [phone] 04/21/2024 10:45 AM EST Scheduled View Only Radiation Oncology at [address] [address] 04/21/2024 11:00 AM EST Office Visit Radiation Oncology at [address] [address] Radha Casiano MD [facility] [place] [address] 04/22/2024 3:00 PM EST Scheduled View Only Radiation Oncology at [address] [address] 04/23/2024 3:00 PM EST Scheduled View Only Radiation Oncology at [address] [phone] 04/24/2024 3:00 PM EST Scheduled View Only Radiation Oncology at [address] [address] 04/27/2024 11:15 AM EST Scheduled View Only Radiation Oncology at [address] [address] 04/28/2024 11:30 AM EST Scheduled View Only Radiation Oncology at [address] [phone] 04/28/2024 12:00 PM EST Office Visit Radiation Oncology at [address] [address] Radha Casiano MD [facility] [place] [address] 04/28/2024 2:00 PM EST Office Visit Cardiology at [address] [address] Letty Montejo APRN [facility] [place] [address] 04/29/2024 11:15 AM EST Scheduled View Only Radiation Oncology at [address] [address] 04/30/2024 11:30 AM EST Scheduled View Only Radiation Oncology at [address] [phone] 05/01/2024 11:15 AM EST Scheduled View Only Radiation Oncology at [address] [phone] 05/04/2024 10:45 AM EST Scheduled View Only Radiation Oncology at [address] [address] 05/05/2024 1:00 PM EST Scheduled View Only Radiation Oncology at [address] [address] 05/05/2024 1:15 PM EST Office Visit Radiation Oncology at [address] [address] Radha Casiano MD [facility] [place] [address] 05/06/2024 1:00 PM EST Scheduled View Only Radiation Oncology at [address] [phone] 05/07/2024 1:00 PM EST Scheduled View Only Radiation Oncology at [address] [address] 05/08/2024 1:00 PM EST Scheduled View Only Radiation Oncology at [address] [address] 05/11/2024 11:30 AM EST Scheduled View Only Radiation Oncology at [address] [address] 01/13/2025 1:00 PM EST Office Visit Hematology/Oncology at [address] [phone] Lee Ann Jay MD [facility] [place] [address] Leti Anderson APRN [facility] [place] [address] Scheduled Referrals Name Type Priority Associated Diagnoses Order Schedule Referral to Cardiology Outpatient Referral Urgent Tachyarrhythmia Ordered: 02/19/2024 documented as of this encounter Procedures Procedure Name Priority Date/Time Associated Diagnosis Comments SURGICAL PATHOLOGY Routine 02/19/2024 1: 08 PM EST MODIFIER WITH NEEDLE LOC., LESION #1 02/19/2024 12:07 PM EST BREAST CANCER Intraop [place] Lymph Id W/Dye Injection (65259) 02/19/2024 12:07 PM EST BREAST CANCER Mastectomy Partial (75601) 02/19/2024 12:07 PM EST BREAST CANCER documented in this encounter Results * EKG 12 Lead (02/19/2024 4:28 PM EST) Ventricular rate 114 BPM MUSE SYSTEM Atrial Rate 192 BPM MUSE SYSTEM QRS Duration 84 ms MUSE SYSTEM Q-T Interval 346 ms MUSE SYSTEM QTC Calculated (Bezet) 476 ms MUSE SYSTEM Calculated R [place] -28 degrees MUSE SYSTEM Calculated T [place] -66 degrees MUSE SYSTEM INTERPRETATION Atrial fibrillation [...] Pugh MD ECG ORDERABLES MUSE SYSTEM * Surgical Pathology (02/19/2024 1:08 PM EST) Case Report Surgical Pathology Report ? Case: [id number] ? Authorizing Provider: ??Martina Pugh MD ?? Collected: ? 02/19/2024 1308 ? Ordering Location: ? [facility] ??Received: ?02/19/2024 1348 ? [facility] ? Pathologist: ? Ana Damon, DO ? Specimens: ?? A) - Breast, Right, Right partial Mastectomy ? B) - Breast, Right, Margin, Right posterior margin ? C) - Breast, Right, Margin, Right Superior margin ? D) - Breast, Right, Margin, Right Inferior margin ? E) - Breast, Right, Margin, Right Anterior margin ? 02/27/2024 4:13 PM [facility] Final Diagnosis A. Breast, right, partial [...] - Benign breast tissue. 02/27/2024 4:13 PM [facility] Synoptic Report DCIS OF THE BREAST: [...] nodes submitted or found) 02/27/2024 4:13 PM [facility] Clinical Information A. Breast, Right, Right partial Mastectomy *Other - as specified in Clinical Information Right Breast Cancer 02/27/2024 4:13 PM [facility] Gross Description A. Breast, Right, Right [...] tissue 30%, adipose tissue 70% Sections/Processi ng: Grinder Hardboard sections in 23 cassettes as follows: A1-A3: [...] 3 cassettes labeled E1-E3. 02/27/2024 4:13 PM EST [facility] Result Note Routine 02/27/2024 4:13 PM EST [facility] Tissue RIGHT BREAST STRUCTURE [...] Cancer Martina Pugh MD PATHOLOGY/CYTOLOG Y ORDERABLES [facility] [place] [address] documented in this encounter Visit Diagnoses Diagnosis Tachyarrhythmia Tachycardia, unspecified documented in this encounter Administered Medications Inactive Administered Medications - up to 3 most recent administrations Medication Order MAR Action Action Date Dose Rate Site acetaminophen (Tylenol) tablet 975 mg 975 mg, Oral, ONCE, 1 dose, On Sat02/19/24 at 1015, Maximum dose of acetaminophen is 4,000 mg from all sources in 24 hours. When ordered for pain, acetaminophen should be given even when other ordered pain medications are indicated. , Routine Given 02/19/2024 10:08 AM EST 975 mg aprepitant (Emend) capsule 40 mg 40 mg, Oral, ONCE, 1 dose, On Sat02/19/24 at 1015, Routine Given 02/19/2024 10:08 AM EST 40 mg metoprolol tartrate (Lopressor) 50 mg tablet 1 dose, Starting on Sat02/19/24 at 1636, Until Sat02/19/24 at 1644, Gissell Sommer (SSO): cabinet override metoproloL tartrate (Lopressor) tablet 25 mg 25 mg, Oral, ONCE, 1 dose, On Sat02/19/24 at 1730, Routine Given 02/19/2024 5:01 PM EST 25 mg documented in this encounter Active and Recently Administered Medications Times are shown in EST. Scheduled Medication Order 02/17/2024 02/18/2024 02/19/2024 acetaminophen (Tylenol) tablet 975 mg (COMPLETED) 975 mg, Oral, ONCE, 1 dose, On Sat02/19/24 at 1015, Maximum dose of acetaminophen is 4,000 mg from all sources in 24 hours. When ordered for pain, acetaminophen should be given even when other ordered pain medications are indicated. , Routine 1008 (Given - Provid er: Latanya Wilde RN) aprepitant (Emend) capsule 40 mg (COMPLETED) 40 mg, Oral, ONCE, 1 dose, On Sat02/19/24 at 1015, Routine 1008 (Given - Provid er: Latanya Wilde RN) ceFAZolin (Ancef) (100 mg/mL) injection solution 2 g (COMPLETED) 2 g, Intravenous, ONCE, 1 dose, On Sat02/19/24 at 0630, To be prepared by and administered by Anesthesia. Reconstitute each ceFAZolin 1 gram vial with 10 mL of NS or SWFI = 100 mg/mL May inject IV without further dilution over 3 to 5 minutes., Indication for (Active or Suspected): Prophylaxis 1215 (New Bag - Prov ider: Orlando Urrutia, COPIER AND PRINTER FIELD TECHNICIAN) metoproloL tartrate (Lopressor) tablet 25 mg (COMPLETED) 25 mg, Oral, ONCE, 1 dose, On Sat02/19/24 at 1730, Routine 1701 (Given - Provid er: Gissell Sommer RN) PRN Medication Order 02/17/2024 02/18/2024 02/19/2024 BUPivacaine (pf) (Marcaine) (5 mg/mL) 0.5% injection (CANCELED) PRN, Starting on Sat02/19/24 at 1341, Until Sat02/19/24 at 1948, Intra-Operative (Intra-Procedure), Routine 1341 (Given - Provid er: Martina Pugh MD - Comment: Given to sterile field) lidocaine (pf) (Xylocaine) (10 mg/mL) 1% injection (CANCELED) PRN, Starting on Sat02/19/24 at 1341, Until Sat02/19/24 at 1948, Intra-Operative (Intra-Procedure), Routine 1341 (Given - Provid er: Martina Pugh MD - Comment: Given to sterile field) No Frequency Medication Order 02/17/2024 02/18/2024 02/19/2024 magesium sulfate in dextrose infusion 1 gram/100 mL infusion 1 dose, Starting on Sat02/19/24 at 1356, Until Sat02/19/24 at 1948, Ana Camilo.: cabinet override 1400 (Due) documented in this encounter Care Teams Senior Java [email or web address] Developer Relationship Specialty Start Date End Date Julia Chatterjee MD [address] [place] [address] PCP - General 01/31/10 documented as of this encounter
--- OUTSIDE RECORDS SUMMARY | 2024-04-17 01:20 | XMS_ITS | Encounter Summary ---
Author Organization Formerly [facility], 1928–1983 Address [facility] [place] [address] Care Team Providers Care Director Perioperative Name Role Phone Julia Chatterjee MD Primary Care Provider [phone] Encounter Details Date Type Department Care Team (Latest Contact Info) Description 02/19/2024 8:23 AM [facility] Hospital [place] [address] Martina Pugh MD [facility] [place] [address] Malignant neoplasm of right female breast, unspecified estrogen receptor status, unspecified site of breast; Tachyarrhythmia Discharge Disposition: Home Social History Tobacco [...] things needed for daily living? No 12/09/2023 [facility] Inpatient Questions Answer Date Recorded Does Anyone [...] times daily. documented as of this encounter Plan of Treatment Upcoming Encounters Date Type Department Care Team (Late st Contact Info) Description 04/17/2024 2:30 PM EST Scheduled View Only Radiation Oncology at [address] [phone] 04/20/2024 12:45 PM EST Scheduled View Only Radiation Oncology at [address] [address] 04/21/2024 10:45 AM EST Scheduled View Only Radiation Oncology at [address] [phone] 04/21/2024 11:00 AM EST Office Visit Radiation Oncology at [address] [address] Radha Casiano MD [facility] [place] [address] 04/22/2024 3:00 PM EST Scheduled View Only Radiation Oncology at [address] [phone] 04/23/2024 3:00 PM EST Scheduled View Only Radiation Oncology at [address] [address] 04/24/2024 3:00 PM EST Scheduled View Only Radiation Oncology at [address] [address] 04/27/2024 11:15 AM EST Scheduled View Only Radiation Oncology at [address] [address] 04/28/2024 11:30 AM EST Scheduled View Only Radiation Oncology at [address] [address] 04/28/2024 12:00 PM EST Office Visit Radiation Oncology at [address] [address] Radha Casiano MD [facility] [place] [address] 04/28/2024 2:00 PM EST Office Visit Cardiology at [address] [phone] Letty Montejo APRN [facility] [place] [address] 04/29/2024 11:15 AM EST Scheduled View Only Radiation Oncology at [address] [address] 04/30/2024 11:30 AM EST Scheduled View Only Radiation Oncology at [address] [address] 05/01/2024 11:15 AM EST Scheduled View Only Radiation Oncology at [address] [address] 05/04/2024 10:45 AM EST Scheduled View Only Radiation Oncology at [address] [address] 05/05/2024 1:00 PM EST Scheduled View Only Radiation Oncology at [address] [address] 05/05/2024 1:15 PM EST Office Visit Radiation Oncology at [address] [address] Radha Casiano MD [facility] [place] [address] 05/06/2024 1:00 PM EST Scheduled View Only Radiation Oncology at [address] [phone] 05/07/2024 1:00 PM EST Scheduled View Only Radiation Oncology at [address] [phone] 05/08/2024 1:00 PM EST Scheduled View Only Radiation Oncology at [address] [phone] 05/11/2024 11:30 AM EST Scheduled View Only Radiation Oncology at [address] [phone] 01/13/2025 1:00 PM EST Office Visit Hematology/Oncology at [address] [phone] Lee Ann Jay MD [facility] [place] [address] Leti Anderson APRN [facility] HEMATOLOGY [place] [address] documented as of this encounter Procedures Procedure Name Priority Date/Time Associated Diagnosis Comments EKG 12-LEAD STAT 02/19/2024 4:28 PM EST Tachyarrhythmia MAMMO NEEDLE LOCALIZATION RIGHT Routine 02/19/2024 9:20 AM EST Malignant neoplasm of right female breast, unspecified estrogen receptor status, unspecified site of breast documented in this encounter Results * EKG 12 Lead (02/19/2024 4:28 PM EST) Ventricular rate 114 BPM MUSE SYSTEM Atrial Rate 192 BPM MUSE SYSTEM QRS Duration 84 ms MUSE SYSTEM Q-T Interval 346 ms MUSE SYSTEM QTC Calculated (Bezet) 476 ms MUSE SYSTEM Calculated R [place] -28 degrees MUSE SYSTEM Calculated T [place] -66 degrees MUSE SYSTEM INTERPRETATION Atrial fibrillation [...] MD ECG ORDERABLES MUSE SYSTEM * Mammo Needle Localization Right (02/19/2024 9:20 AM EST) WORKSTATION ID [id number] 1 DH RAD Anatomical Region Laterality Modality Breast Right [...] who have questions please contact the health healthcare management that requested your imaging first. ? [facility] [address] [place], [place] [id number] Narrative 02/19/2024 9:38 AM EST EXAMINATION: MAMMO [...] patients who have questions please contactthe health healthcare management that requested your imaging first. [facility] [place] [address] [address] Martina Pugh MD IMG MAMMO ORDERAB LES documented in this encounter Visit Diagnoses Diagnosis Malignant neoplasm of right female breast, unspecified estrogen receptor status, unspecified site of breast Tachyarrhythmia Tachycardia, unspecified documented in this encounter Administered Medications Inactive Administered Medications - up to 3 most recent administrations Medication Order MAR Action Action Date Dose Rate Site lidocaine (Xylocaine) 1% (10 mg/mL) injection 0-200 mg 0-200 mg (0-20 mL), Subcutaneous, ONCE, 1 dose, On Sat02/19/24 at 0915, Radiology Protocol Medication, Routine Given 02/19/2024 9:06 AM EST 20 mg documented in this encounter Care Teams Director Perioperative Relationship Specialty Start Date End Date Julia Chatterjee MD S[address] [place] [address] PCP - General 01/31/10 documented as of this encounter
--- OUTSIDE RECORDS SUMMARY | 2024-04-17 01:20 | XMS_ITS | Encounter Summary ---
Author Organization [facility] Address [facility] [place] [address] Care Team Providers Care Head Grower Name Role Phone Julia Chatterjee MD Primary Care Provider [phone] Encounter Details Date Type Department Care Team (Latest Contact Info) Description 02/19/2024 Travel Social History Tobacco Use Types Packs/Day [...] things needed for daily living? No 12/09/2023 [facility] Inpatient Questions Answer Date Recorded Does [...] Department Care Team (Late Contact Info) Description 04/17/2024 2:30 PM EST Scheduled View Only Radiation Oncology at [address] [phone] 04/20/2024 12:45 PM EST Scheduled View Only Radiation Oncology at [address] [address] 04/21/2024 10:45 AM EST Scheduled View Only Radiation Oncology at [address] [address] 04/21/2024 11:00 AM EST Office Visit Radiation Oncology at [address] [address] Radha Casiano MD [facility] [place] [address] 04/22/2024 3:00 PM EST Scheduled View Only Radiation Oncology at [address] [phone] 04/23/2024 3:00 PM EST Scheduled View Only Radiation Oncology at [address] [address] 04/24/2024 3:00 PM EST Scheduled View Only Radiation Oncology at [address] [address] 04/27/2024 11:15 AM EST Scheduled View Only Radiation Oncology at [address] [address] 04/28/2024 11:30 AM EST Scheduled View Only Radiation Oncology at [address] [phone] 04/28/2024 12:00 PM EST Office Visit Radiation Oncology at [address] [address] Radha Casiano MD [facility] [place] [address] 04/28/2024 2:00 PM EST Office Visit Cardiology at [address] [place] [address] Letty Montejo APRN [facility] [place] [address] 04/29/2024 11:15 AM EST Scheduled View Only Radiation Oncology at [address] [address] 04/30/2024 11:30 AM EST Scheduled View Only Radiation Oncology at [address] [address] 05/01/2024 11:15 AM EST Scheduled View Only Radiation Oncology at [address] [address] 05/04/2024 10:45 AM EST Scheduled View Only Radiation Oncology at [address] [address] 05/05/2024 1:00 PM EST Scheduled View Only Radiation Oncology at [address] [address] 05/05/2024 1:15 PM EST Office Visit Radiation Oncology at [address] [address] Radha Casiano MD [facility] [place] [address] 05/06/2024 1:00 PM EST Scheduled View Only Radiation Oncology at [address] [address] 05/07/2024 1:00 PM EST Scheduled View Only Radiation Oncology at [address] [address] 05/08/2024 1:00 PM EST Scheduled View Only Radiation Oncology at [address] [address] 05/11/2024 11:30 AM EST Scheduled View Only Radiation Oncology at [address] [phone] 01/13/2025 1:00 PM EST Office Visit Hematology/Oncology at [address] [phone] Lee Ann Jay MD [facility] DR [place] [address] Leti Anderson APRN [facility] [place] [address] documented as of this encounter Visit Diagnoses Not on filedocumented in this encounter Care Teams Head Grower Relationship Specialty Start Date End Date Julia Chatterjee MD [facility] KINA [address] [place] [address] PCP - General 01/31/10 documented as of this encounter
--- OUTSIDE RECORDS SUMMARY | 2024-04-17 01:20 | XMS_ITS | Encounter Summary ---
Author Organization [facility] Address [facility] [address] Care Team Providers Care Call Center Supervisor Name Role Phone Julia Chatterjee MD Primary Care Provider [phone] Encounter Details Date Type Department Care Team (Late st Contact Info) Description 03/19/2024 Telephone [place] [address] Rosa M Osborne Social History Tobacco Use Types Packs/Day Years [...] from your doctor or pharmacy? Never 03/16/2024 [facility] Utilities Answer Date Recorded In the past 12 months has e [employer], gas, oil, or water [employer] threatened to shut off services in your [...] any time in the past 12 m [facility], were you homeless or living in a half-way (including now)? No 03/16/2024 [facility] Inpatient [...] EST Scheduled View Only Radiation Oncology at [address] [phone] 04/20/2024 12:45 PM EST Scheduled View Only Radiation Oncology at [address] [phone] 04/21/2024 10:45 AM EST Scheduled View Only Radiation Oncology at [address] [phone] 04/21/2024 11:00 AM EST Office Visit Radiation Oncology at [address] [address] Radha Casiano MD [facility] RADIATION [place] [address] 04/22/2024 3:00 PM EST Scheduled View Only Radiation Oncology at [address] [address] 04/23/2024 3:00 PM EST Scheduled View Only Radiation Oncology at [address] [phone] 04/24/2024 3:00 PM EST Scheduled View Only Radiation Oncology at [address] [address] 04/27/2024 11:15 AM EST Scheduled View Only Radiation Oncology at [address] [phone] 04/28/2024 11:30 AM EST Scheduled View Only Radiation Oncology at [address] [address] 04/28/2024 12:00 PM EST Office Visit Radiation Oncology at [address] [address] Radha Casiano MD [facility] DR [place] [address] 04/28/2024 2:00 PM EST Office Visit Cardiology at [address] [id number] Letty Montejo APRN [facility] [place] [address] 04/29/2024 11:15 AM EST Scheduled View Only Radiation Oncology at [address] [address] 04/30/2024 11:30 AM EST Scheduled View Only Radiation Oncology at [address] [phone] 05/01/2024 11:15 AM EST Scheduled View Only Radiation Oncology at [address] [address] 05/04/2024 10:45 AM EST Scheduled View Only Radiation Oncology at [address] [phone] 05/05/2024 1:00 PM EST Scheduled View Only Radiation Oncology at [address] [address] 05/05/2024 1:15 PM EST Office Visit Radiation Oncology at [address] [address] Radha Casiano MD [facility] DR [place] [address] 05/06/2024 1:00 PM EST Scheduled View Only Radiation Oncology at [address] [address] 05/07/2024 1:00 PM EST Scheduled View Only Radiation Oncology at [address] [address] 05/08/2024 1:00 PM EST Scheduled View Only Radiation Oncology at [address] [phone] 05/11/2024 11:30 AM EST Scheduled View Only Radiation Oncology at [address] [address] 01/13/2025 1:00 PM EST Office Visit Hematology/Oncology at [address] [phone] Lee Ann Jay MD [facility] HEMATOLOGY [place] [address] Leti Anderson APRN [facility] HEMATOLOGY [place] [address] documented as of this encounter Visit Diagnoses Not on filedocumented in this encounter Care Teams Call Center Supervisor Relationship Specialty Start Date End Date Julia Chatterjee MD [facility] KINA FELIZ [address] [address] PCP - General 01/31/10 documented as of this encounter
--- OUTSIDE RECORDS SUMMARY | 2024-04-17 01:20 | XMS_ITS | Encounter Summary ---
[place] [address] Care Team Providers Care Performance Reporter Name Role Phone Julia Chatterjee MD Primary Care Provider [phone] Encounter Details Date Type Department Care Team (Late st Contact Info) Description 02/20/2024 Telephone [place] [address] Manisha Huang RN Social History Tobacco Use Types Packs/Day [...] EST Scheduled View Only Radiation Oncology at [address] [phone] 04/20/2024 12:45 PM EST Scheduled View Only Radiation Oncology at [address] [phone] 04/21/2024 10:45 AM EST Scheduled View Only Radiation Oncology at [address] [phone] 04/21/2024 11:00 AM EST Office Visit Radiation Oncology at [address] [address] Radha Casiano MD [facility] [place] [address] 04/22/2024 3:00 PM EST Scheduled View Only Radiation Oncology at [address] [phone] 04/23/2024 3:00 PM EST Scheduled View Only Radiation Oncology at [address] [address] 04/24/2024 3:00 PM EST Scheduled View Only Radiation Oncology at [address] [address] 04/27/2024 11:15 AM EST Scheduled View Only Radiation Oncology at [address] [phone] 04/28/2024 11:30 AM EST Scheduled View Only Radiation Oncology at [address] [phone] 04/28/2024 12:00 PM EST Office Visit Radiation Oncology at [address] [address] Radha Casiano MD [facility] [place] [address] 04/28/2024 2:00 PM EST Office Visit Cardiology at [address] [place] [address] Letty Montejo APRN [facility] [place] [address] 04/29/2024 11:15 AM EST Scheduled View Only Radiation Oncology at [address] [address] 04/30/2024 11:30 AM EST Scheduled View Only Radiation Oncology at [address] [phone] 05/01/2024 11:15 AM EST Scheduled View Only Radiation Oncology at [address] [address] 05/04/2024 10:45 AM EST Scheduled View Only Radiation Oncology at [address] [address] 05/05/2024 1:00 PM EST Scheduled View Only Radiation Oncology at [address] [address] 05/05/2024 1:15 PM EST Office Visit Radiation Oncology at [address] [address] Radha Casiano MD [facility] [place] [address] 05/06/2024 1:00 PM EST Scheduled View Only Radiation Oncology at [address] [address] 05/07/2024 1:00 PM EST Scheduled View Only Radiation Oncology at [address] [address] 05/08/2024 1:00 PM EST Scheduled View Only Radiation Oncology at [address] [address] 05/11/2024 11:30 AM EST Scheduled View Only Radiation Oncology at [address] [address] 01/13/2025 1:00 PM EST Office Visit Hematology/Oncology at [address] [address] Lee Ann Jay MD [facility] DR [place] [address] Leti Anderson APRN [facility] [place] [address] documented as of this encounter Visit Diagnoses Not on filedocumented in this encounter Care Teams Performance Reporter Relationship Specialty Start Date End Date Julia Chatterjee MD [facility] [address] [place] [address] PCP - General 01/31/10 documented as of this encounter
--- OUTSIDE RECORDS SUMMARY | 2024-04-17 01:20 | XMS_ITS | Encounter Summary ---
Author Organization Formerly [facility] [address] Care Team Providers Care Grease Packer Name Role Phone Julia Chatterjee MD Primary Care Provider [phone] Encounter Details Date Type Department Care Team (Late st Contact Info) Description 02/19/2024 12:08 PM EST Anesthesia Event [place] [id number] Nolberto Dolan MD [facility] [place] [address] Anesthesia Record Procedure Summary Procedure Name Responsible Anesthesiologist Anesthesia Start Time Anesthesia Stop Time MASTECTOMY PARTIAL (WRVU 10.13) (Right: Breast) Nolberto Dolan MD 02/19/24 1208 02/19/24 1426 Events Date Time Event Comment 02/19/2024 1050 1208 AN Verify 1208 Start 1208 An Start Data 1212 An Induction 1214 An Intubation 1218 Anesthesia Ready 1235 Break/Relief In I assumed ca re for Break Relief before which we: 1. Identified the patient 2. Identified the responsible provider(s) 3. Reviewed the pertinent medical history 4. Discussed the surgical plan and course 5. Reviewed intra-op anesthesia management and issues during anesthesia 6. Set expectations for the relief (and/or post-procedure) period 7. Allowed opportunity for questions and acknowledgement of understanding Ivone Lucas, ROMERO 1306 Break/Relief Out 1345 Quick Note HOB up after BP recovered 1356 Quick Note Head down 1420 Extubation/LMA Out Following commands, Vt > 350, oropharynx suctioned and extubated to facemask without event. 1421 an stop data 1426 Recovery or ICU Handoff Sachi ent care was transferred to the destination unit staff after review of the patient's medical history, current anesthetic/surgical status and plan, according to the Provider Handoff Checklist. 1426 Stop Meds Name Total midazolam 2 mg fentaNYL 50 mcg lidocaine IV 50 mg propofoL 200 mg propofol INF 612.15 mg ePHEDrine 25 mg PHENYLephrine 960 mcg dexAMETHasone 8 mg ondansetron 8 mg ketorolac 15 mg ceFAZolin (Ancef) (100 mg/mL) injection solution 2 g 2 g vasopressin 4 Units magnesium sulfate 1 g sodium chloride 0.9% 1,400 mL * Agents Name O2 * Blood No blood administrations on file. Lines, Drains, and Airways Type Details Placement Removal Drain/Device Site 09/02/19; 1257; Righ t; posterior; chest; Winking/ Maeder; 10 fr Liver Drain 09/02/19 1257 by Froilan Guillen RN PIV 02/19/24; 1105; hrnj-oxu-rwhkyi catheter system; 22 gauge; cephalic vein (lateral side of arm), left; distraction, intradermal injection, tolerated well, appears comfortable 02/19/24 1105 by Latanya Wilde RN PIV 02/19/24; 1053; kqmj-ylz-zxmmjo catheter system; 22 gauge; metacarpal vein (top of hand), left; distraction, tolerated well, topical anesthetic spray applied, appears comfortable; LDA not present upon assessment; 02/19/24; 1425 02/19/24 1053 by Latanya Wilde RN 02/19/24 1425 by Gissell Sommer RN Supraglottic Mask Ventilation: No t Attempted (0); LMA Type: Unique; LMA Size: 4; Inserted by: ROMERO Urrutia; Removal Date: 02/19/24; Removal Time: 141902/19/24 1214 by Orlando Urrutia CRNA 02/19/24 1420 by Orlando Urrutia CRNA documented in this encounter Social History Tobacco Use Types Packs/Day Years [...] on file documented as of this encounter OR Notes * Anesthesia Postprocedure Evaluation - Nolberto Dolan MD - 02/19/2024 2:41 PM EST Department of Anesthesiology Post-procedure Note Patient: Leti Parry Procedure Summary Date: 02/19/24 Room / Location: [facility] OR [address] [place] [address] Anesthesia Start: 1208 Anesthesia Stop: 1425 Procedures: MASTECTOMY PARTIAL (WRVU 10.13) (Right: Breast) INTRAOPERATIVE ID (MAPPING) SENTINEL LYMPH NODE,INCLUDES INJECTION (WRVU 2.5) (Right) MODIFIER WITH NEEDLE LOC., LESION #1 (Right) Diagnosis: (BREAST CANCER) Surgeons: Martina Pugh MD Responsible Provider: Nolberto Dolan MD Anesthesia Type: general ASA Status: 2 All Anesthesia Providers: Anesthesiologist: Nolberto Dolan MD BENCH CARPENTER: Orlando Urrutia CRNA Vitals Value Taken Time BP 106/73 02/19/24 1430 Temp 35.8 ??C (96.4 ??F) 02/19/24 1425 Pulse 69 02/19/24 1441 Resp 16 02/19/24 1430 SpO2 98 % 02/19/24 1441 Pain Score 0 02/19/24 1425 Vitals shown include unfiled device data. Patient Location: PACU/[facility] Level of Consciousness: Awake and Alert Pain Management: Satisfactory Analgesia PONV: None Cardiovascular Status: Other Arrythmia (received treatment) and Hemodynamically Stable Respiratory Status: At Baseline Postoperative Fluid Status: Possible Anesthetic Complications: NONE apparent at time of evaluation Final Primary Anesthesia Type: General (The anesthetic type performed was the same as planned.) Comments: Patient with multiple runs of a-fib during procedure. Following procedure she has persistently been in a-fib with a rate in low 100s to 110s. She is asymptomatic, experiencing no chest painor shortness of breath, and is hemodynamically stable. She will be given a single dose of oral metoprolol 25 mg in PACU. We have arranged a follow up with her primary care tomorrow, and an urgent referral to cardiology. Both Leti and her wish to be discharged home with follow up tomorrow and decline transfer to the ED. She was instructed to be seen in the ED if she experiences chest pain, shortness of breath, light headedness or loss of consciousness. Both Leti and her report good understanding of the plan. * Anesthesia Preprocedure Evaluation - Nolberto Dolan MD - 02/19/2024 10:44 AM EST Pre-Anesthesia Evaluation for: Leti Parry a 73 y.o. female. Procedure(s): MASTECTOMY PARTIAL (WRVU 10.13) BIOPSY OR EXCISION OF LYMPH NODE(S), OPEN, DEEP AXILLARY NODE(S) (WRVU 6.43) INTRAOPERATIVE ID (MAPPING) SENTINEL LYMPH NODE,INCLUDES INJECTION (WRVU 2.5) MODIFIER WITH NEEDLE LOC., LESION #1 Patient Active Problem List Diagnosis Date Noted ??? Neutropenia 01/07/2024 ??? Malignant neoplasm of upper-outer quadrant of right breast in female, estrogen receptor positive 12/09/2023 ??? 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 Hepatic abscess 09/02/2019 ??? Ulcerative colitis 11/07/2016 ??? Leukopenia 07/09/2016 No past medical history on file. Past Surgical History: Procedure Laterality Date ??? CT ASPIRATION LIVER 09/02/2019 CT Guided Aspiration Liver 09/02/2019 [facility] RAD CAT SCAN ??? IR DRAIN CHECK/CHANGE/REMOVE 09/28/2019 IR Drain Check/Change/Remove 09/28/2019 Cliff Langston MD [facility] INTERVENTIONL RAD ??? MAMMO STEREOTACTIC BIOPSY RIGHT N/A 12/04/2023 Mammo Stereotactic Biopsy Right 12/04/2023 Tamir Fletcher MD [facility] RAD MAMMOGRAPHY ??? MRI GUIDED BIOPSY BREATS VACUUM ASSISTED W CLIP PLACEMENT BILATERAL Bilateral 01/16/2024 MRI Guided Biopsy Breast Vacuum Assisted w Clip Placement Bilateral 01/16/2024 [facility] RAD MRI ??? PRO BONE MARROW ASPIRATION W/BX THROUGH SAME INCISION/SITE Right 01/08/2017 ([facility]) BONE MARROW ASP PERFORMED W/BX THRU BX INCISION (WRVU 0.16) performed by Lee Ann Jay MD at [facility] OSC ??? PRO COLONOSCOPY, BIOPSY 07/05/2011 COLONOSCOPY FLEXIBLE, WITH BX performed by AYAZ CASTRO at [facility] ENDOSCOPY ??? PRO COLONOSCOPY, BIOPSY N/A 10/22/2019 COLONOSCOPY FLEXIBLE, WITH BX (WRVU 3.66) performed by Yola Oliveros MD at [facility] ENDOSCOPY ??? PRO COLONOSCOPY, BIOPSY N/A 04/12/2022 COLONOSCOPY FLEXIBLE, WITH BX (WRVU 3.66) performed by Yola Oliveros MD at [facility] ENDOSCOPY ??? PRO COLONOSCOPY, REMV LESN, SNARE 07/05/2011 COLONOSCOPY, POLYPECTOMY, REMOVAL LESION BY SNARE performed by AYAZ CASTRO at [facility] ENDOSCOPY ??? PRO COLONOSCOPY, REMV LESN, SNARE N/A 04/12/2022 COLONOSCOPY, POLYPECTOMY, REMOVAL LESION BY SNARE (WRVU 4.67) performed by Yola Oliveros MD at [facility] ENDOSCOPY ??? PRO DIAGNOSTIC BONE MARROW BIOPSIES Right 01/08/2017 ([facility]) BONE MARROW,BIOPSY (WRVU 1.37) performed by Lee Ann Jay MD at [facility] OSC ??? PRO SIGMOIDOSCOPY, DIAGNOSTIC N/A 09/02/2019 FLEXIBLE SIGMOIDOSCOPY performed by Ayaz Castro MD at [facility] ENDOSCOPY Social History Tobacco Use ??? Smoking status: Never ??? Smokeless tobacco: Never ??? Tobacco comments: never vape Substance Use Topics ??? Alcohol use: Yes Alcohol/week: 4.0 standard drinks of alcohol Types: 4 Shots of liquor per week Comment: Variable Social History Substance and Sexual Activity Drug Use No Allergies Allergen Reactions ??? Stevia [Stevioside (Bulk)] Diarrhea Intolerance with Artificial Sugars - Diarrhea. ??? Benzalkonium Chloride ??? Gluten Medications: MAR and/or home medications have been reviewed. Physical Exam: Preprocedure Vitals Current as of 02/19/24 1044 BP: 112/78 Pulse: Resp: 18 SpO2: 95 Temp: 36.2 ??C (97.2 ??F) Height: 160 cm (5' 3) (02/19/24) Weight: 67.1 kg (148 lb) (02/19/24) BMI: 26.21 IBW: 52.4 kg (115 lb 7.7 oz) Last edited 02/19/24 1000 by KF Airway Assessment: Mallampati: II TM distance: >3 FB Neck ROM: full Cardiovascular Assessment: system normal Pulmonary Assessment: unlabored breathing pulmonary exam normal Dental Assessment: Misc Assessment: Other exam findings: BP Readings from Last 3 Encounters: 02/19/24 : 112/78 02/17/24 : 138/76 01/15/24 : 127/72 Last Filed Perioperative Cognitive Screening None Anesthesia Plan: ASA 2 general, with a(n) intravenous induction 73 y/o female presenting for right partial mastectomy with sentinel node biopsy. Hx of large granular lymphocytic leukemia, ulcerative colitis, non-smoker, social ETOH NKDA NPO > 4 METS On presentation this am patient found to be predominantly in sinus rhythm with brief periods of tachycardia which appear to be a-fib into the 130s. We discussed the risk/benefit of proceeding in thiscircumstance and given the fact that she has two wires in place from her needle loc we agreed on proceeding. Will treat with beta blockade as needed to control rate, and both patient and aware that there is increased risk of admission following the procedure if she is persistently in a-fib with RVR. We also discussed the small risk of stroke and the possibility of hemodynamic instability. Plan for GA, LMA. Informed Consent: Anesthetic plan and risks discussed with patient. Plan discussed with BENCH CARPENTER. Anesthesia Screening documented in this encounter Miscellaneous Notes * Addendum Note - Nolberto Dolan MD - 02/19/2024 4:40 PM EST Addendum created 02/19/24 1640 by Nolberto Dolan MD Clinical Note Signed documented in this encounter Plan of Treatment Upcoming Encounters Date Type Department Care Team (Late st Contact Info) Description 04/17/2024 2:30 PM EST Scheduled View Only Radiation Oncology at [address] [phone] 04/20/2024 12:45 PM EST Scheduled View Only Radiation Oncology at [address] [phone] 04/21/2024 10:45 AM EST Scheduled View Only Radiation Oncology at [address] [phone] 04/21/2024 11:00 AM EST Office Visit Radiation Oncology at [address] [address] Radha Casiano MD [facility] [place] [address] 04/22/2024 3:00 PM EST Scheduled View Only Radiation Oncology at [address] [phone] 04/23/2024 3:00 PM EST Scheduled View Only Radiation Oncology at [address] [phone] 04/24/2024 3:00 PM EST Scheduled View Only Radiation Oncology at [address] [address] 04/27/2024 11:15 AM EST Scheduled View Only Radiation Oncology at [address] [phone] 04/28/2024 11:30 AM EST Scheduled View Only Radiation Oncology at [address] [address] 04/28/2024 12:00 PM EST Office Visit Radiation Oncology at [address] [address] Radha Casiano MD [facility] [address] [facility] [place] [address] 04/28/2024 2:00 PM EST Office Visit Cardiology at [address] [place] [address] Letty Montejo APRN [facility] [place] [address] 04/29/2024 11:15 AM EST Scheduled View Only Radiation Oncology at [address] [address] 04/30/2024 11:30 AM EST Scheduled View Only Radiation Oncology at [address] [phone] 05/01/2024 11:15 AM EST Scheduled View Only Radiation Oncology at [address] [address] 05/04/2024 10:45 AM EST Scheduled View Only Radiation Oncology at [address] [phone] 05/05/2024 1:00 PM EST Scheduled View Only Radiation Oncology at [address] [address] 05/05/2024 1:15 PM EST Office Visit Radiation Oncology at [address] [address] Radha Casiano MD [facility] [place] [address] 05/06/2024 1:00 PM EST Scheduled View Only Radiation Oncology at [address] [address] 05/07/2024 1:00 PM EST Scheduled View Only Radiation Oncology at [address] [address] 05/08/2024 1:00 PM EST Scheduled View Only Radiation Oncology at [address] [address] 05/11/2024 11:30 AM EST Scheduled View Only Radiation Oncology at [address] [address] 01/13/2025 1:00 PM EST Office Visit Hematology/Oncology at [address] [address] Lee Ann Jay MD [facility] [address] HEMATOLOGY [place] [address] Leti Anderson APRN [facility] [address] HEMATOLOGY [place] [address] documented as of this encounter Visit Diagnoses Not on filedocumented in this encounter Administered Medications Inactive Administered Medications - up to 3 most recent administrations Medication Order MAR Action Action Date Dose Rate Site ceFAZolin (Ancef) (100 mg/mL) injection solution 2 g 2 g, Intravenous, ONCE, 1 dose, On Sat02/19/24 at 0630, To be prepared by and administered by Anesthesia. Reconstitute each ceFAZolin 1 gram vial with 10 mL of NS or SWFI = 100 mg/mL May inject IV without further dilution over 3 to 5 minutes., Indication for (Active or Suspected): Prophylaxis New Bag 02/19/2024 12:15 PM EST 2 g dexAMETHasone (Decadron) injection Intravenous, PRN, Starting on Sat02/19/24 at 1215, Until Sat02/19/24 at 1428, Anesthesia Intra-op, Routine Given 02/19/2024 12:15 PM EST 8 mg ePHEDrine sulfate (5 mg/mL) multi-dose injection Intravenous, PRN, Starting on Sat02/19/24 at 1229, Until Sat02/19/24 at 1428, Anesthesia Intra-op, Routine Given 02/19/2024 12:32 PM EST 10 mg Given 02/19/2024 12:30 PM EST 10 mg Given 02/19/2024 12:29 PM EST 5 mg fentaNYL (pf) (50 mcg/mL) multi-dose injection Intravenous, PRN, Starting on Sat02/19/24 at 1223, Until Sat02/19/24 at 1428, Anesthesia Intra-op, Routine Given 02/19/2024 1:25 PM EST 25 mcg Given 02/19/2024 12:23 PM EST 25 mcg ketorolac (Toradol) (30 mg/mL) injection Intravenous, PRN, Starting on Sat02/19/24 at 1401, Until Sat02/19/24 at 1428, Anesthesia Intra-op, Routine Given 02/19/2024 2:01 PM EST 15 mg lidocaine (pf) (Xylocaine) (20 mg/mL) 2% injection syringe Intravenous, PRN, Starting on Sat02/19/24 at 1212, Until Sat02/19/24 at 1428, Anesthesia Intra-op, Routine Given 02/19/2024 12:12 PM EST 50 mg magnesium sulfate (4 mEq/mL) (50 %) injection Intravenous, PRN, Starting on Sat02/19/24 at 1359, Until Sat02/19/24 at 1428, Anesthesia Intra-op, Routine Given 02/19/2024 1:59 PM EST 1 g midazolam (pf) (Versed) (1 mg/mL) multi-dose injection Intravenous, PRN, Starting on Sat02/19/24 at 1209, Until Sat02/19/24 at 1428, Anesthesia Intra-op, Routine Given 02/19/2024 12:11 PM EST 1 mg Given 02/19/2024 12:09 PM EST 1 mg ondansetron (pf) (Zofran) (2 mg/mL) injection Intravenous, PRN, Starting on Sat02/19/24 at 1215, Until Sat02/19/24 at 1428, Anesthesia Intra-op, Routine Given 02/19/2024 2:01 PM EST 4 mg Given 02/19/2024 12:15 PM EST 4 mg PHENYLephrine in NS (PF) (JOHNATHON-SYNEPHRINE) 0.8 mg/10 mL (80 mcg/mL) multi-dose injection Syringe Intravenous, PRN, Starting on Sat02/19/24 at 1217, Until Sat02/19/24 at 1428, Anesthesia Intra-op, Routine Given 02/19/2024 2:11 PM EST 80 mcg Given 02/19/2024 2:05 PM EST 80 mcg Given 02/19/2024 1:45 PM EST 80 mcg propofoL (Diprivan) (10 mg/mL) infusion Intravenous, CONTINUOUS PRN, Starting on Sat02/19/24 at 1212, Until Sat02/19/24 at 1428, Anesthesia Intra-op, Routine Rate/Dose Change 02/19/2024 2:06 PM EST 60 mcg/kg/min 20.988 mL/hr Rate/Dose Change 02/19/2024 12:54 PM EST 80 mcg/kg/min 27. 984 mL/hr New Bag 02/19/2024 12:12 PM EST 100 mcg/kg/min 34.98 mL /hr propofoL (Diprivan) 10 mg/mL bolus injection (Anesthesia) Intravenous, PRN, Starting on Sat02/19/24 at 1212, Until Sat02/19/24 at 1428, Anesthesia Intra-op Given 02/19/2024 12:12 PM EST 200 mg sodium chloride 0.9% infusion Intravenous, CONTINUOUS PRN, Starting on Sat02/19/24 at 1208, Until Sat02/19/24 at 1428, Anesthesia Intra-op New Bag 02/19/2024 12:08 PM EST vasopressin (Vasostrict) injection Intravenous, PRN, Starting on Sat02/19/24 at 1329, Until Sat02/19/24 at 1428, Anesthesia Intra-op, Routine Given 02/19/2024 2:11 PM EST 1 Units Given 02/19/2024 2:05 PM EST 0.5 Units Given 02/19/2024 1:54 PM EST 1 Units documented in this encounter Care Teams Grease Packer Relationship Specialty Start Date End Date Julia Chatterjee MD [facility] [address] [place] [address] PCP - General 01/31/10 documented as of this encounter
--- OUTSIDE RECORDS SUMMARY | 2024-04-17 01:20 | XMS_ITS | Encounter Summary ---
Author Organization [facility] Address [facility] [place] [address] Care Team Providers Care Orthotic And Prosthetic Technician Name Role Phone Julia Chatterjee MD Primary Care Provider [phone] Encounter Details Date Type Department Care Team (Latest Contact Info) Description 03/27/2024 Travel Social History Tobacco Use Types Packs/Day [...] from your doctor or pharmacy? Never 03/16/2024 [facility] Utilities Answer Date Recorded In the [...] were you homeless or living in a detention (including now)? No 03/16/2024 [facility] IPV Inpatient [...] Scheduled View Only Radiation Oncology at [address] [address] 04/20/2024 12:45 PM EST Scheduled View Only Radiation Oncology at [address] [address] 04/21/2024 10:45 AM EST Scheduled View Only Radiation Oncology at [address] [phone] 04/21/2024 11:00 AM EST Office Visit Radiation Oncology at [address] [address] Radha Casiano MD [facility] [place] [address] 04/22/2024 3:00 PM EST Scheduled View Only Radiation Oncology at [address] [address] 04/23/2024 3:00 PM EST Scheduled View Only Radiation Oncology at [address] [phone] 04/24/2024 3:00 PM EST Scheduled View Only Radiation Oncology at [address] [address] 04/27/2024 11:15 AM EST Scheduled View Only Radiation Oncology at [address] [address] 04/28/2024 11:30 AM EST Scheduled View Only Radiation Oncology at [address] [address] 04/28/2024 12:00 PM EST Office Visit Radiation Oncology at [address] [address] Radha Casiano MD [facility] [place] [address] 04/28/2024 2:00 PM EST Office Visit Cardiology at [address] [place] [address] Letty Montejo APRN [facility] [place] [address] 04/29/2024 11:15 AM EST Scheduled View Only Radiation Oncology at [address] [address] 04/30/2024 11:30 AM EST Scheduled View Only Radiation Oncology at [address] [address] 05/01/2024 11:15 AM EST Scheduled View Only Radiation Oncology at [address] [address] 05/04/2024 10:45 AM EST Scheduled View Only Radiation Oncology at [address] [address] 05/05/2024 1:00 PM EST Scheduled View Only Radiation Oncology at [address] [address] 05/05/2024 1:15 PM EST Office Visit Radiation Oncology at [address] [address] Radha Casiano MD [facility] [place] [address] 05/06/2024 1:00 PM EST Scheduled View Only Radiation Oncology at [address] [address] 05/07/2024 1:00 PM EST Scheduled View Only Radiation Oncology at [address] [address] 05/08/2024 1:00 PM EST Scheduled View Only Radiation Oncology at [address] [address] 05/11/2024 11:30 AM EST Scheduled View Only Radiation Oncology at [address] [address] 01/13/2025 1:00 PM EST Office Visit Hematology/Oncology at [address] [address] Lee Ann Jay MD [facility] DR [place] [address] Leti Anderson APRN [facility] DR [place] [address] documented as of this encounter Visit Diagnoses Not on filedocumented in this encounter Care Teams Orthotic And Prosthetic Technician Relationship Specialty Start Date End Date Julia Chatterjee MD [facility] KINA DORADO [address] [place] [address] PCP - General 01/31/10 documented as of this encounter
--- OUTSIDE RECORDS SUMMARY | 2024-04-17 01:20 | XMS_ITS | Encounter Summary ---
Author Organization [facility] Address [facility] [place] [address] Care Team Providers Care Executive Pastry Chef Name Role Phone Julia Chatterjee MD Primary Care Provider Encounter Details Date Type Department Care Team (Late st Contact Info) Description 02/20/2024 Telephone [place] [phone] Martina Pugh MD [facility] [place] [address] Social History Tobacco Use Types Packs/Day Years [...] things needed for daily living? 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 Patient was noted to have new onset Afib with RVR yesterday perioperatively. She was asymptomatic and hemodynamically stable. After thorough discussion between anesthesia, the patient, her and their PCP, patient elected not to go to the ED and was discharged home after an oral dose of metoprolol with plan for follow up today with PCP. Patient reports feeling very well since discharge. She denies any palpitations, chest pain or shortness of breath. Reports PCP's office was sent her EKG from the [facility] and PCP's office sent some labs today. Plan made for holter monitoring as well. EKG read came back this afternoon showing afib with RVR with some ST/T wave abnormalities. This information was relayed to the patient and a copy of the EKG interpretation will be forwarded to her PCP as this was not completed when initial EKG sent. She has also been urgently referred to cardiologyin [place] and was provided the number to scheduled the appointment. Reviewed signs/symptoms that should prompt her to seek care in an ED. She expressed understanding and reiterated that she feels very well. I will call her with her pathology report when available andwill see her back at her scheduled postop check on 03/13. She will call with any postoperative questions in the interim. Martina Pugh MD 02/20/2024 EKG Interpretation: INTERPRETATION Atrial fibrillation with rapid ventricular response Low voltage QRS ST & T wave abnormality, consider anterior ischemia or digitalis effect Abnormal ECG When compared with ECG of 29-MAY-2007 10:22, Atrial fibrillation has replaced Sinus rhythm Vent. rate has increased BY [address] now depressed in Anterolateral leads T wave inversion more evident in Inferior leads T wave inversion now evident in Anterior leads Confirmed by MD Concha, Flaco ([id number]) on 02/20/2024 3:00:57 PM documented in this encounter Plan of Treatment Upcoming Encounters Date Type Department Care Team (Late st Contact Info) Description 04/17/2024 2:30 PM EST Scheduled View Only Radiation Oncology at [address] [phone] 04/20/2024 12:45 PM EST Scheduled View Only Radiation Oncology at [address] [address] 04/21/2024 10:45 AM EST Scheduled View Only Radiation Oncology at [address] [phone] 04/21/2024 11:00 AM EST Office Visit Radiation Oncology at [address] [address] Radha Casiano MD [facility] [place] [address] 04/22/2024 3:00 PM EST Scheduled View Only Radiation Oncology at [address] [address] 04/23/2024 3:00 PM EST Scheduled View Only Radiation Oncology at [address] [address] 04/24/2024 3:00 PM EST Scheduled View Only Radiation Oncology at [address] [address] 04/27/2024 11:15 AM EST Scheduled View Only Radiation Oncology at [address] [address] 04/28/2024 11:30 AM EST Scheduled View Only Radiation Oncology at [address] [address] 04/28/2024 12:00 PM EST Office Visit Radiation Oncology at [address] [address] Radha Casiano MD [facility] RADI[place] [address] 04/28/2024 2:00 PM EST Office Visit Cardiology at [address] [place] [address] Letty Montejo APRN [facility] [place] [address] 04/29/2024 11:15 AM EST Scheduled View Only Radiation Oncology at [address] [address] 04/30/2024 11:30 AM EST Scheduled View Only Radiation Oncology at [address] [address] 05/01/2024 11:15 AM EST Scheduled View Only Radiation Oncology at [address] [address] 05/04/2024 10:45 AM EST Scheduled View Only Radiation Oncology at [address] [address] 05/05/2024 1:00 PM EST Scheduled View Only Radiation Oncology at [address] [address] 05/05/2024 1:15 PM EST Office Visit Radiation Oncology at [address] [address] Radha Casiano MD [facility] [place] [address] 05/06/2024 1:00 PM EST Scheduled View Only Radiation Oncology at [address] [address] 05/07/2024 1:00 PM EST Scheduled View Only Radiation Oncology at [address] [address] 05/08/2024 1:00 PM EST Scheduled View Only Radiation Oncology at [address] [address] 05/11/2024 11:30 AM EST Scheduled View Only Radiation Oncology at [address] [address] 01/13/2025 1:00 PM EST Office Visit Hematology/Oncology at [address] [address] Lee Ann Jay MD [facility] [place] [address] Leti Anderson APRN [facility] [place] [address] documented as of this encounter Visit Diagnoses Not on filedocumented in this encounter Care Teams Executive Pastry Chef Relationship Specialty Start Date End Date Julia Chatterjee MD Sushant [address]ADO [address] [place] [address] PCP - General 01/31/10 documented as of this encounter
--- OUTSIDE RECORDS SUMMARY | 2024-04-17 01:20 | XMS_ITS | Encounter Summary ---
Author Organization [facility] Address [facility] [place] [address] Care Team Providers Care Wharf Labourer Name Role Phone Julia Chatterjee MD Primary Care Provider [phone] Encounter Details Date Type Department Care Team (Late st Contact Info) Description 02/21/2024 Telephone [place] [phone] Martina Pugh MD [facility] [place] [address] Social History Tobacco Use Types Packs/Day Years [...] things needed for daily living? No 12/09/2023 [facility] Inpatient Questions Answer Date Recorded Does Anyone [...] encounter Miscellaneous Notes * Telephone Encounter - Chasidy Rdz - 02/21/2024 9:59 AM EST Faxed EKG and Demographics to Dr Julia Chatterjee and Dr Deo Montanez documented in this encounter Plan of Treatment Upcoming Encounters Date Type Department Care Team (Late st Contact Info) Description 04/17/2024 2:30 PM EST Scheduled View Only Radiation Oncology at [address] [phone] 04/20/2024 12:45 PM EST Scheduled View Only Radiation Oncology at [address] [address] 04/21/2024 10:45 AM EST Scheduled View Only Radiation Oncology at [address] [address] 04/21/2024 11:00 AM EST Office Visit Radiation Oncology at [address] [address] Radha Casiano MD [facility] [place] [address] 04/22/2024 3:00 PM EST Scheduled View Only Radiation Oncology at [address] [address] 04/23/2024 3:00 PM EST Scheduled View Only Radiation Oncology at [address] [address] 04/24/2024 3:00 PM EST Scheduled View Only Radiation Oncology at [address] [address] 04/27/2024 11:15 AM EST Scheduled View Only Radiation Oncology at [address] [address] 04/28/2024 11:30 AM EST Scheduled View Only Radiation Oncology at [address] [address] 04/28/2024 12:00 PM EST Office Visit Radiation Oncology at [address] [address] Radha Casiano MD [facility] RADI[place] [address] 04/28/2024 2:00 PM EST Office Visit Cardiology at [address] [place] [phone] Letty Montejo APRN [facility] [place] [address] 04/29/2024 11:15 AM EST Scheduled View Only Radiation Oncology at [address] [address] 04/30/2024 11:30 AM EST Scheduled View Only Radiation Oncology at [address] [address] 05/01/2024 11:15 AM EST Scheduled View Only Radiation Oncology at [address] [address] 05/04/2024 10:45 AM EST Scheduled View Only Radiation Oncology at [address] [phone] 05/05/2024 1:00 PM EST Scheduled View Only Radiation Oncology at [address] [phone] 05/05/2024 1:15 PM EST Office Visit Radiation Oncology at [address] [address] Radha Casiano MD [facility] [address] [place] [address] 05/06/2024 1:00 PM EST Scheduled View Only Radiation Oncology at [address] [address] 05/07/2024 1:00 PM EST Scheduled View Only Radiation Oncology at [address] [address] 05/08/2024 1:00 PM EST Scheduled View Only Radiation Oncology at [address] [address] 05/11/2024 11:30 AM EST Scheduled View Only Radiation Oncology at [address] [phone] 01/13/2025 1:00 PM EST Office Visit Hematology/Oncology at [address] [address] Lee Ann Jay MD [facility] [address] [place] [address] Leti Anderson APRN [facility] [address] [place] [address] documented as of this encounter Visit Diagnoses Not on filedocumented in this encounter Care Teams Wharf Labourer Relationship Specialty Start Date End Date Julia Chatterjee MD [address] [place] [address] PCP - General 01/31/10 documented as of this encounter
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
--- OUTSIDE RECORDS SUMMARY | 2024-04-17 01:20 | XMS_ITS | Encounter Summary ---
Author Organization [facility] Address [facility] [place] [address] Care Team Providers Care Poultry Picking Machine Tender Name Role Phone Julia Chatterjee MD Primary Care Provider [phone] Reason for Visit * Reason Comments On Treatment Visit Encounter Details Date Type Department Care Team (Late st Contact Info) Description 04/14/2024 1:45 PM EST Office Visit Radiation Oncology at [address] [address] Radha Casiano MD [facility] [place] [address] Malignant neoplasm of upper-outer quadrant of right breast in female, estrogen receptor positive Social History Tobacco Use Types Packs/Day Years [...] from your doctor or pharmacy? Never 03/16/2024 [facility] Utilities Answer Date Recorded In the past 12 months has e [employer], gas, oil, or water company threatened to [...] any time in the past 12 m [facility], were you homeless or living in [...] - Pulse - - Temperature 36.6 ??C (97.9 ??F) 04/14/2024 2:22 PM ES T Respiratory Rate 16 04/14/2024 2:22 PM EST Oxygen Saturation - - Inhaled Oxygen Concentration - - Weight 69.5 kg (153 lb 3.2 oz) 04/14/2024 2:22 P M EST Height - - Body Mass Index 27.35 04/07/2024 3:47 PM EST documented in this encounter Progress Notes * Radha Casiano MD - 04/14/2024 1:45 PM EST Images from the original note were not included. DIAGNOSIS: Breast ca, R, DCIS, gr 3, ER+, 5 cm, s/p lumpectomy w/1 close margin (1 mm), pTis. CURRENT TREATMENT DOSE: 2.66 Gy R breast ANTICIPATED TOTAL DOSE: 42.56 Gy R breast, 52.56 Gy lumpectomy bed Current # of xrt received: 1 R breast Anticipated total # of xrt txs: 16 R breast, 20 lumpectomy bed Evaluation of port verification films: Approved. For details, see electronic film record in [employer]. Changes in Medical Condition: None. Accompanied by . Pain?: No. Your Medications Accurate as of April 14, 2024 2:37 PM. If you have any questions, ask your nurse or doctor. Continued medications, unchanged Dose Details acetaminophen 500 mg tablet Commonly known as: Tylenol Take 2 tablets by mouth every 6 hours as needed for Pain. 1,000 mg Refills: 0 ARNICA 3X ORAL Take by mouth as needed. Refills: 0 ascorbic acid (Vitamin C) 500 mg tablet Commonly known as: Vitamin C Take 400 mg by mouth 2 times daily. 400 mg Refills: 0 ibuprofen 600 mg tablet Commonly known as: Advil Take 1 tablet by mouth every 6 hours as needed for Pain. 600 mg Refills: 0 magnesium 250 mg tablet Take by mouth. 360mg daily Refills: 0 PRIMROSE OIL ORAL Take by mouth. Refills: 0 selenium 50 mcg tablet Take 200 mcg by mouth. 200 mcg Refills: 0 * UNABLE TO FIND Digestive enzymes Refills: 0 * UNABLE TO FIND 134 mg 3 times daily. Drenatrophin pmg 134 mg Refills: 0 * UNABLE TO FIND 227 mg. Eleuthroel DGL 227 mg Refills: 0 * UNABLE TO FIND Jeans Cream. Do not apply within 2 hours prior to radiation treatment Refills: 0 VITAMIN D3 ORAL Take 4,000 Units by mouth daily. 4,000 Units Refills: 0 ZINC-220 ORAL Take by mouth. 15 mg Refills: 0 * This list has 4 medication(s) that are the same as other medications prescribed for you. Read thedirections carefully, and ask your doctor or other care provider to review them with you. Physical Exam: Temp 36.6 ??C (97.9 ??F) (Temporal) Resp 16 Wt 69.5 kg (153 lb 3.2 oz) BMI 27.35 kg/m?? A&Ox3, NAD. Amb stable. Imagin03/27/24 Dx'ic Rad Interp Ctsim: No suspicious lesion. Performance Status: KPS 100% Response to xrt: As expected. Irradiation Related Symptoms: None. Treatment for Symptom Control: Remedy cream. Pain Management: Discussed taking tylenol 30-60 mins prior to xrt to increase comfort on xrt tx table. Recommendation on Continuing Course of xrt: Continue. 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 documented in this encounter Plan of Treatment Upcoming Encounters Date Type Department Care Team (Late st Contact Info) Description 04/17/2024 2:30 PM EST Scheduled View Only Radiation Oncology at [address] [phone] 04/20/2024 12:45 PM EST Scheduled View Only Radiation Oncology at [address] [phone] 04/21/2024 10:45 AM EST Scheduled View Only Radiation Oncology at [address] [address] 04/21/2024 11:00 AM EST Office Visit Radiation Oncology at [address] [address] Radha Casiano MD [facility] [place] [address] 04/22/2024 3:00 PM EST Scheduled View Only Radiation Oncology at [address] [address] 04/23/2024 3:00 PM EST Scheduled View Only Radiation Oncology at [address] [address] 04/24/2024 3:00 PM EST Scheduled View Only Radiation Oncology at [address] [address] 04/27/2024 11:15 AM EST Scheduled View Only Radiation Oncology at [address] [address] 04/28/2024 11:30 AM EST Scheduled View Only Radiation Oncology at [address] [address] 04/28/2024 12:00 PM EST Office Visit Radiation Oncology at [address] [address] Radha Casiano MD [facility] [place] [address] 04/28/2024 2:00 PM EST Office Visit Cardiology at [address] [phone] Letty Montejo APRN [facility] [place] [address] 04/29/2024 11:15 AM EST Scheduled View Only Radiation Oncology at [address] [address] 04/30/2024 11:30 AM EST Scheduled View Only Radiation Oncology at [address] [address] 05/01/2024 11:15 AM EST Scheduled View Only Radiation Oncology at [address] [address] 05/04/2024 10:45 AM EST Scheduled View Only Radiation Oncology at [address] [address] 05/05/2024 1:00 PM EST Scheduled View Only Radiation Oncology at [address] [address] 05/05/2024 1:15 PM EST Office Visit Radiation Oncology at [address] [address] Radha Casiano MD [facility] [place] [address] 05/06/2024 1:00 PM EST Scheduled View Only Radiation Oncology at [address] [address] 05/07/2024 1:00 PM EST Scheduled View Only Radiation Oncology at [address] [phone] 05/08/2024 1:00 PM EST Scheduled View Only Radiation Oncology at [address] [address] 05/11/2024 11:30 AM EST Scheduled View Only Radiation Oncology at [address] [address] 01/13/2025 1:00 PM EST Office Visit Hematology/Oncology at [address] [address] Lee Ann Jay MD [facility] DR HEMAT[place] [address] Leti Anderson APRN [facility] [address] HEMATOLOG[place] [address] Scheduled Orders Name Type Priority Associated Diagnoses Orde r Schedule CBC (with Diff) Lab Routine Malignant neoplasm of upper-outer quadrant of right breast in female, estrogen receptor positive Expected: 04/15/2024, Expires: 10/15/2024 documented as of this encounter Visit Diagnoses Diagnosis Malignant neoplasm of upper-outer quadrant of right breast in female, estrogen receptor positive documented in this encounter Care Teams Poultry Picking Machine Tender Relationship Specialty Start Date End Date Julia Chatterjee MD [facility] [address] [place] [address] PCP - General 01/31/10 documented as of this encounter
--- OUTSIDE RECORDS SUMMARY | 2024-04-17 01:20 | XMS_ITS | Encounter Summary ---
Author Organization [facility] Address [facility] [place] [address] Care Team Providers Care High School Guidance Counselor Name Role Phone Julia Chatterjee MD Primary Care Provider Reason for Visit * Reason Comments Simulation * Consultation (Routine) - Authorized Specialty Diagnoses / Procedures Referred By Contac t Referred To Contact Radiation Oncology Diagnoses Malignant neoplasm of upper-outer quadrant of right breast in female, estrogen receptor positive Procedures Simulation for Radiation Therapy Planning Radha Casiano MD [facility] [place] [address] [facility] [place] [address] Referral ID Status Reason Start Date Expiration Date Visits Requested Visits Authorized [id number] Authorized Consult, Test & Treat 03/16/2024 03/16/2025 1 21 Encounter Details Date Type Department Care Team (Latest Contact Info) Description 03/27/2024 10:30 AM EST Ancillary Appointment [place] [phone] Radha Casiano MD [facility] [place] [address] Malignant neoplasm of upper-outer quadrant of right [...] from your doctor or pharmacy? Never 03/16/2024 [facility] Utilities Answer Date Recorded In the [...] any time in the past 12 m [facility], were you homeless or living in a care home (including now)? No 03/16/2024 IPV Inpatient Questions [...] Sign Reading Time Taken Comments Blood Pressure 124/81 03/27/2024 10:05 AM EST Pulse 61 03/27/2024 10:05 AM EST Temperature 36.5 ??C (97.7 ??F) 03/27/2024 10:[address] Respiratory Rate - - Oxygen Saturation 98% 03/27/2024 10:05 AM EST Inhaled Oxygen Concentration - - Weight 67.1 kg (148 lb) 03/27/2024 10:05 AM EST Height - - Body Mass Index 26.22 03/13/2024 10:22 AM EST documented in this encounter Patient Instructions * Patient Instructions* Faby Ponce V RN - 03/27/2024 10:30 AM EST Information for Patients receiving radiation therapy to the Breast Approximately two weeks after your first treatment, you may begin to experience side effects causedby the radiation. These effects may continue throughout the treatment period and not start improving until 1-2 weeks after treatment is completed. Your doctor will tell you which side effects you aremost likely to experience, when you will notice them and how long they might last. It is important to follow the appropriate instructions to minimize your discomfort. Skin Care Wash skin in the treatment field with lukewarm water and mild or moisturizing, unscented soap daily. Blot skin dry with a soft towel. Do not apply any ointment, salve, deodorant, perfume, cologne, cosmetic or self- remedy to the treatment area while you are undergoing radiation and for 1-2 weeks following treatment. An all natural deodorant with no aluminum can be used if necessary. Moisturizing cream will be provided for you. This may be used in the treatment area once daily beginning on your first treatment day. Do not apply 2 hours before your radiation treatments. As dryness/redness develop you can use this more often. Do not rub or scratch the skin in the treatment field. This includes shaving unless you use an electric razor. If your skin becomes dry or itchy, tell your nurse or doctor. If necessary, your doctor may order a medication specifically for this problem. Do not use hot water bottles, heating lights, electric heating pads, or hot packs to the treatment area. Keep treated areas out of the sun throughout the treatment period. Be careful of sun exposure to the treatment field for one year following treatment. Please use SPF> 30 to all exposed areas of skin and limit sun exposure. Avoid tight fitting clothes. Examine your skin in the treatment area daily and watch for changes. If you cannot reach the whole treatment field ask a family member to look at it and apply cream as needed. Be careful to keep the area under your breast clean and dry as this area can get irritated first. You will meet with your nurse and doctor weekly. They will check your skin and help you with any side effects you are having. Please ask to see the nurse if you have concerns in between these days. During the last weeks of treatment you may notice some peeling of skin and/or a moist reaction. Be sure to let us know if this happens so we can provide you with further skin care instructions.. Continue to stay active, walk daily, eat healthy foods and drink several glasses of water each day. Fatigue You may notice that you feel unusually tired towards the end of treatment. This is not unusual. We recommend that you pace your activities and plan for rest periods to avoid becoming over-tired. Feel free to direct any questions or concerns you may have related to your treatment to your nurse or doctor. [facility] Radiation Oncology Our normal business hours are: Saturday - Saturday 8 AM to 5 PM [place], [place], [place] For emergent situations after hours please call for either location and ask for the Radiation Oncologist on site property manager. documented in this encounter Progress Notes * Radha Casiano MD - 03/27/2024 10:30 AM EST Here for sim. S: Concerned about white blood cell count during xrt. Sim: Breast bd immobilization; wire on R breast lumpectomy scar & flat bbs on R breast perimeter; CT through chest; 3D xrt planned. She tolerated sim well, w/o problem. Tx Plan: 3D xrt. Start xrt 1-2 wks. Informed her that significant decrease in white blood cell count during xrt not anticipated, but will check CBC during xrt. Reminded to not take vit C or primrose oil supplement during xrt. documented in this encounter Plan of Treatment Upcoming Encounters Date Type Department Care Team (Late st Contact Info) Description 04/17/2024 2:30 PM EST Scheduled View Only Radiation Oncology at [address] [phone] 04/20/2024 12:45 PM EST Scheduled View Only Radiation Oncology at [address] [address] 04/21/2024 10:45 AM EST Scheduled View Only Radiation Oncology at [address] [address] 04/21/2024 11:00 AM EST Office Visit Radiation Oncology at [address] [address] Radha Casiano MD [facility] [place] [address] 04/22/2024 3:00 PM EST Scheduled View Only Radiation Oncology at [address] [phone] 04/23/2024 3:00 PM EST Scheduled View Only Radiation Oncology at [address] [address] 04/24/2024 3:00 PM EST Scheduled View Only Radiation Oncology at [address] [address] 04/27/2024 11:15 AM EST Scheduled View Only Radiation Oncology at [address] [address] 04/28/2024 11:30 AM EST Scheduled View Only Radiation Oncology at [address] [address] 04/28/2024 12:00 PM EST Office Visit Radiation Oncology at [address] [address] Radha Casiano MD [facility] [place] [address] 04/28/2024 2:00 PM EST Office Visit Cardiology at [address] [place] [address] Letty Montejo APRN [facility] [place] [address] 04/29/2024 11:15 AM EST Scheduled View Only Radiation Oncology at [address] [address] 04/30/2024 11:30 AM EST Scheduled View Only Radiation Oncology at [address] [address] 05/01/2024 11:15 AM EST Scheduled View Only Radiation Oncology at [address] [address] 05/04/2024 10:45 AM EST Scheduled View Only Radiation Oncology at [address] [address] 05/05/2024 1:00 PM EST Scheduled View Only Radiation Oncology at [address] [address] 05/05/2024 1:15 PM EST Office Visit Radiation Oncology at [address] [address] Radha Casiano MD [facility] [place] [address] 05/06/2024 1:00 PM EST Scheduled View Only Radiation Oncology at [address] [address] 05/07/2024 1:00 PM EST Scheduled View Only Radiation Oncology at [address] [address] 05/08/2024 1:00 PM EST Scheduled View Only Radiation Oncology at [address] [address] 05/11/2024 11:30 AM EST Scheduled View Only Radiation Oncology at [address] [address] 01/13/2025 1:00 PM EST Office Visit Hematology/Oncology at [address] [address] Lee Ann Jay MD [facility] [address] [place] [address] Leti Anderson APRN [facility] [place] [address] documented as of this encounter Visit Diagnoses Diagnosis Malignant neoplasm of upper-outer quadrant of right breast in female, estrogen receptor positive documented in this encounter Care Teams High School Guidance Counselor Relationship Specialty Start Date End Date Julia Chatterjee MD [address] [place] [address] PCP - General 01/31/10 documented as of this encounter
--- OUTSIDE RECORDS SUMMARY | 2024-04-17 01:20 | XMS_ITS | Encounter Summary ---
Author Organization [facility] Address [facility] [place] [address] Care Team Providers Care Customer Experience Leader Name Role Phone Julia Chatterjee MD Primary Care Provider [phone] Reason for Visit * Reason Onset Date Comments Other 02/24/2024 Neulasta side ef fect Encounter Details Date Type Department Care Team (Late st Contact Info) Description 02/24/2024 Telephone Hematology/Oncology at [address] [address] Mera Cintron RN Other (Neulasta side effect) Social History Tobacco Use Types Packs/Day Years [...] Telephone Encounter - Mera Cintron RN - 02/26/2024 9:57 AM EST She just wanted this in her file that the last shot that she had. Generic of Neulasta 02/17/24 the side effects were a lot no sleep for 2 nights and body pain. Providers updated. documented in this encounter Plan of Treatment Upcoming Encounters Date Type Department Care Team (Late st Contact Info) Description 04/17/2024 2:30 PM EST Scheduled View Only Radiation Oncology at [address] [address] 04/20/2024 12:45 PM EST Scheduled View Only Radiation Oncology at [address] [phone] 04/21/2024 10:45 AM EST Scheduled View Only Radiation Oncology at [address] [address] 04/21/2024 11:00 AM EST Office Visit Radiation Oncology at [address] [address] Radha Casiano MD [facility] [place] [address] 04/22/2024 3:00 PM EST Scheduled View Only Radiation Oncology at [address] [address] 04/23/2024 3:00 PM EST Scheduled View Only Radiation Oncology at [address] [address] 04/24/2024 3:00 PM EST Scheduled View Only Radiation Oncology at [address] [address] 04/27/2024 11:15 AM EST Scheduled View Only Radiation Oncology at [address] [address] 04/28/2024 11:30 AM EST Scheduled View Only Radiation Oncology at [address] [address] 04/28/2024 12:00 PM EST Office Visit Radiation Oncology at [address] [address] Radha Casiano MD [facility] [place] [address] 04/28/2024 2:00 PM EST Office Visit Cardiology at [address] [place] [address] Letty Montejo APRN [facility] [place] [address] 04/29/2024 11:15 AM EST Scheduled View Only Radiation Oncology at [address] [address] 04/30/2024 11:30 AM EST Scheduled View Only Radiation Oncology at [address] [address] 05/01/2024 11:15 AM EST Scheduled View Only Radiation Oncology at [address] [address] 05/04/2024 10:45 AM EST Scheduled View Only Radiation Oncology at [address] [address] 05/05/2024 1:00 PM EST Scheduled View Only Radiation Oncology at [address] [address] 05/05/2024 1:15 PM EST Office Visit Radiation Oncology at [address] [address] Radha Casiano MD [facility] [place] [address] 05/06/2024 1:00 PM EST Scheduled View Only Radiation Oncology at [address] [address] 05/07/2024 1:00 PM EST Scheduled View Only Radiation Oncology at [address] [address] 05/08/2024 1:00 PM EST Scheduled View Only Radiation Oncology at [address] [address] 05/11/2024 11:30 AM EST Scheduled View Only Radiation Oncology at [address] [address] 01/13/2025 1:00 PM EST Office Visit Hematology/Oncology at [address] [address] Lee Ann Jay MD [facility] DR [place] [address] Leti Anderson APRN [facility] DR [place] [address] documented as of this encounter Visit Diagnoses Not on filedocumented in this encounter Care Teams Customer Experience Leader Relationship Specialty Start Date End Date Julia Chatterjee MD [facility] KINA DORADO [address] [place] [address] PCP - General 01/31/10 documented as of this encounter
--- OUTSIDE RECORDS SUMMARY | 2024-04-17 01:20 | XMS_ITS | Encounter Summary ---
Author Organization [facility] Address [facility] [place] [address] Care Team Providers Care Credit Rating Checker Name Role Phone Julia Chatterjee MD Primary Care Provider [phone] Encounter Details Date Type Department Care Team (Latest Contact Info) Description 03/13/2024 Travel Social History Tobacco Use Types Packs/Day [...] EST Scheduled View Only Radiation Oncology at [address] [phone] 04/20/2024 12:45 PM EST Scheduled View Only Radiation Oncology at [address] [address] 04/21/2024 10:45 AM EST Scheduled View Only Radiation Oncology at [address] [address] 04/21/2024 11:00 AM EST Office Visit Radiation Oncology at [address] [address] Radha Casiano MD [facility] [place] [address] 04/22/2024 3:00 PM EST Scheduled View Only Radiation Oncology at [address] [address] 04/23/2024 3:00 PM EST Scheduled View Only Radiation Oncology at [address] [address] 04/24/2024 3:00 PM EST Scheduled View Only Radiation Oncology at [address] [address] 04/27/2024 11:15 AM EST Scheduled View Only Radiation Oncology at [address] [address] 04/28/2024 11:30 AM EST Scheduled View Only Radiation Oncology at [address] [address] 04/28/2024 12:00 PM EST Office Visit Radiation Oncology at [address] [address] Radha Casiano MD [facility] [place] [place] [address] 04/28/2024 2:00 PM EST Office Visit Cardiology at [address] [place] [address] Letty Montejo APRN [facility] [place] [address] 04/29/2024 11:15 AM EST Scheduled View Only Radiation Oncology at [address] [address] 04/30/2024 11:30 AM EST Scheduled View Only Radiation Oncology at [address] [address] 05/01/2024 11:15 AM EST Scheduled View Only Radiation Oncology at [address] [address] 05/04/2024 10:45 AM EST Scheduled View Only Radiation Oncology at [address] [address] 05/05/2024 1:00 PM EST Scheduled View Only Radiation Oncology at [address] [address] 05/05/2024 1:15 PM EST Office Visit Radiation Oncology at [address] [address] Radha Casiano MD [facility] [place] [address] 05/06/2024 1:00 PM EST Scheduled View Only Radiation Oncology at [address] [address] 05/07/2024 1:00 PM EST Scheduled View Only Radiation Oncology at [address] [address] 05/08/2024 1:00 PM EST Scheduled View Only Radiation Oncology at [address] [address] 05/11/2024 11:30 AM EST Scheduled View Only Radiation Oncology at [address] [address] 01/13/2025 1:00 PM EST Office Visit Hematology/Oncology at [address] [phone] Lee Ann Jay MD [facility] DR [place] [address] Leti Anderson APRN [facility] [place] [address] documented as of this encounter Visit Diagnoses Not on filedocumented in this encounter Care Teams Credit Rating Checker Relationship Specialty Start Date End Date Julia Chatterjee MD [facility] [address] [place] [address] PCP - General 01/31/10 documented as of this encounter
--- OUTSIDE RECORDS SUMMARY | 2024-04-17 01:20 | XMS_ITS | Encounter Summary ---
Author Organization [facility] Address [place] [address] Care Team Providers Care Fishing Boat Captain Name Role Phone Julia Chatterjee MD Primary Care Provider [phone] Encounter Details Date Type Department Care Team (Latest Contact Info) Description 02/19/2024 8:24 AM EST - 02/19/2024 9:29 AM EST Hospital [place] [address] Ted Pugh MD [facility] [address] Malignant neoplasm of right female breast, unspecified estrogen receptor status, unspecified site of breast Discharge Disposition: Home Social History Tobacco Use [...] things needed for daily living? No 12/09/2023 [facility] Inpatient Questions Answer Date Recorded Does Anyone [...] EST Scheduled View Only Radiation Oncology at [address] [address] 04/20/2024 12:45 PM EST Scheduled View Only Radiation Oncology at [address] [address] 04/21/2024 10:45 AM EST Scheduled View Only Radiation Oncology at [address] [address] 04/21/2024 11:00 AM EST Office Visit Radiation Oncology at [address] [address] Radha Casiano MD [facility] [address] 04/22/2024 3:00 PM EST Scheduled View Only Radiation Oncology at [address] [address] 04/23/2024 3:00 PM EST Scheduled View Only Radiation Oncology at [address] [address] 04/24/2024 3:00 PM EST Scheduled View Only Radiation Oncology at [address] [address] 04/27/2024 11:15 AM EST Scheduled View Only Radiation Oncology at [address] [address] 04/28/2024 11:30 AM EST Scheduled View Only Radiation Oncology at [address] [address] 04/28/2024 12:00 PM EST Office Visit Radiation Oncology at [address] [address] Radha Casiano MD [facility] [place] [address] 04/28/2024 2:00 PM EST Office Visit Cardiology at [address] [address] Letty Montejo APRN [facility] [place] [address] 04/29/2024 11:15 AM EST Scheduled View Only Radiation Oncology at [address] [address] 04/30/2024 11:30 AM EST Scheduled View Only Radiation Oncology at [address] [address] 05/01/2024 11:15 AM EST Scheduled View Only Radiation Oncology at [address] [address] 05/04/2024 10:45 AM EST Scheduled View Only Radiation Oncology at [address] [address] 05/05/2024 1:00 PM EST Scheduled View Only Radiation Oncology at [address] [address] 05/05/2024 1:15 PM EST Office Visit Radiation Oncology at [address] [address] Radha Casiano MD [facility] [place] [address] 05/06/2024 1:00 PM EST Scheduled View Only Radiation Oncology at [address] [address] 05/07/2024 1:00 PM EST Scheduled View Only Radiation Oncology at [address] [address] 05/08/2024 1:00 PM EST Scheduled View Only Radiation Oncology at [address] [address] 05/11/2024 11:30 AM EST Scheduled View Only Radiation Oncology at [address] [address] 01/13/2025 1:00 PM EST Office Visit Hematology/Oncology at [address] [address] Lee Ann Jay MD [facility] [place] [address] Leti Andreson APRN [facility] [place] [address] documented as of this encounter Procedures Procedure Name Priority Date/Time Associated Diagnosis Comments MAMMO SPECIMEN RIGHT Routine 02/19/2024 1:16 PM EST Malignant neoplasm of right female breast, unspecified estrogen receptor status, unspecified site of breast documented in this encounter Results * Mammo Specimen Right (02/19/2024 1:16 PM [...] not adequately clear by single plane radiography. TED PUGH was informed in the operating room [...] who have questions please contact the health manager critical care unit that requested your imaging first. ? [facility] [address], [place] ??[id number] Ted Pugh MD IMG MAMMO ORDERAB LES documented in this encounter Visit Diagnoses Diagnosis Malignant neoplasm of right female breast, unspecified estrogen receptor status, unspecified site of breast documented in this encounter Care Teams Fishing Boat Captain Relationship Specialty Start Date End Date Julia Chatterjee MD [address] [place] [address] PCP - General 01/31/10 documented as of this encounter
--- OUTSIDE RECORDS SUMMARY | 2024-04-17 01:20 | XMS_ITS | Encounter Summary ---
Author Organization [facility] [place] [address] Care Team Providers Care Door To Door Selling Agent Name Role Phone Julia Chatterjee MD Primary Care Provider [phone] Encounter Details Date Type Department Care Team (Latest Contact Info) Description 02/17/2024 Travel Social History Tobacco Use Types Packs/Day Years Used Date Smoking Tobacco: Never Smokeless Tobacco: Never Comments:never vape Alcohol Use Standard Drinks/Week Comments Yes 4 (1 standard drink = 0.6 oz pur e alcohol) Overall Financial Resource Strain (CARDIA) Answe r [...] things needed for daily living? No 12/09/2023 Sex and Gender Information Value Date Recorded Sex Assigned at Not on file Gender Identity Not on file Sexual Orientation Not on file documented as of this encounter Plan of Treatment Upcoming Encounters Date Type Department Care Team (Late st Contact Info) Description 04/17/2024 2:30 PM EST Scheduled View Only Radiation Oncology at [address] [id number] 04/20/2024 12:45 PM EST Scheduled View Only Radiation Oncology at [address] [address] 04/21/2024 10:45 AM EST Scheduled View Only Radiation Oncology at [address] [address] 04/21/2024 11:00 AM EST Office Visit Radiation Oncology at [address] [address] Radha Casiano MD [facility] [place] [address] 04/22/2024 3:00 PM EST Scheduled View Only Radiation Oncology at [address] [address] 04/23/2024 3:00 PM EST Scheduled View Only Radiation Oncology at [address] [address] 04/24/2024 3:00 PM EST Scheduled View Only Radiation Oncology at [address] [address] 04/27/2024 11:15 AM EST Scheduled View Only Radiation Oncology at [address] [address] 04/28/2024 11:30 AM EST Scheduled View Only Radiation Oncology at [address] [address] 04/28/2024 12:00 PM EST Office Visit Radiation Oncology at [address] [address] Radha Casiano MD [facility] RADI[place] [address] 04/28/2024 2:00 PM EST Office Visit Cardiology at [address] [place] [address] Letty Montejo, [employer] [facility] [place] [address] 04/29/2024 11:15 AM EST Scheduled View Only Radiation Oncology at [address] [address] 04/30/2024 11:30 AM EST Scheduled View Only Radiation Oncology at [address] [address] 05/01/2024 11:15 AM EST Scheduled View Only Radiation Oncology at [address] [address] 05/04/2024 10:45 AM EST Scheduled View Only Radiation Oncology at [address] [address] 05/05/2024 1:00 PM EST Scheduled View Only Radiation Oncology at [address] [address] 05/05/2024 1:15 PM EST Office Visit Radiation Oncology at [address] [address] Radha Casiano MD [facility] RADIATION ONCOLOGY [place] [phone] 05/06/2024 1:00 PM EST Scheduled View Only Radiation Oncology at [address] [address] 05/07/2024 1:00 PM EST Scheduled View Only Radiation Oncology at [address] [address] 05/08/2024 1:00 PM EST Scheduled View Only Radiation Oncology at [address] [address] 05/11/2024 11:30 AM EST Scheduled View Only Radiation Oncology at [address] [address] 01/13/2025 1:00 PM EST Office Visit Hematology/Oncology at [address] [address] Lee Ann Jay MD [facility] HEMAT[place] [address] Leti Anderson APRN [facility] HEMATOLOG[place] [address] documented as of this encounter Visit Diagnoses Not on filedocumented in this encounter Care Teams Door To Door Selling Agent Relationship Specialty Start Date End Date Julia Chatterjee MD [facility] [address] [place] [address] PCP - General 01/31/10 documented as of this encounter
--- OUTSIDE RECORDS SUMMARY | 2024-04-17 01:20 | XMS_ITS | Encounter Summary ---
Author Organization [facility] Address [facility] [place] [address] Care Team Providers Care Carbon Paper Coating Machine Setter Name Role Phone Julia Chatterjee MD Primary Care Provider [phone] Encounter Details Date Type Department Care Team (Latest Contact Info) Description 03/16/2024 Travel Social History Tobacco Use Types Packs/Day [...] doctor or pharmacy? Never 03/16/2024 [facility] Utilities Answer Date Recorded In the past [...] were you homeless or living in a group home (including now)? No 03/16/2024 [facility] IPV Inpatient [...] EST Scheduled View Only Radiation Oncology at [address] [address] 04/20/2024 12:45 PM EST Scheduled View Only Radiation Oncology at [address] [address] 04/21/2024 10:45 AM EST Scheduled View Only Radiation Oncology at [address] [address] 04/21/2024 11:00 AM EST Office Visit Radiation Oncology at [address] [address] [facility] [place] [address] 04/22/2024 3:00 PM EST Scheduled View Only Radiation Oncology at [address] [address] 04/23/2024 3:00 PM EST Scheduled View Only Radiation Oncology at [address] [address] 04/24/2024 3:00 PM EST Scheduled View Only Radiation Oncology at [address] [address] 04/27/2024 11:15 AM EST Scheduled View Only Radiation Oncology at [address] [address] 04/28/2024 11:30 AM EST Scheduled View Only Radiation Oncology at [address] [address] 04/28/2024 12:00 PM EST Office Visit Radiation Oncology at [address] [address] [facility] [place] [address] 04/28/2024 2:00 PM EST Office Visit Cardiology at [address] [place] [address] [facility] [place] [address] 04/29/2024 11:15 AM EST Scheduled View Only Radiation Oncology at [address] [address] 04/30/2024 11:30 AM EST Scheduled View Only Radiation Oncology at [address] [address] 05/01/2024 11:15 AM EST Scheduled View Only Radiation Oncology at [address] [address] 05/04/2024 10:45 AM EST Scheduled View Only Radiation Oncology at [address] [address] 05/05/2024 1:00 PM EST Scheduled View Only Radiation Oncology at [address] [address] 05/05/2024 1:15 PM EST Office Visit Radiation Oncology at [address] [address] [facility] [place] [address] 05/06/2024 1:00 PM EST Scheduled View Only Radiation Oncology at [address] [address] 05/07/2024 1:00 PM EST Scheduled View Only Radiation Oncology at [address] [address] 05/08/2024 1:00 PM EST Scheduled View Only Radiation Oncology at [address] [address] 05/11/2024 11:30 AM EST Scheduled View Only Radiation Oncology at [address] [address] 01/13/2025 1:00 PM EST Office Visit Hematology/Oncology at [address] [address] Lee [address] [facility] DR HEMATOLOGY [place] [address] [facility] DR HEMATOLOGY [place] [address] documented as of this encounter Visit Diagnoses Not on filedocumented in this encounter Care Teams Carbon Paper Coating Machine Setter Relationship Specialty Start Date End Date Julia Chatterjee MD [facility] [address] [place] [id number] PCP - General 01/31/10 documented as of this encounter
--- OUTSIDE RECORDS SUMMARY | 2024-04-17 01:20 | XMS_ITS | Encounter Summary ---
Author Organization [facility] Address [facility] [address] Care Team Providers Care Trimmer Tailer Name Role Phone Julia Chatterjee MD Primary Care Provider [phone] Encounter Details Date Type Department Care Team (Latest Contact Info) Description 04/07/2024 Travel Social History Tobacco Use Types Packs/Day [...] doctor or pharmacy? Never 03/16/2024 [facility] Utilities Answer Date Recorded In the [...] were you homeless or living in a assisted (including now)? No 03/16/2024 [facility] IPV Inpatient [...] EST Scheduled View Only Radiation Oncology at [address] [address] 04/20/2024 12:45 PM EST Scheduled View Only Radiation Oncology at [address] [address] 04/21/2024 10:45 AM EST Scheduled View Only Radiation Oncology at [address] [address] 04/21/2024 11:00 AM EST Office Visit Radiation Oncology at [address] [address] Radha Casiano MD [facility] [place] [address] 04/22/2024 3:00 PM EST Scheduled View Only Radiation Oncology at [address] [address] 04/23/2024 3:00 PM EST Scheduled View Only Radiation Oncology at [address] [address] 04/24/2024 3:00 PM EST Scheduled View Only Radiation Oncology at [address] [address] 04/27/2024 11:15 AM EST Scheduled View Only Radiation Oncology at [address] [address] 04/28/2024 11:30 AM EST Scheduled View Only Radiation Oncology at [address] [address] 04/28/2024 12:00 PM EST Office Visit Radiation Oncology at [address] [address] Radha Casiano MD [facility] [place] [address] 04/28/2024 2:00 PM EST Office Visit Cardiology at [address] [place] [address] Letty Montejo APRN [facility] [place] [address] 04/29/2024 11:15 AM EST Scheduled View Only Radiation Oncology at [address] [address] 04/30/2024 11:30 AM EST Scheduled View Only Radiation Oncology at [address] [address] 05/01/2024 11:15 AM EST Scheduled View Only Radiation Oncology at [address] [address] 05/04/2024 10:45 AM EST Scheduled View Only Radiation Oncology at [address] [address] 05/05/2024 1:00 PM EST Scheduled View Only Radiation Oncology at [address] [address] 05/05/2024 1:15 PM EST Office Visit Radiation Oncology at [address] [address] Radha Casiano MD [facility] DR [place] [address] 05/06/2024 1:00 PM EST Scheduled View Only Radiation Oncology at [address] [address] 05/07/2024 1:00 PM EST Scheduled View Only Radiation Oncology at [address] [address] 05/08/2024 1:00 PM EST Scheduled View Only Radiation Oncology at [address] [address] 05/11/2024 11:30 AM EST Scheduled View Only Radiation Oncology at [address] [address] 01/13/2025 1:00 PM EST Office Visit Hematology/Oncology at [address] [address] Lee Ann Jay MD [facility] DR HEMATOLOGY [place] [address] Leti Anderson APRN [facility] DR HEMATOLOGY [place] [address] documented as of this encounter Visit Diagnoses Not on filedocumented in this encounter Care Teams Trimmer Tailer Relationship Specialty Start Date End Date Julia Chatterjee MD [facility] [address] [place] [id number] PCP - General 01/31/10 documented as of this encounter
--- OUTSIDE RECORDS SUMMARY | 2024-04-17 01:20 | XMS_ITS | Encounter Summary ---
Author Organization [facility] Address [facility] [place] [address] Care Team Providers Care Pinmaker Name Role Phone Julia Chatterjee MD Primary Care Provider [phone] Reason for Visit * Reason Comments Follow-up Encounter Details Date Type Department Care Team (Late st Contact Info) Description 03/13/2024 10:30 AM EST Office [place] [address] Martina Pugh MD [facility] [place] [address] Malignant neoplasm of right female breast, unspecified [...] Sign Reading Time Taken Comments Blood Pressure 130/68 03/13/2024 10:22 AM EST Pulse 68 03/13/2024 10:22 AM EST Temperature 36.3 ??C (97.3 ??F) 03/13/2024 10:[address] Respiratory Rate 16 03/13/2024 10:22 AM EST Oxygen Saturation 97% 03/13/2024 10:22 AM EST Inhaled Oxygen Concentration - - Weight 67.8 kg (149 lb 6.4 oz) 03/13/2024 10:22 AM EST Height 160 cm (5' 2.99) 03/13/2024 10:22 AM EST Body Mass Index 26.47 03/13/2024 10:22 AM EST documented in this encounter Progress Notes * Martina Pugh MD - 03/13/2024 10:30 AM EST BREAST SURGICAL ONCOLOGY Leti Parry is a 73 y.o. woman s/p right partial mastectomy on 02/18 who is here today for routine postoperative visit. SUBJECTIVE: Patient reports doing well overall, and has no complaints. She denies any new symptoms such as fever, wound problems, or drainage. I reviewed her pathology report with her and gave her a copy. OBJECTIVE: Vital signs: Patient Vitals for the past 24 hrs: Temp Pulse Resp BP SpO2 03/13/24 1022 36.3 ??C (97.3 ??F) 68 16 130/68 97 % General: She is a well-developed, and well-nourished female in no apparent distress, alert and oriented x3. Breast exam: A targeted right breast exam was performed. Incision: clean, dry, intact with no drainage, erythema, or hematoma. PATHOLOGY: Final Diagnosis A. Breast, right, partial mastectomy: [...] anterior margin, excision: - Benign breast tissue. at 1613 Synoptic Report DCIS OF THE BREAST: Resection 8th Edition - Protocol posted: 2DCIS OF THE BREAST: RESECTION - A SPECIMEN Procedure Excision (less than total mastectomy) Specimen Laterality Right TUMOR Histologic Type Ductal carcinoma in situ Size (Extent) of DCIS Estimated size (extent) of DCIS is at least (Millimeters): 50 mm Architectural Patterns Comedo Cribriform Micropapillary Solid Nuclear Grade Grade III (high) Necrosis Present, central (expansive comedo necrosis) Microcalcifications Present in DCIS MARGINS Margin Status DCIS present at margin Margin(s) Involved by DCIS Superior: in specimen A. See additional superior margin excision (specimen C). Inferior: in specimen A. Additional inferior margin excision negative. Distance from DCIS to Anterior Margin Less than: 1 mm Distance from DCIS to Posterior Margin Greater than: 2 mm Distance from DCIS to Medial Margin Greater than: 2 mm Distance from DCIS to Lateral Margin 2 mm REGIONAL LYMPH NODES Regional Lymph Node Status Not applicable (no regional lymph nodes submitted or found) PATHOLOGIC STAGE CLASSIFICATION (pTNM, AJCC 8th Edition) Reporting of pT, pN, and (when applicable) pM categories is based on information available to the pathologist at the time the report is issued. As per the AJCC (Chapter 1, 8th Ed.) it is the managingphysician???s responsibility to establish the final pathologic stage based upon all pertinent information, including but potentially not limited to this pathology report. pT Category pTis (DCIS) pN Category pN not assigned (no nodes submitted or found) . ASSESSMENT: Leti is here for a postoperative check-up. Overall, she is doing well. I reviewed her pathology report with her and gave her a copy. 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 Other margins adequate with at least 2mm when incorporating the shave margins. We discussed these results and the general recommendation for 2mm margins and options of returning to the OR for margin re-excision at the superior margin vs proceeding with adjuvant therapy with the understanding that local recurrence rate may be higher. Patient had difficulty with surgery with new onset Afib and labile HR/BP during surgery (now wearing a holter monitor) so additional surgery in her is not without risk. We discussed the fact that if multiple margins were positive or close I'd feel more strongly about re-excision, but given the single close margin, proceeding with adjuvant therapy without additional surgery is also reasonable. She also sounds amenable to radiationand adjuvant endocrine therapy. After this discussion patient elected to proceed with adjuvant therapy alone without additional surgery. PLAN: - Follow-up with me in 6 months for a clinical exam and bilateral diagnostic mammogram - The following appointments have been scheduled: Medical oncology - Dr. Shepherd on 03/19 Radiation oncology - Dr. Casiano on 03/16 Martina Pugh MD 03/13/2024 documented in this encounter Plan of Treatment Upcoming Encounters Date Type Department Care Team (Late st Contact Info) Description 04/17/2024 2:30 PM EST Scheduled View Only Radiation Oncology at [address] [address] 04/20/2024 12:45 PM EST Scheduled View Only Radiation Oncology at [address] [address] 04/21/2024 10:45 AM EST Scheduled View Only Radiation Oncology at [address] [address] 04/21/2024 11:00 AM EST Office Visit Radiation Oncology at [address] [address] Radha Casiano MD [facility] [place] [address] 04/22/2024 3:00 PM EST Scheduled View Only Radiation Oncology at [address] [address] 04/23/2024 3:00 PM EST Scheduled View Only Radiation Oncology at [address] [address] 04/24/2024 3:00 PM EST Scheduled View Only Radiation Oncology at [address] [address] 04/27/2024 11:15 AM EST Scheduled View Only Radiation Oncology at [address] [address] 04/28/2024 11:30 AM EST Scheduled View Only Radiation Oncology at [address] [address] 04/28/2024 12:00 PM EST Office Visit Radiation Oncology at [address] [address] Radha Casiano MD [facility] [place] [address] 04/28/2024 2:00 PM EST Office Visit Cardiology at [address] [address] Letty Montejo APRN [facility] [place] [address] 04/29/2024 11:15 AM EST Scheduled View Only Radiation Oncology at [address] [address] 04/30/2024 11:30 AM EST Scheduled View Only Radiation Oncology at [address] [address] 05/01/2024 11:15 AM EST Scheduled View Only Radiation Oncology at [address] [address] 05/04/2024 10:45 AM EST Scheduled View Only Radiation Oncology at [address] [address] 05/05/2024 1:00 PM EST Scheduled View Only Radiation Oncology at [address] [address] 05/05/2024 1:15 PM EST Office Visit Radiation Oncology at [address] [address] Radha Casiano MD [facility] [place] [address] 05/06/2024 1:00 PM EST Scheduled View Only Radiation Oncology at [address] [address] 05/07/2024 1:00 PM EST Scheduled View Only Radiation Oncology at [address] [address] 05/08/2024 1:00 PM EST Scheduled View Only Radiation Oncology at [address] [address] 05/11/2024 11:30 AM EST Scheduled View Only Radiation Oncology at [address] [address] 01/13/2025 1:00 PM EST Office Visit Hematology/Oncology at [address] [address] Lee Ann Jay MD [facility] DR HEMATOLOGY [place] [address] Leti Anderson APRN [facility] DR HEMATOLOGY [place] [address] Scheduled Orders Name Type Priority Associated Diagnoses Orde r Schedule Mammo Diagnostic CAD and Anurag Bilateral Imaging Routine Malignant neoplasm of right female breast, unspecified estrogen receptor status, unspecified site of breast Malignant neoplasm of central portion of right breast in female, estrogen receptor positive Expected: 09/10/2024, Expires: 09/10/2025 documented as of this encounter Visit Diagnoses Diagnosis Malignant neoplasm of right female breast, unspecified estrogen receptor status, unspecified site of breast Malignant neoplasm of central portion of right breast in female, estrogen receptor positive documented in this encounter Care Teams Pinmaker Relationship Specialty Start Date End Date Julia Chatterjee MD [address] [place] [address] PCP - General 01/31/10 documented as of this encounter
--- OUTSIDE RECORDS SUMMARY | 2024-04-17 01:20 | XMS_ITS | Encounter Summary ---
Author Organization [facility] [place] [address] Care Team Providers Care Is Architect Name Role Phone Julia hCatterjee MD Primary Care Provider [phone] Reason for Referral * Consultation (Routine) - Authorized Specialty Diagnoses / Procedures Referred By Contac t Referred To Contact Radiation Oncology Diagnoses Malignant neoplasm of upper-outer quadrant of right breast in female, estrogen receptor positive Procedures Simulation for Radiation Therapy Planning Radha Casiano MD [facility] [place] [address] [facility] [place] [address] Referral ID Status Reason Start Date Expiration Date Visits Requested Visits Authorized [id number] Authorized Consult, Test & Treat 03/16/2024 03/16/2025 1 21 Reason for Visit * Reason Comments Radiation Consult * Consultation (Routine) - Closed Specialty Diagnoses / Procedures Referred By Contac t Referred To Contact Radiation Oncology Diagnoses Breast cancer Procedures S/P R PAST MAST DOS 02/18 Martina Pugh MD [facility] [place] [address] [facility] Office [address] [place] [phone] Referral ID Status Reason Start Date Expiration Date Visits Re quested Visits Authorized [id number] Closed 01/29/2024 01/28/2025 1 1 Encounter Details Date Type Department Care Team (Late st Contact Info) Description 03/16/2024 11:00 AM EST Office Visit Radiation Oncology at [address] [phone] Radha Casiano MD [facility] [place] [address] Malignant neoplasm of upper-outer quadrant [...] from your doctor or pharmacy? Never 03/16/2024 [facility] Utilities Answer Date Recorded In the past 12 months has th e [employer], gas, oil, or water Weavly threatened to shut off services in your [...] any time in the past 12 m [facility], were you homeless or living in a custodial (including now)? No 03/16/2024 IPV Inpatient Questions [...] Sign Reading Time Taken Comments Blood Pressure 117/70 03/16/2024 11:00 AM EST Pulse 74 03/16/2024 11:00 AM EST Temperature 36.4 ??C (97.5 ??F) 03/16/2024 11:[address] Respiratory Rate 16 03/16/2024 11:00 AM EST Oxygen Saturation 97% 03/16/2024 11:00 AM EST Inhaled Oxygen Concentration - - Weight 67.7 kg (149 lb 3.2 oz) 03/16/2024 11:00 AM EST Height - - Body Mass Index 26.44 03/13/2024 10:22 AM EST documented in this encounter Patient Instructions * Patient Instructions* Radha Casiano MD - 03/16/2024 11:00 AM EST Someone will call you to schedule Ctsimulation @ [facility], Radiation Oncology, 2K, on F., 03/27/24. Do not take primrose oil or vitamin C supplement during radiotherapy. documented in this encounter Progress Notes * Elvia Montalvo RN - 03/16/2024 11:00 AM EST RADIATION ONCOLOGY NURSING INITIAL NURSING ASSESSMENT IDENTIFICATION: Leti Parry is a 73 y.o. year-old female with right breast cancer PRESENTING SYMPTOMS/CHIEF COMPLAINT: NPW REVIEW OF SYSTEMS: Review of Systems - Oncology 03/16/2024 10:22 AM REVIEW OF SYSTEMS Constitutional None of the above Eyes None of the above Respiratory None of the above Cardiovascular Fluttering heart beat (heart palpitations) Gastrointestinal None of the above Skin, hair None of the above Musculoskeletal None of the above Neurological None of the above Hematologic / Lymphatic None of the above Genitourinary Vaginal dryness Pain with sexual intercourse IN THE PAST 12 MONTHS HAVE YOU: Fallen more than one time? No Injured yourself as result of the fall? N/A Experienced difficulty with walking/problems with balance? No Do you use any assistive devices? No Any history of collagen vascular diseases:No Any Implanted Devices/Hardware: No If yes please put alert in ARIA patient summary Prior Radiotherapy: No Prior Chemotherapy: No Prior Hormone Therapy: No Other: Patient denies history of Scleroderma and Lupus LEARNING ASSESSMENT REVIEWED: Yes ADVANCED DIRECTIVE: Not discussed today. PAIN ASSESSMENT: 0 out of 10 *eD-H Adult PCS Flow Sheet if 4 or above SOCIAL ASSESSMENT: See ED social assessment information entered. Support Systems: Family. Here today with spouse Barriers to treatment: None identified. Is currently wearing heart monitor until 03/25/24 Referrals/Interventions: youth care worker visit on day per routine. RADIATION SPECIFIC TEACHING: [facility] Radiation Therapy and You provided by Dr. Casiano today Site specific teaching : Breast teaching to be done by nursing on day of simulation Other: PLAN: Per Dr. Casiano * Radha Casiano MD - 03/16/2024 11:00 AM EST Images from the original note were not included. CC: Referred by Dr. Pugh for eval for xrt for breast ca. HPI: Leti is a 73 y/o f who presented w/R breast abnlty on screening mmg. DH interp 10/24/23 B screening mmg and 10/25/23 dx'ic R mmg, R breast US: 4 cm Microcalcifications Upper Outer Quadrant 10 OClock 6 cm from the nipple. 12/04/23 stereotactic core needle bx R breast 4 cm calcifications @ 10 O'Clock, posterior. Path: DCIS, ER+. 12/24/23 MRI B breast: Left breast: Approximately 1 cm enhancing mass in the upper outer quadrant. Recommend MR directed ultrasound to find a correlate for possible biopsy. If ultrasound is negative, MR guided biopsy would be recommended. Right breast: Known right breast malignancy is associated with nonmass enhancement extending 6 x 3.6 x 2 cm. If breast conservation is pursued, an additional biopsy of the most anterior area of NME can be performed with MRI guidance. 12/26/23 Dr. Pugh exam w/o breast mass/adenopathy. 01/01/24 US L breast: FINDINGS: At approximately 2:30, about 6 cm from the nipple, there is an elliptical, circumscribed, hypoechoic, parallel, nonshadowing mass measuring 0.9 x 1.0 x 0.3 cm. This corresponds approximately to the MRI finding in location and shape and shows benign sonographic features. IMPRESSION Benign-appearing mass which likely corresponds to the MRI finding. However, the patient is scheduled to have MR guided biopsy of an additional area in her right breast and it may be most prudent to also pursue left-sided MR guided biopsy to be absolutely certain of correlation and diagnosis prior to definitive treatment of the contralateral cancer. 01/15/24 Dr. 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 If xrt required for breast ca, no Heme-Onc precautions needed. 01/16/24 core needle bx 4 cm group of microcalcifications, 10:00 radian R breast, posterior depth. The anterior margin of nonmass enhancement was targeted for biopsy. Core needle bx 1 cm L breast Mass left upperouter quadrant, approximately 2:00 radian, middle depth. Path: L breast bx benign. R breast bx w/DCIS, ER+. 02/19/24 R breast lumpectomy w/radial incision in UOQ, posterior margin included pec fascia & down to serratus. Path: DCIS, gr 3, RM neg, closest RM 1 mm (superior), other RM >= 2 mm, pTis. 03/13/24 Dr. Pugh, rtc 6 mos w/mmg. S: Healing well. No pain. No hand/arm swelling. ROM arms around shoulders good. Energy level ok. Accompanied by . No past medical history on file. No lupus/scleroderma. No prior xrt. Past Surgical History: Procedure Laterality Date CT ASPIRATION LIVER 09/02/2019 CT Guided Aspiration Liver 09/02/2019 [facility] RAD CAT SCAN IR DRAIN CHECK/CHANGE/REMOVE 09/28/2019 IR Drain Check/Change/Remove 09/28/2019 Cliff Langston MD [facility] INTERVENTIONL RAD MAMMO STEREOTACTIC BIOPSY RIGHT N/A 12/04/2023 Mammo Stereotactic Biopsy Right 12/04/2023 Tamir Fletcher MD [facility] RAD MAMMOGRAPHY MRI GUIDED BIOPSY BREATS VACUUM ASSISTED W CLIP PLACEMENT BILATERAL Bilateral 01/16/2024 MRI Guided Biopsy Breast Vacuum Assisted w Clip Placement Bilateral 01/16/2024 [facility] RAD MRI PRO BONE MARROW ASPIRATION W/BX THROUGH SAME INCISION/SITE Right 01/08/2017 ([facility]) BONE MARROW ASP PERFORMED W/BX THRU BX INCISION (WRVU 0.16) performed by Lee Ann Jay MD at [facility] OSC PRO COLONOSCOPY, BIOPSY 07/05/2011 COLONOSCOPY FLEXIBLE, WITH BX performed by AYAZ CASTRO at [facility] ENDOSCOPY PRO COLONOSCOPY, BIOPSY N/A 10/22/2019 COLONOSCOPY FLEXIBLE, WITH BX (WRVU 3.66) performed by Yola Oliveros MD at [facility] ENDOSCOPY PRO COLONOSCOPY, BIOPSY N/A 04/12/2022 COLONOSCOPY FLEXIBLE, WITH BX (WRVU 3.66) performed by Yola Oliveros MD at [facility] ENDOSCOPY PRO COLONOSCOPY, REMV LESN, SNARE 07/05/2011 COLONOSCOPY, POLYPECTOMY, REMOVAL LESION BY SNARE performed by AYAZ CASTRO at [facility] ENDOSCOPY PRO COLONOSCOPY, REMV LESN, SNARE N/A 04/12/2022 COLONOSCOPY, POLYPECTOMY, REMOVAL LESION BY SNARE (WRVU 4.67) performed by Yola Oliveros MD at [facility] ENDOSCOPY PRO DIAGNOSTIC BONE MARROW BIOPSIES Right 01/08/2017 ([facility] MSURG) BONE MARROW,BIOPSY (WRVU 1.37) performed by Lee Ann Jay MD at [facility] OSC PRO INTRAOP SENTINEL LYMPH ID W/DYE INJECTION Right 02/19/2024 INTRAOPERATIVE ID (MAPPING) SENTINEL LYMPH NODE,INCLUDES INJECTION (WRVU 2.5) performed by Martina Pugh MD at [facility] OSC PRO MASTECTOMY PARTIAL Right 02/19/2024 MASTECTOMY PARTIAL (WRVU 10.13) performed by Martina Pugh MD at [facility] OSC PRO SIGMOIDOSCOPY, DIAGNOSTIC N/A 09/02/2019 FLEXIBLE SIGMOIDOSCOPY performed by Ayaz Castro MD at [facility] ENDOSCOPY Your Medications Accurate as of March 16, 2024 11:12 AM. If you have any questions, ask your nurse or doctor. Continued medications, unchanged Dose Details acetaminophen 500 mg tablet Commonly known as: Tylenol Take 2 tablets by mouth every 6 hours as needed for Pain. 1,000 mg Refills: 0 ARNICA 3X ORAL Take by mouth as needed. Refills: 0 ascorbic acid (Vitamin C) 500 mg tablet Commonly known as: Vitamin C Take 500 mg by mouth 2 times daily. 500 mg Refills: 0 ibuprofen 600 mg tablet Commonly known as: Advil Take 1 tablet by mouth every 6 hours as needed for Pain. 600 mg Refills: 0 magnesium 250 mg tablet Take by mouth. Refills: 0 PRIMROSE OIL ORAL Take by mouth. Refills: 0 selenium 50 mcg tablet Take 50 mcg by mouth. 50 mcg Refills: 0 * UNABLE TO FIND Digestive enzymes Refills: 0 * UNABLE TO FIND Denatrofin Refills: 0 * UNABLE TO FIND Eleuthroel DGL Refills: 0 VITAMIN D3 ORAL Take 4,000 Units by mouth daily. 4,000 Units Refills: 0 ZINC-220 ORAL Take by mouth. Refills: 0 * This list has 3 medication(s) that are the same as other medications prescribed for you. Read thedirections carefully, and ask your doctor or other care provider to review them with you. Physical Exam Constitutional: General: She is not in acute distress. Comments: BP 117/70 (Patient Position: Sitting) Pulse 74 Temp 36.4 ??C (97.5 ??F) Resp 16 Wt 67.7 kg (149 lb 3.2 oz) SpO2 97% BMI 26.44 kg/m?? HENT: Head: Normocephalic. Eyes: General: No scleral icterus. Right eye: No discharge. Left eye: No discharge. Extraocular Movements: Extraocular movements intact. Conjunctiva/sclera: Conjunctivae normal. Pulmonary: Effort: Pulmonary effort is normal. No respiratory distress. Breath sounds: No stridor. Chest: Breasts: Right: Skin change (Dark nguyen ecchymosis LOQ) present. No inverted nipple, mass, nipple discharge or tenderness. Left: No inverted nipple, mass, nipple discharge, skin change or tenderness. Musculoskeletal: General: No swelling or tenderness. Normal range of motion. Cervical back: Normal range of motion and neck supple. No tenderness. Lymphadenopathy: Head: Right side of head: No submental, submandibular, preauricular, posterior auricular or occipital adenopathy. Left side of head: No submental, submandibular, preauricular, posterior auricular or occipital adenopathy. Cervical: No cervical adenopathy. Upper Body: Right upper body: No supraclavicular or axillary adenopathy. Left upper body: No supraclavicular or axillary adenopathy. Neurological: Mental Status: She is alert and oriented to person, place, and time. Coordination: Coordination normal. Gait: Gait normal. Psychiatric: Mood and Affect: Mood normal. Behavior: Behavior normal. Thought Content: Thought content normal. Judgment: Judgment normal. A: Breast ca, R, DCIS, gr 3, ER+, 5 cm, s/p lumpectomy w/1 close margin (1 mm), pTis. Per [facility] nomogram, 20% risk of recurrence @ 10 yrs without adjuvant tx; 8% risk with adjuvant xrt.Half of recurrences invasive. Xrt recommended to improve likelihood of cure. Xrt would be given in 20 fxs. Possible side effects of xrt to breast discussed, w/acute/immediate side effects including: Pinkening/soreness/peeling of skin in treated area; swelling/soreness of treated breast; cough; shortness of breath; tiredness. Acute/immediate side effects usually temporary. Late/intermediate accountant side effects to breast discussed include: Treated breast may shrink, become firmer & sit higher on chest; achiness/stiffness of chest wall on treated side; rib fracture on treated side; CT after xrt may show scarring w/in small volume of lung on treated side; radiotherapy associated 2nd malignancy. Risk of occurrence of late/snf side effects small. Need for CTsim prior to xrt discussed. P: She would like to proceed w/xrt & will return 03/27/24 for Ctsim. Advised to not take vit C or primrose oil supplement during xrt. Dr. Joao ramos for hormonal tx 04/07/24. I certify spending at least 50 mins in providing care to this patient today as reflected by the following activities: - review of patient's medical record in the chart, including interpretation of imaging, laboratory and pathologic studies referenced above - documenting the outcome of today's visit as above documented in this encounter Plan of Treatment Upcoming Encounters Date Type Department Care Team (Late st Contact Info) Description 04/17/2024 2:30 PM EST Scheduled View Only Radiation Oncology at [address] [phone] 04/20/2024 12:45 PM EST Scheduled View Only Radiation Oncology at [address] [phone] 04/21/2024 10:45 AM EST Scheduled View Only Radiation Oncology at [address] [phone] 04/21/2024 11:00 AM EST Office Visit Radiation Oncology at [address] [phone] Radha Casiano MD [facility] [place] [address] 04/22/2024 3:00 PM EST Scheduled View Only Radiation Oncology at [address] [phone] 04/23/2024 3:00 PM EST Scheduled View Only Radiation Oncology at [address] [phone] 04/24/2024 3:00 PM EST Scheduled View Only Radiation Oncology at [address] [phone] 04/27/2024 11:15 AM EST Scheduled View Only Radiation Oncology at [address] [phone] 04/28/2024 11:30 AM EST Scheduled View Only Radiation Oncology at [address] [phone] 04/28/2024 12:00 PM EST Office Visit Radiation Oncology at [address] [phone] Radha Casiano MD [facility] [place] [address] 04/28/2024 2:00 PM EST Office Visit Cardiology at [address] [place] [phone] Letty Montejo APRN [facility] [place] [address] 04/29/2024 11:15 AM EST Scheduled View Only Radiation Oncology at [address] [phone] 04/30/2024 11:30 AM EST Scheduled View Only Radiation Oncology at [address] [phone] 05/01/2024 11:15 AM EST Scheduled View Only Radiation Oncology at [address] [phone] 05/04/2024 10:45 AM EST Scheduled View Only Radiation Oncology at [address] [phone] 05/05/2024 1:00 PM EST Scheduled View Only Radiation Oncology at [address] [phone] 05/05/2024 1:15 PM EST Office Visit Radiation Oncology at [address] [phone] Radha Casiano MD [facility] [place] [address] 05/06/2024 1:00 PM EST Scheduled View Only Radiation Oncology at [address] [phone] 05/07/2024 1:00 PM EST Scheduled View Only Radiation Oncology at [address] [phone] 05/08/2024 1:00 PM EST Scheduled View Only Radiation Oncology at [address] [phone] 05/11/2024 11:30 AM EST Scheduled View Only Radiation Oncology at [address] [phone] 01/13/2025 1:00 PM EST Office Visit Hematology/Oncology at [address] [phone] Lee Ann Jay MD [facility] [place] [address] Leti Anderson APRN [facility] [place] [address] Scheduled Orders Name Type Priority Associated Diagnoses Orde r Schedule Simulation for Radiation Therapy Planning Radiation Oncology Routine Malignant neoplasm of upper-outer quadrant of right breast in female, estrogen receptor positive Expected: 03/27/2024, Expires: 09/26/2024 documented as of this encounter Visit Diagnoses Diagnosis Malignant neoplasm of upper-outer quadrant of right breast in female, estrogen receptor positive documented in this encounter Care Teams Is Architect Relationship Specialty Start Date End Date Julia Chatterjee MD [employer] [address] [place] [address] PCP - General 01/31/10 documented as of this encounter
--- OUTSIDE RECORDS SUMMARY | 2024-04-17 01:20 | XMS_ITS | Encounter Summary ---
Author Organization [facility] Address [facility] [place] [place] [address] Care Team Providers Care Retail Field Supervisor Name Role Phone Julia Chatterjee MD Primary Care Provider [phone] Encounter Details Date Type Department Care Team (Late st Contact Info) Description 02/19/2024 11:56 AM EST - 02/19/2024 3:16 PM EST Surgery [facility] [address] Martina Pugh MD [facility] [place] [address] MASTECTOMY PARTIAL (WRVU 10.39) Social History Tobacco Use Types Packs/Day Years [...] Sign Reading Time Taken Comments Blood Pressure 109/71 02/19/2024 3:15 PM EST Pulse 115 02/19/2024 3:15 PM EST Temperature 36.5 ??C (97.7 ??F) 02/19/2024 2:52 PM ES T Respiratory Rate 18 02/19/2024 3:15 PM EST Oxygen Saturation 92% 02/19/2024 3:15 PM EST Inhaled Oxygen Concentration - - [...] the anesthesiologist who cared for you at [facility] [place] [phone] or [phone] If you experience chest pain, difficulty breathing, [...] closest emergency room or call the hospital open developer operator at [phone] and ask for physician electronic die maker covering for your physician. Questions or problems after 5pm or on a weekend: Call the [facility] open developer operator at and ask for the physician electronic die maker covering for your doctor. * Patient Instructions* [...] the surgery clinic at or send a Go[employer] message for any post-operative concerns, including: excessive bleeding, drainage at the operative site, fevers, chills, increased pain thatis not relieved by pain medications, persistent nausea or vomiting, shortness of breath. After hours and on weekends, please call the paging open developer operator at [phone] and ask for the General Surgery resident electronic die maker. The clinic and [employer]hart messages are not covered after hours or on weekends. * Attachments The following attachments cannot be sent through Care Everywhere. * Metoprolol/Hydrochlorothiazide Oral Tablet (METOPROLOL/HYDROCHLOROTHIAZIDE - ORAL) (Iranian) documented in this encounter Medications at Time [...] care. Asymptomatic of atrial fibrillation while at [facility], Dr. Dolan was at bedside to evaluate. [...] LIVER 09/02/2019 CT Guided Aspiration Liver 09/02/2019 [facility] RAD CAT SCAN IR DRAIN CHECK/CHANGE/REMOVE 09/28/2019 IR Drain Check/Change/Remove 09/28/2019 Cliff Langston MD [facility] INTERVENTIONL RAD MAMMO STEREOTACTIC BIOPSY RIGHT N/A 12/04/2023 Mammo Stereotactic Biopsy Right 12/04/2023 Tamir Fletcher MD [facility] RAD MAMMOGRAPHY PRO BONE MARROW ASPIRATION W/BX THROUGH SAME INCISION/SITE Right 01/08/2017 ([facility] BONE MARROW ASP PERFORMED W/BX THRU BX INCISION (WRVU 0.16) performed by Lee Ann Jay MD at [facility] OSC PRO COLONOSCOPY, BIOPSY 07/05/2011 COLONOSCOPY FLEXIBLE, WITH BX performed by AYAZ CASTRO at [facility] ENDOSCOPY PRO COLONOSCOPY, BIOPSY N/A 10/22/2019 COLONOSCOPY FLEXIBLE, WITH BX (WRVU 3.66) performed by Yola Oliveros MD at [facility] ENDOSCOPY PRO COLONOSCOPY, BIOPSY N/A 04/12/2022 COLONOSCOPY FLEXIBLE, WITH BX (WRVU 3.66) performed by Yola Oliveros MD at [facility] ENDOSCOPY PRO COLONOSCOPY, REMV LESN, SNARE 07/05/2011 COLONOSCOPY, POLYPECTOMY, REMOVAL LESION BY SNARE performed by AYAZ CASTRO at [facility] ENDOSCOPY PRO COLONOSCOPY, REMV LESN, SNARE N/A 04/12/2022 COLONOSCOPY, POLYPECTOMY, REMOVAL LESION BY SNARE (WRVU 4.67) performed by Yola Oliveros MD at [facility] ENDOSCOPY PRO DIAGNOSTIC BONE MARROW BIOPSIES Right 01/08/2017 ([facility]) BONE MARROW,BIOPSY (WRVU 1.37) performed by Lee Ann Jay MD at [facility] OSC PRO SIGMOIDOSCOPY, DIAGNOSTIC N/A 09/02/2019 FLEXIBLE SIGMOIDOSCOPY performed by Ayaz Castro MD at [facility] ENDOSCOPY MEDICATIONS: UNABLE TO FIND, ascorbic acid [...] core biopsy specimens were obtained using a [employer] 9g device. Biopsy specimens were radiographed. The [...] Pugh MD - 02/19/2024 12:34 PM EST [facility] Operative Note Patient Name: Leti Parry : [id number] MR#: [id number] Case Date: 02/19/2024 Surgeon: Surgeons and Role: [...] end of the procedure. Pursuant to federal Medicarebilling regulations, I attest that I was personally [...] Scheduled View Only Radiation Oncology at [address] [phone] 04/20/2024 12:45 PM EST Scheduled View Only Radiation Oncology at [address] [address] 04/21/2024 10:45 AM EST Scheduled View Only Radiation Oncology at [address] [address] 04/21/2024 11:00 AM EST Office Visit Radiation Oncology at [address] [address] Radha Casiano MD [facility] [place] [address] 04/22/2024 3:00 PM EST Scheduled View Only Radiation Oncology at [address] [address] 04/23/2024 3:00 PM EST Scheduled View Only Radiation Oncology at [address] [address] 04/24/2024 3:00 PM EST Scheduled View Only Radiation Oncology at [address] [address] 04/27/2024 11:15 AM EST Scheduled View Only Radiation Oncology at [address] [address] 04/28/2024 11:30 AM EST Scheduled View Only Radiation Oncology at [address] [address] 04/28/2024 12:00 PM EST Office Visit Radiation Oncology at [address] [address] Radha Casiano MD [facility] [place] [place] [address] 04/28/2024 2:00 PM EST Office Visit Cardiology at [address] [place] [phone] [address] Letty Montejo APRN [facility] [place] [address] 04/29/2024 11:15 AM EST Scheduled View Only Radiation Oncology at [address] [address] 04/30/2024 11:30 AM EST Scheduled View Only Radiation Oncology at [address] [address] 05/01/2024 11:15 AM EST Scheduled View Only Radiation Oncology at [address] [address] 05/04/2024 10:45 AM EST Scheduled View Only Radiation Oncology at [address] [address] 05/05/2024 1:00 PM EST Scheduled View Only Radiation Oncology at [address] [address] 05/05/2024 1:15 PM EST Office Visit Radiation Oncology at [address] [address] Radha Casiano MD [facility] [place] [address] 05/06/2024 1:00 PM EST Scheduled View Only Radiation Oncology at [address] [address] 05/07/2024 1:00 PM EST Scheduled View Only Radiation Oncology at [address] [address] 05/08/2024 1:00 PM EST Scheduled View Only Radiation Oncology at [address] [address] 05/11/2024 11:30 AM EST Scheduled View Only Radiation Oncology at [address] [address] 01/13/2025 1:00 PM EST Office Visit Hematology/Oncology at [address] [address] Lee Ann Jay MD [facility] DR HEMATOLOGY [place] [address] Leti Anderson APRN [facility] HEMATOLOGY [place] [address] Scheduled Referrals Name Type Priority Associated Diagnoses Order Schedule Referral to Cardiology Outpatient Referral Urgent Tachyarrhythmia Ordered: 02/19/2024 documented as of this encounter Procedures Procedure Name Priority Date/Time Associated Diagnosis Comments SURGICAL PATHOLOGY Routine 02/19/2024 1: 08 PM EST MODIFIER WITH NEEDLE LOC., LESION #1 02/19/2024 12:07 PM EST BREAST CANCER Intraop [place] Lymph Id W/Dye Injection (43345) 02/19/2024 12:07 PM EST BREAST CANCER Mastectomy Partial (22879) 02/19/2024 12:07 PM EST BREAST CANCER documented in this encounter Results * EKG 12 Lead (02/19/2024 4:28 PM EST) Ventricular rate 114 BPM MUSE SYSTEM Atrial Rate 192 BPM MUSE SYSTEM QRS Duration 84 ms MUSE SYSTEM Q-T Interval 346 ms MUSE SYSTEM QTC Calculated (Bezet) 476 ms MUSE SYSTEM Calculated R [place] -28 degrees MUSE SYSTEM Calculated T [place] -66 degrees MUSE SYSTEM INTERPRETATION Atrial fibrillation [...] Case Report Surgical Pathology Report ? Case: [id number] ? Authorizing Provider: ??Martina Pugh MD ?? Collected: ? 02/19/2024 1308 ? Ordering Location: ? [facility] ??Received: ?02/19/2024 1348 ? [facility] ? [facility] ? Pathologist: ? Ana Damon, DO ? Specimens: ?? A) - Breast, Right, Right partial Mastectomy ? B) - Breast, Right, Margin, Right posterior margin ? C) - Breast, Right, Margin, Right Superior margin ? D) - Breast, Right, Margin, Right Inferior margin ? E) - Breast, Right, Margin, Right Anterior margin ? 02/27/2024 4:13 PM EST [facility] Final Diagnosis A. Breast, [...] - Benign breast tissue. 02/27/2024 4:[address] [facility] Synoptic Report DCIS OF THE [...] nodes submitted or found) 02/27/2024 4:[address] [facility] Clinical Information A. Breast, Right, Right partial Mastectomy *Other - as specified in Clinical Information Right Breast Cancer 02/27/2024 4:[address] [facility] Gross Description A. Breast, Right, [...] tissue 30%, adipose tissue 70% Sections/Processi ng: Car Dumper Operator sections in 23 cassettes as follows: A1-A3: [...] 3 cassettes labeled E1-E3. 02/27/2024 4:[address] [facility] Result Note Routine 02/27/2024 4:[address] [facility] Tissue RIGHT BREAST STRUCTURE / Unknown [...] PATHOLOGY/CYTOLOG Y ORDERABLES [facility] [place] [address] documented in this encounter Visit Diagnoses Not [...] Given 02/19/2024 10:08 AM EST 40 mg BUPivacaine (pf) (Marcaine) (5 mg/mL) 0.5% injection PRN, Starting on Sat02/19/24 at 1341, Until Sat02/19/24 at 1948, Intra-Operative (Intra-Procedure), Routine Given 02/19/2024 1:41 PM EST 12 mLs 19- Surgical Site lidocaine (pf) (Xylocaine) (10 mg/mL) 1% injection PRN, Starting on Sat02/19/24 at 1341, Until Sat02/19/24 at 1948, Intra-Operative (Intra-Procedure), Routine Given 02/19/2024 1:41 PM EST 11 mLs 19- Surgical Site metoprolol tartrate (Lopressor) 50 mg tablet 1 [...] (New Bag - Prov ider: Orlando Urrutia, ROMERO) metoproloL tartrate (Lopressor) tablet 25 mg (COMPLETED) [...] (Due) documented in this encounter Care Teams Retail Field Supervisor Relationship Specialty Start Date End Date Julia Chatterjee MD [facility] [address] [place] [address] PCP - General 01/31/10 documented as of this encounter
--- OUTSIDE RECORDS SUMMARY | 2024-04-17 01:20 | XMS_ITS | Encounter Summary ---
Author Organization [facility] Address [facility] [place] [address] Care Team Providers Care Pottery Striper Name Role Phone Julia Chatterjee MD Primary Care Provider [phone] Reason for Visit * Reason Onset Date Comments Referral 02/21/2024 Encounter Details Date Type Department Care Team (Late st Contact Info) Description 02/21/2024 Telephone Cardiology at [address] [address] Raquel Asencio, exhauster Social History Tobacco Use Types Packs/Day Years [...] encounter Miscellaneous Notes * Telephone Encounter - Raquel Asencio RN - 02/21/2024 4:10 PM EST Call to Leti - she has seen her primary care provider. Tomorrow she will have a heart monitor applied (1 month duration) Leti accepts an appointment April 16 (the sooner times conflicted with a planned trip to [place]). documented in this encounter Plan of Treatment Upcoming Encounters Date Type Department Care Team (Late st Contact Info) Description 04/17/2024 2:30 PM EST Scheduled View Only Radiation Oncology at [address] [address] 04/20/2024 12:45 PM EST Scheduled View Only Radiation Oncology at [address] [address] 04/21/2024 10:45 AM EST Scheduled View Only Radiation Oncology at [address] [address] 04/21/2024 11:00 AM EST Office Visit Radiation Oncology at [address] [address] Radha Casiano MD [facility] RADIATION ONCOLOGY [place] [phone] 04/22/2024 3:00 PM EST Scheduled View Only Radiation Oncology at [address] [address] 04/23/2024 3:00 PM EST Scheduled View Only Radiation Oncology at [address] [address] 04/24/2024 3:00 PM EST Scheduled View Only Radiation Oncology at [address] [address] 04/27/2024 11:15 AM EST Scheduled View Only Radiation Oncology at [address] [address] 04/28/2024 11:30 AM EST Scheduled View Only Radiation Oncology at [address] [address] 04/28/2024 12:00 PM EST Office Visit Radiation Oncology at [address] [address] Radha Casiano MD [facility] [place] [address] 04/28/2024 2:00 PM EST Office Visit Cardiology at [address] [address] Letty Montejo APRN [facility] [place] [address] 04/29/2024 11:15 AM EST Scheduled View Only Radiation Oncology at [address] [address] 04/30/2024 11:30 AM EST Scheduled View Only Radiation Oncology at [address] [address] 05/01/2024 11:15 AM EST Scheduled View Only Radiation Oncology at [address] [address] 05/04/2024 10:45 AM EST Scheduled View Only Radiation Oncology at [address] [address] 05/05/2024 1:00 PM EST Scheduled View Only Radiation Oncology at [address] [address] 05/05/2024 1:15 PM EST Office Visit Radiation Oncology at [address] [address] Radha Casiano MD [facility] [place] [address] 05/06/2024 1:00 PM EST Scheduled View Only Radiation Oncology at [address] [address] 05/07/2024 1:00 PM EST Scheduled View Only Radiation Oncology at [address] [address] 05/08/2024 1:00 PM EST Scheduled View Only Radiation Oncology at [address] [address] 05/11/2024 11:30 AM EST Scheduled View Only Radiation Oncology at [address] [address] 01/13/2025 1:00 PM EST Office Visit Hematology/Oncology at [address] [address] Lee Ann Jay MD [facility] [place] [address] Leti Anderson APRN [facility] [address] [place] [address] documented as of this encounter Visit Diagnoses Not on filedocumented in this encounter Care Teams Pottery Striper Relationship Specialty Start Date End Date Julia Chatterjee MD [facility] [address] [place] [address] PCP - General 01/31/10 documented as of this encounter
--- OUTSIDE RECORDS SUMMARY | 2024-04-17 01:21 | XMS_ITS | Encounter Summary ---
[place] [address] Care Team Providers Care Welder/Fabricator Name Role Phone Julia Chatterjee MD Primary Care Provider [phone] Reason for Referral * Diagnostic Test (Routine) - Closed Specialty Diagnoses / Procedures Referred By Contac t Referred To Contact Radiology Diagnoses Malignant neoplasm of right female breast, unspecified estrogen receptor status, unspecified site of breast Procedures MRI Breast wwo Contrast Bilat Martina Pugh MD [facility] [place] [address] [place] [address] Referral ID Status Reason Start Date Expiration Date V isits Requested Visits Authorized [id number] Closed Specialty Service Requested 12/06/2023 06/04/2025 1 1 Encounter Details Date Type Department Care Team (Late st Contact Info) Description 12/06/2023 Orders Only [place] [address] Martina Pugh MD [facility] [place] [address] Malignant neoplasm of right female breast, unspecified estrogen receptor status, unspecified site of breast Social History Tobacco Use Types Packs/Day [...] Scheduled View Only Radiation Oncology at [address] [address] 04/20/2024 12:45 PM EST Scheduled View Only Radiation Oncology at [address] [address] 04/21/2024 10:45 AM EST Scheduled View Only Radiation Oncology at [address] [address] 04/21/2024 11:00 AM EST Office Visit Radiation Oncology at [address] [address] Radha Casiano MD [facility] [place] [address] 04/22/2024 3:00 PM EST Scheduled View Only Radiation Oncology at [address] [address] 04/23/2024 3:00 PM EST Scheduled View Only Radiation Oncology at [address] [address] 04/24/2024 3:00 PM EST Scheduled View Only Radiation Oncology at [address] [address] 04/27/2024 11:15 AM EST Scheduled View Only Radiation Oncology at [address] [address] 04/28/2024 11:30 AM EST Scheduled View Only Radiation Oncology at [address] [address] 04/28/2024 12:00 PM EST Office Visit Radiation Oncology at [address] [address] Radha Casiano MD [facility] RAD[place] [address] 04/28/2024 2:00 PM EST Office Visit Cardiology at [address] [place] [phone] Letty Montejo APRN [facility] [place] [address] 04/29/2024 11:15 AM EST Scheduled View Only Radiation Oncology at [address] [address] 04/30/2024 11:30 AM EST Scheduled View Only Radiation Oncology at [address] [address] 05/01/2024 11:15 AM EST Scheduled View Only Radiation Oncology at [address] [address] 05/04/2024 10:45 AM EST Scheduled View Only Radiation Oncology at [address] [address] 05/05/2024 1:00 PM EST Scheduled View Only Radiation Oncology at [address] [address] 05/05/2024 1:15 PM EST Office Visit Radiation Oncology at [address] [address] Radha Casiano MD [facility] [place] [address] 05/06/2024 1:00 PM EST Scheduled View Only Radiation Oncology at [address] [address] 05/07/2024 1:00 PM EST Scheduled View Only Radiation Oncology at [address] [address] 05/08/2024 1:00 PM EST Scheduled View Only Radiation Oncology at [address] [address] 05/11/2024 11:30 AM EST Scheduled View Only Radiation Oncology at [address] [address] 01/13/2025 1:00 PM EST Office Visit Hematology/Oncology at [address] [address] Lee Ann Jay MD [facility] H[place] [address] Leti Anderson APRN [facility] HEMATOLOG[place] [address] documented as of this encounter Results * MRI Breast wwo Contrast Bilat (12/24/2023 5:26 PM EDT) WORKSTATION ID [id number] 1 DH RAD Anatomical Region Laterality Modality Breast Bilateral Magnetic Resonan ce Impressions 12/25/2023 1:08 PM EDT Left breast: Approximately 1 cm enhancing mass [...] Suspicious Finding - Biopsy Should Be Considered. ??Low suspicion of malignancy (more than 2% but no more than 10%) RIGHT BREAST: BI-RADS Category 6: Known Biopsy-Proven Malignancy Thank you for letting us participate in the care of this patient. ??If you are a health care provider and have any questions regarding this report, please contact the number below. ??For patients who have questions please contact the health memory care program director that requested your imaging first. ? Electronically signed by: Kathia Trimble [facility] ([phone]), at 12/25/2023 1:08 PM Narrative 12/25/2023 1:08 PM EDT EXAMINATION: MRI BREAST WWO CONTRAST BILAT CLINICAL INDICATION: 73-year-old woman with newly diagnosed right breast DCIS, high-grade. Evaluate for extent of disease. TECHNIQUE: Multiplanar sequences were obtained pre- and post- Dotarem enhancement, to include SPGR weighted dynamic run-off and subtraction sequences obtained after the intravenous administration of 14 ccs of Dotarem. Computer algorithm analysis for lesion detection and kinetic contrast enhancement curve analysis was performed, using [employer] software. COMPARISON STUDIES: Compared and/or correlated with prior studies including recent mammograms and ultrasound.. FINDINGS: Background Enhancement Pattern (first post Dotarem image): Minimal Amount of Fibroglandular Tissue: The breast tissue is heterogeneously dense, which may [...] This area is larger than the extent of calcifications seen on mammography, and may represent noncalcified DCIS.. Lymph Node Basins/Other: There is no evidence of internal mammary or axillary adenopathy. No significant abnormalities are seen in the chest wall or skin. Martina Pugh MD IMG MRI ORDERABLE S documented in this encounter Visit Diagnoses Diagnosis Malignant neoplasm of right female breast, unspecified estrogen receptor status, unspecified site of breast Malignant neoplasm of right female breast, unspecified estrogen receptor status, unspecified site of breast documented in this encounter Care Teams Welder/Fabricator Relationship Specialty Start Date End Date Julia Chatterjee MD [address] [place] [address] PCP - General 01/31/10 documented as of this encounter
--- OUTSIDE RECORDS SUMMARY | 2024-04-17 01:21 | XMS_ITS | Encounter Summary ---
[place] [address] Care Team Providers Care Addiction Counselor Name Role Phone Julia Chatterjee MD Primary Care Provider [phone] Reason for Referral * Diagnostic Test (Routine) - New Request Specialty Diagnoses / Procedures Referred By Contac t Referred To Contact Radiology Diagnoses Malignant neoplasm of right female breast, unspecified estrogen receptor status, unspecified site of breast Procedures Mammo Magtrace Ted Pugh MD [facility] [place] [address] [facility] [place] [address] Referral ID Status Reason Start Date Expiration Date Visits Requested Visits Authorized [id number] New Request Specialty Service Requested 4 07/27/2025 1 1 Encounter Details Date Type Department Care Team (Late st Contact Info) Description 01/28/2024 Orders [place] [address] [facility] [place] [address] Malignant neoplasm of right female [...] Scheduled View Only Radiation Oncology at [address] [address] 04/20/2024 12:45 PM EST Scheduled View Only Radiation Oncology at [address] [address] 04/21/2024 10:45 AM EST Scheduled View Only Radiation Oncology at [address] [address] 04/21/2024 11:00 AM EST Office Visit Radiation Oncology at [address] [address] [facility] RADIATION [place] [address] 04/22/2024 3:00 PM EST Scheduled View Only Radiation Oncology at [address] [address] 04/23/2024 3:00 PM EST Scheduled View Only Radiation Oncology at [address] [address] 04/24/2024 3:00 PM EST Scheduled View Only Radiation Oncology at [address] [address] 04/27/2024 11:15 AM EST Scheduled View Only Radiation Oncology at [address] [address] 04/28/2024 11:30 AM EST Scheduled View Only Radiation Oncology at [address] [address] 04/28/2024 12:00 PM EST Office Visit Radiation Oncology at [address] [address] [facility] [place] [address] 04/28/2024 2:00 PM EST Office Visit Cardiology at [address] [place] [phone] Letty Montejo APRN [facility] [place] [address] 04/29/2024 11:15 AM EST Scheduled View Only Radiation Oncology at [address] [address] 04/30/2024 11:30 AM EST Scheduled View Only Radiation Oncology at [address] [address] 05/01/2024 11:15 AM EST Scheduled View Only Radiation Oncology at [address] [address] 05/04/2024 10:45 AM EST Scheduled View Only Radiation Oncology at [address] [address] 05/05/2024 1:00 PM EST Scheduled View Only Radiation Oncology at [address] [address] 05/05/2024 1:15 PM EST Office Visit Radiation Oncology at [address] [address] [facility] [place] [address] 05/06/2024 1:00 PM EST Scheduled View Only Radiation Oncology at [address] [address] 05/07/2024 1:00 PM EST Scheduled View Only Radiation Oncology at [address] [address] 05/08/2024 1:00 PM EST Scheduled View Only Radiation Oncology at [address] [address] 05/11/2024 11:30 AM EST Scheduled View Only Radiation Oncology at [address] [address] 01/13/2025 1:00 PM EST Office Visit Hematology/Oncology at [address] [address] Lee [address] [facility] DR [place] [address] [facility] [place] [address] Scheduled Orders Name Type Priority Associated Diagnoses Orde r Schedule Mammo Magtrace Imaging Routine Malignant neoplasm of right female breast, unspecified estrogen receptor status, unspecified site of breast Expected: 01/28/2024, Expires: 04/29/2024 documented as of this encounter Results * Mammo Specimen Right (02/19/2024 1:16 PM EST) [employer] WORKSTATION ID [id number] 1 RAD Anatomical Region [...] who have questions please contact the health floor care specialist that requested your imaging first. ? [facility] [address] [place], [place] ??[address] Ted Pugh MD G MAMMO ORDERAB LES * Mammo Needle Localization Right (02/19/2024 9:20 [...] who have questions please contact the health floor care specialist that requested your imaging first. ? [facility] [address] [place], [place] ??[address] Narrative 02/19/2024 9:38 AM EST EXAMINATION: MAMMO [...] patients who have questions please contactthe health floor care specialist that requested your imaging first. [facility] [place] [address] Ted Pugh MD IMG MAMMO ORDERAB LES documented in this encounter Visit Diagnoses Diagnosis Malignant neoplasm of right female breast, unspecified estrogen receptor status, unspecified site of breast Malignant neoplasm of right female breast, unspecified estrogen receptor status, unspecified site of breast Tachyarrhythmia Tachycardia, unspecified Malignant neoplasm of right female breast, unspecified estrogen receptor status, unspecified site of breast documented in this encounter Care Teams Addiction Counselor Relationship Specialty Start Date End Date Julia Chatterjee MD [facility] [address] [facility] [address] [place] [address] PCP - General 01/31/10 documented as of this encounter
--- OUTSIDE RECORDS SUMMARY | 2024-04-17 01:21 | XMS_ITS | Encounter Summary ---
Author Organization [facility] Address [facility] [place] [address] Care Team Providers Care Motor Polarizer Name Role Phone Julia Chatterjee MD Primary Care Provider [phone] Encounter Details Date Type Department Care Team (Late st Contact Info) Description 12/26/2023 Notes Only Care Management [facility] [place] [id number] Mavis Manzanares MSW Social History Tobacco Use Types Packs/Day Years [...] as of this encounter Progress Notes * Mavis Manzanares MSW - 12/26/2023 3:24 PM EDTSummary: Comprehensive Breast Program: Social Work Introduction I'm able to meet with Leti to introduce myself as social science manager and to review this role within CBPteam while she is here today for surgical oncology consultation with Dr. Martina Pugh. She is accompanied in the exam room by her Montez, and presents with stable mood and affect. She makes good eye contact and engages in conversation about her psychosocial health in the context of breast cancer diagnosis and treatment. Leti has excellent practices of remaining active (pilates, biking, weight lifting) and overall is attentive and attuned to her body/diet. 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 She notes having excellent support in [place], and in their loved ones and larger social minto. We review care team's goal of reducing logistical barriers of attending treatment appointments, andconnecting patients with supports to reduce/cope with stress associated with breast cancer diagnosis. Examples given include resources for any issues that may present as barriers to care, such as transportation, financial stress, and emotional distress. At this time Leti reports having no urgent concerns or psychosocial stressors that could impact her participation with treatment. She understands from discussion with Dr. Pugh that next steps will include additional biopsies, and another discussion with Dr. Pugh about these results before surgical plan is finalized. Regarding how our team can best support her, Leti reports she is doing overall with no burdensome symptoms of stress. She identifies no psychosocial needs at this time, and is agreeable to reach outto care team members as needed. Summary and Plan: Leti verbalizes understanding of social work services outlined in our discussiontoday and accepts my contact information. She understands I will be available to her throughout course of treatment. It's a pleasure to meet her and Montez today. Completed today: Psychosocial assessment Brief assessment Mavis ???Siomara?? Glenna GROUND CREW SUPERVISOR Social Work, Breast and Gynecology Oncology [email or web address] documented in this encounter Plan of Treatment Upcoming Encounters Date Type Department Care Team (Late st Contact Info) Description 04/17/2024 2:30 PM EST Scheduled View Only Radiation Oncology at [address] [address] 04/20/2024 12:45 PM EST Scheduled View Only Radiation Oncology at [address] [address] 04/21/2024 10:45 AM EST Scheduled View Only Radiation Oncology at [address] [address] 04/21/2024 11:00 AM EST Office Visit Radiation Oncology at [address] [address] Radha Casiano MD [facility] [place] [address] 04/22/2024 3:00 PM EST Scheduled View Only Radiation Oncology at [address] [address] 04/23/2024 3:00 PM EST Scheduled View Only Radiation Oncology at [address] [address] 04/24/2024 3:00 PM EST Scheduled View Only Radiation Oncology at [address] [address] 04/27/2024 11:15 AM EST Scheduled View Only Radiation Oncology at [address] [address] 04/28/2024 11:30 AM EST Scheduled View Only Radiation Oncology at [address] [address] 04/28/2024 12:00 PM EST Office Visit Radiation Oncology at [address] [address] Radha Casiano MD [facility] [place] [address] 04/28/2024 2:00 PM EST Office Visit Cardiology at [address] [place] [address] Letty Montejo APRN [facility] [place] [address] 04/29/2024 11:15 AM EST Scheduled View Only Radiation Oncology at [address] [address] 04/30/2024 11:30 AM EST Scheduled View Only Radiation Oncology at [address] [address] 05/01/2024 11:15 AM EST Scheduled View Only Radiation Oncology at [address] [address] 05/04/2024 10:45 AM EST Scheduled View Only Radiation Oncology at [address] [address] 05/05/2024 1:00 PM EST Scheduled View Only Radiation Oncology at [address] [address] 05/05/2024 1:15 PM EST Office Visit Radiation Oncology at [address] [address] Radha Casiano MD [facility] DR [place] [address] 05/06/2024 1:00 PM EST Scheduled View Only Radiation Oncology at [address] [address] 05/07/2024 1:00 PM EST Scheduled View Only Radiation Oncology at [address] [address] 05/08/2024 1:00 PM EST Scheduled View Only Radiation Oncology at [address] [address] 05/11/2024 11:30 AM EST Scheduled View Only Radiation Oncology at [address] [address] 01/13/2025 1:00 PM EST Office Visit Hematology/Oncology at [address] [phone] Lee Ann Jay MD [facility] DR HEMATOLOGY [place] [address] Leti Anderson APRN [facility] HEMATOLOGY [place] [address] documented as of this encounter Visit Diagnoses Not on filedocumented in this encounter Care Teams Motor Polarizer Relationship Specialty Start Date End Date Julia Chatterjee MD [address] [place] [address] PCP - General 01/31/10 documented as of this encounter
--- OUTSIDE RECORDS SUMMARY | 2024-04-17 01:21 | XMS_ITS | Encounter Summary ---
Author Organization [facility] Address 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]; Other neutropenia [D70.8] Social History Tobacco Use Types Packs/Day Years [...] Sign Reading Time Taken Comments Blood Pressure 138/76 02/17/2024 8:15 AM EST Pulse 59 02/17/2024 8:15 AM EST Temperature 36.2 ??C (97.1 ??F) 02/17/2024 8:15 AM ES T Respiratory Rate 18 02/17/2024 8:15 AM EST Oxygen Saturation 100% 02/17/2024 8:15 AM EST Inhaled Oxygen Concentration - - Weight 68.5 kg (151 lb) 02/17/2024 8:15 AM EST Height - - Body Mass Index 26.76 01/15/2024 3:05 PM EST documented in this encounter Progress Notes * Michelle Layne RN - 02/17/2024 8:00 AM EST Infusion Note Diagnosis: Neutropenia and LGL Treatment: Fulphila Injection Fulphila 6mg injected in left lower abdomen.. Patient aware to call clinic with any questions or concerns. Plan: Return to clinic as scheduled. documented in this encounter Plan of Treatment Upcoming Encounters Date Type Department Care Team (Late st Contact Info) Description 04/17/2024 2:30 PM EST Scheduled View Only Radiation Oncology at [address] [address] 04/20/2024 12:45 PM EST Scheduled View Only Radiation Oncology at [address] [address] 04/21/2024 10:45 AM EST Scheduled View Only Radiation Oncology at [address] [address] 04/21/2024 11:00 AM EST Office Visit Radiation Oncology at [address] [address] Radha Casiano MD [facility] RADI[place] [address] 04/22/2024 3:00 PM EST Scheduled View Only Radiation Oncology at [address] [address] 04/23/2024 3:00 PM EST Scheduled View Only Radiation Oncology at [address] [address] 04/24/2024 3:00 PM EST Scheduled View Only Radiation Oncology at [address] [address] 04/27/2024 11:15 AM EST Scheduled View Only Radiation Oncology at [address] [address] 04/28/2024 11:30 AM EST Scheduled View Only Radiation Oncology at [address] [address] 04/28/2024 12:00 PM EST Office Visit Radiation Oncology at [address] [address] Radha Casiano MD [facility] RADI[place] [address] 04/28/2024 2:00 PM EST Office Visit Cardiology at [address] [place] [address] Letty Montejo APRN [facility] [place] [address] 04/29/2024 11:15 AM EST Scheduled View Only Radiation Oncology at [address] [address] 04/30/2024 11:30 AM EST Scheduled View Only Radiation Oncology at [address] [address] 05/01/2024 11:15 AM EST Scheduled View Only Radiation Oncology at [address] [address] 05/04/2024 10:45 AM EST Scheduled View Only Radiation Oncology at [address] [address] 05/05/2024 1:00 PM EST Scheduled View Only Radiation Oncology at [address] [address] 05/05/2024 1:15 PM EST Office Visit Radiation Oncology at [address] [address] Radha Casiano MD [facility] DR RADI[place] [address] 05/06/2024 1:00 PM EST Scheduled View Only Radiation Oncology at [address] [address] 05/07/2024 1:00 PM EST Scheduled View Only Radiation Oncology at [address] [address] 05/08/2024 1:00 PM EST Scheduled View Only Radiation Oncology at [address] [address] 05/11/2024 11:30 AM EST Scheduled View Only Radiation Oncology at [address] [address] 01/13/2025 1:00 PM EST Office Visit Hematology/Oncology at [address] [address] Lee Ann Jay MD [facility] DR HEMATOLOGY [place] [address] Leti Anderson APRN [facility] DR HEMATOLOGY [place] [address] documented as of this encounter Visit Diagnoses Diagnosis 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 Is this drug being given as an outpatient? Yes Given 02/17/2024 8:39 AM EST 6 mg Left Lower Quadrant documented in this encounter Care Teams Diversity Manager Relationship Specialty Start Date End Date Julia Chatterjee MD [address] [place] [address] PCP - General 01/31/10 documented as of this encounter
--- OUTSIDE RECORDS SUMMARY | 2024-04-17 01:21 | XMS_ITS | Encounter Summary ---
Author Organization [facility] Address [facility] [place] [address] Care Team Providers Care Anesthesiologist Assistant Certified Name Role Phone Julia Chatterjee MD Primary Care Provider [phone] Encounter Details Date Type Department Care Team (Latest Contact Info) Description 01/16/2024 7:58 AM EST - 01/16/2024 8:09 AM EST Hospital [place] [address] Discharge Disposition: Home Social History Tobacco Use [...] Sig Dispensed Refills Start Date End Date UNABLE TO FIND Digestive enzymes UNABLE TO [...] as of this encounter Progress Notes * Tamir Fletcher MD - 01/14/2024 10:32 AM EST Procedure date: scheduled for 01/15 Procedure type: bilateral Breast biopsy Special Instructions: none Allergies: Stevia [stevioside (bulk)], Benzalkonium chloride, and Gluten Medications: Current Outpatient Medications: UNABLE TO FIND, Digestive enzymes, Disp: , Rfl: UNABLE TO FIND, Denatrofin, Disp: , Rfl: UNABLE TO FIND, Eleuthroel DGL, Disp: , Rfl: magnesium 250 mg Tablet, Take by mouth., Disp: , Rfl: selenium 50 mcg Tablet, Take 50 mcg by mouth., Disp: , Rfl: zinc sulfate (ZINC-220 ORAL), Take by mouth., Disp: , Rfl: cholecalciferol, vitamin D3, (VITAMIN D3 ORAL), Take 4,000 Units by mouth daily., Disp: , Rfl: ascorbic acid, Vitamin C, (Vitamin C) 500 mg Tablet, Take 500 mg by mouth 2 times daily., Disp: , Rfl: Anticoagulation status: none Imaging reviewed and procedural plan approved by Dr. Tamir Fletcher MD documented in this encounter Plan of Treatment Upcoming Encounters Date Type Department Care Team (Late st Contact Info) Description 04/17/2024 2:30 PM EST Scheduled View Only Radiation Oncology at [address] [address] 04/20/2024 12:45 PM EST Scheduled View Only Radiation Oncology at [address] [address] 04/21/2024 10:45 AM EST Scheduled View Only Radiation Oncology at [address] [address] 04/21/2024 11:00 AM EST Office Visit Radiation Oncology at [address] [address] Radha Casiano MD [facility] [place] [address] 04/22/2024 3:00 PM EST Scheduled View Only Radiation Oncology at [address] [address] 04/23/2024 3:00 PM EST Scheduled View Only Radiation Oncology at [address] [address] 04/24/2024 3:00 PM EST Scheduled View Only Radiation Oncology at [address] [address] 04/27/2024 11:15 AM EST Scheduled View Only Radiation Oncology at [address] [address] 04/28/2024 11:30 AM EST Scheduled View Only Radiation Oncology at [address] [address] 04/28/2024 12:00 PM EST Office Visit Radiation Oncology at [address] [address] Radha Casiano MD [facility] [place] [address] 04/28/2024 2:00 PM EST Office Visit Cardiology at [address] [place] [address] Letty Montejo, COUNTERINTELLIGENCE ANALYST [facility] [place] [address] 04/29/2024 11:15 AM EST Scheduled View Only Radiation Oncology at [address] [address] 04/30/2024 11:30 AM EST Scheduled View Only Radiation Oncology at [address] [address] 05/01/2024 11:15 AM EST Scheduled View Only Radiation Oncology at [address] [address] 05/04/2024 10:45 AM EST Scheduled View Only Radiation Oncology at [address] [address] 05/05/2024 1:00 PM EST Scheduled View Only Radiation Oncology at [address] [address] 05/05/2024 1:15 PM EST Office Visit Radiation Oncology at [address] [address] Radha Casiano MD [facility] [place] [address] 05/06/2024 1:00 PM EST Scheduled View Only Radiation Oncology at [address] [address] 05/07/2024 1:00 PM EST Scheduled View Only Radiation Oncology at [address] [address] 05/08/2024 1:00 PM EST Scheduled View Only Radiation Oncology at [address] [address] 05/11/2024 11:30 AM EST Scheduled View Only Radiation Oncology at [address] [address] 01/13/2025 1:00 PM EST Office Visit Hematology/Oncology at [address] [address] Lee Ann Jay MD [facility] [place] [address] Leti Anderson APRN [facility] [place] [address] documented as of this encounter Visit Diagnoses Not on filedocumented in this encounter Care Teams Anesthesiologist Assistant Certified Relationship Specialty Start Date End Date Julia Chatterjee MD [address] [facility] [address] [place] [address] PCP - General 01/31/10 documented as of this encounter
--- OUTSIDE RECORDS SUMMARY | 2024-04-17 01:21 | XMS_ITS | Encounter Summary ---
Author Organization [facility] [place] [address] Care Team Providers Care Derrickman Helper Name Role Phone Julia Chatterjee MD Primary Care Provider [phone] Reason for Visit * Reason Onset Date Comments Questions 01/06/2024 Questions regard ing LGL and breast bx Encounter Details Date Type Department Care Team (Late st Contact Info) Description 01/06/2024 Telephone Hematology/Oncology at [address] [phone] Michelle Layne RN Questions (Questions regarding LGL and breast bx) Social History Tobacco Use Types Packs/Day Years [...] Telephone Encounter - Billie Diaz RN - 01/07/2024 2:01 PM EDT Called Leti to let her know we have scheduled her for 3pm 01/[address] Jay and 2pm labs at [facility]. Potential neupogen shot after if needed. Leti agreed with this plan. * Telephone Encounter - Michelle Layne RN - 01/06/2024 11:09 AM EDT Leti is having a R and L breast bx on 01/15. She reports a 4-6cm mass on the right which she will need surgery and treatment for and a suspicious part on the L breast. She is wondering about Neupogen injection on 01/14 prior to Bx? She is wondering how her LGL will impact the need for a breast surgery and future treatment. ----- Message from [employer] sent at 01/06/2024 8:31 AM EDT ----- Would like to speak to Dr. Jay in regards to breast cancer diagnosis. She is having bx on 01/15 and thinks she may need Neupogen injection? [phone] documented in this encounter Plan of Treatment Upcoming Encounters Date Type Department Care Team (Late st Contact Info) Description 04/17/2024 2:30 PM EST Scheduled View Only Radiation Oncology at [address] [phone] 04/20/2024 12:45 PM EST Scheduled View Only Radiation Oncology at [address] [phone] 04/21/2024 10:45 AM EST Scheduled View Only Radiation Oncology at [address] [phone] 04/21/2024 11:00 AM EST Office Visit Radiation Oncology at [address] [address] Radha Casiano MD [facility] [place] [address] 04/22/2024 3:00 PM EST Scheduled View Only Radiation Oncology at [address] [phone] 04/23/2024 3:00 PM EST Scheduled View Only Radiation Oncology at [address] [phone] 04/24/2024 3:00 PM EST Scheduled View Only Radiation Oncology at [address] [address] 04/27/2024 11:15 AM EST Scheduled View Only Radiation Oncology at [address] [address] 04/28/2024 11:30 AM EST Scheduled View Only Radiation Oncology at [address] [phone] 04/28/2024 12:00 PM EST Office Visit Radiation Oncology at [address] [address] Radha Casiano MD [facility] [place] [address] 04/28/2024 2:00 PM EST Office Visit Cardiology at [address] [place] [address] Letty Montejo, JAYLEN [facility] [place] [address] 04/29/2024 11:15 AM EST Scheduled View Only Radiation Oncology at [address] [address] 04/30/2024 11:30 AM EST Scheduled View Only Radiation Oncology at [address] [address] 05/01/2024 11:15 AM EST Scheduled View Only Radiation Oncology at [address] [address] 05/04/2024 10:45 AM EST Scheduled View Only Radiation Oncology at [address] [address] 05/05/2024 1:00 PM EST Scheduled View Only Radiation Oncology at [address] [address] 05/05/2024 1:15 PM EST Office Visit Radiation Oncology at [address] [address] Radha Casiano MD [facility] [place] [address] 05/06/2024 1:00 PM EST Scheduled View Only Radiation Oncology at [address] [address] 05/07/2024 1:00 PM EST Scheduled View Only Radiation Oncology at [address] [address] 05/08/2024 1:00 PM EST Scheduled View Only Radiation Oncology at [address] [address] 05/11/2024 11:30 AM EST Scheduled View Only Radiation Oncology at [address] [address] 01/13/2025 1:00 PM EST Office Visit Hematology/Oncology at [address] [address] Lee Ann Jay MD [facility] HEMATOLOGY [place] [address] Leti Anderson APRN [facility] HEMATOLOGY [place] [address] documented as of this encounter Visit Diagnoses Not on filedocumented in this encounter Care Teams Derrickman Helper Relationship Specialty Start Date End Date Julia Chatterjee MD [address] [facility] [address] [place] [address] PCP - General 01/31/10 documented as of this encounter
--- OUTSIDE RECORDS SUMMARY | 2024-04-17 01:21 | XMS_ITS | Encounter Summary ---
Author Organization [facility] [place] [address] Care Team Providers Care Client Service Manager Name Role Phone Julia Chatterjee MD Primary Care Provider [phone] Reason for Visit * Diagnostic Test (Routine) - Closed Specialty Diagnoses / Procedures Referred By Kimani leo Referred To Contact Radiology Diagnoses Abnormal finding on breast imaging Procedures MRI Guided Biopsy Breast Vacuum Assisted w Clip Placement Bilateral MRI Guided Biopsy Breast Vacuum Assisted w Clip Placement Right Kathia Trimble MD [facility] [address] [place] [address] Referral ID Status Reason Start Date Expiration Date V isits Requested Visits Authorized [id number] Closed Specialty Service Requested 12/27/2023 06/26/2025 1 1 Encounter Details Date Type Department Care Team (Latest Contact Info) Description 01/16/2024 8:37 AM EST - 01/16/2024 10:49 AM EST Hospital [place] [address] Jodee Ortega MD [facility] [place] [address] Discharge Disposition: Home Social History Tobacco Use [...] EST Scheduled View Only Radiation Oncology at [address] [address] 04/20/2024 12:45 PM EST Scheduled View Only Radiation Oncology at [address] [phone] 04/21/2024 10:45 AM EST Scheduled View Only Radiation Oncology at [address] [phone] 04/21/2024 11:00 AM EST Office Visit Radiation Oncology at [address] [address] Radha Casiano MD [facility] RADIATION [place] [address] 04/22/2024 3:00 PM EST Scheduled View Only Radiation Oncology at [address] [address] 04/23/2024 3:00 PM EST Scheduled View Only Radiation Oncology at [address] [address] 04/24/2024 3:00 PM EST Scheduled View Only Radiation Oncology at [address] [address] 04/27/2024 11:15 AM EST Scheduled View Only Radiation Oncology at [address] [address] 04/28/2024 11:30 AM EST Scheduled View Only Radiation Oncology at [address] [phone] 04/28/2024 12:00 PM EST Office Visit Radiation Oncology at [address] [address] Radha Casiano MD [facility] [place] [address] 04/28/2024 2:00 PM EST Office Visit Cardiology at [address] [phone] Letty Montejo APRN [facility] [place] [address] 04/29/2024 11:15 AM EST Scheduled View Only Radiation Oncology at [address] [address] 04/30/2024 11:30 AM EST Scheduled View Only Radiation Oncology at [address] [address] 05/01/2024 11:15 AM EST Scheduled View Only Radiation Oncology at [address] [address] 05/04/2024 10:45 AM EST Scheduled View Only Radiation Oncology at [address] [phone] 05/05/2024 1:00 PM EST Scheduled View Only Radiation Oncology at [address] [address] 05/05/2024 1:15 PM EST Office Visit Radiation Oncology at [address] [address] Radha Casiano MD [facility] [place] [address] 05/06/2024 1:00 PM EST Scheduled View Only Radiation Oncology at [address] [address] 05/07/2024 1:00 PM EST Scheduled View Only Radiation Oncology at [address] [address] 05/08/2024 1:00 PM EST Scheduled View Only Radiation Oncology at [address] [phone] 05/11/2024 11:30 AM EST Scheduled View Only Radiation Oncology at [address] [address] 01/13/2025 1:00 PM EST Office Visit Hematology/Oncology at [address] [address] Lee Ann Jay MD [facility] [address] [place] [address] Leti Anderson APRN [facility] [place] [address] documented as of this encounter Procedures Procedure Name Priority Date/Time Associated Diagnosis Comments MRI GUIDED BIOPSY BREATS VACUUM ASSISTED W CLIP PLACEMENT BILATERAL Routine 01/16/2024 10:42 AM EST Abnormal finding on breast imaging documented in this encounter Visit Diagnoses Not on filedocumented in this encounter Administered Medications Inactive Administered Medications - up to 3 most recent administrations Medication Order MAR Action Action Date Dose Rate Site gadoterate meglumine (Dotarem) (0.5 mMol/mL) injection solution 0-100 mL 0-100 mL, Intravenous, ONCE PRN, 1 dose, Starting on Lulu 01/16/24 at 1059, Until Lulu 01/16/24 at 0953, Per Protocol, Radiology Contrast, Routine Given 01/16/2024 9:53 AM EST 14 mLs documented in this encounter Care Teams Client Service Manager Relationship Specialty Start Date End Date Julia Chatterjee MD [facility] [address] [place] [address] PCP - General 01/31/10 documented as of this encounter
--- OUTSIDE RECORDS SUMMARY | 2024-04-17 01:21 | XMS_ITS | Encounter Summary ---
Author Organization [facility] [place] [address] Care Team Providers Care Government Gauger Name Role Phone Julia Chatterjee MD Primary Care Provider [phone] Encounter Details Date Type Department Care Team (Latest Contact Info) Description 01/01/2024 Travel Social History Tobacco Use Types Packs/Day [...] EST Scheduled View Only Radiation Oncology at [address] [phone] 04/20/2024 12:45 PM EST Scheduled View Only Radiation Oncology at [address] [phone] 04/21/2024 10:45 AM EST Scheduled View Only Radiation Oncology at [address] [phone] 04/21/2024 11:00 AM EST Office Visit Radiation Oncology at [address] [address] Radha Casiano MD [facility] [place] [address] 04/22/2024 3:00 PM EST Scheduled View Only Radiation Oncology at [address] [address] 04/23/2024 3:00 PM EST Scheduled View Only Radiation Oncology at [address] [address] 04/24/2024 3:00 PM EST Scheduled View Only Radiation Oncology at [address] [address] 04/27/2024 11:15 AM EST Scheduled View Only Radiation Oncology at [address] [address] 04/28/2024 11:30 AM EST Scheduled View Only Radiation Oncology at [address] [phone] 04/28/2024 12:00 PM EST Office Visit Radiation Oncology at [address] [address] Radha Casiano MD [facility] [place] [address] 04/28/2024 2:00 PM EST Office Visit Cardiology at [address] [place] [address] Letty Mnotejo, COMPLIANCE INVESTIGATOR [facility] [address] 04/29/2024 11:15 AM EST Scheduled View Only Radiation Oncology at [address] [address] 04/30/2024 11:30 AM EST Scheduled View Only Radiation Oncology at [address] [phone] 05/01/2024 11:15 AM EST Scheduled View Only Radiation Oncology at [address] [address] 05/04/2024 10:45 AM EST Scheduled View Only Radiation Oncology at [address] [address] 05/05/2024 1:00 PM EST Scheduled View Only Radiation Oncology at [address] [address] 05/05/2024 1:15 PM EST Office Visit Radiation Oncology at [address] [address] Radha Casiano MD [facility] RADIATION [place]COLOGY [place] [id number] 05/06/2024 1:00 PM EST Scheduled View Only Radiation Oncology at [address] [address] 05/07/2024 1:00 PM EST Scheduled View Only Radiation Oncology at [address] [address] 05/08/2024 1:00 PM EST Scheduled View Only Radiation Oncology at [address] [address] 05/11/2024 11:30 AM EST Scheduled View Only Radiation Oncology at [address] [address] 01/13/2025 1:00 PM EST Office Visit Hematology/Oncology at [address] [address] Lee Ann Jay MD [facility] [place] [address] Leti Anderson APRN [facility] [place] [address] documented as of this encounter Visit Diagnoses Not on filedocumented in this encounter Care Teams Government Gauger Relationship Specialty Start Date End Date Julia Chatterjee MD [facility] [address] [place] [address] PCP - General 01/31/10 documented as of this encounter
--- OUTSIDE RECORDS SUMMARY | 2024-04-17 01:21 | XMS_ITS | Encounter Summary ---
[place] [address] Care Team Providers Care Quill Skinner Name Role Phone Julia Chatterjee MD Primary Care Provider [phone] Reason for Referral * Diagnostic Test (Routine) - Closed Specialty Diagnoses / Procedures Referred By Kimani leo Referred To Contact Radiology Diagnoses Abnormal finding on breast imaging Procedures MRI Guided Biopsy Breast Vacuum Assisted w Clip Placement Bilateral MRI Guided Biopsy Breast Vacuum Assisted w Clip Placement Right Kathia Trimble MD [facility] [place] [address] [place] [address] Referral ID Status Reason Start Date Expiration Date V isits Requested Visits Authorized [id number] Closed Specialty Service Requested 12/27/2023 06/26/2025 1 1 Reason for Visit * Diagnostic Test (Routine) - Closed Specialty Diagnoses / Procedures Referred By Kimani leo Referred To Contact Radiology Diagnoses Abnormal finding on breast imaging Procedures MRI Guided Biopsy Breast Vacuum Assisted w Clip Placement Bilateral MRI Guided Biopsy Breast Vacuum Assisted w Clip Placement Right Kathia Trimble MD [facility] [place] [address] [place] [address] Referral ID Status Reason Start Date Expiration Date V isits Requested Visits Authorized [id number] Closed Specialty Service Requested 12/27/2023 06/26/2025 1 1 Encounter Details Date Type Department Care Team (Latest Contact Info) Description 01/16/2024 8:10 AM EST - 01/16/2024 8:36 AM EST Hospital Encounter MRI at [facility] [place] [address] Jodee Ortega MD [facility] [place] [address] Abnormal finding on breast imaging Discharge Disposition: Home Social History Tobacco Use [...] of this encounter Progress Notes * Germaine Ambrocio RN - 01/16/2024 9:18 AM EST MRI PRE-SEDATION ASSESSMENT NOTE NAME: Leti SPENCER: 73 y.o. : 1950 [address] [facility] [address] Female [phone] (home) Telephone Information: Julia Chatterjee MD No primary care provider on file. Allergies Allergen Reactions Stevia [Stevioside (Bulk)] Diarrhea Intolerance with Artificial Sugars - Diarrhea. Benzalkonium Chloride Gluten Date/Time of call: January 10, 2024/8:47 AM/ SCHEDULED SCAN: MRI GUIDED BIOPSY BREATS VACUUM ASSISTED W CLIP PLACEMENT BILATERAL [[id number]] HEIGHT: 5'2 WEIGHT: 153 lbs Have you had a PREVIOUS MRI SCAN? Yes Are you claustrophobic or anxious in the scanner? Yes CAN YOU LAY FLAT? Yes Do you have trouble breathing when lying flat? No DO YOU HAVE ANY INVOLUNTARY MOVEMENTS? No DO YOU TAKE PAIN MEDICATION ON A DAILY BASIS? No PLAN: Ativan (unless MRI previously tolerated with Valium) - pt did not feel anything from Ativan, going to try Valium this time You must have a shag truck driver present when you check in. This patient has been informed that they require a shag truck driver to drive them home after this procedure. In the absence of a shag truck driver, IR will not be able tosedate for your scan. Pt verbalized understanding of these instructions during the pre-procedure education via phone. Yes x Santa Claus of shag truck driver: Phone number: PRIOR SCAN DATE/S SEDATION TYPE SUCCESSFUL 12/24/23 Breast wwo Ativan 0.5mg Po x 1 Pass 01/16/2024 MRI guided bilateral breast biopsy Valium 2 mg PO x2 Revised 09/04/2022 documented in this encounter Plan of Treatment Upcoming Encounters Date Type Department Care Team (Late st Contact Info) Description 04/17/2024 2:30 PM EST Scheduled View Only Radiation Oncology at [address] [address] 04/20/2024 12:45 PM EST Scheduled View Only Radiation Oncology at [address] [address] 04/21/2024 10:45 AM EST Scheduled View Only Radiation Oncology at [address] [address] 04/21/2024 11:00 AM EST Office Visit Radiation Oncology at [address] [address] Radha Casiano MD [facility] [place] [address] 04/22/2024 3:00 PM EST Scheduled View Only Radiation Oncology at [address] [address] 04/23/2024 3:00 PM EST Scheduled View Only Radiation Oncology at [address] [address] 04/24/2024 3:00 PM EST Scheduled View Only Radiation Oncology at [address] [address] 04/27/2024 11:15 AM EST Scheduled View Only Radiation Oncology at [address] [address] 04/28/2024 11:30 AM EST Scheduled View Only Radiation Oncology at [address] [address] 04/28/2024 12:00 PM EST Office Visit Radiation Oncology at [address] [address] Radha Casiano MD [facility] [place] [address] 04/28/2024 2:00 PM EST Office Visit Cardiology at [address] [place] [id number] Letty Montejo, JAYLEN [facility] [place] [place] [address] 04/29/2024 11:15 AM EST Scheduled View Only Radiation Oncology at [address] [address] 04/30/2024 11:30 AM EST Scheduled View Only Radiation Oncology at [address] [address] 05/01/2024 11:15 AM EST Scheduled View Only Radiation Oncology at [address] [address] 05/04/2024 10:45 AM EST Scheduled View Only Radiation Oncology at [address] [address] 05/05/2024 1:00 PM EST Scheduled View Only Radiation Oncology at [address] [address] 05/05/2024 1:15 PM EST Office Visit Radiation Oncology at [address] [address] Radha Casiano MD [facility] [place] [address] 05/06/2024 1:00 PM EST Scheduled View Only Radiation Oncology at [address] [address] 05/07/2024 1:00 PM EST Scheduled View Only Radiation Oncology at [address] [address] 05/08/2024 1:00 PM EST Scheduled View Only Radiation Oncology at [address] [address] 05/11/2024 11:30 AM EST Scheduled View Only Radiation Oncology at [address] [address] 01/13/2025 1:00 PM EST Office Visit Hematology/Oncology at [address] [address] Lee Ann Jay MD [facility] [place] [address] Leti Anderson APRN [facility] [place] [address] documented as of this encounter Procedures Procedure Name Priority Date/Time Associated Diagnosis Comments MRI GUIDED BIOPSY BREATS VACUUM ASSISTED W CLIP PLACEMENT BILATERAL Routine 01/16/2024 10:42 AM EST Abnormal finding on breast imaging SURGICAL PATHOLOGY Routine 01/16/2024 10 :24 AM EST Abnormal finding on breast imaging documented in this encounter Results * MRI Guided Biopsy Breast Vacuum Assisted w Clip Placement Bilateral (01/16/2024 10:42 AM EST) WORKSTATION ID [id number] DH RAD Anatomical Region Laterality Modality Breast [...] who have questions please contact the health body care manager that requested your imaging first. ? --------ORIGINAL [...] who have questions please contact the health body care manager that requested your imaging first. ? Impressions [...] who have questions please contact the health body care manager that requested your imaging first. ? Narrative [...] anesthesia was injected and a 9 gauge clipkit Eviva vacuum assisted needle was placed in [...] deep anesthesia wasinjected and a 9 gauge Suros Eviva vacuum [...] patients who have questions please contactthe health body care manager that requested your imaging first. Jodee Ortega MD IMG MRI ORDERABLES * (ABNORMAL) Surgical Pathology (01/16/2024 10:24 AM EST) Case Report Surgical Pathology Report ? Case: [id number] ? Authorizing Provider: ??Jodee Ortega MD ? Collected: ? 01/16/2024 1024 ? Ordering Location: ? MRI at [facility] ?Received: ?01/16/2024 1314 ? Pathologist: ? Jerica Alvarez MD ? Specimens: ?? A) - Breast, Left, LEFT BREAST MRI BIOPSY ? B) - Breast, Right, RIGHT BREAST MRI BIOPSY ? 01/18/2024 1:00 PM [facility] Final Diagnosis A- Left breast, core needle biopsy: - Benign breast tissue with apocrine metaplasia and focal fibrotic stroma. - Microcalcifications associated with benign ductal epithelium. 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 01/18/2024 1:00 PM [facility] Additional Studies B- Right breast, core needle biopsy (B1): Estrogen Receptor (ER) immunoreactivity: positive Cancer cells with immunostainin% Stain intensity: moderate to strong *Diagnostic chaparro for hormone receptors (ASCO/CAP GUIDELINES, 2020): Negative immunoreactivity: <1% tumor cells with immunostaining Positive immunoreactivity: >=1% tumor cells with immunostaining Low Positive: 1-10% tumor cells with immunostaining* *There are limited data on the overall benefit of endocrine therapies for patients with low level (1-10%) ER expression, but they currently suggest possible benefit, so patients are considered eligible for endocrine treatment. There are data that suggest invasive cancers with these results are heterogeneous in both behavior and biology and often have gene expression profiles more similar to ER-negative cancers. Immunohistochemical assays were performed on paraffin-embedded tissue sections fixed in 10% neutral buffered formalin for 6-72 hours using the polymer system technique with appropriate controls. The assays were performed according to the oven operator's instructions using the Anti-ER (SP1) antibody. These tests were developed and their performance characteristics determined by [facility]. They may not have been cleared or approved by the US Food and Drug Administration. The FDA does not require such tests to go through premarket FDA review. These tests are used for clinical purposes and should not be regarded as investigational or for research. This laboratory is certified under the Clinical Laboratory Improvement Amendments (CLIA) as qualified to perform high complexity clinical laboratory testing. Task ID IHC/Special Stains Result B1-4 AR Positive (70-80% weak to moderate) B1-5 CK5 Negative in DCIS 01/18/2024 1:00 PM [facility] Disclaimer(s) Formalin-fixed, paraffin-embedded tissue sections are studied using the polymer technique with appropriate positive and negative controls. These IHC studies provide the pathologist with adjunctive diagnostic information. Antibody specificity has been verified by testing antibodies on a series of in-house tissues with known immunohistochemical performance characteristics. The clinical interpretation of any antibody positive staining or its absence is evaluated within the context of clinical presentation, morphology, histopathological criteria and other diagnostic tests. 01/18/2024 1:00 PM [facility] Clinical Information A. Breast, Left, LEFT BREAST MRI BIOPSY Rule out malignancy Non-mass enhancement Abnormal finding on breast imaging [R92.8] B. Breast, Right, RIGHT BREAST MRI BIOPSY Non-mass enhancement Rule out malignancy Abnormal finding on breast imaging [R92.8] 01/18/2024 1:00 PM [facility] Gross Description A. Breast, Left, LEFT BREAST MRI BIOPSY. A - Labeled/Fixative: Left breast MRI biopsy, formalin. Quantity/Size: Fragments, ranging from 0.5 x 0.2 cm to 2.6 x 0.3 cm Tissue Description: Yellow fibrofatty needle core biopsies. Sections/Processing: Entirely submitted in 4 cassettes labeled A1-A4. Ischemic time: 1 minute Total fixation time in formalin: 8 hours 28 minutes The ASCO/CAP guideline related to formalin fixation time has been met (6-72 hours). The ASCO/CAP guideline related to cold ischemic time has been met (<1 hour). B. Breast, Right, RIGHT BREAST MRI BIOPSY. B - Labeled/Fixative: Right breast MRI biopsy, formalin. Quantity/Size: Multiple, ranging from 1.0 x 0.3 cm to 3.6 x 0.3 cm Tissue Description: Yellow fibrofatty needle core biopsies. Sections/Processing: Entirely submitted in 2 cassettes labeled B1-B2. Ischemic time: 1 minute Total fixation time in formalin: 8 hours 27 minutes The ASCO/CAP guideline related to formalin fixation time has been met (6-72 hours). The ASCO/CAP guideline related to cold ischemic time has been met (<1 hour). 01/18/2024 1:00 PM EST [facility] Result Note THIS RESULT REQUIRES PHYSICIAN/KASH FOLLOW UP(A) 01/18/2024 1:00 PM EST [facility] Tissue LEFT BREAST STRUCTURE / Unknown 01/16/2024 10:24 AM EST 01/16/2024 1:14 PM EST Tissue specimen (specimen) RIGHT BREAST STRUCTURE / Unknown 01/16/2024 10:35 AM EST 01/16/2024 1:14 PM EST Jodee Ortega MD PATHOLOGY/CYTOLOGY O RDERABLES [facility] [place] [address] documented in this encounter Visit Diagnoses Diagnosis Abnormal finding on breast imaging Other (abnormal) findings on radiological examination of breast documented in this encounter Administered Medications Inactive Administered Medications - up to 3 most recent administrations Medication Order MAR Action Action Date Dose Rate Site diazePAM (Valium) tablet 2 mg 2 mg, Oral, EVERY 30 MIN PRN, 2 doses, Starting on Lulu 01/16/24 at 0735, Until Lulu 01/16/24 at 0917, Anxiety, Minimal Sedation per Department of Radiology Adult Minimal Sedation Guidelines: Give 50 minutes prior to scan., Angio/IR (Day of Procedure), Routine Given 01/16/2024 9:17 AM EST 2 mg Given 01/16/2024 8:50 AM EST 2 mg lidocaine (Xylocaine) 1% (10 mg/mL) injection 0-200 mg 0-200 mg (0-20 mL), Subcutaneous, ONCE, 1 dose, On Lulu 01/16/24 at 1100, Radiology Protocol Medication, Routine Given 01/16/2024 10:28 AM EST 10 mg lidocaine-EPINEPHrine (1% - 1:100,000) injection 0-20 mL 0-20 mL, Intradermal, ONCE, 1 dose, On Lulu 01/16/24 at 1100, Warning Vesicant/Irritant Medication , Radiology Protocol Medication, Routine Given 01/16/2024 10:28 AM EST 20 mLs documented in this encounter Care Teams Quill Skinner Relationship Specialty Start Date End Date Julia Chatterjee MD [facility] [address] [place] [address] PCP - General 01/31/10 documented as of this encounter
--- OUTSIDE RECORDS SUMMARY | 2024-04-17 01:21 | XMS_ITS | Encounter Summary ---
Author Organization [facility] Address [facility] [place] [address] Care Team Providers Care Hose Seamer Name Role Phone Julia Chatterjee MD Primary Care Provider [phone] Encounter Details Date Type Department Care Team (Late st Contact Info) Description 02/12/2024 Orders Only [place] [address] Leti Anderson, PLODDER OPERATOR [facility] [place] [address] Social History Tobacco Use Types Packs/Day Years [...] EST Scheduled View Only Radiation Oncology at [address] [address] 04/20/2024 12:45 PM EST Scheduled View Only Radiation Oncology at [address] [address] 04/21/2024 10:45 AM EST Scheduled View Only Radiation Oncology at [address] [address] 04/21/2024 11:00 AM EST Office Visit Radiation Oncology at [address] [address] Radha Casiano MD [facility] [place] [address] 04/22/2024 3:00 PM EST Scheduled View Only Radiation Oncology at [address] [address] 04/23/2024 3:00 PM EST Scheduled View Only Radiation Oncology at [address] [address] 04/24/2024 3:00 PM EST Scheduled View Only Radiation Oncology at [address] [address] 04/27/2024 11:15 AM EST Scheduled View Only Radiation Oncology at [address] [address] 04/28/2024 11:30 AM EST Scheduled View Only Radiation Oncology at [address] [address] 04/28/2024 12:00 PM EST Office Visit Radiation Oncology at [address] [address] Radha Casiano MD [facility] [place] [address] 04/28/2024 2:00 PM EST Office Visit Cardiology at [address] [place] [address] Letty Montejo APRN [facility] [place] [address] 04/29/2024 11:15 AM EST Scheduled View Only Radiation Oncology at [address] [address] 04/30/2024 11:30 AM EST Scheduled View Only Radiation Oncology at [address] [address] 05/01/2024 11:15 AM EST Scheduled View Only Radiation Oncology at [address] [address] 05/04/2024 10:45 AM EST Scheduled View Only Radiation Oncology at [address] [address] 05/05/2024 1:00 PM EST Scheduled View Only Radiation Oncology at [address] [address] 05/05/2024 1:15 PM EST Office Visit Radiation Oncology at [address] [address] Radha Casiano MD [facility] [place] [address] 05/06/2024 1:00 PM EST Scheduled View Only Radiation Oncology at [address] [address] 05/07/2024 1:00 PM EST Scheduled View Only Radiation Oncology at [address] [address] 05/08/2024 1:00 PM EST Scheduled View Only Radiation Oncology at [address] [address] 05/11/2024 11:30 AM EST Scheduled View Only Radiation Oncology at [address] [phone] 01/13/2025 1:00 PM EST Office Visit Hematology/Oncology at [address] [phone] Lee Ann Jay MD [facility] [place] [address] Leti Anderson APRN [facility] [place] [address] documented as of this encounter Visit Diagnoses Not on filedocumented in this encounter Care Teams Hose Seamer Relationship Specialty Start Date End Date Julia Chatterjee MD [address] [place] [address] PCP - General 01/31/10 documented as of this encounter
--- OUTSIDE RECORDS SUMMARY | 2024-04-17 01:21 | XMS_ITS | Encounter Summary ---
Author Organization [facility] [place] [address] Care Team Providers Care Truck Bench Mechanic Name Role Phone Julia Chatterjee MD Primary Care Provider [phone] Encounter Details Date Type Department Care Team (Late st Contact Info) Description 12/06/2023 Notes Only [place] [phone] Sera Yusuf Social History Tobacco Use Types Packs/Day Years [...] as of this encounter Progress Notes * Sera Yusuf - 12/06/2023 8:23 AM EDTSummary: CBP-newly diagnosed breast cancer New Breast Cancer Referral Leti Parry [id number] Biopsy Location: Biopsy Date: 12.04.2023 Date of referral: 12.05.2023 [x]Packet sent [x]Patient notified of appointments [] Tahmina to deliver packet at first appt Diagnoses: R DCIS Receptors: ER [x]Positive []Negative FL []Positive []Negative Her2 []Positive []Negative []Equivocal ( Fish ordered) Tumor size: 4 cm Scans: [x]MRI []CT []Bone scan []PET []ECHO []Other Lab: CBC Surgeon: []Harris [x]Lexy []Hussein Initial Consult Date: 12.26.2023 Post/OP Date: 03.13.2024 Surgical plan after Neoadjuvant chemo date- Plastics: []Freed []Michael []Martinez Date of Surgery: 02.19.2024 Med/Onc: []Naren []Arielle []Kyree [x]Vahdat []Outside Facility Neoadjuvant []Yes [x]No Rad/Onc: []Wells [x]Fariss []McVorran [x]Outside Facility [facility] Referral sent to Physical Therapy: []Yes []No - Physical Therapy Scheduled Outside Records: []Path slides Requested []Path here [] Images Request []Images here [] Clinic notes Requested [] Notes Here [] Image review ordered [] Image Review complete Triage Provider and discussion notes: documented in this encounter Plan of Treatment Upcoming Encounters Date Type Department Care Team (Late st Contact Info) Description 04/17/2024 2:30 PM EST Scheduled View Only Radiation Oncology at [address] [address] 04/20/2024 12:45 PM EST Scheduled View Only Radiation Oncology at [address] [address] 04/21/2024 10:45 AM EST Scheduled View Only Radiation Oncology at [address] [address] 04/21/2024 11:00 AM EST Office Visit Radiation Oncology at [address] [address] [facility] [place] [address] 04/22/2024 3:00 PM EST Scheduled View Only Radiation Oncology at [address] [address] 04/23/2024 3:00 PM EST Scheduled View Only Radiation Oncology at [address] [address] 04/24/2024 3:00 PM EST Scheduled View Only Radiation Oncology at [address] [address] 04/27/2024 11:15 AM EST Scheduled View Only Radiation Oncology at [address] [address] 04/28/2024 11:30 AM EST Scheduled View Only Radiation Oncology at [address] [address] 04/28/2024 12:00 PM EST Office Visit Radiation Oncology at [address] [address] [facility] [place] [address] 04/28/2024 2:00 PM EST Office Visit Cardiology at [address] [place] [address] [facility] [place] [address] 04/29/2024 11:15 AM EST Scheduled View Only Radiation Oncology at [address] [address] 04/30/2024 11:30 AM EST Scheduled View Only Radiation Oncology at [address] [address] 05/01/2024 11:15 AM EST Scheduled View Only Radiation Oncology at [address] [address] 05/04/2024 10:45 AM EST Scheduled View Only Radiation Oncology at [address] [address] 05/05/2024 1:00 PM EST Scheduled View Only Radiation Oncology at [address] [address] 05/05/2024 1:15 PM EST Office Visit Radiation Oncology at [address] [address] [facility] [place] [address] 05/06/2024 1:00 PM EST Scheduled View Only Radiation Oncology at [address] [address] 05/07/2024 1:00 PM EST Scheduled View Only Radiation Oncology at [address] [address] 05/08/2024 1:00 PM EST Scheduled View Only Radiation Oncology at [address] [address] 05/11/2024 11:30 AM EST Scheduled View Only Radiation Oncology at [address] [address] 01/13/2025 1:00 PM EST Office Visit Hematology/Oncology at [address] [address] Lee Ann Jay MD [facility] HEMATOLOGY [place] [address] [facility] HEMATOLOGY [place] [address] documented as of this encounter Visit Diagnoses Not on filedocumented in this encounter Care Teams Truck Bench Mechanic Relationship Specialty Start Date End Date Julia Chatterjee MD [address] [facility] [address] [place] [address] PCP - General 01/31/10 documented as of this encounter
--- OUTSIDE RECORDS SUMMARY | 2024-04-17 01:21 | XMS_ITS | Encounter Summary ---
Author Organization [facility] Address [facility] [place] [address] Care Team Providers Care Mold Machine Operator Name Role Phone Julia Chatterjee MD Primary Care Provider [phone] Encounter Details Date Type Department Care Team (Latest Contact Info) Description 01/01/2024 12:32 PM EDT - 01/01/2024 11:59 PM EDT Hospital Encounter [place] [address] Jodee Ortega MD [facility] [place] [address] Abnormal finding on breast imaging Discharge Disposition: [...] EST Scheduled View Only Radiation Oncology at [address] [address] 04/20/2024 12:45 PM EST Scheduled View Only Radiation Oncology at [address] [address] 04/21/2024 10:45 AM EST Scheduled View Only Radiation Oncology at [address] [address] 04/21/2024 11:00 AM EST Office Visit Radiation Oncology at [address] [address] Radha Casiano MD [facility] [place] [place] [address] 04/22/2024 3:00 PM EST Scheduled View Only Radiation Oncology at [address] [address] 04/23/2024 3:00 PM EST Scheduled View Only Radiation Oncology at [address] [address] 04/24/2024 3:00 PM EST Scheduled View Only Radiation Oncology at [address] [address] 04/27/2024 11:15 AM EST Scheduled View Only Radiation Oncology at [address] [address] 04/28/2024 11:30 AM EST Scheduled View Only Radiation Oncology at [address] [address] 04/28/2024 12:00 PM EST Office Visit Radiation Oncology at [address] [address] Radha Casiano MD [facility] [place] [address] 04/28/2024 2:00 PM EST Office Visit Cardiology at [address] [place] [address] Letty Montejo APRN [facility] [place] [address] 04/29/2024 11:15 AM EST Scheduled View Only Radiation Oncology at [address] [address] 04/30/2024 11:30 AM EST Scheduled View Only Radiation Oncology at [address] [address] 05/01/2024 11:15 AM EST Scheduled View Only Radiation Oncology at [address] [address] 05/04/2024 10:45 AM EST Scheduled View Only Radiation Oncology at [address] [address] 05/05/2024 1:00 PM EST Scheduled View Only Radiation Oncology at [address] [address] 05/05/2024 1:15 PM EST Office Visit Radiation Oncology at [address] [address] Radha Casiano MD [facility] [place] [address] 05/06/2024 1:00 PM EST Scheduled View Only Radiation Oncology at [address] [address] 05/07/2024 1:00 PM EST Scheduled View Only Radiation Oncology at [address] [address] 05/08/2024 1:00 PM EST Scheduled View Only Radiation Oncology at [address] [address] 05/11/2024 11:30 AM EST Scheduled View Only Radiation Oncology at [address] [address] 01/13/2025 1:00 PM EST Office Visit Hematology/Oncology at [address] [address] Lee Ann Jay MD [facility] [place] [address] Leti Anderson APRN [facility] [place] [address] documented as of this encounter Procedures Procedure Name Priority Date/Time Associated Diagnosis Comments MAMMO BREAST US LIMITED LEFT Routine 01/01/2024 1:28 PM EDT Abnormal finding on breast imaging documented in this encounter Results * US Breast Limited Left (01/01/2024 1:28 PM EDT) WORKSTATION ID [id number] DH RAD Anatomical Region Laterality Modality Breast Left Mammography Impressions 01/01/2024 1:42 PM EDT Benign-appearing mass which likely corresponds to the MRI finding. However, the patient is scheduled to have MR guided biopsy of an additional area in her right breast and it may be most prudent to also pursue left-sided MR guided biopsy to be absolutely certain of correlation and diagnosis prior to definitive treatment of the contralateral cancer. RECOMMENDATION: MRI guided biopsy for the left breast enhancing mass Results and recommendations were discussed with the patient who agrees with the plan. FINAL ASSESSMENT: BI-RADS Category 4a: Suspicious Finding - Biopsy Should Be Considered. ??Low suspicion of malignancy (more than 2% but no more than 10%) Thank you for letting us participate in the care of this patient. ??If you are a health care provider and have any questions regarding this report, please contact the number below. ??For patients who have questions please contact the health lawn care worker that requested your imaging first. ? Narrative 01/01/2024 1:42 PM EDT EXAMINATION: US ??BREAST LIMITED LEFT CLINICAL HISTORY: 73 year-old with recently diagnosed right breast cancer. Staging MRI showed an enhancing mass in the left lateral breast for which ultrasound was recommended. COMPARISONS: Recent MRI and mammography AREA SCANNED: . Left lateral breast FINDINGS: At approximately 2:30, about 6 cm from the nipple, there is an elliptical, circumscribed, hypoechoic, parallel, nonshadowing mass measuring 0.9 x 1.0 x 0.3 cm. This corresponds approximately to the MRI finding in location and shape and shows benign sonographic features. Jodee Ortega MD IMG MAMMO ORDERABLES documented in this encounter Visit Diagnoses Diagnosis Abnormal finding on breast imaging Other (abnormal) findings on radiological examination of breast documented in this encounter Care Teams Mold Machine Operator Relationship Specialty Start Date End Date Julia Chatterjee MD [address] [place] [address] PCP - General 01/31/10 documented as of this encounter
--- OUTSIDE RECORDS SUMMARY | 2024-04-17 01:21 | XMS_ITS | Encounter Summary ---
Author Organization [facility] [place] [address] Care Team Providers Care Engineering Inspection Assistant Name Role Phone Julia Chatterjee MD Primary Care Provider Reason for Visit * Diagnostic Test (Routine) - Closed Specialty Diagnoses / Procedures Referred By Contac t Referred To Contact Radiology Diagnoses Malignant neoplasm of right female breast, unspecified estrogen receptor status, unspecified site of breast Procedures MRI Breast wwo Contrast Bilat Martina Pugh MD [facility] [place] [address] [place] [address] Referral ID Status Reason Start Date Expiration Date V isits Requested Visits Authorized [id number] Closed Specialty Service Requested 12/06/2023 06/04/2025 1 1 Encounter Details Date Type Department Care Team (Latest Contact Info) Description 12/24/2023 3:38 PM EDT - 12/24/2023 11:59 PM EDT Hospital [place] [address] Martina Pugh MD [facility] [place] [address] Discharge Disposition: Home Social History [...] EST Scheduled View Only Radiation Oncology at [address] [address] 04/20/2024 12:45 PM EST Scheduled View Only Radiation Oncology at [address] [address] 04/21/2024 10:45 AM EST Scheduled View Only Radiation Oncology at [address] [phone] 04/21/2024 11:00 AM EST Office Visit Radiation Oncology at [address] [address] Radha Casiano MD [facility] [place] [address] 04/22/2024 3:00 PM EST Scheduled View Only Radiation Oncology at [address] [address] 04/23/2024 3:00 PM EST Scheduled View Only Radiation Oncology at [address] [address] 04/24/2024 3:00 PM EST Scheduled View Only Radiation Oncology at [address] [address] 04/27/2024 11:15 AM EST Scheduled View Only Radiation Oncology at [address] [address] 04/28/2024 11:30 AM EST Scheduled View Only Radiation Oncology at [address] [address] 04/28/2024 12:00 PM EST Office Visit Radiation Oncology at [address] [address] Radha Casiano MD [facility] [place] [address] 04/28/2024 2:00 PM EST Office Visit Cardiology at [address] [place] [address] Letty Montejo APRN [facility] [place] [address] 04/29/2024 11:15 AM EST Scheduled View Only Radiation Oncology at [address] [address] 04/30/2024 11:30 AM EST Scheduled View Only Radiation Oncology at [address] [address] 05/01/2024 11:15 AM EST Scheduled View Only Radiation Oncology at [address] [address] 05/04/2024 10:45 AM EST Scheduled View Only Radiation Oncology at [address] [address] 05/05/2024 1:00 PM EST Scheduled View Only Radiation Oncology at [address] [address] 05/05/2024 1:15 PM EST Office Visit Radiation Oncology at [address] [address] Radha Casiano MD [facility] [place] [address] 05/06/2024 1:00 PM EST Scheduled View Only Radiation Oncology at [address] [address] 05/07/2024 1:00 PM EST Scheduled View Only Radiation Oncology at [address] [address] 05/08/2024 1:00 PM EST Scheduled View Only Radiation Oncology at [address] [address] 05/11/2024 11:30 AM EST Scheduled View Only Radiation Oncology at [address] [address] 01/13/2025 1:00 PM EST Office Visit Hematology/Oncology at [address] [address] Lee Ann Jay MD [facility] DR [place] [address] Leti Anderson APRN [facility] DR [place] [address] documented as of this encounter Procedures Procedure Name Priority Date/Time Associated Diagnosis Comments MRI BREAST WWO CONTRAST BILAT Routine 12/24/2023 5:26 PM EDT Malignant neoplasm of right female breast, unspecified estrogen receptor status, unspecified site of breast documented in this encounter Visit Diagnoses Not on filedocumented in this encounter Administered Medications Inactive Administered Medications - up to 3 most recent administrations Medication Order MAR Action Action Date Dose Rate Site gadoterate meglumine (Dotarem) (0.5 mMol/mL) injection solution 0-100 mL 0-100 mL, Intravenous, ONCE PRN, 1 dose, Starting on Sat12/24/23 at 1713, Until Sat12/24/23 at 1714, Per Protocol, Radiology Contrast, Routine Given 12/24/2023 5:14 PM EDT 14 mLs documented in this encounter Care Teams Engineering Inspection Assistant Relationship Specialty Start Date End Date Julia Chatterjee MD [facility] [address] [place] [address] PCP - General 01/31/10 documented as of this encounter
--- OUTSIDE RECORDS SUMMARY | 2024-04-17 01:21 | XMS_ITS | Encounter Summary ---
Author Organization [facility] Address [facility] [place] [address] Care Team Providers Care Gas Turbine Powerplant Mechanic Name Role Phone Julia Chatterjee MD Primary Care Provider [phone] Reason for Visit * Treatment/Therapy Plan Authorization (Routine) - Authorized Specialty Diagnoses / Procedures Referred By Contac t Referred To Contact Diagnoses Neutropenia, unspecified type Large granular lymphocytic leukemia Procedures TC FILGRASTIM (G-CSF), BIOSIMILAR, 1 MCG, INJECTION Leti Adam, SPEED WINDER [facility] [place] [address] Stj Hem Onc Infusion [address] [place] [phone] Referral ID Status Reason Start Date Expiration Date V isits Requested Visits Authorized [id number] Authorized 01/07/2024 01/06/2025 99 99 Encounter Details Date Type Department Care Team (Late st Contact Info) Description 01/15/2024 3:30 PM EST Infusion Hematology Oncology at [address] [address] Neutropenia, unspecified type; Large granular lymphocytic leukemia Social History Tobacco Use Types Packs/Day Years Used Date Smoking Tobacco: Never Smokeless Tobacco: Never Comments:never vape Alcohol Use Standard Drinks/Week Comments Yes 4 (1 standard drink = 0.6 oz pur e alcohol) Overall Financial Resource Strain (CARDIA) Lamonte r Date Recorded How hard is it [...] Progress Notes * Melany Alvarado RN - 01/15/2024 3:30 PM EST INFUSION THERAPY ADMINISTRATION NOTES DIAGNOSIS: [...] EST Scheduled View Only Radiation Oncology at [address] [address] 04/20/2024 12:45 PM EST Scheduled View Only Radiation Oncology at [address] [address] 04/21/2024 10:45 AM EST Scheduled View Only Radiation Oncology at [address] [phone] 04/21/2024 11:00 AM EST Office Visit Radiation Oncology at [address] [address] Radha Casiano MD [facility] [place] [address] 04/22/2024 3:00 PM EST Scheduled View Only Radiation Oncology at [address] [address] 04/23/2024 3:00 PM EST Scheduled View Only Radiation Oncology at [address] [address] 04/24/2024 3:00 PM EST Scheduled View Only Radiation Oncology at [address] [address] 04/27/2024 11:15 AM EST Scheduled View Only Radiation Oncology at [address] [address] 04/28/2024 11:30 AM EST Scheduled View Only Radiation Oncology at [address] [address] 04/28/2024 12:00 PM EST Office Visit Radiation Oncology at [address] [address] Radha Casiano MD [facility] [place] [address] 04/28/2024 2:00 PM EST Office Visit Cardiology at [address] [place] [address] Letty Montejo, JAYLEN [facility] [place] [address] 04/29/2024 11:15 AM EST Scheduled View Only Radiation Oncology at [address] [address] 04/30/2024 11:30 AM EST Scheduled View Only Radiation Oncology at [address] [address] 05/01/2024 11:15 AM EST Scheduled View Only Radiation Oncology at [address] [address] 05/04/2024 10:45 AM EST Scheduled View Only Radiation Oncology at [address] [address] 05/05/2024 1:00 PM EST Scheduled View Only Radiation Oncology at [address] [address] 05/05/2024 1:15 PM EST Office Visit Radiation Oncology at [address] [address] Radha Casiano MD [facility] [place] [address] 05/06/2024 1:00 PM EST Scheduled View Only Radiation Oncology at [address] [address] 05/07/2024 1:00 PM EST Scheduled View Only Radiation Oncology at [address] [address] 05/08/2024 1:00 PM EST Scheduled View Only Radiation Oncology at [address] [address] 05/11/2024 11:30 AM EST Scheduled View Only Radiation Oncology at [address] [address] 01/13/2025 1:00 PM EST Office Visit Hematology/Oncology at [address] [address] Lee Ann Jay MD [facility] [place] [address] Leti Anderson APRN 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 Bring to room temperature 30 minutes before administration, Routine Given 01/15/2024 3:53 PM EST 480 mcg Left Lower Quadrant documented in this encounter Care Teams Gas Turbine Powerplant Mechanic Relationship Specialty Start Date End Date Julia Chatterjee MD [address] [place] [address] PCP - General 01/31/10 documented as of this encounter
--- OUTSIDE RECORDS SUMMARY | 2024-04-17 01:21 | XMS_ITS | Encounter Summary ---
[place] [address] Care Team Providers Care Technical Document Writer Name Role Phone Julia Chatterjee MD Primary Care Provider [phone] Reason for Referral * Diagnostic Test (Routine) - Closed Specialty Diagnoses / Procedures Referred By Contac t Referred To Contact Radiology Diagnoses Malignant neoplasm of right female breast, unspecified estrogen receptor status, unspecified site of breast Procedures MRI Breast wwo Contrast Martina Woodward MD [facility] [place] [address] [place] [address] Referral ID Status Reason Start Date Expiration Date V isits Requested Visits Authorized [id number] Closed Specialty Service Requested 12/06/2023 06/04/2025 1 1 Reason for Visit * Diagnostic Test (Routine) - Closed Specialty Diagnoses / Procedures Referred By Contac t Referred To Contact Radiology Diagnoses Malignant neoplasm of right female breast, unspecified estrogen receptor status, unspecified site of breast Procedures MRI Breast wwo Contrast Martina Woodward MD [facility] [place] [address] [place] [address] Referral ID Status Reason Start Date Expiration Date V isits Requested Visits Authorized [id number] Closed Specialty Service Requested 12/06/2023 06/04/2025 1 1 Encounter Details Date Type Department Care Team (Latest Contact Info) Description 12/24/2023 3:37 PM EDT Hospital Encounter MRI at [facility] [place] [address] Martina Pugh MD [facility] [place] [address] Malignant neoplasm of right female breast, unspecified [...] as of this encounter Progress Notes * Milan Remy LPN - 12/19/2023 10:22 AM EDT MRI PRE-SEDATION ASSESSMENT NOTE NAME: Leti Parry AGE: 73 y.o. : [address] [facility] [address] Female [phone] (home) Telephone Information: Julia Chatterjee MD No primary care provider on file. Allergies Allergen Reactions Benzalkonium Chloride Gluten Date/Time of call: December 19, 2023/9:10 AM/ SCHEDULED SCAN: MRI BREAST WWO CONTRAST BILAT [[id number]] HEIGHT: 160cm WEIGHT: 68kg Have you had a PREVIOUS MRI SCAN? Yes Are you claustrophobic or anxious in the scanner? Yes CAN YOU LAY FLAT? Yes Do you have trouble breathing when lying flat? No DO YOU HAVE ANY INVOLUNTARY MOVEMENTS? No DO YOU TAKE PAIN MEDICATION ON A DAILY BASIS? No PLAN: Ativan 0.5mg/PO x2 (unless MRI previously tolerated with Valium) You must have a otr owner operator truck driver present when you check in. This patient has been informed that they require a otr owner operator truck driver to drive them home after this procedure. In the absence of a otr owner operator truck driver, IR will not be able tosedate for your scan. Pt verbalized understanding of these instructions during the pre-procedure education via phone. Yes Montez Parry (Spouse) [phone] (Home Phone) PRIOR SCAN DATE/S SEDATION TYPE SUCCESSFUL None 12/24/23 Breast wwo Ativan 0.5mg Po x 1 Revised 09/04/2022 documented in this encounter Plan of Treatment Upcoming Encounters Date Type Department Care Team (Late st Contact Info) Description 04/17/2024 2:30 PM EST Scheduled View Only Radiation Oncology at [address] [address] 04/20/2024 12:45 PM EST Scheduled View Only Radiation Oncology at [address] [address] 04/21/2024 10:45 AM EST Scheduled View Only Radiation Oncology at [address] [address] 04/21/2024 11:00 AM EST Office Visit Radiation Oncology at [address] [address] Radha Casiano MD [facility] [place] [address] 04/22/2024 3:00 PM EST Scheduled View Only Radiation Oncology at [address] [address] 04/23/2024 3:00 PM EST Scheduled View Only Radiation Oncology at [address] [address] 04/24/2024 3:00 PM EST Scheduled View Only Radiation Oncology at [address] [address] 04/27/2024 11:15 AM EST Scheduled View Only Radiation Oncology at [address] [address] 04/28/2024 11:30 AM EST Scheduled View Only Radiation Oncology at [address] [address] 04/28/2024 12:00 PM EST Office Visit Radiation Oncology at [address] [address] Radha Casiano MD [facility] [place] [address] 04/28/2024 2:00 PM EST Office Visit Cardiology at [address] [place] [address] Letty Montejo, JAYLEN [facility] [place] [address] 04/29/2024 11:15 AM EST Scheduled View Only Radiation Oncology at [address] [address] 04/30/2024 11:30 AM EST Scheduled View Only Radiation Oncology at [address] [address] 05/01/2024 11:15 AM EST Scheduled View Only Radiation Oncology at [address] [address] 05/04/2024 10:45 AM EST Scheduled View Only Radiation Oncology at [address] [address] 05/05/2024 1:00 PM EST Scheduled View Only Radiation Oncology at [address] [address] 05/05/2024 1:15 PM EST Office Visit Radiation Oncology at [address] [address] Radha Casiano MD [facility] [place] [address] 05/06/2024 1:00 PM EST Scheduled View Only Radiation Oncology at [address] [address] 05/07/2024 1:00 PM EST Scheduled View Only Radiation Oncology at [address] [address] 05/08/2024 1:00 PM EST Scheduled View Only Radiation Oncology at [address] [address] 05/11/2024 11:30 AM EST Scheduled View Only Radiation Oncology at [address] [address] 01/13/2025 1:00 PM EST Office Visit Hematology/Oncology at [address] [address] Lee Ann Jay MD [facility] [place] [address] Leti Anderson, JAYLEN [facility] [place] [address] [phone] (work) documented as of this encounter Procedures Procedure Name Priority Date/Time Associated Diagnosis Comments MRI BREAST WWO CONTRAST BILAT Routine 12/24/2023 5:26 PM EDT Malignant neoplasm of right female breast, unspecified estrogen receptor status, unspecified site of breast documented in this encounter Results * MRI Breast wwo Contrast Bilat (12/24/2023 5:26 PM EDT) WORKSTATION ID [id number] DH RAD Anatomical [...] who have questions please contact the health hospice care transitions coordinator that requested your imaging first. ? Electronically signed by: Kathia Trimble [facility] ([phone]), at 12/25/2023 1:08 PM Narrative 12/25/2023 1:08 [...] contrast enhancement curve analysis was performed, using [employer]KOV[employer] software. COMPARISON STUDIES: Compared and/or correlated with [...] chest wall or skin. Martina Pugh MD [facility] MRI ORDERABLE S documented in this encounter Visit Diagnoses Diagnosis Malignant neoplasm of right female breast, unspecified estrogen receptor status, unspecified site of breast documented in this encounter Administered Medications Inactive Administered Medications - up to 3 most recent administrations Medication Order MAR Action Action Date Dose Rate Site LORazepam (Ativan) tablet 0.5 mg 0.5 mg, Oral, EVERY 30 MIN PRN, 2 doses, Starting on Sat12/24/23 at 0707, Until Sat12/25/23 at 0434, Anxiety, Minimal Sedation per Department of Radiology Adult Minimal Sedation Guidelines: Give 50 minutes prior to scan., Angio/IR (Day of Procedure), Routine Given 12/24/2023 3:52 PM EDT 0.5 mg documented in this encounter Care Teams Technical Document Writer Relationship Specialty Start Date End Date Julia Chatterjee MD [facility] [address] [place] [address] PCP - General 01/31/10 documented as of this encounter
--- OUTSIDE RECORDS SUMMARY | 2024-04-17 01:21 | XMS_ITS | Encounter Summary ---
Author Organization [facility] [place] [address] Care Team Providers Care Float Phlebotomist Name Role Phone Julia Chatterjee MD Primary Care Provider [phone] Encounter Details Date Type Department Care Team (Late st Contact Info) Description 12/09/2023 Patient Outreach [place]ematology [place] [id number] Jessie Victor, RN Social History Tobacco Use Types Packs/Day [...] as of this encounter Progress Notes * Jessie Victor RN - 12/09/2023 3:34 PM EDT [facility] Nurse Navigation Patient Care Plan for the Comprehensive Breast Program (CBP) Date of call: 12/08 Reason for call: contacted Leti Parry via phone to assess for nurse navigation services after Samina Tate RN, nurse navigator in radiology, informed her that her breast biopsy results indicated she has breast cancer, and to introduce her to the CBP. Leti Parry is a 73 y.o. 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 Leti sounds positive and has support from her family and friends. Her will accompany her to appointments. She appears to be coping well but is anxious to meet with a breast surgeon to determine a treatment plan. They were driving as we spoke (saw her grandson's game in [place], now headed to her sister's in [facility] and then to the [facility] [place]), going on a 2 week vacation. We reviewed that Dr. Pugh will discuss surgical options [partial mastectomy (which may be followed by radiation) or mastectomy] with her and she will meet with a medical oncologist after surgery to discuss systemic treatment (endocrine therapy). Leti is interested in partial mastectomy if recommended. Menopausal status: Postmenopausal Noah is active. Plan: Appointments for breast MRI and consultation with a breast surgeon have been scheduled. She was introduced to the CBP and told she would receive information about her diagnosis and treatment for her review (the Breast Cancer Treatment Handbook). Our social worker assistant will meet with Leti on the day of her surgical oncology consultation. She understands that JAMES Bo, MEGHAN, our social worker assistant, and I are available to her for support/concerns. Addressed her questions and encouraged her to contact me with any additional questions or concerns.She has our contact information. Laterality:Right Is this a recurrence:No Family history of breast cancer:No Family history of ovarian cancer: No Personal history or breast cancer:No Method of detection: Mammogram Method of diagnosis: Stereotactic Biopsy Identified Barriers: Patient comments or concerns: none identified at this time. She has no concerns regarding insurance(state she has good coverage), finances or transportation. documented in this encounter Plan of Treatment Upcoming Encounters Date Type Department Care Team ([facility] Contact Info) Description 04/17/2024 2:30 PM EST Scheduled View Only Radiation Oncology at [address] [phone] 04/20/2024 12:45 PM EST Scheduled View Only Radiation Oncology at [address] [address] 04/21/2024 10:45 AM EST Scheduled View Only Radiation Oncology at [address] [address] 04/21/2024 11:00 AM EST Office Visit Radiation Oncology at [address] [address] Radha Casiano MD [facility] [place] [place] [address] 04/22/2024 3:00 PM EST Scheduled View Only Radiation Oncology at [address] [address] 04/23/2024 3:00 PM EST Scheduled View Only Radiation Oncology at [address] [phone] 04/24/2024 3:00 PM EST Scheduled View Only Radiation Oncology at [address] [address] 04/27/2024 11:15 AM EST Scheduled View Only Radiation Oncology at [address] [address] 04/28/2024 11:30 AM EST Scheduled View Only Radiation Oncology at [address] [address] 04/28/2024 12:00 PM EST Office Visit Radiation Oncology at [address] [address] Radha Casiano MD [facility] [place] [address] 04/28/2024 2:00 PM EST Office Visit Cardiology at [address] [place] [address] Letty Montejo APRN [facility] [place] [address] 04/29/2024 11:15 AM EST Scheduled View Only Radiation Oncology at [address] [address] 04/30/2024 11:30 AM EST Scheduled View Only Radiation Oncology at [address] [address] 05/01/2024 11:15 AM EST Scheduled View Only Radiation Oncology at [address] [address] 05/04/2024 10:45 AM EST Scheduled View Only Radiation Oncology at [address] [address] 05/05/2024 1:00 PM EST Scheduled View Only Radiation Oncology at [address] [address] 05/05/2024 1:15 PM EST Office Visit Radiation Oncology at [address] [address] Radha Casiano MD [facility] [place] [address] 05/06/2024 1:00 PM EST Scheduled View Only Radiation Oncology at [address] [address] 05/07/2024 1:00 PM EST Scheduled View Only Radiation Oncology at [address] [address] 05/08/2024 1:00 PM EST Scheduled View Only Radiation Oncology at [address] [address] 05/11/2024 11:30 AM EST Scheduled View Only Radiation Oncology at [address] [address] 01/13/2025 1:00 PM EST Office Visit Hematology/Oncology at [address] [address] Lee Ann Jay MD [facility] [place] [address] Leti Anderson APRN [facility] [place] [address] documented as of this encounter Visit Diagnoses Not on filedocumented in this encounter Care Teams Float Phlebotomist Relationship Specialty Start Date End Date Julia Chatterjee MD [facility] [address] [place] [address] PCP - General 01/31/10 documented as of this encounter
--- OUTSIDE RECORDS SUMMARY | 2024-04-17 01:21 | XMS_ITS | Encounter Summary ---
Author Organization [facility] Address [facility] [place] [address] Care Team Providers Care Technical Program Manager Name Role Phone Julia Chatterjee MD Primary Care Provider [phone] Encounter Details Date Type Department Care Team (Late st Contact Info) Description 01/07/2024 Orders Only Hematology [place] [address] Leti Anderson, TIMBER MANAGEMENT TECHNICIAN [facility] DR HEMATOLOGY [place] [address] Social History Tobacco Use Types Packs/Day Years [...] EST Scheduled View Only Radiation Oncology at [address] [address] 04/20/2024 12:45 PM EST Scheduled View Only Radiation Oncology at [address] [address] 04/21/2024 10:45 AM EST Scheduled View Only Radiation Oncology at [address] [phone] 04/21/2024 11:00 AM EST Office Visit Radiation Oncology at [address] [address] Radha Casiano MD [facility] [place] [address] 04/22/2024 3:00 PM EST Scheduled View Only Radiation Oncology at [address] [address] 04/23/2024 3:00 PM EST Scheduled View Only Radiation Oncology at [address] [address] 04/24/2024 3:00 PM EST Scheduled View Only Radiation Oncology at [address] [address] 04/27/2024 11:15 AM EST Scheduled View Only Radiation Oncology at [address] [address] 04/28/2024 11:30 AM EST Scheduled View Only Radiation Oncology at [address] [address] 04/28/2024 12:00 PM EST Office Visit Radiation Oncology at [address] [address] Radha Casiano MD [facility] [place] [address] 04/28/2024 2:00 PM EST Office Visit Cardiology at [address] [place] [address] Letty Montejo APRN [facility] [place] [address] 04/29/2024 11:15 AM EST Scheduled View Only Radiation Oncology at [address] [address] 04/30/2024 11:30 AM EST Scheduled View Only Radiation Oncology at [address] [address] 05/01/2024 11:15 AM EST Scheduled View Only Radiation Oncology at [address] [address] 05/04/2024 10:45 AM EST Scheduled View Only Radiation Oncology at [address] [address] 05/05/2024 1:00 PM EST Scheduled View Only Radiation Oncology at [address] [address] 05/05/2024 1:15 PM EST Office Visit Radiation Oncology at [address] [address] Radha Casiano MD [facility] [place] [address] 05/06/2024 1:00 PM EST Scheduled View Only Radiation Oncology at [address] [address] 05/07/2024 1:00 PM EST Scheduled View Only Radiation Oncology at [address] [address] 05/08/2024 1:00 PM EST Scheduled View Only Radiation Oncology at [address] [phone] 05/11/2024 11:30 AM EST Scheduled View Only Radiation Oncology at [address] [address] 01/13/2025 1:00 PM EST Office Visit Hematology/Oncology at [address] [phone] Lee Ann Jay MD [facility] DR HEMATOLOG[place] [address] Leti Anderson APRN [facility] [place] [address] documented as of this encounter Visit Diagnoses Not on filedocumented in this encounter Care Teams Technical Program Manager Relationship Specialty Start Date End Date Julia Chatterjee MD [address] [place] [address] PCP - General 01/31/10 documented as of this encounter
--- OUTSIDE RECORDS SUMMARY | 2024-04-17 01:21 | XMS_ITS | Encounter Summary ---
Author Organization [facility] Address [facility] [place] [address] Care Team Providers Care Second Crusher Name Role Phone Julia Chatterjee MD Primary Care Provider [phone] Reason for Visit * Reason Comments Establish Care * Consultation (Routine) - Closed Specialty Diagnoses / Procedures Referred By Contac t Referred To Contact General Surgery / Hematology and Oncology Diagnoses Breast cancer R DCIS (dc) Procedures [facility] Julia Chatterjee MD [address] [place] [address] [facility] [address] [place] [address] Martina Pugh MD [facility] [place] [address] Referral ID Status Reason Start Date Expiration Date Visits Re quested Visits Authorized [id number] Closed 12/26/2023 12/25/2024 1 1 Encounter Details Date Type Department Care Team (Late st Contact Info) Description 12/26/2023 2:00 PM EDT Office Visit [place]ology [place] [address] Martina Pugh MD [facility] [place] [address] Ductal carcinoma in situ (DCIS) of right breast (Primary Dx); Mass of upper outer quadrant of left breast Social History Tobacco Use Types Packs/Day [...] Sign Reading Time Taken Comments Blood Pressure 129/82 12/26/2023 2:04 PM EDT Pulse 74 12/26/2023 2:04 PM EDT Temperature 36.5 ??C (97.7 ??F) 12/26/2023 2:04 PM ED T Respiratory Rate 17 12/26/2023 2:04 PM EDT Oxygen Saturation 95% 12/26/2023 2:04 PM EDT Inhaled Oxygen Concentration - - Weight 69.5 kg (153 lb 4.8 oz) 12/26/2023 2:04 P M EDT Height 160 cm (5' 2.99) 12/26/2023 2:04 PM EDT Body Mass Index 27.16 12/26/2023 2:04 PM EDT documented in this encounter Progress Notes * Martina Pugh MD - 12/26/2023 2:00 PM EDT BREAST CLINIC OUTPATIENT CONSULTATION Patient: Leti Parry : 1950 AGE: 73 y.o. CONSULTING PHYSICIAN: Martina Pugh MD REFERRING PHYSICIAN: Julia Chatterjee PRIMARY CARE PHYSICIAN: Julia Chatterjee MD REASON FOR VISIT New patient visit HISTORY OF PRESENT ILLNESS: Leti is a [...] H/o hepatic abscess s/p aspiration Past Surgical History: Procedure Laterality Date CT ASPIRATION LIVER 09/02/2019 CT Guided Aspiration Liver 09/02/2019 [facility] RAD CAT SCAN IR DRAIN CHECK/CHANGE/REMOVE 09/28/2019 IR Drain Check/Change/Remove 09/28/2019 Cliff Langston MD [facility] INTERVENTIONL RAD MAMMO STEREOTACTIC BIOPSY RIGHT N/A 12/04/2023 Mammo Stereotactic Biopsy Right 12/04/2023 Tamir Fletcher MD [facility] RAD MAMMOGRAPHY PRO BONE MARROW ASPIRATION W/BX THROUGH SAME INCISION/SITE Right 01/08/2017 ([facility]) BONE MARROW ASP PERFORMED W/BX THRU BX INCISION (WRVU 0.16) performed by Lee Ann Jay MD at [facility] OSC PRO COLONOSCOPY, BIOPSY 07/05/2011 COLONOSCOPY FLEXIBLE, WITH BX performed by AYAZ CASTRO at [facility] ENDOSCOPY PRO COLONOSCOPY, BIOPSY N/A 10/22/2019 COLONOSCOPY FLEXIBLE, WITH BX (WRVU 3.66) performed by Yola Oliveros MD at [facility] ENDOSCOPY PRO COLONOSCOPY, BIOPSY N/A 04/12/2022 COLONOSCOPY FLEXIBLE, WITH BX (WRVU 3.66) performed by Yola Oliveros MD at [facility] ENDOSCOPY PRO COLONOSCOPY, REMV LESN, SNARE 07/05/2011 COLONOSCOPY, POLYPECTOMY, REMOVAL LESION BY SNARE performed by AYAZ CASTRO at [facility] ENDOSCOPY PRO COLONOSCOPY, REMV LESN, SNARE N/A 04/12/2022 COLONOSCOPY, POLYPECTOMY, REMOVAL LESION BY SNARE (WRVU 4.67) performed by Yola Oliveros MD at [facility] ENDOSCOPY PRO DIAGNOSTIC BONE MARROW BIOPSIES Right 01/08/2017 ([facility]) BONE MARROW,BIOPSY (WRVU 1.37) performed by Lee Ann aJy MD at [facility] OSC PRO SIGMOIDOSCOPY, DIAGNOSTIC N/A 09/02/2019 FLEXIBLE SIGMOIDOSCOPY performed by Ayaz Castro MD at [facility] ENDOSCOPY MEDICATIONS: UNABLE TO FIND, ascorbic acid (Vitamin C), cholecalciferol (vitamin D3), magnesium, selenium, and zinc sulfate Allergies Allergen Reactions Stevia [Stevioside (Bulk)] Diarrhea Intolerance with Artificial Sugars - Diarrhea. Benzalkonium Chloride Gluten Family History Problem Relation Age of Onset Breast Cancer Neg Hx Ovarian Cancer Neg Hx Social History Tobacco Use Smoking status: Never [...] of a 14-point review of systems negative. Vitals: 12/26/23 1404 BP: 129/82 Patient Position: Sitting Pulse: 74 Resp: 17 Temp: 36.5 ??C (97.7 ??F) TempSrc: Temporal SpO2: 95% Weight: 69.5 kg (153 lb 4.8 oz) Height: 160 cm (5' 2.99) PHYSICAL EXAM: General: well appearing, alert and oriented x 3. No acute distress. Head and neck: Normocephalic, atraumatic. Sclerae are anicteric. Neck is soft and supple. No masses. No cervical or clavicular adenopathy. Chest/Lungs: CTAB Heart: RRR, no m/r/g Abdomen: Soft, nontender, and nondistended. No palpable masses. No organomegaly detected. Extremities: No cyanosis, clubbing, or edema. Breast exam: A multi-positional bilateral breast exam [...] core biopsy specimens were obtained using a BasisCodeiva 9g device. Biopsy specimens were radiographed. The [...] cells with immunostaining: >90% Stain intensity: Strong ASSESSMENT: Leti is a 73 y.o. woman with right DCIS, HG, ER+ (4cm calcs, 6x4cm NME by MR) clinically node negative and left breast mass (1.1cm) not yet worked up here to discuss management. Patient is a surgical candidate for either breast conservation or total mastectomy with or without immediate reconstruction. I discussed these options for the locoregional management of her breast cancer in detail and reviewed the survival and local recurrence data for both options. She understandsthat that risk of local recurrence is a bit higher with breast conservation and that radiation therapy is usually recommended if she opts for partial mastectomy to help reduce this risk, but that overall survival is equivalent regardless of her surgical choice. She also understands that adjuvant systemic therapy recommendations (endocrine and/or chemotherapy) are also independent of her surgical choice and that she will meet with medical oncology after surgery to discuss this further. We discussed the fact that negative surgical margins are necessary, and that additional surgery may be required to achieve this depending on final pathology. I also explained that partial mastectomy may resultin some asymmetry in comparison to the contralateral breast given the extent of calcifications. We discussed likely incision would be an ellipse with wedge resection of the area of calcs in the rightupper outer breast with bracketed localization. We reviewed her MRI findings and the fact that the NME measures 6 x 4cm and is a bit larger than the calcs seen on MMG. If patient elects to proceed with partial mastectomy, we'd need to biopsy the anterior extent of the NME to determine extent of disease and area of resection needed. Patient wouldlike to proceed with this biopsy to have all options open to her. We also reviewed the LEFT breast mass and plan for MRI directed ultrasound to better assess it's characteristics with possible biopsy. If no correlate is found on ultrasound, we'd proceed with MR guided biopsy. Patient was in agreement with this plan. We reviewed the rationale and technique of axillary staging and its use in the setting of high grade DCIS and comedonecrosis. She has a larger span of calcifications/NME so the likely has a higher risk of invasive cancer on final pathology. She understands that if SLNB is not done at the initial operation, it may be needed based on her final pathology. 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 Will plan to call patient after the above biopsy results are back to finalize her surgical plan. FOLLOW-UP PLAN: - Right MR guided biopsy of the anterior aspect of NME to determine extent of disease - Left breast ultrasound with possible biopsy of the left breast mass - if no correlate by US, MR guided biopsy - Will follow up by phone after these above biopsies to finalize her surgical plan - Will discuss preop needs of G-CSF with Hem Onc I have spent a total of 63 minutes on this patient's care today. This time includes [id number] time with the patient as well as time spent reviewing patient records, coordinating/communicating withcare teams and documenting the patient visit. MARTINA PUGH MD 12/26/2023 documented in this encounter Plan of Treatment Upcoming Encounters Date Type Department Care Team (Late st Contact Info) Description 04/17/2024 2:30 PM EST Scheduled View Only Radiation Oncology at [address] [address] 04/20/2024 12:45 PM EST Scheduled View Only Radiation Oncology at [address] [address] 04/21/2024 10:45 AM EST Scheduled View Only Radiation Oncology at [address] [address] 04/21/2024 11:00 AM EST Office Visit Radiation Oncology at [address] [address] Radha Casiano MD [facility] RADIATION [place] [address] 04/22/2024 3:00 PM EST Scheduled View Only Radiation Oncology at [address] [address] 04/23/2024 3:00 PM EST Scheduled View Only Radiation Oncology at [address] [address] 04/24/2024 3:00 PM EST Scheduled View Only Radiation Oncology at [address] [address] 04/27/2024 11:15 AM EST Scheduled View Only Radiation Oncology at [address] [address] 04/28/2024 11:30 AM EST Scheduled View Only Radiation Oncology at [address] [address] 04/28/2024 12:00 PM EST Office Visit Radiation Oncology at [address] [address] Radha Casiano MD [facility] RADIATION [place] [address] 04/28/2024 2:00 PM EST Office Visit Cardiology at [address] [place] [phone] Letty Montejo, JAYLEN [facility] [place] [address] 04/29/2024 11:15 AM EST Scheduled View Only Radiation Oncology at [address] [address] 04/30/2024 11:30 AM EST Scheduled View Only Radiation Oncology at [address] [address] 05/01/2024 11:15 AM EST Scheduled View Only Radiation Oncology at [address] [address] 05/04/2024 10:45 AM EST Scheduled View Only Radiation Oncology at [address] [address] 05/05/2024 1:00 PM EST Scheduled View Only Radiation Oncology at [address] [address] 05/05/2024 1:15 PM EST Office Visit Radiation Oncology at [address] [address] Radha Casiano MD [facility] [place] [address] 05/06/2024 1:00 PM EST Scheduled View Only Radiation Oncology at [address] [address] 05/07/2024 1:00 PM EST Scheduled View Only Radiation Oncology at [address] [address] 05/08/2024 1:00 PM EST Scheduled View Only Radiation Oncology at [address] [address] 05/11/2024 11:30 AM EST Scheduled View Only Radiation Oncology at [address] [address] 01/13/2025 1:00 PM EST Office Visit Hematology/Oncology at [address] [address] Lee Ann Jay MD [facility] DR [place] [address] Leti Anderson APRN [facility] [place] [address] documented as of this encounter Visit Diagnoses Diagnosis Ductal carcinoma in situ (DCIS) of right breast- Primary Mass of upper outer quadrant of left breast documented in this encounter Care Teams Second Crusher Relationship Specialty Start Date End Date Julia Chatterjee MD [address] [place] [address] PCP - General 01/31/10 documented as of this encounter
--- OUTSIDE RECORDS SUMMARY | 2024-04-17 01:21 | XMS_ITS | Encounter Summary ---
Author Organization [facility] [place] [address] Care Team Providers Care Cemetery Keeper Name Role Phone Julia Chatterjee MD Primary Care Provider [phone] Encounter Details Date Type Department Care Team (Latest Contact Info) Description 12/26/2023 Travel Social History Tobacco Use Types Packs/Day [...] EST Scheduled View Only Radiation Oncology at [address] [phone] 04/20/2024 12:45 PM EST Scheduled View Only Radiation Oncology at [address] [phone] 04/21/2024 10:45 AM EST Scheduled View Only Radiation Oncology at [address] [phone] 04/21/2024 11:00 AM EST Office Visit Radiation Oncology at [address] [address] Radha Casiano MD [facility] [place] [address] 04/22/2024 3:00 PM EST Scheduled View Only Radiation Oncology at [address] [address] 04/23/2024 3:00 PM EST Scheduled View Only Radiation Oncology at [address] [address] 04/24/2024 3:00 PM EST Scheduled View Only Radiation Oncology at [address] [address] 04/27/2024 11:15 AM EST Scheduled View Only Radiation Oncology at [address] [address] 04/28/2024 11:30 AM EST Scheduled View Only Radiation Oncology at [address] [phone] 04/28/2024 12:00 PM EST Office Visit Radiation Oncology at [address] [address] Radha Casiano MD [facility] [place] [address] 04/28/2024 2:00 PM EST Office Visit Cardiology at [address] [place] [address] Letty Montejo, ENGINEERING LABORATORY TECHNICIAN [facility] [place] [id number] 04/29/2024 11:15 AM EST Scheduled View Only Radiation Oncology at [address] [address] 04/30/2024 11:30 AM EST Scheduled View Only Radiation Oncology at [address] [address] 05/01/2024 11:15 AM EST Scheduled View Only Radiation Oncology at [address] [address] 05/04/2024 10:45 AM EST Scheduled View Only Radiation Oncology at [address] [address] 05/05/2024 1:00 PM EST Scheduled View Only Radiation Oncology at [address] [address] 05/05/2024 1:15 PM EST Office Visit Radiation Oncology at [address] [address] Radha Casiano MD [facility] RADIATION ONCOLOGY [place] [id number] 05/06/2024 1:00 PM EST Scheduled View Only Radiation Oncology at [address] [address] 05/07/2024 1:00 PM EST Scheduled View Only Radiation Oncology at [address] [address] 05/08/2024 1:00 PM EST Scheduled View Only Radiation Oncology at [address] [address] 05/11/2024 11:30 AM EST Scheduled View Only Radiation Oncology at [address] [address] 01/13/2025 1:00 PM EST Office Visit Hematology/Oncology at [address] [address] Lee Ann Jay MD [facility] HEMATOLOGY [place] [address] Leti Anderson APRN [facility] HEMATOLOGY [place] [address] documented as of this encounter Visit Diagnoses Not on filedocumented in this encounter Care Teams Cemetery Keeper Relationship Specialty Start Date End Date Julia Chatterjee MD [facility] [address] [place] [address] PCP - General 01/31/10 documented as of this encounter
--- OUTSIDE RECORDS SUMMARY | 2024-04-17 01:21 | XMS_ITS | Encounter Summary ---
Author Organization [facility] [place] [address] Care Team Providers Care Refund Specialist Name Role Phone Julia Chatterjee MD Primary Care Provider [phone] Encounter Details Date Type Department Care Team (Late Contact Info) Description 01/14/2024 Telephone Hematology/Oncology at [address] [address] Leti Anderson, DEPUTY SHERIFF [facility] DR HEMATOLOGY [place] [address] Social History Tobacco Use Types Packs/Day Years [...] EST Scheduled View Only Radiation Oncology at [address] [address] 04/20/2024 12:45 PM EST Scheduled View Only Radiation Oncology at [address] [address] 04/21/2024 10:45 AM EST Scheduled View Only Radiation Oncology at [address] [address] 04/21/2024 11:00 AM EST Office Visit Radiation Oncology at [address] [address] Radha Casiano MD [facility] [place] [address] 04/22/2024 3:00 PM EST Scheduled View Only Radiation Oncology at [address] [phone] 04/23/2024 3:00 PM EST Scheduled View Only Radiation Oncology at [address] [address] 04/24/2024 3:00 PM EST Scheduled View Only Radiation Oncology at [address] [address] 04/27/2024 11:15 AM EST Scheduled View Only Radiation Oncology at [address] [address] 04/28/2024 11:30 AM EST Scheduled View Only Radiation Oncology at [address] [address] 04/28/2024 12:00 PM EST Office Visit Radiation Oncology at [address] [address] Radha Casiano MD [facility] [place] [address] 04/28/2024 2:00 PM EST Office Visit Cardiology at [address] [place] [address] Letty Montejo APRN [facility] [place] [address] 04/29/2024 11:15 AM EST Scheduled View Only Radiation Oncology at [address] [address] 04/30/2024 11:30 AM EST Scheduled View Only Radiation Oncology at [address] [address] 05/01/2024 11:15 AM EST Scheduled View Only Radiation Oncology at [address] [address] 05/04/2024 10:45 AM EST Scheduled View Only Radiation Oncology at [address] [address] 05/05/2024 1:00 PM EST Scheduled View Only Radiation Oncology at [address] [address] 05/05/2024 1:15 PM EST Office Visit Radiation Oncology at [address] [address] Radha Casiano MD [facility] DR [place] [address] 05/06/2024 1:00 PM EST Scheduled View Only Radiation Oncology at [address] [address] 05/07/2024 1:00 PM EST Scheduled View Only Radiation Oncology at [address] [address] 05/08/2024 1:00 PM EST Scheduled View Only Radiation Oncology at [address] [address] 05/11/2024 11:30 AM EST Scheduled View Only Radiation Oncology at [address] [address] 01/13/2025 1:00 PM EST Office Visit Hematology/Oncology at [address] [phone] Lee Ann Jay MD [facility] DR HEMATOLOGY [place] [address] Leti Anderson APRN [facility] HEMATOLOGY [place] [address] Scheduled Orders Name Type Priority Associated Diagnoses Orde r Schedule CBC (with Diff) Lab STAT 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
--- OUTSIDE RECORDS SUMMARY | 2024-04-17 01:21 | XMS_ITS | Encounter Summary ---
Author Organization [facility] [place] [address] Care Team Providers Care Claim Adjuster Name Role Phone Julia Chatterjee MD Primary Care Provider [phone] Encounter Details Date Type Department Care Team (Latest Contact Info) Description 12/24/2023 Travel Social History Tobacco Use Types Packs/Day [...] EST Scheduled View Only Radiation Oncology at [address] [phone] 04/20/2024 12:45 PM EST Scheduled View Only Radiation Oncology at [address] [phone] 04/21/2024 10:45 AM EST Scheduled View Only Radiation Oncology at [address] [address] 04/21/2024 11:00 AM EST Office Visit Radiation Oncology at [address] [address] Radha Casiano MD [facility] [place] [address] 04/22/2024 3:00 PM EST Scheduled View Only Radiation Oncology at [address] [address] 04/23/2024 3:00 PM EST Scheduled View Only Radiation Oncology at [address] [address] 04/24/2024 3:00 PM EST Scheduled View Only Radiation Oncology at [address] [address] 04/27/2024 11:15 AM EST Scheduled View Only Radiation Oncology at [address] [phone] 04/28/2024 11:30 AM EST Scheduled View Only Radiation Oncology at [address] [address] 04/28/2024 12:00 PM EST Office Visit Radiation Oncology at [address] [address] Radha Casiano MD [facility] RAD[place] [address] 04/28/2024 2:00 PM EST Office Visit Cardiology at [address] [place] [address] Letty Montejo, LEGAL SUPPORT ANALYST [facility] [place] [address] 04/29/2024 11:15 AM EST Scheduled View Only Radiation Oncology at [address] [address] 04/30/2024 11:30 AM EST Scheduled View Only Radiation Oncology at [address] [address] 05/01/2024 11:15 AM EST Scheduled View Only Radiation Oncology at [address] [address] 05/04/2024 10:45 AM EST Scheduled View Only Radiation Oncology at [address] [address] 05/05/2024 1:00 PM EST Scheduled View Only Radiation Oncology at [address] [address] 05/05/2024 1:15 PM EST Office Visit Radiation Oncology at [address] [address] Radha Casiano MD [facility] RADIATION ONCOLOGY [place] [phone] 05/06/2024 1:00 PM EST Scheduled View Only Radiation Oncology at [address] [address] 05/07/2024 1:00 PM EST Scheduled View Only Radiation Oncology at [address] [address] 05/08/2024 1:00 PM EST Scheduled View Only Radiation Oncology at [address] [address] 05/11/2024 11:30 AM EST Scheduled View Only Radiation Oncology at [address] [address] 01/13/2025 1:00 PM EST Office Visit Hematology/Oncology at [address] [address] Lee Ann Jay MD [facility] [place] [address] Leti Anderson APRN [facility] [place] [address] documented as of this encounter Visit Diagnoses Not on filedocumented in this encounter Care Teams Claim Adjuster Relationship Specialty Start Date End Date Julia Chatterjee MD [facility] [address] [place] [address] PCP - General 01/31/10 documented as of this encounter
--- OUTSIDE RECORDS SUMMARY | 2024-04-17 01:21 | XMS_ITS | Encounter Summary ---
Author Organization [facility] Address [facility] [place] [address] Care Team Providers Care Perl Developer Name Role Phone Julia Chatterjee MD Primary Care Provider [phone] Encounter Details Date Type Department Care Team (Latest Contact Info) Description 01/16/2024 10:50 AM EST - 01/16/2024 11:59 PM EST Hospital [place] [address] Jodee Ortega MD [facility] [place] [address] Abnormal finding on breast imaging Discharge Disposition: [...] EST Scheduled View Only Radiation Oncology at [address] [address] 04/20/2024 12:45 PM EST Scheduled View Only Radiation Oncology at [address] [address] 04/21/2024 10:45 AM EST Scheduled View Only Radiation Oncology at [address] [address] 04/21/2024 11:00 AM EST Office Visit Radiation Oncology at [address] [address] Radha Casiano MD [facility] [place] [address] 04/22/2024 3:00 PM EST Scheduled View Only Radiation Oncology at [address] [address] 04/23/2024 3:00 PM EST Scheduled View Only Radiation Oncology at [address] [address] 04/24/2024 3:00 PM EST Scheduled View Only Radiation Oncology at [address] [address] 04/27/2024 11:15 AM EST Scheduled View Only Radiation Oncology at [address] [address] 04/28/2024 11:30 AM EST Scheduled View Only Radiation Oncology at [address] [address] 04/28/2024 12:00 PM EST Office Visit Radiation Oncology at [address] [address] Radha Casiano MD [facility] [place] [address] 04/28/2024 2:00 PM EST Office Visit Cardiology at [address] [place] [address] Letty Montejo APRN [facility] [place] [place] [address] 04/29/2024 11:15 AM EST Scheduled View Only Radiation Oncology at [address] [address] 04/30/2024 11:30 AM EST Scheduled View Only Radiation Oncology at [address] [address] 05/01/2024 11:15 AM EST Scheduled View Only Radiation Oncology at [address] [address] 05/04/2024 10:45 AM EST Scheduled View Only Radiation Oncology at [address] [address] 05/05/2024 1:00 PM EST Scheduled View Only Radiation Oncology at [address] [address] 05/05/2024 1:15 PM EST Office Visit Radiation Oncology at [address] [address] Radha Casiano MD [facility] [place] [address] 05/06/2024 1:00 PM EST Scheduled View Only Radiation Oncology at [address] [address] 05/07/2024 1:00 PM EST Scheduled View Only Radiation Oncology at [address] [address] 05/08/2024 1:00 PM EST Scheduled View Only Radiation Oncology at [address] [address] 05/11/2024 11:30 AM EST Scheduled View Only Radiation Oncology at [address] [address] 01/13/2025 1:00 PM EST Office Visit Hematology/Oncology at [address] [address] Lee Ann Jay MD [facility] DR [place] [address] Leti Anderson APRN [facility] [address] [place] [address] documented as of this encounter Procedures Procedure Name Priority Date/Time Associated Diagnosis Comments MAMMO DIAGNOSTIC WITHOUT CAD BILATERAL Routine 01/16/2024 11:10 AM EST Abnormal finding on breast imaging documented in this encounter Results * Mammo Diagnostic Without Cad Bilateral (01/16/2024 11:10 AM EST) WORKSTATION ID [id number] 1 DH RAD Anatomical Region Laterality Modality [...] who have questions please contact the health gericare aide that requested your imaging first. ? [facility] [place] [address] [place] ??[address] Jodee Ortega MD IMG MAMMO ORDERABLES documented in this encounter Visit Diagnoses Diagnosis Abnormal finding on breast imaging Other (abnormal) findings on radiological examination of breast documented in this encounter Care Teams Perl Developer Relationship Specialty Start Date End Date Julia Chatterjee MD [facility] KINA [address] [place] [address] PCP - General 01/31/10 documented as of this encounter
--- OUTSIDE RECORDS SUMMARY | 2024-04-17 01:21 | XMS_ITS | Encounter Summary ---
Author Organization [facility] Address [facility] [place] [address] Care Team Providers Care Floor Coverings Salesperson Name Role Phone Julia Chatterjee MD Primary Care Provider [phone] Encounter Details Date Type Department Care Team (Late st Contact Info) Description 01/20/2024 Telephone [place] [address] Martina Pugh MD [facility] [place] [address] Social History Tobacco Use Types Packs/Day Years [...] Telephone Encounter - Martina Pugh MD - 01/20/2024 1:32 PM EST Called patient to finalize her surgical plan after bilateral breast biopsies. In brief, Leti had a 4cm area of segmental calcifications on mammogram. These were biopsied showing DCIS, high grade, ER+. Subsequent MRI showed and area of 6 x 4 x 2cm NME correlating to the area of calcifications. Patient was interested in breast conservation so MR guided biopsy of the anterior extent of NME was pursued to determine extent of disease. This was performed on 01/15 with pathology confirming high grade DCIS. Patient also had a left breast mass seen by MRI which was subsequently evaluated by ultrasound and underwent MR guided biopsy on 01/15 with pathology showing benign findings. We again reviewed her surgical options of lumpectomy vs mastectomy with or without reconstruction. Given the 6 x 4cm area in the right upper outer breast to be excised we reviewed the possible cosmetic outcome with partial mastectomy. I'd plan to bracket the area to be excised and use a radial incision in the upper outer breast. We reviewed the fact that negative margins are needed and there is arisk of margin re-excision with this approach. Alternatively we could proceed with mastectomy with or without reconstruction. After this discussion, patient wanted to proceed with lumpectomy. We reviewed axillary staging and the fact that with pure DCIS in patients undergoing lumpectomy it can often be omitted. Since the area of high grade DCIS is 6cm and there is comedonecrosis, she is at high risk of upgrading to invasive cancer on surgical path. Given the location of her tumor and the need to resect a good portion of the upper outer quadrant, I have recommended proceeding with sentinel lymph node biopsy at the index operation as the lymphatic pathway will be disrupted at the index operation. All of the above was discussed with the patient who agreed with the plan. Patient requires G-CSF prior to any procedures so will plan to do a wire bracket localization the day of surgery to limit the number of procedure days her for. Once we have a surgery date, will reachout to Heme Onc regarding periop planning in this regard. - Right partial mastectomy (wire bracketed) and right SLNB (intra-op magtrace) - G-CSF planning preop with heme onc - Follow up 2 weeks postop Martina Pugh MD 01/20/2024 documented in this encounter Plan of Treatment Upcoming Encounters Date Type Department Care Team (Late st Contact Info) Description 04/17/2024 2:30 PM EST Scheduled View Only Radiation Oncology at [address] [address] 04/20/2024 12:45 PM EST Scheduled View Only Radiation Oncology at [address] [address] 04/21/2024 10:45 AM EST Scheduled View Only Radiation Oncology at [address] [address] 04/21/2024 11:00 AM EST Office Visit Radiation Oncology at [address] [address] Radha Casiano MD [facility] [place] [address] 04/22/2024 3:00 PM EST Scheduled View Only Radiation Oncology at [address] [address] 04/23/2024 3:00 PM EST Scheduled View Only Radiation Oncology at [address] [address] 04/24/2024 3:00 PM EST Scheduled View Only Radiation Oncology at [address] [address] 04/27/2024 11:15 AM EST Scheduled View Only Radiation Oncology at [address] [address] 04/28/2024 11:30 AM EST Scheduled View Only Radiation Oncology at [address] [address] 04/28/2024 12:00 PM EST Office Visit Radiation Oncology at [address] [address] Radha Casiano MD [facility] [place] [address] 04/28/2024 2:00 PM EST Office Visit Cardiology at [address] [place] [place] [address] Letty Montejo APRN [facility] [place] [address] 04/29/2024 11:15 AM EST Scheduled View Only Radiation Oncology at [address] [address] 04/30/2024 11:30 AM EST Scheduled View Only Radiation Oncology at [address] [address] 05/01/2024 11:15 AM EST Scheduled View Only Radiation Oncology at [address] [address] 05/04/2024 10:45 AM EST Scheduled View Only Radiation Oncology at [address] [address] 05/05/2024 1:00 PM EST Scheduled View Only Radiation Oncology at [address] [address] 05/05/2024 1:15 PM EST Office Visit Radiation Oncology at [address] [address] Radha Casiano MD [facility] [place] [address] 05/06/2024 1:00 PM EST Scheduled View Only Radiation Oncology at [address] [address] 05/07/2024 1:00 PM EST Scheduled View Only Radiation Oncology at [address] [address] 05/08/2024 1:00 PM EST Scheduled View Only Radiation Oncology at [address] [address] 05/11/2024 11:30 AM EST Scheduled View Only Radiation Oncology at [address] [address] 01/13/2025 1:00 PM EST Office Visit Hematology/Oncology at [address] [address] Lee Ann Jay MD [facility] DR [place] [address] Leti Anderson APRN [facility] DR [place] [address] documented as of this encounter Visit Diagnoses Not on filedocumented in this encounter Care Teams Floor Coverings Salesperson Relationship Specialty Start Date End Date Julia Chatterjee MD [facility] KINA [address] [place] [address] PCP - General 01/31/10 documented as of this encounter
--- OUTSIDE RECORDS SUMMARY | 2024-04-17 01:21 | XMS_ITS | Encounter Summary ---
Author Organization Formerly [facility] [place] [address] Care Team Providers Care Java Programmer Analyst Name Role Phone Julia Chatterjee MD Primary Care Provider [phone] Reason for Visit * Reason Onset Date Comments Questions 12/06/2023 Encounter Details Date Type Department Care Team ([facility] Contact Info) Description 12/06/2023 Telephone Hematology/Oncology at [address] [address] Mera Cintron RN Questions Social History Tobacco Use Types [...] Telephone Encounter - Mera Cintron RN - 12/06/2023 1:13 PM EDT Pt called asking if she needed any further neupogen following her biopsy per Som Anderson HAIRSPRING SETTER she doesnot. Pt agrees with plan. documented in this encounter Plan of Treatment Upcoming Encounters Date Type Department Care Team (Late Contact Info) Description 04/17/2024 2:30 PM EST Scheduled View Only Radiation Oncology at [address] [address] 04/20/2024 12:45 PM EST Scheduled View Only Radiation Oncology at [address] [address] 04/21/2024 10:45 AM EST Scheduled View Only Radiation Oncology at [address] [address] 04/21/2024 11:00 AM EST Office Visit Radiation Oncology at [address] [address] Radha Casiano MD [facility] [place] [address] 04/22/2024 3:00 PM EST Scheduled View Only Radiation Oncology at [address] [address] 04/23/2024 3:00 PM EST Scheduled View Only Radiation Oncology at [address] [address] 04/24/2024 3:00 PM EST Scheduled View Only Radiation Oncology at [address] [address] 04/27/2024 11:15 AM EST Scheduled View Only Radiation Oncology at [address] [address] 04/28/2024 11:30 AM EST Scheduled View Only Radiation Oncology at [address] [address] 04/28/2024 12:00 PM EST Office Visit Radiation Oncology at [address] [address] Radha Casiano MD [facility] [place] [address] 04/28/2024 2:00 PM EST Office Visit Cardiology at [address] [address] Letty Montejo, RN OR LVN [facility] [place] [address] 04/29/2024 11:15 AM EST Scheduled View Only Radiation Oncology at [address] [address] 04/30/2024 11:30 AM EST Scheduled View Only Radiation Oncology at [address] [address] 05/01/2024 11:15 AM EST Scheduled View Only Radiation Oncology at [address] [address] 05/04/2024 10:45 AM EST Scheduled View Only Radiation Oncology at [address] [address] 05/05/2024 1:00 PM EST Scheduled View Only Radiation Oncology at [address] [address] 05/05/2024 1:15 PM EST Office Visit Radiation Oncology at [address] [address] Radha Casiano MD [facility] [place] [address] 05/06/2024 1:00 PM EST Scheduled View Only Radiation Oncology at [address] [address] 05/07/2024 1:00 PM EST Scheduled View Only Radiation Oncology at [address] [address] 05/08/2024 1:00 PM EST Scheduled View Only Radiation Oncology at [address] [address] 05/11/2024 11:30 AM EST Scheduled View Only Radiation Oncology at [address] [address] 01/13/2025 1:00 PM EST Office Visit Hematology/Oncology at [address] [address] Lee Ann Jay MD [facility] DR [place] [address] Leti Anderson APRN [facility] [place] [address] documented as of this encounter Visit Diagnoses Not on filedocumented in this encounter Care Teams Java Programmer Analyst Relationship Specialty Start Date End Date Julia Chatterjee MD [facility] KINA FELIZ [facility] [address] [place] [address] PCP - General 01/31/10 documented as of this encounter
--- OUTSIDE RECORDS SUMMARY | 2024-04-17 01:21 | XMS_ITS | Encounter Summary ---
Author Organization [facility] [place] [address] Care Team Providers Care Manager Channel Name Role Phone Julia Chatterjee MD Primary Care Provider [phone] Encounter Details Date Type Department Care Team (Latest Contact Info) Description 01/15/2024 Travel Social History Tobacco Use Types Packs/Day [...] Scheduled View Only Radiation Oncology at [address] [phone] 04/20/2024 12:45 PM EST Scheduled View Only Radiation Oncology at [address] [address] 04/21/2024 10:45 AM EST Scheduled View Only Radiation Oncology at [address] [address] 04/21/2024 11:00 AM EST Office Visit Radiation Oncology at [address] [address] Radha Casiano MD [facility] [place] [address] 04/22/2024 3:00 PM EST Scheduled View Only Radiation Oncology at [address] [phone] 04/23/2024 3:00 PM EST Scheduled View Only Radiation Oncology at [address] [address] 04/24/2024 3:00 PM EST Scheduled View Only Radiation Oncology at [address] [address] 04/27/2024 11:15 AM EST Scheduled View Only Radiation Oncology at [address] [address] 04/28/2024 11:30 AM EST Scheduled View Only Radiation Oncology at [address] [address] 04/28/2024 12:00 PM EST Office Visit Radiation Oncology at [address] [address] Radha Casiano MD [facility] [place] [address] 04/28/2024 2:00 PM EST Office Visit Cardiology at [address] [place] [address] Letty Montejo, POLICE LIAISON OFFICER [facility] [place] [address] 04/29/2024 11:15 AM EST Scheduled View Only Radiation Oncology at [address] [address] 04/30/2024 11:30 AM EST Scheduled View Only Radiation Oncology at [address] [address] 05/01/2024 11:15 AM EST Scheduled View Only Radiation Oncology at [address] [address] 05/04/2024 10:45 AM EST Scheduled View Only Radiation Oncology at [address] [address] 05/05/2024 1:00 PM EST Scheduled View Only Radiation Oncology at [address] [address] 05/05/2024 1:15 PM EST Office Visit Radiation Oncology at [address] [address] Radha Casiano MD [facility] RADIATION ONCOLOGY [place] [id number] 05/06/2024 1:00 PM EST Scheduled View Only Radiation Oncology at [address] [address] 05/07/2024 1:00 PM EST Scheduled View Only Radiation Oncology at [address] [address] 05/08/2024 1:00 PM EST Scheduled View Only Radiation Oncology at [address] [address] 05/11/2024 11:30 AM EST Scheduled View Only Radiation Oncology at [address] [address] 01/13/2025 1:00 PM EST Office Visit Hematology/Oncology at [address] [address] Lee Ann Jay MD [facility] HEMATOLOGY [place] [address] Leti Anderson APRN [facility] HEMATOLOGY [place] [address] documented as of this encounter Visit Diagnoses Not on filedocumented in this encounter Care Teams Manager Channel Relationship Specialty Start Date End Date Julia Chatterjee MD [facility] [address] [place] [address] PCP - General 01/31/10 documented as of this encounter
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
--- OUTSIDE RECORDS SUMMARY | 2024-04-17 01:22 | XMS_ITS | Encounter Summary ---
Author Organization [facility] Address [facility] [place] [address] Care Team Providers Care Industrial Roofer Helper Name Role Phone Julia Chatterjee MD Primary Care Provider [phone] Encounter Details Date Type Department Care Team [...] EST Scheduled View Only Radiation Oncology at [address] [address] 04/20/2024 12:45 PM EST Scheduled View Only Radiation Oncology at [address] [address] 04/21/2024 10:45 AM EST Scheduled View Only Radiation Oncology at [address] [address] 04/21/2024 11:00 AM EST Office Visit Radiation Oncology at [address] [address] Radha Casiano MD [facility] [address] 04/22/2024 3:00 PM EST Scheduled View Only Radiation Oncology at [address] [address] 04/23/2024 3:00 PM EST Scheduled View Only Radiation Oncology at [address] [address] 04/24/2024 3:00 PM EST Scheduled View Only Radiation Oncology at [address] [address] 04/27/2024 11:15 AM EST Scheduled View Only Radiation Oncology at [address] [address] 04/28/2024 11:30 AM EST Scheduled View Only Radiation Oncology at [address] [phone] 04/28/2024 12:00 PM EST Office Visit Radiation Oncology at [address] [address] Radha Casiano MD [facility] [place] [address] 04/28/2024 2:00 PM EST Office Visit Cardiology at [address] [address] Letty Montejo APRN [facility] [place] [address] 04/29/2024 11:15 AM EST Scheduled View Only Radiation Oncology at [address] [address] 04/30/2024 11:30 AM EST Scheduled View Only Radiation Oncology at [address] [address] 05/01/2024 11:15 AM EST Scheduled View Only Radiation Oncology at [address] [address] 05/04/2024 10:45 AM EST Scheduled View Only Radiation Oncology at [address] [address] 05/05/2024 1:00 PM EST Scheduled View Only Radiation Oncology at [address] [address] 05/05/2024 1:15 PM EST Office Visit Radiation Oncology at [address] [address] Radha Casiano MD [facility] [place] [address] 05/06/2024 1:00 PM EST Scheduled View Only Radiation Oncology at [address] [address] 05/07/2024 1:00 PM EST Scheduled View Only Radiation Oncology at [address] [address] 05/08/2024 1:00 PM EST Scheduled View Only Radiation Oncology at [address] [phone] 05/11/2024 11:30 AM EST Scheduled View Only Radiation Oncology at [address] [address] 01/13/2025 1:00 PM EST Office Visit Hematology/Oncology at [address] [address] Lee Ann Jay MD [facility] [place] [address] Leti Anderson APRN [facility] HEMATOLOGY [place] [address] documented as of this encounter Visit Diagnoses Not on filedocumented in this encounter Care Teams Industrial Roofer Helper Relationship Specialty Start Date End Date Julia Chatterjee MD [address] [place] [address] PCP - General 01/31/10 documented as of this encounter
--- OUTSIDE RECORDS SUMMARY | 2024-04-17 01:22 | XMS_ITS | Encounter Summary ---
[place] [address] Care Team Providers Care Shoe Clerk Name Role Phone Julia Chatterjee MD Primary Care Provider [phone] Encounter Details Date Type Department Care Team (Late st Contact Info) Description 02/14/2022 Telephone [place] [phone] Joann Barajas Social History Tobacco Use Types [...] Scheduled View Only Radiation Oncology at [address] [address] 04/20/2024 12:45 PM EST Scheduled View Only Radiation Oncology at [address] [address] 04/21/2024 10:45 AM EST Scheduled View Only Radiation Oncology at [address] [address] 04/21/2024 11:00 AM EST Office Visit Radiation Oncology at [address] [address] Radha Casiano MD [facility] [place] [address] 04/22/2024 3:00 PM EST Scheduled View Only Radiation Oncology at [address] [address] 04/23/2024 3:00 PM EST Scheduled View Only Radiation Oncology at [address] [address] 04/24/2024 3:00 PM EST Scheduled View Only Radiation Oncology at [address] [address] 04/27/2024 11:15 AM EST Scheduled View Only Radiation Oncology at [address] [address] 04/28/2024 11:30 AM EST Scheduled View Only Radiation Oncology at [address] [address] 04/28/2024 12:00 PM EST Office Visit Radiation Oncology at [address] [address] Radha Casiano MD [facility] [place] [address] 04/28/2024 2:00 PM EST Office Visit Cardiology at [address] [place] [phone] Letty Montejo, JAYLEN [facility] [place] [address] 04/29/2024 11:15 AM EST Scheduled View Only Radiation Oncology at [address] [address] 04/30/2024 11:30 AM EST Scheduled View Only Radiation Oncology at [address] [address] 05/01/2024 11:15 AM EST Scheduled View Only Radiation Oncology at [address] [address] 05/04/2024 10:45 AM EST Scheduled View Only Radiation Oncology at [address] [address] 05/05/2024 1:00 PM EST Scheduled View Only Radiation Oncology at [address] [address] 05/05/2024 1:15 PM EST Office Visit Radiation Oncology at [address] [address] Radha Casiano MD [facility] [place] [address] 05/06/2024 1:00 PM EST Scheduled View Only Radiation Oncology at [address] [address] 05/07/2024 1:00 PM EST Scheduled View Only Radiation Oncology at [address] [address] 05/08/2024 1:00 PM EST Scheduled View Only Radiation Oncology at [address] [address] 05/11/2024 11:30 AM EST Scheduled View Only Radiation Oncology at [address] [address] 01/13/2025 1:00 PM EST Office Visit Hematology/Oncology at [address] [address] Lee Ann Jay MD [facility] HEMATOLOGY [place] [address] Leti Anderson APRN [facility] HEMATOLOGY [place] [address] documented as of this encounter Visit Diagnoses Not on filedocumented in this encounter Care Teams Shoe Clerk Relationship Specialty Start Date End Date Julia Chatterjee MD [facility] KINA DORADO [address] [place] [address] PCP - General 01/31/10 documented as of this encounter
--- OUTSIDE RECORDS SUMMARY | 2024-04-17 01:22 | XMS_ITS | Encounter Summary ---
Author Organization [facility] Address [facility] [place] [address] Care Team Providers Care Holistic Nutritionist Name Role Phone Julia Chatterjee MD Primary Care Provider [phone] Encounter Details Date Type Department Care Team (Latest Contact Info) Description 04/12/2022 7:08 AM EST - 04/12/2022 9:41 AM EST Hospital En[place] [address] Yola Oliveros MD [facility] [place] [address] Discharge Disposition: Home Social History Tobacco Use [...] occurs, please contact your Doctor. Please call [phone] before 8pm Mon-Fri with problems, questions or concerns. If you call after 8pm or on weekends, call the Hospital at [phone] and ask to speak to the Health [facility] Associate information technology teacher and the shredder operator will contact that person for you. [...] any problems. Where can you learn more? [facility] View your After Visit Summary and more online at [email or web address] If you would like to provide feedback about your hospital experience, please call the Office of Patient and Family Relations at . If you have received this After Visit Summary in error, please immediately return it in person to the department, or notify the [facility] Privacy Office by calling toll free at between the hours of 8AM and 5PM to arrange for our retrieval of the documents at no cost to you. Content Version: 12.2 ?? [id number] [employer]. Care instructions adapted under license by [facility]. If you have questions about a medical condition or this instruction, always ask your healthcare professional. [employer] disclaims any warranty or liability for your [...] 400 mg by mouth 2 times daily. levoFLOXacin [...] concerns or questions. Sincerely, Marija Oliveros MD Able Bodied Tankermanhousekeeper supervisor Co-Director, [facility] Section of Gastroenterology [place] [address] CC: Julia Chatterjee MD [facility] Kina Roman [address] [place] [address] documented in this encounter H&P Notes * [...] EST Scheduled View Only Radiation Oncology at [address] [address] 04/20/2024 12:45 PM EST Scheduled View Only Radiation Oncology at [address] [address] 04/21/2024 10:45 AM EST Scheduled View Only Radiation Oncology at [address] [address] 04/21/2024 11:00 AM EST Office Visit Radiation Oncology at [address] [address] Radha Casiano MD [facility] [place] [address] 04/22/2024 3:00 PM EST Scheduled View Only Radiation Oncology at [address] [address] 04/23/2024 3:00 PM EST Scheduled View Only Radiation Oncology at [address] [address] 04/24/2024 3:00 PM EST Scheduled View Only Radiation Oncology at [address] [address] 04/27/2024 11:15 AM EST Scheduled View Only Radiation Oncology at [address] [address] 04/28/2024 11:30 AM EST Scheduled View Only Radiation Oncology at [address] [address] 04/28/2024 12:00 PM EST Office Visit Radiation Oncology at [address] [address] Radha Casiano MD [facility] [place] [address] 04/28/2024 2:00 PM EST Office Visit Cardiology at [address] [place] [phone] Letty Montejo APRN [facility] [place] [address] 04/29/2024 11:15 AM EST Scheduled View Only Radiation Oncology at [address] [address] 04/30/2024 11:30 AM EST Scheduled View Only Radiation Oncology at [address] [address] 05/01/2024 11:15 AM EST Scheduled View Only Radiation Oncology at [address] [address] 05/04/2024 10:45 AM EST Scheduled View Only Radiation Oncology at [address] [address] 05/05/2024 1:00 PM EST Scheduled View Only Radiation Oncology at [address] [address] 05/05/2024 1:15 PM EST Office Visit Radiation Oncology at [address] [address] Radha Casiano MD [facility] [place] [address] 05/06/2024 1:00 PM EST Scheduled View Only Radiation Oncology at [address] [address] 05/07/2024 1:00 PM EST Scheduled View Only Radiation Oncology at [address] [address] 05/08/2024 1:00 PM EST Scheduled View Only Radiation Oncology at [address] [address] 05/11/2024 11:30 AM EST Scheduled View Only Radiation Oncology at [address] [address] 01/13/2025 1:00 PM EST Office Visit Hematology/Oncology at [address] [address] Lee Ann Jay MD [facility] HEMATOLOG[place] [address] Leti Anderson APRN [facility] HEMATOLOGY [place] [address] documented as of this encounter Procedures Procedure Name Priority Date/Time Associated Diagnosis Comments SURGICAL PATHOLOGY REPORT Routine 04/12/2022 8:50 AM EST SPECIMEN TO PATHOLOGY Routine 04/12/2022 8:50 AM EST SPECIMEN TO PATHOLOGY Routine 04/12/2022 8:50 AM EST SPECIMEN TO PATHOLOGY Routine 04/12/2022 8:50 AM EST SPECIMEN TO PATHOLOGY Routine 04/12/2022 8:50 AM EST Colonoscopy, Remv Lesn, Snare ([id number]) 04/12/2022 7:55 AM EST screening Colonoscopy, Biopsy ([id number]) 04/12/2022 7:55 AM EST screening COLONOSCOPY Routine 04/12/2022 7:40 AM EST documented in this encounter Results * Surgical Pathology Report (04/12/2022 8:50 AM EST) Final Diagnosis [id number] ? Location: 4T; EA07; A The signing [...] MD Verified: ??04/20/2022 22:35 ??Pathologist Performed at: ??-[facility] Dept. of Pathology, [place] [id number] Crayon Molding Machine Operator: Dyllan Vazquez MD, FCAP, ??CLIA Certificate: [id number] SPECIMEN(S) SUBMITTED A - Cecal polyp, re-excision [...] labeled D1. ??sns 04/20/2022 10:35 PM EST [facility] GI Biopsy 04/12/2022 8:50 AM EST 04/12/2022 8:50 AM EST GI Biopsy 04/12/2022 8:50 AM EST 04/12/2022 8:50 AM EST GI Biopsy 04/12/2022 8:50 AM EST 04/12/2022 8:50 AM EST GI Biopsy 04/12/2022 8:50 AM EST 04/12/2022 8:50 AM EST L Inder Oliveros MD PATHOLOGY/CYTOLOGY O RDERABLES [facility] [place] [address] [facility] [place] [address] * Specimen to Pathology (04/12/2022 8:50 AM EST) AP Specimen 04/12/2022 8:50 AM EST 04/12/2022 8:50 AM EST Narrative [facility] - 04/12/2022 8:50 AM EST Specimen requisition ordered. ??Separate Pathology report to follow L Inder Oliveros MD PATHOLOGY/CYTOLOGY O OMI Performing Organization Address [facility] [place] [facility] [place] [address] * Specimen to Pathology (04/12/2022 8:50 AM EST) AP Specimen 04/12/2022 8:50 AM EST 04/12/2022 8:50 AM EST Narrative [facility] - 04/12/2022 8:50 AM EST Specimen requisition ordered. ??Separate Pathology report to follow L Inder Oliveros MD PATHOLOGY/CYTOLOGY O OMI Performing Organization Address [facility] [place] [facility] Co de Phone Number [facility] [place] [address] * Specimen to Pathology (04/12/2022 8:50 AM EST) AP Specimen 04/12/2022 8:50 AM EST 04/12/2022 8:50 AM EST Narrative [facility] - 04/12/2022 8:50 AM EST Specimen requisition ordered. ??Separate Pathology report to follow L Inder Oliveros MD PATHOLOGY/CYTOLOGY O OMI Performing Organization Address [facility] [place] [facility] Co de Phone Number [facility] [place] [address] * Specimen to Pathology (04/12/2022 8:50 AM EST) AP Specimen 04/12/2022 8:50 AM EST 04/12/2022 8:50 AM EST Narrative [facility] - 04/12/2022 8:50 AM EST Specimen requisition ordered. ??Separate Pathology report to follow L Inder Oliveros MD PATHOLOGY/CYTOLOGY O RDCARLOSBLES [facility] [place] [address] * COLONOSCOPY (04/12/2022 7:40 AM EST) COLONOSCOPY [facility] Endoscopy ___ Procedure Date: 04/12/2022 7:40 AM ? Patient Name: Leti Parry ? N: [id number] ? Date of : 1950 ? Age: 71 ? Order #: [id number] ? Instrument Name: [id number] ? ___ Procedure: ? Colonoscopy Indications: ? Disease activity assessment of ? left-sided chronic ulcerative ? colitis Patient Profile: ? This is a 71 year old female. This ? patient has left-sided ulcerative ? colitis, is taking no medication ? therapy for this disease and is ? asymptomatic. Providers: ? LKris Oliveros MD, Sherin Lawrence, ? Roman Spence, Manager Wind Referring MD: ?Julia Chatterjee MD Medicines: ? [...] preparation was evaluated ? using the BBPS (Crowley Bowel ? Preparation Scale) with scores of: [...] injection (CANCELED) ONCE PRN, Starting on Lulu 2/2/23 at 0758, Until Lulu 04/12/22 at 1141, [...] RN) documented in this encounter Care Teams Holistic Nutritionist Relationship Specialty Start Date End Date Julia Chatterjee MD [facility] KINA ROMAN [address] [place] [address] PCP - General 01/31/10 documented as of this encounter
--- OUTSIDE RECORDS SUMMARY | 2024-04-17 01:22 | XMS_ITS | Encounter Summary ---
Author Organization [facility] [place] [address] Care Team Providers Care Embedded Firmware Developer Name Role Phone Julia Chatterjee MD Primary Care Provider [phone] Encounter Details Date Type Department Care Team (Latest Contact Info) Description 03/19/2023 8:12 AM EST - 03/19/2023 11:59 PM EST Hospital [place] [phone] Discharge Disposition: Home Social History Tobacco Use [...] 400 mg by mouth 2 times daily. filgrastim-sndz (Zarxio) 480 mcg/0.8 mL SyringeIndications:La dave granular lymphocytic leukemia Inject 0.8 mLs subcutaneously once for 1 dose. 0.8 mL 04/11/2022 04/17/2023 documented as of this encounter Plan of Treatment Upcoming Encounters Date Type Department Care Team (Late st Contact Info) Description 04/17/2024 2:30 PM EST Scheduled View Only Radiation Oncology at [address] [address] 04/20/2024 12:45 PM EST Scheduled View Only Radiation Oncology at [address] [address] 04/21/2024 10:45 AM EST Scheduled View Only Radiation Oncology at [address] [address] 04/21/2024 11:00 AM EST Office Visit Radiation Oncology at [address] [address] Radha Casiano MD [facility] [place] [address] 04/22/2024 3:00 PM EST Scheduled View Only Radiation Oncology at [address] [address] 04/23/2024 3:00 PM EST Scheduled View Only Radiation Oncology at [address] [address] 04/24/2024 3:00 PM EST Scheduled View Only Radiation Oncology at [address] [address] 04/27/2024 11:15 AM EST Scheduled View Only Radiation Oncology at [address] [address] 04/28/2024 11:30 AM EST Scheduled View Only Radiation Oncology at [address] [address] 04/28/2024 12:00 PM EST Office Visit Radiation Oncology at [address] [address] Radha Casiano MD [facility] [place] [address] 04/28/2024 2:00 PM EST Office Visit Cardiology at [address] [place] [address] Letty Montejo APRN [facility] [place] [place] [address] 04/29/2024 11:15 AM EST Scheduled View Only Radiation Oncology at [address] [address] 04/30/2024 11:30 AM EST Scheduled View Only Radiation Oncology at [address] [address] 05/01/2024 11:15 AM EST Scheduled View Only Radiation Oncology at [address] [address] 05/04/2024 10:45 AM EST Scheduled View Only Radiation Oncology at [address] [address] 05/05/2024 1:00 PM EST Scheduled View Only Radiation Oncology at [address] [address] 05/05/2024 1:15 PM EST Office Visit Radiation Oncology at [address] [address] Radha Casiano MD [facility] [place] [address] 05/06/2024 1:00 PM EST Scheduled View Only Radiation Oncology at [address] [address] 05/07/2024 1:00 PM EST Scheduled View Only Radiation Oncology at [address] [address] 05/08/2024 1:00 PM EST Scheduled View Only Radiation Oncology at [address] [address] 05/11/2024 11:30 AM EST Scheduled View Only Radiation Oncology at [address] [address] 01/13/2025 1:00 PM EST Office Visit Hematology/Oncology at [address] [phone] Lee Ann Jay MD [facility] DR [place] [address] Leti Anderson, SCAFFOLDING HELPER [facility] DR [place] [address] documented as of this encounter Procedures Procedure Name Priority Date/Time Associated Diagnosis Comments SURGICAL PATHOLOGY REPORT Routine 03/19/2023 12:43 PM EST documented in this encounter Results * (ABNORMAL) Surgical Pathology Report (03/19/2023 12:43 PM EST) Final Diagnosis [id number] ? Location: OPW The signing pathologist has (i) examined the relevant preparation(s) for the specimen(s) and (ii) rendered or confirmed the diagnosis(es). . ?Surgical Pathology DIAGNOSIS Right baptist, skin shave biopsy: - ??Invasive squamous cell carcinoma, well differentiated, transected Electronically signed by: ?Berna PONCE, PhD, Nolan Keenan Verified: ??03/28/2023 11:42 ??Dermatopathol ogist, Bone & Soft Tissue Pathologist Performed at: ??-[facility] [place]. of [place]ology, [place] [address] Banquet Server: Dyllan Vazquez MD, FCAP, ??CLIA Certificate: [id number] DISCUSSION THIS RESULT REQUIRES PHYSICIAN/A.P.P . FOLLOW UP SPECIMEN(S) SUBMITTED A - RIGHT MANDAEN, SHAVE (1) Referring Identifier: ?(not provided) CLINICAL INFORMATION 4 mm keratotic nodule; SCC SPECIMEN PROCESSING A - Labeled/Fixativ e: Right baptist, formalin. Quantity/Size: ??Single, 0.7 x 0.6 x 0.2 cm. Tissue Description: Shave of a ford-pink skin papule. Sections/Proces sing: Inked, trisected and entirely submitted in 1 cassette labeled A1. ??sns(A) 03/28/2023 11:42 AM EST [facility] SPECIMEN FROM SKIN / Unknown 03/19/2023 12:43 PM EST 03/19/2023 12:43 PM EST Stefania Gill MD PATHOLOGY/CYTOLOGY O RDERABLES [facility] [address] [place] [address] documented in this encounter Visit Diagnoses Not on filedocumented in this encounter Care Teams Embedded Firmware Developer Relationship Specialty Start Date End Date Julia Chatterjee MD [address] [place] [address] PCP - General 01/31/10 documented as of this encounter
--- OUTSIDE RECORDS SUMMARY | 2024-04-17 01:22 | XMS_ITS | Encounter Summary ---
[place] [address] Care Team Providers Care Tool Shaper Set Up Operator Name Role Phone Julia Chatterjee MD Primary Care Provider [phone] Encounter Details Date Type Department Care Team (Late st Contact Info) Description 06/04/2022 Telephone [place] [phone] Jasmin [place] Social History Tobacco Use Types [...] Scheduled View Only Radiation Oncology at [address] [address] 04/20/2024 12:45 PM EST Scheduled View Only Radiation Oncology at [address] [address] 04/21/2024 10:45 AM EST Scheduled View Only Radiation Oncology at [address] [address] 04/21/2024 11:00 AM EST Office Visit Radiation Oncology at [address] [address] Radha Casiano MD [facility] [place] [address] 04/22/2024 3:00 PM EST Scheduled View Only Radiation Oncology at [address] [address] 04/23/2024 3:00 PM EST Scheduled View Only Radiation Oncology at [address] [address] 04/24/2024 3:00 PM EST Scheduled View Only Radiation Oncology at [address] [address] 04/27/2024 11:15 AM EST Scheduled View Only Radiation Oncology at [address] [address] 04/28/2024 11:30 AM EST Scheduled View Only Radiation Oncology at [address] [address] 04/28/2024 12:00 PM EST Office Visit Radiation Oncology at [address] [address] Radha Casiano MD [facility] [place] [address] 04/28/2024 2:00 PM EST Office Visit Cardiology at [address] [address] Letty Montejo, CLOTHING EXAMINER [facility] [place] [address] 04/29/2024 11:15 AM EST Scheduled View Only Radiation Oncology at [address] [address] 04/30/2024 11:30 AM EST Scheduled View Only Radiation Oncology at [address] [address] 05/01/2024 11:15 AM EST Scheduled View Only Radiation Oncology at [address] [address] 05/04/2024 10:45 AM EST Scheduled View Only Radiation Oncology at [address] [address] 05/05/2024 1:00 PM EST Scheduled View Only Radiation Oncology at [address] [address] 05/05/2024 1:15 PM EST Office Visit Radiation Oncology at [address] [address] Radha Casiano MD [facility] DR [place] [address] 05/06/2024 1:00 PM EST Scheduled View Only Radiation Oncology at [address] [address] 05/07/2024 1:00 PM EST Scheduled View Only Radiation Oncology at [address] [address] 05/08/2024 1:00 PM EST Scheduled View Only Radiation Oncology at [address] [address] 05/11/2024 11:30 AM EST Scheduled View Only Radiation Oncology at [address] [address] 01/13/2025 1:00 PM EST Office Visit Hematology/Oncology at [address] [address] Lee Ann Jay MD [facility] DR HEMAT[place] [address] Leti Anderson APRN [facility] HEMAT[place] [address] documented as of this encounter Visit Diagnoses Not on filedocumented in this encounter Care Teams Tool Shaper Set Up Operator Relationship Specialty Start Date End Date Julia Chatterjee MD [facility] KINA FELIZ [facility] [address] [place] [address] PCP - General 01/31/10 documented as of this encounter
--- OUTSIDE RECORDS SUMMARY | 2024-04-17 01:22 | XMS_ITS | Encounter Summary ---
Author Organization Formerly [facility] [place] [address] Care Team Providers Care Medical Insurance Claims Specialist Name Role Phone Julia Chatterjee MD Primary Care Provider [phone] Reason for Visit * Reason Onset Date Comments Abnormal Lab 12/03/2023 Critical wbc and ANC Encounter Details Date Type Department Care Team (Late Contact Info) Description 12/03/2023 Telephone Hematology/Oncology at [address] [address] Mera Cintron RN Abnormal Lab (Critical wbc and ANC) Social History Tobacco Use Types Packs/Day [...] Telephone Encounter - Mera Cintron RN - 12/03/2023 8:16 AM EDT Pt had critical WBC 1.75, ANC 0.18, other labs h/h 13.1/41.2 plt 189. Reviewed with Som Anderson NP pt can get neupogen today as she is having biopsy tomorrow. documented in this encounter Plan of Treatment Upcoming Encounters Date Type Department Care Team (Late Contact Info) Description 04/17/2024 2:30 PM EST Scheduled View Only Radiation Oncology at [address] [address] 04/20/2024 12:45 PM EST Scheduled View Only Radiation Oncology at [address] [address] 04/21/2024 10:45 AM EST Scheduled View Only Radiation Oncology at [address] [address] 04/21/2024 11:00 AM EST Office Visit Radiation Oncology at [address] [address] Radha Casiano MD [facility] [place] [address] 04/22/2024 3:00 PM EST Scheduled View Only Radiation Oncology at [address] [address] 04/23/2024 3:00 PM EST Scheduled View Only Radiation Oncology at [address] [address] 04/24/2024 3:00 PM EST Scheduled View Only Radiation Oncology at [address] [address] 04/27/2024 11:15 AM EST Scheduled View Only Radiation Oncology at [address] [address] 04/28/2024 11:30 AM EST Scheduled View Only Radiation Oncology at [address] [address] 04/28/2024 12:00 PM EST Office Visit Radiation Oncology at [address] [address] Radha Casiano MD [facility] [place] [address] 04/28/2024 2:00 PM EST Office Visit Cardiology at [address] [place] [address] Letty Montejo APRN [facility] [place] [address] 04/29/2024 11:15 AM EST Scheduled View Only Radiation Oncology at [address] [address] 04/30/2024 11:30 AM EST Scheduled View Only Radiation Oncology at [address] [address] 05/01/2024 11:15 AM EST Scheduled View Only Radiation Oncology at [address] [address] 05/04/2024 10:45 AM EST Scheduled View Only Radiation Oncology at [address] [address] 05/05/2024 1:00 PM EST Scheduled View Only Radiation Oncology at [address] [address] 05/05/2024 1:15 PM EST Office Visit Radiation Oncology at [address] [address] Radha Casiano MD [facility] [place] [address] 05/06/2024 1:00 PM EST Scheduled View Only Radiation Oncology at [address] [address] 05/07/2024 1:00 PM EST Scheduled View Only Radiation Oncology at [address] [address] 05/08/2024 1:00 PM EST Scheduled View Only Radiation Oncology at [address] [address] 05/11/2024 11:30 AM EST Scheduled View Only Radiation Oncology at [address] [address] 01/13/2025 1:00 PM EST Office Visit Hematology/Oncology at [address] [address] Lee Ann Jay MD [facility] [place] [address] Leti Anderson APRN [facility] [place] [address] documented as of this encounter Procedures Procedure Name Priority Date/Time Associated Diagnosis Comments EXTERNAL HEMATOLOGY LAB RESULTS Routine 12/03/2023 documented in this encounter Results * External Hematology Lab Results (12/03/2023) WBC - External 1.75 Hemoglobin - External 13.1 Hematocrit - External 41.2 Platelets - External 189 Neutr ABS (ANC) - External 0.18 12/03/2023 Historical Provider EXTERNAL LAB MANUELA DUMONT documented in this encounter Visit Diagnoses Not on filedocumented in this encounter Care Teams Medical Insurance Claims Specialist Relationship Specialty Start Date End Date Julia Chatterjee MD [address] [place] [address] PCP - General 01/31/10 documented as of this encounter
--- OUTSIDE RECORDS SUMMARY | 2024-04-17 01:22 | XMS_ITS | Encounter Summary ---
Author Organization [facility] Address [facility] [place] [address] Care Team Providers Care Continuous Process Tanner Rotary Drum Name Role Phone Julia Chatterjee MD Primary Care Provider [phone] Encounter Details Date Type Department Care Team (Late st Contact Info) Description 04/11/2022 12:00 PM EST TH Visit (TeleHealth) Hematology/Oncology at [address] [address] Lee Ann Rodriguez MD [facility] [address] [place] [address] Large granular lymphocytic leukemia Social History Tobacco [...] help much - Followed with a local brand specialist and used dietary supplements to maintain remission - Did well until August 2019 when she developed abdominal pain, fevers, loose stool. Went to [facility] andd CT showing inflamed colon. Flex [...] qhs after colonoscopy in October 2019 - [place] worse on [place] - fecal calpro 109 [...] flow ) are being pursued at the [facility]. Should ??cytopenias persist , it may be [...] better now with the help of her brand specialist. Her sx are GREAT on the naturopathic meds with minimal GI symptoms Feels well, good energy . No infections. She enjoys her Peloton bike a few months ago. Loves the exercise and classes. Also does pilates and private classes. She is caring for her parents (92 and 88yo) in [facility]. Plans to travel with her camper to [facility] in Apr - . VW [facility]. No infections. Has been followed by a brand specialist. They are following her for inflammation markers- [...] LIVER 09/02/2019 CT Guided Aspiration Liver 09/02/2019 [facility] RAD CAT SCAN ??? IR DRAIN CHECK/CHANGE/REMOVE 09/28/2019 IR Drain Check/Change/Remove 09/28/2019 Cliff Langston MD [facility] INTERVENTIONL RAD ??? PRO BONE MARROW ASPIRATION W/BX THROUGH SAME INCISION/SITE Right 01/08/2017 ([facility]) BONE MARROW ASP PERFORMED W/BX THRU BX INCISION (WRVU 0.16) performed by Lee Ann Rodriguez MD at [facility] OSC ??? PRO COLONOSCOPY, BIOPSY 07/05/2011 COLONOSCOPY FLEXIBLE, WITH BX performed by AYAZ NELSON at [facility] ENDOSCOPY ??? PRO COLONOSCOPY, BIOPSY N/A 10/22/2019 COLONOSCOPY FLEXIBLE, WITH BX (WRVU 3.66) performed by Yola Oliveros MD at [facility] ENDOSCOPY ??? PRO COLONOSCOPY, REMV LESN, SNARE 07/05/2011 COLONOSCOPY, POLYPECTOMY, REMOVAL LESION BY SNARE performed by AYAZ NELSON at [facility] ENDOSCOPY ??? PRO DIAGNOSTIC BONE MARROW BIOPSIES Right 01/08/2017 ([facility]) BONE MARROW,BIOPSY (WRVU 1.37) performed by Lee Ann Rodriguez MD at [facility] OSC ??? PRO SIGMOIDOSCOPY, DIAGNOSTIC N/A 09/02/2019 FLEXIBLE SIGMOIDOSCOPY performed by Ayaz Nelson MD at [facility] ENDOSCOPY Medications; Current Outpatient Medications on [...] low white counts. Social History: Lives in [facility]. . 1 son 38 years old- healthy. 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 Should ??cytopenias persist , it may [...] receptor gene rearrangement detected. Radiology: US at [facility] 11/2016. Liver 14.5 cm. Spleen 8cm. Assessment and Recommendations: 71 y.o. Healthy female who has been referred to us for leukopenia. She has had leukopenia since 2006 with normal hemoglobin and platelet. She has no symptoms- no increased frequency of infections. 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 She has been working with a brand specialist who started her on selenium and zinc and about a dozen other supplements. Counts are a bit higher so we will see. Licensed Funeral Director has been helping her with bowel issues. These are better w/ diet adjustments. Diet changes have helped her UC and GI symptoms. Of note, she is on multiple naturopathic medications through her hat conditioner - mostly to help w/ herGI tract. [...] [address] Han Castillo at [facility], an LGL specialist, he did a [...] This note was written or modified using [employer] voice recognition software. The final note was [...] EST Scheduled View Only Radiation Oncology at [address] [address] 04/20/2024 12:45 PM EST Scheduled View Only Radiation Oncology at [address] [address] 04/21/2024 10:45 AM EST Scheduled View Only Radiation Oncology at [address] [address] 04/21/2024 11:00 AM EST Office Visit Radiation Oncology at [address] [address] Radha Casiano MD [facility] [place] [address] 04/22/2024 3:00 PM EST Scheduled View Only Radiation Oncology at [address] [address] 04/23/2024 3:00 PM EST Scheduled View Only Radiation Oncology at [address] [address] 04/24/2024 3:00 PM EST Scheduled View Only Radiation Oncology at [address] [address] 04/27/2024 11:15 AM EST Scheduled View Only Radiation Oncology at [address] [address] 04/28/2024 11:30 AM EST Scheduled View Only Radiation Oncology at [address] [address] 04/28/2024 12:00 PM EST Office Visit Radiation Oncology at [address] [address] Radha Casiano MD [facility] [place] [address] 04/28/2024 2:00 PM EST Office Visit Cardiology at [address] [place] [address] Letty Montejo, JAYLEN [facility] [place] [address] 04/29/2024 11:15 AM EST Scheduled View Only Radiation Oncology at [address] [address] 04/30/2024 11:30 AM EST Scheduled View Only Radiation Oncology at [address] [address] 05/01/2024 11:15 AM EST Scheduled View Only Radiation Oncology at [address] [address] 05/04/2024 10:45 AM EST Scheduled View Only Radiation Oncology at [address] [address] 05/05/2024 1:00 PM EST Scheduled View Only Radiation Oncology at [address] [address] 05/05/2024 1:15 PM EST Office Visit Radiation Oncology at [address] [address] Radha Casiano MD [facility] [place] [address] 05/06/2024 1:00 PM EST Scheduled View Only Radiation Oncology at [address] [address] 05/07/2024 1:00 PM EST Scheduled View Only Radiation Oncology at [address] [address] 05/08/2024 1:00 PM EST Scheduled View Only Radiation Oncology at [address] [address] 05/11/2024 11:30 AM EST Scheduled View Only Radiation Oncology at [address] [address] 01/13/2025 1:00 PM EST Office Visit Hematology/Oncology at [address] [address] Lee Ann Rodriguez MD [facility] DR [place] [address] Leti Anderson APRN [facility] [address] [place] [address] documented as of this encounter Procedures Procedure [...] remission documented in this encounter Care Teams Continuous Process Tanner Rotary Drum Relationship Specialty Start Date End Date Julia Chatterjee MD [facility] [address] [place] [address] PCP - General 01/31/10 documented as of this encounter
--- OUTSIDE RECORDS SUMMARY | 2024-04-17 01:22 | XMS_ITS | Encounter Summary ---
Author Organization [facility] [place] [address] Care Team Providers Care Tubular Riveter Name Role Phone Julia Chatterjee MD Primary Care Provider [phone] Reason for Visit * Reason Onset Date Comments Abnormal Lab 04/09/2023 Encounter Details Date Type Department Care Team (Late Contact Info) Description 04/09/2023 Telephone Hematology/Oncology at [address] [address] Vicky Madrigal RN Abnormal Lab [...] Madrigal RN - 04/09/2023 9:00 AM EST [facility] lab called to report critical WBC 1.95 and ANC 0.12, pt has hx of leukopenia and has FUV scheduled with us 04/17/23. Providers made aware. documented in this encounter Plan of Treatment Upcoming Encounters Date Type Department Care Team (Late Contact Info) Description 04/17/2024 2:30 PM EST Scheduled View Only Radiation Oncology at [address] [address] 04/20/2024 12:45 PM EST Scheduled View Only Radiation Oncology at [address] [address] 04/21/2024 10:45 AM EST Scheduled View Only Radiation Oncology at [address] [address] 04/21/2024 11:00 AM EST Office Visit Radiation Oncology at [address] [address] Radha Casiano MD [facility] [place] [address] 04/22/2024 3:00 PM EST Scheduled View Only Radiation Oncology at [address] [address] 04/23/2024 3:00 PM EST Scheduled View Only Radiation Oncology at [address] [address] 04/24/2024 3:00 PM EST Scheduled View Only Radiation Oncology at [address] [address] 04/27/2024 11:15 AM EST Scheduled View Only Radiation Oncology at [address] [address] 04/28/2024 11:30 AM EST Scheduled View Only Radiation Oncology at [address] [address] 04/28/2024 12:00 PM EST Office Visit Radiation Oncology at [address] [address] Radha Casiano MD [facility] [place] [place] [address] 04/28/2024 2:00 PM EST Office Visit Cardiology at [address] [place] [phone] Letty Montejo APRN [facility] [place] [address] 04/29/2024 11:15 AM EST Scheduled View Only Radiation Oncology at [address] [address] 04/30/2024 11:30 AM EST Scheduled View Only Radiation Oncology at [address] [address] 05/01/2024 11:15 AM EST Scheduled View Only Radiation Oncology at [address] [address] 05/04/2024 10:45 AM EST Scheduled View Only Radiation Oncology at [address] [address] 05/05/2024 1:00 PM EST Scheduled View Only Radiation Oncology at [address] [address] 05/05/2024 1:15 PM EST Office Visit Radiation Oncology at [address] [address] Radha Casiano MD [facility] [place] [address] 05/06/2024 1:00 PM EST Scheduled View Only Radiation Oncology at [address] [address] 05/07/2024 1:00 PM EST Scheduled View Only Radiation Oncology at [address] [address] 05/08/2024 1:00 PM EST Scheduled View Only Radiation Oncology at [address] [address] 05/11/2024 11:30 AM EST Scheduled View Only Radiation Oncology at [address] [address] 01/13/2025 1:00 PM EST Office Visit Hematology/Oncology at [address] [address] Lee Ann Jay MD [facility] DR HEMATOLOGY [place] [address] Leti Anderson APRN [facility] HEMATOLOGY [place] [address] documented as of this encounter Visit Diagnoses Not on filedocumented in this encounter Care Teams Tubular Riveter Relationship Specialty Start Date End Date Julia Chatterjee MD [facility] [address] [place] [address] PCP - General 01/31/10 documented as of this encounter
--- OUTSIDE RECORDS SUMMARY | 2024-04-17 01:22 | XMS_ITS | Encounter Summary ---
Author Organization [place] [address] Care Team Providers Care Online Facilitator Name Role Phone Julia Chatterjee MD Primary Care Provider [phone] Encounter Details Date Type Department Care Team (Late st Contact Info) Description 11/26/2023 Orders Only [place] [address] Leti Anderson, WASHTUB WORKER HELPER [facility] [place] [address] Social History Tobacco Use Types Packs/Day Years [...] Scheduled View Only Radiation Oncology at [address] [address] 04/20/2024 12:45 PM EST Scheduled View Only Radiation Oncology at [address] [address] 04/21/2024 10:45 AM EST Scheduled View Only Radiation Oncology at [address] [address] 04/21/2024 11:00 AM EST Office Visit Radiation Oncology at [address] [address] Radha Casiano MD [facility] [place] [address] 04/22/2024 3:00 PM EST Scheduled View Only Radiation Oncology at [address] [address] 04/23/2024 3:00 PM EST Scheduled View Only Radiation Oncology at [address] [address] 04/24/2024 3:00 PM EST Scheduled View Only Radiation Oncology at [address] [address] 04/27/2024 11:15 AM EST Scheduled View Only Radiation Oncology at [address] [address] 04/28/2024 11:30 AM EST Scheduled View Only Radiation Oncology at [address] [address] 04/28/2024 12:00 PM EST Office Visit Radiation Oncology at [address] [address] Radha Casiano MD [facility] [place] [address] 04/28/2024 2:00 PM EST Office Visit Cardiology at [address] [place] [address] Letty Montejo, JAYLEN [facility] [place] [address] 04/29/2024 11:15 AM EST Scheduled View Only Radiation Oncology at [address] [address] 04/30/2024 11:30 AM EST Scheduled View Only Radiation Oncology at [address] [address] 05/01/2024 11:15 AM EST Scheduled View Only Radiation Oncology at [address] [address] 05/04/2024 10:45 AM EST Scheduled View Only Radiation Oncology at [address] [address] 05/05/2024 1:00 PM EST Scheduled View Only Radiation Oncology at [address] [address] 05/05/2024 1:15 PM EST Office Visit Radiation Oncology at [address] [address] Radha Casiano MD [facility] [place] [address] 05/06/2024 1:00 PM EST Scheduled View Only Radiation Oncology at [address] [address] 05/07/2024 1:00 PM EST Scheduled View Only Radiation Oncology at [address] [address] 05/08/2024 1:00 PM EST Scheduled View Only Radiation Oncology at [address] [address] 05/11/2024 11:30 AM EST Scheduled View Only Radiation Oncology at [address] [address] 01/13/2025 1:00 PM EST Office Visit Hematology/Oncology at [address] [address] Lee Ann aJy MD [facility] [place] [address] Leti Anderson, WASHTUB WORKER HELPER [facility] [place] [address] documented as of this encounter Visit Diagnoses Not on filedocumented in this encounter Care Teams Online Facilitator Relationship Specialty Start Date End Date Julia Chatterjee MD [address] [facility] 1 [place] [address] PCP - General 01/31/10 documented as of this encounter
--- OUTSIDE RECORDS SUMMARY | 2024-04-17 01:22 | XMS_ITS | Encounter Summary ---
Author Organization [facility] [place] [address] Care Team Providers Care Electrical Appliance Preparer Name Role Phone Julia Chatterjee MD Primary Care Provider [phone] Encounter Details Date Type Department Care Team (Late st Contact Info) Description 10/25/2023 Ancillary Procedure Radiology Library [place] [id number] Julia Chatterjee MD [address] [place] [address] [facility] 1 [place], [place] [id number] Social History Tobacco Use Types Packs/Day Years [...] Scheduled View Only Radiation Oncology at [address] [address] 04/20/2024 12:45 PM EST Scheduled View Only Radiation Oncology at [address] [address] 04/21/2024 10:45 AM EST Scheduled View Only Radiation Oncology at [address] [address] 04/21/2024 11:00 AM EST Office Visit Radiation Oncology at [address] [address] Radha Casiano MD [facility] [place] [address] 04/22/2024 3:00 PM EST Scheduled View Only Radiation Oncology at [address] [address] 04/23/2024 3:00 PM EST Scheduled View Only Radiation Oncology at [address] [address] 04/24/2024 3:00 PM EST Scheduled View Only Radiation Oncology at [address] [address] 04/27/2024 11:15 AM EST Scheduled View Only Radiation Oncology at [address] [address] 04/28/2024 11:30 AM EST Scheduled View Only Radiation Oncology at [address] [address] 04/28/2024 12:00 PM EST Office Visit Radiation Oncology at [address] [address] Radha Casiano MD [facility] [place] [address] 04/28/2024 2:00 PM EST Office Visit Cardiology at [address] [place] [address] Letty Montejo, EYE CLINIC MANAGER [facility] [place] [address] 04/29/2024 11:15 AM EST Scheduled View Only Radiation Oncology at [address] [address] 04/30/2024 11:30 AM EST Scheduled View Only Radiation Oncology at [address] [address] 05/01/2024 11:15 AM EST Scheduled View Only Radiation Oncology at [address] [address] 05/04/2024 10:45 AM EST Scheduled View Only Radiation Oncology at [address] [address] 05/05/2024 1:00 PM EST Scheduled View Only Radiation Oncology at [address] [address] 05/05/2024 1:15 PM EST Office Visit Radiation Oncology at [address] [address] Radha Casiano MD [facility] [place] [address] 05/06/2024 1:00 PM EST Scheduled View Only Radiation Oncology at [address] [address] 05/07/2024 1:00 PM EST Scheduled View Only Radiation Oncology at [address] [address] 05/08/2024 1:00 PM EST Scheduled View Only Radiation Oncology at [address] [address] 05/11/2024 11:30 AM EST Scheduled View Only Radiation Oncology at [address] [address] 01/13/2025 1:00 PM EST Office Visit Hematology/Oncology at [address] [address] Lee Ann Jay MD [facility] HEMATOLOGY [place] [address] Leti Anderson APRN [facility] HEMATOLOGY [place] [address] documented as of this encounter Procedures Procedure Name Priority Date/Time Associated Diagnosis Comments FILM LIBRARY-STORAGE ONLY US BREAST Routine 10/25/2023 12:00 AM EDT documented in this encounter Results * Film Library Storage Only US Breast (10/25/2023 12:00 AM EDT) Narrative [facility] - 10/29/2023 3:03 PM EDT This exam is auto-finalizing. It's purpose is for storage only. Julia Chatterjee MD G FILM LIBRARY ORD ERABLES Performing Organization Address City/State/[facility] Co de Phone Number [place], [place] documented in this encounter Visit Diagnoses Not on filedocumented in this encounter Care Teams Electrical Appliance Preparer Relationship Specialty Start Date End Date Julia Chatterjee MD [facility] [address] [facility] 1 [place] [address] PCP - General 01/31/10 documented as of this encounter
--- OUTSIDE RECORDS SUMMARY | 2024-04-17 01:22 | XMS_ITS | Encounter Summary ---
Author Organization [facility] Address [facility] [place] [address] Care Team Providers Care Microelectronics Technician Name Role Phone Julia Chatterjee MD Primary Care Provider [phone] Encounter Details Date Type Department Care Team (Late st Contact Info) Description 03/12/2023 Orders Only Hematology [place] [address] Lee Ann Jay MD [facility] DR HEMATOLOGY [place] [address] Social History Tobacco Use Types Packs/Day Years [...] Scheduled View Only Radiation Oncology at [address] [address] 04/20/2024 12:45 PM EST Scheduled View Only Radiation Oncology at [address] [address] 04/21/2024 10:45 AM EST Scheduled View Only Radiation Oncology at [address] [address] 04/21/2024 11:00 AM EST Office Visit Radiation Oncology at [address] [address] Radha Casiano MD [facility] RAD[place] [address] 04/22/2024 3:00 PM EST Scheduled View Only Radiation Oncology at [address] [address] 04/23/2024 3:00 PM EST Scheduled View Only Radiation Oncology at [address] [address] 04/24/2024 3:00 PM EST Scheduled View Only Radiation Oncology at [address] [address] 04/27/2024 11:15 AM EST Scheduled View Only Radiation Oncology at [address] [address] 04/28/2024 11:30 AM EST Scheduled View Only Radiation Oncology at [address] [address] 04/28/2024 12:00 PM EST Office Visit Radiation Oncology at [address] [address] Radha Casiano MD [facility] [place] [address] 04/28/2024 2:00 PM EST Office Visit Cardiology at [address] [place] [address] Letty Montejo, JAYLEN [facility] CARDIOLOG[place] [address] 04/29/2024 11:15 AM EST Scheduled View Only Radiation Oncology at [address] [address] 04/30/2024 11:30 AM EST Scheduled View Only Radiation Oncology at [address] [address] 05/01/2024 11:15 AM EST Scheduled View Only Radiation Oncology at [address] [address] 05/04/2024 10:45 AM EST Scheduled View Only Radiation Oncology at [address] [address] 05/05/2024 1:00 PM EST Scheduled View Only Radiation Oncology at [address] [address] 05/05/2024 1:15 PM EST Office Visit Radiation Oncology at [address] [address] Radha Casiano MD [facility] [place] [address] 05/06/2024 1:00 PM EST Scheduled View Only Radiation Oncology at [address] [address] 05/07/2024 1:00 PM EST Scheduled View Only Radiation Oncology at [address] [address] 05/08/2024 1:00 PM EST Scheduled View Only Radiation Oncology at [address] [address] 05/11/2024 11:30 AM EST Scheduled View Only Radiation Oncology at [address] [address] 01/13/2025 1:00 PM EST Office Visit Hematology/Oncology at [address] [address] Lee Ann Jay MD [facility] HEMATOLOGY [place] [address] Leti Anderson, JAYLEN [facility] HEMATOLOGY [place] [address] documented as of this encounter Visit Diagnoses Not on filedocumented in this encounter Care Teams Microelectronics Technician Relationship Specialty Start Date End Date Julia Chatterjee MD Sushant [address] DR [facility] [address] [place] [address] PCP - General 01/31/10 documented as of this encounter
--- OUTSIDE RECORDS SUMMARY | 2024-04-17 01:22 | XMS_ITS | Encounter Summary ---
Author Organization [facility] [place] [address] Care Team Providers Care Optical Fabricator Name Role Phone Julia Chatterjee MD Primary Care Provider [phone] Encounter Details Date Type Department Care Team (Late st Contact Info) Description 02/27/2022 Telephone [place] [phone] Jenise Bridges Social History Tobacco Use Types [...] - 02/27/2022 11:31 AM EST Leti Parry [id number] Diagnosis/Indication: screening Please review patient chart to [...] your procedure. Who will likely be your driver merchandiser for the procedure? *Please Verify the height [...] EST Scheduled View Only Radiation Oncology at [address] [address] 04/20/2024 12:45 PM EST Scheduled View Only Radiation Oncology at [address] [address] 04/21/2024 10:45 AM EST Scheduled View Only Radiation Oncology at [address] [address] 04/21/2024 11:00 AM EST Office Visit Radiation Oncology at [address] [address] Radha Casiano MD [facility] [place] [address] 04/22/2024 3:00 PM EST Scheduled View Only Radiation Oncology at [address] [address] 04/23/2024 3:00 PM EST Scheduled View Only Radiation Oncology at [address] [address] 04/24/2024 3:00 PM EST Scheduled View Only Radiation Oncology at [address] [address] 04/27/2024 11:15 AM EST Scheduled View Only Radiation Oncology at [address] [address] 04/28/2024 11:30 AM EST Scheduled View Only Radiation Oncology at [address] [address] 04/28/2024 12:00 PM EST Office Visit Radiation Oncology at [address] [address] Radha Casiano MD [facility] [place] [address] 04/28/2024 2:00 PM EST Office Visit Cardiology at [address] [place] [address] Letty Montejo APRN [facility] [place] [address] 04/29/2024 11:15 AM EST Scheduled View Only Radiation Oncology at [address] [address] 04/30/2024 11:30 AM EST Scheduled View Only Radiation Oncology at [address] [address] 05/01/2024 11:15 AM EST Scheduled View Only Radiation Oncology at [address] [address] 05/04/2024 10:45 AM EST Scheduled View Only Radiation Oncology at [address] [address] 05/05/2024 1:00 PM EST Scheduled View Only Radiation Oncology at [address] [address] 05/05/2024 1:15 PM EST Office Visit Radiation Oncology at [address] [address] Radha Casiano MD [facility] [place] [address] 05/06/2024 1:00 PM EST Scheduled View Only Radiation Oncology at [address] [address] 05/07/2024 1:00 PM EST Scheduled View Only Radiation Oncology at [address] [address] 05/08/2024 1:00 PM EST Scheduled View Only Radiation Oncology at [address] [address] 05/11/2024 11:30 AM EST Scheduled View Only Radiation Oncology at [address] [address] 01/13/2025 1:00 PM EST Office Visit Hematology/Oncology at [address] [address] Lee Ann Jay MD [facility] [address] [place] [address] Leti Anderson APRN [facility] [place] [address] documented as of this encounter Visit Diagnoses Not on filedocumented in this encounter Care Teams Optical Fabricator Relationship Specialty Start Date End Date Julia Chatterjee MD Sushant DORADO [address] [place] [address] PCP - General 01/31/10 documented as of this encounter
--- OUTSIDE RECORDS SUMMARY | 2024-04-17 01:22 | XMS_ITS | Encounter Summary ---
Author Organization [facility] [place] [address] Care Team Providers Care State Tested Nursing Assistant Name Role Phone Julia Chatterjee MD Primary Care Provider [phone] Reason for Visit * Reason Onset Date Comments Other 12/03/2022 Letting us know about shingles Encounter Details Date Type Department Care Team (Late st Contact Info) Description 12/03/2022 Telephone Hematology/Oncology at [address] [address] Michelle Layne, RN Other (Letting [...] 12/03/2022 1:09 PM EDT Leti Keenan Sohan [id number] Leti called to let us know that [...] EST Scheduled View Only Radiation Oncology at [address] [address] 04/20/2024 12:45 PM EST Scheduled View Only Radiation Oncology at [address] [address] 04/21/2024 10:45 AM EST Scheduled View Only Radiation Oncology at [address] [address] 04/21/2024 11:00 AM EST Office Visit Radiation Oncology at [address] [address] Radha Casiano MD [facility] [place] [address] 04/22/2024 3:00 PM EST Scheduled View Only Radiation Oncology at [address] [address] 04/23/2024 3:00 PM EST Scheduled View Only Radiation Oncology at [address] [address] 04/24/2024 3:00 PM EST Scheduled View Only Radiation Oncology at [address] [address] 04/27/2024 11:15 AM EST Scheduled View Only Radiation Oncology at [address] [address] 04/28/2024 11:30 AM EST Scheduled View Only Radiation Oncology at [address] [address] 04/28/2024 12:00 PM EST Office Visit Radiation Oncology at [address] [address] Radha Casiano MD [facility] [place] [address] 04/28/2024 2:00 PM EST Office Visit Cardiology at [address] [place] [address] Letty Montejo APRN [facility] [place] [address] 04/29/2024 11:15 AM EST Scheduled View Only Radiation Oncology at [address] [address] 04/30/2024 11:30 AM EST Scheduled View Only Radiation Oncology at [address] [address] 05/01/2024 11:15 AM EST Scheduled View Only Radiation Oncology at [address] [address] 05/04/2024 10:45 AM EST Scheduled View Only Radiation Oncology at [address] [address] 05/05/2024 1:00 PM EST Scheduled View Only Radiation Oncology at [address] [address] 05/05/2024 1:15 PM EST Office Visit Radiation Oncology at [address] [address] Radha Casiano MD [facility] [place] [address] 05/06/2024 1:00 PM EST Scheduled View Only Radiation Oncology at [address] [address] 05/07/2024 1:00 PM EST Scheduled View Only Radiation Oncology at [address] [address] 05/08/2024 1:00 PM EST Scheduled View Only Radiation Oncology at [address] [address] 05/11/2024 11:30 AM EST Scheduled View Only Radiation Oncology at [address] [address] 01/13/2025 1:00 PM EST Office Visit Hematology/Oncology at [address] [address] Lee Ann Jay MD [facility] [place] [address] Leti Anderson APRN [facility] [place] [address] documented as of this encounter Visit Diagnoses Not on filedocumented in this encounter Care Teams State Tested Nursing Assistant Relationship Specialty Start Date End Date Julia Chatterjee MD [facility] KINA FELIZ [address] [address] PCP - General 01/31/10 documented as of this encounter
--- OUTSIDE RECORDS SUMMARY | 2024-04-17 01:22 | XMS_ITS | Encounter Summary ---
Author Organization [facility] Address [facility] [place] [address] Care Team Providers Care Radiation Control Technician Name Role Phone Julia Chatterjee MD Primary Care Provider [phone] Reason for Visit * (Routine) - Pending Review Specialty Diagnoses / Procedures Referred By Contac t Referred To Contact Radiology Diagnoses Breast calcification, right Procedures Request for 2nd read Mammo Julia Chatterjee MD [address] [place] [address] Referral ID Status Reason Start Date Expiration Date V isits Requested Visits Authorized [id number] Pending Review 10/29/2023 10/28/2024 1 1 Encounter Details Date Type Department Care Team (Latest Contact Info) Description 10/29/2023 3:50 PM EDT Ancillary Procedure Radiology [facility] [place] [address] Julia Chatterjee MD [address] [place] [address] Breast calcification, right Social History Tobacco Use Types Packs/Day Years [...] Scheduled View Only Radiation Oncology at [address] [address] 04/20/2024 12:45 PM EST Scheduled View Only Radiation Oncology at [address] [address] 04/21/2024 10:45 AM EST Scheduled View Only Radiation Oncology at [address] [address] 04/21/2024 11:00 AM EST Office Visit Radiation Oncology at [address] [address] Radha Casiano MD [facility] [place] [address] 04/22/2024 3:00 PM EST Scheduled View Only Radiation Oncology at [address] [address] 04/23/2024 3:00 PM EST Scheduled View Only Radiation Oncology at [address] [address] 04/24/2024 3:00 PM EST Scheduled View Only Radiation Oncology at [address] [address] 04/27/2024 11:15 AM EST Scheduled View Only Radiation Oncology at [address] [address] 04/28/2024 11:30 AM EST Scheduled View Only Radiation Oncology at [address] [address] 04/28/2024 12:00 PM EST Office Visit Radiation Oncology at [address] [address] Radha Casiano MD [facility] [place] [place] [address] 04/28/2024 2:00 PM EST Office Visit Cardiology at [address] [place] [address] Letty Montejo APRN [facility] [place] [address] 04/29/2024 11:15 AM EST Scheduled View Only Radiation Oncology at [address] [address] 04/30/2024 11:30 AM EST Scheduled View Only Radiation Oncology at [address] [address] 05/01/2024 11:15 AM EST Scheduled View Only Radiation Oncology at [address] [address] 05/04/2024 10:45 AM EST Scheduled View Only Radiation Oncology at [address] [address] 05/05/2024 1:00 PM EST Scheduled View Only Radiation Oncology at [address] [address] 05/05/2024 1:15 PM EST Office Visit Radiation Oncology at [address] [address] Radha Casiano MD [facility] [place] [address] 05/06/2024 1:00 PM EST Scheduled View Only Radiation Oncology at [address] [address] 05/07/2024 1:00 PM EST Scheduled View Only Radiation Oncology at [address] [address] 05/08/2024 1:00 PM EST Scheduled View Only Radiation Oncology at [address] [address] 05/11/2024 11:30 AM EST Scheduled View Only Radiation Oncology at [address] [phone] 01/13/2025 1:00 PM EST Office Visit Hematology/Oncology at [address] [phone] Lee Ann Jay MD [facility] HEMATOLOGY [place] [address] Leti Anderson APRN [facility] HEMATOLOGY [place] [address] documented as of this encounter Procedures Procedure Name Priority Date/Time Associated Diagnosis Comments REQUEST FOR 2ND READ MAMMO Routine 10/29/2023 3:36 PM EDT Breast calcification, right documented in this encounter Results * Request for 2nd read Mammo (10/29/2023 3:36 PM EDT) WORKSTATION ID [id number] 1 DH RAD Anatomical Region Laterality Modality SO Narrative 10/30/2023 11:00 AM EDT INTERPRETATION OF OUTSIDE BREAST IMAGING I have been asked to consult on this patient by Dr. Chatterjee because he/she believes a review of this study may change or alter the care of this patient. STUDIES FROM: [facility] CLINICAL HISTORY: ? MORE IMAGING, ? BX; Sending Institution [facility]; Date of exam 20231025; I believe a reinterpretation of this exam may alter care of Patient. Yes; RIGHT BREAST CALCS, CAT 4. ?? DATES and TYPE OF EXAM: Bilateral screening mammograms July 24, 2023 with additional magnification views of the RIGHT breast and RIGHT breast ultrasound VIEWS: Bilateral CC, bilateral [...] RIGHT BREAST LESION #1 4 cm Microcalcifications ??Upper Outer Quadrant 10 OClock 6 cm from the nipple INTERPRETATION: BI-RADS 4. Suspicious for malignancy MANAGEMENT: Stereotactic RIGHT breast biopsy which will be scheduled Please note: The interpretation of the [facility] Breast Imaging Radiologist subspecialist may differ from the original radiologists interpretation. This is usually not due to a deficiency of the original interpreting radiologist, rather due to the greater skill level afforded by sub-specialization in the field and/or reasonable variations in interpretations. If you have a concern regarding the D-H interpretation you may contact the [facility] Breast Ux Manager Office at . Thank you for letting us participate in the care of this patient. ??If you are a health care provider and have any questions regarding this report, please contact the number below. ??For patients who have questions please contact the health palliative care nurse that requested your imaging first. ? Procedure Note Jodee Ortega MD - 10/30/2023 INTERPRETATION OF OUTSIDE BREAST IMAGING I have been asked to consult on this patient by Dr. Chatterjee because he/she believes a review of this study may change or alter the care of thispatient. STUDIES FROM: [facility] CLINICAL HISTORY: ? MORE IMAGING, ? BX; Sending Institution [facility]; Date of exam 20231025; I believe a reinterpretation ofthis exam may alter care of Patient. Yes; RIGHT BREAST CALCS, CAT 4. DATES and TYPE OF EXAM: Bilateral screening mammograms July 24, 2023 with additional magnification views of the RIGHT breast and RIGHT breastultrasound VIEWS: Bilateral CC, bilateral MLO, RIGHT mag CC, RIGHT mag MLO COMPARISONS: Multiple priors BREAST DENSITY: The breasts are heterogeneously dense, which may obscure small masses FINDINGS: LEFT breast: Normal and unchanged RIGHT breast: There are 4 cm of segmental fine pleomorphicmicrocalcifications the upper outer quadrant of the RIGHT breast with no associated mass or architectural distortion. Ultrasound of this area showed no significant abnormality. DIAGNOSTIC SUMMARY: RIGHT BREAST LESION #1 4 cm Microcalcifications Upper Outer Quadrant 10 OClock 6 cm from thenipple INTERPRETATION: BI-RADS 4. Suspicious for malignancy MANAGEMENT: Stereotactic RIGHT breast biopsy which will be scheduled Please note: The interpretation of the [facility] BreastImaging Radiologist subspecialist may differ from the original radiologists interpretation. This is usually not due to a deficiency of the original interpreting radiologist, rather due to the greater skill level affordedby sub-specialization in the field and/or reasonable variations ininterpretations. If you have a concern regarding the -H interpretation you may [facility] at . Thank you for letting us participate in the care of this patient. If youare a health care provider and have any questions regarding this report,please contact the number below. For patients who have questions please contactthe health palliative care nurse that requested your imaging first. Julia Chatterjee MD IMG OUTSIDE INTERPRE TATION ORDERABLES documented in this encounter Visit Diagnoses Diagnosis Breast calcification, right Other (abnormal) findings on radiological examination of breast documented in this encounter Care Teams Radiation Control Technician Relationship Specialty Start Date End Date Julia Chatterjee MD Sushant [address] [place] [address] PCP - General 01/31/10 documented as of this encounter
--- OUTSIDE RECORDS SUMMARY | 2024-04-17 01:22 | XMS_ITS | Encounter Summary ---
Author Organization [facility] Address [facility] [place] [address] Care Team Providers Care Rn Manager Name Role Phone Julia Chatterjee MD Primary Care Provider [phone] Encounter Details Date Type Department Care Team (Late st Contact Info) Description 04/12/2022 8:00 AM EST - 04/12/2022 9:00 AM EST [place] [address] Yola Oliveros MD [facility] [place] [address] COLONOSCOPY FLEXIBLE, WITH BX (WRVU 3.56) Social [...] encounter Discharge Instructions * Discharge Instructions* Carey Magallanes, RN - 04/12/2022 8:56 AM EST Colonoscopy: [...] occurs, please contact your Doctor. Please call [phone] before 8pm Mon-Fri with problems, questions or concerns. If you call after 8pm or on weekends, call the Hospital at [phone] and ask to speak to the Carburetor Expert instrumentation manager and the catalytic case operator will contact that person for you. When should you call for help? Call 541 anytime you think you may need emergency [...] any problems. Where can you learn more? [facility] View your After Visit Summary and more online at [email or web address] If you would like to provide feedback [...] cost to you. Content Version: 12.2 ?? [id number] [employer]. Care instructions adapted under license by [facility]. If you have questions about a medical condition or this instruction, always ask your healthcare professional. [employer] disclaims any warranty or liability for your [...] concerns or questions. Sincerely, Marija Oliveros MD Package Lift Operatormeteorology instructor Co-Director, [facility] Section of [place]astroenter[place] [address] CC: MD Sushant Garg [address] [place] [address] documented in this encounter H&P Notes * [...] EST Scheduled View Only Radiation Oncology at [address] [address] 04/20/2024 12:45 PM EST Scheduled View Only Radiation Oncology at [address] [address] 04/21/2024 10:45 AM EST Scheduled View Only Radiation Oncology at [address] [address] 04/21/2024 11:00 AM EST Office Visit Radiation Oncology at [address] [address] Radha Casiano MD [facility] [place] [address] 04/22/2024 3:00 PM EST Scheduled View Only Radiation Oncology at [address] [address] 04/23/2024 3:00 PM EST Scheduled View Only Radiation Oncology at [address] [address] 04/24/2024 3:00 PM EST Scheduled View Only Radiation Oncology at [address] [address] 04/27/2024 11:15 AM EST Scheduled View Only Radiation Oncology at [address] [address] 04/28/2024 11:30 AM EST Scheduled View Only Radiation Oncology at [address] [address] 04/28/2024 12:00 PM EST Office Visit Radiation Oncology at [address] [address] Radha Casiano MD [facility] [place] [address] 04/28/2024 2:00 PM EST Office Visit Cardiology at [address] [place] [address] Letty Montejo, AJYLEN [facility] [place] [address] 04/29/2024 11:15 AM EST Scheduled View Only Radiation Oncology at [address] [address] 04/30/2024 11:30 AM EST Scheduled View Only Radiation Oncology at [address] [address] 05/01/2024 11:15 AM EST Scheduled View Only Radiation Oncology at [address] [address] 05/04/2024 10:45 AM EST Scheduled View Only Radiation Oncology at [address] [address] 05/05/2024 1:00 PM EST Scheduled View Only Radiation Oncology at [address] [address] 05/05/2024 1:15 PM EST Office Visit Radiation Oncology at [address] [address] Radha Casiano MD [facility] [place] [address] 05/06/2024 1:00 PM EST Scheduled View Only Radiation Oncology at [address] [address] 05/07/2024 1:00 PM EST Scheduled View Only Radiation Oncology at [address] [address] 05/08/2024 1:00 PM EST Scheduled View Only Radiation Oncology at [address] [address] 05/11/2024 11:30 AM EST Scheduled View Only Radiation Oncology at [address] [address] 01/13/2025 1:00 PM EST Office Visit Hematology/Oncology at [address] [address] Lee Ann Jay MD [facility] [place] [address] Leti Anderson APRN [facility] HEMATOLOGY [place] [address] documented as of this encounter Procedures Procedure Name Priority Date/Time Associated Diagnosis Comments SURGICAL PATHOLOGY REPORT Routine 04/12/2022 8:50 AM EST SPECIMEN TO PATHOLOGY Routine 04/12/2022 8:50 AM EST SPECIMEN TO PATHOLOGY Routine 04/12/2022 8:50 AM EST SPECIMEN TO PATHOLOGY Routine 04/12/2022 8:50 AM EST SPECIMEN TO PATHOLOGY Routine 04/12/2022 8:50 AM EST Colonoscopy, Remv Lesn, Snare ([id number]) 04/12/2022 7:55 AM EST screening Colonoscopy, Biopsy ([id number]) 04/12/2022 7:55 AM EST screening COLONOSCOPY Routine 04/12/2022 7:40 AM EST documented in this encounter Results * Surgical Pathology Report (04/12/2022 8:50 AM EST) Final Diagnosis [id number] ? Location: ; [facility]; A The signing pathologist has (i) examined [...] MD Verified: ??04/20/2022 22:35 ??Pathologist Performed at: ??-[facility] Dept. of [place]ology, [place] [address] Meat Counter Worker: Dyllan Vazquez MD, FCAP, ??CLIA Certificate: [id number] SPECIMEN(S) SUBMITTED A - Cecal polyp, re-excision [...] labeled D1. ??sns 04/20/2022 10:35 PM EST [facility] GI Biopsy 04/12/2022 8:50 AM EST 04/12/2022 8:50 AM EST GI Biopsy 04/12/2022 8:50 AM EST 04/12/2022 8:50 AM EST GI Biopsy 04/12/2022 8:50 AM EST 04/12/2022 8:50 AM EST GI Biopsy 04/12/2022 8:50 AM EST 04/12/2022 8:50 AM EST L Inder Oliveros MD PATHOLOGY/CYTOLOGY O RDERABLES [facility] [place] [id number] [facility] [place] [address] * Specimen to Pathology (04/12/2022 8:50 AM EST) AP Specimen 04/12/2022 8:50 AM EST 04/12/2022 8:[address] [facility] - 04/12/2022 8:50 AM EST Specimen requisition ordered. ??Separate Pathology report to follow L Inder Oliveros MD PATHOLOGY/CYTOLOGY O OMI Performing Organization Address [facility]/ZIP Co de Phone Number [facility] [place] [address] * Specimen to Pathology (04/12/2022 8:50 AM EST) AP Specimen 04/12/2022 8:50 AM EST 04/12/2022 8:[address] [facility] - 04/12/2022 8:50 AM EST Specimen requisition ordered. ??Separate Pathology report to follow L Inder Oliveros MD PATHOLOGY/CYTOLOGY O OMI Performing Organization Address City/[facility] Co de Phone Number [facility] [place] [address] * Specimen to Pathology (04/12/2022 8:50 AM EST) AP Specimen 04/12/2022 8:50 AM EST 04/12/2022 8:[address] [facility] - 04/12/2022 8:50 AM EST Specimen requisition ordered. ??Separate Pathology report to follow L Inder Oliveros MD PATHOLOGY/CYTOLOGY O OMI Performing Organization Address City/[facility]/ZIP Co de Phone Number [facility] [place] [address] * Specimen to Pathology (04/12/2022 8:50 AM EST) AP Specimen 04/12/2022 8:50 AM EST 04/12/2022 8:50 AM EST Narrative [facility] - 04/12/2022 8:50 AM EST Specimen requisition ordered. ??Separate Pathology report to follow L Inder Oliveros MD PATHOLOGY/CYTOLOGY O RDCARLOSBLES [facility] [place] [address] * COLONOSCOPY (04/12/2022 7:40 AM EST) COLONOSCOPY [facility] ___ Procedure Date: 04/12/2022 7:40 AM ? Patient Name: Leti Parry ? N: [id number] ? Date of : 1950 ? Age: 71 ? Order #: [id number] ? Instrument Name: [id number]- [id number] ? ___ Procedure: ? Colonoscopy Indications: ? Disease activity assessment of ? left-sided chronic ulcerative ? colitis Patient Profile: ? This is a 71 year old female. This ? patient has left-sided ulcerative ? colitis, is taking no medication ? therapy for this disease and is ? asymptomatic. Providers: ? LKris Oliveros MD, Sherin Lawrence, ? Roman Spence, Patroller Referring MD: ?Julia Chatterjee MD Medicines: ? [...] preparation was evaluated ? using the BBPS ([place] Bowel ? Preparation Scale) with scores of: [...] RN) documented in this encounter Care Teams Rn Manager Relationship Specialty Start Date End Date Julia Chatterjee MD [address] [place] [address] PCP - General 01/31/10 documented as of this encounter
--- OUTSIDE RECORDS SUMMARY | 2024-04-17 01:22 | XMS_ITS | Encounter Summary ---
Author Organization [facility] Address [facility] [place] [address] Care Team Providers Care Documentation Clerk Name Role Phone Julia Chatterjee MD Primary Care Provider [phone] Encounter Details Date Type Department Care Team (Latest Contact Info) Description 12/03/2023 Travel Social History Tobacco Use Types Packs/Day [...] EST Scheduled View Only Radiation Oncology at [address] [address] 04/20/2024 12:45 PM EST Scheduled View Only Radiation Oncology at [address] [address] 04/21/2024 10:45 AM EST Scheduled View Only Radiation Oncology at [address] [address] 04/21/2024 11:00 AM EST Office Visit Radiation Oncology at [address] [address] Radha Casiano MD [facility] [place] [address] 04/22/2024 3:00 PM EST Scheduled View Only Radiation Oncology at [address] [address] 04/23/2024 3:00 PM EST Scheduled View Only Radiation Oncology at [address] [address] 04/24/2024 3:00 PM EST Scheduled View Only Radiation Oncology at [address] [address] 04/27/2024 11:15 AM EST Scheduled View Only Radiation Oncology at [address] [address] 04/28/2024 11:30 AM EST Scheduled View Only Radiation Oncology at [address] [address] 04/28/2024 12:00 PM EST Office Visit Radiation Oncology at [address] [address] Radha Casiano MD [facility] DR [place] [address] 04/28/2024 2:00 PM EST Office Visit Cardiology at [address] [address] Letty Montejo APRN [facility] [place] [address] 04/29/2024 11:15 AM EST Scheduled View Only Radiation Oncology at [address] [address] 04/30/2024 11:30 AM EST Scheduled View Only Radiation Oncology at [address] [address] 05/01/2024 11:15 AM EST Scheduled View Only Radiation Oncology at [address] [address] 05/04/2024 10:45 AM EST Scheduled View Only Radiation Oncology at [address] [address] 05/05/2024 1:00 PM EST Scheduled View Only Radiation Oncology at [address] [address] 05/05/2024 1:15 PM EST Office Visit Radiation Oncology at [address] [address] Radha Casiano MD [facility] DR [place] [address] 05/06/2024 1:00 PM EST Scheduled View Only Radiation Oncology at [address] [address] 05/07/2024 1:00 PM EST Scheduled View Only Radiation Oncology at [address] [address] 05/08/2024 1:00 PM EST Scheduled View Only Radiation Oncology at [address] [address] 05/11/2024 11:30 AM EST Scheduled View Only Radiation Oncology at [address] [address] 01/13/2025 1:00 PM EST Office Visit Hematology/Oncology at [address] [address] Lee Ann Jay MD [facility] HEMATOLOGY [place] [address] Leti Anderson APRN [facility] HEMATOLOGY AND [place] [address] documented as of this encounter Visit Diagnoses Not on filedocumented in this encounter Care Teams Documentation Clerk Relationship Specialty Start Date End Date Julia Chatterjee MD [address] [place] [address] PCP - General 01/31/10 documented as of this encounter
--- OUTSIDE RECORDS SUMMARY | 2024-04-17 01:22 | XMS_ITS | Encounter Summary ---
Author Organization [facility] Address [facility] [place] [address] Care Team Providers Care Electrician Marine Name Role Phone Julia Chatterjee MD Primary Care Provider [phone] Encounter Details Date Type Department Care Team (Latest Contact Info) Description 12/04/2023 9:52 AM EDT - 12/04/2023 11:59 PM EDT Hospital En[place] [address] Jodee Ortega MD [facility] [place] [address] Abnormal finding on breast imaging Discharge Disposition: [...] Progress Notes * Tamir Fletcher MD - 12/03/2023 12:43 PM EDT Procedure date: scheduled for tomorrow Procedure type: right Breast biopsy Special Instructions: none Allergies: Benzalkonium chloride and Gluten Medications: Current Outpatient Medications: magnesium 250 mg Tablet, Take by mouth., [...] mouth 2 times daily., Disp: , Rfl: No current facility-administered medications for this encounter. Anticoagulation status: none Imaging reviewed and procedural plan approved by Dr. Tamir Fletcher MD documented in this encounter Plan of Treatment Upcoming Encounters Date Type Department Care Team (Late st Contact Info) Description 04/17/2024 2:30 PM EST Scheduled View Only Radiation Oncology at [address] [address] 04/20/2024 12:45 PM EST Scheduled View Only Radiation Oncology at [address] [address] 04/21/2024 10:45 AM EST Scheduled View Only Radiation Oncology at [address] [phone] 04/21/2024 11:00 AM EST Office Visit Radiation Oncology at [address] [address] Radha Casiano MD [facility] [place] [address] 04/22/2024 3:00 PM EST Scheduled View Only Radiation Oncology at [address] [address] 04/23/2024 3:00 PM EST Scheduled View Only Radiation Oncology at [address] [address] 04/24/2024 3:00 PM EST Scheduled View Only Radiation Oncology at [address] [address] 04/27/2024 11:15 AM EST Scheduled View Only Radiation Oncology at [address] [address] 04/28/2024 11:30 AM EST Scheduled View Only Radiation Oncology at [address] [address] 04/28/2024 12:00 PM EST Office Visit Radiation Oncology at [address] [address] Radha Casiano MD [facility] [place] [address] 04/28/2024 2:00 PM EST Office Visit Cardiology at [address] [place] [address] Letty Montejo APRN [facility] [place] [place] [address] 04/29/2024 11:15 AM EST Scheduled View Only Radiation Oncology at [address] [address] 04/30/2024 11:30 AM EST Scheduled View Only Radiation Oncology at [address] [address] 05/01/2024 11:15 AM EST Scheduled View Only Radiation Oncology at [address] [address] 05/04/2024 10:45 AM EST Scheduled View Only Radiation Oncology at [address] [address] 05/05/2024 1:00 PM EST Scheduled View Only Radiation Oncology at [address] [address] 05/05/2024 1:15 PM EST Office Visit Radiation Oncology at [address] [address] Radha Casiano MD [facility] [place] [address] 05/06/2024 1:00 PM EST Scheduled View Only Radiation Oncology at [address] [address] 05/07/2024 1:00 PM EST Scheduled View Only Radiation Oncology at [address] [address] 05/08/2024 1:00 PM EST Scheduled View Only Radiation Oncology at [address] [address] 05/11/2024 11:30 AM EST Scheduled View Only Radiation Oncology at [address] [address] 01/13/2025 1:00 PM EST Office Visit Hematology/Oncology at [address] [address] Lee Ann Jay MD [facility] [place] [address] Leti Anderson APRN [facility] [place] [address] documented as of this encounter Procedures Procedure Name Priority Date/Time Associated Diagnosis Comments SURGICAL PATHOLOGY Routine 12/04/2023 10 :31 AM EDT Abnormal finding on breast imaging MAMMO STEREOTACTIC BIOPSY RIGHT Routine 12/04/2023 10:28 AM EDT Abnormal finding on breast imaging documented in this encounter Results * (ABNORMAL) Surgical Pathology (12/04/2023 10:31 AM EDT) Case Report Surgical Pathology Report ? Case: [id number] ? Authorizing Provider: ??Jodee Ortega MD ? Collected: ? 12/04/2023 1031 ? Ordering Location: ? [place] [facility] ?Received: ?12/04/2023 1257 ? Pathologist: ? Ana Damon DO ? Specimen: ?Breast, Right ? 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 4 10:08 AM EDT [facility] Addendum Immunohistochemistry Studies (A3) Estrogen Receptor (ER) immunoreactivity: Positive Cancer cells with immunostaining: >90% Stain intensity: Strong -- *Diagnostic chaparro for hormone receptors (ASCO/CAP GUIDELINES, [...] The assays were performed according to the tractor operator helper's instructions using the Anti-ER (SP1) antibody. These tests were developed and their performance characteristics determined by [facility]. They may not have been cleared [...] to perform high complexity clinical laboratory testing. 4 10:08 AM [facility] Addendum electronically signed by Ana Damon DO on 12/06/2023 at 10:08 AM Clinical Information A. Breast, Right, Calcifications Rule out malignancy Abnormal finding on breast imaging [R92.8] 4 10:08 AM [facility] Gross Description A. Breast, Right, . A - Received in two containers: 1 - Labeled/Fixative: Breast, right calcs, formalin Quantity/Size: Multiple, up to 3.5 x 0.3 cm. Tissue Description: Sciota-yellow fibrofatty needle core biopsies. Submitted in: A1-A3 2 - Labeled/Fixative: Breast, right no calcs, formalin. Quantity/Size: Multiple, aggregating 2.5 x 2.5 x 0.6 cm. Tissue Description: Sciota-yellow fibrofatty tissues Submitted in: A4-A5 Sections/Processing: Entirely submitted in 5 cassettes labeled A1-A5. Ischemic time: 1 minute aj 10:08 AM EDT [facility] Result Note THIS RESULT REQUIR ES PHYSICIAN/KASH FOLLOW UP(A) 10:08 AM EDT [facility] Tissue RIGHT BREAST STRUCTURE / Unknown 12/04/2023 10:31 AM EDT 12/04/2023 12:57 PM EDT Jodee Ortega MD PATHOLOGY/CYTOLOGY O RDERABLES [facility] [place] [address] * Mammo Stereotactic Biopsy Right (12/04/2023 10:28 AM EDT) WORKSTATION ID [id number] 1 [facility] Anatomical Region Laterality Modality Breast N/A Mammography Addenda Addendum by Jodee Ortega MD on 12/06/2023 1:09 PM EDT --------ADDENDUM #1-------- PATHOLOGIC DIAGNOSIS: - Ductal carcinoma in-situ, high grade IMPRESSION: Concordant results RECOMMENDATION: Refer to the Comprehensive Breast Program as relayed to the patient by Samina Tate RN. Thank you for letting us participate in the care of this patient. ??If you are a health care provider and have any questions regarding this report, please contact the number below. ??For patients who have questions please contact the health hearing healthcare practitioner that requested your imaging first. ? Electronically signed by: Jodee Ortega MD, [facility] ([phone]), at 12/06/2023 1:04 PM --------ORIGINAL REPORT -------- STEREOTACTIC GUIDED VACUUM ASSISTED BIOPSY OF THE RIGHT BREAST CLINICAL HISTORY: abnormal finding 4 cm calcifications [...] core biopsy specimens were obtained using a mPowaiva 9g device. Biopsy specimens were radiographed. ??The abnormality was present on the specimen digital radiograph. A Infinity marker clip was placed. Cranio-caudal and lateral digital mammography was performed to determine biopsy marker placement. ??The marker was shown to be at the expected location. COMPLICATIONS: None. PROCEDURAL ATTESTATION: Fellow: Tamir Fletcher MD Attending: I was present with the resident for the chaparro component(s) of the procedure and otherwise remained immediately available for the duration of the procedure. I attest to having personally viewed the images/test and approve the above interpretation. PATHOLOGIC DIAGNOSIS: Pending IMPRESSION: Pending result RECOMMENDATION: Pending REVIEW PATH CONFERENCE?: No Preliminary report signed by: Tamir Fletcher MD at 12/04/2023 11:58 AM I have personally reviewed the image(s) and the resident's interpretation and agree with the findings, Jodee Ortega MD at 12/05/2023 1:49 PM Thank you for letting us participate in the care of this patient. ??If you are a health care provider and have any questions regarding this report, please contact the number below. ??For patients who have questions please contact the health hearing healthcare practitioner that requested your imaging first. ? Electronically signed by: Jodee Ortega MD, [facility] ([phone]), at 12/05/2023 1:49 PM Impressions 12/05/2023 1:49 PM EDT Pending result RECOMMENDATION: Pending REVIEW PATH CONFERENCE?: No Preliminary report signed by: Tamir Fletchre MD at 12/04/2023 11:58 AM I have personally reviewed the image(s) and the resident's interpretation and agree with the findings, Jodee Ortega MD at 12/05/2023 1:49 PM Thank you for letting us participate in the care of this patient. ??If you are a health care provider and have any questions regarding this report, please contact the number below. ??For patients who have questions please contact the health hearing healthcare practitioner that requested your imaging first. ? Electronically signed by: Jodee Ortega MD, [facility] ([phone]), at 12/05/2023 1:49 PM [facility] [address] [place], [place] ??[id number] Narrative 12/05/2023 1:49 PM EDT STEREOTACTIC GUIDED VACUUM ASSISTED BIOPSY OF THE RIGHT BREAST CLINICAL HISTORY: abnormal finding 4 cm calcifications [...] core biopsy specimens were obtained using a mPowaiva 9g device. Biopsy specimens were radiographed. ??The abnormality was present on the specimen digital radiograph. A Infinity marker clip was placed. Cranio-caudal and lateral digital mammography was performed to determine biopsy marker placement. ??The marker was shown to be at the expected location. COMPLICATIONS: None. PROCEDURAL ATTESTATION: Fellow: Tamir Fletcher MD Attending: I was present with the resident for the chaparro component(s) of the procedure and otherwise remained immediately available for the duration of the procedure. I attest to having personally viewed the images/test and approve the above interpretation. PATHOLOGIC DIAGNOSIS: Pending Jodee Ortega MD IMG MAMMO ORDERABLES documented in this encounter Visit Diagnoses Diagnosis Abnormal finding on breast imaging Other (abnormal) findings on radiological examination of breast documented in this encounter Care Teams Electrician Marine Relationship Specialty Start Date End Date Julia Chatterjee MD [address] [facility] [address] [place] [address] PCP - General 01/31/10 documented as of this encounter
--- OUTSIDE RECORDS SUMMARY | 2024-04-17 01:22 | XMS_ITS | Encounter Summary ---
Author Organization [facility] [place] [address] Care Team Providers Care Federal Law Clerk Name Role Phone Julia Chatterjee MD Primary Care Provider [phone] Reason for Visit * Reason Comments Chemotherapy * Treatment/Therapy Plan Authorization (Routine) - Closed Specialty Diagnoses / Procedures Referred By Contac t Referred To Contact Hematology and Oncology Diagnoses Large granular lymphocytic leukemia Procedures TC FILGRASTIM (G-CSF), BIOSIMILAR, 1 MCG, INJECTION Lee Ann Jay MD [facility] DR HEMATOLOGY [place] [address] [facility] Hem Onc [address] [place] [address] Referral ID Status Reason Start Date Expiration Date Visits Re quested Visits Authorized [id number] Closed 04/11/2022 04/16/2024 99 Encounter Details Date Type Department Care Team (Late st Contact Info) Description 12/03/2023 8:00 AM EDT Infusion Hematology Oncology at [address] [phone] Large granular lymphocytic leukemia Social History Tobacco [...] Sign Reading Time Taken Comments Blood Pressure 143/75 12/03/2023 8:35 AM EDT Pulse 70 12/03/2023 8:35 AM EDT Temperature 36.3 ??C (97.3 ??F) 12/03/2023 8:35 AM ED T Respiratory Rate 18 12/03/2023 8:35 AM EDT Oxygen Saturation 100% 12/03/2023 8:35 AM EDT Inhaled Oxygen Concentration - - Weight 69.9 kg (154 lb) 12/03/2023 8:35 AM EDT Height 160 cm (5' 2.99) 12/03/2023 8:35 AM EDT Body Mass Index 27.29 12/03/2023 8:35 AM EDT documented in this encounter Progress Notes * Viji Pacheco, RN - 12/03/2023 8:00 AM EDT INFUSION THERAPY ADMINISTRATION NOTES DIAGNOSIS: leukopenia PROTOCOL:na [...] EST Scheduled View Only Radiation Oncology at [address] [address] 04/20/2024 12:45 PM EST Scheduled View Only Radiation Oncology at [address] [phone] 04/21/2024 10:45 AM EST Scheduled View Only Radiation Oncology at [address] [address] 04/21/2024 11:00 AM EST Office Visit Radiation Oncology at [address] [address] Radha Casiano MD [facility] [place] [address] 04/22/2024 3:00 PM EST Scheduled View Only Radiation Oncology at [address] [address] 04/23/2024 3:00 PM EST Scheduled View Only Radiation Oncology at [address] [address] 04/24/2024 3:00 PM EST Scheduled View Only Radiation Oncology at [address] [address] 04/27/2024 11:15 AM EST Scheduled View Only Radiation Oncology at [address] [address] 04/28/2024 11:30 AM EST Scheduled View Only Radiation Oncology at [address] [address] 04/28/2024 12:00 PM EST Office Visit Radiation Oncology at [address] [address] Radha Casiano MD [facility] [place] [address] 04/28/2024 2:00 PM EST Office Visit Cardiology at [address] [place] [address] Letty Montejo, JAYLEN [facility] [place] [address] 04/29/2024 11:15 AM EST Scheduled View Only Radiation Oncology at [address] [address] 04/30/2024 11:30 AM EST Scheduled View Only Radiation Oncology at [address] [address] 05/01/2024 11:15 AM EST Scheduled View Only Radiation Oncology at [address] [address] 05/04/2024 10:45 AM EST Scheduled View Only Radiation Oncology at [address] [address] 05/05/2024 1:00 PM EST Scheduled View Only Radiation Oncology at [address] [address] 05/05/2024 1:15 PM EST Office Visit Radiation Oncology at [address] [address] Radha Casiano MD [facility] [place] [address] 05/06/2024 1:00 PM EST Scheduled View Only Radiation Oncology at [address] [address] 05/07/2024 1:00 PM EST Scheduled View Only Radiation Oncology at [address] [address] 05/08/2024 1:00 PM EST Scheduled View Only Radiation Oncology at [address] [phone] 05/11/2024 11:30 AM EST Scheduled View Only Radiation Oncology at [address] [address] 01/13/2025 1:00 PM EST Office Visit Hematology/Oncology at [address] [address] Lee Ann Jay MD [facility] HEMATOLOGY [place] [address] Leti Adnerson, JAYLEN [facility] HEMATOLOGY [place] [address] documented as of this encounter Visit Diagnoses Diagnosis 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, without mention of having achieved remission documented in this encounter Administered Medications Inactive Administered Medications - up to 3 most recent administrations Medication Order MAR Action Action Date Dose Rate Site filgrastim-sndz (Zarxio) (480 mcg/0.8 mL) injection 480 mcg 480 mcg, Subcutaneous, DAILY, First dose on Sat12/03/23 at 0915, Until Discontinued, Administer pre invasive procedures or with febrile illness Bring to room temperature 30 minutes before administration, Routine Given 12/03/2023 9:02 AM EDT 480 mcg Left Upper Outer Quadrant documented in this encounter Care Teams Federal Law Clerk Relationship Specialty Start Date End Date Julia Chatterjee MD [address] [place] [address] PCP - General 01/31/10 documented as of this encounter
--- OUTSIDE RECORDS SUMMARY | 2024-04-17 01:22 | XMS_ITS | Encounter Summary ---
Author Organization [facility] [place] [address] Care Team Providers Care Procedure Tech Name Role Phone Julia Chatterjee MD Primary Care Provider Encounter Details Date Type Department Care Team (Late st Contact Info) Description 10/24/2023 Ancillary Procedure Radiology Library [place] [facility] [place] [id number] Julia Chatterjee MD [address] [place] [address] [facility] [address] [place], [place] [id number] Social History Tobacco Use Types Packs/Day Years [...] Scheduled View Only Radiation Oncology at [address] [address] 04/20/2024 12:45 PM EST Scheduled View Only Radiation Oncology at [address] [address] 04/21/2024 10:45 AM EST Scheduled View Only Radiation Oncology at [address] [address] 04/21/2024 11:00 AM EST Office Visit Radiation Oncology at [address] [address] Radha Casiano MD [facility] [place] [address] 04/22/2024 3:00 PM EST Scheduled View Only Radiation Oncology at [address] [address] 04/23/2024 3:00 PM EST Scheduled View Only Radiation Oncology at [address] [address] 04/24/2024 3:00 PM EST Scheduled View Only Radiation Oncology at [address] [address] 04/27/2024 11:15 AM EST Scheduled View Only Radiation Oncology at [address] [address] 04/28/2024 11:30 AM EST Scheduled View Only Radiation Oncology at [address] [address] 04/28/2024 12:00 PM EST Office Visit Radiation Oncology at [address] [address] Radha Casiano MD [facility] [place] [address] 04/28/2024 2:00 PM EST Office Visit Cardiology at [address] [place] [address] Letty Montejo, PROJECT DIRECTOR [facility] [place] [address] 04/29/2024 11:15 AM EST Scheduled View Only Radiation Oncology at [address] [address] 04/30/2024 11:30 AM EST Scheduled View Only Radiation Oncology at [address] [address] 05/01/2024 11:15 AM EST Scheduled View Only Radiation Oncology at [address] [address] 05/04/2024 10:45 AM EST Scheduled View Only Radiation Oncology at [address] [address] 05/05/2024 1:00 PM EST Scheduled View Only Radiation Oncology at [address] [address] 05/05/2024 1:15 PM EST Office Visit Radiation Oncology at [address] [address] Radha Casiano MD [facility] [place] [address] 05/06/2024 1:00 PM EST Scheduled View Only Radiation Oncology at [address] [address] 05/07/2024 1:00 PM EST Scheduled View Only Radiation Oncology at [address] [address] 05/08/2024 1:00 PM EST Scheduled View Only Radiation Oncology at [address] [address] 05/11/2024 11:30 AM EST Scheduled View Only Radiation Oncology at [address] [address] 01/13/2025 1:00 PM EST Office Visit Hematology/Oncology at [address] [address] Lee Ann Jay MD [facility] HEMATOLOGY [place] [address] Leti Anderson APRN [facility] HEMATOLOGY [place] [address] documented as of this encounter Procedures Procedure Name Priority Date/Time Associated Diagnosis Comments FILM LIBRARY STORAGE ONLY MAMMO Routine 10/24/2023 12:00 AM EDT documented in this encounter Results * Film Library- Storage Only Mammo (10/24/2023 12:00 AM EDT) Narrative [facility] - 10/29/2023 3:03 PM EDT This exam is auto-finalizing. It's purpose is for storage only. Julia Chatterjee MD G FILM LIBRARY ORD ERABLES Performing Organization Address City/State/[facility] Co de Phone Number [place], [place] documented in this encounter Visit Diagnoses Not on filedocumented in this encounter Care Teams Procedure Tech Relationship Specialty Start Date End Date Julia Chatterjee MD [facility] [address] [facility] [address] [place] [address] PCP - General 01/31/10 documented as of this encounter
--- OUTSIDE RECORDS SUMMARY | 2024-04-17 01:22 | XMS_ITS | Encounter Summary ---
Author Organization [facility] Address [facility] [place] [address] Care Team Providers Care Receiving Operator Name Role Phone Julia Chatterjee MD Primary Care Provider [phone] Encounter Details Date Type Department Care Team (Late st Contact Info) Description 04/17/2023 10:30 AM EST Office Visit Hematology/Oncology at [address] [address] Lee Ann Jay MD [facility] [place] [address] Leti Anderson, SENIOR SUPPLY CHAIN ANALYST [facility] [place] [address] Large granular lymphocytic leukemia Social History Tobacco [...] this encounter Progress Notes * Leti Anderson, SENIOR SUPPLY CHAIN ANALYST - 04/17/2023 10:30 AM EST Images from [...] help much - Followed with a local ultra sound technician and used dietary supplements to maintain remission - Did well until August 2019 when she developed abdominal pain, fevers, loose stool. Went to [facility] andd CT showing inflamed colon. Flex sig [...] qhs after colonoscopy in October 2019 - Plummer worse on [place]asa - fecal calpro 109 [...] flow ) are being pursued at the [facility]. Should cytopenias persist , it may [...] better now with the help of her ultra sound technician. Her symptoms are minimal on the naturopathic [...] LIVER 09/02/2019 CT Guided Aspiration Liver 09/02/2019 [facility] RAD CAT SCAN IR DRAIN CHECK/CHANGE/REMOVE 09/28/2019 IR Drain Check/Change/Remove 09/28/2019 Cliff Langston MD [facility] INTERVENTIONL RAD PRO BONE MARROW ASPIRATION W/BX THROUGH SAME INCISION/SITE Right 01/08/2017 ([facility]) BONE MARROW ASP PERFORMED W/BX THRU BX INCISION (WRVU 0.16) performed by Lee Ann Jay MD at [facility] OSC PRO COLONOSCOPY, BIOPSY 07/05/2011 COLONOSCOPY FLEXIBLE, WITH BX performed by AYAZ NELSON at [facility] ENDOSCOPY PRO COLONOSCOPY, BIOPSY N/A 10/22/2019 COLONOSCOPY FLEXIBLE, WITH BX (WRVU 3.66) performed by Yola Oliveros MD at [facility] ENDOSCOPY PRO COLONOSCOPY, BIOPSY N/A 04/12/2022 COLONOSCOPY FLEXIBLE, WITH BX (WRVU 3.66) performed by Yola Oliveros MD at [facility] ENDOSCOPY PRO COLONOSCOPY, REMV LESN, SNARE 07/05/2011 COLONOSCOPY, POLYPECTOMY, REMOVAL LESION BY SNARE performed by AYAZ NELSON at [facility] ENDOSCOPY PRO COLONOSCOPY, REMV LESN, SNARE N/A 04/12/2022 COLONOSCOPY, POLYPECTOMY, REMOVAL LESION BY SNARE (WRVU 4.67) performed by Yola Oliveros MD at [facility] ENDOSCOPY PRO DIAGNOSTIC BONE MARROW BIOPSIES Right 01/08/2017 ([facility]) BONE MARROW,BIOPSY (WRVU 1.37) performed by Lee Ann Jay MD at [facility] OSC PRO SIGMOIDOSCOPY, DIAGNOSTIC N/A 09/02/2019 FLEXIBLE SIGMOIDOSCOPY performed by Ayaz Nelson MD at [facility] ENDOSCOPY Medications; Current Outpatient Medications Medication [...] low white counts. Social History: Lives in [facility]. . 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 No hyperemia, exudative plaques [...] flow ) are being pursued at the [facility]. Should cytopenias persist , it may [...] No new images reviewed today US at [facility] 11/2016. Liver 14.5 cm. Spleen 8cm. \ ASSESSMENT/PLAN: 72 y.o. Leti Parry is a healthy female who has been referred to us for leukopenia. She has hadleukopenia since 2006 with normal hemoglobin and platelet. She has no symptoms- no increased frequency of infections. Her OSH labs showed worsening leukopenia and peripheral smear concerning for large granular lymphocytes. She has been working with a ultra sound technician who started her on selenium and zinc and about a dozen other supplements. Counts are a bit higher so we will see. Dedicated Local Truck Driver has been helping her with bowel issues. [...] she saw Dr Han Castillo at [facility], an LGL specialist, he did a lot [...] counseling given as appropriate. Leti Anderson, MSN, SENIOR SUPPLY CHAIN ANALYST Nurse Practitioner Section of Hematology [facility] [place] Cc: Julia Chatterjee MD documented in this encounter Plan of Treatment Upcoming Encounters Date Type Department Care Team (Late st Contact Info) Description 04/17/2024 2:30 PM EST Scheduled View Only Radiation Oncology at [address] [phone] 04/20/2024 12:45 PM EST Scheduled View Only Radiation Oncology at [address] [address] 04/21/2024 10:45 AM EST Scheduled View Only Radiation Oncology at [address] [address] 04/21/2024 11:00 AM EST Office Visit Radiation Oncology at [address] [address] Radha Casiano MD [facility] [place] [address] 04/22/2024 3:00 PM EST Scheduled View Only Radiation Oncology at [address] [address] 04/23/2024 3:00 PM EST Scheduled View Only Radiation Oncology at [address] [address] 04/24/2024 3:00 PM EST Scheduled View Only Radiation Oncology at [address] [address] 04/27/2024 11:15 AM EST Scheduled View Only Radiation Oncology at [address] [phone] 04/28/2024 11:30 AM EST Scheduled View Only Radiation Oncology at [address] [address] 04/28/2024 12:00 PM EST Office Visit Radiation Oncology at [address] [address] Radha Casiano MD [facility] [place] [address] 04/28/2024 2:00 PM EST Office Visit Cardiology at [address] [place] [phone] Letty Montejo APRN [facility] [place] [address] 04/29/2024 11:15 AM EST Scheduled View Only Radiation Oncology at [address] [address] 04/30/2024 11:30 AM EST Scheduled View Only Radiation Oncology at [address] [address] 05/01/2024 11:15 AM EST Scheduled View Only Radiation Oncology at [address] [address] 05/04/2024 10:45 AM EST Scheduled View Only Radiation Oncology at [address] [address] 05/05/2024 1:00 PM EST Scheduled View Only Radiation Oncology at [address] [address] 05/05/2024 1:15 PM EST Office Visit Radiation Oncology at [address] [address] Radha Casiano MD [facility] RADI[place] [address] 05/06/2024 1:00 PM EST Scheduled View Only Radiation Oncology at [address] [address] 05/07/2024 1:00 PM EST Scheduled View Only Radiation Oncology at [address] [address] 05/08/2024 1:00 PM EST Scheduled View Only Radiation Oncology at [address] [address] 05/11/2024 11:30 AM EST Scheduled View Only Radiation Oncology at [address] [address] 01/13/2025 1:00 PM EST Office Visit Hematology/Oncology at [address] [address] Lee Ann Jay MD [facility] [place] [address] Leti Anderson APRN [facility] [place] [address] Scheduled Orders Name Type Priority Associated Diagnoses [...] 4.69 Hemoglobin 13.4 Hematocrit 41.7 Platelet 205 Neutrophil Absolute (ANC) - Automated 0.12(L) Blood 04/09/2023 Historical Provider HEMATOLOGY ORDERA BLES * Comprehensive metabolic panel (non-fasting) (04/09/2023) Glucose 101 Blood Urea Nitrogen 12 Creatinine 0.8 Sodium 138 Potassium 4.2 Calcium 9.1 Protein, Total 8.2 Albumin 3.6 Bilirubin, Total 0.6 Alkaline Phosphatase 78 Aspartate Aminotransferase 21 Alanine Aminotransferase 21 Blood 04/09/2023 Historical Provider CHEMISTRY ORDERAB LES * Magnesium (04/09/2023) Pathologist [facility] Magnesium 2.0 mg/dL Blood 04/09/2023 Historical Provider CHEMISTRY ORDERAB LES * Hemoglobin A1c (04/09/2023) Pathologist [facility] Hemoglobin A1c 5.4 Blood 04/09/2023 Historical Provider CHEMISTRY ORDERAB LES documented in this encounter Visit Diagnoses Diagnosis 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, without mention of having achieved remission documented in this encounter Care Teams Receiving Operator Relationship Specialty Start Date End Date Julia Chatterjee MD [address] [place] [address] PCP - General 01/31/10 documented as of this encounter
--- OUTSIDE RECORDS SUMMARY | 2024-04-17 01:22 | XMS_ITS | Encounter Summary ---
[place] [address] Care Team Providers Care Senior Advocate Name Role Phone Julia Morales MD Primary Care Provider [phone] Encounter Details Date Type Department Care Team (Late Contact Info) Description 10/29/2023 Telephone Hematology [place] [phone] Raissa Rodriguez Social History Tobacco Use Types Packs/Day Years [...] encounter Miscellaneous Notes * Telephone Encounter - Raissa Rodriguez - 10/29/2023 11:48 AM EDT Leti Parry 1950 [id number] Referring provider: JULIA MORALES Date of Referral: 10/29/23 Please review outside breast imaging dated: 10/25/23 Reason for exam and clinical history:RIGHT BREAST CALCS Category:4 Questions to be answered:BX MORE IMAGING Sending Institution: [facility] Patient would like treatment at: Call pt at: Home Phone [phone] documented in this encounter Plan of Treatment Upcoming Encounters Date Type Department Care Team (Late st Contact Info) Description 04/17/2024 2:30 PM EST Scheduled View Only Radiation Oncology at [address] [address] 04/20/2024 12:45 PM EST Scheduled View Only Radiation Oncology at [address] [address] 04/21/2024 10:45 AM EST Scheduled View Only Radiation Oncology at [address] [address] 04/21/2024 11:00 AM EST Office Visit Radiation Oncology at [address] [address] Radha Casiano MD [facility] [place] [address] 04/22/2024 3:00 PM EST Scheduled View Only Radiation Oncology at [address] [address] 04/23/2024 3:00 PM EST Scheduled View Only Radiation Oncology at [address] [address] 04/24/2024 3:00 PM EST Scheduled View Only Radiation Oncology at [address] [address] 04/27/2024 11:15 AM EST Scheduled View Only Radiation Oncology at [address] [address] 04/28/2024 11:30 AM EST Scheduled View Only Radiation Oncology at [address] [address] 04/28/2024 12:00 PM EST Office Visit Radiation Oncology at [address] [address] Radha Casiano MD [facility] [place] [address] 04/28/2024 2:00 PM EST Office Visit Cardiology at [address] [place] [address] Letty Montejo APRN [facility] [place] [address] 04/29/2024 11:15 AM EST Scheduled View Only Radiation Oncology at [address] [address] 04/30/2024 11:30 AM EST Scheduled View Only Radiation Oncology at [address] [address] 05/01/2024 11:15 AM EST Scheduled View Only Radiation Oncology at [address] [address] 05/04/2024 10:45 AM EST Scheduled View Only Radiation Oncology at [address] [address] 05/05/2024 1:00 PM EST Scheduled View Only Radiation Oncology at [address] [address] 05/05/2024 1:15 PM EST Office Visit Radiation Oncology at [address] [address] Radha Casiano MD [facility] [place] [address] 05/06/2024 1:00 PM EST Scheduled View Only Radiation Oncology at [address] [address] 05/07/2024 1:00 PM EST Scheduled View Only Radiation Oncology at [address] [address] 05/08/2024 1:00 PM EST Scheduled View Only Radiation Oncology at [address] [address] 05/11/2024 11:30 AM EST Scheduled View Only Radiation Oncology at [address] [address] 01/13/2025 1:00 PM EST Office Visit Hematology/Oncology at [address] [address] Lee Ann Jay MD [facility] DR HEMATOLOGY [place] [address] Leti Anderson APRN [facility] [place]EMATOLOG[place] [address] documented as of this encounter Visit Diagnoses Not on filedocumented in this encounter Care Teams Senior Advocate Relationship Specialty Start Date End Date Julia Morales MD [address] [facility] 1 [place] [address] PCP - General 01/31/10 documented as of this encounter
--- OUTSIDE RECORDS SUMMARY | 2024-04-17 01:22 | XMS_ITS | Encounter Summary ---
Author Organization Formerly [facility], 1928–1983 Address [facility] [place] [address] Care Team Providers Care District Ranger Name Role Phone Julia Chatterjee MD Primary Care Provider [phone] Encounter Details Date Type Department Care Team (Late st Contact Info) Description 10/25/2023 12:05 AM EDT Ancillary Procedure Radiology Library at [place] [address] Julia Chatterjee MD [address] [place] [address] [facility] [address] [place], [place] [id number] Social History Tobacco Use Types Packs/Day Years [...] Scheduled View Only Radiation Oncology at [address] [address] 04/20/2024 12:45 PM EST Scheduled View Only Radiation Oncology at [address] [address] 04/21/2024 10:45 AM EST Scheduled View Only Radiation Oncology at [address] [address] 04/21/2024 11:00 AM EST Office Visit Radiation Oncology at [address] [address] Radha Casiano MD [facility] RADIATION [place] [address] 04/22/2024 3:00 PM EST Scheduled View Only Radiation Oncology at [address] [address] 04/23/2024 3:00 PM EST Scheduled View Only Radiation Oncology at [address] [address] 04/24/2024 3:00 PM EST Scheduled View Only Radiation Oncology at [address] [address] 04/27/2024 11:15 AM EST Scheduled View Only Radiation Oncology at [address] [address] 04/28/2024 11:30 AM EST Scheduled View Only Radiation Oncology at [address] [address] 04/28/2024 12:00 PM EST Office Visit Radiation Oncology at [address] [address] Radha Casiano MD [facility] [place] [address] 04/28/2024 2:00 PM EST Office Visit Cardiology at [address] [place] [address] Letty Montejo, JAYLEN [facility] [place] [address] 04/29/2024 11:15 AM EST Scheduled View Only Radiation Oncology at [address] [address] 04/30/2024 11:30 AM EST Scheduled View Only Radiation Oncology at [address] [address] 05/01/2024 11:15 AM EST Scheduled View Only Radiation Oncology at [address] [address] 05/04/2024 10:45 AM EST Scheduled View Only Radiation Oncology at [address] [address] 05/05/2024 1:00 PM EST Scheduled View Only Radiation Oncology at [address] [address] 05/05/2024 1:15 PM EST Office Visit Radiation Oncology at [address] [address] Radha Casiano MD [facility] [place] [address] 05/06/2024 1:00 PM EST Scheduled View Only Radiation Oncology at [address] [address] 05/07/2024 1:00 PM EST Scheduled View Only Radiation Oncology at [address] [address] 05/08/2024 1:00 PM EST Scheduled View Only Radiation Oncology at [address] [address] 05/11/2024 11:30 AM EST Scheduled View Only Radiation Oncology at [address] [address] 01/13/2025 1:00 PM EST Office Visit Hematology/Oncology at [address] [address] Lee Ann Jay MD [facility] [place] [address] Leti Anderson APRN [facility] [place] [address] documented as of this encounter Procedures Procedure Name Priority Date/Time Associated Diagnosis Comments FILM LIBRARY STORAGE ONLY MAMMO Routine 10/25/2023 12:05 AM EDT documented in this encounter Results * Film Library- Storage Only Mammo (10/25/2023 12:05 AM EDT) Narrative [facility] - 10/29/2023 3:03 PM EDT This exam is auto-finalizing. It's purpose is for storage only. Julia Chatterjee MD G FILM LIBRARY ORD ERABLES [place] documented in this encounter Visit Diagnoses Not on filedocumented in this encounter Care Teams District Ranger Relationship Specialty Start Date End Date Julia Chatterjee MD [address] [place] [address] [address] [place] [address] PCP - General 01/31/10 documented as of this encounter
--- OUTSIDE RECORDS SUMMARY | 2024-04-17 01:22 | XMS_ITS | Encounter Summary ---
Author Organization [facility] [place] [address] Care Team Providers Care Functional Consultant Name Role Phone Julia Chatterjee MD Primary Care Provider [phone] Reason for Visit * Reason Comments Injections zarxio Encounter Details Date Type Department Care Team (Late st Contact Info) Description 04/11/2022 12:30 PM EST Infusion Hematology Oncology at [address] [address] Large granular lymphocytic leukemia Social [...] EST Scheduled View Only Radiation Oncology at [address] [address] 04/20/2024 12:45 PM EST Scheduled View Only Radiation Oncology at [address] [address] 04/21/2024 10:45 AM EST Scheduled View Only Radiation Oncology at [address] [address] 04/21/2024 11:00 AM EST Office Visit Radiation Oncology at [address] [address] Radha Casiano MD [facility] [place] [address] 04/22/2024 3:00 PM EST Scheduled View Only Radiation Oncology at [address] [address] 04/23/2024 3:00 PM EST Scheduled View Only Radiation Oncology at [address] [address] 04/24/2024 3:00 PM EST Scheduled View Only Radiation Oncology at [address] [address] 04/27/2024 11:15 AM EST Scheduled View Only Radiation Oncology at [address] [address] 04/28/2024 11:30 AM EST Scheduled View Only Radiation Oncology at [address] [address] 04/28/2024 12:00 PM EST Office Visit Radiation Oncology at [address] [address] Radha Casiano MD [facility] [place] [address] 04/28/2024 2:00 PM EST Office Visit Cardiology at [address] [place] [address] Letty Montejo APRN [facility] [place] [address] 04/29/2024 11:15 AM EST Scheduled View Only Radiation Oncology at [address] [address] 04/30/2024 11:30 AM EST Scheduled View Only Radiation Oncology at [address] [address] 05/01/2024 11:15 AM EST Scheduled View Only Radiation Oncology at [address] [address] 05/04/2024 10:45 AM EST Scheduled View Only Radiation Oncology at [address] [address] 05/05/2024 1:00 PM EST Scheduled View Only Radiation Oncology at [address] [address] 05/05/2024 1:15 PM EST Office Visit Radiation Oncology at [address] [address] Radha Casiano MD [facility] [place] [address] 05/06/2024 1:00 PM EST Scheduled View Only Radiation Oncology at [address] [address] 05/07/2024 1:00 PM EST Scheduled View Only Radiation Oncology at [address] [address] 05/08/2024 1:00 PM EST Scheduled View Only Radiation Oncology at [address] [address] 05/11/2024 11:30 AM EST Scheduled View Only Radiation Oncology at [address] [address] 01/13/2025 1:00 PM EST Office Visit Hematology/Oncology at [address] [address] Lee Ann Jay MD [facility] DR HEMATOLOGY [place] [address] Leti Anderson APRN [facility] HEMATOLOGY [place] [address] documented as of this encounter Visit Diagnoses [...] Quadrant documented in this encounter Care Teams Functional Consultant Relationship Specialty Start Date End Date Julia Chatterjee MD [address] [place] [address] PCP - General 01/31/10 documented as of this encounter
--- OUTSIDE RECORDS SUMMARY | 2024-04-17 01:22 | XMS_ITS | Encounter Summary ---
Author Organization [facility] Address [facility] [place] [address] Care Team Providers Care Blueprinting Machine Operator Name Role Phone Julia Chatterjee [...] EST Scheduled View Only Radiation Oncology at [address] [address] 04/20/2024 12:45 PM EST Scheduled View Only Radiation Oncology at [address] [address] 04/21/2024 10:45 AM EST Scheduled View Only Radiation Oncology at [address] [address] 04/21/2024 11:00 AM EST Office Visit Radiation Oncology at [address] [address] Radha Casiano MD [facility] [place] [address] 04/22/2024 3:00 PM EST Scheduled View Only Radiation Oncology at [address] [address] 04/23/2024 3:00 PM EST Scheduled View Only Radiation Oncology at [address] [address] 04/24/2024 3:00 PM EST Scheduled View Only Radiation Oncology at [address] [address] 04/27/2024 11:15 AM EST Scheduled View Only Radiation Oncology at [address] [address] 04/28/2024 11:30 AM EST Scheduled View Only Radiation Oncology at [address] [address] 04/28/2024 12:00 PM EST Office Visit Radiation Oncology at [address] [address] Radha Casiano MD [facility] [place] [address] 04/28/2024 2:00 PM EST Office Visit Cardiology at [address] [address] Letty Montejo APRN [facility] [place] [address] 04/29/2024 11:15 AM EST Scheduled View Only Radiation Oncology at [address] [address] 04/30/2024 11:30 AM EST Scheduled View Only Radiation Oncology at [address] [address] 05/01/2024 11:15 AM EST Scheduled View Only Radiation Oncology at [address] [address] 05/04/2024 10:45 AM EST Scheduled View Only Radiation Oncology at [address] [address] 05/05/2024 1:00 PM EST Scheduled View Only Radiation Oncology at [address] [address] 05/05/2024 1:15 PM EST Office Visit Radiation Oncology at [address] [address] Radha Casiano MD [facility] [place] [address] 05/06/2024 1:00 PM EST Scheduled View Only Radiation Oncology at [address] [address] 05/07/2024 1:00 PM EST Scheduled View Only Radiation Oncology at [address] [address] 05/08/2024 1:00 PM EST Scheduled View Only Radiation Oncology at [address] [address] 05/11/2024 11:30 AM EST Scheduled View Only Radiation Oncology at [address] [address] 01/13/2025 1:00 PM EST Office Visit Hematology/Oncology at [address] [address] Lee Ann Jay MD [facility] [place] [address] Leti Anderson APRN [facility] [place] [address] documented as of this encounter Visit Diagnoses Not on filedocumented in this encounter Care Teams Blueprinting Machine Operator Relationship Specialty Start Date End Date Julia Chatterjee MD [address] [place] [address] PCP - General 01/31/10 documented as of this encounter
--- OUTSIDE RECORDS SUMMARY | 2024-04-17 01:22 | XMS_ITS | Encounter Summary ---
Author Organization [facility] [place] [address] Care Team Providers Care Assistant Head Cashier Name Role Phone Julia Chatterjee MD Primary Care Provider [phone] Reason for Visit * Reason Onset Date Comments Abnormal Labs 04/05/2022 Critical ANC- 0. 23 Encounter Details Date Type Department Care Team (Late Contact Info) Description 04/05/2022 Telephone Hematology/Oncology at [address] [phone] Michelle Layne RN Abnormal Labs (Critical ANC- [...] EST Critical ANC of 0.23 called by [facility] lab. CBC entered into eD. Has a FUV 04/11. Sent to providers forreview. documented in this encounter Plan of Treatment Upcoming Encounters Date Type Department Care Team (Late Contact Info) Description 04/17/2024 2:30 PM EST Scheduled View Only Radiation Oncology at [address] [address] 04/20/2024 12:45 PM EST Scheduled View Only Radiation Oncology at [address] [address] 04/21/2024 10:45 AM EST Scheduled View Only Radiation Oncology at [address] [address] 04/21/2024 11:00 AM EST Office Visit Radiation Oncology at [address] [address] Radha Casiano MD [facility] [place] [address] 04/22/2024 3:00 PM EST Scheduled View Only Radiation Oncology at [address] [address] 04/23/2024 3:00 PM EST Scheduled View Only Radiation Oncology at [address] [address] 04/24/2024 3:00 PM EST Scheduled View Only Radiation Oncology at [address] [address] 04/27/2024 11:15 AM EST Scheduled View Only Radiation Oncology at [address] [address] 04/28/2024 11:30 AM EST Scheduled View Only Radiation Oncology at [address] [address] 04/28/2024 12:00 PM EST Office Visit Radiation Oncology at [address] [address] Radha Casiano MD [facility] [place] [address] 04/28/2024 2:00 PM EST Office Visit Cardiology at [address] [phone] Letty Montejo APRN [facility] [place] [address] 04/29/2024 11:15 AM EST Scheduled View Only Radiation Oncology at [address] [address] 04/30/2024 11:30 AM EST Scheduled View Only Radiation Oncology at [address] [address] 05/01/2024 11:15 AM EST Scheduled View Only Radiation Oncology at [address] [address] 05/04/2024 10:45 AM EST Scheduled View Only Radiation Oncology at [address] [address] 05/05/2024 1:00 PM EST Scheduled View Only Radiation Oncology at [address] [address] 05/05/2024 1:15 PM EST Office Visit Radiation Oncology at [address] [address] Radha Casiano MD [facility] [place] [address] 05/06/2024 1:00 PM EST Scheduled View Only Radiation Oncology at [address] [address] 05/07/2024 1:00 PM EST Scheduled View Only Radiation Oncology at [address] [address] 05/08/2024 1:00 PM EST Scheduled View Only Radiation Oncology at [address] [address] 05/11/2024 11:30 AM EST Scheduled View Only Radiation Oncology at [address] [address] 01/13/2025 1:00 PM EST Office Visit Hematology/Oncology at [address] [address] Lee Ann Jay MD [facility] DR [place] [address] Leti Anderson APRN [facility] [place] [address] documented as of this encounter Procedures Procedure Name Priority Date/Time Associated Diagnosis Comments CBC (WITH DIFF) Routine 04/05/2022 8:30 AM EST documented in this encounter Results * (ABNORMAL) CBC (with Diff) (04/05/2022 8:30 AM EST) White Blood Cell 2.08 [facility] Hemoglobin 13.0 [facility] Hematocrit 40.9 [facility] Platelet [address] RN [facility] Neutrophil Absolute (ANC) - Automated 0.23(A) 1.2 - 6.7 [facility] Blood 04/05/2022 8:30 AM EST Lee Ann Jay MD HEMATOLOGY ORDER ASHLEY [facility] [address] [facility] [place], [place] [address] [phone] documented in this encounter Visit Diagnoses Not on filedocumented in this encounter Care Teams Assistant Head Cashier Relationship Specialty Start Date End Date Julia Chatterjee MD [facility] [address] [place] [address] PCP - General 01/31/10 documented as of this encounter
--- OUTSIDE RECORDS SUMMARY | 2024-04-17 01:22 | XMS_ITS | Encounter Summary ---
Author Organization [facility] [place] [address] Care Team Providers Care Barrel Scraper Name Role Phone Julia Chatterjee MD Primary Care Provider [phone] Reason for Visit * Reason Onset Date Comments Follow-up 11/26/2023 Encounter Details Date Type Department Care Team (Late st Contact Info) Description 11/26/2023 Telephone Hematology/Oncology at [address] [address] Melany Alvarado, RN Follow-up Social History Tobacco Use Types [...] encounter Miscellaneous Notes * Telephone Encounter - Melany Alvarado RN - 11/26/2023 12:27 PM EDT Return call to patient to discuss recommendations per Leti Anderson APRN: get a CBC the day prior and give her a dose of GCSF 480mcg if ANC < 1000. Leti expressed understanding and is in agreement with the plan, she will have labs drawn at [facility] at 0700 on 12/02 then come here for the neupogen injection if needed. * Telephone Encounter - Melany Alvarado RN - 11/26/2023 10:16 AM EDT Leti is scheduled for a breast biopsy at on 12/03 she is wondering if she should have a Neupogeninjection before that is done. * Telephone Encounter - Melany Alvarado RN - 11/26/2023 10:16 AM EDT ----- Message from [employer] sent at 11/26/2023 9:55 AM EDT ----- Leti is scheduled for a biopsy on 12.03. Will she need to have a Neupogen shot prior? [phone] documented in this encounter Plan of Treatment Upcoming Encounters Date Type Department Care Team (Late st Contact Info) Description 04/17/2024 2:30 PM EST Scheduled View Only Radiation Oncology at [address] [address] 04/20/2024 12:45 PM EST Scheduled View Only Radiation Oncology at [address] [address] 04/21/2024 10:45 AM EST Scheduled View Only Radiation Oncology at [address] [address] 04/21/2024 11:00 AM EST Office Visit Radiation Oncology at [address] [address] Radha Casiano MD [facility] [place] [address] 04/22/2024 3:00 PM EST Scheduled View Only Radiation Oncology at [address] [address] 04/23/2024 3:00 PM EST Scheduled View Only Radiation Oncology at [address] [address] 04/24/2024 3:00 PM EST Scheduled View Only Radiation Oncology at [address] [address] 04/27/2024 11:15 AM EST Scheduled View Only Radiation Oncology at [address] [address] 04/28/2024 11:30 AM EST Scheduled View Only Radiation Oncology at [address] [address] 04/28/2024 12:00 PM EST Office Visit Radiation Oncology at [address] [address] Radha Casiano MD [facility] [place] [address] 04/28/2024 2:00 PM EST Office Visit Cardiology at [address] [place] [address] Letty Montejo APRN [facility] [place] [address] 04/29/2024 11:15 AM EST Scheduled View Only Radiation Oncology at [address] [address] 04/30/2024 11:30 AM EST Scheduled View Only Radiation Oncology at [address] [address] 05/01/2024 11:15 AM EST Scheduled View Only Radiation Oncology at [address] [address] 05/04/2024 10:45 AM EST Scheduled View Only Radiation Oncology at [address] [address] 05/05/2024 1:00 PM EST Scheduled View Only Radiation Oncology at [address] [address] 05/05/2024 1:15 PM EST Office Visit Radiation Oncology at [address] [address] Radha Casiano MD [facility] [place] [address] 05/06/2024 1:00 PM EST Scheduled View Only Radiation Oncology at [address] [address] 05/07/2024 1:00 PM EST Scheduled View Only Radiation Oncology at [address] [address] 05/08/2024 1:00 PM EST Scheduled View Only Radiation Oncology at [address] [address] 05/11/2024 11:30 AM EST Scheduled View Only Radiation Oncology at [address] [address] 01/13/2025 1:00 PM EST Office Visit Hematology/Oncology at [address] [address] Lee Ann Jay MD [facility] DR HEMATOLOGY [place] [address] Leti Anderson APRN [facility] DR HEMATOLOGY [place] [address] documented as of this encounter Visit Diagnoses Not on filedocumented in this encounter Care Teams Barrel Scraper Relationship Specialty Start Date End Date Julia Chatterjee MD [address] [place] [address] PCP - General 01/31/10 documented as of this encounter
--- OUTSIDE RECORDS SUMMARY | 2024-04-17 01:22 | XMS_ITS | Encounter Summary ---
Author Organization [facility] [place] [address] Care Team Providers Care Insurance Counselor Name Role Phone Julia Chatterjee MD Primary Care Provider [phone] Reason for Visit * Reason Onset Date Comments Letter Request From Patient 01/30/2023 Encounter Details Date Type Department Care Team (Late st Contact Info) Description 01/30/2023 Telephone Hematology/Oncology at [address] [address] Vicky Madrigal RN Letter Request [...] Sent: 01/24/2023 12:50 PM EST To: Mera Cintron RN; [facility] Hem Onc Nurse Leti called in to say that she has jury duty on 02/13/2023, she is not comfortable being in group of people that large and wondered if Dr. Jay would write her a note to get her out of it? Best call back number [phone] documented in this encounter Plan of Treatment Upcoming Encounters Date Type Department Care Team (Late st Contact Info) Description 04/17/2024 2:30 PM EST Scheduled View Only Radiation Oncology at [address] [address] 04/20/2024 12:45 PM EST Scheduled View Only Radiation Oncology at [address] [address] 04/21/2024 10:45 AM EST Scheduled View Only Radiation Oncology at [address] [address] 04/21/2024 11:00 AM EST Office Visit Radiation Oncology at [address] [address] Radha Casiano MD [facility] [place] [address] 04/22/2024 3:00 PM EST Scheduled View Only Radiation Oncology at [address] [address] 04/23/2024 3:00 PM EST Scheduled View Only Radiation Oncology at [address] [address] 04/24/2024 3:00 PM EST Scheduled View Only Radiation Oncology at [address] [address] 04/27/2024 11:15 AM EST Scheduled View Only Radiation Oncology at [address] [address] 04/28/2024 11:30 AM EST Scheduled View Only Radiation Oncology at [address] [address] 04/28/2024 12:00 PM EST Office Visit Radiation Oncology at [address] [address] Radha Casiano MD [facility] [place] [address] 04/28/2024 2:00 PM EST Office Visit Cardiology at [address] [place] [address] Letty Montejo APRN [facility] [place] [address] 04/29/2024 11:15 AM EST Scheduled View Only Radiation Oncology at [address] [address] 04/30/2024 11:30 AM EST Scheduled View Only Radiation Oncology at [address] [address] 05/01/2024 11:15 AM EST Scheduled View Only Radiation Oncology at [address] [address] 05/04/2024 10:45 AM EST Scheduled View Only Radiation Oncology at [address] [address] 05/05/2024 1:00 PM EST Scheduled View Only Radiation Oncology at [address] [address] 05/05/2024 1:15 PM EST Office Visit Radiation Oncology at [address] [address] Radha Casiano MD [facility] [place] [address] 05/06/2024 1:00 PM EST Scheduled View Only Radiation Oncology at [address] [address] 05/07/2024 1:00 PM EST Scheduled View Only Radiation Oncology at [address] [address] 05/08/2024 1:00 PM EST Scheduled View Only Radiation Oncology at [address] [address] 05/11/2024 11:30 AM EST Scheduled View Only Radiation Oncology at [address] [address] 01/13/2025 1:00 PM EST Office Visit Hematology/Oncology at [address] [address] Lee Ann Jay MD [facility] [place] [address] Leti Anderson APRN [facility] [place] [address] documented as of this encounter Visit Diagnoses Not on filedocumented in this encounter Care Teams Insurance Counselor Relationship Specialty Start Date End Date Julia Chatterjee MD [address] [place] [address] PCP - General 01/31/10 documented as of this encounter
--- OUTSIDE RECORDS SUMMARY | 2024-04-17 01:23 | XMS_ITS | Encounter Summary ---
[place] [address] Care Team Providers Care Shadow Graph Weight Operator Name Role Phone Julia Chatterjee MD Primary Care Provider [phone] Encounter Details Date Type Department Care Team (Late Contact Info) Description 01/21/2020 Telephone [place] [id number] Ailyn Momin RN Social History Tobacco Use [...] - 01/21/2020 10:35 AM EST Call from [facility] lab with critical lab values for Leti. WBC: 1.62 ANC: 0.[address] Oliveros and Dr. Jay aware documented in this encounter Plan of Treatment Upcoming Encounters Date Type Department Care Team (Late st Contact Info) Description 04/17/2024 2:30 PM EST Scheduled View Only Radiation Oncology at [address] [address] 04/20/2024 12:45 PM EST Scheduled View Only Radiation Oncology at [address] [address] 04/21/2024 10:45 AM EST Scheduled View Only Radiation Oncology at [address] [address] 04/21/2024 11:00 AM EST Office Visit Radiation Oncology at [address] [address] Radha Casiano MD [facility] [place] [address] 04/22/2024 3:00 PM EST Scheduled View Only Radiation Oncology at [address] [address] 04/23/2024 3:00 PM EST Scheduled View Only Radiation Oncology at [address] [address] 04/24/2024 3:00 PM EST Scheduled View Only Radiation Oncology at [address] [address] 04/27/2024 11:15 AM EST Scheduled View Only Radiation Oncology at [address] [address] 04/28/2024 11:30 AM EST Scheduled View Only Radiation Oncology at [address] [address] 04/28/2024 12:00 PM EST Office Visit Radiation Oncology at [address] [address] Radha Casiano MD [facility] [place] [address] 04/28/2024 2:00 PM EST Office Visit Cardiology at [address] [place] [address] Letty Montejo, TAR BOILER [facility] [place] [address] 04/29/2024 11:15 AM EST Scheduled View Only Radiation Oncology at [address] [address] 04/30/2024 11:30 AM EST Scheduled View Only Radiation Oncology at [address] [address] 05/01/2024 11:15 AM EST Scheduled View Only Radiation Oncology at [address] [address] 05/04/2024 10:45 AM EST Scheduled View Only Radiation Oncology at [address] [address] 05/05/2024 1:00 PM EST Scheduled View Only Radiation Oncology at [address] [address] 05/05/2024 1:15 PM EST Office Visit Radiation Oncology at [address] [address] Radha Casiano MD [facility] [place] [address] 05/06/2024 1:00 PM EST Scheduled View Only Radiation Oncology at [address] [address] 05/07/2024 1:00 PM EST Scheduled View Only Radiation Oncology at [address] [address] 05/08/2024 1:00 PM EST Scheduled View Only Radiation Oncology at [address] [address] 05/11/2024 11:30 AM EST Scheduled View Only Radiation Oncology at [address] [address] 01/13/2025 1:00 PM EST Office Visit Hematology/Oncology at [address] [address] Lee Ann Jay MD [facility] DR HEMATOLOGY [place] [address] Leti Anderson APRN [facility] HEMATOLOGY [place] [address] documented as of this encounter Visit Diagnoses Not on filedocumented in this encounter Care Teams Shadow Graph Weight Operator Relationship Specialty Start Date End Date Julia Chatterjee MD [facility] KINA FELIZ [facility] 1 [place] [address] PCP - General 01/31/10 documented as of this encounter
--- OUTSIDE RECORDS SUMMARY | 2024-04-17 01:23 | XMS_ITS | Encounter Summary ---
Author Organization [facility] [place] [address] Care Team Providers Care Campus Executive Director Name Role Phone Julia Chatterjee MD Primary Care Provider [phone] Encounter Details Date Type Department Care Team (Late st Contact Info) Description 01/11/2020 Orders [place] [address] Yola Oliveros MD [facility] [place] [address] Other ulcerative colitis with complication; Abscess, hepatic [...] EST Scheduled View Only Radiation Oncology at [address] [address] 04/20/2024 12:45 PM EST Scheduled View Only Radiation Oncology at [address] [address] 04/21/2024 10:45 AM EST Scheduled View Only Radiation Oncology at [address] [address] 04/21/2024 11:00 AM EST Office Visit Radiation Oncology at [address] [address] Radha Casiano MD [facility] [place] [address] 04/22/2024 3:00 PM EST Scheduled View Only Radiation Oncology at [address] [address] 04/23/2024 3:00 PM EST Scheduled View Only Radiation Oncology at [address] [address] 04/24/2024 3:00 PM EST Scheduled View Only Radiation Oncology at [address] [address] 04/27/2024 11:15 AM EST Scheduled View Only Radiation Oncology at [address] [address] 04/28/2024 11:30 AM EST Scheduled View Only Radiation Oncology at [address] [address] 04/28/2024 12:00 PM EST Office Visit Radiation Oncology at [address] [address] Radha Casiano MD [facility] [place] [address] 04/28/2024 2:00 PM EST Office Visit Cardiology at [address] [place] [phone] Letty Montejo, JAYLEN [facility] [place] [address] 04/29/2024 11:15 AM EST Scheduled View Only Radiation Oncology at [address] [address] 04/30/2024 11:30 AM EST Scheduled View Only Radiation Oncology at [address] [address] 05/01/2024 11:15 AM EST Scheduled View Only Radiation Oncology at [address] [address] 05/04/2024 10:45 AM EST Scheduled View Only Radiation Oncology at [address] [address] 05/05/2024 1:00 PM EST Scheduled View Only Radiation Oncology at [address] [address] 05/05/2024 1:15 PM EST Office Visit Radiation Oncology at [address] [address] Radha Casiano MD [facility] [place] [address] 05/06/2024 1:00 PM EST Scheduled View Only Radiation Oncology at [address] [address] 05/07/2024 1:00 PM EST Scheduled View Only Radiation Oncology at [address] [address] 05/08/2024 1:00 PM EST Scheduled View Only Radiation Oncology at [address] [address] 05/11/2024 11:30 AM EST Scheduled View Only Radiation Oncology at [address] [address] 01/13/2025 1:00 PM EST Office Visit Hematology/Oncology at [address] [address] Lee Ann Jay MD [facility] HEMATOLOG[place] [address] Leti Anderson, ELEMENTARY SPANISH TEACHER [facility] DR HEMATOLOGY [place] [address] documented as of this encounter Visit Diagnoses Diagnosis Other ulcerative colitis with complication Abscess, hepatic Abscess of liver documented in this encounter Care Teams Campus Executive Director Relationship Specialty Start Date End Date Julia Chatterjee MD [facility] KINA FELIZ [facility] 1 [place] [address] PCP - General 01/31/10 documented as of this encounter
--- OUTSIDE RECORDS SUMMARY | 2024-04-17 01:23 | XMS_ITS | Encounter Summary ---
Author Organization [facility] [place] [address] Care Team Providers Care Sanipractic Physician Name Role Phone Julia Chatterjee MD Primary Care Provider [phone] Reason for Referral * Consultation (Routine) - Closed Specialty Diagnoses / Procedures Referred By Kimani t Referred To Contact Gastroenterology Diagnoses Encounter for screening colonoscopy Julia Chatterjee MD [address] [place] [address] [facility] Endoscopy [address] [place] [address] Referral ID Status Reason Start Date Expiration Date V isits Requested Visits Authorized [id number] Closed Consult, Test & Treat PCP Updated and/or Approved 01/12/2022 01/12/2023 1 1 Encounter Details Date Type Department Care Team (Latest Contact Info) Description 01/12/2022 Transcribe Orders eDH Incoming Referrals [phone] Julia Chatterjee MD [address] [place] [address] Encounter for screening colonoscopy Social [...] EST Scheduled View Only Radiation Oncology at [address] [address] 04/20/2024 12:45 PM EST Scheduled View Only Radiation Oncology at [address] [address] 04/21/2024 10:45 AM EST Scheduled View Only Radiation Oncology at [address] [address] 04/21/2024 11:00 AM EST Office Visit Radiation Oncology at [address] [address] [facility] [place] [place] [address] 04/22/2024 3:00 PM EST Scheduled View Only Radiation Oncology at [address] [address] 04/23/2024 3:00 PM EST Scheduled View Only Radiation Oncology at [address] [address] 04/24/2024 3:00 PM EST Scheduled View Only Radiation Oncology at [address] [address] 04/27/2024 11:15 AM EST Scheduled View Only Radiation Oncology at [address] [address] 04/28/2024 11:30 AM EST Scheduled View Only Radiation Oncology at [address] [address] 04/28/2024 12:00 PM EST Office Visit Radiation Oncology at [address] [address] [facility] [place] [address] 04/28/2024 2:00 PM EST Office Visit Cardiology at [address] [place] [address] [facility] [place] [address] 04/29/2024 11:15 AM EST Scheduled View Only Radiation Oncology at [address] [address] 04/30/2024 11:30 AM EST Scheduled View Only Radiation Oncology at [address] [address] 05/01/2024 11:15 AM EST Scheduled View Only Radiation Oncology at [address] [address] 05/04/2024 10:45 AM EST Scheduled View Only Radiation Oncology at [address] [address] 05/05/2024 1:00 PM EST Scheduled View Only Radiation Oncology at [address] [address] 05/05/2024 1:15 PM EST Office Visit Radiation Oncology at [address] [address] [facility] [place] [address] 05/06/2024 1:00 PM EST Scheduled View Only Radiation Oncology at [address] [address] 05/07/2024 1:00 PM EST Scheduled View Only Radiation Oncology at [address] [address] 05/08/2024 1:00 PM EST Scheduled View Only Radiation Oncology at [address] [address] 05/11/2024 11:30 AM EST Scheduled View Only Radiation Oncology at [address] [address] 01/13/2025 1:00 PM EST Office Visit Hematology/Oncology at [address] [address] [address] [facility] DR [place] [address] [facility] [place] [address] Scheduled Referrals Name Type Priority Associated Diagnoses Order Schedule Referral to Gastroenterology Outpatient Referral Routine Encounter for screening colonoscopy Ordered: 01/12/2022 documented as of this encounter Visit Diagnoses Diagnosis Encounter for screening colonoscopy Special screening for malignant neoplasms, colon documented in this encounter Care Teams Sanipractic Physician Relationship Specialty Start Date End Date Julia Chatterjee MD [facility] KINA [address] [place] [address] PCP - General 01/31/10 documented as of this encounter
--- OUTSIDE RECORDS SUMMARY | 2024-04-17 01:23 | XMS_ITS | Encounter Summary ---
Author Organization [facility] [place] [address] Care Team Providers Care Notched Blade Loader Name Role Phone Julia Chatterjee MD Primary Care Provider [phone] Encounter Details Date Type Department Care Team (Late st Contact Info) Description 08/03/2021 Telephone Hematology/Oncology at [address] [address] Blaire Alarcon RN Social History [...] why. Can we call her back at [phone]. Thanks Valentina~ documented in this encounter Plan of Treatment Upcoming Encounters Date Type Department Care Team (Late st Contact Info) Description 04/17/2024 2:30 PM EST Scheduled View Only Radiation Oncology at [address] [address] 04/20/2024 12:45 PM EST Scheduled View Only Radiation Oncology at [address] [address] 04/21/2024 10:45 AM EST Scheduled View Only Radiation Oncology at [address] [address] 04/21/2024 11:00 AM EST Office Visit Radiation Oncology at [address] [address] Radha Casiano MD [facility] [place] [address] 04/22/2024 3:00 PM EST Scheduled View Only Radiation Oncology at [address] [address] 04/23/2024 3:00 PM EST Scheduled View Only Radiation Oncology at [address] [address] 04/24/2024 3:00 PM EST Scheduled View Only Radiation Oncology at [address] [address] 04/27/2024 11:15 AM EST Scheduled View Only Radiation Oncology at [address] [address] 04/28/2024 11:30 AM EST Scheduled View Only Radiation Oncology at [address] [address] 04/28/2024 12:00 PM EST Office Visit Radiation Oncology at [address] [address] Radha Casiano MD [facility] [place] [address] 04/28/2024 2:00 PM EST Office Visit Cardiology at [address] [place] [address] Letty Montejo APRN [facility] [place] [address] 04/29/2024 11:15 AM EST Scheduled View Only Radiation Oncology at [address] [address] 04/30/2024 11:30 AM EST Scheduled View Only Radiation Oncology at [address] [address] 05/01/2024 11:15 AM EST Scheduled View Only Radiation Oncology at [address] [address] 05/04/2024 10:45 AM EST Scheduled View Only Radiation Oncology at [address] [address] 05/05/2024 1:00 PM EST Scheduled View Only Radiation Oncology at [address] [address] 05/05/2024 1:15 PM EST Office Visit Radiation Oncology at [address] [address] Radha Casiano MD [facility] [place] [address] 05/06/2024 1:00 PM EST Scheduled View Only Radiation Oncology at [address] [address] 05/07/2024 1:00 PM EST Scheduled View Only Radiation Oncology at [address] [address] 05/08/2024 1:00 PM EST Scheduled View Only Radiation Oncology at [address] [address] 05/11/2024 11:30 AM EST Scheduled View Only Radiation Oncology at [address] [address] 01/13/2025 1:00 PM EST Office Visit Hematology/Oncology at [address] [address] Lee Ann Jay MD [facility] DR HEMATOLOGY [place] [address] Leti Anderson APRN [facility] HEMATOLOGY [place] [address] documented as of this encounter Visit Diagnoses Not on filedocumented in this encounter Care Teams Notched Blade Loader Relationship Specialty Start Date End Date Julia Chatterjee MD [facility] KINA [address]OR[address] [place] [address] PCP - General 01/31/10 documented as of this encounter
--- OUTSIDE RECORDS SUMMARY | 2024-04-17 01:23 | XMS_ITS | Encounter Summary ---
[place] [address] Care Team Providers Care Communications Field Technician Name Role Phone Julia Chatterjee MD Primary Care Provider [phone] Encounter Details Date Type Department Care Team (Late st Contact Info) Description 10/12/2020 Telephone [place] [phone] Tahmina Chacko Social History Tobacco Use Types [...] Scheduled View Only Radiation Oncology at [address] [address] 04/20/2024 12:45 PM EST Scheduled View Only Radiation Oncology at [address] [address] 04/21/2024 10:45 AM EST Scheduled View Only Radiation Oncology at [address] [address] 04/21/2024 11:00 AM EST Office Visit Radiation Oncology at [address] [address] Radha Casiano MD [facility] [place] [address] 04/22/2024 3:00 PM EST Scheduled View Only Radiation Oncology at [address] [address] 04/23/2024 3:00 PM EST Scheduled View Only Radiation Oncology at [address] [address] 04/24/2024 3:00 PM EST Scheduled View Only Radiation Oncology at [address] [address] 04/27/2024 11:15 AM EST Scheduled View Only Radiation Oncology at [address] [address] 04/28/2024 11:30 AM EST Scheduled View Only Radiation Oncology at [address] [address] 04/28/2024 12:00 PM EST Office Visit Radiation Oncology at [address] [address] Radha Casiano MD [facility] [place] [address] 04/28/2024 2:00 PM EST Office Visit Cardiology at [address] [place] [address] Letty Montejo, KITCHEN OPERATOR [facility] [place] [address] 04/29/2024 11:15 AM EST Scheduled View Only Radiation Oncology at [address] [address] 04/30/2024 11:30 AM EST Scheduled View Only Radiation Oncology at [address] [address] 05/01/2024 11:15 AM EST Scheduled View Only Radiation Oncology at [address] [address] 05/04/2024 10:45 AM EST Scheduled View Only Radiation Oncology at [address] [address] 05/05/2024 1:00 PM EST Scheduled View Only Radiation Oncology at [address] [address] 05/05/2024 1:15 PM EST Office Visit Radiation Oncology at [address] [address] Radha Casiano MD [facility] [place] [address] 05/06/2024 1:00 PM EST Scheduled View Only Radiation Oncology at [address] [address] 05/07/2024 1:00 PM EST Scheduled View Only Radiation Oncology at [address] [address] 05/08/2024 1:00 PM EST Scheduled View Only Radiation Oncology at [address] [address] 05/11/2024 11:30 AM EST Scheduled View Only Radiation Oncology at [address] [address] 01/13/2025 1:00 PM EST Office Visit Hematology/Oncology at [address] [address] Lee Ann Jay MD [facility] DR [place] [address] Leti Anderson APRN [facility] [place] [address] documented as of this encounter Visit Diagnoses Not on filedocumented in this encounter Care Teams Communications Field Technician Relationship Specialty Start Date End Date Julia Chatterjee MD [facility] KINA FELIZ [address] [place] [address] PCP - General 01/31/10 documented as of this encounter
--- OUTSIDE RECORDS SUMMARY | 2024-04-17 01:23 | XMS_ITS | Encounter Summary ---
Author Organization [facility] Address [facility] [place] [address] Care Team Providers Care Inserting Machine Operator Name Role Phone Julia Chatterjee MD Primary Care Provider [phone] Encounter Details Date Type Department Care Team (Late st Contact Info) Description 08/01/2021 Orders Only Hematology [place] [address] Lee Ann Jay MD [facility] DR HEMATOLOGY [place] [address] Social History Tobacco Use Types Packs/Day Years [...] Scheduled View Only Radiation Oncology at [address] [address] 04/20/2024 12:45 PM EST Scheduled View Only Radiation Oncology at [address] [address] 04/21/2024 10:45 AM EST Scheduled View Only Radiation Oncology at [address] [address] 04/21/2024 11:00 AM EST Office Visit Radiation Oncology at [address] [address] Radha Casiano MD [facility] [place] [address] 04/22/2024 3:00 PM EST Scheduled View Only Radiation Oncology at [address] [address] 04/23/2024 3:00 PM EST Scheduled View Only Radiation Oncology at [address] [address] 04/24/2024 3:00 PM EST Scheduled View Only Radiation Oncology at [address] [address] 04/27/2024 11:15 AM EST Scheduled View Only Radiation Oncology at [address] [address] 04/28/2024 11:30 AM EST Scheduled View Only Radiation Oncology at [address] [address] 04/28/2024 12:00 PM EST Office Visit Radiation Oncology at [address] [address] Radha Casiano MD [facility] [place] [address] 04/28/2024 2:00 PM EST Office Visit Cardiology at [address] [place] [address] Letty Montejo, JAYLEN [facility] [place] [address] 04/29/2024 11:15 AM EST Scheduled View Only Radiation Oncology at [address] [address] 04/30/2024 11:30 AM EST Scheduled View Only Radiation Oncology at [address] [address] 05/01/2024 11:15 AM EST Scheduled View Only Radiation Oncology at [address] [address] 05/04/2024 10:45 AM EST Scheduled View Only Radiation Oncology at [address] [address] 05/05/2024 1:00 PM EST Scheduled View Only Radiation Oncology at [address] [address] 05/05/2024 1:15 PM EST Office Visit Radiation Oncology at [address] [address] Radha Casiano MD [facility] [place] [address] 05/06/2024 1:00 PM EST Scheduled View Only Radiation Oncology at [address] [address] 05/07/2024 1:00 PM EST Scheduled View Only Radiation Oncology at [address] [address] 05/08/2024 1:00 PM EST Scheduled View Only Radiation Oncology at [address] [address] 05/11/2024 11:30 AM EST Scheduled View Only Radiation Oncology at [address] [address] 01/13/2025 1:00 PM EST Office Visit Hematology/Oncology at [address] [address] Lee Ann Jay MD [facility] HEMATOLOGY [place] [address] Leti Anderson APRN [facility] HEMATOLOGY [place] [address] documented as of this encounter Visit Diagnoses Not on filedocumented in this encounter Care Teams Inserting Machine Operator Relationship Specialty Start Date End Date Julia Chatterjee MD [facility] KINA FELIZ [facility] 1 [place] [address] PCP - General 01/31/10 documented as of this encounter
--- OUTSIDE RECORDS SUMMARY | 2024-04-17 01:23 | XMS_ITS | Encounter Summary ---
Author Organization [facility], Later [facility] Address [facility] [place] [address] Care Team Providers Care Skin Lifter Bacon Name Role Phone Julia Chatterjee MD Primary Care Provider [phone] Reason for Visit * Reason Onset Date Comments Other 12/10/2019 Encounter Details Date Type Department Care Team (Late st Contact Info) Description 12/10/2019 Telephone Hematology/Oncology at [address] [address] Mera Cintron RN Other Social [...] ANC was 0.2. She is going to [place] for a week with children and grandchildren staying at [facility] and then to [place] for a week at son's home. She [...] Scheduled View Only Radiation Oncology at [address] [address] 04/20/2024 12:45 PM EST Scheduled View Only Radiation Oncology at [address] [address] 04/21/2024 10:45 AM EST Scheduled View Only Radiation Oncology at [address] [address] 04/21/2024 11:00 AM EST Office Visit Radiation Oncology at [address] [address] Radha Casiano MD [facility] [place] [address] 04/22/2024 3:00 PM EST Scheduled View Only Radiation Oncology at [address] [address] 04/23/2024 3:00 PM EST Scheduled View Only Radiation Oncology at [address] [address] 04/24/2024 3:00 PM EST Scheduled View Only Radiation Oncology at [address] [address] 04/27/2024 11:15 AM EST Scheduled View Only Radiation Oncology at [address] [address] 04/28/2024 11:30 AM EST Scheduled View Only Radiation Oncology at [address] [address] 04/28/2024 12:00 PM EST Office Visit Radiation Oncology at [address] [address] Radha Casiano MD [facility] [place] [address] 04/28/2024 2:00 PM EST Office Visit Cardiology at [address] [place] [address] Letty Montejo APRN [facility] [place] [address] 04/29/2024 11:15 AM EST Scheduled View Only Radiation Oncology at [address] [address] 04/30/2024 11:30 AM EST Scheduled View Only Radiation Oncology at [address] [address] 05/01/2024 11:15 AM EST Scheduled View Only Radiation Oncology at [address] [address] 05/04/2024 10:45 AM EST Scheduled View Only Radiation Oncology at [address] [address] 05/05/2024 1:00 PM EST Scheduled View Only Radiation Oncology at [address] [address] 05/05/2024 1:15 PM EST Office Visit Radiation Oncology at [address] [address] Radha Casiano MD [facility] [place] [address] 05/06/2024 1:00 PM EST Scheduled View Only Radiation Oncology at [address] [address] 05/07/2024 1:00 PM EST Scheduled View Only Radiation Oncology at [address] [address] 05/08/2024 1:00 PM EST Scheduled View Only Radiation Oncology at [address] [address] 05/11/2024 11:30 AM EST Scheduled View Only Radiation Oncology at [address] [address] 01/13/2025 1:00 PM EST Office Visit Hematology/Oncology at [address] [address] Lee Ann Jay MD [facility] [place] [address] Leti Anderson APRN [facility] [place] [address] documented as of this encounter Visit Diagnoses Not on filedocumented in this encounter Care Teams Skin Lifter Bacon Relationship Specialty Start Date End Date Julia Chatterjee MD [facility] [address] [place] [address] PCP - General 01/31/10 documented as of this encounter
--- OUTSIDE RECORDS SUMMARY | 2024-04-17 01:23 | XMS_ITS | Encounter Summary ---
Author Organization [facility] Address [facility] [place] [address] Care Team Providers Care Linotyper Name Role Phone Julia Chatterjee MD Primary Care Provider [phone] Reason for Visit * Reason Comments Other neupogen Encounter Details Date Type Department Care Team (Late st Contact Info) Description 08/01/2021 4:00 PM EDT Infusion Hematology Oncology at [address] [address] Large granular lymphocytic leukemia Social [...] na REASON FOR VISIT: neupogen SUBJECTIVE Leti Shlomo Parry offers no complaints. OBJECTIVE neupogen 480 [...] Scheduled View Only Radiation Oncology at [address] [address] 04/20/2024 12:45 PM EST Scheduled View Only Radiation Oncology at [address] [address] 04/21/2024 10:45 AM EST Scheduled View Only Radiation Oncology at [address] [address] 04/21/2024 11:00 AM EST Office Visit Radiation Oncology at [address] [address] Radha Casiano MD [facility] [place] [address] 04/22/2024 3:00 PM EST Scheduled View Only Radiation Oncology at [address] [address] 04/23/2024 3:00 PM EST Scheduled View Only Radiation Oncology at [address] [address] 04/24/2024 3:00 PM EST Scheduled View Only Radiation Oncology at [address] [address] 04/27/2024 11:15 AM EST Scheduled View Only Radiation Oncology at [address] [address] 04/28/2024 11:30 AM EST Scheduled View Only Radiation Oncology at [address] [address] 04/28/2024 12:00 PM EST Office Visit Radiation Oncology at [address] [address] Radha Casiano MD [facility] [place] [address] 04/28/2024 2:00 PM EST Office Visit Cardiology at [address] [place] [address] Letty Montejo, JAYLEN [facility] DR [place] [address] 04/29/2024 11:15 AM EST Scheduled View Only Radiation Oncology at [address] [address] 04/30/2024 11:30 AM EST Scheduled View Only Radiation Oncology at [address] [address] 05/01/2024 11:15 AM EST Scheduled View Only Radiation Oncology at [address] [address] 05/04/2024 10:45 AM EST Scheduled View Only Radiation Oncology at [address] [address] 05/05/2024 1:00 PM EST Scheduled View Only Radiation Oncology at [address] [address] 05/05/2024 1:15 PM EST Office Visit Radiation Oncology at [address] [address] Radha Casiano MD [facility] [place] [address] 05/06/2024 1:00 PM EST Scheduled View Only Radiation Oncology at [address] [address] 05/07/2024 1:00 PM EST Scheduled View Only Radiation Oncology at [address] [address] 05/08/2024 1:00 PM EST Scheduled View Only Radiation Oncology at [address] [address] 05/11/2024 11:30 AM EST Scheduled View Only Radiation Oncology at [address] [address] 01/13/2025 1:00 PM EST Office Visit Hematology/Oncology at [address] [address] Lee Ann Jay MD [facility] DR H[place] [address] Leti Anderson APRN [facility] [place] [address] documented as of this encounter Visit Diagnoses [...] Arm documented in this encounter Care Teams Linotyper Relationship Specialty Start Date End Date Julia Chatterjee MD [address] [place] [address] PCP - General 01/31/10 documented as of this encounter
--- OUTSIDE RECORDS SUMMARY | 2024-04-17 01:23 | XMS_ITS | Encounter Summary ---
Author Organization [facility] [place] [address] Care Team Providers Care Licensed Life And Health Agent Name Role Phone Julia Chatterjee MD Primary Care Provider [phone] Reason for Visit * Reason Onset Date Comments Labs Only 04/21/2020 critical ANC Encounter Details Date Type Department Care Team (Late st Contact Info) Description 04/21/2020 Telephone Hematology/Oncology at [address] [address] Mera Cintron RN Labs Only [...] Scheduled View Only Radiation Oncology at [address] [address] 04/20/2024 12:45 PM EST Scheduled View Only Radiation Oncology at [address] [address] 04/21/2024 10:45 AM EST Scheduled View Only Radiation Oncology at [address] [address] 04/21/2024 11:00 AM EST Office Visit Radiation Oncology at [address] [address] Radha Casiano MD [facility] [place] [address] 04/22/2024 3:00 PM EST Scheduled View Only Radiation Oncology at [address] [address] 04/23/2024 3:00 PM EST Scheduled View Only Radiation Oncology at [address] [address] 04/24/2024 3:00 PM EST Scheduled View Only Radiation Oncology at [address] [address] 04/27/2024 11:15 AM EST Scheduled View Only Radiation Oncology at [address] [address] 04/28/2024 11:30 AM EST Scheduled View Only Radiation Oncology at [address] [address] 04/28/2024 12:00 PM EST Office Visit Radiation Oncology at [address] [address] Radha Casiano MD [facility] [place] [address] 04/28/2024 2:00 PM EST Office Visit Cardiology at [address] [place] [address] Letty Montejo APRN [facility] [place] [address] 04/29/2024 11:15 AM EST Scheduled View Only Radiation Oncology at [address] [address] 04/30/2024 11:30 AM EST Scheduled View Only Radiation Oncology at [address] [address] 05/01/2024 11:15 AM EST Scheduled View Only Radiation Oncology at [address] [address] 05/04/2024 10:45 AM EST Scheduled View Only Radiation Oncology at [address] [address] 05/05/2024 1:00 PM EST Scheduled View Only Radiation Oncology at [address] [address] 05/05/2024 1:15 PM EST Office Visit Radiation Oncology at [address] [address] Radha Casiano MD [facility] [place] [address] 05/06/2024 1:00 PM EST Scheduled View Only Radiation Oncology at [address] [address] 05/07/2024 1:00 PM EST Scheduled View Only Radiation Oncology at [address] [address] 05/08/2024 1:00 PM EST Scheduled View Only Radiation Oncology at [address] [address] 05/11/2024 11:30 AM EST Scheduled View Only Radiation Oncology at [address] [address] 01/13/2025 1:00 PM EST Office Visit Hematology/Oncology at [address] [address] Lee Ann Jay MD [facility] H[place] [address] An Anderson APRN [facility] [place] [address] documented as of this encounter Procedures Procedure Name Priority Date/Time Associated Diagnosis Comments CBC (WITH DIFF) Routine 04/21/2020 documented in this encounter Results * CBC (with Diff) (04/21/2020) White Blood Cell 2.21 Hemoglobin 14.0 Hematocrit 43.5 Platelet 171 Neutrophil Absolute (ANC) - Automated 0.15 Blood 04/21/2020 Historical Provider HEMATOLOGY ORDERA BLES documented in this encounter Visit Diagnoses Not on filedocumented in this encounter Care Teams Licensed Life And Health Agent Relationship Specialty Start Date End Date Julia Chatterjee MD [address] [place] [address] PCP - General 01/31/10 documented as of this encounter
--- OUTSIDE RECORDS SUMMARY | 2024-04-17 01:23 | XMS_ITS | Encounter Summary ---
Author Organization [facility] [place] [address] Care Team Providers Care Patient Svcs Mgr Name Role Phone Julia Chatterjee MD Primary Care Provider [phone] Reason for Visit * Reason Onset Date Comments Other 06/19/2021 Antibody testing Encounter Details Date Type Department Care Team (Late st Contact Info) Description 06/19/2021 Telephone Hematology/Oncology at [address] [address] Mera Cintron RN Other (Antibody [...] Scheduled View Only Radiation Oncology at [address] [address] 04/20/2024 12:45 PM EST Scheduled View Only Radiation Oncology at [address] [address] 04/21/2024 10:45 AM EST Scheduled View Only Radiation Oncology at [address] [address] 04/21/2024 11:00 AM EST Office Visit Radiation Oncology at [address] [address] Radha Casiano MD [facility] RADIATION ONCOLOGY [place] [id number] 04/22/2024 3:00 PM EST Scheduled View Only Radiation Oncology at [address] [address] 04/23/2024 3:00 PM EST Scheduled View Only Radiation Oncology at [address] [address] 04/24/2024 3:00 PM EST Scheduled View Only Radiation Oncology at [address] [address] 04/27/2024 11:15 AM EST Scheduled View Only Radiation Oncology at [address] [address] 04/28/2024 11:30 AM EST Scheduled View Only Radiation Oncology at [address] [address] 04/28/2024 12:00 PM EST Office Visit Radiation Oncology at [address] [address] Radha Casiano MD [facility] [place] [address] 04/28/2024 2:00 PM EST Office Visit Cardiology at [address] [place] [address] Letty Montejo, JAYLEN [facility] [place] [address] 04/29/2024 11:15 AM EST Scheduled View Only Radiation Oncology at [address] [address] 04/30/2024 11:30 AM EST Scheduled View Only Radiation Oncology at [address] [address] 05/01/2024 11:15 AM EST Scheduled View Only Radiation Oncology at [address] [address] 05/04/2024 10:45 AM EST Scheduled View Only Radiation Oncology at [address] [address] 05/05/2024 1:00 PM EST Scheduled View Only Radiation Oncology at [address] [address] 05/05/2024 1:15 PM EST Office Visit Radiation Oncology at [address] [address] Radha Casiano MD [facility] [place] [address] 05/06/2024 1:00 PM EST Scheduled View Only Radiation Oncology at [address] [address] 05/07/2024 1:00 PM EST Scheduled View Only Radiation Oncology at [address] [address] 05/08/2024 1:00 PM EST Scheduled View Only Radiation Oncology at [address] [address] 05/11/2024 11:30 AM EST Scheduled View Only Radiation Oncology at [address] [address] 01/13/2025 1:00 PM EST Office Visit Hematology/Oncology at [address] [address] Lee Ann Jay MD [facility] [place] [address] Leti Anderson APRN [facility] [place] [address] documented as of this encounter Visit Diagnoses Not on filedocumented in this encounter Care Teams Patient Svcs Mgr Relationship Specialty Start Date End Date Julia Chatterjee MD [facility] [address] [place] [address] PCP - General 01/31/10 documented as of this encounter
--- OUTSIDE RECORDS SUMMARY | 2024-04-17 01:23 | XMS_ITS | Encounter Summary ---
Author Organization [facility] Address [facility] [place] [address] Care Team Providers Care Hardener Helper Name Role Phone Julia Chatterjee MD Primary Care Provider [phone] Encounter Details Date Type Department Care Team (Latest Contact Info) Description 02/02/2020 10:30 AM EST TH Visit (TeleHealth) [place] [address] Yola Oliveros MD [facility] [place] [address] Other ulcerative colitis with complication Social History [...] help much - Followed with a local mock up builder and used dietary supplements to maintain remission - Did well until August 2019 when she developed abdominal pain, fevers, loose stool. Went to [facility] andd CT showing inflamed colon. Flex sig [...] qhs after colonoscopy in October 2019 - Stearns worse on Canasa - fecal calpro 109 [...] past surgical history that includes Colonoscopy, Biopsy (53392) (07/05/2011); Colonoscopy, Remv Noeln, Snare (01488) (07/05/2011); Bone Marrow Aspiration W/Bx Through Same Incision/Site (G0364) (Right, 01/08/2017); Bone Marrow Bx, Needle/Trocar (15125) (Right, 01/08/2017);CT Guided Aspiration Liver (09/02/2019); Sigmoidoscopy, Diagnostic (88854) (N/A, 09/02/2019); IR Drain Check/Change/Remove (09/28/2019); and Colonoscopy, Biopsy (87189) (N/A, 10/22/2019). Family History: family history is [...] calprotectin drawn within the last week at [facility] was less than 15.6. Assessment/Plan: Ms. Parry [...] the issues outlined above. Marija Oliveros MD Criminal Attorneymachinery dismantler Co-Director, [facility] Section of Gastroenterology and Hepatology [place] [phone] documented in this encounter Plan of Treatment Upcoming Encounters Date Type Department Care Team (Late st Contact Info) Description 04/17/2024 2:30 PM EST Scheduled View Only Radiation Oncology at [address] [address] 04/20/2024 12:45 PM EST Scheduled View Only Radiation Oncology at [address] [address] 04/21/2024 10:45 AM EST Scheduled View Only Radiation Oncology at [address] [address] 04/21/2024 11:00 AM EST Office Visit Radiation Oncology at [address] [address] Radha Casiano MD [facility] [place] [address] 04/22/2024 3:00 PM EST Scheduled View Only Radiation Oncology at [address] [address] 04/23/2024 3:00 PM EST Scheduled View Only Radiation Oncology at [address] [address] 04/24/2024 3:00 PM EST Scheduled View Only Radiation Oncology at [address] [address] 04/27/2024 11:15 AM EST Scheduled View Only Radiation Oncology at [address] [address] 04/28/2024 11:30 AM EST Scheduled View Only Radiation Oncology at [address] [address] 04/28/2024 12:00 PM EST Office Visit Radiation Oncology at [address] [address] Radha Casiano MD [facility] [place] [address] 04/28/2024 2:00 PM EST Office Visit Cardiology at [address] [address] Letty Montejo APRN [facility] [place] [address] 04/29/2024 11:15 AM EST Scheduled View Only Radiation Oncology at [address] [address] 04/30/2024 11:30 AM EST Scheduled View Only Radiation Oncology at [address] [address] 05/01/2024 11:15 AM EST Scheduled View Only Radiation Oncology at [address] [address] 05/04/2024 10:45 AM EST Scheduled View Only Radiation Oncology at [address] [address] 05/05/2024 1:00 PM EST Scheduled View Only Radiation Oncology at [address] [address] 05/05/2024 1:15 PM EST Office Visit Radiation Oncology at [address] [address] Radha Casiano MD [facility] [place] [address] 05/06/2024 1:00 PM EST Scheduled View Only Radiation Oncology at [address] [address] 05/07/2024 1:00 PM EST Scheduled View Only Radiation Oncology at [address] [address] 05/08/2024 1:00 PM EST Scheduled View Only Radiation Oncology at [address] [address] 05/11/2024 11:30 AM EST Scheduled View Only Radiation Oncology at [address] [address] 01/13/2025 1:00 PM EST Office Visit Hematology/Oncology at [address] [address] Lee Ann Jay MD [facility] DR HEMATOLOGY [place] [address] Leti Anderson, JAYLEN [facility] DR HEMATOLOGY [place] [address] documented as of this encounter Visit Diagnoses Diagnosis Other ulcerative colitis with complication documented in this encounter Care Teams Hardener Helper Relationship Specialty Start Date End Date Julia Chatterjee MD [facility] [address] [place] [address] PCP - General 01/31/10 documented as of this encounter
--- OUTSIDE RECORDS SUMMARY | 2024-04-17 01:23 | XMS_ITS | Encounter Summary ---
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 Went to [facility] andd CT showing inflamed colon. Flex [...] qhs after colonoscopy in October 2019 - [place] worse on Canasa - fecal calpro 109 [...] ) are being pursued at the [facility]. Should ??cytopenias persist , it may be [...] better now with the help of her auto club travel counselor. Her sx are GREAT on the naturopathic meds with minimal GI symptoms Feels well, good energy . No infections. She got a Peloton bike a few months ago. Loves the exercise and classes. Also does pilates and private classes. She is caring for her parents (92 and 88yo) Patrick Lazo [place] VW [facility]. Her DINO was positive in Oct 2016. [...] LIVER 09/02/2019 CT Guided Aspiration Liver 09/02/2019 [facility] RAD CAT SCAN ??? IR DRAIN CHECK/CHANGE/REMOVE 09/28/2019 IR Drain Check/Change/Remove 09/28/2019 Cliff Langston MD [facility] INTERVENTIONL RAD ??? PRO BONE MARROW ASPIRATION W/BX THROUGH SAME INCISION/SITE Right 01/08/2017 ([facility]) BONE MARROW ASP PERFORMED W/BX THRU BX INCISION (WRVU 0.16) performed by Lee Ann Jay MD at [facility] OSC ??? PRO BONE MARROW BX, NEEDLE/TROCAR Right 01/08/2017 ([facility]) BONE MARROW,BIOPSY (WRVU 1.37) performed by Lee Ann Jay MD at [facility] OSC ??? PRO COLONOSCOPY, BIOPSY 07/05/2011 COLONOSCOPY FLEXIBLE, WITH BX performed by AYAZ CASTRO at [facility] ENDOSCOPY ??? PRO COLONOSCOPY, BIOPSY N/A 10/22/2019 COLONOSCOPY FLEXIBLE, WITH BX (WRVU 3.66) performed by Yola Oliveros MD at [facility] ENDOSCOPY ??? PRO COLONOSCOPY, REMV LESN, SNARE 07/05/2011 COLONOSCOPY, POLYPECTOMY, REMOVAL LESION BY SNARE performed by AYAZ CASTRO at [facility] ENDOSCOPY ??? PRO SIGMOIDOSCOPY, DIAGNOSTIC N/A 09/02/2019 FLEXIBLE SIGMOIDOSCOPY performed by Ayaz Castro MD at [facility] ENDOSCOPY Medications; Current Outpatient Medications [...] low white counts. Social History: Lives in [facility]. . 1 son 38 years old- healthy. 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 Should ??cytopenias persist , it [...] receptor gene rearrangement detected. Radiology: US at [facility] 11/2016. Liver 14.5 cm. Spleen 8cm. Assessment and Recommendations: 70 y.o. Healthy female who has been referred to us for leukopenia. She has had leukopenia since 2006 with normal hemoglobin and platelet. She has no symptoms- no increased frequency of infections. 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 She has been working with a auto club travel counselor who started her on selenium and zinc and about a dozen other supplements. Counts are a bit higher so we will see. Roping Machine Tender has been helping her with bowel issues. These are better w/ diet adjustments. Diet changes have helped her UC and GI symptoms. Of note, she is on multiple naturopathic medications through her child welfare manager - mostly to help w/ herGI tract. [...] [address] Han Castillo at [facility], an LGL specialist, he did [...] This note was written or modified using Immedia voice recognition software. The final note was screened for mistakes. Please excuse any remaining errors. documented in this encounter Plan of Treatment Upcoming Encounters Date Type Department Care Team (Late st Contact Info) Description 04/17/2024 2:30 PM EST Scheduled View Only Radiation Oncology at [address] [phone] 04/20/2024 12:45 PM EST Scheduled View Only Radiation Oncology at [address] [address] 04/21/2024 10:45 AM EST Scheduled View Only Radiation Oncology at [address] [address] 04/21/2024 11:00 AM EST Office Visit Radiation Oncology at [address] [address] Radha Casiano MD [facility] [place] [address] 04/22/2024 3:00 PM EST Scheduled View Only Radiation Oncology at [address] [address] 04/23/2024 3:00 PM EST Scheduled View Only Radiation Oncology at [address] [address] 04/24/2024 3:00 PM EST Scheduled View Only Radiation Oncology at [address] [address] 04/27/2024 11:15 AM EST Scheduled View Only Radiation Oncology at [address] [address] 04/28/2024 11:30 AM EST Scheduled View Only Radiation Oncology at [address] [address] 04/28/2024 12:00 PM EST Office Visit Radiation Oncology at [address] [address] Radha Casiano MD [facility] [place] [address] 04/28/2024 2:00 PM EST Office Visit Cardiology at [address] [place] [address] Letty Montejo APRN [facility] [place] [address] 04/29/2024 11:15 AM EST Scheduled View Only Radiation Oncology at [address] [address] 04/30/2024 11:30 AM EST Scheduled View Only Radiation Oncology at [address] [address] 05/01/2024 11:15 AM EST Scheduled View Only Radiation Oncology at [address] [address] 05/04/2024 10:45 AM EST Scheduled View Only Radiation Oncology at [address] [address] 05/05/2024 1:00 PM EST Scheduled View Only Radiation Oncology at [address] [address] 05/05/2024 1:15 PM EST Office Visit Radiation Oncology at [address] [address] Radha Casiano MD [facility] [place] [address] 05/06/2024 1:00 PM EST Scheduled View Only Radiation Oncology at [address] [address] 05/07/2024 1:00 PM EST Scheduled View Only Radiation Oncology at [address] [address] 05/08/2024 1:00 PM EST Scheduled View Only Radiation Oncology at [address] [address] 05/11/2024 11:30 AM EST Scheduled View Only Radiation Oncology at [address] [phone] 01/13/2025 1:00 PM EST Office Visit Hematology/Oncology at [address] [phone] Lee Ann Jay MD [facility] [place] [address] Leti Anderson APRN [facility] [place] [address] documented as of this encounter Procedures Procedure Name Priority Date/Time Associated Diagnosis Comments CBC (WITH DIFF) Routine 04/11/2021 documented in this encounter Results * CBC (with Diff) (04/11/2021) White Blood Cell 2.02 Hemoglobin 13.1 Hematocrit 41.6 Platelet 185 Neutrophil Absolute (ANC) - Automated 0.4 Creatinine 0.8 Blood 04/11/2021 Historical Provider HEMATOLOGY ORDERA BLES documented in this encounter Visit Diagnoses Diagnosis 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, without mention of having achieved remission documented in this encounter Care Teams Lifestyle Coordinator Relationship Specialty Start Date End Date Julia Chatterjee MD Sushant DORADO [address] [place] [address] PCP - General 01/31/10 documented as of this encounter
--- OUTSIDE RECORDS SUMMARY | 2024-04-17 01:23 | XMS_ITS | Encounter Summary ---
Author Organization [facility] Address [facility] [place] [address] Care Team Providers Care Tray Setter Name Role Phone Julia Chatterjee MD Primary Care Provider [phone] Encounter Details Date Type Department Care Team (Latest Contact Info) Description 06/07/2020 9:30 AM EDT TH Visit (TeleHealth) [place] [address] Yola Jenkins MD [facility] [place] [address] Other ulcerative colitis with complication Social History [...] help much - Followed with a local school bus technician and used dietary supplements to maintain remission - Did well until August 2019 when she developed abdominal pain, fevers, loose stool. Went to [facility] andd CT showing inflamed colon. [...] qhs after colonoscopy in October 2019 - [place] worse on Canasa - fecal calpro 109 [...] past surgical history that includes Colonoscopy, Biopsy (08938) (07/05/2011); Colonoscopy, Remv Lesn, Snare (22659) (07/05/2011); Bone Marrow Aspiration W/Bx Through Same Incision/Site (G0364) (Right, 01/08/2017); Bone Marrow Bx, Needle/Trocar (22121) (Right, 01/08/2017);CT Guided Aspiration Liver (09/02/2019); Sigmoidoscopy, Diagnostic (12250) (N/A, 09/02/2019); IR Drain Check/Change/Remove (09/28/2019); and Colonoscopy, Biopsy ([id number]) (N/A, 10/22/2019). Family History: family history is [...] preparing for this visit, counseling the patient [id number] on the issues outlined above, and documenting an implementing the plan. Ms. Parry was located in [place] at the time of this visit. Marija Jenkins MD Benefit Authorizermanagement professionals Co-Director, [facility] Section of [place] [address] documented in this encounter Miscellaneous Notes * Addendum Note - Yola Jenkins MD - 06/07/2020 9:30 AM EDTAddended by: Yola JENKINS on: 06/07/2020 10:25 AM Modules accepted: Orders documented in this encounter Plan of Treatment Upcoming Encounters Date Type Department Care Team (Late st Contact Info) Description 04/17/2024 2:30 PM EST Scheduled View Only Radiation Oncology at [address] [phone] 04/20/2024 12:45 PM EST Scheduled View Only Radiation Oncology at [address] [phone] 04/21/2024 10:45 AM EST Scheduled View Only Radiation Oncology at [address] [phone] 04/21/2024 11:00 AM EST Office Visit Radiation Oncology at [address] [address] Radha Casiano MD [facility] [place] [address] 04/22/2024 3:00 PM EST Scheduled View Only Radiation Oncology at [address] [address] 04/23/2024 3:00 PM EST Scheduled View Only Radiation Oncology at [address] [address] 04/24/2024 3:00 PM EST Scheduled View Only Radiation Oncology at [address] [address] 04/27/2024 11:15 AM EST Scheduled View Only Radiation Oncology at [address] [address] 04/28/2024 11:30 AM EST Scheduled View Only Radiation Oncology at [address] [phone] 04/28/2024 12:00 PM EST Office Visit Radiation Oncology at [address] [address] Radha Casiano MD [facility] [place] [address] 04/28/2024 2:00 PM EST Office Visit Cardiology at [address] [place] [address] Letty Montejo APRN [facility] [place] [address] 04/29/2024 11:15 AM EST Scheduled View Only Radiation Oncology at [address] [address] 04/30/2024 11:30 AM EST Scheduled View Only Radiation Oncology at [address] [address] 05/01/2024 11:15 AM EST Scheduled View Only Radiation Oncology at [address] [address] 05/04/2024 10:45 AM EST Scheduled View Only Radiation Oncology at [address] [address] 05/05/2024 1:00 PM EST Scheduled View Only Radiation Oncology at [address] [address] 05/05/2024 1:15 PM EST Office Visit Radiation Oncology at [address] [address] Radha Casiano MD [facility] [place] [address] 05/06/2024 1:00 PM EST Scheduled View Only Radiation Oncology at [address] [address] 05/07/2024 1:00 PM EST Scheduled View Only Radiation Oncology at [address] [address] 05/08/2024 1:00 PM EST Scheduled View Only Radiation Oncology at [address] [address] 05/11/2024 11:30 AM EST Scheduled View Only Radiation Oncology at [address] [address] 01/13/2025 1:00 PM EST Office Visit Hematology/Oncology at [address] [address] Lee Ann Jay MD [facility] DR HEMATOLOGY [place] [address] Leti Anderson APRN [facility] HEMATOLOGY [place] [address] documented as of this encounter Visit Diagnoses Diagnosis Other ulcerative colitis with complication documented in this encounter Care Teams Tray Setter Relationship Specialty Start Date End Date Julia Chatterjee MD [facility] KINA DORADO [address] [place] [address] PCP - General 01/31/10 documented as of this encounter
--- OUTSIDE RECORDS SUMMARY | 2024-04-17 01:23 | XMS_ITS | Encounter Summary ---
[place] [address] Care Team Providers Care Auto Repair Technician Name Role Phone Julia Chatterjee MD Primary Care Provider [phone] Reason for Visit * Reason Onset Date Comments Reminder Appointment 02/02/2020 Encounter Details Date Type Department Care Team (Late Contact Info) Description 02/02/2020 Telephone [place] [phone] Christy Lopez CCMA Reminder Appointment Social History [...] Scheduled View Only Radiation Oncology at [address] [address] 04/20/2024 12:45 PM EST Scheduled View Only Radiation Oncology at [address] [address] 04/21/2024 10:45 AM EST Scheduled View Only Radiation Oncology at [address] [address] 04/21/2024 11:00 AM EST Office Visit Radiation Oncology at [address] [address] Radha Casiano MD [facility] [place] [address] 04/22/2024 3:00 PM EST Scheduled View Only Radiation Oncology at [address] [address] 04/23/2024 3:00 PM EST Scheduled View Only Radiation Oncology at [address] [address] 04/24/2024 3:00 PM EST Scheduled View Only Radiation Oncology at [address] [address] 04/27/2024 11:15 AM EST Scheduled View Only Radiation Oncology at [address] [address] 04/28/2024 11:30 AM EST Scheduled View Only Radiation Oncology at [address] [phone] 04/28/2024 12:00 PM EST Office Visit Radiation Oncology at [address] [address] Radha Casiano MD [facility] RADIATION [place] [address] 04/28/2024 2:00 PM EST Office Visit Cardiology at [address] [place] [address] Letty Montejo APRN [facility] [place] [address] 04/29/2024 11:15 AM EST Scheduled View Only Radiation Oncology at [address] [address] 04/30/2024 11:30 AM EST Scheduled View Only Radiation Oncology at [address] [address] 05/01/2024 11:15 AM EST Scheduled View Only Radiation Oncology at [address] [address] 05/04/2024 10:45 AM EST Scheduled View Only Radiation Oncology at [address] [address] 05/05/2024 1:00 PM EST Scheduled View Only Radiation Oncology at [address] [address] 05/05/2024 1:15 PM EST Office Visit Radiation Oncology at [address] [address] Radha Casiano MD [facility] [place] [address] 05/06/2024 1:00 PM EST Scheduled View Only Radiation Oncology at [address] [address] 05/07/2024 1:00 PM EST Scheduled View Only Radiation Oncology at [address] [address] 05/08/2024 1:00 PM EST Scheduled View Only Radiation Oncology at [address] [address] 05/11/2024 11:30 AM EST Scheduled View Only Radiation Oncology at [address] [address] 01/13/2025 1:00 PM EST Office Visit Hematology/Oncology at [address] [address] Lee Ann Jay MD [facility] DR HEMATOLOGY [place] [address] Leti Anderson APRN [facility] HEMATOLOGY [place] [address] documented as of this encounter Visit Diagnoses Not on filedocumented in this encounter Care Teams Auto Repair Technician Relationship Specialty Start Date End Date Julia Chatterjee MD [facility] KINA FELIZ [address] [address] PCP - General 01/31/10 documented as of this encounter
--- OUTSIDE RECORDS SUMMARY | 2024-04-17 01:23 | XMS_ITS | Encounter Summary ---
Author Organization [facility] [place] [address] Care Team Providers Care Websphere Developer Name Role Phone Julia Chatterjee MD Primary Care Provider [phone] Encounter Details Date Type Department Care Team (Late st Contact Info) Description 05/09/2020 Orders [place] [address] Yola Oliveros MD [facility] DR [place] [address] Other ulcerative colitis with complication; Leukopenia, unspecified [...] EST Scheduled View Only Radiation Oncology at [address] [address] 04/20/2024 12:45 PM EST Scheduled View Only Radiation Oncology at [address] [address] 04/21/2024 10:45 AM EST Scheduled View Only Radiation Oncology at [address] [address] 04/21/2024 11:00 AM EST Office Visit Radiation Oncology at [address] [address] Radha Casiano MD [facility] RADI[place] [address] 04/22/2024 3:00 PM EST Scheduled View Only Radiation Oncology at [address] [address] 04/23/2024 3:00 PM EST Scheduled View Only Radiation Oncology at [address] [address] 04/24/2024 3:00 PM EST Scheduled View Only Radiation Oncology at [address] [address] 04/27/2024 11:15 AM EST Scheduled View Only Radiation Oncology at [address] [address] 04/28/2024 11:30 AM EST Scheduled View Only Radiation Oncology at [address] [address] 04/28/2024 12:00 PM EST Office Visit Radiation Oncology at [address] [address] Radha Casiano MD [facility] RAD[place] [address] 04/28/2024 2:00 PM EST Office Visit Cardiology at [address] [place] [address] Letty Montejo, JAYLEN [facility] [place] [address] 04/29/2024 11:15 AM EST Scheduled View Only Radiation Oncology at [address] [address] 04/30/2024 11:30 AM EST Scheduled View Only Radiation Oncology at [address] [address] 05/01/2024 11:15 AM EST Scheduled View Only Radiation Oncology at [address] [address] 05/04/2024 10:45 AM EST Scheduled View Only Radiation Oncology at [address] [address] 05/05/2024 1:00 PM EST Scheduled View Only Radiation Oncology at [address] [address] 05/05/2024 1:15 PM EST Office Visit Radiation Oncology at [address] [address] Radha Casiano MD [facility] DR RADI[place] [address] 05/06/2024 1:00 PM EST Scheduled View Only Radiation Oncology at [address] [address] 05/07/2024 1:00 PM EST Scheduled View Only Radiation Oncology at [address] [address] 05/08/2024 1:00 PM EST Scheduled View Only Radiation Oncology at [address] [address] 05/11/2024 11:30 AM EST Scheduled View Only Radiation Oncology at [address] [address] 01/13/2025 1:00 PM EST Office Visit Hematology/Oncology at [address] [address] Lee Ann Jay MD [facility] HEMATOLOGY [place] [address] Leti Anderson, JAYLEN [facility] HEMATOLOGY [place] [address] documented as of this encounter Visit Diagnoses Diagnosis Other ulcerative colitis with complication Leukopenia, unspecified type documented in this encounter Care Teams Websphere Developer Relationship Specialty Start Date End Date Julia Chatterjee MD [facility] KINA FELIZ [facility] [address] [place] [address] PCP - General 01/31/10 documented as of this encounter
--- OUTSIDE RECORDS SUMMARY | 2024-04-17 01:23 | XMS_ITS | Encounter Summary ---
Author Organization [facility] [place] [address] Care Team Providers Care Special Effects Artist Name Role Phone Julia Chatterjee MD Primary Care Provider [phone] Encounter Details Date Type Department Care Team (Late st Contact Info) Description 01/08/2022 Ancillary Procedure Radiology Library at [facility] [place] [id number] Julia Chatterjee MD [address] [place] [address] [facility] [address], [place] [id number] Social History Tobacco Use Types Packs/Day Years [...] EST Scheduled View Only Radiation Oncology at [address] [address] 04/20/2024 12:45 PM EST Scheduled View Only Radiation Oncology at [address] [address] 04/21/2024 10:45 AM EST Scheduled View Only Radiation Oncology at [address] [address] 04/21/2024 11:00 AM EST Office Visit Radiation Oncology at [address] [address] Radha Casiano MD [facility] [place] [address] 04/22/2024 3:00 PM EST Scheduled View Only Radiation Oncology at [address] [address] 04/23/2024 3:00 PM EST Scheduled View Only Radiation Oncology at [address] [address] 04/24/2024 3:00 PM EST Scheduled View Only Radiation Oncology at [address] [address] 04/27/2024 11:15 AM EST Scheduled View Only Radiation Oncology at [address] [address] 04/28/2024 11:30 AM EST Scheduled View Only Radiation Oncology at [address] [address] 04/28/2024 12:00 PM EST Office Visit Radiation Oncology at [address] [address] Radha Casiano MD [facility] [place] [address] 04/28/2024 2:00 PM EST Office Visit Cardiology at [address] [place] [address] Letty Montejo, JAYLEN [facility] [place] [address] 04/29/2024 11:15 AM EST Scheduled View Only Radiation Oncology at [address] [address] 04/30/2024 11:30 AM EST Scheduled View Only Radiation Oncology at [address] [address] 05/01/2024 11:15 AM EST Scheduled View Only Radiation Oncology at [address] [address] 05/04/2024 10:45 AM EST Scheduled View Only Radiation Oncology at [address] [address] 05/05/2024 1:00 PM EST Scheduled View Only Radiation Oncology at [address] [address] 05/05/2024 1:15 PM EST Office Visit Radiation Oncology at [address] [address] Radha Casiano MD [facility] [place] [address] 05/06/2024 1:00 PM EST Scheduled View Only Radiation Oncology at [address] [address] 05/07/2024 1:00 PM EST Scheduled View Only Radiation Oncology at [address] [address] 05/08/2024 1:00 PM EST Scheduled View Only Radiation Oncology at [address] [address] 05/11/2024 11:30 AM EST Scheduled View Only Radiation Oncology at [address] [address] 01/13/2025 1:00 PM EST Office Visit Hematology/Oncology at [address] [address] Lee Ann Jay MD [facility] [place] [address] Ltei Anderson, RETAIL LEASING AGENT [facility] [place] [address] documented as of this encounter Procedures Procedure Name Priority Date/Time Associated Diagnosis Comments FILM LIBRARY STORAGE ONLY MAMMO Routine 01/08/2022 12:00 AM EDT documented in this encounter Results * Film Library- Storage Only Mammo (01/08/2022 12:00 AM EDT) Narrative [facility] - 10/29/2023 3:04 PM EDT This exam is auto-finalizing. It's purpose is for storage only. Julia Chatterjee MD G FILM LIBRARY ORD ERABLES Performing Organization Address City/State/[facility] Co de Phone Number [place], [place] documented in this encounter Visit Diagnoses Not on filedocumented in this encounter Care Teams Special Effects Artist Relationship Specialty Start Date End Date Julia Chatterjee MD [facility] [address] [place] [address] PCP - General 01/31/10 documented as of this encounter
--- OUTSIDE RECORDS SUMMARY | 2024-04-17 01:23 | XMS_ITS | Encounter Summary ---
Author Organization [facility] [place] [address] Care Team Providers Care Superintendent Car Construction Name Role Phone Julia Chatterjee MD Primary Care Provider [phone] Encounter Details Date Type Department Care Team (Late st Contact Info) Description 06/20/2021 Orders Only [place] [address] Lee Ann Jay MD [facility] [place] [address] H/O upper respiratory infection; Leukopenia, unspecified type [...] Scheduled View Only Radiation Oncology at [address] [address] 04/20/2024 12:45 PM EST Scheduled View Only Radiation Oncology at [address] [address] 04/21/2024 10:45 AM EST Scheduled View Only Radiation Oncology at [address] [address] 04/21/2024 11:00 AM EST Office Visit Radiation Oncology at [address] [address] Radha Casiano MD [facility] [place] [address] 04/22/2024 3:00 PM EST Scheduled View Only Radiation Oncology at [address] [address] 04/23/2024 3:00 PM EST Scheduled View Only Radiation Oncology at [address] [address] 04/24/2024 3:00 PM EST Scheduled View Only Radiation Oncology at [address] [address] 04/27/2024 11:15 AM EST Scheduled View Only Radiation Oncology at [address] [address] 04/28/2024 11:30 AM EST Scheduled View Only Radiation Oncology at [address] [address] 04/28/2024 12:00 PM EST Office Visit Radiation Oncology at [address] [address] Radha Casiano MD [facility] [place] [address] 04/28/2024 2:00 PM EST Office Visit Cardiology at [address] [phone] Letty Montejo, JAYLEN [facility] [place] [address] 04/29/2024 11:15 AM EST Scheduled View Only Radiation Oncology at [address] [address] 04/30/2024 11:30 AM EST Scheduled View Only Radiation Oncology at [address] [address] 05/01/2024 11:15 AM EST Scheduled View Only Radiation Oncology at [address] [address] 05/04/2024 10:45 AM EST Scheduled View Only Radiation Oncology at [address] [address] 05/05/2024 1:00 PM EST Scheduled View Only Radiation Oncology at [address] [address] 05/05/2024 1:15 PM EST Office Visit Radiation Oncology at [address] [address] Radha Casiano MD [facility] [place] [address] 05/06/2024 1:00 PM EST Scheduled View Only Radiation Oncology at [address] [address] 05/07/2024 1:00 PM EST Scheduled View Only Radiation Oncology at [address] [address] 05/08/2024 1:00 PM EST Scheduled View Only Radiation Oncology at [address] [address] 05/11/2024 11:30 AM EST Scheduled View Only Radiation Oncology at [address] [address] 01/13/2025 1:00 PM EST Office Visit Hematology/Oncology at [address] [address] Lee Ann Jay MD [facility] [place] [address] Leti Anderson APRN [facility] [place] [address] documented as of this encounter Results * (ABNORMAL) COVID-19 Nucleocapsid Antibody (06/23/2021 10:42 AM EDT) Pathologist [facility] SARS-CoV-2 Nucleocap Ab Detected (A) Not Detected [...] due to past or present infection with jel-FBBU-EuE-2 coronavirus strains, such as coronavirus HKU1, NL63, OC43, or 229E. This test was performed using the Elecsys Nhwl-CBHS-MeD-2 total antibody test on the Cheo Román e801 analyzer. This serology test is available following FDA Emergency Use Authorization, however it has not been reviewed by the FDA, nor is it FDA cleared or approved. The performance characteristics of this test were determined by the Department of Pathology and Laboratory Medicine at [facility]. The laboratory is certified [...] fact sheets at the following FDA website: https://www.fda.gov/medical-devices/vnoiruynpxv-imqaumk-0921-nvglj-64-axjudyxgt- use-a walxdvtpmxdeb-googsvp-atzauap/xbcql-fotwnqxeuoq-xlwt Blood 06/23/2021 10:4 2 AM EDT 06/23/2021 10:49 AM EDT Lee Ann Jay MD CHEMISTRY ORDERA BLES [facility] [place] [id number] * COVID-19 Sigifredo Antibody (06/23/2021 10:42 AM EDT) Pathologist [facility] SARS-CoV-2 Sigifredo Ab Not Detected [facility] [...] be due to a past infection with bru-XRRA-QpX-2 coronavirus strains, such as coronavirus HKU1, NL63, OC43, or 229E. This test was performed using the ElecQuill Contents Nfda-PEVN-NyI-2 S total antibody assay on the Cheo Román e801 analyzer. This serology test is available following FDA Emergency Use Authorization, however it has not been reviewed by the FDA, nor is it FDA cleared or approved. The performance characteristics of this test were determined by the Department of Pathology and Laboratory Medicine at [facility]. The laboratory is certified [...] fact sheets at the following FDA website: https://www.fda.gov/medical-devices/bcurwkvxhap-yjkbcse-2962-bkwtt-24-obwqijsai- use-a bjxrextibtwam-hngkayo-xylirec/ccmxk-ybnoczlsivc-vevl Blood 06/23/2021 10:4 2 AM EDT 06/23/2021 10:49 AM EDT Lee Ann Jay MD CHEMISTRY ORDERA BLES Performing Organization Address City/State/[facility] Co de Phone Number [facility] [place] [phone] documented in this encounter Visit Diagnoses Diagnosis H/O upper respiratory infection Personal history of unspecified disease of respiratory system Leukopenia, unspecified type documented in this encounter Care Teams Superintendent Car Construction Relationship Specialty Start Date End Date Julia Chatterjee MD [address] [place] [address] PCP - General 01/31/10 documented as of this encounter
--- OUTSIDE RECORDS SUMMARY | 2024-04-17 01:23 | XMS_ITS | Encounter Summary ---
Author Organization [facility] [place] [address] Care Team Providers Care Director Of Bands Name Role Phone Julia Chatterjee MD Primary Care Provider [phone] Encounter Details Date Type Department Care Team (Late st Contact Info) Description 04/05/2021 Telephone Hematology/Oncology at [address] [address] Leonardo Fatima Social History Tobacco Use Types [...] Scheduled View Only Radiation Oncology at [address] [address] 04/20/2024 12:45 PM EST Scheduled View Only Radiation Oncology at [address] [address] 04/21/2024 10:45 AM EST Scheduled View Only Radiation Oncology at [address] [address] 04/21/2024 11:00 AM EST Office Visit Radiation Oncology at [address] [address] Radha Casiano MD [facility] [place] [address] 04/22/2024 3:00 PM EST Scheduled View Only Radiation Oncology at [address] [address] 04/23/2024 3:00 PM EST Scheduled View Only Radiation Oncology at [address] [address] 04/24/2024 3:00 PM EST Scheduled View Only Radiation Oncology at [address] [address] 04/27/2024 11:15 AM EST Scheduled View Only Radiation Oncology at [address] [address] 04/28/2024 11:30 AM EST Scheduled View Only Radiation Oncology at [address] [address] 04/28/2024 12:00 PM EST Office Visit Radiation Oncology at [address] [address] Radha Casiano MD [facility] [place] [address] 04/28/2024 2:00 PM EST Office Visit Cardiology at [address] [place] [phone] Letty Montejo APRN [facility] [place] [address] 04/29/2024 11:15 AM EST Scheduled View Only Radiation Oncology at [address] [address] 04/30/2024 11:30 AM EST Scheduled View Only Radiation Oncology at [address] [address] 05/01/2024 11:15 AM EST Scheduled View Only Radiation Oncology at [address] [address] 05/04/2024 10:45 AM EST Scheduled View Only Radiation Oncology at [address] [address] 05/05/2024 1:00 PM EST Scheduled View Only Radiation Oncology at [address] [address] 05/05/2024 1:15 PM EST Office Visit Radiation Oncology at [address] [address] Radha Casiano MD [facility] DR [place] [address] 05/06/2024 1:00 PM EST Scheduled View Only Radiation Oncology at [address] [address] 05/07/2024 1:00 PM EST Scheduled View Only Radiation Oncology at [address] [address] 05/08/2024 1:00 PM EST Scheduled View Only Radiation Oncology at [address] [address] 05/11/2024 11:30 AM EST Scheduled View Only Radiation Oncology at [address] [address] 01/13/2025 1:00 PM EST Office Visit Hematology/Oncology at [address] [address] Lee Ann Jay MD [facility] HEMATOLOGY [place] [address] Leti Anderson APRN [facility] HEMATOLOGY [place] [address] documented as of this encounter Visit Diagnoses Not on filedocumented in this encounter Care Teams Director Of Bands Relationship Specialty Start Date End Date Julia Chatterjee MD [address] [place] [address] PCP - General 01/31/10 documented as of this encounter
--- OUTSIDE RECORDS SUMMARY | 2024-04-17 01:23 | XMS_ITS | Encounter Summary ---
Author Organization [facility] [place] [address] Care Team Providers Care Pharmacy Technician Program Director Name Role Phone Julia Chatterjee MD Primary Care Provider [phone] Encounter Details Date Type Department Care Team (Late st Contact Info) Description 01/19/2020 Orders Only [place] [address] Jihan Girard, GREEN FEED ATTENDANT [facility] [place] [address] Other ulcerative colitis with complication Social History [...] Scheduled View Only Radiation Oncology at [address] [address] 04/20/2024 12:45 PM EST Scheduled View Only Radiation Oncology at [address] [address] 04/21/2024 10:45 AM EST Scheduled View Only Radiation Oncology at [address] [address] 04/21/2024 11:00 AM EST Office Visit Radiation Oncology at [address] [address] Radha Casiano MD [facility] RADIATION [place] [address] 04/22/2024 3:00 PM EST Scheduled View Only Radiation Oncology at [address] [address] 04/23/2024 3:00 PM EST Scheduled View Only Radiation Oncology at [address] [address] 04/24/2024 3:00 PM EST Scheduled View Only Radiation Oncology at [address] [address] 04/27/2024 11:15 AM EST Scheduled View Only Radiation Oncology at [address] [address] 04/28/2024 11:30 AM EST Scheduled View Only Radiation Oncology at [address] [address] 04/28/2024 12:00 PM EST Office Visit Radiation Oncology at [address] [address] Radha Casiano MD [facility] [place] [address] 04/28/2024 2:00 PM EST Office Visit Cardiology at [address] [place] [address] Letty Montejo, JAYLEN [facility] [place] [address] 04/29/2024 11:15 AM EST Scheduled View Only Radiation Oncology at [address] [address] 04/30/2024 11:30 AM EST Scheduled View Only Radiation Oncology at [address] [address] 05/01/2024 11:15 AM EST Scheduled View Only Radiation Oncology at [address] [address] 05/04/2024 10:45 AM EST Scheduled View Only Radiation Oncology at [address] [address] 05/05/2024 1:00 PM EST Scheduled View Only Radiation Oncology at [address] [address] 05/05/2024 1:15 PM EST Office Visit Radiation Oncology at [address] [address] Radha Casiano MD [facility] [place] [address] 05/06/2024 1:00 PM EST Scheduled View Only Radiation Oncology at [address] [address] 05/07/2024 1:00 PM EST Scheduled View Only Radiation Oncology at [address] [address] 05/08/2024 1:00 PM EST Scheduled View Only Radiation Oncology at [address] [address] 05/11/2024 11:30 AM EST Scheduled View Only Radiation Oncology at [address] [address] 01/13/2025 1:00 PM EST Office Visit Hematology/Oncology at [address] [address] Lee Ann Jay MD [facility] [place] [address] DavisLeti escobedo APRN [facility] DR [place] [address] documented as of this encounter Visit Diagnoses Diagnosis Other ulcerative colitis with complication documented in this encounter Care Teams Pharmacy Technician Program Director Relationship Specialty Start Date End Date Julia Chatterjee MD [facility] KINA FELIZ [facility] [address] [place] [address] PCP - General 01/31/10 documented as of this encounter
--- OUTSIDE RECORDS SUMMARY | 2024-04-17 01:23 | XMS_ITS | Encounter Summary ---
[place] [address] Care Team Providers Care Care Team Assistant Name Role Phone Julia Chatterjee MD Primary Care Provider [phone] Reason for Visit * Reason Onset Date Comments Prior Authorization 11/11/2019 Encounter Details Date Type Department Care Team (Late st Contact Info) Description 11/11/2019 Telephone [place] [address] Adia Angel CMA Prior Authorization Social History Tobacco Use Types [...] Prior Authorization 4L Gastroenterology / [place] [address] Subscriber Insurance: [employer] Phone: Fax: Physician: [...] EST Scheduled View Only Radiation Oncology at [address] [address] 04/20/2024 12:45 PM EST Scheduled View Only Radiation Oncology at [address] [address] 04/21/2024 10:45 AM EST Scheduled View Only Radiation Oncology at [address] [address] 04/21/2024 11:00 AM EST Office Visit Radiation Oncology at [address] [address] Radha Casiano MD [facility] [place] [address] 04/22/2024 3:00 PM EST Scheduled View Only Radiation Oncology at [address] [address] 04/23/2024 3:00 PM EST Scheduled View Only Radiation Oncology at [address] [address] 04/24/2024 3:00 PM EST Scheduled View Only Radiation Oncology at [address] [address] 04/27/2024 11:15 AM EST Scheduled View Only Radiation Oncology at [address] [address] 04/28/2024 11:30 AM EST Scheduled View Only Radiation Oncology at [address] [address] 04/28/2024 12:00 PM EST Office Visit Radiation Oncology at [address] [address] Radha Casiano MD [facility] [place] [address] 04/28/2024 2:00 PM EST Office Visit Cardiology at [address] [place] [address] Letty Montejo, JAYLEN [facility] [place] [address] 04/29/2024 11:15 AM EST Scheduled View Only Radiation Oncology at [address] [address] 04/30/2024 11:30 AM EST Scheduled View Only Radiation Oncology at [address] [address] 05/01/2024 11:15 AM EST Scheduled View Only Radiation Oncology at [address] [address] 05/04/2024 10:45 AM EST Scheduled View Only Radiation Oncology at [address] [address] 05/05/2024 1:00 PM EST Scheduled View Only Radiation Oncology at [address] [address] 05/05/2024 1:15 PM EST Office Visit Radiation Oncology at [address] [address] Radha Casiano MD [facility] [place] [address] 05/06/2024 1:00 PM EST Scheduled View Only Radiation Oncology at [address] [address] 05/07/2024 1:00 PM EST Scheduled View Only Radiation Oncology at [address] [address] 05/08/2024 1:00 PM EST Scheduled View Only Radiation Oncology at [address] [address] 05/11/2024 11:30 AM EST Scheduled View Only Radiation Oncology at [address] [address] 01/13/2025 1:00 PM EST Office Visit Hematology/Oncology at [address] [address] Lee Ann Jay MD [facility] DR HEMATOLOGY [place] [address] Leti Anderson APRN [facility] DR HEMATOLOGY [place] [address] documented as of this encounter Visit Diagnoses Not on filedocumented in this encounter Care Teams Care Team Assistant Relationship Specialty Start Date End Date Julia Chatterjee MD [facility] [address] [place] [address] PCP - General 01/31/10 documented as of this encounter
--- OUTSIDE RECORDS SUMMARY | 2024-04-17 01:23 | XMS_ITS | Encounter Summary ---
[place] [address] Care Team Providers Care Counter Attendant Name Role Phone Julia Chatterjee MD Primary Care Provider [phone] Encounter Details Date Type Department Care Team (Late Contact Info) Description 11/06/2019 [place] [phone] Ailyn Momin RN Social History Tobacco Use [...] EDT Call received from lab at [facility] with critical lab value on pt. WBC: 1.69 ANC 0.42 They will fax paper copy to us Will send to Dr. Oliveros/Olya and Dr. Jay documented in this encounter Plan of Treatment Upcoming Encounters Date Type Department Care Team (Late st Contact Info) Description 04/17/2024 2:30 PM EST Scheduled View Only Radiation Oncology at [address] [phone] 04/20/2024 12:45 PM EST Scheduled View Only Radiation Oncology at [address] [address] 04/21/2024 10:45 AM EST Scheduled View Only Radiation Oncology at [address] [address] 04/21/2024 11:00 AM EST Office Visit Radiation Oncology at [address] [address] Radha Casiano MD [facility] [place] [address] 04/22/2024 3:00 PM EST Scheduled View Only Radiation Oncology at [address] [address] 04/23/2024 3:00 PM EST Scheduled View Only Radiation Oncology at [address] [address] 04/24/2024 3:00 PM EST Scheduled View Only Radiation Oncology at [address] [address] 04/27/2024 11:15 AM EST Scheduled View Only Radiation Oncology at [address] [address] 04/28/2024 11:30 AM EST Scheduled View Only Radiation Oncology at [address] [address] 04/28/2024 12:00 PM EST Office Visit Radiation Oncology at [address] [address] Radha Casiano MD [facility] [place] [address] 04/28/2024 2:00 PM EST Office Visit Cardiology at [address] [phone] Letty Montejo, PHYSICAL THERAPY AIDES TEACHER [facility] [place] [address] 04/29/2024 11:15 AM EST Scheduled View Only Radiation Oncology at [address] [address] 04/30/2024 11:30 AM EST Scheduled View Only Radiation Oncology at [address] [address] 05/01/2024 11:15 AM EST Scheduled View Only Radiation Oncology at [address] [address] 05/04/2024 10:45 AM EST Scheduled View Only Radiation Oncology at [address] [address] 05/05/2024 1:00 PM EST Scheduled View Only Radiation Oncology at [address] [address] 05/05/2024 1:15 PM EST Office Visit Radiation Oncology at [address] [address] Radha Casiano MD [facility] [place] [address] 05/06/2024 1:00 PM EST Scheduled View Only Radiation Oncology at [address] [address] 05/07/2024 1:00 PM EST Scheduled View Only Radiation Oncology at [address] [address] 05/08/2024 1:00 PM EST Scheduled View Only Radiation Oncology at [address] [address] 05/11/2024 11:30 AM EST Scheduled View Only Radiation Oncology at [address] [address] 01/13/2025 1:00 PM EST Office Visit Hematology/Oncology at [address] [address] Lee Ann Jay MD [facility] DR [place] [address] Leti Anderson APRN [facility] [place] [address] documented as of this encounter Visit Diagnoses Not on filedocumented in this encounter Care Teams Counter Attendant Relationship Specialty Start Date End Date Julia Chatterjee MD [facility] KINA FELIZ [facility] [address] [place] [address] PCP - General 01/31/10 documented as of this encounter
--- OUTSIDE RECORDS SUMMARY | 2024-04-17 01:23 | XMS_ITS | Encounter Summary ---
Author Organization Formerly [facility] Address [facility] [place] [address] Care Team Providers Care Juvenile Counselor Name Role Phone Julia Chatterjee MD Primary Care Provider [phone] Encounter Details Date Type Department Care Team (Late st Contact Info) Description 04/27/2020 1:00 PM EST Office Visit Hematology/Oncology at [address] [address] Lee Ann Jay MD [facility] DR HEMATOLOGY [place] [address] Large granular lymphocytic leukemia Social History Tobacco [...] help much - Followed with a local model home sales greeter and used dietary supplements to maintain remission - Did well until August 2019 when she developed abdominal pain, fevers, loose stool. Went to [facility] andd CT showing inflamed colon. Flex sig [...] qhs after colonoscopy in October 2019 - Morning View worse on Canasa - fecal calpro 109 [...] flow ) are being pursued at the [facility]. Should ??cytopenias persist , it may be [...] better now with the help of her model home sales greeter. Feels well, good energy . No infections. [...] LIVER 09/02/2019 CT Guided Aspiration Liver 09/02/2019 [facility] RAD CAT SCAN ??? IR DRAIN CHECK/CHANGE/REMOVE 09/28/2019 IR Drain Check/Change/Remove 09/28/2019 Cliff Langston MD [facility] INTERVENTIONL RAD ??? PRO BONE MARROW ASPIRATION W/BX THROUGH SAME INCISION/SITE Right 01/08/2017 [facility] BONE MARROW ASP PERFORMED W/BX THRU BX INCISION (WRVU 0.16) performed by Lee Ann Jay MD at [facility] OSC ??? PRO BONE MARROW BX, NEEDLE/TROCAR Right 01/08/2017 ([facility] BONE MARROW,BIOPSY (WRVU 1.37) performed by Lee Ann Jay MD at [facility] OSC ??? PRO COLONOSCOPY, BIOPSY 07/05/2011 COLONOSCOPY FLEXIBLE, WITH BX performed by AYAZ NELSON at [facility] ENDOSCOPY ??? PRO COLONOSCOPY, BIOPSY N/A 10/22/2019 COLONOSCOPY FLEXIBLE, WITH BX (WRVU 3.66) performed by Yola Oliveros MD at [facility] ENDOSCOPY ??? PRO COLONOSCOPY, REMV LESN, SNARE 07/05/2011 COLONOSCOPY, POLYPECTOMY, REMOVAL LESION BY SNARE performed by AYAZ NELSON at [facility] ENDOSCOPY ??? PRO SIGMOIDOSCOPY, DIAGNOSTIC N/A 09/02/2019 FLEXIBLE SIGMOIDOSCOPY performed by Ayaz Nelson MD at [facility] ENDOSCOPY Medications; Current Outpatient Medications on [...] low white counts. Social History: Lives in [facility]. . 1 son 38 years old- healthy. 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 GENERAL: Leti M Sohan appears well and is in no acute [...] flow ) are being pursued at the [place] [facility]. Should ??cytopenias persist , it may [...] receptor gene rearrangement detected. Radiology: US at [facility] 11/2016. Liver 14.5 cm. Spleen 8cm. Assessment and Recommendations: 69 y.o. Healthy female who has been referred to us for leukopenia. She has had leukopenia since 2006 with normal hemoglobin and platelet. She has no symptoms- no increased frequency of infections. 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 She has been working with a model home sales greeter who started her on selenium and zinc and about a dozen other supplements. Counts are a bit higher so we will see. Bindery Cutter Operator has been helping her with bowel issues. These are better w/ diet adjustments. Diet changes have helped her UC and GI symptoms. Of note, she is on multiple naturopathic medications through her drafter landscape - mostly to help w/ herGI tract. [...] This note was written or modified using [employer] voice recognition software. The final note was screened for mistakes. Please excuse any remaining errors. documented in this encounter Plan of Treatment Upcoming Encounters Date Type Department Care Team (Late st Contact Info) Description 04/17/2024 2:30 PM EST Scheduled View Only Radiation Oncology at [address] [address] 04/20/2024 12:45 PM EST Scheduled View Only Radiation Oncology at [address] [address] 04/21/2024 10:45 AM EST Scheduled View Only Radiation Oncology at [address] [address] 04/21/2024 11:00 AM EST Office Visit Radiation Oncology at [address] [address] Radha Casiano MD [facility] [place] [address] 04/22/2024 3:00 PM EST Scheduled View Only Radiation Oncology at [address] [address] 04/23/2024 3:00 PM EST Scheduled View Only Radiation Oncology at [address] [address] 04/24/2024 3:00 PM EST Scheduled View Only Radiation Oncology at [address] [address] 04/27/2024 11:15 AM EST Scheduled View Only Radiation Oncology at [address] [address] 04/28/2024 11:30 AM EST Scheduled View Only Radiation Oncology at [address] [address] 04/28/2024 12:00 PM EST Office Visit Radiation Oncology at [address] [address] Radha Casiano MD [facility] [place] [place] [address] 04/28/2024 2:00 PM EST Office Visit Cardiology at [address] [place] [address] Letty Montejo APRN [facility] [place] [address] 04/29/2024 11:15 AM EST Scheduled View Only Radiation Oncology at [address] [address] 04/30/2024 11:30 AM EST Scheduled View Only Radiation Oncology at [address] [address] 05/01/2024 11:15 AM EST Scheduled View Only Radiation Oncology at [address] [address] 05/04/2024 10:45 AM EST Scheduled View Only Radiation Oncology at [address] [address] 05/05/2024 1:00 PM EST Scheduled View Only Radiation Oncology at [address] [address] 05/05/2024 1:15 PM EST Office Visit Radiation Oncology at [address] [address] Radha Casiano MD [facility] [place] [address] 05/06/2024 1:00 PM EST Scheduled View Only Radiation Oncology at [address] [address] 05/07/2024 1:00 PM EST Scheduled View Only Radiation Oncology at [address] [address] 05/08/2024 1:00 PM EST Scheduled View Only Radiation Oncology at [address] [address] 05/11/2024 11:30 AM EST Scheduled View Only Radiation Oncology at [address] [address] 01/13/2025 1:00 PM EST Office Visit Hematology/Oncology at [address] [phone] Lee Ann Jay MD [facility] HEMATOLOGY [place] [address] Leti Anderson APRN [facility] HEMATOLOGY [place] [address] documented as of this encounter Procedures Procedure Name Priority Date/Time Associated Diagnosis Comments CREATININE Routine 04/21/2020 CBC (WITH DIFF) Routine 01/21/2020 documented in this encounter Results * Creatinine (04/21/2020) Creatinine 0.7 Blood 04/21/2020 Historical Provider CHEMISTRY ORDERAB LES * CBC (with Diff) (01/21/2020) White Blood Cell 1.62 Hemoglobin 13.1 Hematocrit 40.3 Platelet 150 Neutrophil Absolute (ANC) - Automated 0.13 Blood 01/21/2020 Historical Provider HEMATOLOGY ORDERA BLES documented in this encounter Visit Diagnoses Diagnosis 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, without mention of having achieved remission documented in this encounter Care Teams Juvenile Counselor Relationship Specialty Start Date End Date Julia Chatterjee MD [facility] [address] [place] [address] PCP - General 01/31/10 documented as of this encounter
--- OUTSIDE RECORDS SUMMARY | 2024-04-17 01:23 | XMS_ITS | Encounter Summary ---
Author Organization Formerly [facility] [place] [address] Care Team Providers Care Truck Driver Flatbed Name Role Phone Julia Chatterjee MD Primary Care Provider [phone] Encounter Details Date Type Department Care Team (Late st Contact Info) Description 01/18/2020 Ancillary Procedure Radiology Library [place] [id number] Julia Chatterjee MD [address] [place] [address] [facility] 1 [place] [address] Social History Tobacco Use Types Packs/Day Years [...] EST Scheduled View Only Radiation Oncology at [address] [address] 04/20/2024 12:45 PM EST Scheduled View Only Radiation Oncology at [address] [address] 04/21/2024 10:45 AM EST Scheduled View Only Radiation Oncology at [address] [address] 04/21/2024 11:00 AM EST Office Visit Radiation Oncology at [address] [address] Radha Casiano MD [facility] RADI[place] [address] 04/22/2024 3:00 PM EST Scheduled View Only Radiation Oncology at [address] [address] 04/23/2024 3:00 PM EST Scheduled View Only Radiation Oncology at [address] [address] 04/24/2024 3:00 PM EST Scheduled View Only Radiation Oncology at [address] [address] 04/27/2024 11:15 AM EST Scheduled View Only Radiation Oncology at [address] [address] 04/28/2024 11:30 AM EST Scheduled View Only Radiation Oncology at [address] [address] 04/28/2024 12:00 PM EST Office Visit Radiation Oncology at [address] [address] Radha Casiano MD [facility] [place] [address] 04/28/2024 2:00 PM EST Office Visit Cardiology at [address] [place] [address] Letty Montejo, JAYLEN [facility] [place] [address] 04/29/2024 11:15 AM EST Scheduled View Only Radiation Oncology at [address] [address] 04/30/2024 11:30 AM EST Scheduled View Only Radiation Oncology at [address] [address] 05/01/2024 11:15 AM EST Scheduled View Only Radiation Oncology at [address] [address] 05/04/2024 10:45 AM EST Scheduled View Only Radiation Oncology at [address] [address] 05/05/2024 1:00 PM EST Scheduled View Only Radiation Oncology at [address] [address] 05/05/2024 1:15 PM EST Office Visit Radiation Oncology at [address] [address] Radha Casiano MD [facility] DR [place] [address] 05/06/2024 1:00 PM EST Scheduled View Only Radiation Oncology at [address] [address] 05/07/2024 1:00 PM EST Scheduled View Only Radiation Oncology at [address] [address] 05/08/2024 1:00 PM EST Scheduled View Only Radiation Oncology at [address] [address] 05/11/2024 11:30 AM EST Scheduled View Only Radiation Oncology at [address] [address] 01/13/2025 1:00 PM EST Office Visit Hematology/Oncology at [address] [address] Lee Ann Jay MD [facility] HEMATOLOGY [place] [address] Leti Anderson, BUILDING SERVICES ENGINEER [facility] HEMATOLOGY [place] [address] documented as of this encounter Procedures Procedure Name Priority Date/Time Associated Diagnosis Comments FILM LIBRARY STORAGE ONLY MAMMO Routine 01/18/2020 12:00 AM EST documented in this encounter Results * Film Library- Storage Only Mammo (01/18/2020 12:00 AM EST) Narrative [facility] - 10/29/2023 3:04 PM EDT This exam is auto-finalizing. It's purpose is for storage only. Julia Chatterjee MD G FILM LIBRARY ORD ERABLES [place], [place] documented in this encounter Visit Diagnoses Not on filedocumented in this encounter Care Teams Truck Driver Flatbed Relationship Specialty Start Date End Date Julia Chatterjee MD [address] [place] [address] [facility] 1 [place] [address] PCP - General 01/31/10 documented as of this encounter
--- OUTSIDE RECORDS SUMMARY | 2024-04-17 01:23 | XMS_ITS | Encounter Summary ---
Author Organization [facility] [place] [address] Care Team Providers Care Cloth Measurer Machine Name Role Phone Julia Chatterjee MD Primary Care Provider [phone] Reason for Visit * Reason Onset Date Comments Labs Only 06/26/2021 Encounter Details Date Type Department Care Team (Late st Contact Info) Description 06/26/2021 Telephone Hematology Oncology at [address] [address] Billie Diaz, RN Labs Only Social History Tobacco Use [...] she was never vaccinated. Mera or Radha tirado can you let her know - or forward to triage person ----- Message ----- From: Franchesca Jang Sent: 06/23/2021 2:59 PM EDT To: Lee Ann Jay MD, # Subject: lab work Leti called this afternoon to let us know she got her lab work done today at [facility]. Thank you, Franchesca documented in this encounter Plan of Treatment Upcoming Encounters Date Type Department Care Team (Late st Contact Info) Description 04/17/2024 2:30 PM EST Scheduled View Only Radiation Oncology at [address] [address] 04/20/2024 12:45 PM EST Scheduled View Only Radiation Oncology at [address] [address] 04/21/2024 10:45 AM EST Scheduled View Only Radiation Oncology at [address] [address] 04/21/2024 11:00 AM EST Office Visit Radiation Oncology at [address] [address] Radha Casiano MD [facility] [place] [address] 04/22/2024 3:00 PM EST Scheduled View Only Radiation Oncology at [address] [address] 04/23/2024 3:00 PM EST Scheduled View Only Radiation Oncology at [address] [address] 04/24/2024 3:00 PM EST Scheduled View Only Radiation Oncology at [address] [address] 04/27/2024 11:15 AM EST Scheduled View Only Radiation Oncology at [address] [address] 04/28/2024 11:30 AM EST Scheduled View Only Radiation Oncology at [address] [address] 04/28/2024 12:00 PM EST Office Visit Radiation Oncology at [address] [address] Radha Casiano MD [facility] [place] [address] 04/28/2024 2:00 PM EST Office Visit Cardiology at [address] [address] Letty Montejo APRN [facility] [place] [address] 04/29/2024 11:15 AM EST Scheduled View Only Radiation Oncology at [address] [address] 04/30/2024 11:30 AM EST Scheduled View Only Radiation Oncology at [address] [address] 05/01/2024 11:15 AM EST Scheduled View Only Radiation Oncology at [address] [address] 05/04/2024 10:45 AM EST Scheduled View Only Radiation Oncology at [address] [address] 05/05/2024 1:00 PM EST Scheduled View Only Radiation Oncology at [address] [address] 05/05/2024 1:15 PM EST Office Visit Radiation Oncology at [address] [address] Radha Casiano MD [facility] [place] [address] 05/06/2024 1:00 PM EST Scheduled View Only Radiation Oncology at [address] [address] 05/07/2024 1:00 PM EST Scheduled View Only Radiation Oncology at [address] [address] 05/08/2024 1:00 PM EST Scheduled View Only Radiation Oncology at [address] [address] 05/11/2024 11:30 AM EST Scheduled View Only Radiation Oncology at [address] [address] 01/13/2025 1:00 PM EST Office Visit Hematology/Oncology at [address] [address] Lee Ann Jay MD [facility] DR [place] [address] Leti Anderson APRN [facility] DR [place] [address] documented as of this encounter Visit Diagnoses Not on filedocumented in this encounter Care Teams Cloth Measurer Machine Relationship Specialty Start Date End Date Julia Chatterjee MD [facility] KINA DORADO [address] [place] [address] PCP - General 01/31/10 documented as of this encounter
--- OUTSIDE RECORDS SUMMARY | 2024-04-17 01:23 | XMS_ITS | Encounter Summary ---
Author Organization [facility] [place] [address] Care Team Providers Care Threshing Department Supervisor Name Role Phone Julia Chatterjee MD Primary Care Provider [phone] Reason for Visit * Reason Onset Date Comments Labs Only 12/10/2019 Encounter Details Date Type Department Care Team (Late Contact Info) Description 12/10/2019 Telephone Hematology/Oncology at [address] [address] Mera Cintron RN Labs Only [...] EST Scheduled View Only Radiation Oncology at [address] [address] 04/20/2024 12:45 PM EST Scheduled View Only Radiation Oncology at [address] [address] 04/21/2024 10:45 AM EST Scheduled View Only Radiation Oncology at [address] [address] 04/21/2024 11:00 AM EST Office Visit Radiation Oncology at [address] [address] Radha Casinao MD [facility] [place] [address] 04/22/2024 3:00 PM EST Scheduled View Only Radiation Oncology at [address] [address] 04/23/2024 3:00 PM EST Scheduled View Only Radiation Oncology at [address] [address] 04/24/2024 3:00 PM EST Scheduled View Only Radiation Oncology at [address] [address] 04/27/2024 11:15 AM EST Scheduled View Only Radiation Oncology at [address] [address] 04/28/2024 11:30 AM EST Scheduled View Only Radiation Oncology at [address] [address] 04/28/2024 12:00 PM EST Office Visit Radiation Oncology at [address] [address] Radha Casiano MD [facility] [place] [address] 04/28/2024 2:00 PM EST Office Visit Cardiology at [address] [place] [address] Letty Montejo, MACHINIST SET UP [facility] [place] [address] 04/29/2024 11:15 AM EST Scheduled View Only Radiation Oncology at [address] [address] 04/30/2024 11:30 AM EST Scheduled View Only Radiation Oncology at [address] [address] 05/01/2024 11:15 AM EST Scheduled View Only Radiation Oncology at [address] [address] 05/04/2024 10:45 AM EST Scheduled View Only Radiation Oncology at [address] [address] 05/05/2024 1:00 PM EST Scheduled View Only Radiation Oncology at [address] [address] 05/05/2024 1:15 PM EST Office Visit Radiation Oncology at [address] [address] Radha Casiano MD [facility] RADIATION ONCOLOGY [place] [id number] 05/06/2024 1:00 PM EST Scheduled View Only Radiation Oncology at [address] [address] 05/07/2024 1:00 PM EST Scheduled View Only Radiation Oncology at [address] [address] 05/08/2024 1:00 PM EST Scheduled View Only Radiation Oncology at [address] [address] 05/11/2024 11:30 AM EST Scheduled View Only Radiation Oncology at [address] [address] 01/13/2025 1:00 PM EST Office Visit Hematology/Oncology at [address] [address] Lee Ann Jay MD [facility] [place] [address] Leti Anderson APRN [facility] [place] [address] documented as of this encounter Procedures Procedure Name Priority Date/Time Associated Diagnosis Comments CBC (WITH DIFF) Routine 12/03/2019 documented in this encounter Results * CBC (with Diff) (12/03/2019) White Blood Cell 1.86 Hemoglobin 13.0 Hematocrit 41.9 Platelet 209 Neutrophil Absolute (ANC) - Automated 0.2 Blood specimen (specimen) 12/03/2019 Historical Provider HEMATOLOGY ORDERA BLES documented in this encounter Visit Diagnoses Not on filedocumented in this encounter Care Teams Threshing Department Supervisor Relationship Specialty Start Date End Date Julia Chatterjee MD [facility] [address] [place] [address] PCP - General 01/31/10 documented as of this encounter
--- OUTSIDE RECORDS SUMMARY | 2024-04-17 01:23 | XMS_ITS | Encounter Summary ---
Author Organization [facility] Address [facility] [place] [address] Care Team Providers Care Commodities Trader Name Role Phone Julia Chatterjee MD Primary Care Provider [phone] Encounter Details Date Type Department Care Team (Latest Contact Info) Description 09/19/2020 4:30 PM EDT TH Visit (TeleHealth) [place] [phone] Yola Oliveros MD [facility] [place] [address] Other ulcerative colitis with complication Social History [...] help much - Followed with a local bluing oven tender and used dietary supplements to maintain remission - Did well until August 2019 when she developed abdominal pain, fevers, loose stool. Went to [facility] andd CT showing inflamed colon. Flex [...] qhs after colonoscopy in October 2019 - [place] worse on [place] - fecal calpro 109 [...] scheduled on October 13 to go to [place] for a second opinion regarding her LGL. [...] past surgical history that includes Colonoscopy, Biopsy (97210) (07/05/2011); Colonoscopy, Teresev Noeln, Snare (81469) (07/05/2011); Bone Marrow Aspiration W/Bx Through Same Incision/Site (G0364) (Right, 01/08/2017); Bone Marrow Bx, Needle/Trocar (52863) (Right, 01/08/2017);CT Guided Aspiration Liver (09/02/2019); Sigmoidoscopy, Diagnostic (11321) (N/A, 09/02/2019); IR Drain Check/Change/Remove (09/28/2019); and Colonoscopy, Biopsy (12815) (N/A, 10/22/2019). Family History: family history is [...] preparing for this visit, counseling the patient [id number] on the issues outlined above, and documenting an implementing the plan. Ms. Parry was located in [place] at the time of this visit. Marija Oliveros MD Electrical Engineereconomic forecaster Co-Director, [facility] Section of Gastroenterology [place] [address] documented in this encounter Plan of Treatment Upcoming Encounters Date Type Department Care Team (Late st Contact Info) Description 04/17/2024 2:30 PM EST Scheduled View Only Radiation Oncology at [address] [address] 04/20/2024 12:45 PM EST Scheduled View Only Radiation Oncology at [address] [address] 04/21/2024 10:45 AM EST Scheduled View Only Radiation Oncology at [address] [address] 04/21/2024 11:00 AM EST Office Visit Radiation Oncology at [address] [address] Radha Casiano MD [facility] [place] [address] 04/22/2024 3:00 PM EST Scheduled View Only Radiation Oncology at [address] [address] 04/23/2024 3:00 PM EST Scheduled View Only Radiation Oncology at [address] [address] 04/24/2024 3:00 PM EST Scheduled View Only Radiation Oncology at [address] [address] 04/27/2024 11:15 AM EST Scheduled View Only Radiation Oncology at [address] [address] 04/28/2024 11:30 AM EST Scheduled View Only Radiation Oncology at [address] [address] 04/28/2024 12:00 PM EST Office Visit Radiation Oncology at [address] [address] Radha Casiano MD [facility] [place] [address] 04/28/2024 2:00 PM EST Office Visit Cardiology at [address] [place] [phone] Letty Montejo APRN [facility] [place] [address] 04/29/2024 11:15 AM EST Scheduled View Only Radiation Oncology at [address] [address] 04/30/2024 11:30 AM EST Scheduled View Only Radiation Oncology at [address] [address] 05/01/2024 11:15 AM EST Scheduled View Only Radiation Oncology at [address] [address] 05/04/2024 10:45 AM EST Scheduled View Only Radiation Oncology at [address] [address] 05/05/2024 1:00 PM EST Scheduled View Only Radiation Oncology at [address] [address] 05/05/2024 1:15 PM EST Office Visit Radiation Oncology at [address] [address] Radha Casiano MD [facility] [place] [address] 05/06/2024 1:00 PM EST Scheduled View Only Radiation Oncology at [address] [address] 05/07/2024 1:00 PM EST Scheduled View Only Radiation Oncology at [address] [address] 05/08/2024 1:00 PM EST Scheduled View Only Radiation Oncology at [address] [address] 05/11/2024 11:30 AM EST Scheduled View Only Radiation Oncology at [address] [address] 01/13/2025 1:00 PM EST Office Visit Hematology/Oncology at [address] [address] Lee Ann Jay MD [facility] DR HEMATOLOGY [place] [address] Leti Anderson APRN [facility] DR HEMATOLOGY [place] [address] documented as of this encounter Visit Diagnoses Diagnosis Other ulcerative colitis with complication documented in this encounter Care Teams Commodities Trader Relationship Specialty Start Date End Date Julia Chatterjee MD [facility] KINA DORADO [address] [place] [address] PCP - General 01/31/10 documented as of this encounter
--- OUTSIDE RECORDS SUMMARY | 2024-04-17 01:23 | XMS_ITS | Encounter Summary ---
[place] [address] Care Team Providers Care Sales And Distribution Clerk Name Role Phone Julia Chatterjee MD Primary Care Provider [phone] Reason for Visit * Reason Onset Date Comments Reminder Appointment 09/19/2020 Encounter Details Date Type Department Care Team (Late Contact Info) Description 09/19/2020 Telephone [place] [phone] Christy Lopez CCMA Reminder Appointment Social History [...] Scheduled View Only Radiation Oncology at [address] [address] 04/20/2024 12:45 PM EST Scheduled View Only Radiation Oncology at [address] [address] 04/21/2024 10:45 AM EST Scheduled View Only Radiation Oncology at [address] [address] 04/21/2024 11:00 AM EST Office Visit Radiation Oncology at [address] [address] Radha Casiano MD [facility] [place] [address] 04/22/2024 3:00 PM EST Scheduled View Only Radiation Oncology at [address] [address] 04/23/2024 3:00 PM EST Scheduled View Only Radiation Oncology at [address] [address] 04/24/2024 3:00 PM EST Scheduled View Only Radiation Oncology at [address] [address] 04/27/2024 11:15 AM EST Scheduled View Only Radiation Oncology at [address] [address] 04/28/2024 11:30 AM EST Scheduled View Only Radiation Oncology at [address] [address] 04/28/2024 12:00 PM EST Office Visit Radiation Oncology at [address] [address] Radha Casiano MD [facility] RADIATION [place] [address] 04/28/2024 2:00 PM EST Office Visit Cardiology at [address] [place] [address] Letty Montejo APRN [facility] [place] [address] 04/29/2024 11:15 AM EST Scheduled View Only Radiation Oncology at [address] [address] 04/30/2024 11:30 AM EST Scheduled View Only Radiation Oncology at [address] [address] 05/01/2024 11:15 AM EST Scheduled View Only Radiation Oncology at [address] [address] 05/04/2024 10:45 AM EST Scheduled View Only Radiation Oncology at [address] [address] 05/05/2024 1:00 PM EST Scheduled View Only Radiation Oncology at [address] [address] 05/05/2024 1:15 PM EST Office Visit Radiation Oncology at [address] [address] Radha Casiano MD [facility] [place] [address] 05/06/2024 1:00 PM EST Scheduled View Only Radiation Oncology at [address] [address] 05/07/2024 1:00 PM EST Scheduled View Only Radiation Oncology at [address] [address] 05/08/2024 1:00 PM EST Scheduled View Only Radiation Oncology at [address] [address] 05/11/2024 11:30 AM EST Scheduled View Only Radiation Oncology at [address] [address] 01/13/2025 1:00 PM EST Office Visit Hematology/Oncology at [address] [address] Lee Ann Jay MD [facility] [place] [address] Leti Anderson APRN [facility] [place] [address] documented as of this encounter Visit Diagnoses Not on filedocumented in this encounter Care Teams Sales And Distribution Clerk Relationship Specialty Start Date End Date Julia Chatterjee MD [facility] KINA FELIZ [facility] [address] [place] [address] PCP - General 01/31/10 documented as of this encounter
--- OUTSIDE RECORDS SUMMARY | 2024-04-17 01:23 | XMS_ITS | Encounter Summary ---
[place] [address] Care Team Providers Care Electroplating Worker Name Role Phone Julia Chatterjee MD Primary Care Provider [phone] Encounter Details Date Type Department Care Team (Latest Contact Info) Description 06/23/2021 10:35 AM EDT Laboratory Appointment Lab [address] [place] [phone] H/O upper respiratory infection; Leukopenia, unspecified type [...] EST Scheduled View Only Radiation Oncology at [address] [address] 04/20/2024 12:45 PM EST Scheduled View Only Radiation Oncology at [address] [address] 04/21/2024 10:45 AM EST Scheduled View Only Radiation Oncology at [address] [address] 04/21/2024 11:00 AM EST Office Visit Radiation Oncology at [address] [address] Radha Casiano MD [facility] [place] [address] 04/22/2024 3:00 PM EST Scheduled View Only Radiation Oncology at [address] [address] 04/23/2024 3:00 PM EST Scheduled View Only Radiation Oncology at [address] [address] 04/24/2024 3:00 PM EST Scheduled View Only Radiation Oncology at [address] [address] 04/27/2024 11:15 AM EST Scheduled View Only Radiation Oncology at [address] [address] 04/28/2024 11:30 AM EST Scheduled View Only Radiation Oncology at [address] [address] 04/28/2024 12:00 PM EST Office Visit Radiation Oncology at [address] [address] Radha Casiano MD [facility] [place] [address] 04/28/2024 2:00 PM EST Office Visit Cardiology at [address] [place] [address] Letty Montejo, JAYLEN [facility] [place] [address] 04/29/2024 11:15 AM EST Scheduled View Only Radiation Oncology at [address] [address] 04/30/2024 11:30 AM EST Scheduled View Only Radiation Oncology at [address] [address] 05/01/2024 11:15 AM EST Scheduled View Only Radiation Oncology at [address] [address] 05/04/2024 10:45 AM EST Scheduled View Only Radiation Oncology at [address] [address] 05/05/2024 1:00 PM EST Scheduled View Only Radiation Oncology at [address] [address] 05/05/2024 1:15 PM EST Office Visit Radiation Oncology at [address] [address] Radha Casiano MD [facility] [place] [address] 05/06/2024 1:00 PM EST Scheduled View Only Radiation Oncology at [address] [address] 05/07/2024 1:00 PM EST Scheduled View Only Radiation Oncology at [address] [address] 05/08/2024 1:00 PM EST Scheduled View Only Radiation Oncology at [address] [address] 05/11/2024 11:30 AM EST Scheduled View Only Radiation Oncology at [address] [address] 01/13/2025 1:00 PM EST Office Visit Hematology/Oncology at [address] [address] Lee Ann Jay MD [facility] [place] [address] Leti Anderson APRN [facility] [place] [address] documented as of this encounter Procedures Procedure Name Priority Date/Time Associated Diagnosis Comments HC SARS-COV-2 SPIKE ANTIBODY Routine 06/23/2021 10:42 AM EDT H/O upper respiratory infection Leukopenia, unspecified type HC VENIPUNCTURE Routine 06/23/2021 10:42 AM EDT H/O upper respiratory infection Leukopenia, unspecified type documented in this encounter Results * COVID-19 Sigifredo Antibody (06/23/2021 10:42 AM EDT) SARS-CoV-2 Sigifredo Ab Not Detected [facility] Comment: This is a [...] be due to a past infection with ozx-GSKN-BdA-2 coronavirus strains, such as coronavirus HKU1, NL63, OC43, or 229E. This test was performed using the Elecsys Bbcv-OPNK-FdT-2 S total antibody assay on the [employer]án e801 analyzer. This serology test is available following FDA Emergency Use Authorization, however it has not been reviewed by the FDA, nor is it FDA cleared or approved. The performance characteristics of this test were determined by the Department of Pathology and Laboratory Medicine at [facility]. The laboratory is certified under the Clinical [...] fact sheets at the following FDA website: https://www.fda.gov/medical-devices/dcrjmrbthki-wgsrbhe-8570-olgse-11-lmsidiuel- use-a vmcuvwxuqcxig-vzkdogn-twqudbr/jelly-uvehqvvtjcg-lfgn Blood 06/23/2021 10:4 2 AM EDT 06/23/2021 10:49 AM EDT Lee Ann Jay MD CHEMISTRY ORDERA BLES [facility] [place] [address] * (ABNORMAL) COVID-19 Nucleocapsid Antibody (06/23/2021 10:42 AM EDT) Pathologist [facility] SARS-CoV-2 Nucleocap Ab Detected (A) Not Detected [facility] Comment: This test only [...] due to past or present infection with hdu-TVTP-GbF-2 coronavirus strains, such as coronavirus HKU1, NL63, OC43, or 229E. This test was performed using the Elecsys Milk-SRQE-QhW-2 total antibody test on the [employer]án e801 analyzer. This serology test is available following FDA Emergency Use Authorization, however it has not been reviewed by the FDA, nor is it FDA cleared or approved. The performance characteristics of this test were determined by the Department of Pathology and Laboratory Medicine at [facility]. The laboratory is certified under the Clinical [...] fact sheets at the following FDA website: https://www.fda.gov/medical-devices/xwlqlnjezgv-githmki-2461-kqdlb-73-djxjwdybs- use-a fhnmrgqmifkbq-zixswce-qfsmgnl/pnefx-dlaoggbiinh-drjw Blood 06/23/2021 10:4 2 AM EDT 06/23/2021 10:49 AM EDT Lee Ann Jay [place] [address] documented in this encounter Visit Diagnoses Diagnosis H/O upper respiratory infection Personal history of unspecified disease of respiratory system Leukopenia, unspecified type documented in this encounter Care Teams Electroplating Worker Relationship Specialty Start Date End Date Julia Chatterjee MD [facility]ush[facility] DORADO [address] [place] [address] PCP - General 01/31/10 documented as of this encounter
--- OUTSIDE RECORDS SUMMARY | 2024-04-17 01:23 | XMS_ITS | Encounter Summary ---
[place] [address] Care Team Providers Care General Forecaster Name Role Phone Julia Chatterjee MD Primary Care Provider [phone] Reason for Visit * Reason Onset Date Comments Reminder Appointment 06/07/2020 Encounter Details Date Type Department Care Team (Late Contact Info) Description 06/07/2020 Telephone [place] [phone] Christy Lopez CCMA Reminder Appointment Social History [...] Scheduled View Only Radiation Oncology at [address] [address] 04/20/2024 12:45 PM EST Scheduled View Only Radiation Oncology at [address] [address] 04/21/2024 10:45 AM EST Scheduled View Only Radiation Oncology at [address] [address] 04/21/2024 11:00 AM EST Office Visit Radiation Oncology at [address] [address] Radha Casiano MD [facility] [place] [address] 04/22/2024 3:00 PM EST Scheduled View Only Radiation Oncology at [address] [address] 04/23/2024 3:00 PM EST Scheduled View Only Radiation Oncology at [address] [address] 04/24/2024 3:00 PM EST Scheduled View Only Radiation Oncology at [address] [address] 04/27/2024 11:15 AM EST Scheduled View Only Radiation Oncology at [address] [address] 04/28/2024 11:30 AM EST Scheduled View Only Radiation Oncology at [address] [address] 04/28/2024 12:00 PM EST Office Visit Radiation Oncology at [address] [address] Radha Casiano MD [facility] RADIATION [place] [address] 04/28/2024 2:00 PM EST Office Visit Cardiology at [address] [place] [phone] Letty Montejo APRN [facility] [place] [address] 04/29/2024 11:15 AM EST Scheduled View Only Radiation Oncology at [address] [address] 04/30/2024 11:30 AM EST Scheduled View Only Radiation Oncology at [address] [address] 05/01/2024 11:15 AM EST Scheduled View Only Radiation Oncology at [address] [address] 05/04/2024 10:45 AM EST Scheduled View Only Radiation Oncology at [address] [address] 05/05/2024 1:00 PM EST Scheduled View Only Radiation Oncology at [address] [address] 05/05/2024 1:15 PM EST Office Visit Radiation Oncology at [address] [address] Radha Casiano MD [facility] RAD[place] [address] 05/06/2024 1:00 PM EST Scheduled View Only Radiation Oncology at [address] [address] 05/07/2024 1:00 PM EST Scheduled View Only Radiation Oncology at [address] [address] 05/08/2024 1:00 PM EST Scheduled View Only Radiation Oncology at [address] [address] 05/11/2024 11:30 AM EST Scheduled View Only Radiation Oncology at [address] [address] 01/13/2025 1:00 PM EST Office Visit Hematology/Oncology at [address] [address] Lee Ann Jay MD [facility] DR HEMATOLOGY [place] [address] Leti Anderson APRN [facility] HEMATOLOGY [place] [address] documented as of this encounter Visit Diagnoses Not on filedocumented in this encounter Care Teams General Forecaster Relationship Specialty Start Date End Date Julia Chatterjee MD [facility] KINA FELIZ [facility] 1 [place] [address] PCP - General 01/31/10 documented as of this encounter
--- OUTSIDE RECORDS SUMMARY | 2024-04-17 01:23 | XMS_ITS | Encounter Summary ---
Author Organization [facility] [place] [address] Care Team Providers Care Pattern Room Attendant Name Role Phone Julia Chatterjee MD Primary Care Provider [phone] Reason for Visit * Reason Onset Date Comments Abnormal Lab 04/11/2021 critical ANC Encounter Details Date Type Department Care Team (Late Contact Info) Description 04/11/2021 Telephone Hematology/Oncology at [address] [address] Vicky Madrigal RN Abnormal Lab [...] Madrigal RN - 04/11/2021 1:27 PM EST [facility] lab called reporting critical ANC of 0.4 on Leti Parry today. 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 Providers made aware. documented in this encounter Plan of Treatment Upcoming Encounters Date Type Department Care Team (Late Contact Info) Description 04/17/2024 2:30 PM EST Scheduled View Only Radiation Oncology at [address] [address] 04/20/2024 12:45 PM EST Scheduled View Only Radiation Oncology at [address] [address] 04/21/2024 10:45 AM EST Scheduled View Only Radiation Oncology at [address] [address] 04/21/2024 11:00 AM EST Office Visit Radiation Oncology at [address] [address] Radha Casiano MD [facility] [place] [address] 04/22/2024 3:00 PM EST Scheduled View Only Radiation Oncology at [address] [address] 04/23/2024 3:00 PM EST Scheduled View Only Radiation Oncology at [address] [address] 04/24/2024 3:00 PM EST Scheduled View Only Radiation Oncology at [address] [address] 04/27/2024 11:15 AM EST Scheduled View Only Radiation Oncology at [address] [address] 04/28/2024 11:30 AM EST Scheduled View Only Radiation Oncology at [address] [address] 04/28/2024 12:00 PM EST Office Visit Radiation Oncology at [address] [address] Radha Casiano MD [facility] [place] [address] 04/28/2024 2:00 PM EST Office Visit Cardiology at [address] [place] [address] Letty Montejo APRN [facility] [place] [address] 04/29/2024 11:15 AM EST Scheduled View Only Radiation Oncology at [address] [address] 04/30/2024 11:30 AM EST Scheduled View Only Radiation Oncology at [address] [address] 05/01/2024 11:15 AM EST Scheduled View Only Radiation Oncology at [address] [address] 05/04/2024 10:45 AM EST Scheduled View Only Radiation Oncology at [address] [address] 05/05/2024 1:00 PM EST Scheduled View Only Radiation Oncology at [address] [address] 05/05/2024 1:15 PM EST Office Visit Radiation Oncology at [address] [address] Radha Casiano MD [facility] [place] [address] 05/06/2024 1:00 PM EST Scheduled View Only Radiation Oncology at [address] [address] 05/07/2024 1:00 PM EST Scheduled View Only Radiation Oncology at [address] [address] 05/08/2024 1:00 PM EST Scheduled View Only Radiation Oncology at [address] [address] 05/11/2024 11:30 AM EST Scheduled View Only Radiation Oncology at [address] [address] 01/13/2025 1:00 PM EST Office Visit Hematology/Oncology at [address] [address] Lee Ann Jay MD [facility] DR [place] [address] Leti Anderson APRN [facility] [place] [address] documented as of this encounter Visit Diagnoses Not on filedocumented in this encounter Care Teams Pattern Room Attendant Relationship Specialty Start Date End Date Julia Chatterjee MD [facility] KINA DORADO [address] [place] [address] PCP - General 01/31/10 documented as of this encounter
--- OUTSIDE RECORDS SUMMARY | 2024-04-17 01:24 | XMS_ITS | Encounter Summary ---
Author Organization [facility] Address [facility] [place] [address] Care Team Providers Care Plant Protection Superintendent Name Role Phone Julia Chatterjee MD Primary Care Provider [phone] Encounter Details Date Type Department Care Team (Latest Contact Info) Description 10/22/2019 10:27 AM EDT - 10/22/2019 1:24 PM EDT Hospital [place] [address] Yola Oliveros MD [facility] [place] [address] Discharge Disposition: Home Social History Tobacco Use [...] sent through Care Everywhere. * Colonoscopy: Post-op (Faroese) documented in this encounter Medications at Time [...] Scheduled View Only Radiation Oncology at [address] [address] 04/20/2024 12:45 PM EST Scheduled View Only Radiation Oncology at [address] [address] 04/21/2024 10:45 AM EST Scheduled View Only Radiation Oncology at [address] [address] 04/21/2024 11:00 AM EST Office Visit Radiation Oncology at [address] [address] Radha Casiano MD [facility] [place] [address] 04/22/2024 3:00 PM EST Scheduled View Only Radiation Oncology at [address] [address] 04/23/2024 3:00 PM EST Scheduled View Only Radiation Oncology at [address] [address] 04/24/2024 3:00 PM EST Scheduled View Only Radiation Oncology at [address] [address] 04/27/2024 11:15 AM EST Scheduled View Only Radiation Oncology at [address] [address] 04/28/2024 11:30 AM EST Scheduled View Only Radiation Oncology at [address] [address] 04/28/2024 12:00 PM EST Office Visit Radiation Oncology at [address] [address] Radha Casiano MD [facility] [place] [address] 04/28/2024 2:00 PM EST Office Visit Cardiology at [address] [place] [address] Letty Montejo, SALES REPRESENTATIVE [employer] [facility] [place] [place] [address] 04/29/2024 11:15 AM EST Scheduled View Only Radiation Oncology at [address] [address] 04/30/2024 11:30 AM EST Scheduled View Only Radiation Oncology at [address] [address] 05/01/2024 11:15 AM EST Scheduled View Only Radiation Oncology at [address] [address] 05/04/2024 10:45 AM EST Scheduled View Only Radiation Oncology at [address] [address] 05/05/2024 1:00 PM EST Scheduled View Only Radiation Oncology at [address] [address] 05/05/2024 1:15 PM EST Office Visit Radiation Oncology at [address] [address] Radha Casiano MD [facility] [place] [place] [address] 05/06/2024 1:00 PM EST Scheduled View Only Radiation Oncology at [address] [address] 05/07/2024 1:00 PM EST Scheduled View Only Radiation Oncology at [address] [address] 05/08/2024 1:00 PM EST Scheduled View Only Radiation Oncology at [address] [address] 05/11/2024 11:30 AM EST Scheduled View Only Radiation Oncology at [address] [address] 01/13/2025 1:00 PM EST Office Visit Hematology/Oncology at [address] [phone] Lee Ann Jay MD [facility] DR [place] [address] Leti Anderson APRN [facility] [place] [address] documented as of this encounter Procedures Procedure Name Priority Date/Time Associated Diagnosis Comments SPECIMEN TO PATHOLOGY Routine 10/22/2019 11:52 AM EDT SPECIMEN TO PATHOLOGY Routine 10/22/2019 11:52 AM EDT SPECIMEN TO PATHOLOGY Routine 10/22/2019 11:52 AM EDT SPECIMEN TO PATHOLOGY Routine 10/22/2019 11:52 AM EDT SPECIMEN TO PATHOLOGY Routine 10/22/2019 11:52 AM EDT SURGICAL PATHOLOGY REPORT Routine 10/22/2019 11:15 AM EDT Colonoscopy, Biopsy ([id number]) 10/22/2019 11:01 AM EDT Ulcerative rectosigmoiditis with abscess Colonoscopy, IVCS, in 1-2 weeks for L sided colitis c/b hepatic abscess. Evaluate response to antibiotics and extent of colonic involvement COLONOSCOPY Routine 10/22/2019 9:49 AM EDT documented in this encounter Results * Specimen to Pathology (10/22/2019 11:52 AM EDT) AP Specimen 10/22/2019 11:5 2 AM EDT 10/22/2019 11:52 AM EDT Narrative [facility] - 10/22/2019 11:52 AM EDT Specimen requisition ordered. ??Separate Pathology report to follow L Inder Oliveros MD PATHOLOGY/CYTOLOGY O RDERAARMANDO [facility] [place] [address] * Specimen to Pathology (10/22/2019 11:52 AM EDT) AP Specimen 10/22/2019 11:5 2 AM EDT 10/22/2019 11:52 AM EDT Narrative [facility] - 10/22/2019 11:52 AM EDT Specimen requisition ordered. ??Separate Pathology report to follow L Inder Oliveros MD PATHOLOGY/CYTOLOGY O OMI [facility] [place] [address] * Specimen to Pathology (10/22/2019 11:52 AM EDT) AP Specimen 10/22/2019 11:5 2 AM EDT 10/22/2019 11:52 AM EDT Narrative [facility] - 10/22/2019 11:52 AM EDT Specimen requisition ordered. ??Separate Pathology report to follow L Inder Oliveros MD PATHOLOGY/CYTOLOGY O OMI [facility] [place] [address] * Specimen to Pathology (10/22/2019 11:52 AM EDT) AP Specimen 10/22/2019 11:5 2 AM EDT 10/22/2019 11:52 AM EDT Narrative [facility] - 10/22/2019 11:52 AM EDT Specimen requisition ordered. ??Separate Pathology report to follow L Inder Oliveros MD PATHOLOGY/[place] [address] * Specimen to Pathology (10/22/2019 11:52 AM EDT) AP Specimen 10/22/2019 11:5 2 AM EDT 10/22/2019 11:52 AM EDT Narrative [facility] - 10/22/2019 11:52 AM EDT Specimen requisition ordered. ??Separate Pathology report to follow L Inder Oliveros MD PATHOLOGY/CYTOLOGY Eneida [facility] [place] [address] * Surgical Pathology Report (10/22/2019 11:15 AM EDT) Final Diagnosis [id number] ? Location: 4T; EA10; A The signing [...] PhD, Christal Verified: ??10/30/2019 ?Pathologist Performed at: ??-[facility] Dept. of Pathology, [place], [place] ADDITIONAL STUDIES E - ??multiple levels [...] labeled E1. ??ajw 10/30/2019 1:35 PM EDT [facility] GI Biopsy 10/22/2019 11:1 5 [...] L Inder Oliveros MD PATHOLOGY/CYTOLOGY O RDERABLES [facility] [place] [address] * COLONOSCOPY (10/22/2019 9:49 AM EDT) COLONOSCOPY [facility] Endoscopy Procedure Date: 10/22/2019 9:49 AM ? Patient Name: Leti Parry ? Date of : 1950 ? Age: 68 ? Order #: [id number] ? Instrument Name: [id number] ? Procedure: ? Colonoscopy Indications: ? Follow-up of left-sided chronic ? ulcerative colitis Providers: ? Marija Oliveros MD, Hesham Larson ? Skyla Dobson, DAYANA, ? Power Vega Referring MD: ?Julia Chatterjee MD Medicines: ? Fentanyl 250 [...] preparation was evaluated using ? the BBPS ([place] Bowel Preparation ? Scale) with scores of: [...] Procedure Code(s): ?? --- Professional --- ? 10463, Colonoscopy, flexible; with ? biopsy, single or multiple CPT copyright 2019 [employer]. All rights reserved. The codes documented in this report are preliminary and upon vehicle safety inspector review may be revised to meet current [...] on Lulu 10/22/19 at 1105, Until Lulu 8/13/20 at 1524, Intra-Operative (Intra-Procedure), Routine 1105 (Given [...] RN) documented in this encounter Care Teams Plant Protection Superintendent Relationship Specialty Start Date End Date Julia Chatterjee MD Sushant [address] [place] [address] PCP - General 01/31/10 documented as of this encounter
--- OUTSIDE RECORDS SUMMARY | 2024-04-17 01:24 | XMS_ITS | Encounter Summary ---
Author Organization [facility] Xavi francoayah [place] [id number] Care Team Providers Care Transportation Job Titles Name Role Phone Julia Chatterjee MD Primary Care Provider [phone] Reason for Visit * Consultation (Routine) - Closed Specialty Diagnoses / Procedures Referred By Contact Referred To Contact Infectious Diseases Diagnoses Hepatic abscess Bacteroides fragilis Infection due to Peptostreptococcus species Actinomyces infection Briana King [facility] [place] [address] [place] MillsBriana wilburn [facility] [place] [address] Referral ID Status Reason Start Date Expiration Date V isits Requested Visits Authorized [id number] Closed Assume Subset of Care 09/08/2019 09/07/2020 1 1 Encounter Details Date Type Department Care Team (Late st Contact Info) Description 09/28/2019 11:00 AM EDT Office [place] [address] Brandon Eddy MD [facility] [place] [address] shelter current use of antibiotics; Medication management; Liver [...] and ulcerative colitis who was admitted to [facility] from 08/12/19-08/17/19 with E. coli and Streptococcus [...] colitis flare. She was then readmitted to [facility] from 09/01/19 to 09/07/19 with [...] Scheduled View Only Radiation Oncology at [address] [address] 04/20/2024 12:45 PM EST Scheduled View Only Radiation Oncology at [address] [address] 04/21/2024 10:45 AM EST Scheduled View Only Radiation Oncology at [address] [address] 04/21/2024 11:00 AM EST Office Visit Radiation Oncology at [address] [address] Radha Casiano MD [facility] [place] [address] 04/22/2024 3:00 PM EST Scheduled View Only Radiation Oncology at [address] [address] 04/23/2024 3:00 PM EST Scheduled View Only Radiation Oncology at [address] [address] 04/24/2024 3:00 PM EST Scheduled View Only Radiation Oncology at [address] [address] 04/27/2024 11:15 AM EST Scheduled View Only Radiation Oncology at [address] [address] 04/28/2024 11:30 AM EST Scheduled View Only Radiation Oncology at [address] [address] 04/28/2024 12:00 PM EST Office Visit Radiation Oncology at [address] [address] Radha Casiano MD [facility] DR [place] [place] [address] 04/28/2024 2:00 PM EST Office Visit Cardiology at [address] [place] [address] Letty Montejo APRN [facility] [place] [address] 04/29/2024 11:15 AM EST Scheduled View Only Radiation Oncology at [address] [address] 04/30/2024 11:30 AM EST Scheduled View Only Radiation Oncology at [address] [address] 05/01/2024 11:15 AM EST Scheduled View Only Radiation Oncology at [address] [address] 05/04/2024 10:45 AM EST Scheduled View Only Radiation Oncology at [address] [address] 05/05/2024 1:00 PM EST Scheduled View Only Radiation Oncology at [address] [address] 05/05/2024 1:15 PM EST Office Visit Radiation Oncology at [address] [address] Radha Casiano MD [facility] RADI[place] [address] 05/06/2024 1:00 PM EST Scheduled View Only Radiation Oncology at [address] [address] 05/07/2024 1:00 PM EST Scheduled View Only Radiation Oncology at [address] [address] 05/08/2024 1:00 PM EST Scheduled View Only Radiation Oncology at [address] [address] 05/11/2024 11:30 AM EST Scheduled View Only Radiation Oncology at [address] [address] 01/13/2025 1:00 PM EST Office Visit Hematology/Oncology at [address] [address] Lee Ann Jay MD [facility] DR [place] [address] Leti Anderson APRN [facility] DR [place] [address] documented as of this encounter Visit Diagnoses Diagnosis 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
--- OUTSIDE RECORDS SUMMARY | 2024-04-17 01:24 | XMS_ITS | Encounter Summary ---
Author Organization [facility] [place] [address] Care Team Providers Care Assembler Skylights Name Role Phone Julia Chatterjee MD Primary Care Provider [phone] Encounter Details Date Type Department Care Team (Late st Contact Info) Description 10/21/2019 Orders Only Hematology [place] [address] Lee Ann Jay MD [facility] DR HEMATOLOGY [place] [address] Social History Tobacco Use Types Packs/Day Years [...] EST Scheduled View Only Radiation Oncology at [address] [address] 04/20/2024 12:45 PM EST Scheduled View Only Radiation Oncology at [address] [address] 04/21/2024 10:45 AM EST Scheduled View Only Radiation Oncology at [address] [address] 04/21/2024 11:00 AM EST Office Visit Radiation Oncology at [address] [address] Radha Casiano MD [facility] [place] [address] 04/22/2024 3:00 PM EST Scheduled View Only Radiation Oncology at [address] [address] 04/23/2024 3:00 PM EST Scheduled View Only Radiation Oncology at [address] [address] 04/24/2024 3:00 PM EST Scheduled View Only Radiation Oncology at [address] [address] 04/27/2024 11:15 AM EST Scheduled View Only Radiation Oncology at [address] [address] 04/28/2024 11:30 AM EST Scheduled View Only Radiation Oncology at [address] [address] 04/28/2024 12:00 PM EST Office Visit Radiation Oncology at [address] [address] Radha Casiano MD [facility] [place] [address] 04/28/2024 2:00 PM EST Office Visit Cardiology at [address] [place] [address] Letty Montejo, SALES AGENT [employer] [facility] [place] [address] 04/29/2024 11:15 AM EST Scheduled View Only Radiation Oncology at [address] [address] 04/30/2024 11:30 AM EST Scheduled View Only Radiation Oncology at [address] [address] 05/01/2024 11:15 AM EST Scheduled View Only Radiation Oncology at [address] [address] 05/04/2024 10:45 AM EST Scheduled View Only Radiation Oncology at [address] [address] 05/05/2024 1:00 PM EST Scheduled View Only Radiation Oncology at [address] [address] 05/05/2024 1:15 PM EST Office Visit Radiation Oncology at [address] [address] Radha Casiano MD [facility] [place] [address] 05/06/2024 1:00 PM EST Scheduled View Only Radiation Oncology at [address] [address] 05/07/2024 1:00 PM EST Scheduled View Only Radiation Oncology at [address] [address] 05/08/2024 1:00 PM EST Scheduled View Only Radiation Oncology at [address] [address] 05/11/2024 11:30 AM EST Scheduled View Only Radiation Oncology at [address] [address] 01/13/2025 1:00 PM EST Office Visit Hematology/Oncology at [address] [address] Lee Ann Jay MD [facility] HEMATOLOGY [place] [address] Leti Anderson APRN [facility] HEMATOLOGY [place] [address] documented as of this encounter Visit Diagnoses Not on filedocumented in this encounter Care Teams Assembler Skylights Relationship Specialty Start Date End Date Julia Chatterjee MD Sushant [address] [facility] 1 [place] [address] PCP - General 01/31/10 documented as of this encounter
--- OUTSIDE RECORDS SUMMARY | 2024-04-17 01:24 | XMS_ITS | Encounter Summary ---
Author Organization [facility] Address [facility] [place] [address] Care Team Providers Care Basting Marker Name Role Phone Julia Chatterjee MD Primary Care Provider [phone] Encounter Details Date Type Department Care Team (Late st Contact Info) Description 09/09/2019 Telephone [place] [address] Jessica Johnson Social History Tobacco Use Types [...] - 09/09/2019 8:02 AM EDT Leti Parry [id number] Diagnosis/Indication: [place] 1. Have you ever had a/an Colonoscopy [...] to patient: You must have a responsible democrat who will drive you to your procedure, [...] Scheduled View Only Radiation Oncology at [address] [address] 04/20/2024 12:45 PM EST Scheduled View Only Radiation Oncology at [address] [address] 04/21/2024 10:45 AM EST Scheduled View Only Radiation Oncology at [address] [address] 04/21/2024 11:00 AM EST Office Visit Radiation Oncology at [address] [address] Radha Casiano MD [facility] [place] [address] 04/22/2024 3:00 PM EST Scheduled View Only Radiation Oncology at [address] [address] 04/23/2024 3:00 PM EST Scheduled View Only Radiation Oncology at [address] [address] 04/24/2024 3:00 PM EST Scheduled View Only Radiation Oncology at [address] [address] 04/27/2024 11:15 AM EST Scheduled View Only Radiation Oncology at [address] [address] 04/28/2024 11:30 AM EST Scheduled View Only Radiation Oncology at [address] [address] 04/28/2024 12:00 PM EST Office Visit Radiation Oncology at [address] [address] Radha Casiano MD [facility] [place] [address] 04/28/2024 2:00 PM EST Office Visit Cardiology at [address] [place] [address] Letty Montejo APRN [facility] [place] [address] 04/29/2024 11:15 AM EST Scheduled View Only Radiation Oncology at [address] [address] 04/30/2024 11:30 AM EST Scheduled View Only Radiation Oncology at [address] [address] 05/01/2024 11:15 AM EST Scheduled View Only Radiation Oncology at [address] [address] 05/04/2024 10:45 AM EST Scheduled View Only Radiation Oncology at [address] [address] 05/05/2024 1:00 PM EST Scheduled View Only Radiation Oncology at [address] [address] 05/05/2024 1:15 PM EST Office Visit Radiation Oncology at [address] [address] Radha Casiano MD [facility] [place] [address] 05/06/2024 1:00 PM EST Scheduled View Only Radiation Oncology at [address] [address] 05/07/2024 1:00 PM EST Scheduled View Only Radiation Oncology at [address] [address] 05/08/2024 1:00 PM EST Scheduled View Only Radiation Oncology at [address] [address] 05/11/2024 11:30 AM EST Scheduled View Only Radiation Oncology at [address] [address] 01/13/2025 1:00 PM EST Office Visit Hematology/Oncology at [address] [address] Lee Ann Jay MD [facility] DR HEMATOLOGY [place] [address] Leti Anderson APRN [facility] DR HEMATOLOGY [place] [address] documented as of this encounter Visit Diagnoses Not on filedocumented in this encounter Care Teams Basting Marker Relationship Specialty Start Date End Date Julia Chatterjee MD [facility] KINA DORADO [address] [place] [address] PCP - General 01/31/10 documented as of this encounter
--- OUTSIDE RECORDS SUMMARY | 2024-04-17 01:24 | XMS_ITS | Encounter Summary ---
[place] [address] Care Team Providers Care Dedicated Driver Name Role Phone Julia Chatterjee MD Primary Care Provider [phone] Encounter Details Date Type Department Care Team (Late st Contact Info) Description 09/14/2019 [place] [address] Power Manriquez MD Social History Tobacco Use Types Packs/Day Years [...] Scheduled View Only Radiation Oncology at [address] [address] 04/20/2024 12:45 PM EST Scheduled View Only Radiation Oncology at [address] [address] 04/21/2024 10:45 AM EST Scheduled View Only Radiation Oncology at [address] [address] 04/21/2024 11:00 AM EST Office Visit Radiation Oncology at [address] [address] Radha Casiano MD [facility] [place] [address] 04/22/2024 3:00 PM EST Scheduled View Only Radiation Oncology at [address] [address] 04/23/2024 3:00 PM EST Scheduled View Only Radiation Oncology at [address] [address] 04/24/2024 3:00 PM EST Scheduled View Only Radiation Oncology at [address] [address] 04/27/2024 11:15 AM EST Scheduled View Only Radiation Oncology at [address] [address] 04/28/2024 11:30 AM EST Scheduled View Only Radiation Oncology at [address] [address] 04/28/2024 12:00 PM EST Office Visit Radiation Oncology at [address] [address] Radha Casiano MD [facility] [place] [address] 04/28/2024 2:00 PM EST Office Visit Cardiology at [address] [place] [address] Letty Montejo, JAYLEN [facility] [place] [address] 04/29/2024 11:15 AM EST Scheduled View Only Radiation Oncology at [address] [address] 04/30/2024 11:30 AM EST Scheduled View Only Radiation Oncology at [address] [address] 05/01/2024 11:15 AM EST Scheduled View Only Radiation Oncology at [address] [address] 05/04/2024 10:45 AM EST Scheduled View Only Radiation Oncology at [address] [address] 05/05/2024 1:00 PM EST Scheduled View Only Radiation Oncology at [address] [address] 05/05/2024 1:15 PM EST Office Visit Radiation Oncology at [address] [address] Radha Casiano MD [facility] [place] [address] 05/06/2024 1:00 PM EST Scheduled View Only Radiation Oncology at [address] [address] 05/07/2024 1:00 PM EST Scheduled View Only Radiation Oncology at [address] [address] 05/08/2024 1:00 PM EST Scheduled View Only Radiation Oncology at [address] [address] 05/11/2024 11:30 AM EST Scheduled View Only Radiation Oncology at [address] [address] 01/13/2025 1:00 PM EST Office Visit Hematology/Oncology at [address] [address] Lee Ann Jay MD [facility] [place] [address] Leti Anderson APRN [facility] [place] [address] documented as of this encounter Visit Diagnoses Not on filedocumented in this encounter Care Teams Dedicated Driver Relationship Specialty Start Date End Date Julia Chatterjee MD [facility] KINA FELIZ [address] [place] [address] PCP - General 01/31/10 documented as of this encounter
--- OUTSIDE RECORDS SUMMARY | 2024-04-17 01:24 | XMS_ITS | Encounter Summary ---
Author Organization [facility] [place] [address] Care Team Providers Care Block Paver Name Role Phone Julia Chatterjee MD Primary Care Provider [phone] Encounter Details Date Type Department Care Team (Late st Contact Info) Description 09/15/2019 Telephone [place] [phone] Rosanne Recinos RN Social History Tobacco Use [...] Scheduled View Only Radiation Oncology at [address] [address] 04/20/2024 12:45 PM EST Scheduled View Only Radiation Oncology at [address] [address] 04/21/2024 10:45 AM EST Scheduled View Only Radiation Oncology at [address] [address] 04/21/2024 11:00 AM EST Office Visit Radiation Oncology at [address] [address] Radha Casiano MD [facility] [place] [address] 04/22/2024 3:00 PM EST Scheduled View Only Radiation Oncology at [address] [address] 04/23/2024 3:00 PM EST Scheduled View Only Radiation Oncology at [address] [address] 04/24/2024 3:00 PM EST Scheduled View Only Radiation Oncology at [address] [address] 04/27/2024 11:15 AM EST Scheduled View Only Radiation Oncology at [address] [address] 04/28/2024 11:30 AM EST Scheduled View Only Radiation Oncology at [address] [address] 04/28/2024 12:00 PM EST Office Visit Radiation Oncology at [address] [address] Radha Casiano MD [facility] [place] [address] 04/28/2024 2:00 PM EST Office Visit Cardiology at [address] [address] Letty Montejo APRN [facility] [place] [address] 04/29/2024 11:15 AM EST Scheduled View Only Radiation Oncology at [address] [address] 04/30/2024 11:30 AM EST Scheduled View Only Radiation Oncology at [address] [address] 05/01/2024 11:15 AM EST Scheduled View Only Radiation Oncology at [address] [address] 05/04/2024 10:45 AM EST Scheduled View Only Radiation Oncology at [address] [address] 05/05/2024 1:00 PM EST Scheduled View Only Radiation Oncology at [address] [address] 05/05/2024 1:15 PM EST Office Visit Radiation Oncology at [address] [address] Radha Casiano MD [facility] [place] [address] 05/06/2024 1:00 PM EST Scheduled View Only Radiation Oncology at [address] [address] 05/07/2024 1:00 PM EST Scheduled View Only Radiation Oncology at [address] [address] 05/08/2024 1:00 PM EST Scheduled View Only Radiation Oncology at [address] [address] 05/11/2024 11:30 AM EST Scheduled View Only Radiation Oncology at [address] [address] 01/13/2025 1:00 PM EST Office Visit Hematology/Oncology at [address] [address] Lee Ann Jay MD [facility] DR HEMAT[place] [address] Leti Anderson APRN [facility] DR HEMATOLOG[place] [address] documented as of this encounter Visit Diagnoses Not on filedocumented in this encounter Care Teams Block Paver Relationship Specialty Start Date End Date Julia Chatterjee MD [facility] [address] [place] [address] PCP - General 01/31/10 documented as of this encounter
--- OUTSIDE RECORDS SUMMARY | 2024-04-17 01:24 | XMS_ITS | Encounter Summary ---
[facility] [place] [address] Care Team Providers Care Sap Functional Analyst Name Role Phone Julia Chatterjee MD Primary Care Provider [phone] Reason for Visit * Reason Onset Date Comments Labs Only 09/25/2019 lab results and zarxio inj Encounter Details Date Type Department Care Team (Late st Contact Info) Description 09/25/2019 Telephone Hematology Oncology at [address] [address] Billie Diaz, RN Labs Only [...] Scheduled View Only Radiation Oncology at [address] [address] 04/20/2024 12:45 PM EST Scheduled View Only Radiation Oncology at [address] [address] 04/21/2024 10:45 AM EST Scheduled View Only Radiation Oncology at [address] [address] 04/21/2024 11:00 AM EST Office Visit Radiation Oncology at [address] [address] Radha Casiano MD [facility] [place] [address] 04/22/2024 3:00 PM EST Scheduled View Only Radiation Oncology at [address] [address] 04/23/2024 3:00 PM EST Scheduled View Only Radiation Oncology at [address] [address] 04/24/2024 3:00 PM EST Scheduled View Only Radiation Oncology at [address] [address] 04/27/2024 11:15 AM EST Scheduled View Only Radiation Oncology at [address] [address] 04/28/2024 11:30 AM EST Scheduled View Only Radiation Oncology at [address] [address] 04/28/2024 12:00 PM EST Office Visit Radiation Oncology at [address] [address] Radha Casiano MD [facility] [place] [address] 04/28/2024 2:00 PM EST Office Visit Cardiology at [address] [place] [address] Letty Montejo APRN [facility] [place] [address] 04/29/2024 11:15 AM EST Scheduled View Only Radiation Oncology at [address] [address] 04/30/2024 11:30 AM EST Scheduled View Only Radiation Oncology at [address] [address] 05/01/2024 11:15 AM EST Scheduled View Only Radiation Oncology at [address] [address] 05/04/2024 10:45 AM EST Scheduled View Only Radiation Oncology at [address] [address] 05/05/2024 1:00 PM EST Scheduled View Only Radiation Oncology at [address] [address] 05/05/2024 1:15 PM EST Office Visit Radiation Oncology at [address] [address] Radha Casiano MD [facility] [place] [address] 05/06/2024 1:00 PM EST Scheduled View Only Radiation Oncology at [address] [address] 05/07/2024 1:00 PM EST Scheduled View Only Radiation Oncology at [address] [address] 05/08/2024 1:00 PM EST Scheduled View Only Radiation Oncology at [address] [address] 05/11/2024 11:30 AM EST Scheduled View Only Radiation Oncology at [address] [address] 01/13/2025 1:00 PM EST Office Visit Hematology/Oncology at [address] [address] Lee Ann Jay MD [facility] [place] [address] An Anderson APRN [facility] [place] [address] documented as of this encounter Procedures Procedure Name Priority Date/Time Associated Diagnosis Comments CBC (WITH DIFF) Routine 09/25/2019 COMPREHENSIVE METABOLIC PANEL Routine 09/25/2019 documented in this encounter Results * Comprehensive metabolic panel (non-fasting) (09/25/2019) Pathologist [facility] [place] Blood Urea Nitrogen 10 Creatinine 0.63 Blood specimen (specimen) 09/25/2019 Lee Ann Jay MD CHEMISTRY ORDERA BLES * CBC (with Diff) (09/25/2019) Pathologist [facility] [place] White Blood Cell 2.63 Hemoglobin 12.5 Hematocrit 39.5 Platelet 226 Neutrophil Absolute (ANC) - Automated 0.39 Blood specimen (specimen) 09/25/2019 Lee Ann Jay MD HEMATOLOGY ORDER ASHLEY documented in this encounter Visit Diagnoses Not on filedocumented in this encounter Care Teams Sap Functional Analyst Relationship Specialty Start Date End Date Julia Chatterjee MD [facility] [address] [place] [address] PCP - General 01/31/10 documented as of this encounter
--- OUTSIDE RECORDS SUMMARY | 2024-04-17 01:24 | XMS_ITS | Encounter Summary ---
Author Organization [facility] [place] [address] Care Team Providers Care Adjunct Psychology Professor Name Role Phone Julia Chatterjee MD Primary Care Provider [phone] Encounter Details Date Type Department Care Team (Late st Contact Info) Description 09/21/2019 Orders Only Hematology [place] [address] Lee Ann Jay MD [facility] DR HEMATOLOGY [place] [address] Social History Tobacco Use Types Packs/Day Years [...] EST Scheduled View Only Radiation Oncology at [address] [address] 04/20/2024 12:45 PM EST Scheduled View Only Radiation Oncology at [address] [address] 04/21/2024 10:45 AM EST Scheduled View Only Radiation Oncology at [address] [address] 04/21/2024 11:00 AM EST Office Visit Radiation Oncology at [address] [address] Radha Casiano MD [facility] [place] [address] 04/22/2024 3:00 PM EST Scheduled View Only Radiation Oncology at [address] [address] 04/23/2024 3:00 PM EST Scheduled View Only Radiation Oncology at [address] [address] 04/24/2024 3:00 PM EST Scheduled View Only Radiation Oncology at [address] [address] 04/27/2024 11:15 AM EST Scheduled View Only Radiation Oncology at [address] [address] 04/28/2024 11:30 AM EST Scheduled View Only Radiation Oncology at [address] [address] 04/28/2024 12:00 PM EST Office Visit Radiation Oncology at [address] [address] Radha Casiano MD [facility] [place] [address] 04/28/2024 2:00 PM EST Office Visit Cardiology at [address] [place] [address] Letty Montejo, COLLECTION SYSTEMS CONSULTANT [facility] [place] [place] [address] 04/29/2024 11:15 AM EST Scheduled View Only Radiation Oncology at [address] [address] 04/30/2024 11:30 AM EST Scheduled View Only Radiation Oncology at [address] [address] 05/01/2024 11:15 AM EST Scheduled View Only Radiation Oncology at [address] [address] 05/04/2024 10:45 AM EST Scheduled View Only Radiation Oncology at [address] [address] 05/05/2024 1:00 PM EST Scheduled View Only Radiation Oncology at [address] [address] 05/05/2024 1:15 PM EST Office Visit Radiation Oncology at [address] [address] Radha Casiano MD [facility] [place] [address] 05/06/2024 1:00 PM EST Scheduled View Only Radiation Oncology at [address] [address] 05/07/2024 1:00 PM EST Scheduled View Only Radiation Oncology at [address] [address] 05/08/2024 1:00 PM EST Scheduled View Only Radiation Oncology at [address] [address] 05/11/2024 11:30 AM EST Scheduled View Only Radiation Oncology at [address] [address] 01/13/2025 1:00 PM EST Office Visit Hematology/Oncology at [address] [address] Lee Ann Jay MD [facility] HEMATOLOGY [place] [address] Leti Anderson APRN [facility] HEMATOLOGY [place] [address] documented as of this encounter Visit Diagnoses Not on filedocumented in this encounter Care Teams Adjunct Psychology Professor Relationship Specialty Start Date End Date Julia Chatterjee MD [address] [facility] 1 [place] [address] PCP - General 01/31/10 documented as of this encounter
--- OUTSIDE RECORDS SUMMARY | 2024-04-17 01:24 | XMS_ITS | Encounter Summary ---
Author Organization [facility] [place] [address] Care Team Providers Care Acetone Recovery Worker Name Role Phone Julia Chatterjee MD Primary Care Provider [phone] Reason for Visit * Reason Comments Injections Zarxio Encounter Details Date Type Department Care Team (Late Contact Info) Description 09/22/2019 12:00 PM EDT Infusion Hematology Oncology at [address] [phone] Neutropenia, unspecified type Social History Tobacco Use [...] Scheduled View Only Radiation Oncology at [address] [phone] 04/20/2024 12:45 PM EST Scheduled View Only Radiation Oncology at [address] [address] 04/21/2024 10:45 AM EST Scheduled View Only Radiation Oncology at [address] [address] 04/21/2024 11:00 AM EST Office Visit Radiation Oncology at [address] [address] Radha Casiano MD [facility] [place] [address] 04/22/2024 3:00 PM EST Scheduled View Only Radiation Oncology at [address] [address] 04/23/2024 3:00 PM EST Scheduled View Only Radiation Oncology at [address] [address] 04/24/2024 3:00 PM EST Scheduled View Only Radiation Oncology at [address] [address] 04/27/2024 11:15 AM EST Scheduled View Only Radiation Oncology at [address] [address] 04/28/2024 11:30 AM EST Scheduled View Only Radiation Oncology at [address] [address] 04/28/2024 12:00 PM EST Office Visit Radiation Oncology at [address] [address] Radha Casiano MD [facility] [place] [address] 04/28/2024 2:00 PM EST Office Visit Cardiology at [address] [phone] Letty Montejo, CLINICAL NURSING COORDINATOR [facility] [place] [address] 04/29/2024 11:15 AM EST Scheduled View Only Radiation Oncology at [address] [address] 04/30/2024 11:30 AM EST Scheduled View Only Radiation Oncology at [address] [address] 05/01/2024 11:15 AM EST Scheduled View Only Radiation Oncology at [address] [address] 05/04/2024 10:45 AM EST Scheduled View Only Radiation Oncology at [address] [address] 05/05/2024 1:00 PM EST Scheduled View Only Radiation Oncology at [address] [address] 05/05/2024 1:15 PM EST Office Visit Radiation Oncology at [address] [address] Radha Casiano MD [facility] [place] [address] 05/06/2024 1:00 PM EST Scheduled View Only Radiation Oncology at [address] [address] 05/07/2024 1:00 PM EST Scheduled View Only Radiation Oncology at [address] [address] 05/08/2024 1:00 PM EST Scheduled View Only Radiation Oncology at [address] [address] 05/11/2024 11:30 AM EST Scheduled View Only Radiation Oncology at [address] [address] 01/13/2025 1:00 PM EST Office Visit Hematology/Oncology at [address] [address] Lee Ann Jay MD [facility] DR [place] [address] Leti Anderson APRN [facility] [place] [address] documented as of this encounter Visit Diagnoses [...] Tissue documented in this encounter Care Teams Acetone Recovery Worker Relationship Specialty Start Date End Date Julia Chatterjee MD [facility] [address] [place] [address] PCP - General 01/31/10 documented as of this encounter
--- OUTSIDE RECORDS SUMMARY | 2024-04-17 01:24 | XMS_ITS | Encounter Summary ---
Author Organization [facility] [place] [address] Care Team Providers Care Feather Baler Name Role Phone Julia Chatterjee MD Primary Care Provider [phone] Encounter Details Date Type Department Care Team (Late st Contact Info) Description 09/21/2019 Orders Only Hematology [place] [address] Lee Ann Jay MD [facility] DR HEMATOLOGY [place] [address] Social History Tobacco Use Types Packs/Day Years [...] Scheduled View Only Radiation Oncology at [address] [address] 04/20/2024 12:45 PM EST Scheduled View Only Radiation Oncology at [address] [address] 04/21/2024 10:45 AM EST Scheduled View Only Radiation Oncology at [address] [address] 04/21/2024 11:00 AM EST Office Visit Radiation Oncology at [address] [address] Radha Casiano MD [facility] [place] [address] 04/22/2024 3:00 PM EST Scheduled View Only Radiation Oncology at [address] [address] 04/23/2024 3:00 PM EST Scheduled View Only Radiation Oncology at [address] [address] 04/24/2024 3:00 PM EST Scheduled View Only Radiation Oncology at [address] [address] 04/27/2024 11:15 AM EST Scheduled View Only Radiation Oncology at [address] [address] 04/28/2024 11:30 AM EST Scheduled View Only Radiation Oncology at [address] [address] 04/28/2024 12:00 PM EST Office Visit Radiation Oncology at [address] [address] Radha Casiano MD [facility] [place] [address] 04/28/2024 2:00 PM EST Office Visit Cardiology at [address] [place] [address] Letty Montejo, CABLE STRETCHER AND TESTER [facility] [place] [address] 04/29/2024 11:15 AM EST Scheduled View Only Radiation Oncology at [address] [address] 04/30/2024 11:30 AM EST Scheduled View Only Radiation Oncology at [address] [address] 05/01/2024 11:15 AM EST Scheduled View Only Radiation Oncology at [address] [address] 05/04/2024 10:45 AM EST Scheduled View Only Radiation Oncology at [address] [address] 05/05/2024 1:00 PM EST Scheduled View Only Radiation Oncology at [address] [address] 05/05/2024 1:15 PM EST Office Visit Radiation Oncology at [address] [address] Radha Casiano MD [facility] [place] [address] 05/06/2024 1:00 PM EST Scheduled View Only Radiation Oncology at [address] [address] 05/07/2024 1:00 PM EST Scheduled View Only Radiation Oncology at [address] [address] 05/08/2024 1:00 PM EST Scheduled View Only Radiation Oncology at [address] [address] 05/11/2024 11:30 AM EST Scheduled View Only Radiation Oncology at [address] [address] 01/13/2025 1:00 PM EST Office Visit Hematology/Oncology at [address] [address] Lee Ann Jay MD [facility] HEMATOLOGY [place] [address] Leti Anderson APRN [facility] HEMATOLOGY [place] [address] documented as of this encounter Visit Diagnoses Not on filedocumented in this encounter Care Teams Feather Baler Relationship Specialty Start Date End Date Julia Chatterjee MD [address]ushant [address] [facility] 1 [place] [address] PCP - General 01/31/10 documented as of this encounter
--- OUTSIDE RECORDS SUMMARY | 2024-04-17 01:24 | XMS_ITS | Encounter Summary ---
Author Organization [facility] [place] [address] Care Team Providers Care Supervisor Aircraft Maintenance Name Role Phone Julia Chatterjee MD Primary Care Provider [phone] Reason for Visit * Reason Comments Injections GCSF Encounter Details Date Type Department Care Team (Late st Contact Info) Description 10/21/2019 10:00 AM EDT Infusion Hematology Oncology at [address] [address] Large granular lymphocytic leukemia Social [...] EST Scheduled View Only Radiation Oncology at [address] [address] 04/20/2024 12:45 PM EST Scheduled View Only Radiation Oncology at [address] [address] 04/21/2024 10:45 AM EST Scheduled View Only Radiation Oncology at [address] [address] 04/21/2024 11:00 AM EST Office Visit Radiation Oncology at [address] [address] Radha Casiano MD [facility] [place] [address] 04/22/2024 3:00 PM EST Scheduled View Only Radiation Oncology at [address] [address] 04/23/2024 3:00 PM EST Scheduled View Only Radiation Oncology at [address] [address] 04/24/2024 3:00 PM EST Scheduled View Only Radiation Oncology at [address] [address] 04/27/2024 11:15 AM EST Scheduled View Only Radiation Oncology at [address] [address] 04/28/2024 11:30 AM EST Scheduled View Only Radiation Oncology at [address] [address] 04/28/2024 12:00 PM EST Office Visit Radiation Oncology at [address] [address] Radha Casiano MD [facility] [place] [address] 04/28/2024 2:00 PM EST Office Visit Cardiology at [address] [place] [address] Letty Montejo APRN [facility] DR [place] [address] 04/29/2024 11:15 AM EST Scheduled View Only Radiation Oncology at [address] [address] 04/30/2024 11:30 AM EST Scheduled View Only Radiation Oncology at [address] [address] 05/01/2024 11:15 AM EST Scheduled View Only Radiation Oncology at [address] [address] 05/04/2024 10:45 AM EST Scheduled View Only Radiation Oncology at [address] [address] 05/05/2024 1:00 PM EST Scheduled View Only Radiation Oncology at [address] [address] 05/05/2024 1:15 PM EST Office Visit Radiation Oncology at [address] [address] Radha Casiano MD [facility] [place] [address] 05/06/2024 1:00 PM EST Scheduled View Only Radiation Oncology at [address] [address] 05/07/2024 1:00 PM EST Scheduled View Only Radiation Oncology at [address] [address] 05/08/2024 1:00 PM EST Scheduled View Only Radiation Oncology at [address] [address] 05/11/2024 11:30 AM EST Scheduled View Only Radiation Oncology at [address] [address] 01/13/2025 1:00 PM EST Office Visit Hematology/Oncology at [address] [address] Lee Ann Jay MD [facility] DR HEMATOLOG[place] [address] Leti Anderson APRN [facility] DR HEMAT[place] [address] documented as of this encounter Visit Diagnoses [...] Quadrant documented in this encounter Care Teams Supervisor Aircraft Maintenance Relationship Specialty Start Date End Date Julia Chatterjee MD [facility] [address] [place] [address] PCP - General 01/31/10 documented as of this encounter
--- OUTSIDE RECORDS SUMMARY | 2024-04-17 01:24 | XMS_ITS | Encounter Summary ---
Author Organization [facility] [place] [address] Care Team Providers Care Reverser Name Role Phone Julia Chatterjee MD Primary Care Provider [phone] Reason for Visit * Reason Comments Injections Zarxio Encounter Details Date Type Department Care Team (Late Contact Info) Description 09/25/2019 1:00 PM EDT Infusion Hematology Oncology at [address] [phone] Neutropenia, unspecified type Social History Tobacco Use [...] EST Scheduled View Only Radiation Oncology at [address] [phone] 04/20/2024 12:45 PM EST Scheduled View Only Radiation Oncology at [address] [address] 04/21/2024 10:45 AM EST Scheduled View Only Radiation Oncology at [address] [address] 04/21/2024 11:00 AM EST Office Visit Radiation Oncology at [address] [phone] Radha Casiano MD [facility] [place] [address] 04/22/2024 3:00 PM EST Scheduled View Only Radiation Oncology at [address] [phone] 04/23/2024 3:00 PM EST Scheduled View Only Radiation Oncology at [address] [address] 04/24/2024 3:00 PM EST Scheduled View Only Radiation Oncology at [address] [address] 04/27/2024 11:15 AM EST Scheduled View Only Radiation Oncology at [address] [address] 04/28/2024 11:30 AM EST Scheduled View Only Radiation Oncology at [address] [address] 04/28/2024 12:00 PM EST Office Visit Radiation Oncology at [address] [address] Radha Casiano MD [facility] [place] [address] 04/28/2024 2:00 PM EST Office Visit Cardiology at [address] [phone] Letty Montejo, DIRECTOR OF CONSERVATION [facility] [place] [address] 04/29/2024 11:15 AM EST Scheduled View Only Radiation Oncology at [address] [address] 04/30/2024 11:30 AM EST Scheduled View Only Radiation Oncology at [address] [address] 05/01/2024 11:15 AM EST Scheduled View Only Radiation Oncology at [address] [address] 05/04/2024 10:45 AM EST Scheduled View Only Radiation Oncology at [address] [address] 05/05/2024 1:00 PM EST Scheduled View Only Radiation Oncology at [address] [address] 05/05/2024 1:15 PM EST Office Visit Radiation Oncology at [address] [address] Radha Casiano MD [facility] [place] [address] 05/06/2024 1:00 PM EST Scheduled View Only Radiation Oncology at [address] [address] 05/07/2024 1:00 PM EST Scheduled View Only Radiation Oncology at [address] [address] 05/08/2024 1:00 PM EST Scheduled View Only Radiation Oncology at [address] [address] 05/11/2024 11:30 AM EST Scheduled View Only Radiation Oncology at [address] [address] 01/13/2025 1:00 PM EST Office Visit Hematology/Oncology at [address] [phone] Lee Ann Jay MD [facility] DR HEMATOLOGY [place] [address] Leti Anderson APRN [facility] HEMATOLOGY [place] [address] documented as of this encounter Visit Diagnoses [...] Tissue documented in this encounter Care Teams Reverser Relationship Specialty Start Date End Date Julia Chatterjee MD [facility] [address] [place] [address] PCP - General 01/31/10 documented as of this encounter
--- OUTSIDE RECORDS SUMMARY | 2024-04-17 01:24 | XMS_ITS | Encounter Summary ---
Author Organization [facility] Address [facility] [place] [address] Care Team Providers Care Wellness Rn Name Role Phone Julia Chatterjee MD Primary Care Provider [phone] Encounter Details Date Type Department Care Team (Latest Contact Info) Description 11/02/2019 9:00 AM EDT TH Visit (TeleHealth) [place] [address] Yola Oliveros MD [facility] [place] [address] Other ulcerative colitis with complication Social History [...] help much - Followed with a local meat soaker and used dietary supplements to maintain remission - Did well until August 2019 when she developed abdominal pain, fevers, loose stool. [facility] to [facility] andd CT showing inflamed colon. Flex [...] past surgical history that includes Colonoscopy, Biopsy (04482) (07/05/2011); Colonoscopy, Remv Lesn, Snare (45387) (07/05/2011); Bone Marrow Aspiration W/Bx Through Same Incision/Site (G0364) (Right, 01/08/2017); Bone Marrow Bx, Needle/Trocar (30596) (Right, 01/08/2017);CT Guided Aspiration Liver (09/02/2019); Sigmoidoscopy, Diagnostic (03070) (N/A, 09/02/2019); IR Drain Check/Change/Remove (09/28/2019); and Colonoscopy, Biopsy (63114) (N/A, 10/22/2019). Family History: family history is [...] that oral + rectal therapy has been penitentiary outcomes than either alone. We discussed that the goal of therapy is to prevent tutor complications of uncontrolled inflammation such as colon [...] and discussed with Dr. Domo Dobson MD [facility] [place] [address] ATTENDING ADDENDUM I interviewed Leti Parry with [...] the issues outlined above. Marija Oliveros MD Home Office Representativelead developer Co-Director, [facility] Section of Gastroenterology and [facility]atology [facility] [place] [address] documented in this encounter Plan of Treatment Upcoming Encounters Date Type Department Care Team (Late st Contact Info) Description 04/17/2024 2:30 PM EST Scheduled View Only Radiation Oncology at [address] [address] 04/20/2024 12:45 PM EST Scheduled View Only Radiation Oncology at [address] [address] 04/21/2024 10:45 AM EST Scheduled View Only Radiation Oncology at [address] [address] 04/21/2024 11:00 AM EST Office Visit Radiation Oncology at [address] [address] Radha Casiano MD [facility] [place] [place] [address] 04/22/2024 3:00 PM EST Scheduled View Only Radiation Oncology at [address] [address] 04/23/2024 3:00 PM EST Scheduled View Only Radiation Oncology at [address] [address] 04/24/2024 3:00 PM EST Scheduled View Only Radiation Oncology at [address] [address] 04/27/2024 11:15 AM EST Scheduled View Only Radiation Oncology at [address] [address] 04/28/2024 11:30 AM EST Scheduled View Only Radiation Oncology at [address] [address] 04/28/2024 12:00 PM EST Office Visit Radiation Oncology at [address] [address] Radha Casiano MD [facility] [place] [address] 04/28/2024 2:00 PM EST Office Visit Cardiology at [address] [place] [address] Letty Montejo APRN [facility] [place] [address] 04/29/2024 11:15 AM EST Scheduled View Only Radiation Oncology at [address] [address] 04/30/2024 11:30 AM EST Scheduled View Only Radiation Oncology at [address] [address] 05/01/2024 11:15 AM EST Scheduled View Only Radiation Oncology at [address] [address] 05/04/2024 10:45 AM EST Scheduled View Only Radiation Oncology at [address] [address] 05/05/2024 1:00 PM EST Scheduled View Only Radiation Oncology at [address] [address] 05/05/2024 1:15 PM EST Office Visit Radiation Oncology at [address] [address] Radha Casiano MD [facility] [place] [address] 05/06/2024 1:00 PM EST Scheduled View Only Radiation Oncology at [address] [address] 05/07/2024 1:00 PM EST Scheduled View Only Radiation Oncology at [address] [address] 05/08/2024 1:00 PM EST Scheduled View Only Radiation Oncology at [address] [address] 05/11/2024 11:30 AM EST Scheduled View Only Radiation Oncology at [address] [address] 01/13/2025 1:00 PM EST Office Visit Hematology/Oncology at [address] [address] Lee Ann Jay MD [facility] DR HEMATOLOGY [place] [address] Leti Anderson APRN [facility] HEMATOLOGY [place] [address] documented as of this encounter Visit Diagnoses Diagnosis Other ulcerative colitis with complication documented in this encounter Care Teams Wellness Rn Relationship Specialty Start Date End Date Julia Chatterjee MD [facility] [address] [place] [address] PCP - General 01/31/10 documented as of this encounter
--- OUTSIDE RECORDS SUMMARY | 2024-04-17 01:24 | XMS_ITS | Encounter Summary ---
Author Organization [facility] Address [facility] [place] [address] Care Team Providers Care Manager Aviation Name Role Phone Julia Chatterjee MD Primary Care Provider [phone] Encounter Details Date Type Department Care Team (Late st Contact Info) Description 10/14/2019 9:30 AM EDT Office Visit Hematology/Oncology at [address] [address] Lee Ann Jay MD [facility] DR [place] [address] Large granular lymphocytic leukemia Social History Tobacco [...] Ulcerative colitis Diagnosed around 2011. Worked with physician scientist with resolution of symptoms food based supplements [...] flow ) are being pursued at the [place] labs. Should ??cytopenias persist , it may [...] she took IV ATB per ID at [facility]. We supported her with GCSF as well. [...] LIVER 09/02/2019 CT Guided Aspiration Liver 09/02/2019 [facility] RAD CAT SCAN ??? IR DRAIN CHECK/CHANGE/REMOVE 09/28/2019 IR Drain Check/Change/Remove 09/28/2019 Cliff Langston MD [facility] INTERVENTIONL RAD ??? PRO BONE MARROW ASPIRATION W/BX THROUGH SAME INCISION/SITE Right 01/08/2017 ([facility]) BONE MARROW ASP PERFORMED W/BX THRU BX INCISION (WRVU 0.16) performed by Lee Ann Jay MD at [facility] OSC ??? PRO BONE MARROW BX, NEEDLE/TROCAR Right 01/08/2017 ([facility]) BONE MARROW,BIOPSY (WRVU 1.37) performed by Lee Ann Jay MD at [facility] OSC ??? PRO COLONOSCOPY, BIOPSY 07/05/2011 COLONOSCOPY FLEXIBLE, WITH BX performed by AYAZ NELSON at [facility] ENDOSCOPY ??? PRO COLONOSCOPY, REMV LESN, SNARE 07/05/2011 COLONOSCOPY, POLYPECTOMY, REMOVAL LESION BY SNARE performed by AYAZ NELSON at [facility] ENDOSCOPY ??? PRO SIGMOIDOSCOPY, DIAGNOSTIC N/A 09/02/2019 FLEXIBLE SIGMOIDOSCOPY performed by Ayaz Nelson MD at [facility] ENDOSCOPY Medications; Current Outpatient Medications [...] low white counts. Social History: Lives in [place]. . 1 son 38 years old- healthy. 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 Should ??cytopenias persist , it may [...] receptor gene rearrangement detected. Radiology: US at [facility] 11/2016. Liver 14.5 cm. Spleen 8cm. Assessment and Recommendations: 68 y.o. Healthy female who has been referred to us for leukopenia. She has had leukopenia since 2006 with normal hemoglobin and platelet. She has no symptoms- no increased frequency of infections. 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 She has been working with a physician scientist who started her on selenium and zinc and about a dozen other supplements. Counts are a bit higher so we will see. Hand Mexican Food Maker has been helping her with bowel issues. These are better w/ diet adjustments. Diet changes have helped her UC and GI symptoms. Of note, she is on multiple naturopathic medications through her insulation board back tender - mostly to help w/ herGI tract. [...] 480mcg the day before 11/05/19 colonoscopy at [facility] ?? rtc in 6 mos with cbc, cmp I discussed all of the above with the patient and all of her questions were answered. Support and counseling given as appropriate. This note was written or modified using FIRE1 voice recognition software. The final note was screened for mistakes. Please excuse any remaining errors. documented in this encounter Plan of Treatment Upcoming Encounters Date Type Department Care Team (Late st Contact Info) Description 04/17/2024 2:30 PM EST Scheduled View Only Radiation Oncology at [address] [address] 04/20/2024 12:45 PM EST Scheduled View Only Radiation Oncology at [address] [address] 04/21/2024 10:45 AM EST Scheduled View Only Radiation Oncology at [address] [address] 04/21/2024 11:00 AM EST Office Visit Radiation Oncology at [address] [address] Radha Casiano MD [facility] [place] [address] 04/22/2024 3:00 PM EST Scheduled View Only Radiation Oncology at [address] [address] 04/23/2024 3:00 PM EST Scheduled View Only Radiation Oncology at [address] [address] 04/24/2024 3:00 PM EST Scheduled View Only Radiation Oncology at [address] [address] 04/27/2024 11:15 AM EST Scheduled View Only Radiation Oncology at [address] [address] 04/28/2024 11:30 AM EST Scheduled View Only Radiation Oncology at [address] [address] 04/28/2024 12:00 PM EST Office Visit Radiation Oncology at [address] [address] Radha Casiano MD [facility] [place] [address] 04/28/2024 2:00 PM EST Office Visit Cardiology at [address] [place] [address] Letty Montejo, JAYLEN [facility] [place] [address] 04/29/2024 11:15 AM EST Scheduled View Only Radiation Oncology at [address] [address] 04/30/2024 11:30 AM EST Scheduled View Only Radiation Oncology at [address] [address] 05/01/2024 11:15 AM EST Scheduled View Only Radiation Oncology at [address] [address] 05/04/2024 10:45 AM EST Scheduled View Only Radiation Oncology at [address] [address] 05/05/2024 1:00 PM EST Scheduled View Only Radiation Oncology at [address] [address] 05/05/2024 1:15 PM EST Office Visit Radiation Oncology at [address] [address] Radha Casiano MD [facility] [place] [address] 05/06/2024 1:00 PM EST Scheduled View Only Radiation Oncology at [address] [address] 05/07/2024 1:00 PM EST Scheduled View Only Radiation Oncology at [address] [address] 05/08/2024 1:00 PM EST Scheduled View Only Radiation Oncology at [address] [address] 05/11/2024 11:30 AM EST Scheduled View Only Radiation Oncology at [address] [address] 01/13/2025 1:00 PM EST Office Visit Hematology/Oncology at [address] [address] Lee Ann Jay MD [facility] [place] [address] Leti Anderson APRN [facility] [place] [address] documented as of this encounter Visit Diagnoses Diagnosis 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, without mention of having achieved remission documented in this encounter Care Teams Manager Aviation Relationship Specialty Start Date End Date Julia Chatterjee MD [facility] [address] [place] [address] PCP - General 01/31/10 documented as of this encounter
--- OUTSIDE RECORDS SUMMARY | 2024-04-17 01:24 | XMS_ITS | Encounter Summary ---
Author Organization [facility] [place] [address] Care Team Providers Care Cleaners Name Role Phone Julia Chatterjee MD Primary Care Provider [phone] Encounter Details Date Type Department Care Team (Late st Contact Info) Description 10/16/2019 Telephone [place] [address] Bertha Nuñez RN Social History [...] needs to call the GI on doctor die cutter diamond to discuss. If any symptoms which pt [...] Scheduled View Only Radiation Oncology at [address] [address] 04/20/2024 12:45 PM EST Scheduled View Only Radiation Oncology at [address] [address] 04/21/2024 10:45 AM EST Scheduled View Only Radiation Oncology at [address] [address] 04/21/2024 11:00 AM EST Office Visit Radiation Oncology at [address] [address] Radha Casiano MD [facility] DR RADI[place] [address] 04/22/2024 3:00 PM EST Scheduled View Only Radiation Oncology at [address] [address] 04/23/2024 3:00 PM EST Scheduled View Only Radiation Oncology at [address] [address] 04/24/2024 3:00 PM EST Scheduled View Only Radiation Oncology at [address] [address] 04/27/2024 11:15 AM EST Scheduled View Only Radiation Oncology at [address] [address] 04/28/2024 11:30 AM EST Scheduled View Only Radiation Oncology at [address] [address] 04/28/2024 12:00 PM EST Office Visit Radiation Oncology at [address] [address] Radha Casiano MD [facility] [place] [address] 04/28/2024 2:00 PM EST Office Visit Cardiology at [address] [place] [address] Letty Montejo APRN [facility] [place] [address] 04/29/2024 11:15 AM EST Scheduled View Only Radiation Oncology at [address] [address] 04/30/2024 11:30 AM EST Scheduled View Only Radiation Oncology at [address] [address] 05/01/2024 11:15 AM EST Scheduled View Only Radiation Oncology at [address] [address] 05/04/2024 10:45 AM EST Scheduled View Only Radiation Oncology at [address] [address] 05/05/2024 1:00 PM EST Scheduled View Only Radiation Oncology at [address] [address] 05/05/2024 1:15 PM EST Office Visit Radiation Oncology at [address] [address] Radha Casiano MD [facility] [place] [address] 05/06/2024 1:00 PM EST Scheduled View Only Radiation Oncology at [address] [address] 05/07/2024 1:00 PM EST Scheduled View Only Radiation Oncology at [address] [address] 05/08/2024 1:00 PM EST Scheduled View Only Radiation Oncology at [address] [address] 05/11/2024 11:30 AM EST Scheduled View Only Radiation Oncology at [address] [address] 01/13/2025 1:00 PM EST Office Visit Hematology/Oncology at [address] [address] Lee Ann Jay MD [facility] DR [place] [address] Leti Anderson APRN [facility] [place] [address] documented as of this encounter Visit Diagnoses Not on filedocumented in this encounter Care Teams Cleaners Relationship Specialty Start Date End Date Julia Chatterjee MD [facility] KINA [address] [place] [address] PCP - General 01/31/10 documented as of this encounter
--- OUTSIDE RECORDS SUMMARY | 2024-04-17 01:24 | XMS_ITS | Encounter Summary ---
Author Organization [facility] [place] [address] Care Team Providers Care Paster Operator Name Role Phone Julia Chatterjee MD Primary Care Provider [phone] Encounter Details Date Type Department Care Team (Late st Contact Info) Description 09/21/2019 Notes [place] [address] Mylene Bailey, RN Social History Tobacco Use [...] Discharge IV Antibiotic Management To: Briana King [phone] Specialty: ID Diagnosis: Liver Abscess s/p drain [...] Infectious Disease Attending: Briana King DO 14:50: Printer Assistant received a call from Magalis riddle at [facility] with critical lab results from today: WBC: 1.78, ANC: 0.29. In Basket message with high priority sent to Dr. Briana King (away), Dr. Lee Ann Jay. B Attending Dr. Ioana Yung also notified via page. Mylene Bailey RN, OPAT Program Pager: [phone] documented in this encounter Plan of Treatment Upcoming Encounters Date Type Department Care Team (Late st Contact Info) Description 04/17/2024 2:30 PM EST Scheduled View Only Radiation Oncology at [address] [address] 04/20/2024 12:45 PM EST Scheduled View Only Radiation Oncology at [address] [address] 04/21/2024 10:45 AM EST Scheduled View Only Radiation Oncology at [address] [address] 04/21/2024 11:00 AM EST Office Visit Radiation Oncology at [address] [address] Radha Casiano MD [facility] [place] [address] 04/22/2024 3:00 PM EST Scheduled View Only Radiation Oncology at [address] [address] 04/23/2024 3:00 PM EST Scheduled View Only Radiation Oncology at [address] [address] 04/24/2024 3:00 PM EST Scheduled View Only Radiation Oncology at [address] [address] 04/27/2024 11:15 AM EST Scheduled View Only Radiation Oncology at [address] [address] 04/28/2024 11:30 AM EST Scheduled View Only Radiation Oncology at [address] [address] 04/28/2024 12:00 PM EST Office Visit Radiation Oncology at [address] [address] Radha Casiano MD [facility] [place] [address] 04/28/2024 2:00 PM EST Office Visit Cardiology at [address] [address] Letty Montejo APRN [facility] [place] [address] 04/29/2024 11:15 AM EST Scheduled View Only Radiation Oncology at [address] [address] 04/30/2024 11:30 AM EST Scheduled View Only Radiation Oncology at [address] [address] 05/01/2024 11:15 AM EST Scheduled View Only Radiation Oncology at [address] [address] 05/04/2024 10:45 AM EST Scheduled View Only Radiation Oncology at [address] [address] 05/05/2024 1:00 PM EST Scheduled View Only Radiation Oncology at [address] [address] 05/05/2024 1:15 PM EST Office Visit Radiation Oncology at [address] [address] Radha Casiano MD [facility] [address] 05/06/2024 1:00 PM EST Scheduled View Only Radiation Oncology at [address] [address] 05/07/2024 1:00 PM EST Scheduled View Only Radiation Oncology at [address] [address] 05/08/2024 1:00 PM EST Scheduled View Only Radiation Oncology at [address] [address] 05/11/2024 11:30 AM EST Scheduled View Only Radiation Oncology at [address] [address] 01/13/2025 1:00 PM EST Office Visit Hematology/Oncology at [address] [address] Lee Ann Jay MD [facility] [place] [address] Leti Anderson APRN [facility] [place] [address] documented as of this encounter Visit Diagnoses Not on filedocumented in this encounter Care Teams Paster Operator Relationship Specialty Start Date End Date Julia Chatterjee MD [facility] [address] [place] [address] PCP - General 01/31/10 documented as of this encounter
--- OUTSIDE RECORDS SUMMARY | 2024-04-17 01:24 | XMS_ITS | Encounter Summary ---
Author Organization [facility] [place] [address] Care Team Providers Care Frothing Machine Operator Name Role Phone Julia Chatterjee MD Primary Care Provider [phone] Reason for Visit * Reason Onset Date Comments Questions 09/23/2019 Encounter Details Date Type Department Care Team (Late st Contact Info) Description 09/23/2019 Telephone Hematology/Oncology at [address] [address] Vicky Madrigal RN Questions Social History Tobacco Use Types [...] AM EDT Called and spoke with Leti Groverose regarding her Neupogen injections. She requests we check CBC first rather than getting Neupogen if she does not require it. She can have CBC checked and if ANC >1000 will hold off on Neupogen per Dr Jay. She reports she can have Home Health draw CBC 09/24 morning (which goes to [facility]) and will review results and schedule Neupogen appt if needed. documented in this encounter Plan of Treatment Upcoming Encounters Date Type Department Care Team (Late st Contact Info) Description 04/17/2024 2:30 PM EST Scheduled View Only Radiation Oncology at [address] [address] 04/20/2024 12:45 PM EST Scheduled View Only Radiation Oncology at [address] [address] 04/21/2024 10:45 AM EST Scheduled View Only Radiation Oncology at [address] [address] 04/21/2024 11:00 AM EST Office Visit Radiation Oncology at [address] [address] Radha Casiano MD [facility] [address] [place] [address] 04/22/2024 3:00 PM EST Scheduled View Only Radiation Oncology at [address] [address] 04/23/2024 3:00 PM EST Scheduled View Only Radiation Oncology at [address] [address] 04/24/2024 3:00 PM EST Scheduled View Only Radiation Oncology at [address] [address] 04/27/2024 11:15 AM EST Scheduled View Only Radiation Oncology at [address] [address] 04/28/2024 11:30 AM EST Scheduled View Only Radiation Oncology at [address] [address] 04/28/2024 12:00 PM EST Office Visit Radiation Oncology at [address] [address] Radha Casiano MD [facility] [place] [address] 04/28/2024 2:00 PM EST Office Visit Cardiology at [address] [place] [address] Letty Montejo APRN [facility] [place] [address] 04/29/2024 11:15 AM EST Scheduled View Only Radiation Oncology at [address] [address] 04/30/2024 11:30 AM EST Scheduled View Only Radiation Oncology at [address] [address] 05/01/2024 11:15 AM EST Scheduled View Only Radiation Oncology at [address] [address] 05/04/2024 10:45 AM EST Scheduled View Only Radiation Oncology at [address] [address] 05/05/2024 1:00 PM EST Scheduled View Only Radiation Oncology at [address] [address] 05/05/2024 1:15 PM EST Office Visit Radiation Oncology at [address] [address] Radha Casiano MD [facility] [place] [address] 05/06/2024 1:00 PM EST Scheduled View Only Radiation Oncology at [address] [address] 05/07/2024 1:00 PM EST Scheduled View Only Radiation Oncology at [address] [address] 05/08/2024 1:00 PM EST Scheduled View Only Radiation Oncology at [address] [address] 05/11/2024 11:30 AM EST Scheduled View Only Radiation Oncology at [address] [address] 01/13/2025 1:00 PM EST Office Visit Hematology/Oncology at [address] [address] Lee Ann Jay MD [facility] [place] [address] Leti Anderson APRN [facility] [place] [address] documented as of this encounter Visit Diagnoses Not on filedocumented in this encounter Care Teams Frothing Machine Operator Relationship Specialty Start Date End Date Julia Chatterjee MD [facility] [address] [facility] [address] [place] [address] PCP - General 01/31/10 documented as of this encounter
--- OUTSIDE RECORDS SUMMARY | 2024-04-17 01:24 | XMS_ITS | Encounter Summary ---
Author Organization [facility] [place] [address] Care Team Providers Care Php Web Developer Name Role Phone Julia Chatterjee MD Primary Care Provider [phone] Reason for Visit * Reason Onset Date Comments Abnormal Lab 10/09/2019 ANC Encounter Details Date Type Department Care Team (Late st Contact Info) Description 10/09/2019 Telephone Hematology Oncology at [address] [address] Billie Diaz RN Abnormal Lab [...] make an appt to have labs at [facility] the day before her appt with [...] Scheduled View Only Radiation Oncology at [address] [address] 04/20/2024 12:45 PM EST Scheduled View Only Radiation Oncology at [address] [address] 04/21/2024 10:45 AM EST Scheduled View Only Radiation Oncology at [address] [address] 04/21/2024 11:00 AM EST Office Visit Radiation Oncology at [address] [address] [facility] [place] [address] 04/22/2024 3:00 PM EST Scheduled View Only Radiation Oncology at [address] [address] 04/23/2024 3:00 PM EST Scheduled View Only Radiation Oncology at [address] [address] 04/24/2024 3:00 PM EST Scheduled View Only Radiation Oncology at [address] [address] 04/27/2024 11:15 AM EST Scheduled View Only Radiation Oncology at [address] [address] 04/28/2024 11:30 AM EST Scheduled View Only Radiation Oncology at [address] [address] 04/28/2024 12:00 PM EST Office Visit Radiation Oncology at [address] [address] [facility] [place] [address] 04/28/2024 2:00 PM EST Office Visit Cardiology at [address] [place] [address] Letty Montejo APRN [facility] [place] [address] 04/29/2024 11:15 AM EST Scheduled View Only Radiation Oncology at [address] [address] 04/30/2024 11:30 AM EST Scheduled View Only Radiation Oncology at [address] [address] 05/01/2024 11:15 AM EST Scheduled View Only Radiation Oncology at [address] [address] 05/04/2024 10:45 AM EST Scheduled View Only Radiation Oncology at [address] [address] 05/05/2024 1:00 PM EST Scheduled View Only Radiation Oncology at [address] [address] 05/05/2024 1:15 PM EST Office Visit Radiation Oncology at [address] [address] [facility] [place] [address] 05/06/2024 1:00 PM EST Scheduled View Only Radiation Oncology at [address] [address] 05/07/2024 1:00 PM EST Scheduled View Only Radiation Oncology at [address] [address] 05/08/2024 1:00 PM EST Scheduled View Only Radiation Oncology at [address] [address] 05/11/2024 11:30 AM EST Scheduled View Only Radiation Oncology at [address] [address] 01/13/2025 1:00 PM EST Office Visit Hematology/Oncology at [address] [address] Lee [address] [facility] DR HEMATOLOGY [place] [address] [facility] HEMATOLOGY [place] [address] documented as of this encounter Procedures Procedure Name Priority Date/Time Associated Diagnosis Comments CBC (WITH DIFF) Routine 10/09/2019 documented in this encounter Results * CBC (with Diff) (10/09/2019) White Blood Cell 2.10 Hemoglobin 12.3 Hematocrit 38.6 Platelet 240 Neutrophil Absolute (ANC) - Automated 0.33 Blood specimen (specimen) 10/09/2019 Lee Ann Jay MD HEMATOLOGY ORDER ASHLEY documented in this encounter Visit Diagnoses Not on filedocumented in this encounter Care Teams Php Web Developer Relationship Specialty Start Date End Date Julia Chatterjee MD [address] [place] [address] PCP - General 01/31/10 documented as of this encounter
--- OUTSIDE RECORDS SUMMARY | 2024-04-17 01:24 | XMS_ITS | Encounter Summary ---
[place] [address] Care Team Providers Care Forge Utility Worker Name Role Phone Julia Chatterjee MD Primary Care Provider Reason for Visit * Reason Comments Reminder Appointment Encounter Details Date Type Department Care Team (Late Contact Info) Description 11/02/2019 Telephone [place] [phone] Adia Angel CMA Reminder Appointment Social History Tobacco Use Types [...] EST Scheduled View Only Radiation Oncology at [address] [phone] 04/20/2024 12:45 PM EST Scheduled View Only Radiation Oncology at [address] [address] 04/21/2024 10:45 AM EST Scheduled View Only Radiation Oncology at [address] [address] 04/21/2024 11:00 AM EST Office Visit Radiation Oncology at [address] [address] Radha Casiano MD [facility] [place] [address] 04/22/2024 3:00 PM EST Scheduled View Only Radiation Oncology at [address] [address] 04/23/2024 3:00 PM EST Scheduled View Only Radiation Oncology at [address] [address] 04/24/2024 3:00 PM EST Scheduled View Only Radiation Oncology at [address] [address] 04/27/2024 11:15 AM EST Scheduled View Only Radiation Oncology at [address] [address] 04/28/2024 11:30 AM EST Scheduled View Only Radiation Oncology at [address] [address] 04/28/2024 12:00 PM EST Office Visit Radiation Oncology at [address] [address] Radha Casiano MD [facility] [place] [address] 04/28/2024 2:00 PM EST Office Visit Cardiology at [address] [place] [phone] Letty Montejo, FIRE DEPARTMENT BATTALION CHIEF [facility] [place] [place] [address] 04/29/2024 11:15 AM EST Scheduled View Only Radiation Oncology at [address] [address] 04/30/2024 11:30 AM EST Scheduled View Only Radiation Oncology at [address] [address] 05/01/2024 11:15 AM EST Scheduled View Only Radiation Oncology at [address] [address] 05/04/2024 10:45 AM EST Scheduled View Only Radiation Oncology at [address] [address] 05/05/2024 1:00 PM EST Scheduled View Only Radiation Oncology at [address] [address] 05/05/2024 1:15 PM EST Office Visit Radiation Oncology at [address] [address] Radha Casiano MD [facility] [place] [address] 05/06/2024 1:00 PM EST Scheduled View Only Radiation Oncology at [address] [address] 05/07/2024 1:00 PM EST Scheduled View Only Radiation Oncology at [address] [address] 05/08/2024 1:00 PM EST Scheduled View Only Radiation Oncology at [address] [address] 05/11/2024 11:30 AM EST Scheduled View Only Radiation Oncology at [address] [address] 01/13/2025 1:00 PM EST Office Visit Hematology/Oncology at [address] [address] Lee Ann Jay MD [facility] [place] [address] Leti Anderson APRN [facility] [place] [address] documented as of this encounter Visit Diagnoses Not on filedocumented in this encounter Care Teams Forge Utility Worker Relationship Specialty Start Date End Date Julia Chatterjee MD [facility] [address] FELIZ [facility] [address] [place] [address] PCP - General 01/31/10 documented as of this encounter
--- OUTSIDE RECORDS SUMMARY | 2024-04-17 01:24 | XMS_ITS | Encounter Summary ---
[place] [address] Care Team Providers Care Forge Utility Worker Name Role Phone Julia Chatterjee MD Primary Care Provider [phone] Reason for Referral * Diagnostic Test (Routine) - Closed Specialty Diagnoses / Procedures Referred By Contac t Referred To Contact Radiology Diagnoses Hepatic abscess Procedures IR Drain Check/Change/Remove Barrett Malagon [facility] [place] [address] [place] [address] Referral ID Status Reason Start Date Expiration Date V isits Requested Visits Authorized [id number] Closed Specialty Service Requested 09/03/2019 03/04/2021 1 1 Reason for Visit * Diagnostic Test (Routine) - Closed Specialty Diagnoses / Procedures Referred By Contac t Referred To Contact Radiology Diagnoses Hepatic abscess Procedures IR Drain Check/Change/Remove Barrett Malagon [facility] [place] [address] [place] [address] Referral ID Status Reason Start Date Expiration Date V isits Requested Visits Authorized [id number] Closed Specialty Service Requested 09/03/2019 03/04/2021 1 1 Encounter Details Date Type Department Care Team (Latest Contact Info) Description 09/28/2019 8:00 AM EDT - 09/28/2019 11:59 PM EDT Hospital [place] [address] [place] [address] Hepatic abscess Discharge Disposition: Home Social History [...] Bennett RN - 09/28/2019 9:46 AM EDT [facility] Vascular and Interventional Radiology Discharge Instructions For [...] is during regular office hours, please call [phone]. If it is after regular office hours, or on weekends or holidays, please call [phone] and ask to speak to the [employer] electronic device monitor for Interventional Radiology. You have received medication [...] ERGOCALCIFEROL, VITAMIN D2, (VITAMIN D ORAL) 06/28/2008 020 documented as of this encounter Progress Notes * Jenae Bennett RN - 09/28/2019 9:27 AM EDT To procedure room 1 via stretcher. Onto table Prone. All monitors, O2, safety strap in place. Med'sper protocol. * Jenae Bennett RN - 09/23/2019 11:34 AM EDT [facility] Name: LETI PARRY Date of : 1950 AGE: 68 y.o. Address: [address] [address] (home) Mobile: Telephone Information: Referring Provider: Barrett Malagon REASON FOR VISIT: Order Questions Answers Where will study be performed? [facility] Radiology [120] Reason for exam and clinical history: CT-guided drain placed in liver abscess on 09/01 Is the patient on anticoagulant / anitplatelet therapy ? No Allergies Allergen Reactions ??? Benzalkonium Chloride Pertinent PSH: Past Surgical History: Procedure Laterality Date ??? CT ASPIRATION LIVER 09/02/2019 CT Guided Aspiration Liver 09/02/2019 [facility] RAD CAT SCAN ??? PRO BONE MARROW ASPIRATION W/BX THROUGH SAME INCISION/SITE Right 01/08/2017 ([facility] [place] [facility] BONE MARROW ASP PERFORMED W/BX THRU BX INCISION (WRVU 0.16) performed by Lee Ann Jay MD at [facility] OSC ??? PRO BONE MARROW BX, NEEDLE/TROCAR Right 01/08/2017 ([facility] [place] [facility]) BONE MARROW,BIOPSY (WRVU 1.37) performed by Lee Ann Jay MD at [facility] OSC ??? PRO COLONOSCOPY, BIOPSY 07/05/2011 COLONOSCOPY FLEXIBLE, WITH BX performed by AYAZ CASTRO at [facility] ENDOSCOPY ??? PRO COLONOSCOPY, REMV LESN, SNARE 07/05/2011 COLONOSCOPY, POLYPECTOMY, REMOVAL LESION BY SNARE performed by AYAZ CASTRO at [facility] ENDOSCOPY ??? PRO SIGMOIDOSCOPY, DIAGNOSTIC N/A 09/02/2019 FLEXIBLE SIGMOIDOSCOPY performed by Ayaz Castro MD at [facility] ENDOSCOPY Date/Procedure Meds given/comments 09/02/19 CT [...] Questions Answers Where will study be performed? [facility] Radiology [120] Reason for exam and clinical history: CT-guided drain placed in liver abscess on 09/01 Is the patient on anticoagulant / anitplatelet therapy ? No Presenting Diagnosis/ Complaint: Leti Parry is a [...] LIVER 09/02/2019 CT Guided Aspiration Liver 09/02/2019 [facility] RAD CAT SCAN ??? PRO BONE MARROW ASPIRATION W/BX THROUGH SAME INCISION/SITE Right 01/08/2017 ([facility]) BONE MARROW ASP PERFORMED W/BX THRU BX INCISION (WRVU 0.16) performed by Lee Ann Jay MD at [facility] OSC ??? PRO BONE MARROW BX, NEEDLE/TROCAR Right 01/08/2017 ([facility]) BONE MARROW,BIOPSY (WRVU 1.37) performed by Lee Ann Jay MD at [facility] OSC ??? PRO COLONOSCOPY, BIOPSY 07/05/2011 COLONOSCOPY FLEXIBLE, WITH BX performed by AYAZ CASTRO at [facility] ENDOSCOPY ??? PRO COLONOSCOPY, REMV LESN, SNARE 07/05/2011 COLONOSCOPY, POLYPECTOMY, REMOVAL LESION BY SNARE performed by AYAZ CASTRO at [facility] ENDOSCOPY ??? PRO SIGMOIDOSCOPY, DIAGNOSTIC N/A 09/02/2019 FLEXIBLE SIGMOIDOSCOPY performed by Ayaz Castro MD at [facility] ENDOSCOPY Medications: Current Outpatient Medications on File [...] file Gets together: Not on file Attends orthodox service: Not on file Active member of [...] Questions Answers Where will study be performed? [facility] Radiology [120] Reason for exam and clinical history: CT-guided drain placed in liver abscess on 09/01 Is the patient on anticoagulant / anitplatelet therapy ? No Presenting Diagnosis/ Complaint: Leti Parry is a [...] LIVER 09/02/2019 CT Guided Aspiration Liver 09/02/2019 [facility] RAD CAT SCAN ??? PRO BONE MARROW ASPIRATION W/BX THROUGH SAME INCISION/SITE Right 01/08/2017 ([facility]) BONE MARROW ASP PERFORMED W/BX THRU BX INCISION (WRVU 0.16) performed by Lee Ann Jay MD at [facility] OSC ??? PRO BONE MARROW BX, NEEDLE/TROCAR Right 01/08/2017 ([facility]) BONE MARROW,BIOPSY (WRVU 1.37) performed by Lee Ann Jay MD at [facility] OSC ??? PRO COLONOSCOPY, BIOPSY 07/05/2011 COLONOSCOPY FLEXIBLE, WITH BX performed by AYAZ CASTRO at [facility] ENDOSCOPY ??? PRO COLONOSCOPY, REMV LESN, SNARE 07/05/2011 COLONOSCOPY, POLYPECTOMY, REMOVAL LESION BY SNARE performed by AYAZ CASTRO at [facility] ENDOSCOPY ??? PRO SIGMOIDOSCOPY, DIAGNOSTIC N/A 09/02/2019 FLEXIBLE SIGMOIDOSCOPY performed by Ayaz Castro MD at [facility] ENDOSCOPY Medications: Current Outpatient Medications on File [...] file Gets together: Not on file Attends orthodox service: Not on file Active member of [...] an hepatic abscess. CT-guided drain placed on 4. IR consulted for draincheck. Plan: Plan Planned [...] Scheduled View Only Radiation Oncology at [address] [address] 04/20/2024 12:45 PM EST Scheduled View Only Radiation Oncology at [address] [address] 04/21/2024 10:45 AM EST Scheduled View Only Radiation Oncology at [address] [address] 04/21/2024 11:00 AM EST Office Visit Radiation Oncology at [address] [address] Radha Casiano MD [facility] [place] [address] 04/22/2024 3:00 PM EST Scheduled View Only Radiation Oncology at [address] [address] 04/23/2024 3:00 PM EST Scheduled View Only Radiation Oncology at [address] [address] 04/24/2024 3:00 PM EST Scheduled View Only Radiation Oncology at [address] [address] 04/27/2024 11:15 AM EST Scheduled View Only Radiation Oncology at [address] [address] 04/28/2024 11:30 AM EST Scheduled View Only Radiation Oncology at [address] [address] 04/28/2024 12:00 PM EST Office Visit Radiation Oncology at [address] [address] Radha Casiano MD [facility] [place] [place] [address] 04/28/2024 2:00 PM EST Office Visit Cardiology at [address] [place] [address] Letty Montejo APRN [facility] [place] [place] [address] 04/29/2024 11:15 AM EST Scheduled View Only Radiation Oncology at [address] [address] 04/30/2024 11:30 AM EST Scheduled View Only Radiation Oncology at [address] [address] 05/01/2024 11:15 AM EST Scheduled View Only Radiation Oncology at [address] [address] 05/04/2024 10:45 AM EST Scheduled View Only Radiation Oncology at [address] [address] 05/05/2024 1:00 PM EST Scheduled View Only Radiation Oncology at [address] [address] 05/05/2024 1:15 PM EST Office Visit Radiation Oncology at [address] [address] Radha Casiano MD [facility] DR [place] [address] 05/06/2024 1:00 PM EST Scheduled View Only Radiation Oncology at [address] [address] 05/07/2024 1:00 PM EST Scheduled View Only Radiation Oncology at [address] [address] 05/08/2024 1:00 PM EST Scheduled View Only Radiation Oncology at [address] [address] 05/11/2024 11:30 AM EST Scheduled View Only Radiation Oncology at [address] [address] 01/13/2025 1:00 PM EST Office Visit Hematology/Oncology at [address] [address] Lee Ann Jay MD [facility] DR HEMATOLOGY [place] [address] Leti Anderson APRN [facility] HEMATOLOGY [place] [address] documented as of this encounter Procedures Procedure [...] eDH note by Dr. Keene dated 09/24/19: Letijorge l Parry is a 68 y.o. female with [...] mLs documented in this encounter Care Teams Forge Utility Worker Relationship Specialty Start Date End Date Julia Chatterjee MD [facility] [address] [place] [address] PCP - General 01/31/10 documented as of this encounter
--- OUTSIDE RECORDS SUMMARY | 2024-04-17 01:24 | XMS_ITS | Encounter Summary ---
Author Organization [facility] Address [facility] [place] [address] Care Team Providers Care Receiving Checker Name Role Phone Julia Chatterjee MD Primary Care Provider [phone] Encounter Details Date Type Department Care Team (Late Contact Info) Description 09/21/2019 Telephone Hematology [place] [phone] Lee Ann Jay MD [facility] [place] [address] Social History Tobacco Use Types Packs/Day Years [...] Scheduled View Only Radiation Oncology at [address] [address] 04/20/2024 12:45 PM EST Scheduled View Only Radiation Oncology at [address] [address] 04/21/2024 10:45 AM EST Scheduled View Only Radiation Oncology at [address] [address] 04/21/2024 11:00 AM EST Office Visit Radiation Oncology at [address] [address] Radha Casiano MD [facility] [place] [address] 04/22/2024 3:00 PM EST Scheduled View Only Radiation Oncology at [address] [address] 04/23/2024 3:00 PM EST Scheduled View Only Radiation Oncology at [address] [address] 04/24/2024 3:00 PM EST Scheduled View Only Radiation Oncology at [address] [address] 04/27/2024 11:15 AM EST Scheduled View Only Radiation Oncology at [address] [address] 04/28/2024 11:30 AM EST Scheduled View Only Radiation Oncology at [address] [address] 04/28/2024 12:00 PM EST Office Visit Radiation Oncology at [address] [address] Radha Casiano MD [facility] [place] [address] 04/28/2024 2:00 PM EST Office Visit Cardiology at [address] [place] [address] Letty Montejo APRN [facility] [place] [address] 04/29/2024 11:15 AM EST Scheduled View Only Radiation Oncology at [address] [address] 04/30/2024 11:30 AM EST Scheduled View Only Radiation Oncology at [address] [address] 05/01/2024 11:15 AM EST Scheduled View Only Radiation Oncology at [address] [address] 05/04/2024 10:45 AM EST Scheduled View Only Radiation Oncology at [address] [address] 05/05/2024 1:00 PM EST Scheduled View Only Radiation Oncology at [address] [address] 05/05/2024 1:15 PM EST Office Visit Radiation Oncology at [address] [address] Radha Casiano MD [facility] [place] [address] 05/06/2024 1:00 PM EST Scheduled View Only Radiation Oncology at [address] [address] 05/07/2024 1:00 PM EST Scheduled View Only Radiation Oncology at [address] [address] 05/08/2024 1:00 PM EST Scheduled View Only Radiation Oncology at [address] [address] 05/11/2024 11:30 AM EST Scheduled View Only Radiation Oncology at [address] [address] 01/13/2025 1:00 PM EST Office Visit Hematology/Oncology at [address] [address] Lee Ann Jay MD [facility] [place] [address] Leti Anderson APRN [facility] [place] [address] documented as of this encounter Visit Diagnoses Not on filedocumented in this encounter Care Teams Receiving Checker Relationship Specialty Start Date End Date Julia Chatterjee MD [facility] [address] [place] [address] PCP - General 01/31/10 documented as of this encounter
--- OUTSIDE RECORDS SUMMARY | 2024-04-17 01:24 | XMS_ITS | Encounter Summary ---
Author Organization Formerly [facility], [facility] Address [facility] [place] [address] Care Team Providers Care Psychology Lecturer Name Role Phone Julia Chatterjee MD Primary Care Provider [phone] Encounter Details Date Type Department Care Team (Late st Contact Info) Description 10/22/2019 11:15 AM EDT - 10/22/2019 12:15 PM EDT Surgery [place] [address] Yola Oliveros MD [facility] [place] [address] COLONOSCOPY FLEXIBLE, WITH BX (WRVU 3.56) Social [...] sent through Care Everywhere. * Colonoscopy: Post-op (Estonian) documented in this encounter Medications at Time [...] Scheduled View Only Radiation Oncology at [address] [address] 04/20/2024 12:45 PM EST Scheduled View Only Radiation Oncology at [address] [address] 04/21/2024 10:45 AM EST Scheduled View Only Radiation Oncology at [address] [address] 04/21/2024 11:00 AM EST Office Visit Radiation Oncology at [address] [address] Radha Casiano MD [facility] RADIATION [place] [address] 04/22/2024 3:00 PM EST Scheduled View Only Radiation Oncology at [address] [address] 04/23/2024 3:00 PM EST Scheduled View Only Radiation Oncology at [address] [address] 04/24/2024 3:00 PM EST Scheduled View Only Radiation Oncology at [address] [address] 04/27/2024 11:15 AM EST Scheduled View Only Radiation Oncology at [address] [address] 04/28/2024 11:30 AM EST Scheduled View Only Radiation Oncology at [address] [address] 04/28/2024 12:00 PM EST Office Visit Radiation Oncology at [address] [address] Radha Casiano MD [facility] DR GRAVES [place]COLOG[place] [address] 04/28/2024 2:00 PM EST Office Visit Cardiology at [address] [phone] LuneaLetty meredith APRN [facility] [place] [address] 04/29/2024 11:15 AM EST Scheduled View Only Radiation Oncology at [address] [address] 04/30/2024 11:30 AM EST Scheduled View Only Radiation Oncology at [address] [address] 05/01/2024 11:15 AM EST Scheduled View Only Radiation Oncology at [address] [address] 05/04/2024 10:45 AM EST Scheduled View Only Radiation Oncology at [address] [address] 05/05/2024 1:00 PM EST Scheduled View Only Radiation Oncology at [address] [address] 05/05/2024 1:15 PM EST Office Visit Radiation Oncology at [address] [address] Radha Casiano MD [facility] RADIATION [place] [address] 05/06/2024 1:00 PM EST Scheduled View Only Radiation Oncology at [address] [address] 05/07/2024 1:00 PM EST Scheduled View Only Radiation Oncology at [address] [address] 05/08/2024 1:00 PM EST Scheduled View Only Radiation Oncology at [address] [address] 05/11/2024 11:30 AM EST Scheduled View Only Radiation Oncology at [address] [address] 01/13/2025 1:00 PM EST Office Visit Hematology/Oncology at [address] [address] Lee Ann Jay MD [facility] DR HEMATOLOGY [place] [address] Leti Anderson APRN [facility] [place] [address] documented as of this encounter Procedures Procedure Name Priority Date/Time Associated Diagnosis Comments SPECIMEN TO PATHOLOGY Routine 10/22/2019 11:52 AM EDT SPECIMEN TO PATHOLOGY Routine 10/22/2019 11:52 AM EDT SPECIMEN TO PATHOLOGY Routine 10/22/2019 11:52 AM EDT SPECIMEN TO PATHOLOGY Routine 10/22/2019 11:52 AM EDT SPECIMEN TO PATHOLOGY Routine 10/22/2019 11:52 AM EDT SURGICAL PATHOLOGY REPORT Routine 10/22/2019 11:15 AM EDT Colonoscopy, Biopsy ([id number]) 10/22/2019 11:01 AM EDT Ulcerative rectosigmoiditis with abscess Colonoscopy, IVCS, in 1-2 weeks for L sided colitis c/b hepatic abscess. Evaluate response to antibiotics and extent of colonic involvement COLONOSCOPY Routine 10/22/2019 9:49 AM EDT documented in this encounter Results * Specimen to Pathology (10/22/2019 11:52 AM EDT) AP Specimen 10/22/2019 11:5 2 AM EDT 10/22/2019 11:52 AM EDT Narrative [facility] - 10/22/2019 11:52 AM EDT Specimen requisition ordered. ??Separate Pathology report to follow L Inder Oliveros MD PATHOLOGY/CYTOLOGY O RDERABLES [facility] [place] [address] * Specimen to Pathology (10/22/2019 11:52 AM EDT) AP Specimen 10/22/2019 11:5 2 AM EDT 10/22/2019 11:52 AM EDT [facility] - 10/22/2019 11:52 AM EDT Specimen requisition ordered. ??Separate Pathology report to follow L Inder Oliveros MD PATHOLOGY/CYTOLOGY O RDKEITH Performing Organization Address [facility] [address]/[place] [address] * Specimen to Pathology (10/22/2019 11:52 AM EDT) AP Specimen 10/22/2019 11:5 2 AM EDT 10/22/2019 11:52 AM EDT [facility] - 10/22/2019 11:52 AM EDT Specimen requisition ordered. ??Separate Pathology report to follow L Inder Oliveros MD PATHOLOGY/CYTOLOGY O OMI Performing Organization Address [facility] [address]/ZIP Co de Phone Number [facility] [place] [address] * Specimen to Pathology (10/22/2019 11:52 AM EDT) AP Specimen 10/22/2019 11:5 2 AM EDT 10/22/2019 11:52 AM EDT [facility] - 10/22/2019 11:52 AM EDT Specimen requisition ordered. ??Separate Pathology report to follow L Inder Oliveros MD PATHOLOGY/CYTOLOGY O RDERAARMANDO Performing Organization Address [facility] [address]/[place] [address] * Specimen to Pathology (10/22/2019 11:52 AM EDT) AP Specimen 10/22/2019 11:5 2 AM EDT 10/22/2019 11:52 AM EDT [facility] - 10/22/2019 11:52 AM EDT Specimen requisition ordered. ??Separate Pathology report to follow L Inder Oliveros MD PATHOLOGY/CYTOLOGY Eneida BRAGA [facility] [place] [address] * Surgical Pathology Report (10/22/2019 11:15 AM EDT) Final Diagnosis [id number] ? Location: 4T; EA10; A The signing [...] PhD, Christal Verified: ??10/30/2019 ?Pathologist Performed at: ??-[facility] Dept. [place]ology, [place], [place] ADDITIONAL STUDIES E - ??multiple levels [...] labeled E1. ??ajw 10/30/2019 1:35 PM EDT [facility] GI Biopsy 10/22/2019 11:1 [...] L Inder Oliveros MD PATHOLOGY/CYTOLOGY O RDERABLES [facility] [place] [address] * COLONOSCOPY (10/22/2019 9:49 AM EDT) COLONOSCOPY [facility] Endoscopy Procedure Date: 10/22/2019 9:49 AM ? Patient Name: Leti Parry ? Date of : 1950 ? Age: 68 ? Order #: [id number] ? Instrument Name: [id number] ? Procedure: ? Colonoscopy Indications: ? Follow-up of left-sided chronic ? ulcerative colitis Providers: ? Marija Oliveros MD, Hesham Lasron ? Skyla Dobson, DAYANA, ? Power Vega [...] preparation was evaluated using ? the BBPS (Goltry Bowel Preparation ? Scale) with scores of: [...] Procedure Code(s): ?? --- Professional --- ? 20370, Colonoscopy, flexible; with ? biopsy, single or multiple CPT copyright 2019 [employer]. All rights reserved. The codes documented in this report are preliminary and upon film painter review may be revised to meet current [...] Skyla Lutz RN)1108 (Given - Provider: Skyla Lutz, RN)1111 (Given - Provider: Skyla Lutz, RN)1116 (Given - Provider: Skyla Lutz, RN) documented in this encounter Care Teams Psychology Lecturer Relationship Specialty Start Date End Date Julia Chatterjee MD [address] [place] [address] PCP - General 01/31/10 documented as of this encounter
--- OUTSIDE RECORDS SUMMARY | 2024-04-17 01:24 | XMS_ITS | Encounter Summary ---
Author Organization [facility] [place] [address] Care Team Providers Care Sheet Combining Operator Name Role Phone Julia Chatterjee MD Primary Care Provider [phone] Encounter Details Date Type Department Care Team (Late st Contact Info) Description 10/09/2019 Telephone Hematology Oncology at [address] [address] Billie Diaz RN Social History Tobacco Use [...] EST Scheduled View Only Radiation Oncology at [address] [address] 04/20/2024 12:45 PM EST Scheduled View Only Radiation Oncology at [address] [address] 04/21/2024 10:45 AM EST Scheduled View Only Radiation Oncology at [address] [address] 04/21/2024 11:00 AM EST Office Visit Radiation Oncology at [address] [address] Radha Casiano MD [facility] [place] [address] 04/22/2024 3:00 PM EST Scheduled View Only Radiation Oncology at [address] [address] 04/23/2024 3:00 PM EST Scheduled View Only Radiation Oncology at [address] [address] 04/24/2024 3:00 PM EST Scheduled View Only Radiation Oncology at [address] [address] 04/27/2024 11:15 AM EST Scheduled View Only Radiation Oncology at [address] [address] 04/28/2024 11:30 AM EST Scheduled View Only Radiation Oncology at [address] [address] 04/28/2024 12:00 PM EST Office Visit Radiation Oncology at [address] [address] Radha Casiano MD [facility] [place] [address] 04/28/2024 2:00 PM EST Office Visit Cardiology at [address] [place] [address] Letty Montejo, JAYLEN [facility] [place] [address] 04/29/2024 11:15 AM EST Scheduled View Only Radiation Oncology at [address] [address] 04/30/2024 11:30 AM EST Scheduled View Only Radiation Oncology at [address] [address] 05/01/2024 11:15 AM EST Scheduled View Only Radiation Oncology at [address] [address] 05/04/2024 10:45 AM EST Scheduled View Only Radiation Oncology at [address] [address] 05/05/2024 1:00 PM EST Scheduled View Only Radiation Oncology at [address] [address] 05/05/2024 1:15 PM EST Office Visit Radiation Oncology at [address] [address] Radha Casiano MD [facility] DR [place] [address] 05/06/2024 1:00 PM EST Scheduled View Only Radiation Oncology at [address] [address] 05/07/2024 1:00 PM EST Scheduled View Only Radiation Oncology at [address] [address] 05/08/2024 1:00 PM EST Scheduled View Only Radiation Oncology at [address] [address] 05/11/2024 11:30 AM EST Scheduled View Only Radiation Oncology at [address] [address] 01/13/2025 1:00 PM EST Office Visit Hematology/Oncology at [address] [address] Lee Ann Jay MD [facility] HEMATOLOGY [place] [address] Leti Anderson APRN [facility] HEMATOLOGY [place] [address] documented as of this encounter Visit Diagnoses Not on filedocumented in this encounter Care Teams Sheet Combining Operator Relationship Specialty Start Date End Date Julia Chatterjee MD [facility] [address] [place] [address] PCP - General 01/31/10 documented as of this encounter
--- OUTSIDE RECORDS SUMMARY | 2024-04-17 01:24 | XMS_ITS | Encounter Summary ---
Author Organization Formerly [facility] [place] [address] Care Team Providers Care Abalone Processor Name Role Phone Julia Chatterjee MD Primary Care Provider [phone] Reason for Visit * Reason Onset Date Comments Labs Only 09/29/2019 Encounter Details Date Type Department Care Team (Late st Contact Info) Description 09/29/2019 Telephone Hematology/Oncology at [address] [address] Vicky Madrigal, RN Labs Only [...] Scheduled View Only Radiation Oncology at [address] [address] 04/20/2024 12:45 PM EST Scheduled View Only Radiation Oncology at [address] [address] 04/21/2024 10:45 AM EST Scheduled View Only Radiation Oncology at [address] [address] 04/21/2024 11:00 AM EST Office Visit Radiation Oncology at [address] [address] Radha Casiano MD [facility] [place] [address] 04/22/2024 3:00 PM EST Scheduled View Only Radiation Oncology at [address] [address] 04/23/2024 3:00 PM EST Scheduled View Only Radiation Oncology at [address] [address] 04/24/2024 3:00 PM EST Scheduled View Only Radiation Oncology at [address] [address] 04/27/2024 11:15 AM EST Scheduled View Only Radiation Oncology at [address] [address] 04/28/2024 11:30 AM EST Scheduled View Only Radiation Oncology at [address] [address] 04/28/2024 12:00 PM EST Office Visit Radiation Oncology at [address] [address] Radha Casiano MD [facility] [place] [address] 04/28/2024 2:00 PM EST Office Visit Cardiology at [address] [place] [address] Letty Montejo APRN [facility] [place] [address] 04/29/2024 11:15 AM EST Scheduled View Only Radiation Oncology at [address] [address] 04/30/2024 11:30 AM EST Scheduled View Only Radiation Oncology at [address] [address] 05/01/2024 11:15 AM EST Scheduled View Only Radiation Oncology at [address] [address] 05/04/2024 10:45 AM EST Scheduled View Only Radiation Oncology at [address] [address] 05/05/2024 1:00 PM EST Scheduled View Only Radiation Oncology at [address] [address] 05/05/2024 1:15 PM EST Office Visit Radiation Oncology at [address] [address] Radha Casiano MD [facility] [place] [address] 05/06/2024 1:00 PM EST Scheduled View Only Radiation Oncology at [address] [address] 05/07/2024 1:00 PM EST Scheduled View Only Radiation Oncology at [address] [address] 05/08/2024 1:00 PM EST Scheduled View Only Radiation Oncology at [address] [address] 05/11/2024 11:30 AM EST Scheduled View Only Radiation Oncology at [address] [address] 01/13/2025 1:00 PM EST Office Visit Hematology/Oncology at [address] [address] Lee Ann Jay MD [facility] HEMATOLOGY [place] [address] Leti Anderson APRN [facility] HEMATOLOG[place] [address] documented as of this encounter Procedures Procedure Name Priority Date/Time Associated Diagnosis Comments CBC (WITH DIFF) Routine 09/29/2019 documented in this encounter Results * CBC (with Diff) (09/29/2019) White Blood Cell 4.45 Hemoglobin 13.3 Hematocrit 42.6 Platelet 250 Neutrophil Absolute (ANC) - Automated 1.20 Blood specimen (specimen) 09/29/2019 Lee Ann Jay MD HEMATOLOGY ORDER ASHLEY documented in this encounter Visit Diagnoses Not on filedocumented in this encounter Care Teams Abalone Processor Relationship Specialty Start Date End Date Julia Chatterjee MD [address] [place] [address] PCP - General 01/31/10 documented as of this encounter
--- OUTSIDE RECORDS SUMMARY | 2024-04-17 01:24 | XMS_ITS | Encounter Summary ---
Author Organization [facility] [place] [address] Care Team Providers Care Sales Intern Name Role Phone Julia Chatterjee MD Primary Care Provider [phone] Encounter Details Date Type Department Care Team (Late st Contact Info) Description 09/08/2019 Notes Only Infectious Disease at [facility] [place] [address] Rosanne Recinos RN Social History Tobacco Use [...] Program Faxed to [facility] ([facility]) on 09/08/19 at 1354 Fax confirmation on 09/08/19 at 1409 Spoke with Mavis at [facility]. Documents faxed: Information on care & maintenance and removal of Secur A Cath securement device including company contact and on-line tutorial information. ASHER Abad, RN, ACM-RN OPAT Program documented in this encounter Plan of Treatment Upcoming Encounters Date Type Department Care Team (Late st Contact Info) Description 04/17/2024 2:30 PM EST Scheduled View Only Radiation Oncology at [address] [address] 04/20/2024 12:45 PM EST Scheduled View Only Radiation Oncology at [address] [address] 04/21/2024 10:45 AM EST Scheduled View Only Radiation Oncology at [address] [address] 04/21/2024 11:00 AM EST Office Visit Radiation Oncology at [address] [address] Radha Casiano MD [facility] [place] [address] 04/22/2024 3:00 PM EST Scheduled View Only Radiation Oncology at [address] [address] 04/23/2024 3:00 PM EST Scheduled View Only Radiation Oncology at [address] [address] 04/24/2024 3:00 PM EST Scheduled View Only Radiation Oncology at [address] [address] 04/27/2024 11:15 AM EST Scheduled View Only Radiation Oncology at [address] [address] 04/28/2024 11:30 AM EST Scheduled View Only Radiation Oncology at [address] [address] 04/28/2024 12:00 PM EST Office Visit Radiation Oncology at [address] [address] Radha Casiano MD [facility] [place] [address] 04/28/2024 2:00 PM EST Office Visit Cardiology at [address] [place] [address] Letty Montejo APRN [facility] [place] [address] 04/29/2024 11:15 AM EST Scheduled View Only Radiation Oncology at [address] [address] 04/30/2024 11:30 AM EST Scheduled View Only Radiation Oncology at [address] [address] 05/01/2024 11:15 AM EST Scheduled View Only Radiation Oncology at [address] [address] 05/04/2024 10:45 AM EST Scheduled View Only Radiation Oncology at [address] [address] 05/05/2024 1:00 PM EST Scheduled View Only Radiation Oncology at [address] [address] 05/05/2024 1:15 PM EST Office Visit Radiation Oncology at [address] [address] Rdaha Casiano MD [facility] [place] [address] 05/06/2024 1:00 PM EST Scheduled View Only Radiation Oncology at [address] [address] 05/07/2024 1:00 PM EST Scheduled View Only Radiation Oncology at [address] [address] 05/08/2024 1:00 PM EST Scheduled View Only Radiation Oncology at [address] [address] 05/11/2024 11:30 AM EST Scheduled View Only Radiation Oncology at [address] [address] 01/13/2025 1:00 PM EST Office Visit Hematology/Oncology at [address] [address] Lee Ann Jay MD [facility] DR [place] [address] Leti Anderson APRN [facility] [place] [address] documented as of this encounter Visit Diagnoses Not on filedocumented in this encounter Care Teams Sales Intern Relationship Specialty Start Date End Date Julia Chatterjee MD [facility] [address] [place] [address] PCP - General 01/31/10 documented as of this encounter
--- OUTSIDE RECORDS SUMMARY | 2024-04-17 01:24 | XMS_ITS | Encounter Summary ---
Author Organization [place] [address] Care Team Providers Care Bottling Line Operator Name Role Phone Julia Chatterjee MD Primary Care Provider [phone] Reason for Visit * Reason Onset Date Comments Abnormal Lab 09/21/2019 Encounter Details Date Type Department Care Team (Late st Contact Info) Description 09/21/2019 Telephone [place] [address] Kelby Kaye MD Abnormal Lab Social History Tobacco Use Types [...] 3:57 PM EDT TELEPHONE ENCOUNTER Notified by lab tester at [facility] that patient's lab draw significant for WBC 1.78 and ANC 0.29. Called patient at home - denied any fever, chills, or other systemic symptoms. Was visited by IV nurse today and PICC site c/d/i. Called patient's media reporter, Dr. Santos, to discuss possible neupogen shot [...] Scheduled View Only Radiation Oncology at [address] [address] 04/20/2024 12:45 PM EST Scheduled View Only Radiation Oncology at [address] [address] 04/21/2024 10:45 AM EST Scheduled View Only Radiation Oncology at [address] [address] 04/21/2024 11:00 AM EST Office Visit Radiation Oncology at [address] [address] Radha Casiano MD [facility] [place] [address] 04/22/2024 3:00 PM EST Scheduled View Only Radiation Oncology at [address] [address] 04/23/2024 3:00 PM EST Scheduled View Only Radiation Oncology at [address] [address] 04/24/2024 3:00 PM EST Scheduled View Only Radiation Oncology at [address] [address] 04/27/2024 11:15 AM EST Scheduled View Only Radiation Oncology at [address] [address] 04/28/2024 11:30 AM EST Scheduled View Only Radiation Oncology at [address] [address] 04/28/2024 12:00 PM EST Office Visit Radiation Oncology at [address] [address] Radha Casiano MD [facility] RADI[place] [address] 04/28/2024 2:00 PM EST Office Visit Cardiology at [address] [place] [address] Letty Montejo APRN [facility] [place] [address] 04/29/2024 11:15 AM EST Scheduled View Only Radiation Oncology at [address] [address] 04/30/2024 11:30 AM EST Scheduled View Only Radiation Oncology at [address] [address] 05/01/2024 11:15 AM EST Scheduled View Only Radiation Oncology at [address] [address] 05/04/2024 10:45 AM EST Scheduled View Only Radiation Oncology at [address] [address] 05/05/2024 1:00 PM EST Scheduled View Only Radiation Oncology at [address] [address] 05/05/2024 1:15 PM EST Office Visit Radiation Oncology at [address] [address] Radha Casiano MD [facility] [address] 05/06/2024 1:00 PM EST Scheduled View Only Radiation Oncology at [address] [address] 05/07/2024 1:00 PM EST Scheduled View Only Radiation Oncology at [address] [address] 05/08/2024 1:00 PM EST Scheduled View Only Radiation Oncology at [address] [address] 05/11/2024 11:30 AM EST Scheduled View Only Radiation Oncology at [address] [address] 01/13/2025 1:00 PM EST Office Visit Hematology/Oncology at [address] [address] Lee Ann Jay MD [facility] [place] [address] Leti Anderson APRN [facility] [place] [address] documented as of this encounter Visit Diagnoses Not on filedocumented in this encounter Care Teams Bottling Line Operator Relationship Specialty Start Date End Date Julia Chatterjee MD [address] [place] [address] PCP - General 01/31/10 documented as of this encounter
--- OUTSIDE RECORDS SUMMARY | 2024-04-17 01:24 | XMS_ITS | Encounter Summary ---
Author Organization [facility] Address [facility] [place] [address] Care Team Providers Care Sewing Machine Repairer Name Role Phone Julia Chatterjee MD Primary Care Provider [phone] Encounter Details Date Type Department Care Team (Late Contact Info) Description 10/05/2019 Orders Only Hematology/Oncology at [address] [address] Lee Ann Jay MD [facility] DR HEMATOLOGY [place] [address] Neutropenia, unspecified type Social History Tobacco Use [...] Scheduled View Only Radiation Oncology at [address] [address] 04/20/2024 12:45 PM EST Scheduled View Only Radiation Oncology at [address] [address] 04/21/2024 10:45 AM EST Scheduled View Only Radiation Oncology at [address] [address] 04/21/2024 11:00 AM EST Office Visit Radiation Oncology at [address] [address] Radha Casiano MD [facility] RAD[place] [address] 04/22/2024 3:00 PM EST Scheduled View Only Radiation Oncology at [address] [address] 04/23/2024 3:00 PM EST Scheduled View Only Radiation Oncology at [address] [address] 04/24/2024 3:00 PM EST Scheduled View Only Radiation Oncology at [address] [address] 04/27/2024 11:15 AM EST Scheduled View Only Radiation Oncology at [address] [address] 04/28/2024 11:30 AM EST Scheduled View Only Radiation Oncology at [address] [address] 04/28/2024 12:00 PM EST Office Visit Radiation Oncology at [address] [address] Radha Casiano MD [facility] [place] [address] 04/28/2024 2:00 PM EST Office Visit Cardiology at [address] [place] [place] [address] Letty Montejo, JAYLEN [facility] [place] [address] 04/29/2024 11:15 AM EST Scheduled View Only Radiation Oncology at [address] [address] 04/30/2024 11:30 AM EST Scheduled View Only Radiation Oncology at [address] [address] 05/01/2024 11:15 AM EST Scheduled View Only Radiation Oncology at [address] [address] 05/04/2024 10:45 AM EST Scheduled View Only Radiation Oncology at [address] [address] 05/05/2024 1:00 PM EST Scheduled View Only Radiation Oncology at [address] [address] 05/05/2024 1:15 PM EST Office Visit Radiation Oncology at [address] [address] Radha Casiano MD [facility] [place] [address] 05/06/2024 1:00 PM EST Scheduled View Only Radiation Oncology at [address] [address] 05/07/2024 1:00 PM EST Scheduled View Only Radiation Oncology at [address] [address] 05/08/2024 1:00 PM EST Scheduled View Only Radiation Oncology at [address] [address] 05/11/2024 11:30 AM EST Scheduled View Only Radiation Oncology at [address] [address] 01/13/2025 1:00 PM EST Office Visit Hematology/Oncology at [address] [address] Lee Ann Jay MD [facility] HEMATOLOGY [place] [address] Leti Anderson, JAYLEN [facility] HEMATOLOGY [place] [address] documented as of this encounter Visit Diagnoses Diagnosis Neutropenia, unspecified type documented in this encounter Care Teams Sewing Machine Repairer Relationship Specialty Start Date End Date Julia Chatterjee MD [address]ushant [address] [facility] 1 [place] [address] PCP - General 01/31/10 documented as of this encounter
--- OUTSIDE RECORDS SUMMARY | 2024-04-17 01:24 | XMS_ITS | Encounter Summary ---
Author Organization [facility] Address [facility] [place] [address] Care Team Providers Care Sales Ledger Clerk Name Role Phone Julia Chatterjee MD Primary Care Provider [phone] Reason for Visit * Reason Onset Date Comments Medication Refill 10/20/2019 Encounter Details Date Type Department Care Team (Late Contact Info) Description 10/20/2019 Ref[place] [address] Yola Oliveros MD [facility] [place] [address] Social History Tobacco Use Types Packs/Day Years [...] EST Scheduled View Only Radiation Oncology at [address] [address] 04/20/2024 12:45 PM EST Scheduled View Only Radiation Oncology at [address] [address] 04/21/2024 10:45 AM EST Scheduled View Only Radiation Oncology at [address] [address] 04/21/2024 11:00 AM EST Office Visit Radiation Oncology at [address] [address] Radha Casiano MD [facility] RADIATION [place] [address] 04/22/2024 3:00 PM EST Scheduled View Only Radiation Oncology at [address] [address] 04/23/2024 3:00 PM EST Scheduled View Only Radiation Oncology at [address] [address] 04/24/2024 3:00 PM EST Scheduled View Only Radiation Oncology at [address] [address] 04/27/2024 11:15 AM EST Scheduled View Only Radiation Oncology at [address] [address] 04/28/2024 11:30 AM EST Scheduled View Only Radiation Oncology at [address] [address] 04/28/2024 12:00 PM EST Office Visit Radiation Oncology at [address] [address] Radha Casiano MD [facility] [place] [address] 04/28/2024 2:00 PM EST Office Visit Cardiology at [address] [place] [address] Letty Montejo, JAYLEN [facility] CARDIOLOG[place] [address] 04/29/2024 11:15 AM EST Scheduled View Only Radiation Oncology at [address] [address] 04/30/2024 11:30 AM EST Scheduled View Only Radiation Oncology at [address] [address] 05/01/2024 11:15 AM EST Scheduled View Only Radiation Oncology at [address] [address] 05/04/2024 10:45 AM EST Scheduled View Only Radiation Oncology at [address] [address] 05/05/2024 1:00 PM EST Scheduled View Only Radiation Oncology at [address] [address] 05/05/2024 1:15 PM EST Office Visit Radiation Oncology at [address] [address] Radha Casiano MD [facility] [place] [address] 05/06/2024 1:00 PM EST Scheduled View Only Radiation Oncology at [address] [address] 05/07/2024 1:00 PM EST Scheduled View Only Radiation Oncology at [address] [address] 05/08/2024 1:00 PM EST Scheduled View Only Radiation Oncology at [address] [address] 05/11/2024 11:30 AM EST Scheduled View Only Radiation Oncology at [address] [address] 01/13/2025 1:00 PM EST Office Visit Hematology/Oncology at [address] [address] Lee Ann Jay MD [facility] HEMATOLOGY [place] [address] Leti Anderson, INVASIVE PHYSICIAN [facility] DR HEMATOLOGY [place] [address] documented as of this encounter Visit Diagnoses Not on filedocumented in this encounter Care Teams Sales Ledger Clerk Relationship Specialty Start Date End Date Julia Chatterjee MD [facility] [address] [facility] 1 [place] [address] PCP - General 01/31/10 documented as of this encounter
--- OUTSIDE RECORDS SUMMARY | 2024-04-17 01:24 | XMS_ITS | Encounter Summary ---
[place] [address] Care Team Providers Care Security Supervisor Name Role Phone Julia Chatterjee MD Primary Care Provider [phone] Encounter Details Date Type Department Care Team (Late st Contact Info) Description 10/22/2019 Orders [place] [address] Hesham Dobson MD Social History Tobacco Use Types Packs/Day [...] EST Scheduled View Only Radiation Oncology at [address] [address] 04/20/2024 12:45 PM EST Scheduled View Only Radiation Oncology at [address] [address] 04/21/2024 10:45 AM EST Scheduled View Only Radiation Oncology at [address] [address] 04/21/2024 11:00 AM EST Office Visit Radiation Oncology at [address] [address] [facility] [place] [address] 04/22/2024 3:00 PM EST Scheduled View Only Radiation Oncology at [address] [address] 04/23/2024 3:00 PM EST Scheduled View Only Radiation Oncology at [address] [address] 04/24/2024 3:00 PM EST Scheduled View Only Radiation Oncology at [address] [address] 04/27/2024 11:15 AM EST Scheduled View Only Radiation Oncology at [address] [address] 04/28/2024 11:30 AM EST Scheduled View Only Radiation Oncology at [address] [address] 04/28/2024 12:00 PM EST Office Visit Radiation Oncology at [address] [address] [facility] [place] [address] 04/28/2024 2:00 PM EST Office Visit Cardiology at [address] [place] [address] Letty Montejo APRN [facility] [place] [address] 04/29/2024 11:15 AM EST Scheduled View Only Radiation Oncology at [address] [address] 04/30/2024 11:30 AM EST Scheduled View Only Radiation Oncology at [address] [address] 05/01/2024 11:15 AM EST Scheduled View Only Radiation Oncology at [address] [address] 05/04/2024 10:45 AM EST Scheduled View Only Radiation Oncology at [address] [address] 05/05/2024 1:00 PM EST Scheduled View Only Radiation Oncology at [address] [address] 05/05/2024 1:15 PM EST Office Visit Radiation Oncology at [address] [address] [facility] [place] [address] 05/06/2024 1:00 PM EST Scheduled View Only Radiation Oncology at [address] [address] 05/07/2024 1:00 PM EST Scheduled View Only Radiation Oncology at [address] [address] 05/08/2024 1:00 PM EST Scheduled View Only Radiation Oncology at [address] [address] 05/11/2024 11:30 AM EST Scheduled View Only Radiation Oncology at [address] [address] 01/13/2025 1:00 PM EST Office Visit Hematology/Oncology at [address] [address] Lee [address] [facility] [place] [address] [facility] HEMATOLOGY [place] [address] documented as of this encounter Visit Diagnoses Not on filedocumented in this encounter Care Teams Security Supervisor Relationship Specialty Start Date End Date Julia Chatterjee MD Sushant [address]ON DR [facility] 1 [place] [address] PCP - General 01/31/10 documented as of this encounter
--- OUTSIDE RECORDS SUMMARY | 2024-04-17 01:24 | XMS_ITS | Encounter Summary ---
Author Organization [facility] [place] [address] Care Team Providers Care Evaporator Repairer Name Role Phone Julia Chatterjee MD Primary Care Provider Encounter Details Date Type Department Care Team (Late st Contact Info) Description 10/19/2019 Telephone [place] [phone] Juancarlos Marin Social History Tobacco Use Types [...] Scheduled View Only Radiation Oncology at [address] [address] 04/20/2024 12:45 PM EST Scheduled View Only Radiation Oncology at [address] [address] 04/21/2024 10:45 AM EST Scheduled View Only Radiation Oncology at [address] [address] 04/21/2024 11:00 AM EST Office Visit Radiation Oncology at [address] [address] Radha Casiano MD [facility] [place] [address] 04/22/2024 3:00 PM EST Scheduled View Only Radiation Oncology at [address] [address] 04/23/2024 3:00 PM EST Scheduled View Only Radiation Oncology at [address] [address] 04/24/2024 3:00 PM EST Scheduled View Only Radiation Oncology at [address] [address] 04/27/2024 11:15 AM EST Scheduled View Only Radiation Oncology at [address] [address] 04/28/2024 11:30 AM EST Scheduled View Only Radiation Oncology at [address] [address] 04/28/2024 12:00 PM EST Office Visit Radiation Oncology at [address] [address] Radha Casiano MD [facility] [place] [address] 04/28/2024 2:00 PM EST Office Visit Cardiology at [address] [place] [address] Letty Montejo, JAYLEN [facility] [place] [address] 04/29/2024 11:15 AM EST Scheduled View Only Radiation Oncology at [address] [address] 04/30/2024 11:30 AM EST Scheduled View Only Radiation Oncology at [address] [address] 05/01/2024 11:15 AM EST Scheduled View Only Radiation Oncology at [address] [address] 05/04/2024 10:45 AM EST Scheduled View Only Radiation Oncology at [address] [address] 05/05/2024 1:00 PM EST Scheduled View Only Radiation Oncology at [address] [address] 05/05/2024 1:15 PM EST Office Visit Radiation Oncology at [address] [address] Radha Casiano MD [facility] [place] [address] 05/06/2024 1:00 PM EST Scheduled View Only Radiation Oncology at [address] [address] 05/07/2024 1:00 PM EST Scheduled View Only Radiation Oncology at [address] [address] 05/08/2024 1:00 PM EST Scheduled View Only Radiation Oncology at [address] [address] 05/11/2024 11:30 AM EST Scheduled View Only Radiation Oncology at [address] [address] 01/13/2025 1:00 PM EST Office Visit Hematology/Oncology at [address] [address] Lee Ann Jay MD [facility] [place] [address] Leti Anderson APRN [facility] [place] [address] documented as of this encounter Visit Diagnoses Not on filedocumented in this encounter Care Teams Evaporator Repairer Relationship Specialty Start Date End Date Julia Chatterjee MD [address] [facility] 1 [place] [address] PCP - General 01/31/10 documented as of this encounter
--- OUTSIDE RECORDS SUMMARY | 2024-04-17 01:25 | XMS_ITS | Encounter Summary ---
Author Organization [facility] Address [facility] [place] [address] Care Team Providers Care Artificial Flower Maker Name Role Phone Julia Chatterjee MD Primary Care Provider [phone] Encounter Details Date Type Department Care Team (Late st Contact Info) Description 09/07/2019 Notes Only Infectious Disease at [facility] [place] [phone] Rosanne Recinos RN Social History Tobacco Use [...] Progress Notes * Rosanne Recinos RN - 09/07/2019 2:41 PM EDT Infectious [...] to contact. Reviewed roles and responsibilities of REGISTERED NURSE BEHAVIORAL HEALTH and infusion vendor. Contact information for ID team/clinic, REGISTERED NURSE BEH[facility]IORAL HE[facility] and infusion vendor given to pt. Discussed f/u appointments in ID 5C clinic, telephone and tele health. Pt verbalized understanding. All questions answered. REGISTERED NURSE BEHAVIORAL HEALTH: [facility] Infusion vendor: [employer] IV Access: PICC Se cur A Cath 4 Fr. single lumen Bard Power catheter was placed into the right basilic vein 38 cm Placed: 09/07/19 Plan: discharge on OPAT program when medically ready. ASHER Abad, RN, ACM-RN OPAT Program documented in this encounter Plan of Treatment Upcoming Encounters Date Type Department Care Team (Late st Contact Info) Description 04/17/2024 2:30 PM EST Scheduled View Only Radiation Oncology at [address] [address] 04/20/2024 12:45 PM EST Scheduled View Only Radiation Oncology at [address] [address] 04/21/2024 10:45 AM EST Scheduled View Only Radiation Oncology at [address] [address] 04/21/2024 11:00 AM EST Office Visit Radiation Oncology at [address] [address] Radha Casiano MD [facility] [place] [address] 04/22/2024 3:00 PM EST Scheduled View Only Radiation Oncology at [address] [address] 04/23/2024 3:00 PM EST Scheduled View Only Radiation Oncology at [address] [address] 04/24/2024 3:00 PM EST Scheduled View Only Radiation Oncology at [address] [address] 04/27/2024 11:15 AM EST Scheduled View Only Radiation Oncology at [address] [address] 04/28/2024 11:30 AM EST Scheduled View Only Radiation Oncology at [address] [address] 04/28/2024 12:00 PM EST Office Visit Radiation Oncology at [address] [address] Radha Casiano MD [facility] DR [place] [address] 04/28/2024 2:00 PM EST Office Visit Cardiology at [address] [place] [address] Letty Montejo APRN [facility] [place] [address] 04/29/2024 11:15 AM EST Scheduled View Only Radiation Oncology at [address] [address] 04/30/2024 11:30 AM EST Scheduled View Only Radiation Oncology at [address] [address] 05/01/2024 11:15 AM EST Scheduled View Only Radiation Oncology at [address] [address] 05/04/2024 10:45 AM EST Scheduled View Only Radiation Oncology at [address] [address] 05/05/2024 1:00 PM EST Scheduled View Only Radiation Oncology at [address] [address] 05/05/2024 1:15 PM EST Office Visit Radiation Oncology at [address] [address] Radha Casiano MD [facility] DR [place] [address] 05/06/2024 1:00 PM EST Scheduled View Only Radiation Oncology at [address] [address] 05/07/2024 1:00 PM EST Scheduled View Only Radiation Oncology at [address] [address] 05/08/2024 1:00 PM EST Scheduled View Only Radiation Oncology at [address] [address] 05/11/2024 11:30 AM EST Scheduled View Only Radiation Oncology at [address] [address] 01/13/2025 1:00 PM EST Office Visit Hematology/Oncology at [address] [address] Lee Ann Jay MD [facility] DR HEMATOLOGY [place] [address] Leti Anderson APRN [facility] DR HEMATOLOGY [place] [address] documented as of this encounter Visit Diagnoses Not on filedocumented in this encounter Care Teams Artificial Flower Maker Relationship Specialty Start Date End Date Julia Chatterjee MD [address]ushant [address] [place] [address] PCP - General 01/31/10 documented as of this encounter
--- OUTSIDE RECORDS SUMMARY | 2024-04-17 01:25 | XMS_ITS | Encounter Summary ---
Author Organization [facility] [place] [address] Care Team Providers Care Supervisor Electronics Testing Name Role Phone Julia Chatterjee MD Primary Care Provider [phone] Reason for Referral * Consultation (Routine) - Closed Specialty Diagnoses / Procedures Referred By Contact Referred To Contact Infectious Diseases Diagnoses Hepatic abscess Bacteroides fragilis Infection due to Peptostreptococcus species Actinomyces infection Briana King [facility] [place] [address] Briana King [facility] [place] [address] Referral ID Status Reason Start Date Expiration Date V isits Requested Visits Authorized [id number] Closed Assume Subset of Care 09/08/2019 09/07/2020 1 1 Encounter Details Date Type Department Care Team (Latest Contact Info) Description 09/08/2019 Orders [place] [address] Briana King [facility] [place] [address] Hepatic abscess; Bacteroides fragilis; Infection due to [...] Scheduled View Only Radiation Oncology at [address] [address] 04/20/2024 12:45 PM EST Scheduled View Only Radiation Oncology at [address] [address] 04/21/2024 10:45 AM EST Scheduled View Only Radiation Oncology at [address] [address] 04/21/2024 11:00 AM EST Office Visit Radiation Oncology at [address] [address] Radha Casiano MD [facility] [place] [address] 04/22/2024 3:00 PM EST Scheduled View Only Radiation Oncology at [address] [address] 04/23/2024 3:00 PM EST Scheduled View Only Radiation Oncology at [address] [address] 04/24/2024 3:00 PM EST Scheduled View Only Radiation Oncology at [address] [address] 04/27/2024 11:15 AM EST Scheduled View Only Radiation Oncology at [address] [address] 04/28/2024 11:30 AM EST Scheduled View Only Radiation Oncology at [address] [address] 04/28/2024 12:00 PM EST Office Visit Radiation Oncology at [address] [address] Radha Casiano MD [facility] RADIATION [place] [address] 04/28/2024 2:00 PM EST Office Visit Cardiology at [address] [place] [address] Letty Montejo, JAYLEN [facility] [place] [address] 04/29/2024 11:15 AM EST Scheduled View Only Radiation Oncology at [address] [address] 04/30/2024 11:30 AM EST Scheduled View Only Radiation Oncology at [address] [address] 05/01/2024 11:15 AM EST Scheduled View Only Radiation Oncology at [address] [address] 05/04/2024 10:45 AM EST Scheduled View Only Radiation Oncology at [address] [address] 05/05/2024 1:00 PM EST Scheduled View Only Radiation Oncology at [address] [address] 05/05/2024 1:15 PM EST Office Visit Radiation Oncology at [address] [address] Radha Casiano MD [facility] [place] [address] 05/06/2024 1:00 PM EST Scheduled View Only Radiation Oncology at [address] [address] 05/07/2024 1:00 PM EST Scheduled View Only Radiation Oncology at [address] [address] 05/08/2024 1:00 PM EST Scheduled View Only Radiation Oncology at [address] [address] 05/11/2024 11:30 AM EST Scheduled View Only Radiation Oncology at [address] [address] 01/13/2025 1:00 PM EST Office Visit Hematology/Oncology at [address] [address] Lee Ann Jay MD [facility] DR HEMATOLOGY [place] [address] Leti Anderson APRN [facility] HEMATOLOGY [place] [address] Scheduled Referrals Name Type Priority Associated Diagnoses [...] site documented in this encounter Care Teams Supervisor Electronics Testing Relationship Specialty Start Date End Date Julia Chatterjee MD [facility] KINA [address]AD[address] [place] [address] PCP - General 01/31/10 documented as of this encounter
--- OUTSIDE RECORDS SUMMARY | 2024-04-17 01:25 | XMS_ITS | Encounter Summary ---
Author Organization [facility] [address] Care Team Providers Care Fuels Sales Representative Name Role Phone Julia Chatterjee MD Primary Care Provider [phone] Encounter Details Date Type Department Care Team (Late st Contact Info) Description 09/08/2019 Notes [place] [id number] Rosanne Recinos RN Social History Tobacco Use [...] Disease OPAT Program Faxed to pharmacy at [facility] on 09/08/19 at 1104 Fax confirmation on 09/08/19 at 1107 Faxed to [facility] ([facility]) on 09/08/19 at 1024 Fax confirmation on 09/08/19 at 1032 Documents faxed: New OPAT order 09/08/19 ASHER Abad, RN, ACM-RN OPAT Program documented in this encounter Plan of Treatment Upcoming Encounters Date Type Department Care Team (Late st Contact Info) Description 04/17/2024 2:30 PM EST Scheduled View Only Radiation Oncology at [address] [address] 04/20/2024 12:45 PM EST Scheduled View Only Radiation Oncology at [address] [address] 04/21/2024 10:45 AM EST Scheduled View Only Radiation Oncology at [address] [address] 04/21/2024 11:00 AM EST Office Visit Radiation Oncology at [address] [address] Radha Casiano MD [facility] [place] [address] 04/22/2024 3:00 PM EST Scheduled View Only Radiation Oncology at [address] [address] 04/23/2024 3:00 PM EST Scheduled View Only Radiation Oncology at [address] [address] 04/24/2024 3:00 PM EST Scheduled View Only Radiation Oncology at [address] [address] 04/27/2024 11:15 AM EST Scheduled View Only Radiation Oncology at [address] [address] 04/28/2024 11:30 AM EST Scheduled View Only Radiation Oncology at [address] [address] 04/28/2024 12:00 PM EST Office Visit Radiation Oncology at [address] [address] Radha Casiano MD [facility] [place] [address] 04/28/2024 2:00 PM EST Office Visit Cardiology at [address] [place] [address] Letty Montejo APRN [facility] [place] [address] 04/29/2024 11:15 AM EST Scheduled View Only Radiation Oncology at [address] [address] 04/30/2024 11:30 AM EST Scheduled View Only Radiation Oncology at [address] [address] 05/01/2024 11:15 AM EST Scheduled View Only Radiation Oncology at [address] [address] 05/04/2024 10:45 AM EST Scheduled View Only Radiation Oncology at [address] [address] 05/05/2024 1:00 PM EST Scheduled View Only Radiation Oncology at [address] [address] 05/05/2024 1:15 PM EST Office Visit Radiation Oncology at [address] [address] Radha Casiano MD [facility] [place] [address] 05/06/2024 1:00 PM EST Scheduled View Only Radiation Oncology at [address] [address] 05/07/2024 1:00 PM EST Scheduled View Only Radiation Oncology at [address] [address] 05/08/2024 1:00 PM EST Scheduled View Only Radiation Oncology at [address] [address] 05/11/2024 11:30 AM EST Scheduled View Only Radiation Oncology at [address] [address] 01/13/2025 1:00 PM EST Office Visit Hematology/Oncology at [address] [address] Lee Ann Jay MD [facility] [place] [address] Leti Anderson APRN [facility] [place] [address] documented as of this encounter Visit Diagnoses Not on filedocumented in this encounter Care Teams Fuels Sales Representative Relationship Specialty Start Date End Date Julia Chatterjee MD [facility] K[address] [place] [address] PCP - General 01/31/10 documented as of this encounter
--- OUTSIDE RECORDS SUMMARY | 2024-04-17 01:25 | XMS_ITS | Encounter Summary ---
[place] [address] Care Team Providers Care Party Coordinator Name Role Phone Julia Chatterjee MD Primary Care Provider [phone] Encounter Details Date Type Department Care Team (Late st Contact Info) Description 09/07/2019 Telephone [place] [address] Jessica Johnson Social History Tobacco Use Types [...] Scheduled View Only Radiation Oncology at [address] [address] 04/20/2024 12:45 PM EST Scheduled View Only Radiation Oncology at [address] [address] 04/21/2024 10:45 AM EST Scheduled View Only Radiation Oncology at [address] [address] 04/21/2024 11:00 AM EST Office Visit Radiation Oncology at [address] [address] Radha Casiano MD [facility] [place] [address] 04/22/2024 3:00 PM EST Scheduled View Only Radiation Oncology at [address] [address] 04/23/2024 3:00 PM EST Scheduled View Only Radiation Oncology at [address] [address] 04/24/2024 3:00 PM EST Scheduled View Only Radiation Oncology at [address] [address] 04/27/2024 11:15 AM EST Scheduled View Only Radiation Oncology at [address] [address] 04/28/2024 11:30 AM EST Scheduled View Only Radiation Oncology at [address] [address] 04/28/2024 12:00 PM EST Office Visit Radiation Oncology at [address] [address] Radha Casiano MD [facility] [place] [address] 04/28/2024 2:00 PM EST Office Visit Cardiology at [address] [place] [address] Letty Montejo, JAYLEN [facility] [place] [address] 04/29/2024 11:15 AM EST Scheduled View Only Radiation Oncology at [address] [address] 04/30/2024 11:30 AM EST Scheduled View Only Radiation Oncology at [address] [address] 05/01/2024 11:15 AM EST Scheduled View Only Radiation Oncology at [address] [address] 05/04/2024 10:45 AM EST Scheduled View Only Radiation Oncology at [address] [address] 05/05/2024 1:00 PM EST Scheduled View Only Radiation Oncology at [address] [address] 05/05/2024 1:15 PM EST Office Visit Radiation Oncology at [address] [address] Radha Casiano MD [facility] [place] [address] 05/06/2024 1:00 PM EST Scheduled View Only Radiation Oncology at [address] [address] 05/07/2024 1:00 PM EST Scheduled View Only Radiation Oncology at [address] [address] 05/08/2024 1:00 PM EST Scheduled View Only Radiation Oncology at [address] [address] 05/11/2024 11:30 AM EST Scheduled View Only Radiation Oncology at [address] [address] 01/13/2025 1:00 PM EST Office Visit Hematology/Oncology at [address] [address] Lee Ann Jay MD [facility] DR HEMATOLOGY [place] [address] Leti Anderson APRN [facility] HEMATOLOGY [place] [address] documented as of this encounter Visit Diagnoses Not on filedocumented in this encounter Care Teams Party Coordinator Relationship Specialty Start Date End Date Julia Chatterjee MD [facility] KINA FELIZ [address] [address] PCP - General 01/31/10 documented as of this encounter
--- OUTSIDE RECORDS SUMMARY | 2024-04-17 01:25 | XMS_ITS | Encounter Summary ---
Author Organization [facility] [place] [address] Care Team Providers Care Marking Machine Tender Name Role Phone Julia Chatterjee MD Primary Care Provider [phone] Reason for Referral * Consultation (Urgent) - Closed Specialty Diagnoses / Procedures Referred By Contshekhar t Referred To Contact Gastroenterology Diagnoses Ulcerative rectosigmoiditis with abscess Hesham Dobson MD [facility] DR [place] [address] [facility] Endoscopy [address] [place] [address] Referral ID Status Reason Start Date Expiration Date V isits Requested Visits Authorized [id number] Closed Consult, Test & Treat 09/03/2019 09/02/2020 1 1 Encounter Details Date Type Department Care Team (Late Contact Info) Description 09/03/2019 [place] [address] Hesham Dobson MD Ulcerative rectosigmoiditis with abscess Social History Tobacco [...] Scheduled View Only Radiation Oncology at [address] [address] 04/20/2024 12:45 PM EST Scheduled View Only Radiation Oncology at [address] [address] 04/21/2024 10:45 AM EST Scheduled View Only Radiation Oncology at [address] [address] 04/21/2024 11:00 AM EST Office Visit Radiation Oncology at [address] [address] Radha Casiano MD [facility] [place] [address] 04/22/2024 3:00 PM EST Scheduled View Only Radiation Oncology at [address] [address] 04/23/2024 3:00 PM EST Scheduled View Only Radiation Oncology at [address] [address] 04/24/2024 3:00 PM EST Scheduled View Only Radiation Oncology at [address] [address] 04/27/2024 11:15 AM EST Scheduled View Only Radiation Oncology at [address] [address] 04/28/2024 11:30 AM EST Scheduled View Only Radiation Oncology at [address] [address] 04/28/2024 12:00 PM EST Office Visit Radiation Oncology at [address] [address] Radha Casiano MD [facility] [place] [address] 04/28/2024 2:00 PM EST Office Visit Cardiology at [address] [place] [address] Letty Montejo APRN [facility] [place] [place] [address] 04/29/2024 11:15 AM EST Scheduled View Only Radiation Oncology at [address] [address] 04/30/2024 11:30 AM EST Scheduled View Only Radiation Oncology at [address] [address] 05/01/2024 11:15 AM EST Scheduled View Only Radiation Oncology at [address] [address] 05/04/2024 10:45 AM EST Scheduled View Only Radiation Oncology at [address] [address] 05/05/2024 1:00 PM EST Scheduled View Only Radiation Oncology at [address] [address] 05/05/2024 1:15 PM EST Office Visit Radiation Oncology at [address] [address] Radha Casiano MD [facility] [place] [place] [address] 05/06/2024 1:00 PM EST Scheduled View Only Radiation Oncology at [address] [address] 05/07/2024 1:00 PM EST Scheduled View Only Radiation Oncology at [address] [address] 05/08/2024 1:00 PM EST Scheduled View Only Radiation Oncology at [address] [address] 05/11/2024 11:30 AM EST Scheduled View Only Radiation Oncology at [address] [address] 01/13/2025 1:00 PM EST Office Visit Hematology/Oncology at [address] [address] Lee Ann Jay MD [facility] DR HEMATOLOGY [place] [address] Leti Anderson APRN [facility] DR HEMATOLOGY [place] [address] Scheduled Referrals Name Type Priority Associated Diagnoses Orde r Schedule Referral to Gastroenterology Outpatient Referral Routine Ulcerative rectosigmoiditis with abscess Ordered: 09/03/2019 documented as of this encounter Visit Diagnoses Diagnosis Ulcerative rectosigmoiditis with abscess documented in this encounter Care Teams Marking Machine Tender Relationship Specialty Start Date End Date Julia Chatterjee MD [facility] [address] [place] [address] PCP - General 01/31/10 documented as of this encounter
--- OUTSIDE RECORDS SUMMARY | 2024-04-17 01:25 | XMS_ITS | Encounter Summary ---
[place] [address] Care Team Providers Care Cooling Tower Operator Name Role Phone Julia Chatterjee MD Primary Care Provider [phone] Encounter Details Date Type Department Care Team (Late st Contact Info) Description 09/08/2019 Telephone [place] [address] Jessica Johnson Social History Tobacco Use Types [...] Scheduled View Only Radiation Oncology at [address] [address] 04/20/2024 12:45 PM EST Scheduled View Only Radiation Oncology at [address] [address] 04/21/2024 10:45 AM EST Scheduled View Only Radiation Oncology at [address] [address] 04/21/2024 11:00 AM EST Office Visit Radiation Oncology at [address] [address] Radha Casiano MD [facility] [place] [address] 04/22/2024 3:00 PM EST Scheduled View Only Radiation Oncology at [address] [address] 04/23/2024 3:00 PM EST Scheduled View Only Radiation Oncology at [address] [address] 04/24/2024 3:00 PM EST Scheduled View Only Radiation Oncology at [address] [address] 04/27/2024 11:15 AM EST Scheduled View Only Radiation Oncology at [address] [address] 04/28/2024 11:30 AM EST Scheduled View Only Radiation Oncology at [address] [address] 04/28/2024 12:00 PM EST Office Visit Radiation Oncology at [address] [address] Radha Casiano MD [facility] [place] [address] 04/28/2024 2:00 PM EST Office Visit Cardiology at [address] [place] [address] Letty Montejo, JAYLEN [facility] [place] [address] 04/29/2024 11:15 AM EST Scheduled View Only Radiation Oncology at [address] [address] 04/30/2024 11:30 AM EST Scheduled View Only Radiation Oncology at [address] [address] 05/01/2024 11:15 AM EST Scheduled View Only Radiation Oncology at [address] [address] 05/04/2024 10:45 AM EST Scheduled View Only Radiation Oncology at [address] [address] 05/05/2024 1:00 PM EST Scheduled View Only Radiation Oncology at [address] [address] 05/05/2024 1:15 PM EST Office Visit Radiation Oncology at [address] [address] Radha Casiano MD [facility] [place] [address] 05/06/2024 1:00 PM EST Scheduled View Only Radiation Oncology at [address] [address] 05/07/2024 1:00 PM EST Scheduled View Only Radiation Oncology at [address] [address] 05/08/2024 1:00 PM EST Scheduled View Only Radiation Oncology at [address] [address] 05/11/2024 11:30 AM EST Scheduled View Only Radiation Oncology at [address] [address] 01/13/2025 1:00 PM EST Office Visit Hematology/Oncology at [address] [address] Lee Ann Jay MD [facility] DR [place] [address] Leti Anderson APRN [facility] [place] [address] documented as of this encounter Visit Diagnoses Not on filedocumented in this encounter Care Teams Cooling Tower Operator Relationship Specialty Start Date End Date Julia Chatterjee MD [facility] KINA FELIZ [address] [address] PCP - General 01/31/10 documented as of this encounter
--- OUTSIDE RECORDS SUMMARY | 2024-04-17 01:25 | XMS_ITS | Encounter Summary ---
Author Organization [facility] [place] [address] Care Team Providers Care Injection Molding Engineer Name Role Phone Julia Chatterjee MD Primary Care Provider [phone] Reason for Referral * Consultation (Routine) - Duplicate Referral Specialty Diagnoses / Procedures Referred By Contact Referred To Contact Infectious Diseases Diagnoses Hepatic abscess Bacteroides fragilis Infection due to Peptostreptococcus species Actinomyces infection Briana King [facility] [place] [address] TexarkanaBriana wilburn [facility] [place] [address] Referral ID Status Reason Start Date Expiration Date Visits Requested Visits Authorized [id number] Duplicate Referral Assume Subset of Care 09/07/2019 09/06/2020 1 1 * Diagnostic Test (Routine) - Closed Specialty Diagnoses / Procedures Referred By Contac t Referred To Contact Radiology Diagnoses Hepatic abscess Procedures IR Drain Check/Change/Remove Barrett Malagon [facility] RADIOLOGY DEPT [place], [place] [id number] [place] [phone] Referral ID Status Reason Start Date Expiration Date V isits Requested Visits Authorized [id number] Closed Specialty Service Requested 09/03/2019 03/04/2021 1 1 Reason for Visit * Reason Comments Fever hepatic abscess * Auth/Cert Specialty Diagnoses / Procedures Referred By Contac t Referred To Contact Diagnoses Hepatic abscess Referral ID Status Reason Start Date Expiration Date Visits Re quested Visits Authorized [id number] 1 1 Encounter Details Date Type Department Care Team (Latest Contact Info) Description 09/01/2019 9:42 PM EDT - 09/07/2019 5:18 PM EDT Hospital Encounter [facility] [address] [phone] Amrik Zapata MD [facility] [place] [address] [place] [address] [place] [address] Terrance Santana MD Hepatic abscess (Primary Dx); Bacteroides fragilis; Infection [...] Leti Parry Patient Age: 68 y.o. Language: Moldovan Race: White Ethnicity: Not nor Admit date: 09/01/2019 Discharge date and time: 09/07/2019 at 2PM Attending Physician: Terrance Santana MD Discharge Physician: Terrance Santana MD Follow-up Recommendations for Providers: Patient has hepatic abscess drain with suction-bulb in place. She is scheduled for drain-check F/U with [facility] radiology on October 02. Please monitor for [...] please contact your inpatient physician through the [facility] Transport Truck Driver . Issues afterhours and on weekends will [...] in 4 weeks for fluoroscopic drain check. Transport Truck Driver(s): Resident/Fellow: Johan Hernandez M.D. Attending: Terrance Gunter [...] Electronically signed by: Terrance Gunter [facility] ([phone]), at 09/02/2019 4:02 PM XR PICC Placement Over 5 Years with Imaging Guidance (IV Team) (Exam End: 09/07/2019 9:43 AM) Impression Appropriate RIGHT PICC placement Thank you for letting us participate in the care of this patient. For questions regarding this report, please contact the number below. Electronically signed by: Jodee Ortega [facility] ([phone]), at 09/07/2019 9:45 AM Pending Studies and [...] - You have a follow-up appointment with [facility] radiology for a drain check on October 02. Please make sure to do flushes as outlined on discharge instructions and keep the area around the suction bulb clean. If you develop fevers, discharge around the drain site, or worsening pain please see your PCP. - You have a follow-up appointment on October 20 with your [facility] hematology team. - Please follow-up with [facility] GI service scheduling to schedule your next [...] is during regular office hours, please call [phone]. If it is after regular office hours, or on weekends or holidays, please call [phone] and ask to speak to the Inspector Hairspring Truing expenditure requisition clerk for Interventional Radiology. XX You have received [...] or foul drainage occurs, please contact your Katya Kearns Revised 12/25/18 Drainage Record NAME: Date of Surgery: Date: Time: If more than one drain, which one: Drainage Amount (per drain) Total Amount (per drain; in 24 hours) APPOINTMENTS: YOU HAVE A HOSPITAL FOLLOW UP WITH YOUR PRIMARY CARE PROVIDER, DR. CHATTERJEE, 09/09/19 11:00 Future Appointments and Orders Future Appointments and Orders Future Appointments Provider Department Dept Phone 10/21/2019 10:00 AM Radha Cooper, UNIT OPERATOR; Lee Ann Jay MD Hematology/Oncology at [facility] Arrive at: [facility] door at end of hallway [phone] Future Orders Complete By Expires IR Drain Check/Change/Remove [[id number] Custom] 10/03/2019 (Approximate) 04/03/2020 Process Instructions: Scheduling Instructions: Questions: Where will study be performed?: [facility] Radiology Reason for exam and clinical [...] Recommendation for Post Discharge IV Antibiotic Management [TZU012 CPT(R)] As directed Process Instructions: If no progress note charted, please enter Clinical details in comments. Scheduling Instructions: Comments: Please Fax all results to: OPAT Program Infectious Disease Section [facility], [place] [address] FAX: After hours, please contact the Infectious Disease Physician expenditure requisition clerk at . If this order was signed greater than 72 hours prior to [facility] discharge, please call to confirm the accuracy [...] Briana King DO Referral for Outpatient Antibiotics [WOQ1462 CPT(R)] As directed Process Instructions: Scheduling Instructions: Comments: Flush per OPAT Protocol Questions: Vendor / contact information: [place] Patient location post discharge: Home Service requested: IV ABX Therapy Start date: Responsible MD post discharge contact info: PCP Referral to Home Health - at DISCHARGE [[id number] CPT(R)] As directed Process Instructions: Scheduling Instructions: Comments: DOCUMENTATION FOR VNA SERVICES (INCLUDING THOSE PATIENTS WITH MEDICARE COVERAGE REQUIRING HOME VNA SERVICES AND/OR HOSPICE SERVICES) PATIENT'S LOCATION: Leti Parry [address] [place] [phone] (home) Cell: Telephone Information: Wood Polisher's Name: Patient In discussion with the attending physician, it is certified that this patient is under their care and that they, or a Nurse Practitioner,Clinical Nurse specialist or Physician Respiratory Support Technician who is working directly with them, had [...] assess and continue rehab for managing ADL's. SCENIC ARTIST: Assist with ADLS HOME HEALTH CARE AGENCY: [facility]. PHONE: [phone] FAX: [phone] Start of care: Day of Discharge FOR [...] to be obtained from this patient's PCP: Julia Chatterjee MD [address] / [facility] [address] All A agencies which cover the area of patient's residence have been reviewed, either verbally nadine writing, and patient/family have chosen the home health care agency noted Questions: Agency name and contact information[facility] Patient location post discharge: Home What services are requested: Registered Nurse Start date: Responsible MD post discharge contact info: PCP Discharge References/Attachments Surgical Drain Care (Moldovan) PICC (Peripherally Inserted Central Catheter) (Moldovan) * Rizwan Lama - 09/07/2019 11:50 AM EDT Images from the original note were not included. Discharge Summary Patient Name: Leti Parry Patient Age: 68 y.o. Language: Moldovan Race: White Ethnicity: Not nor Admit date: 09/01/2019 Discharge date and time: 09/07/2019 at 2PM Attending Physician: Terrance Santana MD Discharge Physician: Terrance Santana MD Follow-up Recommendations for Providers: Patient has hepatic abscess drain with suction-bulb in place. She is scheduled for drain-check F/U with [facility] radiology on October 02. Please monitor for [...] please contact your inpatient physician through the [facility] Transport Truck Driver . Issues afterhours and on weekends will [...] in 4 weeks for fluoroscopic drain check. Transport Truck Driver(s): Resident/Fellow: Johan Hernandez M.D. Attending: Terrance Gunter [...] Electronically signed by: Terrance Gunter [facility] ([phone]), at 09/02/2019 4:02 PM XR PICC Placement Over 5 Years with Imaging Guidance (IV Team) (Exam End: 09/07/2019 9:43 AM) Impression Appropriate RIGHT PICC placement Thank you for letting us participate in the care of this patient. For questions regarding this report, please contact the number below. Electronically signed by: Jodee Ortega [facility] ([phone]), at 09/07/2019 9:45 AM Pending Studies and [...] is during regular office hours, please call [phone]. If it is after regular office hours, or on weekends or holidays, please call [phone] and ask to speak to the Inspector [employer]spring [employer]ing expenditure requisition clerk for Interventional Radiology. XX You have received [...] Dept Phone 10/21/2019 10:00 AM Radha Cooper, UNIT OPERATOR; Lee Ann Jay MD Hematology/Oncology at [facility] Arrive at: [facility] door at end of hallway [phone] Future Orders Complete By Expires IR Drain Check/Change/Remove [[id number] Custom] 10/03/2019 (Approximate) 04/03/2020 Process Instructions: Scheduling Instructions: Questions: Where will study be performed?: [facility] Radiology Reason for exam and clinical [...] Recommendation for Post Discharge IV Antibiotic Management [JXT234 CPT(R)] As directed Process Instructions: If no progress note charted, please enter Clinical details in comments. Scheduling Instructions: Comments: Please Fax all results to: OPAT Program Infectious Disease Section [facility], [place] [address] FAX: After hours, please contact the Infectious Disease Physician expenditure requisition clerk at . If this order was signed greater than 72 hours prior to [facility] discharge, please call to confirm the accuracy [...] King DO Discharge References/Attachments Surgical Drain Care (Moldovan) PICC (Peripherally Inserted Central Catheter) (Moldovan) Associated attestation - Terrance Santana MD - [...] is during regular office hours, please call [phone]. If it is after regular office hours, or on weekends or holidays, please call [phone] and ask to speak to the Inspector Hairspring Truing expenditure requisition clerk for Interventional Radiology. XX You have received [...] out to you for scheduling. Please see [facility] for additional follow-up instructions - Please decrease your prednisone taper to 10mg on SaturdaySeptember 07. You have a follow-up appointment scheduled for the following day, September 08, with your PCP, Dr. Chatterjee. - You have a follow-up appointment with [facility] radiology for a drain check on October 02. Please make sure to do flushes as outlined on discharge instructions and keep the area around the suction bulb clean. If you develop fevers, discharge around the drain site, or worsening pain please see your PCP. - You have a follow-up appointment on October 20 with your [facility] hematology team. - Please follow-up with [facility] GI service scheduling to schedule your next colonoscopy. - ID service scheduling will call you to set up a follow-up appointment. Please reach out if you are not contacted over the next two weeks. * Attachments The following attachments cannot be sent through Care Everywhere. * Surgical Drain Care (Moldovan) * PICC (Peripherally Inserted Central Catheter) (Moldovan) documented in this encounter Medications at Time [...] up Note: SAMUEL Confirmed with Ye From [facility] that patient will be seen 09/08/2019. Hospital teaching was completed with [employer] catalyst manufacturing operator of IV supplies will occur to meet patient's need for SOC on Saturday09/08/2019 Infusion Resource Center [phone] * Liyah Rodriguez RN - 09/07/2019 11:06 [...] go. RNCM made Alejandra at [facility] aware. This plan was formulated with input from patient, family and team. All are in agreement with plan. * Liyah Rodriguez RN - 09/07/2019 9:08 AM EDT Office of Care Management/Information Technology Manager(CM) Home IV Antibiotic Therapy Referral Note. Report [...] Home Health Agency: Patient requested referral to [facility] PHONE: [phone] FAX: [phone] Referrals sent via [employer]. Home Infusion Vendor: Patient requested referral to: [place], [place] or Referrals sent via [employer]. Diabetic Status: Patient is not a diabetic [...] been on any therapy who presented to [facility] at the beginning of August with evidence [...] colitis on steroid taper, recent admission to [facility] for colitis c/b E coli bacteremia tx'd [...] colitis on steroid taper, recent admission to [facility] for colitis c/b E coli bacteremia tx'd [...] minimumof two midnights or is on the [facility] inpatient only procedure list (status C) due to: Ongoing need forIV antibiotics for hepatic abscess Terrance Santana MD Attending, Hospital Medicine Service Pager #[phone] 09/06/2019 * Terrance Enciso RN - 09/05/2019 [...] Santana MD - 09/05/2019 6:08 PM EDT [facility] Attending Daily Progress Note Admit Date: 09/01/2019 ( Hospital Day 3 days ) Active Hospital Problems Diagnosis ??? Hepatic abscess Resolved Hospital Problems No resolved problems to display. ID/CC: 68 y.o. 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 for colitis c/b E coli bacteremia tx'd [...] Date/Time BLOODCX No growth at 3 days. 09/01/20192207 BLOODCX No growth at 3 days. 09/01/20192207 ECG: No results found for: DIAGLINE, QTCCALC [...] in 4 weeks for fluoroscopic drain check. Transport Truck Driver(s): Resident/Fellow: Johan Hernandez M.D. Attending: Terrance Gunter [...] Electronically signed by: Terrance Gunter [facility] ([phone]), at 09/02/2019 4:02 PM Inpatient Medications: Scheduled [...] colitis on steroid taper, recent admission to [facility] for colitis c/b E coli bacteremia tx'd [...] Santana MD Attending, Hospital Medicine Service Pager #[phone] 09/05/2019 * Alexis Caro MD - 09/04/2019 [...] Intake/Output Summary (Last 24 hours) at 09/04/2019 1814 Last data filed at 09/04/2019 0638 Gross [...] Last 3 Lytes Recent Labs 09/04/19 0443 09/03/19 0636 09/01/192207 [...] colitis on steroid taper, recent admission to [facility] for colitis c/b E coli bacteremia tx'd [...] with PO abx Team Pager( Coverage 01/10): #[phone] PCP: Julia Chatterjee MD [phone] Attestation: IPI Certification I certify that I am a D-H credentialed attending provider with admitting privileges and that the patient meets or has met medical necessity to require an inpatient IPI level of care meeting a minimumof two midnights or is on the [facility] inpatient only procedure list (status C) due [...] 4:43 PM EDT OFFICE OF CARE MANAGEMENT Information Technology Manager Follow-up Note Discussed plan of care with Primary team and Nursing to assess continuing care and discharge needs. LOS: 2d Primary Insurance: MEDICARE Secondary Insurance: [employer] CROSS BLUE 2U [place] Pt continues to require hospitalization for hepatic abscess Ongoing Issues: ID Following - awaiting recommendation IVABX 09/03 PICC placement held -possible transition to oral ABX Awaiting cultures/sensitivities Functional Status Prior to Admission: Independent Discharge plan: home when medically ready Transportation: Information Technology Manager to follow with team and family to assist with discharge needs when patient ready for discharge. Liyah Rodriguez SECTIONIZER, Information Technology Manager Pgr. [phone] * Johan Hernandez MD - [...] contact with any questions Johan Hernandez MD Inspector Hairspring Truing * Jeimy Nicholas RN - 09/03/2019 11:30 [...] Hospital Problems No resolved problems to display. [facility] Active Non-Hospital Problems Diagnosis ??? Ulcerative colitis [...] 3 wbc, hgb, hct plt Recent Labs 09/03/1963509/01/19220708/25/19 WBC 4.1 5.5 4.96 HGB 12.0 11.2* 12.4 HCT 39.6 35.4* 39.0 PLATELET 315 308 238 Last 3 Lytes Recent Labs 09/03/19 0609/01/19220708/25/19 NA 133* 134* 131 K 3.8 4.0 [...] BFCX No growth to date.* Recent Labs 09/01/19 2208 BLOODCX No growth at 1 day. No [...] colitis on steroid taper, recent admission to [facility] for colitis c/b E coli bacteremia tx'd [...] Anticipated Disposition: 09/03/2019 Team Pager( Coverage 01/10): #[phone] PCP: Julia Chatterjee MD [phone] Attestation: IPI Certification I certify that I [...] awaiting hepatic abscess drainage, culture speciation. Alexis Caor MD 09/03/2019 * Mary Castro MD - 09/03/2019 6:32 AM EDT GASTROENTEROLOGY & HEPATOLOGY INPATIENT PROGRESS NOTE ID: 68 y.o. F with hx of L sided UC that was diagnosed in 2011 - not currently on any therapy for UC - says it had been mostly controlled by dietary measures, large granular lymphocytic leukemia, who washospitalized in the beginning of August at [facility] with worsening diarrhea/painful defecation/fevers, found to have [...] access tract was dilated and a 10 Colombian locking pigtail drainage catheter was placed. Post [...] washospitalized in the beginning of August at [facility] with worsening diarrhea/painful defecation/fevers to 102.5 found [...] culture sensitivity data on E. Coli from [facility] - Continue prednisone at 20 mg daily [...] Dr. Castro. Hesham Dobson MD Gastroenterology Fellow #[phone] I have seen and evaluated the patient [...] colitis on steroid taper, recent admission to [facility] for colitis c/b E coli bacteremia tx'd [...] Full Code. ? Anticipated Disposition: 09/03/2019 Team Pager(MD Coverage 01/10): #[phone] PCP: Julia Chatterjee MD [phone] Attestation: IPI Certification I certify that I am a D-H credentialed attending provider with admitting privileges and that the patient meets or has met medical necessity to require an inpatient IPI level of care meeting a minimumof two midnights or is on the [facility] inpatient only procedure list (status C) due [...] of : 1950 AGE: 68 y.o. Address: [address] [address] (home) Mobile: Telephone Information: Referring Provider: Self [...] performed by Lee Ann Jay MD at [facility] OSC ??? PRO BONE MARROW BX, NEEDLE/TROCAR Right 01/08/2017 (OSC MSURG) BONE MARROW,BIOPSY (WRVU 1.37) performed by Lee Ann Jay MD at [facility] OSC ??? PRO COLONOSCOPY, BIOPSY 07/05/2011 COLONOSCOPY FLEXIBLE, WITH BX performed by MARY CASTRO at [facility] ENDOSCOPY ??? PRO COLONOSCOPY, REMV LESN, SNARE 07/05/2011 COLONOSCOPY, POLYPECTOMY, REMOVAL LESION BY SNARE performed by MARY CASTRO at [facility] ENDOSCOPY Date/Procedure Meds given/comments 09/02/19 CT [...] performed by Lee Ann Jay MD at [facility] OSC ??? PRO BONE MARROW BX, NEEDLE/TROCAR Right 01/08/2017 ([facility]C MSURG) BONE MARROW,BIOPSY (WRVU 1.37) performed by Lee Ann Jay MD at [facility] OSC ??? PRO COLONOSCOPY, BIOPSY 07/05/2011 COLONOSCOPY FLEXIBLE, WITH BX performed by MARY CASTRO at [facility] ENDOSCOPY ??? PRO COLONOSCOPY, REMV LESN, SNARE 07/05/2011 COLONOSCOPY, POLYPECTOMY, REMOVAL LESION BY SNARE performed by MARY CASTRO at [facility] ENDOSCOPY Medications: No current facility-administered medications [...] injection4-8 mg, 4-8 mg, Intravenous, Q8H PRN, Trerance Santana MD ??? melatonin tablet 3 mg, [...] Santana MD - 09/01/2019 11:30 PM EDT [facility] Serivce Inpatient Admission Note Problem List: There are no hospital problems to display for this patient. Active Non-Hospital Problems Diagnosis ??? Ulcerative colitis ??? Leukopenia ID: 68 y.o. 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 for colitis c/b E coli bacteremia tx'd [...] added. Review of records. Discharge summary from [facility]. Patient admitted 08/14 to 08/16 for colitis [...] performed by Lee Ann Jay MD at [facility] OSC ??? PRO BONE MARROW BX, NEEDLE/TROCAR Right 01/08/2017 ([facility] MSURG) BONE MARROW,BIOPSY (WRVU 1.37) performed by Lee Ann Jay MD at [facility] OSC ??? PRO COLONOSCOPY, BIOPSY 07/05/2011 COLONOSCOPY FLEXIBLE, WITH BX performed by MARY CASTRO at [facility] ENDOSCOPY ??? PRO COLONOSCOPY, REMV LESN, SNARE 07/05/2011 COLONOSCOPY, POLYPECTOMY, REMOVAL LESION BY SNARE performed by MARY CASTRO at [facility] ENDOSCOPY Prior To Admission Medications: (Not [...] file Gets together: Not on file Attends presybeterian service: Not on file Active member of [...] colitis on steroid taper, recent admission to [facility] for colitis c/b E coli bacteremia tx'd [...] Santana MD Attending, Hospital Medicine Service Pager #[phone] until 0800 09/0109/01/2019 IPI Certification I certify that I am a D-H credentialed attending provider with admitting privileges and that the patient meets or has met medical necessity to require an inpatient IPI level of care meeting a minimumof two midnights or is on the [facility] inpatient only procedure list (status C) due [...] to the planned procedure. Hand Hygiene: The taper operator did perform hand hygiene prior to line insertion. Catheter type: PICC Lot number: [id number] Procedure Technique: Skin was prepped with chlorhexidine. [...] 09/04/2019 11:06 AM EDT Hold PICC for Sohan per MD Lama.Floor RN Ailyn nava. documented [...] told by her physician to present to [facility] to be admitted to the GI [...] on phone: None Gets together: None Attends presybeterian service: None Active member of club or [...] onc here). Now has hepatic abscess. In [facility] with ecoli bacteremia last week. finished abx [...] EDT Problem: Health Knowledge, Opportunity to Enhance (Adult,NICU,,Obstetrics,Pediatric) Goal: Knowledgeable about Health Subject/Topic Patient will demonstrate the desired outcomes by discharge/transition of care. Outcome: Outcome (s) achieved Date Met: 09/07/19 09/07/19 0955 Health Knowledge, Opportunity to Enhance (Adult,NICU,,Obstetrics,Pediatric) Knowledgeable about Health Subject/Topic achieves outcome Peripherally Inserted Central Catheter (PICC) Teaching Sheet Peripherally inserted central catheters ([id number]) (PICC) are used when you need IV [...] midline catheter? PICC lines are used for fpc treatments. PICC lines may be used for [...] can be set up via the nurse Information Technology Manager to help you. What are possible complications [...] Vascular Access Device Selection, Insertion, and Management, [facility] Access Systems 12/13. A Review of the Efficacy, Safety, Use, and Administration of [employer], [employer] 2005 * Plan of Care - [...] Review Outcome: Ongoing (Interventions Implemented as Appropriate) 09/04/19223409/06/19 0900 Plan of Care Review Progress progress [...] Review Outcome: Ongoing (Interventions Implemented as Appropriate) 09/04/19223409/05/19 2141 Plan of Care Review Progress progress towards [...] Independent Surveillance [continuous indirect monitoring]: Room near [facility] Patient-specific fall prevention interventions for sensory [...] Review Outcome: Ongoing (Interventions Implemented as Appropriate) 09/04/195 Plan of Care Review Progress progress towards [...] unit this afternoon, no s/s of distress. BEVELRY drain draining mod amdount serosanguinous fluid. Willcontinue [...] (on steroid taper). She was admitted to [facility] earlier this month for colitis c/b E.coli [...] I/O: Intake/Output Summary (Last 24 hours) at 09/05/20191841 Last data filed at 09/05/2019 1100 Gross [...] (less so than yesterday) Labs Recent Labs 09/05/1945109/04/1944209/03/19635 WBC 1.5* 1.9* 4.1 HGB 11.0* 12.0 12.0 HCT 35.8 38.4 39.6 PLATELET 266 296 315 Recent Labs 09/04/1944209/03/1963509/01/192207 NA 138 133* 134* K 4.1 3.8 4.0 CL 101 97* 94* CO2 27 26 27 BUN 9 10 10 CREATININE 0.49* 0.54* 0.67* Recent Labs 09/03/1963509/01/192207 AST 15 25 ALT 32* 44* ALKPHOS 105 112* BILITOT 0.4 0.3 BILIDIR 0.1 0.1 Recent Labs 09/04/1944209/03/1963509/01/192207 CALCIUM 9.4 9.2 8.8 Recent Labs 09/01/192207 INR 1.2 PT 13.6* PTT 31 No results for input(s): CK, TROPONINT in the last 168 hours. No results for input(s): POCGLU in the last 168 hours. No results for input(s): PROBNP in the last 168 hours. Micro Microbiology Results (Last 30 days) Procedure Component Value Units Date/Time Body Fluid Culture, Aerobic & Anaerobic Abdominal Fluid [[id number]] Collected: 09/02/19 1300 Lab Status: Preliminary result Specimen: Abdominal Fluid Updated: 09/05/19 1413 Body Fluid Culture, Aerobic [[id number]] (Abnormal) Collected: 09/02/19 1300 Lab Status: Preliminary result Specimen: Abdominal Fluid Updated: 09/05/19 1413 Body Fluid Culture Few Actinomyces species Gram Stain -- Many Neutrophils seen Many Gram Positive Cocci seen Few Gram Negative Rods seen Rare Gram Positive Rods seen Anaerobic Culture [[id number]] (Abnormal) Collected: 09/02/19 1300 Lab Status: Preliminary result Specimen: Abdominal Fluid Updated: 09/05/19 1251 Anaerobic Culture -- Moderate Clostridium species, not C perfringens Moderate Bacteroides fragilis Group Moderate Peptostreptococcus species COVID-19 PCR [[id number]] Collected: 09/02/19 0141 Lab Status: Final result Specimen: Nasopharyngeal Swab Updated: 09/02/19416 Rapid SARS-CoV-2 RNA Not Detected Comment: This [...] using the Simplexa COVID-19 Direct Assay by [place] DEPT. as authorized by the FDA issued Emergency [...] Department of Pathology and Laboratory Medicine at [facility], certified under the Clinical Laboratory Improvement Amendments [...] Information for Healthcare Professionals (https://www.cdc.gov/coronavirus/2019-ncov/hcp/index.html). SARS-CoV-2 Source PREVENTION SPECIALIST Swab Blood culture [[id number]] Collected: 09/01/192207 Lab Status: Preliminary result Specimen: Blood Updated: 09/04/192300 Blood Culture No growth at 3 days. Blood culture [[id number]] Collected: 09/01/192207 Lab Status: Preliminary result Specimen: [...] Rizwan Lama MS4 Hospital Medicine Team pager #[phone] Personal pager [phone] Associated attestation - Terrance Santana MD - 09/06/2019 1:06 PM EDT I agree with the above note written by BOB Cao. Please see my additional, separate notefor any changes or amendments. Terrance Santana MD * Plan of Care - Mavis Ahuja RN - 09/04/2019 10:45 PM EDT Problem: Patient Care Overview Goal: Plan of Care Review Outcome: Ongoing (Interventions Implemented as Appropriate) 09/04/19 5571 Plan of Care Review Progress progress towards [...] near nurses station, call new within reach, [facility] Patient-specific fall prevention interventions for sensory deficits [...] With -- patient;spouse * Consult Note - Pietroakila Briana DO Yola - 09/04/2019 9:43 AM EDT Images from [...] hepatic abscess. Notably, patient was admitted to [facility] earlier this month in the setting of [...] LIVER 09/02/2019 CT Guided Aspiration Liver 09/02/2019 [facility] RAD CAT SCAN ??? PRO BONE MARROW ASPIRATION W/BX THROUGH SAME INCISION/SITE Right 01/08/2017 ([facility] MSURG) BONE MARROW ASP PERFORMED W/BX THRU BX INCISION (WRVU 0.16) performed by Lee Ann Jay MD at [facility] OSC ??? PRO BONE MARROW BX, NEEDLE/TROCAR Right 01/08/2017 ([facility] MSURG) BONE MARROW,BIOPSY (WRVU 1.37) performed by Lee Ann Jay MD at [facility] OSC ??? PRO COLONOSCOPY, BIOPSY 07/05/2011 COLONOSCOPY FLEXIBLE, WITH BX performed by MARY CASTRO at [facility] ENDOSCOPY ??? PRO COLONOSCOPY, REMV LESN, SNARE 07/05/2011 COLONOSCOPY, POLYPECTOMY, REMOVAL LESION BY SNARE performed by MARY CASTRO at [facility] ENDOSCOPY ??? PRO SIGMOIDOSCOPY, DIAGNOSTIC N/A 09/02/2019 FLEXIBLE SIGMOIDOSCOPY performed by Mary Castro MD at [facility] ENDOSCOPY Medications: ??? oxyCODONE (Roxicodone) tablet [...] Family History: Noncontributory Social History: Lives in [facility] with her 6 drinks per week Nonsmoker No illicits No pets Travel - to [place] in Apr, to [place] in May No camping, no suspicious food [...] focal deficits Laboratory: Recent Labs 09/04/19 0443 09/03/1936 09/01/192207 WBC [...] PROTEINUADIP 30 (A) 09/01/2019 2333 GLUCOSEU Negative 09/01/20192332 KETONESUA Trace (A) 09/01/2019 2333 UROBILIUADIP Normal 09/01/20192332 BLOODUADIP Trace (A) 09/01/2019 2333 NITRATEUA Negative 09/01/20193 LEUKOESTERUA Negative 09/01/20193 WBCUA 1 09/01/2019 2333 BILIRUBINUA Negative 09/01/20192332 Micro: Microbiology Results (Last 30 days) Procedure Component Value Units Date/Time Body Fluid Culture, Aerobic & Anaerobic Abdominal Fluid [[id number]] Collected: 09/02/19 1300 Lab Status: Preliminary result Specimen: Abdominal Fluid Updated: 09/03/19 1409 Body Fluid Culture, Aerobic [[id number]] (Abnormal) Collected: 09/02/19 1300 Lab Status: Preliminary result Specimen: Abdominal Fluid Updated: 09/03/19 0807 Body Fluid Culture No growth to date. Gram Stain -- Many Neutrophils seen Many Gram Positive Cocci seen Few Gram Negative Rods seen Rare Gram Positive Rods seen Anaerobic Culture [[id number]] Collected: 09/02/19 1300 Lab Status: Preliminary result Specimen: Abdominal Fluid Updated: 09/03/19 1409 Anaerobic Culture No anaerobic organisms isolated to date COVID-19 PCR [[id number]] Collected: 09/02/19 0141 Lab Status: Final result [...] using the Simplexa COVID-19 Direct Assay by [place] DEPT. as authorized by the FDA issued Emergency [...] Department of Pathology and Laboratory Medicine at [facility], certified under the Clinical Laboratory Improvement Amendments [...] Information for Healthcare Professionals (https://www.cdc.gov/coronavirus/2019-ncov/hcp/index.html). SARS-CoV-2 Source PREVENTION SPECIALIST Swab Blood culture [[id number]] Collected: 09/01/192207 Lab Status: Preliminary result Specimen: Blood Updated: 09/03/192300 Blood Culture No growth at 2 days. Blood culture [[id number]] Collected: 09/01/192207 Lab Status: Preliminary result Specimen: [...] therapy for her abscess. During admission to [facility], there was CT evidence of a low [...] initial CT imaging. Her blood cultures at [facility] had grown E. Coli and strep constellatus; [...] from blood cultures during previous admission to [facility] - hold PICC placement, as it is [...] been on any therapy and presented to [facility] at the beginning of August with evidence [...] Assistive Device Utilized none -- -- 09/03/19211109/04/19 0200 09/04/19 0356 Daily Care Interventions Self-Care Promotion -- [...] (on steroid taper). She was admitted to [facility] earlier this month for colitis c/b E.coli [...] Weight 09/01/19 1953 62.6 kg (138 lb) I/O: Intake/Output Summary [...] along R costal margin Labs Recent Labs 09/04/193 09/03/1963509/01/192207 WBC 1.9* 4.1 5.5 HGB 12.0 12.0 11.2* HCT 38.4 39.6 35.4* PLATELET 296 315 308 Recent Labs 09/04/193 09/03/1963509/01/192207 NA 138 133* 134* K 4.1 3.8 4.0 CL 101 97* 94* CO2 27 26 27 BUN 9 10 10 CREATININE 0.49* 0.54* 0.67* Recent Labs 09/03/1963509/01/192207 AST 15 25 ALT 32* 44* ALKPHOS 105 112* BILITOT 0.4 0.3 BILIDIR 0.1 0.1 Recent Labs 09/04/19 0443 09/03/19 0636 09/01/192207 CALCIUM 9.4 9.2 8.8 Recent Labs [...] Fluid Culture, Aerobic & Anaerobic Abdominal Fluid [[id number]] Collected: 09/02/19 1300 Lab Status: Preliminary result Specimen: Abdominal Fluid Updated: 09/03/19 1409 Body Fluid Culture, Aerobic [[id number]] (Abnormal) Collected: 09/02/19 1300 Lab Status: Preliminary result Specimen: Abdominal Fluid Updated: 09/03/19 0807 Body Fluid Culture No growth to date. Gram Stain -- Many Neutrophils seen Many Gram Positive Cocci seen Few Gram Negative Rods seen Rare Gram Positive Rods seen Anaerobic Culture [[id number]] Collected: 09/02/19 1300 Lab Status: Preliminary result Specimen: Abdominal Fluid Updated: 09/03/19 1409 Anaerobic Culture No anaerobic organisms isolated to date COVID-19 PCR [[id number]] Collected: 09/02/19 0141 Lab Status: Final result [...] using the Simplexa COVID-19 Direct Assay by [place] DEPT. as authorized by the FDA issued Emergency [...] Department of Pathology and Laboratory Medicine at [facility], certified under the Clinical Laboratory Improvement Amendments [...] Information for Healthcare Professionals (https://www.cdc.gov/coronavirus/2019-ncov/hcp/index.html). SARS-CoV-2 Source PREVENTION SPECIALIST Swab Blood culture [[id number]] Collected: 09/01/192207 Lab Status: Preliminary result Specimen: Blood Updated: 09/03/192300 Blood Culture No growth at 2 days. Blood culture [[id number]] Collected: 09/01/192207 Lab Status: Preliminary result Specimen: [...] Rizwan Lama MS4 Hospital Medicine Team pager #[phone] Personal pager #[phone] * Plan of Care - Marylu Shah [...] (on steroid taper). She was admitted to [facility] earlier this month for colitis c/b E.coli [...] 10 10 CREATININE 0.54* 0.67* Recent Labs 09/03/1963509/01/192207 AST 15 25 ALT 32* 44* ALKPHOS [...] Fluid Culture, Aerobic & Anaerobic Abdominal Fluid [[id number]] Collected: 09/02/19 1300 Lab Status: In process Specimen: Abdominal Fluid Updated: 09/03/19 0807 Body Fluid Culture, Aerobic [[id number]] (Abnormal) Collected: 09/02/19 1300 Lab Status: Preliminary result Specimen: Abdominal Fluid Updated: 09/03/19 0807 Body Fluid Culture No growth to date. Gram Stain -- Many Neutrophils seen Many Gram Positive Cocci seen Few Gram Negative Rods seen Rare Gram Positive Rods seen COVID-19 PCR [[id number]] Collected: 09/02/19 0141 Lab Status: Final result [...] using the Simplexa COVID-19 Direct Assay by [place] DEPT. as authorized by the FDA issued Emergency [...] Department of Pathology and Laboratory Medicine at [facility], certified under the Clinical Laboratory Improvement Amendments [...] Information for Healthcare Professionals (https://www.cdc.gov/coronavirus/2019-ncov/hcp/index.html). SARS-CoV-2 Source PREVENTION SPECIALIST Swab Blood culture [[id number]] Collected: 09/01/192207 Lab Status: Preliminary result Specimen: Blood Updated: 09/02/192300 Blood Culture No growth at 1 day. Blood culture [[id number]] Collected: 09/01/192207 Lab Status: Preliminary result Specimen: [...] this afternoon has been well-managed with acetaminophen (4/10 by 2pm). Remaining pain is localized to [...] to home in 2 days Rizwan Lama [facility] Medicine Team pager #[phone] Personal pager #[phone] * Plan of Care - Sabrina Castro RN - 09/03/2019 12:26 AM EDT Problem: Patient Care Overview Goal: Plan of Care Review Outcome: Ongoing (Interventions Implemented as Appropriate) 09/02/1982409/02/194 Plan of Care Review Progress progress toward [...] (on steroid taper). She was admitted to [facility] earlier this month for colitis c/b E.coli [...] Intake/Output Summary (Last 24 hours) at 09/02/2019 1726 Last data filed at 09/02/2019 1300 Gross [...] Fluid Culture, Aerobic & Anaerobic Abdominal Fluid [[id number]] Collected: 09/02/19 1300 Lab Status: In process Specimen: Abdominal Fluid Updated: 09/02/19 1527 Body Fluid Culture, Aerobic [[id number]] (Abnormal) Collected: 09/02/19 1300 Lab Status: Preliminary result Specimen: Abdominal Fluid Updated: 09/02/19 1527 Gram Stain -- Many Neutrophils seen Many Gram Positive Cocci seen Few Gram Negative Rods seen Rare Gram Positive Rods seen COVID-19 PCR [[id number]] Collected: 09/02/19 0141 Lab Status: Final result [...] using the Simplexa COVID-19 Direct Assay by [place] DEPT. as authorized by the FDA issued Emergency [...] Department of Pathology and Laboratory Medicine at [facility], certified under the Clinical Laboratory Improvement Amendments [...] Information for Healthcare Professionals (https://www.cdc.gov/coronavirus/2019-ncov/hcp/index.html). SARS-CoV-2 Source PREVENTION SPECIALIST Swab Imaging/Studies: CT A/P (08/31): showed R [...] a 1-week history of intermittent fevers. Ms. Sohan's image-guided aspiration this afternoon was successful and. [...] home in 2 days Rizwan Lama, MS4 Hospital Medicine Team pager #[phone] Personal pager #[phone] * Consult Note - Mary Castro MD [...] hospitalized in the beginning of August at [facility] with worsening diarrhea/painful defecation/fevers to 102.5 found to have E.coli bacteremia and L sided colitis on CT - discharged on PO antibiotics and Prednisone, had been recovering well but now developed worsening fevers again with imaging showing an new R hepatic abscess. She had seen Dr. Oliveros in GI telehealth on 08/17 after her hospitalization at [facility], plan was to quick taper Prednisone which [...] file Gets together: Not on file Attends [employer] service: Not on file Active member of [...] Total Protein 7.3 09/01/2019 IMAGING: Reviewed in eD CT AP 09/01/19: CT AP 08/11/19: ENDOSCOPY: Reviewed in eD Colonoscopy 08/12/19: Path: A. RECTUM, BIOPSY: - [...] washospitalized in the beginning of August at [facility] with worsening diarrhea/painful defecation/fevers to 102.5 found [...] culture sensitivity data on E. Coli from [facility] - Continue prednisone taper as previously planned - Once she is feeling better we will plan for a bowel prep with a full colonoscopy to re-evaluate response of colitis to antibiotics and extent of involvement The plan as outlined above was discussed with Dr. Castro. Hesham Dobson MD Gastroenterology Fellow #[phone] I have seen and evaluated the patient [...] colitis on steroid taper, recent admission to [facility] for colitis c/b E coli bacteremia tx'd [...] Past 30 Days: Yes patient admitted to [facility] 08/14-08/16. Patient returned toED on 08/27. Patient [...] Montez would be surrogate decision maker per [place] surrogate decision making law. Any patient receiving care at [facility] must abide by [place] law. The hierarchy for surrogate decision making [...] (i) The agent with financial power of contract attorney or a conservator appointed in accordance [...] Health/Prescription Coverage: Primary Insurance: MEDICARE Secondary Insurance: [facility] Prescription Coverage: Yes through [employer] [facility] Other: N/A Primary Care Provider: Julia Chatterjee MD [phone] Patient/Caregiver Goals of Treatment: To be 100% [...] colitis on steroid taper, recent admission to [facility] for colitis c/b E coli bacteremia tx'd with cipro who has had ongoing fevers and found to have hepatic abscess. Patient is independent with ADLs/IADLs and lives with a supportive . Patient is closely followed by GI and Hematology. Patient feels she is safe to go home without services. Patient's will provide transportation viaprivate car at discharge. Patient has insurance coverage through [employer] and [facility]. Patient declines Advance Directive paperwork at this time. Plan: A member of the Care Management team will continue to monitor progress, follow for continuityof care and assist with transition of care planning. JAMES Enrique Pager: [phone] * Plan of Care - Claudine Huertas [...] Scheduled View Only Radiation Oncology at [address] [phone] 04/20/2024 12:45 PM EST Scheduled View Only Radiation Oncology at [address] [phone] 04/21/2024 10:45 AM EST Scheduled View Only Radiation Oncology at [address] [phone] 04/21/2024 11:00 AM EST Office Visit Radiation Oncology at [address] [phone] Radha Casiano MD [facility] [place] [address] 04/22/2024 3:00 PM EST Scheduled View Only Radiation Oncology at [address] [phone] 04/23/2024 3:00 PM EST Scheduled View Only Radiation Oncology at [address] [phone] 04/24/2024 3:00 PM EST Scheduled View Only Radiation Oncology at [address] [phone] 04/27/2024 11:15 AM EST Scheduled View Only Radiation Oncology at [address] [phone] 04/28/2024 11:30 AM EST Scheduled View Only Radiation Oncology at [address] [phone] 04/28/2024 12:00 PM EST Office Visit Radiation Oncology at [address] [phone] Radha Casiano MD [facility] [place] [address] 04/28/2024 2:00 PM EST Office Visit Cardiology at [address] [place] [address] Letty Montejo, JAYLEN [facility] [place] [address] 04/29/2024 11:15 AM EST Scheduled View Only Radiation Oncology at [address] [phone] 04/30/2024 11:30 AM EST Scheduled View Only Radiation Oncology at [address] [phone] 05/01/2024 11:15 AM EST Scheduled View Only Radiation Oncology at [address] [phone] 05/04/2024 10:45 AM EST Scheduled View Only Radiation Oncology at [address] [phone] 05/05/2024 1:00 PM EST Scheduled View Only Radiation Oncology at [address] [phone] 05/05/2024 1:15 PM EST Office Visit Radiation Oncology at [address] [phone] Radha Casiano MD [facility] [place] [address] 05/06/2024 1:00 PM EST Scheduled View Only Radiation Oncology at [address] [phone] 05/07/2024 1:00 PM EST Scheduled View Only Radiation Oncology at [address] [phone] 05/08/2024 1:00 PM EST Scheduled View Only Radiation Oncology at [address] [phone] 05/11/2024 11:30 AM EST Scheduled View Only Radiation Oncology at [address] [phone] 01/13/2025 1:00 PM EST Office Visit Hematology/Oncology at [address] [phone] Lee Ann Jay MD [facility] [place] [address] Leti Anderson APRN [facility] [place] [address] Scheduled Referrals Name Type Priority Associated Diagnoses [...] 09/02/2019 1:00 PM EDT RAPID COVID-19 PCR ([facility]) STAT 09/02/2019 1:41 AM EDT URINALYSIS MICROSCOPIC [...] STAT 09/01/2019 7:57 PM EDT Sigmoidoscopy, Diagnostic (23999) colitis documented in this encounter Results * [...] ?? Alexis Caro MD IMG IR ORDERABLES * Place PICC Line: Contact Vascular Access Page [phone] Extremity to exclude: No restrictions; Is PICC [...] to the planned procedure. Hand Hygiene: The taper operator did perform hand hygiene prior to line insertion. Catheter type: PICC Lot number: [id number] Procedure Technique: Skin was prepped with chlorhexidine. [...] cm External: 2 cm Tip in SVC lynn Ortega The line was not placed over a [...] Electronically signed by: Jodee Ortega [facility] ([phone]), at 09/07/2019 9:45 AM Narrative 09/07/2019 9:45 [...] Electronically signed by: Jodee Ortega [facility]([phone]), at 09/07/2019 9:45 AM Terrance Santana MD IMG FLUORO ORDERABLE S * (ABNORMAL) Differential, Automated (09/07/2019 6:23 AM EDT) Neutrophil % 65.2 % [facility] Neutrophil Absolute 4.83 1.70 - 6.10 x10(3)/ L [facility] Lymph % 20.6 % [facility] Lymphocytes Abs 1.5 0.9 - 3.2 x10(3)/ L [facility] Monocyte % 6.7 % [facility] Monocyte Abs 0.5 0.3 - 0.9 x10(3)/ L [facility] Eos % 0.1 % [facility] Eosinophils Abs 0.0 0.0 - 0.4 x10(3)/[facility] Basophil % 0.1 % [facility] Baso Absolute 0.0 0.0 - 0.1 x10(3)/ L [facility] Immature Gran % 7.30 % [facility] Comment: Immature granulocytes(IG's)percentage and absolute count will include metamyelocytes, myelocytes, and promyelocytes. Blood smears from CBCs yielding IG's will be scanned manually for concordance. If this scan disagrees with the automated IG or if promyelocytes are noted, a manual differential will be performed. Immature Gran Absolute 0.54(H) 0.00 - 0.04 x10(3)/ L [facility] Blood specimen (specimen) 09/07/2019 6:23 AM EDT 09/07/2019 6:48 AM EDT Narrative Resulting Agency Comment Spec In Lab Terrance Santana MD HEMATOLOGY ORDERABLE S [facility] [place] [address] * (ABNORMAL) Hemogram (09/07/2019 6:23 AM EDT) White Blood Cell 7.4 4.0 - 9.5 x10(3)/mc L [facility] Red Blood Cell 4.23 4.00 - 5.21 x10(6)/ L [facility] Hemoglobin 11.7 11.7 - 15.5 gm/dL [facility] Hematocrit 38.0 35.7 - 45.8 % [facility] Mean Cell Volume 89.8 82.6 - 94.4 [facility] Mean Cell Hemoglobin 27.7 27.1 - 32.0 pg [facility] Mean Cell Hemoglobin Concentration 30.8(L) 31.7 - 35.0 gm/dL [facility] Platelet 306 145 - 357 x10(3)/mc L [facility] RDW Standard Deviation 46.4(H) 37.0 - 46.0 [facility] RDW coefficient of variation 14.3(H) 11.5 - 14.1 % [facility] Mean Platelet Volume 9.9 7.6 - 12.9 [facility] NRBC% auto 0.0 % [facility] NRBC Absolute 0.000 0.000 - 0.000 x10(3)/[facility] Blood specimen (specimen) 09/07/2019 6:23 AM EDT 09/07/2019 6:48 AM EDT Narrative Resulting Agency Comment Spec In Lab Terrance Santana MD HEMATOLOGY ORDERABLE S [facility] [place] [address] * (ABNORMAL) Differential, Automated (09/06/2019 9:50 AM EDT) Pathologist [facility] Neutrophil % 75.8 % [facility] Neutrophil Absolute 8.52(H) 1.70 - 6.10 x10(3)/mc L [facility] Lymph % 10.1 % [facility] Lymphocytes Abs 1.1 0.9 - 3.2 x10(3)/mc L [facility] Monocyte % 7.5 % [facility] Monocyte Abs 0.8 0.3 - 0.9 x10(3)/mc L [facility] Eos % 0.1 % [facility] Eosinophils Abs 0.0 0.0 - 0.4 x10(3)/[facility] Basophil % 0.4 % [facility] Baso Absolute 0.0 0.0 - 0.1 x10(3)/mc L [facility] Immature Gran % 6.10 % [facility] Comment: Immature granulocytes(IG's)percentage and absolute count will include metamyelocytes, myelocytes, and promyelocytes. Blood smears from CBCs yielding IG's will be scanned manually for concordance. If this scan disagrees with the automated IG or if promyelocytes are noted, a manual differential will be performed. Immature Gran Absolute 0.69(H) 0.00 - 0.04 x10(3)/mc L [facility] Blood specimen (specimen) 09/06/2019 9:50 AM EDT 09/06/2019 10:44 AM EDT Narrative Resulting Agency Comment Spec In Lab Terrance Santana MD HEMATOLOGY ORDERABLE S [facility] [place] [address] * (ABNORMAL) Hemogram (09/06/2019 9:50 AM EDT) White Blood Cell 11.2(H) 4.0 - 9.5 x10(3)/mc L [facility] Red Blood Cell 4.38 4.00 - 5.21 x10(6)/mc L [facility] Hemoglobin 12.3 11.7 - 15.5 gm/dL [facility] Hematocrit 39.6 35.7 - 45.8 % [facility] Mean Cell Volume 90.4 82.6 - 94.4 fL [facility] Mean Cell Hemoglobin 28.1 27.1 - 32.0 pg [facility] Mean Cell Hemoglobin Concentration 31.1(L) 31.7 - 35.0 gm/dL [facility] Platelet 300 145 - 357 x10(3)/ L [facility] RDW Standard Deviation 46.3(H) 37.0 - 46.0 [facility] RDW coefficient of variation 14.0 11.5 - 14.1 % [facility] Mean Platelet Volume 10.0 7.6 - 12.9 fL [facility] NRBC% auto 0.0 % [facility] NRBC Absolute 0.000 0.000 - 0.000 x10(3)/ L [facility] Blood specimen (specimen) 09/06/2019 9:50 AM EDT 09/06/2019 10:44 AM EDT Narrative Resulting Agency Comment Spec In Lab Terrance Santana MD HEMATOLOGY ORDERABLE S [facility] [place] [address] * Scan, Peripheral Blood (09/05/2019 4:52 AM EDT) Pathologist [facility] Plat estimate Normal [facility] RBC Morphology Abnormal [facility] Ovalocytes 1-5 /HPF [facility] Blood specimen (specimen) 09/05/2019 4:52 AM EDT 09/05/2019 5:06 AM EDT Narrative Resulting Agency Comment Spec In Lab Terrance Santana MD HEMATOLOGY ORDERABLE S [facility] [place] [address] * (ABNORMAL) Differential, Automated (09/05/2019 4:52 AM EDT) Neutrophil % 27.5 % [facility] Neutrophil Absolute 0.42(Crit ical) 1.70 - 6.10 x10(3)/mc L [facility] Comment: This result has been called to TOM AHUJA by RADHA JOHN on 09 05 2019 at 0520, and has been read back. Lymph % 46.4 % [facility] Lymphocytes Abs 0.7(L) 0.9 - 3.2 x10(3)/mc L [facility] Monocyte % 17.6 % [facility] Monocyte Abs 0.3 0.3 - 0.9 x10(3)/mc L [facility] Eos % 0.0 % [facility] Eosinophils Abs 0.0 0.0 - 0.4 x10(3)/mc L [facility] Basophil % 0.0 % [facility] Baso Absolute 0.0 0.0 - 0.1 x10(3)/mc L [facility] Immature Gran % 8.50 % [facility] Comment: Immature granulocytes(IG's)percentage and absolute count will include metamyelocytes, myelocytes, and promyelocytes. Blood smears from CBCs yielding IG's will be scanned manually for concordance. If this scan disagrees with the automated IG or if promyelocytes are noted, a manual differential will be performed. Immature Gran Absolute 0.13(H) 0.00 - 0.04 x10(3)/mc L [facility] Blood specimen (specimen) 09/05/2019 4:52 AM EDT 09/05/2019 5:06 AM EDT Narrative Resulting Agency Comment Spec In Lab Terrance Santana MD HEMATOLOGY ORDERABLE S [facility] [place] [address] * (ABNORMAL) Hemogram (09/05/2019 4:52 AM EDT) White Blood Cell 1.5(Criti tosha) 4.0 - 9.5 x10(3)/mc L [facility] Comment: This result has been called to TOM AHUJA by RADHA JOHN on 09 05 2019 at 0551, and has been read back. Red Blood Cell 3.95(L) 4.00 - 5.21 x10(6)/mc L [facility] Hemoglobin 11.0(L) 11.7 - 15.5 gm/dL [facility] Hematocrit 35.8 35.7 - 45.8 % [facility] Mean Cell Volume 90.6 82.6 - 94.4 fL [facility] Mean Cell Hemoglobin 27.8 27.1 - 32.0 pg [facility] Mean Cell Hemoglobin Concentration 30.7(L) 31.7 - 35.0 gm/dL [facility] Platelet 266 145 - 357 x10(3)/mc L [facility] RDW Standard Deviation 45.3 37.0 - 46.0 fL [facility] RDW coefficient of variation 13.7 11.5 - 14.1 % [facility] Mean Platelet Volume 9.7 7.6 - 12.9 fL [facility] NRBC% auto 0.0 % [facility] NRBC Absolute 0.000 0.000 - 0.000 x10(3)/mc L [facility] Blood specimen (specimen) 09/05/2019 4:52 AM EDT 09/05/2019 5:06 AM EDT Narrative Resulting Agency Comment Spec In Lab Terrance Santana MD HEMATOLOGY ORDERABLE S [facility] [place] [address] * Scan, Peripheral Blood (09/04/2019 4:43 AM EDT) Pathologist [facility] Plat estimate Normal [facility] RBC Morphology Normal [facility] Blood specimen (specimen) 09/04/2019 4:43 AM EDT 09/04/2019 5:23 AM EDT Narrative Resulting Agency Comment Spec In Lab Terrance Santana MD HEMATOLOGY ORDERABLE S Performing Organization Address City/[facility]/ZIP Co de Phone Number [facility] [place] [address] * (ABNORMAL) Basic Metabolic Panel (non-fasting) (09/04/2019 4:43 AM EDT) [facility] Glucose 88 65 - 199 mg/dL [facility] Comment:Diabetes: >=200 mg/d L plus symptoms Blood Urea Nitrogen 9 8 - 18 mg/dL [facility] Creatinine 0.49(L) 0.70 - 1.20 mg/dL [facility] Sodium 138 135 - 145 mmol/L [facility] Potassium 4.1 3.5 - 5.0 mmol/L [facility] Comment: Please note: ??Patients with WBC >100,000 may have falsely elevated Potassium levels. ??For accurate Potassium quantification in these patients send serum separator tube (gold top) for subsequent determinations. ??Contact the Clinical Chemistry Laboratory if there are any questions. Chloride 101 98 - 107 mmol/L [facility] Carbon Dioxide 27 22 - 31 mmol/L [facility] Anion Gap 10 5 - 15 mmol/L [facility] Calcium 9.4 8.5 - 10.5 mg/dL [facility] Est Glomerular Filtration Rate 101 >=60 mL/min/1. 73 m?? [facility] Comment: The eGFR was calculated using the CKD-EPI equation. As with all creatinine based estimates of kidney function, eGFR values calculated with the CKD-EPI equation are not accurate in patients with acute kidney failure, extremes of body mass or the acutely ill. [email or web address] eGFR 117 >=60 mL/min/1. 73 m?? [facility] Comment: The eGFR was calculated using the CKD-EPI equation. As with all creatinine based estimates of kidney function, eGFR values calculated with the CKD-EPI equation are not accurate in patients with acute kidney failure, extremes of body mass or the acutely ill. [email or web address] [place] Blood specimen (specimen) 09/04/2019 4:43 AM EDT 09/04/2019 5:00 AM EDT Narrative Resulting Agency Comment Spec In Lab Alexis Caro MD CHEMISTRY ORDERABLES Performing Organization Address City/State/[facility] Co de Phone Number [facility] [place] [address] * (ABNORMAL) Differential, Automated (09/04/2019 4:43 AM EDT) Neutrophil % 32.3 % [facility] Neutrophil Absolute 0.60(L) 1.70 - 6.10 x10(3)/mc L [facility] Lymph % 47.3 % [facility] Lymphocytes Abs 0.9 0.9 - 3.2 x10(3)/mc L [facility] Monocyte % 14.0 % [facility] Monocyte Abs 0.3 0.3 - 0.9 x10(3)/mc L [facility] Eos % 0.0 % [facility] Eosinophils Abs 0.0 0.0 - 0.4 x10(3)/mc L [facility] Basophil % 0.5 % [facility] Baso Absolute 0.0 0.0 - 0.1 x10(3)/mc L [facility] Immature Gran % 5.90 % [facility] Comment: Immature granulocytes(IG's)percentage and absolute count will include metamyelocytes, myelocytes, and promyelocytes. Blood smears from CBCs yielding IG's will be scanned manually for concordance. If this scan disagrees with the automated IG or if promyelocytes are noted, a manual differential will be performed. Immature Gran Absolute 0.11(H) 0.00 - 0.04 x10(3)/mc L [facility] Blood specimen (specimen) 09/04/2019 4:43 AM EDT 09/04/2019 5:23 AM EDT Narrative Resulting Agency Comment Spec In Lab Terrance Santana MD HEMATOLOGY ORDERABLE S [facility] [place] [address] * (ABNORMAL) Hemogram (09/04/2019 4:43 AM EDT) White Blood Cell 1.9(Criti tosha) 4.0 - 9.5 x10(3)/mc L [facility] Comment: This result has been called to FLO DEE by MIMA ELISE on 09 04 2019 at 0608, and has been read back. Red Blood Cell 4.32 4.00 - 5.21 x10(6)/mc L [facility] Hemoglobin 12.0 11.7 - 15.5 gm/dL [facility] Hematocrit 38.4 35.7 - 45.8 % [facility] Mean Cell Volume 88.9 82.6 - 94.4 fL [facility] Mean Cell Hemoglobin 27.8 27.1 - 32.0 pg [facility] Mean Cell Hemoglobin Concentration 31.3(L) 31.7 - 35.0 gm/dL [facility] Platelet 296 145 - 357 x10(3)/mc L [facility] RDW Standard Deviation 44.5 37.0 - 46.0 fL [facility] RDW coefficient of variation 13.8 11.5 - 14.1 % [facility] Mean Platelet Volume 9.8 7.6 - 12.9 fL [facility] NRBC% auto 0.0 % [facility] NRBC Absolute 0.000 0.000 - 0.000 x10(3)/mc L [facility] Blood specimen (specimen) 09/04/2019 4:43 AM EDT 09/04/2019 5:23 AM EDT Narrative Resulting Agency Comment Spec In Lab Terrance Santana MD HEMATOLOGY ORDERABLE S [facility] [place] [address] * (ABNORMAL) Differential, Automated (09/03/2019 6:36 AM EDT) Neutrophil % 57.4 % [facility] Neutrophil Absolute 2.33 1.70 - 6.10 x10(3)/mc L [facility] Lymph % 20.0 % [facility] Lymphocytes Abs 0.8(L) 0.9 - 3.2 x10(3)/mc L [facility] Monocyte % 17.5 % [facility] Monocyte Abs 0.7 0.3 - 0.9 x10(3)/mc L [facility] Eos % 0.0 % [facility] Eosinophils Abs 0.0 0.0 - 0.4 x10(3)/mc L [facility] Basophil % 0.2 % [facility] Baso Absolute 0.0 0.0 - 0.1 x10(3)/mc L [facility] Immature Gran % 4.90 % [facility] Comment: Immature granulocytes(IG's)percentage and absolute count will include metamyelocytes, myelocytes, and promyelocytes. Blood smears from CBCs yielding IG's will be scanned manually for concordance. If this scan disagrees with the automated IG or if promyelocytes are noted, a manual differential will be performed. Immature Gran Absolute 0.20(H) 0.00 - 0.04 x10(3)/ L [facility] Blood specimen (specimen) 09/03/2019 6:36 AM EDT 09/03/2019 6:59 AM EDT Narrative Resulting Agency Comment Spec In Lab Terrance Santana MD HEMATOLOGY ORDERABLE S [facility] [place] [address] * (ABNORMAL) Hemogram (09/03/2019 6:36 AM EDT) White Blood Cell 4.1 4.0 - 9.5 x10(3)/[facility] Red Blood Cell 4.42 4.00 - 5.21 x10(6)/[facility] Hemoglobin 12.0 11.7 - 15.5 gm/dL [facility] Hematocrit 39.6 35.7 - 45.8 % [facility] Mean Cell Volume 89.6 82.6 - 94.4 fL [facility] Mean Cell Hemoglobin 27.1 27.1 - 32.0 pg [facility] Mean Cell Hemoglobin Concentration 30.3(L) 31.7 - 35.0 gm/dL [facility] Platelet 315 145 - 357 x10(3)/[facility] RDW Standard Deviation 44.9 37.0 - 46.0 [facility] RDW coefficient of variation 13.7 11.5 - 14.1 % [facility] Mean Platelet Volume 10.2 7.6 - 12.9 fL [facility] NRBC% auto 0.0 % [facility] NRBC Absolute 0.000 0.000 - 0.000 x10(3)/ L [facility] Blood specimen (specimen) 09/03/2019 6:36 AM EDT 09/03/2019 6:59 AM EDT Narrative Resulting Agency Comment Spec In Lab Terrance Santana MD HEMATOLOGY ORDERABLE S Performing Organization Address [facility] Co de Phone Number [facility] [place] [address] * (ABNORMAL) Hepatic Function Panel (09/03/2019 6:36 AM EDT) Pathologist [facility] Protein, Total 7.3 6.1 - 8.0 gm/dL [facility] Albumin 3.2 3.2 - 5.2 gm/dL [facility] Aspartate Aminotransferase 15 0 - 30 unit/L [facility] Alanine Aminotransferase 32(H) 0 - 30 unit/L [facility] Alkaline Phosphatase 105 35 - 105 unit/L [facility] Bilirubin, Total 0.4 0.2 - 1.3 mg/dL [facility] Bilirubin, Direct 0.1 0.0 - 0.3 mg/dL [facility] Blood specimen (specimen) 09/03/2019 6:36 AM EDT 09/03/2019 6:58 AM EDT Narrative Resulting Agency Comment Spec In Lab Alexis Caro MD CHEMISTRY ORDERABLES Performing Organization Address [facility] de Phone Number [facility] [place] [address] * (ABNORMAL) BMP w/fasting Glucose (09/03/2019 6:36 AM EDT) Glucose Fasting 102(H) 65 - 99 mg/dL [facility] Comment: ?Fasting* Glucose Interpretive Criteria [...] of Diabetes Mellitus, Position Statement from the [place] [employer]. ??Diabetes Care, Volume 33, Supplement 1, Mar 2009 Blood Urea Nitrogen 10 8 - 18 mg/dL [facility] Creatinine 0.54(L) 0.70 - 1.20 mg/dL [facility] Sodium 133(L) 135 - 145 mmol/L [facility] Potassium 3.8 3.5 - 5.0 mmol/L [facility] Comment: Please note: ??Patients with WBC >100,000 may have falsely elevated Potassium levels. ??For accurate Potassium quantification in these patients send serum separator tube (gold top) for subsequent determinations. ??Contact the Clinical Chemistry Laboratory if there are any questions. Chloride 97(L) 98 - 107 mmol/L [facility] Carbon Dioxide 26 22 - 31 mmol/L [facility] Anion Gap 10 5 - 15 mmol/L [facility] Calcium 9.2 8.5 - 10.5 mg/dL [facility] Est Glomerular Filtration Rate 98 >=60 mL/min/1. 73 m?? [facility] Comment: The eGFR was calculated using the CKD-EPI equation. As with all creatinine based estimates of kidney function, eGFR values calculated with the CKD-EPI equation are not accurate in patients with acute kidney failure, extremes of body mass or the acutely ill. [email or web address]nk[facility] eGFR 113 >=60 mL/min/1. 73 m?? [facility] Comment: The eGFR was calculated using the CKD-EPI equation. As with all creatinine based estimates of kidney function, eGFR values calculated with the CKD-EPI equation are not accurate in patients with acute kidney failure, extremes of body mass or the acutely ill. [email or web address]nk[facility] Blood specimen (specimen) 09/03/2019 6:36 AM EDT 09/03/2019 6:58 AM EDT Narrative Resulting Agency Comment Spec In Lab Alexis Caro MD CHEMISTRY ORDERABLES [facility] [place] [address] * CT Guided Aspiration Liver (09/02/2019 1:33 [...] in 4 weeks for fluoroscopic drain check. Transport Truck Driver(s): Resident/Fellow: Johan Hernandez M.D. Attending: Terrance Gunter [...] access tract was dilated and a 10 Colombian locking pigtail drainage catheter was placed. Post [...] vein thrombus.. Final CT showed a 10 Colombian drain positioned in the hepatic fluid collection. [...] vein thrombus.. Final CT showed a 10 Colombian drain positioned inthe hepatic fluid collection. 5 mL of purulent fluid was removed. IMPRESSION Impression: Successful CT-guided drain placement in a hepatic fluidcollection. Plan/disposition: 1) To Angio recovery room, may discharge to floor when meets criteria. 2) Forward flush every 12 hours with 3-5 mL of normal saline. Recordoutputs daily. 3) Patient to return in 4 weeks for fluoroscopic drain check. Transport Truck Driver(s): Resident/Fellow: Johan Hernandez M.D. Attending: Terrance Gunter [...] Electronically signed by: Terrance Gunter, [facility]([phone]), at 09/02/2019 4:02 PM Terrance Santana MD IMG CT ORDERABLES * (ABNORMAL) Anaerobic Culture (09/02/2019 1:00 PM EDT) Anaerobic Culture Moderate Clostridium species, not C perfringens Moderate Bacteroides fragilis Group Moderate Peptostreptococcus species (A) [facility] Organism Clostridium species, not C perfringens(A) [facility] Organism Bacteroides fragilis Group(A) [facility] Organism Peptostreptococcus species(A) [facility] Specimen from abdominal cavity (specimen) 09/02/2019 1:00 PM EDT 09/02/2019 1:33 PM EDT Comment:CT GUIDED LIVER ABSC ESS DRAIN Narrative Resulting Agency Comment Spec In Lab Terrance Santana MD MICROBIOLOGY - GENER AL ORDERABLES [facility] [place] [address] * (ABNORMAL) Body Fluid Culture, Aerobic (09/02/2019 1:00 PM EDT) Body Fluid Culture Few Actinomyces species(A) [facility] Gram Stain Many Neutrophils seen Many Gram Positive Cocci seen Few Gram Negative Rods seen Rare Gram Positive Rods seen (A) [facility] Organism Actinomyces species(A) [facility] Organism Gram Positive Cocci(A) [facility] Organism Gram Negative Rods(A) [facility] Organism Gram Positive Rods(A) [facility] Specimen from abdominal cavity (specimen) 09/02/2019 1:00 PM EDT 09/02/2019 1:33 PM EDT Comment:CT GUIDED LIVER ABSC ESS DRAIN Narrative Resulting Agency Comment Spec In Lab Terrance Santana MD MICROBIOLOGY - GENER AL ORDERABLES [facility] [place] [address] * COVID-19 PCR (09/02/2019 1:41 AM EDT) SARS-CoV-2 RNA (Rapid) Not Detected Not Detected [facility] Comment: This result should be [...] using the Simplexa COVID-19 Direct Assay by [place] DEPT. as authorized by the FDA issued Emergency [...] Department of Pathology and Laboratory Medicine at [facility], certified under the Clinical Laboratory Improvement Amendments [...] Information for Healthcare Professionals (https://www.cdc.gov/coronavirus/2019-ncov/hcp/index.html). SARS-CoV-2 Source PREVENTION SPECIALIST Swab MA [facility]ON[facility] Nasopharyngeal swab (specimen) 09/02/2019 1:41 AM EDT 09/02/2019 2:13 AM EDT Comment:Symptoms->Surveillan ce Narrative Resulting Agency Comment Spec In Lab Terrance Meade MD MICROBIOLOGY - GEN ERAL ORDERABLES Performing Organization Address [facility]/ZIP Co de Phone Number [facility] [place] [address] * (ABNORMAL) Urinalysis Microscopic Exam (09/01/2019 11:33 PM EDT) RBC, Urine 5(H) 0 - 4 /HPF [facility] WBC, Urine 1 0 - 5 /HPF [facility] Squamous Epithelial Cells Raw Data, Urine 1 <=4 /HPF [facility] Hyaline Casts, Urine 3(H) 0 - 2 /LPF [facility] Urine specimen obtained by clean catch procedure (specimen) 09/01/2019 11:33 PM EDT 09/01/2019 11:43 PM EDT Narrative Resulting Agency Comment Spec In Lab Ministerio Kline MD URINE ORDERABLES Performing Organization Address [facility]/ZIP Co de Phone Number [facility] [place] [address] * (ABNORMAL) Urinalysis with reflex Culture (09/01/2019 11:33 PM EDT) Glucose, Urine Dipstick Negative Negative mg/dL [facility] Protein, Urine Dipstick 30(A) Negative mg/dL [facility] Bilirubin, Urine Dipstick Negative Negative mg/dL [facility] Comment: Clinical correlation required for positive Urine Bilirubin results as false positive may occur with some drugs and drug related products. If a false positive is suspected a serum total bilirubin should be considered if clinically indicated. Urobilinogen, Urine Dipstick Normal Normal mg/dL [facility] pH, Urn (dipstick) 5.0 5.0 - 8.0 [facility] Blood, Urine Dipstick Trace(A) Negative mg/dL [facility] Ketone, Urine Dipstick Trace(A) Negative mg/dL [facility] Nitrite, Urine Dipstick Negative Negative [facility] Leukocytes, Urine Dipstick Negative Negative [facility] Appearance, Urine Dipstick Clear Clear [facility] Specific [place] Urine Automated >=1.030(A) 1.006 - 1.030 [facility] Color, Urine Dipstick Yellow Yellow [facility] Reflex to Culture No [facility] Urine specimen obtained by clean catch procedure (specimen) 09/01/2019 11:33 PM EDT 09/01/2019 11:43 PM EDT Narrative Resulting Agency Comment Spec In Lab Sebastian Chappell MD URINE ORDERABLES Performing Organization Address City/State/[facility] Co de Phone Number [facility] [place] [address] * (ABNORMAL) BLOOD GAS 2 VENOUS (09/01/2019 10:18 PM EDT) pH, Venous 7.45(H) 7.32 - 7.42 [facility] PCO2, Venous 42 41 - 51 mmHg [facility] PO2, Venous 51(H) 25 - 40 mmHg [facility] Bicarbonate, Venous 28.1 mmol/L [facility] Base Excess, Venous 4.0 mmol/L [facility] Hgb Blood Gas 13.3 11.7 - 15.5 gm/dL [facility] Oxyhemoglobin, Venous 85.5 % [facility] Carboxyhemoglob in, Venous 0.1 % [facility] Comment: Nonsmokers: 0.5-1.5% COHB Smokers: Variable, but usually less than 10% Toxic: 20-30% COHB Lethal: Greater than 60% COHB Methemoglobin, Venous 0.4 <=1.5 % [facility] Na Whole Blood 133(L) 135 - 145 mmol/L [facility] K Whole Blood 4.1 3.5 - 5.0 mmol/L [facility] Comment: Please note: Patients with WBC >100,000 may have falsely elevated Potassium levels. Contact the Clinical Chemistry Laboratory if there are any questions. ICa Whole Blood 1.17 1.15 - 1.33 mmol/L [facility] Comment: Note: ??Total bilirubin higher than 20 mg/dL may lead to falsely low ionized calcium. CL Whole Blood 97(L) 98 - 107 mmol/L [facility] Gluc Whole Bld 108 65 - 199 mg/dL [facility] Comment:Diabetes: >=200 mg/d L plus symptoms Lactate WB 1.4 0.5 - 2.2 mmol/L [facility] Blood Gas Source Venous [facility] Blood specimen (specimen) 09/01/2019 10:18 PM EDT 09/01/2019 10:18 PM EDT Amrik Zapata MD POINT OF CARE LIDIA T ORDERABLES [facility] [place] [address] * Scan, Peripheral Blood (09/01/2019 10:08 PM EDT) Plat estimate Normal [facility] RBC Morphology Normal [facility] Blood specimen (specimen) 09/01/2019 10:08 PM EDT 09/01/2019 10:18 PM EDT Narrative Resulting Agency Comment Spec In Lab Ministerio Kline MD HEMATOLOGY ORDERABLE S Performing Organization Address City/[facility]/ZIP Co de Phone Number [facility] [place] [address] * Gold Tube HOLD (09/01/2019 10:08 PM EDT) Gold Hold Sample in lab. [facility] Blood specimen (specimen) Venous Draw / Unknown 09/01/2019 10:08 PM EDT 09/01/2019 10:19 PM EDT Ministerio Kline MD CHEMISTRY ORDERABLES Performing Organization Address [facility] Co de Phone Number [facility] [place] [address] * (ABNORMAL) Differential, Automated (09/01/2019 10:08 PM EDT) [facility] Neutrophil % 59.8 % [facility] Neutrophil Absolute 3.26 1.70 - 6.10 x10(3)/mc L [facility] Lymph % 17.9 % [facility] Lymphocytes Abs 1.0 0.9 - 3.2 x10(3)/mc L [facility] Monocyte % 14.8 % [facility] Monocyte Abs 0.8 0.3 - 0.9 x10(3)/mc L [facility] Eos % 0.0 % [facility] Eosinophils Abs 0.0 0.0 - 0.4 x10(3)/mc L [facility] Basophil % 0.4 % [facility] Baso Absolute 0.0 0.0 - 0.1 x10(3)/mc L [facility] Immature Gran % 7.10 % [facility] Comment: Immature granulocytes(IG's)percentage and absolute count will include metamyelocytes, myelocytes, and promyelocytes. Blood smears from CBCs yielding IG's will be scanned manually for concordance. If this scan disagrees with the automated IG or if promyelocytes are noted, a manual differential will be performed. Immature Gran Absolute 0.39(H) 0.00 - 0.04 x10(3)/ L [facility] Blood specimen (specimen) 09/01/2019 10:08 PM EDT 09/01/2019 10:18 PM EDT Narrative Resulting Agency Comment Spec In Lab Ministerio Kline MD HEMATOLOGY ORDERABLE S [facility] [place] [address] * (ABNORMAL) Hemogram (09/01/2019 10:08 PM EDT) White Blood Cell 5.5 4.0 - 9.5 x10(3)/[facility]ATORY Red Blood Cell 4.02 4.00 - 5.21 x10(6)/ L [facility] Hemoglobin 11.2(L) 11.7 - 15.5 gm/dL [facility] Hematocrit 35.4(L) 35.7 - 45.8 % [facility] Mean Cell Volume 88.1 82.6 - 94.4 fL [facility] Mean Cell Hemoglobin 27.9 27.1 - 32.0 pg [facility] Mean Cell Hemoglobin Concentration 31.6(L) 31.7 - 35.0 gm/dL [facility] Platelet 308 145 - 357 x10(3)/[facility] LABORATORY RDW Standard Deviation 45.1 37.0 - 46.0 [facility] LABORATORY RDW coefficient of variation 13.9 11.5 - 14.1 % [facility] Mean Platelet Volume 9.8 7.6 - 12.9 fL [facility] NRBC% auto 0.0 % [facility] NRBC Absolute 0.000 0.000 - 0.000 x10(3)/ L [facility] Blood specimen (specimen) 09/01/2019 10:08 PM EDT 09/01/2019 10:18 PM EDT Narrative Resulting Agency Comment Spec In Lab Ministerio Kline MD HEMATOLOGY ORDERABLE S Performing Organization Address City/[facility] Co de Phone Number [facility] [place] [address] * APTT (09/01/2019 10:08 PM EDT) Partial Thromboplastin Time 31 25 - 37 sec [facility] Comment: The PTT is NOT appropriate for heparin monitoring. Use the Anti-Xa level for heparin monitoring (HEP UFH) or LMWH monitoring (HEP LMW). A PTT less than 37 seconds generally indicates adequate hemostasis. Blood specimen (specimen) 09/01/2019 10:08 PM EDT 09/01/2019 10:18 PM EDT Narrative Resulting Agency Comment Spec In Lab Sebastian Chappell MD HEMATOLOGY ORDERABLE S Performing Organization Address [facility] Co de Phone Number [facility] [place] [address] * Blood culture (09/01/2019 10:08 PM EDT) Blood Culture No growth at 5 days. [facility] Blood specimen (specimen) 09/01/2019 10:08 PM EDT 09/01/2019 10:29 PM EDT Comment:LFA Narrative Resulting Agency Comment Spec In Lab Sebastian Chappell MD MICROBIOLOGY - BLOOD ORDERABLES Performing Organization Address City/[facility]/ZIP Co de Phone Number [facility] [place] [address] * Blood culture (09/01/2019 10:08 PM EDT) Blood Culture No growth at 5 days. [facility] Blood specimen (specimen) 09/01/2019 10:08 PM EDT 09/01/2019 10:28 PM EDT Comment:LAC Narrative Resulting Agency Comment Spec In Lab Sebastian Chappell MD MICROBIOLOGY - BLOOD ORDERABLES Performing Organization Address [facility] Co de Phone Number [facility] [place] [address] * (ABNORMAL) Prothrombin Time (09/01/2019 10:08 PM EDT) Prothrombin Time 13.6(H) 9.4 - 12.5 sec [facility] International Normalization Ratio 1.2 [facility] Comment: An INR <2.0 indicates [...] MD HEMATOLOGY ORDERABLE S Performing Organization Address [facility] Co de Phone Number [facility] [place] [address] * Lipase (09/01/2019 10:08 PM EDT) Lipase 30 0 - 60 unit/L [facility] Blood specimen (specimen) 09/01/2019 10:08 PM EDT 09/01/2019 10:18 PM EDT Narrative Resulting Agency Comment Spec In Lab Sebastian Chappell MD CHEMISTRY ORDERABLES Performing Organization Address [facility] Co de Phone Number [facility] [place] [address] * (ABNORMAL) Hepatic Function Panel (09/01/2019 10:08 PM EDT) Protein, Total 7.3 6.1 - 8.0 gm/dL [facility] Albumin 3.5 3.2 - 5.2 gm/dL [facility] Aspartate Aminotransferase 25 0 - 30 unit/L [facility] Alanine Aminotransferase 44(H) 0 - 30 unit/L [facility] Alkaline Phosphatase 112(H) 35 - 105 unit/L [facility] Bilirubin, Total 0.3 0.2 - 1.3 mg/dL [facility] Bilirubin, Direct 0.1 0.0 - 0.3 mg/dL [facility] Blood specimen (specimen) 09/01/2019 10:08 PM EDT 09/01/2019 10:18 PM EDT Narrative Resulting Agency Comment Spec In Lab Sebastian Chappell MD CHEMISTRY ORDERABLES [facility] [place] [address] * (ABNORMAL) Basic Metabolic Panel (non-fasting) (09/01/2019 10:08 PM EDT) Glucose 117 65 - 199 mg/dL [facility] Comment:Diabetes: >=200 mg/d L plus symptoms Blood Urea Nitrogen 10 8 - 18 mg/dL [facility] Creatinine 0.67(L) 0.70 - 1.20 mg/dL [facility] Sodium 134(L) 135 - 145 mmol/L [facility] Potassium 4.0 3.5 - 5.0 mmol/L [facility] Comment: Please note: ??Patients with WBC >100,000 may have falsely elevated Potassium levels. ??For accurate Potassium quantification in these patients send serum separator tube (gold top) for subsequent determinations. ??Contact the Clinical Chemistry Laboratory if there are any questions. Chloride 94(L) 98 - 107 mmol/L [facility] Carbon Dioxide 27 22 - 31 mmol/L [facility] Anion Gap 13 5 - 15 mmol/L [facility] Calcium 8.8 8.5 - 10.5 mg/dL [facility] Est Glomerular Filtration Rate 91 >=60 mL/min/1. 73 m?? [facility] Comment: The eGFR was calculated using the CKD-EPI equation. As with all creatinine based estimates of kidney function, eGFR values calculated with the CKD-EPI equation are not accurate in patients with acute kidney failure, extremes of body mass or the acutely ill. [email or web address] OKLAHOMA CITYnkf eGFR 105 >=60 mL/min/1. 73 m?? [facility] Comment: The eGFR was calculated using the CKD-EPI equation. As with all creatinine based estimates of kidney function, eGFR values calculated with the CKD-EPI equation are not accurate in patients with acute kidney failure, extremes of body mass or the acutely ill. [email or web address] Blood specimen (specimen) 09/01/2019 10:08 PM EDT 09/01/2019 10:18 PM EDT Narrative Resulting Agency Comment Spec In Lab Sebastian Chappell MD CHEMISTRY ORDERABLES Performing Organization Address [facility]/ZIP Co de Phone Number [facility] [place] [address] * Film Library- Storage Only CT Abdomen & Pelvis (09/01/2019 7:57 PM EDT) Narrative [facility] - 09/01/2019 7:57 PM EDT This exam is auto-finalizing. It's purpose is for storage only. Yola Oliveros MD IM FILM LIBRARY ORD ERABLES Performing Organization Address City/[facility]/ZIP Co de Phone Number [place], [place] documented in this encounter Visit Diagnoses [...] Intravenous, EVERY 24 HOURS, First dose on 09/06/19 at 1430, Until Discontinued, Administer over 30 [...] Terrance Enciso RN - Reason: Patient/family refused) 204 (Not Given - Provider: Kyrie Camilo RN [...] Rivera RN)1647 (New Bag - Provider: Germaine Rivera, DAYANA)2047 (Stopped - Provider: Terrance Enciso RN) 0107 [...] Germaine Rivera RN)2046 (Given - Provider: Kyrie Camilo, DAYANA) 0900 (Given - Provider: Germaine Rivera, DAYANA) sodium chloride 0.9 % (flush) flush 5 mL 5 mL, Intravenous, 2 TIMES DAILY, First dose on Sat09/02/19 at 0900, Until Discontinued, Routine 09 (Given - Provider: Maria Antonia Hitchcock RN)2118 (Given - Provider: Terrance nEciso, DAYANA) 0855 (Given - Provider: Germaine Rivera, DAYANA)2046 (Given - Provider: Kyrie Camilo, DAYANA) 0900 (Given - Provider: Germaine Rivera, DAYANA) PRN Medication Order 09/05/2019 09/06/2019 09/07/2019 acetaminophen [...] PRN, Starting on Sat09/02/19 at 0240, Until 09/07/19 at 1923, Nausea, Vomiting, If multiple antiemetics [...] 1814, Until 09/07/19 at 1923, Constipation, Routine sodium chloride 0.9 % (flush) flush 5-20 mL 5-20 mL, Intravenous, EVERY 1 MIN PRN, Starting on Sat09/02/19 at 0240, Until 09/07/19 at 1923, flush, Flush pertains to all [...] first. documented in this encounter Care Teams Injection Molding Engineer Relationship Specialty Start Date End Date Julia Chatterjee MD Sushant [address] [facility] [address] [place] [address] PCP - General 01/31/10 documented as of this encounter
--- OUTSIDE RECORDS SUMMARY | 2024-04-17 01:26 | XMS_ITS | Encounter Summary ---
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 Name Role Phone Julia Chatterjee MD Primary Care Provider [phone] Encounter Details Date Type Department Care Team (Late st Contact Info) Description 08/11/2019 Ancillary Procedure Radiology Library at [facility] [place] [address] Dakotah Juárez MD [facility] [place] [address] Social History Tobacco Use Types Packs/Day Years [...] Scheduled View Only Radiation Oncology at [address] [phone] 04/20/2024 12:45 PM EST Scheduled View Only Radiation Oncology at [address] [phone] 04/21/2024 10:45 AM EST Scheduled View Only Radiation Oncology at [address] [phone] 04/21/2024 11:00 AM EST Office Visit Radiation Oncology at [address] [address] Radha Casiano MD [facility] [place] [address] 04/22/2024 3:00 PM EST Scheduled View Only Radiation Oncology at [address] [phone] 04/23/2024 3:00 PM EST Scheduled View Only Radiation Oncology at [address] [phone] 04/24/2024 3:00 PM EST Scheduled View Only Radiation Oncology at [address] [phone] 04/27/2024 11:15 AM EST Scheduled View Only Radiation Oncology at [address] [phone] 04/28/2024 11:30 AM EST Scheduled View Only Radiation Oncology at [address] [phone] 04/28/2024 12:00 PM EST Office Visit Radiation Oncology at [address] [address] Radha Casiano MD [facility] [place] [address] 04/28/2024 2:00 PM EST Office Visit Cardiology at [address] [place] [address] Letty Montejo, JAYLEN [facility] [place] [address] 04/29/2024 11:15 AM EST Scheduled View Only Radiation Oncology at [address] [phone] 04/30/2024 11:30 AM EST Scheduled View Only Radiation Oncology at [address] [phone] 05/01/2024 11:15 AM EST Scheduled View Only Radiation Oncology at [address] [phone] 05/04/2024 10:45 AM EST Scheduled View Only Radiation Oncology at [address] [phone] 05/05/2024 1:00 PM EST Scheduled View Only Radiation Oncology at [address] [phone] 05/05/2024 1:15 PM EST Office Visit Radiation Oncology at [address] [address] Radha Casiano MD [facility] [place] [address] 05/06/2024 1:00 PM EST Scheduled View Only Radiation Oncology at [address] [address] 05/07/2024 1:00 PM EST Scheduled View Only Radiation Oncology at [address] [phone] 05/08/2024 1:00 PM EST Scheduled View Only Radiation Oncology at [address] [phone] 05/11/2024 11:30 AM EST Scheduled View Only Radiation Oncology at [address] [phone] 01/13/2025 1:00 PM EST Office Visit Hematology/Oncology at [address] [address] Lee Ann Jay MD [facility] [place] [address] Leti Anderson, JAYLEN [facility] [place] [address] documented as of this encounter Procedures Procedure [...] Juárez MD IMG FILM LIBRARY ORD ERABLES [place], [place] documented in this encounter Visit Diagnoses Not on filedocumented in this encounter Care Teams Towboat Captain Relationship Specialty Start Date End Date Julia Chatterjee MD Sushant [address] [place] [address] PCP - General 01/31/10 documented as of this encounter
--- OUTSIDE RECORDS SUMMARY | 2024-04-17 01:26 | XMS_ITS | Encounter Summary ---
Author Organization [facility] Address [facility] [place] [address] Care Team Providers Care Manager Card Name Role Phone Julia Chatterjee MD Primary Care Provider [phone] Reason for Visit * Reason Comments Fever hepatic abscess * Auth/Cert Specialty Diagnoses / Procedures Referred By Contac t Referred To Contact Diagnoses Hepatic abscess Referral ID Status Reason Start Date Expiration Date Visits Re quested Visits Authorized [id number] 1 1 Encounter Details Date Type Department Care Team (Late st Contact Info) Description 09/02/2019 [place] [address] Mary Castro MD [facility] [place] [address] FLEXIBLE SIGMOIDOSCOPY (WRVU 0.84) Social History Tobacco [...] Leti Parry Patient Age: 68 y.o. Language: Surinamese Race: White Ethnicity: Not nor Admit date: 09/01/2019 Discharge date and time: 09/07/2019 at 2PM Attending Physician: Terrance Santana MD Discharge Physician: Terrance Santana MD Follow-up Recommendations for Providers: Patient has hepatic abscess drain with suction-bulb in place. She is scheduled for drain-check F/U with [facility] radiology on October 02. Please monitor for [...] please contact your inpatient physician through the [facility] Recep . Issues afterhours and on weekends will [...] in 4 weeks for fluoroscopic drain check. Recep(s): Resident/Fellow: Johan Hernandez M.D. Attending: Terrance Gunter [...] - You have a follow-up appointment with [facility] radiology for a drain check on October 02. Please make sure to do flushes as outlined on discharge instructions and keep the area around the suction bulb clean. If you develop fevers, discharge around the drain site, or worsening pain please see your PCP. - You have a follow-up appointment on October 20 with your [facility] hematology team. - Please follow-up with [facility] GI service scheduling to schedule your next [...] is during regular office hours, please call [phone]. If it is after regular office hours, or on weekends or holidays, please call [phone] and ask to speak to the Tank Storage Supervisor environmental services supervisor for Interventional Radiology. XX You have received [...] Dept Phone 10/21/2019 10:00 AM Radha Cooper, SENIOR PRICING ANALYST; Lee Ann Jay MD Hematology/Oncology at [facility] Arrive at: [facility] door at end of hallway [phone] Future Orders Complete By Expires IR Drain Check/Change/Remove [[id number] Custom] 10/03/2019 (Approximate) 04/03/2020 Process Instructions: Scheduling Instructions: Questions: Where will study be performed?: [facility] Radiology Reason for exam and clinical history: [...] Recommendation for Post Discharge IV Antibiotic Management [ZGN820 CPT(R)] As directed Process Instructions: If no progress note charted, please enter Clinical details in comments. Scheduling Instructions: Comments: Please Fax all results to: OPAT Program Infectious Disease Section [facility], [place] [address] FAX: After hours, please contact the Infectious Disease Physician environmental services supervisor at . If this order was signed greater than 72 hours prior to [facility] discharge, please call to confirm the accuracy [...] Briana King DO Referral for Outpatient Antibiotics [NMT5501 CPT(R)] As directed Process Instructions: Scheduling Instructions: Comments: Flush per OPAT Protocol Questions: Vendor / contact information: [place] Patient location post discharge: Home Service requested: IV ABX Therapy Start date: Responsible MD post discharge contact info: PCP Referral to Home Health - at DISCHARGE [ILJ8172 CPT(R)] As directed Process Instructions: Scheduling Instructions: Comments: DOCUMENTATION FOR VNA SERVICES (INCLUDING THOSE PATIENTS WITH MEDICARE COVERAGE REQUIRING HOME VNA SERVICES AND/OR HOSPICE SERVICES) PATIENT'S LOCATION: Leti Parry [address] [place] [id number] (home) Cell: Telephone Information: Batter Out's Name: Patient In discussion with the attending physician, it is certified that this patient is under their care and that they, or a Nurse Practitioner,Clinical Nurse specialist or Physician Senior Project Accountant who is working directly with them, had [...] assess and continue rehab for managing ADL's. STORM SASH MAKER: Assist with ADLS HOME HEALTH CARE AGENCY: [facility] PHONE: [phone] FAX: [phone] Start of care: Day of Discharge FOR [...] PCP: MD Sushant Garg DR [address] / [facility] [address] All A agencies which cover the area of patient's residence have been reviewed, either verbally nadine writing, and patient/family have chosen the home health care agency noted Questions: Agency name and contact information: [facility] Patient location post discharge: Home What services are requested: Registered Nurse Start date: Responsible MD post discharge contact info: PCP Discharge References/Attachments Surgical Drain Care (Surinamese) PICC (Peripherally Inserted Central Catheter) (Surinamese) * Rizwan Lama - 09/07/2019 11:50 AM EDT Images from the original note were not included. Discharge Summary Patient Name: Leti Parry Patient Age: 68 y.o. Language: Surinamese Race: White Ethnicity: Not nor Admit date: 09/01/2019 Discharge date and time: 09/07/2019 at 2PM Attending Physician: Terrance Santana MD Discharge Physician: Terrance Santana MD Follow-up Recommendations for Providers: Patient has hepatic abscess drain with suction-bulb in place. She is scheduled for drain-check F/U with [facility] radiology on October 02. Please monitor for [...] please contact your inpatient physician through the [facility] Recep . Issues afterhours and on weekends will [...] in 4 weeks for fluoroscopic drain check. Recep(s): Resident/Fellow: Johan Hernandez M.D. Attending: Terrance Gunter [...] is during regular office hours, please call [phone]. If it is after regular office hours, or on weekends or holidays, please call [phone] and ask to speak to the Tank Storage Supervisor environmental services supervisor for Interventional Radiology. XX You have received [...] APRN; Lee Ann Jay MD Hematology/Oncology at [facility] Arrive at: [facility] door at end of hallway [phone] Future Orders Complete By Expires IR Drain Check/Change/Remove [[id number] Custom] 10/03/2019 (Approximate) 04/03/2020 Process Instructions: Scheduling Instructions: Questions: Where will study be performed?: [facility] Radiology Reason for exam and clinical history: [...] Recommendation for Post Discharge IV Antibiotic Management [[id number] CPT(R)] As directed Process Instructions: If no progress note charted, please enter Clinical details in comments. Scheduling Instructions: Comments: Please Fax all results to: OPAT Program Infectious Disease Section [facility], [place] [address] FAX: After hours, please contact the Infectious Disease Physician environmental services supervisor at . If this order was signed greater than 72 hours prior to [facility] discharge, please call to confirm the accuracy [...] King DO Discharge References/Attachments Surgical Drain Care (Surinamese) PICC (Peripherally Inserted Central Catheter) (Surinamese) Associated attestation - Terrance Santana MD - [...] is during regular office hours, please call [phone]. If it is after regular office hours, or on weekends or holidays, please call [phone] and ask to speak to the Tank Storage Supervisor environmental services supervisor for Interventional Radiology. XX You have received [...] - You have a follow-up appointment with [facility] radiology for a drain check on October 02. Please make sure to do flushes as outlined on discharge instructions and keep the area around the suction bulb clean. If you develop fevers, discharge around the drain site, or worsening pain please see your PCP. - You have a follow-up appointment on October 20 with your [facility] hematology team. - Please follow-up with [facility] GI service scheduling to schedule your next colonoscopy. - ID service scheduling will call you to set up a follow-up appointment. Please reach out if you are not contacted over the next two weeks. * Attachments The following attachments cannot be sent through Care Everywhere. * Surgical Drain Care (Surinamese) * PICC (Peripherally Inserted Central Catheter) (Surinamese) documented in this encounter Medications at Time [...] up Note: SAMUEL Confirmed with Ye From [facility] that patient will be seen 09/08/2019. Hospital teaching was completed with [employer] stock analyst of IV supplies will occur to meet patient's need for SOC on Saturday09/08/2019 Infusion Resource Center [phone] * Liyah Rodriguez RN - 09/07/2019 11:06 [...] ready to go. RNCM made Alejandra at [facility] aware. This plan was formulated with input from patient, family and team. All are in agreement with plan. * Liyah Rodriguez RN - 09/07/2019 9:08 AM EDT Office of Care Management/Editorial Assistant(CM) Home IV Antibiotic Therapy Referral Note. Report [...] Health Agency: Patient requested referral to [facility] PHONE: [phone] FAX: [phone] Referrals sent via [employer]. Home Infusion Vendor: Patient requested referral to: [place], [place] or Referrals sent via [employer]. Diabetic Status: Patient is not a diabetic [...] been on any therapy who presented to [facility] at the beginning of August with [...] colitis on steroid taper, recent admission to [facility] for colitis c/b E coli bacteremia [...] colitis on steroid taper, recent admission to [facility] for colitis c/b E coli bacteremia [...] minimumof two midnights or is on the [facility] inpatient only procedure list (status C) due to: Ongoing need forIV antibiotics for hepatic abscess Terrance Santana MD Attending, Hospital Medicine Service Pager #[phone] 09/06/2019 * Terrance Enciso RN - 09/05/2019 [...] colitis on steroid taper, recent admission to [facility] for colitis c/b E coli bacteremia [...] in 4 weeks for fluoroscopic drain check. Recep(s): Resident/Fellow: Johan Hernandez M.D. Attending: Terrance Gunter [...] colitis on steroid taper, recent admission to [facility] for colitis c/b E coli bacteremia [...] minimumof two midnights or is on the [facility] inpatient only procedure list (status C) due to: Ongoing need forIV antibiotics for hepatic abscess Terrance Santana MD Attending, Hospital Medicine Service Pager #[phone] 09/05/2019 * Alexis Caro MD - 09/04/2019 [...] Intake/Output Summary (Last 24 hours) at 09/04/2019 181 Last data filed at 09/04/2019 0638 Gross [...] colitis on steroid taper, recent admission to [facility] for colitis c/b E coli bacteremia [...] with PO abx Team Pager( Coverage 01/10): #[phone] PCP: Julia Chatterjee MD [phone] Attestation: IPI Certification I certify that I am a D-H credentialed attending provider with admitting privileges and that the patient meets or has met medical necessity to require an inpatient IPI level of care meeting a minimumof two midnights or is on the [facility] inpatient only procedure list (status C) [...] 4:43 PM EDT OFFICE OF CARE MANAGEMENT Editorial Assistant Follow-up Note Discussed plan of care with Primary team and Nursing to assess continuing care and discharge needs. LOS: 2d Primary Insurance: MEDICARE Secondary Insurance: [employer] [place] Pt continues to require hospitalization for hepatic abscess Ongoing Issues: ID Following - awaiting recommendation IVABX 09/03 PICC placement held -possible transition to oral ABX Awaiting cultures/sensitivities Functional Status Prior to Admission: Independent Discharge plan: home when medically ready Transportation: Editorial Assistant to follow with team and family to assist with discharge needs when patient ready for discharge. Liyah Rodriguez CUSTOM MILLER, Editorial Assistant Pgr. [phone] * Johan Hernandez MD - [...] contact with any questions Johan Hernandez MD Tank Storage Supervisor * Jeimy Nicholas RN - 09/03/2019 11:30 [...] hrs [ X ] Daily * Alexis aCro MD - 09/03/2019 5:04 PM EDT Hospital [...] colitis on steroid taper, recent admission to [facility] for colitis c/b E coli bacteremia [...] Anticipated Disposition: 09/03/2019 Team Pager( Coverage 01/10): #[phone] PCP: Julia Chatterjee MD [phone] Attestation: IPI Certification I certify that I [...] washospitalized in the beginning of August at [facility] with worsening diarrhea/painful defecation/fevers, found to [...] access tract was dilated and a 10 Belgian locking pigtail drainage catheter was placed. Post [...] washospitalized in the beginning of August at [facility] with worsening diarrhea/painful defecation/fevers to 102.5 [...] Dr. Castro. Hesham Dobson MD Gastroenterology Fellow #[phone] I have seen and evaluated the patient [...] colitis on steroid taper, recent admission to [facility] for colitis c/b E coli bacteremia [...] Anticipated Disposition: 09/03/2019 Team Pager( Coverage 01/10): #[phone] PCP: Julia Chatterjee MD [phone] Attestation: IPI Certification I certify that I [...] of : 1950 AGE: 68 y.o. Address: [address] [address] (home) Mobile: Telephone Information: Referring Provider: Self [...] performed by Lee Ann Jay MD at [facility] OSC ??? PRO BONE MARROW BX, NEEDLE/TROCAR Right 01/08/2017 ([facility]) BONE MARROW,BIOPSY (WRVU 1.37) performed by Lee Ann Jay MD at [facility] OSC ??? PRO COLONOSCOPY, BIOPSY 07/05/2011 COLONOSCOPY FLEXIBLE, WITH BX performed by MARY CASTRO at [facility] ENDOSCOPY ??? PRO COLONOSCOPY, REMV LESN, SNARE 07/05/2011 COLONOSCOPY, POLYPECTOMY, REMOVAL LESION BY SNARE performed by MARY CASTRO at [facility] ENDOSCOPY Date/Procedure Meds given/comments 09/02/19 CT [...] performed by Lee Ann Jay MD at [facility] OSC ??? PRO BONE MARROW BX, NEEDLE/TROCAR Right 01/08/2017 ([facility]) BONE MARROW,BIOPSY (WRVU 1.37) performed by Lee Ann Jay MD at [facility] OSC ??? PRO COLONOSCOPY, BIOPSY 07/05/2011 COLONOSCOPY FLEXIBLE, WITH BX performed by MARY CASTRO at [facility] ENDOSCOPY ??? PRO COLONOSCOPY, [place]AN [place], SNARE 07/05/2011 COLONOSCOPY, POLYPECTOMY, REMOVAL LESION BY SNARE performed by MARY CASTRO at [facility] ENDOSCOPY Medications: No current facility-administered medications for this visit. No current outpatient medications on file. Facility-Administered Medications Ordered in Other Visits: ??? piperacillin-tazobactam (ZOSYN) 3.375 g vial attach to sodium chloride 0.9% 50 mL Mini-Bag Plus, 3.375 g, Intravenous, Q8H, Terrance Santana MD, Stopped at 09/02/19 0455 ??? lactated ringers infusion, 75 mL/hr, Intravenous, Continuous, eTrrance Santana MD, Last Rate: 75 mL/hr at [...] Santana MD - 09/01/2019 11:30 PM EDT [facility] Medicine Seriv Inpatient Admission Note Problem List: There are no hospital problems to display for this patient. Active Non-Hospital Problems Diagnosis ??? Ulcerative colitis ??? Leukopenia ID: 68 y.o. 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 Review of records. Discharge summary from [facility]. Patient admitted 08/14 to 08/16 for [...] performed by Lee Ann Jay MD at [facility] OSC ??? PRO BONE MARROW BX, NEEDLE/TROCAR Right 01/08/2017 ([facility]) BONE MARROW,BIOPSY (WRVU 1.37) performed by Lee Ann Jay MD at [facility] OSC ??? PRO COLONOSCOPY, BIOPSY 07/05/2011 COLONOSCOPY FLEXIBLE, WITH BX performed by MARY CASTRO at [facility] ENDOSCOPY ??? PRO COLONOSCOPY, REMV LESN, SNARE 07/05/2011 COLONOSCOPY, POLYPECTOMY, REMOVAL LESION BY SNARE performed by MARY CASTRO at [facility] ENDOSCOPY Prior To Admission Medications: (Not in [...] file Gets together: Not on file Attends anabaptism service: Not on file Active member of [...] colitis on steroid taper, recent admission to [facility] for colitis c/b E coli bacteremia [...] Santana MD Attending, Hospital Medicine Service Pager #[phone] until 0800 09/0109/01/2019 IPI Certification I certify that I am a D-H credentialed attending provider with admitting privileges and that the patient meets or has met medical necessity to require an inpatient IPI level of care meeting a minimumof two midnights or is on the [facility] inpatient only procedure list (status C) [...] to the planned procedure. Hand Hygiene: The ceramics artist did perform hand hygiene prior to line insertion. Catheter type: PICC Lot number: [id number] Procedure Technique: Skin was prepped with chlorhexidine. [...] told by her physician to present to [facility] to be admitted to the GI service. [...] on phone: None Gets together: None Attends anabaptism service: None Active member of club or [...] notes in chart). Pt driving down from [facility]. 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 Now has hepatic abscess. In [facility] with ecoli bacteremia last week. finished [...] EDT Problem: Health Knowledge, Opportunity to Enhance (Adult,NICU,[place],Obstetrics,Pediatric) Goal: Knowledgeable about Health Subject/Topic Patient will demonstrate the desired outcomes by discharge/transition of care. Outcome: Outcome (s) achieved Date Met: 09/07/19 09/07/19 0955 Health Knowledge, Opportunity to Enhance (Adult,NICU,[place],Obstetrics,Pediatric) Knowledgeable about Health Subject/Topic achieves outcome Peripherally Inserted Central Catheter (PICC) Teaching Sheet Peripherally inserted central catheters (mlbj-pf-rklv) (PICC) are used when you need IV [...] midline catheter? PICC lines are used for director of online merchandising treatments. PICC lines may be used for [...] can be set up via the nurse Editorial Assistant to help you. What are possible complications [...] Vascular Access Device Selection, Insertion, and Management, [employer] Access Systems 12/13. A Review of the Efficacy, Safety, Use, and Administration of [employer], [employer] 2005 * Plan of Care - [...] Surveillance [continuous indirect monitoring]: [facility] Patient-specific fall prevention interventions for sensory [...] Review Outcome: Ongoing (Interventions Implemented as Appropriate) 09/04/196 Plan of Care Review Progress progress towards [...] (on steroid taper). She was admitted to [facility] earlier this month for colitis c/b [...] Fluid Culture, Aerobic & Anaerobic Abdominal Fluid [[id number]] Collected: 09/02/19 1300 Lab Status: Preliminary result Specimen: Abdominal Fluid Updated: 09/05/19 141 Body Fluid Culture, Aerobic [[id number]] (Abnormal) Collected: 09/02/19 1300 Lab Status: Preliminary result Specimen: Abdominal Fluid Updated: 09/05/19 141 Body Fluid Culture Few Actinomyces species Gram Stain -- Many Neutrophils seen Many Gram Positive Cocci seen Few Gram Negative Rods seen Rare Gram Positive Rods seen Anaerobic Culture [[id number]] (Abnormal) Collected: 09/02/19 1300 Lab Status: Preliminary result Specimen: Abdominal Fluid Updated: 09/05/19 1251 Anaerobic Culture -- Moderate Clostridium species, not C perfringens Moderate Bacteroides fragilis Group Moderate Peptostreptococcus species COVID-19 PCR [[id number]] Collected: 09/02/19 0141 Lab Status: Final result [...] using the Simplexa COVID-19 Direct Assay by [employer] as authorized by the FDA issued Emergency [...] Department of Pathology and Laboratory Medicine at [facility], certified under the Clinical Laboratory Improvement Amendments [...] Information for Healthcare Professionals (https://www.cdc.gov/coronavirus/2019-ncov/hcp/index.html). SARS-CoV-2 Source WALLPAPER CONSULTANT Swab Blood culture [[id number]] Collected: 09/01/192207 Lab Status: Preliminary result Specimen: Blood Updated: 09/04/192300 Blood Culture No growth at 3 days. Blood culture [[id number]] Collected: 09/01/192207 Lab Status: Preliminary result Specimen: [...] day [facility] Medicine Team pager #[phone] Personal pager #[phone] Associated attestation - Terrance Santana MD - 09/06/2019 1:06 PM EDT I agree with the above note written by BOB Cao. Please see my additional, separate notefor any changes or amendments. Terrance Santana MD * Plan of Care - Mavis Ahuja RN - 09/04/2019 10:45 PM EDT Problem: Patient Care Overview Goal: Plan of Care Review Outcome: Ongoing (Interventions Implemented as Appropriate) 09/04/19 4747 Plan of Care Review Progress progress towards [...] hepatic abscess. Notably, patient was admitted to [facility] earlier this month in the setting [...] LIVER 09/02/2019 CT Guided Aspiration Liver 09/02/2019 [facility] RAD CAT SCAN ??? PRO BONE MARROW ASPIRATION W/BX THROUGH SAME INCISION/SITE Right 01/08/2017 ([facility] BONE MARROW ASP PERFORMED W/BX THRU BX INCISION (WRVU 0.16) performed by Lee Ann Jay MD at [facility] OSC ??? PRO BONE MARROW BX, NEEDLE/TROCAR Right 01/08/2017 ([facility]) BONE MARROW,BIOPSY (WRVU 1.37) performed by Lee Ann Jay MD at [facility] OSC ??? PRO COLONOSCOPY, BIOPSY 07/05/2011 COLONOSCOPY FLEXIBLE, WITH BX performed by MARY CASTRO at [facility] ENDOSCOPY ??? PRO COLONOSCOPY, REMV LESN, SNARE 07/05/2011 COLONOSCOPY, POLYPECTOMY, REMOVAL LESION BY SNARE performed by MARY CASTRO at [facility] ENDOSCOPY ??? PRO SIGMOIDOSCOPY, DIAGNOSTIC N/A 09/02/2019 FLEXIBLE SIGMOIDOSCOPY performed by Mary Castro MD at [facility] ENDOSCOPY Medications: ??? oxyCODONE (Roxicodone) tablet 5 [...] Family History: Noncontributory Social History: Lives in [facility] with her 6 drinks per week Nonsmoker No illicits No pets Travel - to [place] in Apr, to [place] in May No camping, no suspicious food [...] Component Value Date/Time SPGRAVITYUA >=1.030 (A) 09/01/2019 233 PHUADIP 5.0 09/01/2019 2333 PROTEINUADIP 30 (A) 09/01/2019 2333 GLUCOSEU Negative 09/01/20193 KETONESUA Trace (A) 09/01/2019 2333 UROBILIUADIP Normal 09/01/20192332 BLOODUADIP Trace (A) 09/01/2019 2333 NITRATEUA Negative 09/01/20193 LEUKOESTERUA Negative 09/01/20192332 WBCUA 1 09/01/20192332 BILIRUBINUA Negative 09/01/20192332 Micro: Microbiology Results (Last 30 days) Procedure Component Value Units Date/Time Body Fluid Culture, Aerobic & Anaerobic Abdominal Fluid [[id number]] Collected: 09/02/19 1300 Lab Status: Preliminary result Specimen: Abdominal Fluid Updated: 09/03/19 1409 Body Fluid Culture, Aerobic [[id number]] (Abnormal) Collected: 09/02/19 1300 Lab Status: Preliminary result Specimen: Abdominal Fluid Updated: 09/03/19 0807 Body Fluid Culture No growth to date. Gram Stain -- Many Neutrophils seen Many Gram Positive Cocci seen Few Gram Negative Rods seen Rare Gram Positive Rods seen Anaerobic Culture [[id number]] Collected: 09/02/19 1300 Lab Status: Preliminary result Specimen: Abdominal Fluid Updated: 09/03/19 1409 Anaerobic Culture No anaerobic organisms isolated to date COVID-19 PCR [[id number]] Collected: 09/02/19 0141 Lab Status: Final result [...] using the Simplexa COVID-19 Direct Assay by [employer] as authorized by the FDA issued Emergency [...] Department of Pathology and Laboratory Medicine at [facility], certified under the Clinical Laboratory Improvement Amendments [...] Information for Healthcare Professionals (https://www.cdc.gov/coronavirus/2019-ncov/hcp/index.html). SARS-CoV-2 Source WALLPAPER CONSULTANT Swab Blood culture [[id number]] Collected: 09/01/192207 Lab Status: Preliminary result Specimen: Blood Updated: 09/03/192300 Blood Culture No growth at 2 days. Blood culture [[id number]] Collected: 09/01/192207 Lab Status: Preliminary result Specimen: [...] therapy for her abscess. During admission to [facility], there was CT evidence of a [...] initial CT imaging. Her blood cultures at [facility] had grown E. Coli and strep [...] from blood cultures during previous admission to [facility] - hold PICC placement, as it [...] been on any therapy and presented to [facility] at the beginning of August with [...] Ongoing (Interventions Implemented as Appropriate) 09/03/19 0909/04/19 0356 Safety Interventions Isolation Precautions -- standard [...] (on steroid taper). She was admitted to [facility] earlier this month for colitis c/b [...] Fluid Culture, Aerobic & Anaerobic Abdominal Fluid [[id number]] Collected: 09/02/19 1300 Lab Status: Preliminary result Specimen: Abdominal Fluid Updated: 09/03/19 1409 Body Fluid Culture, Aerobic [[id number]] (Abnormal) Collected: 09/02/19 1300 Lab Status: Preliminary result Specimen: Abdominal Fluid Updated: 09/03/19 0807 Body Fluid Culture No growth to date. Gram Stain -- Many Neutrophils seen Many Gram Positive Cocci seen Few Gram Negative Rods seen Rare Gram Positive Rods seen Anaerobic Culture [[id number]] Collected: 09/02/19 1300 Lab Status: Preliminary result Specimen: Abdominal Fluid Updated: 09/03/19 1409 Anaerobic Culture No anaerobic organisms isolated to date COVID-19 PCR [[id number]] Collected: 09/02/19 0141 Lab Status: Final result [...] using the Simplexa COVID-19 Direct Assay by [employer] as authorized by the FDA issued Emergency [...] Department of Pathology and Laboratory Medicine at [facility], certified under the Clinical Laboratory Improvement Amendments [...] Information for Healthcare Professionals (https://www.cdc.gov/coronavirus/2019-ncov/hcp/index.html). SARS-CoV-2 Source WALLPAPER CONSULTANT Swab Blood culture [[id number]] Collected: 09/01/192207 Lab Status: Preliminary result Specimen: Blood Updated: 09/03/192300 Blood Culture No growth at 2 days. Blood culture [[id number]] Collected: 09/01/192207 Lab Status: Preliminary result Specimen: [...] Rizwan Lama, MS4 Hospital Medicine Team pager #[phone] Personal pager #[phone] * Plan of Care - Marylu Shah [...] (on steroid taper). She was admitted to [facility] earlier this month for colitis c/b [...] Fluid Culture, Aerobic & Anaerobic Abdominal Fluid [[id number]] Collected: 09/02/19 1300 Lab Status: In process Specimen: Abdominal Fluid Updated: 09/03/19 0807 Body Fluid Culture, Aerobic [[id number]] (Abnormal) Collected: 09/02/19 1300 Lab Status: Preliminary result Specimen: Abdominal Fluid Updated: 09/03/19 0807 Body Fluid Culture No growth to date. Gram Stain -- Many Neutrophils seen Many Gram Positive Cocci seen Few Gram Negative Rods seen Rare Gram Positive Rods seen COVID-19 PCR [[id number]] Collected: 09/02/19 0141 Lab Status: Final result [...] using the Simplexa COVID-19 Direct Assay by [employer] as authorized by the FDA issued Emergency [...] Department of Pathology and Laboratory Medicine at [facility], certified under the Clinical Laboratory Improvement Amendments [...] Information for Healthcare Professionals (https://www.cdc.gov/coronavirus/2019-ncov/hcp/index.html). SARS-CoV-2 Source WALLPAPER CONSULTANT Swab Blood culture [[id number]] Collected: 09/01/192207 Lab Status: Preliminary result Specimen: Blood Updated: 09/02/192300 Blood Culture No growth at 1 day. Blood culture [[id number]] Collected: 09/01/192207 Lab Status: Preliminary result Specimen: [...] home in 2 days Rizwan Lama, MS4 [facility] Medicine Team pager #[phone] Personal pager #[phone] * Plan of Care - Sabrina Castro RN - 09/03/2019 12:26 AM EDT Problem: Patient Care Overview Goal: Plan of Care Review Outcome: Ongoing (Interventions Implemented as Appropriate) 09/02/19 0825 09/02/19 0173 Plan of Care Review Progress progress toward [...] (on steroid taper). She was admitted to [facility] earlier this month for colitis c/b [...] Fluid Culture, Aerobic & Anaerobic Abdominal Fluid [[id number]] Collected: 09/02/19 1300 Lab Status: In process Specimen: Abdominal Fluid Updated: 09/02/19 1527 Body Fluid Culture, Aerobic [[id number]] (Abnormal) Collected: 09/02/19 1300 Lab Status: Preliminary result Specimen: Abdominal Fluid Updated: 09/02/19 1527 Gram Stain -- Many Neutrophils seen Many Gram Positive Cocci seen Few Gram Negative Rods seen Rare Gram Positive Rods seen COVID-19 PCR [[id number]] Collected: 09/02/19 0141 Lab Status: Final result [...] using the Simplexa COVID-19 Direct Assay by [employer] as authorized by the FDA issued Emergency [...] Department of Pathology and Laboratory Medicine at [facility], certified under the Clinical Laboratory Improvement Amendments [...] Information for Healthcare Professionals (https://www.cdc.gov/coronavirus/2019-ncov/hcp/index.html). 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 She had seen Dr. Oliveros in GI telehealth on 08/17 after her hospitalization at [facility], plan was to quick taper Prednisone [...] file Gets together: Not on file Attends anabaptism service: Not on file Active member of [...] washospitalized in the beginning of August at [facility] with worsening diarrhea/painful defecation/fevers to 102.5 [...] culture sensitivity data on E. Coli from [facility] - Continue prednisone taper as previously planned - Once she is feeling better we will plan for a bowel prep with a full colonoscopy to re-evaluate response of colitis to antibiotics and extent of involvement The plan as outlined above was discussed with Dr. Castro. Hesham Dosbon MD Gastroenterology Fellow #[phone] I have seen and evaluated the patient [...] colitis on steroid taper, recent admission to [facility] for colitis c/b E coli bacteremia [...] Past 30 Days: Yes patient admitted to [facility] 08/14-08/16. Patient returned toED on 08/27. [...] Montez would be surrogate decision maker per [place] surrogate decision making law. Any patient receiving care at [facility] must abide by [place] law. The hierarchy for surrogate decision making [...] (i) The agent with financial power of disability attorney or a conservator appointed in accordance [...] Health/Prescription Coverage: Primary Insurance: MEDICARE Secondary Insurance: [employer] [facility] Prescription Coverage: Yes through [employer] Preferred Pharmacy: [facility] Other: N/A Primary Care Provider: Julia Chatterjee MD [phone] Patient/Caregiver Goals of Treatment: To be 100% [...] colitis on steroid taper, recent admission to [facility] for colitis c/b E coli bacteremia tx'd with cipro who has had ongoing fevers and found to have hepatic abscess. Patient is independent with ADLs/IADLs and lives with a supportive . Patient is closely followed by GI and Hematology. Patient feels she is safe to go home without services. Patient's will provide transportation viaprivate car at discharge. Patient has insurance coverage through [email or web address] and request medications be sent to [facility] in [facility]. Patient declines Advance Directive paperwork at this time. Plan: A member of the Care Management team will continue to monitor progress, follow for continuityof care and assist with transition of care planning. JAMES Enrique Pager: [phone] * Plan of Care - Claudine Huertas [...] near nsg station, call light within reach, francesco on [...] Scheduled View Only Radiation Oncology at [address] [phone] 04/20/2024 12:45 PM EST Scheduled View Only Radiation Oncology at [address] [phone] 04/21/2024 10:45 AM EST Scheduled View Only Radiation Oncology at [address] [phone] 04/21/2024 11:00 AM EST Office Visit Radiation Oncology at [address] [phone] Radha Casiano MD [facility] [place] [address] 04/22/2024 3:00 PM EST Scheduled View Only Radiation Oncology at [address] [phone] 04/23/2024 3:00 PM EST Scheduled View Only Radiation Oncology at [address] [phone] 04/24/2024 3:00 PM EST Scheduled View Only Radiation Oncology at [address] [phone] 04/27/2024 11:15 AM EST Scheduled View Only Radiation Oncology at [address] [phone] 04/28/2024 11:30 AM EST Scheduled View Only Radiation Oncology at [address] [phone] 04/28/2024 12:00 PM EST Office Visit Radiation Oncology at [address] [phone] aRdha Casiano MD [facility] [place] [address] 04/28/2024 2:00 PM EST Office Visit Cardiology at [address] [place] [phone] Letty Montejo, JAYLEN [facility] [address] [place] [address] 04/29/2024 11:15 AM EST Scheduled View Only Radiation Oncology at [address] [phone] 04/30/2024 11:30 AM EST Scheduled View Only Radiation Oncology at [address] [phone] 05/01/2024 11:15 AM EST Scheduled View Only Radiation Oncology at [address] [phone] 05/04/2024 10:45 AM EST Scheduled View Only Radiation Oncology at [address] [phone] 05/05/2024 1:00 PM EST Scheduled View Only Radiation Oncology at [address] [phone] 05/05/2024 1:15 PM EST Office Visit Radiation Oncology at [address] [phone] Radha Casiano MD [facility] [place] [address] 05/06/2024 1:00 PM EST Scheduled View Only Radiation Oncology at [address] [phone] 05/07/2024 1:00 PM EST Scheduled View Only Radiation Oncology at [address] [phone] 05/08/2024 1:00 PM EST Scheduled View Only Radiation Oncology at [address] [phone] 05/11/2024 11:30 AM EST Scheduled View Only Radiation Oncology at [address] [phone] 01/13/2025 1:00 PM EST Office Visit Hematology/Oncology at [address] [phone] Lee Ann Jay MD [facility] [place] [address] Leti Anderson APRN [facility] [address] [place] [address] Scheduled Referrals Name Type Priority Associated Diagnoses [...] 09/02/2019 1:00 PM EDT RAPID COVID-19 PCR ([facility]) STAT 09/02/2019 1:41 AM EDT URINALYSIS MICROSCOPIC [...] STAT 09/01/2019 7:57 PM EDT Sigmoidoscopy, Diagnostic (70110) colitis documented in this encounter Results * [...] Place PICC Line: Contact Vascular Access Page [phone] Extremity to exclude: No restrictions; Is PICC [...] to the planned procedure. Hand Hygiene: The ceramics artist did perform hand hygiene prior to line insertion. Catheter type: PICC Lot number: [id number] Procedure Technique: Skin was prepped with chlorhexidine. [...] 6:23 AM EDT) Neutrophil % 65.2 % [facility] Neutrophil Absolute 4.83 1.70 - 6.10 x10(3)/mc L [facility] Lymph % 20.6 % [facility] Lymphocytes Abs 1.5 0.9 - 3.2 x10(3)/mc L [facility] Monocyte % 6.7 % [facility] Monocyte Abs 0.5 0.3 - 0.9 x10(3)/mc L [facility] Eos % 0.1 % [facility] Eosinophils Abs 0.0 0.0 - 0.4 x10(3)/mc L [facility] Basophil % 0.1 % [facility] Baso Absolute 0.0 0.0 - 0.1 x10(3)/mc L [facility] Immature Gran % 7.30 % [facility] Comment: Immature granulocytes(IG's)percentage and absolute count will include metamyelocytes, myelocytes, and promyelocytes. Blood smears from CBCs yielding IG's will be scanned manually for concordance. If this scan disagrees with the automated IG or if promyelocytes are noted, a manual differential will be performed. Immature Gran Absolute 0.54(H) 0.00 - 0.04 x10(3)/ L [facility] Blood specimen (specimen) 09/07/2019 6:23 AM EDT 09/07/2019 6:48 AM EDT Narrative Resulting Agency Comment Spec In Lab Terrance Santana MD HEMATOLOGY ORDERABLE S [facility] [place] [address] * (ABNORMAL) Hemogram (09/07/2019 6:23 AM EDT) White Blood Cell 7.4 4.0 - 9.5 x10(3)/[facility] Red Blood Cell 4.23 4.00 - 5.21 x10(6)/[facility] Hemoglobin 11.7 11.7 - 15.5 gm/dL [facility] Hematocrit 38.0 35.7 - 45.8 % [facility] Mean Cell Volume 89.8 82.6 - 94.4 fL [facility] Mean Cell Hemoglobin 27.7 27.1 - 32.0 pg [facility] Mean Cell Hemoglobin Concentration 30.8(L) 31.7 - 35.0 gm/dL [facility] Platelet 306 145 - 357 x10(3)/[facility] RDW Standard Deviation 46.4(H) 37.0 - 46.0 [facility] RDW coefficient of variation 14.3(H) 11.5 - 14.1 % [facility] Mean Platelet Volume 9.9 7.6 - 12.9 fL [facility] NRBC% auto 0.0 % [facility] NRBC Absolute 0.000 0.000 - 0.000 x10(3)/ L [facility] Blood specimen (specimen) 09/07/2019 6:23 AM EDT 09/07/2019 6:48 AM EDT Narrative Resulting Agency Comment Spec In Lab Terrance Santana MD HEMATOLOGY ORDERABLE S [facility] [place] [address] * (ABNORMAL) Differential, Automated (09/06/2019 9:50 AM EDT) Neutrophil % 75.8 % [facility] Neutrophil Absolute 8.52(H) 1.70 - 6.10 x10(3)/ L [facility] Lymph % 10.1 % [facility] Lymphocytes Abs 1.1 0.9 - 3.2 x10(3)/[facility] Monocyte % 7.5 % [facility] Monocyte Abs 0.8 0.3 - 0.9 x10(3)/[facility] Eos % 0.1 % [facility] Eosinophils Abs 0.0 0.0 - 0.4 x10(3)/[facility] Basophil % 0.4 % [facility] Baso Absolute 0.0 0.0 - 0.1 x10(3)/[facility] Immature Gran % 6.10 % [facility] Comment: Immature granulocytes(IG's)percentage and absolute count will include metamyelocytes, myelocytes, and promyelocytes. Blood smears from CBCs yielding IG's will be scanned manually for concordance. If this scan disagrees with the automated IG or if promyelocytes are noted, a manual differential will be performed. Immature Gran Absolute 0.69(H) 0.00 - 0.04 x10(3)/ L [facility] Blood specimen (specimen) 09/06/2019 9:50 AM EDT 09/06/2019 10:44 AM EDT Narrative Resulting Agency Comment Spec In Lab Terrance Santana MD HEMATOLOGY ORDERABLE S [facility] [place] [address] * (ABNORMAL) Hemogram (09/06/2019 9:50 AM EDT) [facility] White Blood Cell 11.2(H) 4.0 - 9.5 x10(3)/mc L [facility] Red Blood Cell 4.38 4.00 - 5.21 x10(6)/mc L [facility] Hemoglobin 12.3 11.7 - 15.5 gm/dL [facility] Hematocrit 39.6 35.7 - 45.8 % [facility] Mean Cell Volume 90.4 82.6 - 94.4 fL [facility] Mean Cell Hemoglobin 28.1 27.1 - 32.0 pg [facility] Mean Cell Hemoglobin Concentration 31.1(L) 31.7 - 35.0 gm/dL [facility] Platelet 300 145 - 357 x10(3)/ L [facility] RDW Standard Deviation 46.3(H) 37.0 - 46.0 fL [facility] RDW coefficient of variation 14.0 11.5 - 14.1 % [facility] Mean Platelet Volume 10.0 7.6 - 12.9 fL [facility] NRBC% auto 0.0 % [facility] NRBC Absolute 0.000 0.000 - 0.000 x10(3)/ L [facility] Blood specimen (specimen) 09/06/2019 9:50 AM EDT 09/06/2019 10:44 AM EDT Narrative Resulting Agency Comment Spec In Lab Terrance Santana MD HEMATOLOGY ORDERABLE S [facility] [place] [address] * Scan, Peripheral Blood (09/05/2019 4:52 AM EDT) [facility] Plat estimate Normal [facility] RBC Morphology Abnormal [facility] Ovalocytes 1-5 /HPF [facility] Blood specimen (specimen) 09/05/2019 4:52 AM EDT 09/05/2019 5:06 AM EDT Narrative Resulting Agency Comment Spec In Lab Terrance Santana MD HEMATOLOGY ORDERABLE S [facility] [place] [address] * (ABNORMAL) Differential, Automated (09/05/2019 4:52 AM EDT) Neutrophil % 27.5 % [facility] Neutrophil Absolute 0.42(Crit ical) 1.70 - 6.10 x10(3)/mc L [facility] Comment: This result has been called to TOM AHUJA by RADHA JOHN on 09 05 2019 at 0551, and has been read back. Lymph % 46.4 % [facility] Lymphocytes Abs 0.7(L) 0.9 - 3.2 x10(3)/mc L [facility] Monocyte % 17.6 % [facility] Monocyte Abs 0.3 0.3 - 0.9 x10(3)/mc L [facility] Eos % 0.0 % [facility] Eosinophils Abs 0.0 0.0 - 0.4 x10(3)/mc L [facility] Basophil % 0.0 % [facility] Baso Absolute 0.0 0.0 - 0.1 x10(3)/mc L [facility] Immature Gran % 8.50 % [facility] Comment: Immature granulocytes(IG's)percentage and absolute count will include metamyelocytes, myelocytes, and promyelocytes. Blood smears from CBCs yielding IG's will be scanned manually for concordance. If this scan disagrees with the automated IG or if promyelocytes are noted, a manual differential will be performed. Immature Gran Absolute 0.13(H) 0.00 - 0.04 x10(3)/mc L [facility] Blood specimen (specimen) 09/05/2019 4:52 AM EDT 09/05/2019 5:06 AM EDT Narrative Resulting Agency Comment Spec In Lab Terrance Santana MD HEMATOLOGY ORDERABLE S [facility] [place] [address] * (ABNORMAL) Hemogram (09/05/2019 4:52 AM EDT) White Blood Cell 1.5(Criti tosha) 4.0 - 9.5 x10(3)/mc L [facility] Comment: This result has been called to TOM AHUJA by RADHA JOHN on 09 05 2019 at 0551, and has been read back. Red Blood Cell 3.95(L) 4.00 - 5.21 x10(6)/mc L [facility] Hemoglobin 11.0(L) 11.7 - 15.5 gm/dL [facility] Hematocrit 35.8 35.7 - 45.8 % [facility] Mean Cell Volume 90.6 82.6 - 94.4 [facility] Mean Cell Hemoglobin 27.8 27.1 - 32.0 pg [facility] Mean Cell Hemoglobin Concentration 30.7(L) 31.7 - 35.0 gm/dL [facility] Platelet 266 145 - 357 x10(3)/mc L [facility] RDW Standard Deviation 45.3 37.0 - 46.0 [facility] RDW coefficient of variation 13.7 11.5 - 14.1 % [facility] Mean Platelet Volume 9.7 7.6 - 12.9 [facility] NRBC% auto 0.0 % [facility] NRBC Absolute 0.000 0.000 - 0.000 x10(3)/mc L [facility] Blood specimen (specimen) 09/05/2019 4:52 AM EDT 09/05/2019 5:06 AM EDT Narrative Resulting Agency Comment Spec In Lab Terrance Santana MD HEMATOLOGY ORDERABLE S Performing Organization Address City/[facility]/ZIP Co de Phone Number [facility] [place] [address] * Scan, Peripheral Blood (09/04/2019 4:43 AM EDT) Plat estimate Normal [facility] RBC Morphology Normal [facility] Blood specimen (specimen) 09/04/2019 4:43 AM EDT 09/04/2019 5:23 AM EDT Narrative Resulting Agency Comment Spec In Lab Terrance Santana MD HEMATOLOGY ORDERABLE S Performing Organization Address City/[facility]/ZIP Co de Phone Number [facility] [place] [address] * (ABNORMAL) Basic Metabolic Panel (non-fasting) (09/04/2019 4:43 AM EDT) Glucose 88 65 - 199 mg/dL [facility] Comment:Diabetes: >=200 mg/d L plus symptoms Blood Urea Nitrogen 9 8 - 18 mg/dL [facility] Creatinine 0.49(L) 0.70 - 1.20 mg/dL [facility] Sodium 138 135 - 145 mmol/L [facility] Potassium 4.1 3.5 - 5.0 mmol/L [facility] Comment: Please note: ??Patients with WBC >100,000 may have falsely elevated Potassium levels. ??For accurate Potassium quantification in these patients send serum separator tube (gold top) for subsequent determinations. ??Contact the Clinical Chemistry Laboratory if there are any questions. Chloride 101 98 - 107 mmol/L [facility] Carbon Dioxide 27 22 - 31 mmol/L [facility] Anion Gap 10 5 - 15 mmol/L [facility] Calcium 9.4 8.5 - 10.5 mg/dL [facility] Est Glomerular Filtration Rate 101 >=60 mL/min/1. 73 m?? [facility] Comment: The eGFR was calculated using the CKD-EPI equation. As with all creatinine based estimates of kidney function, eGFR values calculated with the CKD-EPI equation are not accurate in patients with acute kidney failure, extremes of body mass or the acutely ill. [email or web address] eGFR 117 >=60 mL/min/1. 73 m?? [facility] Comment: The eGFR was calculated using the CKD-EPI equation. As with all creatinine based estimates of kidney function, eGFR values calculated with the CKD-EPI equation are not accurate in patients with acute kidney failure, extremes of body mass or the acutely ill. [email or web address] Blood specimen (specimen) 09/04/2019 4:43 AM EDT 09/04/2019 5:00 AM EDT Narrative Resulting Agency Comment Spec In Lab Alexis Caro MD CHEMISTRY ORDERABLES [facility] [place] [address] * (ABNORMAL) Differential, Automated (09/04/2019 4:43 AM EDT) Neutrophil % 32.3 % [facility] Neutrophil Absolute 0.60(L) 1.70 - 6.10 x10(3)/mc L [facility] Lymph % 47.3 % [facility] Lymphocytes Abs 0.9 0.9 - 3.2 x10(3)/mc L [facility] Monocyte % 14.0 % [facility] Monocyte Abs 0.3 0.3 - 0.9 x10(3)/mc L [facility] Eos % 0.0 % [facility] Eosinophils Abs 0.0 0.0 - 0.4 x10(3)/mc L [facility] Basophil % 0.5 % [facility] Baso Absolute 0.0 0.0 - 0.1 x10(3)/mc L [facility] Immature Gran % 5.90 % [facility] Comment: Immature granulocytes(IG's)percentage and absolute count will include metamyelocytes, myelocytes, and promyelocytes. Blood smears from CBCs yielding IG's will be scanned manually for concordance. If this scan disagrees with the automated IG or if promyelocytes are noted, a manual differential will be performed. Immature Gran Absolute 0.11(H) 0.00 - 0.04 x10(3)/mc L [facility] Blood specimen (specimen) 09/04/2019 4:43 AM EDT 09/04/2019 5:23 AM EDT Narrative Resulting Agency Comment Spec In Lab Terrance Santana MD HEMATOLOGY ORDERABLE S Performing Organization Address City/State/[facility] Co de Phone Number [facility] [place] [address] * (ABNORMAL) Hemogram (09/04/2019 4:43 AM EDT) White Blood Cell 1.9(Criti tosha) 4.0 - 9.5 x10(3)/mc L [facility] Comment: This result has been called to FLO DEE by MIMA ELISE on 09 04 2019 at 0608, and has been read back. Red Blood Cell 4.32 4.00 - 5.21 x10(6)/mc L [facility] Hemoglobin 12.0 11.7 - 15.5 gm/dL [facility] Hematocrit 38.4 35.7 - 45.8 % [facility] Mean Cell Volume 88.9 82.6 - 94.4 fL [facility] Mean Cell Hemoglobin 27.8 27.1 - 32.0 pg [facility] Mean Cell Hemoglobin Concentration 31.3(L) 31.7 - 35.0 gm/dL [facility] Platelet 296 145 - 357 x10(3)/mc L [facility] RDW Standard Deviation 44.5 37.0 - 46.0 fL [facility] RDW coefficient of variation 13.8 11.5 - 14.1 % [facility] Mean Platelet Volume 9.8 7.6 - 12.9 fL [facility] NRBC% auto 0.0 % [facility] NRBC Absolute 0.000 0.000 - 0.000 x10(3)/mc L [facility] Blood specimen (specimen) 09/04/2019 4:43 AM EDT 09/04/2019 5:23 AM EDT Narrative Resulting Agency Comment Spec In Lab Terrance Santana MD HEMATOLOGY ORDERABLE S Performing Organization Address City/State/[facility] Co de Phone Number [facility] [place] [address] * (ABNORMAL) Differential, Automated (09/03/2019 6:36 AM EDT) Neutrophil % 57.4 % [facility] Neutrophil Absolute 2.33 1.70 - 6.10 x10(3)/mc L [facility] Lymph % 20.0 % [facility] Lymphocytes Abs 0.8(L) 0.9 - 3.2 x10(3)/mc L [facility] Monocyte % 17.5 % [facility] Monocyte Abs 0.7 0.3 - 0.9 x10(3)/mc L [facility] Eos % 0.0 % [facility] Eosinophils Abs 0.0 0.0 - 0.4 x10(3)/mc L [facility] Basophil % 0.2 % [facility] Baso Absolute 0.0 0.0 - 0.1 x10(3)/mc L [facility] Immature Gran % 4.90 % [facility] Comment: Immature granulocytes(IG's)percentage and absolute count will include metamyelocytes, myelocytes, and promyelocytes. Blood smears from CBCs yielding IG's will be scanned manually for concordance. If this scan disagrees with the automated IG or if promyelocytes are noted, a manual differential will be performed. Immature Gran Absolute 0.20(H) 0.00 - 0.04 x10(3)/mc L [facility] Blood specimen (specimen) 09/03/2019 6:36 AM EDT 09/03/2019 6:59 AM EDT Narrative Resulting Agency Comment Spec In Lab Terrance Santana MD HEMATOLOGY ORDERABLE S [facility] [place] [address] * (ABNORMAL) Hemogram (09/03/2019 6:36 AM EDT) White Blood Cell 4.1 4.0 - 9.5 x10(3)/mc L [facility] Red Blood Cell 4.42 4.00 - 5.21 x10(6)/mc L [facility] Hemoglobin 12.0 11.7 - 15.5 gm/dL [facility] Hematocrit 39.6 35.7 - 45.8 % [facility] Mean Cell Volume 89.6 82.6 - 94.4 fL [facility] Mean Cell Hemoglobin 27.1 27.1 - 32.0 pg [facility] Mean Cell Hemoglobin Concentration 30.3(L) 31.7 - 35.0 gm/dL [facility] Platelet 315 145 - 357 x10(3)/mc L [facility] RDW Standard Deviation 44.9 37.0 - 46.0 fL [facility] RDW coefficient of variation 13.7 11.5 - 14.1 % [facility] Mean Platelet Volume 10.2 7.6 - 12.9 fL [facility] NRBC% auto 0.0 % [facility] NRBC Absolute 0.000 0.000 - 0.000 x10(3)/mc L [facility] Blood specimen (specimen) 09/03/2019 6:36 AM EDT 09/03/2019 6:59 AM EDT Narrative Resulting Agency Comment Spec In Lab Terrance Santana MD HEMATOLOGY ORDERABLE S Performing Organization Address [facility] Co de Phone Number [facility] [place] [address] * (ABNORMAL) Hepatic Function Panel (09/03/2019 6:36 AM EDT) [facility] Protein, Total 7.3 6.1 - 8.0 gm/dL [facility] Albumin 3.2 3.2 - 5.2 gm/dL [facility] Aspartate Aminotransferase 15 0 - 30 unit/L [facility] Alanine Aminotransferase 32(H) 0 - 30 unit/L [facility] Alkaline Phosphatase 105 35 - 105 unit/L [facility] Bilirubin, Total 0.4 0.2 - 1.3 mg/dL [facility] Bilirubin, Direct 0.1 0.0 - 0.3 mg/dL [facility] Blood specimen (specimen) 09/03/2019 6:36 AM EDT 09/03/2019 6:58 AM EDT Narrative Resulting Agency Comment Spec In Lab Alexis Caro MD CHEMISTRY ORDERABLES Performing Organization Address [facility] Co de Phone Number [facility] [place] [address] * (ABNORMAL) BMP w/fasting Glucose (09/03/2019 6:36 AM EDT) Glucose Fasting 102(H) 65 - 99 mg/dL [facility] Comment: ?Fasting* Glucose Interpretive [...] of Diabetes Mellitus, Position Statement from the [place] [employer]. ??Diabetes Care, Volume 33, Supplement 1, Mar 2009 Blood Urea Nitrogen 10 8 - 18 mg/dL [facility] Creatinine 0.54(L) 0.70 - 1.20 mg/dL [facility] Sodium 133(L) 135 - 145 mmol/L [facility] Potassium 3.8 3.5 - 5.0 mmol/L [facility] Comment: Please note: ??Patients with WBC >100,000 may have falsely elevated Potassium levels. ??For accurate Potassium quantification in these patients send serum separator tube (gold top) for subsequent determinations. ??Contact the Clinical Chemistry Laboratory if there are any questions. Chloride 97(L) 98 - 107 mmol/L [facility] Carbon Dioxide 26 22 - 31 mmol/L [facility] Anion Gap 10 5 - 15 mmol/L [facility] Calcium 9.2 8.5 - 10.5 mg/dL [facility] Est Glomerular Filtration Rate 98 >=60 mL/min/1. 73 m?? [facility] Comment: The eGFR was calculated using the CKD-EPI equation. As with all creatinine based estimates of kidney function, eGFR values calculated with the CKD-EPI equation are not accurate in patients with acute kidney failure, extremes of body mass or the acutely ill. [email or web address] eGFR 113 >=60 mL/min/1. 73 m?? [facility] Comment: The eGFR was calculated using the CKD-EPI equation. As with all creatinine based estimates of kidney function, eGFR values calculated with the CKD-EPI equation are not accurate in patients with acute kidney failure, extremes of body mass or the acutely ill. [email or web address] Blood specimen (specimen) 09/03/2019 6:36 AM EDT 09/03/2019 6:58 AM EDT Narrative Resulting Agency Comment Spec In Lab Alexis Caro MD CHEMISTRY ORDERABLES Performing Organization Address [facility]/State/[facility] Co de Phone Number [facility] [place] [address] * CT Guided Aspiration Liver (09/02/2019 1:33 [...] in 4 weeks for fluoroscopic drain check. Recep(s): Resident/Fellow: Johan Hernandez M.D. Attending: Terrance Gunter [...] access tract was dilated and a 10 Belgian locking pigtail drainage catheter was placed. Post [...] vein thrombus.. Final CT showed a 10 Belgian drain positioned in the hepatic fluid collection. [...] vein thrombus.. Final CT showed a 10 Belgian drain positioned inthe hepatic fluid collection. 5 mL of purulent fluid was removed. IMPRESSION Impression: Successful CT-guided drain placement in a hepatic fluidcollection. Plan/disposition: 1) To Angio recovery room, may discharge to floor when meets criteria. 2) Forward flush every 12 hours with 3-5 mL of normal saline. Recordoutputs daily. 3) Patient to return in 4 weeks for fluoroscopic drain check. Recep(s): Resident/Fellow: Johan Hernandez M.D. Attending: Terrance Gunter [...] Bacteroides fragilis Group Moderate Peptostreptococcus species (A) [facility] Organism Clostridium species, not C perfringens(A) [facility] Organism Bacteroides fragilis Group(A) [facility] Organism Peptostreptococcus species(A) [facility] Specimen from abdominal cavity (specimen) 09/02/2019 1:00 PM EDT 09/02/2019 1:33 PM EDT Comment:CT GUIDED LIVER ABSC ESS DRAIN Narrative Resulting Agency Comment Spec In Lab Terrance Santana MD MICROBIOLOGY - GENER AL ORDERABLES [facility] [place] [address] * (ABNORMAL) Body Fluid Culture, Aerobic (09/02/2019 1:00 PM EDT) Body Fluid Culture Few Actinomyces species(A) [facility] Gram Stain Many Neutrophils seen Many Gram Positive Cocci seen Few Gram Negative Rods seen Rare Gram Positive Rods seen (A) [facility] Organism Actinomyces species(A) [facility] Organism Gram Positive Cocci(A) [facility] Organism Gram Negative Rods(A) [facility] Organism Gram Positive Rods(A) [facility] Specimen from abdominal cavity (specimen) 09/02/2019 1:00 PM EDT 09/02/2019 1:33 PM EDT Comment:CT GUIDED LIVER ABSC ESS DRAIN Narrative Resulting Agency Comment Spec In Lab Terrance Santana MD MICROBIOLOGY - GENER AL ORDERABLES [facility] [place] [address] * COVID-19 PCR (09/02/2019 1:41 AM EDT) SARS-CoV-2 RNA (Rapid) Not Detected Not Detected [facility] Comment: This result should [...] using the Simplexa COVID-19 Direct Assay by [employer] as authorized by the FDA issued Emergency [...] Department of Pathology and Laboratory Medicine at [facility], certified under the Clinical Laboratory Improvement Amendments [...] Information for Healthcare Professionals (https://www.cdc.gov/coronavirus/2019-ncov/hcp/index.html). SARS-CoV-2 Source [employer] [place] [facility] Nasopharyngeal swab (specimen) 09/02/2019 1:41 AM EDT 09/02/2019 2:13 AM EDT Comment:Symptoms->Surveillan ce Narrative Resulting Agency Comment Spec In Lab Terrance Meade MD MICROBIOLOGY - GEN ERAL ORDERABLES Performing Organization Address [facility]/ZIP Co de Phone Number [facility] [place] [address] * (ABNORMAL) Urinalysis Microscopic Exam (09/01/2019 11:33 PM EDT) RBC, Urine 5(H) 0 - 4 /HPF [facility] WBC, Urine 1 0 - 5 /HPF [facility] Squamous Epithelial Cells Raw Data, Urine 1 <=4 /HPF [facility] Hyaline Casts, Urine 3(H) 0 - 2 /LPF [facility] Urine specimen obtained by clean catch procedure (specimen) 09/01/2019 11:33 PM EDT 09/01/2019 11:43 PM EDT Narrative Resulting Agency Comment Spec In Lab Ministerio Kline MD URINE ORDERABLES Performing Organization Address [facility]/ZIP Co de Phone Number [facility] [place] [address] * (ABNORMAL) Urinalysis with reflex Culture (09/01/2019 11:33 PM EDT) Glucose, Urine Dipstick Negative Negative mg/dL [facility] Protein, Urine Dipstick 30(A) Negative mg/dL [facility] Bilirubin, Urine Dipstick Negative Negative mg/dL [facility] Comment: Clinical correlation required for positive Urine Bilirubin results as false positive may occur with some drugs and drug related products. If a false positive is suspected a serum total bilirubin should be considered if clinically indicated. Urobilinogen, Urine Dipstick Normal Normal mg/dL [facility] pH, Urn (dipstick) 5.0 5.0 - 8.0 [facility] Blood, Urine Dipstick Trace(A) Negative mg/dL [facility] Ketone, Urine Dipstick Trace(A) Negative mg/dL [facility] Nitrite, Urine Dipstick Negative Negative [facility] Leukocytes, Urine Dipstick Negative Negative [facility] Appearance, Urine Dipstick Clear Clear [facility] Specific [place] Urine Automated >=1.030(A) 1.006 - 1.030 [facility] Color, Urine Dipstick Yellow Yellow [facility] Reflex to Culture No [facility] Urine specimen obtained by clean catch procedure (specimen) 09/01/2019 11:33 PM EDT 09/01/2019 11:43 PM EDT Narrative Resulting Agency Comment Spec In Lab Sebastian Chappell MD URINE ORDERABLES [facility] [place] [address] * (ABNORMAL) BLOOD GAS 2 VENOUS (09/01/2019 10:18 PM EDT) pH, Venous 7.45(H) 7.32 - 7.42 [facility] PCO2, Venous 42 41 - 51 mmHg [facility] PO2, Venous 51(H) 25 - 40 mmHg [facility] Bicarbonate, Venous 28.1 mmol/L [facility] Base Excess, Venous 4.0 mmol/L [facility] Hgb Blood Gas 13.3 11.7 - 15.5 gm/dL [facility] Oxyhemoglobin, Venous 85.5 % [facility] Carboxyhemoglob in, Venous 0.1 % [facility] Comment: Nonsmokers: 0.5-1.5% COHB Smokers: Variable, but usually less than 10% Toxic: 20-30% COHB Lethal: Greater than 60% COHB Methemoglobin, Venous 0.4 <=1.5 % [facility] Na Whole Blood 133(L) 135 - 145 mmol/L [facility] K Whole Blood 4.1 3.5 - 5.0 mmol/L [facility] Comment: Please note: Patients with WBC >100,000 may have falsely elevated Potassium levels. Contact the Clinical Chemistry Laboratory if there are any questions. ICa Whole Blood 1.17 1.15 - 1.33 mmol/L [facility] Comment: Note: ??Total bilirubin higher than 20 mg/dL may lead to falsely low ionized calcium. CL Whole Blood 97(L) 98 - 107 mmol/L [facility] Gluc Whole Bld 108 65 - 199 mg/dL [facility] Comment:Diabetes: >=200 mg/d L plus symptoms Lactate WB 1.4 0.5 - 2.2 mmol/L [facility] Blood Gas Source Venous [facility] Blood specimen (specimen) 09/01/2019 10:18 PM EDT 09/01/2019 10:18 PM EDT Amrik Zapata MD POINT OF CARE LIDIA T ORDERABLES [facility] [place] [address] * Scan, Peripheral Blood (09/01/2019 10:08 PM EDT) Plat estimate Normal [facility] RBC Morphology Normal [facility] Blood specimen (specimen) 09/01/2019 10:08 PM EDT 09/01/2019 10:18 PM EDT Narrative Resulting Agency Comment Spec In Lab Ministerio Kline MD HEMATOLOGY ORDERABLE S Performing Organization Address City/[facility]/ZIP Co de Phone Number [facility] [place] [address] * Gold Tube HOLD (09/01/2019 10:08 PM EDT) [facility] Gold Hold Sample in lab. [facility] Blood specimen (specimen) Venous Draw / Unknown 09/01/2019 10:08 PM EDT 09/01/2019 10:19 PM EDT Ministerio Kline MD CHEMISTRY ORDERABLES Performing Organization Address City/[facility]/ZIP Co de Phone Number [facility] [place] [address] * (ABNORMAL) Differential, Automated (09/01/2019 10:08 PM EDT) [facility] Neutrophil % 59.8 % [facility] Neutrophil Absolute 3.26 1.70 - 6.10 x10(3)/mc L [facility] Lymph % 17.9 % [facility] Lymphocytes Abs 1.0 0.9 - 3.2 x10(3)/mc L [facility] Monocyte % 14.8 % [facility] Monocyte Abs 0.8 0.3 - 0.9 x10(3)/mc L [facility] Eos % 0.0 % [facility] Eosinophils Abs 0.0 0.0 - 0.4 x10(3)/mc L [facility] Basophil % 0.4 % [facility] Baso Absolute 0.0 0.0 - 0.1 x10(3)/mc L [facility] Immature Gran % 7.10 % [facility] Comment: Immature granulocytes(IG's)percentage and absolute count will include metamyelocytes, myelocytes, and promyelocytes. Blood smears from CBCs yielding IG's will be scanned manually for concordance. If this scan disagrees with the automated IG or if promyelocytes are noted, a manual differential will be performed. Immature Gran Absolute 0.39(H) 0.00 - 0.04 x10(3)/mc L [facility] Blood specimen (specimen) 09/01/2019 10:08 PM EDT 09/01/2019 10:18 PM EDT Narrative Resulting Agency Comment Spec In Lab Ministerio Kline MD HEMATOLOGY ORDERABLE S [facility] [place] [address] * (ABNORMAL) Hemogram (09/01/2019 10:08 PM EDT) White Blood Cell 5.5 4.0 - 9.5 x10(3)/mc L [facility] Red Blood Cell 4.02 4.00 - 5.21 x10(6)/mc L [facility] Hemoglobin 11.2(L) 11.7 - 15.5 gm/dL [facility] Hematocrit 35.4(L) 35.7 - 45.8 % [facility] Mean Cell Volume 88.1 82.6 - 94.4 fL [facility] Mean Cell Hemoglobin 27.9 27.1 - 32.0 pg [facility] Mean Cell Hemoglobin Concentration 31.6(L) 31.7 - 35.0 gm/dL [facility] Platelet 308 145 - 357 x10(3)/mc L [facility] RDW Standard Deviation 45.1 37.0 - 46.0 fL [facility] RDW coefficient of variation 13.9 11.5 - 14.1 % [facility] Mean Platelet Volume 9.8 7.6 - 12.9 fL [facility] NRBC% auto 0.0 % [facility] NRBC Absolute 0.000 0.000 - 0.000 x10(3)/mc L [facility] Blood specimen (specimen) 09/01/2019 10:08 PM EDT 09/01/2019 10:18 PM EDT Narrative Resulting Agency Comment Spec In Lab Ministerio Kline MD HEMATOLOGY ORDERABLE S Performing Organization Address City/[facility]/ZIP Co de Phone Number [facility] [place] [address] * APTT (09/01/2019 10:08 PM EDT) Partial Thromboplastin Time 31 25 - 37 sec [facility] Comment: The PTT is NOT appropriate for heparin monitoring. Use the Anti-Xa level for heparin monitoring (HEP UFH) or LMWH monitoring (HEP LMW). A PTT less than 37 seconds generally indicates adequate hemostasis. Blood specimen (specimen) 09/01/2019 10:08 PM EDT 09/01/2019 10:18 PM EDT Narrative Resulting Agency Comment Spec In Lab Sebastian Chappell MD HEMATOLOGY ORDERABLE S Performing Organization Address [facility] Co de Phone Number [facility] [place] [address] * Blood culture (09/01/2019 10:08 PM EDT) Blood Culture No growth at 5 days. [facility] Blood specimen (specimen) 09/01/2019 10:08 PM EDT 09/01/2019 10:29 PM EDT Comment:LFA Narrative Resulting Agency Comment Spec In Lab Sebastian Chappell MD MICROBIOLOGY - BLOOD ORDERABLES Performing Organization Address [facility] Co de Phone Number [facility] [place] [address] * Blood culture (09/01/2019 10:08 PM EDT) Blood Culture No growth at 5 days. [facility] Blood specimen (specimen) 09/01/2019 10:08 PM EDT 09/01/2019 10:28 PM EDT Comment:LAC Narrative Resulting Agency Comment Spec In Lab Sebastian Chappell MD MICROBIOLOGY - BLOOD ORDERABLES Performing Organization Address City/[facility]/ZIP Co de Phone Number [facility] [place] [address] * (ABNORMAL) Prothrombin Time (09/01/2019 10:08 PM EDT) Prothrombin Time 13.6(H) 9.4 - 12.5 sec [facility] International Normalization Ratio 1.2 [facility] Comment: An INR <2.0 [...] MD HEMATOLOGY ORDERABLE S Performing Organization Address City/[facility]/ZIP Co de Phone Number [facility] [place] [address] * Lipase (09/01/2019 10:08 PM EDT) Lipase 30 0 - 60 unit/L [facility] Blood specimen (specimen) 09/01/2019 10:08 PM EDT 09/01/2019 10:18 PM EDT Narrative Resulting Agency Comment Spec In Lab Sebastian Chappell MD CHEMISTRY ORDERABLES [facility] [place] [address] * (ABNORMAL) Hepatic Function Panel (09/01/2019 10:08 PM EDT) [facility] Protein, Total 7.3 6.1 - 8.0 gm/dL [facility] Albumin 3.5 3.2 - 5.2 gm/dL [facility] Aspartate Aminotransferase 25 0 - 30 unit/L [facility] Alanine Aminotransferase 44(H) 0 - 30 unit/L [facility] Alkaline Phosphatase 112(H) 35 - 105 unit/L [facility] Bilirubin, Total 0.3 0.2 - 1.3 mg/dL [facility] Bilirubin, Direct 0.1 0.0 - 0.3 mg/dL [facility] Blood specimen (specimen) 09/01/2019 10:08 PM EDT 09/01/2019 10:18 PM EDT Narrative Resulting Agency Comment Spec In Lab Sebastian Chappell MD CHEMISTRY ORDERABLES [facility] [place] [address] * (ABNORMAL) Basic Metabolic Panel (non-fasting) (09/01/2019 10:08 PM EDT) [facility] Glucose 117 65 - 199 mg/dL [facility] Comment:Diabetes: >=200 mg/d L plus symptoms Blood Urea Nitrogen 10 8 - 18 mg/dL [facility] Creatinine 0.67(L) 0.70 - 1.20 mg/dL [facility] Sodium 134(L) 135 - 145 mmol/L [facility] Potassium 4.0 3.5 - 5.0 mmol/L [facility] Comment: Please note: ??Patients with WBC >100,000 may have falsely elevated Potassium levels. ??For accurate Potassium quantification in these patients send serum separator tube (gold top) for subsequent determinations. ??Contact the Clinical Chemistry Laboratory if there are any questions. Chloride 94(L) 98 - 107 mmol/L [facility] Carbon Dioxide 27 22 - 31 mmol/L [facility] Anion Gap 13 5 - 15 mmol/L [facility] Calcium 8.8 8.5 - 10.5 mg/dL [facility] Est Glomerular Filtration Rate 91 >=60 mL/min/1. 73 m?? [facility] Comment: The eGFR was calculated using the CKD-EPI equation. As with all creatinine based estimates of kidney function, eGFR values calculated with the CKD-EPI equation are not accurate in patients with acute kidney failure, extremes of body mass or the acutely ill. [email or web address] eGFR 105 >=60 mL/min/1. 73 m?? [facility] Comment: The eGFR was calculated using the CKD-EPI equation. As with all creatinine based estimates of kidney function, eGFR values calculated with the CKD-EPI equation are not accurate in patients with acute kidney failure, extremes of body mass or the acutely ill. [email or web address] Blood specimen (specimen) 09/01/2019 10:08 PM EDT 09/01/2019 10:18 PM EDT Narrative Resulting Agency Comment Spec In Lab Sebastian Chappell MD CHEMISTRY ORDERABLES Performing Organization Address [facility] Co de Phone Number [facility] [place] [address] * Film Library- Storage Only CT Abdomen & Pelvis (09/01/2019 7:57 PM EDT) Narrative [facility] - 09/01/2019 7:57 PM EDT This exam is auto-finalizing. It's purpose is for storage only. Yola Oliveros MD IMG FILM LIBRARY ORD ERABLES Performing Organization Address [facility] Co de Phone Number [place], [place] documented in this encounter Visit Diagnoses [...] 1814, Until Sat09/07/19 at 1923, Constipation, Routine predniSONE (Deltasone) tablet [...] Germaine Rivera RN)1409 (Given - Provider: Germaine Rivera, DAYANA) pantoprazole EC (Protonix) tablet 20 mg 20 [...] RN)1647 (New Bag - Provider: Germaine Rivera RN)2046 (Stopped - Provider: Terrance Enciso RN) 0107 [...] Hitchcock RN) 1057 (Given - Provider: Germaine Rivera, DAYANA) 0904 (Given - Provider: Germaine Rivera RN) [...] DAYANA)2046 (Given - Provider: Kyrie Camilo RN) 09 [...] Camilo, DAYANA) 0900 (Given - Provider: Germaine Rivera RN) [...] on Sat09/02/19 at 0240, Until Sat09/07/19 at 192, flush, Flush pertains to all indwelling lines. [...] first. documented in this encounter Care Teams Manager Card Relationship Specialty Start Date End Date Julia Chatterjee MD [facility] [address] [place] [address] PCP - General 01/31/10 documented as of this encounter
--- OUTSIDE RECORDS SUMMARY | 2024-04-17 01:26 | XMS_ITS | Encounter Summary ---
Author Organization [facility] [place] [address] Care Team Providers Care Kindergarten Teacher Assistant Name Role Phone Julia Chatterjee MD Primary Care Provider [phone] Encounter Details Date Type Department Care Team (Late st Contact Info) Description 08/07/2018 Orders Only Hematology/Oncology at [address] [address] Michelle Layne RN Neutropenia, unspecified type; Large [...] Scheduled View Only Radiation Oncology at [address] [address] 04/20/2024 12:45 PM EST Scheduled View Only Radiation Oncology at [address] [address] 04/21/2024 10:45 AM EST Scheduled View Only Radiation Oncology at [address] [address] 04/21/2024 11:00 AM EST Office Visit Radiation Oncology at [address] [address] Radha Casiano MD [facility] [address] 04/22/2024 3:00 PM EST Scheduled View Only Radiation Oncology at [address] [address] 04/23/2024 3:00 PM EST Scheduled View Only Radiation Oncology at [address] [address] 04/24/2024 3:00 PM EST Scheduled View Only Radiation Oncology at [address] [address] 04/27/2024 11:15 AM EST Scheduled View Only Radiation Oncology at [address] [address] 04/28/2024 11:30 AM EST Scheduled View Only Radiation Oncology at [address] [address] 04/28/2024 12:00 PM EST Office Visit Radiation Oncology at [address] [address] Radha Casiano MD [facility] [address] 04/28/2024 2:00 PM EST Office Visit Cardiology at [address] [place] [address] Letty Montejo, JAYLEN [facility] [place] [address] 04/29/2024 11:15 AM EST Scheduled View Only Radiation Oncology at [address] [address] 04/30/2024 11:30 AM EST Scheduled View Only Radiation Oncology at [address] [address] 05/01/2024 11:15 AM EST Scheduled View Only Radiation Oncology at [address] [address] 05/04/2024 10:45 AM EST Scheduled View Only Radiation Oncology at [address] [address] 05/05/2024 1:00 PM EST Scheduled View Only Radiation Oncology at [address] [address] 05/05/2024 1:15 PM EST Office Visit Radiation Oncology at [address] [address] Radha Casiano MD [facility] [place] [address] 05/06/2024 1:00 PM EST Scheduled View Only Radiation Oncology at [address] [address] 05/07/2024 1:00 PM EST Scheduled View Only Radiation Oncology at [address] [address] 05/08/2024 1:00 PM EST Scheduled View Only Radiation Oncology at [address] [address] 05/11/2024 11:30 AM EST Scheduled View Only Radiation Oncology at [address] [address] 01/13/2025 1:00 PM EST Office Visit Hematology/Oncology at [address] [address] Lee Ann Jay MD [facility] HEMATOLOGY [place] [address] Leti Anderson APRN [facility] HEMATOLOGY [place] [address] documented as of this encounter Visit Diagnoses Diagnosis Neutropenia, unspecified type 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
--- OUTSIDE RECORDS SUMMARY | 2024-04-17 01:26 | XMS_ITS | Encounter Summary ---
[facility] [place] [address] Care Team Providers Care Director Compensation Name Role Phone Julia Chatterjee MD Primary Care Provider [phone] Reason for Visit * Reason Onset Date Comments Follow-up 08/13/2019 Encounter Details Date Type Department Care Team (Late Contact Info) Description 08/13/2019 Telephone Hematology/Oncology at [address] [address] Mera Cintron RN Follow-up Social [...] EDT Spoke with kushal henry nurse at [facility] where pt is at present. Let [...] EST Scheduled View Only Radiation Oncology at [address] [address] 04/20/2024 12:45 PM EST Scheduled View Only Radiation Oncology at [address] [address] 04/21/2024 10:45 AM EST Scheduled View Only Radiation Oncology at [address] [address] 04/21/2024 11:00 AM EST Office Visit Radiation Oncology at [address] [address] Radha Casiano MD [facility] [place] [address] 04/22/2024 3:00 PM EST Scheduled View Only Radiation Oncology at [address] [address] 04/23/2024 3:00 PM EST Scheduled View Only Radiation Oncology at [address] [address] 04/24/2024 3:00 PM EST Scheduled View Only Radiation Oncology at [address] [address] 04/27/2024 11:15 AM EST Scheduled View Only Radiation Oncology at [address] [address] 04/28/2024 11:30 AM EST Scheduled View Only Radiation Oncology at [address] [address] 04/28/2024 12:00 PM EST Office Visit Radiation Oncology at [address] [address] Radha Casiano MD [facility] [place] [address] 04/28/2024 2:00 PM EST Office Visit Cardiology at [address] [place] [address] 341 Letty Montejo APRN [facility] [place] [address] 04/29/2024 11:15 AM EST Scheduled View Only Radiation Oncology at [address] [address] 04/30/2024 11:30 AM EST Scheduled View Only Radiation Oncology at [address] [address] 05/01/2024 11:15 AM EST Scheduled View Only Radiation Oncology at [address] [address] 05/04/2024 10:45 AM EST Scheduled View Only Radiation Oncology at [address] [address] 05/05/2024 1:00 PM EST Scheduled View Only Radiation Oncology at [address] [address] 05/05/2024 1:15 PM EST Office Visit Radiation Oncology at [address] [address] Radha Casiano MD [facility] [place] [address] 05/06/2024 1:00 PM EST Scheduled View Only Radiation Oncology at [address] [address] 05/07/2024 1:00 PM EST Scheduled View Only Radiation Oncology at [address] [address] 05/08/2024 1:00 PM EST Scheduled View Only Radiation Oncology at [address] [address] 05/11/2024 11:30 AM EST Scheduled View Only Radiation Oncology at [address] [address] 01/13/2025 1:00 PM EST Office Visit Hematology/Oncology at [address] [address] Lee Ann Jay MD [facility] DR [place] [address] Leti Anderson APRN [facility] [place] [address] documented as of this encounter Visit Diagnoses Not on filedocumented in this encounter Care Teams Director Compensation Relationship Specialty Start Date End Date Julia Chatterjee MD [facility] [address] [facility] [address] [place] [address] PCP - General 01/31/10 documented as of this encounter
--- OUTSIDE RECORDS SUMMARY | 2024-04-17 01:26 | XMS_ITS | Encounter Summary ---
Author Organization [facility] [place] [address] Care Team Providers Care Door Frame Assembler Machine Name Role Phone Julia Chatterjee MD Primary Care Provider [phone] Encounter Details Date Type Department Care Team (Late st Contact Info) Description 08/23/2017 Orders Only Hematology/Oncology at [address] [address] Mera Cintron RN Neutropenia, unspecified type; Large [...] Scheduled View Only Radiation Oncology at [address] [address] 04/20/2024 12:45 PM EST Scheduled View Only Radiation Oncology at [address] [address] 04/21/2024 10:45 AM EST Scheduled View Only Radiation Oncology at [address] [address] 04/21/2024 11:00 AM EST Office Visit Radiation Oncology at [address] [address] Radha Casiano MD [facility] [place] [address] 04/22/2024 3:00 PM EST Scheduled View Only Radiation Oncology at [address] [address] 04/23/2024 3:00 PM EST Scheduled View Only Radiation Oncology at [address] [address] 04/24/2024 3:00 PM EST Scheduled View Only Radiation Oncology at [address] [address] 04/27/2024 11:15 AM EST Scheduled View Only Radiation Oncology at [address] [address] 04/28/2024 11:30 AM EST Scheduled View Only Radiation Oncology at [address] [address] 04/28/2024 12:00 PM EST Office Visit Radiation Oncology at [address] [address] Radha Casiano MD [facility] [place] [address] 04/28/2024 2:00 PM EST Office Visit Cardiology at [address] [place] [address] Letty Montejo APRN [facility] [place] [address] 04/29/2024 11:15 AM EST Scheduled View Only Radiation Oncology at [address] [address] 04/30/2024 11:30 AM EST Scheduled View Only Radiation Oncology at [address] [address] 05/01/2024 11:15 AM EST Scheduled View Only Radiation Oncology at [address] [address] 05/04/2024 10:45 AM EST Scheduled View Only Radiation Oncology at [address] [address] 05/05/2024 1:00 PM EST Scheduled View Only Radiation Oncology at [address] [address] 05/05/2024 1:15 PM EST Office Visit Radiation Oncology at [address] [address] Radha Casiano MD [facility] [place] [address] 05/06/2024 1:00 PM EST Scheduled View Only Radiation Oncology at [address] [address] 05/07/2024 1:00 PM EST Scheduled View Only Radiation Oncology at [address] [address] 05/08/2024 1:00 PM EST Scheduled View Only Radiation Oncology at [address] [address] 05/11/2024 11:30 AM EST Scheduled View Only Radiation Oncology at [address] [address] 01/13/2025 1:00 PM EST Office Visit Hematology/Oncology at [address] [address] Lee Ann Jay MD [facility] HEMATOLOGY [place] [address] Leti Anderson APRN [facility] HEMATOLOGY [place] [address] documented as of this encounter Visit Diagnoses Diagnosis Neutropenia, unspecified type 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
--- OUTSIDE RECORDS SUMMARY | 2024-04-17 01:26 | XMS_ITS | Encounter Summary ---
Author Organization [facility] [place] [place] [address] Care Team Providers Care Meal Grinder Tender Name Role Phone uJlia Chatterjee MD Primary Care Provider [phone] Encounter Details Date Type Department Care Team (Late st Contact Info) Description 08/26/2019 8:00 AM EDT Office Visit Hematology/Oncology at [address] [address] Radha Cooper, SAMPLE TAKER OPERATOR Large granular lymphocyte disorder Social History Tobacco [...] this encounter Progress Notes * Radha Cooper, SAMPLE TAKER OPERATOR - 08/26/2019 8:00 AM EDT Subjective: Patient ID: Leti Parry is a 68 y.o. female here for f/u of LGL/chronic neutropenia Patient Active Problem List Diagnosis ??? Ulcerative colitis Diagnosed around 2011. 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 Should ??cytopenias persist , it may [...] no other infections. She was living in [facility] working on her son's home. 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 She would like. to avoid therapy if [...] Scheduled View Only Radiation Oncology at [address] [address] 04/20/2024 12:45 PM EST Scheduled View Only Radiation Oncology at [address] [address] 04/21/2024 10:45 AM EST Scheduled View Only Radiation Oncology at [address] [address] 04/21/2024 11:00 AM EST Office Visit Radiation Oncology at [address] [address] Radha Casiano MD [facility] [place] [address] 04/22/2024 3:00 PM EST Scheduled View Only Radiation Oncology at [address] [address] 04/23/2024 3:00 PM EST Scheduled View Only Radiation Oncology at [address] [address] 04/24/2024 3:00 PM EST Scheduled View Only Radiation Oncology at [address] [address] 04/27/2024 11:15 AM EST Scheduled View Only Radiation Oncology at [address] [address] 04/28/2024 11:30 AM EST Scheduled View Only Radiation Oncology at [address] [address] 04/28/2024 12:00 PM EST Office Visit Radiation Oncology at [address] [address] Radha Casiano MD [facility] [place] [address] 04/28/2024 2:00 PM EST Office Visit Cardiology at [address] [address] Letty Montejo APRN [facility] [place] [address] 04/29/2024 11:15 AM EST Scheduled View Only Radiation Oncology at [address] [address] 04/30/2024 11:30 AM EST Scheduled View Only Radiation Oncology at [address] [address] 05/01/2024 11:15 AM EST Scheduled View Only Radiation Oncology at [address] [address] 05/04/2024 10:45 AM EST Scheduled View Only Radiation Oncology at [address] [address] 05/05/2024 1:00 PM EST Scheduled View Only Radiation Oncology at [address] [address] 05/05/2024 1:15 PM EST Office Visit Radiation Oncology at [address] [address] Radha Casiano MD [facility] [place] [address] 05/06/2024 1:00 PM EST Scheduled View Only Radiation Oncology at [address] [address] 05/07/2024 1:00 PM EST Scheduled View Only Radiation Oncology at [address] [address] 05/08/2024 1:00 PM EST Scheduled View Only Radiation Oncology at [address] [address] 05/11/2024 11:30 AM EST Scheduled View Only Radiation Oncology at [address] [address] 01/13/2025 1:00 PM EST Office Visit Hematology/Oncology at [address] [address] Lee Ann Jay MD [facility] HEMATOLOGY [place] [address] Leti Anderson APRN [facility] HEMATOLOGY AND [place] [address] documented as of this encounter Procedures Procedure [...] 4.96 Hemoglobin 12.4 Hematocrit 39.0 Platelet 238 Neutrophil Absolute (ANC) - Automated 3.32 Blood specimen (specimen) 08/25/2019 Radha Cooper APRN HEMATOLOGY ORDERABLE S documented in this encounter Visit Diagnoses Diagnosis 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
--- OUTSIDE RECORDS SUMMARY | 2024-04-17 01:26 | XMS_ITS | Encounter Summary ---
Author Organization [facility] [place] [address] Care Team Providers Care Air Conditioning Service Technician Name Role Phone Julia Chatterjee MD Primary Care Provider [phone] Reason for Visit * Reason Onset Date Comments Fever 08/25/2019 Encounter Details Date Type Department Care Team (Late st Contact Info) Description 08/25/2019 Telephone Hematology/Oncology at [address] [address] Vicky Madrigal RN Fever Social [...] this morning and checked her temp which uco889.3F. She reports she was discharged from [facility] last Wednesday 08/16 where she was treated for bacteremia/sepsis and colitis. She is currently on oral ABT Cipro and last day was today. She also reports she feels dehydrated. She was advised to go to [facility] ED for evaluation. Report called to [facility] ED rosana cagle onocolgy team updated via this note. documented in this encounter Plan of Treatment Upcoming Encounters Date Type Department Care Team (Late st Contact Info) Description 04/17/2024 2:30 PM EST Scheduled View Only Radiation Oncology at [address] [address] 04/20/2024 12:45 PM EST Scheduled View Only Radiation Oncology at [address] [address] 04/21/2024 10:45 AM EST Scheduled View Only Radiation Oncology at [address] [address] 04/21/2024 11:00 AM EST Office Visit Radiation Oncology at [address] [address] Radha Casiano MD [facility] [place] [address] 04/22/2024 3:00 PM EST Scheduled View Only Radiation Oncology at [address] [address] 04/23/2024 3:00 PM EST Scheduled View Only Radiation Oncology at [address] [address] 04/24/2024 3:00 PM EST Scheduled View Only Radiation Oncology at [address] [address] 04/27/2024 11:15 AM EST Scheduled View Only Radiation Oncology at [address] [address] 04/28/2024 11:30 AM EST Scheduled View Only Radiation Oncology at [address] [address] 04/28/2024 12:00 PM EST Office Visit Radiation Oncology at [address] [address] Radha Casiano MD [facility] [place] [place] [address] 04/28/2024 2:00 PM EST Office Visit Cardiology at [address] [place] [address] Letty Montejo APRN [facility] [place] [address] 04/29/2024 11:15 AM EST Scheduled View Only Radiation Oncology at [address] [address] 04/30/2024 11:30 AM EST Scheduled View Only Radiation Oncology at [address] [address] 05/01/2024 11:15 AM EST Scheduled View Only Radiation Oncology at [address] [address] 05/04/2024 10:45 AM EST Scheduled View Only Radiation Oncology at [address] [address] 05/05/2024 1:00 PM EST Scheduled View Only Radiation Oncology at [address] [address] 05/05/2024 1:15 PM EST Office Visit Radiation Oncology at [address] [address] Radha Casiano MD [facility] [place] [address] 05/06/2024 1:00 PM EST Scheduled View Only Radiation Oncology at [address] [address] 05/07/2024 1:00 PM EST Scheduled View Only Radiation Oncology at [address] [address] 05/08/2024 1:00 PM EST Scheduled View Only Radiation Oncology at [address] [address] 05/11/2024 11:30 AM EST Scheduled View Only Radiation Oncology at [address] [address] 01/13/2025 1:00 PM EST Office Visit Hematology/Oncology at [address] [address] Lee Ann Jay MD [facility] DR [place] [address] Leti Anderson APRN [facility] [place] [address] documented as of this encounter Visit Diagnoses Not on filedocumented in this encounter Care Teams Air Conditioning Service Technician Relationship Specialty Start Date End Date Julia Chatterjee MD [facility] [address] [place] [address] PCP - General 01/31/10 documented as of this encounter
--- OUTSIDE RECORDS SUMMARY | 2024-04-17 01:26 | XMS_ITS | Encounter Summary ---
Author Organization [facility] [place] [address] Care Team Providers Care Harness Builder Name Role Phone Julia Chatterjee MD Primary Care Provider [phone] Reason for Visit * Consultation (Urgent) - Specialty Diagnoses / Procedures Referred By Kimani leo Referred To Contact Gastroenterology Diagnoses UC Procedures consult Hesham Dobson MD [facility] DR GASTROENTEROLOGY DEPT [place], [place] [id number] [place] [address] [place] [address] Referral ID Status Reason Start Date Expiration Date V isits Requested Visits Authorized [id number] 08/13/2019 08/12/2020 1 1 Encounter Details Date Type Department Care Team (Latest Contact Info) Description 08/18/2019 11:00 AM EDT TH Visit (TeleHealth) [place] [phone] Yola Jenkins MD [facility] DR [place] [address] Other ulcerative colitis with complication Social History [...] the records from a recent hospitalization at [facility]. Ms. Parry was diagnosed with mild left-sided ulcerative colitis at the time of the screening colonoscopy in [address] Stu Nelson. He followed up with her in the office at the time. A short trial of Rowasa enemas did not make a difference, and she followed up with a local linoleum layer helper using dietary supplements to maintain remission. She reports that her typical bowel habit tends somewhat towards constipation. She usually moves her bowels every day or 2 and occasionally will seesmall amounts of blood on toilet tissue. She has been taking magnesium for constipation for years. 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 [facility], had a CT scan that [...] of 12,200, and after consultation with Dr. aJy's office, she received an injection of Neupogen [...] flow ) are being pursued at the [facility]. Should ??cytopenias persist , it may be [...] past surgical history that includes Colonoscopy, Biopsy (26992) (07/05/2011); Colonoscopy, Remv Lesn, Snare (15088) (07/05/2011); Bone Marrow Aspiration W/Bx Through Same Incision/Site ([id number]) (Right, 01/08/2017); and Bone Marrow Bx, Needle/Trocar ([id number]) (Right, 01/08/2017). Family History: No family history of colon cancer, inflammatory bowel disease, celiac diease, nor liver disease. Social History: reports that she has never smoked. She has never used smokeless tobacco. She reports current alcohol use of about six standard drinks of alcohol per week. She reports that she does not use drugs. She lives with her in [facility]. 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 I will obtain the records from [facility] to help complete the picture, but [...] future. Recommendations: # Obtain discharge summary from [facility] # Change prednisone from 60 mg/day [...] telemedicine visit. The patient was located in [place] at the time of their visit. Yola JENKINS MD [facility] [place] [address] documented in this encounter Plan of Treatment Upcoming Encounters Date Type Department Care Team (Late st Contact Info) Description 04/17/2024 2:30 PM EST Scheduled View Only Radiation Oncology at [address] [address] 04/20/2024 12:45 PM EST Scheduled View Only Radiation Oncology at [address] [address] 04/21/2024 10:45 AM EST Scheduled View Only Radiation Oncology at [address] [address] 04/21/2024 11:00 AM EST Office Visit Radiation Oncology at [address] [address] Radha Casiano MD [facility] [place] [address] 04/22/2024 3:00 PM EST Scheduled View Only Radiation Oncology at [address] [address] 04/23/2024 3:00 PM EST Scheduled View Only Radiation Oncology at [address] [address] 04/24/2024 3:00 PM EST Scheduled View Only Radiation Oncology at [address] [address] 04/27/2024 11:15 AM EST Scheduled View Only Radiation Oncology at [address] [address] 04/28/2024 11:30 AM EST Scheduled View Only Radiation Oncology at [address] [address] 04/28/2024 12:00 PM EST Office Visit Radiation Oncology at [address] [address] Radha Casiano MD [facility] DR RADIATION [place] [address] 04/28/2024 2:00 PM EST Office Visit Cardiology at [address] [address] Letty Montejo APRN [facility] [place] [address] 04/29/2024 11:15 AM EST Scheduled View Only Radiation Oncology at [address] [address] 04/30/2024 11:30 AM EST Scheduled View Only Radiation Oncology at [address] [address] 05/01/2024 11:15 AM EST Scheduled View Only Radiation Oncology at [address] [address] 05/04/2024 10:45 AM EST Scheduled View Only Radiation Oncology at [address] [address] 05/05/2024 1:00 PM EST Scheduled View Only Radiation Oncology at [address] [address] 05/05/2024 1:15 PM EST Office Visit Radiation Oncology at [address] [address] Radha Casiano MD [facility] DR RADIATION [place] [address] 05/06/2024 1:00 PM EST Scheduled View Only Radiation Oncology at [address] [address] 05/07/2024 1:00 PM EST Scheduled View Only Radiation Oncology at [address] [address] 05/08/2024 1:00 PM EST Scheduled View Only Radiation Oncology at [address] [address] 05/11/2024 11:30 AM EST Scheduled View Only Radiation Oncology at [address] [address] 01/13/2025 1:00 PM EST Office Visit Hematology/Oncology at [address] [address] Lee Ann Jay MD [facility] HEMATOLOGY [place] [address] Leti Anderson APRN [facility] HEMATOLOGY [place] [address] documented as of this encounter Visit Diagnoses Diagnosis Other ulcerative colitis with complication documented in this encounter Care Teams Harness Builder Relationship Specialty Start Date End Date Julia Chtaterjee MD [address] [place] [address] PCP - General 01/31/10 documented as of this encounter
--- OUTSIDE RECORDS SUMMARY | 2024-04-17 01:26 | XMS_ITS | Encounter Summary ---
Author Organization [facility] Address [facility] [place] [address] Care Team Providers Care Cellophane Worker Name Role Phone Julia Chatterjee MD Primary Care Provider [phone] Encounter Details Date Type Department Care Team (Late st Contact Info) Description 01/23/2017 12:30 PM EST Office Visit Hematology/Oncology at [address] [address] Lee Ann Rodriguez MD [facility] DR [place] [address] Large granular lymphocyte disorder; Neutropenia, unspecified type [...] Ulcerative colitis Diagnosed around 2011. Worked with appliance tester with resolution of symptoms food based supplements [...] flow ) are being pursued at the [place] [facility]. Should ??cytopenias persist , it may [...] 13.4, plt 162 Neutrophils 12.9 Lymphocytes 66.5 [place] 19.3 Eosinophils 0.4 Basophils 0.0 Immature grans [...] performed by Lee Ann Rodriguez MD at [facility] OSC ??? PRO BONE MARROW BX, NEEDLE/TROCAR Right 01/08/2017 ([facility] MSURG) BONE MARROW,BIOPSY (WRVU 1.37) performed by Lee Ann Rodriguez MD at [facility] OSC ??? PRO COLONOSCOPY, BIOPSY 07/05/2011 COLONOSCOPY FLEXIBLE, WITH BX performed by MARY CASTRO at [facility] ENDOSCOPY ??? PRO COLONOSCOPY, REMV LESN, SNARE 07/05/2011 COLONOSCOPY, POLYPECTOMY, REMOVAL LESION BY SNARE performed by MARY CASTRO at [facility] ENDOSCOPY Medications; Current Outpatient Prescriptions on [...] infusion 1,000 mL Intravenous Continuous Radha Cooper, MECHANICAL ADJUSTER Allergies: Allergies Allergen Reactions ??? Benzalkonium Chloride Family History: Father- 87, healthy Mother- 83, healthy 4 brothers and 2 sisters all healthy Social History: Lives in [facility]. . 1 son 38 years old- healthy. 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 [...] flow ) are being pursued at the [facility]. Should ??cytopenias persist , it [...] methotrexate. She has been working with a appliance tester who started her on selenium and zinc. Counts are a bit higher so we will see. School Business Manager has been helping her with bowel issues. [...] LGL, no longer necessary. ?? US at [facility] - listed above ?? BMBx - [...] on the BMBX. I placed order at [facility] for blood draw and called pt to come to [facility] in the next 2-3 weeks to 3K [...] This note was written or modified using Starvine voice recognition software. The final note was [...] Scheduled View Only Radiation Oncology at [address] [address] 04/20/2024 12:45 PM EST Scheduled View Only Radiation Oncology at [address] [address] 04/21/2024 10:45 AM EST Scheduled View Only Radiation Oncology at [address] [address] 04/21/2024 11:00 AM EST Office Visit Radiation Oncology at [address] [address] Radha Casiano MD [facility] [place] [address] 04/22/2024 3:00 PM EST Scheduled View Only Radiation Oncology at [address] [address] 04/23/2024 3:00 PM EST Scheduled View Only Radiation Oncology at [address] [address] 04/24/2024 3:00 PM EST Scheduled View Only Radiation Oncology at [address] [address] 04/27/2024 11:15 AM EST Scheduled View Only Radiation Oncology at [address] [address] 04/28/2024 11:30 AM EST Scheduled View Only Radiation Oncology at [address] [address] 04/28/2024 12:00 PM EST Office Visit Radiation Oncology at [address] [address] Radha Casiano MD [facility] [place] [address] 04/28/2024 2:00 PM EST Office Visit Cardiology at [address] [place] [phone] Letty Montejo APRN [facility] [place] [address] 04/29/2024 11:15 AM EST Scheduled View Only Radiation Oncology at [address] [address] 04/30/2024 11:30 AM EST Scheduled View Only Radiation Oncology at [address] [address] 05/01/2024 11:15 AM EST Scheduled View Only Radiation Oncology at [address] [address] 05/04/2024 10:45 AM EST Scheduled View Only Radiation Oncology at [address] [address] 05/05/2024 1:00 PM EST Scheduled View Only Radiation Oncology at [address] [address] 05/05/2024 1:15 PM EST Office Visit Radiation Oncology at [address] [address] Radha Casiano MD [facility] [place] [address] 05/06/2024 1:00 PM EST Scheduled View Only Radiation Oncology at [address] [address] 05/07/2024 1:00 PM EST Scheduled View Only Radiation Oncology at [address] [address] 05/08/2024 1:00 PM EST Scheduled View Only Radiation Oncology at [address] [address] 05/11/2024 11:30 AM EST Scheduled View Only Radiation Oncology at [address] [address] 01/13/2025 1:00 PM EST Office Visit Hematology/Oncology at [address] [address] Lee Ann Rodriguez MD [facility] [place] [address] Leti Anderson APRN [facility] [place] [address] documented as of this encounter Results * Miscellaneous Lab request (02/28/2017 10:01 AM EST) Label Request received in lab. [facility] Blood specimen (specimen) 02/28/2017 10:01 AM EST 02/28/2017 10:13 AM EST Narrative Resulting Agency Comment Spec In Lab Lee Ann Rodriguez MD LAB SEND OUT ORD ERABLES [facility] [place] [address] * Miscellaneous Lab request (02/28/2017 10:01 AM EST) Label Request received in lab. 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
--- OUTSIDE RECORDS SUMMARY | 2024-04-17 01:26 | XMS_ITS | Encounter Summary ---
Author Organization [facility] [place] [address] Care Team Providers Care Lay Ups Assembler Name Role Phone Julia Chatterjee MD Primary Care Provider [phone] Reason for Visit * Reason Onset Date Comments Follow-up 08/12/2019 Pt in hospital Encounter Details Date Type Department Care Team (Late st Contact Info) Description 08/12/2019 Telephone Hematology/Oncology at [address] [address] Vicky Madrigal, RN Follow-up (Pt [...] Tamir regarding Leti Parry. She went to [facility] with fevers, they are treating her for colitis and she is getting ABT. She will have a sigmoidoscopy tomorrow. Will update provider via this note. ----- Message from Ye Mckenzie sent at 08/12/2019 2:47 PM EDT ----- Regarding: Pt wanted to give update TamirLeti's called and said that she wanted to give an update. She is currently up at [facility]. Her WBC is 2.8 and they think she has colitis and are giving her antibiotics. He said that you can call him with any questions: [phone]. Ye Ann documented in this encounter Plan of Treatment Upcoming Encounters Date Type Department Care Team (Late st Contact Info) Description 04/17/2024 2:30 PM EST Scheduled View Only Radiation Oncology at [address] [address] 04/20/2024 12:45 PM EST Scheduled View Only Radiation Oncology at [address] [address] 04/21/2024 10:45 AM EST Scheduled View Only Radiation Oncology at [address] [address] 04/21/2024 11:00 AM EST Office Visit Radiation Oncology at [address] [address] Radha Casiano MD [facility] [place] [address] 04/22/2024 3:00 PM EST Scheduled View Only Radiation Oncology at [address] [address] 04/23/2024 3:00 PM EST Scheduled View Only Radiation Oncology at [address] [address] 04/24/2024 3:00 PM EST Scheduled View Only Radiation Oncology at [address] [address] 04/27/2024 11:15 AM EST Scheduled View Only Radiation Oncology at [address] [address] 04/28/2024 11:30 AM EST Scheduled View Only Radiation Oncology at [address] [address] 04/28/2024 12:00 PM EST Office Visit Radiation Oncology at [address] [address] Radha Casiano MD [facility] [place] [address] 04/28/2024 2:00 PM EST Office Visit Cardiology at [address] [place] [phone] Letty Montejo APRN [facility] [place] [address] 04/29/2024 11:15 AM EST Scheduled View Only Radiation Oncology at [address] [address] 04/30/2024 11:30 AM EST Scheduled View Only Radiation Oncology at [address] [address] 05/01/2024 11:15 AM EST Scheduled View Only Radiation Oncology at [address] [address] 05/04/2024 10:45 AM EST Scheduled View Only Radiation Oncology at [address] [address] 05/05/2024 1:00 PM EST Scheduled View Only Radiation Oncology at [address] [address] 05/05/2024 1:15 PM EST Office Visit Radiation Oncology at [address] [address] Radha Casiano MD [facility] [place] [address] 05/06/2024 1:00 PM EST Scheduled View Only Radiation Oncology at [address] [address] 05/07/2024 1:00 PM EST Scheduled View Only Radiation Oncology at [address] [address] 05/08/2024 1:00 PM EST Scheduled View Only Radiation Oncology at [address] [address] 05/11/2024 11:30 AM EST Scheduled View Only Radiation Oncology at [address] [address] 01/13/2025 1:00 PM EST Office Visit Hematology/Oncology at [address] [address] Lee Ann Jay MD [facility] DR [place] [address] Leti Anderson APRN [facility] DR [place] [address] documented as of this encounter Visit Diagnoses Not on filedocumented in this encounter Care Teams Lay Ups Assembler Relationship Specialty Start Date End Date Julia Chatterjee MD [facility] [address] [address] PCP - General 01/31/10 documented as of this encounter
--- OUTSIDE RECORDS SUMMARY | 2024-04-17 01:26 | XMS_ITS | Encounter Summary ---
Author Organization [facility] [place] [address] Care Team Providers Care Toll Relief Operator Name Role Phone Julia Chatterjee MD Primary Care Provider [phone] Reason for Visit * Reason Onset Date Comments Labs Only 10/17/2017 lab criticals Encounter Details Date Type Department Care Team (Late Contact Info) Description 10/17/2017 Telephone Hematology Oncology at [address] [address] Crystal Dumas RN Labs Only [...] 9:53 AM EDT Criticals called from [facility] laboratory, results communicated to Dr. Jay and entered in externalresults documented in this encounter Plan of Treatment Upcoming Encounters Date Type Department Care Team (Late Contact Info) Description 04/17/2024 2:30 PM EST Scheduled View Only Radiation Oncology at [address] [address] 04/20/2024 12:45 PM EST Scheduled View Only Radiation Oncology at [address] [address] 04/21/2024 10:45 AM EST Scheduled View Only Radiation Oncology at [address] [address] 04/21/2024 11:00 AM EST Office Visit Radiation Oncology at [address] [address] Radha Casiano MD [facility] [place] [address] 04/22/2024 3:00 PM EST Scheduled View Only Radiation Oncology at [address] [address] 04/23/2024 3:00 PM EST Scheduled View Only Radiation Oncology at [address] [address] 04/24/2024 3:00 PM EST Scheduled View Only Radiation Oncology at [address] [address] 04/27/2024 11:15 AM EST Scheduled View Only Radiation Oncology at [address] [address] 04/28/2024 11:30 AM EST Scheduled View Only Radiation Oncology at [address] [address] 04/28/2024 12:00 PM EST Office Visit Radiation Oncology at [address] [address] Radha Casiano MD [facility] [place] [address] 04/28/2024 2:00 PM EST Office Visit Cardiology at [address] [phone] Letty Montejo, RELEASE OF INFORMATION SPECIALIST [facility] [place] [address] 04/29/2024 11:15 AM EST Scheduled View Only Radiation Oncology at [address] [address] 04/30/2024 11:30 AM EST Scheduled View Only Radiation Oncology at [address] [address] 05/01/2024 11:15 AM EST Scheduled View Only Radiation Oncology at [address] [address] 05/04/2024 10:45 AM EST Scheduled View Only Radiation Oncology at [address] [address] 05/05/2024 1:00 PM EST Scheduled View Only Radiation Oncology at [address] [address] 05/05/2024 1:15 PM EST Office Visit Radiation Oncology at [address] [address] Radha Casiano MD [facility] [place] [address] 05/06/2024 1:00 PM EST Scheduled View Only Radiation Oncology at [address] [address] 05/07/2024 1:00 PM EST Scheduled View Only Radiation Oncology at [address] [address] 05/08/2024 1:00 PM EST Scheduled View Only Radiation Oncology at [address] [address] 05/11/2024 11:30 AM EST Scheduled View Only Radiation Oncology at [address] [address] 01/13/2025 1:00 PM EST Office Visit Hematology/Oncology at [address] [address] Lee Ann Jay MD [facility] DR HEMATOLOGY [place] [address] Leti Anderson APRN [facility] HEMATOLOG[place] [address] documented as of this encounter Procedures Procedure Name Priority Date/Time Associated Diagnosis Comments CBC (WITH DIFF) Routine 10/17/2017 documented in this encounter Results * CBC (with Diff) (10/17/2017) White Blood Cell 1.92 Hemoglobin 13.4 Hematocrit 41.2 Platelet 195 Neutrophil Absolute (ANC) - Automated 0.25 Blood specimen (specimen) 10/17/2017 Historical Provider HEMATOLOGY ORDERA BLES documented in this encounter Visit Diagnoses Not on filedocumented in this encounter Care Teams Toll Relief Operator Relationship Specialty Start Date End Date Julia Chatterjee MD [facility] [address] [place] [address] PCP - General 01/31/10 documented as of this encounter
--- OUTSIDE RECORDS SUMMARY | 2024-04-17 01:26 | XMS_ITS | Encounter Summary ---
Author Organization [facility] [place] [address] Care Team Providers Care Car Shagger Name Role Phone Julia Chatterjee MD Primary Care Provider [phone] Reason for Visit * Reason Onset Date Comments Abnormal Lab 10/17/2017 Critical WBC Encounter Details Date Type Department Care Team (Late Contact Info) Description 10/17/2017 Telephone Hematology/Oncology at [address] [address] Heidi Fraser RN Abnormal Lab [...] Critical WBC 1.92 called from Izzy at [facility] lab. documented in this encounter Plan of Treatment Upcoming Encounters Date Type Department Care Team (Late Contact Info) Description 04/17/2024 2:30 PM EST Scheduled View Only Radiation Oncology at [address] [phone] 04/20/2024 12:45 PM EST Scheduled View Only Radiation Oncology at [address] [address] 04/21/2024 10:45 AM EST Scheduled View Only Radiation Oncology at [address] [address] 04/21/2024 11:00 AM EST Office Visit Radiation Oncology at [address] [address] Radha Casinao MD [facility] RADIATION [place] [address] 04/22/2024 3:00 PM EST Scheduled View Only Radiation Oncology at [address] [address] 04/23/2024 3:00 PM EST Scheduled View Only Radiation Oncology at [address] [address] 04/24/2024 3:00 PM EST Scheduled View Only Radiation Oncology at [address] [address] 04/27/2024 11:15 AM EST Scheduled View Only Radiation Oncology at [address] [address] 04/28/2024 11:30 AM EST Scheduled View Only Radiation Oncology at [address] [address] 04/28/2024 12:00 PM EST Office Visit Radiation Oncology at [address] [address] Radha Casiano MD [facility] [place] [address] 04/28/2024 2:00 PM EST Office Visit Cardiology at [address] [place] [address] Letty Montejo, SUPERVISOR SCRAP PREPARATION [facility] [place] [address] 04/29/2024 11:15 AM EST Scheduled View Only Radiation Oncology at [address] [address] 04/30/2024 11:30 AM EST Scheduled View Only Radiation Oncology at [address] [address] 05/01/2024 11:15 AM EST Scheduled View Only Radiation Oncology at [address] [address] 05/04/2024 10:45 AM EST Scheduled View Only Radiation Oncology at [address] [address] 05/05/2024 1:00 PM EST Scheduled View Only Radiation Oncology at [address] [address] 05/05/2024 1:15 PM EST Office Visit Radiation Oncology at [address] [address] Radha Casiano MD [facility] [place] [address] 05/06/2024 1:00 PM EST Scheduled View Only Radiation Oncology at [address] [address] 05/07/2024 1:00 PM EST Scheduled View Only Radiation Oncology at [address] [address] 05/08/2024 1:00 PM EST Scheduled View Only Radiation Oncology at [address] [address] 05/11/2024 11:30 AM EST Scheduled View Only Radiation Oncology at [address] [address] 01/13/2025 1:00 PM EST Office Visit Hematology/Oncology at [address] [address] Lee Ann Jay MD [facility] DR HEMATOLOGY [place] [address] Leti Anderson APRN [facility] HEMATOLOGY [place] [address] documented as of this encounter Visit Diagnoses Not on filedocumented in this encounter Care Teams Car Shagger Relationship Specialty Start Date End Date Julia Chatterjee MD [facility] FELIZ [facility] [address] [place] [address] PCP - General 01/31/10 documented as of this encounter
--- OUTSIDE RECORDS SUMMARY | 2024-04-17 01:26 | XMS_ITS | Encounter Summary ---
Author Organization [facility] Address [facility] [place] [address] Care Team Providers Care Locker Room Attendant Name Role Phone Julia Chatterjee MD Primary Care Provider [phone] Encounter Details Date Type Department Care Team (Late st Contact Info) Description 08/27/2018 9:00 AM EDT Office Visit Hematology/Oncology at [address] [address] Lee Ann Jay MD [facility] DR HEMATOLOGY [place] [address] Radha Cooper, JAYLEN Neutropenia, unspecified type Social History Tobacco Use [...] this encounter Progress Notes * Radha Cooper, SEAM CHECKER - 08/27/2018 9:00 AM EDT Subjective: Patient ID: Leti Parry is a 67 y.o. 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 Ulcerative colitis Diagnosed around 2011. 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 Should ??cytopenias persist , it may [...] Scheduled View Only Radiation Oncology at [address] [address] 04/20/2024 12:45 PM EST Scheduled View Only Radiation Oncology at [address] [address] 04/21/2024 10:45 AM EST Scheduled View Only Radiation Oncology at [address] [address] 04/21/2024 11:00 AM EST Office Visit Radiation Oncology at [address] [address] Radha Casiano MD [facility] [place] [address] 04/22/2024 3:00 PM EST Scheduled View Only Radiation Oncology at [address] [address] 04/23/2024 3:00 PM EST Scheduled View Only Radiation Oncology at [address] [address] 04/24/2024 3:00 PM EST Scheduled View Only Radiation Oncology at [address] [address] 04/27/2024 11:15 AM EST Scheduled View Only Radiation Oncology at [address] [address] 04/28/2024 11:30 AM EST Scheduled View Only Radiation Oncology at [address] [address] 04/28/2024 12:00 PM EST Office Visit Radiation Oncology at [address] [address] Radha Casiano MD [facility] [place] [address] 04/28/2024 2:00 PM EST Office Visit Cardiology at [address] [place] [phone] Letty Montejo APRN [facility] [place] [place] [address] 04/29/2024 11:15 AM EST Scheduled View Only Radiation Oncology at [address] [address] 04/30/2024 11:30 AM EST Scheduled View Only Radiation Oncology at [address] [address] 05/01/2024 11:15 AM EST Scheduled View Only Radiation Oncology at [address] [address] 05/04/2024 10:45 AM EST Scheduled View Only Radiation Oncology at [address] [address] 05/05/2024 1:00 PM EST Scheduled View Only Radiation Oncology at [address] [address] 05/05/2024 1:15 PM EST Office Visit Radiation Oncology at [address] [address] Radha Casiano MD [facility] [place] [address] 05/06/2024 1:00 PM EST Scheduled View Only Radiation Oncology at [address] [address] 05/07/2024 1:00 PM EST Scheduled View Only Radiation Oncology at [address] [address] 05/08/2024 1:00 PM EST Scheduled View Only Radiation Oncology at [address] [address] 05/11/2024 11:30 AM EST Scheduled View Only Radiation Oncology at [address] [address] 01/13/2025 1:00 PM EST Office Visit Hematology/Oncology at [address] [address] Lee Ann Jay MD [facility] [place] [address] Leti Anderson APRN [facility] [place] [address] documented as of this encounter Procedures Procedure Name Priority Date/Time Associated Diagnosis Comments CBC (WITH DIFF) Routine 08/07/2018 documented in this encounter Results * CBC (with Diff) (08/07/2018) White Blood Cell 1.91 Hemoglobin 13.5 Hematocrit 42.3 Platelet 196 Neutrophil Absolute (ANC) - Automated 0.27 Blood specimen (specimen) 08/07/2018 Radha Cooper SEAM CHECKER HEMATOLOGY ORDERABLE S documented in this encounter Visit Diagnoses Diagnosis Neutropenia, unspecified type documented in this encounter Care Teams Locker Room Attendant Relationship Specialty Start Date End Date Julia Chatterjee MD [address] [place] [address] PCP - General 01/31/10 documented as of this encounter
--- OUTSIDE RECORDS SUMMARY | 2024-04-17 01:26 | XMS_ITS | Encounter Summary ---
Author Organization [facility] Address [facility] [place] [address] Care Team Providers Care Behavior Interventionist Name Role Phone Julia Chatterjee MD Primary Care Provider [phone] Encounter Details Date Type Department Care Team (Late st Contact Info) Description 08/31/2019 Telephone [place] [address] Yola Oliveros MD [facility] [place] [address] Social History Tobacco Use Types Packs/Day Years [...] and so was seen again in the [facility] emergency department. Per Dr. Chatterjee, a [...] EST Scheduled View Only Radiation Oncology at [address] [address] 04/20/2024 12:45 PM EST Scheduled View Only Radiation Oncology at [address] [address] 04/21/2024 10:45 AM EST Scheduled View Only Radiation Oncology at [address] [address] 04/21/2024 11:00 AM EST Office Visit Radiation Oncology at [address] [address] Radha Casiano MD [facility] [place] [address] 04/22/2024 3:00 PM EST Scheduled View Only Radiation Oncology at [address] [address] 04/23/2024 3:00 PM EST Scheduled View Only Radiation Oncology at [address] [address] 04/24/2024 3:00 PM EST Scheduled View Only Radiation Oncology at [address] [address] 04/27/2024 11:15 AM EST Scheduled View Only Radiation Oncology at [address] [address] 04/28/2024 11:30 AM EST Scheduled View Only Radiation Oncology at [address] [address] 04/28/2024 12:00 PM EST Office Visit Radiation Oncology at [address] [address] Radha Casiano MD [facility] [place] [address] 04/28/2024 2:00 PM EST Office Visit Cardiology at [address] [address] Letty Montejo APRN [facility] [place] [address] 04/29/2024 11:15 AM EST Scheduled View Only Radiation Oncology at [address] [address] 04/30/2024 11:30 AM EST Scheduled View Only Radiation Oncology at [address] [address] 05/01/2024 11:15 AM EST Scheduled View Only Radiation Oncology at [address] [address] 05/04/2024 10:45 AM EST Scheduled View Only Radiation Oncology at [address] [address] 05/05/2024 1:00 PM EST Scheduled View Only Radiation Oncology at [address] [address] 05/05/2024 1:15 PM EST Office Visit Radiation Oncology at [address] [address] Radha Casiano MD [facility] [place] [address] 05/06/2024 1:00 PM EST Scheduled View Only Radiation Oncology at [address] [address] 05/07/2024 1:00 PM EST Scheduled View Only Radiation Oncology at [address] [address] 05/08/2024 1:00 PM EST Scheduled View Only Radiation Oncology at [address] [address] 05/11/2024 11:30 AM EST Scheduled View Only Radiation Oncology at [address] [address] 01/13/2025 1:00 PM EST Office Visit Hematology/Oncology at [address] [address] Lee Ann Jay MD [facility] DR HEMATOLOGY [place] [address] Leti Anderson APRN [facility] DR HEMATOLOGY [place] [address] documented as of this encounter Visit Diagnoses Not on filedocumented in this encounter Care Teams Behavior Interventionist Relationship Specialty Start Date End Date Julia Chatterjee MD [facility] [address] [place] [address] PCP - General 01/31/10 documented as of this encounter
--- OUTSIDE RECORDS SUMMARY | 2024-04-17 01:26 | XMS_ITS | Encounter Summary ---
Author Organization [facility] Address [facility] [place] [address] Care Team Providers Care Career And Technology Education Teacher Name Role Phone Julia Chatterjee MD Primary Care Provider [phone] Encounter Details Date Type Department Care Team (Late st Contact Info) Description 03/20/2017 2:30 PM EST Office Visit Hematology/Oncology at [address] [address] Lee Ann Jay MD [facility] [place] [address] Neutropenia, unspecified type Social History Tobacco Use [...] Ulcerative colitis Diagnosed around 2011. 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 Should ??cytopenias persist , it may [...] ASPIRATION W/BX THROUGH SAME INCISION/SITE Right 01/08/2017 ([facility]) BONE MARROW ASP PERFORMED W/BX THRU BX INCISION (WRVU 0.16) performed by Lee Ann Jay MD at [facility] ??? PRO BONE MARROW BX, NEEDLE/TROCAR Right 01/08/2017 ([facility]) BONE MARROW,BIOPSY (WRVU 1.37) performed by Lee Ann Jya MD at [facility] ??? PRO COLONOSCOPY, BIOPSY 07/05/2011 COLONOSCOPY FLEXIBLE, WITH BX performed by MARY CASTRO at [facility] ENDOSCOPY ??? PRO COLONOSCOPY, REMV LESN, SNARE 07/05/2011 COLONOSCOPY, POLYPECTOMY, REMOVAL LESION BY SNARE performed by MARY CASTRO at [facility] ENDOSCOPY Medications; Current Outpatient Prescriptions on [...] low white counts. Social History: Lives in [facility]. . 1 son 38 years old- healthy. 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 [...] are being pursued at the [facility]. Should ??cytopenias persist , it may [...] receptor gene rearrangement detected. Radiology: US at [facility] 11/2016. Liver 14.5 cm. Spleen 8cm. Assessment and Recommendations: 66 y.o. Healthy female who has been referred to us for leukopenia. She has had leukopenia since 2007 with normal hemoglobin and platelet. She has no symptoms- no increased frequency of infections. 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 She has been working with a pole maker who started her on selenium and zinc and about a dozen other supplements. Counts are a bit higher so we will see. Belt Molder has been helping her with bowel issues. These are better w/ diet adjustments. Diet changes have helped her UC and GI symptoms. Of note, she is on multiple naturopathic medications through her material disposition inspector - mostly to help w/ herGI tract. [...] LGL, no longer necessary. ?? US at [facility] - listed above ?? [facility] - listed above I discussed all of the above with the patient and all of her questions were answered. Support and counseling given as appropriate. This note was written or modified using [employer] voice recognition software. The final note was screened for mistakes. Please excuse any remaining errors. ?? documented in this encounter Plan of Treatment Upcoming Encounters Date Type Department Care Team (Late st Contact Info) Description 04/17/2024 2:30 PM EST Scheduled View Only Radiation Oncology at [address] [address] 04/20/2024 12:45 PM EST Scheduled View Only Radiation Oncology at [address] [address] 04/21/2024 10:45 AM EST Scheduled View Only Radiation Oncology at [address] [address] 04/21/2024 11:00 AM EST Office Visit Radiation Oncology at [address] [address] Radha Casiano MD [facility] [place] [address] 04/22/2024 3:00 PM EST Scheduled View Only Radiation Oncology at [address] [address] 04/23/2024 3:00 PM EST Scheduled View Only Radiation Oncology at [address] [address] 04/24/2024 3:00 PM EST Scheduled View Only Radiation Oncology at [address] [address] 04/27/2024 11:15 AM EST Scheduled View Only Radiation Oncology at [address] [address] 04/28/2024 11:30 AM EST Scheduled View Only Radiation Oncology at [address] [address] 04/28/2024 12:00 PM EST Office Visit Radiation Oncology at [address] [address] Radha Casiano MD [facility] RADIATION [place] [address] 04/28/2024 2:00 PM EST Office Visit Cardiology at [address] [place] [address] Letty Montejo APRN [facility] [place] [address] 04/29/2024 11:15 AM EST Scheduled View Only Radiation Oncology at [address] [address] 04/30/2024 11:30 AM EST Scheduled View Only Radiation Oncology at [address] [address] 05/01/2024 11:15 AM EST Scheduled View Only Radiation Oncology at [address] [address] 05/04/2024 10:45 AM EST Scheduled View Only Radiation Oncology at [address] [address] 05/05/2024 1:00 PM EST Scheduled View Only Radiation Oncology at [address] [address] 05/05/2024 1:15 PM EST Office Visit Radiation Oncology at [address] [address] Radha Casiano MD [facility] [place] [address] 05/06/2024 1:00 PM EST Scheduled View Only Radiation Oncology at [address] [address] 05/07/2024 1:00 PM EST Scheduled View Only Radiation Oncology at [address] [address] 05/08/2024 1:00 PM EST Scheduled View Only Radiation Oncology at [address] [address] 05/11/2024 11:30 AM EST Scheduled View Only Radiation Oncology at [address] [address] 01/13/2025 1:00 PM EST Office Visit Hematology/Oncology at [address] [address] Lee Ann Jay MD [facility] [place] [address] Leti Anderson APRN [facility] [place] [address] documented as of this encounter Visit Diagnoses Diagnosis Neutropenia, unspecified type documented in this encounter Care Teams Career And Technology Education Teacher Relationship Specialty Start Date End Date Julia Chatterjee MD [address] [place] [address] PCP - General 01/31/10 documented as of this encounter
--- OUTSIDE RECORDS SUMMARY | 2024-04-17 01:26 | XMS_ITS | Encounter Summary ---
Author Organization [facility] Address [facility] [place] [address] Care Team Providers Care Apparel Embroidery Digitizer Name Role Phone Julia Chatterjee MD Primary Care Provider [phone] Encounter Details Date Type Department Care Team (Late st Contact Info) Description 10/23/2017 1:00 PM EDT Office Visit Hematology/Oncology at [address] [address] [address] [facility] DR HEMATOLOGY [place] [address] Neutropenia, unspecified type Social History Tobacco Use [...] Ulcerative colitis Diagnosed around 2011. 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 Should ??cytopenias persist , it may [...] 2016. Busy swimming and cycling. Back from [place] with family - nice vacation. Retired! She [...] performed by Lee Ann Jay MD at [facility] ??? PRO BONE MARROW BX, NEEDLE/TROCAR Right 01/08/2017 ([facility]) BONE MARROW,BIOPSY (WRVU 1.37) performed by Lee Ann Jay MD at [facility] ??? PRO COLONOSCOPY, BIOPSY 07/05/2011 COLONOSCOPY FLEXIBLE, WITH BX performed by MARY CASTRO at [facility] ENDOSCOPY ??? PRO COLONOSCOPY, REMV LESN, SNARE 07/05/2011 COLONOSCOPY, POLYPECTOMY, REMOVAL LESION BY SNARE performed by MARY CASTRO at [facility] Medications; Current Outpatient Prescriptions [...] low white counts. Social History: Lives in [facility]. . 1 son 38 years old- healthy. 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 Should ??cytopenias persist , it may be [...] receptor gene rearrangement detected. Radiology: US at [facility] 11/2016. Liver 14.5 cm. Spleen 8cm. Assessment and Recommendations: 66 y.o. Healthy female who has been referred to us for leukopenia. She has had leukopenia since 2007 with normal hemoglobin and platelet. She has no symptoms- no increased frequency of infections. 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 She has been working with a cellophane wrapping examiner who started her on selenium and zinc and about a dozen other supplements. Counts are a bit higher so we will see. [employer] has been helping her with bowel issues. These are better w/ diet adjustments. Diet changes have helped her UC and GI symptoms. Of note, she is on multiple naturopathic medications through her director of valuation - mostly to help w/ herGI tract. [...] This note was written or modified using [employer] voice recognition software. The final note was screened for mistakes. Please excuse any remaining errors. documented in this encounter Plan of Treatment Upcoming Encounters Date Type Department Care Team (Late st Contact Info) Description 04/17/2024 2:30 PM EST Scheduled View Only Radiation Oncology at [address] [address] 04/20/2024 12:45 PM EST Scheduled View Only Radiation Oncology at [address] [address] 04/21/2024 10:45 AM EST Scheduled View Only Radiation Oncology at [address] [address] 04/21/2024 11:00 AM EST Office Visit Radiation Oncology at [address] [address] [facility] [place] [address] 04/22/2024 3:00 PM EST Scheduled View Only Radiation Oncology at [address] [address] 04/23/2024 3:00 PM EST Scheduled View Only Radiation Oncology at [address] [address] 04/24/2024 3:00 PM EST Scheduled View Only Radiation Oncology at [address] [address] 04/27/2024 11:15 AM EST Scheduled View Only Radiation Oncology at [address] [address] 04/28/2024 11:30 AM EST Scheduled View Only Radiation Oncology at [address] [address] 04/28/2024 12:00 PM EST Office Visit Radiation Oncology at [address] [address] [facility] [place] [address] 04/28/2024 2:00 PM EST Office Visit Cardiology at [address] [place] [address] [facility] [place] [address] 04/29/2024 11:15 AM EST Scheduled View Only Radiation Oncology at [address] [address] 04/30/2024 11:30 AM EST Scheduled View Only Radiation Oncology at [address] [address] 05/01/2024 11:15 AM EST Scheduled View Only Radiation Oncology at [address] [address] 05/04/2024 10:45 AM EST Scheduled View Only Radiation Oncology at [address] [address] 05/05/2024 1:00 PM EST Scheduled View Only Radiation Oncology at [address] [address] 05/05/2024 1:15 PM EST Office Visit Radiation Oncology at [address] [address] [facility] [place] [address] 05/06/2024 1:00 PM EST Scheduled View Only Radiation Oncology at [address] [address] 05/07/2024 1:00 PM EST Scheduled View Only Radiation Oncology at [address] [address] 05/08/2024 1:00 PM EST Scheduled View Only Radiation Oncology at [address] [address] 05/11/2024 11:30 AM EST Scheduled View Only Radiation Oncology at [address] [address] 01/13/2025 1:00 PM EST Office Visit Hematology/Oncology at [address] [address] [address] [facility] DR HEMATOLOGY [place] [address] [facility] HEMATOLOGY [place] [address] documented as of this encounter Procedures Procedure [...] type documented in this encounter Care Teams Apparel Embroidery Digitizer Relationship Specialty Start Date End Date Julia Chatterjee MD [facility] [address] [place] [address] PCP - General 01/31/10 documented as of this encounter
--- OUTSIDE RECORDS SUMMARY | 2024-04-17 01:26 | XMS_ITS | Encounter Summary ---
Author Organization Counts Include [facility] Address [facility] [place] [address] Care Team Providers Care Administration Specialist Name Role Phone Julia Chatterjee MD Primary Care Provider [phone] Encounter Details Date Type Department Care Team (Late st Contact Info) Description 08/13/2019 Telephone [place] [address] Hesham Dobson MD Social History Tobacco Use [...] 08/13/2019 12:53 PM EDT Transfer Center Call [facility] 68 yo F with hx of L [...] Scheduled View Only Radiation Oncology at [address] [address] 04/20/2024 12:45 PM EST Scheduled View Only Radiation Oncology at [address] [address] 04/21/2024 10:45 AM EST Scheduled View Only Radiation Oncology at [address] [address] 04/21/2024 11:00 AM EST Office Visit Radiation Oncology at [address] [address] Radha Casiano MD [facility] [place] [address] 04/22/2024 3:00 PM EST Scheduled View Only Radiation Oncology at [address] [address] 04/23/2024 3:00 PM EST Scheduled View Only Radiation Oncology at [address] [address] 04/24/2024 3:00 PM EST Scheduled View Only Radiation Oncology at [address] [address] 04/27/2024 11:15 AM EST Scheduled View Only Radiation Oncology at [address] [address] 04/28/2024 11:30 AM EST Scheduled View Only Radiation Oncology at [address] [address] 04/28/2024 12:00 PM EST Office Visit Radiation Oncology at [address] [address] Radha Casiano MD [facility] [place] [address] 04/28/2024 2:00 PM EST Office Visit Cardiology at [address] [address] Letty Montejo APRN [facility] [place] [address] 04/29/2024 11:15 AM EST Scheduled View Only Radiation Oncology at [address] [address] 04/30/2024 11:30 AM EST Scheduled View Only Radiation Oncology at [address] [address] 05/01/2024 11:15 AM EST Scheduled View Only Radiation Oncology at [address] [address] 05/04/2024 10:45 AM EST Scheduled View Only Radiation Oncology at [address] [address] 05/05/2024 1:00 PM EST Scheduled View Only Radiation Oncology at [address] [address] 05/05/2024 1:15 PM EST Office Visit Radiation Oncology at [address] [address] Radha Casiano MD [facility] [place] [address] 05/06/2024 1:00 PM EST Scheduled View Only Radiation Oncology at [address] [address] 05/07/2024 1:00 PM EST Scheduled View Only Radiation Oncology at [address] [address] 05/08/2024 1:00 PM EST Scheduled View Only Radiation Oncology at [address] [address] 05/11/2024 11:30 AM EST Scheduled View Only Radiation Oncology at [address] [address] 01/13/2025 1:00 PM EST Office Visit Hematology/Oncology at [address] [address] Lee Ann Jay MD [facility] [address] [place] [address] Leti Anderson APRN [facility] [address] [place] [address] documented as of this encounter Visit Diagnoses Not on filedocumented in this encounter Care Teams Administration Specialist Relationship Specialty Start Date End Date Julia Chatterjee MD [facility] [address] [place] [address] PCP - General 01/31/10 documented as of this encounter
--- OUTSIDE RECORDS SUMMARY | 2024-04-17 01:26 | XMS_ITS | Encounter Summary ---
Author Organization [facility] [place] [address] Care Team Providers Care Health Club Attendant Name Role Phone Julia Chatterjee MD Primary Care Provider [phone] Reason for Visit * Reason Onset Date Comments Labs Only 08/07/2018 Encounter Details Date Type Department Care Team ([facility] Contact Info) Description 08/07/2018 Telephone Hematology/Oncology at [address] [address] Blaire Alarcon RN Labs Only [...] Upcoming Encounters Date Type Department Care Team ([facility] Contact Info) Description 04/17/2024 2:30 PM EST Scheduled View Only Radiation Oncology at [address] [address] 04/20/2024 12:45 PM EST Scheduled View Only Radiation Oncology at [address] [address] 04/21/2024 10:45 AM EST Scheduled View Only Radiation Oncology at [address] [address] 04/21/2024 11:00 AM EST Office Visit Radiation Oncology at [address] [address] Radha Casiano MD [facility] [place] [address] 04/22/2024 3:00 PM EST Scheduled View Only Radiation Oncology at [address] [address] 04/23/2024 3:00 PM EST Scheduled View Only Radiation Oncology at [address] [address] 04/24/2024 3:00 PM EST Scheduled View Only Radiation Oncology at [address] [address] 04/27/2024 11:15 AM EST Scheduled View Only Radiation Oncology at [address] [phone] 04/28/2024 11:30 AM EST Scheduled View Only Radiation Oncology at [address] [address] 04/28/2024 12:00 PM EST Office Visit Radiation Oncology at [address] [address] Radha Casiano MD [facility] [place] [address] 04/28/2024 2:00 PM EST Office Visit Cardiology at [address] [place] [address] Letty Montejo APRN [facility] [place] [address] 04/29/2024 11:15 AM EST Scheduled View Only Radiation Oncology at [address] [address] 04/30/2024 11:30 AM EST Scheduled View Only Radiation Oncology at [address] [address] 05/01/2024 11:15 AM EST Scheduled View Only Radiation Oncology at [address] [address] 05/04/2024 10:45 AM EST Scheduled View Only Radiation Oncology at [address] [address] 05/05/2024 1:00 PM EST Scheduled View Only Radiation Oncology at [address] [address] 05/05/2024 1:15 PM EST Office Visit Radiation Oncology at [address] [address] Radha Casiano MD [facility] [place] [address] 05/06/2024 1:00 PM EST Scheduled View Only Radiation Oncology at [address] [address] 05/07/2024 1:00 PM EST Scheduled View Only Radiation Oncology at [address] [address] 05/08/2024 1:00 PM EST Scheduled View Only Radiation Oncology at [address] [address] 05/11/2024 11:30 AM EST Scheduled View Only Radiation Oncology at [address] [address] 01/13/2025 1:00 PM EST Office Visit Hematology/Oncology at [address] [address] Lee Ann Jay MD [facility] [place] [address] Leti Anderson APRN [facility] [place] [address] documented as of this encounter Visit Diagnoses Not on filedocumented in this encounter Care Teams Health Club Attendant Relationship Specialty Start Date End Date Julia Chatterjee MD [facility] [address] [place] [address] PCP - General 01/31/10 documented as of this encounter
--- OUTSIDE RECORDS SUMMARY | 2024-04-17 01:26 | XMS_ITS | Encounter Summary ---
[place] [address] Care Team Providers Care Charge Loader Name Role Phone Julia Chatterjee MD Primary Care Provider [phone] Reason for Visit * Reason Onset Date Comments Reminder Appointment 08/18/2019 Encounter Details Date Type Department Care Team (Late Contact Info) Description 08/18/2019 Telephone [place] [phone] Christy Lopez CCMA Reminder Appointment Social History [...] Scheduled View Only Radiation Oncology at [address] [address] 04/20/2024 12:45 PM EST Scheduled View Only Radiation Oncology at [address] [address] 04/21/2024 10:45 AM EST Scheduled View Only Radiation Oncology at [address] [address] 04/21/2024 11:00 AM EST Office Visit Radiation Oncology at [address] [address] Radha Casiano MD [facility] [place] [address] 04/22/2024 3:00 PM EST Scheduled View Only Radiation Oncology at [address] [address] 04/23/2024 3:00 PM EST Scheduled View Only Radiation Oncology at [address] [address] 04/24/2024 3:00 PM EST Scheduled View Only Radiation Oncology at [address] [address] 04/27/2024 11:15 AM EST Scheduled View Only Radiation Oncology at [address] [address] 04/28/2024 11:30 AM EST Scheduled View Only Radiation Oncology at [address] [address] 04/28/2024 12:00 PM EST Office Visit Radiation Oncology at [address] [address] Radha Casiano MD [facility] [place] [address] 04/28/2024 2:00 PM EST Office Visit Cardiology at [address] [place] [phone] Letty Montejo APRN [facility] DR [place] [address] 04/29/2024 11:15 AM EST Scheduled View Only Radiation Oncology at [address] [address] 04/30/2024 11:30 AM EST Scheduled View Only Radiation Oncology at [address] [address] 05/01/2024 11:15 AM EST Scheduled View Only Radiation Oncology at [address] [address] 05/04/2024 10:45 AM EST Scheduled View Only Radiation Oncology at [address] [address] 05/05/2024 1:00 PM EST Scheduled View Only Radiation Oncology at [address] [address] 05/05/2024 1:15 PM EST Office Visit Radiation Oncology at [address] [address] Radha Casiano MD [facility] [place] [address] 05/06/2024 1:00 PM EST Scheduled View Only Radiation Oncology at [address] [address] 05/07/2024 1:00 PM EST Scheduled View Only Radiation Oncology at [address] [address] 05/08/2024 1:00 PM EST Scheduled View Only Radiation Oncology at [address] [address] 05/11/2024 11:30 AM EST Scheduled View Only Radiation Oncology at [address] [address] 01/13/2025 1:00 PM EST Office Visit Hematology/Oncology at [address] [address] Lee Ann Jay MD [facility] DR HEMATOLOGY [place] [address] Leti Anderson APRN [facility] HEMATOLOGY [place] [address] documented as of this encounter Visit Diagnoses Not on filedocumented in this encounter Care Teams Charge Loader Relationship Specialty Start Date End Date Julia Chatterjee MD [facility] K[address] [address] PCP - General 01/31/10 documented as of this encounter
--- OUTSIDE RECORDS SUMMARY | 2024-04-17 01:26 | XMS_ITS | Encounter Summary ---
Author Organization [facility] [place] [address] Care Team Providers Care Material Reclaimer Name Role Phone Julia Chatterjee MD Primary Care Provider [phone] Encounter Details Date Type Department Care Team (Late st Contact Info) Description 07/31/2019 Orders Only Hematology Oncology at [address] [address] Estefany Ramon RN Large granular lymphocyte disorder [...] Scheduled View Only Radiation Oncology at [address] [address] 04/20/2024 12:45 PM EST Scheduled View Only Radiation Oncology at [address] [address] 04/21/2024 10:45 AM EST Scheduled View Only Radiation Oncology at [address] [address] 04/21/2024 11:00 AM EST Office Visit Radiation Oncology at [address] [address] Radha Casiano MD [facility] [place] [address] 04/22/2024 3:00 PM EST Scheduled View Only Radiation Oncology at [address] [address] 04/23/2024 3:00 PM EST Scheduled View Only Radiation Oncology at [address] [address] 04/24/2024 3:00 PM EST Scheduled View Only Radiation Oncology at [address] [address] 04/27/2024 11:15 AM EST Scheduled View Only Radiation Oncology at [address] [address] 04/28/2024 11:30 AM EST Scheduled View Only Radiation Oncology at [address] [address] 04/28/2024 12:00 PM EST Office Visit Radiation Oncology at [address] [address] Radha Casiano MD [facility] [place] [address] 04/28/2024 2:00 PM EST Office Visit Cardiology at [address] [place] [address] Letty Montejo, JAYLEN [facility] [place] [address] 04/29/2024 11:15 AM EST Scheduled View Only Radiation Oncology at [address] [address] 04/30/2024 11:30 AM EST Scheduled View Only Radiation Oncology at [address] [address] 05/01/2024 11:15 AM EST Scheduled View Only Radiation Oncology at [address] [address] 05/04/2024 10:45 AM EST Scheduled View Only Radiation Oncology at [address] [address] 05/05/2024 1:00 PM EST Scheduled View Only Radiation Oncology at [address] [address] 05/05/2024 1:15 PM EST Office Visit Radiation Oncology at [address] [address] Radha Casiano MD [facility] [place] [place] [address] 05/06/2024 1:00 PM EST Scheduled View Only Radiation Oncology at [address] [address] 05/07/2024 1:00 PM EST Scheduled View Only Radiation Oncology at [address] [address] 05/08/2024 1:00 PM EST Scheduled View Only Radiation Oncology at [address] [address] 05/11/2024 11:30 AM EST Scheduled View Only Radiation Oncology at [address] [address] 01/13/2025 1:00 PM EST Office Visit Hematology/Oncology at [address] [address] Lee Ann Jay MD [facility] [place] [address] Leti Anderson APRN [facility] HEMATOLOGY [place] [address] documented as of this encounter Visit Diagnoses Diagnosis 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
--- OUTSIDE RECORDS SUMMARY | 2024-04-17 01:26 | XMS_ITS | Encounter Summary ---
Author Organization [facility] Address [facility] [place] [address] Care Team Providers Care Hangersmith Name Role Phone Julia Chatterjee MD Primary Care Provider [phone] Encounter Details Date Type Department Care Team (Late st Contact Info) Description 09/02/2019 Notes [place] [address] Izzy Fabian MD [facility] DR [place] [address] Social History Tobacco Use Types Packs/Day Years [...] performed by Lee Ann Jay MD at [facility] ??? PRO BONE MARROW BX, NEEDLE/TROCAR Right 01/08/2017 ([facility] MSURG) BONE MARROW,BIOPSY (WRVU 1.37) performed by Lee Ann Jay MD at [facility] ??? PRO COLONOSCOPY, BIOPSY 07/05/2011 COLONOSCOPY FLEXIBLE, WITH BX performed by MARY CASTRO at [facility] ??? PRO COLONOSCOPY, REMV LESN, SNARE 07/05/2011 COLONOSCOPY, POLYPECTOMY, REMOVAL LESION BY SNARE performed by MARY CASTRO at [facility] Medications: No current facility-administered medications [...] Scheduled View Only Radiation Oncology at [address] [address] 04/20/2024 12:45 PM EST Scheduled View Only Radiation Oncology at [address] [address] 04/21/2024 10:45 AM EST Scheduled View Only Radiation Oncology at [address] [address] 04/21/2024 11:00 AM EST Office Visit Radiation Oncology at [address] [address] Radha Casiano MD [facility] [place] [address] 04/22/2024 3:00 PM EST Scheduled View Only Radiation Oncology at [address] [address] 04/23/2024 3:00 PM EST Scheduled View Only Radiation Oncology at [address] [address] 04/24/2024 3:00 PM EST Scheduled View Only Radiation Oncology at [address] [address] 04/27/2024 11:15 AM EST Scheduled View Only Radiation Oncology at [address] [address] 04/28/2024 11:30 AM EST Scheduled View Only Radiation Oncology at [address] [address] 04/28/2024 12:00 PM EST Office Visit Radiation Oncology at [address] [address] Radha Casiano MD [facility] [place] [address] 04/28/2024 2:00 PM EST Office Visit Cardiology at [address] [place] [address] Letty Montejo APRN [facility] [place] [address] 04/29/2024 11:15 AM EST Scheduled View Only Radiation Oncology at [address] [address] 04/30/2024 11:30 AM EST Scheduled View Only Radiation Oncology at [address] [address] 05/01/2024 11:15 AM EST Scheduled View Only Radiation Oncology at [address] [address] 05/04/2024 10:45 AM EST Scheduled View Only Radiation Oncology at [address] [address] 05/05/2024 1:00 PM EST Scheduled View Only Radiation Oncology at [address] [address] 05/05/2024 1:15 PM EST Office Visit Radiation Oncology at [address] [address] Radha Casiano MD [facility] [place] [address] 05/06/2024 1:00 PM EST Scheduled View Only Radiation Oncology at [address] [address] 05/07/2024 1:00 PM EST Scheduled View Only Radiation Oncology at [address] [address] 05/08/2024 1:00 PM EST Scheduled View Only Radiation Oncology at [address] [address] 05/11/2024 11:30 AM EST Scheduled View Only Radiation Oncology at [address] [address] 01/13/2025 1:00 PM EST Office Visit Hematology/Oncology at [address] [address] Lee Ann Jay MD [facility] DR HEMATOLOGY [place] [address] Leti Anderson APRN [facility] HEMATOLOGY [place] [address] documented as of this encounter Visit Diagnoses Not on filedocumented in this encounter Care Teams Hangersmith Relationship Specialty Start Date End Date Julia Chatterjee MD [facility] [address] [place] [address] PCP - General 01/31/10 documented as of this encounter
--- OUTSIDE RECORDS SUMMARY | 2024-04-17 01:26 | XMS_ITS | Encounter Summary ---
Author Organization [facility] Address [facility] [place] [address] Care Team Providers Care Robotype Operator Name Role Phone Julia Chatterjee MD Primary Care Provider [phone] Encounter Details Date Type Department Care Team (Late st Contact Info) Description 01/08/2017 9:30 AM EDT - 01/08/2017 10:00 AM EDT Surgery [place] [address] Lee Ann Jay MD [facility] DR H[place] [address] ([facility] MSURG) BONE MARROW ASP PERFORMED W/BX [...] 5pm or on a weekend: Call the [facility] supercalender operator helper at and ask for the physician substation operator automatic covering for your doctor. Instructions following sedation [...] occurs, please contact your M. D. [address] ??? [place] [address] ??? [phone] ??? [email or web address] ??? [facility] ??? [facility] ??? [facility] documented in this encounter Medications at [...] this encounter H&P Notes * Radha Cooper, HR PAYROLL COORDINATOR - 01/08/2017 9:12 AM EDT Images from [...] procedure. Discharge to: Home Radha Cooper, MSN, HR PAYROLL COORDINATOR Nurse Practitioner Section of Hematology/Oncology [facility] Office phone: documented in this encounter Procedure Notes * Radha Cooper APRN - 01/08/2017 9:44 AM EDTAssociated Order(s): ([facility] MSURG) UNILAT BONE MARROW BIOSPY; ([facility] MSURG)BONE MARROW ASP PERFORMED W/BX THRU BX INCISION BONE MARROW BIOPSY AND ASPIRATION PROCEDURE NOTE Bone Marrow Biopsy & Aspiration with Conscious Sedation - Unilateral Date/Time of Procedure: 01/08/2017 Proceduralist: Radha Cooper, RN, MS, INTERNATIONAL TRADE MANAGER DIAGNOSIS: neutropenia Pre-Procedure: (x) Consent signed and [...] Scheduled View Only Radiation Oncology at [address] [address] 04/20/2024 12:45 PM EST Scheduled View Only Radiation Oncology at [address] [address] 04/21/2024 10:45 AM EST Scheduled View Only Radiation Oncology at [address] [address] 04/21/2024 11:00 AM EST Office Visit Radiation Oncology at [address] [address] Radha Casiano MD [facility] [place] [address] 04/22/2024 3:00 PM EST Scheduled View Only Radiation Oncology at [address] [address] 04/23/2024 3:00 PM EST Scheduled View Only Radiation Oncology at [address] [address] 04/24/2024 3:00 PM EST Scheduled View Only Radiation Oncology at [address] [address] 04/27/2024 11:15 AM EST Scheduled View Only Radiation Oncology at [address] [address] 04/28/2024 11:30 AM EST Scheduled View Only Radiation Oncology at [address] [address] 04/28/2024 12:00 PM EST Office Visit Radiation Oncology at [address] [address] Radha Casiano MD [facility] [place] [address] 04/28/2024 2:00 PM EST Office Visit Cardiology at [address] [place] [phone] Letty Montejo APRN [facility] [place] [address] 04/29/2024 11:15 AM EST Scheduled View Only Radiation Oncology at [address] [address] 04/30/2024 11:30 AM EST Scheduled View Only Radiation Oncology at [address] [address] 05/01/2024 11:15 AM EST Scheduled View Only Radiation Oncology at [address] [address] 05/04/2024 10:45 AM EST Scheduled View Only Radiation Oncology at [address] [address] 05/05/2024 1:00 PM EST Scheduled View Only Radiation Oncology at [address] [address] 05/05/2024 1:15 PM EST Office Visit Radiation Oncology at [address] [address] Radha Casiano MD [facility] [place] [address] 05/06/2024 1:00 PM EST Scheduled View Only Radiation Oncology at [address] [address] 05/07/2024 1:00 PM EST Scheduled View Only Radiation Oncology at [address] [address] 05/08/2024 1:00 PM EST Scheduled View Only Radiation Oncology at [address] [address] 05/11/2024 11:30 AM EST Scheduled View Only Radiation Oncology at [address] [address] 01/13/2025 1:00 PM EST Office Visit Hematology/Oncology at [address] [address] Lee Ann Jay MD [facility] DR HEMATOLOG[place] [address] Leti Anderson, JAYLEN [facility] DR HEMATOLOG[place] [address] documented as of this encounter Procedures Procedure [...] FINAL REPORT Routine 017 9:31 AM EDT [facility] M[facility] TEST-MACE Routine 01/08/2017 9 :31 AM EDT IRON STAIN, BONE MARROW Routine 01/09/20 17 9:31 AM EDT BONE MARROW PANEL ([facility]CGP/APD) Routine 01/08/2017 9:31 AM EDT ([facility] MSURG) [...] chromo report acquired (01/08/2017 11:45 AM EDT) [facility] Cytogenetics Acquired Report Final Report ?[id number] Specimen Type: Bone Marrow Specimen Condition: ~ [...] By: Christiano PONCE, Ph.D., Liming Director, Cytogenetics [facility] 01/08/2017 11:4 5 AM EDT Radha Cooper HR PAYROLL COORDINATOR HEMATOLOGY ORDERABLE S [facility] [place] [address] * ([facility] MSURG)BONE MARROW ASP PERFORMED W/BX THRU BX INCISION (01/08/2017 9:45 AM EDT) Narrative Radha Cooper APRN - 01/08/2017 9:45 AM EDT Radha Cooper APRN ? 01/08/2017 ??9:45 AM BONE MARROW BIOPSY AND ASPIRATION PROCEDURE NOTE Bone Marrow Biopsy & Aspiration with Conscious Sedation - Unilateral Date/Time of Procedure: 01/08/2017 Proceduralist: Radha Cooper, RN, MS, INTERNATIONAL TRADE MANAGER DIAGNOSIS: neutropenia Pre-Procedure: (x) Consent signed and [...] (01/08/2017 9:45 AM EDT) Narrative Radha Cooper, HR PAYROLL COORDINATOR - 01/08/2017 9:45 AM EDT Radha Cooper, HR PAYROLL COORDINATOR ? 01/08/2017 ??9:45 AM BONE MARROW BIOPSY AND ASPIRATION PROCEDURE NOTE Bone Marrow Biopsy & Aspiration with Conscious Sedation - Unilateral Date/Time of Procedure: 01/08/2017 Proceduralist: Radha Cooper, RN, MS, INTERNATIONAL TRADE MANAGER DIAGNOSIS: neutropenia Pre-Procedure: (x) Consent signed and [...] Report (01/08/2017 9:31 AM EDT) Final Diagnosis [id number] ? Location: [facility] The signing pathologist has (i) examined the relevant preparation(s) for the specimen(s) and (ii) rendered or confirmed the diagnosis(es). . ? Final Integrated Report INTEGRATED DIAGNOSIS Patient: ??[id number] ?? LETI PARRY Bone [place] [address] == SPECIMEN RESULTS == 1. Normocellular marrow [...] cell population or increase in blasts detected. [place] FLOW REPORT for NK/LGL analysis : NORMAL . No monotypic B-cell population, phenotypically aberrant T-cell population or increase in blasts identified. T-cells/ NK-cells: ?Normal phenotype by CD2, CD3, CD4, CD45, ? CD5, CD7, CD8, CD16, CD56, CD57, CD94, NKG2a, and TCR-gamma/delta. KIR panel: ?No monotypic, normal pattern of ZN018f, ZL480o, and WY453t (p70). Molecular genetic analysis: ? T CELL [...] results from all diagnostic studies performed at [facility] on this particular biopsy specimen. ??Please refer to the primary report(s) of each individual study for complete text and additional study details. Electronically signed by: ??Shad Rubio MD Verified: ??03/18/2017 ?Hematopathologist Performed at: ??-[facility] Dept. of Pathology, [place], [place] ?Molecular Genetics RESULTS ? T CELL [...] paraffin embedded tissue. ??PCR was performed using [employer] ??'s TCR Beta gene clonality assay (primer mixes TBA, TBB, TBC), and TCR Gamma gene clonality assay (primer mixes TGA and TGB). ??Fluorescently labeled PCR products were using the [employer] Playto 3500 capillary electrophoresis system. RESULTS: ??The appropriate [...] study (Miguelangel et. al. Leukemia. ??2002; 17 (12):1579-0410), the [employer]ribe B cell IgH gene rearrangement assay was [...] determined by the Molecular Pathology Laboratory at [facility]. It has not been cleared or approved by the U.S. Food and Drug Administration. However, as a C.L.I.A. licensed ??laboratory, our facility is approved for such high complexity clinical testing. _ Electronically signed by: ??Shad Rubio MD Verified: ??01/21/2017 ?Hematopathologist Performed at: ??-[facility] Dept. of Pathology, [place], [place] ? Bone Marrow Final DIAGNOSIS 1. Normocellular marrow with normal trilineage hematopoesis, with minor CD8+ T-cell interstitial infiltrate (5% of marrow) 2. Neutropenia, increased large granular lymphocytes, peripheral blood . DIAGNOSIS 3. NK clonality studies pending. Electronically signed by: ??Shad Rubio MD Verified: ??01/11/2017 ?Hematopathologist Performed at: ??-[facility] Dept. of Pathology, [place], [place] DISCUSSION The findings are suspicious ??but not diagnostic for ?Large Granular lymphocytic Leukemia . The T lymphocytes are CD8 dominant, but do not show aberrancy by flow analysis. NK cells are not interrogated for clonality by our studies and clonality studies ( KIR assessment by flow ) are being pursued at the [facility]. Should cytopenias persist , it may [...] developed and their performance characteristics determined by [facility] Clinical Laboratories. ??They have not been cleared [...] Rubio MD Verified: ??01/09/2017 ?Hematopathologist Performed at: ??-[facility] Dept. of Pathology, [place], [place] DISCUSSION Blasts based on CD45 expression and orthogonal light scatter, are not increased. The T-lymphocytes, CD56+ NK cells and B- lymphocytes comprise approx 69%, 30%, 2% of the gated population, respectively. The CD19 positive B-cells have a polytypic expression of surface immunoglobulin light chain ([place]:Lambda ratio at 1.6). The T-cells are an admixture of CD4+ and CD8+ T lymphocytes (ratio of 0.6). No loss or atypical intensity distributions are seen for any shankar T antigen (CD2, 3, 4+8, 5, 7). There is no increase in AG00-elhwzrrc/CD3-n eg NK cells or CD3+CD16+ aberrant T cells. Flow analysis is an ancillary study. A definite diagnosis requires correlation with the morphologic features of this process and if necessary, correlation with other ancillary studies like immunohistochemistr y, enzyme cytochemistry and/or cyto/ molecular genetics. This test was developed and its performance characteristics determined by the Clinical Flow Cytometry Laboratory at [facility]. It has not been cleared or approved [...] high complexity clinical laboratory testing. SPECIMEN PROCESSING [id number] Cells for immunophenotypic analysis were derived from bone marrow aspirate. ??CD45 vs side scatter gating was utilized to identify a lymphoid analysis region that comprises approximately 13-15% of all cells. The following markers were assessed: CD2, CD3, CD4, CD5, CD7, CD8, CD10, CD16, CD19, CD45, CD56, CD57, kappa light chain, and lambda light chain. CLINICAL INFORMATION neutropenia 03/18/2017 5:14 PM EST [facility] BONE MARROW STRUCTURE / Unknown 01/08/2017 9:31 AM EDT 01/08/2017 9:31 AM EDT Radha Cooper APRN PATHOLOGY/CYTOLOGY O RDERABLES [facility] [place] [address] * [facility] Mace Test-Mace (01/08/2017 9:31 AM EDT) [facility] Mace Test ?Result ? Flag ??Unit ??RefValue [...] reagent. ?Its performance characteristics were determined by [facility] in a manner consistent with CLIA [...] KIR panel: ??No monotypic, normal pattern ?of NS162b, JQ731y, and XE500l (p70). ?Quality assessment: ??Specimen received within validated ?guidelines. ??Microscopic Description ? SEE COMMENTS ?A Xtxffu-Hpmzyy-oxhtjb d slide prepared from the flow ?cytometry specimen is examined. ??The specimen contains ?maturing hematopoietic precursors. ??No morphologic features ?of acute leukemia, lymphoma or a plasma cell proliferative ?disorder are identified. ?Test Performed by: ?[facility] ?[address] [facility] Blood specimen (specimen) Venous Draw / Unknown 01/08/2017 9:31 AM EDT 01/09/2017 3:59 PM EDT Narrative Resulting Agency Comment Spec In Lab Radha Cooper APRN LAB SEND OUT ORDERAB LES Performing Organization Address [facility] Co de Phone Number [facility] [place] [address] * Myeloid Seq Panel (01/08/2017 9:31 AM EDT) Bone marrow specimen (specimen) 01/08/2017 9:31 AM EDT 01/10/2017 6:43 AM EDT Narrative Resulting Agency Comment Spec In Lab Radha Cooper APRN CHEMISTRY ORDERABLES Performing Organization Address [facility] de Phone Number [facility] [place] [address] * Immunophenotyping Flow Cytometry (01/08/2017 9:31 AM EDT) Immunophenotyping Flow See Comment [facility] Comment: When completed by the Pathologist, the Flow Cytometry Report ([id number]) will display under the Pathology Results section within [facility]. Bone marrow specimen (specimen) 01/08/2017 9:31 AM EDT 01/08/2017 10:11 AM EDT Narrative Resulting Agency Comment Spec In Lab Radha Cooper APRN HEMATOLOGY ORDERABLE S Performing Organization Address [facility] Co de Phone Number [facility] [place] [address] * Iron Stain, Bone Marrow (01/08/2017 9:31 AM EDT) Bone Marrow Iron Stain See Comment [facility] Comment:See Bone Marrow Repo rt [id number] under Hematopathology Reports. Bone marrow specimen (specimen) 01/08/2017 9:31 AM EDT 01/08/2017 10:11 AM EDT Narrative Resulting Agency Comment Spec In Lab Radha Cooper HR PAYROLL COORDINATOR HEMATOLOGY ORDERABLE S [facility] [place] [address] * Scan, Peripheral Blood (01/08/2017 8:56 AM EDT) Pathologist [facility] Plat estimate Normal [facility] RBC Morphology Normal [facility] Blood specimen (specimen) 01/08/2017 8:56 AM EDT 01/08/2017 10:11 AM EDT Narrative Resulting Agency Comment Spec In Lab Radha Hurley Allison HR PAYROLL COORDINATOR HEMATOLOGY ORDERABLE S Performing Organization Address City/[facility]/ZIP Co de Phone Number [facility] [place] [address] * (ABNORMAL) Differential, Automated (01/08/2017 8:56 AM EDT) [facility] Neutrophil % 10.4 % [facility] Neutrophil Absolute 0.21(Crit ical) 1.70 - 6.10 x10(3)/mc L [facility] Comment: This result has been called to ELIZABETH SALGADO by Mckay Rodriguez on 01 08 2017 at 1049, and has been read back. Lymph % 65.2 % [facility] Lymphocytes Abs 1.3 0.9 - 3.2 x10(3)/mc L [facility] Monocyte % 18.4 % [facility] Monocyte Abs 0.4 0.3 - 0.9 x10(3)/mc L [facility] Eos % 0.5 % [facility] Eosinophils Abs 0.0 0.0 - 0.4 x10(3)/mc L [facility] Basophil % 0.5 % [facility] Baso Absolute 0.0 0.0 - 0.1 x10(3)/mc L [facility] Immature Gran % 5.00 % [facility] Comment: Immature granulocytes(IG's)percentage and absolute count will include metamyelocytes, myelocytes, and promyelocytes. Blood smears from CBCs yielding IG's will be scanned manually for concordance. If this scan disagrees with the automated IG or if promyelocytes are noted, a manual differential will be performed. Immature Gran Absolute 0.10(H) 0.00 - 0.04 x10(3)/mc L [facility] Blood specimen (specimen) 01/08/2017 8:56 AM EDT 01/08/2017 10:11 AM EDT Narrative Resulting Agency Comment Spec In Lab Radha Cooper HR PAYROLL COORDINATOR HEMATOLOGY ORDERABLE S [facility] [place] [address] * (ABNORMAL) Hemogram (01/08/2017 8:56 AM EDT) White Blood Cell 2.0(L) 4.0 - 9.5 x10(3)/mc L [facility] Red Blood Cell 4.55 4.00 - 5.21 x10(6)/mc L [facility] Hemoglobin 13.3 11.7 - 15.5 gm/dL [facility] Hematocrit 40.9 35.7 - 45.8 % [facility] Mean Cell Volume 89.9 82.6 - 94.4 fL [facility] Mean Cell Hemoglobin 29.2 27.1 - 32.0 pg [facility] Mean Cell Hemoglobin Concentration 32.5 31.7 - 35.0 gm/dL [facility] Platelet 183 145 - 357 x10(3)/mc L [facility] RDW Standard Deviation 40.4 37.0 - 46.0 fL [facility] RDW coefficient of variation 12.2 11.5 - 14.1 % [facility] Mean Platelet Volume 10.2 7.6 - 12.9 fL [facility] NRBC% auto 0.0 % [facility] NRBC Absolute 0.000 0.000 - 0.000 x10(3)/mc L [facility] Blood specimen (specimen) 01/08/2017 8:56 AM EDT 01/08/2017 10:11 AM EDT Narrative Resulting Agency Comment Spec In Lab Radha Cooper HR PAYROLL COORDINATOR HEMATOLOGY ORDERABLE S [facility] [place] [address] documented in this encounter Visit Diagnoses Not [...] (maximum dose 200 mcg), Intra-Operative (Intra-Procedure), Routine 0929 (Given - Provid er: Gracy Garcias RN)0931 [...] (Due) documented in this encounter Care Teams Robotype Operator Relationship Specialty Start Date End Date Julia Chatterjee MD Sushant [address] [facility] [address] [place] [address] PCP - General 01/31/10 documented as of this encounter
--- OUTSIDE RECORDS SUMMARY | 2024-04-17 01:26 | XMS_ITS | Encounter Summary ---
Author Organization [facility] Address [facility] [place] [address] Care Team Providers Care Incident Response Manager Name Role Phone Julia Chatterjee MD Primary Care Provider [phone] Encounter Details Date Type Department Care Team (Late st Contact Info) Description 09/01/2019 8:00 PM EDT Ancillary Procedure Radiology Library at [facility] [place] [phone] Social History Tobacco Use Types Packs/Day Years [...] Scheduled View Only Radiation Oncology at [address] [address] 04/20/2024 12:45 PM EST Scheduled View Only Radiation Oncology at [address] [address] 04/21/2024 10:45 AM EST Scheduled View Only Radiation Oncology at [address] [address] 04/21/2024 11:00 AM EST Office Visit Radiation Oncology at [address] [address] Radha Casiano MD [facility] [place] [address] 04/22/2024 3:00 PM EST Scheduled View Only Radiation Oncology at [address] [address] 04/23/2024 3:00 PM EST Scheduled View Only Radiation Oncology at [address] [address] 04/24/2024 3:00 PM EST Scheduled View Only Radiation Oncology at [address] [address] 04/27/2024 11:15 AM EST Scheduled View Only Radiation Oncology at [address] [address] 04/28/2024 11:30 AM EST Scheduled View Only Radiation Oncology at [address] [address] 04/28/2024 12:00 PM EST Office Visit Radiation Oncology at [address] [address] Radha Casiano MD [facility] [place] [address] 04/28/2024 2:00 PM EST Office Visit Cardiology at [address] [place] [address] Letty Montejo, JAYLEN [facility] [place] [address] 04/29/2024 11:15 AM EST Scheduled View Only Radiation Oncology at [address] [address] 04/30/2024 11:30 AM EST Scheduled View Only Radiation Oncology at [address] [address] 05/01/2024 11:15 AM EST Scheduled View Only Radiation Oncology at [address] [address] 05/04/2024 10:45 AM EST Scheduled View Only Radiation Oncology at [address] [address] 05/05/2024 1:00 PM EST Scheduled View Only Radiation Oncology at [address] [address] 05/05/2024 1:15 PM EST Office Visit Radiation Oncology at [address] [address] Radha Casiano MD [facility] [place] [address] 05/06/2024 1:00 PM EST Scheduled View Only Radiation Oncology at [address] [address] 05/07/2024 1:00 PM EST Scheduled View Only Radiation Oncology at [address] [address] 05/08/2024 1:00 PM EST Scheduled View Only Radiation Oncology at [address] [address] 05/11/2024 11:30 AM EST Scheduled View Only Radiation Oncology at [address] [address] 01/13/2025 1:00 PM EST Office Visit Hematology/Oncology at [address] [address] Lee Ann Jay MD [facility] [place] [address] Leti Anderson APRN [facility] HEMATOLOGY [place] [address] documented as of this encounter Procedures Procedure Name Priority Date/Time Associated Diagnosis Comments FILM LIBRARY STORAGE ONLY CT ABDOMEN AND PELVIS STAT 09/01/2019 7:57 PM EDT documented in this encounter Results * Film Library- Storage Only CT Abdomen & Pelvis (09/01/2019 7:57 PM EDT) Narrative RAD - 09/01/2019 7:57 PM EDT This exam is auto-finalizing. It's purpose is for storage only. L Inder Oliveros MD IMG FILM LIBRARY ORD ERABLES [place], [place] documented in this encounter Visit Diagnoses Not on filedocumented in this encounter Care Teams Incident Response Manager Relationship Specialty Start Date End Date Julia Chatterjee MD [address] [place] [address] PCP - General 01/31/10 documented as of this encounter
--- OUTSIDE RECORDS SUMMARY | 2024-04-17 01:26 | XMS_ITS | Encounter Summary ---
[place] [address] Care Team Providers Care Switchboard Operator Supervisor Name Role Phone Julia Chatterjee MD Primary Care Provider [phone] Encounter Details Date Type Department Care Team (Latest Contact Info) Description 02/28/2017 9:55 AM EST Laboratory Appointment Lab [address] [phone] Large granular lymphocyte disorder; Neutropenia, unspecified type [...] Scheduled View Only Radiation Oncology at [address] [phone] 04/20/2024 12:45 PM EST Scheduled View Only Radiation Oncology at [address] [phone] 04/21/2024 10:45 AM EST Scheduled View Only Radiation Oncology at [address] [phone] 04/21/2024 11:00 AM EST Office Visit Radiation Oncology at [address] [phone] Radha Casiano MD [facility] [place] [address] 04/22/2024 3:00 PM EST Scheduled View Only Radiation Oncology at [address] [address] 04/23/2024 3:00 PM EST Scheduled View Only Radiation Oncology at [address] [address] 04/24/2024 3:00 PM EST Scheduled View Only Radiation Oncology at [address] [phone] 04/27/2024 11:15 AM EST Scheduled View Only Radiation Oncology at [address] [address] 04/28/2024 11:30 AM EST Scheduled View Only Radiation Oncology at [address] [address] 04/28/2024 12:00 PM EST Office Visit Radiation Oncology at [address] [address] Radha Casiano MD [facility] [place] [address] 04/28/2024 2:00 PM EST Office Visit Cardiology at [address] [place] [address] Letty Montejo APRN [facility] [place] [address] 04/29/2024 11:15 AM EST Scheduled View Only Radiation Oncology at [address] [address] 04/30/2024 11:30 AM EST Scheduled View Only Radiation Oncology at [address] [address] 05/01/2024 11:15 AM EST Scheduled View Only Radiation Oncology at [address] [address] 05/04/2024 10:45 AM EST Scheduled View Only Radiation Oncology at [address] [address] 05/05/2024 1:00 PM EST Scheduled View Only Radiation Oncology at [address] [address] 05/05/2024 1:15 PM EST Office Visit Radiation Oncology at [address] [address] Radha Casiano MD [facility] [place] [address] 05/06/2024 1:00 PM EST Scheduled View Only Radiation Oncology at [address] [address] 05/07/2024 1:00 PM EST Scheduled View Only Radiation Oncology at [address] [address] 05/08/2024 1:00 PM EST Scheduled View Only Radiation Oncology at [address] [address] 05/11/2024 11:30 AM EST Scheduled View Only Radiation Oncology at [address] [address] 01/13/2025 1:00 PM EST Office Visit Hematology/Oncology at [address] [address] Lee Ann Jay MD [facility] HEMATOLOGY [place] [address] Leti Anderson APRN [facility] HEMATOLOGY [place] [address] documented as of this encounter Procedures Procedure Name Priority Date/Time Associated Diagnosis Comments MISCELLANEOUS LAB REQUEST Routine 02/28/2017 10:01 AM EST Large granular lymphocyte disorder Neutropenia, unspecified type MISCELLANEOUS LAB REQUEST Routine 02/28/2017 10:01 AM EST Large granular lymphocyte disorder Neutropenia, unspecified type MISC SENDOUT Routine 02/28/2017 10:01 AM EST documented in this encounter Results * Misc Sendout (02/28/2017 10:01 AM EST) [facility] Sendout See Note [facility] Comment: The ordered test is: [facility], [address] [place] [address] See Scanned Report. Specimen of unknown material (specimen) Other / Unknown 02/28/2017 10:01 AM EST 03/01/2017 10:50 AM EST Lee Ann Jay MD LAB SEND OUT ORD [email or web address] Performing Organization Address City/[facility]/ZIP Co de Phone Number [facility] [address] * Miscellaneous Lab request (02/28/2017 10:01 AM EST) Label Request received in lab. [facility] Blood specimen (specimen) 02/28/2017 10:01 AM EST 02/28/2017 10:13 AM EST Narrative Resulting Agency Comment Spec In Lab Lee Ann Jay MD LAB SEND OUT ORD [facility] Performing Organization Address City/[facility]/ZIP Co de Phone Number [facility] [place] [address] * Miscellaneous Lab request (02/28/2017 10:01 AM EST) Label Request received in lab. 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
--- OUTSIDE RECORDS SUMMARY | 2024-04-17 01:26 | XMS_ITS | Encounter Summary ---
Author Organization [facility] Address [facility] [place] [address] Care Team Providers Care Batter Out Name Role Phone Julia Chatterjee MD Primary Care Provider [phone] Encounter Details Date Type Department Care Team (Late st Contact Info) Description 09/01/2019 Telephone [place] [address] Yola Oliveros MD [facility] [place] [address] Social History Tobacco Use Types Packs/Day Years [...] Abd/pelvis, which was done this afternoon at [facility] as an outpt. Per Dr. Collins, it showed a large obstructing abscess in the R lobe. In retrospect, I think there is perhaps start of R lobe abscess on 08/[address] CT[address]ked that the CT be pushed down to [facility] - though that has yet to occur. [...] Scheduled View Only Radiation Oncology at [address] [phone] 04/20/2024 12:45 PM EST Scheduled View Only Radiation Oncology at [address] [address] 04/21/2024 10:45 AM EST Scheduled View Only Radiation Oncology at [address] [address] 04/21/2024 11:00 AM EST Office Visit Radiation Oncology at [address] [address] Radha Casiano MD [facility] [place] [address] 04/22/2024 3:00 PM EST Scheduled View Only Radiation Oncology at [address] [address] 04/23/2024 3:00 PM EST Scheduled View Only Radiation Oncology at [address] [address] 04/24/2024 3:00 PM EST Scheduled View Only Radiation Oncology at [address] [phone] 04/27/2024 11:15 AM EST Scheduled View Only Radiation Oncology at [address] [address] 04/28/2024 11:30 AM EST Scheduled View Only Radiation Oncology at [address] [address] 04/28/2024 12:00 PM EST Office Visit Radiation Oncology at [address] [address] Radha Casiano MD [facility] [place] [address] 04/28/2024 2:00 PM EST Office Visit Cardiology at [address] [place] [address] Letty Montejo APRN [facility] [place] [address] 04/29/2024 11:15 AM EST Scheduled View Only Radiation Oncology at [address] [address] 04/30/2024 11:30 AM EST Scheduled View Only Radiation Oncology at [address] [address] 05/01/2024 11:15 AM EST Scheduled View Only Radiation Oncology at [address] [address] 05/04/2024 10:45 AM EST Scheduled View Only Radiation Oncology at [address] [address] 05/05/2024 1:00 PM EST Scheduled View Only Radiation Oncology at [address] [address] 05/05/2024 1:15 PM EST Office Visit Radiation Oncology at [address] [address] Rahda Casiano MD [facility] [place] [address] 05/06/2024 1:00 PM EST Scheduled View Only Radiation Oncology at [address] [address] 05/07/2024 1:00 PM EST Scheduled View Only Radiation Oncology at [address] [address] 05/08/2024 1:00 PM EST Scheduled View Only Radiation Oncology at [address] [address] 05/11/2024 11:30 AM EST Scheduled View Only Radiation Oncology at [address] [address] 01/13/2025 1:00 PM EST Office Visit Hematology/Oncology at [address] [address] Lee Ann Jay MD [facility] [address] [place] [address] Leti Anderson APRN [facility] [address] [place] [address] documented as of this encounter Visit Diagnoses Not on filedocumented in this encounter Care Teams Batter Out Relationship Specialty Start Date End Date Julia Chatterjee MD [facility]ush[facility] DORADO [address] [place] [id number] PCP - General 01/31/10 documented as of this encounter
--- OUTSIDE RECORDS SUMMARY | 2024-04-17 01:27 | XMS_ITS | Encounter Summary ---
Author Organization [facility] Address [facility] [place] [address] Care Team Providers Care Shipping Room Helper Name Role Phone Julia Chatterjee MD Primary Care Provider [phone] Encounter Details Date Type Department Care Team (Late st Contact Info) Description 01/08/2017 8:33 AM EDT - 01/08/2017 10:06 AM EDT Hospital Encounter [place] [address] Lee Ann Jay MD [facility] DR HEMATOLOGY [place] [address] Discharge Disposition: Home Social History Tobacco Use [...] 5pm or on a weekend: Call the [facility] assembly line robot operator at and ask for the physician data governance consultant covering for your doctor. Instructions following sedation [...] occurs, please contact your M. D. [address] [facility] [address] ??? [place] [address] ??? [phone] ??? [email or web address] [facility] ??? [facility] ??? [facility] ??? [facility] documented in this encounter Medications [...] procedure. Discharge to: Home Radha Cooper, MSN, CRYPTOZOOLOGIST Nurse Practitioner Section of Hematology/Oncology [facility] Office phone: documented in this encounter Procedure Notes * Radha Cooper APRN - 01/08/2017 9:44 AM EDTAssociated Order(s): ([facility] MSURG) UNILAT BONE MARROW BIOSPY; ([facility] MSURG)BONE MARROW ASP PERFORMED W/BX THRU BX INCISION BONE MARROW BIOPSY AND ASPIRATION PROCEDURE NOTE Bone Marrow Biopsy & Aspiration with Conscious Sedation - Unilateral Date/Time of Procedure: 01/08/2017 Proceduralist: Radha Cooper, RN, MS, SENIOR FIELD SERVICE ENGINEER DIAGNOSIS: neutropenia Pre-Procedure: (x) Consent signed and [...] EST Scheduled View Only Radiation Oncology at [address] [phone] 04/20/2024 12:45 PM EST Scheduled View Only Radiation Oncology at [address] [phone] 04/21/2024 10:45 AM EST Scheduled View Only Radiation Oncology at [address] [phone] 04/21/2024 11:00 AM EST Office Visit Radiation Oncology at [address] [phone] Radha Casiano MD [facility] [place] [address] 04/22/2024 3:00 PM EST Scheduled View Only Radiation Oncology at [address] [phone] 04/23/2024 3:00 PM EST Scheduled View Only Radiation Oncology at [address] [phone] 04/24/2024 3:00 PM EST Scheduled View Only Radiation Oncology at [address] [phone] 04/27/2024 11:15 AM EST Scheduled View Only Radiation Oncology at [address] [phone] 04/28/2024 11:30 AM EST Scheduled View Only Radiation Oncology at [address] [phone] 04/28/2024 12:00 PM EST Office Visit Radiation Oncology at [address] [phone] Radha Casiano MD [facility] [place] [address] 04/28/2024 2:00 PM EST Office Visit Cardiology at [address] [place] [phone] Letty Montejo APRN [facility] [place] [address] 04/29/2024 11:15 AM EST Scheduled View Only Radiation Oncology at [address] [phone] 04/30/2024 11:30 AM EST Scheduled View Only Radiation Oncology at [address] [phone] 05/01/2024 11:15 AM EST Scheduled View Only Radiation Oncology at [address] [address] 05/04/2024 10:45 AM EST Scheduled View Only Radiation Oncology at [address] [phone] 05/05/2024 1:00 PM EST Scheduled View Only Radiation Oncology at [address] [phone] 05/05/2024 1:15 PM EST Office Visit Radiation Oncology at [address] [phone] Radha Casiano MD [facility] [place] [address] 05/06/2024 1:00 PM EST Scheduled View Only Radiation Oncology at [address] [phone] 05/07/2024 1:00 PM EST Scheduled View Only Radiation Oncology at [address] [phone] 05/08/2024 1:00 PM EST Scheduled View Only Radiation Oncology at [address] [address] 05/11/2024 11:30 AM EST Scheduled View Only Radiation Oncology at [address] [phone] 01/13/2025 1:00 PM EST Office Visit Hematology/Oncology at [address] [address] Lee Ann Jay MD [facility] DR HEMATOLOGY [place] [address] Leti Anderson APRN [facility] DR HEMATOLOGY [place] [address] documented as of this encounter Procedures Procedure [...] FINAL REPORT Routine 017 9:31 AM EDT [facility] [place] [place]-MACE Routine 01/08/2017 9 :31 AM [...] report acquired (01/08/2017 11:45 AM EDT) Pathologist [facility] Cytogenetics Acquired Report Final Report ?[id number] Specimen Type: Bone Marrow Specimen Condition: ~ [...] (Electronic Signature) Verified By: Christiano PONCE, Ph.D., [facility] Director, Cytogenetics [facility] 01/08/2017 11:4 5 AM EDT Radha Cooper APRN HEMATOLOGY ORDERABLE S [facility] [place] [address] * ([facility] MSURG)BONE MARROW ASP PERFORMED W/BX THRU BX INCISION (01/08/2017 9:45 AM EDT) Narrative Radha Cooper, JAYLEN - 01/08/2017 9:45 AM EDT Radha Cooper APRN ? 01/08/2017 ??9:45 AM BONE MARROW BIOPSY AND ASPIRATION PROCEDURE NOTE Bone Marrow Biopsy & Aspiration with Conscious Sedation - Unilateral Date/Time of Procedure: 01/08/2017 Proceduralist: Radha Cooper, RN, MS, SENIOR FIELD SERVICE ENGINEER DIAGNOSIS: neutropenia Pre-Procedure: (x) Consent signed and [...] (01/08/2017 9:45 AM EDT) Narrative Radha Cooper, CRYPTOZOOLOGIST - 01/08/2017 9:45 AM EDT Radha Cooper, CRYPTOZOOLOGIST ? 01/08/2017 ??9:45 AM BONE MARROW BIOPSY AND ASPIRATION PROCEDURE NOTE Bone Marrow Biopsy & Aspiration with Conscious Sedation - Unilateral Date/Time of Procedure: 01/08/2017 Proceduralist: Radha Cooper, RN, MS, SENIOR FIELD SERVICE ENGINEER DIAGNOSIS: neutropenia Pre-Procedure: (x) Consent signed and [...] Report (01/08/2017 9:31 AM EDT) Final Diagnosis [id number] ? Location: [facility] The signing pathologist has (i) examined the relevant preparation(s) for the specimen(s) and (ii) rendered or confirmed the diagnosis(es). . ? Final Integrated Report INTEGRATED DIAGNOSIS Patient: ??[id number] ?? LETI [place] [address] == SPECIMEN RESULTS == 1. Normocellular marrow [...] cell population or increase in blasts detected. [place] FLOW REPORT for NK/LGL analysis : NORMAL . No monotypic B-cell population, phenotypically aberrant T-cell population or increase in blasts identified. T-cells/ NK-cells: ?Normal phenotype by CD2, CD3, CD4, CD45, ? CD5, CD7, CD8, CD16, CD56, CD57, CD94, NKG2a, and TCR-gamma/delta. KIR panel: ?No monotypic, normal pattern of IZ912q, TE854f, and BA138c (p70). Molecular genetic analysis: ? T CELL [...] and additional study details. Electronically signed by: ??Joanne PONCE, Shad Verified: ??03/18/2017 ?Hematopathologist Performed at: ??-[facility] Dept. of Pathology, [place], [place] ?Molecular Genetics RESULTS ? T CELL RECEPTOR GENE REARRANGEMENT BY PCR INDICATION FOR STUDY: ?? Neutropenia ?LGL; Assess clonality. ANALYSIS: ?? Examination of isolated DNA for rearrangement of the T cell receptor genes by polymerase chain reaction (PCR). SAMPLE: ?? 01/08/2017 - bone marrow ?? [[id number]] [MG [id number]] METHODS: ??DNA was isolated, after cell lysis, from formalin-fixed paraffin embedded tissue. ??PCR was performed using [employer] ??'s TCR Beta gene clonality assay (primer mixes TBA, TBB, TBC), and TCR Gamma gene clonality assay (primer mixes TGA and TGB). ??Fluorescently labeled PCR products were using the [employer] 3500 capillary electrophoresis system. RESULTS: ??The appropriate [...] study (Miguelangel et. al. Leukemia. ??2002; 17 (12):3908-4465), the Six3ribe B cell IgH gene rearrangement assay was [...] [facility] [place] Dept. of [place], [place], [place] ? Bone Marrow Final DIAGNOSIS 1. Normocellular marrow with normal trilineage hematopoesis, with minor CD8+ T-cell interstitial infiltrate (5% of marrow) 2. Neutropenia, increased large granular lymphocytes, peripheral blood . DIAGNOSIS 3. NK clonality studies pending. Electronically signed by: ??Shad Rubio MD Verified: ??01/11/2017 ?Hematopathologist Performed at: ??-[facility] Dept. of Pathology, [place], [place] DISCUSSION The findings are suspicious ??but not diagnostic for ?Large Granular lymphocytic Leukemia . The T lymphocytes are CD8 dominant, but do not show aberrancy by flow analysis. NK cells are not interrogated for clonality by our studies and clonality studies ( KIR assessment by flow ) are being pursued at the [facility]. Should cytopenias persist , it may be [...] [facility] [place] Dept. [place], [place], [place] DISCUSSION Blasts based on CD45 expression and orthogonal light scatter, are not increased. The T-lymphocytes, CD56+ NK cells and B- lymphocytes comprise approx 69%, 30%, 2% of the gated population, respectively. The CD19 positive B-cells have a polytypic expression of surface immunoglobulin light chain ([place]:Lambda ratio at 1.6). The T-cells are an admixture of CD4+ and CD8+ T lymphocytes (ratio of 0.6). No loss or atypical intensity distributions are seen for any shankar T antigen (CD2, 3, 4+8, 5, 7). There is no increase in ST58-vknkthqi/CD3-n eg NK cells or CD3+CD16+ aberrant T cells. Flow analysis is an ancillary study. A definite diagnosis requires correlation with the morphologic features of this process and if necessary, correlation with other ancillary studies like immunohistochemistr y, enzyme cytochemistry and/or cyto/ molecular genetics. This test was developed and its performance characteristics determined by the Clinical Flow Cytometry Laboratory at [facility]. It has not [...] high complexity clinical laboratory testing. SPECIMEN PROCESSING [id number] Cells for immunophenotypic analysis were derived from bone marrow aspirate. ??CD45 vs side scatter gating was utilized to identify a lymphoid analysis region that comprises approximately 13-15% of all cells. The following markers were assessed: CD2, CD3, CD4, CD5, CD7, CD8, CD10, CD16, CD19, CD45, CD56, CD57, kappa light chain, and lambda light chain. CLINICAL INFORMATION neutropenia 03/18/2017 5:14 PM EST [facility] BONE MARROW STRUCTURE / Unknown 01/08/2017 9:31 AM EDT 01/08/2017 9:31 AM EDT Radha Cooper CRYPTOZOOLOGIST PATHOLOGY/CYTOLOGY O RDERABLES [facility] [place] [address] * [place] Mace Test-Mace (01/08/2017 9:31 AM EDT) [place] Mace Test ?Result ? Flag ??Unit ??RefValue [...] reagent. ?Its performance characteristics were determined by [facility] in a manner consistent with CLIA [...] KIR panel: ??No monotypic, normal pattern ?of UI917i, GG420m, and RU624w (p70). ?Quality assessment: ??Specimen received within validated ?guidelines. ??Microscopic Description ? SEE COMMENTS ?A Spnfqv-Bmgqiy-jpkodp d slide prepared from the flow ?cytometry specimen is examined. ??The specimen contains ?maturing hematopoietic precursors. ??No morphologic features ?of acute leukemia, lymphoma or a plasma cell proliferative ?disorder are identified. ?Test Performed by: ?[facility] ?[address] LABORATORY Blood specimen (specimen) Venous Draw / Unknown 01/08/2017 9:31 AM EDT 01/09/2017 3:59 PM EDT Narrative Resulting Agency Comment Spec In Lab Radha Cooper APRN LAB SEND OUT ORDERAB LES Performing Organization Address [facility] de Phone Number [facility] [place] [address] * Myeloid Seq Panel (01/08/2017 9:31 AM EDT) Bone marrow specimen (specimen) 01/08/2017 9:31 AM EDT 01/10/2017 6:43 AM EDT Narrative Resulting Agency Comment Spec In Lab Radha Cooper APRN CHEMISTRY ORDERABLES Performing Organization Address [facility] Co de Phone Number [facility] [place] [address] * Immunophenotyping Flow Cytometry (01/08/2017 9:31 AM EDT) Immunophenotyping Flow See Comment [facility] Comment: When completed by the Pathologist, the Flow Cytometry Report ([id number]) will display under the Pathology Results section within eD. Bone marrow specimen (specimen) 01/08/2017 9:31 AM EDT 01/08/2017 10:11 AM EDT Narrative Resulting Agency Comment Spec In Lab Radha Cooper APRN HEMATOLOGY ORDERABLE S Performing Organization Address [facility] Co de Phone Number [facility] [place] [address] * Iron Stain, Bone Marrow (01/08/2017 9:31 AM EDT) Bone Marrow Iron Stain See Comment [facility] Comment:See Bone Marrow Repo rt [id number] under Hematopathology Reports. Bone marrow specimen (specimen) 01/08/2017 9:31 AM EDT 01/08/2017 10:11 AM EDT Narrative Resulting Agency Comment Spec In Lab Radha Pintoal CRYPTOZOOLOGIST HEMATOLOGY ORDERABLE S [facility] [place] [address] * Scan, Peripheral Blood (01/08/2017 8:56 AM EDT) Pathologist [facility] Plat estimate Normal [facility] RBC Morphology Normal [facility] Blood specimen (specimen) 01/08/2017 8:56 AM EDT 01/08/2017 10:11 AM EDT Narrative Resulting Agency Comment Spec In Lab Radha Pintomoon CRYPTOZOOLOGIST HEMATOLOGY ORDERABLE S Performing Organization Address City/[facility]/ZIP Co de Phone Number [facility] [place] [address] * (ABNORMAL) Differential, Automated (01/08/2017 8:56 AM EDT) [facility] Neutrophil % 10.4 % [facility] Neutrophil Absolute 0.21(Crit ical) 1.70 - 6.10 x10(3)/mc L [facility] Comment: This result has been called to ELIZABETH SALGADO by Mckay Rodriguez on 01 08 2017 at 1049, and has been read back. Lymph % 65.2 % [facility] Lymphocytes Abs 1.3 0.9 - 3.2 x10(3)/mc L [facility] Monocyte % 18.4 % [facility] Monocyte Abs 0.4 0.3 - 0.9 x10(3)/mc L [facility] Eos % 0.5 % [facility] Eosinophils Abs 0.0 0.0 - 0.4 x10(3)/mc L [facility] Basophil % 0.5 % [facility] Baso Absolute 0.0 0.0 - 0.1 x10(3)/mc L [facility] Immature Gran % 5.00 % [facility] Comment: Immature granulocytes(IG's)percentage and absolute count will include metamyelocytes, myelocytes, and promyelocytes. Blood smears from CBCs yielding IG's will be scanned manually for concordance. If this scan disagrees with the automated IG or if promyelocytes are noted, a manual differential will be performed. Immature Gran Absolute 0.10(H) 0.00 - 0.04 x10(3)/mc L [facility] Blood specimen (specimen) 01/08/2017 8:56 AM EDT 01/08/2017 10:11 AM EDT Narrative Resulting Agency Comment Spec In Lab Radha Cooper CRYPTOZOOLOGIST HEMATOLOGY ORDERABLE S [facility] [place] [address] * (ABNORMAL) Hemogram (01/08/2017 8:56 AM EDT) White Blood Cell 2.0(L) 4.0 - 9.5 x10(3)/mc L [facility] Red Blood Cell 4.55 4.00 - 5.21 x10(6)/mc L [facility] Hemoglobin 13.3 11.7 - 15.5 gm/dL [facility] Hematocrit 40.9 35.7 - 45.8 % [facility] Mean Cell Volume 89.9 82.6 - 94.4 fL [facility] Mean Cell Hemoglobin 29.2 27.1 - 32.0 pg [facility] Mean Cell Hemoglobin Concentration 32.5 31.7 - 35.0 gm/dL [facility] Platelet 183 145 - 357 x10(3)/mc L [facility] RDW Standard Deviation 40.4 37.0 - 46.0 fL [facility] RDW coefficient of variation 12.2 11.5 - 14.1 % [facility] Mean Platelet Volume 10.2 7.6 - 12.9 fL [facility] NRBC% auto 0.0 % [facility] NRBC Absolute 0.000 0.000 - 0.000 x10(3)/mc L [facility] Blood specimen (specimen) 01/08/2017 8:56 AM EDT 01/08/2017 10:11 AM EDT Narrative Resulting Agency Comment Spec In Lab Radha Cooper CRYPTOZOOLOGIST HEMATOLOGY ORDERABLE S [facility] [place] [address] documented in this encounter Visit Diagnoses Not [...] 09 (Given - Provid er: Gracy Garcias RN)930 (Given - Provider: Gracy Koes I, RN) lidocaine (XYLOCAINE) 10 mg/mL (1 %) [...] (Maximum dose 5 mg)., Intra-Operative (Intra-Procedure), Routine 920 (Given - Provid er: Gracy Gacrias RN)925 (Given - Provider: Gracy Garcias RN) naloxone [...] (Due) documented in this encounter Care Teams Shipping Room Helper Relationship Specialty Start Date End Date Julia Chatterjee MD [facility] KINA FELIZ [facility] [address] [place] [address] PCP - General 01/31/10 documented as of this encounter
--- OUTSIDE RECORDS SUMMARY | 2024-04-17 01:27 | XMS_ITS | Encounter Summary ---
Author Organization [facility] Address [address] [place] [address] Care Team Providers Care Instructional Support Services Director Name Role Phone Juila Chatterjee MD Primary Care Provider [phone] Encounter Details Date Type Department Care Team (Late st Contact Info) Description 12/03/2019 Lab Requisition [facility] Pathology & Laboratory Medicine - [address] [phone] Outr Resulting Lab, Provider Social History Tobacco Use Types Packs/Day Years Used Date Smoking Tobacco: Never Assessed Interpersonal Safety Answer Date Record ed Physically Hurt Never 10/11/2019 Verbally Threaten Not on file 10/11/2019 Comments Unknown Sex and Gender Information Value Date Recorded Sex Assigned at Not on file Legal Sex Female 18:09 EST Gender Identity Not on file Sexual Orientation Not on file documented as of this encounter Plan of Treatment Not on file documented as of this encounter Procedures Procedure Name Priority Date/Time Associated Diagnosis Comments HOMOCYSTEINE Routine 12/03/2019 9:56 EDT documented in this encounter Results * HOMOCYSTEINE (12/03/2019 9:56 EDT) Homocysteine 13.2 5.0 - 13.9 umol/L 12/04/2019 8:44 EDT [facility] Blood VENOUS BLOOD / Unknown 12/03/2019 9:56 EDT 12/03/2019 16:04 EDT Narrative [facility] - 12/04/2019 8:44 EDT Reference range may not apply to non-fasting samples. ??It is not recommended that EDTA plasma and serum from the same patient be used interchangeably. ??Serum concentrations have been observed to be up to 10% higher than EDTA plasma. Reference range may not apply to serum results. us Provider Outr Resulting Lab CHEMISTRY & BLOOD GA S ORDERABLES Final Result Performing Organization Address City/State/[facility] Co de Phone Number [facility] [address] [place] [address] documented in this encounter Visit Diagnoses Not on filedocumented in this encounter Care Teams Instructional Support Services Director Relationship Specialty Start Date End Date Julia Chatterjee MD [address] [place] [phone] PCP - General 08/13/19 documented as of this encounter
--- OUTSIDE RECORDS SUMMARY | 2024-04-17 01:27 | XMS_ITS | Encounter Summary ---
Author Organization [facility] Address [facility] [place] [address] Care Team Providers Care Fire Alarm Dispatcher Name Role Phone Julia Chatterjee MD Primary Care Provider [phone] Encounter Details Date Type Department Care Team (Late st Contact Info) Description 07/05/2011 10:00 AM EDT - 07/05/2011 11:00 AM EDT Surgery [place] [address] Ayaz aCstro MD [facility] [place] [address] COLONOSCOPY FLEXIBLE, WITH BX (WRVU 3.56) Social [...] occurs please contact your M.D. Please call [phone] before 5 pm with problems, questions or concerns. After 5pm call [phone] and ask to speak with the supervisor pumping infusion nurse. Discharge instructions reviewed with patient who expresses understanding. * Patient Instructions* Ayaz Castro MD - 07/05/2011 10:24 AM EDT Please [...] of this encounter H&P Notes * Ayaz Castro MD - 07/05/2011 10:23 AM EDT Gastroenterology [...] Scheduled View Only Radiation Oncology at [address] [phone] 04/20/2024 12:45 PM EST Scheduled View Only Radiation Oncology at [address] [address] 04/21/2024 10:45 AM EST Scheduled View Only Radiation Oncology at [address] [address] 04/21/2024 11:00 AM EST Office Visit Radiation Oncology at [address] [address] Radha Casiano MD [facility] [place] [address] 04/22/2024 3:00 PM EST Scheduled View Only Radiation Oncology at [address] [address] 04/23/2024 3:00 PM EST Scheduled View Only Radiation Oncology at [address] [address] 04/24/2024 3:00 PM EST Scheduled View Only Radiation Oncology at [address] [address] 04/27/2024 11:15 AM EST Scheduled View Only Radiation Oncology at [address] [address] 04/28/2024 11:30 AM EST Scheduled View Only Radiation Oncology at [address] [address] 04/28/2024 12:00 PM EST Office Visit Radiation Oncology at [address] [address] Radha Casiano MD [facility] [place] [address] 04/28/2024 2:00 PM EST Office Visit Cardiology at [address] [place] [address] Letty Montejo APRN [facility] [place] [address] 04/29/2024 11:15 AM EST Scheduled View Only Radiation Oncology at [address] [address] 04/30/2024 11:30 AM EST Scheduled View Only Radiation Oncology at [address] [address] 05/01/2024 11:15 AM EST Scheduled View Only Radiation Oncology at [address] [address] 05/04/2024 10:45 AM EST Scheduled View Only Radiation Oncology at [address] [address] 05/05/2024 1:00 PM EST Scheduled View Only Radiation Oncology at [address] [address] 05/05/2024 1:15 PM EST Office Visit Radiation Oncology at [address] [address] Radha Casiano MD [facility] [place] [address] 05/06/2024 1:00 PM EST Scheduled View Only Radiation Oncology at [address] [address] 05/07/2024 1:00 PM EST Scheduled View Only Radiation Oncology at [address] [address] 05/08/2024 1:00 PM EST Scheduled View Only Radiation Oncology at [address] [address] 05/11/2024 11:30 AM EST Scheduled View Only Radiation Oncology at [address] [address] 01/13/2025 1:00 PM EST Office Visit Hematology/Oncology at [address] [address] Lee Ann Jay MD [facility] [address] [place] [address] Leti Anderson APRN [facility] [place] [address] documented as of this encounter Procedures Procedure [...] [facility] ? Provider: ?? AYAZ CASTRO ?Pt. Name: ?? LETI PARRY ? Acc #: ?[id number] ?Pt. ? Col Date: ?? 07/05/2011 ? [...] [facility] ? Provider: ?? AYAZ CASTRO ?Pt. Name: ?? LETI PARRY ? Acc #: ?[id number] ?Pt. ? Col Date: ?? 07/05/2011 ? [...] SCHULTZIUM 07/05/2011 12:2 1 PM EDT Ayaz Castro MD PATHOLOGY/CYTOLOGY O OMI Performing Organization Address [facility] de Phone Number RUEL SERNA * Specimen to Pathology (surgical or derm) (07/05/2011 10:53 AM EDT) AP Specimen 07/05/2011 10:5 3 AM EDT 07/05/2011 10:53 AM EDT Narrative RUEL SCHULTZIUM - 07/05/2011 10:53 AM EDT Specimen requisition ordered. ??Separate Pathology report to follow Ayaz Castro MD PATHOLOGY/CYTOLOGY O OMI Performing Organization Address [facility] de Phone Number RUEL SERNA * Specimen to Pathology (surgical or derm) (07/05/2011 10:53 AM EDT) AP Specimen 07/05/2011 10:5 3 AM EDT 07/05/2011 10:53 AM EDT Narrative RUEL SCHULTZIUM - 07/05/2011 10:53 AM EDT Specimen requisition ordered. ??Separate Pathology report to follow Ayaz Castro MD PATHOLOGY/CYTOLOGY O OMI Performing Organization Address [facility] de Phone Number RUEL SERNA * Specimen to Pathology (surgical or derm) (07/05/2011 10:53 AM EDT) AP Specimen 07/05/2011 10:5 3 AM EDT 07/05/2011 10:53 AM EDT Narrative RUEL SCHULTZIUM - 07/05/2011 10:53 AM EDT Specimen requisition ordered. ??Separate Pathology report to follow Ayaz Castro MD PATHOLOGY/CYTOLOGY O OMI RUEL SERNA * COLONOSCOPY (07/05/2011 9:57 AM EDT) COLONOSCOPY [facility] Endoscopy Patient Name: Leti Parry ? Procedure Date: 07/05/2011 9:57 AM ? Date of : 1950 ? Age: 60 ? Order #: [id number] ? Procedure: ? Colonoscopy Indications: ? Screening for colorectal malignant ? neoplasm, Asymptomatic Providers: ? Ayaz Castro MD, Venkatesh Knight, ? RN, Manisha Palmer, Underwriter Solicitation Director Referring MD: ?Julia Chatterjee MD Medicines: ? [...] enemas or Canasa supp ? __ Ayaz Castro MD 07/05/2011 11:01 AM ? Number of [...] RN) documented in this encounter Care Teams Fire Alarm Dispatcher Relationship Specialty Start Date End Date Julia Chatterjee MD [facility] [address] [place] [address] PCP - General 01/31/10 documented as of this encounter
--- OUTSIDE RECORDS SUMMARY | 2024-04-17 01:27 | XMS_ITS | Encounter Summary ---
Author Organization [facility] Address [facility] [place] [address] Care Team Providers Care Registered Nurse Supervisor Name Role Phone Julia Chatterjee MD Primary Care Provider [phone] Reason for Visit * Reason Comments Follow-up Encounter Details Date Type Department Care Team (Late st Contact Info) Description 07/16/2011 10:00 AM EDT Follow-[place] [address] Ayaz Nelson MD [facility] [place] [address] Colitis (Primary Dx) Discharge Disposition: Home Social [...] then gets loose. She also sees a mutuel department manager and is off gluten and milk. She [...] Scheduled View Only Radiation Oncology at [address] [address] 04/20/2024 12:45 PM EST Scheduled View Only Radiation Oncology at [address] [address] 04/21/2024 10:45 AM EST Scheduled View Only Radiation Oncology at [address] [address] 04/21/2024 11:00 AM EST Office Visit Radiation Oncology at [address] [address] Radha Casiano MD [facility] [place] [address] 04/22/2024 3:00 PM EST Scheduled View Only Radiation Oncology at [address] [address] 04/23/2024 3:00 PM EST Scheduled View Only Radiation Oncology at [address] [address] 04/24/2024 3:00 PM EST Scheduled View Only Radiation Oncology at [address] [address] 04/27/2024 11:15 AM EST Scheduled View Only Radiation Oncology at [address] [address] 04/28/2024 11:30 AM EST Scheduled View Only Radiation Oncology at [address] [address] 04/28/2024 12:00 PM EST Office Visit Radiation Oncology at [address] [address] Radha Casiano MD [facility] [place] [address] 04/28/2024 2:00 PM EST Office Visit Cardiology at [address] [address] Letty Montejo APRN [facility] [place] [address] 04/29/2024 11:15 AM EST Scheduled View Only Radiation Oncology at [address] [address] 04/30/2024 11:30 AM EST Scheduled View Only Radiation Oncology at [address] [address] 05/01/2024 11:15 AM EST Scheduled View Only Radiation Oncology at [address] [address] 05/04/2024 10:45 AM EST Scheduled View Only Radiation Oncology at [address] [address] 05/05/2024 1:00 PM EST Scheduled View Only Radiation Oncology at [address] [address] 05/05/2024 1:15 PM EST Office Visit Radiation Oncology at [address] [address] Radha Casiano MD [facility] [place] [address] 05/06/2024 1:00 PM EST Scheduled View Only Radiation Oncology at [address] [address] 05/07/2024 1:00 PM EST Scheduled View Only Radiation Oncology at [address] [address] 05/08/2024 1:00 PM EST Scheduled View Only Radiation Oncology at [address] [address] 05/11/2024 11:30 AM EST Scheduled View Only Radiation Oncology at [address] [address] 01/13/2025 1:00 PM EST Office Visit Hematology/Oncology at [address] [address] Lee Ann Jay MD [facility] [place] [address] Leti Anderson APRN [facility] [place] [address] documented as of this encounter Procedures Procedure [...] EDT Ayaz Nelson MD HEMATOLOGY ORDERABLE S Performing Organization Address [facility] Co de Phone Number [facility] UI RobotIUM * Tissue transglutaminase, IgA (07/16/2011 11:13 AM EDT) Pathologist [facility] TTG IgA Ab <4.0 <=3.9 u/ml CERNER MILLENNIUM Comment: Result Interpretation: Negative: ?<4 U/mL Weak Positive: ??4-10 U/mL Positive: ?>10 U/mL Blood specimen (specimen) 07/16/2011 11:13 AM EDT 07/16/2011 2:23 PM EDT Narrative Resulting Agency Comment Spec In Lab Ayaz Nelson MD IMMUNOLOGY ORDERABLE S Performing Organization Address [facility] de Phone Number CERNER HandpressionsENNIUM * (ABNORMAL) Comprehensive metabolic panel (non-fasting) (07/16/2011 11:13 AM EDT) Pathologist [facility] Glucose 93 60 - 199 mg/dL CERNER [...] diabetic kidney disease. References: http://nkdep.nih.gov/resources/NKDEP_Suggestn4Labs_0606_508.pdf http://www.kidney.org/professionals/kls/pdf/faq_gfr.pdf Sunday Graves, Albina NA, Arnulfo AK, Tripp TS, Lyndsay AD, Anthony DIMPLE. Relative performance of the MDRD and CKD-EPI equations for estimating glomerular filtration rate among patients with varied clinical presentations. Clin J Am Soc Nephrol;6:1963-72. Blood specimen (specimen) 07/16/2011 11:13 AM EDT 07/16/2011 11:16 AM EDT Narrative Resulting Agency Comment Spec In Lab Ayaz Nelson MD CHEMISTRY ORDERABLES CERYRN BLANDONENNIUM * CBC (with Diff) (07/16/2011 11:13 AM [...] Lab Ayaz Nelson MD HEMATOLOGY ORDERABLE S RUEL SERNA documented in this encounter Visit Diagnoses Diagnosis Colitis- Primary Other and unspecified noninfectious gastroenteritis and colitis documented in this encounter Care Teams Registered Nurse Supervisor Relationship Specialty Start Date End Date Julia Chatterjee MD [facility] [address] [place] [address] PCP - General 01/31/10 documented as of this encounter
--- OUTSIDE RECORDS SUMMARY | 2024-04-17 01:27 | XMS_ITS | Encounter Summary ---
Author Organization [facility] Address [address] [place] [address] Care Team Providers Care Director Records Management Name Role Phone Julia Chatterjee MD Primary Care Provider [phone] Encounter Details Date Type Department Care Team (Late st Contact Info) Description 01/09/2022 Lab Requisition [facility] Pathology & Laboratory Medicine - [address] [address] Outr Resulting Lab, Provider Social History Tobacco [...] C Antibody Negative Negative 01/09/2022 20:[address] [facility] Blood VENOUS BLOOD / Unknown 01/08/2022 7:39 EDT 01/09/2022 17:25 EDT us Provider Outr Resulting Lab CHEMISTRY & BLOOD GA S ORDERABLES Final Result [facility] [address] [place] [address] documented in this encounter Visit Diagnoses Not on filedocumented in this encounter Care Teams Director Records Management Relationship Specialty Start Date End Date Julia Chatterjee MD [address] [place] [phone] PCP - General 08/13/19 documented as of this encounter
--- OUTSIDE RECORDS SUMMARY | 2024-04-17 01:27 | XMS_ITS | Encounter Summary ---
Author Organization [facility] [place] [address] Care Team Providers Care Unit Manager Name Role Phone Julia Chatterjee MD Primary Care Provider [phone] Encounter Details Date Type Department Care Team (Late st Contact Info) Description 07/12/2016 Telephone Hematology [place] [phone] Mk Feliciano MD [facility] DR HEMATOLOGY/[place] [address] Social History Tobacco Use Types Packs/Day Years [...] gm/dL 1.21 M1 Band Unknown None Detected Racetrack Free Light Chains Latest Ref Range: 0.33 - 1.94 mg/dL 1.66 Lambda Free Light Chains Latest Ref Range: 0.57 - 2.63 mg/dL 1.54 Racetrack/Lambda Free Light Chain Ratio Latest Ref Range: [...] Scheduled View Only Radiation Oncology at [address] [address] 04/20/2024 12:45 PM EST Scheduled View Only Radiation Oncology at [address] [address] 04/21/2024 10:45 AM EST Scheduled View Only Radiation Oncology at [address] [address] 04/21/2024 11:00 AM EST Office Visit Radiation Oncology at [address] [address] Radha Casiano MD [facility] [place] [address] 04/22/2024 3:00 PM EST Scheduled View Only Radiation Oncology at [address] [address] 04/23/2024 3:00 PM EST Scheduled View Only Radiation Oncology at [address] [address] 04/24/2024 3:00 PM EST Scheduled View Only Radiation Oncology at [address] [address] 04/27/2024 11:15 AM EST Scheduled View Only Radiation Oncology at [address] [address] 04/28/2024 11:30 AM EST Scheduled View Only Radiation Oncology at [address] [address] 04/28/2024 12:00 PM EST Office Visit Radiation Oncology at [address] [address] Radha Casiano MD [facility] [place] [address] 04/28/2024 2:00 PM EST Office Visit Cardiology at [address] [place] [address] Letty Montejo APRN [facility] [place] [address] 04/29/2024 11:15 AM EST Scheduled View Only Radiation Oncology at [address] [address] 04/30/2024 11:30 AM EST Scheduled View Only Radiation Oncology at [address] [address] 05/01/2024 11:15 AM EST Scheduled View Only Radiation Oncology at [address] [address] 05/04/2024 10:45 AM EST Scheduled View Only Radiation Oncology at [address] [address] 05/05/2024 1:00 PM EST Scheduled View Only Radiation Oncology at [address] [address] 05/05/2024 1:15 PM EST Office Visit Radiation Oncology at [address] [address] Radha Casiano MD [facility] [place] [address] 05/06/2024 1:00 PM EST Scheduled View Only Radiation Oncology at [address] [address] 05/07/2024 1:00 PM EST Scheduled View Only Radiation Oncology at [address] [address] 05/08/2024 1:00 PM EST Scheduled View Only Radiation Oncology at [address] [address] 05/11/2024 11:30 AM EST Scheduled View Only Radiation Oncology at [address] [address] 01/13/2025 1:00 PM EST Office Visit Hematology/Oncology at [address] [address] Lee Ann Jay MD [facility] DR HEMATOLOGY [place] [address] An Anderson APRN [facility] DR HEMATOLOGY [place] [address] documented as of this encounter Visit Diagnoses Not on filedocumented in this encounter Care Teams Unit Manager Relationship Specialty Start Date End Date Julia Chatterjee MD [address] [place] [address] PCP - General 01/31/10 documented as of this encounter
--- OUTSIDE RECORDS SUMMARY | 2024-04-17 01:27 | XMS_ITS | Encounter Summary ---
Author Organization Formerly [facility], [facility] Address [facility] [place] [address] Care Team Providers Care Double Head Machine Operator Name Role Phone Julia Chatterjee MD Primary Care Provider [phone] Encounter Details Date Type Department Care Team (Latest Contact Info) Description 07/09/2016 11:52 AM EDT - 07/09/2016 11:59 PM EDT Hospital Encounter [place]ology [place] [address] Leukopenia, unspecified type Discharge Disposition: Home Social [...] Department Care Team ( Contact Info) Description 04/17/2024 2:30 PM EST Scheduled View Only Radiation Oncology at [address] [address] 04/20/2024 12:45 PM EST Scheduled View Only Radiation Oncology at [address] [address] 04/21/2024 10:45 AM EST Scheduled View Only Radiation Oncology at [address] [address] 04/21/2024 11:00 AM EST Office Visit Radiation Oncology at [address] [address] Radha Casiano MD [facility] [place] [address] 04/22/2024 3:00 PM EST Scheduled View Only Radiation Oncology at [address] [address] 04/23/2024 3:00 PM EST Scheduled View Only Radiation Oncology at [address] [address] 04/24/2024 3:00 PM EST Scheduled View Only Radiation Oncology at [address] [address] 04/27/2024 11:15 AM EST Scheduled View Only Radiation Oncology at [address] [address] 04/28/2024 11:30 AM EST Scheduled View Only Radiation Oncology at [address] [address] 04/28/2024 12:00 PM EST Office Visit Radiation Oncology at [address] [address] Radha Casiano MD [facility] [place] [address] 04/28/2024 2:00 PM EST Office Visit Cardiology at [address] [place] [address] Letty Montejo APRN [facility] [place] [address] 04/29/2024 11:15 AM EST Scheduled View Only Radiation Oncology at [address] [address] 04/30/2024 11:30 AM EST Scheduled View Only Radiation Oncology at [address] [address] 05/01/2024 11:15 AM EST Scheduled View Only Radiation Oncology at [address] [address] 05/04/2024 10:45 AM EST Scheduled View Only Radiation Oncology at [address] [address] 05/05/2024 1:00 PM EST Scheduled View Only Radiation Oncology at [address] [address] 05/05/2024 1:15 PM EST Office Visit Radiation Oncology at [address] [address] Radha Casiano MD [facility] DR RADIATION [place] [address] 05/06/2024 1:00 PM EST Scheduled View Only Radiation Oncology at [address] [address] 05/07/2024 1:00 PM EST Scheduled View Only Radiation Oncology at [address] [address] 05/08/2024 1:00 PM EST Scheduled View Only Radiation Oncology at [address] [address] 05/11/2024 11:30 AM EST Scheduled View Only Radiation Oncology at [address] [phone] 01/13/2025 1:00 PM EST Office Visit Hematology/Oncology at [address] [phone] Lee Ann Jay MD [facility] HEMATOLOGY [place] [address] Leti Anderson APRN [facility] HEMATOLOGY [place] [address] documented as of this encounter Procedures Procedure [...] 12:00 PM EDT) Neutrophil % 30.9 % [facility] Neutrophil Absolute 0.64(L) 1.70 - 6.10 x10(3)/ L [facility] Lymph % 58.9 % [facility] Lymphocytes Abs 1.2 0.9 - 3.2 x10(3)/ L [facility] Monocyte % 9.7 % [facility] Monocyte Abs 0.2(L) 0.3 - 0.9 x10(3)/mc L [facility] Eos % 0.5 % [facility] Eosinophils Abs 0.0 0.0 - 0.4 x10(3)/ L [facility] Basophil % 0.0 % [facility] Baso Absolute 0.0 0.0 - 0.1 x10(3)/ L [facility] Immature Gran % 0.00 % [facility] Comment: Immature granulocytes(IG's)percentage and absolute count will include metamyelocytes, myelocytes, and promyelocytes. Blood smears from CBCs yielding IG's will be scanned manually for concordance. If this scan disagrees with the automated IG or if promyelocytes are noted, a manual differential will be performed. Immature Gran Absolute 0.00 0.00 - 0.04 x10(3)/mc L [facility] Blood specimen (specimen) 07/09/2016 12:00 PM EDT 07/09/2016 12:09 PM EDT Narrative Resulting Agency Comment Spec In Lab Lee Ann Jay MD HEMATOLOGY ORDER ASHLEY Performing Organization Address City/[facility]/ZIP Co de Phone Number [facility] [place] [address] * (ABNORMAL) Hemogram (07/09/2016 12:00 PM EDT) White Blood Cell 2.1(L) 4.0 - 9.5 x10(3)/mc L [facility] Red Blood Cell 4.85 4.00 - 5.21 x10(6)/mc L [facility] Hemoglobin 13.8 11.7 - 15.5 gm/dL [facility] Hematocrit 42.7 35.7 - 45.8 % [facility] Mean Cell Volume 88.0 82.6 - 94.4 fL [facility] Mean Cell Hemoglobin 28.5 27.1 - 32.0 pg [facility] Mean Cell Hemoglobin Concentration 32.3 31.7 - 35.0 gm/dL [facility] Platelet 211 145 - 357 x10(3)/mc L [facility] RDW Standard Deviation 40.5 37.0 - 46.0 [facility] RDW coefficient of variation 12.5 11.5 - 14.1 % [facility] Mean Platelet Volume 10.1 7.6 - 12.9 fL [facility] NRBC% auto 0.0 % [facility] NRBC Absolute 0.000 0.000 - 0.000 x10(3)/mc L [facility] Blood specimen (specimen) 07/09/2016 12:00 PM EDT 07/09/2016 12:09 PM EDT Narrative Resulting Agency Comment Spec In Lab Lee Ann Jay MD HEMATOLOGY ORDER ASHLEY Performing Organization Address City/[facility]/ZIP Co de Phone Number [facility] [place] [address] * Hepatitis B Surface Antigen (07/09/2016 12:00 PM EDT) Hepatitis B Surface Antigen Negative Negative [facility] Blood specimen (specimen) 07/09/2016 12:00 PM EDT 07/09/2016 12:09 PM EDT Narrative Resulting Agency Comment Spec In Lab Lee Ann Jay MD CHEMISTRY ORDERA BLES [facility] [place] [address] * Hepatitis B Core Antibody, Total (07/09/2016 12:00 PM EDT) Hepatitis B Core Antibody Negative Negative [facility] Blood specimen (specimen) 07/09/2016 12:00 PM EDT 07/09/2016 12:09 PM EDT Narrative Resulting Agency Comment Spec In Lab Lee Ann Jay MD CHEMISTRY ORDERA BLES Performing Organization Address City/[facility]/ZIP Co de Phone Number [facility] [place] [address] * Hepatitis C Antibody (07/09/2016 12:00 PM EDT) Hepatitis C Antibody Negative Negative [facility] Comment: An updated Hepatitis C Ab assay reagent was implemented on 05/23/16. Please contact Dr. Alfaro at [phone] with any questions or concerns. Blood specimen (specimen) 07/09/2016 12:00 PM EDT 07/09/2016 12:09 PM EDT Narrative Resulting Agency Comment Spec In Lab Lee Ann Jay MD CHEMISTRY ORDERA BLES [facility] [place] [address] * HIV-1 RNA, quantitative, PCR (07/09/2016 12:00 PM EDT) Pathologist [facility] HIV Viral Load Result * RESULT: <20 copies/mL (Target Not Detected)* [...] Administration. Arash Roland, Ph.D. Director, Molecular Pathology [facility] Comment: [VERIFIED DATE]07.13.16 Verified By:Meeta Patrick (Electronic Signature) Blood specimen (specimen) 07/09/2016 12:00 PM EDT 07/12/2016 2:01 PM EDT Narrative Resulting Agency Comment Spec In Lab Lee Ann Jay MD MOLECULAR ORDERA BLEPierce Performing Organization Address City/[facility]/ZIP Co de Phone Number [facility] [place] [address] * Immunoglobulins, Quantitative (07/09/2016 12:00 PM EDT) [facility] IgG 1,468 700 - 1,600 mg/dL [facility] IgA 238 70 - 400 mg/dL [facility] IgM 114 40 - 230 mg/dL [facility] Blood specimen (specimen) 07/09/2016 12:00 PM EDT 07/09/2016 12:09 PM EDT Narrative Resulting Agency Comment Spec In Lab Lee Ann Jay MD CHEMISTRY ORDERA BLES [facility] [place] [address] * Free Light Chains, Serum (07/09/2016 12:00 PM EDT) [facility] [place] Free Light Chains 1.66 0.33 - 1.94 mg/dL [facility] Lambda Free Light Chains 1.54 0.57 - 2.63 mg/dL [facility] [place]/Lambda Free Light Chain Ratio 1.0779 0.2600 - 1.6500 [facility] Blood specimen (specimen) 07/09/2016 12:00 PM EDT 07/09/2016 12:09 PM EDT Narrative Resulting Agency Comment Spec In Lab Lee Ann Jay MD CHEMISTRY ORDERA BLES Performing Organization Address [facility] Co de Phone Number [facility] [place] [address] * Protein Electrophoresis, serum (07/09/2016 12:00 PM EDT) [facility] Total Prot Electrophoresis 7.9 6.1 - 8.0 gm/dL [facility] Albumin Electrophoresis 4.97 3.60 - 6.00 gm/dL [facility] Alpha 1 Globulin 0.17 0.10 - 0.30 gm/dL [facility] Alpha 2 Globulin 0.78 0.40 - 0.90 gm/dL [facility] Beta Globulin 0.77 0.50 - 1.00 gm/dL [facility] Gamma Globulin 1.21 0.50 - 1.30 gm/dL [facility] M1 Band None Detected [facility] Blood specimen (specimen) 07/09/2016 12:00 PM EDT 07/09/2016 12:09 PM EDT Narrative Resulting Agency Comment Spec In Lab Lee Ann Jay MD CHEMISTRY ORDERA BLES Performing Organization Address City/[facility]/ZIP Co de Phone Number [facility] [place] [address] * Immunophenotyping Flow Cytometry (07/09/2016 12:00 PM EDT) Immunophenotyping Flow See Comment [facility] Comment: When completed by the Pathologist, the Flow Cytometry Report ([id number]) will display under the Pathology Results section within eD. Specimen of unknown material (specimen) 07/09/2016 12:00 PM EDT 07/09/2016 12:09 PM EDT Narrative Resulting Agency Comment Spec In Lab Lee Ann Jay MD HEMATOLOGY ORDER ASHLEY [facility] [place] [address] * (ABNORMAL) Comprehensive metabolic panel (non-fasting) (07/09/2016 12:00 PM EDT) Glucose 95 65 - 199 mg/dL [facility] Comment:Diabetes: >=200 mg/d L plus symptoms Blood Urea Nitrogen 17 8 - 18 mg/dL [facility] Creatinine 0.96 0.70 - 1.20 mg/dL [facility] Comment: Please note that the pediatric reference intervals supplied above were not validated at [facility]. Results from pediatric patients should be interpreted in conjunction to the patient's age, height and muscle mass. Sodium 140 135 - 145 mmol/L [facility] Potassium 4.2 3.5 - 5.0 mmol/L [facility] Comment: Please note: ??Patients with WBC >100,000 may have falsely elevated Potassium levels. ??For accurate Potassium quantification in these patients send serum separator tube (gold top) for subsequent determinations. ??Contact the Clinical Chemistry Laboratory if there are any questions. Chloride 100 98 - 107 mmol/L [facility] Carbon Dioxide 28 22 - 31 mmol/L [facility] Anion Gap 12 5 - 15 mmol/L [facility] Calcium 9.7 8.5 - 10.5 mg/dL [facility] Protein, Total 7.9 6.1 - 8.0 gm/dL [facility] Albumin 4.6 3.2 - 5.2 gm/dL [facility] Aspartate Aminotransferase 17 0 - 30 unit/L [facility] Alanine Aminotransferase 14 0 - 30 unit/L [facility] Alkaline Phosphatase 62 40 - 104 unit/L [facility] Bilirubin, Total 0.3 0.2 - 1.3 mg/dL [facility] Bilirubin, Direct 0.1 0.0 - 0.3 mg/dL [facility] Est Glomerular Filtration Rate 59(L) [...] the following links into your internet browser. [email or web address] Blood specimen (specimen) 07/09/2016 12:00 PM EDT 07/09/2016 12:09 PM EDT Narrative Resulting Agency Comment Spec In Lab Lee Ann Jay MD CHEMISTRY ORDERA BLES [facility] [place] [address] * Flow Cytometry Report (07/09/2016 12:00 PM EDT) Flow Cytometry Report [id number] ?Location: 3K The signing pathologist has (i) [...] high complexity clinical laboratory testing. SPECIMEN PROCESSING [id number] Cells for immunophenotypic analysis were derived from [...] requested to evaluate for abnormal lymphocyte populations. [facility] 07/09/2016 12:0 0 PM EDT Mk Feliciano MD PATHOLOGY/CYTOLOGY O RDERABLES [facility] [place] [address] documented in this encounter Visit Diagnoses Diagnosis Leukopenia, unspecified type documented in this encounter Care Teams Double Head Machine Operator Relationship Specialty Start Date End Date Julia Chatterjee MD [address] [place] [address] PCP - General 01/31/10 documented as of this encounter
--- OUTSIDE RECORDS SUMMARY | 2024-04-17 01:27 | XMS_ITS | Encounter Summary ---
Author Organization [facility] [place] [address] Care Team Providers Care Collar Pointer Name Role Phone Julia Chatterjee MD Primary Care Provider [phone] Encounter Details Date Type Department Care Team (Late Contact Info) Description 10/08/2016 Telephone Hematology/Oncology at [address] [phone] Mera Cintron RN Social History Tobacco Use [...] Scheduled View Only Radiation Oncology at [address] [address] 04/20/2024 12:45 PM EST Scheduled View Only Radiation Oncology at [address] [address] 04/21/2024 10:45 AM EST Scheduled View Only Radiation Oncology at [address] [address] 04/21/2024 11:00 AM EST Office Visit Radiation Oncology at [address] [address] Radha Casiano MD [facility] [place] [address] 04/22/2024 3:00 PM EST Scheduled View Only Radiation Oncology at [address] [phone] 04/23/2024 3:00 PM EST Scheduled View Only Radiation Oncology at [address] [address] 04/24/2024 3:00 PM EST Scheduled View Only Radiation Oncology at [address] [address] 04/27/2024 11:15 AM EST Scheduled View Only Radiation Oncology at [address] [address] 04/28/2024 11:30 AM EST Scheduled View Only Radiation Oncology at [address] [address] 04/28/2024 12:00 PM EST Office Visit Radiation Oncology at [address] [address] Radha Casiano MD [facility] [place] [address] 04/28/2024 2:00 PM EST Office Visit Cardiology at [address] [place] [phone] Letty Montejo, JAYLEN [facility] [place] [address] 04/29/2024 11:15 AM EST Scheduled View Only Radiation Oncology at [address] [address] 04/30/2024 11:30 AM EST Scheduled View Only Radiation Oncology at [address] [address] 05/01/2024 11:15 AM EST Scheduled View Only Radiation Oncology at [address] [address] 05/04/2024 10:45 AM EST Scheduled View Only Radiation Oncology at [address] [address] 05/05/2024 1:00 PM EST Scheduled View Only Radiation Oncology at [address] [address] 05/05/2024 1:15 PM EST Office Visit Radiation Oncology at [address] [address] Radha Casiano MD [facility] [place] [address] 05/06/2024 1:00 PM EST Scheduled View Only Radiation Oncology at [address] [address] 05/07/2024 1:00 PM EST Scheduled View Only Radiation Oncology at [address] [address] 05/08/2024 1:00 PM EST Scheduled View Only Radiation Oncology at [address] [address] 05/11/2024 11:30 AM EST Scheduled View Only Radiation Oncology at [address] [address] 01/13/2025 1:00 PM EST Office Visit Hematology/Oncology at [address] [address] Lee Ann Jay MD [facility] DR [place] [address] Leti Anderson APRN [facility] [place] [address] documented as of this encounter Visit Diagnoses Not on filedocumented in this encounter Care Teams Collar Pointer Relationship Specialty Start Date End Date Julia Chatterjee MD [facility] K[address] [address] PCP - General 01/31/10 documented as of this encounter
--- OUTSIDE RECORDS SUMMARY | 2024-04-17 01:27 | XMS_ITS | Encounter Summary ---
Author Organization [facility] [place] [address] Care Team Providers Care Presser All Around Name Role Phone Julia Chatterjee MD Primary Care Provider [phone] Reason for Visit * Reason Onset Date Comments Other 11/01/2016 lab work Encounter Details Date Type Department Care Team (Late Contact Info) Description 11/01/2016 Telephone Hematology/Oncology at [address] [phone] Mera Cintron RN Other (lab [...] Scheduled View Only Radiation Oncology at [address] [address] 04/20/2024 12:45 PM EST Scheduled View Only Radiation Oncology at [address] [address] 04/21/2024 10:45 AM EST Scheduled View Only Radiation Oncology at [address] [address] 04/21/2024 11:00 AM EST Office Visit Radiation Oncology at [address] [address] Radha Casiano MD [facility] [place] [address] 04/22/2024 3:00 PM EST Scheduled View Only Radiation Oncology at [address] [address] 04/23/2024 3:00 PM EST Scheduled View Only Radiation Oncology at [address] [address] 04/24/2024 3:00 PM EST Scheduled View Only Radiation Oncology at [address] [address] 04/27/2024 11:15 AM EST Scheduled View Only Radiation Oncology at [address] [address] 04/28/2024 11:30 AM EST Scheduled View Only Radiation Oncology at [address] [address] 04/28/2024 12:00 PM EST Office Visit Radiation Oncology at [address] [address] Radha Casiano MD [facility] [place] [address] 04/28/2024 2:00 PM EST Office Visit Cardiology at [address] [place] [address] Letty Montejo APRN [facility] [place] [id number] 04/29/2024 11:15 AM EST Scheduled View Only Radiation Oncology at [address] [address] 04/30/2024 11:30 AM EST Scheduled View Only Radiation Oncology at [address] [address] 05/01/2024 11:15 AM EST Scheduled View Only Radiation Oncology at [address] [address] 05/04/2024 10:45 AM EST Scheduled View Only Radiation Oncology at [address] [address] 05/05/2024 1:00 PM EST Scheduled View Only Radiation Oncology at [address] [address] 05/05/2024 1:15 PM EST Office Visit Radiation Oncology at [address] [address] Radha Casiano MD [facility] [place] [address] 05/06/2024 1:00 PM EST Scheduled View Only Radiation Oncology at [address] [address] 05/07/2024 1:00 PM EST Scheduled View Only Radiation Oncology at [address] [address] 05/08/2024 1:00 PM EST Scheduled View Only Radiation Oncology at [address] [address] 05/11/2024 11:30 AM EST Scheduled View Only Radiation Oncology at [address] [address] 01/13/2025 1:00 PM EST Office Visit Hematology/Oncology at [address] [address] Lee Ann Jay MD [facility] DR [place] [address] Leti Anderson APRN [facility] [place] [address] documented as of this encounter Visit Diagnoses Not on filedocumented in this encounter Care Teams Presser All Around Relationship Specialty Start Date End Date Julia Chatterjee MD [facility] [address] [place] [address] PCP - General 01/31/10 documented as of this encounter
--- OUTSIDE RECORDS SUMMARY | 2024-04-17 01:27 | XMS_ITS | Encounter Summary ---
Author Organization [facility] Address [facility] [place] [address] Care Team Providers Care Message Clerk Name Role Phone Julia Chatterjee MD Primary Care Provider [phone] Encounter Details Date Type Department Care Team (Late st Contact Info) Description 12/07/2016 - 12/07/2016 11:59 PM EDT Hospital Encounter Radiology Library at [facility] [place] [address] Lee Ann Jay MD [facility] HEMATOLOGY [place] [address] Pain Discharge Disposition: Home Social History Tobacco [...] mg by mouth daily. 08/26/2019 MULTIVITAMIN/ZINC SULFATE/SULTANA ([id number] ENIUM ORAL)Indications:Neutr openia, unspecified type Take 1 [...] Scheduled View Only Radiation Oncology at [address] [phone] 04/20/2024 12:45 PM EST Scheduled View Only Radiation Oncology at [address] [address] 04/21/2024 10:45 AM EST Scheduled View Only Radiation Oncology at [address] [address] 04/21/2024 11:00 AM EST Office Visit Radiation Oncology at [address] [address] Radha Casiano MD [facility] DR RADIATION ONCOLOGY [place] [id number] 04/22/2024 3:00 PM EST Scheduled View Only Radiation Oncology at [address] [address] 04/23/2024 3:00 PM EST Scheduled View Only Radiation Oncology at [address] [address] 04/24/2024 3:00 PM EST Scheduled View Only Radiation Oncology at [address] [address] 04/27/2024 11:15 AM EST Scheduled View Only Radiation Oncology at [address] [address] 04/28/2024 11:30 AM EST Scheduled View Only Radiation Oncology at [address] [phone] 04/28/2024 12:00 PM EST Office Visit Radiation Oncology at [address] [address] Radha Casiano MD [facility] [place] [address] 04/28/2024 2:00 PM EST Office Visit Cardiology at [address] [place] [address] Letty Montejo, JAYLEN [facility] [place] [address] 04/29/2024 11:15 AM EST Scheduled View Only Radiation Oncology at [address] [address] 04/30/2024 11:30 AM EST Scheduled View Only Radiation Oncology at [address] [address] 05/01/2024 11:15 AM EST Scheduled View Only Radiation Oncology at [address] [address] 05/04/2024 10:45 AM EST Scheduled View Only Radiation Oncology at [address] [address] 05/05/2024 1:00 PM EST Scheduled View Only Radiation Oncology at [address] [address] 05/05/2024 1:15 PM EST Office Visit Radiation Oncology at [address] [address] Radha Casiano MD [facility] RADI[place] [address] 05/06/2024 1:00 PM EST Scheduled View Only Radiation Oncology at [address] [address] 05/07/2024 1:00 PM EST Scheduled View Only Radiation Oncology at [address] [address] 05/08/2024 1:00 PM EST Scheduled View Only Radiation Oncology at [address] [address] 05/11/2024 11:30 AM EST Scheduled View Only Radiation Oncology at [address] [address] 01/13/2025 1:00 PM EST Office Visit Hematology/Oncology at [address] [address] Lee Ann Jay MD [facility] HEMATOLOGY [place] [address] Leti Anderson APRN [facility] HEMATOLOGY [place] [address] documented as of this encounter Procedures Procedure Name Priority Date/Time Associated Diagnosis Comments ULTRASOUND SCAN (SCAN) 12/07/2016 12:00 AM EDT FILM LIBRARY STORAGE ONLY ULTRASOUND STUDY Routine 12/07/2016 12:00 AM EDT Pain documented in this encounter Results * Film Library- Storage Only Ultrasound Study (12/07/2016 12:00 AM EDT) Narrative [facility] - 12/08/2016 8:57 AM EDT This exam is for storage only and is auto-finalizing. Lee Ann Jay MD IMG FILM LIBRARY ORDERABLES [place], [place] * SCAN DOC: ULTRASOUND (12/07/2016 12:00 AM EDT) Anatomical Region Laterality Modality SO Narrative 12/07/2016 12:00 AM EDT Ordered by an unspecified provider. Scanning Provider MEDIA MGR SCAN EXT O RDR/RSLT documented in this encounter Visit Diagnoses Diagnosis Pain Generalized pain documented in this encounter Care Teams Message Clerk Relationship Specialty Start Date End Date Julia Chatterjee MD [facility] [address] [place] [address] PCP - General 01/31/10 documented as of this encounter
--- OUTSIDE RECORDS SUMMARY | 2024-04-17 01:27 | XMS_ITS | Encounter Summary ---
Author Organization [facility] Address [facility] Xavi wilson [place] [address] Care Team Providers Care Executive Asst Name Role Phone Julia Chatterjee MD Primary Care Provider [phone] Encounter Details Date Type Department Care Team (Late st Contact Info) Description 08/08/2016 2:00 PM EDT Office Visit Hematology/Oncology at [address] [address] Lee Ann Jay MD [facility] DR [place] [address] Neutropenia, unspecified type Social History Tobacco Use [...] 13.4, plt 162 Neutrophils 12.9 Lymphocytes 66.5 Harper 19.3 Eosinophils 0.4 Basophils 0.0 Immature grans [...] WITH BX performed by MARY CASTRO at [facility] ??? PRO COLONOSCOPY, REMV SABINA, SNARE 07/05/2011 COLONOSCOPY, POLYPECTOMY, REMOVAL LESION BY SNARE performed by MARY CASTRO at [facility] Medications; Current Outpatient Prescriptions on File [...] sisters all healthy Social History: Lives in [facility]. . 1 son 38 years old- healthy. 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 [...] gm/dL 1.21 M1 Band Unknown None Detected [place] Free Light Chains Latest Ref Range: 0.33 - 1.94 mg/dL 1.66 [place]ambda Free Light Chains Latest Ref Range: 0.57 - 2.63 mg/dL 1.54 [place]/Lambda Free Light Chain Ratio Latest Ref Range: 0.2600 - 1.6500 1.0779 IgG Latest Ref Range: 700 - 1600 mg/dL 1468 IgA Latest Ref Range: 70 - 400 mg/dL 238 IgM Latest Ref Range: 40 - 230 mg/dL 114 HIV Viral Load Unknown * RESULT: <20 endoscopy support specialist... HepB Surface Ag Latest Ref Range: [...] return. She has been working with a cook specialty foreign food who started her on selenium and zinc. Counts are a bit higher so we will see. Associate Professor Of Law has been helping her with bowel issues. [...] This note was written or modified using [employer] voice recognition software. The final note was screened for mistakes. Please excuse any remaining errors. ? documented in this encounter Plan of Treatment Upcoming Encounters Date Type Department Care Team (Late st Contact Info) Description 04/17/2024 2:30 PM EST Scheduled View Only Radiation Oncology at [address] [address] 04/20/2024 12:45 PM EST Scheduled View Only Radiation Oncology at [address] [address] 04/21/2024 10:45 AM EST Scheduled View Only Radiation Oncology at [address] [address] 04/21/2024 11:00 AM EST Office Visit Radiation Oncology at [address] [address] Radha Casiano MD [facility] [place] [address] 04/22/2024 3:00 PM EST Scheduled View Only Radiation Oncology at [address] [address] 04/23/2024 3:00 PM EST Scheduled View Only Radiation Oncology at [address] [address] 04/24/2024 3:00 PM EST Scheduled View Only Radiation Oncology at [address] [address] 04/27/2024 11:15 AM EST Scheduled View Only Radiation Oncology at [address] [address] 04/28/2024 11:30 AM EST Scheduled View Only Radiation Oncology at [address] [address] 04/28/2024 12:00 PM EST Office Visit Radiation Oncology at [address] [address] Radha Casiano MD [facility] RADI[place] [address] 04/28/2024 2:00 PM EST Office Visit Cardiology at [address] [place] [address] Letty Montejo, AUTOMOTIVE PAINTER HELPER [facility] [id number] 04/29/2024 11:15 AM EST Scheduled View Only Radiation Oncology at [address] [address] 04/30/2024 11:30 AM EST Scheduled View Only Radiation Oncology at [address] [address] 05/01/2024 11:15 AM EST Scheduled View Only Radiation Oncology at [address] [address] 05/04/2024 10:45 AM EST Scheduled View Only Radiation Oncology at [address] [address] 05/05/2024 1:00 PM EST Scheduled View Only Radiation Oncology at [address] [address] 05/05/2024 1:15 PM EST Office Visit Radiation Oncology at [address] [address] Radha Casiano MD [facility] RADIATION ONCOLOGY [place] [phone] 05/06/2024 1:00 PM EST Scheduled View Only Radiation Oncology at [address] [address] 05/07/2024 1:00 PM EST Scheduled View Only Radiation Oncology at [address] [address] 05/08/2024 1:00 PM EST Scheduled View Only Radiation Oncology at [address] [address] 05/11/2024 11:30 AM EST Scheduled View Only Radiation Oncology at [address] [address] 01/13/2025 1:00 PM EST Office Visit Hematology/Oncology at [address] [address] Lee Ann Jay MD [facility] [place] [id number] An Anderson APRN [facility] HEMATOLOGY [place] [id number] documented as of this encounter Procedures Procedure [...] type documented in this encounter Care Teams Executive Asst Relationship Specialty Start Date End Date Julia Chatterjee MD [facility] [address] [place] [address] PCP - General 01/31/10 documented as of this encounter
--- OUTSIDE RECORDS SUMMARY | 2024-04-17 01:27 | XMS_ITS | Encounter Summary ---
Author Organization [facility] [place] [address] Care Team Providers Care Surgical Clinical Reviewer Name Role Phone Julia Chatterjee MD Primary Care Provider [phone] Encounter Details Date Type Department Care Team (Late st Contact Info) Description 07/19/2011 Tele[place] [address] Ana Felton RN Social History Tobacco Use Types Packs/Day [...] touch. No drainage Will review with Dr Nelson documented in this encounter Plan of Treatment Upcoming Encounters Date Type Department Care Team (Late st Contact Info) Description 04/17/2024 2:30 PM EST Scheduled View Only Radiation Oncology at [address] [address] 04/20/2024 12:45 PM EST Scheduled View Only Radiation Oncology at [address] [address] 04/21/2024 10:45 AM EST Scheduled View Only Radiation Oncology at [address] [address] 04/21/2024 11:00 AM EST Office Visit Radiation Oncology at [address] [address] Radha Casiano MD [facility] [place] [address] 04/22/2024 3:00 PM EST Scheduled View Only Radiation Oncology at [address] [address] 04/23/2024 3:00 PM EST Scheduled View Only Radiation Oncology at [address] [address] 04/24/2024 3:00 PM EST Scheduled View Only Radiation Oncology at [address] [address] 04/27/2024 11:15 AM EST Scheduled View Only Radiation Oncology at [address] [address] 04/28/2024 11:30 AM EST Scheduled View Only Radiation Oncology at [address] [address] 04/28/2024 12:00 PM EST Office Visit Radiation Oncology at [address] [address] Radha Casiano MD [facility] [place] [address] 04/28/2024 2:00 PM EST Office Visit Cardiology at [address] [place] [address] Letty Montejo APRN [facility] [place] [address] 04/29/2024 11:15 AM EST Scheduled View Only Radiation Oncology at [address] [address] 04/30/2024 11:30 AM EST Scheduled View Only Radiation Oncology at [address] [address] 05/01/2024 11:15 AM EST Scheduled View Only Radiation Oncology at [address] [address] 05/04/2024 10:45 AM EST Scheduled View Only Radiation Oncology at [address] [address] 05/05/2024 1:00 PM EST Scheduled View Only Radiation Oncology at [address] [address] 05/05/2024 1:15 PM EST Office Visit Radiation Oncology at [address] [address] Radha Casiano MD [facility] [place] [address] 05/06/2024 1:00 PM EST Scheduled View Only Radiation Oncology at [address] [address] 05/07/2024 1:00 PM EST Scheduled View Only Radiation Oncology at [address] [address] 05/08/2024 1:00 PM EST Scheduled View Only Radiation Oncology at [address] [address] 05/11/2024 11:30 AM EST Scheduled View Only Radiation Oncology at [address] [address] 01/13/2025 1:00 PM EST Office Visit Hematology/Oncology at [address] [address] Lee Ann Jay MD [facility] DR HEMATOLOGY [place] [address] Leti Anderson APRN [facility] HEMATOLOGY [place] [address] documented as of this encounter Visit Diagnoses Not on filedocumented in this encounter Care Teams Surgical Clinical Reviewer Relationship Specialty Start Date End Date Julia Chatterjee MD [address] [place] [address] PCP - General 01/31/10 documented as of this encounter
--- OUTSIDE RECORDS SUMMARY | 2024-04-17 01:27 | XMS_ITS | Encounter Summary ---
Author Organization [facility] Address [facility] [place] [address] Care Team Providers Care Storage Worker Name Role Phone Julia Chatterjee MD Primary Care Provider [phone] Encounter Details Date Type Department Care Team (Late st Contact Info) Description 11/07/2016 2:00 PM EDT Office Visit Hematology/Oncology at [address] [address] Lee Ann Jay MD [facility] [place] [address] Neutropenia, unspecified type; Ulcerative pancolitis without complication [...] 13.4, plt 162 Neutrophils 12.9 Lymphocytes 66.5 [place] 19.3 Eosinophils 0.4 Basophils 0.0 Immature grans [...] Ulcerative colitis Diagnosed around 2011. Worked with combination machine tool setter with resolution of symptoms food based supplements [...] BX performed by MARY CASTRO at [facility] ??? PRO COLONOSCOPY, REMV LESN, SNARE 07/05/2011 COLONOSCOPY, POLYPECTOMY, REMOVAL LESION BY SNARE performed by MARY CASTRO at [facility] Medications; Current Outpatient Prescriptions on File Prior to Visit Medication Sig Dispense Refill ??? ascorbic acid, vitamin C, (VITAMIN C) 500 mg Tablet Take 500 mg by mouth daily. ??? MULTIVITAMIN/ZINC SULFATE/SULTANA ([id number] ORAL) Take 1 tablet by mouth daily. [...] sisters all healthy Social History: Lives in [facility]. . 1 son 38 years old- healthy. 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 HepB Surface Ag Latest Ref Range: Negative [...] return. She has been working with a combination machine tool setter who started her on selenium and zinc. Counts are a bit higher so we will see. Block Trader has been helping her with bowel issues. [...] image spleen - [facility] at [facility] ?? BMBx with sedation ?? RTC 2 [...] This note was written or modified using [employer] voice recognition software. The final note was screened for mistakes. Please excuse any remaining errors. ?? documented in this encounter Plan of Treatment Upcoming Encounters Date Type Department Care Team (Late st Contact Info) Description 04/17/2024 2:30 PM EST Scheduled View Only Radiation Oncology at [address] [address] 04/20/2024 12:45 PM EST Scheduled View Only Radiation Oncology at [address] [address] 04/21/2024 10:45 AM EST Scheduled View Only Radiation Oncology at [address] [address] 04/21/2024 11:00 AM EST Office Visit Radiation Oncology at [address] [address] Radha Casiano MD [facility] [place] [address] 04/22/2024 3:00 PM EST Scheduled View Only Radiation Oncology at [address] [address] 04/23/2024 3:00 PM EST Scheduled View Only Radiation Oncology at [address] [address] 04/24/2024 3:00 PM EST Scheduled View Only Radiation Oncology at [address] [address] 04/27/2024 11:15 AM EST Scheduled View Only Radiation Oncology at [address] [address] 04/28/2024 11:30 AM EST Scheduled View Only Radiation Oncology at [address] [address] 04/28/2024 12:00 PM EST Office Visit Radiation Oncology at [address] [address] Radha Casiano MD [facility] [place] [address] 04/28/2024 2:00 PM EST Office Visit Cardiology at [address] [phone] Letty Montejo APRN [facility] [place] [address] 04/29/2024 11:15 AM EST Scheduled View Only Radiation Oncology at [address] [address] 04/30/2024 11:30 AM EST Scheduled View Only Radiation Oncology at [address] [address] 05/01/2024 11:15 AM EST Scheduled View Only Radiation Oncology at [address] [address] 05/04/2024 10:45 AM EST Scheduled View Only Radiation Oncology at [address] [address] 05/05/2024 1:00 PM EST Scheduled View Only Radiation Oncology at [address] [address] 05/05/2024 1:15 PM EST Office Visit Radiation Oncology at [address] [address] Radha Casiano MD [facility] [place] [address] 05/06/2024 1:00 PM EST Scheduled View Only Radiation Oncology at [address] [address] 05/07/2024 1:00 PM EST Scheduled View Only Radiation Oncology at [address] [address] 05/08/2024 1:00 PM EST Scheduled View Only Radiation Oncology at [address] [address] 05/11/2024 11:30 AM EST Scheduled View Only Radiation Oncology at [address] [address] 01/13/2025 1:00 PM EST Office Visit Hematology/Oncology at [address] [address] Lee Ann Jay MD [facility] [place] [address] An Anderson APRN [facility] [place] [address] documented as of this encounter Visit Diagnoses Diagnosis Neutropenia, unspecified type Ulcerative pancolitis without complication documented in this encounter Care Teams Storage Worker Relationship Specialty Start Date End Date Julia Chatterjee MD Sushant DORADO [address] [place] [address] PCP - General 01/31/10 documented as of this encounter
--- OUTSIDE RECORDS SUMMARY | 2024-04-17 01:27 | XMS_ITS | Encounter Summary ---
Author Organization [facility] Address [facility] [place] [address] Care Team Providers Care Arc Welder Name Role Phone Julia Chatterjee MD Primary Care Provider Reason for Visit * Consultation (Routine) - Closed Specialty Diagnoses / Procedures Referred By Contac t Referred To Contact Hematology and Oncology Diagnoses leukopenia Julia Chatterjee MD [address] [place] [address] [facility] 1 [place] [address] [facility] Hem Onc [address] [place] [address] Referral ID Status Reason Start Date Expiration Date V isits Requested Visits Authorized [id number] Closed Consult, Test & Treat Connection Center 06/05/2016 06/05/2017 1 1 Encounter Details Date Type Department Care Team (Late st Contact Info) Description 07/09/2016 11:00 AM EDT Office Visit [place] [phone] Lee Ann Rodriguez MD [facility] DR HEMATOLOGY [place] [address] Leukopenia, unspecified type (Primary Dx) Social History [...] 13.4, plt 162 Neutrophils 12.9 Lymphocytes 66.5 Frontier 19.3 Eosinophils 0.4 Basophils 0.0 Immature grans [...] WITH BX performed by MARY CASTRO at [facility] ??? PRO COLONOSCOPY, REMV LESN, SNARE 07/05/2011 COLONOSCOPY, POLYPECTOMY, REMOVAL LESION BY SNARE performed by MARY CASTRO at [facility] Medications; Current Outpatient Prescriptions [...] all healthy Social History: Lives in [facility]. . 1 son 38 years old- healthy. 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 Plan discussed with attending. All of patient's questions were answered. Mk Feliciano MD Hematology Oncology Fellow Pager [phone] * Lee Ann Rodriguez MD - 07/09/2016 [...] I plan to see her back in [facility] in about 3 months. If all [...] Scheduled View Only Radiation Oncology at [address] [address] 04/20/2024 12:45 PM EST Scheduled View Only Radiation Oncology at [address] [address] 04/21/2024 10:45 AM EST Scheduled View Only Radiation Oncology at [address] [phone] 04/21/2024 11:00 AM EST Office Visit Radiation Oncology at [address] [address] Radha Casiano MD [facility] [place] [address] 04/22/2024 3:00 PM EST Scheduled View Only Radiation Oncology at [address] [address] 04/23/2024 3:00 PM EST Scheduled View Only Radiation Oncology at [address] [address] 04/24/2024 3:00 PM EST Scheduled View Only Radiation Oncology at [address] [address] 04/27/2024 11:15 AM EST Scheduled View Only Radiation Oncology at [address] [address] 04/28/2024 11:30 AM EST Scheduled View Only Radiation Oncology at [address] [address] 04/28/2024 12:00 PM EST Office Visit Radiation Oncology at [address] [address] Radha Casiano MD [facility] [place] [address] 04/28/2024 2:00 PM EST Office Visit Cardiology at [address] [place] [address] Letty Montejo, JAYLEN [facility] [place] [address] 04/29/2024 11:15 AM EST Scheduled View Only Radiation Oncology at [address] [address] 04/30/2024 11:30 AM EST Scheduled View Only Radiation Oncology at [address] [address] 05/01/2024 11:15 AM EST Scheduled View Only Radiation Oncology at [address] [address] 05/04/2024 10:45 AM EST Scheduled View Only Radiation Oncology at [address] [address] 05/05/2024 1:00 PM EST Scheduled View Only Radiation Oncology at [address] [address] 05/05/2024 1:15 PM EST Office Visit Radiation Oncology at [address] [address] Radha Casiano MD [facility] [place] [address] 05/06/2024 1:00 PM EST Scheduled View Only Radiation Oncology at [address] [address] 05/07/2024 1:00 PM EST Scheduled View Only Radiation Oncology at [address] [address] 05/08/2024 1:00 PM EST Scheduled View Only Radiation Oncology at [address] [address] 05/11/2024 11:30 AM EST Scheduled View Only Radiation Oncology at [address] [address] 01/13/2025 1:00 PM EST Office Visit Hematology/Oncology at [address] [address] Lee Ann Rodriguez MD [facility] DR HEMATOLOGY [place] [address] Leti Anderson APRN [facility] DR HEMATOLOGY [place] [address] documented as of this encounter Results * Hepatitis B Surface Antigen (07/09/2016 12:00 PM EDT) Hepatitis B Surface Antigen Negative Negative [facility] Blood specimen (specimen) 07/09/2016 12:00 PM EDT 07/09/2016 12:09 PM EDT Narrative Resulting Agency Comment Spec In Lab Lee Ann Rodriguez MD CHEMISTRY ORDERA BLES [facility] [place] [address] * Hepatitis B Core Antibody, Total (07/09/2016 12:00 PM EDT) Hepatitis B Core Antibody Negative Negative [facility] Blood specimen (specimen) 07/09/2016 12:00 PM EDT 07/09/2016 12:09 PM EDT Narrative Resulting Agency Comment Spec In Lab Lee Ann Rodriguez MD CHEMISTRY ORDERA BLES [facility] [place] [address] * Hepatitis C Antibody (07/09/2016 12:00 PM EDT) Hepatitis C Antibody Negative Negative [facility] Comment: An updated Hepatitis C Ab assay reagent was implemented on 05/23/16. Please contact Dr. Alfaro at [phone] with any questions or concerns. Blood specimen (specimen) 07/09/2016 12:00 PM EDT 07/09/2016 12:09 PM EDT Narrative Resulting Agency Comment Spec In Lab Lee Ann Rodriguez MD CHEMISTRY LILA ROBERTS Performing Organization Address [facility] Co de Phone Number [facility] [place] [address] * HIV-1 RNA, quantitative, PCR (07/09/2016 12:00 PM EDT) [facility] HIV Viral Load Result * RESULT: <20 [...] LILA ROBERTS Performing Organization Address [facility] Co de Phone Number [facility] [place] [address] * Immunoglobulins, Quantitative (07/09/2016 12:00 PM EDT) Pathologist [facility] IgG 1,468 700 - 1,600 mg/dL [facility] IgA 238 70 - 400 mg/dL [facility] IgM 114 40 - 230 mg/dL [facility] Blood specimen (specimen) 07/09/2016 12:00 PM EDT 07/09/2016 12:09 PM EDT Narrative Resulting Agency Comment Spec In Lab eLe Ann Rodriguez MD CHEMISTRY ORDERA BLES Performing Organization Address [facility] Co de Phone Number [facility] [place] [address] * Free Light Chains, Serum (07/09/2016 12:00 PM EDT) [place] Free Light Chains 1.66 0.33 - 1.94 mg/dL [facility] Lambda Free Light Chains 1.54 0.57 - 2.63 mg/dL [facility] [place]/Lambda Free Light Chain Ratio 1.0779 0.2600 - 1.6500 [facility] Blood specimen (specimen) 07/09/2016 12:00 PM EDT 07/09/2016 12:09 PM EDT Narrative Resulting Agency Comment Spec In Lab Lee Ann Rodriguez MD CHEMISTRY ORDERA BLES Performing Organization Address [facility] Co de Phone Number [facility] [place] [address] * Protein Electrophoresis, serum (07/09/2016 12:00 PM [...] MD CHEMISTRY ORDERA BLES Performing Organization Address City/[facility]/ZIP Co de Phone Number [facility] [place] [address] * Immunophenotyping Flow Cytometry (07/09/2016 12:00 PM EDT) Immunophenotyping Flow See Comment [facility] Comment: When completed by the Pathologist, the Flow Cytometry Report ([id number]) will display under the Pathology Results section within eDH. Specimen of unknown material (specimen) 07/09/2016 12:00 PM EDT 07/09/2016 12:09 PM EDT Narrative Resulting Agency Comment Spec In Lab Lee Ann Rodriguez MD HEMATOLOGY ORDER ASHLEY Performing Organization Address [facility] Co de Phone Number [facility] [place] [address] * (ABNORMAL) Comprehensive metabolic panel (non-fasting) (07/09/2016 12:00 PM EDT) Glucose 95 65 - 199 mg/dL [facility] Comment:Diabetes: >=200 mg/d L plus symptoms Blood Urea Nitrogen 17 8 - 18 mg/dL [facility] Creatinine 0.96 0.70 - 1.20 mg/dL [facility] Comment: Please note that the pediatric reference intervals supplied above were not validated at [facility]. Results from pediatric patients should be interpreted [...] the following links into your internet browser. [email or web address] [email or web address]/[email or web address] Blood specimen (specimen) 07/09/2016 12:00 PM EDT 07/09/2016 12:09 PM EDT Narrative Resulting Agency Comment Spec In Lab Lee Ann Rodriguez MD CHEMISTRY ORDERA BLES [facility] [place] [address] documented in this encounter Visit Diagnoses Diagnosis Leukopenia, unspecified type- Primary documented in this encounter Care Teams Arc Welder Relationship Specialty Start Date End Date Julia Chatterjee MD [facility] [address] [place] [address] PCP - General 01/31/10 documented as of this encounter
--- OUTSIDE RECORDS SUMMARY | 2024-04-17 01:27 | XMS_ITS | Encounter Summary ---
Author Organization [facility] Address [facility] [place] [address] Care Team Providers Care Business Applications Developer Name Role Phone Julia Chatterjee MD Primary Care Provider [phone] Reason for Visit * Reason Onset Date Comments Medication Refill 07/05/2011 Encounter Details Date Type Department Care Team (Late st Contact Info) Description 07/05/2011 Refill [place] [address] Ayaz Nelson MD [facility] [place] [address] Social History Tobacco Use Types Packs/Day Years [...] Scheduled View Only Radiation Oncology at [address] [address] 04/20/2024 12:45 PM EST Scheduled View Only Radiation Oncology at [address] [address] 04/21/2024 10:45 AM EST Scheduled View Only Radiation Oncology at [address] [address] 04/21/2024 11:00 AM EST Office Visit Radiation Oncology at [address] [address] Radha Casiano MD [facility] [place] [address] 04/22/2024 3:00 PM EST Scheduled View Only Radiation Oncology at [address] [address] 04/23/2024 3:00 PM EST Scheduled View Only Radiation Oncology at [address] [address] 04/24/2024 3:00 PM EST Scheduled View Only Radiation Oncology at [address] [address] 04/27/2024 11:15 AM EST Scheduled View Only Radiation Oncology at [address] [address] 04/28/2024 11:30 AM EST Scheduled View Only Radiation Oncology at [address] [address] 04/28/2024 12:00 PM EST Office Visit Radiation Oncology at [address] [address] Radha Casiano MD [facility] [place] [address] 04/28/2024 2:00 PM EST Office Visit Cardiology at [address] [place] [address] Letty Montejo, JAYLEN [facility] [place] [address] 04/29/2024 11:15 AM EST Scheduled View Only Radiation Oncology at [address] [address] 04/30/2024 11:30 AM EST Scheduled View Only Radiation Oncology at [address] [address] 05/01/2024 11:15 AM EST Scheduled View Only Radiation Oncology at [address] [address] 05/04/2024 10:45 AM EST Scheduled View Only Radiation Oncology at [address] [address] 05/05/2024 1:00 PM EST Scheduled View Only Radiation Oncology at [address] [address] 05/05/2024 1:15 PM EST Office Visit Radiation Oncology at [address] [address] Radha Casiano MD [facility] [place] [address] 05/06/2024 1:00 PM EST Scheduled View Only Radiation Oncology at [address] [address] 05/07/2024 1:00 PM EST Scheduled View Only Radiation Oncology at [address] [address] 05/08/2024 1:00 PM EST Scheduled View Only Radiation Oncology at [address] [address] 05/11/2024 11:30 AM EST Scheduled View Only Radiation Oncology at [address] [address] 01/13/2025 1:00 PM EST Office Visit Hematology/Oncology at [address] [address] Lee Ann Jay MD [facility] HEMATOLOGY [place] [address] Leti Anderson, JAYLEN [facility] [place] [address] documented as of this encounter Visit Diagnoses Not on filedocumented in this encounter Care Teams Business Applications Developer Relationship Specialty Start Date End Date Julia Chatterjee MD [address]ush[address] [facility] 1 [place] [address] PCP - General 01/31/10 documented as of this encounter
--- OUTSIDE RECORDS SUMMARY | 2024-04-17 01:27 | XMS_ITS | Encounter Summary ---
Author Organization [facility] [place] [address] Care Team Providers Care Drivability Technician Name Role Phone Julia Chatterjee MD Primary Care Provider [phone] Reason for Visit * Reason Onset Date Comments Labs Only 10/25/2016 Encounter Details Date Type Department Care Team (Late Contact Info) Description 10/25/2016 Telephone Hematology/Oncology at [address] [address] Mera Cintron RN Labs Only [...] Scheduled View Only Radiation Oncology at [address] [phone] 04/20/2024 12:45 PM EST Scheduled View Only Radiation Oncology at [address] [address] 04/21/2024 10:45 AM EST Scheduled View Only Radiation Oncology at [address] [address] 04/21/2024 11:00 AM EST Office Visit Radiation Oncology at [address] [address] Radha Casiano MD [facility] [place] [address] 04/22/2024 3:00 PM EST Scheduled View Only Radiation Oncology at [address] [address] 04/23/2024 3:00 PM EST Scheduled View Only Radiation Oncology at [address] [address] 04/24/2024 3:00 PM EST Scheduled View Only Radiation Oncology at [address] [address] 04/27/2024 11:15 AM EST Scheduled View Only Radiation Oncology at [address] [address] 04/28/2024 11:30 AM EST Scheduled View Only Radiation Oncology at [address] [address] 04/28/2024 12:00 PM EST Office Visit Radiation Oncology at [address] [address] Radha Casiano MD [facility] [place] [address] 04/28/2024 2:00 PM EST Office Visit Cardiology at [address] [place] [address] Letty Montejo, POLYSOMNOGRAPHY TECHNICIAN [facility] [place] [place] [address] 04/29/2024 11:15 AM EST Scheduled View Only Radiation Oncology at [address] [address] 04/30/2024 11:30 AM EST Scheduled View Only Radiation Oncology at [address] [address] 05/01/2024 11:15 AM EST Scheduled View Only Radiation Oncology at [address] [address] 05/04/2024 10:45 AM EST Scheduled View Only Radiation Oncology at [address] [address] 05/05/2024 1:00 PM EST Scheduled View Only Radiation Oncology at [address] [address] 05/05/2024 1:15 PM EST Office Visit Radiation Oncology at [address] [address] Radha Casiano MD [facility] DR [place] [address] 05/06/2024 1:00 PM EST Scheduled View Only Radiation Oncology at [address] [address] 05/07/2024 1:00 PM EST Scheduled View Only Radiation Oncology at [address] [address] 05/08/2024 1:00 PM EST Scheduled View Only Radiation Oncology at [address] [address] 05/11/2024 11:30 AM EST Scheduled View Only Radiation Oncology at [address] [address] 01/13/2025 1:00 PM EST Office Visit Hematology/Oncology at [address] [address] Lee Ann Jay MD [facility] DR HEMATOLOGY [place] [address] Leti Anderson APRN [facility] HEMATOLOGY [place] [address] documented as of this encounter Visit Diagnoses Not on filedocumented in this encounter Care Teams Drivability Technician Relationship Specialty Start Date End Date Julia Chatterjee MD [facility] 1 [place] [address] PCP - General 01/31/10 documented as of this encounter
--- OUTSIDE RECORDS SUMMARY | 2024-04-17 01:27 | XMS_ITS | Referral Summary ---
Author Organization [facility] Address [address] [place] [address] Care Team Providers Care Sdv Pilot/Navigator/Dds Operator Name Role Phone Julia Chatterjee MD Primary Care Provider [phone] Social History Tobacco Use Types Packs/Day Years [...] Antibody Negative Negative 01/09/2022 20:42 EDT [facility] Blood VENOUS BLOOD / Unknown 01/08/2022 7:39 EDT 01/09/2022 17:25 EDT us Provider Outr Resulting Lab CHEMISTRY & BLOOD GA S ORDERABLES Final Result [facility] [address] [place] [address] from Last 3 Months or Most Recently Relevant to Health Maintenance Insurance [facility] [place] [facility] Address: [address] [address] MEDICARE [employer] [place] Care Teams Sdv Pilot/Navigator/Dds Operator Relationship Specialty Start Date End Date Julia Chatterjee MD [address] [place] [phone] PCP - General 08/13/19
--- OUTSIDE RECORDS SUMMARY | 2024-04-17 01:27 | XMS_ITS | Encounter Summary ---
Author Organization [facility] Address [facility] [place] [address] Care Team Providers Care Writing Tutor Name Role Phone Julia Chatterjee MD Primary Care Provider [phone] Encounter Details Date Type Department Care Team (Late st Contact Info) Description 11/01/2016 Notes Only [place]ematology [place] [address] Lee Ann Jay MD [facility] [address] [place] [address] Social History Tobacco Use Types Packs/Day Years [...] EST Scheduled View Only Radiation Oncology at [address] [address] 04/20/2024 12:45 PM EST Scheduled View Only Radiation Oncology at [address] [address] 04/21/2024 10:45 AM EST Scheduled View Only Radiation Oncology at [address] [address] 04/21/2024 11:00 AM EST Office Visit Radiation Oncology at [address] [address] Radha Casiano MD [facility] DR [place] [address] 04/22/2024 3:00 PM EST Scheduled View Only Radiation Oncology at [address] [address] 04/23/2024 3:00 PM EST Scheduled View Only Radiation Oncology at [address] [address] 04/24/2024 3:00 PM EST Scheduled View Only Radiation Oncology at [address] [address] 04/27/2024 11:15 AM EST Scheduled View Only Radiation Oncology at [address] [address] 04/28/2024 11:30 AM EST Scheduled View Only Radiation Oncology at [address] [address] 04/28/2024 12:00 PM EST Office Visit Radiation Oncology at [address] [address] Radha Casiano MD [facility] [place] [address] 04/28/2024 2:00 PM EST Office Visit Cardiology at [address] [place] [address] Letty Montejo APRN [facility] [place] [address] 04/29/2024 11:15 AM EST Scheduled View Only Radiation Oncology at [address] [address] 04/30/2024 11:30 AM EST Scheduled View Only Radiation Oncology at [address] [address] 05/01/2024 11:15 AM EST Scheduled View Only Radiation Oncology at [address] [address] 05/04/2024 10:45 AM EST Scheduled View Only Radiation Oncology at [address] [address] 05/05/2024 1:00 PM EST Scheduled View Only Radiation Oncology at [address] [address] 05/05/2024 1:15 PM EST Office Visit Radiation Oncology at [address] [address] Radha Casiano MD [facility] [place] [address] 05/06/2024 1:00 PM EST Scheduled View Only Radiation Oncology at [address] [address] 05/07/2024 1:00 PM EST Scheduled View Only Radiation Oncology at [address] [address] 05/08/2024 1:00 PM EST Scheduled View Only Radiation Oncology at [address] [address] 05/11/2024 11:30 AM EST Scheduled View Only Radiation Oncology at [address] [address] 01/13/2025 1:00 PM EST Office Visit Hematology/Oncology at [address] [phone] Lee Ann Jay MD [facility] [place] [address] Leti Anderson APRN [facility] [place] [address] documented as of this encounter Visit Diagnoses Diagnosis Neutropenia, unspecified type documented in this encounter Care Teams Writing Tutor Relationship Specialty Start Date End Date Julia Chatterjee MD [address] [place] [address] PCP - General 01/31/10 documented as of this encounter
--- OUTSIDE RECORDS SUMMARY | 2024-04-17 01:27 | XMS_ITS | Encounter Summary ---
Author Organization [facility] Address [address] [place] [address] Care Team Providers Care Carcass Trimmer Name Role Phone Julia Chatterjee MD Primary Care Provider [phone] Encounter Details Date Type Department Care Team (Late st Contact Info) Description 08/14/2019 Lab Requisition [facility] Pathology & Laboratory Medicine - [address] [id number] Outr Resulting Lab, Provider Social History Tobacco Use Types Packs/Day Years Used Date Smoking Tobacco: Never Assessed Comments Unknown Sex and Gender Information Value [...] Salmonella PCR Negative Negative 08/15/2019 12:17 EDT [facility] Shigella/Enteroin vasive E. coli Negative Negative 08/15/2019 12:17 EDT [facility] HN LAB CAMPYLOBACTER PCR Negative Negative 08/15/2019 12:17 EDT [facility] Shiga Toxin PCR Negative Negative 0 12:17 EDT [facility] Feces SPECIMEN FROM RECTUM / Unknown 08/13/2019 9:00 EDT 08/14/2019 17:25 EDT us Provider Outr Resulting Lab MICROBIOLOGY - GENER AL ORDERABLES Final Result [facility] [address] [place] [address] documented in this encounter Visit Diagnoses Not on filedocumented in this encounter Care Teams Carcass Trimmer Relationship Specialty Start Date End Date Julia Chatterjee MD [address] [place] [phone] PCP - General 08/13/19 documented as of this encounter
--- OUTSIDE RECORDS SUMMARY | 2024-04-17 01:27 | XMS_ITS | Encounter Summary ---
Author Organization [facility] [place] [address] Care Team Providers Care Front End Specialist Name Role Phone Julia Chatterjee MD Primary Care Provider [phone] Encounter Details Date Type Department Care Team (Late st Contact Info) Description 07/18/2016 Ancillary Procedure Radiology Library at [facility] [place] [id number] Julia Chatterjee MD [address] [place] [address] [facility] [address] [place] [address] Social History Tobacco Use Types [...] Scheduled View Only Radiation Oncology at [address] [address] 04/20/2024 12:45 PM EST Scheduled View Only Radiation Oncology at [address] [address] 04/21/2024 10:45 AM EST Scheduled View Only Radiation Oncology at [address] [address] 04/21/2024 11:00 AM EST Office Visit Radiation Oncology at [address] [address] Radha Casiano MD [facility] [place] [address] 04/22/2024 3:00 PM EST Scheduled View Only Radiation Oncology at [address] [address] 04/23/2024 3:00 PM EST Scheduled View Only Radiation Oncology at [address] [address] 04/24/2024 3:00 PM EST Scheduled View Only Radiation Oncology at [address] [address] 04/27/2024 11:15 AM EST Scheduled View Only Radiation Oncology at [address] [address] 04/28/2024 11:30 AM EST Scheduled View Only Radiation Oncology at [address] [address] 04/28/2024 12:00 PM EST Office Visit Radiation Oncology at [address] [address] Radha Casiano MD [facility] [place] [address] 04/28/2024 2:00 PM EST Office Visit Cardiology at [address] [place] [address] Letty Montejo, JAYLEN [facility] [place] [address] 04/29/2024 11:15 AM EST Scheduled View Only Radiation Oncology at [address] [address] 04/30/2024 11:30 AM EST Scheduled View Only Radiation Oncology at [address] [address] 05/01/2024 11:15 AM EST Scheduled View Only Radiation Oncology at [address] [address] 05/04/2024 10:45 AM EST Scheduled View Only Radiation Oncology at [address] [address] 05/05/2024 1:00 PM EST Scheduled View Only Radiation Oncology at [address] [address] 05/05/2024 1:15 PM EST Office Visit Radiation Oncology at [address] [address] Radha Casiano MD [facility] DR [place] [address] 05/06/2024 1:00 PM EST Scheduled View Only Radiation Oncology at [address] [address] 05/07/2024 1:00 PM EST Scheduled View Only Radiation Oncology at [address] [address] 05/08/2024 1:00 PM EST Scheduled View Only Radiation Oncology at [address] [address] 05/11/2024 11:30 AM EST Scheduled View Only Radiation Oncology at [address] [address] 01/13/2025 1:00 PM EST Office Visit Hematology/Oncology at [address] [address] Lee Ann Jay MD [facility] HEMATOLOGY [place] [address] Leti Anderson, JAYLEN [facility] HEMATOLOGY [place] [address] documented as of this encounter Procedures Procedure Name Priority Date/Time Associated Diagnosis Comments FILM LIBRARY STORAGE ONLY MAMMO Routine 07/18/2016 12:00 AM EDT documented in this encounter Results * Film Library- Storage Only Mammo (07/18/2016 12:00 AM EDT) Narrative [facility] - 10/29/2023 5:23 PM EDT This exam is auto-finalizing. It's purpose is for storage only. Julia Chatterjee MD IMG FILM LIBRARY ORD ERABLES [place], [place] documented in this encounter Visit Diagnoses Not on filedocumented in this encounter Care Teams Front End Specialist Relationship Specialty Start Date End Date Julia Chatterjee MD [facility] [address] [place] [address] PCP - General 01/31/10 documented as of this encounter
--- OUTSIDE RECORDS SUMMARY | 2024-04-17 01:27 | XMS_ITS | Clinical Summary ---
Author Organization [facility] Address [address] [place] [address] Care Team Providers Care Caramel Cutter Helper Name Role Phone Julia Chatterjee MD Primary Care Provider [phone] Social History Tobacco Use Types Packs/Day Years [...] Health Maintenance Due Date Last Done Comments Fall Risk Screening 11/28/2016 COVID-19 Vaccine ( season) 2023 RSV Immunization ( o r 60+ Years) (1 - 1-dose 75+ series) 11/28/2026 Hepatitis C Screen Completed 01/08/2022 Procedures Procedure Name Priority Date/Time Associated Diagnosis Comments HEPATITIS C AB W REFLEX TO HCV RNA BY PCR Routine 01/08/2022 7:39 EDT from Last 3 Months or Most Recently Relevant to Health Maintenance Results * HEPATITIS C AB W REFLEX TO HCV RNA BY PCR (01/08/2022 7:39 EDT) Hep C Antibody Negative Negative 01/09/2022 20:42 EDT [facility] Blood VENOUS BLOOD / Unknown 01/08/2022 7:39 EDT 01/09/2022 17:25 EDT us Provider Outr Resulting Lab CHEMISTRY & BLOOD GA S ORDERABLES Final Result [facility] [address] [place] [address] from Last 3 Months or Most Recently Relevant to Health Maintenance Insurance [facility] [place] Care Teams Caramel Cutter Helper Relationship Specialty Start Date End Date Julia Chatterjee MD [address] [place] [address] PCP - General 08/13/19
--- OUTSIDE RECORDS SUMMARY | 2024-04-17 01:27 | XMS_ITS | Encounter Summary ---
Author Organization [facility] Address [facility] [place] [address] Care Team Providers Care Can Handler Name Role Phone Julia Chatterjee MD Primary Care Provider [phone] Reason for Visit * Reason Comments Follow-up Encounter Details Date Type Department Care Team (Late st Contact Info) Description 01/24/2012 2:30 PM EST Follow-[place] [id number] Ayaz Nelson MD [facility] [place] [address] Colitis (Primary Dx) Discharge Disposition: Home Social [...] was doing well. She had seen a night patrol inspector who had suggested that she was gluten intolerant and lactose intolerant but did not have clear celiac disease. When I saw her last I checked her for tTG and it was negative. Since I saw her last, she has done well. She went off her gluten-free diet when she was in [facility] and then began to experience symptoms [...] Extremities without edema, cyanosis, or clubbing. Impression: Doxwj-ypli-nngo-old woman with left-sided colitis on colonoscopy in [...] Scheduled View Only Radiation Oncology at [address] [address] 04/20/2024 12:45 PM EST Scheduled View Only Radiation Oncology at [address] [address] 04/21/2024 10:45 AM EST Scheduled View Only Radiation Oncology at [address] [address] 04/21/2024 11:00 AM EST Office Visit Radiation Oncology at [address] [address] Radha Casiano MD [facility] [place] [address] 04/22/2024 3:00 PM EST Scheduled View Only Radiation Oncology at [address] [address] 04/23/2024 3:00 PM EST Scheduled View Only Radiation Oncology at [address] [address] 04/24/2024 3:00 PM EST Scheduled View Only Radiation Oncology at [address] [address] 04/27/2024 11:15 AM EST Scheduled View Only Radiation Oncology at [address] [address] 04/28/2024 11:30 AM EST Scheduled View Only Radiation Oncology at [address] [address] 04/28/2024 12:00 PM EST Office Visit Radiation Oncology at [address] [address] Radha Casiano MD [facility] [place] [address] 04/28/2024 2:00 PM EST Office Visit Cardiology at [address] [place] [address] Letty Montejo APRN [facility] [place] [address] 04/29/2024 11:15 AM EST Scheduled View Only Radiation Oncology at [address] [address] 04/30/2024 11:30 AM EST Scheduled View Only Radiation Oncology at [address] [address] 05/01/2024 11:15 AM EST Scheduled View Only Radiation Oncology at [address] [address] 05/04/2024 10:45 AM EST Scheduled View Only Radiation Oncology at [address] [address] 05/05/2024 1:00 PM EST Scheduled View Only Radiation Oncology at [address] [address] 05/05/2024 1:15 PM EST Office Visit Radiation Oncology at [address] [address] Radha Casiano MD [facility] [place] [address] 05/06/2024 1:00 PM EST Scheduled View Only Radiation Oncology at [address] [address] 05/07/2024 1:00 PM EST Scheduled View Only Radiation Oncology at [address] [address] 05/08/2024 1:00 PM EST Scheduled View Only Radiation Oncology at [address] [address] 05/11/2024 11:30 AM EST Scheduled View Only Radiation Oncology at [address] [address] 01/13/2025 1:00 PM EST Office Visit Hematology/Oncology at [address] [address] Lee Ann Jay MD [facility] DR HEMATOLOGY [place] [address] Leti Anderson APRN [facility] HEMATOLOGY [place] [address] documented as of this encounter Visit Diagnoses Diagnosis Colitis- Primary Other and unspecified noninfectious gastroenteritis and colitis documented in this encounter Care Teams Can Handler Relationship Specialty Start Date End Date Julia Chatterjee MD [facility] [address] [place] [address] PCP - General 01/31/10 documented as of this encounter
--- OUTSIDE RECORDS SUMMARY | 2024-04-17 01:27 | XMS_ITS | Encounter Summary ---
Author Organization [facility] Address [facility] [place] [address] Care Team Providers Care Window And Door Installer Name Role Phone Julia Chatterjee MD Primary Care Provider [phone] Encounter Details Date Type Department Care Team (Late st Contact Info) Description 12/19/2016 10:00 AM EDT Office Visit Hematology/Oncology at [address] [address] Lee Ann Jay MD [facility] DR [place] [address] Radha Cooper, JAYLEN Neutropenia, unspecified type Social [...] this encounter Progress Notes * Radha Cooper, LITHOGRAPHERS PRINTER - 12/19/2016 10:00 AM EDT Subjective: Patient ID: Leti Parry is a 66 y.o. female here for H and P prior to sedated bone marrow biopsy Patient Active Problem List Diagnosis ??? Ulcerative colitis Diagnosed around 2011. Worked with lan manager with resolution of symptoms food based supplements [...] Scheduled View Only Radiation Oncology at [address] [address] 04/20/2024 12:45 PM EST Scheduled View Only Radiation Oncology at [address] [address] 04/21/2024 10:45 AM EST Scheduled View Only Radiation Oncology at [address] [address] 04/21/2024 11:00 AM EST Office Visit Radiation Oncology at [address] [address] Radha Casiano MD [facility] [place] [address] 04/22/2024 3:00 PM EST Scheduled View Only Radiation Oncology at [address] [address] 04/23/2024 3:00 PM EST Scheduled View Only Radiation Oncology at [address] [address] 04/24/2024 3:00 PM EST Scheduled View Only Radiation Oncology at [address] [address] 04/27/2024 11:15 AM EST Scheduled View Only Radiation Oncology at [address] [address] 04/28/2024 11:30 AM EST Scheduled View Only Radiation Oncology at [address] [address] 04/28/2024 12:00 PM EST Office Visit Radiation Oncology at [address] [address] Radha Casiano MD [facility] [place] [address] 04/28/2024 2:00 PM EST Office Visit Cardiology at [address] [phone] Letty Montejo APRN [facility] [place] [address] 04/29/2024 11:15 AM EST Scheduled View Only Radiation Oncology at [address] [address] 04/30/2024 11:30 AM EST Scheduled View Only Radiation Oncology at [address] [address] 05/01/2024 11:15 AM EST Scheduled View Only Radiation Oncology at [address] [address] 05/04/2024 10:45 AM EST Scheduled View Only Radiation Oncology at [address] [address] 05/05/2024 1:00 PM EST Scheduled View Only Radiation Oncology at [address] [address] 05/05/2024 1:15 PM EST Office Visit Radiation Oncology at [address] [place] [address] Radha Casiano MD [facility] [place] [address] 05/06/2024 1:00 PM EST Scheduled View Only Radiation Oncology at [address] [address] 05/07/2024 1:00 PM EST Scheduled View Only Radiation Oncology at [address] [address] 05/08/2024 1:00 PM EST Scheduled View Only Radiation Oncology at [address] [address] 05/11/2024 11:30 AM EST Scheduled View Only Radiation Oncology at [address] [address] 01/13/2025 1:00 PM EST Office Visit Hematology/Oncology at [address] [address] Lee Ann Jay MD [facility] DR [place] [address] Leti Anderson APRN [facility] DR [place] [address] documented as of this encounter Visit Diagnoses Diagnosis Neutropenia, unspecified type documented in this encounter Care Teams Window And Door Installer Relationship Specialty Start Date End Date Julia Chatterjee MD [facility] DORADO [address] [place] [address] PCP - General 01/31/10 documented as of this encounter
--- OUTSIDE RECORDS SUMMARY | 2024-04-17 01:27 | XMS_ITS | Encounter Summary ---
Author [facility] [place] [address] Care Team Providers Care Colliery Clerk Name Role Phone Julia Chatterjee MD Primary Care Provider [phone] Encounter Details Date Type Department Care Team (Late st Contact Info) Description 11/07/2016 Orders Only Hematology/Oncology at [address] [address] Radha Cooper, TIPPLE OPERATOR Social History Tobacco Use Types Packs/Day Years [...] EST Scheduled View Only Radiation Oncology at [address] [address] 04/20/2024 12:45 PM EST Scheduled View Only Radiation Oncology at [address] [address] 04/21/2024 10:45 AM EST Scheduled View Only Radiation Oncology at [address] [address] 04/21/2024 11:00 AM EST Office Visit Radiation Oncology at [address] [address] Radha Casiano MD [facility] [place] [address] 04/22/2024 3:00 PM EST Scheduled View Only Radiation Oncology at [address] [address] 04/23/2024 3:00 PM EST Scheduled View Only Radiation Oncology at [address] [address] 04/24/2024 3:00 PM EST Scheduled View Only Radiation Oncology at [address] [address] 04/27/2024 11:15 AM EST Scheduled View Only Radiation Oncology at [address] [address] 04/28/2024 11:30 AM EST Scheduled View Only Radiation Oncology at [address] [address] 04/28/2024 12:00 PM EST Office Visit Radiation Oncology at [address] [address] Radha Casiano MD [facility] [place] [address] 04/28/2024 2:00 PM EST Office Visit Cardiology at [address] [place] [address] Letty Montejo, JAYLEN [facility] [place] [address] 04/29/2024 11:15 AM EST Scheduled View Only Radiation Oncology at [address] [address] 04/30/2024 11:30 AM EST Scheduled View Only Radiation Oncology at [address] [address] 05/01/2024 11:15 AM EST Scheduled View Only Radiation Oncology at [address] [address] 05/04/2024 10:45 AM EST Scheduled View Only Radiation Oncology at [address] [address] 05/05/2024 1:00 PM EST Scheduled View Only Radiation Oncology at [address] [address] 05/05/2024 1:15 PM EST Office Visit Radiation Oncology at [address] [address] Radha Casiano MD [facility] [place] [address] 05/06/2024 1:00 PM EST Scheduled View Only Radiation Oncology at [address] [address] 05/07/2024 1:00 PM EST Scheduled View Only Radiation Oncology at [address] [address] 05/08/2024 1:00 PM EST Scheduled View Only Radiation Oncology at [address] [address] 05/11/2024 11:30 AM EST Scheduled View Only Radiation Oncology at [address] [address] 01/13/2025 1:00 PM EST Office Visit Hematology/Oncology at [address] [address] Lee Ann Jay MD [facility] [place] [address] Leti Anderson APRN [facility] [place] [address] Scheduled Orders Name Type Priority Associated Diagnoses Orde r Schedule ([facility] MSURG)BONE MARROW ASP PERFORMED W/BX THRU BX INCISION Procedures Routine One Time f or 1 Occurrences starting 11/07/2016 until 11/07/2016 ([facility] MSURG) UNILAT BONE MARROW BIOSPY Procedures Routine One Time for 1 Occurrences starting 11/07/2016 until 11/07/2016 documented as of this encounter Visit Diagnoses Not on filedocumented in this encounter Care Teams Colliery Clerk Relationship Specialty Start Date End Date Julia Chatterjee MD [address] [place] [address] PCP - General 01/31/10 documented as of this encounter
--- OUTSIDE RECORDS SUMMARY | 2024-04-17 01:27 | XMS_ITS | Encounter Summary ---
Author Organization [facility] Address [facility] [place] [address] Care Team Providers Care Special Delivery Carrier Name Role Phone Julia Chatterjee MD Primary Care Provider [phone] Encounter Details Date Type Department Care Team (Latest Contact Info) Description 07/05/2011 9:17 AM EDT - 07/05/2011 10:45 AM EDT Hospital Encounter [place] [address] Ayaz Castro MD [facility] [place] [address] Discharge Disposition: Home Social History Tobacco Use [...] occurs please contact your M.D. Please call [phone] before 5 pm with problems, questions or concerns. After 5pm call [phone] and ask to speak with the wood casket assembler inside sales professional. Discharge instructions reviewed with patient who expresses understanding. * Patient Instructions* Ayaz Castro MD - 07/05/2011 10:24 AM EDT Please see Recommendations in the Provation procedure report which is documented in the procedural note in E-DH. * Attachments The following attachments cannot be sent through Care Everywhere. * COLONOSCOPY: WHAT TO EXPECT AT HOME (SYRIAN) documented in this encounter Medications at Time [...] Scheduled View Only Radiation Oncology at [address] [address] 04/20/2024 12:45 PM EST Scheduled View Only Radiation Oncology at [address] [address] 04/21/2024 10:45 AM EST Scheduled View Only Radiation Oncology at [address] [address] 04/21/2024 11:00 AM EST Office Visit Radiation Oncology at [address] [address] Radha Casiano MD [facility] [place] [address] 04/22/2024 3:00 PM EST Scheduled View Only Radiation Oncology at [address] [address] 04/23/2024 3:00 PM EST Scheduled View Only Radiation Oncology at [address] [address] 04/24/2024 3:00 PM EST Scheduled View Only Radiation Oncology at [address] [address] 04/27/2024 11:15 AM EST Scheduled View Only Radiation Oncology at [address] [address] 04/28/2024 11:30 AM EST Scheduled View Only Radiation Oncology at [address] [address] 04/28/2024 12:00 PM EST Office Visit Radiation Oncology at [address] [address] Radha Casiano MD [facility] [place] [address] 04/28/2024 2:00 PM EST Office Visit Cardiology at [address] [place] [address] Letty Montejo APRN [facility] [place] [address] 04/29/2024 11:15 AM EST Scheduled View Only Radiation Oncology at [address] [address] 04/30/2024 11:30 AM EST Scheduled View Only Radiation Oncology at [address] [address] 05/01/2024 11:15 AM EST Scheduled View Only Radiation Oncology at [address] [address] 05/04/2024 10:45 AM EST Scheduled View Only Radiation Oncology at [address] [address] 05/05/2024 1:00 PM EST Scheduled View Only Radiation Oncology at [address] [address] 05/05/2024 1:15 PM EST Office Visit Radiation Oncology at [address] [address] Radha Casiano MD [facility] [place] [address] 05/06/2024 1:00 PM EST Scheduled View Only Radiation Oncology at [address] [address] 05/07/2024 1:00 PM EST Scheduled View Only Radiation Oncology at [address] [address] 05/08/2024 1:00 PM EST Scheduled View Only Radiation Oncology at [address] [address] 05/11/2024 11:30 AM EST Scheduled View Only Radiation Oncology at [address] [address] 01/13/2025 1:00 PM EST Office Visit Hematology/Oncology at [address] [address] Lee Ann Jay MD [facility] DR [place] [address] Leti Anderson APRN [facility] [place] [address] documented as of this encounter Procedures Procedure [...] 12:21 PM EDT) Surgical Pathology Report ? [facility] ? Provider: ?? AYAZ CASTRO ?Pt. Name: ?? LETI PARRY ? Acc #: ?[id number] ?Pt. ? Col Date: ?? 07/05/2011 ? [...] tissues. ? Sections/Processi ng: ??(T2) ??vms/SNS ? [facility] ? Provider: ?? AYAZ CASTRO ?Pt. Name: ?? LETI PARRY ? Acc #: ?[id number] ?Pt. ? Col Date: ?? 07/05/2011 ? [...] MD PATHOLOGY/CYTOLOGY O OMI Performing Organization Address [facility][1] de Phone Number RUEL SCHULTZIUM * Specimen to Pathology (surgical or derm) (07/05/2011 10:53 AM EDT) AP Specimen 07/05/2011 10:5 3 AM EDT 07/05/2011 10:53 AM EDT Narrative RUEL SCHULTZIUM - 07/05/2011 10:53 AM EDT Specimen requisition ordered. ??Separate Pathology report to follow Ayaz Castro MD PATHOLOGY/CYTOLOGY O OMI Performing Organization Address [facility] de Phone Number RUEL SERNA * Specimen to Pathology (surgical or derm) (07/05/2011 10:53 AM EDT) AP Specimen 07/05/2011 10:5 3 AM EDT 07/05/2011 10:53 AM EDT Narrative RUEL SCHULTZIUM - 07/05/2011 10:53 AM EDT Specimen requisition ordered. ??Separate Pathology report to follow Ayaz Castro MD PATHOLOGY/CYTOLOGY O OMI Performing Organization Address [facility] de Phone Number RUEL SERNA * Specimen to Pathology (surgical or derm) (07/05/2011 10:53 AM EDT) AP Specimen 07/05/2011 10:5 3 AM EDT 07/05/2011 10:53 AM EDT Narrative RUEL SCHULTZIUM - 07/05/2011 10:53 AM EDT Specimen requisition ordered. ??Separate Pathology report to follow Ayaz Castro MD PATHOLOGY/CYTOLOGY O OMI Performing Organization Address [facility][1] de Phone Number RUEL SCHULTZIUM * COLONOSCOPY (07/05/2011 9:57 AM EDT) COLONOSCOPY [facility] Endoscopy Patient Name: Leti Parry ? Procedure Date: 07/05/2011 9:57 AM ? Date of : 1950 ? Age: 60 ? Order #: [id number] ? Procedure: ? Colonoscopy Indications: ? Screening for colorectal malignant ? neoplasm, Asymptomatic Providers: ? Ayaz Castro MD, Venkatesh Knight, ? RN, Manisha Palmer, Device Sales Consultant Referring MD: ?Julia Chatterjee MD Medicines: ? [...] SURGICAL ORD ERABLES Performing Organization Address City/State/[facility] Co de Phone Number [employer] documented in this encounter Visit Diagnoses Not on filedocumented in this encounter Active and Recently Administered Medications Times are shown in EDT. PRN Medication Order 07/03/2011 07/04/2011 07/05/2011 fentaNYL 50mcg/mL injection (CANCELED) ONCE PRN, Starting on Lulu 07/04/ at 1018, Until Lulu 07/05/11 at 1728, [...] Routine 1018 (Given - Provid er: Venkatesh nKight RN)1025 (Given - Provider: Venkatesh Knight RN)1030 (Given - Provider: Venkatesh Knight RN)1036 (Given - Provider: Venkatesh Knight RN) documented in this encounter Care Teams Special Delivery Carrier Relationship Specialty Start Date End Date Julia Chatterjee MD Sush[address] [facility] [address] [place] [address] PCP - General 01/31/10 documented as of this encounter
--- OUTSIDE RECORDS SUMMARY | 2024-04-17 01:27 | XMS_ITS | Encounter Summary ---
Author Organization [facility] Address [address] [place] [address] Care Team Providers Care Heel Sprayer First Name Role Phone Julia Chatterjee MD Primary Care Provider [phone] Encounter Details Date Type Department Care Team (Late st Contact Info) Description 08/01/2021 Lab Requisition [facility] Pathology & Laboratory Medicine - [address] [address] Outr Resulting Lab, Provider Social History Tobacco [...] 2.8 - 5.3 pg/mL 08/01/2021 17:47 EDT [facility] Blood VENOUS BLOOD / Unknown 07/31/2021 8:50 EDT 08/01/2021 17:09 EDT us Provider Outr Resulting Lab CHEMISTRY & BLOOD GA S ORDERABLES Final Result Performing Organization Address City/[facility]/ZIP Co de Phone Number [facility] [address] [place] [address] * THYROID ANTIBODIES (07/31/2021 8:50 EDT) Anti-Thyroglobulin <15 <=60 U/mL 2021 18:36 EDT [facility] Thyroperoxidase Ab <28 <=60 U/mL 2021 18:36 EDT [facility] Blood VENOUS BLOOD / Unknown 07/31/2021 8:50 EDT 08/01/2021 17:09 EDT us Provider Outr Resulting Lab CHEMISTRY & BLOOD GA S ORDERABLES Final Result [facility] [address] [place] [address] documented in this encounter Visit Diagnoses Not on filedocumented in this encounter Care Teams Heel Sprayer First Relationship Specialty Start Date End Date Julia Chatterjee MD [address] [place] [phone] PCP - General 08/13/19 documented as of this encounter
--- OUTSIDE RECORDS SUMMARY | 2024-04-17 01:27 | XMS_ITS | Encounter Summary ---
Author Organization [facility] Address [address] [place] [address] Care Team Providers Care Plant Hr Manager Name Role Phone Julia Chatterjee MD Primary Care Provider [phone] Encounter Details Date Type Department Care Team (Late st Contact Info) Description 09/30/2019 Lab Requisition [facility] Pathology & Laboratory Medicine - [address] [address] Outr Resulting Lab, Provider Social History Tobacco [...] 16.7 See Note ng/mL 10/01/2019 8:43 EDT [facility] Comment: Reference Ranges for Folate: Deficient: ?< 3.4 ng/mL Indeterminate: ??3.4 - 5.4 ng/mL Normal: ? > 5.4 ng/mL The results of this assay can be falsely elevated due to the consumption of Biotin. Blood VENOUS BLOOD / Unknown 09/29/2019 12:13 EDT 09/30/2019 21:16 EDT us Provider Outr Resulting Lab CHEMISTRY & BLOOD GA S ORDERABLES Final Result Performing Organization Address [facility] Co de Phone Number [facility] [address] [place] [address] * (ABNORMAL) VITAMIN B12 (09/29/2019 12:13 EDT) Vitamin B12 >2,000(H) 211 - 911 pg/mL 10/01/2019 9:19 EDT [facility] Blood VENOUS BLOOD / Unknown 09/29/2019 12:13 EDT 09/30/2019 21:16 EDT us Provider Outr Resulting Lab CHEMISTRY & BLOOD GA S ORDERABLES Final Result Performing Organization Address City/[facility] Co de Phone Number [facility] [address] [place] [address] documented in this encounter Visit Diagnoses Not on filedocumented in this encounter Care Teams Plant Hr Manager Relationship Specialty Start Date End Date Julia Chatterjee MD [address] [place] [phone] PCP - General 08/13/19 documented as of this encounter
--- OUTSIDE RECORDS SUMMARY | 2024-04-17 01:27 | XMS_ITS | Encounter Summary ---
Author Organization [facility] Address [facility] [place] [address] Care Team Providers Care Human Resources Benefits Manager Name Role Phone Julia Chatterjee MD Primary Care Provider [phone] Encounter Details Date Type Department Care Team (Late st Contact Info) Description 07/18/2011 Telephone [place] [address] Ana Felton, RN Social History [...] Scheduled View Only Radiation Oncology at [address] [phone] 04/20/2024 12:45 PM EST Scheduled View Only Radiation Oncology at [address] [phone] 04/21/2024 10:45 AM EST Scheduled View Only Radiation Oncology at [address] [phone] 04/21/2024 11:00 AM EST Office Visit Radiation Oncology at [address] [address] Radha Casiano MD [facility] RADIATION ONCOLOGY [place] [phone] 04/22/2024 3:00 PM EST Scheduled View Only Radiation Oncology at [address] [address] 04/23/2024 3:00 PM EST Scheduled View Only Radiation Oncology at [address] [phone] 04/24/2024 3:00 PM EST Scheduled View Only Radiation Oncology at [address] [address] 04/27/2024 11:15 AM EST Scheduled View Only Radiation Oncology at [address] [address] 04/28/2024 11:30 AM EST Scheduled View Only Radiation Oncology at [address] [address] 04/28/2024 12:00 PM EST Office Visit Radiation Oncology at [address] [address] Radha Casiano MD [facility] [place] [address] 04/28/2024 2:00 PM EST Office Visit Cardiology at [address] [place] [address] Letty Montejo, JAYLEN [facility] [place] [address] 04/29/2024 11:15 AM EST Scheduled View Only Radiation Oncology at [address] [phone] 04/30/2024 11:30 AM EST Scheduled View Only Radiation Oncology at [address] [address] 05/01/2024 11:15 AM EST Scheduled View Only Radiation Oncology at [address] [address] 05/04/2024 10:45 AM EST Scheduled View Only Radiation Oncology at [address] [address] 05/05/2024 1:00 PM EST Scheduled View Only Radiation Oncology at [address] [phone] 05/05/2024 1:15 PM EST Office Visit Radiation Oncology at [address] [address] Radha Casiano MD [facility] [place] [address] 05/06/2024 1:00 PM EST Scheduled View Only Radiation Oncology at [address] [address] 05/07/2024 1:00 PM EST Scheduled View Only Radiation Oncology at [address] [address] 05/08/2024 1:00 PM EST Scheduled View Only Radiation Oncology at [address] [address] 05/11/2024 11:30 AM EST Scheduled View Only Radiation Oncology at [address] [address] 01/13/2025 1:00 PM EST Office Visit Hematology/Oncology at [address] [address] Lee Ann Jay MD [facility] [address] [place] [address] Leti Anderson APRN [facility] [place] [address] documented as of this encounter Visit Diagnoses Not on filedocumented in this encounter Care Teams Human Resources Benefits Manager Relationship Specialty Start Date End Date Julia Chatterjee MD [facility] [address] [place] [address] PCP - General 01/31/10 documented as of this encounter
--- OUTSIDE RECORDS SUMMARY | 2024-04-17 01:28 | XMS_ITS | Encounter Summary ---
Author Organization [facility] Address [address] [place] [address] Care Team Providers Care Dude Ranch Manager Name Role Phone Unknown, Provider Primary Care Provider Delta amaya Encounter Details Date Type Department Care Team (Late st Contact Info) Description 01/28/2015 Results Only [facility]- [facility] [phone] Julia Morales MD [address] [place] [address] Social History Tobacco Use Types [...] ? AN PARRY ? Accession #: ? [id number] ? : ? 1950 (Age: 64) ??F [...] types 16,18,31,33,35, 39,45,51,52,56,58, 59,66, and 68 by service architect mediated amplification. Comments Document reviewed and electronically signed by: ? System Interface ? Report date: 02/04/2015 By the signature above, the attending physician certifies that he/she has personally conducted a gross and/or microscopic examination of the described specimens and rendered or confirmed the above diagnosis. End of Report [facility] 01/28/2015 01/31/2015 us Julia Morales MD PATHOLOGY ORDERABLES Final Resul t [facility] [address] [place] [address] documented in this encounter Visit Diagnoses Not on filedocumented in this encounter Care Teams Dude Ranch Manager Relationship Specialty Start Date End Date Unknown, Provider, PCP - General 01/14/15 08/12/19 documented as of this encounter
--- OUTSIDE RECORDS SUMMARY | 2024-04-17 01:28 | XMS_ITS | Encounter Summary ---
Author Organization [facility] Address [address] [place] [address] Care Team Providers Care Director Of Hemophilia Name Role Phone Unavailable Primary Care Provider Unavailabl e Encounter Details Date Type Department Care Team (Late st Contact Info) Description 08/04/2009 Results Only [facility] Laboratory Services - [facility] ([facility] [address] [place], [place] [address] Julia Morales MD [address] [place] [address] Social History Tobacco Use Types [...] reading/interpreti ng unformatted reports. ? Name: ? AN PARRY ? Accession #: ? [id number] ? : ? 1950 (Age: 58) ??F [...] Report ? [facility] 08/04/2009 08/05/2009 us Julia Morales MD PATHOLOGY ORDERABLES Final Resul t [facility] [address] [place] [address] documented in this encounter Visit Diagnoses Not on filedocumented in this encounter
--- OUTSIDE RECORDS SUMMARY | 2024-04-17 01:28 | XMS_ITS | Encounter Summary ---
Author Organization [facility] Address [address] [place] [address] Care Team Providers Care Savings Teller Name Role Phone Unknown, Provider Primary Care Provider Julia Arizmendi MD Primary Care Provider [phone] Encounter Details Date Type Department Care Team (Late st Contact Info) Description 08/11/2019 Lab Requisition [facility] Pathology & Laboratory Medicine - [address] [address] Outr Resulting Lab, Provider Social History Tobacco [...] Unknown 08/11/2019 12:10 EDT 08/11/2019 16:00 EDT us Provider Outr Resulting Lab MICROBIOLOGY - GENER AL ORDERABLES Final Result Performing Organization Address City/[facility] [address]/[facility] de Phone Number [facility] [address] [place] [address] * COVID-19 TESTING (08/11/2019 12:10 EDT) COVID-19 rt-PCR Result Negative Negative 08/11/2019 20:53 EDT [facility] Comment: This test has not [...] history, and epidemiological information. Performed on the [employer] instrument Performing Lab [place] [facility] 08/11/2019 20:53 EDT [facility] Swab ENTIRE NASOPHARYNX / Unknown 08/11/2019 12:10 EDT 08/11/2019 16:00 EDT us Provider Outr Resulting Lab MICROBIOLOGY - GENER AL ORDERABLES Final Result Performing Organization Address [facility] [address]/[facility] Co de Phone Number [facility] [address] [place] [address] documented in this encounter Visit Diagnoses Not on filedocumented in this encounter Care Teams Savings Teller Relationship Specialty Start Date End Date Unknown, Provider, PCP - General 01/14/15 08/12/19 Julia Chatterjee MD [address] [place] [phone] PCP - General 08/13/19 documented as of this encounter
--- OUTSIDE RECORDS SUMMARY | 2024-04-17 01:28 | XMS_ITS | Encounter Summary ---
Author Organization [facility] Address [address] [place] [address] Care Team Providers Care Director Of Academic Name Role Phone Unavailable Primary Care Provider Unavailabl e Encounter Details Date Type Department Care Team (Late st Contact Info) Description 12/12/2011 Results Only [facility] Laboratory Services - [facility] [address] [place], [place] [address] Julia Morales MD [address] [place] [address] Social History Tobacco Use Types [...] ? AN PARRY ? Accession #: ? [id number] : ? 1950 (Age: 61) ??F ?Collect [...] End of Report [facility] 12/12/2011 12/13/2011 us Julia Morales MD PATHOLOGY ORDERABLES Final Resul t [facility] [address] [place] [address] documented in this encounter Visit Diagnoses Not on filedocumented in this encounter
--- OUTSIDE RECORDS SUMMARY | 2024-04-17 01:28 | XMS_ITS | Encounter Summary ---
Author Organization [facility] Address [address] [place] [address] Care Team Providers Care Foil Spinner Name Role Phone Julia Chatterjee MD Primary Care Provider [phone] Encounter Details Date Type Department Care Team (Late st Contact Info) Description 08/13/2019 Lab Requisition [facility] Pathology & Laboratory Medicine - [address] [address] Alicia Hayes, DO [address] [place], [place] [phone] Encounter for other general examination Social History [...] - Negative for dysplasia. 08/17/2019 8:19 EDT [facility] at 0819 Attestation By the signature below, the attending physician certifies that they have 1) personally conducted a gross and/or microscopic examination of the described specimen(s), and/or personally interpreted the results of laboratory testing of the described specimen(s), and 2) personally rendered or confirmed the above diagnosis. 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 08/17/2019 8:19 EDT [facility] Clinical History Colitis, fever, abnormal CT 08/17/2019 8:19 [facility] Gross Description A. Received in formalin labelled with proper patient identification (initials L, D) and rectal Bxs are three ford-red irregular tissues ranging from 0.3 x 0.1 x 0.1 cm to 0.4 x 0.2 x 0.2 cm. Entirely submitted in A1. Jihan Duckworth 08/13/2019 16:23 08/17/2019 8:19 EDT [facility] Scanned Images 08/17/2019 8:19 [facility] Tissue SPECIMEN FROM RECTUM / Unknown 08/13/2019 11:56 EDT 08/13/2019 16:09 EDT us Alicia Hayes DO PATHOLOGY ORDERABLES Final Re sult Performing Organization Address City/State/[facility] Co de Phone Number [facility] [address] [place] [address] documented in this encounter Visit Diagnoses Diagnosis Encounter for other general examination documented in this encounter Care Teams Foil Spinner Relationship Specialty Start Date End Date Julia Chatterjee MD [address] [place] [phone] PCP - General 08/13/19 documented as of this encounter
--- OUTSIDE RECORDS SUMMARY | 2024-04-17 01:28 | XMS_ITS | Encounter Summary ---
Author Organization [facility] Address [address] [place] [address] Care Team Providers Care Methods Time Analyst Name Role Phone Unavailable Primary Care Provider Unavailabl e Encounter Details Date Type Department Care Team (Late st Contact Info) Description 05/01/2007 Results Only [facility] - [facility] [address] [place] [address] Julia Morales MD [address] [place] [phone] Social History Tobacco Use Types Packs/Day Years [...] ? AN PARRY ? Accession #: ? [id number] : ? 1950 (Age: 56) ??F ?Collect Date: ? 05/01/2007 Location: ? [facility] ? Receive Date: ? 05/01/2007 Provider: ?JULIA MORALES MD Copy to: ? Specimen/Source: ?ThinPrep Pap Test, Cervix/Endocervix, processed on Transbiomed ThinPrep Imaging System, with manual evaluation Last Menstrual Period: ? 02/09/05 Previous Gynecologic Pathology: ? Yes: 1987 Treatment History: ? Cryotherapy: 1987 Other: ? Additional clinical information: BCP in past HPVA - HPV testing requested if ASC-US on the current ThinPrep Pap test. ? SPECIMEN ADEQUACY ? Satisfactory for Evaluation - transformation zone component present GENERAL CATEGORIZATION ? Negative for Intraepithelial Lesion or Malignancy ? Document reviewed and electronically signed by: ? Clemente Montalvo, SURAJ(ASCP) ? Report Date: ??05/06/2007 10:49 End of Report [facility] 05/01/2007 05/01/2007 us Julia Morales MD PATHOLOGY ORDERABLES Final Resul t [facility] [address] [place] [address] documented in this encounter Visit Diagnoses Not on filedocumented in this encounter
--- OUTSIDE RECORDS SUMMARY | 2024-04-17 01:28 | XMS_ITS | Encounter Summary ---
Author Organization [facility] Address [address] [place] [address] Care Team Providers Care Marketing Finance Manager Name Role Phone Julia Chatterjee MD Primary Care Provider [phone] Encounter Details Date Type Department Care Team (Late st Contact Info) Description 08/16/2019 Lab Requisition [facility] Pathology & Laboratory Medicine - [address] [address] Donnie Multani MD [address] [place] [address] Social History Tobacco Use Types Packs/Day Years [...] constellatus (S. anginosus group)(A) 08/18/2019 11:21 EDT [facility] Organism (organism) WHOLE BLOOD / Unknown 08/12/2019 14:20 EDT 08/16/2019 17:00 EDT us Donnie Multani MD MICROBIOLOGY - GENERAL ORDERAB LES Final Result [facility] [address] [place] [address] documented in this encounter Visit Diagnoses Not on filedocumented in this encounter Care Teams Marketing Finance Manager Relationship Specialty Start Date End Date Julia Chatterjee MD [address] [place] [phone] PCP - General 08/13/19 documented as of this encounter
[2024-04-17 15:39] LABS: Abs Immature Grans 0.05 10^3/uL (0.0-0.06); Absolute Basophil Count 0.01 10^3/uL (0.0-0.2); Absolute Eosinophil Count 0.01 10^3/uL (0.0-0.7); Absolute Lymphocyte Count 0.97 10^3/uL (1.2-3.4); Absolute Monocyte Count 0.45 10^3/uL (0.1-0.8); Basophils % 0.6 %; Eosinophils % 0.6 %; HCT 40.3 % (36.0-46.0); HGB 12.7 g/dL (11.2-15.7); Immature Grans % 2.9 %; Lymphocytes % 56.4 %; MCH 28.7 pg (27.0-33.0); MCHC 31.5 % (32.0-36.0); MCV 91 fL (80-95); MPV 9.3 fL (8.0-11.0); Monocytes % 26.2 %; Neutrophils % 13.3 %; Platelet Count 193 10^3/uL (130-400); RBC 4.43 10^6/uL (3.93-5.22); RDW 13.1 % (11.7-14.6)
[2024-04-17 15:48] LABS: Absolute Neutrophil Count 0.23 10^3/uL (1.2-6.7); WBC 1.72 10^3/uL (4.4-10.8)
[2024-04-17 15:57] LABS: Diff Comment Diff Reviewed; RBC Morphology Normal
== END 2024-04-17 01:18 | disposition home or self-care (01) ==
PROVIDERS: PCP Family Medicine; Visit Provider Radiology Radiation Oncology
DX: C50.411 Malignant neoplasm of upper-outer quadrant of right female breast (principal); Z17.0 Estrogen receptor positive status [ER+]
CPT/HCPCS: 36415; 85025

== ENCOUNTER 2024-04-30 01:15 | Outpatient (CLI) | payer MEDICARE, BC, SELFPAY ==
[2024-04-30 11:28] LABS: Abs Immature Grans 0.03 10^3/uL (0.0-0.06); Absolute Basophil Count 0.01 10^3/uL (0.0-0.2); Absolute Lymphocyte Count 0.53 10^3/uL (1.2-3.4); Absolute Monocyte Count 0.29 10^3/uL (0.1-0.8); HCT 38.9 % (36.0-46.0); HGB 12.8 g/dL (11.2-15.7); Immature Grans % 2.9 %; MCHC 32.9 % (32.0-36.0); MCV 88 fL (80-95); MPV 9.9 fL (8.0-11.0); Monocytes % 28.4 %; Neutrophils % 15.7 %; Platelet Count 225 10^3/uL (130-400); RBC 4.42 10^6/uL (3.93-5.22); RDW 12.7 % (11.7-14.6); RDW-SD 41.2 fL
[2024-04-30 12:00] LABS: Absolute Neutrophil Count 0.16 10^3/uL (1.2-6.7); Diff Comment Agrees w/ Instrument; RBC Morphology Normal; WBC 1.02 10^3/uL (4.4-10.8)
== END 2024-04-30 01:16 | disposition home or self-care (01) ==
LOC: LBO 01:15
PROVIDERS: PCP Family Medicine; Visit Provider Radiology Radiation Oncology
DX: C50.411 Malignant neoplasm of upper-outer quadrant of right female breast (principal)
CPT/HCPCS: 36415; 85025

== ENCOUNTER 2024-05-11 02:08 | Outpatient (CLI) | payer MEDICARE, BC, SELFPAY ==
[2024-05-11 11:34] LABS: Abs Immature Grans 0.04 10^3/uL (0.0-0.06); Absolute Basophil Count 0.01 10^3/uL (0.0-0.2); Absolute Eosinophil Count 0.01 10^3/uL (0.0-0.7); HCT 42.9 % (36.0-46.0); HGB 13.6 g/dL (11.2-15.7); MCH 28.4 pg (27.0-33.0); MCHC 31.7 % (32.0-36.0); MCV 90 fL (80-95); MPV 9.6 fL (8.0-11.0); Platelet Count 186 10^3/uL (130-400); RBC 4.79 10^6/uL (3.93-5.22); RDW-SD 42.6 fL
[2024-05-11 11:54] LABS: Absolute Lymphocyte Count 0.53 10^3/uL (1.2-3.4)
[2024-05-11 11:55] LABS: Metamyelocytes % 3; Myelocytes % 1
[2024-05-11 11:56] LABS: Diff Comment Manual Differential; RBC Morphology Normal
[2024-05-11 12:01] LABS: WBC 0.99 10^3/uL (4.4-10.8)
== END 2024-05-11 02:09 | disposition home or self-care (01) ==
PROVIDERS: PCP Family Medicine; Visit Provider Nurse Practitioner Adult Health
DX: C91.Z0 Other lymphoid leukemia not having achieved remission (principal)
CPT/HCPCS: 36415; 73090; 73100; 73130; 85025

== ENCOUNTER 2024-05-11 17:25 | Outpatient (CLI) | payer MEDICARE, BC, SELFPAY ==
--- NOTE | 2024-05-11 13:40 | DI.RAD_ITS ---
Exam(s) XR FOREARM RT EXAM: XR FOREARM RT CLINICAL HISTORY: PAIN RT HAND, PAIN RT WRIST, SWELLING RT UPPER EXT,M79.641, M25.531, M79.89. TECHNIQUE: 2D digital imaging was performed. Two views. COMPARISON: CR XR DEXA BONE DENSITY W/WO MIGUEL from 01/05/2022 FINDINGS: BONES: No acute fracture is present. No bony destructive lesion is seen. Visualized portion of elbow shows mild spurring at the olecranon and coronoid process. The wrist is unremarkable. SOFT TISSUE: Normal. IMPRESSION: Mild degenerative changes. DATA REPOSITORY: RADIATION DOSE DELIVERED:
--- NOTE | 2024-05-11 13:40 | DI.RAD_ITS ---
Exam(s) XR HAND RT COMPLETE XR WRIST RT LIMITED EXAM: XR WRIST RT LIMITED CLINICAL HISTORY: PAIN RT HAND, PAIN RT WRIST, SWELLING RT UPPER EXT,M79.641, M25.531, M79.89. TECHNIQUE: 2D digital imaging was performed. Three views of the hand. Two views of the wrist. COMPARISON: CR XR HAND RT COMPLETE from 05/11/2024 FINDINGS: BONES: No acute fracture is present. No bony destructive lesion is seen. JOINTS: The carpal bones are normally aligned. Minimal degenerative changes of the interphalangeal joints. SOFT TISSUE: Normal. IMPRESSION: Minimal degenerative changes of the interphalangeal joints. DATA REPOSITORY: RADIATION DOSE DELIVERED:
== END 2024-05-11 17:45 ==
LOC: DI 17:27
PROVIDERS: PCP Family Medicine; Visit Provider Radiology Radiation Oncology
DX: M25.531 Pain in right wrist (principal); M25.641 Stiffness of right hand, not elsewhere classified; M79.89 Other specified soft tissue disorders
CPT/HCPCS: 36415; 73090; 73100; 73130; 85025

== ENCOUNTER 2024-05-13 01:52 | Outpatient (CLI) | payer MEDICARE, BC, SELFPAY ==
--- NOTE | 2024-05-13 | DI.US_ITS ---
Exam(s) US UPPER EXTREMITY VENOUS RT EXAM: US UPPER EXTREMITY VENOUS RT CLINICAL HISTORY: M79.641,M25.531,M79.89 pain of rt hand, Pain in right wrist, Swelling of TECHNIQUE: GRAYSCALE, COLOR, DOPPLER IMAGING OF THE VENOUS SYSTEM OF THE UPPER EXTREMITY-RIGHT COMPARISON: None FINDINGS: Basilic vein: Patent. Normal color-flow and normal compression and augmentation properties. Brachial vein(s):Patent. Normal color flow. Normal compression and augmentation properties. Cephalic vein:Patent. Normal color flow. Normal compression and augmentation properties. Axillary vein: Patent. Normal color flow. Normal compression and augmentation properties. Visualized subclavian vein: Patent. No obvious intraluminal thrombus. IMPRESSION: 1. No evidence of venous thrombosis in the right upper extremity. 2. DATA REPOSITORY:
== END 2024-05-13 02:12 ==
LOC: DI 01:52
PROVIDERS: PCP Family Medicine; Visit Provider Radiology Radiation Oncology
DX: M79.641 Pain in right hand (principal); M25.531 Pain in right wrist; M79.89 Other specified soft tissue disorders
CPT/HCPCS: 93971

== ENCOUNTER 2024-05-18 04:18 | Outpatient (CLI) | payer MEDICARE, BC, SELFPAY ==
[2024-05-18 07:40] LABS: Abs Immature Grans 0.08 10^3/uL (0.0-0.06); Absolute Lymphocyte Count 0.95 10^3/uL (1.2-3.4); Absolute Neutrophil Count 0.62 10^3/uL (1.2-6.7); HCT 41.8 % (36.0-46.0); HGB 13.3 g/dL (11.2-15.7); Immature Grans % 3.4 %; Lymphocytes % 40.4 %; MCH 28.6 pg (27.0-33.0); MCHC 31.8 % (32.0-36.0); MCV 90 fL (80-95); MPV 9.9 fL (8.0-11.0); Monocytes % 29.8 %; Neutrophils % 26.4 %; Platelet Count 173 10^3/uL (130-400); RBC 4.65 10^6/uL (3.93-5.22); RDW 13.2 % (11.7-14.6); RDW-SD 43.4 fL; WBC 2.35 10^3/uL (4.4-10.8)
[2024-05-18 08:02] LABS: Diff Comment Diff Reviewed; RBC Morphology Normal
== END 2024-05-18 04:19 | disposition home or self-care (01) ==
PROVIDERS: Internal Medicine Hematology & Oncology; PCP Family Medicine; Visit Provider Nurse Practitioner Adult Health
DX: C91.Z0 Other lymphoid leukemia not having achieved remission (principal)
CPT/HCPCS: 36415; 85025

== ENCOUNTER 2024-05-25 02:02 | Outpatient (CLI) | payer MEDICARE, BC, SELFPAY ==
[2024-05-25 15:26] LABS: Abs Immature Grans 0.12 10^3/uL (0.0-0.06); HCT 40.5 % (36.0-46.0); HGB 12.9 g/dL (11.2-15.7); MCH 28.4 pg (27.0-33.0); MCHC 31.9 % (32.0-36.0); MCV 89 fL (80-95); MPV 9.9 fL (8.0-11.0); RBC 4.55 10^6/uL (3.93-5.22); RDW 13.4 % (11.7-14.6); RDW-SD 43.8 fL
[2024-05-25 16:01] LABS: Absolute Lymphocyte Count 0.66 10^3/uL (1.2-3.4); Absolute Monocyte Count 0.36 10^3/uL (0.1-0.8); Absolute Neutrophil Count 0.77 10^3/uL (1.2-6.7); Atypical Lymphocytes % 1 %
[2024-05-25 16:06] LABS: Diff Comment Manual Differential; Platelet Count 157 10^3/uL (130-400); RBC Morphology Normal
[2024-05-25 16:12] LABS: WBC 1.78 10^3/uL (4.4-10.8)
== END 2024-05-25 02:03 | disposition home or self-care (01) ==
PROVIDERS: PCP Family Medicine; Visit Provider Nurse Practitioner Adult Health
DX: C91.Z0 Other lymphoid leukemia not having achieved remission (principal)
CPT/HCPCS: 36415; 85025

== ENCOUNTER 2024-05-28 01:34 | Outpatient (CLI) | payer MEDICARE, BC, SELFPAY ==
[2024-05-28 07:47] LABS: Abs Immature Grans 0.04 10^3/uL (0.0-0.06); Absolute Basophil Count 0.01 10^3/uL (0.0-0.2); Absolute Lymphocyte Count 0.59 10^3/uL (1.2-3.4); Absolute Monocyte Count 0.51 10^3/uL (0.1-0.8); Absolute Neutrophil Count 1.14 10^3/uL (1.2-6.7); Basophils % 0.4 %; HCT 41.5 % (36.0-46.0); HGB 12.9 g/dL (11.2-15.7); Immature Grans % 1.7 %; Lymphocytes % 25.8 %; MCH 28.5 pg (27.0-33.0); MCHC 31.1 % (32.0-36.0); MCV 92 fL (80-95); MPV 9.9 fL (8.0-11.0); Monocytes % 22.3 %; Neutrophils % 49.8 %; Platelet Count 171 10^3/uL (130-400); RBC 4.52 10^6/uL (3.93-5.22); RDW 13.8 % (11.7-14.6); RDW-SD 46.3 fL; WBC 2.29 10^3/uL (4.4-10.8)
[2024-05-28 07:59] LABS: ALT 30 U/L (14-59); AST 27 U/L (15-37); Albumin 3.7 g/dL (3.4-5.0); Alkaline Phosphatase 104 U/L (46-116); BUN 11 mg/dL (7-18); Bilirubin, Total 0.4 mg/dL (0.2-1.0); CREATININE 0.8 mg/dL (0.55-1.02); Calcium 9.2 mg/dL (8.5-10.1); Chloride 104 mmol/L (98-107); Estimated GFR 78.24 (mL/min/1.73m2); Glucose 102 mg/dL (74-106); Potassium 4.6 mmol/L (3.5-5.1); Sodium 142 mmol/L (136-145); Total Protein 8.1 g/dL (6.4-8.2)
== END 2024-05-28 01:35 | disposition home or self-care (01) ==
PROVIDERS: PCP Family Medicine; Visit Provider Nurse Practitioner Adult Health
DX: C91.Z0 Other lymphoid leukemia not having achieved remission (principal)
CPT/HCPCS: 36415; 80053; 85025

== ENCOUNTER 2024-06-24 02:20 | Outpatient (CLI) | payer MEDICARE, BC, SELFPAY ==
[2024-06-24 09:12] LABS: Abs Immature Grans 0.02 10^3/uL (0.0-0.06); Absolute Basophil Count 0.01 10^3/uL (0.0-0.2); Absolute Lymphocyte Count 0.89 10^3/uL (1.2-3.4); Absolute Monocyte Count 0.47 10^3/uL (0.1-0.8); Basophils % 0.6 %; HCT 43.7 % (36.0-46.0); HGB 13.7 g/dL (11.2-15.7); Immature Grans % 1.2 %; Lymphocytes % 54.6 %; MCH 28.6 pg (27.0-33.0); MCHC 31.4 % (32.0-36.0); MCV 91 fL (80-95); MPV 9.6 fL (8.0-11.0); Monocytes % 28.8 %; Neutrophils % 14.8 %; Platelet Count 188 10^3/uL (130-400); RBC 4.79 10^6/uL (3.93-5.22); RDW 13.1 % (11.7-14.6); RDW-SD 44.6 fL
[2024-06-24 09:33] LABS: Diff Comment Diff Reviewed; Poikilocytes 1+
[2024-06-24 09:37] LABS: Absolute Neutrophil Count 0.24 10^3/uL (1.2-6.7); WBC 1.63 10^3/uL (4.4-10.8)
== END 2024-06-24 02:21 | disposition home or self-care (01) ==
PROVIDERS: PCP Family Medicine; Visit Provider Nurse Practitioner Adult Health
DX: C91.Z0 Other lymphoid leukemia not having achieved remission (principal)
CPT/HCPCS: 36415; 85025

== ENCOUNTER 2024-10-30 18:26 | Outpatient (REF) | payer MEDICARE, BC, SELFPAY ==
[2024-10-30 15:44] LABS: Abs Immature Grans 0.07 10^3/uL (0.0-0.06); HCT 41.3 % (36.0-46.0); HGB 13.0 g/dL (11.2-15.7); Immature Grans % 4.9 %; MCH 28.5 pg (27.0-33.0); MCHC 31.5 % (32.0-36.0); MCV 91 fL (80-95); MPV 9.9 fL (8.0-11.0); Platelet Count 250 10^3/uL (130-400); RBC 4.56 10^6/uL (3.93-5.22); RDW 13.2 % (11.7-14.6); RDW-SD 43.4 fL
[2024-10-30 16:08] LABS: WBC 1.43 10^3/uL (4.4-10.8)
[2024-10-30 16:09] LABS: RBC Morphology Normal
[2024-10-30 16:35] LABS: C-Reactive Protein 1.77 mg/dL (<or=0.5)
[2024-11-02 11:26] LABS: Lyme Ab w Rflx to Lyme Confirm Positive (Negative)
[2024-11-02 15:14] LABS: Lyme IgG Ab Negative (Negative)
== END 2024-10-30 18:27 | disposition home or self-care (01) ==
LOC: LBN 18:26
PROVIDERS: PCP Family Medicine; Visit Provider Nurse Practitioner Family
DX: M25.462 Effusion, left knee (principal)
CPT/HCPCS: 86617; 85025; 86140; 86618

== ENCOUNTER 2024-10-30 19:19 | Outpatient (CLI) | payer MEDICARE, BC, SELFPAY ==
--- NOTE | 2024-10-30 13:20 | DI.RAD_ITS ---
Exam(s) XR KNEE LT 3V AP,LAT,TANI EXAM: XR KNEE LT 3V AP,LAT,TANI CLINICAL HISTORY: Swelling of joint of lt knee, M25.462, Lt joint effusion. TECHNIQUE: 2D digital imaging was performed. COMPARISON: CR XR KNEE LT 4V AP,LAT,TANI,PAT from 09/23/2020 FINDINGS: 3 views No evidence of acute fracture but there is a significant size joint effusion signifying probable internal derangement. There are only mild degenerative changes. No osteochondral defects seen. No loose intra-articular bodies. Bone density normal. No osseous lesions. IMPRESSION: No acute osseous findings. However, there is a significant size joint effusion which signifies a presence of an internal derangement. Further study recommended. DATA REPOSITORY: RADIATION DOSE DELIVERED:
== END 2024-10-30 19:39 ==
LOC: DI 19:20
PROVIDERS: PCP Family Medicine; Visit Provider Nurse Practitioner Family
DX: M25.462 Effusion, left knee (principal)
CPT/HCPCS: 73562

== ENCOUNTER 2024-11-11 18:15 | Outpatient (REF) | payer MEDICARE, SELFPAY ==
[2024-11-11 21:22] LABS: Uric Acid 3.9 mg/dL (2.6-6.0)
== END 2024-11-11 18:16 | disposition home or self-care (01) ==
LOC: NCHCN 18:15
PROVIDERS: PCP Family Medicine; Visit Provider Family Medicine
DX: M25.462 Effusion, left knee (principal)
CPT/HCPCS: 86200; 84550; 86038; 86225; 86235; 86431